=== PATIENT | male | born 1975 | race Caucasian/White ===

== ENCOUNTER 2017-04-12 05:47 | Observation (INO) | payer BC, MEDICAID ==
[~2017-04-12] VITALS: Ht 177.8 cm; Wt 92.0 kg
[2017-04-12] VITALS (8 sets, daily range): BP systolic 109–138; BP diastolic 68–89; PULSE 71–97; RESP 16–20; TEMP 98.1–98.9; O2SAT 93–96
--- NOTE | 2017-04-12 06:11 | PD ---
HPI Chief Complaint: Chest Pain Time Seen by Provider: 05:58 Travel History International Travel<30 days: No Contact w/Intl Traveler<30days: No Traveled to known affect area: No History of Present Illness HPI This patient complains of chest pain. Duration 24 hours. It's constant and right sided and feels like an ache and a squeeze. Is not exertional. He has had a productive cough for 2 weeks. He is not short of breath. No fever. Denies injury. Denies history of cardiac disease. Severity symptoms is moderate. No alleviating factors. No exacerbating factors. PFSH Past Medical History Asthma: Yes Diminished Hearing: No Past Surgical History Surgical History: No Previous Surgery Social History Alcohol Use: No Tobacco Use: Yes (OCC CIGARS ) Substance Use: No Allergies-Medications (Allergen,Severity, Reaction): Coded Allergies: No Known Allergies (Unverified , 04/12/17) Reported Meds & Prescriptions Reported Meds & Active Scripts Active No Active Prescriptions or Reported Medications Review of Systems General / Constitutional: No: Fever Eyes: No: Visual changes HENT: No: Headaches Cardiovascular: Positive: Chest Pain or Discomfort Respiratory: Positive: Cough, No: Shortness of Breath Gastrointestinal: No: Abdominal Pain Genitourinary: No: Dysuria Musculoskeletal: No: Pain Skin: No Rash Neurologic: No: Weakness Psychiatric: No: Depression Endocrine: No: Polydipsia Hematologic/Lymphatic: No: Easy Bruising Physical Exam Narrative GENERAL: Well-nourished, well-developed patient in no apparent distress. SKIN: Focused skin assessment reveals no rash and nodules. Skin is Warm and dry. HEAD: Atraumatic. Normocephalic. EYES: Pupils equal and round. No scleral icterus. No injection or drainage. ENT: No nasal bleeding or discharge. Mucous membranes pink and moist. NECK: Trachea midline. No JVD. CARDIOVASCULAR: Regular rate and rhythm. No murmur appreciated. RESPIRATORY: No accessory muscle use. Clear to auscultation. Breath sounds equal bilaterally. GASTROINTESTINAL: Abdomen soft, non-tender, nondistended. Hepatic and splenic margins not palpable. MUSCULOSKELETAL: No obvious deformities. No clubbing. No cyanosis. No edema. NEUROLOGICAL: Awake and alert. No obvious cranial nerve deficits. Motor grossly within normal limits. Normal speech. PSYCHIATRIC: Appropriate mood and affect; insight and judgment normal. Data Data Last Documented VS Vital Signs Date Time Temp Pulse Resp B/P (MAP) Pulse Ox O2 Delivery O2 Flow Rate FiO2 04/12/17 06:06 18 96 04/12/17 05:56 86 04/12/17 05:48 98.1 Room Air Orders Orders Electrocardiogram (04/12/17 06:04) Basic Metabolic Panel (Bmp) (04/12/17 06:04) Ckmb (Isoenzyme) Profile (04/12/17 06:04) Complete Blood Count With Diff (04/12/17 06:04) Prothrombin Time / Inr (Pt) (04/12/17 06:04) Act Partial Throm Time (Ptt) (04/12/17 06:04) Troponin I (04/12/17 06:04) Chest, Single Ap (04/12/17 06:04) Ecg Monitoring (04/12/17 06:04) Bilateral Bp Monitoring (04/12/17 06:04) Iv Access Insert/Monitor (04/12/17 06:04) Oximetry (04/12/17 06:04) Aspirin (Aspirin) (04/12/17 06:15) Sodium Chloride 0.9% Flush (Ns Flush) (04/12/17 06:15) Labs Laboratory Tests Test 04/12/17 06:15 White Blood Count 6.5 TH/MM3 Red Blood Count 5.11 MIL/MM3 Hemoglobin 14.7 GM/DL Hematocrit 41.8 % Mean Corpuscular Volume 81.8 FL Mean Corpuscular Hemoglobin 28.7 PG Mean Corpuscular Hemoglobin Concent 35.1 % Red Cell Distribution Width 13.4 % Platelet Count 226 TH/MM3 Mean Platelet Volume 7.3 FL Neutrophils (%) (Auto) 66.4 % Lymphocytes (%) (Auto) 19.6 % Monocytes (%) (Auto) 10.3 % Eosinophils (%) (Auto) 3.1 % Basophils (%) (Auto) 0.6 % Neutrophils # (Auto) 4.3 TH/MM3 Lymphocytes # (Auto) 1.3 TH/MM3 Monocytes # (Auto) 0.7 TH/MM3 Eosinophils # (Auto) 0.2 TH/MM3 Basophils # (Auto) 0.0 TH/MM3 CBC Comment DIFF FINAL Differential Comment Prothrombin Time 10.9 SEC Prothromb Time International Ratio 1.0 RATIO Activated Partial Thromboplast Time 29.3 SEC MDM Medical Decision Making Medical Screen Exam Complete: Yes Emergency Medical Condition: Yes Medical Record Reviewed: Yes Differential Diagnosis Differential diagnosis includes ME, angina, pericarditis, pleurisy, GERD, anxiety. Narrative Course I have reviewed the patient's electronic medical record. Patient is never been here before no prior EKGs to compare IV placed I reviewed the EKG which shows sinus rhythm but no ST elevation or ectopy I reviewed the chest x-ray which is normal Extended cardiac monitoring shows sinus rhythm without ectopy CBC is normal Metabolic profile pending CK pending Troponin pending Coagulation studies are normal I gave him an aspirin Case checked out to 7 AM physician will assist with disposition Diagnosis Primary Impression: Chest pain Qualified Codes: R07.9 - Chest pain, unspecified Scripts No Active Prescriptions or Reported Meds Robin Pereira MD Apr 12, 2017 06:11
[2017-04-12] MEDS ORDERED: SODIUM CHLORIDE 0.9% FLUSH 10 ML FLUSH IVF PRN (06:15)
[2017-04-12] MEDS ORDERED: ASPIRIN 325 MG TAB PO ONE (06:15)
[2017-04-12 06:24] LABS: AUTOMATED NEUTROPHIL # 4.3 TH/MM3 (1.8-7.7); BASOPHIL % 0.6 % (0.0-2.0); EOSINOPHIL # 0.2 TH/MM3 (0-0.4); EOSINOPHIL % 3.1 % (0.0-4.0); HEMATOCRIT 41.8 % (39.0-51.0); HEMO FLAGS DIFF FINAL; LYMPH % 19.6 % (9.0-44.0); LYMPHOCYTE # 1.3 TH/MM3 (1.0-4.8); MEAN CELL VOLUME 81.8 FL (80.0-100.0); MEAN CORPUSCULAR HEMOGLOBIN 28.7 PG (27.0-34.0); MEAN CORPUSCULAR HGB CONC 35.1 % (32.0-36.0); MONO % 10.3 % (0.0-8.0); NEUT % 66.4 % (16.0-70.0); PLATELET COUNT 226 TH/MM3 (150-450); RED BLOOD COUNT 5.11 MIL/MM3 (4.50-5.90); RED CELL DISTRIBUTION WIDTH 13.4 % (11.6-17.2); WHITE BLOOD COUNT 6.5 TH/MM3 (4.0-11.0)
[2017-04-12 06:33] LABS: APTT (PATIENT) 29.3 SEC (24.3-30.1); PROTHROMBIN TIME - PATIENT 10.9 SEC (9.8-11.6)
--- NOTE | 2017-04-12 06:33 | RADRPT ---
EXAM DATE/TIME: 04/12/2017 06:13 [facility] COMPARISON: No previous studies available for comparison. INDICATIONS : Chest pain. MEDICAL HISTORY : Asthma SURGICAL HISTORY : None. ENCOUNTER: Initial ACUITY: 1 day PAIN SCORE: 7/10 LOCATION: Right chest FINDINGS: A single view of the chest demonstrates the lungs to be symmetrically aerated without evidence of mas s, infiltrate or effusion. The cardiomediastinal contours are unremarkable. Osseous structures are intact. CONCLUSION: No acute disease. Terence Dominguez MD on April 12, 2017 at 6:29 Board Certified Radiologist. This report was verified electronically.
[2017-04-12 06:54] LABS: ANION GAP 5 MEQ/L (5-15); BICARBONATE 27.6 MEQ/L (21.0-32.0); BLOOD UREA NITROGEN 17 MG/DL (7-18); CHLORIDE 105 MEQ/L (98-107); GLOMERULAR FILTRATION RATE 90 ML/MIN (>89); POTASSIUM 4.3 MEQ/L (3.5-5.1); SODIUM (NA) 138 MEQ/L (136-145)
[2017-04-12 06:58] LABS: CREATINE KINASE 106 U/L (39-308)
[2017-04-12 07:10] LABS: CKMB 1.2 NG/ML (0.5-3.6)
[2017-04-12] MEDS ORDERED: KETOROLAC TROMETHAMINE 30 MG/ML (IVP) VIAL IV PUSH ONE (07:30)
--- NOTE | 2017-04-12 07:33 | PD ---
Physical Exam Date Seen by Provider: Apr 12, 2017 Time Seen by Provider: 07:00 Narrative The patient was signed out to me by Dr. Saqib becker. The patient presents with 24-hour history of right sided chest pain. The patient has a history of hyperlipidemia and is not been treated. Patient also has a strong family history for cardiac disease. Initial EKG showed what appears to be early repolarization. First set of cardiac enzymes show no evidence of acute abnormalities. Data Data Last Documented VS Vital Signs Date Time Temp Pulse Resp B/P (MAP) Pulse Ox O2 Delivery O2 Flow Rate FiO2 04/12/17 07:21 71 19 117/71 (86) 96 Room Air 04/12/17 05:48 98.1 Orders Orders Electrocardiogram (04/12/17 06:04) Basic Metabolic Panel (Bmp) (04/12/17 06:04) Ckmb (Isoenzyme) Profile (04/12/17 06:04) Complete Blood Count With Diff (04/12/17 06:04) Prothrombin Time / Inr (Pt) (04/12/17 06:04) Act Partial Throm Time (Ptt) (04/12/17 06:04) Troponin I (04/12/17 06:04) Chest, Single Ap (04/12/17 06:04) Ecg Monitoring (04/12/17 06:04) Bilateral Bp Monitoring (04/12/17 06:04) Iv Access Insert/Monitor (04/12/17 06:04) Oximetry (04/12/17 06:04) Aspirin (Aspirin) (04/12/17 06:15) Sodium Chloride 0.9% Flush (Ns Flush) (04/12/17 06:15) CKMB (04/12/17 06:15) CKMB% (04/12/17 06:15) Ketorolac Inj (Toradol Inj) (04/12/17 07:30) Labs Laboratory Tests Test 04/12/17 06:15 White Blood Count 6.5 TH/MM3 Red Blood Count 5.11 MIL/MM3 Hemoglobin 14.7 GM/DL Hematocrit 41.8 % Mean Corpuscular Volume 81.8 FL Mean Corpuscular Hemoglobin 28.7 PG Mean Corpuscular Hemoglobin Concent 35.1 % Red Cell Distribution Width 13.4 % Platelet Count 226 TH/MM3 Mean Platelet Volume 7.3 FL Neutrophils (%) (Auto) 66.4 % Lymphocytes (%) (Auto) 19.6 % Monocytes (%) (Auto) 10.3 % Eosinophils (%) (Auto) 3.1 % Basophils (%) (Auto) 0.6 % Neutrophils # (Auto) 4.3 TH/MM3 Lymphocytes # (Auto) 1.3 TH/MM3 Monocytes # (Auto) 0.7 TH/MM3 Eosinophils # (Auto) 0.2 TH/MM3 Basophils # (Auto) 0.0 TH/MM3 CBC Comment DIFF FINAL Differential Comment Prothrombin Time 10.9 SEC Prothromb Time International Ratio 1.0 RATIO Activated Partial Thromboplast Time 29.3 SEC Blood Urea Nitrogen 17 MG/DL Creatinine 0.92 MG/DL Random Glucose 109 MG/DL Calcium Level 8.7 MG/DL Sodium Level 138 MEQ/L Potassium Level 4.3 MEQ/L Chloride Level 105 MEQ/L Carbon Dioxide Level 27.6 MEQ/L Anion Gap 5 MEQ/L Estimat Glomerular Filtration Rate 90 ML/MIN Total Creatine Kinase 106 U/L Creatine Kinase MB 1.2 NG/ML Troponin I LESS THAN 0.02 NG/ML [facility] Medical Record Reviewed: Yes Supervised Visit with FERNANDO: No Differential Diagnosis Muscle skeletal pain versus GERD versus ACS Narrative Course Due to year-old male history of hyperlipidemia, family history, presents today with points of right sided chest pain. Pains been there for 24 hours. EKG shows what appears to be early repolarization. Cardiac enzymes are within normal limits. I discussed with the patient the different types of chest pain. While his pain is atypical, he still has uncontrolled hyperlipidemia. Also with his family history, we will make him to the chest pain center for rule out protocol. Diagnosis Primary Impression: Chest pain Qualified Codes: R07.9 - Chest pain, unspecified Additional Impression: uncontrolled hyperlipidemia Admitting Information Admitting Physician Requests: Observation Scripts No Active Prescriptions or Reported Meds Ramy Robertson MD Apr 12, 2017 07:33
[2017-04-12] MEDS ORDERED: RESP: ALBUTEROL 2.5 MG/3 ML NEB (SCH) NEB ONE (07:45)
[2017-04-12] MEDS ORDERED: NITROGLYCERIN 0.4 MG SL 25 TABS/BTL SL PRN (08:00)
[2017-04-12] MEDS ORDERED: ACETAMINOPHEN 500 MG CPLT PO PRN (08:00)
[2017-04-12] MEDS ORDERED: ONDANSETRON HCL 4 MG/2 ML VIAL IV PUSH PRN (08:00)
[2017-04-12] MEDS ORDERED: SODIUM CHLORIDE 0.9% FLUSH 10 ML FLUSH IV FLUSH SCH (09:00)
--- NOTE | 2017-04-12 09:31 | HHI.HP ---
HPI Primary Care Physician No Primary Care Physician Chief Complaint Right sided chest pain and cough History of Present Illness 42 yo male awoke yesterday with right sided chest pain described as a 7/10 that persisted all day up till about 4 p.m. and gradually resolved. He awoke again this a.m. with the same pain an presented to the ED. He denies SOB, N&v, diaphoresis or other related symptoms. The pain is not worsened by exercise or relieved by rest. He has had a cough for the last 2-3 weeks productive of thick globby yellow sputum. His two children have also recently had a cough but on evaluation in the ED told it was "an allergy". He had had no chills or fever. 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 Review of Systems Respiratory: COMPLAINS OF: See HPI, Cough Cardiovascular: COMPLAINS OF: See HPI Musculoskeletal: COMPLAINS OF: Back pain bump on back of head Past Family Social History Allergies: Coded Allergies: No Known Allergies (Unverified , 04/12/17) Past Medical History None other than some chronic back pain due to herniated disks L4, L5 followed by a Chiropractor Past Surgical History None Reported Medications None Reported Meds & Active Scripts Active No Active Prescriptions or Reported Medications Active Ordered Medications Current Medications Medications (Trade) Dose Ordered Sig/Suzan Route Start Time Stop Time Status Last Admin (NS Flush) 2 ml UNSCH PRN IVF 04/12/17 06:15 (NS Flush) 2 ml BID IV FLUSH 04/12/17 09:00 04/12/17 08:50 (Tylenol) 500 mg Q4H PRN PO 04/12/17 08:00 (Zofran Inj) 4 mg Q6H PRN IV PUSH 04/12/17 08:00 (Nitrostat Sl) 0.4 mg Q5M PRN SL 04/12/17 08:00 (Aspirin) 325 mg DAILY PO 04/13/17 09:00 Family History Father of an OK at age 52 Mother living and well 2 brothers living and well Social History Denies alcohol, tobacco (other than an occasional cigar) and any illicit substances Works at [employer] with 2 children Physical Exam Vital Signs Vital Signs Date Time Temp Pulse Resp B/P (MAP) Pulse Ox O2 Delivery O2 Flow Rate FiO2 04/12/17 08:51 98.2 97 20 124/89 (101) 93 04/12/17 08:19 (86) 21 04/12/17 07:59 95 21 04/12/17 07:21 71 19 117/71 (86) 96 Room Air 04/12/17 06:06 18 96 04/12/17 05:56 86 04/12/17 05:48 98.1 85 16 138/84 (102) 96 Room Air Physical Exam GENERAL: WNWD SKIN: Warm and dry. extensive tattoos HEAD: Atraumatic. Normocephalic. Small lipoma like mass about 1 cm in the R occipital region. EYES: Pupils equal and round. No scleral icterus. No injection or drainage. ENT: No nasal bleeding or discharge. Mucous membranes pink and moist. NECK: Trachea midline. No JVD. CARDIOVASCULAR: Regular rate and rhythm. RESPIRATORY: No accessory muscle use. Inspiration slightly coarse to auscultation. Breath sounds equal bilaterally. No rales or wheezes but ? slight rhonchi toward bases. GASTROINTESTINAL: Abdomen soft, non-tender, nondistended. Hepatic and splenic margins not palpable. MUSCULOSKELETAL: Extremities without clubbing, cyanosis, or edema. No obvious deformities. NEUROLOGICAL: Awake and alert. No obvious cranial nerve deficits. Motor grossly within normal limits. Five out of 5 muscle strength in the arms and legs. Normal speech. PSYCHIATRIC: Appropriate mood and affect; insight and judgment normal. Laboratory Laboratory Tests Test 04/12/17 06:15 White Blood Count 6.5 Red Blood Count 5.11 Hemoglobin 14.7 Hematocrit 41.8 Mean Corpuscular Volume 81.8 Mean Corpuscular Hemoglobin 28.7 Mean Corpuscular Hemoglobin Concent 35.1 Red Cell Distribution Width 13.4 Platelet Count 226 Mean Platelet Volume 7.3 Neutrophils (%) (Auto) 66.4 Lymphocytes (%) (Auto) 19.6 Monocytes (%) (Auto) 10.3 Eosinophils (%) (Auto) 3.1 Basophils (%) (Auto) 0.6 Neutrophils # (Auto) 4.3 Lymphocytes # (Auto) 1.3 Monocytes # (Auto) 0.7 Eosinophils # (Auto) 0.2 Basophils # (Auto) 0.0 CBC Comment DIFF FINAL Differential Comment Prothrombin Time 10.9 Prothromb Time International Ratio 1.0 Activated Partial Thromboplast Time 29.3 Blood Urea Nitrogen 17 Creatinine 0.92 Random Glucose 109 Calcium Level 8.7 Sodium Level 138 Potassium Level 4.3 Chloride Level 105 Carbon Dioxide Level 27.6 Anion Gap 5 Estimat Glomerular Filtration Rate 90 Total Creatine Kinase 106 Creatine Kinase MB 1.2 Troponin I LESS THAN 0.02 Result Diagram: 04/12/1761404/12/17614 Imaging CXR no obvious issues Course Will RO with protocol and then ETT Consider treatment of protracted cough Recommend establishment with PCP for respiratory issues, and for bump on head. Caprini VTE Risk Assessment Caprini VTE Risk Assessment: No/Low Risk (score <= 1) Caprini Risk Assessment Model Point Value = 1 Point Value = 2 Point Value = 3 Point Value = 5 Age 41-60 Minor surgery BMI > 25 kg/m2 Swollen legs Varicose veins or History of unexplained or recurrent spontaneous Oral contraceptives or hormone replacement Sepsis (< 1 month) Serious lung disease, including pneumonia (< 1 month) Abnormal pulmonary function Acute myocardial infarction Congestive heart failure (< 1 month) History of inflammatory bowel disease Medical patient at bed rest Age 61-74 Arthroscopic surgery Major open surgery (> 45 min) Laparoscopic surgery (> 45 min) Malignancy Confined to bed (> 72 hours) Immobilizing plaster cast Central venous access Age >= 75 History of VTE Family history of VTE Factor V Leiden Prothrombin [id number] Lupus anticoagulant Anticardiolipin antibodies Elevated serum homocysteine Heparin-induced thrombocytopenia Other congenital or acquired thrombophilia Stroke (< 1 month) Elective arthroplasty Hip, pelvis, or leg fracture Acute spinal cord injury (< 1 month) Prophylaxis Regimen Total Risk Factor Score Risk Level Prophylaxis Regimen 0-1 Low Early ambulation 2 Moderate Order ONE of the following: *Sequential Compression Device (SCD) *Heparin 5000 units SQ BID 3-4 Higher Order ONE of the following medications: *Heparin 5000 units SQ TID *Enoxaparin/Lovenox 40 mg SQ daily (WT < 150 kg, CrCl > 30 mL/min) *Enoxaparin/Lovenox 30 mg SQ daily (WT < 150 kg, CrCl > 10-29 mL/min) *Enoxaparin/Lovenox 30 mg SQ BID (WT < 150 kg, CrCl > 30 mL/min) AND/OR *Sequential Compression Device (SCD) 5 or more Highest Order ONE of the following medications: *Heparin 5000 units SQ TID (Preferred with Epidurals) *Enoxaparin/Lovenox 40 mg SQ daily (WT < 150 kg, CrCl > 30 mL/min) *Enoxaparin/Lovenox 30 mg SQ daily (WT < 150 kg, CrCl > 10-29 mL/min) *Enoxaparin/Lovenox 30 mg SQ BID (WT < 150 kg, CrCl > 30 mL/min) AND *Sequential Compression Device (SCD) Assessment and Plan Problem List: (1) Cough in adult ICD Codes: R05 - Cough Status: Acute Plan: Treat with conservative OTC but FU with PCP (2) cough (3) Chest pain ICD Codes: R07.9 - Chest pain, unspecified Status: Acute Plan: Atypical CP probably non cardiac and possibly related to protracted cough. Will evaluate with standard protocol and ETT Assessment and Plan RO with protocol if negative F"U with PCP (need to establish with new since they are not happy with current) Code Status Full code Discussed Condition With Discussed with patient and Problem Qualifiers (1) Chest pain: Qualified Codes: R07.9 - Chest pain, unspecified Mraty Faustin MD Apr 12, 2017 09:31
--- NOTE | 2017-04-12 10:31 | EKG ---
Date Performed: 04/12/2017 Time Performed: 05:58:09 PTAGE: 42 years EKG: Sinus rhythm POSSIBLE RIGHT VENTRICULAR CONDUCTION DELAY ST ELEVATION, PROBABLY EARLY REPOLARIZATION BORDERLINE E CG NO PREVIOUS TRACING DOCTOR: Marty Faustin Interpretating Date/Time 04/12/2017 10:30:57
[2017-04-12 11:18] LABS: CREATINE KINASE 81 U/L (39-308)
[2017-04-12 12:58] LABS: CREATINE KINASE 79 U/L (39-308)
--- NOTE | 2017-04-12 14:56 | HHI.DCPOC ---
Discharge Care Plan Diagnosis: (1) Chest pain (2) Cough in adult Additional Problems Chest pain not of cardiac origin Cough Goals to Promote Your Health * To prevent worsening of your condition and complications * To maintain your health at the optimal level Directions to Meet Your Goals Take your medications as prescribed Follow your dietary instruction Follow activity as directed Keep your appointments as scheduled If you are not satisfied with current physician you need to extablish with another primary doctor who you are comfortable with. Take your immunizations and boosters as scheduled If your symptoms worsen call your PCP, if no PCP go to Urgent Care Center or Emergency Room Smoking is Dangerous to Your Health. Avoid second hand smoke Call the 24-hour hour crisis hotline for domestic abuse at Marty Faustin MD Apr 12, 2017 14:56
--- NOTE | 2017-04-12 15:02 | EKG ---
Date Performed: 04/12/2017 Time Performed: 09:05:24 PTAGE: 42 years EKG: Sinus rhythm POSSIBLE RIGHT VENTRICULAR CONDUCTION DELAY ABNORMAL ECG NO SIG CHANGE NO PREVIOUS TRACING DOCTOR: Marty Faustin Interpretating Date/Time 04/12/2017 15:01:00
--- NOTE | 2017-04-12 15:17 | HHI.DCPOC ---
Discharge Care Plan Diagnosis: (1) Cough in adult Goals to Promote Your Health * To prevent worsening of your condition and complications * To maintain your health at the optimal level Directions to Meet Your Goals Take your medications as prescribed Follow your dietary instruction Follow activity as directed Keep your appointments as scheduled Take your immunizations and boosters as scheduled If your symptoms worsen call your PCP, if no PCP go to Urgent Care Center or Emergency Room Smoking is Dangerous to Your Health. Avoid second hand smoke Call the 24-hour hour crisis hotline for domestic abuse at Kaylie Garcia Apr 12, 2017 15:17
--- NOTE | 2017-04-12 16:34 | TR ---
Date Performed: 04/12/2017 Time Performed: 13:56:36 DOCTOR: Marty Faustin DRUG LIST: CLINICAL HISTORY: REASON FOR TEST: Chest pain / UNCONTROLLED HYPERLIPIDEMIA REASON FOR ENDING: OBSERVATION: CONCLUSION: Milton protocol completed. Stopped sec to exceeding target heart rate and leg fatigue . Maximum ID=[id number] Target HR Achieved=95.0% Maximum MJ=547/86 Total Exercise Time=9:38. No reprod chest pain. No ectopy. No st segment changes to sugg ischemia. Normal bp response. Great exercise toleranc e. Recovery quick and unremarkable. COMMENTS: Patient exercised using the [place] protocol. No electrocardiographic changes were seen to suggest ischemia. Hemodynamic response to exercise was normal. No significant arrhythmia was prese nt.
[2017-04-13] MEDS ORDERED: ASPIRIN 325 MG TAB PO SCH (09:00)
--- NOTE | 2017-04-13 14:37 | EKG ---
Date Performed: 04/12/2017 Time Performed: 12:30:12 PTAGE: 42 years EKG: Sinus rhythm POSSIBLE RIGHT VENTRICULAR CONDUCTION DELAY BORDERLINE ECG NO SIG CHANGE NO PREVIOUS TRACING DOCTOR: Marty Faustin Interpretating Date/Time 04/13/2017 14:36:04
== END 2017-04-12 15:35 | disposition home or self-care (01) ==
LOC: NEPE 05:47 → NEDA 07:36 → NEPGCP 08:10
PROVIDERS: ADMIT Internal Medicine Interventional Cardiology; ATTEND Internal Medicine Interventional Cardiology
DX: R07.89 Other chest pain (principal); R05 Cough; J45.909 Unspecified asthma, uncomplicated; R94.31 Abnormal electrocardiogram [ECG] [EKG]; M54.9 Dorsalgia, unspecified; G89.29 Other chronic pain; F17.290 Nicotine dependence, other tobacco product, uncomplicated
CPT/HCPCS: 71010; 80048; 82550; 82552; 84484; 85025; 85610; 85730; 93005; 93017; 94664; 96374; 99285; G0378; J1885; J7613

== ENCOUNTER 2017-04-26 12:18 | Inpatient (IN) | payer BC ==
[~2017-04-26] VITALS: Ht 177.8 cm; Wt 92.4 kg
[2017-04-26 12:19] VITALS: BP 134/78; PULSE 94; RESP 20; TEMP 99.3; O2SAT 95
[2017-04-26] MEDS ORDERED: cefTRIAXone INJ 1,000 MG in SODIUM CHLORIDE 0.9% INJ 100 ML IV ONE (12:45)
[2017-04-26] MEDS ORDERED: SODIUM CHLORIDE 0.9% FLUSH 10 ML FLUSH IVF PRN (12:45)
[2017-04-26] MEDS ORDERED: methylPREDNISolone SOD SUCC 125 MG/2 ML VIAL IV PUSH ONE (12:45)
[2017-04-26] MEDS ORDERED: AZITHROMYCIN INJ 500 MG in SODIUM CHLOR 0.9% 250 ML INJ 250 ML IV ONE (12:45)
[2017-04-26] MEDS: RESP: ALBUTEROL 2.5 MG/IPRATROPIUM 0.5 MG NEB (SCH) INH ×2 (13:01→13:02)
--- NOTE | 2017-04-26 13:09 | RADRPT ---
EXAM DATE/TIME: 04/26/2017 12:50 [facility] COMPARISON: CHEST SINGLE AP, April 12, 2017, 6:13. INDICATIONS : Chest pain. MEDICAL HISTORY : Asthma SURGICAL HISTORY : None. ENCOUNTER: Initial ACUITY: 2 weeks PAIN SCORE: 8/10 LOCATION: Right upper chest FINDINGS: Portable AP view of the chest demonstrates a normal-sized cardiac silhouette. There is opacity overly ing the right aspect of the mediastinum with mild opacity at the right lung base with likely blunting of the costophrenic sulcus. No pneumothorax is identified. Left lung is clear. Bones and soft tissue s demonstrate no acute finding. CONCLUSION: 1. Small right pleural effusion with mild atelectasis and/or consolidation at the right lung base. 2. Possible density overlying the right mediastinum which could represent airspace abnormality or pot entially a mediastinal abnormality. Given the appearance, consider chest CT with IV contrast for furt her characterization. Bienvenido Stark MD on April 26, 2017 at 13:01 Board Certified Radiologist. This report was verified electronically.
[2017-04-26 13:30] VITALS: O2SAT 98
[2017-04-26 13:37] LABS: AUTOMATED NEUTROPHIL # 4.8 TH/MM3 (1.8-7.7); BASOPHIL % 0.4 % (0.0-2.0); EOSINOPHIL # 0.1 TH/MM3 (0-0.4); EOSINOPHIL % 1.7 % (0.0-4.0); HEMATOCRIT 42.1 % (39.0-51.0); HEMO FLAGS DIFF FINAL; LYMPH % 20.6 % (9.0-44.0); LYMPHOCYTE # 1.5 TH/MM3 (1.0-4.8); MEAN CELL VOLUME 82.6 FL (80.0-100.0); MEAN CORPUSCULAR HGB CONC 33.8 % (32.0-36.0); MONO % 9.7 % (0.0-8.0); NEUT % 67.6 % (16.0-70.0); PLATELET COUNT 268 TH/MM3 (150-450); RED BLOOD COUNT 5.09 MIL/MM3 (4.50-5.90); RED CELL DISTRIBUTION WIDTH 13.8 % (11.6-17.2); WHITE BLOOD COUNT 7.1 TH/MM3 (4.0-11.0)
--- NOTE | 2017-04-26 13:47 | PD ---
HPI Chief Complaint: Respiratory Symptoms Time Seen by Provider: 12:30 Travel History International Travel<30 days: No Contact w/Intl Traveler<30days: No Traveled to known affect area: No History of Present Illness HPI So 42-year-old man, no symmetrical history, presents with several weeks' worth of worsening cough, right sided chest pain, fevers chills and night sweats, chills and shortness of breath. Was seen 2 or 3 weeks ago, right sided chest pain and some cough, had chest pain Center evaluation was negative. Seen again in urgent care and was treated with steroids for presumably bronchitis. Symptoms continued to worsen and was seen again today and has a dense right sided pneumonia. Patient with the shortness of breath, and ongoing fevers chills. History Past Medical History Medical History: Denies Significant Hx Tetanus Vaccination: < 5 Years Influenza Vaccination: No Social History Alcohol Use: No Tobacco Use: No Allergies-Medications (Allergen,Severity, Reaction): Coded Allergies: No Known Allergies (Unverified , 04/12/17) Reported Meds & Prescriptions Reported Meds & Active Scripts Active Reported [no active meds] Review of Systems Except as stated in HPI: all other systems reviewed are Neg Physical Exam Narrative GENERAL: Well-appearing 42-year-old man, no acute distress. SKIN: Focused skin assessment warm/dry. HEAD: Atraumatic. Normocephalic. EYES: Pupils equal and round. No scleral icterus. No injection or drainage. ENT: No nasal bleeding or discharge. Mucous membranes pink and moist. NECK: Trachea midline. No JVD. CARDIOVASCULAR: Regular rate and rhythm. No murmur appreciated. RESPIRATORY: Mild respiratory distress. Decreased breath sounds on the right. GASTROINTESTINAL: Abdomen soft, non-tender, nondistended. Hepatic and splenic margins not palpable. MUSCULOSKELETAL: No obvious deformities. No edema. NEUROLOGICAL: Awake and alert. No obvious cranial nerve deficits. Motor grossly within normal limits. Normal speech. PSYCHIATRIC: Appropriate mood and affect; insight and judgment normal. Data Data Last Documented VS Vital Signs Date Time Temp Pulse Resp B/P (MAP) Pulse Ox O2 Delivery O2 Flow Rate FiO2 04/26/17 13:30 98 Room Air 04/26/17 13:30 84 18 04/26/17 13:30 04/26/17 12:19 99.3 Orders Orders Complete Blood Count With Diff (04/26/17 12:41) Comprehensive Metabolic Panel (04/26/17 12:41) B-Type Natriuretic Peptide (04/26/17 12:41) Influenzae A/B Antigen (04/26/17 12:41) Iv Access Insert/Monitor (04/26/17 12:41) Electrocardiogram (04/26/17 12:41) Ecg Monitoring (04/26/17 12:41) Oximetry (04/26/17 12:41) Oxygen Administration (04/26/17 12:41) Chest, Single Ap (04/26/17 12:41) Sodium Chloride 0.9% Flush (Ns Flush) (04/26/17 12:45) Methylprednisolone So Succ Inj (Solumedr (04/26/17 12:45) Albuterol-Ipratropium Neb (Duoneb Neb) (04/26/17 12:45) Ceftriaxone Inj (Rocephin Inj) (04/26/17 12:45) Azithromycin Inj (Zithromax Inj) (04/26/17 12:45) Ct Thorax/ Chest W Iv Contrast (04/26/17 ) Morphine Inj (Morphine Inj) (04/26/17 14:15) Iohexol 350 Inj (Omnipaque 350 Inj) (04/26/17 14:52) Admit Order (Ed Use Only) (04/26/17 ) Labs Laboratory Tests Test 04/26/17 13:00 White Blood Count 7.1 TH/MM3 Red Blood Count 5.09 MIL/MM3 Hemoglobin 14.2 GM/DL Hematocrit 42.1 % Mean Corpuscular Volume 82.6 FL Mean Corpuscular Hemoglobin 28.0 PG Mean Corpuscular Hemoglobin Concent 33.8 % Red Cell Distribution Width 13.8 % Platelet Count 268 TH/MM3 Mean Platelet Volume 7.1 FL Neutrophils (%) (Auto) 67.6 % Lymphocytes (%) (Auto) 20.6 % Monocytes (%) (Auto) 9.7 % Eosinophils (%) (Auto) 1.7 % Basophils (%) (Auto) 0.4 % Neutrophils # (Auto) 4.8 TH/MM3 Lymphocytes # (Auto) 1.5 TH/MM3 Monocytes # (Auto) 0.7 TH/MM3 Eosinophils # (Auto) 0.1 TH/MM3 Basophils # (Auto) 0.0 TH/MM3 CBC Comment DIFF FINAL Differential Comment Blood Urea Nitrogen 18 MG/DL Creatinine 0.90 MG/DL Random Glucose 125 MG/DL Total Protein 7.1 GM/DL Albumin 3.5 GM/DL Calcium Level 8.8 MG/DL Alkaline Phosphatase 63 U/L Aspartate Amino Transf (AST/SGOT) 15 U/L Alanine Aminotransferase (ALT/SGPT) 38 U/L Total Bilirubin 0.4 MG/DL Sodium Level 138 MEQ/L Potassium Level 3.8 MEQ/L Chloride Level 104 MEQ/L Carbon Dioxide Level 26.7 MEQ/L Anion Gap 7 MEQ/L Estimat Glomerular Filtration Rate 93 ML/MIN B-Type Natriuretic Peptide 8 PG/ML MDM Medical Decision Making Medical Screen Exam Complete: Yes Emergency Medical Condition: Yes Interpretation(s) LABS: CBC is unremarkable. CMP BNP Chest x-ray: Small right pleural effusion with mild atelectasis and consolidation right lung base. Possible density overlying the right mediastinum which could represent airspace abnormality or potentially mediastinal abnormality. Differential Diagnosis Mass, pneumonia, other Narrative Course Medical decision making Initial: This a 42-year-old man who presents to the emergency department complaining of right sided chest pain., Labs, reassess. Abnormal chest x-ray. Diagnosed as pneumonia. Concern for possible mass. We'll check CT chest, labs, reassess. FINAL: CT confirms mediastinal mass. Patient be admitted for further evaluation. Diagnosis Primary Impression: Mediastinal mass Nathan Steel MD Apr 26, 2017 13:47
[2017-04-26 14:06] LABS: ALKALINE PHOSPHATASE 63 U/L (45-117); ALT (GPT) 38 U/L (12-78); ANION GAP 7 MEQ/L (5-15); AST (GOT) 15 U/L (15-37); BICARBONATE 26.7 MEQ/L (21.0-32.0); BLOOD UREA NITROGEN 18 MG/DL (7-18); CHLORIDE 104 MEQ/L (98-107); GLOMERULAR FILTRATION RATE 93 ML/MIN (>89); POTASSIUM 3.8 MEQ/L (3.5-5.1); SODIUM (NA) 138 MEQ/L (136-145); TOTAL BILIRUBIN ADULT 0.4 MG/DL (0.2-1.0)
[2017-04-26] MEDS ORDERED: MORPHINE SULFATE 4 MG/ML INJ IV PUSH ONE (14:15)
[2017-04-26] MEDS ORDERED: IOHEXOL 350 MG/ML 10 ML VIAL (for RAD DIAG) IVCONTRAST ONE (14:52)
--- NOTE | 2017-04-26 15:29 | RADRPT ---
EXAM DATE/TIME: 04/26/2017 14:38 [facility] COMPARISON: No previous studies available for comparison. INDICATIONS : Worsening cough, right side chest pain, shortness of breath. IV CONTRAST: 70 cc Omnipaque 350 (iohexol) IV RADIATION DOSE: 6.05 CTDIvol (mGy) MEDICAL HISTORY : Cardiovascular disease. Hypertension. SURGICAL HISTORY : None. ENCOUNTER: Initial ACUITY: 2 days PAIN SCALE: 4/10 LOCATION: Right chest TECHNIQUE: Volumetric scanning of the chest was performed. Using automated exposure control and adjustment of t he mA and/or kV according to patient size, radiation dose was kept as low as reasonably achievable to obtain optimal diagnostic quality images. DICOM format image data is available electronically for review and comparison. Follow-up recommendations for detected pulmonary nodules are based at a minimum on nodule size and pa tient risk factors according to Fleischner Society Guidelines. FINDINGS: LUNGS: Moderately large right-sided effusion with concomitant atelectatic changes. There appear to be pleura l-based nodules in the region of the right sided effusion posteriorly and medially. Left lung is nusrat sly clear. PLEURA: Moderately large right-sided effusion with concomitant atelectatic changes. MEDIASTINUM: Very large 7.6 x 14.2 x 7.0 cm anterior mediastinal mass lesion with extension into the prevascular s pace. Additional nodes are seen at the right cardiophrenic angle AXILLAE: Within normal limits. No lymphadenopathy. SKELETAL: Within normal limits for patient age. MISCELLANEOUS: The visualized upper abdominal organs demonstrate no acute abnormality. CONCLUSION: 1. Very large anterior mediastinal mass lesion measuring 7.6 x 14.2 x 7.0 cm. Differential diagnosis includes lymphoma or possible a thymic tumor. 2. However, there also abnormal nodules/lymph nodes in the right cardiophrenic angle as well as pleur al based nodules posteriorly and medially in the right hemithorax with associated moderate effusion. I believe findings are most characteristic of a lymphomatous type process. 3. Left lung is clear Alonso Leonardo MD on April 26, 2017 at 15:11 Board Certified Radiologist. This report was verified electronically.
[2017-04-26] MEDS ORDERED: [UNRECOGNIZED DRUG - REMARK] (15:49)
[2017-04-26] MEDS ORDERED: SODIUM CHLORIDE 0.9% FLUSH 10 ML FLUSH IV FLUSH PRN (16:00)
[2017-04-26] MEDS ORDERED: NALOXONE HCL 0.4 MG/ML AMP IV PUSH PRN (16:00)
[2017-04-26] MEDS ORDERED: ONDANSETRON HCL 4 MG/2 ML VIAL IVP PRN (16:00)
[2017-04-26] MEDS ORDERED: MAGNESIUM HYDROXIDE SUSP 30 ML CUP PO PRN (16:00)
[2017-04-26] MEDS ORDERED: LACTULOSE SYRUP 20 GM/30 ML CUP PO PRN (16:00)
[2017-04-26] MEDS ORDERED: SENNOSIDES 8.6 MG TAB PO PRN (16:00)
[2017-04-26] MEDS ORDERED: BISACODYL 10 MG SUPP RECTAL PRN (16:00)
[2017-04-26 16:49] VITALS: BP 124/78; PULSE 84; RESP 18; O2SAT 96
--- NOTE | 2017-04-26 16:52 | HHI.HP ---
HPI Service [facility] Primary Care Physician No Primary Care Physician Admission Diagnosis mediastinal mass Diagnoses: Chief Complaint: Worsening cough, right-sided chest pain, fevers, night sweats Travel History International Travel<30 Days: No Contact w/Intl Traveler <30 Da: No Traveled to Known Affected Are: No Sepsis Criteria SIRS Criteria (2 or more): Heart rate over 90 History of Present Illness Written by Mar Rojas, acting as scribe for Dr. Garrett on 04/26/17 at 16: 37. Patient is a 42-year-old male with primary medical history of asthma who came into the hospital for evaluation of worsening cough, right-sided chest pain. Patient states that it all started during Thanksgiving where in he was seen at the hospital for right-sided chest pain that radiates to his arms. Patient was worked up in the chest pain center including labs and diagnostics and they could not find anything. Patient went home and continues to have some symptoms of shortness of breath and chest pain. He was seen at urgent care center where and he was treated with azithromycin and steroids and presumed that it is bronchitis. Patient's symptom has improved however after being off of the azithromycin approximately 2 days ago he again felt short of breath with increasing cough and right-sided chest pain date radiates to his back. He thought that he is going to improve however today he felt worse and came to the hospital for further evaluation. Patient reports fevers, night sweats, chills. Did not check with thermometer. Otherwise, denies headaches, dizziness, nausea, vomiting, diarrhea, abdominal pain, dysuria. 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 Patient also states that he was tested for HIV and was negative and he started crying. When asked why he is crying he states because his friend do ask him to do be tested and he just remembered him. Review of Systems Except as stated in HPI: all other systems reviewed are Neg Past Family Social History Past Medical History Asthma Past Surgical History None Reported Medications Reported Meds & Active Scripts Active Reported [no active meds] Allergies: Coded Allergies: No Known Allergies (Unverified , 04/12/17) Active Ordered Medications Current Medications Medications (Trade) Dose Ordered Sig/Suzan Route Start Time Stop Time Status Last Admin Sodium Chloride 1,000 ml @ 100 mls/hr Q10H IV 04/26/17 15:54 (NS Flush) 2 ml UNSCH PRN IV FLUSH 04/26/17 16:00 (NS Flush) 2 ml BID IV FLUSH 04/26/17 21:00 (Zofran Inj) 4 mg Q6H PRN IVP 04/26/17 16:00 (Narcan Inj) 0.4 mg UNSCH PRN IV PUSH 04/26/17 16:00 (Milk Of Magnesia Liq) 30 ml Q12H PRN PO 04/26/17 16:00 (Senokot) 17.2 mg Q12H PRN PO 04/26/17 16:00 (Dulcolax Supp) 10 mg DAILY PRN RECTAL 04/26/17 16:00 (Lactulose Liq) 30 ml DAILY PRN PO 04/26/17 16:00 (Levaquin) 750 mg DAILY PO 04/27/17 09:00 Family History Father and grandfather of heart attack Social History Denies alcohol use Denies tobacco use Denies illicit drug use Physical Exam Vital Signs Vital Signs Date Time Temp Pulse Resp B/P (MAP) Pulse Ox O2 Delivery O2 Flow Rate FiO2 04/26/17 13:30 98 Room Air 04/26/17 13:30 84 18 98 Room Air 04/26/17 13:30 98 04/26/17 12:19 99.3 94 20 134/78 (96) 95 Room Air Physical Exam GENERAL: This is a well-nourished, well-developed patient, in no apparent distress. SKIN:Cool and dry. HEAD: Normocephalic. No temporal or scalp tenderness. EYES: Pupils equal round and reactive. Extraocular motions intact. No scleral icterus. No injection or drainage. ENT: Nose without bleeding. Throat without erythema. Uvula midline. Airway patent. NECK: Trachea midline. CARDIOVASCULAR: Regular rate and rhythm without murmurs, gallops, or rubs. RESPIRATORY: Diminished right base. Minimal wheeze. GASTROINTESTINAL: Abdomen soft, non-tender, nondistended. No guarding. Bowel sounds active 4. MUSCULOSKELETAL: Extremities without clubbing, cyanosis, or edema. No joint tenderness, effusion, or edema noted. No calf tenderness. Negative Homans sign bilaterally. NEUROLOGICAL: Awake and alert. Cranial nerves II through XII intact. Motor and sensory grossly within normal limits. Five out of 5 muscle strength in all muscle groups. Normal speech. Laboratory Laboratory Tests Test 04/26/17 13:00 White Blood Count 7.1 Red Blood Count 5.09 Hemoglobin 14.2 Hematocrit 42.1 Mean Corpuscular Volume 82.6 Mean Corpuscular Hemoglobin 28.0 Mean Corpuscular Hemoglobin Concent 33.8 Red Cell Distribution Width 13.8 Platelet Count 268 Mean Platelet Volume 7.1 Neutrophils (%) (Auto) 67.6 Lymphocytes (%) (Auto) 20.6 Monocytes (%) (Auto) 9.7 Eosinophils (%) (Auto) 1.7 Basophils (%) (Auto) 0.4 Neutrophils # (Auto) 4.8 Lymphocytes # (Auto) 1.5 Monocytes # (Auto) 0.7 Eosinophils # (Auto) 0.1 Basophils # (Auto) 0.0 CBC Comment DIFF FINAL Differential Comment Blood Urea Nitrogen 18 Creatinine 0.90 Random Glucose 125 Total Protein 7.1 Albumin 3.5 Calcium Level 8.8 Alkaline Phosphatase 63 Aspartate Amino Transf (AST/SGOT) 15 Alanine Aminotransferase (ALT/SGPT) 38 Total Bilirubin 0.4 Sodium Level 138 Potassium Level 3.8 Chloride Level 104 Carbon Dioxide Level 26.7 Anion Gap 7 Estimat Glomerular Filtration Rate 93 B-Type Natriuretic Peptide 8 Date/Time Source Procedure Growth Status 04/26/17 13:00 Nasal Washing Influenza Types A,B Antigen (BRITTANI) - Final NEGATIVE FOR FLU A AND B ANTIGEN.... Complete Result Diagram: 04/26/17 1300 04/26/17 1300 Imaging Last Impressions Chest X-Ray 04/26/17 1241 Signed Impressions: Service Date/Time: Wednesday, April 26, 2017 12:50 - CONCLUSION: 1. Small right pleural effusion with mild atelectasis and/or consolidation at the right lung base. 2. Possible density overlying the right mediastinum which could represent airspace abnormality or potentially a mediastinal abnormality. Given the appearance, consider chest CT with IV contrast for further characterization. Bienvenido Stark MD Chest CT 04/26/17 0000 Signed Impressions: Service Date/Time: Wednesday, April 26, 2017 14:38 - CONCLUSION: 1. Very large anterior mediastinal mass lesion measuring 7.6 x 14.2 x 7.0 cm. Differential diagnosis includes lymphoma or possible a thymic tumor. 2. However, there also abnormal nodules/lymph nodes in the right cardiophrenic angle as well as pleural based nodules posteriorly and medially in the right hemithorax with associated moderate effusion. I believe findings are most characteristic of a lymphomatous type process. 3. Left lung is clear MD Alyssia Minaya VTE Risk Assessment Caprini VTE Risk Assessment: Mod/High Risk (score >= 2) Caprini Risk Assessment Model Point Value = 1 Point Value = 2 Point Value = 3 Point Value = 5 Age 41-60 Minor surgery BMI > 25 kg/m2 Swollen legs Varicose veins or History of unexplained or recurrent spontaneous Oral contraceptives or hormone replacement Sepsis (< 1 month) Serious lung disease, including pneumonia (< 1 month) Abnormal pulmonary function Acute myocardial infarction Congestive heart failure (< 1 month) History of inflammatory bowel disease Medical patient at bed rest Age 61-74 Arthroscopic surgery Major open surgery (> 45 min) Laparoscopic surgery (> 45 min) Malignancy Confined to bed (> 72 hours) Immobilizing plaster cast Central venous access Age >= 75 History of VTE Family history of VTE Factor V Leiden Prothrombin [id number] Lupus anticoagulant Anticardiolipin antibodies Elevated serum homocysteine Heparin-induced thrombocytopenia Other congenital or acquired thrombophilia Stroke (< 1 month) Elective arthroplasty Hip, pelvis, or leg fracture Acute spinal cord injury (< 1 month) Prophylaxis Regimen Total Risk Factor Score Risk Level Prophylaxis Regimen 0-1 Low Early ambulation 2 Moderate Order ONE of the following: *Sequential Compression Device (SCD) *Heparin 5000 units SQ BID 3-4 Higher Order ONE of the following medications: *Heparin 5000 units SQ TID *Enoxaparin/Lovenox 40 mg SQ daily (WT < 150 kg, CrCl > 30 mL/min) *Enoxaparin/Lovenox 30 mg SQ daily (WT < 150 kg, CrCl > 10-29 mL/min) *Enoxaparin/Lovenox 30 mg SQ BID (WT < 150 kg, CrCl > 30 mL/min) AND/OR *Sequential Compression Device (SCD) 5 or more Highest Order ONE of the following medications: *Heparin 5000 units SQ TID (Preferred with Epidurals) *Enoxaparin/Lovenox 40 mg SQ daily (WT < 150 kg, CrCl > 30 mL/min) *Enoxaparin/Lovenox 30 mg SQ daily (WT < 150 kg, CrCl > 10-29 mL/min) *Enoxaparin/Lovenox 30 mg SQ BID (WT < 150 kg, CrCl > 30 mL/min) AND *Sequential Compression Device (SCD) Assessment and Plan Problem List: (1) Mediastinal mass ICD Code: J98.59 - Other diseases of mediastinum, not elsewhere classified Status: Acute (2) Atypical chest pain ICD Code: R07.89 - Other chest pain (3) Chest congestion ICD Code: R09.89 - Other specified symptoms and signs involving the circulatory and respiratory systems Assessment and Plan Patient is a 42-year-old male with primary medical history of asthma who came into the hospital for evaluation of worsening cough, right-sided chest pain. Suspect pneumonia, atypical Mediastinal mass - Chest x-ray showed small right pleural effusion with mild atelectasis and/ or consolidation of the right lung base. 2. Possible density overlying the right mediastinum which could represent airspace abnormality or potentially mediastinal abnormality. - CT chest showed very large anterior mediastinal mass lesion measuring 7.6 x 14.2 x 7.0 cm. Differential diagnosis includes lymphoma or possible thymic tumor. There is also abnormal nodules/lymph nodes in the right cardiophrenic angle as well as pleural-based nodules posteriorly and medially in the right hemothorax which is associated moderate effusion - Influenza negative - Consult pulmonology for further evaluation and recommendation possible biopsy - Consult oncology for further evaluation and recommendation - We'll treat possible underlying atypical pneumonia with Levaquin IV - IV steroids - Pain management IV Morphine, norco - Follow up labs in a.m. - DuoNeb scheduled and when necessary - Monitor respiratory status DVT prop SCD Code Status Full Code Discussed Condition With Patient, nursing, ED attending Physician Certification 2 Midnight Certification Type: Admission for Inpatient Services Order for Inpatient Services The services are ordered in accordance with Medicare regulations or non- Medicare payer requirements, as applicable. In the case of services not specified as inpatient-only, they are appropriately provided as inpatient services in accordance with the 2-midnight benchmark. Estimated LOS (days): 2 days is the estimated time the patient will need to remain in the hospital, assuming treatment plan goals are met and no additional complications. Post-Hospital Plan: Home Notes: This note was transcribed by angela Rojas. I, Dr. Jose Garrett personally performed the history, physical exam, and medical decision making; and confirmed the accuracy of the information in the transcribed note. Authenticated by Dr. Jose Garrett on 04/26/17 at 22:58. Mar Sanchez Apr 26, 2017 16:52 Jose Garrett MD Apr 26, 2017 22:58
[2017-04-26 18:55] VITALS: BP 127/75; PULSE 84; RESP 20; TEMP 98.9; O2SAT 91
[2017-04-26] MEDS ORDERED: DIATRIZOATE MEGLUM/DIATRIZOATE SOD 9 ML CUP PO ONE (20:00)
[2017-04-26] MEDS: SODIUM CHLOR 0.9% 1000 ML INJ 1,000 ML IV SCH (20:47)
[2017-04-26] MEDS: SODIUM CHLORIDE 0.9% FLUSH 10 ML FLUSH IV FLUSH SCH (20:48)
[2017-04-26 20:50] VITALS: BP 129/72; PULSE 97; PULSE 98; RESP 18; TEMP 98.4; O2SAT 93
--- NOTE | 2017-04-26 21:48 | MB ---
cc: VENUS STARR DATE OF CONSULTATION: 04/26/2017. REASON FOR CONSULTATION: Evaluate pleural effusion and lung mass. REQUESTING PHYSICIAN: Dr. Garrett. HISTORY OF PRESENT ILLNESS: Mr. Turner is a pleasant 42-year-old white male with history of bronchial asthma for twenty years or so. The patient was living in [place] and he was requiring an inhaler on a daily basis. He moved to [facility] four years ago and has not required inhalers. He was doing well until three weeks ago when he started having cough and right-sided chest pain. He was seen in the hospital and was worked up in the chest pain center. Work up was negative. He was sent home. His pain kept getting worse. He was seen in the urgent care center and he took a course of antibiotics with Zithromax, which did not help him and he decided to come to the hospital. He does admit to shortness of breath and pain in the right side of the back and the shoulders. He has a couple of times a low grade fever and episodes of night sweats. He denies any weight loss. No nausea or vomiting. Because of worsening of his symptoms, he came to the hospital. He had a CT scan of the chest done which shows that he has a very large mass measuring 14 x 7 x 7.6 cm in the anterior mediastinum, possible lymphoma. He also has a moderate-sized right pleural effusion. The left lung is clear. His CBC showed white blood cell count of 7.1, hemoglobin 14.2, hematocrit 42.9, MCV 82, platelet count 268,000. Sodium 130, potassium 3.8, chloride 104, carbon dioxide 26, BUN 18, creatinine 0.9, calcium 8.8. PAST MEDICAL HISTORY: 1. History of asthma. MEDICATIONS: He is currently takin. Levaquin 750 milligrams a day. 2. Zofran PRN. ALLERGIES: NO KNOWN DRUG ALLERGIES. SOCIAL HISTORY: He smokes off and on cigars. No alcohol or drug abuse. He works at a [employer]. He deals with [employer]. He uses a respirator. FAMILY HISTORY: Negative. He has three daughters. The father at age 46 with a heart attack. Brother and sisters are healthy. REVIEW OF SYSTEMS: He lost some weight before on his own and he has gained it back. No fever or chills or night sweats. No DVT or pulmonary embolism. No seizure, stroke or epilepsy. PHYSICAL EXAMINATION: GENERAL: A well-built and well-nourished male not in any acute distress. VITAL SIGNS: His blood pressure is 124/78, heart rate 84, respirations 18, temperature 99.3. HEAD, EYES, EARS, NOSE, THROAT: Pupils are equal and reactive to light. Oral mucosa and nasal mucosa are normal. NECK: The neck is supple. JVP not raised. CHEST: He has dull percussion and decreased breath sounds on the right side. CARDIOVASCULAR: S1-S2 normal. ABDOMEN: The abdomen is soft, nontender and nondistended. Bowel sounds are present. EXTREMITIES: No edema. IMPRESSION: 1. Large anterior mediastinal mass concerning for lymphoma. 2. A moderate-sized right pleural effusion. 3. History of bronchial asthma. PLAN: I discussed with the patient and his we will get an ultrasound-guided right thoracentesis both diagnostic and therapeutic. If the pleural fluid is nondiagnostic, he will need a CT-guided lung biopsy. Further treatment will depend on the course in the hospital. Thank you, Dr. Garrett, for this consult. MD MAMIE Chavira/TRAVIS /5:56 PM /9:24 PM [id number]
--- NOTE | 2017-04-26 22:16 | MB ---
cc: JACKSON SINGH M.D. DATE OF CONSULTATION: 04/26/2017. REASON FOR CONSULTATION: Consult requested by hospitalist for evaluation of mediastinal mass and a right pleural effusion. HISTORY OF PRESENT ILLNESS: Ronnell is a pleasant 42-year-old male. He is without any significant past medical history. He was in his usual status of health up until the day after when he started having right-sided chest pain. He came into the emergency room at [facility] on April 12. He was complaining of right-sided chest pain radiating to the right arm with numbness. He was evaluated by Dr. Faustin in the chest center. Cardiac chest pain was ruled out. He was advised to be followed by his primary physician. He was told that his chest pain was due to the cough and he was advised to take Mucinex. The patient continues to have the same symptoms of cough and right-sided chest pain. Last Saturday when he went to the walk-in urgent care center, he was evaluated by the physician who thought that he has bronchitis and x-rays were done. He was given a steroid. The patient stated that with the steroid he felt better but then for the last day or so he again had the same symptoms and it was getting worse. He decided to go to the urgent care center again. Today they did a chest x-ray and he was told that he has bad pneumonia and needed to come to the emergency room to be admitted to the hospital. When the patient came into the emergency room, he had a chest x-ray done which shows a small right pleural effusion with mild atelectasis and consolidation of the right lung base. There was also a density noted in the right mediastinum and a CT scan of the chest was recommended. The patient had a CT scan of the chest which shows a 14.2 x 7.6 x 7 cm very large anterior mediastinal mass with extension into the pre-vascular space. Additional nodes are seen in the right costophrenic angle. There is also a moderately large right sided effusion noted with concomitant atelectasis. There appeared to be pleural-based nodules in the region of the right sided effusion posteriorly and medially. The left lung is grossly clear. The patient is now admitted to the hospital. Pulmonary and oncology has been consulted for further evaluation. The patient recently saw Dr. Aleman, coin counter and wrapper, who had ordered ultrasound-guided thoracentesis of the right pleural effusion. The patient has been complaining of night sweats and on and off fever. He denies any weight loss. He has been complaining of right-sided chest pain which is going into the back and also into the right arm. The rest of the review of systems is negative. PAST MEDICAL HISTORY: 1. Asthma. 2. Herniated disc. PAST SURGICAL HISTORY: None. ALLERGIES: None. MEDICATIONS PRIOR TO COMING TO THE HOSPITAL: A steroid Dosepack. FAMILY HISTORY: Father from [place]. Mother is alive and well. The patient has three brothers, one sister, three daughters, no sons all alive and well. SOCIAL HISTORY: The patient is , lives with his , does not smoke cigarettes, does not drink alcohol. He works for a [employer] company for the last four years. He states that he wears a respirator at work. PHYSICAL EXAMINATION: GENERAL: This is a well-developed, anxious white male in no apparent distress VITAL SIGNS: Temperature is 98.9, heart rate is 84, blood pressure 127/75, oxygen saturation is 91% on room air. HEAD, EYES, EARS, NOSE, THROAT: Pupils equal, round and reactive to light and accommodation. Extraocular muscles intact. Anicteric. No oral lesions are noted. NECK: The neck is supple. LYMPHATIC: There is no cervical, supraclavicular, axillary lymphadenopathy noted. LUNGS: Decreased breath sounds at the right side. The left side is clear. HEART: Regular rate and rhythm. ABDOMEN: Abdomen soft and nontender. No hepatosplenomegaly. EXTREMITIES: No pedal edema. NEUROLOGIC: Awake, alert, oriented x3. SKIN: No significant lesions are noted. ASSESSMENT: 1. A very large 14.2 cm mediastinal mass. The differential diagnosis is lymphoma versus thymoma versus extragonadal germ cell tumor. 2. Moderate right pleural effusion. PLAN: I have reviewed his available records and I had an extensive discussion with the patient and his regarding the chest x-ray and CT scan findings. I reviewed the CT scan films on the electronic medical record. Both and the patient on looking at the CT scan, they were in shock knowing the size of the tumor. We also reviewed that he has a right moderate pleural effusion. Dr. Aleman has recommended diagnostic and therapeutic ultrasound-guided thoracentesis which hopefully will be done tomorrow. My recommendation is to get the CT scan of the abdomen and pelvis to evaluate for any other lesions. I have also recommended to check the tumor markers such as alpha-fetoprotein, beta HCG, CA 19-9, CEA, LDH and PSA. Depending on the CT scan of the abdomen and pelvis findings and the tumor markers, will decide about the core needle biopsy with interventional radiology. Further recommendations will be based on his hospital stay. The patient and his both have asked several questions and these were answered to their satisfaction. Thank you for asking my opinion. MD FRANKLIN Torres/TRAVIS /7:19 PM /9:52 PM MTDD
[2017-04-26] MEDS: MORPHINE SULFATE 4 MG/ML INJ IV PRN (23:02)
[2017-04-27] VITALS (7 sets, daily range): BP systolic 121–143; BP diastolic 63–90; PULSE 80–87; RESP 12–20; TEMP 97.6–98.6; O2SAT 92–96
[2017-04-27] MEDS: SODIUM CHLOR 0.9% 1000 ML INJ 1,000 ML IV SCH ×2 (01:54→21:03)
--- NOTE | 2017-04-27 07:47 | HHI.PR ---
Subjective Remarks The margin of the bed with complaints of chest pain with deep inspiration. Coughing but no bloody in it. No fever or chills overnight. Appetite is fairly well controlled. Nausea vomiting diarrhea constipation. Objective Vitals Vital Signs Date Time Temp Pulse Resp B/P (MAP) Pulse Ox O2 Delivery O2 Flow Rate FiO2 04/27/17 05:31 98.5 84 19 126/79 (95) 93 04/27/17 00:00 97.6 87 18 133/63 (86) 92 04/26/17 20:50 98.4 97 18 129/72 (91) 93 04/26/17 20:50 98 04/26/17 18:55 98.9 84 20 127/75 (92) 91 04/26/17 16:49 84 18 124/78 (93) 96 Room Air 04/26/17 13:30 98 Room Air 04/26/17 13:30 84 18 98 Room Air 04/26/17 13:30 98 04/26/17 12:19 99.3 94 20 134/78 (96) 95 Room Air I/O 04/26/17 04/26/17 04/26/17 04/27/17 04/27/17 04/27/17 07:00 15:00 23:00 07:00 15:00 23:00 Intake Total 350 ml Balance 350 ml Intake IV Total 350 ml # Voids 2 Result Diagram: 04/26/17 1300 04/26/17 1300 Imaging Last Impressions Chest X-Ray 04/26/17 1241 Signed Impressions: Service Date/Time: Wednesday, April 26, 2017 12:50 - CONCLUSION: 1. Small right pleural effusion with mild atelectasis and/or consolidation at the right lung base. 2. Possible density overlying the right mediastinum which could represent airspace abnormality or potentially a mediastinal abnormality. Given the appearance, consider chest CT with IV contrast for further characterization. Bienvenido Stark MD Chest CT 04/26/17 0000 Signed Impressions: Service Date/Time: Wednesday, April 26, 2017 14:38 - CONCLUSION: 1. Very large anterior mediastinal mass lesion measuring 7.6 x 14.2 x 7.0 cm. Differential diagnosis includes lymphoma or possible a thymic tumor. 2. However, there also abnormal nodules/lymph nodes in the right cardiophrenic angle as well as pleural based nodules posteriorly and medially in the right hemithorax with associated moderate effusion. I believe findings are most characteristic of a lymphomatous type process. 3. Left lung is clear Alonso Leonardo MD Objective Remarks GENERAL: This is a well-nourished, well-developed patient, in no apparent distress. CARDIOVASCULAR: Regular rate and rhythm without murmurs, gallops, or rubs. RESPIRATORY: Diminished right base. Minimal wheeze. GASTROINTESTINAL: Abdomen soft, non-tender, nondistended. No guarding. Bowel sounds active 4. MUSCULOSKELETAL: Extremities without clubbing, cyanosis, or edema. No joint tenderness, effusion, or edema noted. No calf tenderness. Negative Homans sign bilaterally. NEUROLOGICAL: Awake and alert. Cranial nerves II through XII intact. Motor and sensory grossly within normal limits. Five out of 5 muscle strength in all muscle groups. Normal speech. A/P Problem List: (1) Mediastinal mass ICD Code: J98.59 - Other diseases of mediastinum, not elsewhere classified Status: Acute (2) Atypical chest pain ICD Code: R07.89 - Other chest pain (3) Chest congestion ICD Code: R09.89 - Other specified symptoms and signs involving the circulatory and respiratory systems Assessment and Plan Patient is a 42-year-old male with primary medical history of asthma who came into the hospital for evaluation of worsening cough, right-sided chest pain. Suspect pneumonia, atypical Mediastinal mass Chest x-ray showed small right pleural effusion with mild atelectasis and/or consolidation of the right lung base. 2. Possible density overlying the right mediastinum which could represent airspace abnormality or potentially mediastinal abnormality. CT chest showed very large anterior mediastinal mass lesion measuring 7.6 x 14.2 x 7.0 cm. Differential diagnosis includes lymphoma or possible thymic tumor. There is also abnormal nodules/lymph nodes in the right cardiophrenic angle as well as pleural-based nodules posteriorly and medially in the right hemothorax which is associated moderate effusion Influenza negative Consult pulmonology for further evaluation and recommendation possible biopsy. Plan for US guided right thoracentesis if pleural fluid is nondiagnostic , patient will need CT guided lung biopsy Consult oncology for further evaluation and recommendation. Plan for CT A/P, check AFP, beta HCG, CA 19-9, CEA, LDH and PSA We'll treat possible underlying atypical pneumonia with Levaquin IV antibiotic IV steroids Pain management IV Morphine, norco Follow up labs in a.m. DuoNeb scheduled and when necessary Monitor respiratory status DVT prophylaxis SCD Code Status Full Code Discussed Condition With Patient, nurse Discharge: Improved and cleared by consultants. Patient needs diagnostic and therapeutic thoracentesis and possible CT-guided biopsy of lung mass Adele Lares MD Apr 27, 2017 07:47
[2017-04-27 07:48] LABS: AUTOMATED NEUTROPHIL # 11.1 TH/MM3 (1.8-7.7); BASOPHIL % 0.1 % (0.0-2.0); HEMATOCRIT 40.4 % (39.0-51.0); HEMO FLAGS DIFF FINAL; LYMPHOCYTE # 0.9 TH/MM3 (1.0-4.8); MEAN CELL VOLUME 83.1 FL (80.0-100.0); MEAN CORPUSCULAR HEMOGLOBIN 27.8 PG (27.0-34.0); MEAN CORPUSCULAR HGB CONC 33.5 % (32.0-36.0); MONO % 5.5 % (0.0-8.0); NEUT % 87.4 % (16.0-70.0); PLATELET COUNT 260 TH/MM3 (150-450); RED BLOOD COUNT 4.86 MIL/MM3 (4.50-5.90); RED CELL DISTRIBUTION WIDTH 13.8 % (11.6-17.2); WHITE BLOOD COUNT 12.7 TH/MM3 (4.0-11.0)
[2017-04-27 07:54] LABS: APTT (PATIENT) 24.4 SEC (24.3-30.1); PROTHROMBIN TIME - PATIENT 10.4 SEC (9.8-11.6)
[2017-04-27 08:18] LABS: ANION GAP 8 MEQ/L (5-15); AST (GOT) 13 U/L (15-37); BICARBONATE 26.4 MEQ/L (21.0-32.0); BLOOD UREA NITROGEN 15 MG/DL (7-18); CHLORIDE 103 MEQ/L (98-107); GLOMERULAR FILTRATION RATE 108 ML/MIN (>89); LDH SERUM 262 U/L (87-241); POTASSIUM 3.8 MEQ/L (3.5-5.1); SODIUM (NA) 137 MEQ/L (136-145)
[2017-04-27 08:23] LABS: ALKALINE PHOSPHATASE 59 U/L (45-117); ALT (GPT) 38 U/L (12-78); BETA HCG TUMOR MARKER LESS THAN 1 MIU/ML (0-5); TOTAL BILIRUBIN ADULT 0.4 MG/DL (0.2-1.0)
[2017-04-27] MEDS: LEVOFLOXACIN 750 MG TAB PO SCH (08:32)
[2017-04-27] MEDS: SODIUM CHLORIDE 0.9% FLUSH 10 ML FLUSH IV FLUSH SCH ×2 (08:32→21:03)
[2017-04-27] MEDS: MORPHINE SULFATE 4 MG/ML INJ IV PRN ×2 (10:56→18:07)
--- NOTE | 2017-04-27 11:02 | PD.ONC.PN ---
Subjective Subjective Remarks Afebrile overnight. patient resting in bed. He had a difficult time sleeping last night due to the noise in the hospital and frequent monitoring from nurses. He is also very anxious about finding out about the mass in his chest. Objective Data Date Time Temp Pulse Resp B/P (MAP) Pulse Ox O2 Delivery O2 Flow Rate FiO2 04/27/17 08:30 97.7 80 16 135/86 (102) 94 04/27/17 05:31 98.5 84 19 126/79 (95) 93 04/27/17 00:00 97.6 87 18 133/63 (86) 92 04/26/17 20:50 98.4 97 18 129/72 (91) 93 04/26/17 20:50 98 04/26/17 18:55 98.9 84 20 127/75 (92) 91 04/26/17 16:49 84 18 124/78 (93) 96 Room Air 04/26/17 13:30 98 Room Air 04/26/17 13:30 84 18 98 Room Air 04/26/17 13:30 98 04/26/17 12:19 99.3 94 20 134/78 (96) 95 Room Air Result Diagram: 04/27/17 0611 04/27/17 0611 Laboratory Results Laboratory Tests Test 04/26/17 13:00 04/27/17 06:11 White Blood Count 7.1 TH/MM3 12.7 TH/MM3 Red Blood Count 5.09 MIL/MM3 4.86 MIL/MM3 Hemoglobin 14.2 GM/DL 13.5 GM/DL Hematocrit 42.1 % 40.4 % Mean Corpuscular Volume 82.6 FL 83.1 FL Mean Corpuscular Hemoglobin 28.0 PG 27.8 PG Mean Corpuscular Hemoglobin Concent 33.8 % 33.5 % Red Cell Distribution Width 13.8 % 13.8 % Platelet Count 268 TH/MM3 260 TH/MM3 Mean Platelet Volume 7.1 FL 7.3 FL Neutrophils (%) (Auto) 67.6 % 87.4 % Lymphocytes (%) (Auto) 20.6 % 7.0 % Monocytes (%) (Auto) 9.7 % 5.5 % Eosinophils (%) (Auto) 1.7 % 0.0 % Basophils (%) (Auto) 0.4 % 0.1 % Neutrophils # (Auto) 4.8 TH/MM3 11.1 TH/MM3 Lymphocytes # (Auto) 1.5 TH/MM3 0.9 TH/MM3 Monocytes # (Auto) 0.7 TH/MM3 0.7 TH/MM3 Eosinophils # (Auto) 0.1 TH/MM3 0.0 TH/MM3 Basophils # (Auto) 0.0 TH/MM3 0.0 TH/MM3 CBC Comment DIFF FINAL DIFF FINAL Differential Comment Blood Urea Nitrogen 18 MG/DL 15 MG/DL Creatinine 0.90 MG/DL 0.79 MG/DL Random Glucose 125 MG/DL 108 MG/DL Total Protein 7.1 GM/DL 7.4 GM/DL Albumin 3.5 GM/DL 3.4 GM/DL Calcium Level 8.8 MG/DL 8.7 MG/DL Alkaline Phosphatase 63 U/L 59 U/L Aspartate Amino Transf (AST/SGOT) 15 U/L 13 U/L Alanine Aminotransferase (ALT/SGPT) 38 U/L 38 U/L Total Bilirubin 0.4 MG/DL 0.4 MG/DL Sodium Level 138 MEQ/L 137 MEQ/L Potassium Level 3.8 MEQ/L 3.8 MEQ/L Chloride Level 104 MEQ/L 103 MEQ/L Carbon Dioxide Level 26.7 MEQ/L 26.4 MEQ/L Anion Gap 7 MEQ/L 8 MEQ/L Estimat Glomerular Filtration Rate 93 ML/MIN 108 ML/MIN B-Type Natriuretic Peptide 8 PG/ML Prothrombin Time 10.4 SEC Prothromb Time International Ratio 1.0 RATIO Activated Partial Thromboplast Time 24.4 SEC Lactate Dehydrogenase 262 U/L Uric Acid 7.9 MG/DL Tumor Marker Alpha Fetoprotein 1.7 NG/ML Carcinoembryonic Antigen 0.7 NG/ML CA 19-9 Antigen LESS THAN 1.2 U/ML Prostate Specific Antigen 0.98 NG/ML Tumor Marker HCG LESS THAN 1 MIU/ML Culture Results Microbiology Date/Time Source Procedure Growth Status 04/26/17 13:00 Nasal Washing Influenza Types A,B Antigen (BRITTANI) - Final NEGATIVE FOR FLU A AND B ANTIGEN.... Complete Imaging Studies Last 24 hours Impressions Chest X-Ray 04/26/17 1241 Signed Impressions: Service Date/Time: Wednesday, April 26, 2017 12:50 - CONCLUSION: 1. Small right pleural effusion with mild atelectasis and/or consolidation at the right lung base. 2. Possible density overlying the right mediastinum which could represent airspace abnormality or potentially a mediastinal abnormality. Given the appearance, consider chest CT with IV contrast for further characterization. Bienvenido Stark MD Administered Medications Medications (Trade) Dose Ordered Sig/Suzan Route PRN Reason Start Time Stop Time Status Last Admin Dose Admin Sodium Chloride (NS Flush) 2 ml BID IV FLUSH 04/26/17 21:00 04/27/17 08:32 Levofloxacin (Levaquin) 750 mg DAILY PO 04/27/17 09:00 04/27/17 08:32 Morphine Sulfate (Morphine Inj) 4 mg Q4H PRN IV PAIN 6-10 04/26/17 22:00 04/26/17 23:02 Objective Remarks GENERAL: Middle aged male sitting up in bed, on 2L O2 via NC SKIN: Warm and dry. HEAD: Normocephalic. EYES: No injection or drainage. NECK: Supple, trachea midline. CARDIOVASCULAR: Regular rate and rhythm RESPIRATORY: diminished at right base. occasional rhonchi. GASTROINTESTINAL: Abdomen soft, non-tender, nondistended. EXTREMITIES: No cyanosis NEUROLOGICAL: awake and alert, normal speech. moving all extremities. Assessment/Plan Problem List: (1) Mediastinal mass ICD Codes: J98.59 - Other diseases of mediastinum, not elsewhere classified Status: Acute Plan: 04/27: obtain CT ab/pelvis today. Plan for CT guided biopsy Saturday. --large 14.2 cm mediastinal mass. --differential diagnosis is lymphoma versus thymoma versus extragonadal germ cell tumor. --alpha-fetoprotein, beta HCG, CA 19-9, and PSA all WNL (2) Pleural effusion ICD Codes: J90 - Pleural effusion, not elsewhere classified Plan: --Moderate right pleural effusion. --diagnostic and therapeutic ultrasound-guided thoracentesis has been ordered. Assessment 42y/o male admitted with chest pain. Oncology consulted for evaluation of mediastinal mass and a right pleural effusion. h/o Asthma. Herniated disc. Attending Statement The exam, history, and the medical decision-making described in the above note were completed with the assistance of the mid-level provider. I reviewed and agree with the findings presented. I attest that I had a [id number] encounter with the patient on the same day, and personally performed and documented my assessment and findings in the medical record. insomnia and anxiety SOB has improved after the tap. s/p thoracentesis. 1500 ML fluid removed. all T markers are NL. CT A/P today. core bx on saturday. restoril for insomnia xanax for anxiety. d/w pt and . Doris Liu Apr 27, 2017 11:02 Grace Butler MD Apr 27, 2017 17:40
[2017-04-27 12:49] LABS: MAGNESIUM 2.2 MG/DL (1.5-2.5)
--- NOTE | 2017-04-27 13:49 | EKG ---
Date Performed: 04/26/2017 Time Performed: 13:19:50 PTAGE: 42 years EKG: Sinus rhythm POSSIBLE RIGHT VENTRICULAR CONDUCTION DELAY BORDERLINE ECG INTERPRETATION BASED ON A DEFAULT AGE OF 40 YEARS PREVIOUS TRACING 04/12/17 Compared to prior tracing no significant change DOCTOR: Lizandro Jasso Interpretating Date/Time 04/27/2017 13:49:13
--- NOTE | 2017-04-27 15:51 | RADRPT ---
EXAM DATE/TIME: 04/27/2017 15:32 [facility] COMPARISON: CHEST SINGLE AP, April 26, 2017, 12:50. INDICATIONS : Post right thoracentesis. MEDICAL HISTORY : None. SURGICAL HISTORY : None. ENCOUNTER: Initial ACUITY: 1 day PAIN SCORE: 3/10 LOCATION: Right upper chest FINDINGS: Status post right thoracentesis. No evidence of pneumothorax. There is a residual infiltrate in the r ight lower lung. This most likely atelectasis. Left lung is clear. The heart is enlarged but stable c ompared to the prior exam. CONCLUSION: No evidence of pneumothorax. Tonio Carrillo MD on April 27, 2017 at 15:48 Board Certified Radiologist. This report was verified electronically.
--- NOTE | 2017-04-27 16:01 | RADRPT ---
EXAM DATE/TIME: 04/27/2017 14:58 [facility] COMPARISON: No previous studies available for comparison. INDICATIONS : Pleural effusion. MEDICAL HISTORY : Hypertension. Neck pain. Asthma. Arthritis. Herniated disc. SURGICAL HISTORY : None. ENCOUNTER: Initial ACUITY: 1 week PAIN SCORE: 3/10 LOCATION: Right chest FLUID: Total volume of 1500 cc of cloudy, yellow fluid was removed. Fluid was sent to lab for ordered studies. TECHNIQUE: 1. Ultrasound guidance for thoracentesis. 2. Thoracentesis. The risks, benefits, and alternatives to ultrasound guided thoracentesis were explained to the patien t in lay simple terms, including the risk of bleeding and infection. Written and verbal informed con sent was obtained. Appropriate area for thoracentesis was marked under ultrasound guidance with the patient in the uprig ht position. Overlying skin was prepped and draped in the usual sterile fashion and with local anest hetic, a dermatotomy was made with an 11 blade scalpel. A 6 Greek thoracentesis catheter was placed in the pleural space and fluid was removed. Catheter was then removed and a sterile dressing applie d. There were no immediate complications. The patient tolerated the procedure well and the left the ultrasound suite in stable condition. Chest radiograph is to be obtained. CONCLUSION: Uncomplicated ultrasound guided thoracentesis. Tonio Carrillo MD on April 27, 2017 at 15:59 Board Certified Radiologist. This report was verified electronically.
[2017-04-27 17:28] LABS: TOTAL PROTEIN,PLEURAL FLUID 4.2 GM/DL
[2017-04-27 17:33] LABS: PLEURAL FLUID LYMPHS 60 %
[2017-04-27] MEDS: ALPRAZolam 0.25 MG TAB PO SCH ×2 (18:05→21:03)
[2017-04-27] MEDS: ALLOPURINOL 300 MG TAB PO SCH (18:06)
[2017-04-27] MEDS ORDERED: IOHEXOL 350 MG/ML 10 ML VIAL (for RAD DIAG) IVCONTRAST ONE (19:17)
--- NOTE | 2017-04-27 19:40 | RADRPT ---
EXAM DATE/TIME: 04/27/2017 19:18 [facility] COMPARISON: CT THORAX W CONTRAST, April 26, 2017, 14:38. INDICATIONS : Diffuse abdomen pain IV CONTRAST: 95 cc Omnipaque 350 (iohexol) IV ORAL CONTRAST: Prescribed oral contrast ingested. RADIATION DOSE: 13.02 CTDIvol (mGy) MEDICAL HISTORY : Hypertension. SURGICAL HISTORY : None. ENCOUNTER: Initial ACUITY: 1 day PAIN SCALE: 4/10 LOCATION: Bilateral abodmen TECHNIQUE: Volumetric scanning of the abdomen and pelvis was performed. Using automated exposure control and ad justment of the mA and/or kV according to patient size, radiation dose was kept as low as reasonably achievable to obtain optimal diagnostic quality images. DICOM format image data is available electro nically for review and comparison. FINDINGS: Comparison a CT from April 26. Right pleural effusion is decreased in size. No pleural-based masses in the lower right chest and abnormal lymph nodes in the right cardiophrenic angle. Small pericardia l effusion present stable to slightly increased from April 26. There is right basilar air space dis ease in the lungs mass effect is atelectasis. Left lung base demonstrates some dependent atelectasis and trace pleural fluid. No significant abnormality in the liver, spleen, adrenals, kidneys or pancreas. No calcified gallston es or biliary ductal dilatation. No free fluid. No bowel obstruction. No free air. No adenopathy. CONCLUSION: 1. No acute findings within the abdomen and pelvis. 2. Slight decrease in right pleural effusion since April 26. Pleural-based masses present at the [facility] lung base are characteristic of pleural spread of tumor. Differential diagnosis includes thymoma and lymphoma. 3. Stable to slight increase in small pericardial effusion. Kavon Green MD on April 27, 2017 at 19:31 Board Certified Radiologist. This report was verified electronically.
[2017-04-27] MEDS: TEMAZEPAM 15 MG CAP PO SCH (21:03)
[2017-04-28] VITALS (8 sets, daily range): BP systolic 115–136; BP diastolic 80–95; PULSE 73–95; RESP 16–18; TEMP 97.7–98.7; O2SAT 94–97
[2017-04-28] MEDS: ALPRAZolam 0.25 MG TAB PO SCH ×3 (06:01→21:17)
[2017-04-28] MEDS: SODIUM CHLOR 0.9% 1000 ML INJ 1,000 ML IV SCH (06:02)
[2017-04-28 06:31] LABS: AUTOMATED NEUTROPHIL # 4.3 TH/MM3 (1.8-7.7); BASOPHIL % 0.3 % (0.0-2.0); EOSINOPHIL # 0.1 TH/MM3 (0-0.4); EOSINOPHIL % 1.4 % (0.0-4.0); HEMATOCRIT 37.5 % (39.0-51.0); HEMO FLAGS DIFF FINAL; LYMPH % 28.3 % (9.0-44.0); MEAN CELL VOLUME 82.4 FL (80.0-100.0); MONO % 9.1 % (0.0-8.0); NEUT % 60.9 % (16.0-70.0); PLATELET COUNT 225 TH/MM3 (150-450); RED BLOOD COUNT 4.56 MIL/MM3 (4.50-5.90); WHITE BLOOD COUNT 7.1 TH/MM3 (4.0-11.0)
[2017-04-28 07:07] LABS: ALKALINE PHOSPHATASE 51 U/L (45-117); ALT (GPT) 30 U/L (12-78); ANION GAP 8 MEQ/L (5-15); AST (GOT) 8 U/L (15-37); BICARBONATE 25.9 MEQ/L (21.0-32.0); BLOOD UREA NITROGEN 21 MG/DL (7-18); CHLORIDE 105 MEQ/L (98-107); GLOMERULAR FILTRATION RATE 91 ML/MIN (>89); LDH SERUM 214 U/L (87-241); POTASSIUM 4.2 MEQ/L (3.5-5.1); SODIUM (NA) 139 MEQ/L (136-145); TOTAL BILIRUBIN ADULT 0.2 MG/DL (0.2-1.0); URIC ACID 5.7 MG/DL (2.6-7.2)
[2017-04-28] MEDS: ALLOPURINOL 300 MG TAB PO SCH (07:55)
[2017-04-28] MEDS: MORPHINE SULFATE 4 MG/ML INJ IV PRN ×4 (07:55→22:00)
[2017-04-28] MEDS: SODIUM CHLORIDE 0.9% FLUSH 10 ML FLUSH IV FLUSH SCH ×2 (07:55→21:11)
[2017-04-28] MEDS: LEVOFLOXACIN 750 MG TAB PO SCH (07:55)
[2017-04-28] MEDS ORDERED: MORPHINE SULFATE 2 MG/ML INJ IV PUSH ONE (08:30)
--- NOTE | 2017-04-28 09:10 | PD.ONC.PN ---
Subjective Subjective Remarks Afebrile overnight. Patient resting in bed. Slept much better last night with Restoril. Pain improved with morphine. Breathing better since thoracentesis. Objective Data Date Time Temp Pulse Resp B/P (MAP) Pulse Ox O2 Delivery O2 Flow Rate FiO2 04/28/17 08:00 94 Nasal Cannula 2.00 04/28/17 07:57 98.5 84 18 136/87 (103) 94 04/28/17 04:00 Nasal Cannula 2.00 04/28/17 04:00 97.8 73 18 115/83 (94) 97 04/28/17 00:00 98.7 74 18 127/81 (96) 94 04/28/17 00:00 Nasal Cannula 2.00 04/27/17 20:00 Nasal Cannula 2.00 04/27/17 20:00 83 04/27/17 20:00 97.9 83 20 121/85 (97) 96 04/27/17 17:57 97.9 81 12 135/90 (105) 94 04/27/17 13:19 98.6 82 12 143/88 (106) 94 04/28/17 04/28/17 04/28/17 07:00 15:00 23:00 Intake Total 873 ml Balance 873 ml Result Diagram: 04/28/1715 04/28/1715 Laboratory Results Laboratory Tests Test 04/27/17 15:25 04/28/17 05:15 Pleural Fluid pH 8.0 Pleural Fluid WBC 52716 /MM3 Pleural Fluid RBC 54458 /MM3 Pleural Fluid Neutrophils 23 % Pleural Fluid Lymphocytes 60 % Pleural Fluid Eosinophils 9 % Pleural Fluid Histiocytes 8 % Pleural Fluid Total Protein 4.2 GM/DL Pleural Fluid LDH 1006 U/L Pleural Fluid Glucose 67 MG/DL White Blood Count 7.1 TH/MM3 Red Blood Count 4.56 MIL/MM3 Hemoglobin 12.8 GM/DL Hematocrit 37.5 % Mean Corpuscular Volume 82.4 FL Mean Corpuscular Hemoglobin 28.0 PG Mean Corpuscular Hemoglobin Concent 34.0 % Red Cell Distribution Width 14.0 % Platelet Count 225 TH/MM3 Mean Platelet Volume 7.1 FL Neutrophils (%) (Auto) 60.9 % Lymphocytes (%) (Auto) 28.3 % Monocytes (%) (Auto) 9.1 % Eosinophils (%) (Auto) 1.4 % Basophils (%) (Auto) 0.3 % Neutrophils # (Auto) 4.3 TH/MM3 Lymphocytes # (Auto) 2.0 TH/MM3 Monocytes # (Auto) 0.6 TH/MM3 Eosinophils # (Auto) 0.1 TH/MM3 Basophils # (Auto) 0.0 TH/MM3 CBC Comment DIFF FINAL Differential Comment Blood Urea Nitrogen 21 MG/DL Creatinine 0.91 MG/DL Random Glucose 93 MG/DL Total Protein 6.5 GM/DL Albumin 3.0 GM/DL Calcium Level 8.2 MG/DL Uric Acid 5.7 MG/DL Alkaline Phosphatase 51 U/L Aspartate Amino Transf (AST/SGOT) 8 U/L Alanine Aminotransferase (ALT/SGPT) 30 U/L Lactate Dehydrogenase 214 U/L Total Bilirubin 0.2 MG/DL Sodium Level 139 MEQ/L Potassium Level 4.2 MEQ/L Chloride Level 105 MEQ/L Carbon Dioxide Level 25.9 MEQ/L Anion Gap 8 MEQ/L Estimat Glomerular Filtration Rate 91 ML/MIN Culture Results Microbiology Date/Time Source Procedure Growth Status 04/27/17 15:25 Fluid Pleural Fluid Fungal Smear Pending Received 04/27/17 15:25 Fluid Pleural Fluid Fungal Culture Pending Received 04/27/17 15:25 Fluid Pleural Fluid Acid Fast Stain Pending Received 04/27/17 15:25 Fluid Pleural Fluid Mycobacterial Culture Pending Received 04/27/17 15:25 Fluid Pleural Fluid Gram Stain - Final Resulted 04/27/17 15:25 Fluid Pleural Fluid Body Fluid Culture Pending Resulted 04/26/17 13:00 Nasal Washing Influenza Types A,B Antigen (BRITTANI) - Final NEGATIVE FOR FLU A AND B ANTIGEN.... Complete Administered Medications Medications (Trade) Dose Ordered Sig/Suzan Route PRN Reason Start Time Stop Time Status Last Admin Dose Admin Sodium Chloride (NS Flush) 2 ml BID IV FLUSH 04/26/17 21:00 04/27/17 21:03 Levofloxacin (Levaquin) 750 mg DAILY PO 04/27/17 09:00 04/28/17 07:55 Morphine Sulfate (Morphine Inj) 4 mg Q4H PRN IV PAIN 6-10 04/26/17 22:00 04/28/17 07:55 Allopurinol (Zyloprim) 300 mg DAILY PO 04/27/17 13:00 04/28/17 07:55 Sodium Chloride 1,000 ml @ 100 mls/hr Q10H IV 04/27/17 13:00 04/28/17 06:02 Temazepam (Restoril) 15 mg HS PO 04/27/17 21:00 04/27/17 21:03 Alprazolam (Xanax) 0.25 mg Q8HR PO 04/27/17 17:45 04/28/17 06:01 Objective Remarks GENERAL: Middle aged male sitting up in bed in nad. SKIN: Warm and dry. clean bandage left posterior thorax HEAD: Normocephalic. EYES: No injection or drainage. NECK: Supple, trachea midline. CARDIOVASCULAR: Regular rate and rhythm RESPIRATORY: Breath sounds equal bilaterally. No accessory muscle use. GASTROINTESTINAL: Abdomen soft, non-tender, nondistended. EXTREMITIES: No cyanosis NEUROLOGICAL: awake and alert, normal speech. Assessment/Plan Problem List: (1) Mediastinal mass ICD Codes: J98.59 - Other diseases of mediastinum, not elsewhere classified Status: Acute Plan: 04/28: Plan for CT guided biopsy Saturday. continue Restoril to help with sleep. xanax for anxiety. uric acid improved today. --CT ab/pelvis: no abdominal mass --large 14.2 cm mediastinal mass. --differential diagnosis is lymphoma versus thymoma versus extragonadal germ cell tumor. --alpha-fetoprotein, beta HCG, CA 19-9, and PSA all WNL (2) Pleural effusion ICD Codes: J90 - Pleural effusion, not elsewhere classified Plan: --Moderate right pleural effusion. --diagnostic and therapeutic ultrasound-guided thoracentesis has been ordered. Assessment 42y/o male admitted with chest pain. Oncology consulted for evaluation of mediastinal mass and a right pleural effusion. h/o Asthma. Herniated disc. Attending Statement The exam, history, and the medical decision-making described in the above note were completed with the assistance of the mid-level provider. I reviewed and agree with the findings presented. I attest that I had a [id number] encounter with the patient on the same day, and personally performed and documented my assessment and findings in the medical record. slept lwell last night. morphine works for right CP. CT A/P = neg for maignancy. consult IR for core needle bx of med mass. consult [facility] for possible thymoma , may need resection if bx confirms thymoma. Doris Liu Apr 28, 2017 09:10 Grace Butler MD Apr 28, 2017 17:46
--- NOTE | 2017-04-28 09:36 | HHI.PR ---
Subjective Remarks Less congested in his chest. Still coughing yellow sputum no blood in it. SOB improved after thoracentesis. No fever or chills. No nausea or vomiting no diarrhea or constipation. Objective Vitals Vital Signs Date Time Temp Pulse Resp B/P (MAP) Pulse Ox O2 Delivery O2 Flow Rate FiO2 04/28/17 07:57 98.5 84 18 136/87 (103) 94 04/28/17 04:00 Nasal Cannula 2.00 04/28/17 04:00 97.8 73 18 115/83 (94) 97 04/28/17 00:00 98.7 74 18 127/81 (96) 94 04/28/17 00:00 Nasal Cannula 2.00 04/27/17 20:00 Nasal Cannula 2.00 04/27/17 20:00 83 04/27/17 20:00 97.9 83 20 121/85 (97) 96 04/27/17 17:57 97.9 81 12 135/90 (105) 94 04/27/17 13:19 98.6 82 12 143/88 (106) 94 I/O 04/27/17 04/27/17 04/27/17 04/28/17 04/28/17 04/28/17 07:00 15:00 23:00 07:00 15:00 23:00 Intake Total 950 ml 873 ml Balance 950 ml 873 ml Intake Oral 650 ml 240 ml IV Total 300 ml 633 ml # Voids 2 4 2 # Bowel Movements 1 Result Diagram: 04/28/17 0515 04/28/17 0515 Imaging Last Impressions Thoracentesis Ultrasound 04/27/17 0000 Signed Impressions: Service Date/Time: Thursday, April 27, 2017 14:58 - CONCLUSION: Uncomplicated ultrasound guided thoracentesis. Tonio Carrillo MD Chest X-Ray 04/27/17 0000 Signed Impressions: Service Date/Time: Thursday, April 27, 2017 15:32 - CONCLUSION: No evidence of pneumothorax. Tonio Carrillo MD Chest CT 04/26/17 0000 Signed Impressions: Service Date/Time: Wednesday, April 26, 2017 14:38 - CONCLUSION: 1. Very large anterior mediastinal mass lesion measuring 7.6 x 14.2 x 7.0 cm. Differential diagnosis includes lymphoma or possible a thymic tumor. 2. However, there also abnormal nodules/lymph nodes in the right cardiophrenic angle as well as pleural based nodules posteriorly and medially in the right hemithorax with associated moderate effusion. I believe findings are most characteristic of a lymphomatous type process. 3. Left lung is clear Alonso Leonardo MD Abdomen/Pelvis CT 04/26/17 0000 Signed Impressions: Service Date/Time: Saturday, April 27, 2017 19:18 - CONCLUSION: 1. No acute findings within the abdomen and pelvis. 2. Slight decrease in right pleural effusion since April 26. Pleural-based masses present at the right lung base are characteristic of pleural spread of tumor. Differential diagnosis includes thymoma and lymphoma. 3. Stable to slight increase in small pericardial effusion. Kavon Green MD Objective Remarks GENERAL: This is a well-nourished, well-developed patient, in no apparent distress. CARDIOVASCULAR: Regular rate and rhythm without murmurs, gallops, or rubs. RESPIRATORY: Diminished right base. Minimal wheeze. GASTROINTESTINAL: Abdomen soft, non-tender, nondistended. No guarding. Bowel sounds active 4. MUSCULOSKELETAL: Extremities without clubbing, cyanosis, or edema. No joint tenderness, effusion, or edema noted. No calf tenderness. Negative Homans sign bilaterally. NEUROLOGICAL: Awake and alert. Cranial nerves II through XII intact. Motor and sensory grossly within normal limits. Five out of 5 muscle strength in all muscle groups. Normal speech. A/P Problem List: (1) Mediastinal mass ICD Code: J98.59 - Other diseases of mediastinum, not elsewhere classified Status: Acute (2) Atypical chest pain ICD Code: R07.89 - Other chest pain (3) Chest congestion ICD Code: R09.89 - Other specified symptoms and signs involving the circulatory and respiratory systems Assessment and Plan Patient is a 42-year-old male with primary medical history of asthma who came into the hospital for evaluation of worsening cough, right-sided chest pain. Suspect pneumonia, atypical Mediastinal mass Chest x-ray showed small right pleural effusion with mild atelectasis and/or consolidation of the right lung base. 2. Possible density overlying the right mediastinum which could represent airspace abnormality or potentially mediastinal abnormality. CT chest showed very large anterior mediastinal mass lesion measuring 7.6 x 14.2 x 7.0 cm. Differential diagnosis includes lymphoma or possible thymic tumor. There is also abnormal nodules/lymph nodes in the right cardiophrenic angle as well as pleural-based nodules posteriorly and medially in the right hemothorax which is associated moderate effusion Influenza negative Consult pulmonology for further evaluation and recommendation possible biopsy. S /P US guided right thoracentesis Plan for CT guided lung biopsy 04/29/17. Plan for CT guided biopsy Saturday. Consult oncology for further evaluation and recommendation. Plan for CT A/P, check AFP, beta HCG, CA 19-9, CEA, LDH and PSA Uric acid improved We'll treat possible underlying atypical pneumonia with Levaquin IV antibiotic IV steroids Pain management IV Morphine, norco Follow up labs in a.m. DuoNeb scheduled and when necessary Monitor respiratory status Restoril for insomnia DVT prophylaxis SCD Code Status Full Code Discussed Condition With Patient, nurse Discharge: DC when improved and cleared by consultants. Plan for CT-guided biopsy of lung mass on 04/29/17. Adele Lares MD Apr 28, 2017 09:36
[2017-04-28] MEDS: TEMAZEPAM 15 MG CAP PO SCH (21:17)
[2017-04-29] VITALS: BP 129/77; PULSE 88; RESP 18; TEMP 97.8; O2SAT 95
[2017-04-29] MEDS: MORPHINE SULFATE 4 MG/ML INJ IV PRN ×3 (03:54→15:59)
[2017-04-29 03:57] VITALS: BP 128/73; PULSE 78; RESP 16; TEMP 97.6; O2SAT 95
[2017-04-29] MEDS: ALPRAZolam 0.25 MG TAB PO SCH (05:01)
[2017-04-29 07:35] LABS: AUTOMATED NEUTROPHIL # 3.2 TH/MM3 (1.8-7.7); BASOPHIL % 0.5 % (0.0-2.0); EOSINOPHIL # 0.1 TH/MM3 (0-0.4); EOSINOPHIL % 1.6 % (0.0-4.0); HEMATOCRIT 40.4 % (39.0-51.0); HEMO FLAGS DIFF FINAL; LYMPH % 29.3 % (9.0-44.0); LYMPHOCYTE # 1.6 TH/MM3 (1.0-4.8); MEAN CELL VOLUME 83.1 FL (80.0-100.0); MEAN CORPUSCULAR HEMOGLOBIN 28.3 PG (27.0-34.0); MEAN CORPUSCULAR HGB CONC 34.1 % (32.0-36.0); MONO % 10.3 % (0.0-8.0); NEUT % 58.3 % (16.0-70.0); PLATELET COUNT 238 TH/MM3 (150-450); RED BLOOD COUNT 4.86 MIL/MM3 (4.50-5.90); RED CELL DISTRIBUTION WIDTH 13.9 % (11.6-17.2); WHITE BLOOD COUNT 5.6 TH/MM3 (4.0-11.0)
[2017-04-29 08:00] VITALS: BP 124/81; PULSE 76; RESP 20; TEMP 98.6; O2SAT 94
[2017-04-29 08:06] LABS: ANION GAP 8 MEQ/L (5-15); BICARBONATE 27.1 MEQ/L (21.0-32.0); BLOOD UREA NITROGEN 19 MG/DL (7-18); CHLORIDE 104 MEQ/L (98-107); GLOMERULAR FILTRATION RATE 84 ML/MIN (>89); POTASSIUM 4.3 MEQ/L (3.5-5.1); SODIUM (NA) 139 MEQ/L (136-145)
[2017-04-29 08:09] LABS: ALT (GPT) 36 U/L (12-78); AST (GOT) 17 U/L (15-37); URIC ACID 5.4 MG/DL (2.6-7.2)
[2017-04-29 08:23] LABS: ALKALINE PHOSPHATASE 57 U/L (45-117); LDH SERUM 249 U/L (87-241); TOTAL BILIRUBIN ADULT 0.3 MG/DL (0.2-1.0)
[2017-04-29] MEDS ORDERED: SENN187 PO (08:54)
[2017-04-29] MEDS ORDERED: ALPR.25 PO (08:54)
[2017-04-29] MEDS ORDERED: NORC5TAB PO (08:54)
[2017-04-29] MEDS ORDERED: ALLO100 PO (08:54)
[2017-04-29] MEDS ORDERED: LEVA750T9 PO (08:54)
--- NOTE | 2017-04-29 08:54 | HHI.DS ---
Discharge Summary Admission Date Apr 26, 2017 at 15:54 Discharge Date: Apr 29, 2017 Admitting Diagnosis mediastinal mass (1) Mediastinal mass ICD Code: J98.59 - Other diseases of mediastinum, not elsewhere classified Status: Acute (2) Atypical chest pain ICD Code: R07.89 - Other chest pain (3) Chest congestion ICD Code: R09.89 - Other specified symptoms and signs involving the circulatory and respiratory systems Procedures CT guided biopsy of mediastinal mass, thoracentesis Brief History - From Admission Patient is a 42-year-old male with primary medical history of asthma who came into the hospital for evaluation of worsening cough, right-sided chest pain. Patient states that it all started during [place] where in he was seen at the hospital for right-sided chest pain that radiates to his arms. Patient was worked up in the chest pain center including labs and diagnostics and they could not find anything. Patient went home and continues to have some symptoms of shortness of breath and chest pain. He was seen at urgent care center where and he was treated with azithromycin and steroids and presumed that it is bronchitis. Patient's symptom has improved however after being off of the azithromycin approximately 2 days ago he again felt short of breath with increasing cough and right-sided chest pain date radiates to his back. He thought that he is going to improve however today he felt worse and came to the hospital for further evaluation. Patient reports fevers, night sweats, chills. Did not check with thermometer. Otherwise, denies headaches, dizziness, nausea, vomiting, diarrhea, abdominal pain, dysuria. 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 Patient also states that he was tested for HIV and was negative and he started crying. When asked why he is crying he states because his friend do ask him to do be tested and he just remembered him. CBC/BMP: 04/29/17 0550 04/29/17 0550 Significant Findings Laboratory Tests Test 04/26/17 13:00 04/27/17 06:11 04/27/17 15:25 04/28/17 05:15 Monocytes (%) (Auto) 9.7 % (0.0-8.0) 9.1 % (0.0-8.0) Random Glucose 125 MG/DL (74-106) 108 MG/DL (74-106) White Blood Count 12.7 TH/MM3 (4.0-11.0) Neutrophils (%) (Auto) 87.4 % (16.0-70.0) Lymphocytes (%) (Auto) 7.0 % (9.0-44.0) Neutrophils # (Auto) 11.1 TH/MM3 (1.8-7.7) Lymphocytes # (Auto) 0.9 TH/MM3 (1.0-4.8) Aspartate Amino Transf (AST/SGOT) 13 U/L (15-37) 8 U/L (15-37) Lactate Dehydrogenase 262 U/L (87-241) Uric Acid 7.9 MG/DL (2.6-7.2) Pleural Fluid WBC 12827 /MM3 (0-10) Pleural Fluid RBC 73610 /MM3 (0-0) Hemoglobin 12.8 GM/DL (13.0-17.0) Hematocrit 37.5 % (39.0-51.0) Blood Urea Nitrogen 21 MG/DL (7-18) Albumin 3.0 GM/DL (3.4-5.0) Calcium Level 8.2 MG/DL (8.5-10.1) Test 04/29/17 05:50 Monocytes (%) (Auto) 10.3 % (0.0-8.0) Blood Urea Nitrogen 19 MG/DL (7-18) Albumin 2.9 GM/DL (3.4-5.0) Calcium Level 8.3 MG/DL (8.5-10.1) Lactate Dehydrogenase 249 U/L (87-241) Estimat Glomerular Filtration Rate 84 ML/MIN (>89) Imaging Last Impressions Thoracentesis Ultrasound 04/27/17 0000 Signed Impressions: Service Date/Time: Thursday, April 27, 2017 14:58 - CONCLUSION: Uncomplicated ultrasound guided thoracentesis. Tonio Carrillo MD Chest X-Ray 04/27/17 0000 Signed Impressions: Service Date/Time: Thursday, April 27, 2017 15:32 - CONCLUSION: No evidence of pneumothorax. Tonio Carrillo MD Chest CT 04/26/17 0000 Signed Impressions: Service Date/Time: Wednesday, April 26, 2017 14:38 - CONCLUSION: 1. Very large anterior mediastinal mass lesion measuring 7.6 x 14.2 x 7.0 cm. Differential diagnosis includes lymphoma or possible a thymic tumor. 2. However, there also abnormal nodules/lymph nodes in the right cardiophrenic angle as well as pleural based nodules posteriorly and medially in the right hemithorax with associated moderate effusion. I believe findings are most characteristic of a lymphomatous type process. 3. Left lung is clear Alonso Leonardo MD Abdomen/Pelvis CT 04/26/17 0000 Signed Impressions: Service Date/Time: Thursday, April 27, 2017 19:18 - CONCLUSION: 1. No acute findings within the abdomen and pelvis. 2. Slight decrease in right pleural effusion since April 26. Pleural-based masses present at the right lung base are characteristic of pleural spread of tumor. Differential diagnosis includes thymoma and lymphoma. 3. Stable to slight increase in small pericardial effusion. Kavon Green MD PE at Discharge GENERAL: This is a well-nourished, well-developed patient, in no apparent distress. CARDIOVASCULAR: Regular rate and rhythm without murmurs, gallops, or rubs. RESPIRATORY: Diminished right base. Minimal wheeze. GASTROINTESTINAL: Abdomen soft, non-tender, nondistended. No guarding. Bowel sounds active 4. MUSCULOSKELETAL: Extremities without clubbing, cyanosis, or edema. No joint tenderness, effusion, or edema noted. No calf tenderness. Negative Homans sign bilaterally. NEUROLOGICAL: Awake and alert. Cranial nerves II through XII intact. Motor and sensory grossly within normal limits. Five out of 5 muscle strength in all muscle groups. Normal speech. Hospital Course Patient is a 42-year-old male with primary medical history of asthma who came into the hospital for evaluation of worsening cough, right-sided chest pain. Suspect pneumonia, atypical, treated with abx. Cultures NTD. Patient with Mediastinal mass. Chest x-ray showed small right pleural effusion with mild atelectasis and/or consolidation of the right lung base. 2. Possible density overlying the right mediastinum which could represent airspace abnormality or potentially mediastinal abnormality. CT chest showed very large anterior mediastinal mass lesion measuring 7.6 x 14.2 x 7.0 cm. Differential diagnosis includes lymphoma or possible thymic tumor. There is also abnormal nodules/lymph nodes in the right cardiophrenic angle as well as pleural-based nodules posteriorly and medially in the right hemothorax which is associated moderate effusion Influenza negative S/P US guided right thoracentesis . CT guided lung biopsy 04/29/17. Pathology pending will follow up as OP with Dr Lkue garza/onc for further eval. Consult oncology for further evaluation and recommendation. Plan for CT A/P, check AFP, beta HCG, CA 19-9, CEA, LDH and PSA Uric acid improved, continue allopurinol Received pain med. Discharge in stabe condition to follow up as OP with PCP and consultants. Pt Condition on Discharge: Stable Discharge Disposition: Discharge Home Discharge Time: > 30 minutes Discharge Instructions DIET: Follow Instructions for: As Tolerated, No Restrictions Activities you can perform: Regular-No Restrictions Follow up Referrals: Oncology - 1 Week with Grace Butler MD PCP Follow-up - 2-3 Days Pulmonology - 1 Week New Medications: Hydrocodone-Acetaminophen ([place]) 5 Mg-325 Mg Tab 1 TAB PO Q6H PRN for PAIN, #30 TAB 0 Refills Lactobacillus Acidophilus (Lactinex) 1 Chew 1 TAB CHEW DAILY for Nutritional Supplement, #30 TAB 0 Refills Allopurinol (Zyloprim) 100 Mg Tab 100 MG PO DAILY for elevated uric acid , #30 TAB Alprazolam (Xanax) 0.25 Mg Tab 0.25 MG PO Q8HR for anxiety, #30 TAB Levofloxacin (Levaquin) 750 Mg Tablet 750 MG PO DAILY for infection, #7 MG Sennosides (Senna-Lax) 8.6 Mg Tab 17.2 MG PO Q12H PRN for Moderate constipation, #60 TAB Continued Medications: [no active meds] () Adele Lares MD Apr 29, 2017 08:54
[2017-04-29] MEDS ORDERED: LACTCHW3 CHEW (08:55)
[2017-04-29] MEDS ORDERED: ALLOPURINOL 100 MG TAB PO SCH (09:00)
[2017-04-29] MEDS: SODIUM CHLORIDE 0.9% FLUSH 10 ML FLUSH IV FLUSH SCH (09:30)
[2017-04-29] MEDS: LEVOFLOXACIN 750 MG TAB PO SCH (09:33)
--- NOTE | 2017-04-29 10:37 | PD.ONC.PN ---
Subjective Subjective Remarks Afebrile overnight. Patient anxious about biopsy. Still having mild back pain, improved with morphine. No shortness of breath. Objective Data Date Time Temp Pulse Resp B/P (MAP) Pulse Ox O2 Delivery O2 Flow Rate FiO2 04/29/17 03:57 97.6 78 16 128/73 (91) 95 04/29/17 00:00 97.8 88 18 129/77 (94) 95 04/28/17 20:30 83 04/28/17 20:00 97.7 89 16 129/80 (96) 96 04/28/17 18:25 82 04/28/17 17:59 97.9 95 18 126/95 (105) 94 04/28/17 14:22 98.6 90 18 130/84 (99) 95 04/29/17 04/29/17 04/29/17 06:59 14:59 22:59 Intake Total 275 ml Balance 275 ml Result Diagram: 04/29/17 0550 04/29/17 0550 Laboratory Results Laboratory Tests Test 04/29/17 05:50 White Blood Count 5.6 TH/MM3 Red Blood Count 4.86 MIL/MM3 Hemoglobin 13.8 GM/DL Hematocrit 40.4 % Mean Corpuscular Volume 83.1 FL Mean Corpuscular Hemoglobin 28.3 PG Mean Corpuscular Hemoglobin Concent 34.1 % Red Cell Distribution Width 13.9 % Platelet Count 238 TH/MM3 Mean Platelet Volume 7.3 FL Neutrophils (%) (Auto) 58.3 % Lymphocytes (%) (Auto) 29.3 % Monocytes (%) (Auto) 10.3 % Eosinophils (%) (Auto) 1.6 % Basophils (%) (Auto) 0.5 % Neutrophils # (Auto) 3.2 TH/MM3 Lymphocytes # (Auto) 1.6 TH/MM3 Monocytes # (Auto) 0.6 TH/MM3 Eosinophils # (Auto) 0.1 TH/MM3 Basophils # (Auto) 0.0 TH/MM3 CBC Comment DIFF FINAL Differential Comment Blood Urea Nitrogen 19 MG/DL Creatinine 0.98 MG/DL Random Glucose 89 MG/DL Total Protein 6.7 GM/DL Albumin 2.9 GM/DL Calcium Level 8.3 MG/DL Uric Acid 5.4 MG/DL Alkaline Phosphatase 57 U/L Aspartate Amino Transf (AST/SGOT) 17 U/L Alanine Aminotransferase (ALT/SGPT) 36 U/L Lactate Dehydrogenase 249 U/L Total Bilirubin 0.3 MG/DL Sodium Level 139 MEQ/L Potassium Level 4.3 MEQ/L Chloride Level 104 MEQ/L Carbon Dioxide Level 27.1 MEQ/L Anion Gap 8 MEQ/L Estimat Glomerular Filtration Rate 84 ML/MIN Culture Results Microbiology Date/Time Source Procedure Growth Status 04/27/17 15:25 Fluid Pleural Fluid Fungal Smear - Final NO FUNGAL ELEMENTS SEEN. Resulted 04/27/17 15:25 Fluid Pleural Fluid Fungal Culture Pending Resulted 04/27/17 15:25 Fluid Pleural Fluid Acid Fast Stain Pending Received 04/27/17 15:25 Fluid Pleural Fluid Mycobacterial Culture Pending Received 04/27/17 15:25 Fluid Pleural Fluid Gram Stain - Final Resulted 04/27/17 15:25 Fluid Pleural Fluid Body Fluid Culture - Preliminary NO GROWTH IN 48 HOURS. Resulted 04/26/17 13:00 Nasal Washing Influenza Types A,B Antigen (BRITTANI) - Final NEGATIVE FOR FLU A AND B ANTIGEN.... Complete Administered Medications Medications (Trade) Dose Ordered Sig/Suzan Route PRN Reason Start Time Stop Time Status Last Admin Dose Admin Sodium Chloride (NS Flush) 2 ml BID IV FLUSH 04/26/17 21:00 04/29/17 09:30 Levofloxacin (Levaquin) 750 mg DAILY PO 04/27/17 09:00 04/29/17 09:33 Morphine Sulfate (Morphine Inj) 4 mg Q4H PRN IV PAIN 6-10 04/26/17 22:00 04/29/17 09:33 Temazepam (Restoril) 15 mg HS PO 04/27/17 21:00 04/28/17 21:17 Alprazolam (Xanax) 0.25 mg Q8HR PO 04/27/17 17:45 04/29/17 05:01 Allopurinol (Zyloprim) 100 mg DAILY PO 04/29/17 09:00 04/29/17 09:33 Objective Remarks GENERAL: Middle aged male upright in bed on room air. SKIN: Warm and dry. bandage right posterior thorax c/d/i HEAD: Normocephalic. EYES: No injection or drainage. NECK: Supple, trachea midline. CARDIOVASCULAR: Regular rate and rhythm RESPIRATORY: clear to auscultation bilaterally. GASTROINTESTINAL: Abdomen soft, non-tender, nondistended. EXTREMITIES: No cyanosis NEUROLOGICAL: aox3. normal speech. no focal deficit. Assessment/Plan Problem List: (1) Mediastinal mass ICD Codes: J98.59 - Other diseases of mediastinum, not elsewhere classified Status: Acute Plan: 04/29: CT guided biopsy today. will go ahead and consult CTS as well to establish care in case biopsy returns thymoma. ok to d/c after biopsy and being seen by CTS today. face sheet faxed to new patient referrals for Saturday follow up. --CT ab/pelvis: no abdominal mass --large 14.2 cm mediastinal mass. --differential diagnosis is lymphoma versus thymoma versus extragonadal germ cell tumor. --alpha-fetoprotein, beta HCG, CA 19-9, and PSA all WNL (2) Pleural effusion ICD Codes: J90 - Pleural effusion, not elsewhere classified Plan: --Moderate right pleural effusion. --diagnostic and therapeutic ultrasound-guided thoracentesis has been ordered. Assessment 42y/o male admitted with chest pain. Oncology consulted for evaluation of mediastinal mass and a right pleural effusion. h/o Asthma. Herniated disc. Attending Statement The exam, history, and the medical decision-making described in the above note were completed with the assistance of the mid-level provider. I reviewed and agree with the findings presented. I attest that I had a [id number] encounter with the patient on the same day, and personally performed and documented my assessment and findings in the medical record. No new c/o for bx today d/w and Dr Thais Frey. ok to d/c today if stable after the bx fu this saturday Doris Liu Apr 29, 2017 10:37 Grace Butler MD Apr 29, 2017 18:16
[2017-04-29] MEDS ORDERED: LIDOCAINE 1%/EPINEPHrine 1:100,000 SOLN 20 ML VIAL ONE (12:07)
[2017-04-29] MEDS ORDERED: MIDAZOLAM HCL 2 MG/2 ML VIAL ONE (12:21)
--- NOTE | 2017-04-29 13:27 | PD.RAD ---
Post CT Procedure Prog Note Pre Procedure Diagnosis: (1) Mediastinal mass Post Procedure Diagnosis: Procedure Date: Apr 29, 2017 Supervising Radiologist: Db Alcantara Proceduralist/Assist: Mayra Galindo Estimated blood loss: none Anesthesia: Conscious Sedation Plan of Activity Patient to Unit: [facility] Patient Condition: Good See PACS Report for procedural detail/treatment Db Alcantara MD Apr 29, 2017 13:27
[2017-04-29 13:30] VITALS: BP 130/71; PULSE 86; RESP 20; TEMP 96.5; O2SAT 95
--- NOTE | 2017-04-29 14:33 | RADRPT ---
EXAM DATE/TIME: 04/29/2017 14:13 [facility] COMPARISON: CHEST EXPIRATION ONLY, April 27, 2017, 15:32. INDICATIONS : Post biopsy MEDICAL HISTORY : Hypertension. SURGICAL HISTORY : None. ENCOUNTER: Initial ACUITY: 1 day PAIN SCORE: 0/10 LOCATION: Bilateral chest FINDINGS: A single frontal expiratory view of the chest was performed. Right mediastinal basilar density. No e vidence of pneumothorax. Mediastinal mass seen. The cardio-mediastinal contours and bronchopulmonary markings are unremarkable for an expiratory exam . Osseous structures are intact. CONCLUSION: 1. No evidence for pneumothorax. 2. Right mediastinal and basilar density. Db Alcantara MD on April 29, 2017 at 14:30 Board Certified Radiologist. This report was verified electronically.
--- NOTE | 2017-04-29 15:07 | MB ---
cc: ELISA SILVA MD DATE OF CONSULTATION: 04/29/2017 DATE OF : 1975 HISTORY OF PRESENT ILLNESS A 42-year-old male with relatively no past medical history, says he got a flu shot about 6 weeks ago then started having a cough around Thanksgiving and developed some right-sided chest discomfort. He went into the emergency room at [facility] on April 12. He was seen in the chest pain center and was ruled out, advised to follow-up with his primary care. He continued to have the same symptoms and then last Saturday went in to a walk-in urgent care. He was evaluated by a physician who thought he might have bronchitis and x-rays were done. He was given a steroid, felt a little bit better, but the day that he stopped the steroid the symptoms came back. He went back in and had a chest x-ray. He was told he had a bad pneumonia and needed to go to the emergency room to be admitted. Upon admission to the emergency room he had a chest x-ray done which showed a right pleural effusion and consolidation of the right lung. They also did a CT chest which showed a 14 x 2 x 7 large anterior mediastinal mass with extension into the prevascular space. There was an additional node seen at the right costophrenic angle and a moderately large right-sided effusion. There also appeared to be some pleural-based nodules in the region of the right-sided effusion posteromedially. The patient underwent right thoracentesis on 04/27/2017 and had 1500 cc of cloudy exudative fluid. No growth in cultures to date. Cytology still pending. He is actually undergoing CT-guided biopsy of the large right mediastinal mass today. We were consulted to evaluate for possible surgery regarding the mediastinal mass. PAST MEDICAL HISTORY 1. Seasonal asthma. 2. Allergies. 3. Herniated disc. PAST SURGICAL HISTORY No past surgical history. ALLERGIES No known allergies. MEDICATIONS No current medications. FAMILY HISTORY Father at age 55 from an OR. Mother alive and well. Has three brothers, one sister. SOCIAL HISTORY , lives with his . No tobacco. Did smoke marijuana about 5 years ago. Works for a [employer] company for the last 4 years and wears a respirator at work. REVIEW OF SYSTEMS GENERAL: No night sweats, fever, heat or cold intolerance. SKIN: No psoriasis, itching or hives. HEENT: No blurred vision, hearing loss. RESPIRATORY: Positive for cough, some shortness of breath. CARDIOVASCULAR: Positive for right-sided chest discomfort. No paroxysmal nocturnal dyspnea. No orthopnea. GASTROINTESTINAL: No diarrhea or vomiting. GENITOURINARY: No burning, frequency, urgency. PHYSICAL EXAMINATION VITAL SIGNS: Blood pressure 128/70, heart rate 78, afebrile. GENERAL: The patient is awake, alert, in no acute distress. HEAD: Head is normocephalic, atraumatic. Pupils are equal and reactive. Oral mucosa pink and moist. NECK: Supple. No JVD. LYMPH NODE SURVEY: No cervical, supraclavicular or axillary lymphadenopathy noted. HEART: Heart sounds S1, S2, regular rate and rhythm. No audible rubs, murmurs, gallops. LUNGS: Diminished in the right lower lobe, otherwise clear to auscultation. ABDOMEN: Soft, nontender. No masses or organomegaly. EXTREMITIES: No cyanosis, clubbing or edema. LABORATORY Hemoglobin 13, hematocrit 40, white cell count 5.6, platelet count 238. Sodium 139, potassium 4.3, BUN 19, creatinine 0.98. Tumor markers: AFP 1.7, CEA 0.7, CA 19-9 1.2, prostate-specific AG 0.98. INR 1.0. Pleural fluid did show 13,000 wbc's. Micro negative to date. Influenza A&B negative. IMPRESSION This is a 42-year-old male with a very large 14 cm mediastinal mass. Differential diagnosis of lymphoma versus thymoma versus possible extragonadal germ cell tumor. PLAN The patient will undergo a CT-guided biopsy today. He has also had a recent large right moderate effusion which was drained on 04/27/2017 and that cytology is also pending. Evaluation further as per Dr. Elisa Silva after we receive the results of the biopsy. Dictated by: KVNG Guillen Elisa MAHAN /11:52 AM /3:04 PM
--- NOTE | 2017-04-29 16:07 | RADRPT ---
EXAM DATE/TIME: 04/29/2017 12:54 [facility] COMPARISON: No previous studies available for comparison. INDICATIONS : Mediastinal mass CT FLUORO TIME: 0.9 minutes SEDATION TIME: 15 minutes BIOPSY SITE: Right mediastinum MEDICATION(S): 1.) 2 mg midazolam (Versed) IV 2.) 100 mcg fentanyl (Sublimaze) IV DEVICE(S): 1.) 20 gauge Temno core biopsy needle MEDICAL HISTORY : Hypertension. Asthma SURGICAL HISTORY : None. ENCOUNTER: Initial ACUITY: 1 day PAIN SCORE: 5/10 LOCATION: Right upper chest A total of two core specimen(s) were obtained and sent to the laboratory for pathologic evaluation. PROCEDURE: 1. CT guided mediastinal biopsy. Prior to the procedure informed consent was obtained. Any appropriate prior imaging studies were rev iewed. Using automated exposure control and adjustment of the mA and/or kV according to patient size, radiat ion dose was kept as low as reasonably achievable to obtain optimal diagnostic quality images. DICOM format image data is available electronically for review and comparison. The site was prepped in a sterile fashion. Full sterile technique was used, including cap, mask, jong rile gloves and gown and a large sterile sheet. Hand hygiene and 2% chlorhexidine and/or betadine/al cohol prep was utilized per protocol for cutaneous antisepsis. The skin and subcutaneous tissues wer e infiltrated with local anesthetic solution. With CT guidance the previously identified target was localized. Biopsy was performed using the presc ribed needle as above. Adequate hemostasis was obtained with compression at the puncture site. Follow-up CT scan reveals no hemorrhage. Minimal pneumomediastinum. The patient tolerated the procedure well and there were no complications. The patient was returned to the Radiology Outpatient Unit in stable condition. CONCLUSION: Successful CT guided biopsy of mediastinal mass. Db Alcantara MD on April 29, 2017 at 16:05 Board Certified Radiologist. This report was verified electronically.
--- NOTE | 2017-04-29 18:21 | HHI.PR ---
Subjective Remarks 42 YOWM with large mediastinal mass, pl eff Had Thoracentesis Pl fluid exudate Had CT guided Mediastinal mass bx no PTX Objective Vital Signs Vital Signs Date Time Temp Pulse Resp B/P (MAP) Pulse Ox O2 Delivery O2 Flow Rate FiO2 04/29/17 13:30 96.5 86 20 130/71 (90) 95 04/29/17 08:00 98.6 76 20 124/81 (95) 94 04/29/17 08:00 76 04/29/17 03:57 97.6 78 16 128/73 (91) 95 04/29/17 00:00 97.8 88 18 129/77 (94) 95 04/28/17 20:30 83 04/28/17 20:00 97.7 89 16 129/80 (96) 96 04/28/17 18:25 82 I/O 04/28/17 04/28/17 04/28/17 04/29/17 04/29/17 04/29/17 07:00 15:00 23:00 07:00 15:00 23:00 Intake Total 873 ml 600 ml 275 ml Balance 873 ml 600 ml 275 ml Intake Oral 240 ml 600 ml 275 ml IV Total 633 ml # Voids 2 2 4 Result Diagram: 04/29/17 0550 04/29/17 0550 Objective Remarks GENERAL: WMWN Wm, NAD SKIN: Warm and dry. HEAD: Normocephalic. EYES: No scleral icterus. No injection or drainage. NECK: Supple, trachea midline. No JVD or lymphadenopathy. CARDIOVASCULAR: Regular rate and rhythm without murmurs, gallops, or rubs. RESPIRATORY: Breath sounds equal bilaterally. No accessory muscle use. GASTROINTESTINAL: Abdomen soft, non-tender, nondistended. MUSCULOSKELETAL: No cyanosis, or edema. BACK: Nontender without obvious deformity. No CVA tenderness. A/P Assessment and Plan Pleural effusion, s/p TC Mediastinal mass bronchial asthma PLAN: Check Pl fluid cytology Check mediastinal bx Pt Seen by Oncology and CTS Francis Aleman MD Apr 29, 2017 18:21
== END 2017-04-29 17:30 | disposition home or self-care (01) | DRG 186 ==
LOC: NEPE 12:18 → NEDA 15:54 → HCIN 18:22 → HCIS 18:46 → HCIN 18:55
PROVIDERS: ADMIT Hospitalist; ATTEND Hospitalist
PROC: 0W993ZZ Drainage of Right Pleural Cavity, Percutaneous Approach (ICD-10-PCS; principal; 2017-04-27)
PROC: 0WBC3ZX Excision of Mediastinum, Percutaneous Approach, Diagnostic (ICD-10-PCS; 2017-04-29)
DX: J90 Pleural effusion, not elsewhere classified (principal); J18.9 Pneumonia, unspecified organism; J98.11 Atelectasis; R22.2 Localized swelling, mass and lump, trunk; J45.909 Unspecified asthma, uncomplicated; G47.00 Insomnia, unspecified; F41.9 Anxiety disorder, unspecified; R91.8 Other nonspecific abnormal finding of lung field; Z72.0 Tobacco use
CPT/HCPCS: 32405; 32555; 71010; 71260; 74177; 77012; 80053; 82105; 82150; 82378; 82945; 83615; 83735; 83880; 83986; 84100; 84153; 84157; 84550; 84702; 85025; 85610; 85730; 86301; 87015; 87070; 87102; 87116; 87205; 87206; 87804; 88112; 88184; 88185; 88305; 88307; 88341; 88342; 89051; 93005; 94010; 94640; 94664; 96374; 96375; C1729; J0456; J0696; J2250; J2270; J2930; J3010; J7030; J7050; Q9963; Q9967

== ENCOUNTER 2017-05-08 03:39 | Inpatient (IN) | payer BC ==
[2017-05-08] VITALS (20 sets, daily range): BP systolic 110–153; BP diastolic 59–93; PULSE 20–113; RESP 18–34; TEMP 98–98.8; O2SAT 90–95
[~2017-05-08] VITALS: Ht 177.8 cm; Wt 93.0 kg
[~2017-05-08 03:39] MED LIST: ALLO100 PO; ALPR.25 PO; LACTCHW3 CHEW; LEVA750T9 PO; NORC5TAB PO; SENN187 PO; [UNRECOGNIZED DRUG - REMARK]
--- NOTE | 2017-05-08 04:20 | PD ---
HPI Chief Complaint: Abdominal Pain Time Seen by Provider: 03:56 Travel History International Travel<30 days: No Contact w/Intl Traveler<30days: No Traveled to known affect area: No History of Present Illness HPI The patient is a 42 year old male who presents to the [facility] emergency department with a history of abdominal pain that began while in the hospital recently. He reports a recent history of being diagnosed with pneumonia with admission to the hospital at which time he was diagnosed with a mediastinal mass that is suspicious for a thymoma versus T-cell lymphoma. He was placed on morphine for right-sided upper back pain. He reports that the last time that he moved his bowels normally was 2 days prior to being admitted to the hospital. He followed up with Dr. Butler on Saturday and additional testing is pending from his tumor biopsy. He reports that Dilaudid and Vicodin were not helping. He was given a prescription for Fentanyl and morphine by Dr. Butler for his pain. He reports that the only medication that he started with the morphine. He preferred to hold off on trying the fentanyl patch. He is also taking Senna for constipation. When the senna was not helping with his constipation he did yesterday drink magnesium citrate, a laxative suppository, and finally at 4:30 PM he had his assist him with using an enema. He reports that he did have some relief of his abdominal pressure and distention briefly. He reports that he then began to have worsening pain in the right side of his abdomen and right flank. He denies having any dysuria, urinary frequency or urinary urgency. He reports that he has had some difficulty starting his stream of urine with hesitancy. He denies having any blood in his stool or blood in his urine. He reports that the only medication that he is on currently is morphine for pain and senna. He completed his course of antibiotic. While in the hospital he did undergo a CT scan of the abdomen and pelvis that showed no signs of mass. This was done on April 26. He reports that the pain in his abdomen is made worse with any attempts at eating or drinking. He reports that because of this he is not eating or drinking very well. He feels like he may be dehydrated. He feels lightheaded. He reports having some shortness of breath with exertion, however this is no worse than it was prior to his admission earlier in April. He denies having any recent fevers. He does report having some chest congestion and an occasional cough. On review of systems, he denies having any neck pain,vomiting, diarrhea, , or neurologic symptoms. COUNT INCLUDES THE [facility] Past Medical History Narrative Medical The patient's past medical history is significant for seasonal asthma, seasonal allergies, herniated disc, history of a kidney stone, history of mediastinal mass recently diagnosed earlier in the month. Arthritis: Yes (GROIN AND NECK ) Asthma: Yes Cancer: Yes Cardiovascular Problems: Yes Diminished Hearing: No Endocrine: No Genitourinary: No Hypertension: Yes Immune Disorder: No Musculoskeletal: Yes Neurologic: No Psychiatric: No Reproductive: No Respiratory: Yes Past Surgical History Narrative Surgical The patient's past surgical history is significant for shoulder surgery. His other recent procedures include a CT-guided mediastinal biopsy of this tumor, thoracentesis for large pleural effusion on the right side. Body Medical Devices: SHOULDER SURGERY, DISLOCATION MAYBE SCREWS? Family History Family Myocardial Infarction: Yes (father, grandfather) Social History Alcohol Use: No Tobacco Use: No Substance Use: No Allergies-Medications (Allergen,Severity, Reaction): Coded Allergies: No Known Allergies (Unverified , 05/08/17) Reported Meds & Prescriptions Reported Meds & Active Scripts Active Senna-Lax (Sennosides) 8.6 Mg Tab 17.2 Mg PO Q12H PRN Reported Morphine ER (Morphine Sulfate) 30 Mg Tab 30 Mg PO BID [no active meds] Senna-Lax, Morphine Review of Systems Except as stated in HPI: all other systems reviewed are Neg General / Constitutional: No: Fever Eyes: No: Visual changes HENT: Positive: Congestion, No: Headaches Cardiovascular: Positive: Chest Pain or Discomfort, Dyspnea on exertion Respiratory: Positive: Cough, No: Shortness of Breath Gastrointestinal: Positive: Abdominal Pain, Constipation, No: Nausea, Vomiting , Diarrhea, Hematemesis, Hematochezia Genitourinary: Positive: Hesitancy, Flank Pain, No: Urgency, Frequency, Dysuria Musculoskeletal: Positive: Myalgias, No: Pain Skin: No Rash Neurologic: No: Weakness, Focal Abnormalities, Change in Mentation, Slurred Speech, Sensory Disturbance Psychiatric: No: Depression Endocrine: No: Polydipsia Hematologic/Lymphatic: No: Easy Bruising Physical Exam Narrative General: The patient is a well-developed well-nourished male, uncomfortable appearing on arrival, holding the right side of his abdomen, O2 saturation on room air is 90% . Head and Neck exam: Head is normocephalic atraumatic. Eyes: EOMI, pupils are equal round and reactive to light. Nose: Midline septum with pink mucous membranes Mouth: Dentition unremarkable. Moist mucus membranes. Posterior oropharynx is not erythematous. No tonsillar hypertrophy. Uvula midline. Airway patent. Neck: No palpable lymphadenopathy. No nuchal rigidity. No thyromegaly. Cardiovascular: Sinus tachycardia in the 1 teens without murmurs, gallops, or rubs. No pulse deficit to the extremities on simultaneous auscultation and palpation of his radial artery. Lungs: Decreased breath sounds in the right lower lung base, no rhonchi, no wheezes. No accessory muscle use. No paroxysmal abdominal breathing. The patient does have tachypnea on exam. Abdomen: Soft, although distended on examination. The patient has tenderness most prominent on palpation in the right lower quadrant of the abdomen, although also present in the right upper quadrant. No guarding, rebound, or rigidity. Negative Vyas's sign. Normal bowel sounds are audible. Extremities: No clubbing, cyanosis, or edema. 2+ pulses in all 4 extremities. No calf tenderness on palpation. Back: No spinous process tenderness to palpation. Right-sided CVA tenderness is noted on palpation. Neurologic Exam: Grossly nonfocal. Skin Exam: No rash noted. Intact skin that is warm and dry. Data Data Last Documented VS Vital Signs Date Time Temp Pulse Resp B/P (MAP) Pulse Ox O2 Delivery O2 Flow Rate FiO2 05/08/17 05:00 83 22 124/72 (89) 94 Nasal Cannula 2.00 05/08/17 03:41 98.2 Orders Orders Complete Blood Count With Diff (05/08/17 04:20) Comprehensive Metabolic Panel (05/08/17 04:20) Prothrombin Time / Inr (Pt) (05/08/17 04:20) Act Partial Throm Time (Ptt) (05/08/17 04:20) C-Reactive Protein (Crp) (05/08/17 04:20) Lipase (05/08/17 04:20) Urinalysis - C+S If Indicated (05/08/17 04:20) Iv Access Insert/Monitor (05/08/17 04:20) Ecg Monitoring (05/08/17 04:20) Oximetry (05/08/17 04:20) Sodium Chlor 0.9% 1000 Ml Inj (Ns 1000 M (05/08/17 04:30) Chest, Single Ap (05/08/17 04:29) Abdomen, Flat & Upright (05/08/17 04:31) Ondansetron Inj (Zofran Inj) (05/08/17 04:45) Morphine Inj (Morphine Inj) (05/08/17 04:45) Morphine Inj (Morphine Inj) (05/08/17 05:00) Morphine Inj (Morphine Inj) (05/08/17 04:58) D-Dimer (05/08/17 04:20) Ct Pulmonary Angiogram (05/08/17 05:14) Iohexol 350 Inj (Omnipaque 350 Inj) (05/08/17 05:35) Ondansetron Inj (Zofran Inj) (05/08/17 06:00) Hydromorphone Pf Inj (Dilaudid Pf Inj) (05/08/17 06:15) Admit Order (Ed Use Only) (05/08/17 06:30) Labs Laboratory Tests Test 05/08/17 04:00 White Blood Count 6.0 TH/MM3 Red Blood Count 5.02 MIL/MM3 Hemoglobin 14.0 GM/DL Hematocrit 41.1 % Mean Corpuscular Volume 82.0 FL Mean Corpuscular Hemoglobin 27.8 PG Mean Corpuscular Hemoglobin Concent 33.9 % Red Cell Distribution Width 14.1 % Platelet Count 231 TH/MM3 Mean Platelet Volume 7.5 FL Neutrophils (%) (Auto) 67.4 % Lymphocytes (%) (Auto) 17.0 % Monocytes (%) (Auto) 12.6 % Eosinophils (%) (Auto) 2.5 % Basophils (%) (Auto) 0.5 % Neutrophils # (Auto) 4.0 TH/MM3 Lymphocytes # (Auto) 1.0 TH/MM3 Monocytes # (Auto) 0.8 TH/MM3 Eosinophils # (Auto) 0.2 TH/MM3 Basophils # (Auto) 0.0 TH/MM3 CBC Comment DIFF FINAL Differential Comment Prothrombin Time 10.4 SEC Prothromb Time International Ratio 1.0 RATIO Activated Partial Thromboplast Time 28.1 SEC D-Dimer Quantitative (PE/DVT) 0.98 MG/L FEU Blood Urea Nitrogen 16 MG/DL Creatinine 1.03 MG/DL Random Glucose 113 MG/DL Total Protein 7.2 GM/DL Albumin 3.3 GM/DL Calcium Level 8.7 MG/DL Alkaline Phosphatase 67 U/L Aspartate Amino Transf (AST/SGOT) 29 U/L Alanine Aminotransferase (ALT/SGPT) 52 U/L Total Bilirubin 0.4 MG/DL Sodium Level 137 MEQ/L Potassium Level 3.8 MEQ/L Chloride Level 102 MEQ/L Carbon Dioxide Level 29.0 MEQ/L Anion Gap 6 MEQ/L Estimat Glomerular Filtration Rate 79 ML/MIN C-Reactive Protein 10.10 MG/DL Lipase 186 U/L [facility] Medical Decision Making Medical Screen Exam Complete: Yes Emergency Medical Condition: Yes Medical Record Reviewed: Yes Interpretation(s) Last Impressions CT Angiography 05/08/17 0514 Signed Impressions: Service Date/Time: Monday, May 08, 2017 05:26 - CONCLUSION: 1. No pulmonary embolus. 2. Large right pleural effusion with possible pleural based mass is seen posterior leak. 3. Large superior mediastinum mass and adenopathy in the left epicardial regions concerning for neoplastic processes such as lymphoma. The large mass has already been biopsied. Bienvenido Lockett MD Abdomen X-Ray 05/08/17 0431 Signed Impressions: Service Date/Time: Monday, May 08, 2017 04:48 - CONCLUSION: Large right pleural effusion. Bienvenido Lockett MD Chest X-Ray 05/08/17 0429 Signed Impressions: Service Date/Time: Monday, May 08, 2017 04:47 - CONCLUSION: Development of a large right pleural effusion. Bienvenido Lockett MD Differential Diagnosis Recurrent pleural effusion, versus constipation, versus bowel perforation, versus kidney stone, versus pyelonephritis Narrative Course During the course of the patients emergency department visit, the patients history, examination, and differential diagnosis were reviewed with the patient. The patient was placed on a manager cardiac cath with oximetry and frequent blood pressure monitoring. The patient had IV access obtained and blood work sent for analysis. An abdominal flat and upright was ordered as the patient recently underwent CT scan of the abdomen and pelvis earlier in the month, chest x-ray was ordered. The patient was initially provided normal saline 1 L IV fluid bolus, Zofran 4 mg IV, morphine 4 mg IV. The patients laboratory studies were reviewed and remarkable for white count 6, hemoglobin 14, platelets 231 with a monocytosis at 12.6. CMP is remarkable for glucose of 113, C-reactive protein 10.10, lipase 186, PT PTT within normal limits, d-dimer is 0.98. A review of the electronic medical record reveals that the patient had a CT scan of the chest with IV contrast. He did not undergo a CTA previously to rule out PE. CTA to rule out PE was ordered given the patient's recent hospitalization and decreased activity. Radiology studies were reviewed and remarkable for a chest x-ray that reveals a large right pleural effusion. Abdominal flat and upright shows a large effusion , no other acute abnormality. CTA shows no pulmonary embolism, large right pleural effusion with possible pleural based mass seen posteriorly, large superior mediastinal mass and adenopathy in the left epicardial regions concerning for neoplastic process such as lymphoma. The patients results were discussed with the patient, including the plan of care. I explained that further testing and/ or monitoring is indicated based on the patients history, examination, and/ or laboratory findings. Therefore, I recommended admission for additional evaluation. The patient expressed understanding and was agreeable with this plan. The patient was admitted to the hospital in guarded condition and sent to a bed under the care of the [facility] ([place], [place])ist. Physician Communication Physician Communication The patient's case including history, pertinent physical examination findings, and laboratory studies were discussed with Dr. Urias. It was agreed that the patient would be admitted to the [facility] ([place], [place])ist service. Diagnosis Primary Impression: Shortness of breath Additional Impressions: Recurrent right pleural effusion Mediastinal mass Admitting Information Admitting Physician Requests: Admit Johanna Heart MD May 08, 2017 04:20
[2017-05-08] MEDS ORDERED: SODIUM CHLOR 0.9% 1000 ML INJ 1,000 ML IV ONE (04:30)
[2017-05-08] MEDS ORDERED: ONDANSETRON HCL 4 MG/2 ML VIAL IV ONE (04:45)
[2017-05-08] MEDS ORDERED: MORPHINE SULFATE 4 MG/ML INJ IV PUSH ONE (04:45)
[2017-05-08] MEDS ORDERED: MORPHINE SULFATE 8 MG/ML INJ ONE (04:58)
[2017-05-08] MEDS ORDERED: MORPHINE SULFATE 8 MG/ML INJ IV PUSH ONE (05:00)
--- NOTE | 2017-05-08 05:07 | RADRPT ---
EXAM DATE/TIME: 05/08/2017 04:47 [facility] COMPARISON: CHEST EXPIRATION ONLY, April 29, 2017, 14:13. CHEST SINGLE AP, April 26, 2017, 12:50. INDICATIONS : Short of breath. MEDICAL HISTORY : None. SURGICAL HISTORY : None. ENCOUNTER: Initial ACUITY: 1 day PAIN SCORE: 0/10 LOCATION: Bilateral chest FINDINGS: There is opacification of much of the right hemithorax likely secondary to a large effusion. This manjit ears new. The right upper lung is aerated. The left lung appears clear. The heart size is normal. CONCLUSION: Development of a large right pleural effusion. Bienvenido Lockett MD on May 08, 2017 at 5:02 Board Certified Radiologist. This report was verified electronically.
[2017-05-08 05:10] LABS: BASOPHIL % 0.5 % (0.0-2.0); EOSINOPHIL # 0.2 TH/MM3 (0-0.4); EOSINOPHIL % 2.5 % (0.0-4.0); HEMATOCRIT 41.1 % (39.0-51.0); HEMO FLAGS DIFF FINAL; MEAN CORPUSCULAR HEMOGLOBIN 27.8 PG (27.0-34.0); MEAN CORPUSCULAR HGB CONC 33.9 % (32.0-36.0); MONO % 12.6 % (0.0-8.0); NEUT % 67.4 % (16.0-70.0); PLATELET COUNT 231 TH/MM3 (150-450); RED BLOOD COUNT 5.02 MIL/MM3 (4.50-5.90); RED CELL DISTRIBUTION WIDTH 14.1 % (11.6-17.2)
--- NOTE | 2017-05-08 05:10 | RADRPT ---
EXAM DATE/TIME: 05/08/2017 04:48 [facility] COMPARISON: No previous studies available for comparison. INDICATIONS : Pain in entire abdomen. MEDICAL HISTORY : None. SURGICAL HISTORY : None. ENCOUNTER: Initial ACUITY: 2 weeks PAIN SCORE: 7/10 LOCATION: Bilateral abdomen FINDINGS: Supine and upright views of the abdomen were performed. The abdominal bowel gas pattern is normal. No air fluid levels are seen. The visualized lower lungs are clear. No evidence of free intraperito mario gas. The osseous structures are unremarkable. Calcifications are seen in the left pelvis likely related to phleboliths. There is a large right pleural effusion. CONCLUSION: Large right pleural effusion. Bienvenido Lockett MD on May 08, 2017 at 5:06 Board Certified Radiologist. This report was verified electronically.
[2017-05-08 05:27] LABS: ALT (GPT) 52 U/L (12-78); ANION GAP 6 MEQ/L (5-15); AST (GOT) 29 U/L (15-37); BLOOD UREA NITROGEN 16 MG/DL (7-18); CHLORIDE 102 MEQ/L (98-107); GLOMERULAR FILTRATION RATE 79 ML/MIN (>89); POTASSIUM 3.8 MEQ/L (3.5-5.1); SODIUM (NA) 137 MEQ/L (136-145)
[2017-05-08 05:28] LABS: ALKALINE PHOSPHATASE 67 U/L (45-117); TOTAL BILIRUBIN ADULT 0.4 MG/DL (0.2-1.0)
[2017-05-08 05:31] LABS: APTT (PATIENT) 28.1 SEC (24.3-30.1); PROTHROMBIN TIME - PATIENT 10.4 SEC (9.8-11.6)
[2017-05-08] MEDS ORDERED: IOHEXOL 350 MG/ML 10 ML VIAL (for RAD DIAG) IVCONTRAST ONE (05:35)
[2017-05-08] MEDS ORDERED: ONDANSETRON HCL 4 MG/2 ML VIAL IV PUSH ONE (06:00)
--- NOTE | 2017-05-08 06:11 | RADRPT ---
EXAM DATE/TIME: 05/08/2017 05:26 [facility] COMPARISON: CT THORAX W CONTRAST, April 26, 2017, 14:38. US GUIDED THORACENTESIS RIGHT, April 27, 2017, 14 :58. CT MEDIASTINAL BIOPSY, April 29, 2017, 12:54. INDICATIONS : Shortness of breath. Evaluate for embolism. IV CONTRAST: 75 cc Omnipaque 350 (iohexol) IV RADIATION DOSE: 39.08 CTDIvol (mGy) MEDICAL HISTORY : Cardiovascular disease. Hypertension. Mediastinal mass. SURGICAL HISTORY : None. ENCOUNTER: Initial ACUITY: 1 day PAIN SCALE: 0/10 LOCATION: chest TECHNIQUE: Volumetric scanning of the chest was performed using a pulmonary embolism protocol MIP images were re constructed. Using automated exposure control and adjustment of the mA and/or kV according to patien t size, radiation dose was kept as low as reasonably achievable to obtain optimal diagnostic quality images. DICOM format image data is available electronically for review and comparison. Follow-up recommendations for detected pulmonary nodules are based at a minimum on nodule size and pa tient risk factors according to Fleischner Society Guidelines. FINDINGS: PULMONARY ARTERIES: No filling defects are seen in the pulmonary arteries through the segmental level. LUNGS: There is atelectasis of much of the right lung with only the superior aspect of the right upper lobe, superior aspect of the superior segment of the right lower lobe, and the superior aspect of the righ t middle lobe being aerated. The left lung is clear. PLEURAE: There is a large right pleural effusion. There does appear to be some increased density at the cable driller ior right pleural space concerning for pleural masses. There is a minimal left pleural effusion. MEDIASTINUM: There is a large mediastinal mass seen in the anterior superior mediastinum measuring at least 15 cm in greatest dimension. This is increased in size from the prior CT examination approximately 2 weeks ago. This has underwent biopsy. This mass does appear to abut the ascending aorta and right brachioce phalic and left common carotid arteries. There is a mild pericardial effusion. There do appear to be lymph nodes seen in the left epicardial region. MUSCULOSKELETAL: Within normal limits for patient age. MISCELLANEOUS: The visualized upper abdominal organs demonstrate no acute abnormality. CONCLUSION: 1. No pulmonary embolus. 2. Large right pleural effusion with possible pleural based mass is seen posterior leak. 3. Large superior mediastinum mass and adenopathy in the left epicardial regions concerning for neopl astic processes such as lymphoma. The large mass has already been biopsied. Bienvenido Lockett MD on May 08, 2017 at 6:03 Board Certified Radiologist. This report was verified electronically.
[2017-05-08] MEDS ORDERED: HYDROmorphone HCL PF 2 MG/ML VIAL IV PUSH ONE (06:15)
[2017-05-08] MEDS ORDERED: SODIUM CHLORIDE 0.9% FLUSH 10 ML FLUSH IV FLUSH PRN ×2 (06:45→14:30)
[2017-05-08] MEDS ORDERED: SENNOSIDES 8.6 MG TAB PO PRN ×4 (06:45→17:15)
[2017-05-08] MEDS ORDERED: ACETAMINOPHEN 325 MG TAB PO PRN (06:45)
[2017-05-08] MEDS ORDERED: NALOXONE HCL 0.4 MG/ML AMP IV PUSH PRN ×3 (06:45→17:15)
[2017-05-08] MEDS ORDERED: ONDANSETRON HCL 4 MG/2 ML VIAL IVP PRN (06:45)
[2017-05-08] MEDS ORDERED: MAGNESIUM HYDROXIDE SUSP 30 ML CUP PO PRN ×3 (06:45→17:15)
[2017-05-08] MEDS ORDERED: MORP1TAB25 PO (06:52)
[2017-05-08] MEDS ORDERED: SODIUM CHLORIDE 0.9% FLUSH 10 ML FLUSH IV FLUSH SCH (09:00)
[2017-05-08] MEDS: RESP: ALBUTEROL 2.5 MG/IPRATROPIUM 0.5 MG NEB (SCH) NEB ×3 (10:08→21:18)
--- NOTE | 2017-05-08 10:31 | MB ---
cc: JACKSON BUTLER M.D., TARA D. M.D. KHANNA, SOHIT K. MD DEVERAS, RUBY ANNE E. M.D. DATE OF CONSULTATION: 05/08/2017 1975 DATE OF SERVICE 05/08/[address] Johanna Heart. CHIEF COMPLA[address]. Heart requested consultation for Mr. Turner with mediastinal mass. HISTORY OF PRESENT ILLNESS Mr. Turner is a 42-year-old man, well-known patient to my partner Dr. Dang Butler, who signed him out to me as he is out of town. Mr. Turner presented with right-sided chest pain in the emergency room April 12. He had some right arm numbness. His cardiac etiology chest pain was ruled out. He continued to have similar symptoms. Chest x-ray at urgent care showed a bad pneumonia and was referred to the hospital. In the hospital CT scan of the chest from April 26, 2017 showed a large 7.6 x 14.2 x 7.0 anterior mediastinal mass with extension to the prevascular space. The differential include a thymic tumor versus lymphoma. CT-guided biopsy was performed on April 29. Unfortunately, the diagnosis could not be established from the CT-guided biopsy. Flow cytometric analysis showed a CD-4, CD-8 double positive T-cell population detected which could be found in either T-cell lymphoma or a thymoma. On last visit with Dr. Butler T-cell gene rearrangement was being coordinated, however, on discussion with pathology they did not have enough material for the T-cell gene rearrangement which would take about 2 weeks. On an outpatient basis the patient's repeat biopsy was being coordinated. The case was discussed with Dr. Zacarias radiology as well as the pathology. A repeat biopsy would include one and a sample sent for flow cytometry. Mr. Turner's symptoms worsened prompting him to come into the emergency room again on 05/08/2017 before we could arrange the repeat biopsy. He is acutely symptomatic. He has difficulty expressing himself. He has to sit up. He is in a significant amount of pain. He has abdominal pain. He has complications from pain medication with constipation. Hematology/Oncology is consulted regarding this mass. PAST MEDICAL HISTORY Asthma, herniated disc. PAST SURGICAL HISTORY CT-guided biopsy. ALLERGIES NO KNOWN DRUG ALLERGIES. FAMILY HISTORY Father of [place]. Mother is alive and well. SOCIAL HISTORY He is and lives with his . Denies any tobacco, alcohol or illicit drug use. He works for a [employer] company. PHYSICAL EXAMINATION VITAL SIGNS: Temperature 98.2, heart rate 96, respiratory rate 22, blood pressure 110/81, saturation 95%. GENERAL: Mr. Turner is a well-developed, well-nourished man who looks his stated age. He is uncomfortable trying to breathe. He has overt wheezing and shortened sentences. EYES: His pupils are round, reactive to light and accommodation. OROPHARYNX: Clear. NECK: Supple. LUNGS: With wheezing throughout. CARDIOVASCULAR: Exam reveals tachycardia. ABDOMEN: Abdomen is benign. LOWER EXTREMITIES: No edema. LABORATORY DATA CBC is normal. BUN, creatinine are normal. C-reactive protein is elevated. LDH is 249 from April 29. ASSESSMENT/PLAN Mr. Turner is a 42-year-old man with a large mediastinal mass. Differential include a thymoma versus a T-cell lymphoma. The differential diagnosis could not be confirmed one way or another with the biopsy available. I discussed the case with the interventional radiologist to proceed with ultrasound-guided thoracentesis or CT-guided thoracentesis along with repeat biopsy to confirm a diagnosis. The thoracentesis may alleviate some of his symptoms. His pleural effusion has worsened significantly. The mass clinically has increased in size. Biopsy could be performed. I discussed with cardiothoracic surgery, Dr. Zamorano covering for Dr. Frey. We discussed the risks and benefits of potentially resecting this lesion given the fact that he is acutely symptomatic. A resection of the mass would be definitive surgery for thymoma. If he in essence turns out to have a lymphoma, he would receive additional chemotherapy after. In light of the acute symptoms, would be in favor of resection if it is feasible. If he is not a candidate for resection, consult with radiation oncology for palliative treatment. A biopsy is being coordinated to arrange for treatment pending the biopsy results which may take about 2 weeks. In the meantime since Mr. Turner is acutely symptomatic he will need treatment. Mr. Turner's questions were answered to his satisfaction. The above is explained at length. MD FAHEEM Viera/RAYMOND /9:49 AM /10:05 AM
--- NOTE | 2017-05-08 11:38 | RADRPT ---
EXAM DATE/TIME: 05/08/2017 11:27 [facility] COMPARISON: CHEST EXPIRATION ONLY, April 29, 2017, 14:13. INDICATIONS : Post Thoracentesis. MEDICAL HISTORY : Cardiovascular disease. Hypertension. Mediastinal mass. SURGICAL HISTORY : None. ENCOUNTER: Subsequent ACUITY: 1 day PAIN SCORE: 5/10 LOCATION: Bilateral chest FINDINGS: There is no pneumothorax following right thoracentesis. Consolidative changes right base. Left lung is clear. CONCLUSION: Consolidative changes and effusion persisting right base negative for pneumothorax. Román Howard MD FACR on May 08, 2017 at 11:35 Board Certified Radiologist. This report was verified electronically.
[2017-05-08] MEDS ORDERED: LIDOCAINE HCL 1% 20 ML VIAL ONE (11:46)
--- NOTE | 2017-05-08 13:32 | RADRPT ---
EXAM DATE/TIME: 05/08/2017 10:35 [facility] COMPARISON: US GUIDED THORACENTESIS RIGHT, April 27, 2017, 14:58. INDICATIONS : Right pleural effusion. MEDICAL HISTORY : Hypertension. Arthritis. Herniated disc. Neck pain. Pleural effusion. SURGICAL HISTORY : Mediastinal tumor biopsy. Shoulder surgery. Thoracentesis. ENCOUNTER: Subsequent ACUITY: 2 weeks PAIN SCORE: 10/10 LOCATION: Right chest FLUID: Total volume of 2,475 cc of cloudy, red fluid was removed. Fluid was sent to lab for ordered studies. TECHNIQUE: 1. Ultrasound guidance for thoracentesis. 2. Thoracentesis. The risks, benefits, and alternatives to ultrasound guided thoracentesis were explained to the patien t in lay simple terms, including the risk of bleeding and infection. Written and verbal informed con sent was obtained. Appropriate area for thoracentesis was marked under ultrasound guidance with the patient in the uprig ht position. Overlying skin was prepped and draped in the usual sterile fashion and with local anest hetic, a dermatotomy was made with an 11 blade scalpel. A 6 Mongolian thoracentesis catheter was placed in the pleural space and fluid was removed. Catheter was then removed and a sterile dressing applie d. There were no immediate complications. The patient tolerated the procedure well and the left the ultrasound suite in stable condition. Chest radiograph is to be obtained. CONCLUSION: Uncomplicated ultrasound guided thoracentesis. Alonso Leonardo MD on May 08, 2017 at 13:29 Board Certified Radiologist. This report was verified electronically.
--- NOTE | 2017-05-08 13:36 | PD.CAR.PN ---
CVT Progress Note Subjective/Hospital Course: 42 y/o male seen by Dr. Frey ~10 days ago for a large mediastinal mass of unknown etiology. The patient also had a right pleural effusion which was drained. He had a percutaneous biopsy which was suggestive of lymphoma vs thymoma and there was not enough tissue for further characterization. He returned to the ED today with right chest wall, back, and abdominal pain. He states he has not had a bowel movement since his prior hospitalization. He underwent repeat thoracentesis of ~2.5 liters today and remains very uncomfortable. He is being considered for surgical intervention. Objective: Vital Signs Date Time Temp Pulse Resp B/P (MAP) Pulse Ox O2 Delivery O2 Flow Rate FiO2 05/08/17 12:00 78 22 130/68 (88) 94 Nasal Cannula 3.00 05/08/17 11:45 98.0 88 20 119/59 (79) 94 Nasal Cannula 3.00 05/08/17 09:00 96 22 110/81 (91) 95 Nasal Cannula 3.00 05/08/17 07:17 87 21 113/75 (88) 94 Nasal Cannula 3.00 05/08/17 05:00 83 22 124/72 (89) 94 Nasal Cannula 2.00 05/08/17 04:00 94 Nasal Cannula 2.00 05/08/17 03:57 99 24 133/81 (98) 90 Room Air 120/63 (82) 05/08/17 03:41 98.2 113 34 153/93 (113) 92 Room Air Labs: Laboratory Tests Test 05/08/17 04:00 05/08/17 11:11 White Blood Count 6.0 TH/MM3 (4.0-11.0) Red Blood Count 5.02 MIL/MM3 (4.50-5.90) Hemoglobin 14.0 GM/DL (13.0-17.0) Hematocrit 41.1 % (39.0-51.0) Mean Corpuscular Volume 82.0 FL (80.0-100.0) Mean Corpuscular Hemoglobin 27.8 PG (27.0-34.0) Mean Corpuscular Hemoglobin Concent 33.9 % (32.0-36.0) Red Cell Distribution Width 14.1 % (11.6-17.2) Platelet Count 231 TH/MM3 (150-450) Mean Platelet Volume 7.5 FL (7.0-11.0) Neutrophils (%) (Auto) 67.4 % (16.0-70.0) Lymphocytes (%) (Auto) 17.0 % (9.0-44.0) Monocytes (%) (Auto) 12.6 % (0.0-8.0) Eosinophils (%) (Auto) 2.5 % (0.0-4.0) Basophils (%) (Auto) 0.5 % (0.0-2.0) Neutrophils # (Auto) 4.0 TH/MM3 (1.8-7.7) Lymphocytes # (Auto) 1.0 TH/MM3 (1.0-4.8) Monocytes # (Auto) 0.8 TH/MM3 (0-0.9) Eosinophils # (Auto) 0.2 TH/MM3 (0-0.4) Basophils # (Auto) 0.0 TH/MM3 (0-0.2) CBC Comment DIFF FINAL Differential Comment Prothrombin Time 10.4 SEC (9.8-11.6) Prothromb Time International Ratio 1.0 RATIO Activated Partial Thromboplast Time 28.1 SEC (24.3-30.1) D-Dimer Quantitative (PE/DVT) 0.98 MG/L FEU (0.00-0.50) Blood Urea Nitrogen 16 MG/DL (7-18) Creatinine 1.03 MG/DL (0.60-1.30) Random Glucose 113 MG/DL (74-106) Total Protein 7.2 GM/DL (6.4-8.2) Albumin 3.3 GM/DL (3.4-5.0) Calcium Level 8.7 MG/DL (8.5-10.1) Alkaline Phosphatase 67 U/L (45-117) Aspartate Amino Transf (AST/SGOT) 29 U/L (15-37) Alanine Aminotransferase (ALT/SGPT) 52 U/L (12-78) Total Bilirubin 0.4 MG/DL (0.2-1.0) Sodium Level 137 MEQ/L (136-145) Potassium Level 3.8 MEQ/L (3.5-5.1) Chloride Level 102 MEQ/L (98-107) Carbon Dioxide Level 29.0 MEQ/L (21.0-32.0) Anion Gap 6 MEQ/L (5-15) Estimat Glomerular Filtration Rate 79 ML/MIN (>89) C-Reactive Protein 10.10 MG/DL (0.00-0.30) Lipase 186 U/L (73-393) Result Diagram: 05/08/1739905/08/17399 Imaging: Last Impressions CT Angiography 05/08/1714 Signed Impressions: Service Date/Time: Monday, May 08, 2017 05:26 - CONCLUSION: 1. No pulmonary embolus. 2. Large right pleural effusion with possible pleural based mass is seen posterior leak. 3. Large superior mediastinum mass and adenopathy in the left epicardial regions concerning for neoplastic processes such as lymphoma. The large mass has already been biopsied. Bienvenido Lockett MD Abdomen X-Ray 05/08/17430 Signed Impressions: Service Date/Time: Monday, May 08, 2017 04:48 - CONCLUSION: Large right pleural effusion. Bienvenido Lockett MD Chest X-Ray 05/08/179 Signed Impressions: Service Date/Time: Monday, May 08, 2017 04:47 - CONCLUSION: Development of a large right pleural effusion. Bienvenido Lockett MD Cardiovascular: RRR Telemetry: NSR Pulmonary: Decreased BS on right GI/: Decreased BS, soft, mildly tender Plan: Unfortunate 42 y/o male presents with a large mediastinal mass and recurrent right pleural effusion. The diagnosis has not been established, but this mass is behaving like an aggressive malignant process. I discussed the possibility of surgical exploration with the patient and his for ~1 hour. I cannot offer this patient any guarantee of benefit from surgical intervention as the tumor may be very vascular or invading vital structures. I discussed this further with Dr. Leigh who also brought Dr. Sánchez into the conversation. They are in favor of surgery as there is no firm diagnosis from which to recommend treatment and the patient has been very symptomatic with progressive functional decline. I will offer him median sternotomy for exploration and incisional or excisional biopsy of this mass. Alessandra Tinsley MD May 08, 2017 13:36
[2017-05-08] MEDS ORDERED: LIDOCAINE 1%/EPINEPHrine 1:100,000 SOLN 20 ML VIAL ONE (13:52)
[2017-05-08] MEDS ORDERED: MIDAZOLAM HCL 5 MG/5 ML VIAL ONE (14:29)
[2017-05-08] MEDS ORDERED: CHLORHEXIDINE GLUCONATE 4% SOLN 120 ML BTL TOPICAL SCH (14:30)
[2017-05-08] MEDS ORDERED: CEFAZOLIN INJ 500 MG in SODIUM CHLORIDE 0.9% IRR BTL 500 ML IRRIGATION SCH (14:30)
[2017-05-08] MEDS ORDERED: ceFAZolin 2 GM PREMIX 50 ML IV SCH (14:30)
[2017-05-08 14:33] LABS: PLEURAL FLUID LYMPHS 2 %
--- NOTE | 2017-05-08 15:11 | PD.RAD ---
Post CT Procedure Prog Note Pre Procedure Diagnosis: (1) Mediastinal mass Post Procedure Diagnosis: (1) Mediastinal mass Procedure Date: May 08, 2017 Supervising Radiologist: Abilio Murphy JR Anesthesia: Conscious Sedation Plan of Activity Patient to Unit: ROPU Patient Condition: Good See PACS Report for procedural detail/treatment Biopsy Imaging Guidance: CT Biopsy Procedure: Mediastinal Mass Specimen: Core Biopsy Findings: Multiple core samples of large anterior/superior mediastinal mass. No complications seen on postbx CT. Jr. Jeffrey,Abilio Angeles MD May 08, 2017 15:11
--- NOTE | 2017-05-08 15:29 | HHI.HP ---
[facility] No Primary Care Physician Admission Diagnosis shortness of breath, large recurrent pleural effusion with mediastin Diagnoses: Chief Complaint: sob Travel History International Travel<30 Days: No Contact w/Intl Traveler <30 Da: No Traveled to Known Affected Are: No History of Present Illness Very unfortunate 42-year-old male with primary medical history of asthma and recently discharged after he was found with large mediastinal mass. Patient presents with a large mediastinal mass and recurrent right pleural effusion with sob, right chest wall, back, and abdominal pain. 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 Patient was seen by Dr. Frey ~10 days ago for a large mediastinal mass of unknown etiology. The patient also had a right pleural effusion which was drained at that time and was discharged home to follow up as OP with hem/onc and surgeon. He had a percutaneous biopsy which was suggestive of lymphoma vs thymoma and there was not enough tissue for further characterization. He returned to the ED today with right chest wall, back, and abdominal pain. He states he has not had a bowel movement since his prior hospitalization. He underwent repeat thoracentesis of ~2.5 liters today and remains very uncomfortable. The diagnosis has not been established, but this mass is behaving like an aggressive malignant process. He is being considered for surgical intervention by CTS however per CTS cannot offer this patient any guarantee of benefit from surgical intervention as the tumor may be very vascular or invading vital structures. Patient /family are in favor for surgery. Plan for rad /chemo first. Review of Systems Except as stated in HPI: all other systems reviewed are Neg Past Family Social History Past Medical History Asthma Recently diagnosed with Large mediastinal mass Past Surgical History None Reported Medications Reported Meds & Active Scripts Active Senna-Lax (Sennosides) 8.6 Mg Tab 17.2 Mg PO Q12H PRN Reported Morphine ER (Morphine Sulfate) 30 Mg Tab 30 Mg PO BID [no active meds] Allergies: Coded Allergies: No Known Allergies (Unverified , 05/08/17) Family History Father and grandfather of heart attack Social History Denies alcohol use Denies tobacco use Denies illicit drug use Physical Exam Vital Signs Vital Signs Date Time Temp Pulse Resp B/P (MAP) Pulse Ox O2 Delivery O2 Flow Rate FiO2 05/08/17 14:45 Nasal Cannula 3.00 05/08/17 14:10 05/08/17 14:00 88 22 142/80 (100) 94 Nasal Cannula 3.00 05/08/17 13:00 90 20 148/87 (107) 94 Nasal Cannula 3.00 05/08/17 12:00 78 22 130/68 (88) 94 Nasal Cannula 3.00 05/08/17 11:45 98.0 88 20 119/59 (79) 94 Nasal Cannula 3.00 05/08/17 09:00 96 22 110/81 (91) 95 Nasal Cannula 3.00 05/08/17 07:17 87 21 113/75 (88) 94 Nasal Cannula 3.00 05/08/17 05:00 83 22 124/72 (89) 94 Nasal Cannula 2.00 05/08/17 04:00 94 Nasal Cannula 2.00 05/08/17 03:57 99 24 133/81 (98) 90 Room Air 120/63 (82) 05/08/17 03:41 98.2 113 34 153/93 (113) 92 Room Air Physical Exam GENERAL: This is a very pleasant 42 yo male, well-nourished, well-developed patient, in no apparent distress. SKIN: No rashes, ecchymoses or lesions. Cool and dry. HEAD: Atraumatic. Normocephalic. No temporal or scalp tenderness. EYES: Pupils equal round and reactive. Extraocular motions intact. No scleral icterus. No injection or drainage. ENT: Nose without bleeding, purulent drainage or septal hematoma. Throat without erythema, tonsillar hypertrophy or exudate. Uvula midline. Airway patent. NECK: Trachea midline. No JVD or lymphadenopathy. Supple, nontender, no meningeal signs. CARDIOVASCULAR: Regular rate and rhythm without murmurs, gallops, or rubs. RESPIRATORY: Clear to auscultation. Breath sounds equal bilaterally. No wheezes , rales, or rhonchi. GASTROINTESTINAL: Abdomen soft, non-tender, nondistended. No hepato-splenomegaly , or palpable masses. No guarding. MUSCULOSKELETAL: Extremities without clubbing, cyanosis, or edema. No joint tenderness, effusion, or edema noted. No calf tenderness. Negative Homans sign bilaterally. NEUROLOGICAL: Awake and alert. Cranial nerves II through XII intact. Motor and sensory grossly within normal limits. Five out of 5 muscle strength in all muscle groups. Normal speech. Laboratory Laboratory Tests Test 05/08/17 04:00 05/08/17 11:11 White Blood Count 6.0 Red Blood Count 5.02 Hemoglobin 14.0 Hematocrit 41.1 Mean Corpuscular Volume 82.0 Mean Corpuscular Hemoglobin 27.8 Mean Corpuscular Hemoglobin Concent 33.9 Red Cell Distribution Width 14.1 Platelet Count 231 Mean Platelet Volume 7.5 Neutrophils (%) (Auto) 67.4 Lymphocytes (%) (Auto) 17.0 Monocytes (%) (Auto) 12.6 Eosinophils (%) (Auto) 2.5 Basophils (%) (Auto) 0.5 Neutrophils # (Auto) 4.0 Lymphocytes # (Auto) 1.0 Monocytes # (Auto) 0.8 Eosinophils # (Auto) 0.2 Basophils # (Auto) 0.0 CBC Comment DIFF FINAL Differential Comment Prothrombin Time 10.4 Prothromb Time International Ratio 1.0 Activated Partial Thromboplast Time 28.1 D-Dimer Quantitative (PE/DVT) 0.98 Blood Urea Nitrogen 16 Creatinine 1.03 Random Glucose 113 Total Protein 7.2 Albumin 3.3 Calcium Level 8.7 Alkaline Phosphatase 67 Aspartate Amino Transf (AST/SGOT) 29 Alanine Aminotransferase (ALT/SGPT) 52 Total Bilirubin 0.4 Sodium Level 137 Potassium Level 3.8 Chloride Level 102 Carbon Dioxide Level 29.0 Anion Gap 6 Estimat Glomerular Filtration Rate 79 C-Reactive Protein 10.10 Lipase 186 Pleural Fluid WBC 28171 Pleural Fluid RBC 09174 Pleural Fluid Neutrophils 0 Pleural Fluid Lymphocytes 2 Pleural Fluid Monocytes 3 Pleural Fluid Histiocytes 3 Pleural Fluid Other Cells 92 Date/Time Source Procedure Growth Status 05/08/17 11:11 Fluid Pleural Fluid Gram Stain - Final Resulted 05/08/17 11:11 Fluid Pleural Fluid Body Fluid Culture Pending Resulted Result Diagram: 05/08/1739905/08/[address] Angiography 05/08/17 0514 Signed Impressions: Service Date/Time: Monday, May 08, 2017 05:26 - CONCLUSION: 1. No pulmonary embolus. 2. Large right pleural effusion with possible pleural based mass is seen posterior leak. 3. Large superior mediastinum mass and adenopathy in the left epicardial regions concerning for neoplastic processes such as lymphoma. The large mass has already been biopsied. Bienvenido Lockett MD Abdomen X-Ray 05/08/17 0431 Signed Impressions: Service Date/Time: Monday, May 08, 2017 04:48 - CONCLUSION: Large right pleural effusion. Bienvenido Lockett MD Chest X-Ray 05/08/17 0429 Signed Impressions: Service Date/Time: Monday, May 08, 2017 04:47 - CONCLUSION: Development of a large right pleural effusion. Bienvenido Lockett MD Thoracentesis Ultrasound 05/08/17 0000 Signed Impressions: Service Date/Time: Monday, May 08, 2017 10:35 - CONCLUSION: Uncomplicated ultrasound guided thoracentesis. Alonso Leonardo MD Caparii VTE Risk Assessment Caprini VTE Risk Assessment: No/Low Risk (score <= 1) Caprini Risk Assessment Model Point Value = 1 Point Value = 2 Point Value = 3 Point Value = 5 Age 41-60 Minor surgery BMI > 25 kg/m2 Swollen legs Varicose veins or History of unexplained or recurrent spontaneous Oral contraceptives or hormone replacement Sepsis (< 1 month) Serious lung disease, including pneumonia (< 1 month) Abnormal pulmonary function Acute myocardial infarction Congestive heart failure (< 1 month) History of inflammatory bowel disease Medical patient at bed rest Age 61-74 Arthroscopic surgery Major open surgery (> 45 min) Laparoscopic surgery (> 45 min) Malignancy Confined to bed (> 72 hours) Immobilizing plaster cast Central venous access Age >= 75 History of VTE Family history of VTE Factor V Leiden Prothrombin [id number] Lupus anticoagulant Anticardiolipin antibodies Elevated serum homocysteine Heparin-induced thrombocytopenia Other congenital or acquired thrombophilia Stroke (< 1 month) Elective arthroplasty Hip, pelvis, or leg fracture Acute spinal cord injury (< 1 month) Prophylaxis Regimen Total Risk Factor Score Risk Level Prophylaxis Regimen 0-1 Low Early ambulation 2 Moderate Order ONE of the following: *Sequential Compression Device (SCD) *Heparin 5000 units SQ BID 3-4 Higher Order ONE of the following medications: *Heparin 5000 units SQ TID *Enoxaparin/Lovenox 40 mg SQ daily (WT < 150 kg, CrCl > 30 mL/min) *Enoxaparin/Lovenox 30 mg SQ daily (WT < 150 kg, CrCl > 10-29 mL/min) *Enoxaparin/Lovenox 30 mg SQ BID (WT < 150 kg, CrCl > 30 mL/min) AND/OR *Sequential Compression Device (SCD) 5 or more Highest Order ONE of the following medications: *Heparin 5000 units SQ TID (Preferred with Epidurals) *Enoxaparin/Lovenox 40 mg SQ daily (WT < 150 kg, CrCl > 30 mL/min) *Enoxaparin/Lovenox 30 mg SQ daily (WT < 150 kg, CrCl > 10-29 mL/min) *Enoxaparin/Lovenox 30 mg SQ BID (WT < 150 kg, CrCl > 30 mL/min) AND *Sequential Compression Device (SCD) Assessment and Plan Assessment and Plan Patient is a 42-year-old male with primary medical history of asthma, mediastinal mass, pleural effusion who came into the hospital for evaluation of worsening cough, right-sided chest pain. Mediastinal mass Recurrent right pleural effusion Acute Respiratory failure 2/2 above. IR consulted, S/P Multiple core samples of large anterior/superior mediastinal mass. No complications seen on postbx CT. Imaging reviewed and findings discussed with Dr Leigh oncology Consult oncology for further evaluation and recommendation, seen by Dr Leigh S/p repeat thoracentesis of ~2.5 liters 05/08 The diagnosis has not been established, but this mass is behaving like an aggressive malignant process. He is being considered for surgical intervention by CTS however per CTS cannot offer this patient any guarantee of benefit from surgical intervention as the tumor may be very vascular or invading vital structures. Patient /family are in favor for surgery. Plan for rad /chemo first. Pain management IV Morphine breakthrough pain , and long acting morphine Follow up labs in a.m. DuoNeb scheduled and when necessary Monitor respiratory status Constipation: Bowel regimen. Anxiety Ativan 0.5 mg po q8 hrs prn DVT prop SCD Discussed Condition With patient , nurse,family at [facility] , Dr Leigh, hem/onc Physician Certification 2 Midnight Certification Type: Admission for Inpatient Services Order for Inpatient Services The services are ordered in accordance with Medicare regulations or non- Medicare payer requirements, as applicable. In the case of services not specified as inpatient-only, they are appropriately provided as inpatient services in accordance with the 2-midnight benchmark. Estimated LOS (days): 3 days is the estimated time the patient will need to remain in the hospital, assuming treatment plan goals are met and no additional complications. Post-Hospital Plan: Not yet determined Adele Lares MD May 08, 2017 15:29
--- NOTE | 2017-05-08 15:58 | RADRPT ---
EXAM DATE/TIME: 05/08/2017 14:43 [place] COMPARISON: CT MEDIASTINAL BIOPSY, April 29, 2017, 12:54. INDICATIONS : Mediastinal mass. Repeat biopsy needed for special stains requiring more tissue. SEDATION TIME: 20 minutes BIOPSY SITE: mediastinum MEDICATION(S): 1.) 2 mg midazolam (Versed) IV 2.) 150 mcg fentanyl (Sublimaze) IV DEVICE(S): 1.) 15 gauge introducer 2.) 18 gauge BioPince MEDICAL HISTORY : None. SURGICAL HISTORY : None. ENCOUNTER: Initial ACUITY: 1 day PAIN SCORE: 10/10 LOCATION: chest A total of 3 core specimen(s) were obtained and sent to the laboratory for pathologic evaluation. PROCEDURE: 1. CT guided mediastinal biopsy. 2. Conscious sedation with continuous EKG and oximetry monitoring. 3. EKG and oximetry remained stable throughout the procedure. Prior to the procedure informed consent was obtained. Any appropriate prior imaging studies were rev iewed. Using automated exposure control and adjustment of the mA and/or kV according to patient size, radiat ion dose was kept as low as reasonably achievable to obtain optimal diagnostic quality images. DICOM format image data is available electronically for review and comparison. The site was prepped in a sterile fashion. Full sterile technique was used, including cap, mask, jong rile gloves and gown and a large sterile sheet. Hand hygiene and 2% chlorhexidine and/or betadine/al cohol prep was utilized per protocol for cutaneous antisepsis. The skin and subcutaneous tissues wer e infiltrated with local anesthetic solution. With CT guidance the previously identified target was localized. Biopsy was performed using the presc ribed needle as above. Adequate hemostasis was obtained with compression at the puncture site. Follow-up CT scan reveals no hemorrhage. The patient tolerated the procedure well and there were no complications. The patient was returned to the Radiology Outpatient Unit in stable condition. CONCLUSION: Uncomplicated CT guided biopsy of an anterior/superior mediastinal mass.. Abilio Murphy Jr., MD on May 08, 2017 at 15:55 Board Certified Radiologist. This report was verified electronically.
[2017-05-08] MEDS ORDERED: BISACODYL 10 MG SUPP RECTAL PRN ×2 (16:00→17:15)
[2017-05-08] MEDS ORDERED: LACTULOSE SYRUP 20 GM/30 ML CUP PO PRN ×2 (16:00→17:15)
[2017-05-08] MEDS ORDERED: SOD PHOSPHATE/SOD BIPHOSPHATE (ADULT) ENEMA 133ML RECTAL PRN (17:15)
[2017-05-08] MEDS: MORPHINE SULFATE 2 MG/ML INJ IV PUSH PRN ×2 (17:21→21:21)
[2017-05-08] MEDS: SODIUM CHLORIDE 0.9% FLUSH 10 ML FLUSH IV FLUSH SCH (17:24)
[2017-05-08] MEDS: MORPHINE SULFATE 30 MG CONTROLLED RELEASE TAB PO SCH (20:14)
[2017-05-08] MEDS: DOCUSATE SODIUM 50 MG/SENNA 8.6 MG TAB PO SCH (20:15)
[2017-05-08] MEDS ORDERED: DOCUSATE SODIUM 50 MG/SENNA 8.6 MG TAB PO SCH ×2 (21:00)
[2017-05-08] MEDS: LORazepam 0.5 MG TAB PO PRN (22:08)
[2017-05-08] MEDS: HYDROmorphone HCL PF 2 MG/ML VIAL IV PUSH PRN (22:56)
[2017-05-09] VITALS (20 sets, daily range): BP systolic 114–147; BP diastolic 54–92; PULSE 85–121; RESP 18–24; TEMP 98.2–99.4; O2SAT 90–94
[2017-05-09] MEDS: RESP: ALBUTEROL 2.5 MG/IPRATROPIUM 0.5 MG NEB (SCH) NEB ×4 (03:52→22:00)
[2017-05-09] MEDS: HYDROmorphone HCL PF 2 MG/ML VIAL IV PUSH PRN (04:38)
[2017-05-09 06:20] LABS: AUTOMATED NEUTROPHIL # 4.7 TH/MM3 (1.8-7.7); BASOPHIL % 0.7 % (0.0-2.0); EOSINOPHIL # 0.2 TH/MM3 (0-0.4); EOSINOPHIL % 3.2 % (0.0-4.0); HEMATOCRIT 40.3 % (39.0-51.0); HEMO FLAGS DIFF FINAL; LYMPH % 12.8 % (9.0-44.0); LYMPHOCYTE # 0.9 TH/MM3 (1.0-4.8); MEAN CELL VOLUME 82.5 FL (80.0-100.0); MEAN CORPUSCULAR HEMOGLOBIN 27.7 PG (27.0-34.0); MEAN CORPUSCULAR HGB CONC 33.6 % (32.0-36.0); MONO % 13.2 % (0.0-8.0); NEUT % 70.1 % (16.0-70.0); PLATELET COUNT 209 TH/MM3 (150-450); RED BLOOD COUNT 4.88 MIL/MM3 (4.50-5.90); RED CELL DISTRIBUTION WIDTH 14.1 % (11.6-17.2); WHITE BLOOD COUNT 6.7 TH/MM3 (4.0-11.0)
[2017-05-09 07:23] LABS: POTASSIUM 3.9 MEQ/L (3.5-5.1)
[2017-05-09] MEDS ORDERED: SOD PHOSPHATE/SOD BIPHOSPHATE (ADULT) ENEMA 133ML PR ONE (08:00)
[2017-05-09] MEDS ORDERED: BISACODYL 10 MG SUPP RECTAL ONE (08:00)
[2017-05-09] MEDS: SODIUM CHLORIDE 0.9% FLUSH 10 ML FLUSH IV FLUSH SCH ×2 (08:50→21:00)
[2017-05-09] MEDS: MORPHINE SULFATE 30 MG CONTROLLED RELEASE TAB PO SCH (08:50)
[2017-05-09] MEDS: HYDROmorphone HCL PF 2 MG/ML VIAL IV PUSH SCH ×5 (08:50→20:00)
[2017-05-09] MEDS: DOCUSATE SODIUM 50 MG/SENNA 8.6 MG TAB PO SCH ×2 (08:50→20:49)
[2017-05-09] MEDS: POLYETHYLENE GLYCOL 17 GM PKG PO SCH (08:55)
--- NOTE | 2017-05-09 12:00 | PD.ONC.PN ---
Subjective Subjective Remarks I am in so much pain it makes me cry. Objective Data Date Time Temp Pulse Resp B/P (MAP) Pulse Ox O2 Delivery O2 Flow Rate FiO2 05/09/17 11:45 22 05/09/17 11:44 22 05/09/17 06:00 85 05/09/17 05:00 90 05/09/17 04:00 96 05/09/17 04:00 98.4 97 18 125/54 (77) 94 05/09/17 03:00 90 05/09/17 02:00 92 05/09/17 01:00 96 05/09/17 00:00 99.4 99 18 147/89 (108) 94 05/09/17 00:00 92 05/08/17 23:00 98 05/08/17 22:00 96 05/08/17 21:22 93 Nasal Cannula 3.00 05/08/17 21:00 90 05/08/17 20:00 99 05/08/17 20:00 98.4 96 18 140/86 (104) 95 05/08/17 18:01 98.4 97 18 115/80 (92) 92 05/08/17 16:30 83 20 130/77 (94) 94 05/08/17 16:10 83 20 122/72 (89) 94 05/08/17 15:40 87 20 125/76 (92) 95 05/08/17 15:25 98.8 92 20 127/73 (91) 92 05/08/17 15:25 98.8 20 20 127/73 (91) 92 05/08/17 14:45 Nasal Cannula 3.00 05/08/17 14:10 05/08/17 14:00 88 22 142/80 (100) 94 Nasal Cannula 3.00 05/08/17 13:00 90 20 148/87 (107) 94 Nasal Cannula 3.00 05/08/17 12:00 78 22 130/68 (88) 94 Nasal Cannula 3.00 05/09/17 05/09/17 05/09/17 07:00 15:00 23:00 Intake Total 1200 ml Output Total 200 ml Balance 1000 ml Result Diagram: 05/09/17 0502 05/09/17 0502 Laboratory Results Laboratory Tests Test 05/08/17 14:30 05/09/17 05:02 White Blood Count 6.7 TH/MM3 Red Blood Count 4.88 MIL/MM3 Hemoglobin 13.5 GM/DL Hematocrit 40.3 % Mean Corpuscular Volume 82.5 FL Mean Corpuscular Hemoglobin 27.7 PG Mean Corpuscular Hemoglobin Concent 33.6 % Red Cell Distribution Width 14.1 % Platelet Count 209 TH/MM3 Mean Platelet Volume 7.2 FL Neutrophils (%) (Auto) 70.1 % Lymphocytes (%) (Auto) 12.8 % Monocytes (%) (Auto) 13.2 % Eosinophils (%) (Auto) 3.2 % Basophils (%) (Auto) 0.7 % Neutrophils # (Auto) 4.7 TH/MM3 Lymphocytes # (Auto) 0.9 TH/MM3 Monocytes # (Auto) 0.9 TH/MM3 Eosinophils # (Auto) 0.2 TH/MM3 Basophils # (Auto) 0.0 TH/MM3 CBC Comment DIFF FINAL Differential Comment Blood Urea Nitrogen 14 MG/DL Creatinine 0.97 MG/DL Random Glucose 96 MG/DL Calcium Level 8.5 MG/DL Sodium Level 137 MEQ/L Potassium Level 3.9 MEQ/L Chloride Level 102 MEQ/L Carbon Dioxide Level 27.0 MEQ/L Anion Gap 8 MEQ/L Estimat Glomerular Filtration Rate 85 ML/MIN Culture Results Microbiology Date/Time Source Procedure Growth Status 05/08/17 11:11 Fluid Pleural Fluid Gram Stain - Final Resulted 05/08/17 11:11 Fluid Pleural Fluid Body Fluid Culture - Preliminary NO GROWTH IN 24 HOURS. Resulted Administered Medications Medications (Trade) Dose Ordered Sig/Suzan Route PRN Reason Start Time Stop Time Status Last Admin Dose Admin Albuterol/ Ipratropium (Duoneb Neb) 1 ampule Q6HR NEB NEB 05/08/17 12:00 05/08/17 21:18 Morphine Sulfate (Oramorph Sr) 30 mg BID PO 05/08/17 21:00 05/09/17 08:50 Sodium Chloride (NS Flush) 2 ml BID IV FLUSH 05/08/17 21:00 05/09/17 08:50 Lorazepam (Ativan) 0.5 mg Q8H PRN PO ANXIETY 05/08/17 17:00 05/08/17 22:08 Senna/Docusate Sodium (Naa-Colace) 2 tab BID PO 05/08/17 21:00 12/21/17 08:50 Hydromorphone HCl (Dilaudid Pf Inj) 1 mg Q3HR IV PUSH 05/09/17 09:00 05/10/17 08:59 05/09/17 08:50 Objective Remarks GENERAL: Well-nourished, anxious appearing man, well-developed patient. SKIN: Warm and dry. Writhing in bed trying to get comfortable. HEAD: Normocephalic. EYES: No scleral icterus. No injection or drainage. NECK: Supple, trachea midline. No JVD or lymphadenopathy. LYMPHATIC: No adenopathy. CARDIOVASCULAR: Regular rate and rhythm without murmurs. RESPIRATORY: Diminished breath sound on the right side. Overtly SOB. GASTROINTESTINAL: Abdomen soft, non-tender, nondistended. EXTREMITIES: No cyanosis, or edema. MUSCULOSKELETAL: Adequate muscle tone. NEUROLOGICAL: No obvious focal deficit. Awake, alert, and oriented x3. PSYCHIATRIC: Appropriate mood and affect; insight and judgment normal. Assessment/Plan Problem List: (1) Mediastinal mass ICD Codes: J98.59 - Other diseases of mediastinum, not elsewhere classified Status: Acute Plan: Enlarging mediastinal mass, now producing more symptoms of SOB. Pleural effusion on right worsen. Personal communication with pathologist yesterday, suggest malignant effusion with many abnormal cells. Flow cytometry sent and has been received but still pending. Repeat biopsy done, tissue available and abundant. Discussed with pathology today pending Ki67 and keratin, differential include T cell rich Thymoma vs ALL/T cell lymphoma. Still difficult differential for the pathologist to make. T cell gene rearrangement will take 2 weeks, second opinion will take time also. Meanwhile patient is acutely symptomatic. Coordinate BM biopsy evaluation for staging. Discussed with radiation oncologist, in light of acute symptoms, malignancy confirmed except definite diagnosis still pending. Plan for palliative XRT to alleviate some symptoms so pt can breathe. Discussed w/ CTS, difficult resection, with the above disease unlikely that he will be able to resect completely. Furthermore if a malignant thymoma, he has disease in pleural fluid. Defer definitive resection, tissue was obtained by biopsy. Assessment 42 y/o man with mediastinal mass and difficult diagnosis pathologically. Plan Cont support. Schedule pain medication. XRT for palliation. Chemo pending on more information if more likely thymoma versus T cell lymphoma. Aysha Leigh MD May 09, 2017 12:00
[2017-05-09] MEDS: RESP: ALBUTEROL 2.5 MG/IPRATROPIUM 0.5 MG NEB (PRN) NEB (12:06)
--- NOTE | 2017-05-09 16:14 | HHI.PR ---
Subjective Remarks Patient is complaining of severe pain in the right flank and right side of the abdomen, which she describes constant as 10/10. Pain is worst with movement, nonradiating. Patient denies fevers or chills, nausea, vomiting or abdominal pain. Patient also complaining of shortness of breath, however denies chest pain. Objective Vitals Vital Signs Date Time Temp Pulse Resp B/P (MAP) Pulse Ox O2 Delivery O2 Flow Rate FiO2 05/09/17 12:30 16 05/09/17 12:07 93 Nasal Cannula 3.00 05/09/17 11:44 22 05/09/17 06:00 85 05/09/17 05:00 90 05/09/17 04:00 96 05/09/17 04:00 98.4 97 18 125/54 (77) 94 05/09/17 03:00 90 05/09/17 02:00 92 05/09/17 01:00 96 05/09/17 00:00 99.4 99 18 147/89 (108) 94 05/09/17 00:00 92 05/08/17 23:00 98 05/08/17 22:00 96 05/08/17 21:22 93 Nasal Cannula 3.00 05/08/17 21:00 90 05/08/17 20:00 99 05/08/17 20:00 98.4 96 18 140/86 (104) 95 05/08/17 18:01 98.4 97 18 115/80 (92) 92 05/08/17 16:30 83 20 130/77 (94) 94 05/08/17 16:10 83 20 122/72 (89) 94 I/O 05/08/17 05/08/17 05/08/17 05/09/17 05/09/17 05/09/17 07:00 15:00 23:00 07:00 15:00 23:00 Intake Total 1000 ml 1200 ml Output Total 200 ml Balance 1000 ml 1000 ml Intake Oral 1200 ml IV Total 1000 ml Output Urine Total 200 ml # Voids 1 Result Diagram: 05/09/17 05005/09/17 [address] Angiography 05/08/17 0514 Signed Impressions: Service Date/Time: Monday, May 08, 2017 05:26 - CONCLUSION: 1. No pulmonary embolus. 2. Large right pleural effusion with possible pleural based mass is seen posterior leak. 3. Large superior mediastinum mass and adenopathy in the left epicardial regions concerning for neoplastic processes such as lymphoma. The large mass has already been biopsied. Bienvenido Lockett MD Abdomen X-Ray 05/08/17 0431 Signed Impressions: Service Date/Time: Monday, May 08, 2017 04:48 - CONCLUSION: Large right pleural effusion. Bienvenido Lockett MD Chest X-Ray 05/08/17 0429 Signed Impressions: Service Date/Time: Monday, May 08, 2017 04:47 - CONCLUSION: Development of a large right pleural effusion. Bienvenido Lockett MD Thoracentesis Ultrasound 05/08/17 0000 Signed Impressions: Service Date/Time: Monday, May 08, 2017 10:35 - CONCLUSION: Uncomplicated ultrasound guided thoracentesis. Alonso Leonardo MD Needle Biopsy CT 05/08/17 0000 Signed Impressions: Service Date/Time: Monday, May 08, 2017 14:43 - CONCLUSION: Uncomplicated CT guided biopsy of an anterior/superior mediastinal mass.. Abilio Murphy Jr., MD Objective Remarks GENERAL: This is a very pleasant 42 yo male, well-nourished, well-developed patient, in moderate distress due to pain. SKIN: No rashes, ecchymoses or lesions. Cool and dry. HEAD: Atraumatic. Normocephalic. No temporal or scalp tenderness. EYES: Pupils equal round and reactive. Extraocular motions intact. No scleral icterus. No injection or drainage. ENT: Nose without bleeding, purulent drainage or septal hematoma. Throat without erythema, tonsillar hypertrophy or exudate. Uvula midline. Airway patent. NECK: Trachea midline. No JVD or lymphadenopathy. Supple, nontender, no meningeal signs. CARDIOVASCULAR: Regular rate and rhythm without murmurs, gallops, or rubs. RESPIRATORY: Clear to auscultation. Breath sounds equal bilaterally. No wheezes , rales, or rhonchi. GASTROINTESTINAL:abdomen is soft, tender to palpation of right lower quadran, right flank, there is also an ecchymotic discoloration noted in the abdomen in the right lower quadrant. MUSCULOSKELETAL: Extremities without clubbing, cyanosis, or edema. No joint tenderness, effusion, or edema noted. No calf tenderness. Negative Homans sign bilaterally. NEUROLOGICAL: Awake and alert. Cranial nerves II through XII intact. Motor and sensory grossly within normal limits. Five out of 5 muscle strength in all muscle groups. Normal speech. Medications and IVs Current Medications Medications (Trade) Dose Ordered Sig/Suzan Route Start Time Stop Time Status Last Admin (Tylenol) 650 mg Q4H PRN PO 05/08/17 06:45 (Zofran Inj) 4 mg Q6H PRN IVP 05/08/17 06:45 (Duoneb Neb) 1 ampule Q6HR NEB NEB 05/08/17 12:00 05/08/17 21:18 (Duoneb Neb) 1 ampule Q2HR NEB PRN NEB 05/08/17 07:00 05/09/17 12:06 (Oramorph Sr) 30 mg BID PO 05/08/17 21:00 05/09/17 08:50 (Miralax) 17 gm DAILY PO 05/09/17 09:00 (NS Flush) 2 ml BID IV FLUSH 05/08/17 21:00 05/09/17 08:50 (NS Flush) 2 ml UNSCH PRN IV FLUSH 05/08/17 14:30 (Hibiclens 4% Top Soln) 1 applic POCKET CREASER TOPICAL 05/08/17 14:30 05/15/17 14:29 (Dulcolax Supp) 10 mg DAILY PRN RECTAL 05/08/17 16:00 (Lactulose Liq) 30 ml DAILY PRN PO 05/08/17 16:00 (Ativan) 0.5 mg Q8H PRN PO 05/08/17 17:00 05/08/17 22:08 (Narcan Inj) 0.4 mg UNSCH PRN IV PUSH 05/08/17 17:15 (Milk Of Magnesia Liq) 30 ml Q12H PRN PO 05/08/17 17:15 (Senokot) 17.2 mg Q12H PRN PO 05/08/17 17:15 (Dulcolax Supp) 10 mg DAILY PRN RECTAL 05/08/17 17:15 (Lactulose Liq) 30 ml DAILY PRN PO 05/08/17 17:15 (Naa-Colace) 2 tab BID PO 05/08/17 21:00 05/09/17 08:50 (Fleets Enema (Adult)) 133 ml UNSCH PRN RECTAL 05/08/17 17:15 (Dilaudid Pf Inj) 1 mg Q3HR IV PUSH 05/09/17 09:00 05/10/17 08:59 05/09/17 15:30 Urinary Catheter: No Vascular Central Line Catheter: No A/P Problem List: (1) Mediastinal mass ICD Code: J98.59 - Other diseases of mediastinum, not elsewhere classified Status: Acute Plan: 42-year-old male with initially presented with right-sided chest pain which was workup and cardiac etiology ruled out. Patient had an outpatient chest x-ray at an urgent care which showed pneumonia then he was referred to the hospital. The patient had a CT scan of the chest on 04/26/17 which showed a large [id number] anterior mediastinal mass with extension to the prevascular space. Patient had been seen by Dr. Butler and Dr. Leigh as an outpatient. Differential diagnosis include a thymic tumor versus lymphoma. CT- guided biopsy was performed on 04/29. Unfortunately, the diagnosis could not be established from the CT-guided biopsy. A repeat biopsy was being done as an outpatient, however the patient worsened prompting him to come to the emergency department on 05/08/17 before the repeat biopsy could be arranged. Initial plans were to perform a thoracentesis and a repeat biopsy which the patient had done on 05/08. Repeat CTA obtained during this admission on 05/08/17 showed a large right pleural effusion with possible pleural-based mass, large upper mediastinal mass and adenopathy in the left epicardial regions concerning for neoplastic process. Continue to follow-up recommendations as per medical oncology recommendations. As per oncology documentation. Dr. Leigh had personal communication with the pathologist yesterday with suggests malignant effusion with many abnormal cells. Flow cytometry has been sent but is still pending. Dr. Leigh discussed the case with radiation oncologist. In light of acute symptoms, malignancy is confirmed except definite diagnosis still pending. Now for palliative XRT to alleviate some symptoms so patient can breathe. CT surgery consulted area difficult resection. With the above disease unlikely that CT surgery will be able to resect completely. Definitive resection has been deferred. Chemotherapy pending on more information regarding thymoma versus distal lymphoma. (2) Recurrent right pleural effusion ICD Code: J90 - Pleural effusion, not elsewhere classified Status: Acute Plan: Status post ultrasound-guided paracentesis. Fluid showed 41,000 RBCs and 33,000s WBCs. (3) Shortness of breath ICD Code: R06.02 - Shortness of breath Status: Acute Plan: Patient is acutely shortness of breath at the moment of this interview. I will order stat chest x-ray to assess lung parenchyma. (4) Right flank pain ICD Code: R10.9 - Unspecified abdominal pain Plan: There is an ecchymotic area in the lower right side of the abdomen. There is severe tenderness over the right side of the abdomen and right flank which is very tender to palpation. I will order stat CT abdomen and pelvis to better evaluate this. Assessment and Plan DVT prophylaxis: SCDs, no chemoprophylaxis for now given suspicious ecchymotic area right side of the abdomen. Discharge Planning Continue to monitor in the medical floor. CT scan of the abdomen and chest x- ray were ordered. Michael Porter MD May 09, 2017 16:14
[2017-05-09] MEDS ORDERED: DIATRIZOATE MEGLUM/DIATRIZOATE SOD 9 ML CUP PO ONE (16:30)
--- NOTE | 2017-05-09 17:01 | RADRPT ---
EXAM DATE/TIME: 05/09/2017 16:34 [facility] COMPARISON: CHEST EXPIRATION ONLY, May 08, 2017, 11:27. CHEST SINGLE AP, May 08, 2017, 4:47. INDICATIONS : Shortness of breath. MEDICAL HISTORY : None. SURGICAL HISTORY : None. ENCOUNTER: Subsequent ACUITY: 1 day PAIN SCORE: 0/10 LOCATION: Bilateral chest FINDINGS: Stable small residual right pleural effusion and associated airspace disease in the right lower lobe. Cardiac silhouette is stable. Stable mediastinal prominence. Remainder of the exam is unchanged. CONCLUSION: 1. Stable small residual right pleural effusion and associated right lower lobe airspace disease. 2. Stable mediastinal prominence in this patient with history of mediastinal mass. 3. No significant interval change. Ash Stover MD on May 09, 2017 at 16:56 Board Certified Radiologist. This report was verified electronically.
[2017-05-09] MEDS: SODIUM CHLOR 0.9% 1000 ML INJ 1,000 ML IV SCH (18:15)
[2017-05-09] MEDS: ALLOPURINOL 300 MG TAB PO SCH (20:48)
[2017-05-09] MEDS ORDERED: ATROPINE SULFATE 1 MG/10 ML SYRINGE ONE (21:56)
[2017-05-09] MEDS ORDERED: IOHEXOL 350 MG/ML 10 ML VIAL (for RAD DIAG) IVCONTRAST ONE (22:14)
--- NOTE | 2017-05-09 22:27 | RADRPT ---
EXAM DATE/TIME: 05/09/2017 21:52 [facility] COMPARISON: CT ABDOMEN & PELVIS W CONTRAST, April 27, 2017, 19:18. INDICATIONS : Right abdomen pain. IV CONTRAST: 100 cc Omnipaque 350 (iohexol) IV ORAL CONTRAST: Prescribed oral contrast ingested. RADIATION DOSE: 6.67 CTDIvol (mGy) MEDICAL HISTORY : Hypertension. Mediastinal mass. SURGICAL HISTORY : Mediastinal biopsy. ENCOUNTER: Initial ACUITY: 1 day PAIN SCALE: 10/10 LOCATION: Right abdomen. TECHNIQUE: Volumetric scanning of the abdomen was performed. Using automated exposure control and adjustment of the mA and/or kV according to patient size, radiation dose was kept as low as reasonably achievable to obtain optimal diagnostic quality images. DICOM format image data is available electronically for review and comparison. FINDINGS: There has been a significant increase in the size of right pleural effusion when compared to prior CT scan 04/27/17. There is also development of collapse of the right lower lobe. There is subtle new m asses in the medial right lower chest adjacent to the medial hemidiaphragm. The largest measures 3.2 x 3.6 cm and spans between the abdomen and retrocrural region, best seen on image #30. The other ma sses appear to be related to the medial hemidiaphragm with the largest measuring 3.8 x 1.8 cm. The liver, gallbladder, spleen, kidneys, and renal glands are intact. Abdominal aorta is normal dime nsion. Visualized abdominal bowel is not distended. Stable enlarged nodes in the right cardiophreni c fat. Stable thickening of the anterior pericardium. CONCLUSION: Interval development of several new masses centered around the medial right hemidiaphragm with the 2 largest masses measuring 3.8 cm and 3.6 cm. There has also been a significant increase in size of ri ght pleural effusion and interval development of collapse of the right lower lobe. Abilio Merida MD on May 09, 2017 at 22:21 Board Certified Radiologist. This report was verified electronically.
[2017-05-10] VITALS (17 sets, daily range): BP systolic 93–144; BP diastolic 50–88; PULSE 81–124; RESP 18–22; TEMP 97.6–99.5; O2SAT 92–95
[2017-05-10] MEDS: HYDROmorphone HCL PF 2 MG/ML VIAL IV PUSH SCH ×2 (00:45→08:00)
[2017-05-10] MEDS: RESP: ALBUTEROL 2.5 MG/IPRATROPIUM 0.5 MG NEB (SCH) NEB ×4 (03:42→20:52)
[2017-05-10] MEDS: MORPHINE SULFATE 30 MG CONTROLLED RELEASE TAB PO SCH ×4 (06:40→21:05)
[2017-05-10 07:00] LABS: AUTOMATED NEUTROPHIL # 5.6 TH/MM3 (1.8-7.7); BASOPHIL % 0.5 % (0.0-2.0); EOSINOPHIL # 0.2 TH/MM3 (0-0.4); HEMATOCRIT 40.4 % (39.0-51.0); HEMO FLAGS DIFF FINAL; LYMPHOCYTE # 0.8 TH/MM3 (1.0-4.8); MEAN CELL VOLUME 81.7 FL (80.0-100.0); MEAN CORPUSCULAR HEMOGLOBIN 27.6 PG (27.0-34.0); MEAN CORPUSCULAR HGB CONC 33.7 % (32.0-36.0); MONO % 14.3 % (0.0-8.0); NEUT % 73.2 % (16.0-70.0); PLATELET COUNT 219 TH/MM3 (150-450); RED BLOOD COUNT 4.94 MIL/MM3 (4.50-5.90); WHITE BLOOD COUNT 7.6 TH/MM3 (4.0-11.0)
[2017-05-10 07:35] LABS: ALKALINE PHOSPHATASE 58 U/L (45-117); ALT (GPT) 34 U/L (12-78); ANION GAP 8 MEQ/L (5-15); AST (GOT) 46 U/L (15-37); BICARBONATE 27.9 MEQ/L (21.0-32.0); BLOOD UREA NITROGEN 21 MG/DL (7-18); CHLORIDE 101 MEQ/L (98-107); GLOMERULAR FILTRATION RATE 86 ML/MIN (>89); MAGNESIUM 2.6 MG/DL (1.5-2.5); POTASSIUM 4.3 MEQ/L (3.5-5.1); SODIUM (NA) 137 MEQ/L (136-145); TOTAL BILIRUBIN ADULT 0.6 MG/DL (0.2-1.0); URIC ACID 13.3 MG/DL (2.6-7.2)
[2017-05-10] MEDS: SODIUM CHLORIDE 0.9% FLUSH 10 ML FLUSH IV FLUSH SCH ×2 (09:00→20:00)
[2017-05-10] MEDS: POLYETHYLENE GLYCOL 17 GM PKG PO SCH (09:00)
[2017-05-10] MEDS: DOCUSATE SODIUM 50 MG/SENNA 8.6 MG TAB PO SCH ×2 (10:27→21:05)
[2017-05-10] MEDS: ALLOPURINOL 300 MG TAB PO SCH (10:31)
[2017-05-10] MEDS ORDERED: RASBURICASE INJ 7.5 MG in SODIUM CHLORIDE 0.9% INJ 50 ML IV ONE (11:00)
[2017-05-10] MEDS: HYDROmorphone HCL PF 2 MG/ML VIAL IV PUSH PRN (12:40)
--- NOTE | 2017-05-10 13:50 | PD.ONC.PN ---
Subjective Subjective Remarks Afebrile overnight. Patient is continuing to have pain in chest and right side of abdomen. He is overwhelmed and emotional. Pain controlled with dilaudid. Objective Data Date Time Temp Pulse Resp B/P (MAP) Pulse Ox O2 Delivery O2 Flow Rate FiO2 05/10/17 11:05 99.5 100 18 120/78 (92) 93 05/10/17 08:01 98.4 112 22 93/50 (64) 92 05/10/17 07:20 92 Nasal Cannula 4.00 05/10/17 06:00 100 05/10/17 05:00 102 05/10/17 04:07 98.4 105 18 138/88 (105) 92 05/10/17 04:00 104 05/10/17 03:00 105 05/10/17 02:00 110 05/10/17 01:00 124 05/10/17 00:00 114 05/09/17 23:00 116 05/09/17 23:00 99.4 121 18 128/81 (97) 92 05/09/17 22:25 92 Nasal Cannula 4.00 05/09/17 21:00 104 05/09/17 20:00 101 05/09/17 20:00 98.4 93 18 130/84 (99) 90 05/09/17 19:19 18 05/09/17 19:00 102 05/09/17 18:00 110 05/09/17 16:00 106 05/09/17 15:00 106 05/09/17 15:00 94 18 123/82 (96) 94 05/09/17 14:00 98 Result Diagram: 05/10/1713 05/10/17 0613 Laboratory Results Laboratory Tests Test 05/10/17 06:13 White Blood Count 7.6 TH/MM3 Red Blood Count 4.94 MIL/MM3 Hemoglobin 13.6 GM/DL Hematocrit 40.4 % Mean Corpuscular Volume 81.7 FL Mean Corpuscular Hemoglobin 27.6 PG Mean Corpuscular Hemoglobin Concent 33.7 % Red Cell Distribution Width 14.0 % Platelet Count 219 TH/MM3 Mean Platelet Volume 7.2 FL Neutrophils (%) (Auto) 73.2 % Lymphocytes (%) (Auto) 10.0 % Monocytes (%) (Auto) 14.3 % Eosinophils (%) (Auto) 2.0 % Basophils (%) (Auto) 0.5 % Neutrophils # (Auto) 5.6 TH/MM3 Lymphocytes # (Auto) 0.8 TH/MM3 Monocytes # (Auto) 1.1 TH/MM3 Eosinophils # (Auto) 0.2 TH/MM3 Basophils # (Auto) 0.0 TH/MM3 CBC Comment DIFF FINAL Differential Comment Blood Urea Nitrogen 21 MG/DL Creatinine 0.96 MG/DL Random Glucose 129 MG/DL Total Protein 6.4 GM/DL Albumin 2.6 GM/DL Calcium Level 8.3 MG/DL Magnesium Level 2.6 MG/DL Uric Acid 13.3 MG/DL Alkaline Phosphatase 58 U/L Aspartate Amino Transf (AST/SGOT) 46 U/L Alanine Aminotransferase (ALT/SGPT) 34 U/L Total Bilirubin 0.6 MG/DL Sodium Level 137 MEQ/L Potassium Level 4.3 MEQ/L Chloride Level 101 MEQ/L Carbon Dioxide Level 27.9 MEQ/L Anion Gap 8 MEQ/L Estimat Glomerular Filtration Rate 86 ML/MIN Culture Results Microbiology Date/Time Source Procedure Growth Status 05/08/17 11:11 Fluid Pleural Fluid Gram Stain - Final Resulted 05/08/17 11:11 Fluid Pleural Fluid Body Fluid Culture - Preliminary NO GROWTH IN 48 HOURS. Resulted Administered Medications Medications (Trade) Dose Ordered Sig/Suzan Route PRN Reason Start Time Stop Time Status Last Admin Dose Admin Albuterol/ Ipratropium (Duoneb Neb) 1 ampule Q6HR NEB NEB 05/08/17 12:00 05/10/17 07:19 Albuterol/ Ipratropium (Duoneb Neb) 1 ampule Q2HR NEB PRN NEB sob/wheezing 05/08/17 07:00 05/09/17 12:06 Morphine Sulfate (Oramorph Sr) 30 mg BID PO 05/08/17 21:00 05/10/17 11:49 Sodium Chloride (NS Flush) 2 ml BID IV FLUSH 05/08/17 21:00 05/09/17 21:00 Lorazepam (Ativan) 0.5 mg Q8H PRN PO ANXIETY 05/08/17 17:00 05/08/17 22:08 Senna/Docusate Sodium (Naa-Colace) 2 tab BID PO 05/08/17 21:00 05/10/17 10:27 Sodium Chloride 1,000 ml @ 60 mls/hr [id number] IV 05/09/17 18:15 05/09/17 18:15 Allopurinol (Zyloprim) 300 mg DAILY PO 05/09/17 20:00 05/10/17 10:31 Hydromorphone HCl (Dilaudid Pf Inj) 1 mg Q3HR PRN IV PUSH pain3-10 05/10/17 12:00 05/10/17 12:40 Objective Remarks GENERAL: Overwhelmed, anxious middle aged male sitting in bed. SKIN: Warm and dry. HEAD: Normocephalic. EYES: No injection or drainage. NECK: Supple, trachea midline. CARDIOVASCULAR: +S1/S2 RESPIRATORY: no breath sounds right lung. left lung with scattered rhonchi. on 4L O2 via NC GASTROINTESTINAL: Abdomen soft, non-tender, nondistended. EXTREMITIES: No cyanosis MUSCULOSKELETAL: Adequate muscle tone. NEUROLOGICAL: awake and alert, normal speech. Assessment/Plan Problem List: (1) T-cell lymphoma ICD Codes: C85.90 - Non-Hodgkin lymphoma, unspecified, unspecified site Plan: Flow cytometry showing T-cell lymphoma. T cell gene rearrangement study is pending. 05/09: XRT started to right lung, plan is for 5 treatments. Discussed w/ CTS, difficult resection, unlikely that he will be able to resect completely. 05/10: XRT 2/5 completed. flow cytometry returned showing T-cell lymphoma. in light of this diagnosis. will start CHOP chemotherapy. (2) At high risk of tumor lysis syndrome ICD Codes: Z91.89 - Other specified personal risk factors, not elsewhere classified Plan: 05/10: uric acid 13. will dose with Rasburicase today. --monitor uric acid, LDH, phosphorus, mag daily. (3) Recurrent right pleural effusion ICD Codes: J90 - Pleural effusion, not elsewhere classified Status: Acute Plan: --receiving XRT to right lung mass --may need thoracentesis. Assessment 42 y/o man with newly diagnosed T-cell lymphoma. Plan 1. obtain ECHO and place PICC line 2. obtain bone marrow biopsy for staging 3. start CHOP chemotherapy 4. received XRT 2/5 today. next XRT will be 05/15. 5. continue dilaudid as PRN. Attending Statement The exam, history, and the medical decision-making described in the above note were completed with the assistance of the mid-level provider. I reviewed and agree with the findings presented. I attest that I had a [id number] encounter with the patient on the same day, and personally performed and documented my assessment and findings in the medical record. Case discussed w/ pathology and rad onc. 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 Looks more comfortable but pt still c/o about his pain medicine this AM. Discussed w/ rad onc goal 5 dose palliative XRT. Staging Bone marrow biopsy ordered. Coordinate pic line placement for chemo. Risks and benefits of CHOP chemotherapy discussed. ECHO reordered, anticipate normal at baseline. Noted high risk for tumor lysis. Rasburicase ordered as prophylaxis. Pt already on allopurinol but noted increase Uric acid, magnesium and low calcium. Continue IVF after chemo. Alert team risk for tumor lysis. Continue IVF hydration, may need repeat thoracentesis for symptoms. At patient's request called explained above, >15 minutes phone conversation. Doris Liu May 10, 2017 13:50 Aysha Leigh MD May 10, 2017 18:17
[2017-05-10] MEDS ORDERED: LIDOCAINE HCL 1% 20 ML VIAL ONE (14:22)
[2017-05-10] MEDS ORDERED: MIDAZOLAM HCL 2 MG/2 ML VIAL ONE (14:45)
--- NOTE | 2017-05-10 15:57 | PD.RAD ---
Post CT Procedure Prog Note Pre Procedure Diagnosis: (1) T-cell lymphoma (2) Pleural effusion Post Procedure Diagnosis: (1) T-cell lymphoma (2) Pleural effusion Procedure Date: May 10, 2017 Supervising Radiologist: Abilio Murphy JR Anesthesia: Conscious Sedation Plan of Activity Patient to Unit: ROPU Patient Condition: Good See PACS Report for procedural detail/treatment Biopsy Imaging Guidance: CT Side: Left Biopsy Procedure: Bone Marrow Specimen: Core Biopsy, Fine Needle Aspirate Fluid Removal (CCs): 700 Fluid Description: Red Findings: 1) successful BM bx and aspiration. Good samples noted. 2) CT guided thoracentesis performed in supine position as patient was sedated for BM bx and couldn't sit up. 700 ml of reddish fluid obtained. Sampling not requested. Post CT shows no PTX. Some fluid remains. Jr. Jeffrey,Abilio Angeles MD May 10, 2017 15:57
--- NOTE | 2017-05-10 16:09 | ECHRPT ---
Indication: sob, mediastinal mass CONCLUSIONS The left ventricular systolic function is normal with an estimated ejection fraction in the range of 60-65%. Normal left ventricular size. Wall thickness is normal. No regional wall motion abnormalities are present. The right ventricle is moderately dilated. There is trace tricuspid valve regurgitation. The estimated pulmonary arterial pressure is 34 mmHg. Small pericardial effusion. BP: 125 / 54 HR: 97 Rhythm: Sinus MEASUREMENTS (Male / Female) Normal Values Technical Quality:Fair 2D ECHO LV Diastolic Diameter PLAX 4.2 cm 4.2 - 5.9 / 3.9 - 5.3 cm LV Systolic Diameter PLAX 2.6 cm IVS Diastolic Thickness 0.9 cm 0.6 - 1.0 / 0.6 - 0.9 cm LVPW Diastolic Thickness 0.9 cm 0.6 - 1.0 / 0.6 - 0.9 cm LV Relative Wall Thickness 0.4 RV Internal Dim ED PLAX 2.9 cm LVOT Diameter 2.0 cm M-MODE Aortic Root Diameter MM 3.0 cm AV Cusp Separation MM 2.1 cm DOPPLER AV Peak Velocity 159.0 cm/s AV Peak Gradient 10.1 mmHg LVOT Peak Velocity 116.0 cm/s LVOT Peak Gradient 5.4 mmHg AV Area Cont Eq pk 2.3 cm MV Area PHT 3.8 cm Mitral E Point Velocity 88.4 cm/s Mitral A Point Velocity 58.7 cm/s Mitral E to A Ratio 1.5 LV E' Lateral Velocity 8.3 cm/s Mitral E to LV E' Lateral Ratio 10.7 LV E' Septal Velocity 7.3 cm/s Mitral E to LV E' Septal Ratio 12.1 TR Peak Velocity 244.0 cm/s TR Peak Gradient 23.8 mmHg Right Atrial Pressure 10.0 mmHg Pulmonary Artery Systolic Pressu 33.8 mmHg Right Ventricular Systolic Press 33.8 mmHg PV Peak Velocity 99.1 cm/s PV Peak Gradient 3.9 mmHg FINDINGS LEFT VENTRICLE The left ventricular systolic function is normal with an estimated ejection fraction in the range of 60-65%. Normal left ventricular size. Wall thickness is normal. No regional wall motion abnormalities are present. RIGHT VENTRICLE The right ventricle is moderately dilated. LEFT ATRIUM The left atrial size is normal. RIGHT ATRIUM The right atrial size is normal. ATRIAL SEPTUM Normal atrial septal thickness without atrial level shunting by limited color doppler interrogation. AORTA The aortic root and proximal ascending aorta are normal in size on limited imaging. MITRAL VALVE Structurally normal mitral valve. No mitral valve stenosis or regurgitation. AORTIC VALVE Trileaflet aortic valve. No aortic valve stenosis or regurgitation. TRICUSPID VALVE Structurally normal tricuspid valve. There is trace tricuspid valve regurgitation. The estimated pulmonary arterial pressure is 33.8 mmHg. PULMONARY VALVE No pulmonary valve regurgitation or stenosis. VESSELS The inferior vena cava is normal in size. PERICARDIUM Small pericardial effusion. Nuria Salter MD, FACC (Electronically Signed) Final Date:10 May 2017 16:08
--- NOTE | 2017-05-10 16:27 | RADRPT ---
EXAM DATE/TIME: 05/10/2017 14:59 [facility] COMPARISON: No previous studies available for comparison. INDICATIONS : Staging T cell malignancy, posterior iliac crest biopsy. SEDATION TIME: 20 minutes BIOPSY SITE: Left pelvis MEDICATION(S): 1.) 4 mg midazolam (Versed) IV 2.) 100 mcg fentanyl (Sublimaze) IV DEVICE(S): 1.) 11 gauge Bone biopsy needle MEDICAL HISTORY : Hypertension. Cardiovascular disease. SURGICAL HISTORY : None. ENCOUNTER: Initial ACUITY: 1 day PAIN SCORE: 10 LOCATION: Left pelvis A total of one core specimen(s) were obtained and sent to the laboratory for pathologic evaluation. PROCEDURE: 1. CT guided pelvic biopsy. 2. Conscious sedation with continuous monitoring. Prior to the procedure informed consent was obtained. Any appropriate prior imaging studies were rev iewed. Using automated exposure control and adjustment of the mA and/or kV according to patient size , radiation dose was kept as low as reasonably achievable to obtain optimal diagnostic quality images . DICOM format image data is available electronically for review and comparison. The site was prepped in a sterile fashion. Full sterile technique was used, including cap, mask, jong rile gloves and gown and a large sterile sheet. Hand hygiene and 2% chlorhexidine and/or betadine/al cohol prep was utilized per protocol for cutaneous antisepsis. The skin and subcutaneous tissues wer e infiltrated with local anesthetic solution. With CT guidance the previously identified target was localized. Biopsy was performed using the presc ribed needle as above. Following biopsy marrow aspiration was performed with repeat puncture. Adequa te hemostasis was obtained with compression at the puncture site. Follow-up CT scan reveals no hemorrhage. Conscious sedation was performed with the prescribed dosages and duration as above in the presence of an independent trained radiology nurse to assist in the monitoring of the patient. EKG and oximetry remained stable throughout the procedure. The patient tolerated the procedure well and there were no complications. The patient was sent to Radiology Outpatient Unit in stable condition. CONCLUSION: 1. Uncomplicated CT guided bone marrow aspirate. 2. Uncomplicated CT guided bone marrow biopsy. Abilio Murphy Jr., MD on May 10, 2017 at 16:25 Board Certified Radiologist. This report was verified electronically.
--- NOTE | 2017-05-10 17:29 | RADRPT ---
EXAM DATE/TIME: 05/10/2017 15:33 INDICATIONS : Right pleural fluid, therapeutic. DEVICE(S): 1.) 6 Fr catheter Total volume of 700 cc of clear, red fluid was removed. Fluid was discarded. MEDICAL HISTORY : Hypertension. Cardiovascular disease. SURGICAL HISTORY : None. ENCOUNTER: Initial ACUITY: 1 day PAIN SCORE: 10 LOCATION: Right chest PROCEDURE: 1. CT guided right thoracentesis. The site was prepped in sterile fashion. Full sterile technique was used, including cap, mask, steri le gloves and gown and a large sterile sheet. Hand hygiene and 2% chlorhexidine and/or betadine/alco hol prep was utilized per protocol for cutaneous antisepsis. The skin and subcutaneous tissues were infiltrated with local anesthetic solution. Using automated exposure control and adjustment of the mA and/or kV according to patient size, radiation dose was kept as low as reasonably achievable to obta in optimal diagnostic quality images. DICOM format image data is available electronically for review and comparison. With the patient prone on the CT table, hand surgeon images were obtained through the chest demonstrating th e right sided pleural effusion. The procedure was performed in the prone position as the patient was sedated and has just undergone bone marrow biopsy. Dermatotomy was made and the prescribed catheter was advanced into the pleural fluid. The pleural fluid as above was removed from the hemithorax. Po st procedural scan show reduction in the amount of fluid with no evidence of pneumothorax. The patient tolerated the procedure well and there were no complications. EKG and oximetry remained s table throughout the procedure. The patient was sent to recovery in stable condition. CONCLUSION: Uncomplicated CT-guided thoracentesis. Only 700 mL of fluid was able to be removed. Some fluid does r emain in the hemithorax anteriorly which did not drain as the patient was in the prone position. The patient was in the prone position due to sedation and recent bone marrow biopsy. Abilio Murphy Jr., MD on May 10, 2017 at 17:25 Board Certified Radiologist. This report was verified electronically.
--- NOTE | 2017-05-10 18:37 | HHI.PR ---
Subjective Remarks Patient had been afebrile overnight. States pain in lower right abdomen is much improved Chest pain much improved. Objective Vitals Vital Signs Date Time Temp Pulse Resp B/P (MAP) Pulse Ox O2 Delivery O2 Flow Rate FiO2 05/10/17 16:05 97.8 107 18 131/79 (96) 94 05/10/17 11:05 99.5 100 18 120/78 (92) 93 05/10/17 08:01 98.4 112 22 93/50 (64) 92 05/10/17 07:20 92 Nasal Cannula 4.00 05/10/17 06:00 100 05/10/17 05:00 102 05/10/17 04:07 98.4 105 18 138/88 (105) 92 05/10/17 04:00 104 05/10/17 03:00 105 05/10/17 02:00 110 05/10/17 01:00 124 05/10/17 00:00 114 05/09/17 23:00 116 05/09/17 23:00 99.4 121 18 128/81 (97) 92 05/09/17 22:25 92 Nasal Cannula 4.00 05/09/17 21:00 104 05/09/17 20:00 101 05/09/17 20:00 98.4 93 18 130/84 (99) 90 05/09/17 19:19 18 05/09/17 19:00 102 I/O 05/09/17 05/09/17 05/09/17 05/10/17 05/10/17 05/10/17 07:00 15:00 23:00 07:00 15:00 23:00 Intake Total 1200 ml 960 ml 55 ml Output Total 200 ml 300 ml Balance 1000 ml 660 ml 55 ml Intake Oral 1200 ml 960 ml IV Total 55 ml Output Urine Total 200 ml 300 ml # Voids 1 Result Diagram: 05/10/1713 05/10/17612 Imaging Last Impressions Thoracentesis 05/10/17 1458 Signed Impressions: Service Date/Time: Wednesday, May 10, 2017 15:33 - CONCLUSION: Uncomplicated CT-guided thoracentesis. Only 700 mL of fluid was able to be removed. Some fluid does remain in the hemithorax anteriorly which did not drain as the patient was in the prone position. The patient was in the prone position due to sedation and recent bone marrow biopsy. Abilio Murphy Jr., MD Bone Biopsy CT 05/10/17 0000 Signed Impressions: Service Date/Time: Wednesday, May 10, 2017 14:59 - CONCLUSION: 1. Uncomplicated CT guided bone marrow aspirate. 2. Uncomplicated CT guided bone marrow biopsy. Abilio Murphy Jr., MD Chest X-Ray 05/09/17 0000 Signed Impressions: Service Date/Time: April 16:34 - CONCLUSION: 1. Stable small residual right pleural effusion and associated right lower lobe airspace disease. 2. Stable mediastinal prominence in this patient with history of mediastinal mass. 3. No significant interval change. Ash Stover MD Abdomen CT 05/09/17 0000 Signed Impressions: Service Date/Time: April 21:52 - CONCLUSION: Interval development of several new masses centered around the medial right hemidiaphragm with the 2 largest masses measuring 3.8 cm and 3.6 cm. There has also been a significant increase in size of right pleural effusion and interval development of collapse of the right lower lobe. Abilio Merida MD CT Angiography 05/08/17 0514 Signed Impressions: Service Date/Time: Monday, May 08, 2017 05:26 - CONCLUSION: 1. No pulmonary embolus. 2. Large right pleural effusion with possible pleural based mass is seen posterior leak. 3. Large superior mediastinum mass and adenopathy in the left epicardial regions concerning for neoplastic processes such as lymphoma. The large mass has already been biopsied. Bienvenido Lockett MD Abdomen X-Ray 05/08/17 0431 Signed Impressions: Service Date/Time: Monday, May 08, 2017 04:48 - CONCLUSION: Large right pleural effusion. Bienvenido Lockett MD Thoracentesis Ultrasound 05/08/17 0000 Signed Impressions: Service Date/Time: Monday, May 08, 2017 10:35 - CONCLUSION: Uncomplicated ultrasound guided thoracentesis. Alonso Leonardo MD Needle Biopsy CT 05/08/17 0000 Signed Impressions: Service Date/Time: Monday, May 08, 2017 14:43 - CONCLUSION: Uncomplicated CT guided biopsy of an anterior/superior mediastinal mass.. Abilio Murphy Jr., MD Objective Remarks GENERAL: This is a very pleasant 42 yo male, well-nourished, well-developed patient, in moderate distress due to pain.nad, sitting and eating dinner in bed HEAD: Atraumatic. Normocephalic. No temporal or scalp tenderness. EYES: Pupils equal round and reactive. Extraocular motions intact. No scleral icterus. No injection or drainage. ENT: Nose without bleeding, purulent drainage or septal hematoma. Throat without erythema, tonsillar hypertrophy or exudate. Uvula midline. Airway patent. NECK: Trachea midline. No JVD or lymphadenopathy. Supple, nontender, no meningeal signs. CARDIOVASCULAR: Regular rate and rhythm without murmurs, gallops, or rubs. RESPIRATORY: Clear to auscultation. Breath sounds equal bilaterally. No wheezes , rales, or rhonchi. GASTROINTESTINAL: Abdomen is soft, non tender, non distended. Bowel sounds present. MUSCULOSKELETAL: Extremities without clubbing, cyanosis, or edema. No joint tenderness, effusion, or edema noted. No calf tenderness. Negative Homans sign bilaterally. NEUROLOGICAL: Awake and alert. Cranial nerves II through XII intact. Motor and sensory grossly within normal limits. Five out of 5 muscle strength in all muscle groups. Normal speech. Procedures Ultrasound-guided thoracentesis on 05/08 CT-guided bone marrow biopsy on 05/10 CT-guided thoracentesis on 05/10 Medications and IVs Current Medications Medications (Trade) Dose Ordered Sig/Suzan Route Start Time Stop Time Status Last Admin (Tylenol) 650 mg Q4H PRN PO 05/08/17 06:45 (Zofran Inj) 4 mg Q6H PRN IVP 05/08/17 06:45 (Duoneb Neb) 1 ampule Q6HR NEB NEB 05/08/17 12:00 05/10/17 17:24 (Duoneb Neb) 1 ampule Q2HR NEB PRN NEB 05/08/17 07:00 05/09/17 12:06 (Oramorph Sr) 30 mg BID PO 05/08/17 21:00 05/10/17 11:49 (Miralax) 17 gm DAILY PO 05/09/17 09:00 (NS Flush) 2 ml BID IV FLUSH 05/08/17 21:00 05/09/17 21:00 (NS Flush) 2 ml UNSCH PRN IV FLUSH 05/08/17 14:30 (Hibiclens 4% Top Soln) 1 applic STAFF DESIGN ENGINEER TOPICAL 05/08/17 14:30 05/15/17 14:29 (Ativan) 0.5 mg Q8H PRN PO 05/08/17 17:00 05/08/17 22:08 (Narcan Inj) 0.4 mg UNSCH PRN IV PUSH 05/08/17 17:15 (Milk Of Magnesia Liq) 30 ml Q12H PRN PO 05/08/17 17:15 (Senokot) 17.2 mg Q12H PRN PO 05/08/17 17:15 (Dulcolax Supp) 10 mg DAILY PRN RECTAL 05/08/17 17:15 (Lactulose Liq) 30 ml DAILY PRN PO 05/08/17 17:15 (Naa-Colace) 2 tab BID PO 05/08/17 21:00 05/10/17 10:27 (Fleets Enema (Adult)) 133 ml UNSCH PRN RECTAL 05/08/17 17:15 Sodium Chloride 1,000 ml @ 60 mls/hr [id number] IV 05/09/17 18:15 05/09/17 18:15 (Zyloprim) 300 mg DAILY PO 05/09/17 20:00 05/10/17 10:31 (Dilaudid Pf Inj) 1 mg Q3HR PRN IV PUSH 05/10/17 12:00 05/10/17 12:40 Sodium Chloride 250 ml @ 0 mls/hr UNSCH X1 IV 05/10/17 21:00 05/10/17 22:59 Dexamethasone Sodium Phosphate 20 mg/Sodium Chloride 55 ml @ 220 mls/hr ONCE ONCE IV 05/10/17 20:30 05/10/17 20:44 (Adriamycin Inj) 100 mg ONCE ONCE IV PUSH 05/10/17 21:00 05/10/17 21:01 Vincristine Sulfate 2 mg/ Sodium Chloride 52 ml @ 312 mls/hr ONCE ONCE IV 05/10/17 21:00 05/10/17 21:09 Cyclophosphamide 1500 mg/Sodium Chloride 500 ml @ 333.333 mls/hr ONCE ONCE IV 05/10/17 21:15 05/10/17 22:44 (Deltasone) 100 mg DAILY PO 05/10/17 16:00 05/14/17 09:01 (Kytril Inj) 1 mg ONCE ONCE IV 05/10/17 20:30 05/10/17 20:31 A/P Problem List: (1) Mediastinal mass ICD Code: J98.59 - Other diseases of mediastinum, not elsewhere classified Status: Acute Plan: 42-year-old male with initially presented with right-sided chest pain which was workup and cardiac etiology ruled out. Patient had an outpatient chest x-ray at an urgent care which showed pneumonia then he was referred to the hospital. The patient had a CT scan of the chest on 04/26/17 which showed a large [id number] anterior mediastinal mass with extension to the prevascular space. Patient had been seen by Dr. Butler and Dr. Leigh as an outpatient. Differential diagnosis include a thymic tumor versus lymphoma. CT- guided biopsy was performed on 04/29. Unfortunately, the diagnosis could not be established from the CT-guided biopsy. A repeat biopsy was being done as an outpatient, however the patient worsened prompting him to come to the emergency department on 05/08/17 before the repeat biopsy could be arranged. Initial plans were to perform a thoracentesis and a repeat biopsy which the patient had done on 05/08. Repeat CTA obtained during this admission on 05/08/17 showed a large right pleural effusion with possible pleural-based mass, large upper mediastinal mass and adenopathy in the left epicardial regions concerning for neoplastic process. Continue to follow-up recommendations as per medical oncology recommendations. As per oncology documentation. Dr. Leigh had personal communication with the pathologist yesterday with suggests malignant effusion with many abnormal cells. Flow cytometry has been sent but is still pending. Dr. Leigh discussed the case with radiation oncologist. In light of acute symptoms, malignancy is confirmed except definite diagnosis still pending. Now for palliative XRT to alleviate some symptoms so patient can breathe. CT surgery consulted area difficult resection. With the above disease unlikely that CT surgery will be able to resect completely. Definitive resection has been deferred. Chemotherapy pending on more information regarding thymoma versus distal lymphoma. 05/[address]-guided bone marrow biopsy. Await pathology. Follow-up oncology recommendations. (2) Recurrent right pleural effusion ICD Code: J90 - Pleural effusion, not elsewhere classified Status: Acute Plan: Status post ultrasound-guided paracentesis. Fluid showed 41,000 RBCs and 33,000s WBCs. 05/10 CT abdomen and pelvis showed recommendation of right pleural fluid. CT- guided thoracentesis ordered and performed with drainage of 700 mL's of reddish fluid. 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 (3) Shortness of breath ICD Code: R06.02 - Shortness of breath Status: Acute Plan: Patient is acutely shortness of breath at the moment of this interview. 05/10 pain likely due to reaccumulation of the pleural effusion. Now much improved after thoracentesis. (4) Right flank pain ICD Code: R10.9 - Unspecified abdominal pain Plan: There is an ecchymotic area in the lower right side of the abdomen. There is severe tenderness over the right side of the abdomen and right flank which is very tender to palpation. 05/10 CT of the abdomen and pelvis ordered. It showed interval development of several new masses centered around the medial right hemidiaphragm with the 2 largest masses measuring 2.8 cm and 3.6 cm. There has also been a significant increase in size of the right pleural effusion and interval development of collapse of the right lower lobe. CT guided ultrasound ordered earlier which has been succesfully done. Discussed the case with Kay Liu (Oncology PA). Chemotherapy to start tonight. 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 Management as per oncology. - Patient to start [facility] chemotherapy. - received XRT 06/24 today. next XRT will be 05/15. - obtain echo since patient will get Adriamycin. - Dilaudid prn for pain Assessment and Plan DVT prophylaxis: SCDs. Discharge Planning Continue to monitor in the medical floor. Patient gettin XRT and chemotherapy. Michael Porter MD May 10, 2017 18:37
--- NOTE | 2017-05-10 19:14 | RADRPT ---
EXAM DATE/TIME: 05/10/2017 18:39 [facility] COMPARISON: CHEST SINGLE AP, May 09, 2017, 16:34. INDICATIONS : Post right sided thoracentesis and PICC line placement. MEDICAL HISTORY : Hypertension. SURGICAL HISTORY : None. ENCOUNTER: Initial ACUITY: 1 day PAIN SCORE: 0/10 LOCATION: Right chest FINDINGS: The right pleural effusion is larger than on prior examination. Patchy areas of airspace opacity in right lower lung stable. Fullness in the right hilar region stable. The left lung is clear. Right PICC line catheter tip projects in right atrium. CONCLUSION: 1. PICC line catheter tip in the right atrium. 2. The size of the right pleural effusion has increased when compared to 05/09/17. No evidence pneum othorax. Abilio Merida MD on May 10, 2017 at 19:10 Board Certified Radiologist. This report was verified electronically.
[2017-05-10] MEDS ORDERED: SODIUM CHLORIDE 0.9% FLUSH 10 ML FLUSH IV FLUSH PRN (19:15)
[2017-05-10] MEDS: predniSONE 50 MG TAB PO SCH (19:57)
[2017-05-10 20:22] LABS: BONE MARROW PROCESSING COMPLETE; IRON STAIN DONE; JENNER GIEMSA STAIN DONE
[2017-05-10] MEDS ORDERED: GRANISETRON HCL 1 MG/ML VIAL IV ONE (20:30)
[2017-05-10] MEDS ORDERED: DEXAMETHASONE INJ 20 MG in SODIUM CHLORIDE 0.9% INJ 50 ML IV ONE (20:30)
[2017-05-10] MEDS ORDERED: vinCRIStine INJ 2 MG in SODIUM CHLORIDE 0.9% INJ 50 ML IV ONE (21:00)
[2017-05-10] MEDS ORDERED: SODIUM CHLOR 0.9% 250 ML INJ 250 ML IV SCH (21:00)
[2017-05-10] MEDS ORDERED: DOXOrubicin HCL 10 MG/5 ML INJ IV PUSH ONE (21:00)
[2017-05-10] MEDS ORDERED: SODIUM CHLORID 0.9% IV ONE (21:15)
[2017-05-10] MEDS ORDERED: CYCLOPHOSPHAMIDE IV ONE (21:15)
[2017-05-10] MEDS: RESP: ALBUTEROL 2.5 MG/IPRATROPIUM 0.5 MG NEB (PRN) NEB (23:02)
[2017-05-11] VITALS (9 sets, daily range): BP systolic 119–141; BP diastolic 69–78; PULSE 92–108; RESP 16–18; TEMP 97.7–98.6; O2SAT 90–95
[2017-05-11] MEDS: LORazepam 0.5 MG TAB PO PRN (00:16)
[2017-05-11] MEDS: HYDROmorphone HCL PF 2 MG/ML VIAL IV PUSH PRN (01:40)
[2017-05-11] MEDS: SODIUM CHLOR 0.9% 1000 ML INJ 1,000 ML IV SCH ×2 (01:44→21:49)
[2017-05-11] MEDS: RESP: ALBUTEROL 2.5 MG/IPRATROPIUM 0.5 MG NEB (SCH) NEB ×4 (03:04→20:49)
[2017-05-11 06:30] LABS: AUTOMATED NEUTROPHIL # 3.5 TH/MM3 (1.8-7.7); BASOPHIL % 0.1 % (0.0-2.0); HEMATOCRIT 34.4 % (39.0-51.0); HEMO FLAGS DIFF FINAL; LYMPH % 2.8 % (9.0-44.0); LYMPHOCYTE # 0.1 TH/MM3 (1.0-4.8); MEAN CELL VOLUME 82.3 FL (80.0-100.0); MEAN CORPUSCULAR HEMOGLOBIN 27.8 PG (27.0-34.0); MEAN CORPUSCULAR HGB CONC 33.8 % (32.0-36.0); NEUT % 95.1 % (16.0-70.0); PLATELET COUNT 180 TH/MM3 (150-450); RED BLOOD COUNT 4.18 MIL/MM3 (4.50-5.90); RED CELL DISTRIBUTION WIDTH 13.5 % (11.6-17.2); WHITE BLOOD COUNT 3.6 TH/MM3 (4.0-11.0)
[2017-05-11 06:56] LABS: ALKALINE PHOSPHATASE 50 U/L (45-117); ALT (GPT) 25 U/L (12-78); ANION GAP 6 MEQ/L (5-15); AST (GOT) 28 U/L (15-37); BICARBONATE 26.4 MEQ/L (21.0-32.0); BLOOD UREA NITROGEN 16 MG/DL (7-18); CHLORIDE 104 MEQ/L (98-107); GLOMERULAR FILTRATION RATE 116 ML/MIN (>89); LDH SERUM 885 U/L (87-241); MAGNESIUM 2.5 MG/DL (1.5-2.5); POTASSIUM 4.2 MEQ/L (3.5-5.1); SODIUM (NA) 136 MEQ/L (136-145); TOTAL BILIRUBIN ADULT 0.3 MG/DL (0.2-1.0); URIC ACID 0.8 MG/DL (2.6-7.2)
[2017-05-11] MEDS: SODIUM CHLORIDE 0.9% FLUSH 10 ML FLUSH IV FLUSH SCH ×3 (08:44→21:00)
[2017-05-11] MEDS: DOCUSATE SODIUM 50 MG/SENNA 8.6 MG TAB PO SCH ×2 (09:00→21:00)
[2017-05-11] MEDS: MORPHINE SULFATE 30 MG CONTROLLED RELEASE TAB PO SCH ×2 (09:00→21:00)
[2017-05-11] MEDS: predniSONE 50 MG TAB PO SCH (09:00)
[2017-05-11] MEDS: ALLOPURINOL 300 MG TAB PO SCH (09:00)
[2017-05-11] MEDS: POLYETHYLENE GLYCOL 17 GM PKG PO SCH (09:00)
--- NOTE | 2017-05-11 09:28 | PD.ONC.PN ---
Subjective Subjective Remarks Afebrile overnight. Patient feeling better today. States he still has a little bit of pain around bone marrow biopsy site. Abdominal pain improved. Breathing is better. Objective Data Date Time Temp Pulse Resp B/P (MAP) Pulse Ox O2 Delivery O2 Flow Rate FiO2 05/11/17 09:07 92 Nasal Cannula 2.00 05/11/17 09:07 89 Room Air 05/11/17 08:52 97.9 98 18 123/75 (91) 90 05/11/17 06:00 97.7 93 16 119/70 (86) 92 05/11/17 00:00 98.6 98 18 140/78 (98) 95 05/10/17 23:03 92 Nasal Cannula 4.00 05/10/17 23:00 99 18 144/86 (105) 94 05/10/17 20:15 101 05/10/17 19:45 97.6 100 18 122/73 (89) 94 05/10/17 18:00 81 18 120/81 (94) 95 05/10/17 16:05 97.8 107 18 131/79 (96) 94 05/10/17 11:05 99.5 100 18 120/78 (92) 93 05/11/17 05/11/17 05/11/17 07:00 15:00 23:00 Intake Total 1270 ml Output Total 650 ml Balance 620 ml Result Diagram: 05/11/1715 05/11/17 0615 Laboratory Results Laboratory Tests Test 05/10/17 14:50 05/11/17 06:15 White Blood Count 3.6 TH/MM3 Red Blood Count 4.18 MIL/MM3 Hemoglobin 11.7 GM/DL Hematocrit 34.4 % Mean Corpuscular Volume 82.3 FL Mean Corpuscular Hemoglobin 27.8 PG Mean Corpuscular Hemoglobin Concent 33.8 % Red Cell Distribution Width 13.5 % Platelet Count 180 TH/MM3 Mean Platelet Volume 7.3 FL Neutrophils (%) (Auto) 95.1 % Lymphocytes (%) (Auto) 2.8 % Monocytes (%) (Auto) 2.0 % Eosinophils (%) (Auto) 0.0 % Basophils (%) (Auto) 0.1 % Neutrophils # (Auto) 3.5 TH/MM3 Lymphocytes # (Auto) 0.1 TH/MM3 Monocytes # (Auto) 0.1 TH/MM3 Eosinophils # (Auto) 0.0 TH/MM3 Basophils # (Auto) 0.0 TH/MM3 CBC Comment DIFF FINAL Differential Comment Blood Urea Nitrogen 16 MG/DL Creatinine 0.74 MG/DL Random Glucose 193 MG/DL Total Protein 6.0 GM/DL Albumin 2.3 GM/DL Calcium Level 8.2 MG/DL Phosphorus Level 3.1 MG/DL Magnesium Level 2.5 MG/DL Uric Acid 0.8 MG/DL Alkaline Phosphatase 50 U/L Aspartate Amino Transf (AST/SGOT) 28 U/L Alanine Aminotransferase (ALT/SGPT) 25 U/L Lactate Dehydrogenase 885 U/L Total Bilirubin 0.3 MG/DL Sodium Level 136 MEQ/L Potassium Level 4.2 MEQ/L Chloride Level 104 MEQ/L Carbon Dioxide Level 26.4 MEQ/L Anion Gap 6 MEQ/L Estimat Glomerular Filtration Rate 116 ML/MIN Culture Results Microbiology Date/Time Source Procedure Growth Status 05/08/17 11:11 Fluid Pleural Fluid Gram Stain - Final Complete 05/08/17 11:11 Fluid Pleural Fluid Body Fluid Culture - Final NO GROWTH IN 72 HRS.--AEROBICALLY OR ... Complete Imaging Studies Last 24 hours Impressions Thoracentesis 05/10/17 1458 Signed Impressions: Service Date/Time: Wednesday, May 10, 2017 15:33 - CONCLUSION: Uncomplicated CT-guided thoracentesis. Only 700 mL of fluid was able to be removed. Some fluid does remain in the hemithorax anteriorly which did not drain as the patient was in the prone position. The patient was in the prone position due to sedation and recent bone marrow biopsy. Abilio Murphy Jr., MD Administered Medications Medications (Trade) Dose Ordered Sig/Suzan Route PRN Reason Start Time Stop Time Status Last Admin Dose Admin Albuterol/ Ipratropium (Duoneb Neb) 1 ampule Q6HR NEB NEB 05/08/17 12:00 05/10/17 17:24 Albuterol/ Ipratropium (Duoneb Neb) 1 ampule Q2HR NEB PRN NEB sob/wheezing 05/08/17 07:00 05/10/17 23:02 Morphine Sulfate (Oramorph Sr) 30 mg BID PO 05/08/17 21:00 05/11/17 09:00 Sodium Chloride (NS Flush) 2 ml BID IV FLUSH 05/08/17 21:00 05/11/17 09:00 Lorazepam (Ativan) 0.5 mg Q8H PRN PO ANXIETY 05/08/17 17:00 05/11/17 00:16 Senna/Docusate Sodium (Naa-Colace) 2 tab BID PO 05/08/17 21:00 05/11/17 09:00 Sodium Chloride 1,000 ml @ 60 mls/hr [id number] IV 05/09/17 18:15 05/11/17 01:44 Allopurinol (Zyloprim) 300 mg DAILY PO 05/09/17 20:00 05/11/17 09:00 Hydromorphone HCl (Dilaudid Pf Inj) 1 mg Q3HR PRN IV PUSH pain3-10 05/10/17 12:00 05/11/17 01:40 Prednisone (Deltasone) 100 mg DAILY PO 05/10/17 16:00 05/14/17 09:01 05/11/17 09:00 Objective Remarks GENERAL: Middle aged male lying in bed, anxious SKIN: Warm and dry. HEAD: Normocephalic. EYES: No injection or drainage. NECK: Supple, trachea midline. CARDIOVASCULAR: +S1/S2 RESPIRATORY: improved breath sounds right lung. anterior flores with occasional rhonchi. on 2L O2 via NC GASTROINTESTINAL: Abdomen soft, non-tender, nondistended. EXTREMITIES: No cyanosis MUSCULOSKELETAL: Adequate muscle tone. NEUROLOGICAL: awake and alert, normal speech. Assessment/Plan Problem List: (1) T-cell lymphoma ICD Codes: C85.90 - Non-Hodgkin lymphoma, unspecified, unspecified site Plan: Flow cytometry showing T-cell lymphoma. T cell gene rearrangement study is pending. 05/09: XRT started to right lung, plan is for 5 treatments. Discussed w/ CTS, difficult resection, unlikely that he will be able to resect completely. 05/10: XRT 2/5 completed. flow cytometry returned showing T-cell lymphoma. in light of this diagnosis. given [facility]OP chemotherapy. bone marrow biopsy for staging. 05/11: continue prednisone (2) At high risk of tumor lysis syndrome ICD Codes: Z91.89 - Other specified personal risk factors, not elsewhere classified Plan: 05/10: uric acid 13. will dose with Rasburicase today. 05/11: uric acid improved. continue to monitor uric acid, LDH, phosphorus, mag daily. (3) Recurrent right pleural effusion ICD Codes: J90 - Pleural effusion, not elsewhere classified Status: Acute Plan: --s/p thoracentesis 05/10 Assessment 42 y/o man with newly diagnosed T-cell lymphoma. Plan 1. continue prednisone 2. monitor CBC, CMP, uric acid, LDH daily Attending Statement The exam, history, and the medical decision-making described in the above note were completed with the assistance of the mid-level provider. I reviewed and agree with the findings presented. I attest that I had a [id number] encounter with the patient on the same day, and personally performed and documented my assessment and findings in the medical record. patient doing better and breathing easier. decreased sounds right lung. Will continue to follow for tumor lysis. He will probably need a spinal tap but this can be done in several days. He is highly anxious and reviewed with him the fact that his disease is curable. I have asked him to stay for several more days as he is not yet stable. Doris Liu May 11, 2017 09:28 Lizandro Sánchez MD May 11, 2017 11:02
--- NOTE | 2017-05-11 10:24 | RC ---
cc: JACKSON BUTLER M.D., ALVARO MD DEVERAS,IRINA Smith M.D. DATE OF SERVICE: 05/08/2017 DATE OF : 1975. REFERRING PHYSICIAN Dr. Irina Leigh. DIAGNOSIS Malignant T-cell lymphoma unknown type at the present time. The patient is a T2, with the symptoms and bulky disease. CHIEF COMPLAINT Chest pain and shortness of breath. REASON FOR CONSULTATION The patient being evaluated for palliative radiotherapy treatment options. HISTORY OF PRESENT ILLNESS This is 42-year-old white male patient of Dr. Butler which I initially saw on 04/26/2017 for the symptoms of chest pain, cough. At that point the patient had a workup which detected large mediastinal mass. The patient was being worked up as an outpatient due to increase of the same symptoms and shortness of breath. The patient has been readmitted. I have discussed this case today with Dr. Leigh and she is requesting evaluation regarding palliative radiotherapy. The patient is acutely ill. PAST MEDICAL HISTORY 1. As above. 2. History of asthma 3. herniated disk. MEDICATIONS 1. MiraLax 2. Dulcolax 3. Oramorph. 4. Narcan 5. Lactulose 6. Ativan 7. Morphine sulfate 8. Albuterol 9. Ondansetron ALLERGIES NO KNOWN DRUG ALLERGIES. FAMILY HISTORY: No history of carcinoma family. SOCIAL HISTORY The patient has a smoking history and EtOH intake. REVIEW OF SYSTEMS Constitutional; The patient states that he has not lost any weight recently. Allergic: No allergic reaction recently. Eyes: Unremarkable. ENT: Denies any difficulty in swallowing. Neck: Denies any masses. integumentary denies any rashes. Cardiovascular: Has shortness of breath while lying flat. Denies any clinical signs of NH. Chest pain on the right side especially posterior flank. Respiratory: The patient with cough. No hemoptysis. He says he has some wheezing the past but not today. Gastrointestinal: Constipation. Denies any rectal bleeding. Genitourinary: Unremarkable. musculoskeletal bone pain lower Back: Right costovertebral angle. Neurological: Denies any logical deficits. No cognitive deficits. Psychiatric unremarkable. Hematological unremarkable. Dermatologic: Unremarkable. PHYSICAL EXAMINATION IN GENERAL: The patient was oriented x3 in no acute distress at the time of evaluation. Pain on scale, The patient rated a 6/10. He was requesting pain medication from the nurse. VITAL SIGNS: Temperature 98.4, pulse 97, respiratory rate 18, blood pressure 115/80, pulse ox 92% on room air. LUNGS: To auscultation the left lung was clear to auscultation with upper ventilatory respiratory effort on the right lung there was decreasing the respiratory and ventilatory effort especially towards the base where there is almost absent breath sounds. No wheezing. No rhonchus detected bilaterally. Heart: Heart was regular rate and rhythm for murmurs. Neck: Palpation of neck and bilateral supraclavicular areas as well as axillary areas reveal no lymph nodes or masses or suspicious indurations. ABDOMEN: Palpation of the oral cavity is slightly distended but hepatosplenomegaly palpated. Pain elicited. No periumbilical masses. EXTREMITIES: No lower extremity detected. No upper extremity edema detected. NEUROLOGICAL: No neurological problem detected. Cognitive function preserved motor function preserved. SKIN: No rash. No other positive finding. Surgical pathology 04/29/2017. Pleural fluid negative for malignant cells. Surgical pathology 04/29/2017. 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 versus T-cell lymphoma. The pattern consistent of a T-cell proliferative process. RADIOLOGY CT chest 04/26/2017. Impression. Very large anterior spinal mass lesion measuring 7.6 by 14.2 x 7.0 cm. There are also abnormal nodules in the right cardiophrenic angle as well as a pleural based nodules posteriorly and medially in the right hemithorax with associated moderate effusion. Left lung is clear. CT abdomen and pelvis 04/27/2017. Impression; No acute findings within the abdomen and pelvis. CT pulmonary angiogram on 05/08/2017. Impression; no pulmonary embolus. Large right pleural effusion with possible pleural based mass seen posterior. Large superior mediastinal mass and adenopathy in the left epicardial region concerning for neoplastic process such as lymphoma. ASSESSMENT 42-year acutely ill white male with possible diagnosis of a T-cell lymphoma versus thymoma most likely lymphoma. The patient being evaluated for palliative radiotherapy treatment options. PLAN I had a discussion with the patient and his . I have discussed this case personally with Dr. Leigh today. I have reviewed Dr. Butler note from 05/06/2017 where the plan was to proceed forward with further workup and possible chemotherapy depending on tumor. Per my discussion with Dr. Leigh today we both agree that this is behaving like an aggressive lymphoma and therefore the patient should start radiation therapy for palliation of symptoms as soon as possible. Plan is to do that and then followed by chemotherapy once she obtains in the gene rearrangement results and the results of the new biopsy. The patient understands that the radiation may not work and have to increase dose of radiation therapy but at this point I plan to give five treatments and see if I can arrest the growth of the mass and by time until the patient can start his chemotherapy. The patient understands that following this the dose of radiation therapy that I may have to have him return and give him some more radiation. I explained the merits of radiation therapy, side effects, complications include but not limited to weakness and fatigue, low blood counts, skin necrosis skin, difficulty in swallowing, esophageal strictures, lung damage, lung fibrosis lung pneumonitis possibility becoming oxygen dependent. The patients pulmonary functions are already compromised due to the almost complete atelectasis of the right lung. We discussed heart damage, pleural effusions, heart effusions. We discussed the possibility of having a heart attack, 10 to 15 years after radiation therapy due to the fact that I am going to have treat part of the heart because there are nodules within the heart itself. We discussed bone damage, rib fracture, costochondritis, nerve damage and spinal cord damage. After thorough discussion the patient wanted to proceed forward with treatments. My plan is to simulate and to treat tomorrow and complete five treatments by Saturday. They were in agreement with this. They wanted to continue forward with the radiation therapy. Consent will be obtained tomorrow. They were advised that if can be of any further assistance to please let me know otherwise we will proceed as above. Dr. Leigh thank you very much for this referral of this patient and allowing me to participate in his care. If you have any further questions or concerns please do not hesitate to contact me. Yeyo Matamoros MD Radiation Oncologist SEUN FAITH/samina /6:45 PM /9:24 AM SAMSON
--- NOTE | 2017-05-11 16:21 | HHI.PR ---
Subjective Remarks Follow up newly diagnosed T-cell lymphoma 05/11/17-patient seen and examined; denies any pain. NO shortness of breath.Wants to go home Objective Vitals Vital Signs Date Time Temp Pulse Resp B/P (MAP) Pulse Ox O2 Delivery O2 Flow Rate FiO2 05/11/17 16:05 98.0 93 18 124/69 (87) 92 05/11/17 11:33 92 Nasal Cannula 3.00 05/11/17 11:30 98.3 108 18 136/76 (96) 92 05/11/17 10:32 93 Nasal Cannula 2.50 05/11/17 09:07 92 Nasal Cannula 2.00 05/11/17 09:07 89 Room Air 05/11/17 08:52 97.9 98 18 123/75 (91) 90 05/11/17 08:00 92 05/11/17 06:00 97.7 93 16 119/70 (86) 92 05/11/17 00:00 98.6 98 18 140/78 (98) 95 05/10/17 23:03 92 Nasal Cannula 4.00 05/10/17 23:00 99 18 144/86 (105) 94 05/10/17 20:15 101 05/10/17 19:45 97.6 100 18 122/73 (89) 94 05/10/17 18:00 81 18 120/81 (94) 95 I/O 05/10/17 05/10/17 05/10/17 05/11/17 05/11/17 05/11/17 07:00 15:00 23:00 07:00 15:00 23:00 Intake Total 55 ml 107 ml 1270 ml Output Total 650 ml Balance 55 ml 107 ml 620 ml Intake Oral 720 ml IV Total 55 ml 107 ml 550 ml Output Urine Total 650 ml Result Diagram: 05/11/17 0615 05/11/17 0615 Imaging Last Impressions Thoracentesis 05/10/17 1458 Signed Impressions: Service Date/Time: Wednesday, May 10, 2017 15:33 - CONCLUSION: Uncomplicated CT-guided thoracentesis. Only 700 mL of fluid was able to be removed. Some fluid does remain in the hemithorax anteriorly which did not drain as the patient was in the prone position. The patient was in the prone position due to sedation and recent bone marrow biopsy. Abilio Murphy Jr., MD Chest X-Ray 05/10/17 0000 Signed Impressions: Service Date/Time: Wednesday, May 10, 2017 18:39 - CONCLUSION: 1. PICC line catheter tip in the right atrium. 2. The size of the right pleural effusion has increased when compared to 05/09/17. No evidence pneumothorax. Abilio Merida MD Bone Biopsy CT 05/10/17 0000 Signed Impressions: Service Date/Time: Wednesday, May 10, 2017 14:59 - CONCLUSION: 1. Uncomplicated CT guided bone marrow aspirate. 2. Uncomplicated CT guided bone marrow biopsy. Abilio Murphy Jr., MD Abdomen CT 05/09/17 0000 Signed Impressions: Service Date/Time: April 21:52 - CONCLUSION: Interval development of several new masses centered around the medial right hemidiaphragm with the 2 largest masses measuring 3.8 cm and 3.6 cm. There has also been a significant increase in size of right pleural effusion and interval development of collapse of the right lower lobe. Abilio Merida MD CT Angiography 05/08/17 0514 Signed Impressions: Service Date/Time: Monday, May 08, 2017 05:26 - CONCLUSION: 1. No pulmonary embolus. 2. Large right pleural effusion with possible pleural based mass is seen posterior leak. 3. Large superior mediastinum mass and adenopathy in the left epicardial regions concerning for neoplastic processes such as lymphoma. The large mass has already been biopsied. Bienvenido Lockett MD Abdomen X-Ray 05/08/17 0431 Signed Impressions: Service Date/Time: Monday, May 08, 2017 04:48 - CONCLUSION: Large right pleural effusion. Bienvenido Lockett MD Thoracentesis Ultrasound 05/08/17 0000 Signed Impressions: Service Date/Time: Monday, May 08, 2017 10:35 - CONCLUSION: Uncomplicated ultrasound guided thoracentesis. Alonso Leonardo MD Needle Biopsy CT 05/08/17 0000 Signed Impressions: Service Date/Time: Monday, May 08, 2017 14:43 - CONCLUSION: Uncomplicated CT guided biopsy of an anterior/superior mediastinal mass.. Abilio Murphy Jr., MD Objective Remarks GENERAL: NAD SKIN: Warm and dry. HEAD: Normocephalic. EYES: No scleral icterus. No injection or drainage. NECK: Supple, trachea midline. No JVD or lymphadenopathy. CARDIOVASCULAR: Regular rate and rhythm without murmurs, gallops, or rubs. RESPIRATORY: Breath sounds equal bilaterally. No accessory muscle use. GASTROINTESTINAL: Abdomen soft, non-tender, nondistended. MUSCULOSKELETAL: No cyanosis, or edema. BACK: Nontender without obvious deformity. No CVA tenderness. Procedures Ultrasound-guided thoracentesis on 05/08 CT-guided bone marrow biopsy on 05/10 CT-guided thoracentesis on 05/10 A/P Problem List: (1) Mediastinal mass ICD Code: J98.59 - Other diseases of mediastinum, not elsewhere classified Status: Acute (2) Recurrent right pleural effusion ICD Code: J90 - Pleural effusion, not elsewhere classified Status: Acute (3) Shortness of breath ICD Code: R06.02 - Shortness of breath Status: Acute (4) Right flank pain ICD Code: R10.9 - Unspecified abdominal pain (5) T-cell lymphoma ICD Code: C85.90 - Non-Hodgkin lymphoma, unspecified, unspecified site Assessment and Plan 42 yrs man with Mediastinal mass Newly diagnosed T-cell lymphoma Appreciate input from oncology Patient to start CHOP chemotherapy. Received XRT / today. next XRT will be 05/15. Continue with prednisone Monitor for tumor lysis Recurrent right pleural effusion s/p CT-guided thoracentesis ordered and performed with drainage of 700 mL's of reddish fluid. 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 Shortness of breath much improved after thoracentesis. Right flank pain Treatment as in above Db Caraballo MD May 11, 2017 16:21
[2017-05-12] VITALS (8 sets, daily range): BP systolic 138–148; BP diastolic 84–94; PULSE 84–100; RESP 16–18; TEMP 97.7–99.7; O2SAT 93–96
[2017-05-12] MEDS: HYDROmorphone HCL PF 2 MG/ML VIAL IV PUSH PRN ×3 (01:32→15:13)
[2017-05-12] MEDS: RESP: ALBUTEROL 2.5 MG/IPRATROPIUM 0.5 MG NEB (SCH) NEB ×2 (04:00→10:26)
[2017-05-12 06:51] LABS: AUTOMATED NEUTROPHIL # 4.8 TH/MM3 (1.8-7.7); BASOPHIL % 0.3 % (0.0-2.0); HEMATOCRIT 35.3 % (39.0-51.0); HEMO FLAGS DIFF FINAL; LYMPH % 3.3 % (9.0-44.0); LYMPHOCYTE # 0.2 TH/MM3 (1.0-4.8); MEAN CORPUSCULAR HEMOGLOBIN 27.5 PG (27.0-34.0); MEAN CORPUSCULAR HGB CONC 33.6 % (32.0-36.0); MONO % 7.5 % (0.0-8.0); NEUT % 88.9 % (16.0-70.0); PLATELET COUNT 213 TH/MM3 (150-450); RED BLOOD COUNT 4.31 MIL/MM3 (4.50-5.90); RED CELL DISTRIBUTION WIDTH 13.8 % (11.6-17.2); WHITE BLOOD COUNT 5.4 TH/MM3 (4.0-11.0)
[2017-05-12 06:56] LABS: ALT (GPT) 32 U/L (12-78); ANION GAP 8 MEQ/L (5-15); AST (GOT) 27 U/L (15-37); BICARBONATE 24.4 MEQ/L (21.0-32.0); BLOOD UREA NITROGEN 14 MG/DL (7-18); CHLORIDE 108 MEQ/L (98-107); GLOMERULAR FILTRATION RATE 130 ML/MIN (>89); MAGNESIUM 2.5 MG/DL (1.5-2.5); POTASSIUM 4.2 MEQ/L (3.5-5.1); SODIUM (NA) 140 MEQ/L (136-145); URIC ACID 0.6 MG/DL (2.6-7.2)
[2017-05-12 06:59] LABS: ALKALINE PHOSPHATASE 48 U/L (45-117); LDH SERUM 798 U/L (87-241); TOTAL BILIRUBIN ADULT 0.3 MG/DL (0.2-1.0)
[2017-05-12] MEDS ORDERED: PROMETHAZINE HCL 25 MG TAB PO PRN (08:15)
[2017-05-12] MEDS ORDERED: PROCHLORPERAZINE INJ 10 MG/2 ML VIAL IV PUSH PRN (08:15)
[2017-05-12] MEDS: POLYETHYLENE GLYCOL 17 GM PKG PO SCH (09:00)
[2017-05-12] MEDS: SODIUM CHLORIDE 0.9% FLUSH 10 ML FLUSH IV FLUSH SCH ×3 (09:00→20:17)
[2017-05-12] MEDS: ALLOPURINOL 300 MG TAB PO SCH (09:13)
[2017-05-12] MEDS: predniSONE 50 MG TAB PO SCH (09:13)
[2017-05-12] MEDS: MORPHINE SULFATE 30 MG CONTROLLED RELEASE TAB PO SCH ×2 (09:13→20:17)
[2017-05-12] MEDS: DOCUSATE SODIUM 50 MG/SENNA 8.6 MG TAB PO SCH ×2 (09:13→20:17)
--- NOTE | 2017-05-12 10:02 | PD.ONC.PN ---
Subjective Subjective Remarks Afebrile overnight. Patient had some nausea overnight, which did not improve with zofran. Breathing is improved. Still overwhelmed and anxious. Objective Data Date Time Temp Pulse Resp B/P (MAP) Pulse Ox O2 Delivery O2 Flow Rate FiO2 05/12/17 08:08 96 Nasal Cannula 3.00 05/12/17 08:04 98.2 92 18 138/94 (109) 96 05/12/17 05:40 98.9 100 18 148/86 (106) 93 05/12/17 01:30 97.7 99 16 148/84 (105) 93 05/11/17 21:00 Nasal Cannula 3.00 05/11/17 21:00 97.9 100 16 141/74 (96) 92 05/11/17 21:00 98 05/11/17 20:51 95 Nasal Cannula 3.00 05/11/17 16:05 98.0 93 18 124/69 (87) 92 05/11/17 11:33 92 Nasal Cannula 3.00 05/11/17 11:30 98.3 108 18 136/76 (96) 92 05/11/17 10:32 93 Nasal Cannula 2.50 05/12/17 05/12/17 05/12/17 07:00 15:00 23:00 Intake Total 480 ml Output Total 640 ml Balance -160 ml Result Diagram: 05/12/17 0555 05/12/17 0555 Laboratory Results Laboratory Tests Test 05/12/17 05:55 White Blood Count 5.4 TH/MM3 Red Blood Count 4.31 MIL/MM3 Hemoglobin 11.9 GM/DL Hematocrit 35.3 % Mean Corpuscular Volume 82.0 FL Mean Corpuscular Hemoglobin 27.5 PG Mean Corpuscular Hemoglobin Concent 33.6 % Red Cell Distribution Width 13.8 % Platelet Count 213 TH/MM3 Mean Platelet Volume 7.0 FL Neutrophils (%) (Auto) 88.9 % Lymphocytes (%) (Auto) 3.3 % Monocytes (%) (Auto) 7.5 % Eosinophils (%) (Auto) 0.0 % Basophils (%) (Auto) 0.3 % Neutrophils # (Auto) 4.8 TH/MM3 Lymphocytes # (Auto) 0.2 TH/MM3 Monocytes # (Auto) 0.4 TH/MM3 Eosinophils # (Auto) 0.0 TH/MM3 Basophils # (Auto) 0.0 TH/MM3 CBC Comment DIFF FINAL Differential Comment Blood Urea Nitrogen 14 MG/DL Creatinine 0.67 MG/DL Random Glucose 117 MG/DL Total Protein 6.3 GM/DL Albumin 2.4 GM/DL Calcium Level 8.6 MG/DL Phosphorus Level 2.9 MG/DL Magnesium Level 2.5 MG/DL Uric Acid 0.6 MG/DL Alkaline Phosphatase 48 U/L Aspartate Amino Transf (AST/SGOT) 27 U/L Alanine Aminotransferase (ALT/SGPT) 32 U/L Lactate Dehydrogenase 798 U/L Total Bilirubin 0.3 MG/DL Sodium Level 140 MEQ/L Potassium Level 4.2 MEQ/L Chloride Level 108 MEQ/L Carbon Dioxide Level 24.4 MEQ/L Anion Gap 8 MEQ/L Estimat Glomerular Filtration Rate 130 ML/MIN Administered Medications Medications (Trade) Dose Ordered Sig/Suzan Route PRN Reason Start Time Stop Time Status Last Admin Dose Admin Ondansetron HCl (Zofran Inj) 4 mg Q6H PRN IVP NAUSEA OR VOMITING 05/08/17 06:45 05/11/17 16:46 Albuterol/ Ipratropium (Duoneb Neb) 1 ampule Q6HR NEB NEB 05/08/17 12:00 05/11/17 20:49 Albuterol/ Ipratropium (Duoneb Neb) 1 ampule Q2HR NEB PRN NEB sob/wheezing 05/08/17 07:00 05/10/17 23:02 Morphine Sulfate (Oramorph Sr) 30 mg BID PO 05/08/17 21:00 05/12/17 09:13 Sodium Chloride (NS Flush) 2 ml BID IV FLUSH 05/08/17 21:00 05/12/17 09:13 Lorazepam (Ativan) 0.5 mg Q8H PRN PO ANXIETY 05/08/17 17:00 05/11/17 00:16 Senna/Docusate Sodium (Naa-Colace) 2 tab BID PO 05/08/17 21:00 05/12/17 09:13 Sodium Chloride 1,000 ml @ 60 mls/hr [id number] IV 05/09/17 18:15 05/11/17 21:49 Allopurinol (Zyloprim) 300 mg DAILY PO 05/09/17 20:00 05/12/17 09:13 Hydromorphone HCl (Dilaudid Pf Inj) 1 mg Q3HR PRN IV PUSH pain3-10 05/10/17 12:00 05/12/17 05:36 Prednisone (Deltasone) 100 mg DAILY PO 05/10/17 16:00 05/14/17 09:01 05/12/17 09:13 Prochlorperazine Edisylate (Compazine Inj) 5 mg Q4H PRN IV PUSH nausea 05/12/17 08:15 05/12/17 09:33 Objective Remarks GENERAL: Middle aged male sitting up in wheelchair in nad. On 3L O2 via NC SKIN: Warm and dry. HEAD: Normocephalic. EYES: No injection or drainage. NECK: Supple, trachea midline. CARDIOVASCULAR: +S1/S2 RESPIRATORY: diminished at right base. anterior flores with occasional rhonchi. GASTROINTESTINAL: Abdomen soft, non-tender, nondistended. EXTREMITIES: No cyanosis MUSCULOSKELETAL: Adequate muscle tone. NEUROLOGICAL: awake and alert, normal speech. Assessment/Plan Problem List: (1) T-cell lymphoma ICD Codes: C85.90 - Non-Hodgkin lymphoma, unspecified, unspecified site Plan: Flow cytometry showing T-cell lymphoma. T cell gene rearrangement study is pending. 05/09: XRT started to right lung, plan is for 5 treatments. Discussed w/ CTS, difficult resection, unlikely that he will be able to resect completely. 05/10: XRT 2/5 completed. flow cytometry returned showing T-cell lymphoma. in light of this diagnosis. given CHOP chemotherapy. bone marrow biopsy for staging. 05/11: continue prednisone 05/12: continue Prednisone. add Compazine and phenergan PRN nausea (2) At high risk of tumor lysis syndrome ICD Codes: Z91.89 - Other specified personal risk factors, not elsewhere classified Plan: 05/10: uric acid 13. will dose with Rasburicase today. 05/11: uric acid improved. continue to monitor uric acid, LDH, phosphorus, mag daily. 05/12: will continue to monitor uric acid. continue allopurinol (3) Recurrent right pleural effusion ICD Codes: J90 - Pleural effusion, not elsewhere classified Status: Acute Plan: --s/p thoracentesis 05/10 Assessment 42 y/o man with newly diagnosed T-cell lymphoma. Plan 1. continue prednisone 2. add compazine and phenergan PRN nausea. 3. monitor CBC, CMP, LDH, uric acid Attending Statement The exam, history, and the medical decision-making described in the above note were completed with the assistance of the mid-level provider. I reviewed and agree with the findings presented. I attest that I had a [id number] encounter with the patient on the same day, and personally performed and documented my assessment and findings in the medical record. doing well and less sob and feels better. had nausea last night and has required antiemetics. no evidence of tumor lysis syndrome. Will do walk test to see if he needs home oxygen and hopefully can go home tomorrow. exam suggests residual effusion but less. Doris Liu May 12, 2017 10:02 Lizandro Sánchez MD May 12, 2017 10:46
--- NOTE | 2017-05-12 11:29 | HHI.PR ---
Subjective Remarks Follow up newly diagnosed T-cell lymphoma 05/11/17-patient seen and examined; denies any pain. NO shortness of breath.Wants to go home 05/12/17-patient seen and examined, had episode of nausea overnight. Just returned from radiation therapy. Reports improvement of breathing and shortness of breath Objective Vitals Vital Signs Date Time Temp Pulse Resp B/P (MAP) Pulse Ox O2 Delivery O2 Flow Rate FiO2 05/12/17 08:08 96 Nasal Cannula 3.00 05/12/17 08:04 98.2 92 18 138/94 (109) 96 05/12/17 07:00 90 05/12/17 05:40 98.9 100 18 148/86 (106) 93 05/12/17 01:30 97.7 99 16 148/84 (105) 93 05/11/17 21:00 Nasal Cannula 3.00 05/11/17 21:00 97.9 100 16 141/74 (96) 92 05/11/17 21:00 98 05/11/17 20:51 95 Nasal Cannula 3.00 05/11/17 16:05 98.0 93 18 124/69 (87) 92 05/11/17 11:33 92 Nasal Cannula 3.00 05/11/17 11:30 98.3 108 18 136/76 (96) 92 I/O 05/11/17 05/11/17 05/11/17 05/12/17 05/12/17 05/12/17 07:00 15:00 23:00 07:00 15:00 23:00 Intake Total 1270 ml 1000 ml 480 ml Output Total 650 ml 640 ml Balance 620 ml 1000 ml -160 ml Intake Oral 720 ml 480 ml IV Total 550 ml 1000 ml Output Urine Total 650 ml 640 ml # Voids 3 # Bowel Movements 0 Result Diagram: 05/12/1755405/12/1755 Objective Remarks GENERAL: NAD SKIN: Warm and dry. HEAD: Normocephalic. EYES: No scleral icterus. No injection or drainage. NECK: Supple, trachea midline. No JVD or lymphadenopathy. CARDIOVASCULAR: Regular rate and rhythm without murmurs, gallops, or rubs. RESPIRATORY: Breath sounds equal bilaterally. No accessory muscle use. GASTROINTESTINAL: Abdomen soft, non-tender, nondistended. MUSCULOSKELETAL: No cyanosis, or edema. BACK: Nontender without obvious deformity. No CVA tenderness. Procedures Ultrasound-guided thoracentesis on 05/08 CT-guided bone marrow biopsy on 05/10 CT-guided thoracentesis on 05/10 A/P Problem List: (1) Mediastinal mass ICD Code: J98.59 - Other diseases of mediastinum, not elsewhere classified Status: Acute (2) Recurrent right pleural effusion ICD Code: J90 - Pleural effusion, not elsewhere classified Status: Acute (3) Shortness of breath ICD Code: R06.02 - Shortness of breath Status: Acute (4) Right flank pain ICD Code: R10.9 - Unspecified abdominal pain (5) T-cell lymphoma ICD Code: C85.90 - Non-Hodgkin lymphoma, unspecified, unspecified site Assessment and Plan 42 yrs man with Mediastinal mass Newly diagnosed T-cell lymphoma Appreciate input from oncology Patient to start CHOP chemotherapy. Received XRT 07/22 . . Continue with prednisone Monitor for tumor lysis-uric acid improving and continue allopurinol Recurrent right pleural effusion s/p CT-guided thoracentesis ordered and performed with drainage of 700 mL's of reddish fluid. 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 Shortness of breath much improved after thoracentesis. Right flank pain Treatment as in above Discharge Planning Likely discharge in Db Cabello MD May 12, 2017 11:29
[2017-05-12] MEDS ORDERED: OXYGENDME NAS.CANULA (11:31)
[2017-05-12] MEDS: SODIUM CHLOR 0.9% 1000 ML INJ 1,000 ML IV SCH (15:08)
[2017-05-12] MEDS: LORazepam 0.5 MG TAB PO PRN (20:16)
[2017-05-13 00:14] VITALS: PULSE 75
[2017-05-13 00:39] VITALS: BP 127/80; PULSE 88; RESP 18; TEMP 98.3; O2SAT 97
[2017-05-13 04:23] VITALS: BP 135/83; PULSE 87; RESP 18; TEMP 97.8; O2SAT 96
[2017-05-13] MEDS: LORazepam 0.5 MG TAB PO PRN (04:34)
[2017-05-13 05:14] LABS: AUTOMATED NEUTROPHIL # 2.7 TH/MM3 (1.8-7.7); BASOPHIL % 0.1 % (0.0-2.0); EOSINOPHIL % 0.1 % (0.0-4.0); HEMO FLAGS DIFF FINAL; LYMPH % 7.3 % (9.0-44.0); LYMPHOCYTE # 0.2 TH/MM3 (1.0-4.8); MEAN CELL VOLUME 81.6 FL (80.0-100.0); MEAN CORPUSCULAR HEMOGLOBIN 27.7 PG (27.0-34.0); MEAN CORPUSCULAR HGB CONC 33.9 % (32.0-36.0); MONO % 4.8 % (0.0-8.0); NEUT % 87.7 % (16.0-70.0); PLATELET COUNT 204 TH/MM3 (150-450); RED BLOOD COUNT 3.92 MIL/MM3 (4.50-5.90); RED CELL DISTRIBUTION WIDTH 13.5 % (11.6-17.2); WHITE BLOOD COUNT 3.1 TH/MM3 (4.0-11.0)
[2017-05-13 05:43] LABS: ALT (GPT) 30 U/L (12-78); ANION GAP 4 MEQ/L (5-15); AST (GOT) 18 U/L (15-37); BICARBONATE 29.4 MEQ/L (21.0-32.0); BLOOD UREA NITROGEN 14 MG/DL (7-18); CHLORIDE 106 MEQ/L (98-107); GLOMERULAR FILTRATION RATE 154 ML/MIN (>89); MAGNESIUM 2.2 MG/DL (1.5-2.5); POTASSIUM 3.9 MEQ/L (3.5-5.1); SODIUM (NA) 139 MEQ/L (136-145); URIC ACID 1.3 MG/DL (2.6-7.2)
[2017-05-13 05:46] LABS: ALKALINE PHOSPHATASE 42 U/L (45-117); LDH SERUM 606 U/L (87-241); TOTAL BILIRUBIN ADULT 0.4 MG/DL (0.2-1.0)
[2017-05-13] MEDS: SODIUM CHLOR 0.9% 1000 ML INJ 1,000 ML IV SCH (07:30)
[2017-05-13 07:40] VITALS: BP 145/93; PULSE 87; RESP 17; TEMP 98.3; O2SAT 97
[2017-05-13] MEDS: ALLOPURINOL 300 MG TAB PO SCH (08:55)
[2017-05-13] MEDS: DOCUSATE SODIUM 50 MG/SENNA 8.6 MG TAB PO SCH (08:55)
[2017-05-13] MEDS: predniSONE 50 MG TAB PO SCH (08:55)
[2017-05-13] MEDS: MORPHINE SULFATE 30 MG CONTROLLED RELEASE TAB PO SCH (08:57)
[2017-05-13] MEDS: POLYETHYLENE GLYCOL 17 GM PKG PO SCH (08:58)
--- NOTE | 2017-05-13 10:47 | HHI.PR ---
Subjective Remarks Follow up newly diagnosed T-cell lymphoma 05/11/17-patient seen and examined; denies any pain. NO shortness of breath.Wants to go home 05/12/17-patient seen and examined, had episode of nausea overnight. Just returned from radiation therapy. Reports improvement of breathing and shortness of breath 05/13/17-patient seen and examined, denies any chest pain or shortness of breath. Uric acid 1.3 Objective Vitals Vital Signs Date Time Temp Pulse Resp B/P (MAP) Pulse Ox O2 Delivery O2 Flow Rate FiO2 05/13/17 08:50 Nasal Cannula 2.50 Humidified 05/13/17 07:40 98.3 87 17 145/93 (110) 97 05/13/17 04:23 97.8 87 18 135/83 (100) 96 05/13/17 00:39 98.3 88 18 127/80 (96) 97 05/13/17 00:14 75 05/12/17 21:33 96 Nasal Cannula 3.00 05/12/17 20:20 Nasal Cannula 3.00 05/12/17 20:13 99.7 89 18 138/91 (107) 95 05/12/17 20:03 86 05/12/17 15:07 98.3 84 18 144/88 (106) 94 I/O 05/12/17 05/12/17 05/12/17 05/13/17 05/13/17 05/13/17 07:00 15:00 23:00 07:00 15:00 23:00 Intake Total 480 ml 720 ml 240 ml Output Total 640 ml Balance -160 ml 720 ml 240 ml Intake Oral 480 ml 720 ml 240 ml Output Urine Total 640 ml # Voids 4 3 # Bowel Movements 0 Result Diagram: 05/13/17 0430 05/13/17 0430 Objective Remarks GENERAL: NAD SKIN: Warm and dry. HEAD: Normocephalic. EYES: No scleral icterus. No injection or drainage. NECK: Supple, trachea midline. No JVD or lymphadenopathy. CARDIOVASCULAR: Regular rate and rhythm without murmurs, gallops, or rubs. RESPIRATORY: Breath sounds equal bilaterally. No accessory muscle use. GASTROINTESTINAL: Abdomen soft, non-tender, nondistended. MUSCULOSKELETAL: No cyanosis, or edema. BACK: Nontender without obvious deformity. No CVA tenderness. Procedures Ultrasound-guided thoracentesis on 05/08 CT-guided bone marrow biopsy on 05/10 CT-guided thoracentesis on 05/10 A/P Problem List: (1) Mediastinal mass ICD Code: J98.59 - Other diseases of mediastinum, not elsewhere classified Status: Acute (2) Recurrent right pleural effusion ICD Code: J90 - Pleural effusion, not elsewhere classified Status: Acute (3) Shortness of breath ICD Code: R06.02 - Shortness of breath Status: Acute (4) Right flank pain ICD Code: R10.9 - Unspecified abdominal pain (5) T-cell lymphoma ICD Code: C85.90 - Non-Hodgkin lymphoma, unspecified, unspecified site Assessment and Plan 42 yrs man with Mediastinal mass Newly diagnosed T-cell lymphoma Appreciate input from oncology Patient to start CHOP chemotherapy. Received XRT 07/22 . . Continue with prednisone Monitor for tumor lysis-uric, uric acid 1.3 today and continue allopurinol Recurrent right pleural effusion s/p CT-guided thoracentesis ordered and performed with drainage of 700 mL's of reddish fluid. 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 Shortness of breath much improved after thoracentesis. Right flank pain Treatment as in above DVT prophylaxis: Bilateral SCDs Discharge Planning Likely discharge in Db Cabello MD May 13, 2017 10:47
--- NOTE | 2017-05-13 11:01 | PD.ONC.PN ---
Subjective Subjective Remarks Patient seen and examined, vital signs, labs medications and chemotherapy orders as well as chemotherapy administration times and dates and doses reviewed. Subjectively; the patient reports his breathing feels somewhat improved, he tells me continues to have pain in his chest but this is well-controlled with oral pain medications; oral morphine. He tells me he is eager to go home but will follow our advice. His children are waiting for him at home to open their Katerin presents. He denies fevers or chills, reports tolerating oral solids and liquids well, he denies nausea or vomiting. He has been ambulating with oxygen supplementation, he tells me oxygen has been delivered to his home. Objective Data Date Time Temp Pulse Resp B/P (MAP) Pulse Ox O2 Delivery O2 Flow Rate FiO2 05/13/17 08:50 Nasal Cannula 2.50 Humidified 05/13/17 07:40 98.3 87 17 145/93 (110) 97 05/13/17 04:23 97.8 87 18 135/83 (100) 96 05/13/17 00:39 98.3 88 18 127/80 (96) 97 05/13/17 00:14 75 05/12/17 21:33 96 Nasal Cannula 3.00 05/12/17 20:20 Nasal Cannula 3.00 05/12/17 20:13 99.7 89 18 138/91 (107) 95 05/12/17 20:03 86 05/12/17 15:07 98.3 84 18 144/88 (106) 94 05/13/17 05/13/17 05/13/17 07:00 15:00 23:00 Intake Total 240 ml Balance 240 ml Result Diagram: 05/13/17 0430 05/13/17 0430 Laboratory Results Laboratory Tests Test 05/13/17 04:30 White Blood Count 3.1 TH/MM3 Red Blood Count 3.92 MIL/MM3 Hemoglobin 10.8 GM/DL Hematocrit 32.0 % Mean Corpuscular Volume 81.6 FL Mean Corpuscular Hemoglobin 27.7 PG Mean Corpuscular Hemoglobin Concent 33.9 % Red Cell Distribution Width 13.5 % Platelet Count 204 TH/MM3 Mean Platelet Volume 6.8 FL Neutrophils (%) (Auto) 87.7 % Lymphocytes (%) (Auto) 7.3 % Monocytes (%) (Auto) 4.8 % Eosinophils (%) (Auto) 0.1 % Basophils (%) (Auto) 0.1 % Neutrophils # (Auto) 2.7 TH/MM3 Lymphocytes # (Auto) 0.2 TH/MM3 Monocytes # (Auto) 0.1 TH/MM3 Eosinophils # (Auto) 0.0 TH/MM3 Basophils # (Auto) 0.0 TH/MM3 CBC Comment DIFF FINAL Differential Comment Blood Urea Nitrogen 14 MG/DL Creatinine 0.58 MG/DL Random Glucose 96 MG/DL Total Protein 5.5 GM/DL Albumin 2.2 GM/DL Calcium Level 8.4 MG/DL Phosphorus Level 3.3 MG/DL Magnesium Level 2.2 MG/DL Uric Acid 1.3 MG/DL Alkaline Phosphatase 42 U/L Aspartate Amino Transf (AST/SGOT) 18 U/L Alanine Aminotransferase (ALT/SGPT) 30 U/L Lactate Dehydrogenase 606 U/L Total Bilirubin 0.4 MG/DL Sodium Level 139 MEQ/L Potassium Level 3.9 MEQ/L Chloride Level 106 MEQ/L Carbon Dioxide Level 29.4 MEQ/L Anion Gap 4 MEQ/L Estimat Glomerular Filtration Rate 154 ML/MIN Administered Medications Medications (Trade) Dose Ordered Sig/Suzan Route PRN Reason Start Time Stop Time Status Last Admin Dose Admin Ondansetron HCl (Zofran Inj) 4 mg Q6H PRN IVP NAUSEA OR VOMITING 05/08/17 06:45 05/11/17 16:46 Albuterol/ Ipratropium (Duoneb Neb) 1 ampule Q2HR NEB PRN NEB sob/wheezing 05/08/17 07:00 05/10/17 23:02 Morphine Sulfate (Oramorph Sr) 30 mg BID PO 05/08/17 21:00 05/13/17 08:57 Sodium Chloride (NS Flush) 2 ml BID IV FLUSH 05/08/17 21:00 05/12/17 09:13 Lorazepam (Ativan) 0.5 mg Q8H PRN PO ANXIETY 05/08/17 17:00 05/13/17 04:34 Senna/Docusate Sodium (Naa-Colace) 2 tab BID PO 05/08/17 21:00 05/13/17 08:55 Sodium Chloride 1,000 ml @ 60 mls/hr [id number] IV 05/09/17 18:15 05/13/17 07:30 Allopurinol (Zyloprim) 300 mg DAILY PO 05/09/17 20:00 05/13/17 08:55 Hydromorphone HCl (Dilaudid Pf Inj) 1 mg Q3HR PRN IV PUSH pain3-10 05/10/17 12:00 05/12/17 15:13 Prednisone (Deltasone) 100 mg DAILY PO 05/10/17 16:00 05/14/17 09:01 05/13/17 08:55 Prochlorperazine Edisylate (Compazine Inj) 5 mg Q4H PRN IV PUSH nausea 05/12/17 08:15 05/12/17 09:33 Objective Remarks GENERAL: Middle aged male sitting up in wheelchair in nad. On 3L O2 via NC SKIN: Warm and dry. HEAD: Normocephalic. EYES: No injection or drainage. NECK: Supple, trachea midline. CARDIOVASCULAR: +S1/S2 RESPIRATORY: diminished at right base. anterior flores with occasional rhonchi. GASTROINTESTINAL: Abdomen soft, non-tender, nondistended. EXTREMITIES: No cyanosis MUSCULOSKELETAL: Adequate muscle tone. NEUROLOGICAL: awake and alert, normal speech. Assessment/Plan Problem List: (1) T-cell lymphoma ICD Codes: C85.90 - Non-Hodgkin lymphoma, unspecified, unspecified site Plan: Flow cytometry showing T-cell lymphoma. T cell gene rearrangement study is pending. 05/09: XRT started to right lung, plan is for 5 treatments. Discussed w/ CTS, difficult resection, unlikely that he will be able to resect completely. 05/10: XRT 2/5 completed. flow cytometry returned showing T-cell lymphoma. in light of this diagnosis. given CHOP chemotherapy. bone marrow biopsy for staging. 05/11: continue prednisone 05/12: continue Prednisone. add Compazine and phenergan PRN nausea (2) At high risk of tumor lysis syndrome ICD Codes: Z91.89 - Other specified personal risk factors, not elsewhere classified Plan: 05/10: uric acid 13. will dose with Rasburicase today. 05/11: uric acid improved. continue to monitor uric acid, LDH, phosphorus, mag daily. 05/12: will continue to monitor uric acid. continue allopurinol (3) Recurrent right pleural effusion ICD Codes: J90 - Pleural effusion, not elsewhere classified Status: Acute Plan: --s/p thoracentesis 05/10 Assessment 42 y/o man with newly diagnosed T-cell lymphoma. Plan Acute lymphoblastic leukemia: Status post cycle #1 CHOP delivered on 2016. Continue daily prednisone and oral antiemetic therapy. He will require outpatient intrathecal methotrexate and arrangements for this will be made in the next week. I will call in anti-emetic therapy; Marcio to his [facility] pharmacy in [place] and will also call in nebulizer treatments. I will request his PICC line be pulled before discharge. Home oxygen has been delivered. Clinically stable for discharge. Onel Wang MD May 13, 2017 11:01
[2017-05-13 11:11] VITALS: O2SAT 97
--- NOTE | 2017-05-13 11:20 | HHI.PR ---
Addendum to Inpatient Note Addendum Reason: Additional Documentation Additional Information Case discussed with Dr. Wang, oncology , who will be calling patient's medications in to his pharmacy Db Caraballo MD May 13, 2017 11:20
--- NOTE | 2017-05-13 11:29 | HHI.DS ---
Discharge Summary Admission Date May 08, 2017 at 06:33 Discharge Date: May 13, 2017 Admitting Diagnosis shortness of breath, large recurrent pleural effusion with mediastin (1) Mediastinal mass ICD Code: J98.59 - Other diseases of mediastinum, not elsewhere classified Status: Acute (2) Recurrent right pleural effusion ICD Code: J90 - Pleural effusion, not elsewhere classified Status: Acute (3) Shortness of breath ICD Code: R06.02 - Shortness of breath Status: Acute (4) Right flank pain ICD Code: R10.9 - Unspecified abdominal pain (5) T-cell lymphoma ICD Code: C85.90 - Non-Hodgkin lymphoma, unspecified, unspecified site Procedures Ultrasound-guided thoracentesis on 05/08 CT-guided bone marrow biopsy on 05/10 CT-guided thoracentesis on 05/10 Brief History - From Admission Very unfortunate 42-year-old male with primary medical history of asthma and recently discharged after he was found with large mediastinal mass. Patient presents with a large mediastinal mass and recurrent right pleural effusion with sob, right chest wall, back, and abdominal pain. 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 Patient was seen by Dr. Frey ~10 days ago for a large mediastinal mass of unknown etiology. The patient also had a right pleural effusion which was drained at that time and was discharged home to follow up as OP with hem/onc and surgeon. He had a percutaneous biopsy which was suggestive of lymphoma vs thymoma and there was not enough tissue for further characterization. He returned to the ED today with right chest wall, back, and abdominal pain. He states he has not had a bowel movement since his prior hospitalization. He underwent repeat thoracentesis of ~2.5 liters today and remains very uncomfortable. The diagnosis has not been established, but this mass is behaving like an aggressive malignant process. He is being considered for surgical intervention by CTS however per CTS cannot offer this patient any guarantee of benefit from surgical intervention as the tumor may be very vascular or invading vital structures. Patient /family are in favor for surgery. Plan for rad /chemo first. CBC/BMP: 05/13/17 0430 05/13/17 0430 Significant Findings Laboratory Tests Test 05/10/17 14:50 05/11/17 06:15 05/12/17 05:55 05/13/17 04:30 White Blood Count 3.6 TH/MM3 (4.0-11.0) 3.1 TH/MM3 (4.0-11.0) Red Blood Count 4.18 MIL/MM3 (4.50-5.90) 4.31 MIL/MM3 (4.50-5.90) 3.92 MIL/MM3 (4.50-5.90) Hemoglobin 11.7 GM/DL (13.0-17.0) 11.9 GM/DL (13.0-17.0) 10.8 GM/DL (13.0-17.0) Hematocrit 34.4 % (39.0-51.0) 35.3 % (39.0-51.0) 32.0 % (39.0-51.0) Neutrophils (%) (Auto) 95.1 % (16.0-70.0) 88.9 % (16.0-70.0) 87.7 % (16.0-70.0) Lymphocytes (%) (Auto) 2.8 % (9.0-44.0) 3.3 % (9.0-44.0) 7.3 % (9.0-44.0) Lymphocytes # (Auto) 0.1 TH/MM3 (1.0-4.8) 0.2 TH/MM3 (1.0-4.8) 0.2 TH/MM3 (1.0-4.8) Random Glucose 193 MG/DL (74-106) 117 MG/DL (74-106) Total Protein 6.0 GM/DL (6.4-8.2) 6.3 GM/DL (6.4-8.2) 5.5 GM/DL (6.4-8.2) Albumin 2.3 GM/DL (3.4-5.0) 2.4 GM/DL (3.4-5.0) 2.2 GM/DL (3.4-5.0) Calcium Level 8.2 MG/DL (8.5-10.1) 8.4 MG/DL (8.5-10.1) Uric Acid 0.8 MG/DL (2.6-7.2) 0.6 MG/DL (2.6-7.2) 1.3 MG/DL (2.6-7.2) Lactate Dehydrogenase 885 U/L (87-241) 798 U/L (87-241) 606 U/L (87-241) Chloride Level 108 MEQ/L (98-107) Mean Platelet Volume 6.8 FL (7.0-11.0) Creatinine 0.58 MG/DL (0.60-1.30) Alkaline Phosphatase 42 U/L (45-117) Anion Gap 4 MEQ/L (5-15) Imaging Last Impressions Thoracentesis 05/10/17 1458 Signed Impressions: Service Date/Time: Wednesday, May 10, 2017 15:33 - CONCLUSION: Uncomplicated CT-guided thoracentesis. Only 700 mL of fluid was able to be removed. Some fluid does remain in the hemithorax anteriorly which did not drain as the patient was in the prone position. The patient was in the prone position due to sedation and recent bone marrow biopsy. Abilio Murphy Jr., MD Chest X-Ray 05/10/17 0000 Signed Impressions: Service Date/Time: Wednesday, May 10, 2017 18:39 - CONCLUSION: 1. PICC line catheter tip in the right atrium. 2. The size of the right pleural effusion has increased when compared to 05/09/17. No evidence pneumothorax. Abilio Merida MD Bone Biopsy CT 05/10/17 0000 Signed Impressions: Service Date/Time: Wednesday, May 10, 2017 14:59 - CONCLUSION: 1. Uncomplicated CT guided bone marrow aspirate. 2. Uncomplicated CT guided bone marrow biopsy. Abilio Murphy Jr., MD Abdomen CT 05/09/17 0000 Signed Impressions: Service Date/Time: April 21:52 - CONCLUSION: Interval development of several new masses centered around the medial right hemidiaphragm with the 2 largest masses measuring 3.8 cm and 3.6 cm. There has also been a significant increase in size of right pleural effusion and interval development of collapse of the right lower lobe. Abilio Merida MD CT Angiography 05/08/17 0514 Signed Impressions: Service Date/Time: Monday, May 08, 2017 05:26 - CONCLUSION: 1. No pulmonary embolus. 2. Large right pleural effusion with possible pleural based mass is seen posterior leak. 3. Large superior mediastinum mass and adenopathy in the left epicardial regions concerning for neoplastic processes such as lymphoma. The large mass has already been biopsied. Bienvenido Lockett MD Abdomen X-Ray 05/08/17 0431 Signed Impressions: Service Date/Time: Monday, May 08, 2017 04:48 - CONCLUSION: Large right pleural effusion. Bienvenido Lockett MD Thoracentesis Ultrasound 05/08/17 0000 Signed Impressions: Service Date/Time: Monday, May 08, 2017 10:35 - CONCLUSION: Uncomplicated ultrasound guided thoracentesis. Alonso Leonardo MD Needle Biopsy CT 05/08/17 0000 Signed Impressions: Service Date/Time: Monday, May 08, 2017 14:43 - CONCLUSION: Uncomplicated CT guided biopsy of an anterior/superior mediastinal mass.. Abilio Murphy Jr., MD PE at Discharge GENERAL: NAD SKIN: Warm and dry. HEAD: Normocephalic. EYES: No scleral icterus. No injection or drainage. NECK: Supple, trachea midline. No JVD or lymphadenopathy. CARDIOVASCULAR: Regular rate and rhythm without murmurs, gallops, or rubs. RESPIRATORY: Breath sounds equal bilaterally. No accessory muscle use. GASTROINTESTINAL: Abdomen soft, non-tender, nondistended. MUSCULOSKELETAL: No cyanosis, or edema. BACK: Nontender without obvious deformity. No CVA tenderness. Hospital Course He presented with shortness of breath and right sided pain, was found to have mediastinal mass in right large pleural effusion and underwent thoracentesis 2 with cytology report positive for T-cell lymphoblastic lymphoma for which oncology was consulted. Patient was started on CHOP chemotherapy and received radiation therapy while in hospital. He was subsequently switched to prednisone. While in hospital, patient was monitor for tumor lysis. DVT and GI prophylaxis were provided. Patient's condition improved and vital remained stable prior to discharge. Pt Condition on Discharge: Stable Discharge Disposition: Discharge Home Discharge Time: <= 30 minutes Discharge Instructions DIET: Follow Instructions for: Heart Healthy Diet Activities you can perform: Regular-No Restrictions Follow up Referrals: Oncology PCP Follow-up - 1 Week New Medications: Oxygen (O2) (Oxygen (O2)) Device LITER BETTYE.CANULA CONTINUOUS for Prevent Hypoxemia, #3 Oxygen Concentrator Portable Gaseous 2 L/min via Nasal Canula Continuous For 99 months Continued Medications: Morphine ER (Morphine ER) 30 Mg Tab 30 MG PO BID for Pain Management, TAB 0 Refills Sennosides (Senna-Lax) 8.6 Mg Tab 17.2 MG PO Q12H PRN for Moderate constipation, #60 TAB [no active meds] () Db Caraballo MD May 13, 2017 11:29
[2017-05-13 12:20] VITALS: BP 148/90; PULSE 60; RESP 18; TEMP 97.7; O2SAT 98
== END 2017-05-13 13:30 | disposition home or self-care (01) | DRG 840 ==
LOC: NEPE 03:39 → NEDA 06:33 → HCIS 16:58 → HCIN 05-10 08:18 → HCIS 05-10 10:06 → HCIN 05-10 10:07
PROVIDERS: ADMIT Hospitalist; ATTEND Hospitalist
PROC: 0W993ZZ Drainage of Right Pleural Cavity, Percutaneous Approach (ICD-10-PCS; principal; 2017-05-08)
PROC: 0W993ZX Drainage of Right Pleural Cavity, Percutaneous Approach, Diagnostic (ICD-10-PCS; 2017-05-08)
PROC: 0WBC3ZX Excision of Mediastinum, Percutaneous Approach, Diagnostic (ICD-10-PCS; 2017-05-08)
PROC: 07DR3ZX Extraction of Iliac Bone Marrow, Percutaneous Approach, Diagnostic (ICD-10-PCS; 2017-05-10)
DX: C83.52 Lymphoblastic (diffuse) lymphoma, intrathoracic lymph nodes (principal); J96.00 Acute respiratory failure, unspecified whether with hypoxia or hypercapnia; J90 Pleural effusion, not elsewhere classified; J45.909 Unspecified asthma, uncomplicated; K59.00 Constipation, unspecified; F41.9 Anxiety disorder, unspecified; I10 Essential (primary) hypertension; M19.90 Unspecified osteoarthritis, unspecified site
CPT/HCPCS: 32405; 32555; 36569; 38221; 71010; 71275; 74020; 74160; 76937; 77012; 77263; 77293; 77295; 77300; 77334; 77336; 77387; 77412; 77427; 80048; 80053; 81342; 83615; 83690; 83735; 84100; 84550; 85025; 85097; 85379; 85610; 85730; 86140; 87070; 87205; 88112; 88184; 88185; 88233; 88237; 88264; 88280; 88305; 88307; 88311; 88313; 88341; 88342; 89051; 93306; 94640; 94664; 96361; 96374; 96375; 99152; 99153; C1729; C1830; G0364; J0461; J0780; J1100; J1170; J1626; J2250; J2270; J2405; J2783; J3010; J7030; J7040; J7512; J9000; J9070; J9370; Q9963; Q9967

== ENCOUNTER → 2017-05-29 | Day surgery (SDC) | payer BC ==
[~2017-05-29] MED LIST changes: -ALLO100 PO; -ALPR.25 PO; -LACTCHW3 CHEW; -LEVA750T9 PO; +MIDAZOLAM HCL 2 MG/2 ML VIAL ONE; +MORP1TAB25 PO; -NORC5TAB PO; +ONDANSETRON HCL 4 MG/2 ML VIAL IV PUSH ONE; +OXYGENDME NAS.CANULA; +PROPOFOL 500 MG/50 ML BTL IV ONE; +SODIUM CHLORIDE 0.9% INJ 10 ML ONE; +ceFAZolin 2 GM PREMIX 50 ML ONE
--- NOTE | 2017-06-05 16:27 | TN ---
cc: GLEN URIBE M.D. DATE OF OPERATION 05/29/2017 PREOPERATIVE DIAGNOSIS Lymphoma. POSTOPERATIVE DIAGNOSIS Lymphoma. PROCEDURE PERFORMED Left subclavian [id number] with intraoperative fluoroscopy. SURGEON Glen Uribe MD ANESTHESIA TIVA with local COMPLICATIONS None INDICATION FOR PROCEDURE Mr. Turner is a very pleasant gentleman who was recently diagnosed with a chest lymphoma. He requires immediate IV chemotherapy for treatment. Risks and benefits of [id number] placement was discussed with him and he was agreeable. DETAILS OF PROCEDURE The patient was identified, brought to the operating room and placed supine on the operating table. After adequate IV sedation was achieved the anterior chest and neck was prepped and draped in standard surgical fashion. 0.25% Marcaine was injected in the skin and subcutaneous tissue in the left infraclavicular area. The left subclavian vein was then accessed without difficulty using 18 gauge needle. Guidewire was introduced and followed to the level of superior vena cava using direct fluoroscopy. Next the subcutaneous pocket was fashioned in the left lateral chest away from the patient's tattoo using sharp dissection. Next the introducer was placed over the guidewire and advanced to the superior vena cava. Guidewire was then removed and catheter was inserted. Catheter was advanced to the superior vena cava by direct fluoroscopy. The catheter was then tunneled down to the subcutaneous pocket in the left lateral chest. Catheter was attached to the port with a locking device. Port was tested, found have excellent blood return, easy ability to flush. Port was then secured in the subcutaneous tissue using a 2-0 Prolene suture. The port pocket was injected with additional local anesthetic and then closed in two layers using a 4-0 Vicryl. Sterile dressings were applied. The patient was awakened, brought to recovery in stable condition. Chest x-ray will be obtained in recovery room. MD CAROLE Garcia/JOSHUA /3:45 PM /4:07 PM
== END | disposition home or self-care (01) ==
LOC: ESDC 10:56
PROVIDERS: ATTEND Surgery Trauma Surgery
DX: C91.50 Adult T-cell lymphoma/leukemia (HTLV-1-associated) not having achieved remission (principal)
CPT/HCPCS: 00532; 36561; C1788; J0690; J2250; J2405; J3010

== ENCOUNTER 2017-06-05 12:59 | Emergency (ER) | payer BC ==
[~2017-06-05] VITALS: Ht 177.8 cm; Wt 84.1 kg
[~2017-06-05 12:59] MED LIST changes: -MIDAZOLAM HCL 2 MG/2 ML VIAL ONE; -MORP1TAB25 PO; -ONDANSETRON HCL 4 MG/2 ML VIAL IV PUSH ONE; -OXYGENDME NAS.CANULA; -PROPOFOL 500 MG/50 ML BTL IV ONE; -SENN187 PO; -SODIUM CHLORIDE 0.9% INJ 10 ML ONE; -ceFAZolin 2 GM PREMIX 50 ML ONE
[2017-06-05] MEDS ORDERED: GADODIAMIDE PF 287 MG/ML 20 ML VIAL (for RAD MRI) IVCONTRAST ONE (13:00)
[2017-06-05 13:08] VITALS: BP 140/67; PULSE 97; RESP 16; TEMP 97.8; O2SAT 96
[2017-06-05 13:54] LABS: AUTOMATED NEUTROPHIL # 31.9 TH/MM3 (1.8-7.7); BASOPHIL # 0.1 TH/MM3 (0-0.2); BASOPHIL % 0.2 % (0.0-2.0); HEMATOCRIT 35.7 % (39.0-51.0); LYMPH % 0.5 % (9.0-44.0); LYMPHOCYTE # 0.2 TH/MM3 (1.0-4.8); MEAN CELL VOLUME 81.2 FL (80.0-100.0); MEAN CORPUSCULAR HEMOGLOBIN 27.4 PG (27.0-34.0); MEAN CORPUSCULAR HGB CONC 33.7 % (32.0-36.0); MEAN PLATELET VOLUME 7.7 FL (7.0-11.0); MONO % 4.5 % (0.0-8.0); MONOCYTE # 1.5 TH/MM3 (0-0.9); NEUT % 94.8 % (16.0-70.0); PLATELET COUNT 261 TH/MM3 (150-450); RED CELL DISTRIBUTION WIDTH 14.4 % (11.6-17.2); WHITE BLOOD COUNT 33.7 TH/MM3 (4.0-11.0)
[2017-06-05] MEDS ORDERED: SODIUM CHLORIDE 0.9% FLUSH 10 ML FLUSH IVF PRN (14:00)
[2017-06-05 14:07] LABS: PROTHROMBIN TIME - PATIENT 9.8 SEC (9.8-11.6)
[2017-06-05] MEDS ORDERED: MORPHINE SULFATE 2 MG/ML INJ IV PUSH ONE (14:15)
[2017-06-05] MEDS ORDERED: ONDANSETRON HCL 4 MG/2 ML VIAL IV PUSH ONE (14:15)
--- NOTE | 2017-06-05 14:17 | PD ---
HPI Chief Complaint: Back/ Neck Pain or Injury Time Seen by Provider: 13:41 Travel History International Travel<30 days: No Contact w/Intl Traveler<30days: No Traveled to known affect area: No History of Present Illness HPI Patient's a 42-year-old male presenting to the emergency room for evaluation of neck pain and pain at the base of his skull. Patient states it started Saturday, onset with sudden. He states that his pressure-like. Pain as somewhat alleviated when he applies pressure whether by leaning over or manually rolling something behind his neck laying on it. Patient had a lumbar puncture on Saturday in felt well all weekend. He denies any headache, fever, chills, nausea , vomiting, chest pain or shortness of breath. He states the pain as 8 out of 10 reports it as pressure-like. Pain in his somewhat relieved with ibuprofen but not completely. This exacerbated when he has sitting up. Patient has a past medical history significant for T-cell lymphoma. His last chemotherapy treatment was on June [address] Butler[address] [facility] Past Medical History Arthritis: Yes (GROIN AND NECK ) Asthma: Yes Cancer: Yes (t-cell lymphoma) Cardiovascular Problems: Yes Chemotherapy: Yes Hypertension: Yes Implanted Vascular Access Dvce: Yes (Right subclavian port) Past Surgical History AICD: No Body Medical Devices: SHOULDER SURGERY, DISLOCATION MAYBE SCREWS? Joint Replacement: No Pacemaker: No Family History Family Myocardial Infarction: Yes (father, grandfather) Social History Alcohol Use: No Tobacco Use: No Substance Use: No Allergies-Medications (Allergen,Severity, Reaction): Coded Allergies: No Known Allergies (Unverified , 05/08/17) Reported Meds & Prescriptions Reported Meds & Active Scripts Active Reported [no active meds] Review of Systems Except as stated in HPI: all other systems reviewed are Neg General / Constitutional: No: Fever, Chills Eyes: No: Blurred Vision HENT: Positive: Neck Pain, No: Headaches, Lightheadedness Cardiovascular: No: Chest Pain or Discomfort Respiratory: No: Shortness of Breath Gastrointestinal: No: Nausea, Abdominal Pain Musculoskeletal: Positive: Myalgias, Pain Neurologic: No: Weakness, Dizziness, Syncope Physical Exam Narrative GENERAL: Well-developed, well-nourished, alert male. Resting comfortably in no acute distress SKIN: Focused skin assessment warm/dry. HEAD: Atraumatic. Normocephalic. EYES: Pupils equal and round. No scleral icterus. No injection or drainage. ENT: No nasal bleeding or discharge. Mucous membranes pink and moist. NECK: Trachea midline. No JVD. Full range of motion with flexion, extension, rotation. No tenderness or step-off noted to cervical spine. CARDIOVASCULAR: Regular rate and rhythm. No murmur appreciated. RESPIRATORY: No accessory muscle use. Clear to auscultation. Breath sounds equal bilaterally. GASTROINTESTINAL: Abdomen soft, non-tender, nondistended. Hepatic and splenic margins not palpable. MUSCULOSKELETAL: No obvious deformities. No clubbing. No cyanosis. No edema. NEUROLOGICAL: Awake and alert. No obvious cranial nerve deficits. Motor grossly within normal limits. Normal speech. PSYCHIATRIC: Appropriate mood and affect; insight and judgment normal. Data Data Last Documented VS Vital Signs Date Time Temp Pulse Resp B/P (MAP) Pulse Ox O2 Delivery O2 Flow Rate FiO2 06/05/17 13:08 97.8 97 16 140/67 (91) 96 Orders Orders Complete Blood Count With Diff (06/05/17 13:12) Comprehensive Metabolic Panel (06/05/17 13:12) Prothrombin Time / Inr (Pt) (06/05/17 13:12) Act Partial Throm Time (Ptt) (06/05/17 13:12) Ecg Monitoring (06/05/17 13:56) Iv Access Insert/Monitor (06/05/17 13:56) Oximetry (06/05/17 13:56) Oxygen Administration (06/05/17 13:56) Sodium Chloride 0.9% Flush (Ns Flush) (06/05/17 14:00) Ct Brain W/O Iv Contrast(Rout) (06/05/17 ) Morphine Inj (Morphine Inj) (06/05/17 14:15) Ondansetron Inj (Zofran Inj) (06/05/17 14:15) Mri C Spine W&W/O Contrast (06/05/17 ) Mri T Spine W & W/O Contrast (06/05/17 ) Mri L Spine W&W/O Contrast (06/05/17 ) Chest, Single Ap (06/05/17 ) Gadodiamide Pf Inj (Omniscan Pf Inj) (06/05/17 13:00) Ed Discharge Order (06/05/17 18:14) Heparin Central Flush (Heparin Central F (06/05/17 18:15) Labs Laboratory Tests Test 06/05/17 13:20 White Blood Count 33.7 TH/MM3 Red Blood Count 4.40 MIL/MM3 Hemoglobin 12.0 GM/DL Hematocrit 35.7 % Mean Corpuscular Volume 81.2 FL Mean Corpuscular Hemoglobin 27.4 PG Mean Corpuscular Hemoglobin Concent 33.7 % Red Cell Distribution Width 14.4 % Platelet Count 261 TH/MM3 Mean Platelet Volume 7.7 FL Neutrophils (%) (Auto) 94.8 % Lymphocytes (%) (Auto) 0.5 % Monocytes (%) (Auto) 4.5 % Eosinophils (%) (Auto) 0.0 % Basophils (%) (Auto) 0.2 % Neutrophils # (Auto) 31.9 TH/MM3 Lymphocytes # (Auto) 0.2 TH/MM3 Monocytes # (Auto) 1.5 TH/MM3 Eosinophils # (Auto) 0.0 TH/MM3 Basophils # (Auto) 0.1 TH/MM3 CBC Comment AUTO DIFF Differential Total Cells Counted 100 Neutrophils % (Manual) 73 % Band Neutrophils % 24 % Monocytes % 3 % Neutrophils # (Manual) 32.7 TH/MM3 Differential Comment FINAL DIFF MANUAL Platelet Estimate NORMAL Platelet Morphology Comment NORMAL Tear Drop Cells 1+ Ovalocytes 1+ Prothrombin Time 9.8 SEC Prothromb Time International Ratio 1.0 RATIO Activated Partial Thromboplast Time 20.8 SEC Blood Urea Nitrogen 17 MG/DL Creatinine 0.75 MG/DL Random Glucose 134 MG/DL Total Protein 7.2 GM/DL Albumin 3.7 GM/DL Calcium Level 8.9 MG/DL Alkaline Phosphatase 65 U/L Aspartate Amino Transf (AST/SGOT) 15 U/L Alanine Aminotransferase (ALT/SGPT) 90 U/L Total Bilirubin 0.4 MG/DL Sodium Level 140 MEQ/L Potassium Level 3.8 MEQ/L Chloride Level 107 MEQ/L Carbon Dioxide Level 26.3 MEQ/L Anion Gap 7 MEQ/L Estimat Glomerular Filtration Rate 114 ML/MIN [facility] Medical Decision Making Medical Screen Exam Complete: Yes Emergency Medical Condition: Yes Medical Record Reviewed: Yes Interpretation(s) Last Impressions Thoracic Spine MRI 06/05/17 0000 Signed Impressions: Service Date/Time: Monday, June 05, 2017 15:57 - CONCLUSION: Normal examination. Bienvenido Bear MD Lumbar Spine MRI 06/05/17 0000 Signed Impressions: Service Date/Time: Monday, June 05, 2017 15:57 - CONCLUSION: Suspect bilateral L5 pars defects. Grade 1 anterior spondylolisthesis of L5 on S1. No disc herniation or protrusion is identified. Nathan Key MD Head CT 06/05/17 0000 Signed Impressions: Service Date/Time: Monday, June 05, 2017 14:23 - CONCLUSION: Negative noncontrast head CT. No abnormality is identified to explain the pain. Bienvenido Stark MD Chest X-Ray 06/05/17 0000 Signed Impressions: Service Date/Time: Monday, June 05, 2017 14:53 - CONCLUSION: Normal examination. Left subclavian central venous catheter in good position. Nathan Key MD Cervical Spine MRI 06/05/17 0000 Signed Impressions: Service Date/Time: Monday, June 05, 2017 15:57 - CONCLUSION: Normal examination. Bienvenido Bear MD Laboratory Tests Test 06/05/17 13:20 White Blood Count 33.7 TH/MM3 Red Blood Count 4.40 MIL/MM3 Hemoglobin 12.0 GM/DL Hematocrit 35.7 % Mean Corpuscular Volume 81.2 FL Mean Corpuscular Hemoglobin 27.4 PG Mean Corpuscular Hemoglobin Concent 33.7 % Red Cell Distribution Width 14.4 % Platelet Count 261 TH/MM3 Mean Platelet Volume 7.7 FL Neutrophils (%) (Auto) 94.8 % Lymphocytes (%) (Auto) 0.5 % Monocytes (%) (Auto) 4.5 % Eosinophils (%) (Auto) 0.0 % Basophils (%) (Auto) 0.2 % Neutrophils # (Auto) 31.9 TH/MM3 Lymphocytes # (Auto) 0.2 TH/MM3 Monocytes # (Auto) 1.5 TH/MM3 Eosinophils # (Auto) 0.0 TH/MM3 Basophils # (Auto) 0.1 TH/MM3 CBC Comment AUTO DIFF Differential Total Cells Counted 100 Neutrophils % (Manual) 73 % Band Neutrophils % 24 % Monocytes % 3 % Neutrophils # (Manual) 32.7 TH/MM3 Differential Comment FINAL DIFF MANUAL Platelet Estimate NORMAL Platelet Morphology Comment NORMAL Tear Drop Cells 1+ Ovalocytes 1+ Prothrombin Time 9.8 SEC Prothromb Time International Ratio 1.0 RATIO Activated Partial Thromboplast Time 20.8 SEC Blood Urea Nitrogen 17 MG/DL Creatinine 0.75 MG/DL Random Glucose 134 MG/DL Total Protein 7.2 GM/DL Albumin 3.7 GM/DL Calcium Level 8.9 MG/DL Alkaline Phosphatase 65 U/L Aspartate Amino Transf (AST/SGOT) 15 U/L Alanine Aminotransferase (ALT/SGPT) 90 U/L Total Bilirubin 0.4 MG/DL Sodium Level 140 MEQ/L Potassium Level 3.8 MEQ/L Chloride Level 107 MEQ/L Carbon Dioxide Level 26.3 MEQ/L Anion Gap 7 MEQ/L Estimat Glomerular Filtration Rate 114 ML/MIN Vital Signs Date Time Temp Pulse Resp B/P (MAP) Pulse Ox O2 Delivery O2 Flow Rate FiO2 06/05/17 13:08 97.8 97 16 140/67 (91) 96 Differential Diagnosis Epidural abscess versus malignancy versus epidural headache versus muscle strain versus muscle spasm versus other Narrative Course Patient's a 42-year-old male that presented to the emergency room for evaluation of neck pain. Patient's vital signs are stable, labs and imaging ordered and pending. IV access was obtained through patient's subclavian port. Morphine and Zofran ordered for pain. Labs reviewed WBC is elevated at >33 with bandemia. Chemistry with no acute findings. CT of the brain has no acute findings. CXR is normal MRI of the cervical spine is normal MRI of the lumbar spine with suspect bilateral L5 pars defects. Grade 1 anterior spondylolisthesis of L5 on S1. No disc herniation or protrusion is identified. MRI of the thoracic spine is normal. Discussed findings with Dr. Leigh who is covering for Dr. Butler. The WBC count is to be expected after the Neulasta injection on Saturday. She advised to have patient call in the morning and if needed he will be seen. Pt was reassured that pain may be related to intrathecal infusion, arthritis and that there was no acute findings today. Patient was encouraged to utilize pain meds as needed at home. Additionally he was advised to try OTC ibuprofen. He verbalized understanding. Pt is stable for discharge. Diagnosis Primary Impression: Neck pain without injury Additional Impressions: Leukocytosis Qualified Codes: D72.829 - Elevated white blood cell count, unspecified T-cell lymphoma Referrals: Aysha Leigh MD 1 day Patient Instructions: Acute Neck Pain (ED), General Instructions Additional Instructions: Follow-up with Dr. Naqvi in 1 day Continue home medications as prescribed Return to emergency department for any new or worsening symptoms Med/Other Pt SpecificInfo: No Change to Meds Disposition: 01 DISCHARGE HOME Condition: Stable Shelbie Cruz Jun 05, 2017 14:17
[2017-06-05 14:23] LABS: ALBUMIN 3.7 GM/DL (3.4-5.0); ALT (GPT) 90 U/L (12-78); AST (GOT) 15 U/L (15-37); BICARBONATE 26.3 MEQ/L (21.0-32.0); BLOOD UREA NITROGEN 17 MG/DL (7-18); CALCIUM 8.9 MG/DL (8.5-10.1); CHLORIDE 107 MEQ/L (98-107); CREATININE 0.75 MG/DL (0.60-1.30); GLOMERULAR FILTRATION RATE 114 ML/MIN (>89); GLUCOSE,RANDOM 134 MG/DL (74-106); SODIUM (NA) 140 MEQ/L (136-145)
[2017-06-05 14:26] LABS: ALKALINE PHOSPHATASE 65 U/L (45-117); TOTAL BILIRUBIN ADULT 0.4 MG/DL (0.2-1.0); TOTAL PROTEIN 7.2 GM/DL (6.4-8.2)
--- NOTE | 2017-06-05 14:31 | RADRPT ---
EXAM DATE/TIME: 06/05/2017 14:23 [facility] COMPARISON: No previous studies available for comparison. INDICATIONS : Upper neck pain, status post chemo RADIATION DOSE: 41.79 CTDIvol (mGy) MEDICAL HISTORY : Hypertension. t-cell lymphoma SURGICAL HISTORY : None. ENCOUNTER: Initial ACUITY: 1 day PAIN SCALE: 10/10 LOCATION: cranial TECHNIQUE: Multiple contiguous axial images were obtained of the head. Using automated exposure control and adj ustment of the mA and/or kV according to patient size, radiation dose was kept as low as reasonably a chievable to obtain optimal diagnostic quality images. DICOM format image data is available electro nically for review and comparison. FINDINGS: CEREBRUM: The ventricles are normal. No evidence of midline shift, mass lesion, hemorrhage or acute infarction . No extra-axial fluid collections are seen. POSTERIOR FOSSA: The cerebellum and brainstem are intact. The 4th ventricle is midline. The cerebellopontine angle i s unremarkable. EXTRACRANIAL: Visualized sinuses are clear SKULL: The calvaria is intact. No evidence of skull fracture. CONCLUSION: Negative noncontrast head CT. No abnormality is identified to explain the pain. Bienvenido Stark MD on June 05, 2017 at 14:26 Board Certified Radiologist. This report was verified electronically.
[2017-06-05 14:39] LABS: BANDS 24 % (0-6); MONOCYTES 3 % (0-8); NEUTROPHIL # MANUAL DIFF 32.7 TH/MM3 (1.8-7.7); POLYS (SEG NEUTROPHILS) 73 % (16-70)
[2017-06-05 14:40] LABS: OVALOCYTES 1+ (NORMAL); TEARDROP RBCS 1+ (NORMAL)
--- NOTE | 2017-06-05 15:03 | RADRPT ---
EXAM DATE/TIME: 06/05/2017 14:53 [facility] COMPARISON: CHEST SINGLE AP, May 10, 2017, 18:39. INDICATIONS : Pain in neck area. Fever and short of breath for two days. MEDICAL HISTORY : Lymphoma, Asthma SURGICAL HISTORY : ENCOUNTER: Initial ACUITY: 2 days PAIN SCORE: 3/10 LOCATION: Bilateral chest FINDINGS: A single view of the chest demonstrates the lungs to be symmetrically aerated without evidence of mas s, infiltrate or effusion. The cardiomediastinal contours are unremarkable. Osseous structures are intact. CONCLUSION: Normal examination. Left subclavian central venous catheter in good position. Nathan Key MD on June 05, 2017 at 14:58 Board Certified Radiologist. This report was verified electronically.
--- NOTE | 2017-06-05 17:29 | RADRPT ---
EXAM DATE/TIME: 06/05/2017 15:57 [facility] COMPARISON: No previous studies available for comparison. INDICATIONS : <Pain pressure lower back> CONTRAST: <17> cc <Omni scan> IV MEDICAL HISTORY : T-cell lymphoma SURGICAL HISTORY : <Shoulder surgery tunneled port placement and counter> ENCOUNTER: <<Subsequent> ACUITY: <<Acute>> PAIN SCORE: <7/10> LOCATION: Lower back and neck> TECHNIQUE: Multiplanar multisequence MRI of the lumbar spine was performed with and without contrast. FINDINGS: The most caudal appearing lumbar vertebra is numbered as L5. VERTEBRAE: Homogeneous signal. Normal alignment except for some accentuated lordosis at L5-S1. Mild increased d isc desiccation at L4-5 and L5-S1. Suspected bilateral L5 pars defect CONUS: Normal level and configuration. POST CONTRAST: No abnormal areas of contrast enhancement are seen. T12-L1: The thecal sac has a normal diameter. No evidence of disc bulge or protrusion. The neural foramina are patent bilaterally. L1-L2: The thecal sac has a normal diameter. No evidence of disc bulge or protrusion. The neural foramina are patent bilaterally. L2-L3: The thecal sac has a normal diameter. No evidence of disc bulge or protrusion. The neural foramina are patent bilaterally. L3-L4: The thecal sac has a normal diameter. No evidence of disc bulge or protrusion. The neural foramina are patent bilaterally. L4-L5: The thecal sac has a normal diameter. No evidence of disc bulge or protrusion. The neural foramina are patent bilaterally. L5-S1: The thecal sac has a normal diameter. No evidence of disc bulge or protrusion. The neural foramina are patent bilaterally. CONCLUSION: Suspect bilateral L5 pars defects. Grade 1 anterior spondylolisthesis of L5 on S1. No disc herniation or protrusion is identified. Nathan Key MD on June 05, 2017 at 17:23 Board Certified Radiologist. This report was verified electronically.
--- NOTE | 2017-06-05 17:44 | RADRPT ---
EXAM DATE/TIME: 06/05/2017 15:57 [facility] COMPARISON: No previous studies available for comparison. INDICATIONS : Neoplasm. Pain and pressure at the base of the skull. CONTRAST: 17 cc Omniscan (gadodiamide) IV MEDICAL HISTORY : T Cell Lymphoma SURGICAL HISTORY : Shoulder, Chemo port ENCOUNTER: Initial ACUITY: 1 day PAIN SCORE: 6/10 LOCATION: Thoracic TECHNIQUE: Multiplanar multisequence MRI of the thoracic spine was performed. FINDINGS: VERTEBRA: Normal vertebral body height. Homogeneous marrow signal. ALIGNMENT: Normal. CORD: Normal position and configuration. POST CONTRAST: No abnormal areas of contrast enhancement seen. T1-T2: Normal. T2-T3: The thecal sac has a normal diameter. No evidence of disc bulge or protrusion. T3-T4: The thecal sac has a normal diameter. No evidence of disc bulge or protrusion. T4-T5: The thecal sac has a normal diameter. No evidence of disc bulge or protrusion. T5-T6: The thecal sac has a normal diameter. No evidence of disc bulge or protrusion. T6-T7: The thecal sac has a normal diameter. No evidence of disc bulge or protrusion. T7-T8: The thecal sac has a normal diameter. No evidence of disc bulge or protrusion. T8-T9: The thecal sac has a normal diameter. No evidence of disc bulge or protrusion. T9-T10: The thecal sac has a normal diameter. No evidence of disc bulge or protrusion. T10-T11: The thecal sac has a normal diameter. No evidence of disc bulge or protrusion. T11-T12: The thecal sac has a normal diameter. No evidence of disc bulge or protrusion. T12-L1: The thecal sac has a normal diameter. No evidence of disc bulge or protrusion. CONCLUSION: Normal examination. Bienvenido Bear MD on June 05, 2017 at 17:41 Board Certified Radiologist. This report was verified electronically.
--- NOTE | 2017-06-05 17:45 | RADRPT ---
EXAM DATE/TIME: 06/05/2017 15:57 [facility] COMPARISON: No previous studies available for comparison. INDICATIONS : Neoplasm. Base of skull and neck pain. History of T-call lymphoma. CONTRAST: 17 cc Omniscan (gadodiamide) IV MEDICAL HISTORY : Lymphoma. SURGICAL HISTORY : Shoulder surgery. Port placement. ENCOUNTER: Subsequent ACUITY: 2 day PAIN SCORE: 8/10 LOCATION: neck. TECHNIQUE: Multiplanar, multisequence MRI examination of the cervical spine was performed. FINDINGS: VERTEBRAE: Normal vertebral body height. Homogeneous marrow signal. ALIGNMENT: No evidence of subluxation. CORD: Normal configuration and signal. POST FOSSA: The cerebellar tonsils are normal in position. POST-CONTRAST: No abnormal areas of enhancement are seen. C2-C3: The thecal sac has a normal configuration. There is no evidence of disc herniation or spinal canal stenosis. The neural foramina are patent bilaterally. C3-C4: The thecal sac has a normal configuration. There is no evidence of disc herniation or spinal canal s tenosis. The neural foramina are patent bilaterally. C4-C5: The thecal sac has a normal configuration. There is no evidence of disc herniation or spinal canal s tenosis. The neural foramina are patent bilaterally. C5-C6: The thecal sac has a normal configuration. There is no evidence of disc herniation or spinal canal s tenosis. The neural foramina are patent bilaterally. C6-C7: The thecal sac has a normal configuration. There is no evidence of disc herniation or spinal canal s tenosis. The neural foramina are patent bilaterally. C7-T1: The thecal sac has a normal configuration. There is no evidence of disc herniation or spinal canal s tenosis. The neural foramina are patent bilaterally. CONCLUSION: Normal examination. Bienvenido Bear MD on June 05, 2017 at 17:42 Board Certified Radiologist. This report was verified electronically.
[2017-06-05 18:49] VITALS: BP 127/68
== END 2017-06-05 18:49 | disposition home or self-care (01) ==
LOC: NEPC 12:59
DX: M54.2 Cervicalgia (principal); D72.829 Elevated white blood cell count, unspecified; J45.909 Unspecified asthma, uncomplicated; C85.90 Non-Hodgkin lymphoma, unspecified, unspecified site; I10 Essential (primary) hypertension; Z92.21 Personal history of antineoplastic chemotherapy
CPT/HCPCS: 70450; 71045; 72156; 72157; 72158; 80053; 85007; 85027; 85610; 85730; 96374; 96375; 99285; A9579; J1642; J2270; J2405

== ENCOUNTER 2017-06-09 23:49 | Emergency (ER) | payer BC ==
[~2017-06-09] VITALS: Ht 177.8 cm; Wt 90.0 kg
[2017-06-09 23:51] VITALS: BP 123/74; PULSE 80; RESP 18; TEMP 97.4; O2SAT 98
[2017-06-10] MEDS ORDERED: SODIUM CHLORID 0.9% 500 ML INJ 500 ML IV ONE (00:15)
[2017-06-10] MEDS ORDERED: MORPHINE SULFATE 4 MG/ML INJ IV PUSH ONE (00:15)
[2017-06-10 00:37] VITALS: O2SAT 97
[2017-06-10 00:43] LABS: HEMATOCRIT 33.7 % (39.0-51.0); HEMOGLOBIN 11.3 GM/DL (13.0-17.0); MEAN CORPUSCULAR HEMOGLOBIN 27.1 PG (27.0-34.0); MEAN CORPUSCULAR HGB CONC 33.5 % (32.0-36.0); MEAN PLATELET VOLUME 7.5 FL (7.0-11.0); PLATELET COUNT 175 TH/MM3 (150-450); RED BLOOD COUNT 4.16 MIL/MM3 (4.50-5.90); RED CELL DISTRIBUTION WIDTH 14.5 % (11.6-17.2); WHITE BLOOD COUNT 1.4 TH/MM3 (4.0-11.0)
[2017-06-10 00:57] LABS: PROTHROMBIN TIME - PATIENT 10.3 SEC (9.8-11.6)
[2017-06-10 01:09] LABS: ALBUMIN 3.4 GM/DL (3.4-5.0); ALT (GPT) 99 U/L (12-78); BICARBONATE 29.1 MEQ/L (21.0-32.0); BLOOD UREA NITROGEN 26 MG/DL (7-18); CALCIUM 8.8 MG/DL (8.5-10.1); CHLORIDE 104 MEQ/L (98-107); GLUCOSE,RANDOM 125 MG/DL (74-106); LIPASE 302 U/L (73-393); SODIUM (NA) 141 MEQ/L (136-145)
[2017-06-10 01:11] LABS: ALKALINE PHOSPHATASE 74 U/L (45-117); AST (GOT) 26 U/L (15-37); CREATININE 0.92 MG/DL (0.60-1.30); GLOMERULAR FILTRATION RATE 90 ML/MIN (>89); TOTAL BILIRUBIN ADULT 0.3 MG/DL (0.2-1.0); TOTAL PROTEIN 6.6 GM/DL (6.4-8.2)
[2017-06-10 01:19] LABS: BANDS 16 % (0-6); CORRECTED NUCLEATED RBC 1 /100 WBC (0-0); METAMYELOCYTES 5 % (0-1); MONOCYTES 14 % (0-8); MYELOCYTES 1 % (0-0); NEUTROPHIL # MANUAL DIFF 0.8 TH/MM3 (1.8-7.7); NUCLEATED RED BLOOD CELL 1 (0-0); POLYS (SEG NEUTROPHILS) 30 % (16-70); PROMYELOCYTES 2 % (0-0)
[2017-06-10 01:20] LABS: LYMPHOCYTES 32 % (9-44)
--- NOTE | 2017-06-10 01:20 | RADRPT ---
EXAM DATE/TIME: 06/10/2017 00:31 [facility] COMPARISON: CHEST SINGLE AP, June 05, 2017, 14:53. INDICATIONS : Weakness and pain all over MEDICAL HISTORY : Hypertension. T-cell Lymphoma SURGICAL HISTORY : None. ENCOUNTER: Initial ACUITY: 1 day PAIN SCORE: 7/10 LOCATION: Bilateral chest FINDINGS: A single view of the chest demonstrates the lungs to be symmetrically aerated without evidence of mas s, infiltrate or effusion. The cardiomediastinal contours are unremarkable. Osseous structures are intact. Left subclavian catheter tip at the cavoatrial junction. CONCLUSION: The lungs are clear. Abilio Merida MD on June 10, 2017 at 1:18 Board Certified Radiologist. This report was verified electronically.
[2017-06-10 01:21] LABS: DOHLE BODIES PRESENT (NONE SEEN)
[2017-06-10 01:23] LABS: OVALOCYTES 1+ (NORMAL); TOXIC GRANULATION 1+ (NORMAL)
[2017-06-10 01:26] VITALS: BP 119/82; PULSE 77; RESP 20; O2SAT 98
[2017-06-10] MEDS ORDERED: HYDROmorphone HCL PF 1 MG/ML VIAL IVS ONE ×2 (01:45→02:00)
[2017-06-10] MEDS ORDERED: HYDROmorphone HCL PF 2 MG/ML VIAL IV ONE (02:00)
[2017-06-10] MEDS ORDERED: HYDROmorphone HCL PF 2 MG/ML VIAL IV PUSH ONE (02:15)
--- NOTE | 2017-06-10 02:34 | PD ---
HPI Chief Complaint: Pain: Acute or Chronic Time Seen by Provider: 00:07 Travel History International Travel<30 days: No Contact w/Intl Traveler<30days: No Traveled to known affect area: No History of Present Illness HPI PATIENT HAS H/O LYMPHOMA ON CHEMO EVERY 2 WEEKS CYCLE.....TODAY HE PRESENTS C/O BODY ACHES , MORPHINE PO WHICH HE HAS USED IS NOT IMPROVING/RESOLVING PAIN. PATIENT IS HERE FOR BREAKTHORUGH PAIN PFSH Past Medical History Arthritis: Yes (GROIN AND NECK ) Asthma: Yes Cancer: Yes (t-cell lymphoma) Cardiovascular Problems: Yes Chemotherapy: Yes Diminished Hearing: No Hypertension: Yes Implanted Vascular Access Dvce: Yes (Right subclavian port) Musculoskeletal: Yes Respiratory: Yes Immunizations Current: No Past Surgical History AICD: No Body Medical Devices: SHOULDER SURGERY, DISLOCATION MAYBE SCREWS? Joint Replacement: No Pacemaker: No Thoracic Surgery: Yes (port insertion) Family History Family Myocardial Infarction: Yes (father, grandfather) Social History Alcohol Use: No Tobacco Use: No Substance Use: No Allergies-Medications (Allergen,Severity, Reaction): Coded Allergies: No Known Allergies (Unverified , 05/08/17) Reported Meds & Prescriptions Reported Meds & Active Scripts Active Reported [no active meds] Review of Systems Except as stated in HPI: all other systems reviewed are Neg General / Constitutional: No: Fever Eyes: No: Visual changes HENT: No: Headaches Cardiovascular: No: Chest Pain or Discomfort Respiratory: No: Shortness of Breath Gastrointestinal: No: Abdominal Pain Genitourinary: No: Dysuria Musculoskeletal: Positive: Pain Skin: No Rash Neurologic: No: Weakness Psychiatric: No: Depression Endocrine: No: Polydipsia Hematologic/Lymphatic: No: Easy Bruising Physical Exam Narrative GENERAL: SKIN: Warm and dry. HEAD: Atraumatic. Normocephalic. EYES: Pupils equal and round. No scleral icterus. No injection or drainage. ENT: No nasal bleeding or discharge. Mucous membranes pink and moist. NECK: Trachea midline. No JVD. CARDIOVASCULAR: Regular rate and rhythm. RESPIRATORY: No accessory muscle use. Clear to auscultation. Breath sounds equal bilaterally. GASTROINTESTINAL: Abdomen soft, non-tender, nondistended. MUSCULOSKELETAL: Extremities without clubbing, cyanosis, or edema. No obvious deformities. NEUROLOGICAL: Awake and alert. No obvious cranial nerve deficits. Motor grossly within normal limits. Five out of 5 muscle strength in the arms and legs. Normal speech. PSYCHIATRIC: Appropriate mood and affect; insight and judgment normal. Data Data Last Documented VS Vital Signs Date Time Temp Pulse Resp B/P (MAP) Pulse Ox O2 Delivery O2 Flow Rate FiO2 06/10/17 03:07 88 16 104/61 (75) 96 Room Air 06/09/17 23:51 97.4 Orders Orders B-Type Natriuretic Peptide (06/10/17 00:08) Complete Blood Count With Diff (06/10/17 00:08) Comprehensive Metabolic Panel (06/10/17 00:08) Prothrombin Time / Inr (Pt) (06/10/17 00:08) Act Partial Throm Time (Ptt) (06/10/17 00:08) Lipase (06/10/17 00:08) Chest, Single Ap (06/10/17 00:08) Ecg Monitoring (06/10/17 00:08) Bilateral Bp Monitoring (06/10/17 00:08) Iv Access Insert/Monitor (06/10/17 00:08) Oximetry (06/10/17 00:08) Oxygen Administration (06/10/17 00:08) Morphine Inj (Morphine Inj) (06/10/17 00:15) Sodium Chlorid 0.9% 500 Ml Inj (Ns 500 M (06/10/17 00:15) Hydromorphone Pf Inj (Dilaudid Pf Inj) (06/10/17 01:45) Hydromorphone Pf Inj (Dilaudid Pf Inj) (06/10/17 02:00) Hydromorphone Pf Inj (Dilaudid Pf Inj) (06/10/17 02:00) Hydromorphone Pf Inj (Dilaudid Pf Inj) (06/10/17 02:15) Ed Discharge Order (06/10/17 03:10) Heparin Central Flush (Heparin Central F (06/10/17 03:15) Labs Laboratory Tests Test 06/10/17 00:32 White Blood Count 1.4 TH/MM3 Red Blood Count 4.16 MIL/MM3 Hemoglobin 11.3 GM/DL Hematocrit 33.7 % Mean Corpuscular Volume 81.0 FL Mean Corpuscular Hemoglobin 27.1 PG Mean Corpuscular Hemoglobin Concent 33.5 % Red Cell Distribution Width 14.5 % Platelet Count 175 TH/MM3 Mean Platelet Volume 7.5 FL CBC Comment AUTO DIFF Differential Total Cells Counted 100 Neutrophils % (Manual) 30 % Band Neutrophils % 16 % Lymphocytes % 32 % Monocytes % 14 % Neutrophils # (Manual) 0.8 TH/MM3 Metamyelocytes 5 % Myelocytes 1 % Promyelocytes 2 % Nucleated Red Blood Cells 1 /100 WBC Differential Comment FINAL DIFF MANUAL Atypical Lymphocytes % Toxic Granulation 1+ Dohle Bodies PRESENT Platelet Estimate NORMAL Platelet Morphology Comment NORMAL Ovalocytes 1+ Prothrombin Time 10.3 SEC Prothromb Time International Ratio 1.0 RATIO Activated Partial Thromboplast Time 20.2 SEC Blood Urea Nitrogen 26 MG/DL Creatinine 0.92 MG/DL Random Glucose 125 MG/DL Total Protein 6.6 GM/DL Albumin 3.4 GM/DL Calcium Level 8.8 MG/DL Alkaline Phosphatase 74 U/L Aspartate Amino Transf (AST/SGOT) 26 U/L Alanine Aminotransferase (ALT/SGPT) 99 U/L Total Bilirubin 0.3 MG/DL Sodium Level 141 MEQ/L Potassium Level 3.6 MEQ/L Chloride Level 104 MEQ/L Carbon Dioxide Level 29.1 MEQ/L Anion Gap 8 MEQ/L Estimat Glomerular Filtration Rate 90 ML/MIN B-Type Natriuretic Peptide 12 PG/ML Lipase 302 U/L MDM Medical Decision Making Medical Screen Exam Complete: Yes Emergency Medical Condition: Yes Medical Record Reviewed: Yes Narrative Course PATIENT HAS T CELL LYMPHOMA IN ACTIVE CHEMOTHERAPY, AND IS HERE FOR BREAKTHROUGH PAIN...NO E/O PNA, OR UTI CLINICALLY. NO E/O LIVER/GB/ ISSUES AT THIS POINT EITHER. PAIN WAS HYDRATED AND TREATED FOR BREAKTHROUGH PAIN. Diagnosis Primary Impression: BREAKTHROUGH PAIN Patient Instructions: Chronic Pain (DC), General Instructions Disposition: 01 DISCHARGE HOME Condition: Stable Terrance Anderson MD Jun 10, 2017 02:34
[2017-06-10 03:07] VITALS: BP 104/61; PULSE 88; RESP 16; O2SAT 96
== END 2017-06-10 03:31 | disposition home or self-care (01) ==
LOC: NEPE 23:49
DX: R52 Pain, unspecified (principal); M19.90 Unspecified osteoarthritis, unspecified site; J45.909 Unspecified asthma, uncomplicated; I10 Essential (primary) hypertension
CPT/HCPCS: 71045; 80053; 83690; 83880; 85007; 85027; 85610; 85730; 96361; 96374; 96375; 99284; J1170; J1642; J2270; J7040

== ENCOUNTER 2017-08-25 07:03 | Inpatient (IN) | payer BC ==
[~2017-08-25] VITALS: Ht 172.7 cm; Wt 94.0 kg
[2017-08-25] VITALS (10 sets, daily range): BP systolic 121–138; BP diastolic 68–91; PULSE 82–101; RESP 16–26; TEMP 97.9–98.4; O2SAT 93–99
--- NOTE | 2017-08-25 07:19 | PD ---
HPI Chief Complaint: Respiratory Symptoms Time Seen by Provider: 07:18 Travel History International Travel<30 days: No Contact w/Intl Traveler<30days: No Traveled to known affect area: No History of Present Illness HPI 42-year-old male came to the emergency room with history of shortness of breath and chest pain progressively worsening over past 2 weeks. Currently he is quite short of breath just from walking less than 10 feet. Patient has history of non-Hodgkin's lymphoma and is getting chemotherapy. His oncologist is Dr. Leigh. Patient says that his oncologist has started him on antibiotic and steroid. He has done 6 days of levofloxacin. However since the symptoms have not improved he decided to come to the emergency room. Patient says that the symptoms are similar to when he was diagnosed with the lymphoma. His concern is for another mass. Patient also has history of a blood clot in his right upper extremity. He was taken off Eliquis 3 weeks ago. He is complaining of left knee pain that has been bothering him and rates 6 out of 10. Patient says it causes him to limp when he walks. No history of fever or chills. His cough and chest pain worsens upon deep inspiration. Patient occasionally brings out brownish to yellowish color sputum. Vital signs have been stable. [facility] Past Medical History Narrative Medical List of his past medical, surgical, social and family history is reviewed from the nursing note. Arthritis: Yes (GROIN AND NECK ) Asthma: Yes Cancer: Yes (t-cell lymphoma) Cardiovascular Problems: Yes Chemotherapy: Yes (JULY 2017) Diminished Hearing: No Hypertension: Yes Implanted Vascular Access Dvce: Yes (Right subclavian port) Musculoskeletal: Yes Respiratory: Yes Immunizations Current: No Past Surgical History AICD: No Body Medical Devices: SHOULDER SURGERY, DISLOCATION MAYBE SCREWS? Joint Replacement: No Pacemaker: No Thoracic Surgery: Yes (port insertion) Social History Alcohol Use: No Tobacco Use: No Substance Use: No Allergies-Medications (Allergen,Severity, Reaction): Coded Allergies: No Known Allergies (Unverified , 08/25/17) Comments No known drug allergy Reported Meds & Prescriptions Reported Meds & Active Scripts Active Reported Prednisone 2.5 Mg Tab Unknown Dose PO DIRECTED Levofloxacin 500 Mg Tablet 500 Mg PO DAILY Narrative Medication List of his home medications reviewed from the nursing note. Review of Systems Except as stated in HPI: all other systems reviewed are Neg Cardiovascular: Positive: Chest Pain or Discomfort Respiratory: Positive: Cough, Shortness of Breath Musculoskeletal: Positive: Pain Physical Exam Narrative GENERAL: Awake, alert, mild distress SKIN: Focused skin assessment warm/dry. HEAD: Atraumatic. Normocephalic. EYES: Pupils equal and round. No scleral icterus. No injection or drainage. ENT: No nasal bleeding or discharge. Mucous membranes pink and moist. NECK: Trachea midline. No JVD. CARDIOVASCULAR: Regular rate and rhythm. No murmur appreciated. RESPIRATORY: No accessory muscle use. Clear to auscultation. Breath sounds equal bilaterally. GASTROINTESTINAL: Abdomen soft, non-tender, nondistended. Hepatic and splenic margins not palpable. MUSCULOSKELETAL: No obvious deformities. No clubbing. No cyanosis. No edema. NEUROLOGICAL: Awake and alert. No obvious cranial nerve deficits. Motor grossly within normal limits. Normal speech. PSYCHIATRIC: Appropriate mood and affect; insight and judgment normal. Data Data Last Documented VS Vital Signs Date Time Temp Pulse Resp B/P (MAP) Pulse Ox O2 Delivery O2 Flow Rate FiO2 08/25/17 09:05 18 08/25/17 09:00 82 124/74 (91) 94 Room Air 08/25/17 08:03 2.00 08/25/17 07:09 98.3 Orders Orders Electrocardiogram (08/25/17 ) Complete Blood Count With Diff (08/25/17 07:51) Basic Metabolic Panel (Bmp) (08/25/17 07:51) B-Type Natriuretic Peptide (08/25/17 07:51) Prothrombin Time / Inr (Pt) (08/25/17 07:51) Troponin I (08/25/17 07:51) Blood Culture (08/25/17 07:51) Iv Access Insert/Monitor (08/25/17 07:51) Ecg Monitoring (08/25/17 07:51) Oximetry (08/25/17 07:51) Oxygen Administration (08/25/17 07:51) Ct Pulmonary Angiogram (08/25/17 07:51) Sodium Chloride 0.9% Flush (Ns Flush) (08/25/17 08:00) Knee, Complete (4vws) (08/25/17 ) Acetamin-Hydrocod 325-5 Mg ([place] 5-325 (08/25/17 08:00) Morphine Inj (Morphine Inj) (08/25/17 08:15) Iohexol 350 Inj (Omnipaque 350 Inj) (08/25/17 09:40) Ceftriaxone Inj (Rocephin Inj) (08/25/17 09:45) Azithromycin Inj (Zithromax Inj) (08/25/17 09:45) Us Leg Venous Doppler (08/25/17 ) Admit Order (Ed Use Only) (08/25/17 09:54) Labs Laboratory Tests Test 08/25/17 07:55 White Blood Count 8.9 TH/MM3 Red Blood Count 3.85 MIL/MM3 Hemoglobin 10.6 GM/DL Hematocrit 32.7 % Mean Corpuscular Volume 84.9 FL Mean Corpuscular Hemoglobin 27.6 PG Mean Corpuscular Hemoglobin Concent 32.5 % Red Cell Distribution Width 19.4 % Platelet Count 235 TH/MM3 Mean Platelet Volume 7.5 FL Neutrophils (%) (Auto) 88.5 % Lymphocytes (%) (Auto) 2.8 % Monocytes (%) (Auto) 7.9 % Eosinophils (%) (Auto) 0.2 % Basophils (%) (Auto) 0.6 % Neutrophils # (Auto) 7.9 TH/MM3 Lymphocytes # (Auto) 0.3 TH/MM3 Monocytes # (Auto) 0.7 TH/MM3 Eosinophils # (Auto) 0.0 TH/MM3 Basophils # (Auto) 0.1 TH/MM3 CBC Comment AUTO DIFF Differential Total Cells Counted 100 Neutrophils % (Manual) 78 % Band Neutrophils % 11 % Lymphocytes % 4 % Monocytes % 3 % Neutrophils # (Manual) 8.3 TH/MM3 Myelocytes 4 % Differential Comment FINAL DIFF MANUAL Platelet Estimate NORMAL Platelet Morphology Comment NORMAL Polychromasia 2.5 % Tear Drop Cells 1+ Ovalocytes 1+ Prothrombin Time 10.0 SEC Prothromb Time International Ratio 1.0 RATIO Blood Urea Nitrogen 10 MG/DL Creatinine 0.80 MG/DL Random Glucose 95 MG/DL Calcium Level 8.9 MG/DL Sodium Level 140 MEQ/L Potassium Level 3.6 MEQ/L Chloride Level 106 MEQ/L Carbon Dioxide Level 25.9 MEQ/L Anion Gap 8 MEQ/L Estimat Glomerular Filtration Rate 106 ML/MIN Troponin I 0.03 NG/ML B-Type Natriuretic Peptide 49 PG/ML MDM Medical Decision Making Medical Screen Exam Complete: Yes Emergency Medical Condition: Yes Medical Record Reviewed: Yes Interpretation(s) Twelve-lead EKG was reviewed by me. Normal sinus rhythm, normal axis, LVH by voltage criteria, nonspecific ST-T wave changes. Heart rate of 82 bpm. Differential Diagnosis PE, pneumonia, pulmonary edema, pleural effusion Narrative Course 8:59 AM awaiting for the blood test results. CBC has come back which appears to be within normal limits. If renal function is good patient will get CT pulmonary angiogram. Awaiting for knee x-ray to rule out any effusion or any other obvious radiologic abnormalities. Patient has been medicated for pain. 9:36 AM the blood test results are back and within acceptable limits. Patient is not neutropenic. His CAT scan does not show PE but multifocal airspace consolidation that correlates to infectious process like pneumonia at this point. I have ordered IV Rocephin and IV Zithromax. Patient will need to be admitted for outpatient treatment failure. Awaiting for the hospitalist to call back. 9:54 AM the x-ray of the knee was negative. I have ordered an ultrasound of his leg to rule out DVT given his past history. Patient has been admitted to the hospitalist. Patient was informed about his test results and the admission. Procedures EKG Prior to Arrival: No Diagnosis Primary Impression: Multifocal pneumonia Additional Impressions: Failure of outpatient treatment Cough Knee pain, acute Qualified Codes: M25.562 - Pain in left knee Admitting Information Admitting Physician Requests: Tiffanie Joseph MD Aug 25, 2017 07:19
[2017-08-25] MEDS ORDERED: LEVO500T8 PO (07:27)
[2017-08-25] MEDS ORDERED: PRED2.5T PO (07:27)
[2017-08-25] MEDS ORDERED: SODIUM CHLORIDE 0.9% FLUSH 10 ML FLUSH IVF PRN (08:00)
[2017-08-25] MEDS ORDERED: ACETAMINOPHEN/HYDROcodone 325 MG/5 MG TAB PO ONE (08:00)
[2017-08-25] MEDS ORDERED: MORPHINE SULFATE 4 MG/ML INJ IV PUSH ONE (08:15)
[2017-08-25 08:35] LABS: AUTOMATED NEUTROPHIL # 7.9 TH/MM3 (1.8-7.7); BASOPHIL # 0.1 TH/MM3 (0-0.2); BASOPHIL % 0.6 % (0.0-2.0); EOSINOPHIL % 0.2 % (0.0-4.0); HEMATOCRIT 32.7 % (39.0-51.0); HEMOGLOBIN 10.6 GM/DL (13.0-17.0); LYMPH % 2.8 % (9.0-44.0); LYMPHOCYTE # 0.3 TH/MM3 (1.0-4.8); MEAN CELL VOLUME 84.9 FL (80.0-100.0); MEAN CORPUSCULAR HEMOGLOBIN 27.6 PG (27.0-34.0); MEAN CORPUSCULAR HGB CONC 32.5 % (32.0-36.0); MEAN PLATELET VOLUME 7.5 FL (7.0-11.0); MONO % 7.9 % (0.0-8.0); MONOCYTE # 0.7 TH/MM3 (0-0.9); NEUT % 88.5 % (16.0-70.0); PLATELET COUNT 235 TH/MM3 (150-450); RED BLOOD COUNT 3.85 MIL/MM3 (4.50-5.90); RED CELL DISTRIBUTION WIDTH 19.4 % (11.6-17.2); WHITE BLOOD COUNT 8.9 TH/MM3 (4.0-11.0)
[2017-08-25 08:58] LABS: BICARBONATE 25.9 MEQ/L (21.0-32.0); CALCIUM 8.9 MG/DL (8.5-10.1); CREATININE 0.8 MG/DL (0.60-1.30)
[2017-08-25 09:02] LABS: TROPONIN I 0.03 NG/ML (0.02-0.05)
[2017-08-25 09:17] LABS: BANDS 11 % (0-6); LYMPHOCYTES 4 % (9-44); MONOCYTES 3 % (0-8); MYELOCYTES 4 % (0-0); NEUTROPHIL # MANUAL DIFF 8.3 TH/MM3 (1.8-7.7); POLYS (SEG NEUTROPHILS) 78 % (16-70)
[2017-08-25 09:18] LABS: OVALOCYTES 1+ (NORMAL); TEARDROP RBCS 1+ (NORMAL)
[2017-08-25 09:19] LABS: POLYCHROMASIA 2.5 % (0.0-1.9)
--- NOTE | 2017-08-25 09:33 | RADRPT ---
EXAM DATE/TIME: 08/25/2017 09:13 [facility] COMPARISON: CT PULMONARY ANGIOGRAM, May 08, 2017, 5:26. INDICATIONS : Shortness of breath. IV CONTRAST: 78 cc Omnipaque 350 (iohexol) IV RADIATION DOSE: 18.80 CTDIvol (mGy) MEDICAL HISTORY : Lymphoma. Hypertension. SURGICAL HISTORY : right shoulder surgery, bone marrow transplant ENCOUNTER: Initial ACUITY: 1 day PAIN SCALE: 0/10 LOCATION: Bilateral chest TECHNIQUE: Volumetric scanning of the chest was performed using a pulmonary embolism protocol MIP images were re constructed. Using automated exposure control and adjustment of the mA and/or kV according to patien t size, radiation dose was kept as low as reasonably achievable to obtain optimal diagnostic quality images. DICOM format image data is available electronically for review and comparison. Follow-up recommendations for detected pulmonary nodules are based at a minimum on nodule size and pa tient risk factors according to Fleischner Society Guidelines. FINDINGS: PULMONARY ARTERIES: No filling defects are seen in the pulmonary arteries through the segmental level. LUNGS: There is mild volume loss identified in the right hemithorax. There is multifocal airspace consolidat ion involving the right upper lobe and to a lesser extent the right lower lobe. Patchy areas of airsp john consolidation are also seen within the anterior medial aspect of the left upper lung. PLEURAE: There is no pleural thickening or pleural effusion. MEDIASTINUM: There has been significant decrease in size of the anterior mediastinal mass previously measuring 11 cm x 10.8 cm and now measuring 1.2 x 2.2 cm there size is normal. No evidence of MUSCULOSKELETAL: Within normal limits for patient age. MISCELLANEOUS: The visualized upper abdominal organs demonstrate no acute abnormality. CONCLUSION: No evidence of PE. Multifocal airspace consolidation identified throughout the right hemithorax and w ithin the anteromedial aspect of the left upper lobe. Findings are consistent with an acute infectiou s process such as multifocal pneumonia.. Rin Velasquez MD on August 25, 2017 at 9:27 Board Certified Radiologist. This report was verified electronically.
[2017-08-25] MEDS ORDERED: IOHEXOL 350 MG/ML 10 ML VIAL (for RAD DIAG) IVCONTRAST ONE (09:40)
--- NOTE | 2017-08-25 09:43 | RADRPT ---
EXAM DATE/TIME: 08/25/2017 09:31 [facility] COMPARISON: No previous studies available for comparison. INDICATIONS : Left knee pain. No known injury. MEDICAL HISTORY : Hypertension. T-cell Lymphoma SURGICAL HISTORY : None. ENCOUNTER: Initial ACUITY: 1 week PAIN SCORE: 7/10 LOCATION: Left knee. FINDINGS: Four view examination of the left knee demonstrates no evidence of fracture or dislocation. Bony min eralization is normal. The articular surfaces are intact. The suprapatellar soft tissues have a nor mal configuration. CONCLUSION: Unremarkable examination of the left knee. Rin Velasquez MD on August 25, 2017 at 9:41 Board Certified Radiologist. This report was verified electronically.
[2017-08-25] MEDS ORDERED: AZITHROMYCIN INJ 500 MG in SODIUM CHLOR 0.9% 250 ML INJ 250 ML IV ONE (09:45)
[2017-08-25] MEDS ORDERED: cefTRIAXone INJ 1,000 MG in SODIUM CHLORIDE 0.9% INJ 100 ML IV ONE (09:45)
[2017-08-25] MEDS ORDERED: ONDANSETRON HCL 4 MG/2 ML VIAL IVP PRN (10:00)
[2017-08-25] MEDS ORDERED: NALOXONE HCL 0.4 MG/ML AMP IV PUSH PRN (10:00)
[2017-08-25] MEDS ORDERED: ACETAMINOPHEN/HYDROcodone 325 MG/5 MG TAB PO PRN (10:00)
[2017-08-25] MEDS ORDERED: ACETAMINOPHEN/HYDROcodone 325 MG/10 MG TAB PO PRN (10:00)
[2017-08-25] MEDS ORDERED: MAGNESIUM HYDROXIDE SUSP 30 ML CUP PO PRN ×2 (10:00→15:15)
[2017-08-25] MEDS ORDERED: SODIUM CHLORIDE 0.9% FLUSH 10 ML FLUSH IV FLUSH PRN (10:00)
--- NOTE | 2017-08-25 10:18 | RADRPT ---
EXAM DATE/TIME: 08/25/2017 09:53 [facility] COMPARISON: No previous studies available for comparison. INDICATIONS : Left leg pain. MEDICAL HISTORY : Hypercholesterolemia. Hypertension. Asthma. Pneumonia. Arthritis. Herniated discs. T-cell lymphom a. Chemotherapy. SURGICAL HISTORY : Left chest port. Right shoulder surgery. Bone marrow biopsy. ENCOUNTER: Initial ACUITY: 1 week PAIN SCORE: 3/10 LOCATION: Left leg. TECHNIQUE: Venous ultrasound of the leg was performed from the inguinal ligament to the proximal calf. Real-javier e, color Doppler and spectral tracing, compression and augmentation techniques were used. FINDINGS: There is normal compressibility of the deep venous system from the inguinal region to the proximal ca lf. No echogenic clot is seen in the lumen of the common femoral, femoral, popliteal, and posterior tibial veins. There is a normal response of the venous system to proximal and distal augmentation an d respiration. CONCLUSION: Normal examination. Rin Velasquez MD on August 25, 2017 at 10:15 Board Certified Radiologist. This report was verified electronically.
[2017-08-25] MEDS: LACTOBACILLUS ACIDOPHILUS TAB PO SCH ×2 (13:17→18:47)
--- NOTE | 2017-08-25 14:27 | HHI.HP ---
[facility] Primary Care Physician Bienvenido Guzman M.D. Admission Diagnosis Multifocal pneumonia, outpatient treatment failure Diagnoses: (1) Multifocal pneumonia Diagnosis: Principal (2) Failure of outpatient treatment Diagnosis: Principal (3) T-cell lymphoma Diagnosis: Secondary Travel History International Travel<30 Days: No Contact w/Intl Traveler <30 Da: No Traveled to Known Affected Are: No History of Present Illness Mr. Turner is a 42-year-old male. He has T-cell lymphoma at baseline. Intermittent treatment for this. As an outpatient he's been having a cough for about 2 weeks. He was treated with Levaquin for the past 6 days. He comes in today due to no improvement in his cough, he's actually been getting worse through time. Imaging shows bilateral consolidation suggestive of pneumonia, most significant in the right lung. No leukocytosis or fever, but patient is on active chemotherapy and this could cause suppression of both of these findings. Pattern of pneumonia on CT is concerning for an atypical infection. His immunocompromise status opens his risk for atypical infections. Fever and chills have occurred at home. He also has a complaint of left knee pain. Review of Systems Constitutional: COMPLAINS OF: Fatigue, Fever, Chills Eyes: DENIES: Diplopia, Eye inflammation, Eye pain Ears, nose, mouth, throat: DENIES: Hearing loss, Vertigo, Nasal discharge Respiratory: COMPLAINS OF: Cough, Sputum production, Shortness of breath, DENIES: Wheezing Cardiovascular: DENIES: Chest pain, Palpitations, Syncope Gastrointestinal: DENIES: Abdominal pain, Black stools, Bloody stools Musculoskeletal: COMPLAINS OF: Joint pain, Joint Swelling, DENIES: Muscle aches , Stiffness Integumentary: DENIES: Abnormal pigmentation, Nail changes, Pruritus, Rash Hematologic/lymphatic: DENIES: Bruising, Lymphadenopathy Immunologic/allergic: DENIES: Eczema, Urticaria Neurologic: DENIES: Abnormal gait, Headache, Paresthesias Psychiatric: DENIES: Anxiety, Confusion, Hallucinations Past Family Social History Past Medical History Asthma T-cell lymphoma Past Surgical History Port placement Reported Medications Reported Meds & Active Scripts Active Reported Prednisone 2.5 Mg Tab Unknown Dose PO DIRECTED Levofloxacin 500 Mg Tablet 500 Mg PO DAILY Allergies: Coded Allergies: No Known Allergies (Unverified , 08/25/17) Active Ordered Medications Administered Medications Medications (Trade) Dose Ordered Sig/Suzan Route PRN Reason Start Time Stop Time Status Last Admin Dose Admin Sodium Chloride (NS Flush) 2 ml UNSCH PRN IV FLUSH FLUSH AFTER USING IV ACCESS 08/25/17 10:00 08/25/17 11:45 Lactobacillus Acidophilus (Lactinex) 1 tab TID PO 08/25/17 13:00 08/25/17 13:17 Family History Father and grandfather of heart attack Social History Denies alcohol use Denies tobacco use Denies illicit drug use Physical Exam Vital Signs Vital Signs Date Time Temp Pulse Resp B/P (MAP) Pulse Ox O2 Delivery O2 Flow Rate FiO2 08/25/17 13:00 98.2 93 16 123/85 (98) 94 08/25/17 12:26 08/25/17 12:00 96 24 123/68 (86) 94 Room Air 08/25/17 11:53 94 22 125/82 (96) 95 Room Air 08/25/17 09:05 18 08/25/17 09:00 82 20 124/74 (91) 94 Room Air 08/25/17 08:03 94 Room Air 08/25/17 08:03 Nasal Cannula 2.00 08/25/17 08:00 88 22 129/91 (104) 94 Room Air 08/25/17 07:23 90 26 127/76 (93) 94 Room Air 08/25/17 07:09 98.3 97 22 131/89 (103) 94 Physical Exam GENERAL: NAD, A&Ox3 HEAD: Normocephalic. NECK: Supple, trachea midline. No lymphadenopathy. EYES: No scleral icterus. No injection or drainage. CARDIOVASCULAR: Regular rate and rhythm without murmurs, gallops, or rubs. RESPIRATORY: Breath sounds equal bilaterally. No accessory muscle use. Bilateral rhonchi, greater on the right side. GASTROINTESTINAL: Abdomen soft, non-tender, nondistended. MUSCULOSKELETAL: No cyanosis, or edema. Left knee pain with range of motion. SKIN: Warm and dry. NEURO: No focal neurological deficitis. Laboratory Laboratory Tests Test 08/25/17 07:55 White Blood Count 8.9 Red Blood Count 3.85 Hemoglobin 10.6 Hematocrit 32.7 Mean Corpuscular Volume 84.9 Mean Corpuscular Hemoglobin 27.6 Mean Corpuscular Hemoglobin Concent 32.5 Red Cell Distribution Width 19.4 Platelet Count 235 Mean Platelet Volume 7.5 Neutrophils (%) (Auto) 88.5 Lymphocytes (%) (Auto) 2.8 Monocytes (%) (Auto) 7.9 Eosinophils (%) (Auto) 0.2 Basophils (%) (Auto) 0.6 Neutrophils # (Auto) 7.9 Lymphocytes # (Auto) 0.3 Monocytes # (Auto) 0.7 Eosinophils # (Auto) 0.0 Basophils # (Auto) 0.1 CBC Comment AUTO DIFF Differential Total Cells Counted 100 Neutrophils % (Manual) 78 Band Neutrophils % 11 Lymphocytes % 4 Monocytes % 3 Neutrophils # (Manual) 8.3 Myelocytes 4 Differential Comment FINAL DIFF MANUAL Platelet Estimate NORMAL Platelet Morphology Comment NORMAL Polychromasia 2.5 Tear Drop Cells 1+ Ovalocytes 1+ Prothrombin Time 10.0 Prothromb Time International Ratio 1.0 Blood Urea Nitrogen 10 Creatinine 0.80 Random Glucose 95 Calcium Level 8.9 Sodium Level 140 Potassium Level 3.6 Chloride Level 106 Carbon Dioxide Level 25.9 Anion Gap 8 Estimat Glomerular Filtration Rate 106 Troponin I 0.03 B-Type Natriuretic Peptide 49 Date/Time Source Procedure Growth Status 08/25/17 08:00 Blood Peripheral Aerobic Blood Culture Pending Received 08/25/17 08:00 Blood Peripheral Anaerobic Blood Culture Pending Received Result Diagram: 08/25/17 0755 08/25/17 [address] Angiography 08/25/17 0751 Signed Impressions: Service Date/Time: Friday, August 25, 2017 09:13 - CONCLUSION: No evidence of PE. Multifocal airspace consolidation identified throughout the right hemithorax and within the anteromedial aspect of the left upper lobe. Findings are consistent with an acute infectious process such as multifocal pneumonia.. Rin Velasquez MD Lower Extremity Ultrasound 08/25/17 0000 Signed Impressions: Service Date/Time: Friday, August 25, 2017 09:53 - CONCLUSION: Normal examination. Rin Velasquez MD Knee X-Ray 08/25/17 0000 Signed Impressions: Service Date/Time: Friday, August 25, 2017 09:31 - CONCLUSION: Unremarkable examination of the left knee. MD Alyssia Ceja VTE Risk Assessment Caprini VTE Risk Assessment: Mod/High Risk (score >= 2) Caprini Risk Assessment Model Point Value = 1 Point Value = 2 Point Value = 3 Point Value = 5 Age 41-60 Minor surgery BMI > 25 kg/m2 Swollen legs Varicose veins or History of unexplained or recurrent spontaneous Oral contraceptives or hormone replacement Sepsis (< 1 month) Serious lung disease, including pneumonia (< 1 month) Abnormal pulmonary function Acute myocardial infarction Congestive heart failure (< 1 month) History of inflammatory bowel disease Medical patient at bed rest Age 61-74 Arthroscopic surgery Major open surgery (> 45 min) Laparoscopic surgery (> 45 min) Malignancy Confined to bed (> 72 hours) Immobilizing plaster cast Central venous access Age >= 75 History of VTE Family history of VTE Factor V Leiden Prothrombin [id number] Lupus anticoagulant Anticardiolipin antibodies Elevated serum homocysteine Heparin-induced thrombocytopenia Other congenital or acquired thrombophilia Stroke (< 1 month) Elective arthroplasty Hip, pelvis, or leg fracture Acute spinal cord injury (< 1 month) Prophylaxis Regimen Total Risk Factor Score Risk Level Prophylaxis Regimen 0-1 Low Early ambulation 2 Moderate Order ONE of the following: *Sequential Compression Device (SCD) *Heparin 5000 units SQ BID 3-4 Higher Order ONE of the following medications: *Heparin 5000 units SQ TID *Enoxaparin/Lovenox 40 mg SQ daily (WT < 150 kg, CrCl > 30 mL/min) *Enoxaparin/Lovenox 30 mg SQ daily (WT < 150 kg, CrCl > 10-29 mL/min) *Enoxaparin/Lovenox 30 mg SQ BID (WT < 150 kg, CrCl > 30 mL/min) AND/OR *Sequential Compression Device (SCD) 5 or more Highest Order ONE of the following medications: *Heparin 5000 units SQ TID (Preferred with Epidurals) *Enoxaparin/Lovenox 40 mg SQ daily (WT < 150 kg, CrCl > 30 mL/min) *Enoxaparin/Lovenox 30 mg SQ daily (WT < 150 kg, CrCl > 10-29 mL/min) *Enoxaparin/Lovenox 30 mg SQ BID (WT < 150 kg, CrCl > 30 mL/min) AND *Sequential Compression Device (SCD) Assessment and Plan Problem List: (1) T-cell lymphoma ICD Code: C85.90 - Non-Hodgkin lymphoma, unspecified, unspecified site (2) Multifocal pneumonia ICD Code: J18.9 - Pneumonia, unspecified organism Status: Acute (3) Failure of outpatient treatment ICD Code: Z78.9 - Other specified health status Status: Acute (4) Cough ICD Code: R05 - Cough Status: Acute Assessment and Plan 42-year-old male admitted secondary to pneumonia with outpatient treatment failure Multifocal bilateral pneumonia Outpatient treatment failure Atypical pattern Patient failed Levaquin as an outpatient Change treatment to Rocephin and azithromycin Begin vancomycin Begin Diflucan Consult infectious disease Consult pulmonology Follow CBC Follow clinical status is CBC findings may be underrepresented Monitor blood cultures Morphine for pain Systemic steroids Follow blood cultures Sputum culture Echocardiogram to evaluate for infective endocarditis Left knee pain Antibiotic coverage as above Etiology is suspected to be reactive Hollow clinically for now Lymphoma Immunocompromise Oncology consulted Monitor for improvement in pneumonia due to increased risk in the setting of lymphoma with immunocompromise Follow CBC Asthma No current exacerbation As needed albuterol Monitor for exacerbations DVT prophylaxis SCDs Lovenox Physician Certification 2 Midnight Certification Type: Admission for Inpatient Services Order for Inpatient Services The services are ordered in accordance with Medicare regulations or non- Medicare payer requirements, as applicable. In the case of services not specified as inpatient-only, they are appropriately provided as inpatient services in accordance with the 2-midnight benchmark. Estimated LOS (days): 3 days is the estimated time the patient will need to remain in the hospital, assuming treatment plan goals are met and no additional complications. Post-Hospital Plan: Home Cory Fox MD Aug 25, 2017 14:27
[2017-08-25] MEDS: MORPHINE SULFATE 4 MG/ML INJ IV PUSH SCH ×3 (15:00→23:33)
[2017-08-25] MEDS ORDERED: MORPHINE SULFATE 4 MG/ML INJ IV PUSH PRN (15:00)
[2017-08-25] MEDS ORDERED: Vancomycin Consult Pharmacy 1 EA OTHER PRN (15:15)
[2017-08-25] MEDS ORDERED: RESP: ALBUTEROL 2.5 MG/IPRATROPIUM 0.5 MG NEB (PRN) NEB (15:15)
[2017-08-25] MEDS ORDERED: methylPREDNISolone SOD SUCC 40 MG/1 ML VIAL IV PUSH ONE (15:15)
[2017-08-25] MEDS: ENOXAPARIN SODIUM 40 MG/0.4 ML SYRINGE SQ SCH (15:50)
--- NOTE | 2017-08-25 15:50 | MB ---
cc: Aysha Leigh MD,Tiffanie Urrutia MD DATE: 08/25/2017 REFERRING PHYSICIAN: Dr. Tiffanie Shukla. CHIEF COMPLAINT: Dr. Shukla requests a consultation for Mr. Turner with history of T-cell lymphoma and new right lung community-acquired pneumonia. HISTORY OF PRESENT ILLNESS: Mr. Turner is a well known, 42-year-old man with history of asthma, on presentation, a right-sided chest pain and moderate pleural effusion. He was diagnosed with a T-cell lymphoblastic lymphoma, who has responded to CHOP chemotherapy. He went into remission and CT PET scan from 06/2017 was clear. He continued on CHOP chemotherapy. Over the past week, he has had increasing shortness of breath and cough. He was managed at an urgent care center in [place]. He reports having trouble contacting our office. He had progressive symptoms and finally came into the hospital. In the emergency room, he was noted to have anemia with hemoglobin of 10.6. His white count was 8.9. He is lymphopenic with absolute neutrophil count of 7000. Chemistry is normal. Beta natriuretic peptide is normal. Imaging studies included CT angiogram of the chest, shows no evidence of pulmonary embolism, but he had multifocal airspace consolidation identified throughout the right hemithorax within the anterior medial aspect of the left upper lung. This appears to have the appearance of acute infectious process. He was started promptly on antibiotic therapy with ceftriaxone and azithromycin. He required morphine for air hunger. He complains of left knee pain. He had fevers earlier on in his course. He was treated with Levaquin and steroids by the urgent care physician. He had persistent knee pain and peripheral neuropathy symptoms in his left foot more prominently. He denies any urinary complaints. He is constipated. His last bowel movement was several days ago. He denies any nausea or vomiting. No headaches. His main symptom is the shortness of breath. The respiratory treatments for his asthma were not working to improve his airway breathing. PAST MEDICAL HISTORY: 1. T-cell lymphoblastic lymphoma. 2. Asthma. 3. History of herniated disk. 4. History of pneumonia. PAST SURGICAL HISTORY: Port placement, thoracentesis, CT-guided biopsy of mediastinal mass. ALLERGIES: NO KNOWN DRUG ALLERGIES. FAMILY HISTORY: Significant for mother is alive. No other family history of cancer. SOCIAL HISTORY: He is , lives with his and children. He has never smoked. Denies any alcohol or illicit drug use. 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 MEDICATIONS: Include azithromycin, ceftriaxone, morphine sulfate. PHYSICAL EXAMINATION: VITAL SIGNS: Temperature 98.2, heart rate 93, respiratory rate 16, blood pressure 123/85, saturation 94%. GENERAL: Mr. Turner is a well-developed, well-nourished man with alopecia. Looks anxious and frustrated. HEENT: His pupils are round, reactive to light and accommodation. Oropharynx is dry. NECK: Supple. LUNGS: Significant for crackles and diminished breath sounds in the right lung field. CARDIOVASCULAR: Reveals tachycardia. ABDOMEN: Benign. LOWER EXTREMITIES: With no swelling. Left knee appears to be benign. NEUROLOGIC: Nonfocal. LABORATORY DATA: As described above. Chemotherapy-induced anemia. ASSESSMENT AND PLAN: Mr. Turner is a 42-year-old man with history of asthma, diagnosed with a T-cell lymphoblastic lymphoma responding to CHOP chemotherapy. He presents with increasing shortness of breath and no response to antibiotic therapy on an outpatient basis. He has an infiltrate of the right lung consistent with inflammatory infectious process. Discussed with Mr. Turner along with Dr. Fox the concern for atypical infection, possibly even fungal. Pulmonary was consulted. He is well known to Dr. Aleman to coordinate bronchoscopic evaluation and bronchial washing to determine etiology of the infection that is presumed. Blood culture obtained. There are negative so far. He is afebrile. We will schedule his morphine for air hunger and shortness of breath. A bowel regimen will be in place. For now treatment for his T-cell lymphoblastic lymphoma with CHOP is placed on hold. He was due for his next cycle next week. We need to complete treatment of possible infectious etiology in the right lung causing him severe symptoms on presentation. His questions were answered to his satisfaction. MD ANURAG Viera/MAR , 03:12 PM , 03:49 PM
[2017-08-25] MEDS: FLUCONAZOLE 400 MG PREMIX BAG 200 ML IV SCH (15:51)
[2017-08-25] MEDS ORDERED: VANCOMYCIN INJ 1,000 MG in SODIUM CHLOR 0.9% 250 ML INJ 250 ML IV SCH (16:00)
--- NOTE | 2017-08-25 16:56 | MB ---
cc: Francis Aleman MD DATE: 08/25/2017 REQUESTING PHYSICIAN: Aysha Leigh MD REASON FOR CONSULTATION: Lung infiltrates and need for bronchoscopy. HISTORY OF PRESENT ILLNESS: Mr. Turner is a 42-year-old male with a history of bronchial asthma, pleural effusion, T-cell lymphoma. He was taking CHOP treatment and he is tolerating it well. The patient was not feeling well for the last 2 weeks. He had a fever and chills 1 time, then he got better. He was not getting better, cough and congestion, chest discomfort and increasing shortness of breath with this symptom. He went to urgent care center, was given antibiotic and steroids. He did not get better and decided to come to the [facility]. LABORATORY AND DIAGNOSTIC DATA: He had a workup, and he had a CTA of the chest done. It does not show any pulmonary embolism. It shows that he has multifocal airspace consolidation throughout the right hemithorax and the anterior medial aspect of the left upper lobe, possible infectious inflammatory process of multifocal pneumonia. His CBC showed WBC count 8.9, hemoglobin 10.6, hematocrit 32.7, MCV 84, platelet count 235. His sodium 140, potassium 3.6, chloride 106, CO2 of 25, BUN 10, creatinine 0.80. His INR is 1. PAST MEDICAL HISTORY: Significant for history of bronchial asthma, T-cell lymphoma, pleural effusion. MEDICATIONS: He is currently taking Zithromax 500 mg, Rocephin 1 g a day, Solu-Medrol 40 mg q. 12 hours, vancomycin 2 g q. 12 hours, Diflucan 200 mg a day, Lovenox 40 mg a day, Xanax 0.25 mg q. 6 hours, albuterol, Atrovent nebulizer treatment. ALLERGIES: NO KNOWN DRUG ALLERGIES. SOCIAL HISTORY: He is , does not work anymore. 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 FAMILY HISTORY: . He has 3 daughters. Father at age 46 with a heart attack and brother and sisters are healthy. REVIEW OF SYSTEMS: Denies any significant weight loss. No hemoptysis. Has some mild chest pain. No DVT, pulmonary embolus. PHYSICAL EXAMINATION: GENERAL: Well-developed, well-nourished but not in any acute distress. VITAL SIGNS: Blood pressure 123/85, heart rate 93, respirations 16, temperature 98.2. HEENT: Pupils are equal and reactive to light. Oral mucosa and nasal mucosa normal. CHEST: Air entry equal bilat. rales rt chest. CARDIOVASCULAR: Normal. ABDOMEN: Soft, nontender. Bowel sounds are present. EXTREMITIES: No edema. IMPRESSION: 1. Extensive bilateral infiltrates, more on the right lung than on the left. Need to rule out community-acquired pneumonia or other opportunistic infection. 2. T-cell lymphoma. He is on CHOP chemotherapy. 3. Bronchial asthma. PLAN: I discussed with the patient. He will continue the antibiotic as per ID recommendation. I will schedule him for bronchoscopy. I explained to him procedure and the complications, including complication of anesthesia, pneumothorax requiring chest tube, bleeding complication, injury to the blood vessel, lungs, nose, arrhythmia, hypoxia. He understands well and wants to proceed. He will be scheduled for bronchoscopy. Further treatment will depend on the course in the hospital. Thank you, Dr. Leigh, for this consult. MD MAMIE Chavira/SOLANGE , 04:34 PM , 04:55 PM [facility]
[2017-08-25 16:58] LABS: IMMUNOGLOBULIN A 159 MG/DL (87-481); IMMUNOGLOBULIN G 692 MG/DL (660-1620)
[2017-08-25] MEDS: VANCOMYCIN INJ 2,000 MG in SODIUM CHLORID 0.9% 500 ML INJ 500 ML IV SCH (17:07)
--- NOTE | 2017-08-25 17:15 | PD.ID.CON ---
History of Present Illness Service ID Consult Requested By Dr. Fox Reason for Consult Evaluation and Mment of Pneumonia in an IC patient. Primary Care Physician Bienvenido Guzman M.D. Diagnoses: History of Present Illness Mr. 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 He reports he underwent 6 sessions of chemotherapy and Radiation therapy so far. He went into remission and CT PET scan from 06/2017 was clear. He follows with of Oncology. He continued on [facility] chemotherapy. Over the past week, he has had increasing shortness of breath and cough. He was managed at an urgent care center in [place]. He reports having trouble contacting office and due to worsening symptoms despite antibiotics he decided to come to the hospital. In the emergency department [facility] he was noted to have white count of 8.9, hemoglobin of 10.6 his chemistry was normal and his BNP was reportedly normal. Due to his history of being immune compromised due to his cancer therapy patient underwent a sepsis workup including blood cultures and a CT scan. The CT scan shows bilateral multifocal pneumonia but no evidence of PE. Patient was started on empiric antibiotics and infectious disease consulted for management of pneumonia in an immunocompromised patient who has failed oral antibiotics. Pulmonology has been consulted and Dr. Aleman will see the patient and schedule him for bronchoscopy in a.m. Patient was started on empiric ceftriaxone and azithromycin patient reports subjective fevers as well as left knee pain. Patient reports that he has tried Levaquin and steroids by the urgent care with notch much response. Patient reports persistent knee pain as well as peripheral neuropathy symptoms in his left foot more prominently. He denies any urinary complaints he denies any bowel bladder complaints. He denies any headaches. Review of Systems Constitutional: DENIES: Diaphoretic episodes, Fatigue, Fever, Weight gain, Weight loss, Chills, Dizziness, Change in appetite, Night Sweats Endocrine: DENIES: Heat/cold intolerance, Polydipsia, Polyuria, Polyphagia Eyes: DENIES: Blurred vision, Diplopia, Eye inflammation, Eye pain, Vision loss , Photosensitivity, Double Vision Ears, nose, mouth, throat: DENIES: Tinnitus, Hearing loss, Vertigo, Nasal discharge, Oral lesions, Throat pain, Hoarseness, Ear Pain, Running Nose, Epistaxis, Sinus Pain, Toothache, Odynophagia Respiratory: COMPLAINS OF: Cough, Wheezing, Shortness of breath, DENIES: Apneas , Snoring, Hemoptysis, Sputum production Cardiovascular: COMPLAINS OF: Chest pain, DENIES: Palpitations, Syncope, Dyspnea on Exertion, PND, Lower Extremity Edema, Orthopnea, Claudication Gastrointestinal: DENIES: Abdominal pain, Black stools, Bloody stools, Constipation, Diarrhea, Nausea, Vomiting, Difficulty Swallowing, Anorexia Genitourinary: DENIES: Sexual dysfunction, Urinary frequency, Urinary incontinence, Urgency, Hematuria, Dysuria, Nocturia, Penile Discharge, Testicular Pain, Testicular Swelling Musculoskeletal: COMPLAINS OF: Joint pain, DENIES: Muscle aches, Stiffness, Joint Swelling, Back pain, Neck pain Integumentary: DENIES: Abnormal pigmentation, Nail changes, Pruritus, Rash Hematologic/lymphatic: DENIES: Bruising, Lymphadenopathy Immunologic/allergic: DENIES: Eczema, Urticaria Neurologic: DENIES: Abnormal gait, Headache, Localized weakness, Paresthesias, Seizures, Speech Problems, Tremor, Poor Balance Psychiatric: DENIES: Anxiety, Confusion, Mood changes, Depression, Hallucinations, Agitation, Suicidal Ideation, Homicidal Ideation, Delusions Except as stated in HPI: all other systems reviewed are Neg Left knee pain. Past Family Social History Allergies: Coded Allergies: No Known Allergies (Unverified , 08/25/17) Past Medical History 1. T-cell lymphoblastic lymphoma. 2. Asthma. 3. History of herniated disk. 4. History of pneumonia. Past Surgical History Port placement, thoracentesis, CT-guided biopsy of mediastinal mass. Reported Medications Reported Meds & Active Scripts Active Reported Prednisone 2.5 Mg Tab Unknown Dose PO DIRECTED Levofloxacin 500 Mg Tablet 500 Mg PO DAILY Active Ordered Medications Current Medications Medications (Trade) Dose Ordered Sig/Suzan Route Start Time Stop Time Status Last Admin (NS Flush) 2 ml UNSCH PRN IV FLUSH 08/25/17 10:00 08/25/17 11:45 (NS Flush) 2 ml BID IV FLUSH 08/25/17 21:00 (Zofran Inj) 4 mg Q6H PRN IVP 08/25/17 10:00 (Narcan Inj) 0.4 mg UNSCH PRN IV PUSH 08/25/17 10:00 Azithromycin 500 mg/Sodium Chloride 250 ml @ 250 mls/hr Q24H IV 4/9/18 12:00 Ceftriaxone Sodium 1000 mg/ Sodium Chloride 100 ml @ 200 mls/hr Q24H IV 08/26/17 11:00 (Lactinex) 1 tab TID PO 08/25/17 13:00 08/25/17 13:17 (Morphine Inj) 2 mg Q4H PRN IV PUSH 08/25/17 14:00 (Morphine Inj) 4 mg Q4H IV PUSH 08/25/17 15:00 08/26/17 14:59 (SoluMEDROL INJ) 40 mg Q12HR IV PUSH 08/25/17 21:00 Pharmacy Profile Note 0 ml @ 0 mls/hr UNSCH PRN OTHER 08/25/17 15:15 Fluconazole/ Sodium Chloride 200 ml @ 100 mls/hr Q24H IV 08/25/17 16:00 08/25/17 15:51 (Duoneb Neb) 1 ampule Q6HR NEB PRN NEB 08/25/17 15:15 (Colace) 100 mg BID PO 08/25/17 21:00 (Milk Of Magnesia Liq) 30 ml DAILY PRN PO 08/25/17 15:15 (Lovenox Inj) 40 mg Q24H SQ 08/25/17 16:00 08/25/17 15:50 (Xanax) 0.25 mg Q6H PRN PO 08/25/17 15:30 Vancomycin HCl 2000 mg/Sodium Chloride 520 ml @ 250 mls/hr Q12H IV 08/25/17 17:00 08/25/17 17:07 Miscellaneous Information SPECIFIC LAB TO BE ... ONCE ONCE .XX 08/27/17 04:45 08/27/17 04:46 Family History Significant for mother is alive. No other family history of cancer. Social History He is , lives with his and children. He has never smoked. Denies any alcohol or illicit drug use. He has 3 pets dogs. He has 3 children. 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 He also works for [employer]. Physical Exam Vital Signs Vital Signs Date Time Temp Pulse Resp B/P (MAP) Pulse Ox O2 Delivery O2 Flow Rate FiO2 08/25/17 13:00 98.2 93 16 123/85 (98) 94 08/25/17 12:26 08/25/17 12:00 96 24 123/68 (86) 94 Room Air 08/25/17 11:53 94 22 125/82 (96) 95 Room Air 08/25/17 09:05 18 08/25/17 09:00 82 20 124/74 (91) 94 Room Air 08/25/17 08:03 94 Room Air 08/25/17 08:03 Nasal Cannula 2.00 08/25/17 08:00 88 22 129/91 (104) 94 Room Air 08/25/17 07:23 90 26 127/76 (93) 94 Room Air 08/25/17 07:09 98.3 97 22 131/89 (103) 94 Physical Exam GENERAL: This is a well-nourished, well-developed patient, in no apparent distress. SKIN: No rashes, ecchymoses or lesions. Cool and dry. Bald. HEAD: Atraumatic. Normocephalic. No temporal or scalp tenderness. EYES: Pupils equal round and reactive. Extraocular motions intact. No scleral icterus. No injection or drainage. ENT: Nose without bleeding, purulent drainage or septal hematoma. Throat without erythema, tonsillar hypertrophy or exudate. Uvula midline. Airway patent. NECK: Trachea midline. Supple, nontender, no meningeal signs. CARDIOVASCULAR: Hs audible. RESPIRATORY: Clear to auscultation. Breath sounds equal bilaterally. GASTROINTESTINAL: Abdomen soft, non-tender, nondistended. MUSCULOSKELETAL: Extremities without clubbing, cyanosis, or edema. NEUROLOGICAL: Awake and alert. Cranial nerves II through XII intact. Motor and sensory grossly within normal limits. Five out of 5 muscle strength in all muscle groups. Normal speech. Psych cooperative IV line sites with no e.o infection. Port site ok with no e.o infection. Laboratory Laboratory Tests Test 08/25/17 07:55 08/25/17 15:53 White Blood Count 8.9 Red Blood Count 3.85 Hemoglobin 10.6 Hematocrit 32.7 Mean Corpuscular Volume 84.9 Mean Corpuscular Hemoglobin 27.6 Mean Corpuscular Hemoglobin Concent 32.5 Red Cell Distribution Width 19.4 Platelet Count 235 Mean Platelet Volume 7.5 Neutrophils (%) (Auto) 88.5 Lymphocytes (%) (Auto) 2.8 Monocytes (%) (Auto) 7.9 Eosinophils (%) (Auto) 0.2 Basophils (%) (Auto) 0.6 Neutrophils # (Auto) 7.9 Lymphocytes # (Auto) 0.3 Monocytes # (Auto) 0.7 Eosinophils # (Auto) 0.0 Basophils # (Auto) 0.1 CBC Comment AUTO DIFF Differential Total Cells Counted 100 Neutrophils % (Manual) 78 Band Neutrophils % 11 Lymphocytes % 4 Monocytes % 3 Neutrophils # (Manual) 8.3 Myelocytes 4 Differential Comment FINAL DIFF MANUAL Platelet Estimate NORMAL Platelet Morphology Comment NORMAL Polychromasia 2.5 Tear Drop Cells 1+ Ovalocytes 1+ Prothrombin Time 10.0 Prothromb Time International Ratio 1.0 Blood Urea Nitrogen 10 Creatinine 0.80 Random Glucose 95 Calcium Level 8.9 Sodium Level 140 Potassium Level 3.6 Chloride Level 106 Carbon Dioxide Level 25.9 Anion Gap 8 Estimat Glomerular Filtration Rate 106 Troponin I 0.03 B-Type Natriuretic Peptide 49 Immunoglobulin G Total 692 Immunoglobulin A 159 Date/Time Source Procedure Growth Status 08/25/17 08:00 Blood Peripheral Aerobic Blood Culture Pending Received 08/25/17 08:00 Blood Peripheral Anaerobic Blood Culture Pending Received Result Diagram: 08/25/17 0755 08/25/17 [address] Angiography 08/25/17 0751 Signed Impressions: Service Date/Time: Friday, August 25, 2017 09:13 - CONCLUSION: No evidence of PE. Multifocal airspace consolidation identified throughout the right hemithorax and within the anteromedial aspect of the left upper lobe. Findings are consistent with an acute infectious process such as multifocal pneumonia.. Rin Velasquez MD Lower Extremity Ultrasound 08/25/17 0000 Signed Impressions: Service Date/Time: Friday, August 25, 2017 09:53 - CONCLUSION: Normal examination. Rin Velasquez MD Knee X-Ray 08/25/17 0000 Signed Impressions: Service Date/Time: Friday, August 25, 2017 09:31 - CONCLUSION: Unremarkable examination of the left knee. Rin Velasquez MD Assessment and Plan Assessment and Plan Possible sepsis and immune compromised patient Pneumonia nonresponsive to oral antibiotics. Differential diagnosis includes flu as well as PCP. Possible viral pneumonia influenza related T-cell lymphoblastic leukemia at risk for T-cell related infections such as tuberculosis and fungal infections Check immunoglobulins possible low pre-disposing him to infections Port in place Recommendations Discontinue ceftriaxone IV Start cefepime IV to cover for Pseudomonas infection in an immunocompromised patient Continue vancomycin IV Continue azithromycin Check respiratory panel Start Tamiflu oral Case discussed with Dr. Love arenas him about sending AF[facility], Fungal and PCP, Viral cultures from Bronch specimens. Will follow along with you. Sarah Dwyer MD Aug 25, 2017 17:14
[2017-08-25 17:28] LABS: IMMUNOGLOBULIN M 21 MG/DL (42-258)
--- NOTE | 2017-08-25 20:03 | EKG ---
Date Performed: 08/25/2017 Time Performed: 07:36:42 PTAGE: 42 years EKG: Sinus rhythm POSSIBLE RIGHT VENTRICULAR CONDUCTION DELAY POSSIBLE LEFT VENTRICULAR HYPERTROPHY NONSPECIFIC T-WAVE ABNORMALITY Compared to previous tracing, QRS voltage is more prominent ABNORMAL ECG PREVIOUS TRACING : 04/26/2017 13.19 DOCTOR: Lizandro Jasso Interpretating Date/Time 08/25/2017 20:02:19
[2017-08-25 21:02] LABS: PROTHROMBIN TIME - PATIENT 9.8 SEC (9.8-11.6)
[2017-08-25] MEDS: SODIUM CHLORIDE 0.9% FLUSH 10 ML FLUSH IV FLUSH SCH (21:41)
[2017-08-25] MEDS: methylPREDNISolone SOD SUCC 40 MG/1 ML VIAL IV PUSH SCH (21:41)
[2017-08-25] MEDS: CEFEPIME INJ 2,000 MG in SODIUM CHLORIDE 0.9% INJ 100 ML IV SCH (21:41)
[2017-08-25] MEDS: OSELTAMIVIR PHOSPHATE 75 MG CAP PO SCH (21:41)
[2017-08-25] MEDS: DOCUSATE SODIUM 100 MG CAP PO SCH (21:42)
[2017-08-26] VITALS: BP 133/83; PULSE 93; RESP 18; TEMP 98; O2SAT 93
[2017-08-26 04:00] VITALS: BP 154/95; PULSE 88; RESP 18; TEMP 97.6; O2SAT 93
[2017-08-26] MEDS: CEFEPIME INJ 2,000 MG in SODIUM CHLORIDE 0.9% INJ 100 ML IV SCH ×3 (05:02→22:06)
[2017-08-26] MEDS: VANCOMYCIN INJ 2,000 MG in SODIUM CHLORID 0.9% 500 ML INJ 500 ML IV SCH ×2 (05:02→18:32)
[2017-08-26] MEDS: MORPHINE SULFATE 4 MG/ML INJ IV PUSH SCH ×3 (05:02→11:40)
[2017-08-26] MEDS ORDERED: CHLORHEXIDINE GLUCONATE 2 % 1 PACK (2 CLOTHS) TOPICAL PRN (05:45)
[2017-08-26] MEDS ORDERED: POVIDONE IODINE 5% (ANTISEPSIS KIT) 4 APPLICATIONS EACH NARE PRN (05:45)
[2017-08-26] MEDS ORDERED: SODIUM CHLORID 0.9% 500 ML IV PRN (05:45)
[2017-08-26] MEDS ORDERED: LACTATED RINGER'S 1000 ML IV PRN (05:45)
[2017-08-26] MEDS: SODIUM CHLORIDE 0.9% FLUSH 10 ML FLUSH IV FLUSH SCH ×2 (08:11→21:00)
[2017-08-26] MEDS: methylPREDNISolone SOD SUCC 40 MG/1 ML VIAL IV PUSH SCH ×2 (08:11→22:07)
[2017-08-26 08:12] VITALS: BP 134/77; PULSE 89; RESP 20; TEMP 98; O2SAT 92
[2017-08-26] MEDS: DOCUSATE SODIUM 100 MG CAP PO SCH ×2 (08:14→22:07)
[2017-08-26] MEDS: OSELTAMIVIR PHOSPHATE 75 MG CAP PO SCH (08:15)
[2017-08-26] MEDS: LACTOBACILLUS ACIDOPHILUS TAB PO SCH ×3 (08:15→16:41)
[2017-08-26] MEDS ORDERED: GADODIAMIDE PF 287 MG/ML 20 ML VIAL (for RAD MRI) IVCONTRAST ONE (08:52)
[2017-08-26 09:01] LABS: AUTOMATED NEUTROPHIL # 9.8 TH/MM3 (1.8-7.7); BASOPHIL % 0.3 % (0.0-2.0); HEMATOCRIT 33.5 % (39.0-51.0); HEMOGLOBIN 11.1 GM/DL (13.0-17.0); LYMPH % 1.6 % (9.0-44.0); LYMPHOCYTE # 0.2 TH/MM3 (1.0-4.8); MEAN CELL VOLUME 85.7 FL (80.0-100.0); MEAN CORPUSCULAR HEMOGLOBIN 28.3 PG (27.0-34.0); MEAN PLATELET VOLUME 7.6 FL (7.0-11.0); MONO % 2.5 % (0.0-8.0); MONOCYTE # 0.3 TH/MM3 (0-0.9); NEUT % 95.6 % (16.0-70.0); PLATELET COUNT 245 TH/MM3 (150-450); RED BLOOD COUNT 3.91 MIL/MM3 (4.50-5.90); RED CELL DISTRIBUTION WIDTH 19.2 % (11.6-17.2); WHITE BLOOD COUNT 10.2 TH/MM3 (4.0-11.0)
[2017-08-26 09:37] LABS: AST (GOT) 16 U/L (15-37); BICARBONATE 25.5 MEQ/L (21.0-32.0); BLOOD UREA NITROGEN 15 MG/DL (7-18); CALCIUM 9.1 MG/DL (8.5-10.1); CHLORIDE 103 MEQ/L (98-107); CREATININE 0.74 MG/DL (0.60-1.30); GLOMERULAR FILTRATION RATE 116 ML/MIN (>89); GLUCOSE,RANDOM 155 MG/DL (74-106); SODIUM (NA) 137 MEQ/L (136-145)
[2017-08-26 09:38] LABS: ALT (GPT) 50 U/L (12-78)
[2017-08-26 09:41] LABS: ALKALINE PHOSPHATASE 61 U/L (45-117); TOTAL BILIRUBIN ADULT 0.5 MG/DL (0.2-1.0); TOTAL PROTEIN 7.1 GM/DL (6.4-8.2)
--- NOTE | 2017-08-26 09:57 | RADRPT ---
EXAM DATE/TIME: 08/26/2017 08:27 [place] COMPARISON: No previous studies available for comparison. INDICATIONS : Left knee pain over entire knee with no known injury. CONTRAST: 18 cc Omniscan (gadodiamide) IV MEDICAL HISTORY : Lymphoma. SURGICAL HISTORY : PORT PLACEMENT ENCOUNTER: Subsequent ACUITY: 3 day PAIN SCORE: 3/10 LOCATION: Left KNEE TECHNIQUE: Multiplanar multisequence MRI examination of the knee was performed with and without contrast. FINDINGS: CRUCIATE LIGAMENTS: ACL and PCL are intact. MENISCI: There is evidence of a meniscal tear extending to the inferior articular surface of the posterior hor n of the medial meniscus. The anterior horn of the medial meniscus is intact. The anterior and 3d technologist ior horns of the lateral meniscus are also intact without tear. COLLATERAL LIGAMENTS: MCL and LCL complexes are intact. BONE/CARTILAGE: There is evidence of an intramedullary bone infarct involving the distal femoral metadiaphysis. There is also a subchondral bone infarct involving the medial tibial plateau with minimal cartilaginous th inning overlying this infarct. MISCELLANEOUS: A small joint effusion is noted. Extensor mechanism is intact. POST-CONTRAST: There are no abnormal areas of enhancement on the post-contrast images. CONCLUSION: 1. Meniscal tear involving the posterior horn of the medial meniscus which extends to the inferior ar ticular surface. 2. Subchondral bone infarct involving the medial tibial plateau posteriorly with minimal overlying ca rtilaginous thinning. 3. Small knee joint effusion. 4. Bone infarct involving the distal femoral metadiaphysis. Anthony Brewer MD on August 26, 2017 at 9:44 Board Certified Radiologist. This report was verified electronically.
[2017-08-26 10:03] LABS: OVALOCYTES 1+ (NORMAL); TEARDROP RBCS 1+ (NORMAL)
[2017-08-26] MEDS: AZITHROMYCIN INJ 500 MG in SODIUM CHLOR 0.9% 250 ML INJ 250 ML IV SCH (10:58)
[2017-08-26] MEDS ORDERED: cefTRIAXone INJ 1,000 MG in SODIUM CHLORIDE 0.9% INJ 100 ML IV SCH (11:00)
[2017-08-26 12:43] VITALS: BP 140/97; PULSE 91; RESP 20; TEMP 97.8; O2SAT 93
--- NOTE | 2017-08-26 13:26 | HHI.PR ---
Subjective Remarks Follow-up multifocal bilateral pneumonia 08/26/17-patient seen and examined, currently nothing by mouth pending bronchoscopy .Afebrile Objective Vitals Vital Signs Date Time Temp Pulse Resp B/P (MAP) Pulse Ox O2 Delivery O2 Flow Rate FiO2 08/26/17 12:43 97.8 91 20 140/97 (111) 93 08/26/17 08:12 98.0 89 20 134/77 (96) 92 08/26/17 04:00 97.6 88 18 154/95 (114) 93 08/26/17 00:00 98.0 93 18 133/83 (100) 93 08/25/17 20:00 97.9 95 18 138/84 (102) 99 08/25/17 16:00 98.4 101 16 121/68 (85) 93 I/O 08/25/17 08/25/17 08/25/17 08/26/17 08/26/17 08/26/17 07:00 15:00 23:00 07:00 15:00 23:00 Intake Total 350 ml 200 ml 350 ml Balance 350 ml 200 ml 350 ml Intake IV Total 350 ml 200 ml 350 ml # Voids 1 3 Result Diagram: 08/26/17 0714 08/26/17 0714 Imaging Last Impressions Knee MRI 08/26/17 0600 Signed Impressions: Service Date/Time: Saturday, August 26, 2017 08:27 - CONCLUSION: 1. Meniscal tear involving the posterior horn of the medial meniscus which extends to the inferior articular surface. 2. 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 3. Small knee joint effusion. 4. Bone infarct involving the distal femoral metadiaphysis. Anthony Brewer MD CT Angiography 08/25/17 0751 Signed Impressions: Service Date/Time: Friday, August 25, 2017 09:13 - CONCLUSION: No evidence of PE. Multifocal airspace consolidation identified throughout the right hemithorax and within the anteromedial aspect of the left upper lobe. Findings are consistent with an acute infectious process such as multifocal pneumonia.. Rin Velasquez MD Lower Extremity Ultrasound 08/25/17 0000 Signed Impressions: Service Date/Time: Friday, August 25, 2017 09:53 - CONCLUSION: Normal examination. Rin Velasquez MD Knee X-Ray 08/25/17 0000 Signed Impressions: Service Date/Time: Friday, August 25, 2017 09:31 - CONCLUSION: Unremarkable examination of the left knee. Rin Velasquez MD Objective Remarks GENERAL: NAD SKIN: Warm and dry. HEAD: Normocephalic. EYES: No scleral icterus. No injection or drainage. NECK: Supple, trachea midline. No JVD or lymphadenopathy. CARDIOVASCULAR: Regular rate and rhythm without murmurs, gallops, or rubs. port in place RESPIRATORY: Breath sounds decrease bilaterally. GASTROINTESTINAL: Abdomen soft, non-tender, nondistended. MUSCULOSKELETAL: No cyanosis, or edema. Right knee TTP with ROM BACK: Nontender without obvious deformity. No CVA tenderness. A/P Problem List: (1) T-cell lymphoma ICD Code: C85.90 - Non-Hodgkin lymphoma, unspecified, unspecified site (2) Multifocal pneumonia ICD Code: J18.9 - Pneumonia, unspecified organism Status: Acute (3) Failure of outpatient treatment ICD Code: Z78.9 - Other specified health status Status: Acute (4) Cough ICD Code: R05 - Cough Status: Acute Assessment and Plan 42-year-old man with Multifocal bilateral pneumonia Outpatient treatment failure Atypical pattern Currently on cefepime, vancomycin and azithromycin per infectious disease specialist Plan for bronchoscopy per pulmonary medicine Left knee pain Right knee MRI with finding of meniscal tear involving posterior horn of the medial meniscus, finding of subchondral bone infarct Will consult orthopedic surgery for further evaluation Lymphoma Immunocompromise Oncology consulted [facility]OP on hold Asthma No current exacerbation As needed albuterol Monitor for exacerbations DVT prophylaxis EDELs Db Smith MD Aug 26, 2017 13:26
--- NOTE | 2017-08-26 14:05 | PD.ONC.PN ---
Subjective Subjective Remarks Afebrile overnight. Patient resting in bed in nad. still has pain in his knee, especially with movement. does not remember an injury. has dyspnea with exertion, but is able to walk to the bathroom on his own. hungry as he is NPO for bronchoscopy. Objective Data Date Time Temp Pulse Resp B/P (MAP) Pulse Ox O2 Delivery O2 Flow Rate FiO2 08/26/17 12:43 97.8 91 20 140/97 (111) 93 08/26/17 08:12 98.0 89 20 134/77 (96) 92 08/26/17 04:00 97.6 88 18 154/95 (114) 93 08/26/17 00:00 98.0 93 18 133/83 (100) 93 08/25/17 20:00 97.9 95 18 138/84 (102) 99 08/25/17 16:00 98.4 101 16 121/68 (85) 93 08/26/17 08/26/17 08/26/17 07:00 15:00 23:00 Intake Total 350 ml Balance 350 ml Result Diagram: 08/26/17 0714 08/26/17 07 Laboratory Results Laboratory Tests Test 08/25/17 15:53 08/25/17 18:00 08/25/17 19:38 08/26/17 07:14 Immunoglobulin G Total 692 MG/DL Immunoglobulin A 159 MG/DL Immunoglobulin M 21 MG/DL Prothrombin Time 9.8 SEC Prothromb Time International Ratio 1.0 RATIO Activated Partial Thromboplast Time 25.7 SEC White Blood Count 10.2 TH/MM3 Red Blood Count 3.91 MIL/MM3 Hemoglobin 11.1 GM/DL Hematocrit 33.5 % Mean Corpuscular Volume 85.7 FL Mean Corpuscular Hemoglobin 28.3 PG Mean Corpuscular Hemoglobin Concent 33.0 % Red Cell Distribution Width 19.2 % Platelet Count 245 TH/MM3 Mean Platelet Volume 7.6 FL Neutrophils (%) (Auto) 95.6 % Lymphocytes (%) (Auto) 1.6 % Monocytes (%) (Auto) 2.5 % Eosinophils (%) (Auto) 0.0 % Basophils (%) (Auto) 0.3 % Neutrophils # (Auto) 9.8 TH/MM3 Lymphocytes # (Auto) 0.2 TH/MM3 Monocytes # (Auto) 0.3 TH/MM3 Eosinophils # (Auto) 0.0 TH/MM3 Basophils # (Auto) 0.0 TH/MM3 CBC Comment AUTO DIFF Differential Comment AUTO DIFF CONFIRMED Platelet Estimate NORMAL Platelet Morphology Comment NORMAL Tear Drop Cells 1+ Ovalocytes 1+ Blood Urea Nitrogen 15 MG/DL Creatinine 0.74 MG/DL Random Glucose 155 MG/DL Total Protein 7.1 GM/DL Albumin 3.0 GM/DL Calcium Level 9.1 MG/DL Alkaline Phosphatase 61 U/L Aspartate Amino Transf (AST/SGOT) 16 U/L Alanine Aminotransferase (ALT/SGPT) 50 U/L Total Bilirubin 0.5 MG/DL Sodium Level 137 MEQ/L Potassium Level 4.1 MEQ/L Chloride Level 103 MEQ/L Carbon Dioxide Level 25.5 MEQ/L Anion Gap 9 MEQ/L Estimat Glomerular Filtration Rate 116 ML/MIN Culture Results Microbiology Date/Time Source Procedure Growth Status 08/25/17 08:00 Blood Peripheral Aerobic Blood Culture - Preliminary NO GROWTH IN 1 DAY Resulted 08/25/17 08:00 Blood Peripheral Anaerobic Blood Culture - Preliminary NO GROWTH IN 1 DAY Resulted 08/25/17 07:55 Blood Peripheral Aerobic Blood Culture - Preliminary NO GROWTH IN 1 DAY Resulted 08/25/17 07:55 Blood Peripheral Anaerobic Blood Culture - Preliminary NO GROWTH IN 1 DAY Resulted 08/25/17 17:00 Sputum Expectorated Sputum Gram Stain - Final Resulted 08/25/17 17:00 Sputum Expectorated Sputum Sputum Culture Pending Resulted Imaging Studies Last 24 hours Impressions Knee MRI 08/26/17 0600 Signed Impressions: Service Date/Time: Saturday, August 26, 2017 08:27 - CONCLUSION: 1. Meniscal tear involving the posterior horn of the medial meniscus which extends to the inferior articular surface. 2. 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 3. Small knee joint effusion. 4. Bone infarct involving the distal femoral metadiaphysis. Anthony Brewer MD Administered Medications Medications (Trade) Dose Ordered Sig/Suzan Route PRN Reason Start Time Stop Time Status Last Admin Dose Admin Sodium Chloride (NS Flush) 2 ml UNSCH PRN IV FLUSH FLUSH AFTER USING IV ACCESS 08/25/17 10:00 08/25/17 11:45 Sodium Chloride (NS Flush) 2 ml BID IV FLUSH 08/25/17 21:00 08/26/17 08:11 Azithromycin 500 mg/Sodium Chloride 250 ml @ 250 mls/hr Q24H IV 08/26/17 12:00 08/26/17 10:58 Lactobacillus Acidophilus (Lactinex) 1 tab TID PO 08/25/17 13:00 08/26/17 08:15 Morphine Sulfate (Morphine Inj) 4 mg Q4H IV PUSH 08/25/17 15:00 08/26/17 14:59 08/26/17 11:40 Methylprednisolone Sodium Succinate (SoluMEDROL INJ) 40 mg Q12HR IV PUSH 08/25/17 21:00 08/26/17 08:11 Fluconazole/ Sodium Chloride 200 ml @ 100 mls/hr Q24H IV 08/25/17 16:00 08/25/17 15:51 Docusate Sodium (Colace) 100 mg BID PO 08/25/17 21:00 08/26/17 08:14 Enoxaparin Sodium (Lovenox Inj) 40 mg Q24H SQ 08/25/17 16:00 08/25/17 15:50 Vancomycin HCl 2000 mg/Sodium Chloride 520 ml @ 250 mls/hr Q12H IV 08/25/17 17:00 08/26/17 05:02 Oseltamivir Phosphate (Tamiflu) 75 mg BID PO 08/25/17 21:00 08/26/17 08:15 Cefepime HCl 2000 mg/Sodium Chloride 100 ml @ 200 mls/hr Q8H IV 08/25/17 20:00 08/26/17 11:43 Objective Remarks GENERAL: Middle aged male, sitting up in bed in [facility]. SKIN: Warm and dry. HEAD: Normocephalic. EYES: no injection or drainage. NECK: Supple, trachea midline. CARDIOVASCULAR: Regular rate and rhythm RESPIRATORY: Breath sounds equal bilaterally. No accessory muscle use. GASTROINTESTINAL: Abdomen soft, non-tender, nondistended. EXTREMITIES: No cyanosis NEUROLOGICAL: awake and alert. normal speech. moving extremities. Assessment/Plan Problem List: (1) T-cell lymphoma ICD Codes: C85.90 - Non-Hodgkin lymphoma, unspecified, unspecified site Plan: --responded to [facility] chemotherapy. --went into remission and CT PET scan from 06/2017 was clear. --will place treatment on hold until resolution of lung infection. (2) Multifocal pneumonia ICD Codes: J18.9 - Pneumonia, unspecified organism Status: Acute Plan: --pulmonology following and plans to do bronchoscopy either today or tomorrow. --BC no growth --on antibiotics. Assessment 42y/o male with h/o T-cell lymphoma, admitted with pneumonia. h/o Asthma. History of herniated disk. History of pneumonia. Plan 1. await bronchoscopy 2. reviewed CTA and MRI results with patient 3. continue antibiotics. 4. continue supportive care. 5. monitor CBC Attending Statement The exam, history, and the medical decision-making described in the above note were completed with the assistance of the mid-level provider. I reviewed and agree with the findings presented. I attest that I had a [id number] encounter with the patient on the same day, and personally performed and documented my assessment and findings in the medical record. Pt feel better after bronchoscopy, feels he can move air better. Discussed chemo is deferred until resolution of infection/pneumonia. Conservative management meniscus tear, consult PT and get recommendations for knee brace. Transfer to oncology floor. OK to access port. Doris Liu Aug 26, 2017 14:05 Aysha Leigh MD Aug 26, 2017 19:27
--- NOTE | 2017-08-26 15:39 | MR ---
cc: Francis Aleman MD DATE: 08/26/2017 PROCEDURE: Bronchoscopy. PREOPERATIVE DIAGNOSIS Extensive bilateral lung infiltrate. POSTOPERATIVE DIAGNOSIS: No endobronchial lesions seen. DESCRIPTION OF PROCEDURE: Informed consent was obtained from patient. Procedure and the complications, including complication of anesthesia, pneumothorax requiring chest tube, bleeding complication, injury to the blood vessel, lungs, nose, arrhythmia, hypoxia explained and he consented for procedure. The patient was brought to endoscopy suite and under general anesthesia, LMA tube was placed by anesthesiologist. Bronchoscope done through LMA tube. Vocal cords are normal. Trachea is normal. He has mild tracheal bronchomalacia. Main juan is sharp. Bronchoscope advanced to the left lung. Left upper lingular and lower lobe were visualized. No endobronchial mucosal lesion was seen. No inflammation, no secretions were seen. Then, bronchoscope was withdrawn to the right lung. Right upper, middle, and lower lobes were visualized. No secretions. No erythema, no endobronchial lesion was seen. Right lung washings were done, which were sent for routine culture, AFB, fungal culture, cell count, differential, cytology, PCP and viral panel. He tolerated the procedure well. Postprocedure chest x-ray ordered to rule out pneumothorax. MD MAMIE Chavira/SOLANGE , 03:28 PM , 03:38 PM
[2017-08-26] MEDS: ENOXAPARIN SODIUM 40 MG/0.4 ML SYRINGE SQ SCH (16:00)
[2017-08-26] MEDS ORDERED: *RESP: ALBUTEROL 2.5 MG/3 ML NEB (PRN) PERIprocedural Use ONLY NEB ONE (16:09)
[2017-08-26] MEDS ORDERED: DO NOT ADM ANY ANTICOAGULANT DRUGS PRN (16:30)
[2017-08-26 16:35] VITALS: BP 104/59; PULSE 96; RESP 20; TEMP 97.9; O2SAT 92
[2017-08-26] MEDS: MORPHINE SULFATE 2 MG/ML SYRINGE IV PUSH PRN ×2 (16:36→22:20)
[2017-08-26] MEDS: FLUCONAZOLE 400 MG PREMIX BAG 200 ML IV SCH (16:38)
--- NOTE | 2017-08-26 16:47 | RADRPT ---
EXAM DATE/TIME: 08/26/2017 15:51 [facility] COMPARISON: CT PULMONARY ANGIOGRAM, August 25, 2017, 9:13. CHEST SINGLE AP, June 10, 2017, 0:31. INDICATIONS : Post bronchoscopy. MEDICAL HISTORY : Lymphoma. Hypertension. SURGICAL HISTORY : Right shoulder surgery, bone marrow transplant. ENCOUNTER: Initial ACUITY: 1 day PAIN SCORE: Non-responsive. LOCATION: Bilateral chest FINDINGS: Diffuse infiltrate is noted within the right lung consistent with possible pneumonia. The left lung i s clear. The heart is stable. Left subclavian [id number] has its tip in the superior vena cava. CONCLUSION: Diffuse infiltrate within the right lung consistent with possible pneumonia. Clinical correlation is recommended. Anthony Brewer MD on August 26, 2017 at 16:43 Board Certified Radiologist. This report was verified electronically.
--- NOTE | 2017-08-26 17:48 | HHI.PR ---
Subjective Remarks 42 YOWM with T cell lymphoma, on CHOP therapy has bilat lung infilt, R>L Had Bronch no secretions, erythema or endobronchial lesion Feels better Objective Vital Signs Vital Signs Date Time Temp Pulse Resp B/P (MAP) Pulse Ox O2 Delivery O2 Flow Rate FiO2 08/26/17 16:35 97.9 96 20 104/59 (74) 92 08/26/17 16:25 92 20 120/73 (89) 96 Nasal Cannula 4 08/26/17 16:15 86 20 115/68 (84) 94 Nasal Cannula 4 08/26/17 16:00 93 20 119/66 (83) 96 Nasal Cannula 4 08/26/17 15:45 98.7 107 20 137/75 (95) 92 Simple Mask 8 08/26/17 12:43 97.8 91 20 140/97 (111) 93 08/26/17 08:12 98.0 89 20 134/77 (96) 92 08/26/17 04:00 97.6 88 18 154/95 (114) 93 08/26/17 00:00 98.0 93 18 133/83 (100) 93 08/25/17 20:00 97.9 95 18 138/84 (102) 99 I/O 08/25/17 08/25/17 08/25/17 08/26/17 08/26/17 08/26/17 07:00 15:00 23:00 07:00 15:00 23:00 Intake Total 350 ml 200 ml 350 ml Balance 350 ml 200 ml 350 ml Intake IV Total 350 ml 200 ml 350 ml # Voids 1 3 3 # Bowel Movements 1 Result Diagram: 08/26/1714 08/26/17 07 Objective Remarks GENERAL: WBWN WM, NAD SKIN: Warm and dry. HEAD: Normocephalic. EYES: No scleral icterus. No injection or drainage. NECK: Supple, trachea midline. No JVD or lymphadenopathy. CARDIOVASCULAR: Regular rate and rhythm without murmurs, gallops, or rubs. RESPIRATORY: Breath sounds equal bilaterally. No accessory muscle use. GASTROINTESTINAL: Abdomen soft, non-tender, nondistended. MUSCULOSKELETAL: No cyanosis, or edema. BACK: Nontender without obvious deformity. No CVA tenderness. A/P Assessment and Plan IMPRESSION: 1. Extensive bilateral infiltrates, more on the right lung than on the left. Need to rule out community-acquired pneumonia or other opportunistic infection. 2. T-cell lymphoma. He is on CHOP chemotherapy. 3. Bronchial asthma. PLAN: Check bronch results Cont Abx per ID Stable on RA Francis Aleman MD Aug 26, 2017 17:48
[2017-08-26 20:30] VITALS: BP_SYST 118; BP_SYST 127; BP_DIAS 68; BP_DIAS 72; PULSE 105; PULSE 99; RESP 18; TEMP 97.8; TEMP 97.9; O2SAT 97
[2017-08-26] MEDS: ALPRAZolam 0.25 MG TAB PO PRN (22:07)
[2017-08-27] VITALS (7 sets, daily range): BP systolic 124–148; BP diastolic 75–89; PULSE 86–99; RESP 17–20; TEMP 97.6–98.5; O2SAT 92–97
[2017-08-27] MEDS: CEFEPIME INJ 2,000 MG in SODIUM CHLORIDE 0.9% INJ 100 ML IV SCH ×2 (03:34→12:30)
[2017-08-27] MEDS: MORPHINE SULFATE 2 MG/ML SYRINGE IV PUSH PRN ×5 (03:34→20:47)
[2017-08-27] MEDS ORDERED: PHARMACY ORDERED LAB ONE (04:45)
[2017-08-27] MEDS: VANCOMYCIN INJ 2,000 MG in SODIUM CHLORID 0.9% 500 ML INJ 500 ML IV SCH (05:30)
[2017-08-27 07:20] LABS: VANCOMYCIN TROUGH 11.4 MCG/ML (5.0-10.0)
[2017-08-27 07:57] LABS: CREATININE 0.83 MG/DL (0.60-1.30)
[2017-08-27] MEDS: LACTOBACILLUS ACIDOPHILUS TAB PO SCH ×3 (08:01→16:42)
[2017-08-27] MEDS: DOCUSATE SODIUM 100 MG CAP PO SCH ×2 (08:01→20:46)
[2017-08-27] MEDS: methylPREDNISolone SOD SUCC 40 MG/1 ML VIAL IV PUSH SCH ×2 (08:01→20:46)
[2017-08-27] MEDS: SODIUM CHLORIDE 0.9% FLUSH 10 ML FLUSH IV FLUSH SCH ×2 (08:10→20:47)
--- NOTE | 2017-08-27 08:31 | MB ---
cc: Pb Montes De Oca PA/Bacteriologist Fishery Jesus Crow MD DATE: 08/27/2017 CHIEF COMPLAINT: Left knee pain. HISTORY OF PRESENT ILLNESS: The patient is a 42-year-old white male who was admitted to the hospital on 08/25/2017 for persistent cough. He states that he has a history of T-cell lymphoma and was being treated on an outpatient basis with Levaquin for potential pneumonia. He states his cough got worse, which brought him to the emergency department. He states that 3 days prior to that, he started developing left knee pain as well. He states that he had no injury or twisting or sentinel event that he can recall that caused an issue. He states that he has pain anytime he ambulates or bears weight on the knee. He states when he bends it he also has slight discomfort. He states he has been trying to stay off the knee as much as possible. He reports that he feels that he has swelling around the kneecap and pain on the anterior aspect of the knee. He denies any popping or clicking. Denies any laxity. Denies any numbness, tingling or radiation of symptoms. Denies any weakness. Denies any loss of consciousness or dizziness. REVIEW OF SYSTEMS: Negative except for as mentioned in the HPI. PAST MEDICAL HISTORY: Positive for asthma and T-cell lymphoma. PAST SURGICAL HISTORY: Positive for having a port placed. ACTIVE MEDICATIONS: Include: Prednisone and levofloxacin. ALLERGIES: NO KNOWN DRUG ALLERGIES. FAMILY HISTORY: Father and grandfather of heart attack. SOCIAL HISTORY: Denies alcohol, tobacco or illicit drug use. PHYSICAL EXAMINATION: VITAL SIGNS: Temperature 98.1, heart rate 92, respiratory rate 17, blood pressure 141/85, O2 saturation 96% on room air. GENERAL: Well-developed, well-nourished 42-year-old white male, resting comfortably, in no acute distress. HEENT: Head is normocephalic, atraumatic. EARS: Hearing intact bilaterally. EYES: Extraocular motions intact. Pupils are equal, round and reactive to light. NEUROLOGIC: Cranial nerves 2-12 grossly intact. LUNGS: No auditory wheezes at bedside. No use of accessory muscles while breathing. HEART: No grade 4 murmur present at bedside. ABDOMEN: Soft and nontender. MUSCULOSKELETAL: Left knee, full motion of the hip, ankle, and toes. Full flexion of the knee and full extension of the knee. Mild crepitus palpated with flexion and extension of the knee. He is point tender over the medial and posteromedial joint line. He has no appreciable laxity to anterior or posterior drawer as well as a negative Cathy and no pain or laxity to valgus and varus stress test. He does have pain with Alejandra test. He has full sensation distally and full strength to knee extension and knee flexion as well as dorsiflexion and plantar flexion. Right lower extremity full motion of the hip, knee, ankle and toes and no pain with full sensation distally and full strength. LABS: Labs were reviewed from 08/26/2017 which show a white blood cell count of 10.2, red blood cell count of 3.91, a hemoglobin of 11.1 and hematocrit of 33.5. He has a platelet count of 245. He has an INR of 1.0. His vancomycin trough is 11.4. IMAGING: X-rays of the left knee were reviewed from [facility], which show no acute bony abnormality or fracture and a well-maintained knee joint. MRI of the left knee was reviewed from [facility], which shows a medial and posteromedial meniscal tear of the left knee. Also shows bone infarcts of the distal femur and proximal tibia. The cruciate ligaments are intact, as well as the collaterals. ASSESSMENT: Medial meniscus tear of the left knee. PLAN: At this point, treatment options were discussed with the patient. Given his other health issues and cancer with pneumonia, there is no orthopedic treatment that needs to be done at this time. This is something that can be evaluated on an outpatient basis. I informed him that he will need to followup with one of our sports medicine physicians in the next month or two. This can potentially be dealt with arthroscopy. However, in the immediate setting there is no treatment to be done. I informed him he can fully weight bear and progress his activities as tolerated. He is structurally intact to the knee. He can followup in 1-[address] Jose Gracia or Dr. Lizandro Wolf for sports medicine evaluation. Otherwise, Orthopedics will be signing off at this time. Thank you for this consult. Ortho is signing off. The above patient was reviewed and discussed with Dr. Crow, and he agrees with the above dictation. NATALYA Mccartney PA/Bacteriologist Fishery TYAlejandro/MAR , 08:03 AM , 08:30 AM
[2017-08-27] MEDS: AZITHROMYCIN INJ 500 MG in SODIUM CHLOR 0.9% 250 ML INJ 250 ML IV SCH (11:20)
--- NOTE | 2017-08-27 11:54 | HHI.PR ---
Subjective Remarks Follow-up multifocal bilateral pneumonia 08/26/17-patient seen and examined, currently nothing by mouth pending bronchoscopy .Afebrile 08/27/17-patient seen and examined, still with significant shortness of breath. Bronchoscopy performed yesterday Objective Vitals Vital Signs Date Time Temp Pulse Resp B/P (MAP) Pulse Ox O2 Delivery O2 Flow Rate FiO2 08/27/17 11:09 92 08/27/17 08:33 98.5 96 20 148/89 (108) 95 08/27/17 04:50 98.1 92 17 141/85 (103) 96 08/27/17 00:30 97.6 92 17 124/75 (91) 97 08/26/17 20:30 97.8 105 18 127/68 (87) 97 08/26/17 16:35 97.9 96 20 104/59 (74) 92 08/26/17 16:25 92 20 120/73 (89) 96 Nasal Cannula 4 08/26/17 16:15 86 20 115/68 (84) 94 Nasal Cannula 4 08/26/17 16:00 93 20 119/66 (83) 96 Nasal Cannula 4 08/26/17 15:45 98.7 107 20 137/75 (95) 92 Simple Mask 8 08/26/17 12:43 97.8 91 20 140/97 (111) 93 I/O 08/26/17 08/26/17 08/26/17 08/27/17 08/27/17 08/27/17 07:00 15:00 23:00 07:00 15:00 23:00 Intake Total 350 ml 200 ml 480 ml Balance 350 ml 200 ml 480 ml Intake Oral 480 ml IV Total 350 ml 200 ml # Voids 3 3 4 # Bowel Movements 1 Result Diagram: 08/26/17 0714 08/27/17 0448 Imaging Last Impressions Knee MRI 08/26/17 0600 Signed Impressions: Service Date/Time: Saturday, August 26, 2017 08:27 - CONCLUSION: 1. Meniscal tear involving the posterior horn of the medial meniscus which extends to the inferior articular surface. 2. 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 3. Small knee joint effusion. 4. Bone infarct involving the distal femoral metadiaphysis. Anthony Brweer MD Chest X-Ray 08/26/17 0000 Signed Impressions: Service Date/Time: Saturday, August 26, 2017 15:51 - CONCLUSION: Diffuse infiltrate within the right lung consistent with possible pneumonia. Clinical correlation is recommended. Anthony Brewer MD CT Angiography 08/25/17 0751 Signed Impressions: Service Date/Time: Friday, August 25, 2017 09:13 - CONCLUSION: No evidence of PE. Multifocal airspace consolidation identified throughout the right hemithorax and within the anteromedial aspect of the left upper lobe. Findings are consistent with an acute infectious process such as multifocal pneumonia.. Rin Velasquez MD Lower Extremity Ultrasound 08/25/17 0000 Signed Impressions: Service Date/Time: Friday, August 25, 2017 09:53 - CONCLUSION: Normal examination. Rin Velasquez MD Knee X-Ray 08/25/17 0000 Signed Impressions: Service Date/Time: Friday, August 25, 2017 09:31 - CONCLUSION: Unremarkable examination of the left knee. Rin Velasquez MD Objective Remarks GENERAL: NAD SKIN: Warm and dry. HEAD: Normocephalic. EYES: No scleral icterus. No injection or drainage. NECK: Supple, trachea midline. No JVD or lymphadenopathy. CARDIOVASCULAR: Regular rate and rhythm without murmurs, gallops, or rubs. port in place RESPIRATORY: Breath sounds decrease bilaterally. GASTROINTESTINAL: Abdomen soft, non-tender, nondistended. MUSCULOSKELETAL: No cyanosis, or edema. Right knee TTP with ROM BACK: Nontender without obvious deformity. No CVA tenderness. A/P Problem List: (1) T-cell lymphoma ICD Code: C85.90 - Non-Hodgkin lymphoma, unspecified, unspecified site (2) Multifocal pneumonia ICD Code: J18.9 - Pneumonia, unspecified organism Status: Acute (3) Failure of outpatient treatment ICD Code: Z78.9 - Other specified health status Status: Acute (4) Cough ICD Code: R05 - Cough Status: Acute Assessment and Plan 42-year-old man with Multifocal bilateral pneumonia Outpatient treatment failure Atypical pattern Currently on cefepime, vancomycin and azithromycin per infectious disease specialist s/p bronchoscopy pending cytology and culture reports Left knee pain Right knee MRI with finding of meniscal tear involving posterior horn of the medial meniscus, finding of subchondral bone infarct Appreciate input from orthopedic surgery; however at this time recommended medical management and follow up with sport medicine Lymphoma Immunocompromise Oncology input appreciate CHOP on hold Awaiting for transfer to Oncology dewitt Asthma No current exacerbation As needed albuterol Monitor for exacerbations DVT prophylaxis SCDs Db Smith MD Aug 27, 2017 11:54
[2017-08-27] MEDS ORDERED: VANCOMYCIN INJ 2,250 MG in SODIUM CHLORID 0.9% 500 ML INJ 500 ML IV SCH (15:00)
--- NOTE | 2017-08-27 15:42 | HHI.IDPN ---
Subjective Subjective Remarks Mr. 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 He reports he underwent 6 sessions of chemotherapy and Radiation therapy so far. He went into remission and CT PET scan from 06/2017 was clear. He follows with of Oncology. He continued on CHOP chemotherapy. Over the past week, he has had increasing shortness of breath and cough. He was managed at an urgent care center in [place]. He reports having trouble contacting office and due to worsening symptoms despite antibiotics he decided to come to the hospital. In the emergency department [facility] he was noted to have white count of 8.9, hemoglobin of 10.6 his chemistry was normal and his BNP was reportedly normal. Due to his history of being immune compromised due to his cancer therapy patient underwent a sepsis workup including blood cultures and a CT scan. The CT scan shows bilateral multifocal pneumonia but no evidence of PE. Patient was started on empiric antibiotics and infectious disease consulted for management of pneumonia in an immunocompromised patient who has failed oral antibiotics. Pulmonology has been consulted and Dr. Aleman will see the patient and schedule him for bronchoscopy in a.m. Patient was started on empiric ceftriaxone and azithromycin patient reports subjective fevers as well as left knee pain. Patient reports that he has tried Levaquin and steroids by the urgent care with notch much response. Patient reports persistent knee pain as well as peripheral neuropathy symptoms in his left foot more prominently. He denies any urinary complaints he denies any bowel bladder complaints. He denies any headaches. Overnight events reviewed s/p bronch dw : no bronchial or alveolar inflammation. No secretions. No fever Normal WBC No rash No diarrhea Left knee pain better. Still on O2 4L NC. Antibiotics Cefepime IV Azithro IV Vanco IV Lines Line sites with no e.o infection Past Medical History reviewed Allergies: Coded Allergies: No Known Allergies (Unverified , 08/25/17) Objective . Vital Signs Date Time Temp Pulse Resp B/P (MAP) Pulse Ox O2 Delivery O2 Flow Rate FiO2 08/27/17 12:14 98.5 86 20 124/75 (91) 92 08/27/17 11:09 92 08/27/17 08:33 98.5 96 20 148/89 (108) 95 08/27/17 04:50 98.1 92 17 141/85 (103) 96 08/27/17 00:30 97.6 92 17 124/75 (91) 97 08/26/17 20:30 97.8 105 18 127/68 (87) 97 08/26/17 16:35 97.9 96 20 104/59 (74) 92 08/26/17 16:25 92 20 120/73 (89) 96 Nasal Cannula 4 08/26/17 16:15 86 20 115/68 (84) 94 Nasal Cannula 4 08/26/17 16:00 93 20 119/66 (83) 96 Nasal Cannula 4 08/26/17 15:45 98.7 107 20 137/75 (95) 92 Simple Mask 8 08/27/17 08/27/17 08/28/17 15:00 23:00 07:00 Intake Total 350 ml Balance 350 ml IV Total 350 ml . Laboratory Tests Test 08/26/17 07:14 White Blood Count 10.2 TH/MM3 Red Blood Count 3.91 MIL/MM3 Hemoglobin 11.1 GM/DL Hematocrit 33.5 % Mean Corpuscular Volume 85.7 FL Mean Corpuscular Hemoglobin 28.3 PG Mean Corpuscular Hemoglobin Concent 33.0 % Red Cell Distribution Width 19.2 % Platelet Count 245 TH/MM3 Mean Platelet Volume 7.6 FL Neutrophils (%) (Auto) 95.6 % Lymphocytes (%) (Auto) 1.6 % Monocytes (%) (Auto) 2.5 % Eosinophils (%) (Auto) 0.0 % Basophils (%) (Auto) 0.3 % Neutrophils # (Auto) 9.8 TH/MM3 Lymphocytes # (Auto) 0.2 TH/MM3 Monocytes # (Auto) 0.3 TH/MM3 Eosinophils # (Auto) 0.0 TH/MM3 Basophils # (Auto) 0.0 TH/MM3 CBC Comment AUTO DIFF Differential Comment AUTO DIFF CONFIRMED Platelet Estimate NORMAL Platelet Morphology Comment NORMAL Tear Drop Cells 1+ Ovalocytes 1+ Laboratory Tests Test 08/26/17 07:14 08/27/17 04:48 Blood Urea Nitrogen 15 MG/DL Creatinine 0.74 MG/DL 0.83 MG/DL Random Glucose 155 MG/DL Total Protein 7.1 GM/DL Albumin 3.0 GM/DL Calcium Level 9.1 MG/DL Alkaline Phosphatase 61 U/L Aspartate Amino Transf (AST/SGOT) 16 U/L Alanine Aminotransferase (ALT/SGPT) 50 U/L Total Bilirubin 0.5 MG/DL Sodium Level 137 MEQ/L Potassium Level 4.1 MEQ/L Chloride Level 103 MEQ/L Carbon Dioxide Level 25.5 MEQ/L Anion Gap 9 MEQ/L Estimat Glomerular Filtration Rate 116 ML/MIN 102 ML/MIN Microbiology Date/Time Source Procedure Growth Status 08/25/17 08:00 Blood Peripheral Aerobic Blood Culture - Preliminary NO GROWTH IN 2 DAYS Resulted 08/25/17 08:00 Blood Peripheral Anaerobic Blood Culture - Preliminary NO GROWTH IN 2 DAYS Resulted 08/25/17 07:55 Blood Peripheral Aerobic Blood Culture - Preliminary NO GROWTH IN 2 DAYS Resulted 08/25/17 07:55 Blood Peripheral Anaerobic Blood Culture - Preliminary NO GROWTH IN 2 DAYS Resulted 08/26/17 16:01 Bronchial Washings Other Acid Fast Stain Pending Received 08/26/17 16:01 Bronchial Washings Other Mycobacterial Culture Pending Received 08/26/17 15:10 Bronchial Washings Other Fungal Smear - Final NO FUNGAL ELEMENTS SEEN. Resulted 08/26/17 15:10 Bronchial Washings Other Fungal Culture Pending Resulted 08/26/17 15:10 Bronchial Washings Other Gram Stain - Final Resulted 08/26/17 15:10 Bronchial Washings Other Bronchial Culture - Preliminary NO GROWTH IN 24 HOURS. Resulted 08/26/17 15:10 Bronchial Washings Other Fungal Smear - Final NO FUNGAL ELEMENTS SEEN. Resulted 08/26/17 15:10 Bronchial Washings Other Fungal Culture Pending Resulted 08/26/17 15:10 Bronchial Washings Other Acid Fast Stain Pending Received 08/26/17 15:10 Bronchial Washings Other Mycobacterial Culture Pending Received 08/26/17 15:10 Bronchial Washings Other Gram Stain - Final Resulted 08/26/17 15:10 Bronchial Washings Other Bronchial Culture - Preliminary NO GROWTH IN 24 HOURS. Resulted 08/25/17 17:00 Sputum Expectorated Sputum Gram Stain - Final Complete 08/25/17 17:00 Sputum Expectorated Sputum Sputum Culture - Final HEAVY GROWTH NORMAL RESPIRATORY TYRON Complete 08/26/17 15:10 Other Pending Received Imaging Last Impressions Knee MRI 08/26/17 0600 Signed Impressions: Service Date/Time: Saturday, August 26, 2017 08:27 - CONCLUSION: 1. Meniscal tear involving the posterior horn of the medial meniscus which extends to the inferior articular surface. 2. 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 3. Small knee joint effusion. 4. Bone infarct involving the distal femoral metadiaphysis. Anthony Brewer MD Chest X-Ray 08/26/17 0000 Signed Impressions: Service Date/Time: Saturday, August 26, 2017 15:51 - CONCLUSION: Diffuse infiltrate within the right lung consistent with possible pneumonia. Clinical correlation is recommended. Anthony Brewer MD CT Angiography 08/25/17 0751 Signed Impressions: Service Date/Time: Friday, August 25, 2017 09:13 - CONCLUSION: No evidence of PE. Multifocal airspace consolidation identified throughout the right hemithorax and within the anteromedial aspect of the left upper lobe. Findings are consistent with an acute infectious process such as multifocal pneumonia.. Rin Velasquez MD Lower Extremity Ultrasound 08/25/17 0000 Signed Impressions: Service Date/Time: Friday, August 25, 2017 09:53 - CONCLUSION: Normal examination. Rin Velasquez MD Knee X-Ray 08/25/17 0000 Signed Impressions: Service Date/Time: Friday, August 25, 2017 09:31 - CONCLUSION: Unremarkable examination of the left knee. Rin Velasquez MD Physical Exam GENERAL: This is a well-nourished, well-developed patient, in no apparent distress. SKIN: No rashes, ecchymoses or lesions. Cool and dry. Bald. HEAD: Atraumatic. Normocephalic. No temporal or scalp tenderness. EYES: Pupils equal round and reactive. Extraocular motions intact. No scleral icterus. No injection or drainage. ENT: Nose without bleeding, purulent drainage or septal hematoma. Throat without erythema, tonsillar hypertrophy or exudate. Uvula midline. Airway patent. NECK: Trachea midline. Supple, nontender, no meningeal signs. CARDIOVASCULAR: Hs audible. RESPIRATORY: Clear to auscultation. Breath sounds equal bilaterally. GASTROINTESTINAL: Abdomen soft, non-tender, nondistended. MUSCULOSKELETAL: Extremities without clubbing, cyanosis, or edema. NEUROLOGICAL: Awake and alert. Cranial nerves II through XII intact. Motor and sensory grossly within normal limits. Five out of 5 muscle strength in all muscle groups. Normal speech. Psych cooperative IV line sites with no e.o infection. Port site ok with no e.o infection. Assessment & Plan Remarks Sepsis ruled out. Pneumonia nonresponsive to oral antibiotics. Differential diagnosis includes flu as well as PCP. Possible viral pneumonia influenza related T-cell lymphoblastic leukemia at risk for T-cell related infections such as tuberculosis and fungal infections Check immunoglobulins possible low pre-disposing him to infections Port in place Recommendations DC cefepime IV DC vancomycin IV DC azithromycin Dc Diflucan Start Voriconazole tonight after all fungal tests collected. Await PCP stain and cytology. Negative respiratory panel including Flu PCR. Dw and : Will send fungal serologies. Urine histo Ag Serum Histo and Crypto Ag. Fungal and AFB blood cultures. Follow 2D ECHO. Dw would wait on Lung biopsy for now pending workup and response to Voriconazole. Check LDH and follow PCP. May consider Bactrim for PCP empiric if LDH high Check Procalcitonin if negative then rules out bacterial infections. If positive non conclusive as patient has underlying malignancy and it can be falsely high. Dw patient the plan for the day. He had lot of questions I answered to the best of my ability. I also informed him of infections, chemical reaction to Chemo agents and Lymphoma related process as other possibilities if all workup negative and non response to treatment for PCP and Fungi. Dw him in that case the last resort would be open lung biopsy which we would like to avoid at present time. This did make him anxious but he said he was glad I explained all possibilities. Dagoberto RN: to get port accessed for all the blood work and to avoid PIV use as patient is frustrated with pricks for blood draws and prefers use of port. Time spent in excess of 50 mins. Critical thinking and decision making. dagoberto other MDs review of MAR etc. Sarah Dwyer MD Aug 27, 2017 15:42
--- NOTE | 2017-08-27 16:23 | ECHRPT ---
Indication: Acute and subacute infective endocarditis CONCLUSIONS Technically very difficult study. The left ventricular systolic function is normal with an estimate d ejection fraction in the range of 55-60%. Regional wall motion abnormalities cannot be completely excluded. Wall thickness is measured at the upper limits of normal. Normal left ventricular size. There is mild tricuspid valve regurgitation. The estimated pulmonary arterial pressure is 30 mmHg. BP: 134 / 77 HR: 89 Rhythm: Sinus MEASUREMENTS (Male / Female) Normal Values Technical Quality:Fair 2D ECHO LV Diastolic Diameter PLAX 5.0 cm 4.2 - 5.9 / 3.9 - 5.3 cm LV Systolic Diameter PLAX 3.8 cm IVS Diastolic Thickness 1.0 cm 0.6 - 1.0 / 0.6 - 0.9 cm LVPW Diastolic Thickness 1.1 cm 0.6 - 1.0 / 0.6 - 0.9 cm LV Relative Wall Thickness 0.4 LVOT Diameter 2.5 cm M-MODE Aortic Root Diameter MM 2.8 cm LA Systolic Diameter MM 3.9 cm LA Ao Ratio MM 1.4 AV Cusp Separation MM 2.0 cm DOPPLER AV Peak Velocity 138.0 cm/s AV Peak Gradient 7.6 mmHg LVOT Peak Velocity 107.0 cm/s LVOT Peak Gradient 4.6 mmHg AV Area Cont Eq pk 3.8 cm Mitral E Point Velocity 100.0 cm/s Mitral A Point Velocity 112.0 cm/s Mitral E to A Ratio 0.9 LV E' Lateral Velocity 10.0 cm/s Mitral E to LV E' Lateral Ratio 10.0 LV E' Septal Velocity 7.4 cm/s Mitral E to LV E' Septal Ratio 13.5 TR Peak Velocity 224.0 cm/s TR Peak Gradient 20.1 mmHg Right Atrial Pressure 10.0 mmHg Pulmonary Artery Systolic Pressu 30.1 mmHg Right Ventricular Systolic Press 30.1 mmHg PV Peak Velocity 138.0 cm/s PV Peak Gradient 7.6 mmHg FINDINGS LEFT VENTRICLE Technically very difficult study. The left ventricular systolic function is normal with an estimate d ejection fraction in the range of 55-60%. Regional wall motion abnormalities cannot be completely excluded. Wall thickness is measured at the upper limits of normal. Normal left ventricular size. RIGHT VENTRICLE Normal right ventricular size and systolic function. LEFT ATRIUM The left atrial size is normal. RIGHT ATRIUM The right atrial size is normal. ATRIAL SEPTUM Normal atrial septal thickness without atrial level shunting by limited color doppler interrogation. AORTA The aortic root and proximal ascending aorta are normal in size on limited imaging. MITRAL VALVE Structurally normal mitral valve. No mitral valve stenosis or regurgitation. AORTIC VALVE Trileaflet aortic valve. No aortic valve stenosis or regurgitation. TRICUSPID VALVE There is mild tricuspid valve regurgitation. The estimated pulmonary arterial pressure is 30 mmHg. PULMONARY VALVE No pulmonary valve regurgitation or stenosis. VESSELS The inferior vena cava is normal in size. PERICARDIUM No pericardial effusion. Lanre Hoover MD (Electronically Signed) Final Date:27 August 2017 16:22
[2017-08-27] MEDS: ENOXAPARIN SODIUM 40 MG/0.4 ML SYRINGE SQ SCH (16:29)
--- NOTE | 2017-08-27 17:23 | RADRPT ---
EXAM DATE/TIME: 08/27/2017 16:28 [facility] COMPARISON: CHEST SINGLE AP, August 26, 2017, 15:51. INDICATIONS : Short of breath, evaluate for pneumonia. MEDICAL HISTORY : None. SURGICAL HISTORY : None. ENCOUNTER: Initial ACUITY: 1 day PAIN SCORE: 0/10 LOCATION: Bilateral chest FINDINGS: Left subclavian [id number] with tip in the atriocaval junction. Improving diffuse airspace disease throughout the right lung. Cardiomediastinal contours are stable. Remainder of the exam is unchanged . CONCLUSION: 1. Improved diffuse airspace disease throughout the right lung. Ash Stover MD on August 27, 2017 at 17:20 Board Certified Radiologist. This report was verified electronically.
--- NOTE | 2017-08-27 20:34 | HHI.PR ---
Subjective Remarks 42 YOWM with T cell lymphoma, on CHOP therapy has bilat lung infilt, R>L Had Bronch no secretions, erythema or endobronchial lesion Feels better Bronch cultures neg DW and Objective Vital Signs Vital Signs Date Time Temp Pulse Resp B/P (MAP) Pulse Ox O2 Delivery O2 Flow Rate FiO2 08/27/17 16:40 98.4 97 20 133/84 (100) 92 08/27/17 12:14 98.5 86 20 124/75 (91) 92 08/27/17 11:09 92 08/27/17 08:33 98.5 96 20 148/89 (108) 95 08/27/17 04:50 98.1 92 17 141/85 (103) 96 08/27/17 00:30 97.6 92 17 124/75 (91) 97 I/O 08/26/17 08/26/17 08/26/17 08/27/17 08/27/17 08/27/17 07:00 15:00 23:00 07:00 15:00 23:00 Intake Total 350 ml 200 ml 480 ml 930 ml Balance 350 ml 200 ml 480 ml 930 ml Intake Oral 480 ml 580 ml IV Total 350 ml 200 ml 350 ml # Voids 3 3 4 3 # Bowel Movements 1 Result Diagram: 08/26/17 0714 08/27/17 0448 Objective Remarks GENERAL: WBWN WM, NAD SKIN: Warm and dry. HEAD: Normocephalic. EYES: No scleral icterus. No injection or drainage. NECK: Supple, trachea midline. No JVD or lymphadenopathy. CARDIOVASCULAR: Regular rate and rhythm without murmurs, gallops, or rubs. RESPIRATORY: Breath sounds equal bilaterally. No accessory muscle use. GASTROINTESTINAL: Abdomen soft, non-tender, nondistended. MUSCULOSKELETAL: No cyanosis, or edema. BACK: Nontender without obvious deformity. No CVA tenderness. A/P Assessment and Plan IMPRESSION: 1. Extensive bilateral infiltrates, more on the right lung than on the left. Need to rule out community-acquired pneumonia or other opportunistic infection. 2. T-cell lymphoma. He is on CHOP chemotherapy. 3. Bronchial asthma. PLAN: Check bronch results Cont Abx per ID Stable on RA CXR in Francis Arroyo MD Aug 27, 2017 20:34
[2017-08-27] MEDS: ALPRAZolam 0.25 MG TAB PO PRN (20:46)
--- NOTE | 2017-08-27 21:06 | RADRPT ---
EXAM DATE/TIME: 08/27/2017 21:00 [facility] COMPARISON: CHEST SINGLE AP, August 27, 2017, 16:28. INDICATIONS : Shortness of breath. MEDICAL HISTORY : Lymphoma SURGICAL HISTORY : Port placement ENCOUNTER: Subsequent ACUITY: 1 day PAIN SCORE: 0/10 LOCATION: Bilateral chest FINDINGS: PA and lateral views of the chest were obtained and again demonstrate the left subclavian implantable catheter. Patchy infiltrate is again noted in the right lung which appears mildly increased from the prior study. The left lung is clear. The heart size is within normal limits and there is no evidence of an effusion. Bony thorax is intact. CONCLUSION: Apparent mild interval increase in right lung infiltrate. Terence Dominguez MD on August 27, 2017 at 21:03 Board Certified Radiologist. This report was verified electronically.
[2017-08-27] MEDS ORDERED: TEMAZEPAM 7.5 MG CAP PO ONE (22:15)
[2017-08-27] MEDS ORDERED: oxyCODONE/ACETAMINOPHEN 10 MG/325 MG TAB PO ONE (22:15)
[2017-08-28] VITALS (12 sets, daily range): BP systolic 118–137; BP diastolic 71–95; PULSE 80–109; RESP 16–20; TEMP 98.1–99.2; O2SAT 92–94
[2017-08-28] MEDS: MORPHINE SULFATE 2 MG/ML SYRINGE IV PUSH PRN ×3 (01:12→09:30)
[2017-08-28] MEDS: ALPRAZolam 0.25 MG TAB PO PRN (05:45)
[2017-08-28] MEDS ORDERED: SULFAMETHOX/TRIMETHOPRIM 160 MG/10 ML VIAL IV SCH (08:45)
[2017-08-28] MEDS: DOCUSATE SODIUM 100 MG CAP PO SCH ×2 (09:27→21:37)
[2017-08-28] MEDS: LACTOBACILLUS ACIDOPHILUS TAB PO SCH ×3 (09:27→17:38)
[2017-08-28] MEDS: SODIUM CHLORIDE 0.9% FLUSH 10 ML FLUSH IV FLUSH SCH ×2 (09:28→21:38)
[2017-08-28] MEDS: methylPREDNISolone SOD SUCC 40 MG/1 ML VIAL IV PUSH SCH ×2 (09:28→21:38)
--- NOTE | 2017-08-28 10:51 | HHI.PR ---
Subjective Remarks Follow-up multifocal bilateral pneumonia 08/26/17-patient seen and examined, currently nothing by mouth pending bronchoscopy .Afebrile 08/27/17-patient seen and examined, still with significant shortness of breath. Bronchoscopy performed yesterday 08/28/17-patient seen and examined, now on Voriconazole as all abx been discontinued; Still with respiratory depression, nonproductive cough. Afebrile. Also complains of now right knee pain Objective Vitals Vital Signs Date Time Temp Pulse Resp B/P (MAP) Pulse Ox O2 Delivery O2 Flow Rate FiO2 08/28/17 07:44 98.1 89 20 121/71 (88) 92 08/28/17 05:53 18 08/28/17 00:39 98.1 94 18 137/88 (104) 94 08/27/17 23:41 18 08/27/17 21:03 97.7 99 18 128/81 (97) 94 08/27/17 16:40 98.4 97 20 133/84 (100) 92 08/27/17 12:14 98.5 86 20 124/75 (91) 92 08/27/17 11:09 92 I/O 08/27/17 08/27/17 08/27/17 08/28/17 08/28/17 08/28/17 06:59 14:59 22:59 06:59 14:59 22:59 Intake Total 480 ml 930 ml Balance 480 ml 930 ml Intake Oral 480 ml 580 ml IV Total 350 ml # Voids 4 3 1 1 Result Diagram: 08/26/17 0714 08/27/17 0448 Imaging Last Impressions Chest X-Ray 08/27/17 0000 Signed Impressions: Service Date/Time: Sunday, August 27, 2017 21:00 - CONCLUSION: Apparent mild interval increase in right lung infiltrate. Terence Dominguez MD Knee MRI 08/26/17 0600 Signed Impressions: Service Date/Time: Saturday, August 26, 2017 08:27 - CONCLUSION: 1. Meniscal tear involving the posterior horn of the medial meniscus which extends to the inferior articular surface. 2. 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 3. Small knee joint effusion. 4. Bone infarct involving the distal femoral metadiaphysis. Anthony Brewer MD CT Angiography 08/25/17 0751 Signed Impressions: Service Date/Time: Friday, August 25, 2017 09:13 - CONCLUSION: No evidence of PE. Multifocal airspace consolidation identified throughout the right hemithorax and within the anteromedial aspect of the left upper lobe. Findings are consistent with an acute infectious process such as multifocal pneumonia.. Rin Velasquez MD Lower Extremity Ultrasound 08/25/17 0000 Signed Impressions: Service Date/Time: Friday, August 25, 2017 09:53 - CONCLUSION: Normal examination. Rin Velasquez MD Knee X-Ray 08/25/17 0000 Signed Impressions: Service Date/Time: Friday, August 25, 2017 09:31 - CONCLUSION: Unremarkable examination of the left knee. Rin Velasquez MD Objective Remarks GENERAL: NAD SKIN: Warm and dry. HEAD: Normocephalic. EYES: No scleral icterus. No injection or drainage. NECK: Supple, trachea midline. No JVD or lymphadenopathy. CARDIOVASCULAR: Regular rate and rhythm without murmurs, gallops, or rubs. port in place RESPIRATORY: Breath sounds decrease bilaterally. GASTROINTESTINAL: Abdomen soft, non-tender, nondistended. MUSCULOSKELETAL: No cyanosis, or edema. Right knee TTP with ROM BACK: Nontender without obvious deformity. No CVA tenderness. A/P Problem List: (1) T-cell lymphoma ICD Code: C85.90 - Non-Hodgkin lymphoma, unspecified, unspecified site (2) Multifocal pneumonia ICD Code: J18.9 - Pneumonia, unspecified organism Status: Acute (3) Failure of outpatient treatment ICD Code: Z78.9 - Other specified health status Status: Acute (4) Cough ICD Code: R05 - Cough Status: Acute Assessment and Plan 42-year-old man with Multifocal bilateral pneumonia Outpatient treatment failure Atypical pattern Non responding to Antibiotics Currently on Voriconazole per ID pending further workups and labs s/p bronchoscopy pending cytology , however no secretion, erythema and endobronchial lesion per Pulmonary medicine B knees pain Right knee MRI with finding of meniscal tear involving posterior horn of the medial meniscus, finding of subchondral bone infarct Appreciate input from orthopedic surgery; however at this time recommended medical management and follow up with sport medicine Lymphoma Immunocompromise Oncology input appreciate CHOP on hold Asthma No current exacerbation As needed albuterol Monitor for exacerbations DVT prophylaxis SCDs Db Smith MD Aug 28, 2017 10:51
[2017-08-28] MEDS: VORICONAZOLE 200 MG TAB PO SCH ×2 (11:20→21:37)
--- NOTE | 2017-08-28 11:34 | PD.ONC.PN ---
Subjective Subjective Remarks Afebrile overnight. Patient resting in bed. still has pain with deep breath. also complaining of pain in both knees. Objective Data Date Time Temp Pulse Resp B/P (MAP) Pulse Ox O2 Delivery O2 Flow Rate FiO2 08/28/17 07:44 98.1 89 20 121/71 (88) 92 08/28/17 05:53 18 08/28/17 00:39 98.1 94 18 137/88 (104) 94 08/27/17 23:41 18 08/27/17 21:03 97.7 99 18 128/81 (97) 94 08/27/17 16:40 98.4 97 20 133/84 (100) 92 08/27/17 12:14 98.5 86 20 124/75 (91) 92 Result Diagram: 08/26/17 0714 08/27/17 0448 Laboratory Results Laboratory Tests Test 08/27/17 16:00 08/27/17 21:35 08/27/17 23:15 Urine Eosinophils NONE SEEN /HPF Procalcitonin 0.07 ng/mL Lactate Dehydrogenase 401 U/L Culture Results Microbiology Date/Time Source Procedure Growth Status 08/28/17 07:55 Blood Other Aerobic Blood Culture Pending Received 08/28/17 07:55 Blood Other Anaerobic Blood Culture Pending Received 08/28/17 07:55 Blood Other Blood Fungal Culture Pending Received 08/28/17 07:55 Blood Other Blood Fungal Culture Pending Received 08/27/17 23:15 Blood Other Mycobacterial Culture Pending Received 08/26/17 15:10 Bronchial Washings Other Fungal Smear - Final NO FUNGAL ELEMENTS SEEN. Resulted 08/26/17 15:10 Bronchial Washings Other Fungal Culture Pending Resulted 08/26/17 15:10 Bronchial Washings Other Acid Fast Stain Pending Worksheet 08/26/17 15:10 Bronchial Washings Other Mycobacterial Culture Pending Worksheet 08/26/17 15:10 Bronchial Washings Other Gram Stain - Final Complete 08/26/17 15:10 Bronchial Washings Other Bronchial Culture - Final MODERATE GROWTH NORMAL RESPIRATORY TYRON Complete 08/26/17 15:10 Bronchial Washings Other Fungal Smear - Final NO FUNGAL ELEMENTS SEEN. Resulted 08/26/17 15:10 Bronchial Washings Other Fungal Culture Pending Resulted 08/26/17 15:10 Bronchial Washings Other Acid Fast Stain Pending Received 08/26/17 15:10 Bronchial Washings Other Mycobacterial Culture Pending Received 08/26/17 15:10 Bronchial Washings Other Gram Stain - Final Complete 08/26/17 15:10 Bronchial Washings Other Bronchial Culture - Final LIGHT GROWTH NORMAL RESPIRATORY TYRON Complete 08/25/17 17:00 Sputum Expectorated Sputum Gram Stain - Final Complete 08/25/17 17:00 Sputum Expectorated Sputum Sputum Culture - Final HEAVY GROWTH NORMAL RESPIRATORY TYRON Complete 08/27/17 16:00 Urine Random Urine Legionella Antigen - Final PRESUMPTIVE NEGATIVE FOR LEGIONELLA P... Complete 08/26/17 15:10 Other Pending Received Administered Medications Medications (Trade) Dose Ordered Sig/Suzan Route PRN Reason Start Time Stop Time Status Last Admin Dose Admin Sodium Chloride (NS Flush) 2 ml UNSCH PRN IV FLUSH FLUSH AFTER USING IV ACCESS 08/25/17 10:00 08/25/17 11:45 Sodium Chloride (NS Flush) 2 ml BID IV FLUSH 08/25/17 21:00 08/28/17 09:28 Lactobacillus Acidophilus (Lactinex) 1 tab TID PO 08/25/17 13:00 08/28/17 09:27 Methylprednisolone Sodium Succinate (SoluMEDROL INJ) 40 mg Q12HR IV PUSH 08/25/17 21:00 08/28/17 09:28 Docusate Sodium (Colace) 100 mg BID PO 08/25/17 21:00 08/28/17 09:27 Enoxaparin Sodium (Lovenox Inj) 40 mg Q24H SQ 08/25/17 16:00 08/27/17 16:29 Alprazolam (Xanax) 0.25 mg Q6H PRN PO Anxiety 08/25/17 15:30 08/28/17 05:45 Voriconazole (Vfend) 200 mg Q12HR PO 08/28/17 10:45 08/28/17 11:20 Objective Remarks GENERAL: Middle aged male, upright in bed. SKIN: Warm and dry. port accessed, left chest wall. HEAD: Normocephalic. EYES: no injection or drainage. NECK: Supple, trachea midline. CARDIOVASCULAR: Regular rate and rhythm RESPIRATORY: Breath sounds equal bilaterally. No accessory muscle use. GASTROINTESTINAL: Abdomen soft, non-tender, nondistended. EXTREMITIES: No cyanosis NEUROLOGICAL: no obvious focal deficit. Assessment/Plan Problem List: (1) T-cell lymphoma ICD Codes: C85.90 - Non-Hodgkin lymphoma, unspecified, unspecified site Plan: --responded to CHOP chemotherapy. --went into remission and CT PET scan from 06/2017 was clear. --will place treatment on hold until resolution of lung infection. (2) Multifocal pneumonia ICD Codes: J18.9 - Pneumonia, unspecified organism Status: Acute Plan: --pulmonology following and s/p bronchoscopy --BC no growth --on antibiotics per ID --bronchial washings pending. Assessment 42y/o male with h/o T-cell lymphoma, admitted with pneumonia. h/o Asthma. History of herniated disk. History of pneumonia. Plan 1. continue antibiotics 2. add morphine 5mg IV q 4 hours PRN pain 7-10 3. continue supportive care Attending Statement The exam, history, and the medical decision-making described in the above note were completed with the assistance of the mid-level provider. I reviewed and agree with the findings presented. I attest that I had a [id number] encounter with the patient on the same day, and personally performed and documented my assessment and findings in the medical record. Doing better w/ Morphine. L knee in a straight brace. As discussed w/ pulmonary and ID, abx treatment to be guided by results of culture, biopsy, concern for atypical infection in light of immunosuppression from chemo/T cell disease, and laboratory work up. Cont Voriconazole and Bactrim. Clinically and radiographically improve. Anticipate DC with disposition and plan from ID and pulmonary. We discussed coordinating fu CT as out patient. Work up for L knee as out pt. Chemo on hold until resolution of infection. Doris Liu Aug 28, 2017 11:34 Aysha Leigh MD Aug 28, 2017 18:34
[2017-08-28] MEDS: SULFAMETHOX IV SCH ×4 (12:15→19:58)
[2017-08-28] MEDS: DEXTROSE 5% IV SCH ×4 (12:15→19:58)
[2017-08-28] MEDS: WATE IV SCH ×4 (12:15→19:58)
[2017-08-28] MEDS: TRIMETHOPRIM IV SCH ×4 (12:15→19:58)
[2017-08-28] MEDS: MORPHINE SULFATE 8 MG/ML INJ IV PUSH PRN ×3 (13:33→21:46)
[2017-08-28] MEDS: ENOXAPARIN SODIUM 40 MG/0.4 ML SYRINGE SQ SCH (17:38)
--- NOTE | 2017-08-28 21:04 | HHI.PR ---
Subjective Remarks 42 YOWM with T cell lymphoma, on CHOP therapy has bilat lung infilt, R>L Had Bronch no secretions, erythema or endobronchial lesion Feels better Bronch cultures neg Breathing better CXR improving Objective Vital Signs Vital Signs Date Time Temp Pulse Resp B/P (MAP) Pulse Ox O2 Delivery O2 Flow Rate FiO2 08/28/17 20:13 94 21 08/28/17 20:02 99.2 109 20 126/95 (105) 94 08/28/17 16:12 98.2 109 20 132/92 (105) 92 08/28/17 11:45 98.4 100 20 118/75 (89) 92 08/28/17 07:44 98.1 89 20 121/71 (88) 92 08/28/17 05:53 18 08/28/17 00:39 98.1 94 18 137/88 (104) 94 08/27/17 23:41 18 I/O 08/27/17 08/27/17 08/27/17 08/28/17 08/28/17 08/28/17 07:00 15:00 23:00 07:00 15:00 23:00 Intake Total 480 ml 930 ml 530 ml Balance 480 ml 930 ml 530 ml Intake Oral 480 ml 580 ml IV Total 350 ml 530 ml # Voids 4 3 1 1 Result Diagram: 08/26/17 0714 08/27/17 0448 Objective Remarks GENERAL: WBWN WM, NAD SKIN: Warm and dry. HEAD: Normocephalic. EYES: No scleral icterus. No injection or drainage. NECK: Supple, trachea midline. No JVD or lymphadenopathy. CARDIOVASCULAR: Regular rate and rhythm without murmurs, gallops, or rubs. RESPIRATORY: Breath sounds equal bilaterally. No accessory muscle use. GASTROINTESTINAL: Abdomen soft, non-tender, nondistended. MUSCULOSKELETAL: No cyanosis, or edema. BACK: Nontender without obvious deformity. No CVA tenderness. A/P Assessment and Plan IMPRESSION: 1. Extensive bilateral infiltrates, more on the right lung than on the left. Need to rule out community-acquired pneumonia or other opportunistic infection. 2. T-cell lymphoma. He is on CHOP chemotherapy. 3. Bronchial asthma. PLAN: Check bronch results Stable on RA Cont Voriconazole per Francis Alvarado MD Aug 28, 2017 21:04
[2017-08-28] MEDS: TEMAZEPAM 7.5 MG CAP PO PRN (21:38)
[2017-08-29] VITALS (21 sets, daily range): BP systolic 121–134; BP diastolic 56–92; PULSE 80–132; RESP 17–20; TEMP 97.5–98.4; O2SAT 92–94
[2017-08-29] MEDS: MORPHINE SULFATE 2 MG/ML SYRINGE IV PUSH PRN ×2 (00:48→10:19)
[2017-08-29] MEDS: ALPRAZolam 0.25 MG TAB PO PRN (00:48)
[2017-08-29] MEDS: MORPHINE SULFATE 8 MG/ML INJ IV PUSH PRN ×5 (01:51→21:51)
[2017-08-29] MEDS: WATE IV SCH ×4 (04:21→11:34)
[2017-08-29] MEDS: SULFAMETHOX IV SCH ×4 (04:21→11:34)
[2017-08-29] MEDS: DEXTROSE 5% IV SCH ×4 (04:21→11:34)
[2017-08-29] MEDS: TRIMETHOPRIM IV SCH ×4 (04:21→11:34)
[2017-08-29] MEDS: DOCUSATE SODIUM 100 MG CAP PO SCH ×2 (08:39→20:44)
[2017-08-29] MEDS: methylPREDNISolone SOD SUCC 40 MG/1 ML VIAL IV PUSH SCH ×2 (08:39→20:45)
[2017-08-29] MEDS: LACTOBACILLUS ACIDOPHILUS TAB PO SCH ×3 (08:39→17:28)
--- NOTE | 2017-08-29 09:21 | PD.ONC.PN ---
Subjective Subjective Remarks Afebrile overnight. Patient states he has been having generalized bone pain, in addition to his bilateral knee pain. he requests adding tylenol to his medication list, as this has helped the bone pain at home. he also wants to try ativan instead of xanax, as he feels the former helps him more than the latter. Objective Data Date Time Temp Pulse Resp B/P (MAP) Pulse Ox O2 Delivery O2 Flow Rate FiO2 08/29/17 08:52 98.4 92 20 121/84 (96) 93 08/29/17 07:57 132 08/29/17 06:00 82 08/29/17 05:37 18 08/29/17 05:00 106 08/29/17 04:20 97.5 98 20 123/92 (102) 94 08/29/17 04:02 80 08/29/17 03:00 86 08/29/17 02:00 94 08/29/17 01:00 90 08/29/17 00:56 96 Nasal Cannula 2.00 08/29/17 00:54 22 08/29/17 00:40 100 131/56 (81) 08/29/17 00:06 80 08/28/17 23:01 98.3 98 16 130/85 (100) 93 08/28/17 23:00 106 08/28/17 22:00 108 08/28/17 21:00 96 08/28/17 20:13 94 21 08/28/17 20:02 99.2 109 20 126/95 (105) 94 08/28/17 20:01 80 08/28/17 19:00 100 08/28/17 16:12 98.2 109 20 132/92 (105) 92 08/28/17 11:45 98.4 100 20 118/75 (89) 92 08/29/17 08/29/17 08/29/17 07:00 15:00 23:00 Output Total 400 ml Balance -400 ml Result Diagram: 08/26/17 0714 08/27/17 0448 Laboratory Results Laboratory Tests Test 08/28/17 11:22 08/28/17 11:55 Blood Gas Puncture Site LT RADIAL Blood Gas Patient Temperature 98.6 Blood Gas HCO3 29 mmol/L Blood Gas Base Excess 5.1 mmol/L Blood Gas Oxygen Saturation 90 % Arterial Blood pH 7.48 Arterial Blood Partial Pressure CO2 39 mmHg Arterial Blood Partial Pressure O2 61 mmHg Arterial Blood Oxygen Content 16.5 Vol % Arterial Blood Carboxyhemoglobin 1.9 % Arterial Blood Methemoglobin 0.8 % Blood Gas Hemoglobin 13.1 G/DL Blood Gas Inspired Oxygen 21 % Culture Results Microbiology Date/Time Source Procedure Growth Status 08/28/17 07:55 Blood Other Aerobic Blood Culture Pending Worksheet 08/28/17 07:55 Blood Other Anaerobic Blood Culture Pending Worksheet 08/28/17 07:55 Blood Other Blood Fungal Culture Pending Worksheet 08/28/17 07:55 Blood Other Blood Fungal Culture Pending Worksheet 08/27/17 23:15 Blood Other Mycobacterial Culture Pending Received 08/26/17 15:10 Bronchial Washings Other Fungal Smear - Final NO FUNGAL ELEMENTS SEEN. Resulted 08/26/17 15:10 Bronchial Washings Other Fungal Culture Pending Resulted 08/26/17 15:10 Bronchial Washings Other Acid Fast Stain - Final NO ACID FAST BACILLI SEEN Resulted 08/26/17 15:10 Bronchial Washings Other Mycobacterial Culture Pending Resulted 08/26/17 15:10 Bronchial Washings Other Gram Stain - Final Complete 08/26/17 15:10 Bronchial Washings Other Bronchial Culture - Final MODERATE GROWTH NORMAL RESPIRATORY TYRON Complete 08/26/17 15:10 Bronchial Washings Other Fungal Smear - Final NO FUNGAL ELEMENTS SEEN. Resulted 08/26/17 15:10 Bronchial Washings Other Fungal Culture Pending Resulted 08/26/17 15:10 Bronchial Washings Other Acid Fast Stain - Final NO ACID FAST BACILLI SEEN Resulted 08/26/17 15:10 Bronchial Washings Other Mycobacterial Culture Pending Resulted 08/26/17 15:10 Bronchial Washings Other Gram Stain - Final Complete 08/26/17 15:10 Bronchial Washings Other Bronchial Culture - Final LIGHT GROWTH NORMAL RESPIRATORY TYRON Complete 08/27/17 16:00 Urine Random Urine Legionella Antigen - Final PRESUMPTIVE NEGATIVE FOR LEGIONELLA P... Complete 08/26/17 15:10 Other Pending Received Administered Medications Medications (Trade) Dose Ordered Sig/Suzan Route PRN Reason Start Time Stop Time Status Last Admin Dose Admin Sodium Chloride (NS Flush) 2 ml UNSCH PRN IV FLUSH FLUSH AFTER USING IV ACCESS 08/25/17 10:00 08/25/17 11:45 Sodium Chloride (NS Flush) 2 ml BID IV FLUSH 08/25/17 21:00 08/28/17 21:38 Lactobacillus Acidophilus (Lactinex) 1 tab TID PO 08/25/17 13:00 08/29/17 08:39 Methylprednisolone Sodium Succinate (SoluMEDROL INJ) 40 mg Q12HR IV PUSH 08/25/17 21:00 08/29/17 08:39 Docusate Sodium (Colace) 100 mg BID PO 08/25/17 21:00 08/29/17 08:39 Enoxaparin Sodium (Lovenox Inj) 40 mg Q24H SQ 08/25/17 16:00 08/28/17 17:38 Voriconazole (Vfend) 200 mg Q12HR PO 08/28/17 10:45 08/28/17 21:37 Trimethoprim/ Sulfamethoxazole 480 mg/Dextrose 530 ml @ 353.333 mls/hr Q8H IV 08/28/17 12:00 08/29/17 04:21 Morphine Sulfate (Morphine Inj) 3 mg Q4H PRN IV PUSH Pain 3 to 6 08/28/17 14:00 08/29/17 00:48 Morphine Sulfate (Morphine Inj) 5 mg Q4H PRN IV PUSH PAIN SCALE 7 TO 10 08/28/17 11:30 08/29/17 05:32 Temazepam (Restoril) 7.5 mg HS PRN PO sleep 08/28/17 20:45 08/28/17 21:38 Objective Remarks GENERAL: Middle aged male, sitting up in bed in [facility]. SKIN: Warm and dry. port accessed, left chest wall, no bleeding, site clean. HEAD: Normocephalic. EYES: no injection or drainage. NECK: Supple, trachea midline. CARDIOVASCULAR: Regular rate and rhythm RESPIRATORY: Breath sounds equal bilaterally. No accessory muscle use. GASTROINTESTINAL: Abdomen soft, non-tender, nondistended. EXTREMITIES: No cyanosis NEUROLOGICAL: no focal deficit. 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 --went into remission and CT PET scan from 06/2017 was clear. (2) Multifocal pneumonia ICD Codes: J18.9 - Pneumonia, unspecified organism Status: Acute Plan: --on multiple antibiotics per infectious disease --pulmonology following and s/p bronchoscopy --BC no growth --bronchial washings pending. Assessment 42y/o male with h/o T-cell lymphoma, admitted with pneumonia. h/o Asthma. History of herniated disk. History of pneumonia. Plan 1. switch from xanax to ativan 2. start tylenol for pain 1-2 3. continue antibiotics, supportive care Attending Statement The exam, history, and the medical decision-making described in the above note were completed with the assistance of the mid-level provider. I reviewed and agree with the findings presented. I attest that I had a [id number] encounter with the patient on the same day, and personally performed and documented my assessment and findings in the medical record. c/o bone pain early AM, now resolved. Intermittent. L knee brace still wearing it in bed, discussed taking it off for periods to avoid DVT. Cont DVt prophylaxis. Anticipate DC home tomorrow. OK for DC from heme/onc standpoint Clinically improved, breathing treatment helping, less tachycardic, no fever. Noted PCP tx DC'd, cont antifungal. Discussed w/ ID follow w/ out pt ID, repeat Cxray and CT. Plan to DC on Voriconazole and steroids. Pt already has apt next week. Appt w/ Amy BMT on 09/04. Doris Liu Aug 29, 2017 09:21 Aysha Leigh MD Aug 29, 2017 19:07
[2017-08-29] MEDS: ACETAMINOPHEN 325 MG TAB PO PRN (10:17)
[2017-08-29] MEDS: VORICONAZOLE 200 MG TAB PO SCH ×2 (10:17→20:44)
[2017-08-29] MEDS: SODIUM CHLORIDE 0.9% FLUSH 10 ML FLUSH IV FLUSH SCH ×2 (10:18→20:45)
[2017-08-29] MEDS: LORazepam 0.5 MG TAB PO PRN ×2 (11:33→18:37)
--- NOTE | 2017-08-29 13:47 | HHI.PR ---
Subjective Remarks feeling better up and ambulating voiding Objective Vitals Vital Signs Date Time Temp Pulse Resp B/P (MAP) Pulse Ox O2 Delivery O2 Flow Rate FiO2 08/29/17 11:41 98.4 82 18 126/90 (102) 94 08/29/17 09:21 92 21 08/29/17 08:52 98.4 92 20 121/84 (96) 93 08/29/17 07:57 132 08/29/17 06:00 82 08/29/17 05:37 18 08/29/17 05:00 106 08/29/17 04:20 97.5 98 20 123/92 (102) 94 08/29/17 04:02 80 08/29/17 03:00 86 08/29/17 02:00 94 08/29/17 01:00 90 08/29/17 00:56 96 Nasal Cannula 2.00 08/29/17 00:54 22 08/29/17 00:40 100 131/56 (81) 08/29/17 00:06 80 08/28/17 23:01 98.3 98 16 130/85 (100) 93 08/28/17 23:00 106 08/28/17 22:00 108 08/28/17 21:00 96 08/28/17 20:13 94 21 08/28/17 20:02 99.2 109 20 126/95 (105) 94 08/28/17 20:01 80 08/28/17 19:00 100 08/28/17 16:12 98.2 109 20 132/92 (105) 92 I/O 08/28/17 08/28/17 08/28/17 08/29/17 08/29/17 08/29/17 07:00 15:00 23:00 07:00 15:00 23:00 Intake Total 530 ml Output Total 400 ml Balance 530 ml -400 ml IV Total 530 ml Output Urine Total 400 ml # Voids 1 Result Diagram: 08/26/17 0714 08/27/17 0448 Imaging Last Impressions Chest X-Ray 08/27/17 0000 Signed Impressions: Service Date/Time: Sunday, August 27, 2017 21:00 - CONCLUSION: Apparent mild interval increase in right lung infiltrate. Terence Dominguez MD Knee MRI 08/26/17 0600 Signed Impressions: Service Date/Time: Saturday, August 26, 2017 08:27 - CONCLUSION: 1. Meniscal tear involving the posterior horn of the medial meniscus which extends to the inferior articular surface. 2. 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 3. Small knee joint effusion. 4. Bone infarct involving the distal femoral metadiaphysis. Anthony Brewer MD CT Angiography 08/25/17 0751 Signed Impressions: Service Date/Time: Friday, August 25, 2017 09:13 - CONCLUSION: No evidence of PE. Multifocal airspace consolidation identified throughout the right hemithorax and within the anteromedial aspect of the left upper lobe. Findings are consistent with an acute infectious process such as multifocal pneumonia.. Rin Velasquez MD Lower Extremity Ultrasound 08/25/17 0000 Signed Impressions: Service Date/Time: Friday, August 25, 2017 09:53 - CONCLUSION: Normal examination. Rin Velasquez MD Knee X-Ray 08/25/17 0000 Signed Impressions: Service Date/Time: Friday, August 25, 2017 09:31 - CONCLUSION: Unremarkable examination of the left knee. Rin Velasquez MD Objective Remarks awake and alert no acute distress anicteric neck supple no rales, no wheezes regular rhythm abdomen soft, nontender extremiteis no edema right knee A/P Problem List: (1) T-cell lymphoma ICD Code: C85.90 - Non-Hodgkin lymphoma, unspecified, unspecified site (2) Multifocal pneumonia ICD Code: J18.9 - Pneumonia, unspecified organism Status: Acute (3) Failure of outpatient treatment ICD Code: Z78.9 - Other specified health status Status: Acute (4) Cough ICD Code: R05 - Cough Status: Acute Assessment and Plan 42-year-old man with Multifocal bilateral pneumonia- clinically improving Outpatient treatment failure Atypical pattern Currently on Voriconazole s/p bronchoscopy negative cytology , however no secretion, erythema and endobronchial lesion per Pulmonary medicine B knees pain Right knee MRI with finding of meniscal tear involving posterior horn of the medial meniscus, finding of subchondral bone infarct Appreciate input from orthopedic surgery; however at this time recommended medical management and follow up with sport medicine PT ff OP Orthopedics ff up Lymphoma Immunocompromise Oncology input appreciate CHOP on hold Asthma - no rales or wheezes No current exacerbation As needed albuterol Monitor for exacerbations MDIs DVT prophylaxis SCDs Portia Sarabia MD Aug 29, 2017 13:47
--- NOTE | 2017-08-29 14:08 | HHI.IDPN ---
Subjective Subjective Remarks Mr. 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 He reports he underwent 6 sessions of chemotherapy and Radiation therapy so far. He went into remission and CT PET scan from 06/2017 was clear. He follows with of Oncology. He continued on CHOP chemotherapy. Over the past week, he has had increasing shortness of breath and cough. He was managed at an urgent care center in [place]. He reports having trouble contacting office and due to worsening symptoms despite antibiotics he decided to come to the hospital. In the emergency department [facility] he was noted to have white count of 8.9, hemoglobin of 10.6 his chemistry was normal and his BNP was reportedly normal. Due to his history of being immune compromised due to his cancer therapy patient underwent a sepsis workup including blood cultures and a CT scan. The CT scan shows bilateral multifocal pneumonia but no evidence of PE. Patient was started on empiric antibiotics and infectious disease consulted for management of pneumonia in an immunocompromised patient who has failed oral antibiotics. Pulmonology has been consulted and Dr. Aleman will see the patient and schedule him for bronchoscopy in a.m. Patient was started on empiric ceftriaxone and azithromycin patient reports subjective fevers as well as left knee pain. Patient reports that he has tried Levaquin and steroids by the urgent care with notch much response. Patient reports persistent knee pain as well as peripheral neuropathy symptoms in his left foot more prominently. He denies any urinary complaints he denies any bowel bladder complaints. He denies any headaches. Overnight events reviewed No fever Normal WBC No rash No diarrhea Left knee pain better. Off oxygen on room air. Denies any cough or phlegm. Wishes to go home. Antibiotics Bactrim IV Voriconazole oral. Lines Line sites with no e.o infection Past Medical History reviewed Allergies: Coded Allergies: No Known Allergies (Unverified , 08/25/17) Objective . Vital Signs Date Time Temp Pulse Resp B/P (MAP) Pulse Ox O2 Delivery O2 Flow Rate FiO2 08/29/17 11:41 98.4 82 18 126/90 (102) 94 08/29/17 09:21 92 21 08/29/17 08:52 98.4 92 20 121/84 (96) 93 08/29/17 07:57 132 08/29/17 06:00 82 08/29/17 05:37 18 08/29/17 05:00 106 08/29/17 04:20 97.5 98 20 123/92 (102) 94 08/29/17 04:02 80 08/29/17 03:00 86 08/29/17 02:00 94 08/29/17 01:00 90 08/29/17 00:56 96 Nasal Cannula 2.00 08/29/17 00:54 22 08/29/17 00:40 100 131/56 (81) 08/29/17 00:06 80 08/28/17 23:01 98.3 98 16 130/85 (100) 93 08/28/17 23:00 106 08/28/17 22:00 108 08/28/17 21:00 96 08/28/17 20:13 94 21 08/28/17 20:02 99.2 109 20 126/95 (105) 94 08/28/17 20:01 80 08/28/17 19:00 100 08/28/17 16:12 98.2 109 20 132/92 (105) 92 . Laboratory Tests Test 08/27/17 21:35 08/27/17 23:15 Procalcitonin 0.07 ng/mL Lactate Dehydrogenase 401 U/L Microbiology Date/Time Source Procedure Growth Status 08/28/17 07:55 Blood Other Aerobic Blood Culture - Preliminary NO GROWTH IN 1 DAY Resulted 08/28/17 07:55 Blood Other Anaerobic Blood Culture - Preliminary NO GROWTH IN 1 DAY Resulted 08/28/17 07:55 Blood Other Blood Fungal Culture Pending Resulted 08/28/17 07:55 Blood Other Blood Fungal Culture Pending Resulted 08/27/17 23:15 Blood Other Mycobacterial Culture Pending Received 08/26/17 15:10 Bronchial Washings Other Fungal Smear - Final NO FUNGAL ELEMENTS SEEN. Resulted 08/26/17 15:10 Bronchial Washings Other Fungal Culture Pending Resulted 08/26/17 15:10 Bronchial Washings Other Acid Fast Stain - Final NO ACID FAST BACILLI SEEN Resulted 08/26/17 15:10 Bronchial Washings Other Mycobacterial Culture Pending Resulted 08/26/17 15:10 Bronchial Washings Other Gram Stain - Final Complete 08/26/17 15:10 Bronchial Washings Other Bronchial Culture - Final MODERATE GROWTH NORMAL RESPIRATORY TYRON Complete 08/26/17 15:10 Bronchial Washings Other Fungal Smear - Final NO FUNGAL ELEMENTS SEEN. Resulted 08/26/17 15:10 Bronchial Washings Other Fungal Culture Pending Resulted 08/26/17 15:10 Bronchial Washings Other Acid Fast Stain - Final NO ACID FAST BACILLI SEEN Resulted 08/26/17 15:10 Bronchial Washings Other Mycobacterial Culture Pending Resulted 08/26/17 15:10 Bronchial Washings Other Gram Stain - Final Complete 08/26/17 15:10 Bronchial Washings Other Bronchial Culture - Final LIGHT GROWTH NORMAL RESPIRATORY TYRON Complete 08/27/17 16:00 Urine Random Urine Legionella Antigen - Final PRESUMPTIVE NEGATIVE FOR LEGIONELLA P... Complete 08/26/17 15:10 Other Pending Received Imaging Last Impressions Knee MRI 08/26/17 0600 Signed Impressions: Service Date/Time: Saturday, August 26, 2017 08:27 - CONCLUSION: 1. Meniscal tear involving the posterior horn of the medial meniscus which extends to the inferior articular surface. 2. 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 3. Small knee joint effusion. 4. Bone infarct involving the distal femoral metadiaphysis. Anthony Brewer MD Chest X-Ray 08/26/17 0000 Signed Impressions: Service Date/Time: Saturday, August 26, 2017 15:51 - CONCLUSION: Diffuse infiltrate within the right lung consistent with possible pneumonia. Clinical correlation is recommended. Anthony Brewer MD CT Angiography 08/25/17 0751 Signed Impressions: Service Date/Time: Friday, August 25, 2017 09:13 - CONCLUSION: No evidence of PE. Multifocal airspace consolidation identified throughout the right hemithorax and within the anteromedial aspect of the left upper lobe. Findings are consistent with an acute infectious process such as multifocal pneumonia.. Rin Velasquez MD Lower Extremity Ultrasound 08/25/17 0000 Signed Impressions: Service Date/Time: Friday, August 25, 2017 09:53 - CONCLUSION: Normal examination. Rin Velasquez MD Knee X-Ray 08/25/17 0000 Signed Impressions: Service Date/Time: Friday, August 25, 2017 09:31 - CONCLUSION: Unremarkable examination of the left knee. Rin Velasquez MD Physical Exam GENERAL: This is a well-nourished, well-developed patient, in no apparent distress. SKIN: No rashes, ecchymoses or lesions. Cool and dry. Bald. HEAD: Atraumatic. Normocephalic. No temporal or scalp tenderness. EYES: Pupils equal round and reactive. Extraocular motions intact. No scleral icterus. No injection or drainage. ENT: Nose without bleeding, purulent drainage or septal hematoma. Throat without erythema, tonsillar hypertrophy or exudate. Uvula midline. Airway patent. NECK: Trachea midline. Supple, nontender, no meningeal signs. CARDIOVASCULAR: Hs audible. RESPIRATORY: Clear to auscultation. Breath sounds equal bilaterally. GASTROINTESTINAL: Abdomen soft, non-tender, nondistended. MUSCULOSKELETAL: Extremities without clubbing, cyanosis, or edema. NEUROLOGICAL: Awake and alert. Cranial nerves II through XII intact. Motor and sensory grossly within normal limits. Five out of 5 muscle strength in all muscle groups. Normal speech. Psych cooperative IV line sites with no e.o infection. Port site ok with no e.o infection. Assessment & Plan Remarks Pneumonia nonresponsive to oral antibiotics. PCP negative. 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 T-cell lymphoblastic leukemia at risk for T-cell related infections such as tuberculosis and fungal infections Check immunoglobulins possible low pre-disposing him to infections Port in place Recommendations Continue Voriconazole oral on discharge Continue steroids ok to change to oral to cover for possible fungal hypersensitivity pneumonitis. Continue on discharge. Dagoberto Villa would wait on Lung biopsy for now pending workup and response to Voriconazole. Follow up with and Dr.Reba Light ID as outpatient.Call with abnormals , change in clinical condition or problems to: Dr.Reba Light Recommend repeat CXR early next week and CT chest at 10 days from today. Will need ID clearance from Dr.Reba Light before undergoes BM transplant or further chemotherapy. Ok to DC from my standpoint. Above plan dagoberto Villa. Will sign off please call back if any change in clinical condition or questions. Sarah Dwyer MD Aug 29, 2017 14:08
[2017-08-29 14:26] LABS: MYCOPLASMA PNEUMONIAE IGG Positive (Negative); MYCOPLASMA PNEUMONIAE IGM Negative (Negative)
[2017-08-29] MEDS: ENOXAPARIN SODIUM 40 MG/0.4 ML SYRINGE SQ SCH (17:27)
--- NOTE | 2017-08-29 19:32 | HHI.PR ---
Subjective Remarks 42 YOWM with T cell lymphoma, on CHOP therapy has bilat lung infilt, R>L Had Bronch no secretions, erythema or endobronchial lesion Feels better Bronch cultures neg Breathing better CXR improving Cytology and PCP neg Objective Vital Signs Vital Signs Date Time Temp Pulse Resp B/P (MAP) Pulse Ox O2 Delivery O2 Flow Rate FiO2 08/29/17 19:21 Nasal Cannula 2.00 08/29/17 17:32 97.8 90 18 134/87 (103) 92 08/29/17 16:00 87 08/29/17 12:00 95 08/29/17 11:41 98.4 82 18 126/90 (102) 94 08/29/17 09:21 92 21 08/29/17 08:52 98.4 92 20 121/84 (96) 93 08/29/17 07:57 132 08/29/17 06:00 82 08/29/17 05:37 18 08/29/17 05:00 106 08/29/17 04:20 97.5 98 20 123/92 (102) 94 08/29/17 04:02 80 08/29/17 03:00 86 08/29/17 02:00 94 08/29/17 01:00 90 08/29/17 00:56 96 Nasal Cannula 2.00 08/29/17 00:54 22 08/29/17 00:40 100 131/56 (81) 08/29/17 00:06 80 08/28/17 23:01 98.3 98 16 130/85 (100) 93 08/28/17 23:00 106 08/28/17 22:00 108 08/28/17 21:00 96 08/28/17 20:13 94 21 08/28/17 20:02 99.2 109 20 126/95 (105) 94 08/28/17 20:01 80 I/O 08/28/17 08/28/17 08/28/17 08/29/17 08/29/17 08/29/17 07:00 15:00 23:00 07:00 15:00 23:00 Intake Total 530 ml Output Total 400 ml Balance 530 ml -400 ml IV Total 530 ml Output Urine Total 400 ml # Voids 1 Result Diagram: 08/26/17 0714 08/27/17 0448 Objective Remarks GENERAL: WBWN WM, NAD SKIN: Warm and dry. HEAD: Normocephalic. EYES: No scleral icterus. No injection or drainage. NECK: Supple, trachea midline. No JVD or lymphadenopathy. CARDIOVASCULAR: Regular rate and rhythm without murmurs, gallops, or rubs. RESPIRATORY: Breath sounds equal bilaterally. No accessory muscle use. GASTROINTESTINAL: Abdomen soft, non-tender, nondistended. MUSCULOSKELETAL: No cyanosis, or edema. BACK: Nontender without obvious deformity. No CVA tenderness. A/P Assessment and Plan IMPRESSION: 1. Extensive bilateral infiltrates, more on the right lung than on the left. Need to rule out community-acquired pneumonia or other opportunistic infection. 2. T-cell lymphoma. He is on CHOP chemotherapy. 3. Bronchial asthma. PLAN: DC Solumedrol Pred 10 mg tid Stable on RA Cont Voriconazole and bactrim per ID DW pt and his at BS. Francis Aleman MD Aug 29, 2017 19:32
[2017-08-29] MEDS: TEMAZEPAM 7.5 MG CAP PO PRN (21:51)
[2017-08-30] VITALS (12 sets, daily range): BP systolic 134–143; BP diastolic 81–95; PULSE 81–122; RESP 18–20; TEMP 97.4–98.9; O2SAT 91–95
[2017-08-30] MEDS: LORazepam 0.5 MG TAB PO PRN ×2 (00:30→13:01)
[2017-08-30] MEDS: ACETAMINOPHEN 325 MG TAB PO PRN ×2 (00:30→05:21)
[2017-08-30] MEDS: MORPHINE SULFATE 8 MG/ML INJ IV PUSH PRN ×2 (02:07→06:12)
[2017-08-30] MEDS: VORICONAZOLE 200 MG TAB PO SCH (09:00)
[2017-08-30] MEDS: LACTOBACILLUS ACIDOPHILUS TAB PO SCH ×2 (09:00→12:59)
[2017-08-30] MEDS ORDERED: oxyCODONE/ACETAMINOPHEN 5 MG/325 MG TAB PO PRN (10:15)
[2017-08-30] MEDS: oxyCODONE/ACETAMINOPHEN 10 MG/325 MG TAB PO PRN ×2 (10:28→14:34)
[2017-08-30] MEDS: DOCUSATE SODIUM 100 MG CAP PO SCH (10:28)
[2017-08-30] MEDS: SODIUM CHLORIDE 0.9% FLUSH 10 ML FLUSH IV FLUSH SCH (10:29)
--- NOTE | 2017-08-30 11:29 | PD.ONC.PN ---
Subjective Subjective Remarks Afebrile overnight. Patient resting in bed in nad. continuing to have pins and needles sensation in his bilateral legs from knees down. states that he has had this for quite some time, weeks to months and has tried multiple separate nerve pain medications without improvement. the only thing that seems to help is percocet, morphine or dilaudid. states his breathing is much better today. Objective Data Date Time Temp Pulse Resp B/P (MAP) Pulse Ox O2 Delivery O2 Flow Rate FiO2 08/30/17 08:08 98.9 95 20 134/88 (103) 95 08/30/17 07:52 Room Air 08/30/17 07:52 101 08/30/17 06:00 96 08/30/17 05:22 97.4 102 18 138/95 (109) 91 08/30/17 05:00 102 08/30/17 04:00 86 08/30/17 04:00 84 08/30/17 03:00 84 08/30/17 02:00 122 08/30/17 00:06 98.0 102 18 137/81 (99) 93 08/30/17 00:00 104 08/30/17 00:00 97 08/29/17 22:00 94 08/29/17 21:00 104 08/29/17 20:30 98.0 102 17 132/89 (103) 92 08/29/17 20:00 97 08/29/17 20:00 96 08/29/17 19:21 Nasal Cannula 2.00 08/29/17 19:00 110 08/29/17 17:32 97.8 90 18 134/87 (103) 92 08/29/17 16:00 87 08/29/17 12:00 95 08/29/17 11:41 98.4 82 18 126/90 (102) 94 08/30/17 08/30/17 08/30/17 07:00 15:00 23:00 Intake Total 480 ml Balance 480 ml Result Diagram: 08/26/17 0714 08/27/17 0448 Laboratory Results Laboratory Tests Test 08/29/17 16:10 Urine Opiates Screen POS Urine Barbiturates Screen NEG Urine Amphetamines Screen NEG Urine Benzodiazepines Screen NEG Urine Cocaine Screen NEG Urine Cannabinoids Screen NEG Culture Results Microbiology Date/Time Source Procedure Growth Status 08/28/17 07:55 Blood Other Aerobic Blood Culture - Preliminary NO GROWTH IN 2 DAYS Resulted 08/28/17 07:55 Blood Other Anaerobic Blood Culture - Preliminary NO GROWTH IN 2 DAYS Resulted 08/28/17 07:55 Blood Other Blood Fungal Culture Pending Resulted 08/28/17 07:55 Blood Other Blood Fungal Culture Pending Resulted 08/27/17 23:15 Blood Other Mycobacterial Culture Pending Received 08/27/17 16:00 Urine Random Urine Legionella Antigen - Final PRESUMPTIVE NEGATIVE FOR LEGIONELLA P... Complete Administered Medications Medications (Trade) Dose Ordered Sig/Suzan Route PRN Reason Start Time Stop Time Status Last Admin Dose Admin Sodium Chloride (NS Flush) 2 ml UNSCH PRN IV FLUSH FLUSH AFTER USING IV ACCESS 08/25/17 10:00 08/25/17 11:45 Sodium Chloride (NS Flush) 2 ml BID IV FLUSH 08/25/17 21:00 08/30/17 10:29 Lactobacillus Acidophilus (Lactinex) 1 tab TID PO 08/25/17 13:00 08/30/17 09:00 Albuterol/ Ipratropium (Duoneb Neb) 1 ampule Q6HR NEB PRN NEB Dyspnea or Wheezing 08/25/17 15:15 08/29/17 09:20 Docusate Sodium (Colace) 100 mg BID PO 08/25/17 21:00 08/30/17 10:28 Magnesium Hydroxide (Milk Of Magnesia Liq) 30 ml DAILY PRN PO Constipation 08/25/17 15:15 08/30/17 10:30 Enoxaparin Sodium (Lovenox Inj) 40 mg Q24H SQ 08/25/17 16:00 08/29/17 17:27 Voriconazole (Vfend) 200 mg Q12HR PO 08/28/17 10:45 08/30/17 09:00 Temazepam (Restoril) 7.5 mg HS PRN PO sleep 08/28/17 20:45 08/29/17 21:51 Acetaminophen (Tylenol) 650 mg Q4H PRN PO pain1-2 or fever>100.4 08/29/17 09:00 08/30/17 05:21 Lorazepam (Ativan) 0.5 mg Q6H PRN PO anxiety 08/29/17 09:00 08/30/17 00:30 Oxycodone/ Acetaminophen (Percocet 10-325 Mg) 1 tab Q4H PRN PO pain6-10 08/30/17 10:15 08/30/17 10:28 Objective Remarks GENERAL: Middle aged male, upright in bed in nad. SKIN: Warm and dry. HEAD: Normocephalic. EYES: no injection or drainage. NECK: Supple, trachea midline. CARDIOVASCULAR: Regular rate and rhythm RESPIRATORY: Breath sounds equal bilaterally. No accessory muscle use. GASTROINTESTINAL: Abdomen soft, non-tender, nondistended. EXTREMITIES: No cyanosis NEUROLOGICAL: awake alert. normal speech. moving extremities. Assessment/Plan Assessment 42y/o male with h/o T-cell lymphoma, admitted with pneumonia. h/o Asthma. History of herniated disk. History of pneumonia. Plan 1. oncology clear for discharge 2. switch IV morphine to PO Percocet 3. would d/c on Vfend and steroids per ID recommendations. 4. follow up in clinic next week. Attending Statement Agree with above, as discussed. FU with schedule appt in clinic. Doris Liu Aug 30, 2017 11:29 Aysha Leigh MD Aug 30, 2017 17:34
[2017-08-30] MEDS ORDERED: predniSONE 10 MG TAB PO SCH (13:00)
--- NOTE | 2017-08-30 13:30 | HHI.PR ---
Subjective Remarks no complains no difficulty swallowing, shortness of breath Objective Vitals Vital Signs Date Time Temp Pulse Resp B/P (MAP) Pulse Ox O2 Delivery O2 Flow Rate FiO2 08/30/17 11:22 98.1 105 18 143/85 (104) 92 08/30/17 08:08 98.9 95 20 134/88 (103) 95 08/30/17 07:52 Room Air 08/30/17 07:52 101 08/30/17 06:00 96 08/30/17 05:22 97.4 102 18 138/95 (109) 91 08/30/17 05:00 102 08/30/17 04:00 86 08/30/17 04:00 84 08/30/17 03:00 84 08/30/17 02:00 122 08/30/17 00:06 98.0 102 18 137/81 (99) 93 08/30/17 00:00 104 08/30/17 00:00 97 08/29/17 22:00 94 08/29/17 21:00 104 08/29/17 20:30 98.0 102 17 132/89 (103) 92 08/29/17 20:00 97 08/29/17 20:00 96 08/29/17 19:21 Nasal Cannula 2.00 08/29/17 19:00 110 08/29/17 17:32 97.8 90 18 134/87 (103) 92 08/29/17 16:00 87 I/O 08/29/17 08/29/17 08/29/17 08/30/17 08/30/17 08/30/17 07:00 15:00 23:00 07:00 15:00 23:00 Intake Total 480 ml Output Total 400 ml Balance -400 ml 480 ml Intake Oral 480 ml Output Urine Total 400 ml # Voids 3 Result Diagram: 08/26/17 0714 08/27/17 0448 Imaging Last Impressions Chest X-Ray 08/27/17 0000 Signed Impressions: Service Date/Time: Sunday, August 27, 2017 21:00 - CONCLUSION: Apparent mild interval increase in right lung infiltrate. Terence Dominguez MD Knee MRI 08/26/17 0600 Signed Impressions: Service Date/Time: Saturday, August 26, 2017 08:27 - CONCLUSION: 1. Meniscal tear involving the posterior horn of the medial meniscus which extends to the inferior articular surface. 2. 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 3. Small knee joint effusion. 4. Bone infarct involving the distal femoral metadiaphysis. Anthony Brewer MD CT Angiography 08/25/17 0751 Signed Impressions: Service Date/Time: Friday, August 25, 2017 09:13 - CONCLUSION: No evidence of PE. Multifocal airspace consolidation identified throughout the right hemithorax and within the anteromedial aspect of the left upper lobe. Findings are consistent with an acute infectious process such as multifocal pneumonia.. Rin Velasquez MD Lower Extremity Ultrasound 08/25/17 0000 Signed Impressions: Service Date/Time: Friday, August 25, 2017 09:53 - CONCLUSION: Normal examination. Rin Velasquez MD Knee X-Ray 08/25/17 0000 Signed Impressions: Service Date/Time: Friday, August 25, 2017 09:31 - CONCLUSION: Unremarkable examination of the left knee. Rin Velasquez MD Objective Remarks awake and alert no acute distress anicteric neck supple no rales, no wheezes regular rhythm abdomen soft, nontender extremiteis no edema right knee A/P Problem List: (1) T-cell lymphoma ICD Code: C85.90 - Non-Hodgkin lymphoma, unspecified, unspecified site (2) Multifocal pneumonia ICD Code: J18.9 - Pneumonia, unspecified organism Status: Acute (3) Failure of outpatient treatment ICD Code: Z78.9 - Other specified health status Status: Acute (4) Cough ICD Code: R05 - Cough Status: Acute Assessment and Plan 42-year-old man with Multifocal bilateral pneumonia- clinically improving Outpatient treatment failure Atypical pattern Currently on Voriconazole - give 2 weeks scripts s/p bronchoscopy negative cytology , however no secretion, erythema and endobronchial lesion per Pulmonary medicine Prednisone 10 mg po tid Follow up with and Dr.Reba Light ID as outpatient. Dr.Reba Light B knees pain Right knee MRI with finding of meniscal tear involving posterior horn of the medial meniscus, finding of subchondral bone infarct Appreciate input from orthopedic surgery; however at this time recommended medical management and follow up with sport medicine PT ff OP Orthopedics ff up Lymphoma Immunocompromise Oncology input appreciate [facility] on hold - cleared for DC- OP ff up with Dr. Leigh Asthma - no rales or wheezes No current exacerbation As needed albuterol Monitor for exacerbations MDIs DVT prophylaxis SCDs Portia Sarabia MD Aug 30, 2017 13:30
[2017-08-30] MEDS ORDERED: VORI200 PO (13:36)
[2017-08-30] MEDS ORDERED: PRED10 PO (13:36)
[2017-08-30] MEDS ORDERED: OXYC1TAB36 PO (13:40)
--- NOTE | 2017-08-30 13:41 | HHI.DS ---
Discharge Summary Admission Date Aug 25, 2017 at 09:55 Discharge Date: Aug 30, 2017 Admitting Diagnosis Multifocal pneumonia, outpatient treatment failure (1) T-cell lymphoma ICD Code: C85.90 - Non-Hodgkin lymphoma, unspecified, unspecified site Diagnosis: Principal (2) Multifocal pneumonia ICD Code: J18.9 - Pneumonia, unspecified organism Diagnosis: Principal Status: Acute (3) Failure of outpatient treatment ICD Code: Z78.9 - Other specified health status Diagnosis: Secondary Status: Acute Procedures none Brief History - From Admission Mr. Turner is a 42-year-old male. He has T-cell lymphoma at baseline. Intermittent treatment for this. As an outpatient he's been having a cough for about 2 weeks. He was treated with Levaquin for the past 6 days. He comes in today due to no improvement in his cough, he's actually been getting worse through time. Imaging shows bilateral consolidation suggestive of pneumonia, most significant in the right lung. No leukocytosis or fever, but patient is on active chemotherapy and this could cause suppression of both of these findings. Pattern of pneumonia on CT is concerning for an atypical infection. His immunocompromise status opens his risk for atypical infections. Fever and chills have occurred at home. He also has a complaint of left knee pain. CBC/BMP: 08/26/17 0714 08/27/17 0448 Significant Findings Laboratory Tests Test 08/27/17 16:00 08/27/17 21:35 08/27/17 23:15 08/28/17 11:22 Lactate Dehydrogenase 401 U/L (87-241) Blood Gas HCO3 29 mmol/L (22-26) Blood Gas Base Excess 5.1 mmol/L (-2-2) Arterial Blood pH 7.48 (7.380-7.420) Test 08/28/17 11:55 08/29/17 16:10 Urine Opiates Screen POS (NEG) Imaging Last Impressions Chest X-Ray 08/27/17 0000 Signed Impressions: Service Date/Time: Sunday, August 27, 2017 21:00 - CONCLUSION: Apparent mild interval increase in right lung infiltrate. Terence Dominguez MD Knee MRI 08/26/17 0600 Signed Impressions: Service Date/Time: Saturday, August 26, 2017 08:27 - CONCLUSION: 1. Meniscal tear involving the posterior horn of the medial meniscus which extends to the inferior articular surface. 2. 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 3. Small knee joint effusion. 4. Bone infarct involving the distal femoral metadiaphysis. Anthony Brewer MD CT Angiography 08/25/17 0751 Signed Impressions: Service Date/Time: Friday, August 25, 2017 09:13 - CONCLUSION: No evidence of PE. Multifocal airspace consolidation identified throughout the right hemithorax and within the anteromedial aspect of the left upper lobe. Findings are consistent with an acute infectious process such as multifocal pneumonia.. Rin Velasquez MD Lower Extremity Ultrasound 08/25/17 0000 Signed Impressions: Service Date/Time: Friday, August 25, 2017 09:53 - CONCLUSION: Normal examination. Rin Velasquez MD Knee X-Ray 08/25/17 0000 Signed Impressions: Service Date/Time: Friday, August 25, 2017 09:31 - CONCLUSION: Unremarkable examination of the left knee. Rin Velasquez MD PE at Discharge awake and alert no acute distress anicteric neck supple no rales, no wheezes regular rhythm abdomen soft, nontender extremiteis no edema right knee Pt update on day of discharge afebrile, good sats at room air ambualting no pain Hospital Course 42-year-old man with Multifocal bilateral pneumonia- clinically improving Outpatient treatment failure Atypical pattern Currently on Voriconazole - give 2 weeks scripts s/p bronchoscopy negative cytology , however no secretion, erythema and endobronchial lesion per Pulmonary medicine Prednisone 10 mg po tid Follow up with and Dr.Reba Light ID as outpatient. Dr.Reba Light B knees pain Right knee MRI with finding of meniscal tear involving posterior horn of the medial meniscus, finding of subchondral bone infarct Appreciate input from orthopedic surgery; however at this time recommended medical management and follow up with sport medicine PT ff OP Orthopedics ff up Lymphoma Immunocompromise Oncology input appreciate [facility] on hold - cleared for DC- OP ff up with Dr. Leigh Asthma - no rales or wheezes No current exacerbation As needed albuterol Monitor for exacerbations MDValdo DVT prophylaxis SCDs Lovenox Pt Condition on Discharge: Stable Discharge Disposition: Discharge Home Discharge Time: > 30 minutes Discharge Instructions DIET: Follow Instructions for: As Tolerated, No Restrictions Speech Therapy-Diet Recommends: Regular Activities you can perform: Weight Bearing as Liliam Follow up Referrals: Infectious Disease - 1 Week with Jacinta Light Oncology/Hematology - 1 Week with Aysha Leigh MD Orthopedics - 1 Month @ [facility] with Jose Gracia MD PCP Follow-up - 09/02/17 with Sunil Pulmonology - 09/04/17 with Francis Aleman MD New Orders: X-RAY CHEST PA & LAT - 1 Week New Medications: Oxycodone HCl/Acetaminophen (Oxycodone-Acetaminophen 10-325) 10 Mg-325 Mg Tablet 1 TAB PO Q6HR PRN for pain6-10, #30 TAB Prednisone (Prednisone) 10 Mg Tab 10 MG PO TID for PULM for 14 Days, TAB Voriconazole (Vfend) 200 Mg Tab 200 MG PO Q12HR for Infection for 14 Days, TAB Discontinued Medications: Levofloxacin (Levofloxacin) 500 Mg Tablet 500 MG PO DAILY for Infection, TAB 0 Refills Portia Coronel MD Aug 30, 2017 13:41
[2017-08-30 14:32] LABS: HISTOPLASMA ANTIGEN UR RESULT Negative (Negative)
[2017-09-02 17:51] LABS: ASPERGILLUS FLAVUS AB NEGATIVE (NEGATIVE); ASPERGILLUS FUMIGATUS AB NEGATIVE (NEGATIVE); ASPERGILLUS NIGER AB NEGATIVE (NEGATIVE)
[2017-09-03 03:53] LABS: LEGIONELLA PNEUMO 1 IGG <1:64 titer (< 1:64); LEGIONELLA PNEUMO 1 IGM <1:64 titer (< 1:64); LEGIONELLA PNEUMO 2 IGG <1:64 titer (< 1:64); LEGIONELLA PNEUMO 2 IGM <1:64 titer (< 1:64); LEGIONELLA PNEUMO 3 IGG <1:64 titer (< 1:64); LEGIONELLA PNEUMO 3 IGM <1:64 titer (< 1:64); LEGIONELLA PNEUMO 4 IGG <1:64 titer (< 1:64); LEGIONELLA PNEUMO 4 IGM <1:64 titer (< 1:64); LEGIONELLA PNEUMO 5 IGG <1:64 titer (< 1:64); LEGIONELLA PNEUMO 5 IGM <1:64 titer (< 1:64); LEGIONELLA PNEUMO 6 IGM <1:64 titer (< 1:64)
== END 2017-08-30 15:00 | disposition home or self-care (01) | DRG 167 ==
LOC: NEPC 07:43 → NEDA 09:55 → N05B 12:44 → HCIN 08-28 18:19
PROVIDERS: ADMIT Internal Medicine; ATTEND Internal Medicine
PROC: 0B9K8ZX Drainage of Right Lung, Via Natural or Artificial Opening Endoscopic, Diagnostic (ICD-10-PCS; principal; 2017-08-26)
DX: J18.9 Pneumonia, unspecified organism (principal); C83.50 Lymphoblastic (diffuse) lymphoma, unspecified site; I10 Essential (primary) hypertension; J45.909 Unspecified asthma, uncomplicated; G62.9 Polyneuropathy, unspecified; K59.00 Constipation, unspecified; D64.81 Anemia due to antineoplastic chemotherapy; T45.1X5A Adverse effect of antineoplastic and immunosuppressive drugs, initial encounter; S83.242A Other tear of medial meniscus, current injury, left knee, initial encounter; Z86.718 Personal history of other venous thrombosis and embolism
CPT/HCPCS: 31623; 36600; 71045; 71046; 71275; 73564; 73723; 80048; 80053; 80202; 80307; 82565; 82784; 82805; 83615; 83880; 84145; 84484; 85007; 85025; 85027; 85610; 85730; 86403; 86606; 86713; 86738; 87015; 87040; 87070; 87102; 87103; 87116; 87205; 87206; 87385; 87449; 87633; 87899; 88112; 88305; 88312; 89051; 93005; 93306; 93971; 94640; 94664; 96374; A9579; J0456; J0692; J0696; J1450; J1650; J2270; J2920; J3370; J7040; J7050; J7060; J7512; J7613; L1830; Q9967

== ENCOUNTER 2017-09-09 09:42 | Inpatient (IN) | payer BC ==
[~2017-09-09] VITALS: Ht 172.7 cm; Wt 96.5 kg
[~2017-09-09 09:42] MED LIST changes: +OXYC1TAB36 PO; +PRED10 PO; +PRED2.5T PO; +VORI200 PO; -[UNRECOGNIZED DRUG - REMARK]
[2017-09-09 09:44] VITALS: BP 114/71; PULSE 118; RESP 26; TEMP 99.3; O2SAT 90
[2017-09-09 09:58] VITALS: BP 131/83; PULSE 115; RESP 25; O2SAT 95
[2017-09-09] MEDS ORDERED: FLUC200T2 PO (10:09)
[2017-09-09] MEDS ORDERED: MSIR15 PO (10:09)
[2017-09-09] MEDS ORDERED: SODIUM CHLORIDE 0.9% FLUSH 10 ML FLUSH IVF PRN (10:15)
[2017-09-09] MEDS ORDERED: MORPHINE SULFATE 4 MG/ML INJ IV PUSH ONE (10:15)
[2017-09-09] MEDS ORDERED: ONDANSETRON HCL 4 MG/2 ML VIAL IV PUSH ONE (10:15)
--- NOTE | 2017-09-09 10:56 | RADRPT ---
EXAM DATE/TIME: 09/09/2017 10:25 [place] COMPARISON: CHEST SINGLE AP, August 27, 2017, 16:28. INDICATIONS : Short of breath, back pain, coughing MEDICAL HISTORY : T-cell lymphoma SURGICAL HISTORY : right shoulder, infusaport, bone marrow biopsy ENCOUNTER: Initial ACUITY: 1 day PAIN SCORE: 8/10 LOCATION: Bilateral chest FINDINGS: A single AP portable erect view of the chest was obtained and demonstrates increased infiltrate and d ensity in the right lung with volume loss and mild mediastinal shift to the right noted. The left miguel g remains clear. The left subclavian central venous line remains in place. The heart size is within n ormal limits. The bony thorax remains intact. CONCLUSION: Increasing infiltrate in density in the right lung with apparent volume loss. Terence Dominguez MD on September 09, 2017 at 10:53 Board Certified Radiologist. This report was verified electronically.
[2017-09-09] MEDS ORDERED: PIPERACIL-TAZO 4.5 GM PREMIX 100 ML IV STA (11:28)
[2017-09-09] MEDS ORDERED: AZITHROMYCIN INJ 500 MG in SODIUM CHLOR 0.9% 250 ML INJ 250 ML IV STA (11:28)
[2017-09-09 11:38] LABS: AUTOMATED NEUTROPHIL # 11.5 TH/MM3 (1.8-7.7); BASOPHIL # 0.1 TH/MM3 (0-0.2); BASOPHIL % 0.5 % (0.0-2.0); EOSINOPHIL # 0.1 TH/MM3 (0-0.4); HEMATOCRIT 39.1 % (39.0-51.0); HEMOGLOBIN 12.6 GM/DL (13.0-17.0); LYMPH % 2.3 % (9.0-44.0); LYMPHOCYTE # 0.3 TH/MM3 (1.0-4.8); MEAN CELL VOLUME 86.8 FL (80.0-100.0); MEAN CORPUSCULAR HGB CONC 32.3 % (32.0-36.0); MEAN PLATELET VOLUME 7.8 FL (7.0-11.0); MONO % 8.1 % (0.0-8.0); MONOCYTE # 1.1 TH/MM3 (0-0.9); NEUT % 88.1 % (16.0-70.0); PLATELET COUNT 195 TH/MM3 (150-450); RED BLOOD COUNT 4.51 MIL/MM3 (4.50-5.90); RED CELL DISTRIBUTION WIDTH 19.6 % (11.6-17.2)
--- NOTE | 2017-09-09 11:38 | PD ---
HPI . Shortness of breath Chief Complaint: Respiratory Symptoms Time Seen by Provider: 10:15 Travel History International Travel<30 days: No Contact w/Intl Traveler<30days: No Traveled to known affect area: No History of Present Illness HPI This patient presents with a chief complaint of shortness of breath. This patient has a history of T-cell lymphoma and recent pneumonia. He was admitted to the hospital from 08/25 until 08/30. His cultures including AFB and fungal cultures were all negative. He was eventually treated for presumptive fungal pneumonia with voriconazole and for atypical bacteria with Levaquin. He states that he began having increased shortness of breath about a week and a half ago. Symptoms are getting progressively worse. He reports dyspnea on exertion and orthopnea. He coughs whenever he takes a deep breath. He has not been running a fever. The patient has been treated with chemotherapy, specifically CHOP. He is also being considered for a bone marrow transplant. PFSH Past Medical History Arthritis: Yes Asthma: Yes Anxiety: No Depression: No Cancer: Yes (t-cell lymphoma) Cardiovascular Problems: Yes High Cholesterol: Yes Chemotherapy: Yes Diabetes: No Diminished Hearing: No Endocrine: No Genitourinary: No Hypertension: Yes Immune Disorder: No Implanted Vascular Access Dvce: Yes Musculoskeletal: Yes Neurologic: No Psychiatric: No Reproductive: No Respiratory: Yes Immunizations Current: No Pneumonia: Yes Thyroid Disease: No Influenza Vaccination: Yes Past Surgical History AICD: No Body Medical Devices: SHOULDER SURGERY, DISLOCATION MAYBE SCREWS? Joint Replacement: No Pacemaker: No Thoracic Surgery: Yes (PORT CHEST - LEFT UPPER CHEST) Family History Family Myocardial Infarction: Yes (father, grandfather) Social History Alcohol Use: No Tobacco Use: No Substance Use: No Allergies-Medications (Allergen,Severity, Reaction): Coded Allergies: No Known Allergies (Unverified , 09/09/17) Reported Meds & Prescriptions Reported Meds & Active Scripts Active Prednisone 10 Mg Tab 10 Mg PO TID 14 Days Reported Morphine IR (Morphine Sulfate) 15 Mg Tab 15 Mg PO Q4H PRN Fluconazole 200 Mg Tab 200 Mg PO DAILY Review of Systems Except as stated in HPI: all other systems reviewed are Neg General / Constitutional: No: Fever, Chills Cardiovascular: No: Chest Pain or Discomfort Respiratory: Positive: Cough, Shortness of Breath Physical Exam Narrative GENERAL: Awake and alert. SKIN: warm/dry. HEAD: Normocephalic. Atraumatic. EYES: Pupils equal and round. No scleral icterus. No injection or drainage. ENT: No nasal bleeding or discharge. Mucous membranes pink and moist. NECK: Trachea midline. Full range of motion without pain.. CARDIOVASCULAR: Regular rate and rhythm. RESPIRATORY: Initial sats were in the upper 80s. His sats are now in the mid to upper 90s on oxygen. No accessory muscle use. He coughs with each deep respiration. MUSCULOSKELETAL: No obvious deformities. NEUROLOGICAL: Awake and alert. No obvious cranial nerve deficits. Motor grossly within normal limits. Normal speech. PSYCHIATRIC: Appropriate mood and affect; insight and judgment normal. Data Data Last Documented VS Vital Signs Date Time Temp Pulse Resp B/P (MAP) Pulse Ox O2 Delivery O2 Flow Rate FiO2 09/09/17 09:58 115 25 131/83 (99) 95 Nasal Cannula 4.00 09/09/17 09:44 99.3 Orders Orders Complete Blood Count With Diff (09/09/17 10:15) Comprehensive Metabolic Panel (09/09/17 10:15) Iv Access Insert/Monitor (09/09/17 10:15) Electrocardiogram (09/09/17 10:15) Ecg Monitoring (09/09/17 10:15) Oximetry (09/09/17 10:15) Oxygen Administration (09/09/17 10:15) Chest, Single Ap (09/09/17 10:15) Sodium Chloride 0.9% Flush (Ns Flush) (09/09/17 10:15) Ondansetron Inj (Zofran Inj) (09/09/17 10:15) Morphine Inj (Morphine Inj) (09/09/17 10:15) Piperacil-Tazo 4.5 Gm Premix (Zosyn 4.5 (09/09/17 11:28) Azithromycin Inj (Zithromax Inj) (09/09/17 11:28) Labs Laboratory Tests Test 09/09/17 11:15 White Blood Count 13.0 TH/MM3 Red Blood Count 4.51 MIL/MM3 Hemoglobin 12.6 GM/DL Hematocrit 39.1 % Mean Corpuscular Volume 86.8 FL Mean Corpuscular Hemoglobin 28.0 PG Mean Corpuscular Hemoglobin Concent 32.3 % Red Cell Distribution Width 19.6 % Platelet Count 195 TH/MM3 Mean Platelet Volume 7.8 FL Neutrophils (%) (Auto) 88.1 % Lymphocytes (%) (Auto) 2.3 % Monocytes (%) (Auto) 8.1 % Eosinophils (%) (Auto) 1.0 % Basophils (%) (Auto) 0.5 % Neutrophils # (Auto) 11.5 TH/MM3 Lymphocytes # (Auto) 0.3 TH/MM3 Monocytes # (Auto) 1.1 TH/MM3 Eosinophils # (Auto) 0.1 TH/MM3 Basophils # (Auto) 0.1 TH/MM3 CBC Comment AUTO DIFF Differential Comment AUTO DIFF CONFIRMED Toxic Granulation 1+ Platelet Estimate NORMAL Platelet Morphology Comment NORMAL Tear Drop Cells 1+ Ovalocytes 1+ Blood Urea Nitrogen 16 MG/DL Creatinine 0.67 MG/DL Random Glucose 79 MG/DL Total Protein 7.0 GM/DL Albumin 2.9 GM/DL Calcium Level 9.1 MG/DL Alkaline Phosphatase 66 U/L Aspartate Amino Transf (AST/SGOT) 37 U/L Alanine Aminotransferase (ALT/SGPT) 92 U/L Total Bilirubin 0.4 MG/DL Sodium Level 143 MEQ/L Potassium Level 4.2 MEQ/L Chloride Level 107 MEQ/L Carbon Dioxide Level 28.2 MEQ/L Anion Gap 8 MEQ/L Estimat Glomerular Filtration Rate 130 ML/MIN MDM Medical Decision Making Medical Screen Exam Complete: Yes Emergency Medical Condition: Yes Medical Record Reviewed: Yes (please see HPI for review of records) Interpretation(s) EKG shows sinus tachycardia at 101. No acute ischemic changes. Differential Diagnosis Differential diagnosis of dyspnea includes but is not limited to congestive heart failure, pneumonia, wheezing, pneumothorax, pulmonary embolism Narrative Course This is a patient with T-cell lymphoma and recent pneumonia who presents complaining with increasing shortness of breath for the last week and a half. Last Impressions Chest X-Ray 09/09/17 1015 Signed Impressions: Service Date/Time: Saturday, September 09, 2017 10:25 - CONCLUSION: Increasing infiltrate in density in the right lung with apparent volume loss. Terence Dominguez MD Chest x-ray was independently reviewed by me. HCAP antibiotics were then ordered. CBC & BMP Diagram 09/09/17 11:15 Total Protein 7.0, Albumin 2.9 L, Calcium Level 9.1, Alkaline Phosphatase 66, Aspartate Amino Transf (AST/SGOT) 37, Alanine Aminotransferase (ALT/SGPT) 92 H, Total Bilirubin 0.4 Because of his recent hospitalization for pneumonia, antibiotics to cover HCAP have been ordered. The patient is being admitted to the resident service. Sepsis Criteria SIRS Criteria (2 or more): Heart rate over 90, RR > 20 or PaCO2 < 32 Sepsis Criteria (SIRS+source): Infect source susp/known Criteria Outcome: Meets SIRS criteria, Meets sepsis criteria Diagnosis Primary Impression: Pneumonia Qualified Codes: J18.9 - Pneumonia, unspecified organism Admitting Information Admitting Physician Requests: Admit Condition: Stable Azra Murrieta MD Sep 09, 2017 11:38
[2017-09-09 11:59] LABS: ALKALINE PHOSPHATASE 66 U/L (45-117); TOTAL BILIRUBIN ADULT 0.4 MG/DL (0.2-1.0)
[2017-09-09 12:07] LABS: ALBUMIN 2.9 GM/DL (3.4-5.0); ALT (GPT) 92 U/L (12-78); AST (GOT) 37 U/L (15-37); BICARBONATE 28.2 MEQ/L (21.0-32.0); BLOOD UREA NITROGEN 16 MG/DL (7-18); CALCIUM 9.1 MG/DL (8.5-10.1); CHLORIDE 107 MEQ/L (98-107); CREATININE 0.67 MG/DL (0.60-1.30); GLOMERULAR FILTRATION RATE 130 ML/MIN (>89); GLUCOSE,RANDOM 79 MG/DL (74-106); SODIUM (NA) 143 MEQ/L (136-145)
[2017-09-09 12:24] LABS: OVALOCYTES 1+ (NORMAL); TEARDROP RBCS 1+ (NORMAL)
[2017-09-09 12:25] LABS: TOXIC GRANULATION 1+ (NORMAL)
--- NOTE | 2017-09-09 13:13 | HHI.HP ---
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 Dr. Leigh is his oncologist, has been following up with him since then. First was diagnosed after fluid was found in his lung, tumor was found at the time. This is his second hospital admission for pneumonia. Was in hospital two weeks ago for 6 days, treated for pneumonia and possible fungal infection. Finished antibiotic course and took a course fluconazole on discharge. Is still on fluconazole. Supposed to stay on this until completing next chemo treatment. Currently undergoing prednisone taper after being on it for 6-7 weeks. Is now to prednisone 10 mg BID (before was TID). Past Family Social History Allergies: Coded Allergies: No Known Allergies (Unverified , 09/09/17) Physical Exam Vital Signs Vital Signs Date Time Temp Pulse Resp B/P (MAP) Pulse Ox O2 Delivery O2 Flow Rate FiO2 09/09/17 09:58 115 25 131/83 (99) 95 Nasal Cannula 4.00 09/09/17 09:44 99.3 118 26 114/71 (85) 90 Physical Exam GENERAL: This is a well-nourished, well-developed patient, in no apparent distress. SKIN: No rashes, ecchymoses or lesions. Cool and dry. HEAD: Atraumatic. Normocephalic. No temporal or scalp tenderness. EYES: Pupils equal round and reactive. Extraocular motions intact. No scleral icterus. No injection or drainage. ENT: Nose without bleeding, purulent drainage or septal hematoma. Throat without erythema, tonsillar hypertrophy or exudate. Uvula midline. Airway patent. NECK: Trachea midline. No JVD or lymphadenopathy. Supple, nontender, no meningeal signs. CARDIOVASCULAR: Regular rate and rhythm without murmurs, gallops, or rubs. RESPIRATORY: Clear to auscultation. Breath sounds equal bilaterally. No wheezes , rales, or rhonchi. GASTROINTESTINAL: Abdomen soft, non-tender, nondistended. No hepato-splenomegaly , or palpable masses. No guarding. MUSCULOSKELETAL: Extremities without clubbing, cyanosis, or edema. No joint tenderness, effusion, or edema noted. No calf tenderness. Negative Homans sign bilaterally. NEUROLOGICAL: Awake and alert. Cranial nerves II through XII intact. Motor and sensory grossly within normal limits. Five out of 5 muscle strength in all muscle groups. Normal speech. Laboratory Laboratory Tests Test 09/09/17 11:15 White Blood Count 13.0 Red Blood Count 4.51 Hemoglobin 12.6 Hematocrit 39.1 Mean Corpuscular Volume 86.8 Mean Corpuscular Hemoglobin 28.0 Mean Corpuscular Hemoglobin Concent 32.3 Red Cell Distribution Width 19.6 Platelet Count 195 Mean Platelet Volume 7.8 Neutrophils (%) (Auto) 88.1 Lymphocytes (%) (Auto) 2.3 Monocytes (%) (Auto) 8.1 Eosinophils (%) (Auto) 1.0 Basophils (%) (Auto) 0.5 Neutrophils # (Auto) 11.5 Lymphocytes # (Auto) 0.3 Monocytes # (Auto) 1.1 Eosinophils # (Auto) 0.1 Basophils # (Auto) 0.1 CBC Comment AUTO DIFF Differential Comment AUTO DIFF CONFIRMED Toxic Granulation 1+ Platelet Estimate NORMAL Platelet Morphology Comment NORMAL Tear Drop Cells 1+ Ovalocytes 1+ Blood Urea Nitrogen 16 Creatinine 0.67 Random Glucose 79 Total Protein 7.0 Albumin 2.9 Calcium Level 9.1 Alkaline Phosphatase 66 Aspartate Amino Transf (AST/SGOT) 37 Alanine Aminotransferase (ALT/SGPT) 92 Total Bilirubin 0.4 Sodium Level 143 Potassium Level 4.2 Chloride Level 107 Carbon Dioxide Level 28.2 Anion Gap 8 Estimat Glomerular Filtration Rate 130 Result Diagram: 09/09/17 1115 09/09/17 1115 Caprini VTE Risk Assessment Caprini Risk Assessment Model Point Value = 1 Point Value = 2 Point Value = 3 Point Value = 5 Age 41-60 Minor surgery BMI > 25 kg/m2 Swollen legs Varicose veins or History of unexplained or recurrent spontaneous Oral contraceptives or hormone replacement Sepsis (< 1 month) Serious lung disease, including pneumonia (< 1 month) Abnormal pulmonary function Acute myocardial infarction Congestive heart failure (< 1 month) History of inflammatory bowel disease Medical patient at bed rest Age 61-74 Arthroscopic surgery Major open surgery (> 45 min) Laparoscopic surgery (> 45 min) Malignancy Confined to bed (> 72 hours) Immobilizing plaster cast Central venous access Age >= 75 History of VTE Family history of VTE Factor V Leiden Prothrombin [id number] Lupus anticoagulant Anticardiolipin antibodies Elevated serum homocysteine Heparin-induced thrombocytopenia Other congenital or acquired thrombophilia Stroke (< 1 month) Elective arthroplasty Hip, pelvis, or leg fracture Acute spinal cord injury (< 1 month) Prophylaxis Regimen Total Risk Factor Score Risk Level Prophylaxis Regimen 0-1 Low Early ambulation 2 Moderate Order ONE of the following: *Sequential Compression Device (SCD) *Heparin 5000 units SQ BID 3-4 Higher Order ONE of the following medications: *Heparin 5000 units SQ TID *Enoxaparin/Lovenox 40 mg SQ daily (WT < 150 kg, CrCl > 30 mL/min) *Enoxaparin/Lovenox 30 mg SQ daily (WT < 150 kg, CrCl > 10-29 mL/min) *Enoxaparin/Lovenox 30 mg SQ BID (WT < 150 kg, CrCl > 30 mL/min) AND/OR *Sequential Compression Device (SCD) 5 or more Highest Order ONE of the following medications: *Heparin 5000 units SQ TID (Preferred with Epidurals) *Enoxaparin/Lovenox 40 mg SQ daily (WT < 150 kg, CrCl > 30 mL/min) *Enoxaparin/Lovenox 30 mg SQ daily (WT < 150 kg, CrCl > 10-29 mL/min) *Enoxaparin/Lovenox 30 mg SQ BID (WT < 150 kg, CrCl > 30 mL/min) AND *Sequential Compression Device (SCD) Physician Certification Order for Inpatient Services The services are ordered in accordance with Medicare regulations or non- Medicare payer requirements, as applicable. In the case of services not specified as inpatient-only, they are appropriately provided as inpatient services in accordance with the 2-midnight benchmark. days is the estimated time the patient will need to remain in the hospital, assuming treatment plan goals are met and no additional complications. Awilda Robertson MD R1 Sep 09, 2017 13:13
[2017-09-09] MEDS ORDERED: SODIUM CHLOR 0.9% 1000 ML INJ 1,000 ML IV ONE ×2 (14:00)
[2017-09-09] MEDS ORDERED: MORPHINE SULFATE 4 MG/ML INJ IV PUSH PRN (14:00)
--- NOTE | 2017-09-09 14:35 | HHI.HP ---
HPI Service Family Medicine Primary Care Physician No Primary Care Physician Admission Diagnosis Diagnoses: International Travel<30 Days: No Contact w/Intl Traveler<30days: No Known Affected Area: No History of Present Illness Patient is a 42-year-old male with recent diagnosis of T-cell lymphoma presented to the ED due to worsening shortness of breath this morning. Patient reports he has been feeling short of breath with exertion for the past couple days but this morning it was a worse it has been and he decided to come to ED for further evaluation. He stated that taking a deep breath produced cough. Cough is productive of white sputum. He also reports right-sided chest pain with deep inspiration and right-sided pressure in his back when he lays down. Patient reports that last night he took nebulizer treatment without any improvement. Patient was previously treated for fungal pneumonia pneumonia earlier this month. Of note patient was discharged on voriconazole 200 p.o. for the fungal pneumonia and he was switched to fluconazole 200 p.o. by medical oncologist (Dr. Leigh ). Patient reported he had severe bone pain while on voriconazole medication and reports intermittent right-sided chest pain that comes after taking fluconazole medication. Patient also reports bilateral knee pain worse on the right and numbness tingling sensation of feet bilaterally. Patient stated that previous hospitalization he was found to have a left medial meniscus tear. Patient does not use any assistive devices for ambulation. Patient denies fever, nausea vomiting, abdominal pain, decrease in appetite. Endorses regular bowel movements. Allergies: Seasonal In the ED patient received: IV azithromycin and Zosyn, morphine for pain, 2 L of normal saline bolus. Per ED note:The patient has been treated with chemotherapy, specifically CHOP. He is also being considered for a bone marrow transplant. (J Luis Parker MD, R1) Review of Systems Constitutional: COMPLAINS OF: Chills, Change in appetite, DENIES: Fever Ears, nose, mouth, throat: DENIES: Throat pain Respiratory: COMPLAINS OF: Cough, Sputum production, Shortness of breath Cardiovascular: COMPLAINS OF: Chest pain, DENIES: Palpitations, Syncope, Lower Extremity Edema Gastrointestinal: DENIES: Abdominal pain, Diarrhea, Nausea, Vomiting Genitourinary: DENIES: Urinary frequency, Dysuria Musculoskeletal: COMPLAINS OF: Joint pain Integumentary: DENIES: Rash Hematologic/lymphatic: DENIES: Bruising Neurologic: COMPLAINS OF: Headache, Paresthesias, DENIES: Seizures Psychiatric: DENIES: Confusion (J Luis Parker MD, R1) Past Family Social History Past Medical History Asthma, resolved once moved to [place] 5 yrs ago T-cell lymphoma Past Surgical History Port placement surgery in R shoulder-- rotator cuff tear lung bx thoracentecis Reported Medications Prednisone 10 Mg Tab 10 Mg PO TID switched over to BID 2 days ago Fluconazole 200 Mg Tab 200 Mg PO DAILY Of note pt did not take med at home today (J Luis Parker MD, R1) Allergies: Coded Allergies: No Known Allergies (Unverified , 09/09/17) Family History Father and grandfather of heart attack grandmother [place] Social History Denies alcohol use Denies tobacco use Denies illicit drug use (J Luis Parker MD, R1) Physical Exam Vital Signs Vital Signs Date Time Temp Pulse Resp B/P (MAP) Pulse Ox O2 Delivery O2 Flow Rate FiO2 09/09/17 09:58 115 25 131/83 (99) 95 Nasal Cannula 4.00 09/09/17 09:44 99.3 118 26 114/71 (85) 90 Physical Exam GENERAL: This is a well-nourished, well-developed patient, siting in bed in no apparent distress. SKIN: No rashes, ecchymoses or lesions. Cool and dry. HEAD: Atraumatic. Normocephalic. EYES: Pupils equal round and reactive. Extraocular motions intact. No scleral icterus. No injection or drainage. ENT: Nose without bleeding, purulent drainage or septal hematoma. Airway patent. NECK: Trachea midline. No JVD or lymphadenopathy. Supple, nontender, no meningeal signs. CARDIOVASCULAR: Regular rate and rhythm without murmurs, gallops, or rubs. non- tender to palpation along Right chest. RESPIRATORY: Rales and crackles noted on Right lower lung base. GASTROINTESTINAL: Abdomen slightly distended, soft, non-tender. No hepato- splenomegaly, or palpable masses. No guarding. MUSCULOSKELETAL: Extremities without clubbing, cyanosis, or edema. Mild joint tenderness of knee joint BL, minimal effusion noted around Left knee, knee joint not erythematous or warm to touch. No calf tenderness. +2 DP pulses BL NEUROLOGICAL: Awake and alert. Motor and sensory grossly within normal limits. Normal speech. Laboratory Laboratory Tests Test 09/09/17 11:15 White Blood Count 13.0 Red Blood Count 4.51 Hemoglobin 12.6 Hematocrit 39.1 Mean Corpuscular Volume 86.8 Mean Corpuscular Hemoglobin 28.0 Mean Corpuscular Hemoglobin Concent 32.3 Red Cell Distribution Width 19.6 Platelet Count 195 Mean Platelet Volume 7.8 Neutrophils (%) (Auto) 88.1 Lymphocytes (%) (Auto) 2.3 Monocytes (%) (Auto) 8.1 Eosinophils (%) (Auto) 1.0 Basophils (%) (Auto) 0.5 Neutrophils # (Auto) 11.5 Lymphocytes # (Auto) 0.3 Monocytes # (Auto) 1.1 Eosinophils # (Auto) 0.1 Basophils # (Auto) 0.1 CBC Comment AUTO DIFF Differential Comment AUTO DIFF CONFIRMED Toxic Granulation 1+ Platelet Estimate NORMAL Platelet Morphology Comment NORMAL Tear Drop Cells 1+ Ovalocytes 1+ Blood Urea Nitrogen 16 Creatinine 0.67 Random Glucose 79 Total Protein 7.0 Albumin 2.9 Calcium Level 9.1 Alkaline Phosphatase 66 Aspartate Amino Transf (AST/SGOT) 37 Alanine Aminotransferase (ALT/SGPT) 92 Total Bilirubin 0.4 Sodium Level 143 Potassium Level 4.2 Chloride Level 107 Carbon Dioxide Level 28.2 Anion Gap 8 Estimat Glomerular Filtration Rate 130 (J Luis Parker MD, R1) Result Diagram: 09/09/17 1115 09/09/17 1115 Imaging Last Impressions Chest X-Ray 09/09/17 1015 Signed Impressions: Service Date/Time: Saturday, September 09, 2017 10:25 - CONCLUSION: Increasing infiltrate in density in the right lung with apparent volume loss. Terence Dominguez MD (J Luis Parker MD, R1) Septic Shock Reassessment Septic shock perfusion: reassessment completed (J Luis Parker MD, R1) Caprini VTE Risk Assessment Caprini VTE Risk Assessment: Mod/High Risk (score >= 2) Caprini Risk Assessment Model Point Value = 1 Point Value = 2 Point Value = 3 Point Value = 5 Age 41-60 Minor surgery BMI > 25 kg/m2 Swollen legs Varicose veins or History of unexplained or recurrent spontaneous Oral contraceptives or hormone replacement Sepsis (< 1 month) Serious lung disease, including pneumonia (< 1 month) Abnormal pulmonary function Acute myocardial infarction Congestive heart failure (< 1 month) History of inflammatory bowel disease Medical patient at bed rest Age 61-74 Arthroscopic surgery Major open surgery (> 45 min) Laparoscopic surgery (> 45 min) Malignancy Confined to bed (> 72 hours) Immobilizing plaster cast Central venous access Age >= 75 History of VTE Family history of VTE Factor V Leiden Prothrombin [id number] Lupus anticoagulant Anticardiolipin antibodies Elevated serum homocysteine Heparin-induced thrombocytopenia Other congenital or acquired thrombophilia Stroke (< 1 month) Elective arthroplasty Hip, pelvis, or leg fracture Acute spinal cord injury (< 1 month) Prophylaxis Regimen Total Risk Factor Score Risk Level Prophylaxis Regimen 0-1 Low Early ambulation 2 Moderate Order ONE of the following: *Sequential Compression Device (SCD) *Heparin 5000 units SQ BID 3-4 Higher Order ONE of the following medications: *Heparin 5000 units SQ TID *Enoxaparin/Lovenox 40 mg SQ daily (WT < 150 kg, CrCl > 30 mL/min) *Enoxaparin/Lovenox 30 mg SQ daily (WT < 150 kg, CrCl > 10-29 mL/min) *Enoxaparin/Lovenox 30 mg SQ BID (WT < 150 kg, CrCl > 30 mL/min) AND/OR *Sequential Compression Device (SCD) 5 or more Highest Order ONE of the following medications: *Heparin 5000 units SQ TID (Preferred with Epidurals) *Enoxaparin/Lovenox 40 mg SQ daily (WT < 150 kg, CrCl > 30 mL/min) *Enoxaparin/Lovenox 30 mg SQ daily (WT < 150 kg, CrCl > 10-29 mL/min) *Enoxaparin/Lovenox 30 mg SQ BID (WT < 150 kg, CrCl > 30 mL/min) AND *Sequential Compression Device (SCD) (J Luis Parker MD, R1) Assessment and Plan Assessment and Plan Patient is a 42-year-old male with past medical history of T-cell lymphoma presented with: Code Status Full code Discussed Condition With ELVIN Santos (J Luis Parker MD, R1) Attending Attestation The patient has been seen and examined. The chart and all resident notes have been reviewed. I agree that inpatient care is appropriate and that a two midnight stay is expected for the reasons documented in the resident history and physical. I have discussed this with the resident and certify the resident s order for inpatient admission. Patient seen and examined. Case reviewed and discussed Please refer to resident H&P for further details regarding HPI, ROS, PMH, SurgHx , FH and SocHx In summary, patient is a 42yoM with a history of T cell lymphoma s/p CHOP CTX and RADTX with recent hospitalization. Patient had been discharged on 08/30 and patient reports he was doing well until approximately 4 days ago. He is not certain if this is related to him changing his antifungal treatment. He notes increased shortness of breath, cough with sputum production, LEW. No fevers, chills. GENERAL: Pleasant wdwn male, NAD, sitting up in bed SKIN: Warm and dry. NO rashes. Tattoos HEAD: Normocephalic. AT EYES: No scleral icterus. No injection or drainage. ENT: OP clear. MM slightly dry. NC in place. NECK: Supple, trachea midline. No JVD or lymphadenopathy. CARDIOVASCULAR: Tachycardic rate, reg rhythm without audible murmurs, gallops, or rubs. Port-a-cath anterior chest without evidence of infection. RESPIRATORY: Breath sounds diminished at bases bilaterally, there is expiratory wheezing with poor aeration. No accessory muscle use. GASTROINTESTINAL: Abdomen soft, non-tender, nondistended. Normal active BS. No rebound, guarding. MUSCULOSKELETAL: No cyanosis, or edema. No calf tenderness. BACK: Nontender without obvious deformity. No CVA tenderness. NEURO: Awake and alert. Normal speech. CN grossly intact. A/P: 42yoM admitted with: Sepsis due to HCAP Hypoxia T cell lymphoma Tachypnea Tachycardia Leukocytosis Anemia Empiric antibiotic therapy Oncology consult Infectious disease consult Pulmonology consult CT Chest Sputum culture Pain control Blood cultures, monitor for fever Monitor VS closely, supplemental oxygen as needed Breathing tx and inhaler to bedside Solu-Medrol Resume home meds as appropriate Patient seen and examined. Case reviewed and discussed Agree with plan of care as discussed with me and documented in the resident note (Azra Santos MD) Problem List: (1) Pneumonia ICD Codes: J18.9 - Pneumonia, unspecified organism Status: Acute Plan: Patient with recent hospitalization for pneumonia thought to be due to fungal etiology. Patient was discharged on voriconazole and switched to fluconazole by medical oncologist due to side effect of severe bone pain and medical oncology plan plan to extend treatment with fluconazole until patient received bone marrow transplant. On admission patient found to be septic with tachycardia (HR 118), tachypnea ( RR 26), leukocytosis (WBC 13) with infection source being the lungs. Chest x-ray: Increasing infiltrate and density in the right lung with apparent volume loss Fungal workup from prior hospitalization was negative Shortness of breath Shortness of breath has improved symptom likely due to patient's pneumonia. Patient O2 saturation of 97% on 4 L nasal cannula Albuterol inhaler at bedside Incentive spirometry Albuterol nebulizer every 4 hours for shortness of breath AT home patient previously on prednisone 10 mg po twice daily, will switch over to IV methylprednisolone 40 mg every 12hr Tylenol scheduled every 4 for pain IV morphine for breakthrough pain Antibiotic history: Vancomycin 09/09-- present Azithromycin 09/09-- present Zosyn 09/09-- present At home patient on fluconazole 200 mg po twice daily, will consider switching to previous dose of voriconazole 200 mg po based on ID recommendations. Pharmacy consulted for titration of vancomycin dosage ID consulted, appreciate recommendations Follow-up: CT chest with contrast Legionella and pneumococcal urine antigen Sputum culture UA, blood cultures, lactic acid (2) Sepsis ICD Codes: A41.9 - Sepsis, unspecified organism Status: Acute Plan: Patient found to be septic on admission with tachycardia (HR 118), tachypnea (RR 26) with infection source being the lungs. 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 Dr. Leigh is his oncologist, has been following up with him since then. Oncology consulted, appreciate recommendations (4) Chest pain ICD Codes: R07.9 - Chest pain, unspecified Plan: Patient describes symptoms of pleuritic chest pain with deep inspiration resulting in cough. He also describes h/o atypical right sided nonradiating chest pain associated with ingestion of fluconazole medication. Patient states chest pain comes on about 30 minutes after he has taken fluconazole medication and it eventually subsides. No current active chest pain. EKG: Sinus tachycardia, possible right ventricular conduction delay, probable early repolarization Initial troponin: 0.06 Follow-up troponin and EKG 1 Patient placed on telemetry (5) Knee pain ICD Codes: M25.569 - Pain in unspecified knee Plan: Patient with complaint of bilateral knee pain, pain on right knee is worse Consider imaging of right knee (6) Nutrition, metabolism, and development symptoms ICD Codes: R63.8 - Other symptoms and signs concerning food and fluid intake Plan: Fluids: Patient status post 2 IV fluid boluses in the ED, will hold further IVF at this time, patient tolerating p.o. Electrolytes: Replete as needed Nutrition: Regular diet DVT prophylaxis: Lovenox 40 every 24 (J Luis Parker MD, R1) Physician Certification 2 Midnight Certification Type: Admission for Inpatient Services Order for Inpatient Services The services are ordered in accordance with Medicare regulations or non- Medicare payer requirements, as applicable. In the case of services not specified as inpatient-only, they are appropriately provided as inpatient services in accordance with the 2-midnight benchmark. Estimated LOS (days): 4 days is the estimated time the patient will need to remain in the hospital, assuming treatment plan goals are met and no additional complications. Post-Hospital Plan: Not yet determined (J Luis Parker MD, R1) Problem Qualifiers (1) Pneumonia: Qualified Codes: J18.9 - Pneumonia, unspecified organism (2) Knee pain: J Luis Parker MD, R1 Sep 09, 2017 14:35 Azra Santos MD Sep 09, 2017 22:39
[2017-09-09] MEDS ORDERED: ACETAMINOPHEN 325 MG TAB PO PRN (15:15)
[2017-09-09] MEDS ORDERED: NALOXONE HCL 0.4 MG/ML AMP IV PUSH PRN (15:15)
[2017-09-09] MEDS ORDERED: LACTULOSE SYRUP 20 GM/30 ML CUP PO PRN (15:15)
[2017-09-09] MEDS ORDERED: SENNOSIDES 8.6 MG TAB PO PRN (15:15)
[2017-09-09] MEDS ORDERED: MAGNESIUM HYDROXIDE SUSP 30 ML CUP PO PRN (15:15)
[2017-09-09] MEDS ORDERED: Vancomycin Consult Pharmacy 1 EA OTHER SCH (15:30)
[2017-09-09] MEDS ORDERED: VANCOMYCIN INJ 1,500 MG in SODIUM CHLORID 0.9% 500 ML INJ 500 ML IV ONE (15:30)
[2017-09-09] MEDS ORDERED: FLUCONAZOLE 200 MG TAB PO SCH (15:45)
[2017-09-09] MEDS ORDERED: MORPHINE SULFATE 2 MG/ML SYRINGE IV PUSH PRN (15:45)
[2017-09-09] MEDS ORDERED: IOHEXOL 350 MG/ML 10 ML VIAL (for RAD DIAG) IVCONTRAST ONE (16:27)
[2017-09-09] MEDS ORDERED: IBUPROFEN 400 MG TAB PO PRN (16:30)
[2017-09-09] MEDS ORDERED: ALBUTEROL SULFATE 90 MCG/ACT HFA 8 GM INHALER INH PRN (16:30)
[2017-09-09] MEDS: ENOXAPARIN SODIUM 40 MG/0.4 ML SYRINGE SQ SCH (16:34)
[2017-09-09] MEDS: ACETAMINOPHEN 325 MG TAB PO SCH ×2 (16:35→20:34)
--- NOTE | 2017-09-09 16:35 | RADRPT ---
EXAM DATE/TIME: 09/09/2017 16:15 This report includes an Addendum and supersedes previous reports for this exam. [facility] COMPARISON: CT THORAX W CONTRAST, April 26, 2017, 14:38. INDICATIONS : Evaluate for Pneumonia. Patient with lymphoma status post chemotherapy. IV CONTRAST: 74 cc Omnipaque 350 (iohexol) IV RADIATION DOSE: 9.59 CTDIvol (mGy) MEDICAL HISTORY : Hypertension. Herniated discs, T Cell Lymphoma. SURGICAL HISTORY : Right shoulder, infusaport, Bone marrow biopsy. ENCOUNTER: Initial ACUITY: 1 day PAIN SCALE: 0/10 LOCATION: Bilateral chest TECHNIQUE: Volumetric scanning of the chest was performed. Using automated exposure control and adjustment of t he mA and/or kV according to patient size, radiation dose was kept as low as reasonably achievable to obtain optimal diagnostic quality images. DICOM format image data is available electronically for review and comparison. Follow-up recommendations for detected pulmonary nodules are based at a minimum on nodule size and pa tient risk factors according to Fleischner Society Guidelines. FINDINGS: LUNGS: Consolidative alveolar infiltrate is present throughout portions of the right lung involving the uppe r lobe, middle lobe and lower lobe. There are areas of air bronchograms. There is milder patchy infil trate in the medial lingula and left upper lobe. The left lower lobe remains clear. Volume loss remai ns in the right hemithorax with mediastinal shift to the right. PLEURA: Minimal right fluid is now noted improved from the prior study. There is no left effusion. MEDIASTINUM: The previously noted extensive anterior mediastinal adenopathy has significantly improved with only a small amount of residual abnormal soft tissue density noted. This measures up to approximately 2.9 x 0.7 cm in diameter compared to 7 x 10 cm on the prior study. There is no new adenopathy. There is mi nimal pericardial fluid noted which is decreased from the prior study. AXILLAE: Within normal limits. No lymphadenopathy. SKELETAL: Within normal limits for patient age. MISCELLANEOUS: The visualized upper abdominal organs demonstrate no acute abnormality. CONCLUSION: 1. New diffuse alveolar airspace disease in the right lung with areas of consolidation most character istic of pneumonia. Volume loss remains in the right hemithorax. 2. Significant improvement in mediastinal adenopathy with smaller amount of anterior mediastinal soft tissue remaining. 3. Mild infiltrate medial lingula and left upper lobe. Terence Dominguez MD on September 09, 2017 at 16:27 Board Certified Radiologist. This report was verified electronically. ADDENDUM: COMPARISON: CT PULMONARY ANGIOGRAM, August 25, 2017, 9:13. On 08/25/2017 has been increasing consolidation in the right upper lobe, right middle lobe and right lo wer lobe. The milder coarse infiltrate in the left lung is stable. Terence Dominguez MD on September 09, 2017 at 16:51 Board Certified Radiologist. This report was verified electronically.
[2017-09-09 16:39] VITALS: BP 137/75; PULSE 103; RESP 23; O2SAT 97
[2017-09-09 16:56] LABS: BILIRUBIN, URINE NEG (NEG); BLOOD, URINE NEG (NEG); GLUCOSE,URINE NEG (NEG); KETONE, URINE NEG (NEG); NITRITE,URINE NEG (NEG); URINE COLOR LIGHT-YELLOW (YELLW/STRAW); URINE LEUKOCYTE ESTERASE NEG (NEG)
[2017-09-09] MEDS: VANCOMYCIN INJ 2,000 MG in SODIUM CHLORID 0.9% 500 ML INJ 500 ML IV SCH (17:25)
[2017-09-09] MEDS ORDERED: VORICONAZOLE 200 MG TAB PO SCH (18:00)
[2017-09-09] MEDS: methylPREDNISolone SOD SUCC 40 MG/1 ML VIAL IV PUSH SCH (18:00)
[2017-09-09] MEDS ORDERED: predniSONE 10 MG TAB PO SCH (18:00)
[2017-09-09] MEDS ORDERED: MORPHINE SULFATE 8 MG/ML INJ IV PUSH PRN (18:15)
[2017-09-09] MEDS: RESP: ALBUTEROL 2.5 MG/3 ML NEB (SCH) NEB ×2 (19:39→23:27)
[2017-09-09 19:40] VITALS: O2SAT 97
[2017-09-09] MEDS: PIPERACIL-TAZO 4.5 GM PREMIX 100 ML IV SCH (19:55)
[2017-09-09 20:00] VITALS: BP 141/86; PULSE 103; RESP 16; TEMP 97.8; O2SAT 97
[2017-09-09] MEDS: DOCUSATE SODIUM 50 MG/SENNA 8.6 MG TAB PO SCH (20:34)
--- NOTE | 2017-09-09 20:55 | EKG ---
Date Performed: 09/09/2017 Time Performed: 09:56:52 PTAGE: 42 years EKG: SINUS TACHYCARDIA POSSIBLE RIGHT VENTRICULAR CONDUCTION DELAY ABNORMAL RHYTHM ECG NO PREVIOUS TRACING DOCTOR: Lanre Hoover Interpretating Date/Time 09/09/2017 20:54:02
[2017-09-09] MEDS: SODIUM CHLOR 0.9% 1000 ML INJ 1,000 ML IV SCH (23:33)
[2017-09-10] VITALS (8 sets, daily range): BP systolic 132–139; BP diastolic 60–92; PULSE 80–113; RESP 16–20; TEMP 97.4–98.9; O2SAT 92–98
[2017-09-10] MEDS: PIPERACIL-TAZO 4.5 GM PREMIX 100 ML IV SCH ×4 (00:22→17:05)
[2017-09-10] MEDS: MORPHINE SULFATE 8 MG/ML INJ IV PUSH PRN ×6 (00:44→21:01)
[2017-09-10] MEDS: ACETAMINOPHEN 325 MG TAB PO SCH ×6 (00:44→21:01)
[2017-09-10] MEDS ORDERED: VANCOMYCIN INJ 1,500 MG in SODIUM CHLORID 0.9% 500 ML INJ 500 ML IV SCH (03:00)
[2017-09-10] MEDS: RESP: ALBUTEROL 2.5 MG/3 ML NEB (SCH) NEB ×6 (03:37→23:24)
[2017-09-10] MEDS: VANCOMYCIN INJ 2,000 MG in SODIUM CHLORID 0.9% 500 ML INJ 500 ML IV SCH ×2 (05:01→17:45)
[2017-09-10] MEDS: VORICONAZOLE 200 MG TAB PO SCH ×2 (05:05→17:05)
[2017-09-10 05:49] LABS: AUTOMATED NEUTROPHIL # 6.6 TH/MM3 (1.8-7.7); BASOPHIL % 0.2 % (0.0-2.0); HEMATOCRIT 33.7 % (39.0-51.0); HEMOGLOBIN 10.9 GM/DL (13.0-17.0); LYMPH % 1.7 % (9.0-44.0); LYMPHOCYTE # 0.1 TH/MM3 (1.0-4.8); MEAN CELL VOLUME 86.9 FL (80.0-100.0); MEAN CORPUSCULAR HEMOGLOBIN 28.2 PG (27.0-34.0); MEAN CORPUSCULAR HGB CONC 32.4 % (32.0-36.0); MEAN PLATELET VOLUME 6.8 FL (7.0-11.0); MONO % 3.6 % (0.0-8.0); MONOCYTE # 0.3 TH/MM3 (0-0.9); NEUT % 94.5 % (16.0-70.0); PLATELET COUNT 162 TH/MM3 (150-450); RED BLOOD COUNT 3.88 MIL/MM3 (4.50-5.90); RED CELL DISTRIBUTION WIDTH 19.4 % (11.6-17.2)
[2017-09-10 06:15] LABS: ALBUMIN 2.6 GM/DL (3.4-5.0); AST (GOT) 27 U/L (15-37); BICARBONATE 26.3 MEQ/L (21.0-32.0); BLOOD UREA NITROGEN 13 MG/DL (7-18); CHLORIDE 103 MEQ/L (98-107); CREATININE 0.77 MG/DL (0.60-1.30); GLOMERULAR FILTRATION RATE 111 ML/MIN (>89); GLUCOSE,RANDOM 179 MG/DL (74-106); SODIUM (NA) 138 MEQ/L (136-145)
[2017-09-10 06:16] LABS: ALT (GPT) 85 U/L (12-78)
[2017-09-10 06:17] LABS: ALKALINE PHOSPHATASE 59 U/L (45-117); TOTAL BILIRUBIN ADULT 0.3 MG/DL (0.2-1.0); TOTAL PROTEIN 6.3 GM/DL (6.4-8.2)
--- NOTE | 2017-09-10 06:59 | MB ---
cc: Aysha Leigh MD DATE: 09/09/2017 REFERRING PHYSICIAN: Dr. Parker. CHIEF COMPLAINT: Dr. Parker requested consultation for Mr. Turner regarding T-cell lymphoma associated with worsening right lung infiltrate. HISTORY OF PRESENT ILLNESS: Mr. 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 He was in remission on a CT-PET scan in 06/2017. He was admitted to the hospital on 08/25/2017 with increasing shortness of breath and failure to respond to antibiotic therapy prescribed by urgent care physician. He had a CT angiogram of the chest that showed multifocal airspace consolidation throughout the right hemithorax and anteromedial aspect of the left upper lobe. This was consistent with an infectious process. Infectious disease was consulted. He was placed on multiple antibiotic therapy. A process of elimination, he was started on antibiotic therapy, both antibacterial and antifungal. Ultimately, the antibiotics were discontinued and was placed on voriconazole. He appears to have been improving on the voriconazole and steroids. He was discharged home with followup on an outpatient basis. During his hospitalization, a bronchoscopy was performed. The results of bronchoscopy were negative. Dr. Dwyer performed a serologic evaluation for infectious disease. The results were essentially negative for fungal. The case was reviewed with Dr. Dwyer at the time of Mr. Turner's outpatient followup. Again, he was clinically improving. He was completing his course of voriconazole. He completed the 2-week course of voriconazole and he was switched to fluconazole as prophylaxis since Mr. Turner was pending a bone marrow transplant at the end of his chemotherapy regimen. His fluconazole dose is 400 mg a day. Mr. Turner was taking 200 in the morning and 200 in the evening. He was compliant with this. He was pending an outpatient followup CT scan; however, over the weekend he developed progressive shortness of breath. He was becoming tighter in his chest. He could barely get out of the shower and thus was prompted by his to come into the hospital. Followup CT scan on 09/09/2017 showed new diffuse alveolar airspace disease. Imaging study was reviewed with Dr. Terence Abrams. CT scan showed increased consolidation in the right upper lobe, right middle lobe and right lower lobe. The more coarse infiltrate in the left lung is stable. He looks clinically more worse than his CT angiogram from 08/25/2017, which is essentially about 2 weeks ago. He was subsequently admitted to the hospital and started on empiric antibiotic therapy. Infectious disease was consulted. Hematology/Oncology was consulted. Mr. Turner in between has been seen by transplant evaluation at [facility]. He is a candidate for a transplant. He was pending to receive his last cycle of CHOP chemotherapy after his recovery from the above infection and transplant proceedings in the beginning of October. He denies any fevers, chills or night sweats. In retrospect, he feels that his shortness of breath was progressive. He feels that it did not improve as much as the bone pain and muscle aches that he is experiencing. We reviewed his labs. He has a mild normocytic anemia. His white count was normal. His platelet count was normal. His initial presentation of T-cell lymphoblastic lymphoma was a pleural effusion and a large mediastinal mass. PAST MEDICAL HISTORY: T-cell lymphoblastic lymphoma, chemotherapy-induced anemia, asthma, right lung infiltrate or herniated disk. PAST SURGICAL HISTORY: Port placement, thoracentesis, CT-guided mediastinal mass biopsy. ALLERGIES: NO KNOWN DRUG ALLERGIES. FAMILY HISTORY: No family history of cancer. SOCIAL HISTORY: He is , lives with his and children. He is a never smoker. He denies any alcohol or illicit drug use. He works for a [employer] company and is currently on leave. MEDICATIONS: NO KNOWN DRUG ALLERGIES. CURRENT MEDICATIONS: 1. Azithromycin. 2. Voriconazole. 3. Morphine. 4. Naa-Colace. 5. Albuterol. 6. Piperacillin. 7. Tazobactam. 8. Solu-Medrol. 9. Vancomycin. 10. Albuterol. PHYSICAL EXAMINATION: VITAL SIGNS: Temperature 99.3, heart rate 103, respiratory rate 23, blood pressure 137/75, saturation 97%. GENERAL: Mr. Turner is a well-developed, well-nourished man. He is beginning to have hanley faces from the steroids. HEENT: His pupils are round and reactive. Oropharynx is clear. No thrush. NECK: Supple. LUNGS: Diminished breath sounds in the right lung field. CARDIOVASCULAR: Reveals tachycardia. ABDOMEN: Large and benign. EXTREMITIES: Lower extremities with no edema. NEUROLOGIC: Nonfocal. LABORATORY DATA: Significant for a mild leukocytosis, white blood cell count of 13.0, platelet count is decrease of 195, hemoglobin 12.6. LDH is increased at 565. ASSESSMENT AND PLAN: Mr. Turner is a 43-year-old man with T-cell lymphoblastic lymphoma who responded to CHOP chemotherapy. In between his cycle of CHOP chemotherapy, he developed progressive symptoms and was admitted with a right lung infiltrate. He was treated with antibiotic therapy and eventually with voriconazole and appears to have responded. He became acutely worse over the weekend. Imaging study shows worsening infiltrate of the right lung. I had a lengthy discussion with Mr. Turner my concern for underlying infection given his diagnosis of T-cell lymphoblastic lymphoma. I am also concerned about recurrence of his T-cell lymphoma in between his cycles of chemotherapy which portends a poor prognosis. I will consult with Dr. Aleman, his form coverer, who performed a bronchoscopy. He will need a biopsy of the right lung infiltrate. As reviewed with Dr. Abrams, there is no mass that could be biopsied CT-guided. We will consult with Dr. Tinsley of cardiothoracic surgery to see if it might be amenable for a thorascopic biopsy for a diagnosis. It is important to rule out infectious etiology as well as confirm a recurrence of his T-cell lymphoblastic lymphoma which is progressing in between cycles of chemotherapy. Mr. Turner's questions were answered to his satisfaction. Emotional support is provided. He continues on pain medication, morphine for his shortness of breath. We will monitor for his fever. Infectious disease consultation is pending. MD ANURAG Viera/ESTELLE , 09:47 PM , 06:59 AM
[2017-09-10] MEDS: SODIUM CHLOR 0.9% 1000 ML INJ 1,000 ML IV SCH ×3 (08:38→21:02)
[2017-09-10] MEDS: methylPREDNISolone SOD SUCC 40 MG/1 ML VIAL IV PUSH SCH ×2 (08:39→21:00)
[2017-09-10] MEDS: DOCUSATE SODIUM 50 MG/SENNA 8.6 MG TAB PO SCH ×2 (08:40→21:01)
[2017-09-10] MEDS: AZITHROMYCIN INJ 500 MG in SODIUM CHLOR 0.9% 250 ML INJ 250 ML IV SCH (10:51)
--- NOTE | 2017-09-10 11:26 | PD.ID.CON ---
History of Present Illness Service ID Consult Requested By //Elena Reason for Consult Evaluation and Mment of recurrent Pneumonia in a patient with T cell Lymphoma. Primary Care Physician No Primary Care Physician Diagnoses: History of Present Illness Mr. 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 Patient is known to me from his last admission. He reports he underwent 6 sessions of chemotherapy and Radiation therapy so far. He went into remission and CT PET scan from 06/2017 was clear. He follows with of Oncology. He continued on CHOP chemotherapy. In early part of July patient was short of breath. He went to an urgent care in [place] and due to worsening Shortness of breath was admitted to hospital. CXR and CT chest during that admission was diffuse bilateral scattered infiltrates. He did not respond to IV antibiotics but when voriconazole was empirically added he responded well and was discharged home. He completed a 2 week course of voriconazole and improved significantly. His only complaint in the 2 week period was the joint pains. He saw in follow up. She switched him to oral Diflucan with a plan to keep him on it till after chemo and BMTs if determined as candidate. He reports that within 2-3 days of this change he felt worse significantly and now represents to hospital with worsening shortness of breath. Upon discussion with admitting team patient had difficulty completing sentences yesterday and would get winded but today looked much improved on regimen of IV antibiotics, atypical coverage with Azithro and Voriconazole that was empirically restarted yday. At the time of my evaluation, patient is on regular floor. At time of my visit patient was seen by Pulmonology and / residency team. He was sitting up in bed with knees folded appeared comfortable, able to complete sentences. He reported improvement in symptoms since admission and the admitting team echoed similarly. Review of Systems Constitutional: DENIES: Diaphoretic episodes, Fatigue, Fever, Weight gain, Weight loss, Chills, Dizziness, Change in appetite, Night Sweats Endocrine: DENIES: Heat/cold intolerance, Polydipsia, Polyuria, Polyphagia Eyes: DENIES: Blurred vision, Diplopia, Eye inflammation, Eye pain, Vision loss , Photosensitivity, Double Vision Ears, nose, mouth, throat: DENIES: Tinnitus, Hearing loss, Vertigo, Nasal discharge, Oral lesions, Throat pain, Hoarseness, Ear Pain, Running Nose, Epistaxis, Sinus Pain, Toothache, Odynophagia Respiratory: COMPLAINS OF: Shortness of breath, DENIES: Apneas, Cough, Snoring , Wheezing, Hemoptysis, Sputum production Cardiovascular: COMPLAINS OF: Chest pain (more a tightness.) Gastrointestinal: DENIES: Abdominal pain, Black stools, Bloody stools, Constipation, Diarrhea, Nausea, Vomiting, Difficulty Swallowing, Anorexia Genitourinary: DENIES: Sexual dysfunction, Urinary frequency, Urinary incontinence, Urgency, Hematuria, Dysuria, Nocturia, Penile Discharge, Testicular Pain, Testicular Swelling Musculoskeletal: COMPLAINS OF: Joint pain (left knee pain ) Integumentary: DENIES: Abnormal pigmentation, Nail changes, Pruritus, Rash Hematologic/lymphatic: DENIES: Bruising, Lymphadenopathy Immunologic/allergic: DENIES: Eczema, Urticaria Neurologic: DENIES: Abnormal gait, Headache, Localized weakness, Paresthesias, Seizures, Speech Problems, Tremor, Poor Balance Except as stated in HPI: all other systems reviewed are Neg Past Family Social History Allergies: Coded Allergies: No Known Allergies (Unverified , 09/09/17) Past Medical History T-cell lymphoblastic lymphoma. Asthma. History of herniated disk. recurrent pneumonia Past Surgical History Port placement, thoracentesis, CT-guided biopsy of mediastinal mass Bronchoscopy. Reported Medications Reported Meds & Active Scripts Active Prednisone 10 Mg Tab 10 Mg PO TID 14 Days Reported Morphine IR (Morphine Sulfate) 15 Mg Tab 15 Mg PO Q4H PRN Fluconazole 200 Mg Tab 200 Mg PO DAILY Active Ordered Medications Current Medications Medications (Trade) Dose Ordered Sig/Suzan Route Start Time Stop Time Status Last Admin (NS Flush) 2 ml UNSCH PRN IVF 09/09/17 10:15 (Lovenox Inj) 40 mg Q24H SQ 09/09/17 16:00 Future Hold 09/09/17 16:34 (Narcan Inj) 0.4 mg UNSCH PRN IV PUSH 09/09/17 15:15 (Naa-Colace) 1 tab BID PO 09/09/17 21:00 09/10/17 08:40 (Milk Of Magnesia Liq) 30 ml Q12H PRN PO 09/09/17 15:15 (Senokot) 17.2 mg Q12H PRN PO 09/09/17 15:15 (Dulcolax Supp) 10 mg DAILY PRN RECTAL 09/09/17 15:15 (Lactulose Liq) 30 ml DAILY PRN PO 09/09/17 15:15 Pharmacy Profile Note 0 ml @ 0 mls/hr UNSCH OTHER 09/09/17 15:30 (Heparin Central Flush) 500 units UNSCH IV FLUSH 09/09/17 15:30 Vancomycin HCl 2000 mg/Sodium Chloride 520 ml @ 260 mls/hr Q12H IV 09/09/17 17:00 09/10/17 05:01 Azithromycin 500 mg/Sodium Chloride 250 ml @ 250 mls/hr Q24H IV 09/10/17 11:00 09/10/17 10:51 Piperacillin Sod/ Tazobactam Sod 100 ml @ 200 mls/hr Q6H IV 09/09/17 18:00 09/10/17 17:05 (Tylenol) 650 mg Q4H PO 09/09/17 17:00 09/13/17 16:59 09/10/17 16:43 (SoluMEDROL INJ) 40 mg Q12HR IV PUSH 09/09/17 18:00 09/10/17 08:39 (Proair Hfa Inh) 2 puff Q6H PRN INH 09/09/17 16:30 (Albuterol Neb) 2.5 mg Q4HR NEB NEB 09/09/17 20:00 09/10/17 15:27 (Vfend) 200 mg Q12H PO 09/10/17 06:00 09/10/17 17:05 (Morphine Inj) 5 mg Q3HR PRN IV PUSH 09/09/17 21:45 09/10/17 16:43 Sodium Chloride 1,000 ml @ 140 mls/hr Q7H9M IV 09/09/17 22:45 09/10/17 12:53 (Lovenox Inj) 40 mg ONCE ONCE SQ 09/10/17 17:15 09/10/17 17:16 UNV Family History reviewed and NC to current ID problems. Social History Lives at home with , children. Has 2 pet dogs. reports the last home they lived in 2 years back had lot of mold and oglesby had to be stripped off and fumigated. Last travel was 1 year back to [facility]. No cruises. No travel abroad. Not part of any services in past. Physical Exam Vital Signs Vital Signs Date Time Temp Pulse Resp B/P (MAP) Pulse Ox O2 Delivery O2 Flow Rate FiO2 09/10/17 08:45 Nasal Cannula 4.00 09/10/17 08:13 98 Nasal Cannula 3.00 09/10/17 08:01 97.9 80 16 132/71 (91) 97 09/10/17 04:00 Nasal Cannula 4.00 09/10/17 04:00 97.9 82 20 132/60 (84) 95 09/10/17 00:00 Simple Mask 4.00 09/10/17 00:00 98.1 88 18 138/77 (97) 95 09/09/17 20:00 Nasal Cannula 4.00 09/09/17 20:00 97.8 103 16 141/86 (104) 97 09/09/17 19:40 97 Nasal Cannula 3.00 09/09/17 19:33 20 09/09/17 18:34 09/09/17 16:39 103 23 137/75 (95) 97 Nasal Cannula 4.00 Physical Exam GENERAL: This is a well-nourished, well-developed patient, in no apparent distress. SKIN: No rashes, ecchymoses or lesions. Cool and dry. HEAD: Atraumatic. Normocephalic. No temporal or scalp tenderness. EYES: Pupils equal round and reactive. Extraocular motions intact. No scleral icterus. No injection or drainage. ENT: Nose without bleeding, purulent drainage or septal hematoma. Throat without erythema, tonsillar hypertrophy or exudate. Uvula midline. Airway patent. NECK: Trachea midline. Supple, nontender, no meningeal signs. No LN'jessy CARDIOVASCULAR: HS audible. No murmur. RESPIRATORY: Clear to auscultation. Breath sounds equal bilaterally. No wheezes , rales, or rhonchi. GASTROINTESTINAL: Abdomen soft, non-tender, nondistended. No Organomegaly. MUSCULOSKELETAL: Extremities without clubbing, cyanosis, or edema. No joint tenderness, effusion, or edema noted. No calf tenderness. Negative Homans sign bilaterally. NEUROLOGICAL: Awake and alert. Non focal exam Psych cooperative Port site ok. IV line sites with no e.o infection. Laboratory Laboratory Tests Test 09/09/17 16:00 09/09/17 16:35 09/09/17 17:40 09/09/17 19:35 Urine Color LIGHT-YELLOW Urine Turbidity CLEAR Urine pH 5.0 Urine Specific [employer] 1.016 Urine Protein NEG Urine Glucose (UA) NEG Urine Ketones NEG Urine Occult Blood NEG Urine Nitrite NEG Urine Bilirubin NEG Urine Urobilinogen LESS THAN 2.0 Urine Leukocyte Esterase NEG Urine RBC 1 Urine WBC LESS THAN 1 Microscopic Urinalysis Comment CULT NOT INDICATED Lactic Acid Level 1.0 Blood Gas Puncture Site RT RADIAL Blood Gas Patient Temperature 98.6 Blood Gas HCO3 23 Blood Gas Base Excess -1.4 Blood Gas Oxygen Saturation 96 Arterial Blood pH 7.36 Arterial Blood Partial Pressure CO2 42 Arterial Blood Partial Pressure O2 102 Arterial Blood Oxygen Content 14.9 Arterial Blood Carboxyhemoglobin 1.7 Arterial Blood Methemoglobin 0.5 Blood Gas Hemoglobin 11.0 Oxygen Delivery Device NASAL CANNULA Blood Gas Liter Flow 4 Troponin I 0.08 Test 09/10/17 05:15 White Blood Count 7.0 Red Blood Count 3.88 Hemoglobin 10.9 Hematocrit 33.7 Mean Corpuscular Volume 86.9 Mean Corpuscular Hemoglobin 28.2 Mean Corpuscular Hemoglobin Concent 32.4 Red Cell Distribution Width 19.4 Platelet Count 162 Mean Platelet Volume 6.8 Neutrophils (%) (Auto) 94.5 Lymphocytes (%) (Auto) 1.7 Monocytes (%) (Auto) 3.6 Eosinophils (%) (Auto) 0.0 Basophils (%) (Auto) 0.2 Neutrophils # (Auto) 6.6 Lymphocytes # (Auto) 0.1 Monocytes # (Auto) 0.3 Eosinophils # (Auto) 0.0 Basophils # (Auto) 0.0 CBC Comment DIFF FINAL Differential Comment Blood Urea Nitrogen 13 Creatinine 0.77 Random Glucose 179 Total Protein 6.3 Albumin 2.6 Calcium Level 9.0 Alkaline Phosphatase 59 Aspartate Amino Transf (AST/SGOT) 27 Alanine Aminotransferase (ALT/SGPT) 85 Total Bilirubin 0.3 Sodium Level 138 Potassium Level 4.6 Chloride Level 103 Carbon Dioxide Level 26.3 Anion Gap 9 Estimat Glomerular Filtration Rate 111 Date/Time Source Procedure Growth Status 09/09/17 16:35 Blood Peripheral Aerobic Blood Culture - Preliminary NO GROWTH IN 1 DAY Resulted 09/09/17 16:35 Blood Peripheral Anaerobic Blood Culture - Preliminary NO GROWTH IN 1 DAY Resulted 09/09/17 16:00 Urine Clean Catch Legionella Antigen - Final PRESUMPTIVE NEGATIVE FOR LEGIONELLA P... Complete 09/09/17 16:00 Urine Clean Catch Streptococcus pneumoniae Antigen (M - Final PRESUMPTIVE NEGATIVE FOR STREPTOCOCCU... Complete Result Diagram: 09/10/17 0515 09/10/17 0515 Imaging Last Impressions Chest X-Ray 09/09/17 1015 Signed Impressions: Service Date/Time: Saturday, September 09, 2017 10:25 - CONCLUSION: Increasing infiltrate in density in the right lung with apparent volume loss. Terence Dominguez MD Chest CT 09/09/17 0000 Signed Impressions: Service Date/Time: Saturday, September 09, 2017 16:15 - CONCLUSION: 1. New diffuse alveolar airspace disease in the right lung with areas of consolidation most characteristic of pneumonia. Volume loss remains in the right hemithorax. 2. Significant improvement in mediastinal adenopathy with smaller amount of anterior mediastinal soft tissue remaining. 3. Mild infiltrate medial lingula and left upper lobe. Terence Dominguez MD ADDENDUM: COMPARISON: CT PULMONARY ANGIOGRAM, August 25, 2017, 9:13. On 08/25/2017 has been increasing consolidation in the right upper lobe, right middle lobe and right lower lobe. The milder coarse infiltrate in the left lung is stable. Terence Dominguez MD Assessment and Plan Assessment and Plan Recurrent Pneumonia. DDX: Fungal ?? aspergillosis (prior h/o exposure to mold). Fungal cultures from last bronch negative so far but not final. Serologies may not be reliable as patient is immunecompromised. atypical mycobacteria Lymphoma infiltrates seem less likely as CT right side consolidation more s/ o pneumonia rather than lymphoma. Mediastinal LNpathy improved since last treated and seen in hospital. 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 Recs Continue Zosyn IV (cannot perform Galactomannan assay as it interferes with Zosyn and can give false negative test results) Continue Vanco IV Continue Azithro IV Continue Voriconazaole Monitor QT interval on 12 lead EKG. Consider Tele monitoring if chest tightness persists. dagoberto Camargo: Bronch planned. If no inflammation on bronch will recommend Lung biopsy. Dw patient in presence of and Primary team: this time picture in favor of pneumonia. Would recommend medical management as pneumonia, repeat Bronch as first approach. If inflammation on repeat bronch then will repeat CXR plus CT chest in few days after medical mment. If improved may wait n watch. If infiltrates not improved progress with open lung biopsy. If no inflammation on bronch would recommend Open lung biopsy with specimen to be sent for following: Pathology Micro: for regular cultures, AFB and Fungal cultures. Alternatively progressing with Open Lung biopsy first is an option but is the more invasive option. Patient agreeable with trying less invasive option first since he feels he is clinically improving. Dw above plan and she agrees with this approach. Dw Primary team Time spent in excess of 80 mins, critical thinking and decision making. Coordination of care with multiple MDs, review of medical records from prior visits. Sarah Dwyer MD Sep 10, 2017 11:26
--- NOTE | 2017-09-10 11:48 | PD.ONC.PN ---
Subjective Subjective Remarks Afebrile overnight. Patient having bone pain again since he was resumed on the Vfend. He states his pain is controlled with the current pain regimen. Is dyspneic with exertion. Needs O2 at rest. Wants to have biopsy. wants to figure out exactly whats causing his lung problems. Objective Data Date Time Temp Pulse Resp B/P (MAP) Pulse Ox O2 Delivery O2 Flow Rate FiO2 09/10/17 08:45 Nasal Cannula 4.00 09/10/17 08:13 98 Nasal Cannula 3.00 09/10/17 08:01 97.9 80 16 132/71 (91) 97 09/10/17 04:00 Nasal Cannula 4.00 09/10/17 04:00 97.9 82 20 132/60 (84) 95 09/10/17 00:00 Simple Mask 4.00 09/10/17 00:00 98.1 88 18 138/77 (97) 95 09/09/17 20:00 Nasal Cannula 4.00 09/09/17 20:00 97.8 103 16 141/86 (104) 97 09/09/17 19:40 97 Nasal Cannula 3.00 09/09/17 19:33 20 09/09/17 18:34 09/09/17 16:39 103 23 137/75 (95) 97 Nasal Cannula 4.00 09/10/17 09/10/17 09/10/17 07:00 15:00 23:00 Intake Total 460 ml Balance 460 ml Result Diagram: 09/10/17 0515 09/10/17 0515 Laboratory Results Laboratory Tests Test 09/09/17 16:00 09/09/17 16:35 09/09/17 17:40 09/09/17 19:35 Urine Color LIGHT-YELLOW Urine Turbidity CLEAR Urine pH 5.0 Urine Specific [place] 1.016 Urine Protein NEG mg/dL Urine Glucose (UA) NEG mg/dL Urine Ketones NEG mg/dL Urine Occult Blood NEG Urine Nitrite NEG Urine Bilirubin NEG Urine Urobilinogen LESS THAN 2.0 MG/DL Urine Leukocyte Esterase NEG Urine RBC 1 /hpf Urine WBC LESS THAN 1 /hpf Microscopic Urinalysis Comment CULT NOT INDICATED Lactic Acid Level 1.0 mmol/L Blood Gas Puncture Site RT RADIAL Blood Gas Patient Temperature 98.6 Blood Gas HCO3 23 mmol/L Blood Gas Base Excess -1.4 mmol/L Blood Gas Oxygen Saturation 96 % Arterial Blood pH 7.36 Arterial Blood Partial Pressure CO2 42 mmHg Arterial Blood Partial Pressure O2 102 mmHG Arterial Blood Oxygen Content 14.9 Vol % Arterial Blood Carboxyhemoglobin 1.7 % Arterial Blood Methemoglobin 0.5 % Blood Gas Hemoglobin 11.0 G/DL Oxygen Delivery Device NASAL CANNULA Blood Gas Liter Flow 4 L/M Troponin I 0.08 NG/ML Test 09/10/17 05:15 White Blood Count 7.0 TH/MM3 Red Blood Count 3.88 MIL/MM3 Hemoglobin 10.9 GM/DL Hematocrit 33.7 % Mean Corpuscular Volume 86.9 FL Mean Corpuscular Hemoglobin 28.2 PG Mean Corpuscular Hemoglobin Concent 32.4 % Red Cell Distribution Width 19.4 % Platelet Count 162 TH/MM3 Mean Platelet Volume 6.8 FL Neutrophils (%) (Auto) 94.5 % Lymphocytes (%) (Auto) 1.7 % Monocytes (%) (Auto) 3.6 % Eosinophils (%) (Auto) 0.0 % Basophils (%) (Auto) 0.2 % Neutrophils # (Auto) 6.6 TH/MM3 Lymphocytes # (Auto) 0.1 TH/MM3 Monocytes # (Auto) 0.3 TH/MM3 Eosinophils # (Auto) 0.0 TH/MM3 Basophils # (Auto) 0.0 TH/MM3 CBC Comment DIFF FINAL Differential Comment Blood Urea Nitrogen 13 MG/DL Creatinine 0.77 MG/DL Random Glucose 179 MG/DL Total Protein 6.3 GM/DL Albumin 2.6 GM/DL Calcium Level 9.0 MG/DL Alkaline Phosphatase 59 U/L Aspartate Amino Transf (AST/SGOT) 27 U/L Alanine Aminotransferase (ALT/SGPT) 85 U/L Total Bilirubin 0.3 MG/DL Sodium Level 138 MEQ/L Potassium Level 4.6 MEQ/L Chloride Level 103 MEQ/L Carbon Dioxide Level 26.3 MEQ/L Anion Gap 9 MEQ/L Estimat Glomerular Filtration Rate 111 ML/MIN Culture Results Microbiology Date/Time Source Procedure Growth Status 09/09/17 16:35 Blood Peripheral Aerobic Blood Culture - Preliminary NO GROWTH IN 1 DAY Resulted 09/09/17 16:35 Blood Peripheral Anaerobic Blood Culture - Preliminary NO GROWTH IN 1 DAY Resulted 09/09/17 16:30 Blood Peripheral Aerobic Blood Culture - Preliminary NO GROWTH IN 1 DAY Resulted 09/09/17 16:30 Blood Peripheral Anaerobic Blood Culture - Preliminary NO GROWTH IN 1 DAY Resulted 09/09/17 16:00 Urine Clean Catch Legionella Antigen - Final PRESUMPTIVE NEGATIVE FOR LEGIONELLA P... Complete 09/09/17 16:00 Urine Clean Catch Streptococcus pneumoniae Antigen (M - Final PRESUMPTIVE NEGATIVE FOR STREPTOCOCCU... Complete Administered Medications Medications (Trade) Dose Ordered Sig/Suzan Route PRN Reason Start Time Stop Time Status Last Admin Dose Admin Enoxaparin Sodium (Lovenox Inj) 40 mg Q24H SQ 09/09/17 16:00 Future Hold 09/09/17 16:34 Senna/Docusate Sodium (Naa-Colace) 1 tab BID PO 09/09/17 21:00 09/10/17 08:40 Vancomycin HCl 2000 mg/Sodium Chloride 520 ml @ 260 mls/hr Q12H IV 09/09/17 17:00 09/10/17 05:01 Azithromycin 500 mg/Sodium Chloride 250 ml @ 250 mls/hr Q24H IV 09/10/17 11:00 09/10/17 10:51 Piperacillin Sod/ Tazobactam Sod 100 ml @ 200 mls/hr Q6H IV 09/09/17 18:00 09/10/17 05:16 Acetaminophen (Tylenol) 650 mg Q4H PO 09/09/17 17:00 09/13/17 16:59 09/10/17 08:40 Methylprednisolone Sodium Succinate (SoluMEDROL INJ) 40 mg Q12HR IV PUSH 09/09/17 18:00 09/10/17 08:39 Albuterol Sulfate (Albuterol Neb) 2.5 mg Q4HR NEB NEB 09/09/17 20:00 09/10/17 08:12 Voriconazole (Vfend) 200 mg Q12H PO 09/10/17 06:00 09/10/17 05:05 Morphine Sulfate (Morphine Inj) 5 mg Q3HR PRN IV PUSH PAIN SCALE 6 TO 10 09/09/17 21:45 09/10/17 08:40 Sodium Chloride 1,000 ml @ 140 mls/hr Q7H9M IV 09/09/17 22:45 09/10/17 08:38 Objective Remarks GENERAL: Middle aged male, sitting up in bed, on 4L O2 via NC SKIN: Warm and dry. HEAD: Normocephalic. EYES: No injection or drainage. NECK: Supple, trachea midline. CARDIOVASCULAR: Regular rate and rhythm RESPIRATORY: diminished breath sounds, right lung, otherwise clear. GASTROINTESTINAL: Abdomen soft, non-tender, nondistended. EXTREMITIES: No cyanosis NEUROLOGICAL: awake and alert. normal speech. Assessment/Plan Problem List: (1) Pneumonia ICD Codes: J18.9 - Pneumonia, unspecified organism Status: Acute Plan: --unclear etiology --on VFEND --ID following. --needs lung biopsy, CTS consulted. 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 Assessment 42y/o male with T-cell lymphoma admitted with worsening right lung infiltrate. Plan 1. await CTS consult 2. transfer to oncology 3. continue antibiotics/antifungals per ID Attending Statement The exam, history, and the medical decision-making described in the above note were completed with the assistance of the mid-level provider. I reviewed and agree with the findings presented. I attest that I had a [id number] encounter with the patient on the same day, and personally performed and documented my assessment and findings in the medical record. Considered a more conservative approach since pt clinically responding to Voriconazole, bronchoscopy needed to r/o superinfection, thoracoscopic biopsy more invasive. Discussed w/ ID, defer thorascopic lung biopsy for now. Proceed with bronchoscopy for washing, culture and attempt biopsy. Continue current support, pt better spirits, clinically less SOB, able to do more physical activity in the room. Problem Qualifiers (1) Pneumonia: Qualified Codes: J18.9 - Pneumonia, unspecified organism Doris Liu Sep 10, 2017 11:48 Aysha Leigh MD Sep 10, 2017 21:14
--- NOTE | 2017-09-10 13:58 | HHI.FPPN ---
Subjective Remarks Patient seen and examined at bedside this morning. No acute events overnight. Patient stated that pain has been well controlled on morphine and Tylenol since restarting voriconazole medication. Shortness of breath has also improved since admission. (J Luis Parker MD, R1) Objective Vitals Vital Signs Date Time Temp Pulse Resp B/P (MAP) Pulse Ox O2 Delivery O2 Flow Rate FiO2 09/10/17 12:01 98.0 107 16 139/90 (106) 92 09/10/17 11:45 Nasal Cannula 4.00 09/10/17 08:45 Nasal Cannula 4.00 09/10/17 08:13 98 Nasal Cannula 3.00 09/10/17 08:01 97.9 80 16 132/71 (91) 97 09/10/17 04:00 Nasal Cannula 4.00 09/10/17 04:00 97.9 82 20 132/60 (84) 95 09/10/17 00:00 Simple Mask 4.00 09/10/17 00:00 98.1 88 18 138/77 (97) 95 09/09/17 20:00 Nasal Cannula 4.00 09/09/17 20:00 97.8 103 16 141/86 (104) 97 09/09/17 19:40 97 Nasal Cannula 3.00 09/09/17 19:33 20 09/09/17 18:34 09/09/17 16:39 103 23 137/75 (95) 97 Nasal Cannula 4.00 I/O 09/09/17 09/09/17 09/09/17 09/10/17 09/10/17 09/10/17 07:00 15:00 23:00 07:00 15:00 23:00 Intake Total 350 ml 2000 ml 460 ml Balance 350 ml 2000 ml 460 ml Intake Oral 460 ml IV Total 350 ml 2000 ml # Voids 3 # Bowel Movements 0 (J Luis Parker MD, R1) Result Diagram: 09/10/17 0515 09/10/17 0515 Imaging Last Impressions Chest X-Ray 09/09/17 1015 Signed Impressions: Service Date/Time: Saturday, September 09, 2017 10:25 - CONCLUSION: Increasing infiltrate in density in the right lung with apparent volume loss. Terence Dominguez MD Chest CT 09/09/17 0000 Signed Impressions: Service Date/Time: Saturday, September 09, 2017 16:15 - CONCLUSION: 1. New diffuse alveolar airspace disease in the right lung with areas of consolidation most characteristic of pneumonia. Volume loss remains in the right hemithorax. 2. Significant improvement in mediastinal adenopathy with smaller amount of anterior mediastinal soft tissue remaining. 3. Mild infiltrate medial lingula and left upper lobe. Terence Dominguez MD ADDENDUM: COMPARISON: CT PULMONARY ANGIOGRAM, August 25, 2017, 9:13. On 08/25/2017 has been increasing consolidation in the right upper lobe, right middle lobe and right lower lobe. The milder coarse infiltrate in the left lung is stable. Terence Dominguez MD Objective Remarks Physical Exam GENERAL: This is a well-nourished, well-developed patient, siting in bed in no apparent distress. SKIN: No rashes, ecchymoses or lesions. Cool and dry. HEAD: Atraumatic. Normocephalic. EYES: Pupils equal round and reactive. Extraocular motions intact. No scleral icterus. No injection or drainage. ENT: Nose without bleeding, purulent drainage or septal hematoma. Airway patent. NECK: Trachea midline. No JVD or lymphadenopathy. Supple, nontender, no meningeal signs. CARDIOVASCULAR: Regular rate and rhythm without murmurs, gallops, or rubs. RESPIRATORY: Rales and crackles noted on Right lower lung base, improved from yesterday. GASTROINTESTINAL: Abdomen slightly distended, soft, non-tender. No hepato- splenomegaly, or palpable masses. No guarding. MUSCULOSKELETAL: Extremities without clubbing, cyanosis, or edema. Mild joint tenderness of knee joint BL, minimal effusion noted around Left knee- improved, knee joint not erythematous or warm to touch. No calf tenderness. +2 DP pulses BL NEUROLOGICAL: Awake and alert. Motor and sensory grossly within normal limits. Normal speech. (J Luis Parker MD, R1) A/P Assessment and Plan Patient is a 42-year-old male with past medical history of T-cell lymphoma presented with: (J Luis Parker MD, R1) Attending Attestation Patient seen and examined. Case reviewed and discussed Agree with plan of care as discussed with me and documented in the resident note. (Azra Santos MD) Problem List: (1) Pneumonia ICD Codes: J18.9 - Pneumonia, unspecified organism Status: Acute Plan: Patient with recent hospitalization for pneumonia thought to be due to fungal etiology. Patient was discharged on voriconazole and switched to fluconazole by medical oncologist due to side effect of severe bone pain and medical oncology plan plan to extend treatment with fluconazole until patient received bone marrow transplant. On admission patient found to be septic with tachycardia (HR 118), tachypnea ( RR 26), leukocytosis (WBC 13) with infection source being the lungs. Chest x-ray: Increasing infiltrate and density in the right lung with apparent volume loss Fungal workup from prior hospitalization was negative. CT chest with contrast showed worsening right lung infiltrate characteristic of pneumonia. UA negative Legionella and pneumococcal urine antigen negative Blood cultures: No growth 1 day Shortness of breath Shortness of breath has improved Patient O2 saturation of 98% on 4 L nasal cannula Albuterol inhaler at bedside Incentive spirometry Albuterol nebulizer every 4 hours for shortness of breath IV methylprednisolone 40 mg every 12hr Tylenol scheduled every 4 for pain IV morphine Q3h PRN for breakthrough pain Antibiotic history: Vancomycin 09/09-- present Azithromycin 09/09-- present Zosyn 09/09-- present Voriconazole po 200 mg 09/09-- present Pharmacy consulted for titration of vancomycin dosage ID consulted, appreciate recommendations [employer] and cardiothoracic surgery consulted by Dr. Leigh, appreciate recommendations Patient right lung infiltration appears to be of infectious etiology. Plan to continue antibiotic and antifungal treatment and bronchoscopy procedure to be done by Dr. Aleman to identify inflammation and determine if open lung biopsy is necessary for micro and pathology evaluation. Follow-up: Sputum culture CMV DNA pcr (2) Sepsis ICD Codes: A41.9 - Sepsis, unspecified organism Status: Resolved Plan: Patient found to be septic on admission with tachycardia (HR 118), tachypnea (RR 26) with infection source being the lungs. 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 follows with Dr. Leigh is his oncologist. Oncology consulted, appreciate recommendations s/p CHOP chemotherapy Right lung infiltrate infection vs recurrence of T cell lymphoma see plan above (4) Chest pain ICD Codes: R07.9 - Chest pain, unspecified Status: Resolved Plan: Patient describes symptoms of pleuritic chest pain with deep inspiration resulting in cough. He also describes h/o atypical right sided nonradiating chest pain associated with ingestion of fluconazole medication. Patient states chest pain comes on about 30 minutes after he has taken fluconazole medication and it eventually subsides. No current active chest pain. EKG: Sinus tachycardia, possible right ventricular conduction delay, probable early repolarization troponin: 0.06-->0.08 Patient placed on telemetry (5) Knee pain ICD Codes: M25.569 - Pain in unspecified knee Plan: Patient with complaint of bilateral knee pain, pain on right knee is worse Consider imaging of right knee (6) Nutrition, metabolism, and development symptoms ICD Codes: R63.8 - Other symptoms and signs concerning food and fluid intake Plan: Fluids: IVF at 140mls/hr, patient tolerating p.o. Electrolytes: Replete as needed Nutrition: Regular diet DVT prophylaxis: Lovenox 40 every 24h (J Luis Parker MD, R1) Problem Qualifiers (1) Pneumonia: Qualified Codes: J18.9 - Pneumonia, unspecified organism (2) Knee pain: J Luis Parker MD, R1 Sep 10, 2017 13:58 Azra Santos MD Sep 13, 2017 13:10
--- NOTE | 2017-09-10 16:17 | MB ---
cc: Rin FarahRin EASTON DATE: 09/10/2017 DATE OF : 1975 HISTORY OF PRESENT ILLNESS: A 42-year-old male, known to our service who we saw back in April 2017. At that time, he was diagnosed with a fairly large anterior mediastinal mass with extension in the perivascular space and also some pleural based nodules on the right. He underwent right thoracentesis back in April where they removed 1500 mL of exudative fluid, no growth in the cultures. He was then diagnosed with T-cell lymphoma was and has been treated with CHOP chemotherapy. Apparently, he was in remission on CT/PET scan in 06/2017. The patient currently has been seen by the transplant evaluation at [facility] for bone marrow transplant and was supposed to receive his last cycle of chemotherapy when he developed some shortness of breath and had failure to respond to antibiotic therapy by his urgent care physician. CT chest showed multifocal airspace consolidation throughout the right hemothorax, anterior medial aspect of the left upper lobe. Infectious Disease was consulted. He was placed on multiple antibiotics, both antifungal and antibacterial. They then discontinued the antibiotics, but was placed on voriconazole and seemed to have been improving. This was on his last admission. Bronchoscopy was performed, which was negative. He completed his course of voriconazole. He was readmitted a couple of days ago for increasing chest tightness and fatigue and shortness of breath. There was again increased consolidation in the right upper lobe. We were consulted to evaluate for possible open lung biopsy. However, he is also being seen by Pulmonology and there is a possibility for a repeat bronchoscopy for possible biopsy today. PAST MEDICAL HISTORY: T-cell lymphoblastic lymphoma, chemo-induced anemia, asthma, right lung infiltrate. PAST SURGICAL HISTORY: Include port placement, multiple thoracenteses CT-guided mediastinal mass biopsy. ALLERGIES: NO KNOWN ALLERGY. FAMILY HISTORY: No family history of cancer. SOCIAL HISTORY: The patient is , lives with his and children. Nonsmoker, no alcohol or drug use. Works for a [employer], currently on leave. CURRENT HOME MEDICATIONS: Include: 1. Fluconazole. 2. Morphine. 3. Prednisone. REVIEW OF SYSTEMS: As above in the HPI. The 12 systems are unremarkable. PHYSICAL EXAMINATION: VITAL SIGNS: Blood pressure 130/80, heart rate of 80-90, afebrile. O2 saturation 94 on 2 liters. GENERAL: The patient is awake, alert, in no acute distress. HEENT: Head is normocephalic, atraumatic. Pupils equal and reactive. Oral mucosa pink, moist. NECK: Supple. No JVD. CARDIOVASCULAR: Heart sounds S1, S2, slightly tachycardic. No rubs or gallops. LUNGS: Diminished in the bases, the right greater than the left. He has some crackles in the right lower base. ABDOMEN: Large, soft, benign. EXTREMITIES: No cyanosis, clubbing or edema. NEUROLOGIC: He is A and O x3. LABORATORY DATA: Hemoglobin 10.9, hematocrit of 33, white cell count of 7, platelet count of 162. Sodium 138, potassium 4.6, BUN of 13, creatinine 0.77. Urinalysis is unremarkable. CMV pending. Micro: Negative. Blood cultures: Negative for Legionella, Streptococcus. IMAGING STUDIES: CT chest: New diffuse alveolar airspace disease in the right lung with areas of consolidation, most consistent of pneumonia. Some improvement in the mediastinal adenopathy. IMPRESSION AND PLAN: This is a history of T-cell lymphoblastic lymphoma with underlying pneumonia that has been treated with broad spectrum, but now he is on azithromycin and voriconazole, also Zosyn and steroids. We have been asked to evaluate the patient for possible open lung biopsy; however, we will wait until we have been notified that they are going to proceed with a bronchoscopy for possible biopsy and if not, then we will proceed with open lung biopsy as per Dr. Frey's discretion. JEMMA Byrd MD JRT/SOLANGE , 03:44 PM , 04:15 PM
[2017-09-10] MEDS ORDERED: PHARMACY ORDERED LAB ONE (16:45)
[2017-09-10] MEDS ORDERED: ENOXAPARIN SODIUM 40 MG/0.4 ML SYRINGE SQ ONE (18:00)
--- NOTE | 2017-09-10 19:58 | MB ---
cc: Francis Aleman MD, Arjun D MD DATE: 09/10/2017 REQUESTING PHYSICIAN: Dr. Leigh REASON FOR EVALUATION: Evaluation for lung infiltrate and bronchoscopy. HISTORY OF PRESENT ILLNESS: Mr. Turner is a pleasant 42-year-old male known to me from the previous admission. He has a history of T-cell lymphoma. He had thoracentesis done and also was found to have a lung infiltrate. He had a bronchoscopy done. Cultures were negative and it was suspected of possible fungus and he was discharged on voriconazole which he was taking as an outpatient, then it was changed to Diflucan. The patient was feeling better until 3 or 4 days ago when he started having increasing tightness in the chest, more short of breath to the extent that he could not do any activities. He denied fever or chills. No night sweats. No cough or sputum production. With these symptoms, he came to the hospital. He had a CT scan of the chest done, which shows new diffuse alveolar airspace disease in the right lung with area of small consolidation volume loss in the right lung and some improvement in the mediastinal adenopathy. He also has small infiltrates in the lingula in the upper lobe. His CBC shows WBC count 7000, hemoglobin 10.9, hematocrit 33.7, MCV 86, platelet count 162. Sodium 130, potassium 4.6, chloride 100, CO2 26, BUN 13, creatinine 0.77. Blood gas on 4 liters nasal cannula, pH 7.36, pCO2 of 42, pO2 of 102, bicarbonate 23. Vancomycin level 7.9. PAST MEDICAL HISTORY: Significant for history of T-cell lymphoma, status post CHOP chemotherapy and he has been considered for bone marrow transplant, history of bronchial asthma, pleural effusion. MEDICATIONS: He is currently taking 1. Zithromax 500 mg a day 2. Voriconazole 200 mg every 12 hours. 3. Morphine for pain. 4. Albuterol nebulizer treatment 5. Zosyn IV 6. Solu-Medrol 40 mg q. 12 hours. 7. Vancomycin IV. ALLERGIES: NO KNOWN DRUG ALLERGIES. SOCIAL HISTORY: He is . He does not work anymore. He worked at a [employer] and dealt with [employer]. He was using a respirator at that time. FAMILY HISTORY: He is . He has 3 daughters. Father at age 46 with a heart attack. Brother and sisters are healthy. REVIEW OF SYSTEMS: He denies any weight loss. No hemoptysis. No DVT or pulmonary embolism. PHYSICAL EXAMINATION: GENERAL: Well built, well-nourished male mildly short of breath not in acute distress. VITAL SIGNS: Blood pressure 138/81, heart rate 113, respirations 16, temperature 97.4. HEENT: Pupils are equal and reactive to light. Oral mucosa and nasal mucosa normal. NECK: Supple. JVP not raised. CHEST: Equal bilaterally. He has rales on the right chest. CARDIOVASCULAR:: S1, S2 normal. ABDOMEN: Benign. EXTREMITIES: No edema. IMPRESSION: 1. Extensive right lung infiltrate and infiltrate in the lingula. Differential diagnosis includes fungal infection, opportunistic infection, bacterial pneumonia on top of that and also possibility of extension of lymphoma. 2. Bronchial asthma. 3. Small pleural effusion. PLAN: I discussed with the patient. I also discussed with Dr. Dwyer. The patient has been seen by thoracic surgery. Options were offered to the patient. He agrees to go for a bronchoscopy. I explained to him the procedure and the complications including complication of anesthesia, pneumothorax requiring chest tube, bleeding complication, injury to blood vessel, lungs, nerves, arrhythmia, hypoxia and possibility of nondiagnostic biopsy. He understands and wants want to proceed. The patient is scheduled for bronchoscopy tomorrow. Further treatment will depend on the course in the hospital. Thank you, Dr. Leigh, for this consultation. MD MAMIE Chavira/ , 07:34 PM , 07:57 PM
[2017-09-10 21:30] LABS: AUTOMATED NEUTROPHIL # 8.1 TH/MM3 (1.8-7.7); BASOPHIL % 0.2 % (0.0-2.0); HEMATOCRIT 33.7 % (39.0-51.0); LYMPH % 1.5 % (9.0-44.0); LYMPHOCYTE # 0.1 TH/MM3 (1.0-4.8); MEAN CELL VOLUME 86.7 FL (80.0-100.0); MEAN CORPUSCULAR HEMOGLOBIN 28.4 PG (27.0-34.0); MEAN CORPUSCULAR HGB CONC 32.8 % (32.0-36.0); MEAN PLATELET VOLUME 7.7 FL (7.0-11.0); MONO % 3.9 % (0.0-8.0); MONOCYTE # 0.3 TH/MM3 (0-0.9); NEUT % 94.4 % (16.0-70.0); PLATELET COUNT 182 TH/MM3 (150-450); RED BLOOD COUNT 3.88 MIL/MM3 (4.50-5.90); RED CELL DISTRIBUTION WIDTH 18.8 % (11.6-17.2); WHITE BLOOD COUNT 8.6 TH/MM3 (4.0-11.0)
[2017-09-10 21:47] LABS: PROTHROMBIN TIME - PATIENT 9.9 SEC (9.8-11.6)
[2017-09-11] VITALS (8 sets, daily range): BP systolic 123–142; BP diastolic 72–86; PULSE 62–117; RESP 17–22; TEMP 97.7–98.6; O2SAT 91–99
[2017-09-11] MEDS: ACETAMINOPHEN 325 MG TAB PO SCH ×6 (00:37→20:50)
[2017-09-11] MEDS: MORPHINE SULFATE 8 MG/ML INJ IV PUSH PRN ×5 (00:39→20:50)
[2017-09-11] MEDS: PIPERACIL-TAZO 4.5 GM PREMIX 100 ML IV SCH ×5 (00:41→23:34)
[2017-09-11] MEDS: VANCOMYCIN INJ 2,000 MG in SODIUM CHLORID 0.9% 500 ML INJ 500 ML IV SCH ×3 (02:08→19:09)
[2017-09-11] MEDS: RESP: ALBUTEROL 2.5 MG/3 ML NEB (SCH) NEB ×5 (03:26→23:07)
[2017-09-11] MEDS: SODIUM CHLOR 0.9% 1000 ML INJ 1,000 ML IV SCH ×2 (03:56→21:27)
[2017-09-11] MEDS: VORICONAZOLE 200 MG TAB PO SCH ×2 (05:48→18:32)
[2017-09-11 06:52] LABS: AUTOMATED NEUTROPHIL # 8.6 TH/MM3 (1.8-7.7); BASOPHIL % 0.1 % (0.0-2.0); HEMATOCRIT 34.1 % (39.0-51.0); HEMOGLOBIN 11.1 GM/DL (13.0-17.0); LYMPH % 1.3 % (9.0-44.0); LYMPHOCYTE # 0.1 TH/MM3 (1.0-4.8); MEAN CELL VOLUME 87.7 FL (80.0-100.0); MEAN CORPUSCULAR HEMOGLOBIN 28.6 PG (27.0-34.0); MEAN CORPUSCULAR HGB CONC 32.7 % (32.0-36.0); MEAN PLATELET VOLUME 7.5 FL (7.0-11.0); MONO % 4.3 % (0.0-8.0); MONOCYTE # 0.4 TH/MM3 (0-0.9); NEUT % 94.3 % (16.0-70.0); PLATELET COUNT 171 TH/MM3 (150-450); RED BLOOD COUNT 3.89 MIL/MM3 (4.50-5.90); RED CELL DISTRIBUTION WIDTH 18.8 % (11.6-17.2); WHITE BLOOD COUNT 9.1 TH/MM3 (4.0-11.0)
[2017-09-11 07:15] LABS: ALKALINE PHOSPHATASE 62 U/L (45-117); TOTAL BILIRUBIN ADULT 0.2 MG/DL (0.2-1.0); TOTAL PROTEIN 6.5 GM/DL (6.4-8.2)
[2017-09-11 07:19] LABS: ALBUMIN 2.6 GM/DL (3.4-5.0); ALT (GPT) 102 U/L (12-78); AST (GOT) 35 U/L (15-37); BICARBONATE 27.6 MEQ/L (21.0-32.0); BLOOD UREA NITROGEN 13 MG/DL (7-18); CALCIUM 8.9 MG/DL (8.5-10.1); CHLORIDE 104 MEQ/L (98-107); CREATININE 0.72 MG/DL (0.60-1.30); GLOMERULAR FILTRATION RATE 120 ML/MIN (>89); GLUCOSE,RANDOM 154 MG/DL (74-106); SODIUM (NA) 139 MEQ/L (136-145)
[2017-09-11] MEDS: methylPREDNISolone SOD SUCC 40 MG/1 ML VIAL IV PUSH SCH ×2 (09:00→20:48)
[2017-09-11] MEDS: DOCUSATE SODIUM 50 MG/SENNA 8.6 MG TAB PO SCH ×2 (09:00→20:49)
--- NOTE | 2017-09-11 11:42 | HHI.FPPN ---
Subjective Remarks Patient seen and examined at bedside this morning. No acute events overnight. Patient stated his shortness of breath is much improved. Denies any chest pain , nausea vomiting or abdominal pain. Patient stated he had a hard time sleeping last night due to noisy pipe room. He has been n.p.o. since exam for preparation of bronchoscopy procedure to by . Patient stated he refused to breathing treatments overnight because he felt okay and wanted to try and sleep, however he will resume patient treatments today. (J Luis Parker MD, R1) Objective Vitals Vital Signs Date Time Temp Pulse Resp B/P (MAP) Pulse Ox O2 Delivery O2 Flow Rate FiO2 09/11/17 09:50 97 Nasal Cannula 2.00 09/11/17 08:00 Nasal Cannula 2.00 09/11/17 07:35 97.7 98 18 131/83 (99) 99 09/11/17 00:00 97.9 107 17 125/77 (93) 93 09/10/17 20:00 98.9 107 18 136/92 (107) 93 09/10/17 20:00 Nasal Cannula 2.00 09/10/17 18:09 Nasal Cannula 4.00 09/10/17 16:01 97.4 113 16 138/81 (100) 95 09/10/17 15:27 94 Nasal Cannula 2.00 09/10/17 12:01 98.0 107 16 139/90 (106) 92 09/10/17 11:45 Nasal Cannula 4.00 I/O 09/10/17 09/10/17 09/10/17 09/11/17 09/11/17 09/11/17 07:00 15:00 23:00 07:00 15:00 23:00 Intake Total 460 ml 420 ml 240 ml Balance 460 ml 420 ml 240 ml Intake Oral 460 ml 420 ml 240 ml # Voids 3 6 4 # Bowel Movements 0 1 1 (J Luis Parker MD, R1) Result Diagram: 09/11/17 0615 09/11/17 0615 Objective Remarks Physical Exam GENERAL: This is a well-nourished, well-developed patient, siting in bed in no apparent distress. SKIN: No rashes, ecchymoses or lesions. Cool and dry. HEAD: Atraumatic. Normocephalic. EYES: Pupils equal round and reactive. Extraocular motions intact. No scleral icterus. No injection or drainage. ENT: Nose without bleeding, purulent drainage or septal hematoma. Airway patent. NECK: Trachea midline. No JVD or lymphadenopathy. Supple, nontender, no meningeal signs. CARDIOVASCULAR: Regular rate and rhythm without murmurs, gallops, or rubs. RESPIRATORY: diminished lung sound on Right lung base, mild rales and crackles noted on Right lower lung base, improved from yesterday. GASTROINTESTINAL: Abdomen slightly distended, soft, non-tender. No hepato- splenomegaly, or palpable masses. No guarding. MUSCULOSKELETAL: Extremities without clubbing, cyanosis, or edema. Mild joint tenderness of knee joint BL, minimal effusion noted around Left knee- improved, knee joint not erythematous or warm to touch. No calf tenderness. +2 DP pulses BL NEUROLOGICAL: Awake and alert. Motor and sensory grossly within normal limits. Normal speech. (J Luis Parker MD, R1) A/P Assessment and Plan Patient is a 42-year-old male with past medical history of T-cell lymphoma presented with: (J Luis Parker MD, R1) Attending Attestation Patient seen and examined. Case reviewed and discussed Agree with plan of care as discussed with me and documented in the resident note. (Azra Santos MD) Problem List: (1) Pneumonia ICD Codes: J18.9 - Pneumonia, unspecified organism Status: Acute Plan: Patient with recent hospitalization for pneumonia thought to be due to fungal etiology. Patient was discharged on voriconazole and switched to fluconazole by medical oncologist due to side effect of severe bone pain and medical oncology plan plan to extend treatment with fluconazole until patient received bone marrow transplant. On admission patient found to be septic with tachycardia (HR 118), tachypnea ( RR 26), leukocytosis (WBC 13) with infection source being the lungs. Chest x-ray: Increasing infiltrate and density in the right lung with apparent volume loss Fungal workup from prior hospitalization was negative. CT chest with contrast showed worsening right lung infiltrate characteristic of pneumonia. UA negative Legionella and pneumococcal urine antigen negative Blood cultures: No growth 2 days CMV DNA pcr negative Shortness of breath Shortness of breath has improved Patient O2 saturation of 97% on 2 L nasal cannula Albuterol inhaler at bedside Incentive spirometry Albuterol nebulizer every 4 hours for shortness of breath IV methylprednisolone 40 mg every 12hr Tylenol scheduled every 4 for pain IV morphine Q3h PRN for breakthrough pain Antibiotic history: Vancomycin 09/09-- present Azithromycin 09/09-- present Zosyn 09/09-- present Voriconazole po 200 mg 09/09-- present Pharmacy consulted for titration of vancomycin dosage ID consulted, appreciate recommendations [facility] [employer] Director and cardiothoracic surgery consulted by Dr. Leigh, appreciate recommendations Patient right lung infiltration appears to be of infectious etiology. Plan to continue antibiotic and antifungal treatment and bronchoscopy procedure to be done by Dr. Aleman to identify inflammation and determine if open lung biopsy is necessary for micro and pathology evaluation. Plan for bronchoscopy today. Medical plan discussed with patient and and they agreed and showed understanding Follow-up: Sputum culture (2) T-cell lymphoma ICD Codes: C85.90 - Non-Hodgkin lymphoma, unspecified, unspecified site Status: Chronic Plan: Diagnosed w/T cell lymphoma in April per biopsy results. follows with Dr. Leigh. Oncology consulted, appreciate recommendations s/p CHOP chemotherapy Right lung infiltrate infection vs recurrence of T cell lymphoma see plan above (3) Knee pain ICD Codes: M25.569 - Pain in unspecified knee Plan: Patient with complaint of bilateral knee pain, pain on right knee is worse. Knee pain minimal, stable and well controlled on pain medications. No issues with mobility. continue to monitor consider imaging of right knee (4) Nutrition, metabolism, and development symptoms ICD Codes: R63.8 - Other symptoms and signs concerning food and fluid intake Plan: Fluids: IVF at 140mls/hr, patient tolerating p.o. Electrolytes: Replete as needed Nutrition: Regular diet DVT prophylaxis: Lovenox 40 every 24h (J Luis Pakrer MD, R1) Problem Qualifiers (1) Pneumonia: Qualified Codes: J18.9 - Pneumonia, unspecified organism (2) Knee pain: J Luis Parker MD, R1 Sep 11, 2017 11:42 Azra Santos MD Sep 13, 2017 13:10
[2017-09-11] MEDS: AZITHROMYCIN INJ 500 MG in SODIUM CHLOR 0.9% 250 ML INJ 250 ML IV SCH (12:43)
[2017-09-11] MEDS ORDERED: SUGAMMADEX SODIUM 200 MG/2 ML VIAL IV PUSH ONE (15:24)
[2017-09-11] MEDS ORDERED: DO NOT ADM ANY ANTICOAGULANT DRUGS PRN (15:44)
--- NOTE | 2017-09-11 15:47 | MR ---
cc: Francis Aleman MD DATE: 09/11/2017 PROCEDURE PERFORMED: Bronchoscopy. PREOPERATIVE DIAGNOSIS: Lung infiltrate and lymphoma. POSTOPERATIVE DIAGNOSIS: No endobronchial lesion seen. DESCRIPTION OF PROCEDURE: Informed consent was obtained from the patient. The procedure and the complications, including complication of anesthesia, pneumothorax requiring chest tube, bleeding complication, injury to the blood vessel, lungs, nerves, arrhythmia, hypoxia were explained. He consented for the procedure. The patient was brought to the endoscopy suite and under general anesthesia endotracheal tube was placed by anesthesiologist. Bronchoscopy was done through endotracheal tube. Main juan is sharp. Bronchoscope was advanced to the left lung, left upper lingula, lower lobe visualized. No endobronchial mucosal lesion was seen. Then, bronchoscope advanced to the right lung, right upper middle, and lower lobe were visualized. Small amount of mucus was suctioned. No endobronchial lesion seen. Bronchial brushing, washing and biopsy was done at right lower lobe and also biopsy done at the right upper lobe. Biopsy sent for pathology. Brushing sent for cytology. Washing is sent for cytology, routine culture, AFB, fungal culture. He tolerated the procedure well with a small amount of bleeding, which was controlled with saline and epinephrine wash. Postprocedure chest x-ray ordered to rule out pneumothorax. Francis Aleman MD ADA/TL , 03:17 PM , 03:47 PM
[2017-09-11] MEDS ORDERED: *RESP: ALBUTEROL 2.5 MG/3 ML NEB (PRN) PERIprocedural Use ONLY NEB ONE (15:57)
[2017-09-11] MEDS ORDERED: MIDAZOLAM HCL 2 MG/2 ML VIAL ONE (16:02)
--- NOTE | 2017-09-11 16:04 | HHI.PR ---
Subjective Remarks 42 YOWM with T-cell lymphoma, S/P CHOP therapy has Bilat infilt had bronch, BAL brushing and bx done No fever or chills Objective Vital Signs Vital Signs Date Time Temp Pulse Resp B/P (MAP) Pulse Ox O2 Delivery O2 Flow Rate FiO2 09/11/17 11:20 98.2 78 18 128/72 (90) 96 09/11/17 09:50 97 Nasal Cannula 2.00 09/11/17 08:00 Nasal Cannula 2.00 09/11/17 07:35 97.7 98 18 131/83 (99) 99 09/11/17 00:00 97.9 107 17 125/77 (93) 93 09/10/17 20:00 98.9 107 18 136/92 (107) 93 09/10/17 20:00 Nasal Cannula 2.00 09/10/17 18:09 Nasal Cannula 4.00 I/O 09/10/17 09/10/17 09/10/17 09/11/17 09/11/17 09/11/17 07:00 15:00 23:00 07:00 15:00 23:00 Intake Total 460 ml 420 ml 240 ml Balance 460 ml 420 ml 240 ml Intake Oral 460 ml 420 ml 240 ml # Voids 3 6 4 # Bowel Movements 0 1 1 Result Diagram: 09/11/1715 09/11/17 0615 Objective Remarks GENERAL: WBWN WM,NAD SKIN: Warm and dry. HEAD: Normocephalic. EYES: No scleral icterus. No injection or drainage. NECK: Supple, trachea midline. No JVD or lymphadenopathy. CARDIOVASCULAR: Regular rate and rhythm without murmurs, gallops, or rubs. RESPIRATORY: Breath sounds equal bilaterally. No accessory muscle use. GASTROINTESTINAL: Abdomen soft, non-tender, nondistended. MUSCULOSKELETAL: No cyanosis, or edema. BACK: Nontender without obvious deformity. No CVA tenderness. A/P Assessment and Plan IMPRESSION: 1. Extensive right lung infiltrate and infiltrate in the lingula. Differential diagnosis includes fungal infection, opportunistic infection, bacterial pneumonia on top of that and also possibility of extension of lymphoma. 2. Bronchial asthma. 3. Small pleural effusion. PLAN: Check post bronch cxr Check bronch results cont Abx per ID IV Solumedrol. Francis Aleman MD Sep 11, 2017 16:04
--- NOTE | 2017-09-11 16:10 | RADRPT ---
EXAM DATE/TIME: 09/11/2017 16:50 [facility] COMPARISON: CHEST SINGLE AP, September 09, 2017, 10:25. INDICATIONS : Post op bronchoscopy MEDICAL HISTORY : Hypertension. Herniated discs, T Cell Lymphoma SURGICAL HISTORY : Right shoulder, infusaport, Bone marrow biopsy ENCOUNTER: Initial ACUITY: 1 day PAIN SCORE: 0/10 LOCATION: Bilateral chest FINDINGS: Diffuse infiltrate of the right lung is noted and is slightly worse from the previous examination con sistent with possible worsening pneumonia. Clinical correlation is recommended. Left subclavian Infus e-a-Port has its tip in the superior vena cava. The heart is stable. No pneumothorax is noted. CONCLUSION: 1. Interval worsening diffuse infiltrate in the right lung consistent with possible worsening pneumon ia. Clinical correlation is recommended. 2. No pneumothorax. Anthony Brewer MD on September 11, 2017 at 16:05 Board Certified Radiologist. This report was verified electronically.
[2017-09-11] MEDS ORDERED: PHARMACY ORDERED LAB-VANCO TROUGH ONE (16:45)
--- NOTE | 2017-09-11 19:02 | PD.ONC.PN ---
Subjective Subjective Remarks Ravenously hungry. "I feel like a bloated Twinky" referring to round facies. s/p bronchoscopy Good spirits with his family at bedside. Watching Pamella with daughter. Objective Data Date Time Temp Pulse Resp B/P (MAP) Pulse Ox O2 Delivery O2 Flow Rate FiO2 09/11/17 18:33 18 09/11/17 18:33 18 09/11/17 17:32 97.8 85 20 133/84 (100) 92 09/11/17 17:04 98.6 62 18 142/86 (104) 91 09/11/17 16:30 97.6 88 22 120/74 (89) 91 Nasal Cannula 3 09/11/17 16:15 100 22 124/76 (92) 91 Nasal Cannula 3 09/11/17 16:00 88 22 118/75 (89) 91 Nasal Cannula 3 09/11/17 15:44 97.6 81 22 134/84 (101) 95 Nasal Cannula 3 09/11/17 11:20 98.2 78 18 128/72 (90) 96 09/11/17 09:50 97 Nasal Cannula 2.00 09/11/17 08:00 Nasal Cannula 2.00 09/11/17 07:35 97.7 98 18 131/83 (99) 99 09/11/17 00:00 97.9 107 17 125/77 (93) 93 09/10/17 20:00 98.9 107 18 136/92 (107) 93 09/10/17 20:00 Nasal Cannula 2.00 09/11/17 09/11/17 09/11/17 06:59 14:59 22:59 Intake Total 240 ml 240 ml Balance 240 ml 240 ml Result Diagram: 09/11/1715 09/11/17614 Laboratory Results Laboratory Tests Test 09/10/17 20:25 09/11/17 06:15 09/11/17 17:15 White Blood Count 8.6 TH/MM3 9.1 TH/MM3 Red Blood Count 3.88 MIL/MM3 3.89 MIL/MM3 Hemoglobin 11.0 GM/DL 11.1 GM/DL Hematocrit 33.7 % 34.1 % Mean Corpuscular Volume 86.7 FL 87.7 FL Mean Corpuscular Hemoglobin 28.4 PG 28.6 PG Mean Corpuscular Hemoglobin Concent 32.8 % 32.7 % Red Cell Distribution Width 18.8 % 18.8 % Platelet Count 182 TH/MM3 171 TH/MM3 Mean Platelet Volume 7.7 FL 7.5 FL Neutrophils (%) (Auto) 94.4 % 94.3 % Lymphocytes (%) (Auto) 1.5 % 1.3 % Monocytes (%) (Auto) 3.9 % 4.3 % Eosinophils (%) (Auto) 0.0 % 0.0 % Basophils (%) (Auto) 0.2 % 0.1 % Neutrophils # (Auto) 8.1 TH/MM3 8.6 TH/MM3 Lymphocytes # (Auto) 0.1 TH/MM3 0.1 TH/MM3 Monocytes # (Auto) 0.3 TH/MM3 0.4 TH/MM3 Eosinophils # (Auto) 0.0 TH/MM3 0.0 TH/MM3 Basophils # (Auto) 0.0 TH/MM3 0.0 TH/MM3 CBC Comment DIFF FINAL DIFF FINAL Differential Comment Prothrombin Time 9.9 SEC Prothromb Time International Ratio 1.0 RATIO Activated Partial Thromboplast Time 25.0 SEC Blood Urea Nitrogen 13 MG/DL Creatinine 0.72 MG/DL Random Glucose 154 MG/DL Total Protein 6.5 GM/DL Albumin 2.6 GM/DL Calcium Level 8.9 MG/DL Alkaline Phosphatase 62 U/L Aspartate Amino Transf (AST/SGOT) 35 U/L Alanine Aminotransferase (ALT/SGPT) 102 U/L Total Bilirubin 0.2 MG/DL Sodium Level 139 MEQ/L Potassium Level 4.3 MEQ/L Chloride Level 104 MEQ/L Carbon Dioxide Level 27.6 MEQ/L Anion Gap 7 MEQ/L Estimat Glomerular Filtration Rate 120 ML/MIN Vancomycin Level Trough 18.8 MCG/ML Culture Results Microbiology Date/Time Source Procedure Growth Status 09/09/17 16:35 Blood Peripheral Aerobic Blood Culture - Preliminary NO GROWTH IN 2 DAYS Resulted 09/09/17 16:35 Blood Peripheral Anaerobic Blood Culture - Preliminary NO GROWTH IN 2 DAYS Resulted 09/09/17 16:30 Blood Peripheral Aerobic Blood Culture - Preliminary NO GROWTH IN 2 DAYS Resulted 09/09/17 16:30 Blood Peripheral Anaerobic Blood Culture - Preliminary NO GROWTH IN 2 DAYS Resulted 09/11/17 15:08 Bronchial Washings Bronchial Fungal Smear Pending Received 09/11/17 15:08 Bronchial Washings Bronchial Fungal Culture Pending Received 09/11/17 15:08 Bronchial Washings Bronchial Acid Fast Stain Pending Received 09/11/17 15:08 Bronchial Washings Bronchial Mycobacterial Culture Pending Received 09/11/17 15:08 Bronchial Washings Bronchial Gram Stain Pending Received 09/11/17 15:08 Bronchial Washings Bronchial Bronchial Culture Pending Received 09/11/17 14:57 Bronchial Brushings Right Lower Lobe Fungal Smear Pending Received 09/11/17 14:57 Bronchial Brushings Right Lower Lobe Fungal Culture Pending Received 09/11/17 14:57 Bronchial Brushings Right Lower Lobe Acid Fast Stain Pending Received 09/11/17 14:57 Bronchial Brushings Right Lower Lobe Mycobacterial Culture Pending Received 09/11/17 14:57 Bronchial Brushings Right Lower Lobe Bronchial Aspirate Culture Pending Received 09/09/17 16:00 Urine Clean Catch Legionella Antigen - Final PRESUMPTIVE NEGATIVE FOR LEGIONELLA P... Complete 09/09/17 16:00 Urine Clean Catch Streptococcus pneumoniae Antigen (M - Final PRESUMPTIVE NEGATIVE FOR STREPTOCOCCU... Complete Imaging Studies Last 24 hours Impressions Chest X-Ray 09/11/17 0000 Signed Impressions: Service Date/Time: Saturday, September 11, 2017 16:50 - CONCLUSION: 1. Interval worsening diffuse infiltrate in the right lung consistent with possible worsening pneumonia. Clinical correlation is recommended. 2. No pneumothorax. Anthony Brewer MD Administered Medications Medications (Trade) Dose Ordered Sig/Suzan Route PRN Reason Start Time Stop Time Status Last Admin Dose Admin Enoxaparin Sodium (Lovenox Inj) 40 mg Q24H SQ 09/09/17 16:00 Future Hold 09/09/17 16:34 Senna/Docusate Sodium (Naa-Colace) 1 tab BID PO 09/09/17 21:00 09/11/17 09:00 Azithromycin 500 mg/Sodium Chloride 250 ml @ 250 mls/hr Q24H IV 09/10/17 11:00 09/11/17 12:43 Piperacillin Sod/ Tazobactam Sod 100 ml @ 200 mls/hr Q6H IV 09/09/17 18:00 09/11/17 18:32 Acetaminophen (Tylenol) 650 mg Q4H PO 09/09/17 17:00 09/13/17 16:59 09/11/17 17:30 Methylprednisolone Sodium Succinate (SoluMEDROL INJ) 40 mg Q12HR IV PUSH 09/09/17 18:00 09/11/17 09:00 Albuterol Sulfate (Albuterol Neb) 2.5 mg Q4HR NEB NEB 09/09/17 20:00 09/11/17 15:40 Voriconazole (Vfend) 200 mg Q12H PO 09/10/17 06:00 09/11/17 18:32 Morphine Sulfate (Morphine Inj) 5 mg Q3HR PRN IV PUSH PAIN SCALE 6 TO 10 09/09/17 21:45 09/11/17 17:40 Sodium Chloride 1,000 ml @ 140 mls/hr Q7H9M IV 09/09/17 22:45 09/11/17 03:56 Vancomycin HCl 2000 mg/Sodium Chloride 520 ml @ 260 mls/hr Q8H IV 09/11/17 01:00 09/11/17 09:00 Objective Remarks GENERAL: Well-nourished, well-developed patient. Round facies. SKIN: Warm and dry. Mild hyperremia. HEAD: Normocephalic. EYES: No scleral icterus. No injection or drainage. NECK: Supple, trachea midline. No JVD or lymphadenopathy. LYMPHATIC: No adenopathy. CARDIOVASCULAR: Regular rate and rhythm without murmurs. RESPIRATORY: Breath sounds equal bilaterally. No accessory muscle use. GASTROINTESTINAL: Abdomen soft, non-tender, nondistended. EXTREMITIES: No cyanosis, or edema. MUSCULOSKELETAL: Adequate muscle tone. Assessment/Plan Problem List: (1) Pneumonia ICD Codes: J18.9 - Pneumonia, unspecified organism Status: Acute Plan: 09/11/17. s/p bronchoscopy cultures pending. effort to avoid open lung biopsy. --unclear etiology --on VFEND --ID following. --needs lung biopsy, CTS consulted. (2) T-cell lymphoma ICD Codes: C85.90 - Non-Hodgkin lymphoma, unspecified, unspecified site Status: Chronic Plan: 09/11/17. Concern about recurrence, however, pt improving with Vfend and abx. Suspect more infectious etiology. Continue current course. --in remission --received CHOP chemotherapy in clinic. Assessment 42y/o male with T-cell lymphoma admitted with worsening right lung infiltrate. Plan 1. Follow culture results 2. Monitor response 3. continue antibiotics/antifungals per ID Problem Qualifiers (1) Pneumonia: Qualified Codes: J18.9 - Pneumonia, unspecified organism Aysha Leigh MD Sep 11, 2017 19:02
[2017-09-12] VITALS (11 sets, daily range): BP systolic 125–152; BP diastolic 74–88; PULSE 72–111; RESP 18–22; TEMP 97.1–98.3; O2SAT 91–97
[2017-09-12] MEDS: VANCOMYCIN INJ 2,000 MG in SODIUM CHLORID 0.9% 500 ML INJ 500 ML IV SCH ×2 (00:13→08:32)
[2017-09-12] MEDS: MORPHINE SULFATE 8 MG/ML INJ IV PUSH PRN ×6 (00:13→22:30)
[2017-09-12] MEDS: ACETAMINOPHEN 325 MG TAB PO SCH ×6 (01:04→20:30)
[2017-09-12] MEDS: RESP: ALBUTEROL 2.5 MG/3 ML NEB (SCH) NEB ×6 (03:03→23:34)
[2017-09-12] MEDS: PIPERACIL-TAZO 4.5 GM PREMIX 100 ML IV SCH ×3 (04:59→18:21)
[2017-09-12 05:34] LABS: AUTOMATED NEUTROPHIL # 7.3 TH/MM3 (1.8-7.7); BASOPHIL % 0.1 % (0.0-2.0); HEMATOCRIT 31.9 % (39.0-51.0); HEMOGLOBIN 10.5 GM/DL (13.0-17.0); LYMPH % 1.2 % (9.0-44.0); LYMPHOCYTE # 0.1 TH/MM3 (1.0-4.8); MEAN CELL VOLUME 87.8 FL (80.0-100.0); MEAN CORPUSCULAR HEMOGLOBIN 28.8 PG (27.0-34.0); MEAN CORPUSCULAR HGB CONC 32.9 % (32.0-36.0); MEAN PLATELET VOLUME 7.3 FL (7.0-11.0); MONO % 3.6 % (0.0-8.0); MONOCYTE # 0.3 TH/MM3 (0-0.9); NEUT % 95.1 % (16.0-70.0); PLATELET COUNT 183 TH/MM3 (150-450); RED BLOOD COUNT 3.63 MIL/MM3 (4.50-5.90); RED CELL DISTRIBUTION WIDTH 18.9 % (11.6-17.2); WHITE BLOOD COUNT 7.7 TH/MM3 (4.0-11.0)
[2017-09-12 05:50] LABS: ALBUMIN 2.6 GM/DL (3.4-5.0); ALT (GPT) 84 U/L (12-78); AST (GOT) 17 U/L (15-37); BICARBONATE 25.6 MEQ/L (21.0-32.0); BLOOD UREA NITROGEN 15 MG/DL (7-18); CALCIUM 8.6 MG/DL (8.5-10.1); CHLORIDE 104 MEQ/L (98-107); CREATININE 0.94 MG/DL (0.60-1.30); GLOMERULAR FILTRATION RATE 88 ML/MIN (>89); GLUCOSE,RANDOM 237 MG/DL (74-106); SODIUM (NA) 139 MEQ/L (136-145)
[2017-09-12 05:53] LABS: ALKALINE PHOSPHATASE 58 U/L (45-117); TOTAL BILIRUBIN ADULT 0.2 MG/DL (0.2-1.0)
[2017-09-12] MEDS ORDERED: VORICONAZOLE 50 MG TAB PO SCH (06:00)
[2017-09-12] MEDS: SODIUM CHLOR 0.9% 1000 ML INJ 1,000 ML IV SCH ×4 (07:57→20:31)
[2017-09-12] MEDS: DOCUSATE SODIUM 50 MG/SENNA 8.6 MG TAB PO SCH ×2 (08:01→20:31)
[2017-09-12] MEDS ORDERED: ALUMINUM/MAGNESIUM/SIMETH 30 ML CUP PO PRN (08:30)
[2017-09-12] MEDS ORDERED: CALCIUM CARBONATE 500 MG CHEWABLE TAB CHEW PRN (08:30)
[2017-09-12] MEDS: PANTOPRAZOLE SODIUM 40 MG VIAL IV PUSH SCH (08:30)
[2017-09-12] MEDS: methylPREDNISolone SOD SUCC 40 MG/1 ML VIAL IV PUSH SCH ×2 (08:44→20:30)
[2017-09-12] MEDS ORDERED: PHARMACY ORDERED LAB ONE (08:45)
--- NOTE | 2017-09-12 10:39 | PD.ONC.PN ---
Subjective Subjective Remarks Afebrile overnight. Patient eager to know when he can go home. Waiting on culture results to return. Noticed some acid reflux this morning. Objective Data Date Time Temp Pulse Resp B/P (MAP) Pulse Ox O2 Delivery O2 Flow Rate FiO2 09/12/17 08:47 95 Nasal Cannula 3.00 09/12/17 08:12 98.2 98 18 137/88 (104) 97 09/12/17 04:00 96 09/12/17 04:00 97.8 99 20 139/84 (102) 09/12/17 00:00 103 09/12/17 00:00 98.3 109 22 125/74 (91) 91 09/11/17 20:00 Nasal Cannula 2.00 09/11/17 20:00 97.9 117 22 123/74 (90) 94 09/11/17 19:18 96 Nasal Cannula 2.00 09/11/17 18:33 18 09/11/17 18:33 18 09/11/17 17:32 97.8 85 20 133/84 (100) 92 09/11/17 17:04 98.6 62 18 142/86 (104) 91 09/11/17 17:00 Nasal Cannula 2.00 09/11/17 16:30 97.6 88 22 120/74 (89) 91 Nasal Cannula 3 09/11/17 16:15 100 22 124/76 (92) 91 Nasal Cannula 3 09/11/17 16:00 88 22 118/75 (89) 91 Nasal Cannula 3 09/11/17 15:44 97.6 81 22 134/84 (101) 95 Nasal Cannula 3 09/11/17 11:20 98.2 78 18 128/72 (90) 96 09/12/17 09/12/17 09/12/17 07:00 15:00 23:00 Intake Total 1180 ml Balance 1180 ml Result Diagram: 09/12/17 0505 09/12/17 0505 Laboratory Results Laboratory Tests Test 09/11/17 17:15 09/12/17 05:05 09/12/17 08:30 Vancomycin Level Trough 18.8 MCG/ML 20.8 MCG/ML White Blood Count 7.7 TH/MM3 Red Blood Count 3.63 MIL/MM3 Hemoglobin 10.5 GM/DL Hematocrit 31.9 % Mean Corpuscular Volume 87.8 FL Mean Corpuscular Hemoglobin 28.8 PG Mean Corpuscular Hemoglobin Concent 32.9 % Red Cell Distribution Width 18.9 % Platelet Count 183 TH/MM3 Mean Platelet Volume 7.3 FL Neutrophils (%) (Auto) 95.1 % Lymphocytes (%) (Auto) 1.2 % Monocytes (%) (Auto) 3.6 % Eosinophils (%) (Auto) 0.0 % Basophils (%) (Auto) 0.1 % Neutrophils # (Auto) 7.3 TH/MM3 Lymphocytes # (Auto) 0.1 TH/MM3 Monocytes # (Auto) 0.3 TH/MM3 Eosinophils # (Auto) 0.0 TH/MM3 Basophils # (Auto) 0.0 TH/MM3 CBC Comment DIFF FINAL Differential Comment Blood Urea Nitrogen 15 MG/DL Creatinine 0.94 MG/DL Random Glucose 237 MG/DL Total Protein 6.0 GM/DL Albumin 2.6 GM/DL Calcium Level 8.6 MG/DL Alkaline Phosphatase 58 U/L Aspartate Amino Transf (AST/SGOT) 17 U/L Alanine Aminotransferase (ALT/SGPT) 84 U/L Total Bilirubin 0.2 MG/DL Sodium Level 139 MEQ/L Potassium Level 4.3 MEQ/L Chloride Level 104 MEQ/L Carbon Dioxide Level 25.6 MEQ/L Anion Gap 9 MEQ/L Estimat Glomerular Filtration Rate 88 ML/MIN Culture Results Microbiology Date/Time Source Procedure Growth Status 09/09/17 16:35 Blood Peripheral Aerobic Blood Culture - Preliminary NO GROWTH IN 2 DAYS Resulted 09/09/17 16:35 Blood Peripheral Anaerobic Blood Culture - Preliminary NO GROWTH IN 2 DAYS Resulted 09/09/17 16:30 Blood Peripheral Aerobic Blood Culture - Preliminary NO GROWTH IN 2 DAYS Resulted 09/09/17 16:30 Blood Peripheral Anaerobic Blood Culture - Preliminary NO GROWTH IN 2 DAYS Resulted 09/11/17 15:08 Bronchial Washings Bronchial Fungal Smear Pending Received 09/11/17 15:08 Bronchial Washings Bronchial Fungal Culture Pending Received 09/11/17 15:08 Bronchial Washings Bronchial Acid Fast Stain Pending Received 09/11/17 15:08 Bronchial Washings Bronchial Mycobacterial Culture Pending Received 09/11/17 15:08 Bronchial Washings Bronchial Gram Stain - Final Resulted 09/11/17 15:08 Bronchial Washings Bronchial Bronchial Culture Pending Resulted 09/11/17 14:57 Bronchial Brushings Right Lower Lobe Fungal Smear Pending Received 09/11/17 14:57 Bronchial Brushings Right Lower Lobe Fungal Culture Pending Received 09/11/17 14:57 Bronchial Brushings Right Lower Lobe Acid Fast Stain Pending Received 09/11/17 14:57 Bronchial Brushings Right Lower Lobe Mycobacterial Culture Pending Received 09/11/17 14:57 Bronchial Brushings Right Lower Lobe Bronchial Aspirate Culture Pending Received 09/09/17 16:00 Urine Clean Catch Legionella Antigen - Final PRESUMPTIVE NEGATIVE FOR LEGIONELLA P... Complete 09/09/17 16:00 Urine Clean Catch Streptococcus pneumoniae Antigen (M - Final PRESUMPTIVE NEGATIVE FOR STREPTOCOCCU... Complete Administered Medications Medications (Trade) Dose Ordered Sig/Suzan Route PRN Reason Start Time Stop Time Status Last Admin Dose Admin Enoxaparin Sodium (Lovenox Inj) 40 mg Q24H SQ 09/09/17 16:00 Future Hold 09/09/17 16:34 Senna/Docusate Sodium (Naa-Colace) 1 tab BID PO 09/09/17 21:00 09/12/17 08:01 Magnesium Hydroxide (Milk Of Alberto Montez) 30 ml Q12H PRN PO Mild constipation 09/09/17 15:15 09/12/17 09:52 Azithromycin 500 mg/Sodium Chloride 250 ml @ 250 mls/hr Q24H IV 09/10/17 11:00 09/11/17 12:43 Piperacillin Sod/ Tazobactam Sod 100 ml @ 200 mls/hr Q6H IV 09/09/17 18:00 09/12/17 04:59 Acetaminophen (Tylenol) 650 mg Q4H PO 09/09/17 17:00 09/13/17 16:59 09/12/17 08:01 Methylprednisolone Sodium Succinate (SoluMEDROL INJ) 40 mg Q12HR IV PUSH 09/09/17 18:00 09/12/17 08:44 Albuterol Sulfate (Albuterol Neb) 2.5 mg Q4HR NEB NEB 09/09/17 20:00 09/12/17 08:45 Morphine Sulfate (Morphine Inj) 5 mg Q3HR PRN IV PUSH PAIN SCALE 6 TO 10 09/09/17 21:45 09/12/17 08:01 Sodium Chloride 1,000 ml @ 140 mls/hr Q7H9M IV 09/09/17 22:45 09/12/17 07:57 Pantoprazole Sodium (Protonix Inj) 40 mg Q24H IV PUSH 09/12/17 08:30 09/12/17 08:30 Al Hydrox/Mg Hydrox/Simethicone (Mag-Al Plus Susp Liq) 30 ml Q6H PRN PO DYSPEPSIA OR HEARTBURN 09/12/17 08:30 09/12/17 09:52 Objective Remarks GENERAL: Middle aged male, sitting up in bed in nad. SKIN: Warm and dry. HEAD: Normocephalic. EYES: No injection or drainage. NECK: Supple, trachea midline. CARDIOVASCULAR: Regular rate and rhythm. RESPIRATORY: Breath sounds equal bilaterally. No accessory muscle use. GASTROINTESTINAL: Abdomen soft, non-tender, nondistended. EXTREMITIES: No cyanosis, NEUROLOGICAL: awake and alert. normal speech. moving all extremities. Assessment/Plan Problem List: (1) Pneumonia ICD Codes: J18.9 - Pneumonia, unspecified organism Status: Acute Plan: 09/12: awaiting culture results. 09/11/17. s/p bronchoscopy cultures pending. effort to avoid open lung biopsy. --unclear etiology --on VFEND --ID following. --needs lung biopsy, CTS consulted. (2) T-cell lymphoma ICD Codes: C85.90 - Non-Hodgkin lymphoma, unspecified, unspecified site Status: Chronic Plan: 09/12: awaiting culture results. 09/11/17. Concern about recurrence, however, pt improving with Vfend and abx. Suspect more infectious etiology. Continue current course. --in remission --received CHOP chemotherapy in clinic. Assessment 42y/o male with T-cell lymphoma admitted with worsening right lung infiltrate. Plan 1. continue antifungal per ID 2. continue supportive care 3. await culture results. Attending Statement The exam, history, and the medical decision-making described in the above note were completed with the assistance of the mid-level provider. I reviewed and agree with the findings presented. I attest that I had a [id number] encounter with the patient on the same day, and personally performed and documented my assessment and findings in the medical record. Clinically the same. Tachycardia at rest improve, becomes tachycardic on ambulation to BR. Cont abx, follow cultures, defer to ID abx for home. Still hoping he could go on his cruise to the [facility]. Problem Qualifiers (1) Pneumonia: Qualified Codes: J18.9 - Pneumonia, unspecified organism Doris Liu Sep 12, 2017 10:39 Aysha Leigh MD Sep 12, 2017 16:20
[2017-09-12] MEDS: AZITHROMYCIN INJ 500 MG in SODIUM CHLOR 0.9% 250 ML INJ 250 ML IV SCH (11:38)
[2017-09-12] MEDS ORDERED: LORazepam 2 MG/ML VIAL IV PUSH ONE (12:45)
[2017-09-12] MEDS ORDERED: LORazepam 0.5 MG TAB PO PRN (13:45)
--- NOTE | 2017-09-12 14:15 | HHI.FPPN ---
Subjective Remarks Patient seen and examined this morning. No acute events overnight. Patient had bronchoscopy procedure yesterday. He stated that he had trouble sleeping due to anxiety. His shortness of breath much improved from admission. Tolerating p.o. intake well. Patient also reports that pain is well controlled. He has not had a bowel movement for the past couple of days. Patient also with complaints of acid reflux which has improved since he received Protonix. (J Luis Parker MD, R1) Objective Vitals Vital Signs Date Time Temp Pulse Resp B/P (MAP) Pulse Ox O2 Delivery O2 Flow Rate FiO2 09/12/17 11:49 97.1 76 18 131/84 (100) 96 09/12/17 08:47 95 Nasal Cannula 3.00 09/12/17 08:30 96 Nasal Cannula 2.00 09/12/17 08:12 98.2 98 18 137/88 (104) 97 09/12/17 04:00 96 09/12/17 04:00 97.8 99 20 139/84 (102) 09/12/17 00:00 103 09/12/17 00:00 98.3 109 22 125/74 (91) 91 09/11/17 20:00 Nasal Cannula 2.00 09/11/17 20:00 97.9 117 22 123/74 (90) 94 09/11/17 19:18 96 Nasal Cannula 2.00 09/11/17 18:33 18 09/11/17 18:33 18 09/11/17 17:32 97.8 85 20 133/84 (100) 92 09/11/17 17:04 98.6 62 18 142/86 (104) 91 09/11/17 17:00 Nasal Cannula 2.00 09/11/17 16:30 97.6 88 22 120/74 (89) 91 Nasal Cannula 3 09/11/17 16:15 100 22 124/76 (92) 91 Nasal Cannula 3 09/11/17 16:00 88 22 118/75 (89) 91 Nasal Cannula 3 09/11/17 15:44 97.6 81 22 134/84 (101) 95 Nasal Cannula 3 I/O 09/11/17 09/11/17 09/11/17 09/12/17 09/12/17 09/12/17 07:00 15:00 23:00 07:00 15:00 23:00 Intake Total 240 ml 240 ml 1180 ml Balance 240 ml 240 ml 1180 ml Intake Oral 240 ml 240 ml 480 ml IV Total 700 ml # Voids 4 3 # Bowel Movements 1 (J Luis Parker MD, R1) Result Diagram: 09/12/17 0505 09/12/17 0505 Imaging Last Impressions Chest X-Ray 09/11/17 0000 Signed Impressions: Service Date/Time: Monday, September 11, 2017 16:50 - CONCLUSION: 1. Interval worsening diffuse infiltrate in the right lung consistent with possible worsening pneumonia. Clinical correlation is recommended. 2. No pneumothorax. Anthony Brewer MD Chest CT 09/09/17 0000 Signed Impressions: Service Date/Time: Saturday, September 09, 2017 16:15 - CONCLUSION: 1. New diffuse alveolar airspace disease in the right lung with areas of consolidation most characteristic of pneumonia. Volume loss remains in the right hemithorax. 2. Significant improvement in mediastinal adenopathy with smaller amount of anterior mediastinal soft tissue remaining. 3. Mild infiltrate medial lingula and left upper lobe. Terence Dominguez MD ADDENDUM: COMPARISON: CT PULMONARY ANGIOGRAM, August 25, 2017, 9:13. On 08/25/2017 has been increasing consolidation in the right upper lobe, right middle lobe and right lower lobe. The milder coarse infiltrate in the left lung is stable. Terence Dominguez MD Objective Remarks Physical Exam GENERAL: This is a well-nourished, well-developed patient, siting in bed in no apparent distress, appears anxious. SKIN: No rashes, ecchymoses or lesions. Cool and dry. HEAD: Atraumatic. Normocephalic. EYES: Pupils equal round and reactive. Extraocular motions intact. No scleral icterus. No injection or drainage. ENT: Nose without bleeding, purulent drainage or septal hematoma. Airway patent. NECK: Trachea midline. No JVD or lymphadenopathy. Supple, nontender, no meningeal signs. CARDIOVASCULAR: Regular rate and rhythm without murmurs, gallops, or rubs. RESPIRATORY: diminished lung sound on Right lung base, mild rales and crackles noted on Right lower lung base, improved from admission. GASTROINTESTINAL: Abdomen slightly distended, soft, non-tender. No hepato- splenomegaly, or palpable masses. No guarding. MUSCULOSKELETAL: Extremities without clubbing, cyanosis, or edema. Mild joint tenderness of knee joint BL, minimal effusion noted around Left knee- improved, knee joint not erythematous or warm to touch. No calf tenderness. +2 DP pulses BL NEUROLOGICAL: Awake and alert. Motor and sensory grossly within normal limits. Normal speech. Anxious about possible duration of hospital course. (J Luis Parker MD, R1) A/P Assessment and Plan Patient is a 42-year-old male with past medical history of T-cell lymphoma presented with: (J Luis Parker MD, R1) Attending Attestation Patient seen and examined. Case reviewed and discussed Agree with plan of care as discussed with me and documented in the resident note. (Azra Santos MD) Problem List: (1) Pneumonia ICD Codes: J18.9 - Pneumonia, unspecified organism Status: Acute Plan: Patient with recent hospitalization for pneumonia thought to be due to fungal etiology. Patient was discharged on voriconazole and switched to fluconazole by medical oncologist due to side effect of severe bone pain and medical oncology plan plan to extend treatment with fluconazole until patient received bone marrow transplant. On admission patient found to be septic with tachycardia (HR 118), tachypnea ( RR 26), leukocytosis (WBC 13) with infection source being the lungs. Chest x-ray: Increasing infiltrate and density in the right lung with apparent volume loss Fungal workup from prior hospitalization was negative. CT chest with contrast showed worsening right lung infiltrate characteristic of pneumonia. UA negative Legionella and pneumococcal urine antigen negative Blood cultures: No growth 2 days CMV DNA pcr negative Shortness of breath Shortness of breath has improved Patient O2 saturation of 96% on 2 L nasal cannula Albuterol inhaler at bedside Incentive spirometry Albuterol nebulizer every 4 hours for shortness of breath IV methylprednisolone 40 mg every 12hr Tylenol scheduled every 4 for pain IV morphine Q3h PRN for breakthrough pain CXR 09/11: Interval worsening of diffuse infiltrate in right lung consistent with possible worsening pneumonia. No pneumothorax Antibiotic history: Vancomycin 09/09-- present Azithromycin 09/09-- present Zosyn 09/09-- present Voriconazole po 200 mg 09/09-- present Pharmacy consulted for titration of vancomycin dosage ID consulted, appreciate recommendations [employer] and cardiothoracic surgery consulted by Dr. Leigh, appreciate recommendations Patient right lung infiltration appears to be of infectious etiology. Plan to continue antibiotic and antifungal treatment and bronchoscopy procedure to be done by Dr. Aleman to identify inflammation and determine if open lung biopsy is necessary for micro and pathology evaluation. S/p bronchoscopy on 09/11. Medical plan discussed with patient and and they agreed and showed understanding Follow-up: Sputum culture bronchoscopy results Repeat chest x-ray in the morning am labs (2) T-cell lymphoma ICD Codes: C85.90 - Non-Hodgkin lymphoma, unspecified, unspecified site Status: Chronic Plan: Diagnosed w/T cell lymphoma in April per biopsy results follows with Dr. Leigh. Oncology consulted, appreciate recommendations s/p CHOP chemotherapy Right lung infiltrate infection vs recurrence of T cell lymphoma see plan above (3) Knee pain ICD Codes: M25.569 - Pain in unspecified knee Plan: On admission patient with complaint of bilateral knee pain, pain on right knee is worse. Knee pain minimal, stable and well controlled on pain medications. No issues with mobility. continue to monitor consider imaging of right knee (4) Constipation ICD Codes: K59.00 - Constipation, unspecified Status: Acute Plan: continue with advancement of constipation protocol (5) Insomnia ICD Codes: G47.00 - Insomnia, unspecified Status: Acute Plan: Patient with c/o of inability to go to sleep due to anxiety ativan 0.5mg PRN Q8h to aid with improved sleep (6) Nutrition, metabolism, and development symptoms ICD Codes: R63.8 - Other symptoms and signs concerning food and fluid intake Plan: Fluids: IVF at 140mls/hr, patient tolerating p.o. Electrolytes: Replete as needed Nutrition: Regular diet DVT prophylaxis: Lovenox 40 every 24h (J Luis Parker MD, R1) Problem Qualifiers (1) Pneumonia: Qualified Codes: J18.9 - Pneumonia, unspecified organism (2) Knee pain: J Luis Parker MD, R1 Sep 12, 2017 14:15 Azra Santos MD Sep 13, 2017 13:10
[2017-09-12] MEDS: VORICONAZOLE 200 MG TAB PO SCH (18:21)
--- NOTE | 2017-09-12 19:06 | HHI.PR ---
Subjective Remarks 42 YOWM with T-cell lymphoma, S/P CHOP therapy has Bilat infilt had bronch, BAL brushing and bx done No fever or chills Bronchial bx showes no malig, granuloma or viral inclusion body Objective Vital Signs Vital Signs Date Time Temp Pulse Resp B/P (MAP) Pulse Ox O2 Delivery O2 Flow Rate FiO2 09/12/17 11:49 97.1 76 18 131/84 (100) 96 09/12/17 08:47 95 Nasal Cannula 3.00 09/12/17 08:30 96 Nasal Cannula 2.00 09/12/17 08:12 98.2 98 18 137/88 (104) 97 09/12/17 04:00 96 09/12/17 04:00 97.8 99 20 139/84 (102) 09/12/17 00:00 103 09/12/17 00:00 98.3 109 22 125/74 (91) 91 09/11/17 20:00 Nasal Cannula 2.00 09/11/17 20:00 97.9 117 22 123/74 (90) 94 09/11/17 19:18 96 Nasal Cannula 2.00 I/O 09/11/17 09/11/17 09/11/17 09/12/17 09/12/17 09/12/17 07:00 15:00 23:00 07:00 15:00 23:00 Intake Total 240 ml 240 ml 1180 ml Balance 240 ml 240 ml 1180 ml Intake Oral 240 ml 240 ml 480 ml IV Total 700 ml # Voids 4 3 # Bowel Movements 1 Result Diagram: 09/12/17 0505 09/12/17 0505 Objective Remarks GENERAL: WBWN WM,NAD SKIN: Warm and dry. HEAD: Normocephalic. EYES: No scleral icterus. No injection or drainage. NECK: Supple, trachea midline. No JVD or lymphadenopathy. CARDIOVASCULAR: Regular rate and rhythm without murmurs, gallops, or rubs. RESPIRATORY: Breath sounds equal bilaterally. No accessory muscle use. GASTROINTESTINAL: Abdomen soft, non-tender, nondistended. MUSCULOSKELETAL: No cyanosis, or edema. BACK: Nontender without obvious deformity. No CVA tenderness. A/P Assessment and Plan IMPRESSION: 1. Extensive right lung infiltrate and infiltrate in the lingula. Differential diagnosis includes fungal infection, opportunistic infection, bacterial pneumonia on top of that and also possibility of extension of lymphoma. 2. Bronchial asthma. 3. Small pleural effusion. PLAN: Check post bronch cxr Check bronch results cont Abx per ID IV Solumedrol. Will get final cultures and cytology Francis Aleman MD Sep 12, 2017 19:06
[2017-09-12] MEDS: LORazepam 0.5 MG TAB PO PRN (20:31)
[2017-09-12] MEDS ORDERED: VANCOMYCIN INJ 2,000 MG in SODIUM CHLORID 0.9% 500 ML INJ 500 ML IV SCH (21:00)
--- NOTE | 2017-09-12 21:46 | HHI.IDPN ---
Subjective Subjective Remarks Mr. 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 Patient is known to me from his last admission. He reports he underwent 6 sessions of chemotherapy and Radiation therapy so far. He went into remission and CT PET scan from 06/2017 was clear. He follows with of Oncology. He continued on CHOP chemotherapy. In early part of July patient was short of breath. He went to an urgent care in [place] and due to worsening Shortness of breath was admitted to hospital. CXR and CT chest during that admission was diffuse bilateral scattered infiltrates. He did not respond to IV antibiotics but when voriconazole was empirically added he responded well and was discharged home. He completed a 2 week course of voriconazole and improved significantly. His only complaint in the 2 week period was the joint pains. He saw in follow up. She switched him to oral Diflucan with a plan to keep him on it till after chemo and BMTs if determined as candidate. He reports that within 2-3 days of this change he felt worse significantly and now represents to hospital with worsening shortness of breath. Upon discussion with admitting team patient had difficulty completing sentences yesterday and would get winded but today looked much improved on regimen of IV antibiotics, atypical coverage with Azithro and Voriconazole that was empirically restarted yday. At the time of my evaluation, patient is on regular floor. At time of my visit patient was seen by Pulmonology and / residency team. He was sitting up in bed with knees folded appeared comfortable, able to complete sentences. He reported improvement in symptoms since admission and the admitting team echoed similarly. Overnight events reviewed No fevers No rash No diarrhea Feels better. Off oxygen this pm and breathing well. Antibiotics Zosyn IV Vanco IV Azithro IV Voriconazole. Lines Line sites with no e.o infection Past Medical History Past Medical History T-cell lymphoblastic lymphoma. Asthma. History of herniated disk. recurrent pneumonia Past Surgical History Port placement, thoracentesis, CT-guided biopsy of mediastinal mass Bronchoscopy. Allergies: Coded Allergies: No Known Allergies (Unverified , 09/09/17) Objective . Vital Signs Date Time Temp Pulse Resp B/P (MAP) Pulse Ox O2 Delivery O2 Flow Rate FiO2 09/12/17 19:29 98.1 111 20 152/87 (108) 92 09/12/17 16:00 80 09/12/17 12:00 72 09/12/17 11:49 97.1 76 18 131/84 (100) 96 09/12/17 08:47 95 Nasal Cannula 3.00 09/12/17 08:30 96 Nasal Cannula 2.00 09/12/17 08:12 98.2 98 18 137/88 (104) 97 09/12/17 08:00 73 09/12/17 04:00 96 09/12/17 04:00 97.8 99 20 139/84 (102) 09/12/17 00:00 103 09/12/17 00:00 98.3 109 22 125/74 (91) 91 . Laboratory Tests Test 09/11/17 06:15 09/12/17 05:05 White Blood Count 9.1 TH/MM3 7.7 TH/MM3 Red Blood Count 3.89 MIL/MM3 3.63 MIL/MM3 Hemoglobin 11.1 GM/DL 10.5 GM/DL Hematocrit 34.1 % 31.9 % Mean Corpuscular Volume 87.7 FL 87.8 FL Mean Corpuscular Hemoglobin 28.6 PG 28.8 PG Mean Corpuscular Hemoglobin Concent 32.7 % 32.9 % Red Cell Distribution Width 18.8 % 18.9 % Platelet Count 171 TH/MM3 183 TH/MM3 Mean Platelet Volume 7.5 FL 7.3 FL Neutrophils (%) (Auto) 94.3 % 95.1 % Lymphocytes (%) (Auto) 1.3 % 1.2 % Monocytes (%) (Auto) 4.3 % 3.6 % Eosinophils (%) (Auto) 0.0 % 0.0 % Basophils (%) (Auto) 0.1 % 0.1 % Neutrophils # (Auto) 8.6 TH/MM3 7.3 TH/MM3 Lymphocytes # (Auto) 0.1 TH/MM3 0.1 TH/MM3 Monocytes # (Auto) 0.4 TH/MM3 0.3 TH/MM3 Eosinophils # (Auto) 0.0 TH/MM3 0.0 TH/MM3 Basophils # (Auto) 0.0 TH/MM3 0.0 TH/MM3 CBC Comment DIFF FINAL DIFF FINAL Differential Comment Laboratory Tests Test 09/11/17 06:15 09/12/17 05:05 Blood Urea Nitrogen 13 MG/DL 15 MG/DL Creatinine 0.72 MG/DL 0.94 MG/DL Random Glucose 154 MG/DL 237 MG/DL Total Protein 6.5 GM/DL 6.0 GM/DL Albumin 2.6 GM/DL 2.6 GM/DL Calcium Level 8.9 MG/DL 8.6 MG/DL Alkaline Phosphatase 62 U/L 58 U/L Aspartate Amino Transf (AST/SGOT) 35 U/L 17 U/L Alanine Aminotransferase (ALT/SGPT) 102 U/L 84 U/L Total Bilirubin 0.2 MG/DL 0.2 MG/DL Sodium Level 139 MEQ/L 139 MEQ/L Potassium Level 4.3 MEQ/L 4.3 MEQ/L Chloride Level 104 MEQ/L 104 MEQ/L Carbon Dioxide Level 27.6 MEQ/L 25.6 MEQ/L Anion Gap 7 MEQ/L 9 MEQ/L Estimat Glomerular Filtration Rate 120 ML/MIN 88 ML/MIN Microbiology Date/Time Source Procedure Growth Status 09/11/17 15:08 Bronchial Washings Bronchial Fungal Smear - Final NO FUNGAL ELEMENTS SEEN. Resulted 09/11/17 15:08 Bronchial Washings Bronchial Fungal Culture Pending Resulted 09/11/17 15:08 Bronchial Washings Bronchial Acid Fast Stain Pending Received 09/11/17 15:08 Bronchial Washings Bronchial Mycobacterial Culture Pending Received 09/11/17 15:08 Bronchial Washings Bronchial Gram Stain - Final Resulted 09/11/17 15:08 Bronchial Washings Bronchial Bronchial Culture - Preliminary IMMATURE GROWTH - REINCUBATE Resulted 09/11/17 14:57 Bronchial Brushings Right Lower Lobe Fungal Smear Pending Received 09/11/17 14:57 Bronchial Brushings Right Lower Lobe Fungal Culture Pending Received 09/11/17 14:57 Bronchial Brushings Right Lower Lobe Acid Fast Stain Pending Received 09/11/17 14:57 Bronchial Brushings Right Lower Lobe Mycobacterial Culture Pending Received 09/11/17 14:57 Bronchial Brushings Right Lower Lobe Bronchial Aspirate Culture - Preliminary NO GROWTH IN 24 HOURS. Resulted Imaging Last Impressions Chest X-Ray 09/11/17 0000 Signed Impressions: Service Date/Time: Monday, September 11, 2017 16:50 - CONCLUSION: 1. Interval worsening diffuse infiltrate in the right lung consistent with possible worsening pneumonia. Clinical correlation is recommended. 2. No pneumothorax. Anthony Brewer MD Chest CT 09/09/17 0000 Signed Impressions: Service Date/Time: Saturday, September 09, 2017 16:15 - CONCLUSION: 1. New diffuse alveolar airspace disease in the right lung with areas of consolidation most characteristic of pneumonia. Volume loss remains in the right hemithorax. 2. Significant improvement in mediastinal adenopathy with smaller amount of anterior mediastinal soft tissue remaining. 3. Mild infiltrate medial lingula and left upper lobe. Terence Dominguez MD ADDENDUM: COMPARISON: CT PULMONARY ANGIOGRAM, August 25, 2017, 9:13. On 08/25/2017 has been increasing consolidation in the right upper lobe, right middle lobe and right lower lobe. The milder coarse infiltrate in the left lung is stable. Terence Dominguez MD Physical Exam GENERAL: This is a well-nourished, well-developed patient, in no apparent distress. SKIN: No rashes, ecchymoses or lesions. Cool and dry. HEAD: Atraumatic. Normocephalic. No temporal or scalp tenderness. EYES: Pupils equal round and reactive. Extraocular motions intact. No scleral icterus. No injection or drainage. ENT: Nose without bleeding, purulent drainage or septal hematoma. Throat without erythema, tonsillar hypertrophy or exudate. Uvula midline. Airway patent. NECK: Trachea midline. Supple, nontender, no meningeal signs. No LN'jessy CARDIOVASCULAR: HS audible. No murmur. RESPIRATORY: Clear to auscultation. Breath sounds equal bilaterally. No wheezes , rales, or rhonchi. GASTROINTESTINAL: Abdomen soft, non-tender, nondistended. No Organomegaly. MUSCULOSKELETAL: Extremities without clubbing, cyanosis, or edema. No joint tenderness, effusion, or edema noted. No calf tenderness. Negative Homans sign bilaterally. NEUROLOGICAL: Awake and alert. Non focal exam Psych cooperative Port site ok. IV line sites with no e.o infection. Assessment & Plan Remarks Recurrent Pneumonia. DDX: Fungal ?? aspergillosis (prior h/o exposure to mold). Fungal cultures from last bronch negative so far but not final. Serologies may not be reliable as patient is immunecompromised. atypical mycobacteria Lymphoma infiltrates seem less likely as CT right side consolidation more s/ o pneumonia rather than lymphoma. Mediastinal LNpathy improved since last treated and seen in hospital. 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 Recs DC Zosyn IV DC vanco IV Continue Azithro change to oral. Continue Voriconazole 12 lead EKG in am please (pt on Zithro and Voriconazole). If QT prolonged stop Azithro. Call . Pt needs voriconazole (alternate could be isavuconazole which actually has opposite effect on QT). dagoberto Camargo: Bronch findings. Please call Micro and add Aspergillus PCR in BAL specimen (write as verbal order and call Karina to notify her) Repeat CT tomorrow evening at ~ 6 pm which would be 24 hours from change in regimen. If this CT is worsening or same call CT surgery and dont discharge patient. Dagoberto Villa : will stop Zosyn and Vanco IV and keep patient on Azithro to complete a 10 day course from start for azithro. Additionally will keep voriconazole as patient has clinically responded well to both in past despite no serological or micro or path diagnosis. Patient has lived in Mold infested home in last 2 years and definitely has an exposure history. Even if Aspergillus antibody from central airway is negative patient could have Invasive Pulmonary aspergillosis. At this point will hold off on lung biopsy since clinically doing well. If patient has recurrent pneumonia will definitely need open lung biopsy to rule out infectious and malignancy process. dw patient above and dagoberto Villa to continue Voriconazole through the Bone Marrow transplant period and probably thereafter until immune suppressed. Patient made aware of side effects. Patient then went on to tell me he would like to go on cruise to [facility] with his 2 young daughters and as planned. He informed me he has insurance and can be flown. I expressed my concern that if he deteriorates clinically time being of essence the fact that he will be on a cruise is a major factor in delayed or appropriate care. He informs me he will take this cruise unless he worsens. He really would like to make some good memories with his family. I explained to him that I cannot endorse him going on the cruise. I also informed him that if after change in his regimen his repeat CT remains the same he will need lung biopsy and will not be discharged home until further workup. He understands and will cooperate if he deteriorates after change in regimen. Time spent in excess of 80 mins, critical thinking and decision making. Coordination of care with multiple MDs, review of medical records from prior visits. Sarah Dwyer MD Sep 12, 2017 21:46
[2017-09-13] VITALS (11 sets, daily range): BP systolic 142–157; BP diastolic 86–99; PULSE 84–116; RESP 16–22; TEMP 97.6–98.7; O2SAT 92–95
[2017-09-13] MEDS: MORPHINE SULFATE 10 MG/ML INJ IV PUSH PRN ×3 (02:21→08:41)
[2017-09-13] MEDS: ACETAMINOPHEN 325 MG TAB PO SCH ×4 (02:21→12:13)
[2017-09-13] MEDS: RESP: ALBUTEROL 2.5 MG/3 ML NEB (SCH) NEB ×5 (03:26→19:43)
[2017-09-13] MEDS: VORICONAZOLE 200 MG TAB PO SCH ×2 (05:31→18:24)
[2017-09-13] MEDS: SODIUM CHLOR 0.9% 1000 ML INJ 1,000 ML IV SCH ×2 (05:32→12:33)
[2017-09-13 06:06] LABS: AUTOMATED NEUTROPHIL # 6.2 TH/MM3 (1.8-7.7); BASOPHIL % 0.3 % (0.0-2.0); HEMATOCRIT 31.5 % (39.0-51.0); HEMOGLOBIN 10.8 GM/DL (13.0-17.0); LYMPH % 1.5 % (9.0-44.0); LYMPHOCYTE # 0.1 TH/MM3 (1.0-4.8); MEAN CELL VOLUME 86.6 FL (80.0-100.0); MEAN CORPUSCULAR HEMOGLOBIN 29.7 PG (27.0-34.0); MEAN CORPUSCULAR HGB CONC 34.3 % (32.0-36.0); MEAN PLATELET VOLUME 7.2 FL (7.0-11.0); MONO % 4.4 % (0.0-8.0); MONOCYTE # 0.3 TH/MM3 (0-0.9); NEUT % 93.8 % (16.0-70.0); PLATELET COUNT 178 TH/MM3 (150-450); RED BLOOD COUNT 3.63 MIL/MM3 (4.50-5.90); RED CELL DISTRIBUTION WIDTH 18.5 % (11.6-17.2); WHITE BLOOD COUNT 6.6 TH/MM3 (4.0-11.0)
[2017-09-13 06:31] LABS: ALBUMIN 2.6 GM/DL (3.4-5.0); AST (GOT) 20 U/L (15-37); BICARBONATE 27.3 MEQ/L (21.0-32.0); BLOOD UREA NITROGEN 14 MG/DL (7-18); CALCIUM 8.9 MG/DL (8.5-10.1); CHLORIDE 104 MEQ/L (98-107); CREATININE 0.81 MG/DL (0.60-1.30); GLOMERULAR FILTRATION RATE 105 ML/MIN (>89); GLUCOSE,RANDOM 176 MG/DL (74-106); SODIUM (NA) 141 MEQ/L (136-145)
[2017-09-13 06:36] LABS: ALKALINE PHOSPHATASE 56 U/L (45-117); ALT (GPT) 76 U/L (12-78); TOTAL BILIRUBIN ADULT 0.2 MG/DL (0.2-1.0)
[2017-09-13] MEDS: AZITHROMYCIN 250 MG TAB PO SCH (08:24)
[2017-09-13] MEDS: LORazepam 0.5 MG TAB PO PRN ×3 (08:24→20:44)
[2017-09-13] MEDS: PANTOPRAZOLE SODIUM 40 MG VIAL IV PUSH SCH (08:24)
[2017-09-13] MEDS: methylPREDNISolone SOD SUCC 40 MG/1 ML VIAL IV PUSH SCH (08:24)
[2017-09-13] MEDS: DOCUSATE SODIUM 50 MG/SENNA 8.6 MG TAB PO SCH ×2 (08:25→20:44)
--- NOTE | 2017-09-13 09:50 | PD.ONC.PN ---
Subjective Subjective Remarks Afebrile overnight. Patient resting in bed. Really wanting to go home so he can go on his cruise. Breathing improved. Coughing up phlegm. Objective Data Date Time Temp Pulse Resp B/P (MAP) Pulse Ox O2 Delivery O2 Flow Rate FiO2 09/13/17 08:41 93 Nasal Cannula 3.00 09/13/17 04:00 98.5 96 20 152/99 (116) 94 09/13/17 04:00 84 09/13/17 00:00 97.8 99 20 142/92 (109) 92 09/13/17 00:00 91 09/12/17 22:02 95 09/12/17 20:00 Nasal Cannula 3.00 09/12/17 20:00 108 09/12/17 19:29 98.1 111 20 152/87 (108) 92 09/12/17 16:00 80 09/12/17 12:00 72 09/12/17 11:49 97.1 76 18 131/84 (100) 96 Result Diagram: 09/13/17 0530 09/13/17 0530 Laboratory Results Laboratory Tests Test 09/13/17 05:30 White Blood Count 6.6 TH/MM3 Red Blood Count 3.63 MIL/MM3 Hemoglobin 10.8 GM/DL Hematocrit 31.5 % Mean Corpuscular Volume 86.6 FL Mean Corpuscular Hemoglobin 29.7 PG Mean Corpuscular Hemoglobin Concent 34.3 % Red Cell Distribution Width 18.5 % Platelet Count 178 TH/MM3 Mean Platelet Volume 7.2 FL Neutrophils (%) (Auto) 93.8 % Lymphocytes (%) (Auto) 1.5 % Monocytes (%) (Auto) 4.4 % Eosinophils (%) (Auto) 0.0 % Basophils (%) (Auto) 0.3 % Neutrophils # (Auto) 6.2 TH/MM3 Lymphocytes # (Auto) 0.1 TH/MM3 Monocytes # (Auto) 0.3 TH/MM3 Eosinophils # (Auto) 0.0 TH/MM3 Basophils # (Auto) 0.0 TH/MM3 CBC Comment DIFF FINAL Differential Comment Blood Urea Nitrogen 14 MG/DL Creatinine 0.81 MG/DL Random Glucose 176 MG/DL Total Protein 6.0 GM/DL Albumin 2.6 GM/DL Calcium Level 8.9 MG/DL Alkaline Phosphatase 56 U/L Aspartate Amino Transf (AST/SGOT) 20 U/L Alanine Aminotransferase (ALT/SGPT) 76 U/L Total Bilirubin 0.2 MG/DL Sodium Level 141 MEQ/L Potassium Level 4.2 MEQ/L Chloride Level 104 MEQ/L Carbon Dioxide Level 27.3 MEQ/L Anion Gap 10 MEQ/L Estimat Glomerular Filtration Rate 105 ML/MIN Culture Results Microbiology Date/Time Source Procedure Growth Status 09/11/17 15:08 Bronchial Washings Bronchial Fungal Smear - Final NO FUNGAL ELEMENTS SEEN. Resulted 09/11/17 15:08 Bronchial Washings Bronchial Fungal Culture Pending Resulted 09/11/17 15:08 Bronchial Washings Bronchial Acid Fast Stain Pending Received 09/11/17 15:08 Bronchial Washings Bronchial Mycobacterial Culture Pending Received 09/11/17 15:08 Bronchial Washings Bronchial Gram Stain - Final Resulted 09/11/17 15:08 Bronchial Washings Bronchial Bronchial Culture - Preliminary IMMATURE GROWTH - REINCUBATE Resulted 09/11/17 14:57 Bronchial Brushings Right Lower Lobe Fungal Smear Pending Received 09/11/17 14:57 Bronchial Brushings Right Lower Lobe Fungal Culture Pending Received 09/11/17 14:57 Bronchial Brushings Right Lower Lobe Acid Fast Stain Pending Received 09/11/17 14:57 Bronchial Brushings Right Lower Lobe Mycobacterial Culture Pending Received 09/11/17 14:57 Bronchial Brushings Right Lower Lobe Bronchial Aspirate Culture - Preliminary NO GROWTH IN 24 HOURS. Resulted Administered Medications Medications (Trade) Dose Ordered Sig/Suzan Route PRN Reason Start Time Stop Time Status Last Admin Dose Admin Sodium Chloride (NS Flush) 2 ml UNSCH PRN IVF FLUSH AFTER USING IV ACCESS 09/09/17 10:15 09/13/17 08:25 Enoxaparin Sodium (Lovenox Inj) 40 mg Q24H SQ 09/09/17 16:00 Future Hold 09/09/17 16:34 Senna/Docusate Sodium (Naa-Colace) 1 tab BID PO 09/09/17 21:00 09/13/17 08:25 Magnesium Hydroxide (Milk Of Magnesia Liq) 30 ml Q12H PRN PO Mild constipation 09/09/17 15:15 09/12/17 09:52 Lactulose (Lactulose Liq) 30 ml DAILY PRN PO SEVERE CONSITIPATION 09/09/17 15:15 09/13/17 08:24 Acetaminophen (Tylenol) 650 mg Q4H PO 09/09/17 17:00 09/13/17 16:59 09/13/17 08:24 Methylprednisolone Sodium Succinate (SoluMEDROL INJ) 40 mg Q12HR IV PUSH 09/09/17 18:00 09/13/17 08:24 Albuterol Sulfate (Albuterol Neb) 2.5 mg Q4HR NEB NEB 09/09/17 20:00 09/13/17 08:39 Sodium Chloride 1,000 ml @ 140 mls/hr Q7H9M IV 09/09/17 22:45 09/13/17 05:32 Voriconazole (Vfend) 200 mg Q12H PO 09/12/17 18:00 09/13/17 05:31 Pantoprazole Sodium (Protonix Inj) 40 mg Q24H IV PUSH 09/12/17 08:30 09/13/17 08:24 Al Hydrox/Mg Hydrox/Simethicone (Mag-Al Plus Susp Liq) 30 ml Q6H PRN PO DYSPEPSIA OR HEARTBURN 09/12/17 08:30 09/12/17 09:52 Lorazepam (Ativan) 0.5 mg Q6H PRN PO anxiety 09/12/17 12:45 09/13/17 08:24 Azithromycin (Zithromax) 500 mg DAILY PO 09/13/17 09:00 09/13/17 08:24 Morphine Sulfate (Morphine Inj) 5 mg Q3HR PRN IV PUSH PAIN SCALE 6 TO 10 09/12/17 23:45 09/13/17 08:41 Objective Remarks GENERAL: Middle aged male, upright in bed in [facility]. SKIN: Warm and dry. HEAD: Normocephalic. EYES: No injection or drainage. NECK: Supple, trachea midline. CARDIOVASCULAR: Regular rate and rhythm. RESPIRATORY: improved aeroation, right lung flores. on 3L O2 via NC GASTROINTESTINAL: Abdomen soft, non-tender, nondistended. EXTREMITIES: No cyanosis, NEUROLOGICAL: awake, alert. normal speech. moving extremities. Assessment/Plan Problem List: (1) Pneumonia ICD Codes: J18.9 - Pneumonia, unspecified organism Status: Acute Plan: 09/13: breathing improved with current antibiotic/antifungal regimen. check CT today. 09/11/17. s/p bronchoscopy cultures pending. effort to avoid open lung biopsy. --unclear etiology --on VFEND --ID following. --needs lung biopsy, CTS consulted. (2) T-cell lymphoma ICD Codes: C85.90 - Non-Hodgkin lymphoma, unspecified, unspecified site Status: Chronic Plan: --concern for recurrence --in remission --received CHOP chemotherapy in clinic. Assessment 42y/o male with T-cell lymphoma admitted with worsening right lung infiltrate. Plan 1. ok to d/c when cleared by ID 2. repeat CT this morning. Attending Statement The exam, history, and the medical decision-making described in the above note were completed with the assistance of the mid-level provider. I reviewed and agree with the findings presented. I attest that I had a [id number] encounter with the patient on the same day, and personally performed and documented my assessment and findings in the medical record. Discussed at length with Dr. Dwyer. Improved clinically, pt eager to go home. Afebrile. Not worse after stopping Vancomycin and Zosyn. Clinically suspect fungal infection responding to Voriconazole. CT chest not worse, marginally better. Ok for DC from heme/onc stand point to continue follow up as out patient. Defer CTS thorascopic biopsy for now. PCR for aspergillosis ordered and pending. Discussed bone pain for which he is using short acting morphine. Discussed trial small dose of methadone, long acting for bone pain Continue morphine for breakthrough. DC home in AM pending continue clinically stable. Problem Qualifiers (1) Pneumonia: Qualified Codes: J18.9 - Pneumonia, unspecified organism Doris Liu Sep 13, 2017 09:50 Aysha Leigh MD Sep 13, 2017 19:10
[2017-09-13] MEDS ORDERED: IOHEXOL 350 MG/ML 10 ML VIAL (for RAD DIAG) IVCONTRAST ONE (10:00)
--- NOTE | 2017-09-13 10:20 | RADRPT ---
EXAM DATE/TIME: 09/13/2017 10:00 [facility] COMPARISON: CT THORAX W CONTRAST, September 09, 2017, 16:15. INDICATIONS : Pneumonia. IV CONTRAST: 69 cc Omnipaque 350 (iohexol) IV RADIATION DOSE: 17.87 CTDIvol (mGy) MEDICAL HISTORY : Lymphoma. Hypertension. SURGICAL HISTORY : None. ENCOUNTER: Initial ACUITY: 1 day PAIN SCALE: 0/10 LOCATION: chest TECHNIQUE: Volumetric scanning of the chest was performed. Using automated exposure control and adjustment of t he mA and/or kV according to patient size, radiation dose was kept as low as reasonably achievable to obtain optimal diagnostic quality images. DICOM format image data is available electronically for review and comparison. Follow-up recommendations for detected pulmonary nodules are based at a minimum on nodule size and pa tient risk factors according to Fleischner Society Guidelines. FINDINGS: LUNGS: There again is significant consolidation infiltrate throughout the right lung with volume loss. The d ense consolidations are for the most part stable since the PLEURA: There is a small right pleural effusion. MEDIASTINUM: The heart and great vessels demonstrate no acute abnormality. There is no mediastinal or hilar lymph adenopathy. Some fluid in the superior pericardial recess AXILLAE: Within normal limits. No lymphadenopathy. SKELETAL: Within normal limits for patient age. MISCELLANEOUS: The visualized upper abdominal organs demonstrate no acute abnormality. Again the fatty liver CONCLUSION: Diffuse infiltrate throughout the right lung including some areas of complete consolidation and groun dglass infiltrates. Multifocal areas are stable since the earlier CT scan. Minimal fluid in the super ior pericardial recess. Nathan Key MD on September 13, 2017 at 10:15 Board Certified Radiologist. This report was verified electronically.
--- NOTE | 2017-09-13 10:55 | HHI.FPPN ---
Subjective Remarks Patient seen and examined at bedside this morning. No acute events overnight. Patient stated ativan helped him with his anxiety and sleep yesterday. His breathing has improved. Pt had a BM yesterday. Pt stated he has been able to bring up some phlegm with cough . (J Luis Parker MD, R1) Objective Vitals Vital Signs Date Time Temp Pulse Resp B/P (MAP) Pulse Ox O2 Delivery O2 Flow Rate FiO2 09/13/17 08:41 93 Nasal Cannula 3.00 09/13/17 08:30 97.6 110 16 148/86 (106) 92 09/13/17 04:00 98.5 96 20 152/99 (116) 94 09/13/17 04:00 84 09/13/17 00:00 97.8 99 20 142/92 (109) 92 09/13/17 00:00 91 09/12/17 22:02 95 09/12/17 20:00 Nasal Cannula 3.00 09/12/17 20:00 108 09/12/17 19:29 98.1 111 20 152/87 (108) 92 09/12/17 16:00 80 09/12/17 12:00 72 09/12/17 11:49 97.1 76 18 131/84 (100) 96 I/O 09/12/17 09/12/17 09/12/17 09/13/17 09/13/17 09/13/17 07:00 15:00 23:00 07:00 15:00 23:00 Intake Total 1180 ml 520 ml Balance 1180 ml 520 ml Intake Oral 480 ml IV Total 700 ml 520 ml # Voids 3 (J Luis Parker MD, R1) Result Diagram: 09/13/17 0530 09/13/17 0530 Objective Remarks Physical Exam GENERAL: This is a well-nourished, well-developed patient, siting in bed in no apparent distress SKIN: No rashes, ecchymoses or lesions. Cool and dry. HEAD: Atraumatic. Normocephalic. EYES: Pupils equal round and reactive. Extraocular motions intact. No scleral icterus. No injection or drainage. ENT: Nose without bleeding, purulent drainage or septal hematoma. Airway patent. NECK: Trachea midline. No JVD or lymphadenopathy. Supple, nontender, no meningeal signs. CARDIOVASCULAR: Regular rate and rhythm without murmurs, gallops, or rubs. RESPIRATORY: diminished lung sound on Right lung base, improved. GASTROINTESTINAL: Abdomen slightly distended, soft, non-tender. No hepato- splenomegaly, or palpable masses. No guarding. MUSCULOSKELETAL: Extremities without clubbing, cyanosis, or edema. Mild joint tenderness of knee joint BL, minimal effusion noted around Left knee- improved, knee joint not erythematous or warm to touch. No calf tenderness. +2 DP pulses BL NEUROLOGICAL: Awake and alert. Motor and sensory grossly within normal limits. Normal speech. (J Luis Parker MD, R1) A/P Assessment and Plan Patient is a 42-year-old male with past medical history of T-cell lymphoma presented with: (J Luis Parker MD, R1) Attending Attestation Patient seen and examined. Case reviewed and discussed Agree with plan of care as discussed with me and documented in the resident note. CT to be completed after 6pm tonight. Further plan of care to be determined after that point. Discussed with patient. (Azra Santos MD) Problem List: (1) Pneumonia ICD Codes: J18.9 - Pneumonia, unspecified organism Status: Acute Plan: Patient with recent hospitalization for pneumonia thought to be due to fungal etiology. Patient was discharged on voriconazole and switched to fluconazole by medical oncologist due to side effect of severe bone pain and medical oncology plan plan to extend treatment with fluconazole until patient received bone marrow transplant. On admission patient found to be septic with tachycardia (HR 118), tachypnea ( RR 26), leukocytosis (WBC 13) with infection source being the lungs. Chest x-ray: Increasing infiltrate and density in the right lung with apparent volume loss Fungal workup from prior hospitalization was negative. CT chest with contrast showed worsening right lung infiltrate characteristic of pneumonia. UA negative Legionella and pneumococcal urine antigen negative Blood cultures: No growth 2 days CMV DNA pcr negative Shortness of breath Shortness of breath has improved Albuterol inhaler at bedside Incentive spirometry Albuterol nebulizer every 4 hours for shortness of breath IV methylprednisolone 40 mg every 12hr Tylenol scheduled every 4 for pain IV morphine Q3h PRN for breakthrough pain CXR 09/11: Interval worsening of diffuse infiltrate in right lung consistent with possible worsening pneumonia. No pneumothorax Antibiotic history: Vancomycin 09/09-- 09/12 Azithromycin 09/09-- present Zosyn 09/09-- 09/12 Voriconazole po 200 mg 09/09-- present Pharmacy consulted for titration of vancomycin dosage ID consulted, appreciate recommendations Service Manager and cardiothoracic surgery consulted by Dr. Leigh, appreciate recommendations Patient right lung infiltration appears to be of infectious etiology. Plan to continue antibiotic and antifungal treatment and bronchoscopy procedure to be done by Dr. Aleman to identify inflammation and determine if open lung biopsy is necessary for micro and pathology evaluation. S/p bronchoscopy on 09/11. Medical plan discussed with patient and and they agreed and showed understanding Antibiotics regimen updated Switch antifungal if pt found to have prolonged QT on EKG repeat CT chest this evening BAL results: Fungal smear: No fungal elements Acid-fast stain: No acid-fast bacilli Bronchial culture: Light growth normal respiratory edgard Gram stain: no organisms seen Biopsy of right lower lobe of lung: Bronchial mucosa with focal reactive atypia of the basal layers. Fragment of tissue with focal markedly reactive interstitial fibrosis and markedly reactive bronchial epithelial cells. Viral inclusions are not identified. Follow-up: Sputum culture EKG CT chest am labs (2) T-cell lymphoma ICD Codes: C85.90 - Non-Hodgkin lymphoma, unspecified, unspecified site Status: Chronic Plan: Diagnosed w/T cell lymphoma in April per biopsy results follows with Dr. Leigh. Oncology consulted, appreciate recommendations s/p CHOP chemotherapy Right lung infiltrate infection vs recurrence of T cell lymphoma see plan above (3) Knee pain ICD Codes: M25.569 - Pain in unspecified knee Plan: On admission patient with complaint of bilateral knee pain, pain on right knee is worse. Knee pain minimal, stable and well controlled on pain medications. No issues with mobility. continue to monitor consider imaging of right knee (4) Constipation ICD Codes: K59.00 - Constipation, unspecified Status: Acute Plan: continue with advancement of constipation protocol (5) Insomnia ICD Codes: G47.00 - Insomnia, unspecified Status: Acute Plan: Patient with c/o of inability to go to sleep due to anxiety, improved overnight c/w ativan 0.5mg PRN Q8h to aid with improved sleep (6) Nutrition, metabolism, and development symptoms ICD Codes: R63.8 - Other symptoms and signs concerning food and fluid intake Plan: Fluids: IVF at 140mls/hr, patient tolerating p.o. Electrolytes: Replete as needed Nutrition: Regular diet DVT prophylaxis: Lovenox 40 every 24h (J Luis Parker MD, R1) Problem Qualifiers (1) Pneumonia: Qualified Codes: J18.9 - Pneumonia, unspecified organism (2) Knee pain: J Luis Parker MD, R1 Sep 13, 2017 10:55 Azra Santos MD Sep 13, 2017 13:11
[2017-09-13] MEDS ORDERED: MORPHINE SULFATE 30 MG TAB PO PRN ×3 (11:30→13:30)
[2017-09-13] MEDS ORDERED: SODIUM CHLOR 0.9% 1000 ML INJ 1,000 ML IV ONE (13:15)
[2017-09-13] MEDS: MORPHINE SULFATE 30 MG TAB PO PRN ×3 (15:15→23:53)
[2017-09-13] MEDS: ENOXAPARIN SODIUM 40 MG/0.4 ML SYRINGE SQ SCH (15:39)
--- NOTE | 2017-09-13 18:33 | HHI.PR ---
Subjective Remarks 42 YOWM with T-cell lymphoma, S/P CHOP therapy has Bilat infilt had bronch, BAL brushing and bx done No fever or chills Bronchial bx showes no malig, granuloma or viral inclusion body Cytology Neg, PCP and Fungal Neg Objective Vital Signs Vital Signs Date Time Temp Pulse Resp B/P (MAP) Pulse Ox O2 Delivery O2 Flow Rate FiO2 09/13/17 15:16 94 Nasal Cannula 2.00 09/13/17 11:20 97.9 110 18 147/93 (111) 93 09/13/17 08:41 93 Nasal Cannula 3.00 09/13/17 08:30 97.6 110 16 148/86 (106) 92 09/13/17 08:30 92 Nasal Cannula 2.00 09/13/17 08:00 97 09/13/17 04:00 98.5 96 20 152/99 (116) 94 09/13/17 04:00 84 09/13/17 00:00 97.8 99 20 142/92 (109) 92 09/13/17 00:00 91 09/12/17 22:02 95 09/12/17 20:00 Nasal Cannula 3.00 09/12/17 20:00 108 09/12/17 19:29 98.1 111 20 152/87 (108) 92 I/O 09/12/17 09/12/17 09/12/17 09/13/17 09/13/17 09/13/17 07:00 15:00 23:00 07:00 15:00 23:00 Intake Total 1180 ml 520 ml 1000 ml Balance 1180 ml 520 ml 1000 ml Intake Oral 480 ml IV Total 700 ml 520 ml 1000 ml # Voids 3 Result Diagram: 09/13/17 0530 09/13/17 0530 Objective Remarks GENERAL: WBWN WM,NAD SKIN: Warm and dry. HEAD: Normocephalic. EYES: No scleral icterus. No injection or drainage. NECK: Supple, trachea midline. No JVD or lymphadenopathy. CARDIOVASCULAR: Regular rate and rhythm without murmurs, gallops, or rubs. RESPIRATORY: Breath sounds equal bilaterally. No accessory muscle use. GASTROINTESTINAL: Abdomen soft, non-tender, nondistended. MUSCULOSKELETAL: No cyanosis, or edema. BACK: Nontender without obvious deformity. No CVA tenderness. A/P Assessment and Plan IMPRESSION: 1. Extensive right lung infiltrate and infiltrate in the lingula. Differential diagnosis includes fungal infection, opportunistic infection, bacterial pneumonia on top of that and also possibility of extension of lymphoma. 2. Bronchial asthma. 3. Small pleural effusion. PLAN: cont Abx per ID IV Solumedrol. Stable on RA Francis Aleman MD Sep 13, 2017 18:33
[2017-09-13] MEDS ORDERED: PILL SPLITTER OTHER PRN (19:15)
[2017-09-13] MEDS: METHADONE HCL 10 MG TAB PO SCH (20:44)
--- NOTE | 2017-09-13 23:38 | EKG ---
Date Performed: 09/13/2017 Time Performed: 13:30:51 PTAGE: 42 years EKG: SINUS TACHYCARDIA NONSPECIFIC ST & T-WAVE ABNORMALITY ABNORMAL RHYTHM ECG PREVIOUS TRACING : 09/09/2017 09.56 Since the previous tracing, no significant change noted DOCTOR: Martín Giles Interpretating Date/Time 09/13/2017 23:37:07
[2017-09-14] VITALS (13 sets, daily range): BP systolic 131–151; BP diastolic 87–97; PULSE 82–106; RESP 18–22; TEMP 98.3–98.7; O2SAT 92–95
[2017-09-14] MEDS: MORPHINE SULFATE 30 MG TAB PO PRN ×4 (04:03→21:49)
[2017-09-14 05:06] LABS: BASOPHIL % 0.3 % (0.0-2.0); EOSINOPHIL % 0.2 % (0.0-4.0); HEMATOCRIT 32.5 % (39.0-51.0); HEMOGLOBIN 10.7 GM/DL (13.0-17.0); LYMPH % 3.8 % (9.0-44.0); LYMPHOCYTE # 0.3 TH/MM3 (1.0-4.8); MEAN CELL VOLUME 86.7 FL (80.0-100.0); MEAN CORPUSCULAR HEMOGLOBIN 28.6 PG (27.0-34.0); MEAN PLATELET VOLUME 7.3 FL (7.0-11.0); MONO % 7.9 % (0.0-8.0); MONOCYTE # 0.5 TH/MM3 (0-0.9); NEUT % 87.8 % (16.0-70.0); PLATELET COUNT 175 TH/MM3 (150-450); RED BLOOD COUNT 3.74 MIL/MM3 (4.50-5.90); RED CELL DISTRIBUTION WIDTH 18.6 % (11.6-17.2); WHITE BLOOD COUNT 6.8 TH/MM3 (4.0-11.0)
[2017-09-14 05:23] LABS: ALBUMIN 2.7 GM/DL (3.4-5.0); AST (GOT) 20 U/L (15-37); BICARBONATE 29.1 MEQ/L (21.0-32.0); BLOOD UREA NITROGEN 16 MG/DL (7-18); CALCIUM 8.8 MG/DL (8.5-10.1); CHLORIDE 105 MEQ/L (98-107); CREATININE 0.82 MG/DL (0.60-1.30); GLOMERULAR FILTRATION RATE 103 ML/MIN (>89); GLUCOSE,RANDOM 122 MG/DL (74-106); SODIUM (NA) 144 MEQ/L (136-145)
[2017-09-14 05:25] LABS: ALT (GPT) 68 U/L (12-78)
[2017-09-14 05:27] LABS: ALKALINE PHOSPHATASE 54 U/L (45-117); TOTAL BILIRUBIN ADULT 0.2 MG/DL (0.2-1.0); TOTAL PROTEIN 5.8 GM/DL (6.4-8.2)
[2017-09-14 06:06] LABS: BANDS 4 % (0-6); LYMPHOCYTES 2 % (9-44); METAMYELOCYTES 1 % (0-1); MONOCYTES 7 % (0-8); MYELOCYTES 2 % (0-0); NEUTROPHIL # MANUAL DIFF 6.2 TH/MM3 (1.8-7.7); POLYS (SEG NEUTROPHILS) 84 % (16-70); TEARDROP RBCS 1+ (NORMAL)
[2017-09-14] MEDS ORDERED: SODIUM CHLOR 0.9% 1000 ML INJ 1,000 ML IV ONE (07:00)
[2017-09-14] MEDS: VORICONAZOLE 200 MG TAB PO SCH ×2 (07:24→18:27)
--- NOTE | 2017-09-14 08:41 | PD.ONC.PN ---
Subjective Subjective Remarks Afebrile overnight. Patient excited he is going home today. had a nose bleed last night d/t dried naris from oxygen therapy. pain control improved with MSIR + Methadone. Objective Data Date Time Temp Pulse Resp B/P (MAP) Pulse Ox O2 Delivery O2 Flow Rate FiO2 09/14/17 08:10 93 Nasal Cannula 2.00 09/14/17 04:00 95 09/14/17 04:00 98.3 102 22 131/97 (108) 92 09/14/17 00:00 82 09/14/17 00:00 98.3 95 22 143/91 (108) 93 09/13/17 20:00 Nasal Cannula 2.00 09/13/17 20:00 98.4 107 22 157/92 (113) 92 09/13/17 20:00 116 09/13/17 19:35 2.00 09/13/17 16:00 98 09/13/17 16:00 98.0 110 22 144/88 (106) 95 09/13/17 15:16 94 Nasal Cannula 2.00 09/13/17 12:00 110 09/13/17 11:20 97.9 110 18 147/93 (111) 93 09/13/17 08:41 93 Nasal Cannula 3.00 09/14/17 09/14/17 09/14/17 07:00 15:00 23:00 Intake Total 240 ml Output Total 400 ml Balance -160 ml Result Diagram: 09/14/17 0400 09/14/17 0400 Laboratory Results Laboratory Tests Test 09/14/17 04:00 White Blood Count 6.8 TH/MM3 Red Blood Count 3.74 MIL/MM3 Hemoglobin 10.7 GM/DL Hematocrit 32.5 % Mean Corpuscular Volume 86.7 FL Mean Corpuscular Hemoglobin 28.6 PG Mean Corpuscular Hemoglobin Concent 33.0 % Red Cell Distribution Width 18.6 % Platelet Count 175 TH/MM3 Mean Platelet Volume 7.3 FL Neutrophils (%) (Auto) 87.8 % Lymphocytes (%) (Auto) 3.8 % Monocytes (%) (Auto) 7.9 % Eosinophils (%) (Auto) 0.2 % Basophils (%) (Auto) 0.3 % Neutrophils # (Auto) 6.0 TH/MM3 Lymphocytes # (Auto) 0.3 TH/MM3 Monocytes # (Auto) 0.5 TH/MM3 Eosinophils # (Auto) 0.0 TH/MM3 Basophils # (Auto) 0.0 TH/MM3 CBC Comment AUTO DIFF Differential Total Cells Counted 100 Neutrophils % (Manual) 84 % Band Neutrophils % 4 % Lymphocytes % 2 % Monocytes % 7 % Neutrophils # (Manual) 6.2 TH/MM3 Metamyelocytes 1 % Myelocytes 2 % Differential Comment FINAL DIFF MANUAL Platelet Estimate NORMAL Platelet Morphology Comment NORMAL Tear Drop Cells 1+ Blood Urea Nitrogen 16 MG/DL Creatinine 0.82 MG/DL Random Glucose 122 MG/DL Total Protein 5.8 GM/DL Albumin 2.7 GM/DL Calcium Level 8.8 MG/DL Alkaline Phosphatase 54 U/L Aspartate Amino Transf (AST/SGOT) 20 U/L Alanine Aminotransferase (ALT/SGPT) 68 U/L Total Bilirubin 0.2 MG/DL Sodium Level 144 MEQ/L Potassium Level 3.8 MEQ/L Chloride Level 105 MEQ/L Carbon Dioxide Level 29.1 MEQ/L Anion Gap 10 MEQ/L Estimat Glomerular Filtration Rate 103 ML/MIN Culture Results Microbiology Date/Time Source Procedure Growth Status 09/11/17 15:08 Bronchial Washings Bronchial Fungal Smear - Final NO FUNGAL ELEMENTS SEEN. Resulted 09/11/17 15:08 Bronchial Washings Bronchial Fungal Culture Pending Resulted 09/11/17 15:08 Bronchial Washings Bronchial Acid Fast Stain - Final NO ACID FAST BACILLI SEEN Resulted 09/11/17 15:08 Bronchial Washings Bronchial Mycobacterial Culture Pending Resulted 09/11/17 15:08 Bronchial Washings Bronchial Gram Stain - Final Complete 09/11/17 15:08 Bronchial Washings Bronchial Bronchial Culture - Final LIGHT GROWTH NORMAL RESPIRATORY TYRON Complete 09/11/17 14:57 Bronchial Brushings Right Lower Lobe Fungal Smear - Final Resulted 09/11/17 14:57 Bronchial Brushings Right Lower Lobe Fungal Culture Pending Resulted 09/11/17 14:57 Bronchial Brushings Right Lower Lobe Acid Fast Stain - Final NO ACID FAST BACILLI SEEN Resulted 09/11/17 14:57 Bronchial Brushings Right Lower Lobe Mycobacterial Culture Pending Resulted 09/11/17 14:57 Bronchial Brushings Right Lower Lobe Bronchial Aspirate Culture - Final NO GROWTH IN 48 HOURS. Complete 09/11/17 15:08 Other Pending Received Imaging Studies Last [address] 09/13/17 0913 Signed Impressions: Service Date/Time: Wednesday, September 13, 2017 10:00 - CONCLUSION: Diffuse infiltrate throughout the right lung including some areas of complete consolidation and groundglass infiltrates. Multifocal areas are stable since the earlier CT scan. Minimal fluid in the superior pericardial recess. Nathan Key MD Administered Medications Medications (Trade) Dose Ordered Sig/Suzan Route PRN Reason Start Time Stop Time Status Last Admin Dose Admin Sodium Chloride (NS Flush) 2 ml UNSCH PRN IVF FLUSH AFTER USING IV ACCESS 09/09/17 10:15 09/13/17 08:25 Enoxaparin Sodium (Lovenox Inj) 40 mg Q24H SQ 09/09/17 16:00 Future hold 09/13/17 15:39 Senna/Docusate Sodium (Naa-Colace) 1 tab BID PO 09/09/17 21:00 09/13/17 20:44 Magnesium Hydroxide (Milk Of Magnesia Liq) 30 ml Q12H PRN PO Mild constipation 09/09/17 15:15 09/12/17 09:52 Lactulose (Lactulose Liq) 30 ml DAILY PRN PO SEVERE CONSITIPATION 09/09/17 15:15 09/13/17 08:24 Voriconazole (Vfend) 200 mg Q12H PO 09/12/17 18:00 09/14/17 07:24 Pantoprazole Sodium (Protonix Inj) 40 mg Q24H IV PUSH 09/12/17 08:30 09/13/17 08:24 Al Hydrox/Mg Hydrox/Simethicone (Mag-Al Plus Susp Liq) 30 ml Q6H PRN PO DYSPEPSIA OR HEARTBURN 09/12/17 08:30 09/12/17 09:52 Lorazepam (Ativan) 0.5 mg Q6H PRN PO anxiety 09/12/17 12:45 09/13/17 20:44 Azithromycin (Zithromax) 500 mg DAILY PO 09/13/17 09:00 09/13/17 08:24 Morphine Sulfate (Msir) 30 mg Q3HR PRN PO PAIN1-10 09/13/17 13:45 09/14/17 04:03 Methadone HCl (Dolophine) 2.5 mg DAILY PO 09/13/17 19:15 09/13/17 20:44 Objective Remarks GENERAL: Middle aged male, sitting up in bed SKIN: Warm and dry. HEAD: Normocephalic. small amount of dried blood on side of naris, no active bleeding. EYES: No injection or drainage. NECK: Supple, trachea midline. CARDIOVASCULAR: Regular rate and rhythm. RESPIRATORY: crackles, right lung flores. On 3L O2 via NC GASTROINTESTINAL: Abdomen soft, non-tender, nondistended. EXTREMITIES: No cyanosis, NEUROLOGICAL: no obvious focal deficit. Assessment/Plan Problem List: (1) Pneumonia ICD Codes: J18.9 - Pneumonia, unspecified organism Status: Acute Plan: Ok for DC from heme/onc stand point to continue follow up as out patient. Defer CTS thorascopic biopsy for now. PCR for aspergillosis ordered and pending. --unclear etiology --on VFEND --ID following. --needs lung biopsy, CTS consulted. (2) T-cell lymphoma ICD Codes: C85.90 - Non-Hodgkin lymphoma, unspecified, unspecified site Status: Chronic Plan: --concern for recurrence --in remission --received CHOP chemotherapy in clinic. Assessment 42y/o male with T-cell lymphoma admitted with worsening right lung infiltrate. Plan 1. oncology clear for discharge 2. continue Vfend. 3. follow up in clinic in 1-2 weeks Attending Statement The exam, history, and the medical decision-making described in the above note were completed with the assistance of the mid-level provider. I reviewed and agree with the findings presented. I attest that I had a [id number] encounter with the patient on the same day, and personally performed and documented my assessment and findings in the medical record. 42 yoM with T cell lymphoma currently receiving treatment with CHOP under the direction of Dr. Leigh. Currently on voriconazole. He will need close follow up in clinic by Dr. Leigh upon hospital discharge. Problem Qualifiers (1) Pneumonia: Qualified Codes: J18.9 - Pneumonia, unspecified organism Doris Liu Sep 14, 2017 08:41 Amanda Gallegos MD Sep 14, 2017 12:48
[2017-09-14] MEDS ORDERED: PHARMACY ORDERED LAB ONE (08:45)
[2017-09-14] MEDS: AZITHROMYCIN 250 MG TAB PO SCH (08:51)
[2017-09-14] MEDS: predniSONE 20 MG TAB PO SCH (08:52)
[2017-09-14] MEDS: DOCUSATE SODIUM 50 MG/SENNA 8.6 MG TAB PO SCH ×2 (08:52→20:07)
[2017-09-14] MEDS: PANTOPRAZOLE SODIUM 40 MG VIAL IV PUSH SCH (08:56)
[2017-09-14] MEDS: METHADONE HCL 10 MG TAB PO SCH (09:01)
[2017-09-14] MEDS ORDERED: METH10TA PO (11:18)
[2017-09-14] MEDS ORDERED: MSIR30 PO (11:18)
[2017-09-14] MEDS ORDERED: LORA-392 PO (11:18)
[2017-09-14] MEDS: RESP: ALBUTEROL 2.5 MG/IPRATROPIUM 0.5 MG NEB (PRN) NEB ×2 (11:33→21:22)
[2017-09-14] MEDS ORDERED: LACTULOSE SYRUP 20 GM/30 ML CUP PO ONE (12:30)
[2017-09-14] MEDS ORDERED: IOHEXOL 350 MG/ML 10 ML VIAL (for RAD DIAG) IVCONTRAST ONE (13:27)
[2017-09-14] MEDS: LORazepam 0.5 MG TAB PO PRN ×2 (13:31→20:09)
--- NOTE | 2017-09-14 13:31 | RADRPT ---
EXAM DATE/TIME: 09/14/2017 13:01 [facility] COMPARISON: CT THORAX W CONTRAST, September 09, 2017, 16:15. INDICATIONS : Pneumona,evaluate response to treatmen IV CONTRAST: 61 cc Omnipaque 350 (iohexol) IV RADIATION DOSE: 14.80 CTDIvol (mGy) MEDICAL HISTORY : Hypertension. t-cell lymphoma,asthma SURGICAL HISTORY : None. ENCOUNTER: Initial ACUITY: 1 week PAIN SCALE: 0/10 LOCATION: chest TECHNIQUE: Volumetric scanning of the chest was performed. Using automated exposure control and adjustment of t he mA and/or kV according to patient size, radiation dose was kept as low as reasonably achievable to obtain optimal diagnostic quality images. DICOM format image data is available electronically for review and comparison. Follow-up recommendations for detected pulmonary nodules are based at a minimum on nodule size and pa tient risk factors according to Fleischner Society Guidelines. FINDINGS: There is a moderate right effusion slightly increased in size. There is paramediastinal left upper lo be air space disease identified, not significantly changed. Minimal patchy infiltrate in the left low er lobe medially is new from previous. There is groundglass opacity, air bronchogram formation and de nse consolidation seen in the right lower lobe. Groundglass infiltrate has increased as well as more confluent consolidation in the right middle lobe. The osseous structures are intact. There is a small amount of fluid in the anterior mediastinum which is unchanged. No pathologically enlarged lymph nod es. CONCLUSION: There is increased consolidation on the right and slight increase in right effusion with mild mediast inal shift to the right consistent with mild volume loss. New left lower lobe infiltrate. Himanshu Cleaning MD on September 14, 2017 at 13:24 Board Certified Radiologist. This report was verified electronically.
--- NOTE | 2017-09-14 14:58 | HHI.FPPN ---
Subjective Remarks Patient seen and examined this am. Patient was upset this am regarding missed dose of tylenol pain medication he did not receive overnight. Overall patient reports pain is controlled. He continues to feel SOB is improving. (J Luis Parker MD, R1) Objective Vitals Vital Signs Date Time Temp Pulse Resp B/P (MAP) Pulse Ox O2 Delivery O2 Flow Rate FiO2 09/14/17 08:40 98.7 92 18 151/96 (114) 94 09/14/17 08:10 93 Nasal Cannula 2.00 09/14/17 04:00 95 09/14/17 04:00 98.3 102 22 131/97 (108) 92 09/14/17 00:00 82 09/14/17 00:00 98.3 95 22 143/91 (108) 93 09/13/17 20:00 Nasal Cannula 2.00 09/13/17 20:00 98.4 107 22 157/92 (113) 92 09/13/17 20:00 116 09/13/17 19:35 2.00 09/13/17 16:00 98 09/13/17 16:00 98.0 110 22 144/88 (106) 95 09/13/17 15:16 94 Nasal Cannula 2.00 I/O 09/13/17 09/13/17 09/13/17 09/14/17 09/14/17 09/14/17 07:00 15:00 23:00 07:00 15:00 23:00 Intake Total 1000 ml 240 ml Output Total 925 ml 400 ml Balance 75 ml -160 ml Intake Oral 240 ml IV Total 1000 ml Output Urine Total 925 ml 400 ml # Voids 1 (J Luis Parker MD, R1) Result Diagram: 09/14/17 0400 09/14/17 0400 Imaging Last Impressions Chest CT 09/14/17 0800 Signed Impressions: Service Date/Time: Thursday, September 14, 2017 13:01 - CONCLUSION: There is increased consolidation on the right and slight increase in right effusion with mild mediastinal shift to the right consistent with mild volume loss. New left lower lobe infiltrate. Himanshu Cleaning MD Chest X-Ray 09/11/17 0000 Signed Impressions: Service Date/Time: Monday, September 11, 2017 16:50 - CONCLUSION: 1. Interval worsening diffuse infiltrate in the right lung consistent with possible worsening pneumonia. Clinical correlation is recommended. 2. No pneumothorax. Anthony Brewer MD Objective Remarks Physical Exam GENERAL: This is a well-nourished, well-developed patient, siting in bed appears anxious. SKIN: No rashes, ecchymoses or lesions. Cool and dry. HEAD: Atraumatic. Normocephalic. EYES: Pupils equal round and reactive. Extraocular motions intact. No scleral icterus. No injection or drainage. ENT: Nose without bleeding, purulent drainage or septal hematoma. Airway patent. NECK: Trachea midline. No JVD or lymphadenopathy. Supple, nontender, no meningeal signs. CARDIOVASCULAR: Regular rate and rhythm without murmurs, gallops, or rubs. RESPIRATORY: coarse breath lung sounds, improved. GASTROINTESTINAL: Abdomen slightly distended, soft, non-tender. No hepato- splenomegaly, or palpable masses. No guarding. MUSCULOSKELETAL: Extremities without clubbing, cyanosis, or edema. No calf tenderness. +2 DP pulses BL NEUROLOGICAL: Awake and alert. Motor and sensory grossly within normal limits. Pressured speech. (J Luis Parker MD, R1) A/P Assessment and Plan Patient is a 42-year-old male with past medical history of T-cell lymphoma presented with: (J Luis Parker MD, R1) Attending Attestation Patient seen and examined. Case reviewed and discussed Agree with plan of care as discussed with me and documented in the resident note. (Azra Santos MD) Problem List: (1) Pneumonia ICD Codes: J18.9 - Pneumonia, unspecified organism Status: Acute Plan: Patient with recent hospitalization for pneumonia thought to be due to fungal etiology. Patient was discharged on voriconazole and switched to fluconazole by medical oncologist due to side effect of severe bone pain and medical oncology plan plan to extend treatment with fluconazole until patient received bone marrow transplant. On admission patient found to be septic with tachycardia (HR 118), tachypnea ( RR 26), leukocytosis (WBC 13) with infection source being the lungs. Chest x-ray: Increasing infiltrate and density in the right lung with apparent volume loss Fungal workup from prior hospitalization was negative. CT chest with contrast showed worsening right lung infiltrate characteristic of pneumonia. UA negative Legionella and pneumococcal urine antigen negative Blood cultures: No growth 5 days CMV DNA pcr negative Shortness of breath Shortness of breath has improved Albuterol inhaler at bedside Incentive spirometry Albuterol nebulizer every 4 hours for shortness of breath prednisone 40 mg QD Tylenol scheduled every 4 for pain IV morphine Q3h PRN for breakthrough pain CXR 09/11: Interval worsening of diffuse infiltrate in right lung consistent with possible worsening pneumonia. No pneumothorax Antibiotic history: Vancomycin 09/09-- 09/12 Azithromycin 09/09-- present Zosyn 09/09-- 09/12 Voriconazole po 200 mg 09/09-- present ID consulted, appreciate recommendations [employer] and cardiothoracic surgery consulted by Dr. Leigh, appreciate recommendations Patient right lung infiltration appears to be of infectious etiology. Plan to continue antibiotic and antifungal treatment and bronchoscopy procedure to be done by Dr. Aleman to identify inflammation and determine if open lung biopsy is necessary for micro and pathology evaluation. S/p bronchoscopy on 09/11. Medical plan discussed with patient and and they agreed and showed understanding Antibiotics regimen updated, see above Switch antifungal if pt found to have prolonged QT on EKG. EKG on 09/13- QTc 369 , WNL. Repeat CT chest 07/17: There is increased consolidation on the right and slight increase right left effusion with mild mediastinal shift to the right consistent with mild volume loss. Left lower lobe infiltrate. Discussed CT results with ID. Per ID, will hold off resuming broad pna coverage with antibiotics since pt is clinically stable. Consider resuming empiric antibiotic coverage if pt decompensates. Plan to to reconsult cardiothoracic surgery for evaluation of open lung biopsy for further micro and pathology work-up. Results of repeat CT chest discussed with patient and grandmother (at bedside). Medical plan to keep pt in hospital for further work up discussed with ID and heme/onc who agree pt should not be discharged today, awaiting pulm call back. BAL results: Fungal smear: No fungal elements Acid-fast stain: No acid-fast bacilli Bronchial culture: Light growth normal respiratory edgard Gram stain: no organisms seen Biopsy of right lower lobe of lung: Bronchial mucosa with focal reactive atypia of the basal layers. Fragment of tissue with focal markedly reactive interstitial fibrosis and markedly reactive bronchial epithelial cells. Viral inclusions are not identified. Follow-up: Sputum culture am labs (2) T-cell lymphoma ICD Codes: C85.90 - Non-Hodgkin lymphoma, unspecified, unspecified site Status: Chronic Plan: Diagnosed w/T cell lymphoma in April per biopsy results follows with Dr. Leigh. Oncology consulted, appreciate recommendations s/p CHOP chemotherapy Right lung infiltrate infection vs recurrence of T cell lymphoma see plan above (3) Knee pain ICD Codes: M25.569 - Pain in unspecified knee Status: Resolved Plan: On admission patient with complaint of bilateral knee pain, pain on right knee is worse. Knee pain minimal, stable and well controlled on pain medications. No issues with mobility. continue to monitor consider imaging of right knee (4) Constipation ICD Codes: K59.00 - Constipation, unspecified Status: Acute Plan: continue with advancement of constipation protocol lactulose x1 given today (5) Insomnia ICD Codes: G47.00 - Insomnia, unspecified Status: Acute Plan: Patient with c/o of inability to go to sleep due to anxiety c/w ativan 0.5mg PRN Q8h to aid with improved sleep and anxiety sxs (6) Nutrition, metabolism, and development symptoms ICD Codes: R63.8 - Other symptoms and signs concerning food and fluid intake Plan: Fluids: IVF at 140mls/hr, patient tolerating p.o. Electrolytes: Replete as needed Nutrition: Regular diet DVT prophylaxis: Lovenox 40 every 24h GI ppx: protonix 40mg IV (J Luis Parker MD, R1) Problem Qualifiers (1) Pneumonia: Qualified Codes: J18.9 - Pneumonia, unspecified organism (2) Knee pain: J Luis Parker MD, R1 Sep 14, 2017 14:58 Azra Santos MD Sep 16, 2017 11:34
[2017-09-14] MEDS ORDERED: PRED20 PO (16:39)
[2017-09-14] MEDS ORDERED: PRED10 PO (16:39)
[2017-09-14] MEDS ORDERED: LACT10SO PO (16:40)
[2017-09-14] MEDS: MORPHINE SULFATE 8 MG/ML INJ IV PUSH PRN (16:44)
--- NOTE | 2017-09-14 16:53 | HHI.PR ---
Subjective Remarks 42 YOWM with T-cell lymphoma, S/P CHOP therapy has Bilat infilt had bronch, BAL brushing and bx done No fever or chills Bronchial bx showes no malig, granuloma or viral inclusion body Cytology Neg, PCP and Fungal Neg CT Chest worsening lung infilt, involving almost entire rt lung Objective Vital Signs Vital Signs Date Time Temp Pulse Resp B/P (MAP) Pulse Ox O2 Delivery O2 Flow Rate FiO2 09/14/17 13:30 98.5 86 18 140/92 (108) 92 09/14/17 08:40 98.7 92 18 151/96 (114) 94 09/14/17 08:10 93 Nasal Cannula 2.00 09/14/17 04:00 95 09/14/17 04:00 98.3 102 22 131/97 (108) 92 09/14/17 00:00 82 09/14/17 00:00 98.3 95 22 143/91 (108) 93 09/13/17 20:00 Nasal Cannula 2.00 09/13/17 20:00 98.4 107 22 157/92 (113) 92 09/13/17 20:00 116 09/13/17 19:35 2.00 I/O 09/13/17 09/13/17 09/13/17 09/14/17 09/14/17 09/14/17 06:59 14:59 22:59 06:59 14:59 22:59 Intake Total 1000 ml 240 ml Output Total 925 ml 400 ml Balance 75 ml -160 ml Intake Oral 240 ml IV Total 1000 ml Output Urine Total 925 ml 400 ml # Voids 1 Result Diagram: 09/14/17 0400 09/14/17 0400 Objective Remarks GENERAL: WBWN WM,NAD SKIN: Warm and dry. HEAD: Normocephalic. EYES: No scleral icterus. No injection or drainage. NECK: Supple, trachea midline. No JVD or lymphadenopathy. CARDIOVASCULAR: Regular rate and rhythm without murmurs, gallops, or rubs. RESPIRATORY: Breath sounds equal bilaterally. No accessory muscle use. GASTROINTESTINAL: Abdomen soft, non-tender, nondistended. MUSCULOSKELETAL: No cyanosis, or edema. BACK: Nontender without obvious deformity. No CVA tenderness. A/P Assessment and Plan IMPRESSION: 1. Extensive right lung infiltrate and infiltrate in the lingula. Differential diagnosis includes fungal infection, opportunistic infection, bacterial pneumonia on top of that and also possibility of extension of lymphoma. 2. Bronchial asthma. 3. Small pleural effusion. PLAN: cont Abx per ID IV Solumedrol. Stable on RA Being considered for open lung bx DW pt and his grand mother Francis Aleman MD Sep 14, 2017 16:53
[2017-09-14] MEDS: ENOXAPARIN SODIUM 40 MG/0.4 ML SYRINGE SQ SCH (18:28)
[2017-09-14] MEDS: ACETAMINOPHEN 325 MG TAB PO PRN (18:40)
--- NOTE | 2017-09-14 18:41 | HHI.IDPN ---
Subjective Subjective Remarks X cover for Dr Dwyer chart reviewed Mr. 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 Patient is known to me from his last admission. He reports he underwent 6 sessions of chemotherapy and Radiation therapy so far. He went into remission and CT PET scan from 06/2017 was clear. He follows with of Oncology. He continued on CHOP chemotherapy. In early part of July patient was short of breath. He went to an urgent care in [place] and due to worsening Shortness of breath was admitted to hospital. CXR and CT chest during that admission was diffuse bilateral scattered infiltrates. He did not respond to IV antibiotics but when voriconazole was empirically added he responded well and was discharged home. He completed a 2 week course of voriconazole and improved significantly. His only complaint in the 2 week period was the joint pains. He saw in follow up. She switched him to oral Diflucan with a plan to keep him on it till after chemo and BMTs if determined as candidate. He reports that within 2-3 days of this change he felt worse significantly and now represents to hospital with worsening shortness of breath. Upon discussion with admitting team patient had difficulty completing sentences yesterday and would get winded but today looked much improved on regimen of IV antibiotics, atypical coverage with Azithro and Voriconazole that was empirically restarted yday. At the time of my evaluation, patient is on regular floor. At time of my visit patient was seen by Pulmonology and / residency team. He was sitting up in bed with knees folded appeared comfortable, able to complete sentences. He reported improvement in symptoms since admission and the admitting team echoed similarly. On 2 L NC O2 denies any change in his condition NO fever Antibiotics Azithro Voriconazole. Lines Line sites with no e.o infection Past Medical History Past Medical History T-cell lymphoblastic lymphoma. Asthma. History of herniated disk. recurrent pneumonia Past Surgical History Port placement, thoracentesis, CT-guided biopsy of mediastinal mass Bronchoscopy. Allergies: Coded Allergies: No Known Allergies (Unverified , 09/09/17) Objective . Vital Signs Date Time Temp Pulse Resp B/P (MAP) Pulse Ox O2 Delivery O2 Flow Rate FiO2 09/14/17 17:25 92 Nasal Cannula 2.00 09/14/17 16:44 98.3 91 18 140/95 (110) 93 09/14/17 13:30 98.5 86 18 140/92 (108) 92 09/14/17 08:40 98.7 92 18 151/96 (114) 94 09/14/17 08:10 93 Nasal Cannula 2.00 09/14/17 04:00 95 09/14/17 04:00 98.3 102 22 131/97 (108) 92 09/14/17 00:00 82 09/14/17 00:00 98.3 95 22 143/91 (108) 93 09/13/17 20:00 Nasal Cannula 2.00 09/13/17 20:00 98.4 107 22 157/92 (113) 92 09/13/17 20:00 116 09/13/17 19:35 2.00 . Laboratory Tests Test 09/13/17 05:30 09/14/17 04:00 White Blood Count 6.6 TH/MM3 6.8 TH/MM3 Red Blood Count 3.63 MIL/MM3 3.74 MIL/MM3 Hemoglobin 10.8 GM/DL 10.7 GM/DL Hematocrit 31.5 % 32.5 % Mean Corpuscular Volume 86.6 FL 86.7 FL Mean Corpuscular Hemoglobin 29.7 PG 28.6 PG Mean Corpuscular Hemoglobin Concent 34.3 % 33.0 % Red Cell Distribution Width 18.5 % 18.6 % Platelet Count 178 TH/MM3 175 TH/MM3 Mean Platelet Volume 7.2 FL 7.3 FL Neutrophils (%) (Auto) 93.8 % 87.8 % Lymphocytes (%) (Auto) 1.5 % 3.8 % Monocytes (%) (Auto) 4.4 % 7.9 % Eosinophils (%) (Auto) 0.0 % 0.2 % Basophils (%) (Auto) 0.3 % 0.3 % Neutrophils # (Auto) 6.2 TH/MM3 6.0 TH/MM3 Lymphocytes # (Auto) 0.1 TH/MM3 0.3 TH/MM3 Monocytes # (Auto) 0.3 TH/MM3 0.5 TH/MM3 Eosinophils # (Auto) 0.0 TH/MM3 0.0 TH/MM3 Basophils # (Auto) 0.0 TH/MM3 0.0 TH/MM3 CBC Comment DIFF FINAL AUTO DIFF Differential Comment FINAL DIFF MANUAL Differential Total Cells Counted 100 Neutrophils % (Manual) 84 % Band Neutrophils % 4 % Lymphocytes % 2 % Monocytes % 7 % Neutrophils # (Manual) 6.2 TH/MM3 Metamyelocytes 1 % Myelocytes 2 % Platelet Estimate NORMAL Platelet Morphology Comment NORMAL Tear Drop Cells 1+ Laboratory Tests Test 09/13/17 05:30 09/14/17 04:00 Blood Urea Nitrogen 14 MG/DL 16 MG/DL Creatinine 0.81 MG/DL 0.82 MG/DL Random Glucose 176 MG/DL 122 MG/DL Total Protein 6.0 GM/DL 5.8 GM/DL Albumin 2.6 GM/DL 2.7 GM/DL Calcium Level 8.9 MG/DL 8.8 MG/DL Alkaline Phosphatase 56 U/L 54 U/L Aspartate Amino Transf (AST/SGOT) 20 U/L 20 U/L Alanine Aminotransferase (ALT/SGPT) 76 U/L 68 U/L Total Bilirubin 0.2 MG/DL 0.2 MG/DL Sodium Level 141 MEQ/L 144 MEQ/L Potassium Level 4.2 MEQ/L 3.8 MEQ/L Chloride Level 104 MEQ/L 105 MEQ/L Carbon Dioxide Level 27.3 MEQ/L 29.1 MEQ/L Anion Gap 10 MEQ/L 10 MEQ/L Estimat Glomerular Filtration Rate 105 ML/MIN 103 ML/MIN Imaging Last Impressions Chest CT 09/14/17 0800 Signed Impressions: Service Date/Time: Thursday, September 14, 2017 13:01 - CONCLUSION: There is increased consolidation on the right and slight increase in right effusion with mild mediastinal shift to the right consistent with mild volume loss. New left lower lobe infiltrate. Himanshu Cleaning MD Chest X-Ray 09/11/17 0000 Signed Impressions: Service Date/Time: Monday, September 11, 2017 16:50 - CONCLUSION: 1. Interval worsening diffuse infiltrate in the right lung consistent with possible worsening pneumonia. Clinical correlation is recommended. 2. No pneumothorax. Anthony Brewer MD Physical Exam GENERAL: This is a well-nourished, well-developed patient, in no apparent distress. SKIN: No rashes, ecchymoses or lesions. Cool and dry. HEAD: Atraumatic. Normocephalic. No temporal or scalp tenderness. EYES: Pupils equal round and reactive. Extraocular motions intact. No scleral icterus. No injection or drainage. ENT: Nose without bleeding, purulent drainage or septal hematoma. Throat without erythema, tonsillar hypertrophy or exudate. Uvula midline. Airway patent. NECK: Trachea midline. Supple, nontender, no meningeal signs. No LN'jessy CARDIOVASCULAR: HS audible. No murmur. RESPIRATORY: Clear to auscultation. Breath sounds equal bilaterally. Scattered rhonchi. GASTROINTESTINAL: Abdomen soft, non-tender, nondistended. No Organomegaly. MUSCULOSKELETAL: Extremities without clubbing, cyanosis, or edema. No joint tenderness, effusion, or edema noted. No calf tenderness. Negative Homans sign bilaterally. NEUROLOGICAL: Awake and alert. Non focal exam Psych cooperative Port site ok. IV line sites with no e.o infection. Assessment & Plan Remarks Recurrent Pneumonia. DDX: Fungal ?? aspergillosis (prior h/o exposure to mold). Fungal cultures from last bronch negative so far but not final. Serologies may not be reliable as patient is immunecompromised. q - pt reports improvement on empiric voriconazole - apparently deals with the above problem since April thoracenthesis back then showed T cell lymphoma cells i n pleural effusion atypical mycobacteria Lymphoma infiltrates seem less likely as CT right side consolidation more s/ o pneumonia rather than lymphoma. Mediastinal LNpathy improved since last treated and seen in hospital. 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 CT findings from today and 09/09 were comparerd reviewed with radiologist: infiltrate has progressed. No cavities to suggest fungal infection Recs Continue Azithro change to oral. Continue Voriconazole 12 lead EKG showed QTc [address] surgery for diagnostic bx dw pt , @ b/s [facility] radiologist Camelia Blount MD Sep 14, 2017 18:41
[2017-09-15] VITALS (14 sets, daily range): BP systolic 116–145; BP diastolic 82–90; PULSE 80–105; RESP 18–20; TEMP 98.2–98.6; O2SAT 91–95
[2017-09-15] MEDS: ACETAMINOPHEN 325 MG TAB PO PRN ×3 (00:35→20:09)
[2017-09-15] MEDS: MORPHINE SULFATE 30 MG TAB PO PRN ×8 (00:36→22:42)
[2017-09-15] MEDS: LORazepam 0.5 MG TAB PO PRN ×4 (03:34→22:08)
[2017-09-15] MEDS: VORICONAZOLE 200 MG TAB PO SCH ×2 (06:23→16:10)
[2017-09-15 07:06] LABS: BASOPHIL % 0.1 % (0.0-2.0); EOSINOPHIL # 0.2 TH/MM3 (0-0.4); EOSINOPHIL % 3.8 % (0.0-4.0); HEMATOCRIT 34.4 % (39.0-51.0); HEMOGLOBIN 11.3 GM/DL (13.0-17.0); LYMPH % 6.5 % (9.0-44.0); LYMPHOCYTE # 0.3 TH/MM3 (1.0-4.8); MEAN CELL VOLUME 86.8 FL (80.0-100.0); MEAN CORPUSCULAR HEMOGLOBIN 28.7 PG (27.0-34.0); MEAN PLATELET VOLUME 7.3 FL (7.0-11.0); MONO % 8.1 % (0.0-8.0); MONOCYTE # 0.4 TH/MM3 (0-0.9); NEUT % 81.5 % (16.0-70.0); PLATELET COUNT 171 TH/MM3 (150-450); RED BLOOD COUNT 3.96 MIL/MM3 (4.50-5.90); RED CELL DISTRIBUTION WIDTH 18.8 % (11.6-17.2); WHITE BLOOD COUNT 4.9 TH/MM3 (4.0-11.0)
[2017-09-15 07:37] LABS: ALBUMIN 2.8 GM/DL (3.4-5.0); AST (GOT) 17 U/L (15-37); BICARBONATE 31.2 MEQ/L (21.0-32.0); BLOOD UREA NITROGEN 17 MG/DL (7-18); CALCIUM 9.2 MG/DL (8.5-10.1); CHLORIDE 102 MEQ/L (98-107); CREATININE 0.84 MG/DL (0.60-1.30); GLOMERULAR FILTRATION RATE 100 ML/MIN (>89); GLUCOSE,RANDOM 88 MG/DL (74-106); SODIUM (NA) 142 MEQ/L (136-145)
[2017-09-15 07:38] LABS: ALT (GPT) 64 U/L (12-78)
[2017-09-15 07:40] LABS: ALKALINE PHOSPHATASE 56 U/L (45-117); TOTAL BILIRUBIN ADULT 0.3 MG/DL (0.2-1.0); TOTAL PROTEIN 6.2 GM/DL (6.4-8.2)
[2017-09-15] MEDS ORDERED: PEG (High)/E-LYTE SOLN 4000 ML BTL PO ONE (08:15)
--- NOTE | 2017-09-15 08:22 | HHI.FPPN ---
Subjective Remarks No acute events overnight. Feels full and having difficulty with BM despite lactulose and vickey-colace. Breathing well. Denies CP, no SOB. No abdominal pain. (Yuniel Dwyer MD R2) Objective Vitals Vital Signs Date Time Temp Pulse Resp B/P (MAP) Pulse Ox O2 Delivery O2 Flow Rate FiO2 09/15/17 07:37 89 09/15/17 07:23 18 09/15/17 04:13 80 09/15/17 03:35 98.3 105 18 145/90 (108) 95 09/15/17 03:00 94 09/15/17 02:00 90 09/15/17 01:35 18 09/15/17 01:00 82 09/15/17 00:37 98.2 93 18 139/88 (105) 95 09/15/17 00:01 102 09/14/17 23:00 96 09/14/17 22:00 104 09/14/17 21:00 106 09/14/17 20:22 102 09/14/17 20:05 Nasal Cannula 2.00 09/14/17 20:05 98.7 90 20 141/87 (105) 95 09/14/17 18:47 105 09/14/17 17:25 92 Nasal Cannula 2.00 09/14/17 16:44 98.3 91 18 140/95 (110) 93 09/14/17 13:30 98.5 86 18 140/92 (108) 92 09/14/17 08:40 98.7 92 18 151/96 (114) 94 I/O 09/14/17 09/14/17 09/14/17 09/15/17 09/15/17 09/15/17 07:00 15:00 23:00 07:00 15:00 23:00 Intake Total 240 ml 1560 ml 1200 ml Output Total 400 ml 575 ml Balance -160 ml 1560 ml 625 ml Intake Oral 240 ml 1560 ml 1200 ml Output Urine Total 400 ml 575 ml # Voids 1 4 6 # Bowel Movements 2 (Yuniel Dwyer MD R2) Result Diagram: 09/15/17 0626 09/15/17 0626 Imaging Last Impressions Chest CT 09/14/17 0800 Signed Impressions: Service Date/Time: Thursday, September 14, 2017 13:01 - CONCLUSION: There is increased consolidation on the right and slight increase in right effusion with mild mediastinal shift to the right consistent with mild volume loss. New left lower lobe infiltrate. Himanshu Cleaning MD Chest X-Ray 09/11/17 0000 Signed Impressions: Service Date/Time: Monday, September 11, 2017 16:50 - CONCLUSION: 1. Interval worsening diffuse infiltrate in the right lung consistent with possible worsening pneumonia. Clinical correlation is recommended. 2. No pneumothorax. Anthony Brewer MD Objective Remarks GENERAL: This is a well-nourished, well-developed patient, siting in bed in [facility] CARDIOVASCULAR: Regular rate and rhythm without murmurs, gallops, or rubs. RESPIRATORY: Breath sounds diminished on R lower lobe. Otherwise normal breath sounds, no crackles or wheezes. GASTROINTESTINAL: Abdomen slightly distended, soft, non-tender. MUSCULOSKELETAL: Extremities without clubbing, cyanosis, or edema. No calf tenderness. NEUROLOGICAL: Awake and alert. Motor and sensory grossly within normal limits. Normal speech. Medications and IVs Last Impressions Chest CT 09/14/17 0800 Signed Impressions: Service Date/Time: Thursday, September 14, 2017 13:01 - CONCLUSION: There is increased consolidation on the right and slight increase in right effusion with mild mediastinal shift to the right consistent with mild volume loss. New left lower lobe infiltrate. Himanshu Cleaning MD Chest X-Ray 09/11/17 0000 Signed Impressions: Service Date/Time: Monday, September 11, 2017 16:50 - CONCLUSION: 1. Interval worsening diffuse infiltrate in the right lung consistent with possible worsening pneumonia. Clinical correlation is recommended. 2. No pneumothorax. Anthony Brewer MD (Yuniel Dwyer MD R2) A/P Assessment and Plan Patient is a 42-year-old male with past medical history of T-cell lymphoma presented with: (Yuniel Dwyer MD R2) Attending Attestation Patient seen and examined. Case reviewed and discussed Agree with plan of care as discussed with me and documented in the resident note. (Azra Santos MD) Problem List: (1) Pneumonia ICD Codes: J18.9 - Pneumonia, unspecified organism Status: Acute Plan: Clinically improved regarding SOB. However, repeat CT chest shows increased consolidation on the right and slight increase right left effusion with mild mediastinal shift to the right consistent with mild volume loss. Patient with recent hospitalization for pneumonia thought to be due to fungal etiology. Patient was discharged on voriconazole and switched to fluconazole by medical oncologist due to side effect of severe bone pain and medical oncology plan plan to extend treatment with fluconazole until patient received bone marrow transplant. On admission patient met sepsis criteria, now resolved Chest x-ray: Increasing infiltrate and density in the right lung with apparent volume loss Fungal workup from prior hospitalization was negative. CT chest with contrast showed worsening right lung infiltrate characteristic of pneumonia. UA negative Legionella and pneumococcal urine antigen negative Blood cultures: No growth 5 days CMV DNA pcr negative ID consulted, appreciate recommendations -Continue Azithromycin, voriconazole -hold off resuming broad pna coverage with antibiotics since pt is clinically stable. Consider resuming empiric antibiotic coverage if pt decompensates -Follow bronchial cultures -Recommending CT surgery perform open lung biopsy given radiographic worsening Pulmonology consulted, appreciate recs -S/p bronchoscopy 09/11 -F/u culture, cytology Oncology consulted, appreciate recs -Pain control with methadone, IV morphine PRN Medical plan discussed with patient and and they agreed and showed understanding Incentive spirometry Albuterol nebulizer every 4 hours for shortness of breath prednisone 40 mg QD BAL results: Fungal smear: No fungal elements Acid-fast stain: No acid-fast bacilli Bronchial culture: Light growth normal respiratory edgard Gram stain: no organisms seen Biopsy of right lower lobe of lung: Bronchial mucosa with focal reactive atypia of the basal layers. Fragment of tissue with focal markedly reactive interstitial fibrosis and markedly reactive bronchial epithelial cells. Viral inclusions are not identified. Antibiotic history Vancomycin 09/09-- 09/12 Azithromycin 09/09-- present Zosyn 09/09-- 09/12 Voriconazole po 200 mg 09/09-- present (2) T-cell lymphoma ICD Codes: C85.90 - Non-Hodgkin lymphoma, unspecified, unspecified site Status: Chronic Plan: Diagnosed w/T cell lymphoma in April per biopsy results; s/p CHOP chemotherapy outpatient, follows with Dr. Leigh. Right lung infiltrate infection vs recurrence of T cell lymphoma see plan above (3) Knee pain ICD Codes: M25.569 - Pain in unspecified knee Status: Resolved Plan: On admission patient with complaint of bilateral knee pain, pain on right knee is worse. Knee pain minimal, stable and well controlled on pain medications. No issues with mobility. continue to monitor consider imaging of right knee (4) Constipation ICD Codes: K59.00 - Constipation, unspecified Status: Acute Plan: 2 recorded BMs, but patient reports continued difficulty -Golytely liq at bedside, 8 oz Q20 min until BM (5) Insomnia ICD Codes: G47.00 - Insomnia, unspecified Status: Acute Plan: Patient with c/o of inability to go to sleep due to anxiety c/w ativan 0.5mg PRN Q8h to aid with improved sleep and anxiety sxs (6) Nutrition, metabolism, and development symptoms ICD Codes: R63.8 - Other symptoms and signs concerning food and fluid intake Plan: Fluids: PO only Electrolytes: Replete as needed Nutrition: Regular diet DVT prophylaxis: Lovenox 40 every 24h GI ppx: protonix 40mg IV Dispo: Pending lung biopsy and results (Yuniel Dwyer MD R2) Problem Qualifiers (1) Pneumonia: Qualified Codes: J18.9 - Pneumonia, unspecified organism (2) Knee pain: Yuniel Dwyer MD R2 Sep 15, 2017 08:22 Azra Santos MD Sep 16, 2017 10:52
[2017-09-15 08:23] LABS: BANDS 8 % (0-6); CORRECTED NUCLEATED RBC 2 /100 WBC (0-0); LYMPHOCYTES 11 % (9-44); METAMYELOCYTES 2 % (0-1); MONOCYTES 4 % (0-8); MYELOCYTES 3 % (0-0); NUCLEATED RED BLOOD CELL 2 (0-0); OVALOCYTES 1+ (NORMAL); POLYS (SEG NEUTROPHILS) 69 % (16-70)
[2017-09-15] MEDS: PANTOPRAZOLE SODIUM 40 MG VIAL IV PUSH SCH (09:02)
[2017-09-15] MEDS: AZITHROMYCIN 250 MG TAB PO SCH (09:02)
[2017-09-15] MEDS: DOCUSATE SODIUM 50 MG/SENNA 8.6 MG TAB PO SCH ×2 (09:02→20:08)
[2017-09-15] MEDS: predniSONE 20 MG TAB PO SCH (09:02)
[2017-09-15] MEDS: METHADONE HCL 10 MG TAB PO SCH (09:03)
[2017-09-15] MEDS: RESP: ALBUTEROL 2.5 MG/IPRATROPIUM 0.5 MG NEB (PRN) NEB (09:09)
--- NOTE | 2017-09-15 09:27 | PD.ONC.PN ---
Subjective Subjective Remarks Afebrile overnight. Patient resting in bed in nad. Continues to feel dyspneic. Objective Data Date Time Temp Pulse Resp B/P (MAP) Pulse Ox O2 Delivery O2 Flow Rate FiO2 09/15/17 09:11 92 Nasal Cannula 2.00 09/15/17 09:11 92 Nasal Cannula 2.00 09/15/17 08:59 98.5 105 18 132/85 (101) 91 09/15/17 07:37 89 09/15/17 07:23 18 09/15/17 04:13 80 09/15/17 03:35 98.3 105 18 145/90 (108) 95 09/15/17 03:00 94 09/15/17 02:00 90 09/15/17 01:35 18 09/15/17 01:00 82 09/15/17 00:37 98.2 93 18 139/88 (105) 95 09/15/17 00:01 102 09/14/17 23:00 96 09/14/17 22:00 104 09/14/17 21:00 106 09/14/17 20:22 102 09/14/17 20:05 Nasal Cannula 2.00 09/14/17 20:05 98.7 90 20 141/87 (105) 95 09/14/17 18:47 105 09/14/17 17:25 92 Nasal Cannula 2.00 09/14/17 16:44 98.3 91 18 140/95 (110) 93 09/14/17 13:30 98.5 86 18 140/92 (108) 92 09/15/17 09/15/17 09/15/17 07:00 15:00 23:00 Intake Total 1200 ml Output Total 575 ml Balance 625 ml Result Diagram: 09/15/17 0609/15/17 06 Laboratory Results Laboratory Tests Test 09/15/17 06:26 White Blood Count 4.9 TH/MM3 Red Blood Count 3.96 MIL/MM3 Hemoglobin 11.3 GM/DL Hematocrit 34.4 % Mean Corpuscular Volume 86.8 FL Mean Corpuscular Hemoglobin 28.7 PG Mean Corpuscular Hemoglobin Concent 33.0 % Red Cell Distribution Width 18.8 % Platelet Count 171 TH/MM3 Mean Platelet Volume 7.3 FL Neutrophils (%) (Auto) 81.5 % Lymphocytes (%) (Auto) 6.5 % Monocytes (%) (Auto) 8.1 % Eosinophils (%) (Auto) 3.8 % Basophils (%) (Auto) 0.1 % Neutrophils # (Auto) 4.0 TH/MM3 Lymphocytes # (Auto) 0.3 TH/MM3 Monocytes # (Auto) 0.4 TH/MM3 Eosinophils # (Auto) 0.2 TH/MM3 Basophils # (Auto) 0.0 TH/MM3 CBC Comment AUTO DIFF Differential Total Cells Counted 100 Neutrophils % (Manual) 69 % Band Neutrophils % 8 % Lymphocytes % 11 % Monocytes % 4 % Eosinophils % 3 % Neutrophils # (Manual) 4.0 TH/MM3 Metamyelocytes 2 % Myelocytes 3 % Nucleated Red Blood Cells 2 /100 WBC Differential Comment FINAL DIFF MANUAL Platelet Estimate NORMAL Platelet Morphology Comment NORMAL Ovalocytes 1+ Blood Urea Nitrogen 17 MG/DL Creatinine 0.84 MG/DL Random Glucose 88 MG/DL Total Protein 6.2 GM/DL Albumin 2.8 GM/DL Calcium Level 9.2 MG/DL Alkaline Phosphatase 56 U/L Aspartate Amino Transf (AST/SGOT) 17 U/L Alanine Aminotransferase (ALT/SGPT) 64 U/L Total Bilirubin 0.3 MG/DL Sodium Level 142 MEQ/L Potassium Level 3.7 MEQ/L Chloride Level 102 MEQ/L Carbon Dioxide Level 31.2 MEQ/L Anion Gap 9 MEQ/L Estimat Glomerular Filtration Rate 100 ML/MIN Administered Medications Medications (Trade) Dose Ordered Sig/Suzan Route PRN Reason Start Time Stop Time Status Last Admin Dose Admin Sodium Chloride (NS Flush) 2 ml UNSCH PRN IVF FLUSH AFTER USING IV ACCESS 09/09/17 10:15 09/13/17 08:25 Enoxaparin Sodium (Lovenox Inj) 40 mg Q24H SQ 09/09/17 16:00 Future hold 09/14/17 18:28 Senna/Docusate Sodium (Naa-Colace) 1 tab BID PO 09/09/17 21:00 09/15/17 09:02 Magnesium Hydroxide (Milk Of Magnesia Liq) 30 ml Q12H PRN PO Mild constipation 09/09/17 15:15 09/12/17 09:52 Lactulose (Lactulose Liq) 30 ml DAILY PRN PO SEVERE CONSITIPATION 09/09/17 15:15 09/13/17 08:24 Voriconazole (Vfend) 200 mg Q12H PO 09/12/17 18:00 09/15/17 06:23 Pantoprazole Sodium (Protonix Inj) 40 mg Q24H IV PUSH 09/12/17 08:30 09/15/17 09:02 Al Hydrox/Mg Hydrox/Simethicone (Mag-Al Plus Susp Liq) 30 ml Q6H PRN PO DYSPEPSIA OR HEARTBURN 09/12/17 08:30 09/12/17 09:52 Lorazepam (Ativan) 0.5 mg Q6H PRN PO anxiety 09/12/17 12:45 09/15/17 09:02 Azithromycin (Zithromax) 500 mg DAILY PO 09/13/17 09:00 09/15/17 09:02 Prednisone (Deltasone) 40 mg DAILY PO 09/14/17 09:00 09/15/17 09:02 Morphine Sulfate (Msir) 30 mg Q3HR PRN PO PAIN1-10 09/13/17 13:45 09/15/17 09:07 Methadone HCl (Dolophine) 2.5 mg DAILY PO 09/13/17 19:15 09/15/17 09:03 Morphine Sulfate (Morphine Inj) 5 mg Q4H PRN IV PUSH Breakthrough 09/13/17 19:15 09/14/17 16:44 Albuterol/ Ipratropium (Duoneb Neb) 1 ampule Q4HR NEB PRN NEB cough 09/14/17 11:30 09/15/17 09:09 Acetaminophen (Tylenol) 325 mg Q4H PRN PO PAIN 1-10 09/14/17 12:30 09/15/17 00:35 Objective Remarks GENERAL: Middle aged male, upright in bed in nad. On O2 via NC SKIN: Warm and dry. HEAD: Normocephalic. EYES: No injection or drainage. NECK: Supple, trachea midline. CARDIOVASCULAR: Regular rate and rhythm. RESPIRATORY: right lung flores diminished at base, scattered rales. On 2L O2 via NC GASTROINTESTINAL: Abdomen soft, non-tender, nondistended. EXTREMITIES: No cyanosis NEUROLOGICAL: no obvious focal deficit. Assessment/Plan Problem List: (1) Pneumonia ICD Codes: J18.9 - Pneumonia, unspecified organism Status: Acute Plan: --repeat CT chest shows worsening PNA and new left sided infiltrate with small pleural effusion. --unclear etiology --on VFEND --ID following. --needs lung biopsy, CTS consulted. (2) T-cell lymphoma ICD Codes: C85.90 - Non-Hodgkin lymphoma, unspecified, unspecified site Status: Chronic Plan: --concern for recurrence --in remission --received CHOP chemotherapy in clinic. Assessment 42y/o male with T-cell lymphoma admitted with worsening right lung infiltrate. Plan 1. needs CTS consult and biopsy 2. continue antibiotics per ID 3. continue supportive care. Attending Statement The exam, history, and the medical decision-making described in the above note were completed with the assistance of the mid-level provider. I reviewed and agree with the findings presented. I attest that I had a [id number] encounter with the patient on the same day, and personally performed and documented my assessment and findings in the medical record. 1. T cell lymphoma: currently being treated with CHOP under the direction of Dr. Leigh 2. Pneumonia, worsening lung infiltrate: on broad spectrum antibiotic therapy. Pulmonary, ID teams following. Pending CT surgery evaluation for biopsy. Problem Qualifiers (1) Pneumonia: Qualified Codes: J18.9 - Pneumonia, unspecified organism Doris Liu Sep 15, 2017 09:27 Amanda Gallegos MD Sep 15, 2017 11:05
[2017-09-15] MEDS: ENOXAPARIN SODIUM 40 MG/0.4 ML SYRINGE SQ SCH (15:51)
--- NOTE | 2017-09-15 16:18 | HHI.PR ---
Subjective Remarks 42 YOWM with T-cell lymphoma, S/P CHOP therapy has Bilat infilt had bronch, BAL brushing and bx done No fever or chills Bronchial bx showes no malig, granuloma or viral inclusion body Cytology Neg, PCP and Fungal Neg CT Chest worsening lung infilt, involving almost entire rt lung Feels tired, On MS and Methadone. Objective Vital Signs Vital Signs Date Time Temp Pulse Resp B/P (MAP) Pulse Ox O2 Delivery O2 Flow Rate FiO2 09/15/17 16:11 98.6 104 18 116/84 (95) 93 09/15/17 12:32 98.5 104 20 129/82 (98) 92 09/15/17 09:11 92 Nasal Cannula 2.00 09/15/17 09:11 92 Nasal Cannula 2.00 09/15/17 08:59 98.5 105 18 132/85 (101) 91 09/15/17 07:37 89 09/15/17 07:23 18 09/15/17 04:13 80 09/15/17 03:35 98.3 105 18 145/90 (108) 95 09/15/17 03:00 94 09/15/17 02:00 90 09/15/17 01:35 18 09/15/17 01:00 82 09/15/17 00:37 98.2 93 18 139/88 (105) 95 09/15/17 00:01 102 09/14/17 23:00 96 09/14/17 22:00 104 09/14/17 21:00 106 09/14/17 20:22 102 09/14/17 20:05 Nasal Cannula 2.00 09/14/17 20:05 98.7 90 20 141/87 (105) 95 09/14/17 18:47 105 09/14/17 17:25 92 Nasal Cannula 2.00 09/14/17 16:44 98.3 91 18 140/95 (110) 93 I/O 09/14/17 09/14/17 09/14/17 09/15/17 09/15/17 09/15/17 07:00 15:00 23:00 07:00 15:00 23:00 Intake Total 240 ml 1560 ml 1200 ml 1000 ml Output Total 400 ml 575 ml Balance -160 ml 1560 ml 625 ml 1000 ml Intake Oral 240 ml 1560 ml 1200 ml 1000 ml Output Urine Total 400 ml 575 ml # Voids 1 4 6 5 # Bowel Movements 2 Result Diagram: 09/15/1762509/15/17625 Objective Remarks GENERAL: WBWN WM,NAD SKIN: Warm and dry. HEAD: Normocephalic. EYES: No scleral icterus. No injection or drainage. NECK: Supple, trachea midline. No JVD or lymphadenopathy. CARDIOVASCULAR: Regular rate and rhythm without murmurs, gallops, or rubs. RESPIRATORY: Breath sounds equal bilaterally. No accessory muscle use. GASTROINTESTINAL: Abdomen soft, non-tender, nondistended. MUSCULOSKELETAL: No cyanosis, or edema. BACK: Nontender without obvious deformity. No CVA tenderness. A/P Assessment and Plan IMPRESSION: 1. Extensive right lung infiltrate and infiltrate in the lingula. Differential diagnosis includes fungal infection, opportunistic infection, bacterial pneumonia on top of that and also possibility of extension of lymphoma. 2. Bronchial asthma. 3. Small pleural effusion. PLAN: cont Abx per ID IV Solumedrol. Stable on RA Being considered for open lung bx TIM pt and his Francis Aleman MD Sep 15, 2017 16:18
[2017-09-16] MEDS: MORPHINE SULFATE 30 MG TAB PO PRN ×5 (03:21→20:32)
[2017-09-16 03:25] VITALS: BP 146/93; PULSE 88; RESP 20; TEMP 98.8; O2SAT 96
[2017-09-16] MEDS: RESP: ALBUTEROL 2.5 MG/IPRATROPIUM 0.5 MG NEB (PRN) NEB (03:59)
[2017-09-16] MEDS: VORICONAZOLE 200 MG TAB PO SCH ×2 (04:19→16:50)
[2017-09-16] MEDS: LORazepam 0.5 MG TAB PO PRN ×2 (04:19→22:34)
[2017-09-16 07:17] LABS: AUTOMATED NEUTROPHIL # 5.8 TH/MM3 (1.8-7.7); BASOPHIL % 0.1 % (0.0-2.0); EOSINOPHIL # 0.2 TH/MM3 (0-0.4); HEMATOCRIT 34.4 % (39.0-51.0); HEMOGLOBIN 11.3 GM/DL (13.0-17.0); LYMPH % 4.6 % (9.0-44.0); LYMPHOCYTE # 0.3 TH/MM3 (1.0-4.8); MEAN CELL VOLUME 86.7 FL (80.0-100.0); MEAN CORPUSCULAR HEMOGLOBIN 28.5 PG (27.0-34.0); MEAN CORPUSCULAR HGB CONC 32.8 % (32.0-36.0); MEAN PLATELET VOLUME 7.2 FL (7.0-11.0); MONO % 6.9 % (0.0-8.0); MONOCYTE # 0.5 TH/MM3 (0-0.9); NEUT % 85.4 % (16.0-70.0); PLATELET COUNT 166 TH/MM3 (150-450); RED BLOOD COUNT 3.97 MIL/MM3 (4.50-5.90); RED CELL DISTRIBUTION WIDTH 18.4 % (11.6-17.2); WHITE BLOOD COUNT 6.8 TH/MM3 (4.0-11.0)
[2017-09-16] MEDS: METHADONE HCL 10 MG TAB PO SCH (09:00)
[2017-09-16] MEDS: PANTOPRAZOLE SODIUM 40 MG VIAL IV PUSH SCH (09:36)
[2017-09-16] MEDS: predniSONE 20 MG TAB PO SCH (09:36)
--- NOTE | 2017-09-16 09:36 | PD.CAR.PN ---
CVT Progress Note Subjective/Hospital Course: Bronch nonconclusive will undergo , right video assisted thoracoscopy , open lung biopsy today Objective: GENERAL: SKIN: Warm and dry. HEAD: Normocephalic. EYES: No scleral icterus. No injection or drainage. NECK: Supple, trachea midline. No JVD or lymphadenopathy. CARDIOVASCULAR: Regular rate and rhythm without murmurs, gallops, or rubs. RESPIRATORY: Breath sounds equal bilaterally. No accessory muscle use coarse bilateral breath sounds R>L. GASTROINTESTINAL: Abdomen soft, non-tender, nondistended. MUSCULOSKELETAL: No cyanosis, or edema. BACK: Nontender without obvious deformity. No CVA tenderness. Vital Signs Date Time Temp Pulse Resp B/P (MAP) Pulse Ox O2 Delivery O2 Flow Rate FiO2 09/16/17 04:21 16 09/16/17 04:01 Nasal Cannula 2.00 09/16/17 03:25 98.8 88 20 146/93 (110) 96 09/15/17 23:18 98.6 85 18 135/82 (99) 95 09/15/17 20:42 16 09/15/17 20:10 Nasal Cannula 2.00 09/15/17 20:09 98.5 95 18 131/87 (102) 95 09/15/17 16:11 98.6 104 18 116/84 (95) 93 09/15/17 12:32 98.5 104 20 129/82 (98) 92 Labs: Laboratory Tests Test 09/16/17 06:50 White Blood Count 6.8 TH/MM3 (4.0-11.0) Red Blood Count 3.97 MIL/MM3 (4.50-5.90) Hemoglobin 11.3 GM/DL (13.0-17.0) Hematocrit 34.4 % (39.0-51.0) Mean Corpuscular Volume 86.7 FL (80.0-100.0) Mean Corpuscular Hemoglobin 28.5 PG (27.0-34.0) Mean Corpuscular Hemoglobin Concent 32.8 % (32.0-36.0) Red Cell Distribution Width 18.4 % (11.6-17.2) Platelet Count 166 TH/MM3 (150-450) Mean Platelet Volume 7.2 FL (7.0-11.0) Neutrophils (%) (Auto) 85.4 % (16.0-70.0) Lymphocytes (%) (Auto) 4.6 % (9.0-44.0) Monocytes (%) (Auto) 6.9 % (0.0-8.0) Eosinophils (%) (Auto) 3.0 % (0.0-4.0) Basophils (%) (Auto) 0.1 % (0.0-2.0) Neutrophils # (Auto) 5.8 TH/MM3 (1.8-7.7) Lymphocytes # (Auto) 0.3 TH/MM3 (1.0-4.8) Monocytes # (Auto) 0.5 TH/MM3 (0-0.9) Eosinophils # (Auto) 0.2 TH/MM3 (0-0.4) Basophils # (Auto) 0.0 TH/MM3 (0-0.2) CBC Comment DIFF FINAL Differential Comment Result Diagram: 09/16/17 0650 09/15/17 0626 Rin Farah Sep 16, 2017 09:36
[2017-09-16 09:45] VITALS: BP 145/92; PULSE 88; RESP 19; TEMP 97.9; O2SAT 91
[2017-09-16] MEDS ORDERED: SODIUM CHLORIDE 0.9% FLUSH 10 ML FLUSH IV FLUSH PRN (09:45)
--- NOTE | 2017-09-16 09:51 | PD.ONC.PN ---
Subjective Subjective Remarks Afebrile overnight. patient resting in bed. Wants to know when he is going to the OR to have his biopsy. He is tired and sick of being in the hospital. Objective Data Date Time Temp Pulse Resp B/P (MAP) Pulse Ox O2 Delivery O2 Flow Rate FiO2 09/16/17 04:21 16 09/16/17 04:01 Nasal Cannula 2.00 09/16/17 03:25 98.8 88 20 146/93 (110) 96 09/15/17 23:18 98.6 85 18 135/82 (99) 95 09/15/17 20:42 16 09/15/17 20:10 Nasal Cannula 2.00 09/15/17 20:09 98.5 95 18 131/87 (102) 95 09/15/17 16:11 98.6 104 18 116/84 (95) 93 09/15/17 12:32 98.5 104 20 129/82 (98) 92 09/16/17 09/16/17 09/16/17 07:00 15:00 23:00 Intake Total 480 ml Balance 480 ml Result Diagram: 09/16/17 0650 09/15/17 0626 Laboratory Results Laboratory Tests Test 09/16/17 06:50 White Blood Count 6.8 TH/MM3 Red Blood Count 3.97 MIL/MM3 Hemoglobin 11.3 GM/DL Hematocrit 34.4 % Mean Corpuscular Volume 86.7 FL Mean Corpuscular Hemoglobin 28.5 PG Mean Corpuscular Hemoglobin Concent 32.8 % Red Cell Distribution Width 18.4 % Platelet Count 166 TH/MM3 Mean Platelet Volume 7.2 FL Neutrophils (%) (Auto) 85.4 % Lymphocytes (%) (Auto) 4.6 % Monocytes (%) (Auto) 6.9 % Eosinophils (%) (Auto) 3.0 % Basophils (%) (Auto) 0.1 % Neutrophils # (Auto) 5.8 TH/MM3 Lymphocytes # (Auto) 0.3 TH/MM3 Monocytes # (Auto) 0.5 TH/MM3 Eosinophils # (Auto) 0.2 TH/MM3 Basophils # (Auto) 0.0 TH/MM3 CBC Comment DIFF FINAL Differential Comment Administered Medications Medications (Trade) Dose Ordered Sig/Suzan Route PRN Reason Start Time Stop Time Status Last Admin Dose Admin Sodium Chloride (NS Flush) 2 ml UNSCH PRN IVF FLUSH AFTER USING IV ACCESS 09/09/17 10:15 09/13/17 08:25 Enoxaparin Sodium (Lovenox Inj) 40 mg Q24H SQ 09/09/17 16:00 Future Hold 09/15/17 15:51 Senna/Docusate Sodium (Naa-Colace) 1 tab BID PO 09/09/17 21:00 09/15/17 20:08 Magnesium Hydroxide (Milk Of Magnesia Liq) 30 ml Q12H PRN PO Mild constipation 09/09/17 15:15 09/12/17 09:52 Lactulose (Lactulose Liq) 30 ml DAILY PRN PO SEVERE CONSITIPATION 09/09/17 15:15 09/13/17 08:24 Heparin Sodium (Porcine) (Heparin Central Flush) 500 units UNSCH IV FLUSH 09/09/17 15:30 09/16/17 04:33 Voriconazole (Vfend) 200 mg Q12H PO 09/12/17 18:00 09/16/17 04:19 Pantoprazole Sodium (Protonix Inj) 40 mg Q24H IV PUSH 09/12/17 08:30 09/16/17 09:36 Al Hydrox/Mg Hydrox/Simethicone (Mag-Al Plus Susp Liq) 30 ml Q6H PRN PO DYSPEPSIA OR HEARTBURN 09/12/17 08:30 09/12/17 09:52 Lorazepam (Ativan) 0.5 mg Q6H PRN PO anxiety 09/12/17 12:45 09/16/17 04:19 Azithromycin (Zithromax) 500 mg DAILY PO 09/13/17 09:00 09/15/17 09:02 Prednisone (Deltasone) 40 mg DAILY PO 09/14/17 09:00 09/16/17 09:36 Morphine Sulfate (Msir) 30 mg Q3HR PRN PO PAIN1-10 09/13/17 13:45 09/16/17 09:36 Methadone HCl (Dolophine) 2.5 mg DAILY PO 09/13/17 19:15 09/15/17 09:03 Morphine Sulfate (Morphine Inj) 5 mg Q4H PRN IV PUSH Breakthrough 09/13/17 19:15 09/14/17 16:44 Albuterol/ Ipratropium (Duoneb Neb) 1 ampule Q4HR NEB PRN NEB cough 09/14/17 11:30 09/16/17 03:59 Acetaminophen (Tylenol) 325 mg Q4H PRN PO PAIN 1-10 09/14/17 12:30 09/15/17 20:09 Objective Remarks GENERAL: Middle aged male, sitting up in bed in nad. SKIN: Warm and dry. HEAD: Normocephalic. EYES: No injection or drainage. NECK: Supple, trachea midline. CARDIOVASCULAR: Regular rate and rhythm. RESPIRATORY: On 2L O2 via NC. diminished right lung flores. scattered rales. GASTROINTESTINAL: Abdomen soft, non-tender, nondistended. EXTREMITIES: No cyanosis NEUROLOGICAL: no obvious focal deficit. Assessment/Plan Problem List: (1) Pneumonia ICD Codes: J18.9 - Pneumonia, unspecified organism Status: Acute Plan: --repeat CT chest shows worsening PNA and new left sided infiltrate with small pleural effusion. --unclear etiology --on VFEND --ID following. --CTS following, planning on VATS with right lung biopsy today, 09/16 (2) T-cell lymphoma ICD Codes: C85.90 - Non-Hodgkin lymphoma, unspecified, unspecified site Status: Chronic Plan: --concern for recurrence --in remission --received CHOP chemotherapy in clinic. Assessment 42y/o male with T-cell lymphoma admitted with worsening right lung infiltrate. Plan 1. VATS with right lung biopsy today 2. continue antibiotics. Attending Statement The exam, history, and the medical decision-making described in the above note were completed with the assistance of the mid-level provider. I reviewed and agree with the findings presented. I attest that I had a [id number] encounter with the patient on the same day, and personally performed and documented my assessment and findings in the medical record. Events over the weekend noted. Acute worsening, repeat CT showed worse disease. s/p VATS wedge bx, cultures by CTS. Chest tube in place draining serosangenous fluid. Did not tolerate methadone 2.5mg. Cont short acting pain medication. Follow pathology. Problem Qualifiers (1) Pneumonia: Qualified Codes: J18.9 - Pneumonia, unspecified organism Doris Liu Sep 16, 2017 09:51 Aysha Leigh MD Sep 16, 2017 19:08
[2017-09-16] MEDS ORDERED: ceFAZolin 2 GM PREMIX 50 ML IV SCH (10:00)
[2017-09-16] MEDS ORDERED: ALTEPLASE RECOMBINANT 2 MG VIAL INTRACATH PRN (10:00)
[2017-09-16] MEDS ORDERED: CEFAZOLIN INJ 500 MG in SODIUM CHLORIDE 0.9% IRR BTL 500 ML IRRIGATION SCH (10:00)
[2017-09-16 10:38] LABS: PROTHROMBIN TIME - PATIENT 9.8 SEC (9.8-11.6)
[2017-09-16] MEDS ORDERED: ONDANSETRON HCL 4 MG/2 ML VIAL IV ONE (12:00)
[2017-09-16] MEDS ORDERED: GLYCOPYRROLATE 1 MG/5 ML SYRINGE IV PUSH ONE (12:00)
[2017-09-16] MEDS ORDERED: ROCURONIUM INJ 50 MG/5 ML SYRINGE IV PUSH ONE (12:00)
[2017-09-16] MEDS ORDERED: SODIUM CHLORID 0.9% 500 ML INJ 500 ML IV ONE (12:00)
[2017-09-16] MEDS ORDERED: NORMOSOL R INJ 1,000 ML IV ONE (12:00)
[2017-09-16] MEDS ORDERED: LIDOCAINE HCL 1% PF 5 ML SYRINGE OTHER ONE (12:00)
[2017-09-16] MEDS ORDERED: PROPOFOL 200 MG/20 ML AMP IV ONE (12:00)
[2017-09-16] MEDS ORDERED: LACTATED RINGER'S 1000 ML INJ 1,000 ML IV ONE (12:00)
[2017-09-16] MEDS ORDERED: NEOSTIGMINE 5 MG/5 ML SYRINGE IV PUSH ONE (12:00)
[2017-09-16 12:08] VITALS: BP 119/91; PULSE 92; RESP 18; TEMP 97.9; O2SAT 97
--- NOTE | 2017-09-16 12:23 | HHI.FPPN ---
Subjective Remarks No acute events overnight. Feels well this morning, denies CP/SOB. NPO since midnight in preparation for surgery today. No N/V or abdominal pain. Objective Vitals Vital Signs Date Time Temp Pulse Resp B/P (MAP) Pulse Ox O2 Delivery O2 Flow Rate FiO2 09/16/17 12:08 97.9 92 18 119/91 (100) 97 09/16/17 10:06 91 Nasal Cannula 2.00 09/16/17 09:45 97.9 88 19 145/92 (109) 91 09/16/17 04:21 16 09/16/17 04:01 Nasal Cannula 2.00 09/16/17 03:25 98.8 88 20 146/93 (110) 96 09/15/17 23:18 98.6 85 18 135/82 (99) 95 09/15/17 20:42 16 09/15/17 20:10 Nasal Cannula 2.00 09/15/17 20:09 98.5 95 18 131/87 (102) 95 09/15/17 16:11 98.6 104 18 116/84 (95) 93 09/15/17 12:32 98.5 104 20 129/82 (98) 92 I/O 09/15/17 09/15/17 09/15/17 09/16/17 09/16/17 09/16/17 07:00 15:00 23:00 07:00 15:00 23:00 Intake Total 1200 ml 1000 ml 480 ml Output Total 575 ml Balance 625 ml 1000 ml 480 ml Intake Oral 1200 ml 1000 ml 480 ml Output Urine Total 575 ml # Voids 6 5 7 # Bowel Movements 2 Result Diagram: 09/16/17 0650 09/15/17 0626 Imaging Last Impressions Chest CT 09/14/17 0800 Signed Impressions: Service Date/Time: Thursday, September 14, 2017 13:01 - CONCLUSION: There is increased consolidation on the right and slight increase in right effusion with mild mediastinal shift to the right consistent with mild volume loss. New left lower lobe infiltrate. Himanshu Cleaning MD Chest X-Ray 09/11/17 0000 Signed Impressions: Service Date/Time: Monday, September 11, 2017 16:50 - CONCLUSION: 1. Interval worsening diffuse infiltrate in the right lung consistent with possible worsening pneumonia. Clinical correlation is recommended. 2. No pneumothorax. Anthony Brewer MD Objective Remarks GENERAL: This is a well-nourished, well-developed patient, lying in bed in NAD CARDIOVASCULAR: Regular rate and rhythm without murmurs, gallops, or rubs. RESPIRATORY: Breath sounds diminished on R lower lobe. Otherwise normal breath sounds, no crackles or wheezes. GASTROINTESTINAL: Abdomen slightly distended, soft, non-tender. MUSCULOSKELETAL: Extremities without clubbing, cyanosis, or edema. No calf tenderness. NEUROLOGICAL: Awake and alert. Motor and sensory grossly within normal limits. Normal speech. Medications and IVs Current Medications Medications (Trade) Dose Ordered Sig/Suzan Route Start Time Stop Time Status Last Admin (NS Flush) 2 ml UNSCH PRN IVF 09/09/17 10:15 09/13/17 08:25 (Lovenox Inj) 40 mg Q24H SQ 09/09/17 16:00 Future Hold 09/15/17 15:51 (Narcan Inj) 0.4 mg UNSCH PRN IV PUSH 09/09/17 15:15 (Naa-Colace) 1 tab BID PO 09/09/17 21:00 09/15/17 20:08 (Milk Of Magnesia Liq) 30 ml Q12H PRN PO 09/09/17 15:15 09/12/17 09:52 (Senokot) 17.2 mg Q12H PRN PO 09/09/17 15:15 (Dulcolax Supp) 10 mg DAILY PRN RECTAL 09/09/17 15:15 (Lactulose Liq) 30 ml DAILY PRN PO 09/09/17 15:15 09/13/17 08:24 (Heparin Central Flush) 500 units UNSCH IV FLUSH 09/09/17 15:30 09/16/17 04:33 (Proair Hfa Inh) 2 puff Q6H PRN INH 09/09/17 16:30 (Vfend) 200 mg Q12H PO 09/12/17 18:00 09/16/17 04:19 (Protonix Inj) 40 mg Q24H IV PUSH 09/12/17 08:30 09/16/17 09:36 (Mag-Al Plus Susp Liq) 30 ml Q6H PRN PO 09/12/17 08:30 09/12/17 09:52 (Tums Chew) 500 mg Q6H PRN CHEW 09/12/17 08:30 (Ativan) 0.5 mg Q6H PRN PO 09/12/17 12:45 09/16/17 04:19 (Zithromax) 500 mg DAILY PO 09/13/17 09:00 09/15/17 09:02 (Deltasone) 40 mg DAILY PO 09/14/17 09:00 09/16/17 09:36 (Msir) 30 mg Q3HR PRN PO 09/13/17 13:45 09/16/17 09:36 (Dolophine) 2.5 mg DAILY PO 09/13/17 19:15 09/15/17 09:03 (Morphine Inj) 5 mg Q4H PRN IV PUSH 09/13/17 19:15 09/14/17 16:44 (Pill Splitter) 1 ea UNSCH PRN OTHER 09/13/17 19:15 (Duoneb Neb) 1 ampule Q4HR NEB PRN NEB 09/14/17 11:30 09/16/17 03:59 (Tylenol) 325 mg Q4H PRN PO 09/14/17 12:30 09/15/17 20:09 (Cathflo Activase Inj) 2 mg Q2H PRN INTRACATH 09/16/17 10:00 (NS Flush) 2 ml BID IV FLUSH 09/16/17 21:00 (NS Flush) 2 ml UNSCH PRN IV FLUSH 09/16/17 09:45 Cefazolin Sodium 500 mg/Sodium Chloride 505 ml @ 0 mls/hr MECHANICAL ENGINEERING TECHNICIAN IRRIGATION 09/16/17 10:00 09/23/17 09:59 09/16/17 13:57 Cefazolin Sodium/ Dextrose 50 ml @ 150 mls/hr MECHANICAL ENGINEERING TECHNICIAN IV 09/16/17 10:00 09/23/17 09:59 [facility] STAT ONCE OTHER 09/16/17 14:30 09/16/17 14:31 UNV Cefazolin Sodium 1000 mg/Sodium Chloride 100 ml @ 200 mls/hr Q8H IV 09/16/17 14:30 09/17/17 06:59 UNV (Zofran Inj) 4 mg Q6H PRN IV PUSH 09/16/17 14:30 UNV (Surfak) 240 mg HS PO 09/16/17 21:00 UNV (Milk Of Magnesia Liq) 30 ml DAILY PRN PO 09/16/17 14:30 UNV (Tylenol) 650 mg Q4H PRN PO 09/16/17 14:30 UNV (Percocet 5-325 Mg) 1 tab Q3H PRN PO 09/16/17 14:30 UNV Acetaminophen 100 ml @ 400 mls/hr Q6H IV 09/16/17 14:30 09/17/17 08:44 UNV (Toradol Inj) 15 mg Q6H IV PUSH 09/16/17 14:30 09/17/17 08:31 UNV A/P Assessment and Plan Patient is a 42-year-old male with past medical history of T-cell lymphoma presented with: Problem List: (1) Pneumonia ICD Codes: J18.9 - Pneumonia, unspecified organism Status: Acute Plan: Clinically improved regarding SOB. However, repeat CT chest shows increased consolidation on the right and slight increase right left effusion with mild mediastinal shift to the right consistent with mild volume loss. Patient with recent hospitalization for pneumonia thought to be due to fungal etiology. Patient was discharged on voriconazole and switched to fluconazole by medical oncologist due to side effect of severe bone pain and medical oncology plan plan to extend treatment with fluconazole until patient received bone marrow transplant. On admission patient met sepsis criteria, now resolved Chest x-ray: Increasing infiltrate and density in the right lung with apparent volume loss Fungal workup from prior hospitalization was negative. CT chest with contrast showed worsening right lung infiltrate characteristic of pneumonia. UA negative Legionella and pneumococcal urine antigen negative Blood cultures: No growth 5 days CMV DNA pcr negative ID consulted, appreciate recommendations -Continue Azithromycin, voriconazole -hold off resuming broad pna coverage with antibiotics since pt is clinically stable. Consider resuming empiric antibiotic coverage if pt decompensates -Follow bronchial cultures -Recommending CT surgery perform open lung biopsy given radiographic worsening Pulmonology consulted, appreciate recs -S/p bronchoscopy 09/11 -F/u culture Oncology consulted, appreciate recs -Pain control with oral and IV morphine PRN CT surgery consulted, appreciate assistance -To perform VATS 09/16 Medical plan discussed with patient and and they agreed and showed understanding Incentive spirometry Albuterol nebulizer every 4 hours for shortness of breath prednisone 40 mg QD BAL results: Fungal smear: No fungal elements Acid-fast stain: No acid-fast bacilli Bronchial culture: Light growth normal respiratory edgard Gram stain: no organisms seen Biopsy of right lower lobe of lung: Bronchial mucosa with focal reactive atypia of the basal layers. Fragment of tissue with focal markedly reactive interstitial fibrosis and markedly reactive bronchial epithelial cells. Viral inclusions are not identified. Antibiotic history Vancomycin 09/09-- 09/12 Azithromycin 09/09-- present Zosyn 09/09-- 09/12 Voriconazole po 200 mg 09/09-- present (2) T-cell lymphoma ICD Codes: C85.90 - Non-Hodgkin lymphoma, unspecified, unspecified site Status: Chronic Plan: Diagnosed w/T cell lymphoma in April per biopsy results; s/p CHOP chemotherapy outpatient, follows with Dr. Leigh. Right lung infiltrate infection vs recurrence of T cell lymphoma see plan above (3) Constipation ICD Codes: K59.00 - Constipation, unspecified Status: Acute Plan: Having BM without difficulty -Golytely liq at bedside, 8 oz Q20 min PRN (4) Insomnia ICD Codes: G47.00 - Insomnia, unspecified Status: Acute Plan: Patient with c/o of inability to go to sleep due to anxiety c/w ativan 0.5mg PRN Q8h to aid with improved sleep and anxiety sxs (5) Nutrition, metabolism, and development symptoms ICD Codes: R63.8 - Other symptoms and signs concerning food and fluid intake Plan: Fluids: PO only Electrolytes: Replete as needed Nutrition: Regular diet (after surgery) DVT prophylaxis: Lovenox 40 every 24h GI ppx: protonix 40mg IV Dispo: Pending lung biopsy and results Problem Qualifiers (1) Pneumonia: Qualified Codes: J18.9 - Pneumonia, unspecified organism Yuniel Dwyer MD R2 Sep 16, 2017 12:23 pm
[2017-09-16] MEDS ORDERED: BUPIVACAINE HCL PF 0.5% 30 ML VIAL ONE (12:47)
[2017-09-16] MEDS ORDERED: ceFAZolin 2 GM PREMIX 50 ML ONE (12:47)
[2017-09-16] MEDS ORDERED: oxyCODONE/ACETAMINOPHEN 5 MG/325 MG TAB PO PRN (14:30)
[2017-09-16] MEDS ORDERED: ACETAMINOPHEN 325 MG TAB PO PRN (14:30)
[2017-09-16] MEDS ORDERED: Post-op Orders (for Pharmacy) OTHER ONE (14:30)
[2017-09-16] MEDS ORDERED: ONDANSETRON HCL 4 MG/2 ML VIAL IV PUSH PRN (14:30)
[2017-09-16] MEDS ORDERED: MAGNESIUM HYDROXIDE SUSP 30 ML CUP PO PRN (14:30)
[2017-09-16] MEDS ORDERED: DO NOT ADM ANY ANTICOAGULANT DRUGS PRN (14:45)
--- NOTE | 2017-09-16 14:59 | PD.OP ---
cc: Francis Aleman MD; Aysha Leigh MD; Yong Frey MD Operative Report Date of Surgery: Sep 16, 2017 Preoperative Diagnosis: Postoperative Diagnosis: Procedure: 1. Right Video-Assisted Thoracoscopic Surgery (VATS). 2. Right Upper Lobe Biopsy 3. Intercostal Nerve Block Surgeon: Yong Frey Hides Inspector(s): Renan Mcclure Operation and Findings: PREOPERATIVE DIAGNOSES 1. Idiopathic Pulmonary Insufficiency 2. Right Sided Pulmonary Infiltrates 3. Lymphoma POSTOPERATIVE DIAGNOSES Same SURGICAL PROCEDURE 1. Right Video-Assisted Thoracoscopic Surgery (VATS). 2. Right Upper Lobe Biopsy 3. Intercostal Nerve Block SURGEON Yong Frey MD ROTOR CASTING MACHINE OPERATOR Anthony Mcclure LIFE SKILLS COACH ANESTHESIA General double lumen endotracheal. FLOUR DISTRIBUTOR Osei Lazar, DAILY SALES AUDIT CLERK Ken Edwards MD PREPARATION ChloraPrep. COUNTS Needle, sponge, and instrument counts are correct. DRAINS One 28-Fr Chest Tube. COMPLICATIONS None. INDICATIONS The patient is a 42 yo gentleman with progressive dyspnea and pulmonary infiltrates of unknown etiology. The patient is being brought to the operating room for lung biopsy. DESCRIPTION OF PROCEDURE The patient was brought to the operating room and placed supine on the OR table. Following the induction of adequate general double lumen endotracheal anesthesia and placement of appropriate monitoring devices, the patient was placed in the left lateral decubitus position. The right chest and surrounding areas were then prepped and draped in a standard sterile fashion. A 5 mm camera port was introduced into the 9th intercostal space in mid axillary line, and the camera introduced. A second 5 mm port was then placed anteriorly under direct visual guidance and an additional port placed posteriorly. Pleural effusion was evacuated and sent for histological and cytological analysis. Based on the chest CT a wedge biopsy of the right upper lobe was obtained and sent for histological and microbiological analysis. The anterior port was removed and a 28 Fr chest tube was introduced and maintained in place with a nonabsorbable suture. All of the port sites were injected with Marcaine 0.5% solution. Following confirmation of the catheter in the proper place, the incisions were closed with [address] was attached to a Pleur-evac suction device, and sterile dressing applied. Intercostal nerve block was performed at the level of the ports as well as 3 rib spaces above and below. The patient tolerated the procedure well and was extubated and transferred to the recovery room in stable condition. Yong Frey MD Sep 16, 2017 14:59
[2017-09-16] MEDS: ACETAMINOPHEN 1000 MG/100 ML 100 ML IV SCH ×2 (15:13→20:31)
[2017-09-16] MEDS: KETOROLAC TROMETHAMINE 30 MG/ML (IVP) VIAL IV PUSH SCH ×2 (15:13→20:31)
[2017-09-16] MEDS ORDERED: *RESP: ALBUTEROL 2.5 MG/3 ML NEB (PRN) PERIprocedural Use ONLY NEB ONE (15:25)
--- NOTE | 2017-09-16 16:00 | RADRPT ---
EXAM DATE/TIME: 09/16/2017 16:30 [facility] COMPARISON: CHEST SINGLE AP, September 11, 2017, 16:50. INDICATIONS : Post thoracotomy MEDICAL HISTORY : Hypertension. t-cell lymphoma,asthma SURGICAL HISTORY : None. ENCOUNTER: Subsequent ACUITY: 1 week PAIN SCORE: 0/10 LOCATION: chest FINDINGS: Diffuse opacity throughout the right hemithorax is similar in severity to prior examination. Volume loss with mediastinal shift towards the right. The left subclavian catheter tip projects over the di stal superior vena cava. Interval placement of a right chest drainage tube with the tip projected in the upper mid chest. There is absence of lung markings at the right apex suggesting a 1.2 cm right apical pneumothorax. The left lung is clear. The left hemidiaphragms. CONCLUSION: 1. 1.2 cm right apical pneumothorax with right chest tube in place. 2. Persistent diffuse opacity throughout the right hemithorax with volume loss. Abilio Merida MD on September 16, 2017 at 15:57 Board Certified Radiologist. This report was verified electronically.
[2017-09-16 16:42] VITALS: BP 117/81; PULSE 102; RESP 18; TEMP 98.5; O2SAT 96
[2017-09-16] MEDS: AZITHROMYCIN 250 MG TAB PO SCH (16:50)
[2017-09-16] MEDS: DOCUSATE SODIUM 50 MG/SENNA 8.6 MG TAB PO SCH ×2 (16:51→20:31)
--- NOTE | 2017-09-16 17:34 | HHI.PR ---
Subjective Remarks 42 YOWM with T-cell lymphoma, S/P CHOP therapy has Bilat infilt had bronch, BAL brushing and bx done No fever or chills Had Rt VATS, Rt lung bx feels well, at BS Objective Vital Signs Vital Signs Date Time Temp Pulse Resp B/P (MAP) Pulse Ox O2 Delivery O2 Flow Rate FiO2 09/16/17 16:42 98.5 102 18 117/81 (93) 96 09/16/17 16:15 97.6 85 16 120/69 (86) 95 Nasal Cannula 3 09/16/17 16:00 82 15 117/68 (84) 94 Nasal Cannula 3 09/16/17 15:45 84 15 118/66 (83) 94 Nasal Cannula 3 09/16/17 15:30 83 15 117/68 (84) 93 Nasal Cannula 3 09/16/17 15:15 82 15 119/70 (86) 92 Nasal Cannula 3 09/16/17 15:00 89 15 125/74 (91) 91 Nasal Cannula 3 09/16/17 14:45 90 14 120/72 (88) 98 Simple Mask 8 09/16/17 14:40 98.2 92 12 123/79 (94) 94 Simple Mask 8 09/16/17 12:08 97.9 92 18 119/91 (100) 97 09/16/17 12:00 Nasal Cannula 2.00 09/16/17 10:06 91 Nasal Cannula 2.00 09/16/17 09:45 97.9 88 19 145/92 (109) 91 09/16/17 04:21 16 09/16/17 04:01 Nasal Cannula 2.00 09/16/17 03:25 98.8 88 20 146/93 (110) 96 09/15/17 23:18 98.6 85 18 135/82 (99) 95 09/15/17 20:42 16 09/15/17 20:10 Nasal Cannula 2.00 09/15/17 20:09 98.5 95 18 131/87 (102) 95 I/O 09/15/17 09/15/17 09/15/17 09/16/17 09/16/17 09/16/17 07:00 15:00 23:00 07:00 15:00 23:00 Intake Total 1200 ml 1000 ml 480 ml 1000 ml 240 ml Output Total 575 ml 200 ml 400 ml Balance 625 ml 1000 ml 480 ml 800 ml -160 ml Intake Oral 1200 ml 1000 ml 480 ml 240 ml Other 1000 ml Output Urine Total 575 ml 300 ml Chest Tube Drainage Total 100 ml Estimated Blood Loss 200 ml # Voids 6 5 7 4 # Bowel Movements 2 Result Diagram: 09/16/17 0650 09/15/17 0626 Objective Remarks GENERAL: WBWN WM,NAD SKIN: Warm and dry. HEAD: Normocephalic. EYES: No scleral icterus. No injection or drainage. NECK: Supple, trachea midline. No JVD or lymphadenopathy. CARDIOVASCULAR: Regular rate and rhythm without murmurs, gallops, or rubs. RESPIRATORY: Breath sounds equal bilaterally. No accessory muscle use. GASTROINTESTINAL: Abdomen soft, non-tender, nondistended. MUSCULOSKELETAL: No cyanosis, or edema. BACK: Nontender without obvious deformity. No CVA tenderness. A/P Assessment and Plan IMPRESSION: 1. Extensive right lung infiltrate and infiltrate in the lingula. Differential diagnosis includes fungal infection, opportunistic infection, bacterial pneumonia on top of that and also possibility of extension of lymphoma. 2. Bronchial asthma. 3. Small pleural effusion. 4. S/P Rt VATS and bx PLAN: cont Abx per ID IV Solumedrol. Supplement 02 Chest tube to suction. TIM pt and his Francis Aleman MD Sep 16, 2017 17:34
[2017-09-16 19:57] VITALS: O2SAT 96
[2017-09-16 20:00] VITALS: BP 121/72; PULSE 96; RESP 22; TEMP 98.3; O2SAT 95
[2017-09-16] MEDS: DOCUSATE CALCIUM 240 MG CAP PO SCH (20:31)
[2017-09-16] MEDS: SODIUM CHLORIDE 0.9% FLUSH 10 ML FLUSH IV FLUSH SCH (20:32)
[2017-09-16] MEDS: MORPHINE SULFATE 8 MG/ML INJ IV PUSH PRN (22:53)
[2017-09-17] VITALS (9 sets, daily range): BP systolic 114–144; BP diastolic 76–86; PULSE 97–112; RESP 18–22; TEMP 97.8–98.6; O2SAT 93–97
[2017-09-17] MEDS: MORPHINE SULFATE 8 MG/ML INJ IV PUSH PRN ×2 (02:46→08:40)
[2017-09-17] MEDS: MORPHINE SULFATE 30 MG TAB PO PRN ×2 (02:46→07:10)
[2017-09-17] MEDS: KETOROLAC TROMETHAMINE 30 MG/ML (IVP) VIAL IV PUSH SCH (02:47)
[2017-09-17] MEDS: ACETAMINOPHEN 1000 MG/100 ML 100 ML IV SCH ×2 (02:47→08:12)
[2017-09-17] MEDS: VORICONAZOLE 200 MG TAB PO SCH ×2 (05:05→17:56)
[2017-09-17] MEDS: LORazepam 0.5 MG TAB PO PRN ×3 (05:05→17:58)
[2017-09-17 05:28] LABS: AUTOMATED NEUTROPHIL # 4.4 TH/MM3 (1.8-7.7); BASOPHIL % 0.4 % (0.0-2.0); EOSINOPHIL # 0.2 TH/MM3 (0-0.4); EOSINOPHIL % 3.7 % (0.0-4.0); HEMATOCRIT 32.7 % (39.0-51.0); HEMOGLOBIN 10.9 GM/DL (13.0-17.0); LYMPH % 4.8 % (9.0-44.0); LYMPHOCYTE # 0.3 TH/MM3 (1.0-4.8); MEAN CELL VOLUME 86.2 FL (80.0-100.0); MEAN CORPUSCULAR HEMOGLOBIN 28.7 PG (27.0-34.0); MEAN CORPUSCULAR HGB CONC 33.3 % (32.0-36.0); MEAN PLATELET VOLUME 7.3 FL (7.0-11.0); MONO % 8.4 % (0.0-8.0); MONOCYTE # 0.4 TH/MM3 (0-0.9); NEUT % 82.7 % (16.0-70.0); PLATELET COUNT 188 TH/MM3 (150-450); WHITE BLOOD COUNT 5.4 TH/MM3 (4.0-11.0)
[2017-09-17 05:52] LABS: BICARBONATE 30.5 MEQ/L (21.0-32.0); CALCIUM 8.4 MG/DL (8.5-10.1); CREATININE 0.89 MG/DL (0.60-1.30)
--- NOTE | 2017-09-17 06:41 | RADRPT ---
EXAM DATE/TIME: 09/17/2017 06:08 [facility] COMPARISON: CHEST SINGLE AP, September 16, 2017, 16:30. INDICATIONS : Short of breath. MEDICAL HISTORY : Hypertension. t-cell lymphoma,asthma SURGICAL HISTORY : None. ENCOUNTER: Subsequent ACUITY: 1 week PAIN SCORE: 0/10 LOCATION: Bilateral chest FINDINGS: A single view of the chest demonstrates persistent extensive airway disease in the right hemithorax w ith volume loss. Right apical pneumothorax measures approximately 1.4 cm in depth. There is a right-s ided thoracostomy tube with the side port now at the chest wall. Left lung remains clear. Heart and m ediastinal structures are shifted rightward the heart size appears to be normal. Left subclavian Infu se-a-Port with the tip projecting over the central venous system. Osseous structures are intact CONCLUSION: 1. Persistent volume loss with extensive consolidation in the right hemithorax. Stable right apical p neumothorax. 2. Right-sided thoracostomy tube. Tube appears to been pulled back slightly with the side-port now po sitioned at the chest wall. Alonso Leonardo MD on September 17, 2017 at 6:33 Board Certified Radiologist. This report was verified electronically.
[2017-09-17] MEDS: AZITHROMYCIN 250 MG TAB PO SCH (08:12)
[2017-09-17] MEDS: DOCUSATE SODIUM 50 MG/SENNA 8.6 MG TAB PO SCH ×2 (08:12→20:37)
[2017-09-17] MEDS: predniSONE 20 MG TAB PO SCH (08:12)
[2017-09-17] MEDS: METHADONE HCL 10 MG TAB PO SCH (08:13)
[2017-09-17] MEDS: PANTOPRAZOLE SODIUM 40 MG VIAL IV PUSH SCH (08:13)
[2017-09-17] MEDS: SODIUM CHLORIDE 0.9% FLUSH 10 ML FLUSH IV FLUSH SCH ×2 (08:13→20:37)
[2017-09-17] MEDS ORDERED: MORPHINE SULFATE 4 MG/ML INJ IV PUSH PRN ×2 (08:15→09:45)
[2017-09-17] MEDS ORDERED: KETOROLAC TROMETHAMINE 30 MG/ML (IVP) VIAL IV PUSH PRN (09:00)
--- NOTE | 2017-09-17 09:08 | PD.CAR.PN ---
CVT Progress Note Subjective/Hospital Course: 42/ male hx T-cell lymphoma responding to CHOP chemotherapy. He was in remission on a CT-PET scan in 06/2017 Bronch was inconclusive surgery 09/16 1. Right Video-Assisted Thoracoscopic Surgery (VATS). 2. Right Upper Lobe Biopsy 3. Intercostal Nerve Block pt complains of pain, despite IV and po meds morphine sulfate IV added, may need DRYWALL CONTRACTOR pump pulm toileting , scheduled nebs OOB, PT Objective: GENERAL: SKIN: Warm and dry. incision intact to right postero lateral chest wall HEAD: Normocephalic. EYES: No scleral icterus. No injection or drainage. NECK: Supple, trachea midline. No JVD or lymphadenopathy. CARDIOVASCULAR: Regular rate and rhythm without murmurs, gallops, or rubs. RESPIRATORY: Breath sounds equal bilaterally. No accessory muscle use chest tube to wall suction/ no air leak , at 20cm suction ./ drained 450cc/ 12 hrs , coarse breath sounds on right GASTROINTESTINAL: Abdomen soft, non-tender, nondistended. MUSCULOSKELETAL: No cyanosis, or edema. BACK: Nontender without obvious deformity. No CVA tenderness. Vital Signs Date Time Temp Pulse Resp B/P (MAP) Pulse Ox O2 Delivery O2 Flow Rate FiO2 09/17/17 07:37 94 Nasal Cannula 2.00 09/17/17 07:27 98.6 102 18 114/82 (93) 94 09/17/17 04:00 98.2 112 22 124/78 (93) 94 09/17/17 00:00 98.3 104 22 124/78 (93) 95 09/16/17 20:00 Nasal Cannula 3.00 09/16/17 20:00 98.3 96 22 121/72 (88) 95 09/16/17 19:57 96 Nasal Cannula 3.00 09/16/17 16:42 98.5 102 18 117/81 (93) 96 09/16/17 16:15 97.6 85 16 120/69 (86) 95 Nasal Cannula 3 09/16/17 16:00 82 15 117/68 (84) 94 Nasal Cannula 3 09/16/17 15:45 84 15 118/66 (83) 94 Nasal Cannula 3 09/16/17 15:30 83 15 117/68 (84) 93 Nasal Cannula 3 09/16/17 15:15 82 15 119/70 (86) 92 Nasal Cannula 3 09/16/17 15:00 89 15 125/74 (91) 91 Nasal Cannula 3 09/16/17 14:45 90 14 120/72 (88) 98 Simple Mask 8 09/16/17 14:40 98.2 92 12 123/79 (94) 94 Simple Mask 8 09/16/17 12:08 97.9 92 18 119/91 (100) 97 09/16/17 12:00 Nasal Cannula 2.00 09/16/17 10:06 91 Nasal Cannula 2.00 09/16/17 09:45 97.9 88 19 145/92 (109) 91 Labs: Laboratory Tests Test 09/17/17 05:15 White Blood Count 5.4 TH/MM3 (4.0-11.0) Red Blood Count 3.80 MIL/MM3 (4.50-5.90) Hemoglobin 10.9 GM/DL (13.0-17.0) Hematocrit 32.7 % (39.0-51.0) Mean Corpuscular Volume 86.2 FL (80.0-100.0) Mean Corpuscular Hemoglobin 28.7 PG (27.0-34.0) Mean Corpuscular Hemoglobin Concent 33.3 % (32.0-36.0) Red Cell Distribution Width 18.0 % (11.6-17.2) Platelet Count 188 TH/MM3 (150-450) Mean Platelet Volume 7.3 FL (7.0-11.0) Neutrophils (%) (Auto) 82.7 % (16.0-70.0) Lymphocytes (%) (Auto) 4.8 % (9.0-44.0) Monocytes (%) (Auto) 8.4 % (0.0-8.0) Eosinophils (%) (Auto) 3.7 % (0.0-4.0) Basophils (%) (Auto) 0.4 % (0.0-2.0) Neutrophils # (Auto) 4.4 TH/MM3 (1.8-7.7) Lymphocytes # (Auto) 0.3 TH/MM3 (1.0-4.8) Monocytes # (Auto) 0.4 TH/MM3 (0-0.9) Eosinophils # (Auto) 0.2 TH/MM3 (0-0.4) Basophils # (Auto) 0.0 TH/MM3 (0-0.2) CBC Comment AUTO DIFF Differential Comment AUTO DIFF CONFIRMED Blood Urea Nitrogen 20 MG/DL (7-18) Creatinine 0.89 MG/DL (0.60-1.30) Random Glucose 142 MG/DL (74-106) Calcium Level 8.4 MG/DL (8.5-10.1) Sodium Level 141 MEQ/L (136-145) Potassium Level 3.8 MEQ/L (3.5-5.1) Chloride Level 103 MEQ/L (98-107) Carbon Dioxide Level 30.5 MEQ/L (21.0-32.0) Anion Gap 8 MEQ/L (5-15) Estimat Glomerular Filtration Rate 94 ML/MIN (>89) Result Diagram: 09/17/17 0515 09/17/17 0515 (1) T-cell lymphoma (2) Pleural effusion (3) Right Video-Assisted Thoracoscopic Surgery (VATS). Plan: pulm toileting [facility] , ambulate Rin Farah September 17, 2017 09:08
--- NOTE | 2017-09-17 10:36 | HHI.FPPN ---
Subjective Remarks Patient seen and examined at bedside. No acute events overnight. Patient stated he feels well, no difficulties breathing, pain is well controlled with current medication regimen. Denies chest pain, shortness of breath, nausea or vomiting. Chest tube dressing changed this morning. (J Luis Parker MD, R1) Objective Vitals Vital Signs Date Time Temp Pulse Resp B/P (MAP) Pulse Ox O2 Delivery O2 Flow Rate FiO2 09/17/17 09:40 94 Nasal Cannula 2.00 09/17/17 07:37 94 Nasal Cannula 2.00 09/17/17 07:27 98.6 102 18 114/82 (93) 94 09/17/17 04:00 98.2 112 22 124/78 (93) 94 09/17/17 00:00 98.3 104 22 124/78 (93) 95 09/16/17 20:00 Nasal Cannula 3.00 09/16/17 20:00 98.3 96 22 121/72 (88) 95 09/16/17 19:57 96 Nasal Cannula 3.00 09/16/17 16:42 98.5 102 18 117/81 (93) 96 09/16/17 16:15 97.6 85 16 120/69 (86) 95 Nasal Cannula 3 09/16/17 16:00 82 15 117/68 (84) 94 Nasal Cannula 3 09/16/17 15:45 84 15 118/66 (83) 94 Nasal Cannula 3 09/16/17 15:30 83 15 117/68 (84) 93 Nasal Cannula 3 09/16/17 15:15 82 15 119/70 (86) 92 Nasal Cannula 3 09/16/17 15:00 89 15 125/74 (91) 91 Nasal Cannula 3 09/16/17 14:45 90 14 120/72 (88) 98 Simple Mask 8 09/16/17 14:40 98.2 92 12 123/79 (94) 94 Simple Mask 8 09/16/17 12:08 97.9 92 18 119/91 (100) 97 09/16/17 12:00 Nasal Cannula 2.00 I/O 09/16/17 09/16/17 09/16/17 09/17/17 09/17/17 09/17/17 07:00 15:00 23:00 07:00 15:00 23:00 Intake Total 480 ml 1000 ml 240 ml 480 ml Output Total 200 ml 700 ml 300 ml 450 ml Balance 480 ml 800 ml -460 ml 180 ml -450 ml Intake Oral 480 ml 240 ml 480 ml Other 1000 ml Output Urine Total 600 ml 300 ml Chest Tube Drainage Total 100 ml 450 ml Estimated Blood Loss 200 ml # Voids 7 4 (J Luis Parker MD, R1) Result Diagram: 09/17/17 0515 09/17/17 0515 Imaging Last Impressions Chest X-Ray 09/17/17 0500 Signed Impressions: Service Date/Time: Sunday, September 17, 2017 06:08 - CONCLUSION: 1. Persistent volume loss with extensive consolidation in the right hemithorax. Stable right apical pneumothorax. 2. Right-sided thoracostomy tube. Tube appears to been pulled back slightly with the side-port now positioned at the chest wall. Alonso Leonardo MD Chest CT 09/14/17 0800 Signed Impressions: Service Date/Time: Thursday, September 14, 2017 13:01 - CONCLUSION: There is increased consolidation on the right and slight increase in right effusion with mild mediastinal shift to the right consistent with mild volume loss. New left lower lobe infiltrate. Himasnhu Cleaning MD Objective Remarks GENERAL: This is a well-nourished, well-developed patient, lying in bed in NAD CARDIOVASCULAR: Regular rate and rhythm without murmurs, gallops, or rubs. RESPIRATORY: Breath sounds diminished on R lower lobe. Crackles noted on Right mid and lower lobe. Coarse breath sounds on left lower lobe. Chest tube in place, dressing c/d/i. GASTROINTESTINAL: Abdomen slightly distended, soft, non-tender. MUSCULOSKELETAL: Extremities without clubbing, cyanosis, or edema. No calf tenderness. NEUROLOGICAL: Awake and alert. Motor and sensory grossly within normal limits. Normal speech. (J Luis Parker MD, R1) A/P Assessment and Plan Patient is a 42-year-old male with past medical history of T-cell lymphoma presented with: (J Luis Parker MD, R1) Attending Attestation Patient seen and examined. Case reviewed and discussed Agree with plan of care as discussed with me and documented in the resident note. (Azra Santos MD) Problem List: (1) Pneumonia ICD Codes: J18.9 - Pneumonia, unspecified organism Status: Acute Plan: Clinically improved regarding SOB. However, repeat CT chest shows increased consolidation on the right and slight increase right left effusion with mild mediastinal shift to the right consistent with mild volume loss. Patient with recent hospitalization for pneumonia thought to be due to fungal etiology. Patient was discharged on voriconazole and switched to fluconazole by medical oncologist due to side effect of severe bone pain and medical oncology plan plan to extend treatment with fluconazole until patient received bone marrow transplant. On admission patient met sepsis criteria, now resolved Chest x-ray: Increasing infiltrate and density in the right lung with apparent volume loss Fungal workup from prior hospitalization was negative. CT chest with contrast showed worsening right lung infiltrate characteristic of pneumonia. UA negative Legionella and pneumococcal urine antigen negative Blood cultures: No growth 5 days CMV DNA pcr negative ID consulted, appreciate recommendations -Continue Azithromycin, voriconazole -hold off resuming broad pna coverage with antibiotics since pt is clinically stable. Consider resuming empiric antibiotic coverage if pt decompensates -Follow bronchial cultures -Recommending CT surgery perform open lung biopsy given radiographic worsening Pulmonology consulted, appreciate recs -S/p bronchoscopy 09/11 -F/u culture Oncology consulted, appreciate recs -Pain control with oral and IV morphine PRN CT surgery consulted, appreciate assistance -s/p VATS 09/16, POD #1 - f/u lung bx results Medical plan discussed with patient and and they agreed and showed understanding Incentive spirometry Albuterol nebulizer every 4 hours for shortness of breath prednisone 40 mg QD BAL results: Fungal smear: No fungal elements Acid-fast stain: No acid-fast bacilli Bronchial culture: Light growth normal respiratory edgard Gram stain: no organisms seen Biopsy of right lower lobe of lung: Bronchial mucosa with focal reactive atypia of the basal layers. Fragment of tissue with focal markedly reactive interstitial fibrosis and markedly reactive bronchial epithelial cells. Viral inclusions are not identified. Antibiotic history Vancomycin 09/09-- 09/12 Azithromycin 09/09-- present Zosyn 09/09-- 09/12 Voriconazole po 200 mg 09/09-- present (2) T-cell lymphoma ICD Codes: C85.90 - Non-Hodgkin lymphoma, unspecified, unspecified site Status: Chronic Plan: Diagnosed w/T cell lymphoma in April per biopsy results; s/p CHOP chemotherapy outpatient, follows with Dr. Leigh. Right lung infiltrate infection vs recurrence of T cell lymphoma see plan above (3) Constipation ICD Codes: K59.00 - Constipation, unspecified Status: Acute Plan: Having BM without difficulty -Golytely liq at bedside, 8 oz Q20 min PRN (4) Insomnia ICD Codes: G47.00 - Insomnia, unspecified Status: Acute Plan: Patient with c/o of inability to go to sleep due to anxiety c/w ativan 0.5mg PRN Q8h to aid with improved sleep and anxiety sxs (5) Nutrition, metabolism, and development symptoms ICD Codes: R63.8 - Other symptoms and signs concerning food and fluid intake Plan: Fluids: PO only Electrolytes: Replete as needed Nutrition: Regular diet DVT prophylaxis: Lovenox 40 every 24h GI ppx: protonix 40mg IV Dispo: Pending lung biopsy and results (J Luis Parker MD, R1) Problem Qualifiers (1) Pneumonia: Qualified Codes: J18.9 - Pneumonia, unspecified organism J Luis Parker MD, R1 September 17, 2017 10:35 Azra Santos MD September 21, 2017 10:17
--- NOTE | 2017-09-17 10:58 | PD.ONC.PN ---
Subjective Subjective Remarks Afebrile Patient reports he does not like the way the methadone makes him feel However he took it this morning because he reports that the pain was unbearable The pain is mostly centralized to chest tube insertion area Denies shortness of breath Objective Data Date Time Temp Pulse Resp B/P (MAP) Pulse Ox O2 Delivery O2 Flow Rate FiO2 09/17/17 09:40 94 Nasal Cannula 2.00 09/17/17 07:37 94 Nasal Cannula 2.00 09/17/17 07:27 98.6 102 18 114/82 (93) 94 09/17/17 04:00 98.2 112 22 124/78 (93) 94 09/17/17 00:00 98.3 104 22 124/78 (93) 95 09/16/17 20:00 Nasal Cannula 3.00 09/16/17 20:00 98.3 96 22 121/72 (88) 95 09/16/17 19:57 96 Nasal Cannula 3.00 09/16/17 16:42 98.5 102 18 117/81 (93) 96 09/16/17 16:15 97.6 85 16 120/69 (86) 95 Nasal Cannula 3 09/16/17 16:00 82 15 117/68 (84) 94 Nasal Cannula 3 09/16/17 15:45 84 15 118/66 (83) 94 Nasal Cannula 3 09/16/17 15:30 83 15 117/68 (84) 93 Nasal Cannula 3 09/16/17 15:15 82 15 119/70 (86) 92 Nasal Cannula 3 09/16/17 15:00 89 15 125/74 (91) 91 Nasal Cannula 3 09/16/17 14:45 90 14 120/72 (88) 98 Simple Mask 8 09/16/17 14:40 98.2 92 12 123/79 (94) 94 Simple Mask 8 09/16/17 12:08 97.9 92 18 119/91 (100) 97 09/16/17 12:00 Nasal Cannula 2.00 09/17/17 09/17/17 09/17/17 06:59 14:59 22:59 Intake Total 480 ml Output Total 300 ml 450 ml Balance 180 ml -450 ml Result Diagram: 09/17/17 0515 09/17/17 0515 Laboratory Results Laboratory Tests Test 09/17/17 05:15 White Blood Count 5.4 TH/MM3 Red Blood Count 3.80 MIL/MM3 Hemoglobin 10.9 GM/DL Hematocrit 32.7 % Mean Corpuscular Volume 86.2 FL Mean Corpuscular Hemoglobin 28.7 PG Mean Corpuscular Hemoglobin Concent 33.3 % Red Cell Distribution Width 18.0 % Platelet Count 188 TH/MM3 Mean Platelet Volume 7.3 FL Neutrophils (%) (Auto) 82.7 % Lymphocytes (%) (Auto) 4.8 % Monocytes (%) (Auto) 8.4 % Eosinophils (%) (Auto) 3.7 % Basophils (%) (Auto) 0.4 % Neutrophils # (Auto) 4.4 TH/MM3 Lymphocytes # (Auto) 0.3 TH/MM3 Monocytes # (Auto) 0.4 TH/MM3 Eosinophils # (Auto) 0.2 TH/MM3 Basophils # (Auto) 0.0 TH/MM3 CBC Comment AUTO DIFF Differential Comment AUTO DIFF CONFIRMED Blood Urea Nitrogen 20 MG/DL Creatinine 0.89 MG/DL Random Glucose 142 MG/DL Calcium Level 8.4 MG/DL Sodium Level 141 MEQ/L Potassium Level 3.8 MEQ/L Chloride Level 103 MEQ/L Carbon Dioxide Level 30.5 MEQ/L Anion Gap 8 MEQ/L Estimat Glomerular Filtration Rate 94 ML/MIN Culture Results Microbiology Date/Time Source Procedure Growth Status 09/16/17 13:49 Fluid Pleural Fluid Fungal Smear - Final NO FUNGAL ELEMENTS SEEN. Resulted 09/16/17 13:49 Fluid Pleural Fluid Fungal Culture Pending Resulted 09/16/17 13:49 Fluid Pleural Fluid Acid Fast Stain Pending Received 09/16/17 13:49 Fluid Pleural Fluid Mycobacterial Culture Pending Received 09/16/17 13:49 Fluid Pleural Fluid Gram Stain - Final Resulted 09/16/17 13:49 Fluid Pleural Fluid Body Fluid Culture Pending Resulted 09/16/17 14:00 Wound Lung Fungal Smear - Final NO FUNGAL ELEMENTS SEEN. Resulted 09/16/17 14:00 Wound Lung Fungal Culture Pending Resulted 09/16/17 14:00 Wound Lung Acid Fast Stain Pending Received 09/16/17 14:00 Wound Lung Mycobacterial Culture Pending Received 09/16/17 14:00 Wound Lung Gram Stain - Final Resulted 09/16/17 14:00 Wound Lung Wound Culture Pending Resulted Imaging Studies Last 24 hours Impressions Chest X-Ray 09/17/17 0500 Signed Impressions: Service Date/Time: Sunday, September 17, 2017 06:08 - CONCLUSION: 1. Persistent volume loss with extensive consolidation in the right hemithorax. Stable right apical pneumothorax. 2. Right-sided thoracostomy tube. Tube appears to been pulled back slightly with the side-port now positioned at the chest wall. Alonso Leonardo MD Administered Medications Medications (Trade) Dose Ordered Sig/Suzan Route PRN Reason Start Time Stop Time Status Last Admin Dose Admin Enoxaparin Sodium (Lovenox Inj) 40 mg Q24H SQ 09/09/17 16:00 Future Hold 09/15/17 15:51 Senna/Docusate Sodium (Naa-Colace) 1 tab BID PO 09/09/17 21:00 09/17/17 08:12 Sennosides (Senokot) 17.2 mg Q12H PRN PO Moderate constipation 09/09/17 15:15 09/16/17 16:51 Lactulose (Lactulose Liq) 30 ml DAILY PRN PO SEVERE CONSITIPATION 09/09/17 15:15 09/13/17 08:24 Heparin Sodium (Porcine) (Heparin Central Flush) 500 units UNSCH IV FLUSH 09/09/17 15:30 09/16/17 04:33 Voriconazole (Vfend) 200 mg Q12H PO 09/12/17 18:00 09/17/17 05:05 Pantoprazole Sodium (Protonix Inj) 40 mg Q24H IV PUSH 09/12/17 08:30 09/17/17 08:13 Al Hydrox/Mg Hydrox/Simethicone (Mag-Al Plus Susp Liq) 30 ml Q6H PRN PO DYSPEPSIA OR HEARTBURN 09/12/17 08:30 09/12/17 09:52 Lorazepam (Ativan) 0.5 mg Q6H PRN PO anxiety 09/12/17 12:45 09/17/17 05:05 Azithromycin (Zithromax) 500 mg DAILY PO 09/13/17 09:00 09/17/17 08:12 Prednisone (Deltasone) 40 mg DAILY PO 09/14/17 09:00 09/17/17 08:12 Albuterol/ Ipratropium (Duoneb Neb) 1 ampule Q4HR NEB PRN NEB cough 09/14/17 11:30 09/16/17 03:59 Sodium Chloride (NS Flush) 2 ml BID IV FLUSH 09/16/17 21:00 09/17/17 08:13 Cefazolin Sodium 500 mg/Sodium Chloride 505 ml @ 0 mls/hr [employer] IRRIGATION 09/16/17 10:00 09/23/17 09:59 09/16/17 13:57 Cefazolin Sodium 1000 mg/Sodium Chloride 100 ml @ 200 mls/hr Q8H IV 09/16/17 22:00 09/17/17 14:29 09/17/17 05:04 Docusate Calcium (Surfak) 240 mg HS PO 09/16/17 21:00 09/16/17 20:31 Objective Remarks GENERAL: Young male sitting up in bed in no obvious distress SKIN: Warm and dry. HEAD: Normocephalic. EYES: No injection or drainage. NECK: Supple, trachea midline. CARDIOVASCULAR: Regular rate and rhythm without murmurs. Mildly tachycardic RESPIRATORY: Scattered rhonchi to right lung. Chest tube with serosanguineous drainage noted on right GASTROINTESTINAL: Abdomen soft, non-tender, nondistended. EXTREMITIES: No cyanosis, or edema. MUSCULOSKELETAL: Adequate muscle tone. NEUROLOGICAL: No obvious focal deficit. Awake, alert, and oriented x3. Assessment/Plan Problem List: (1) Pneumonia ICD Codes: J18.9 - Pneumonia, unspecified organism Status: Acute Plan: --repeat CT chest shows worsening PNA and new left sided infiltrate with small pleural effusion. --unclear etiology --on VFEND --ID following. --CTS following, planning on VATS with right lung biopsy today, 09/16 (2) T-cell lymphoma ICD Codes: C85.90 - Non-Hodgkin lymphoma, unspecified, unspecified site Status: Chronic Plan: --concern for recurrence --in remission --received CHOP chemotherapy in clinic. Assessment 42y/o male with T-cell lymphoma admitted with worsening right lung infiltrate. Plan 1. Await biopsy from right lung VATS procedure yesterday 2. We will attempt to streamline pain medications; will start low-dose long- acting morphine and discontinue methadone as he tolerates IV morphine. 3. Continue supportive care Attending Statement The exam, history, and the medical decision-making described in the above note were completed with the assistance of the mid-level provider. I reviewed and agree with the findings presented. I attest that I had a [id number] encounter with the patient on the same day, and personally performed and documented my assessment and findings in the medical record. Chest tube draining 780cc- still good out put. Pathology still pending. c/o alot of pain from chest tube, not controlled on Morphine 5mg Q3H. Discussed long acting pain medication, no complaints about bone pain at present. Discussed w/ his nurse optimize dose to Morphine 10mg Q3H prn pain. Tolerating Voriconazole and Azithromycin. Cultures pending. Problem Qualifiers (1) Pneumonia: Qualified Codes: J18.9 - Pneumonia, unspecified organism Karyn Julien September 17, 2017 10:57 Aysha Leigh MD September 17, 2017 20:14
[2017-09-17] MEDS: RESP: ALBUTEROL 2.5 MG/IPRATROPIUM 0.5 MG NEB (SCH) NEB ×2 (11:06→19:11)
--- NOTE | 2017-09-17 13:54 | HHI.IDPN ---
Subjective Subjective Remarks Mr. 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 Patient is known to me from his last admission. He reports he underwent 6 sessions of chemotherapy and Radiation therapy so far. He went into remission and CT PET scan from 06/2017 was clear. He follows with of Oncology. He continued on CHOP chemotherapy. In early part of July patient was short of breath. He went to an urgent care in [place] and due to worsening Shortness of breath was admitted to hospital. CXR and CT chest during that admission was diffuse bilateral scattered infiltrates. He did not respond to IV antibiotics but when voriconazole was empirically added he responded well and was discharged home. He completed a 2 week course of voriconazole and improved significantly. His only complaint in the 2 week period was the joint pains. He saw in follow up. She switched him to oral Diflucan with a plan to keep him on it till after chemo and BMTs if determined as candidate. He reports that within 2-3 days of this change he felt worse significantly and now represents to hospital with worsening shortness of breath. Upon discussion with admitting team patient had difficulty completing sentences yesterday and would get winded but today looked much improved on regimen of IV antibiotics, atypical coverage with Azithro and Voriconazole that was empirically restarted yday. At the time of my evaluation, patient is on regular floor. At time of my visit patient was seen by Pulmonology and / residency team. He was sitting up in bed with knees folded appeared comfortable, able to complete sentences. He reported improvement in symptoms since admission and the admitting team echoed similarly. No fever No rash C/o chest pain on right side. No diarrhea CT chest worsening on repeat s/p open lung biopsy Antibiotics Azithro Voriconazole. Lines Line sites with no e.o infection Past Medical History Past Medical History T-cell lymphoblastic lymphoma. Asthma. History of herniated disk. recurrent pneumonia Past Surgical History Port placement, thoracentesis, CT-guided biopsy of mediastinal mass Bronchoscopy. Allergies: Coded Allergies: No Known Allergies (Unverified , 09/09/17) Objective . Vital Signs Date Time Temp Pulse Resp B/P (MAP) Pulse Ox O2 Delivery O2 Flow Rate FiO2 5/1/18 11:44 93 Nasal Cannula 2.00 09/17/17 11:36 97.8 111 18 133/79 (97) 93 09/17/17 09:40 94 Nasal Cannula 2.00 09/17/17 07:37 94 Nasal Cannula 2.00 09/17/17 07:27 98.6 102 18 114/82 (93) 94 09/17/17 04:00 98.2 112 22 124/78 (93) 94 09/17/17 00:00 98.3 104 22 124/78 (93) 95 09/16/17 20:00 Nasal Cannula 3.00 09/16/17 20:00 98.3 96 22 121/72 (88) 95 09/16/17 19:57 96 Nasal Cannula 3.00 09/16/17 16:42 98.5 102 18 117/81 (93) 96 09/16/17 16:15 97.6 85 16 120/69 (86) 95 Nasal Cannula 3 09/16/17 16:00 82 15 117/68 (84) 94 Nasal Cannula 3 09/16/17 15:45 84 15 118/66 (83) 94 Nasal Cannula 3 09/16/17 15:30 83 15 117/68 (84) 93 Nasal Cannula 3 09/16/17 15:15 82 15 119/70 (86) 92 Nasal Cannula 3 09/16/17 15:00 89 15 125/74 (91) 91 Nasal Cannula 3 09/16/17 14:45 90 14 120/72 (88) 98 Simple Mask 8 09/16/17 14:40 98.2 92 12 123/79 (94) 94 Simple Mask 8 09/17/17 09/17/17 09/18/17 15:00 23:00 07:00 Output Total 450 ml Balance -450 ml Chest Tube Drainage Total 450 ml . Laboratory Tests Test 09/16/17 06:50 09/17/17 05:15 White Blood Count 6.8 TH/MM3 5.4 TH/MM3 Red Blood Count 3.97 MIL/MM3 3.80 MIL/MM3 Hemoglobin 11.3 GM/DL 10.9 GM/DL Hematocrit 34.4 % 32.7 % Mean Corpuscular Volume 86.7 FL 86.2 FL Mean Corpuscular Hemoglobin 28.5 PG 28.7 PG Mean Corpuscular Hemoglobin Concent 32.8 % 33.3 % Red Cell Distribution Width 18.4 % 18.0 % Platelet Count 166 TH/MM3 188 TH/MM3 Mean Platelet Volume 7.2 FL 7.3 FL Neutrophils (%) (Auto) 85.4 % 82.7 % Lymphocytes (%) (Auto) 4.6 % 4.8 % Monocytes (%) (Auto) 6.9 % 8.4 % Eosinophils (%) (Auto) 3.0 % 3.7 % Basophils (%) (Auto) 0.1 % 0.4 % Neutrophils # (Auto) 5.8 TH/MM3 4.4 TH/MM3 Lymphocytes # (Auto) 0.3 TH/MM3 0.3 TH/MM3 Monocytes # (Auto) 0.5 TH/MM3 0.4 TH/MM3 Eosinophils # (Auto) 0.2 TH/MM3 0.2 TH/MM3 Basophils # (Auto) 0.0 TH/MM3 0.0 TH/MM3 CBC Comment DIFF FINAL AUTO DIFF Differential Comment AUTO DIFF CONFIRMED Laboratory Tests Test 09/17/17 05:15 Blood Urea Nitrogen 20 MG/DL Creatinine 0.89 MG/DL Random Glucose 142 MG/DL Calcium Level 8.4 MG/DL Sodium Level 141 MEQ/L Potassium Level 3.8 MEQ/L Chloride Level 103 MEQ/L Carbon Dioxide Level 30.5 MEQ/L Anion Gap 8 MEQ/L Estimat Glomerular Filtration Rate 94 ML/MIN Microbiology Date/Time Source Procedure Growth Status 09/16/17 13:49 Fluid Pleural Fluid Fungal Smear - Final NO FUNGAL ELEMENTS SEEN. Resulted 09/16/17 13:49 Fluid Pleural Fluid Fungal Culture Pending Resulted 09/16/17 13:49 Fluid Pleural Fluid Acid Fast Stain Pending Received 09/16/17 13:49 Fluid Pleural Fluid Mycobacterial Culture Pending Received 09/16/17 13:49 Fluid Pleural Fluid Gram Stain - Final Resulted 09/16/17 13:49 Fluid Pleural Fluid Body Fluid Culture Pending Resulted 09/16/17 14:00 Wound Lung Fungal Smear - Final NO FUNGAL ELEMENTS SEEN. Resulted 09/16/17 14:00 Wound Lung Fungal Culture Pending Resulted 09/16/17 14:00 Wound Lung Acid Fast Stain Pending Received 09/16/17 14:00 Wound Lung Mycobacterial Culture Pending Received 09/16/17 14:00 Wound Lung Gram Stain - Final Resulted 09/16/17 14:00 Wound Lung Wound Culture Pending Resulted Imaging Last Impressions Chest CT 09/14/17 0800 Signed Impressions: Service Date/Time: Thursday, September 14, 2017 13:01 - CONCLUSION: There is increased consolidation on the right and slight increase in right effusion with mild mediastinal shift to the right consistent with mild volume loss. New left lower lobe infiltrate. Himanshu Cleaning MD Chest X-Ray 09/11/17 0000 Signed Impressions: Service Date/Time: Monday, September 11, 2017 16:50 - CONCLUSION: 1. Interval worsening diffuse infiltrate in the right lung consistent with possible worsening pneumonia. Clinical correlation is recommended. 2. No pneumothorax. Anthony Brewer MD Physical Exam GENERAL: This is a well-nourished, well-developed patient, in no apparent distress. SKIN: No rashes, ecchymoses or lesions. Cool and dry. HEAD: Atraumatic. Normocephalic. No temporal or scalp tenderness. EYES: Pupils equal round and reactive. Extraocular motions intact. No scleral icterus. No injection or drainage. ENT: Nose without bleeding, purulent drainage or septal hematoma. Throat without erythema, tonsillar hypertrophy or exudate. Uvula midline. Airway patent. NECK: Trachea midline. Supple, nontender, no meningeal signs. No LN'jessy CARDIOVASCULAR: HS audible. No murmur. RESPIRATORY: Clear to auscultation. Breath sounds equal bilaterally. Scattered rhonchi. Rt CT in place. GASTROINTESTINAL: Abdomen soft, non-tender, nondistended. No Organomegaly. MUSCULOSKELETAL: Extremities without clubbing, cyanosis, or edema. No joint tenderness, effusion, or edema noted. No calf tenderness. Negative Homans sign bilaterally. NEUROLOGICAL: Awake and alert. Non focal exam Psych cooperative Port site ok. IV line sites with no e.o infection. Assessment & Plan Remarks Recurrent Pneumonia. DDX: Fungal ?? aspergillosis (prior h/o exposure to mold). Fungal cultures from last bronch negative so far but not final. Serologies may not be reliable as patient is immunecompromised. q - pt reports improvement on empiric voriconazole - apparently deals with the above problem since April thoracenthesis back then showed T cell lymphoma cells i n pleural effusion atypical mycobacteria Lymphoma infiltrates seem less likely as CT right side consolidation more s/ o pneumonia rather than lymphoma. Mediastinal LNpathy improved since last treated and seen in hospital. 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 CT findings from today and 09/09 were comparerd reviewed with radiologist: infiltrate has progressed. No cavities to suggest fungal infection Recs Continue Azithro change to oral. Continue Voriconazole. Follow 12 lead EKG if symptomatic or atleast once a week. 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 dagoberto patient and spouse. Will follow next after Biospy results available to determine plan. dagoberto pt , @ b/s Dagoberto arenas radiologist Sarah Dwyer MD September 17, 2017 13:54
[2017-09-17] MEDS: MORPHINE SULFATE 4 MG/ML INJ IV PUSH PRN ×3 (16:04→22:33)
[2017-09-17] MEDS: ACETAMINOPHEN 325 MG TAB PO PRN (17:58)
--- NOTE | 2017-09-17 20:05 | HHI.PR ---
Subjective Remarks 42 YOWM with T-cell lymphoma, S/P CHOP therapy has Bilat infilt had bronch, BAL brushing and bx done No fever or chills Had Rt VATS, Rt lung bx C/o chest pain, on Oromorph tremers with Nebs Objective Vital Signs Vital Signs Date Time Temp Pulse Resp B/P (MAP) Pulse Ox O2 Delivery O2 Flow Rate FiO2 09/17/17 19:11 93 Nasal Cannula 2.00 09/17/17 16:02 97.9 108 18 139/78 (98) 95 09/17/17 11:44 93 Nasal Cannula 2.00 09/17/17 11:36 97.8 111 18 133/79 (97) 93 09/17/17 09:40 94 Nasal Cannula 2.00 09/17/17 07:37 94 Nasal Cannula 2.00 09/17/17 07:27 98.6 102 18 114/82 (93) 94 09/17/17 04:00 98.2 112 22 124/78 (93) 94 09/17/17 00:00 98.3 104 22 124/78 (93) 95 I/O 09/16/17 09/16/17 09/16/17 09/17/17 09/17/17 09/17/17 07:00 15:00 23:00 07:00 15:00 23:00 Intake Total 480 ml 1000 ml 240 ml 480 ml 100 ml 2100 ml Output Total 200 ml 700 ml 300 ml 450 ml 335 ml Balance 480 ml 800 ml -460 ml 180 ml -350 ml 1765 ml Intake Oral 480 ml 240 ml 480 ml 2000 ml IV Total 100 ml 100 ml Other 1000 ml Output Urine Total 600 ml 300 ml Chest Tube Drainage Total 100 ml 450 ml 335 ml Estimated Blood Loss 200 ml # Voids 7 4 4 # Bowel Movements 0 Result Diagram: 09/17/1715 09/17/17 0515 Objective Remarks GENERAL: WBWN WM,NAD SKIN: Warm and dry. HEAD: Normocephalic. EYES: No scleral icterus. No injection or drainage. NECK: Supple, trachea midline. No JVD or lymphadenopathy. CARDIOVASCULAR: Regular rate and rhythm without murmurs, gallops, or rubs. RESPIRATORY: Breath sounds equal bilaterally. No accessory muscle use. GASTROINTESTINAL: Abdomen soft, non-tender, nondistended. MUSCULOSKELETAL: No cyanosis, or edema. BACK: Nontender without obvious deformity. No CVA tenderness. A/P Assessment and Plan IMPRESSION: 1. Extensive right lung infiltrate and infiltrate in the lingula. Differential diagnosis includes fungal infection, opportunistic infection, bacterial pneumonia on top of that and also possibility of extension of lymphoma. 2. Bronchial asthma. 3. Small pleural effusion. 4. S/P Rt VATS and bx PLAN: cont Abx per ID IV Solumedrol. Supplement 02 Chest tube to suction. Change nebs to prn Francis Aleman MD September 17, 2017 20:05
[2017-09-17] MEDS: DOCUSATE CALCIUM 240 MG CAP PO SCH (20:36)
[2017-09-17] MEDS: MORPHINE SULFATE 15 MG CONTROLLED RELEASE TAB PO SCH (21:43)
[2017-09-18] VITALS (8 sets, daily range): BP systolic 125–154; BP diastolic 87–98; PULSE 98–111; RESP 16–18; TEMP 98.2–98.7; O2SAT 92–97
[2017-09-18] MEDS: MORPHINE SULFATE 4 MG/ML INJ IV PUSH PRN ×7 (02:26→23:07)
[2017-09-18] MEDS: ACETAMINOPHEN 325 MG TAB PO PRN ×3 (04:55→18:19)
[2017-09-18] MEDS: VORICONAZOLE 200 MG TAB PO SCH ×2 (04:55→18:19)
[2017-09-18] MEDS: LORazepam 0.5 MG TAB PO PRN ×3 (05:07→18:19)
[2017-09-18 06:22] LABS: AUTOMATED NEUTROPHIL # 4.7 TH/MM3 (1.8-7.7); BASOPHIL % 0.3 % (0.0-2.0); EOSINOPHIL # 0.2 TH/MM3 (0-0.4); EOSINOPHIL % 3.3 % (0.0-4.0); HEMATOCRIT 33.7 % (39.0-51.0); LYMPH % 5.5 % (9.0-44.0); LYMPHOCYTE # 0.3 TH/MM3 (1.0-4.8); MEAN CELL VOLUME 86.7 FL (80.0-100.0); MEAN CORPUSCULAR HEMOGLOBIN 28.3 PG (27.0-34.0); MEAN CORPUSCULAR HGB CONC 32.7 % (32.0-36.0); MEAN PLATELET VOLUME 7.6 FL (7.0-11.0); MONO % 8.6 % (0.0-8.0); MONOCYTE # 0.5 TH/MM3 (0-0.9); NEUT % 82.3 % (16.0-70.0); PLATELET COUNT 195 TH/MM3 (150-450); RED BLOOD COUNT 3.88 MIL/MM3 (4.50-5.90); RED CELL DISTRIBUTION WIDTH 18.6 % (11.6-17.2); WHITE BLOOD COUNT 5.7 TH/MM3 (4.0-11.0)
[2017-09-18 06:50] LABS: ALBUMIN 2.7 GM/DL (3.4-5.0); AST (GOT) 18 U/L (15-37); BICARBONATE 32.6 MEQ/L (21.0-32.0); BLOOD UREA NITROGEN 14 MG/DL (7-18); CALCIUM 8.7 MG/DL (8.5-10.1); CHLORIDE 103 MEQ/L (98-107); CREATININE 0.84 MG/DL (0.60-1.30); GLOMERULAR FILTRATION RATE 100 ML/MIN (>89); GLUCOSE,RANDOM 107 MG/DL (74-106); SODIUM (NA) 142 MEQ/L (136-145)
[2017-09-18 06:51] LABS: ALT (GPT) 59 U/L (12-78)
[2017-09-18 06:53] LABS: ALKALINE PHOSPHATASE 59 U/L (45-117); TOTAL BILIRUBIN ADULT 0.3 MG/DL (0.2-1.0); TOTAL PROTEIN 6.4 GM/DL (6.4-8.2)
[2017-09-18] MEDS: RESP: ALBUTEROL 2.5 MG/IPRATROPIUM 0.5 MG NEB (SCH) NEB ×3 (07:50→20:01)
[2017-09-18] MEDS ORDERED: POTASSIUM CHLORIDE 20 MEQ CONTROLLED RELEASE TAB PO ONE (08:15)
[2017-09-18] MEDS: AZITHROMYCIN 250 MG TAB PO SCH (08:20)
[2017-09-18] MEDS: MORPHINE SULFATE 15 MG CONTROLLED RELEASE TAB PO SCH ×2 (08:20→21:39)
[2017-09-18] MEDS: PANTOPRAZOLE SOD 40 MG DELAYED RELEASE TAB PO SCH (08:20)
[2017-09-18] MEDS: DOCUSATE SODIUM 50 MG/SENNA 8.6 MG TAB PO SCH ×2 (08:20→19:28)
[2017-09-18] MEDS: predniSONE 20 MG TAB PO SCH (08:20)
[2017-09-18] MEDS: SODIUM CHLORIDE 0.9% FLUSH 10 ML FLUSH IV FLUSH SCH ×2 (08:23→19:29)
[2017-09-18 08:24] LABS: BANDS 1 % (0-6); CORRECTED NUCLEATED RBC 1 /100 WBC (0-0); LYMPHOCYTES 4 % (9-44); MONOCYTES 3 % (0-8); MYELOCYTES 3 % (0-0); NEUTROPHIL # MANUAL DIFF 5.2 TH/MM3 (1.8-7.7); NUCLEATED RED BLOOD CELL 1 (0-0); POLYS (SEG NEUTROPHILS) 87 % (16-70)
[2017-09-18 08:25] LABS: OVALOCYTES 1+ (NORMAL); TEARDROP RBCS 1+ (NORMAL)
--- NOTE | 2017-09-18 14:43 | HHI.FPPN ---
Subjective Remarks Patient seen and examined this morning. Patient stated pain at chest tube site had increased and pain medication were adjusted appropriately under Dr. Leigh guidance. Patient has not had a bowel movement today but is advancing with the constipation protocol. (J Luis Parker MD, R1) Objective Vitals Vital Signs Date Time Temp Pulse Resp B/P (MAP) Pulse Ox O2 Delivery O2 Flow Rate FiO2 09/18/17 11:52 93 Nasal Cannula 3.00 09/18/17 11:18 98.7 111 18 136/93 (107) 93 09/18/17 08:24 93 Nasal Cannula 3.00 09/18/17 08:11 98.2 111 18 138/88 (105) 93 09/18/17 07:51 92 Nasal Cannula 3.00 09/18/17 04:55 98.5 104 18 139/88 (105) 93 09/17/17 23:49 98.6 108 18 135/76 (95) 97 09/17/17 20:25 98.3 97 19 144/86 (105) 96 09/17/17 20:25 96 Nasal Cannula 3.00 09/17/17 19:11 93 Nasal Cannula 2.00 09/17/17 16:02 97.9 108 18 139/78 (98) 95 I/O 09/17/17 09/17/17 09/17/17 09/18/17 09/18/17 09/18/17 07:00 15:00 23:00 07:00 15:00 23:00 Intake Total 480 ml 100 ml 2100 ml 600 ml Output Total 300 ml 450 ml 335 ml 150 ml Balance 180 ml -350 ml 1765 ml 450 ml Intake Oral 480 ml 2000 ml 600 ml IV Total 100 ml 100 ml Output Urine Total 300 ml Chest Tube Drainage Total 450 ml 335 ml 150 ml # Voids 4 3 # Bowel Movements 0 (J Luis Parker MD, R1) Result Diagram: 09/18/17 0500 09/18/17 0500 Imaging Last Impressions Chest X-Ray 09/17/17 0500 Signed Impressions: Service Date/Time: Sunday, September 17, 2017 06:08 - CONCLUSION: 1. Persistent volume loss with extensive consolidation in the right hemithorax. Stable right apical pneumothorax. 2. Right-sided thoracostomy tube. Tube appears to been pulled back slightly with the side-port now positioned at the chest wall. Alonso Leonardo MD Chest CT 09/14/17 0800 Signed Impressions: Service Date/Time: Thursday, September 14, 2017 13:01 - CONCLUSION: There is increased consolidation on the right and slight increase in right effusion with mild mediastinal shift to the right consistent with mild volume loss. New left lower lobe infiltrate. Himanshu Cleaning MD Objective Remarks GENERAL: This is a well-nourished, well-developed patient, lying in bed in NAD CARDIOVASCULAR: Regular rate and rhythm without murmurs, gallops, or rubs. RESPIRATORY: Breath sounds diminished on R lower lobe. Crackles noted throughout right lung. Coarse breath sounds on left lower lobe. Chest tube in place, dressing c/d/i. GASTROINTESTINAL: Abdomen slightly distended, soft, non-tender. MUSCULOSKELETAL: Extremities without clubbing, cyanosis, or edema. No calf tenderness. NEUROLOGICAL: Awake and alert. Motor and sensory grossly within normal limits. Normal speech. (J Luis Parker MD, R1) A/P Assessment and Plan Patient is a 42-year-old male with past medical history of T-cell lymphoma presented with: (J Luis Parker MD, R1) Attending Attestation Patient seen and examined. Case reviewed and discussed. Agree with plan of care as discussed with me and documented in the resident note. (Azra Santos MD) Problem List: (1) Pneumonia ICD Codes: J18.9 - Pneumonia, unspecified organism Status: Acute Plan: Clinically improved regarding SOB. However, repeat CT chest shows increased consolidation on the right and slight increase right left effusion with mild mediastinal shift to the right consistent with mild volume loss. Patient with recent hospitalization for pneumonia thought to be due to fungal etiology. Patient was discharged on voriconazole and switched to fluconazole by medical oncologist due to side effect of severe bone pain and medical oncology plan plan to extend treatment with fluconazole until patient received bone marrow transplant. On admission patient met sepsis criteria, now resolved Chest x-ray: Increasing infiltrate and density in the right lung with apparent volume loss Fungal workup from prior hospitalization was negative. CT chest with contrast showed worsening right lung infiltrate characteristic of pneumonia. UA negative Legionella and pneumococcal urine antigen negative Blood cultures: No growth 5 days CMV DNA pcr negative ID consulted, appreciate recommendations -Continue Azithromycin, voriconazole -hold off resuming broad pna coverage with antibiotics since pt is clinically stable. Consider resuming empiric antibiotic coverage if pt decompensates -Follow bronchial cultures -Recommending CT surgery perform open lung biopsy given radiographic worsening Pulmonology consulted, appreciate recs -S/p bronchoscopy 09/11 -F/u culture Oncology consulted, appreciate recs -Pain control with oral and IV morphine PRN CT surgery consulted, appreciate assistance -s/p VATS 09/16, POD #2 Lung bx results: Pathology pending Fungal smear: No fungal elements seen Pleural fluid culture: No growth 2 days Acid-fast, mycobacterial culture, fungal culture: pending Medical plan discussed with patient and and they agreed and showed understanding Incentive spirometry Albuterol nebulizer every 4 hours for shortness of breath prednisone 40 mg QD BAL results: Fungal smear: No fungal elements Acid-fast stain: No acid-fast bacilli Bronchial culture: Light growth normal respiratory edgard Gram stain: no organisms seen Biopsy of right lower lobe of lung: Bronchial mucosa with focal reactive atypia of the basal layers. Fragment of tissue with focal markedly reactive interstitial fibrosis and markedly reactive bronchial epithelial cells. Viral inclusions are not identified. Antibiotic history Vancomycin 09/09-- 09/12 Azithromycin 09/09-- present Zosyn 09/09-- 09/12 Voriconazole po 200 mg 09/09-- present (2) T-cell lymphoma ICD Codes: C85.90 - Non-Hodgkin lymphoma, unspecified, unspecified site Status: Chronic Plan: Diagnosed w/T cell lymphoma in April per biopsy results; s/p CHOP chemotherapy outpatient, follows with Dr. Leigh. Right lung infiltrate infection vs recurrence of T cell lymphoma see plan above (3) Constipation ICD Codes: K59.00 - Constipation, unspecified Status: Acute Plan: Continue to monitor Constipation protocol -Golytely liq at bedside, 8 oz Q20 min PRN (4) Insomnia ICD Codes: G47.00 - Insomnia, unspecified Status: Acute Plan: Patient with c/o of inability to go to sleep due to anxiety c/w ativan 0.5mg PRN Q8h to aid with improved sleep and anxiety sxs (5) Nutrition, metabolism, and development symptoms ICD Codes: R63.8 - Other symptoms and signs concerning food and fluid intake Plan: Fluids: PO only Electrolytes: Replete as needed Nutrition: Regular diet DVT prophylaxis: Lovenox 40 every 24h GI ppx: protonix 40mg IV Dispo: Pending lung biopsy and results (J Luis Parker MD, R1) Problem Qualifiers (1) Pneumonia: Qualified Codes: J18.9 - Pneumonia, unspecified organism J Luis Parker MD, R1 September 18, 2017 14:43 Azra Santos MD September 20, 2017 18:25
--- NOTE | 2017-09-18 16:53 | PD.ONC.PN ---
Subjective Subjective Remarks Late entry: Pt seen and examined at approximately 1pm today. Afebrile Pt still with significant output from chest tube He reports his pain is much improved from yesterday. He states his pain level is as high as 8 today, compared with 10 yesterday Per RN, he is tolerating IV morphine with no problems Objective Data Date Time Temp Pulse Resp B/P (MAP) Pulse Ox O2 Delivery O2 Flow Rate FiO2 09/18/17 15:11 98.6 98 18 125/94 (104) 96 09/18/17 11:52 93 Nasal Cannula 3.00 09/18/17 11:18 98.7 111 18 136/93 (107) 93 09/18/17 08:24 93 Nasal Cannula 3.00 09/18/17 08:11 98.2 111 18 138/88 (105) 93 09/18/17 07:51 92 Nasal Cannula 3.00 09/18/17 04:55 98.5 104 18 139/88 (105) 93 09/17/17 23:49 98.6 108 18 135/76 (95) 97 09/17/17 20:25 98.3 97 19 144/86 (105) 96 09/17/17 20:25 96 Nasal Cannula 3.00 09/17/17 19:11 93 Nasal Cannula 2.00 09/18/17 09/18/17 09/18/17 06:59 14:59 22:59 Intake Total 600 ml Output Total 150 ml Balance 450 ml Result Diagram: 09/18/17 0500 09/18/17 0500 Laboratory Results Laboratory Tests Test 09/18/17 05:00 White Blood Count 5.7 TH/MM3 Red Blood Count 3.88 MIL/MM3 Hemoglobin 11.0 GM/DL Hematocrit 33.7 % Mean Corpuscular Volume 86.7 FL Mean Corpuscular Hemoglobin 28.3 PG Mean Corpuscular Hemoglobin Concent 32.7 % Red Cell Distribution Width 18.6 % Platelet Count 195 TH/MM3 Mean Platelet Volume 7.6 FL Neutrophils (%) (Auto) 82.3 % Lymphocytes (%) (Auto) 5.5 % Monocytes (%) (Auto) 8.6 % Eosinophils (%) (Auto) 3.3 % Basophils (%) (Auto) 0.3 % Neutrophils # (Auto) 4.7 TH/MM3 Lymphocytes # (Auto) 0.3 TH/MM3 Monocytes # (Auto) 0.5 TH/MM3 Eosinophils # (Auto) 0.2 TH/MM3 Basophils # (Auto) 0.0 TH/MM3 CBC Comment AUTO DIFF Differential Total Cells Counted 100 Neutrophils % (Manual) 87 % Band Neutrophils % 1 % Lymphocytes % 4 % Monocytes % 3 % Eosinophils % 2 % Neutrophils # (Manual) 5.2 TH/MM3 Myelocytes 3 % Nucleated Red Blood Cells 1 /100 WBC Differential Comment FINAL DIFF MANUAL Platelet Estimate NORMAL Platelet Morphology Comment NORMAL Tear Drop Cells 1+ Ovalocytes 1+ Blood Urea Nitrogen 14 MG/DL Creatinine 0.84 MG/DL Random Glucose 107 MG/DL Total Protein 6.4 GM/DL Albumin 2.7 GM/DL Calcium Level 8.7 MG/DL Alkaline Phosphatase 59 U/L Aspartate Amino Transf (AST/SGOT) 18 U/L Alanine Aminotransferase (ALT/SGPT) 59 U/L Total Bilirubin 0.3 MG/DL Sodium Level 142 MEQ/L Potassium Level 3.7 MEQ/L Chloride Level 103 MEQ/L Carbon Dioxide Level 32.6 MEQ/L Anion Gap 6 MEQ/L Estimat Glomerular Filtration Rate 100 ML/MIN Culture Results Microbiology Date/Time Source Procedure Growth Status 09/16/17 13:49 Fluid Pleural Fluid Fungal Smear - Final NO FUNGAL ELEMENTS SEEN. Resulted 09/16/17 13:49 Fluid Pleural Fluid Fungal Culture Pending Resulted 09/16/17 13:49 Fluid Pleural Fluid Acid Fast Stain Pending Received 09/16/17 13:49 Fluid Pleural Fluid Mycobacterial Culture Pending Received 09/16/17 13:49 Fluid Pleural Fluid Gram Stain - Final Resulted 09/16/17 13:49 Fluid Pleural Fluid Body Fluid Culture - Preliminary NO GROWTH IN 48 HOURS. Resulted 09/16/17 14:00 Wound Lung Fungal Smear - Final NO FUNGAL ELEMENTS SEEN. Resulted 09/16/17 14:00 Wound Lung Fungal Culture Pending Resulted 09/16/17 14:00 Wound Lung Acid Fast Stain Pending Received 09/16/17 14:00 Wound Lung Mycobacterial Culture Pending Received 09/16/17 14:00 Wound Lung Gram Stain - Final Resulted 09/16/17 14:00 Wound Lung Wound Culture - Preliminary NO GROWTH IN 48 HOURS. Resulted Administered Medications Medications (Trade) Dose Ordered Sig/Suzan Route PRN Reason Start Time Stop Time Status Last Admin Dose Admin Enoxaparin Sodium (Lovenox Inj) 40 mg Q24H SQ 09/09/17 16:00 Future Hold 09/15/17 15:51 Senna/Docusate Sodium (Naa-Colace) 1 tab BID PO 09/09/17 21:00 09/18/17 08:20 Sennosides (Senokot) 17.2 mg Q12H PRN PO Moderate constipation 09/09/17 15:15 09/16/17 16:51 Lactulose (Lactulose Liq) 30 ml DAILY PRN PO SEVERE CONSITIPATION 09/09/17 15:15 09/13/17 08:24 Heparin Sodium (Porcine) (Heparin Central Flush) 500 units UNSCH IV FLUSH 09/09/17 15:30 09/16/17 04:33 Voriconazole (Vfend) 200 mg Q12H PO 09/12/17 18:00 09/18/17 04:55 Al Hydrox/Mg Hydrox/Simethicone (Mag-Al Plus Susp Liq) 30 ml Q6H PRN PO DYSPEPSIA OR HEARTBURN 09/12/17 08:30 09/12/17 09:52 Lorazepam (Ativan) 0.5 mg Q6H PRN PO anxiety 09/12/17 12:45 09/18/17 11:21 Azithromycin (Zithromax) 500 mg DAILY PO 09/13/17 09:00 09/18/17 08:20 Prednisone (Deltasone) 40 mg DAILY PO 09/14/17 09:00 09/18/17 08:20 Albuterol/ Ipratropium (Duoneb Neb) 1 ampule Q4HR NEB PRN NEB cough 09/14/17 11:30 09/16/17 03:59 Sodium Chloride (NS Flush) 2 ml BID IV FLUSH 09/16/17 21:00 09/18/17 08:23 Cefazolin Sodium 500 mg/Sodium Chloride 505 ml @ 0 mls/hr ASSISTANT DIRECTOR [employer]ATION 09/16/17 10:00 09/23/17 09:59 09/16/17 13:57 Docusate Calcium (Surfak) 240 mg HS PO 09/16/17 21:00 09/17/17 20:36 Albuterol/ Ipratropium (Duoneb Neb) 1 ampule Q6HR WHILE AWAKE NEB NEB 09/17/17 14:00 09/18/17 14:20 Acetaminophen (Tylenol) 325 mg Q6HR PRN PO fever or bone pain 09/17/17 09:45 09/18/17 11:21 Morphine Sulfate (Oramorph Sr) 15 mg Q12HR PO 09/17/17 21:00 09/18/17 08:20 Pantoprazole Sodium (Protonix) 40 mg DAILY PO 09/18/17 09:00 09/18/17 08:20 Morphine Sulfate (Morphine Inj) 10 mg Q3H PRN IV PUSH BREAKTHROUGH ( PT PREFERENCE) 09/17/17 20:30 09/18/17 16:19 Objective Remarks GENERAL: Young male sitting up in bed in no obvious distress SKIN: Warm and dry. HEAD: Normocephalic. EYES: No injection or drainage. NECK: Supple, trachea midline. CARDIOVASCULAR: Regular rate and rhythm without murmurs. Mildly tachycardic RESPIRATORY: Scattered rhonchi to right lung. Chest tube with serosanguineous drainage noted on right GASTROINTESTINAL: Abdomen soft, non-tender, nondistended. EXTREMITIES: No cyanosis, or edema. MUSCULOSKELETAL: Adequate muscle tone. NEUROLOGICAL: No obvious focal deficit. Awake, alert, and oriented x3. Assessment/Plan Problem List: (1) Pneumonia ICD Codes: J18.9 - Pneumonia, unspecified organism Status: Acute Plan: --repeat CT chest shows worsening PNA and new left sided infiltrate with small pleural effusion. --unclear etiology --on VFEND --ID following. --CTS following, planning on VATS with right lung biopsy today, 09/16 (2) T-cell lymphoma ICD Codes: C85.90 - Non-Hodgkin lymphoma, unspecified, unspecified site Status: Chronic Plan: --concern for recurrence --in remission --received CHOP chemotherapy in clinic. Assessment 42y/o male with T-cell lymphoma admitted with worsening right lung infiltrate. Plan 1. Continue supportive care with pain medications. Will likely start to wean tomorrow 2. Await biopsy results Attending Statement The exam, history, and the medical decision-making described in the above note were completed with the assistance of the mid-level provider. I reviewed and agree with the findings presented. I attest that I had a [id number] encounter with the patient on the same day, and personally performed and documented my assessment and findings in the medical record. Pt seen and examined. Appetite good, pain well controlled. Discussed cytology and lung bx negative for lymphoma. Will work with ID and supervisor of instruction to tx pneumonitis. Problem Qualifiers (1) Pneumonia: Qualified Codes: J18.9 - Pneumonia, unspecified organism Karyn Julien September 18, 2017 16:53 Aysha Leigh MD September 18, 2017 18:31
[2017-09-18] MEDS: DOCUSATE CALCIUM 240 MG CAP PO SCH (19:28)
--- NOTE | 2017-09-18 20:07 | HHI.PR ---
Subjective Remarks 42 YOWM with T-cell lymphoma, S/P CHOP therapy has Bilat infilt had bronch, BAL brushing and bx done No fever or chills Had Rt VATS, Rt lung bx pain Better controlled with IV MS Ambulates Objective Vital Signs Vital Signs Date Time Temp Pulse Resp B/P (MAP) Pulse Ox O2 Delivery O2 Flow Rate FiO2 09/18/17 20:04 97 Nasal Cannula 3.00 09/18/17 19:41 98.3 106 18 141/87 (105) 97 09/18/17 19:41 97 Nasal Cannula 3.00 09/18/17 15:11 98.6 98 18 125/94 (104) 96 09/18/17 11:52 93 Nasal Cannula 3.00 09/18/17 11:18 98.7 111 18 136/93 (107) 93 09/18/17 08:24 93 Nasal Cannula 3.00 09/18/17 08:11 98.2 111 18 138/88 (105) 93 09/18/17 07:51 92 Nasal Cannula 3.00 09/18/17 04:55 98.5 104 18 139/88 (105) 93 09/17/17 23:49 98.6 108 18 135/76 (95) 97 09/17/17 20:25 98.3 97 19 144/86 (105) 96 09/17/17 20:25 96 Nasal Cannula 3.00 I/O 09/17/17 09/17/17 09/17/17 09/18/17 09/18/17 09/18/17 07:00 15:00 23:00 07:00 15:00 23:00 Intake Total 480 ml 100 ml 2100 ml 600 ml 2000 ml Output Total 300 ml 450 ml 335 ml 150 ml 180 ml Balance 180 ml -350 ml 1765 ml 450 ml 1820 ml Intake Oral 480 ml 2000 ml 600 ml 2000 ml IV Total 100 ml 100 ml Output Urine Total 300 ml Chest Tube Drainage Total 450 ml 335 ml 150 ml 180 ml # Voids 4 3 4 # Bowel Movements 0 0 Result Diagram: 09/18/17 0500 09/18/17 0500 Objective Remarks GENERAL: WBWN WM,NAD SKIN: Warm and dry. HEAD: Normocephalic. EYES: No scleral icterus. No injection or drainage. NECK: Supple, trachea midline. No JVD or lymphadenopathy. CARDIOVASCULAR: Regular rate and rhythm without murmurs, gallops, or rubs. RESPIRATORY: Breath sounds equal bilaterally. No accessory muscle use. GASTROINTESTINAL: Abdomen soft, non-tender, nondistended. MUSCULOSKELETAL: No cyanosis, or edema. BACK: Nontender without obvious deformity. No CVA tenderness. A/P Assessment and Plan IMPRESSION: 1. Extensive right lung infiltrate and infiltrate in the lingula. Differential diagnosis includes fungal infection, opportunistic infection, bacterial pneumonia on top of that and also possibility of extension of lymphoma. 2. Bronchial asthma. 3. Small pleural effusion. 4. S/P Rt VATS and bx PLAN: cont Abx per ID IV Solumedrol. Supplement 02 Chest tube to suction. nebs to prn Ambulate. Francis Aleman MD September 18, 2017 20:07
[2017-09-19] VITALS (9 sets, daily range): BP systolic 134–149; BP diastolic 86–93; PULSE 102–133; RESP 18–20; TEMP 97.4–98.8; O2SAT 92–98
[2017-09-19] MEDS: LORazepam 0.5 MG TAB PO PRN ×4 (00:39→21:13)
[2017-09-19] MEDS: ACETAMINOPHEN 325 MG TAB PO PRN ×4 (00:39→21:13)
[2017-09-19] MEDS: MORPHINE SULFATE 4 MG/ML INJ IV PUSH PRN ×6 (04:45→21:01)
[2017-09-19] MEDS: VORICONAZOLE 200 MG TAB PO SCH ×2 (04:45→17:56)
[2017-09-19 06:47] LABS: AUTOMATED NEUTROPHIL # 4.4 TH/MM3 (1.8-7.7); BASOPHIL % 0.2 % (0.0-2.0); EOSINOPHIL # 0.2 TH/MM3 (0-0.4); HEMOGLOBIN 11.2 GM/DL (13.0-17.0); LYMPH % 7.1 % (9.0-44.0); LYMPHOCYTE # 0.4 TH/MM3 (1.0-4.8); MEAN CELL VOLUME 87.8 FL (80.0-100.0); MEAN CORPUSCULAR HEMOGLOBIN 28.9 PG (27.0-34.0); MEAN CORPUSCULAR HGB CONC 32.9 % (32.0-36.0); MEAN PLATELET VOLUME 7.5 FL (7.0-11.0); MONO % 10.2 % (0.0-8.0); MONOCYTE # 0.6 TH/MM3 (0-0.9); NEUT % 78.5 % (16.0-70.0); PLATELET COUNT 196 TH/MM3 (150-450); RED BLOOD COUNT 3.87 MIL/MM3 (4.50-5.90); RED CELL DISTRIBUTION WIDTH 18.7 % (11.6-17.2); WHITE BLOOD COUNT 5.6 TH/MM3 (4.0-11.0)
[2017-09-19 07:05] LABS: BICARBONATE 32.5 MEQ/L (21.0-32.0); CALCIUM 9.1 MG/DL (8.5-10.1); CREATININE 0.84 MG/DL (0.60-1.30)
[2017-09-19] MEDS: DOCUSATE SODIUM 50 MG/SENNA 8.6 MG TAB PO SCH ×2 (08:23→21:00)
[2017-09-19] MEDS: PANTOPRAZOLE SOD 40 MG DELAYED RELEASE TAB PO SCH (08:23)
[2017-09-19] MEDS: predniSONE 20 MG TAB PO SCH (08:23)
[2017-09-19] MEDS: AZITHROMYCIN 250 MG TAB PO SCH (08:23)
[2017-09-19] MEDS: SODIUM CHLORIDE 0.9% FLUSH 10 ML FLUSH IV FLUSH SCH ×2 (08:24→21:05)
[2017-09-19] MEDS: MORPHINE SULFATE 15 MG CONTROLLED RELEASE TAB PO SCH ×2 (08:24→21:00)
[2017-09-19 10:01] LABS: BANDS 5 % (0-6); LYMPHOCYTES 10 % (9-44); METAMYELOCYTES 2 % (0-1); MONOCYTES 7 % (0-8); MYELOCYTES 1 % (0-0); NEUTROPHIL # MANUAL DIFF 4.4 TH/MM3 (1.8-7.7); OVALOCYTES 1+ (NORMAL); POLYS (SEG NEUTROPHILS) 70 % (16-70); TEARDROP RBCS 1+ (NORMAL)
[2017-09-19] MEDS ORDERED: POTASSIUM CHLORIDE 10 MEQ CONTROLLED RELEASE TAB PO ONE (10:30)
[2017-09-19] MEDS: RESP: ALBUTEROL 2.5 MG/IPRATROPIUM 0.5 MG NEB (SCH) NEB ×3 (10:30→20:29)
--- NOTE | 2017-09-19 10:41 | PD.CAR.PN ---
CVT Progress Note Subjective/Hospital Course: 42/ male hx T-cell lymphoma responding to CHOP chemotherapy. He was in remission on a CT-PET scan in 06/2017 Bronch was inconclusive surgery 09/16 1. Right Video-Assisted Thoracoscopic Surgery (VATS). 2. Right Upper Lobe Biopsy 3. 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 , scheduled nebs OOB, PT 09/18 continue chest tube to suction pul toileting 09/19 no air leak in chest tube place on water seal OOB ambulate/ wean 02 pain controlled path resulted no evidence of malignancy / ORGANIZING DIFFUSE ALVEOLAR DAMAGE ( ACUTE LUNG INJURY) WEDGE LUNG BIOPSY, check CXR in am / additional GI motility meds given Objective: Vital Signs Date Time Temp Pulse Resp B/P (MAP) Pulse Ox O2 Delivery O2 Flow Rate FiO2 09/19/17 08:21 98.4 104 20 140/89 (106) 96 09/19/17 08:21 Nasal Cannula 3.00 Humidified 09/19/17 05:38 106 09/19/17 04:37 98.8 130 19 149/93 (111) 92 09/18/17 23:16 98.5 101 16 154/98 (116) 95 09/18/17 20:04 97 Nasal Cannula 3.00 09/18/17 19:41 98.3 106 18 141/87 (105) 97 09/18/17 19:41 97 Nasal Cannula 3.00 09/18/17 15:11 98.6 98 18 125/94 (104) 96 09/18/17 11:52 93 Nasal Cannula 3.00 09/18/17 11:18 98.7 111 18 136/93 (107) 93 Labs: Laboratory Tests Test 09/19/17 04:55 White Blood Count 5.6 TH/MM3 (4.0-11.0) Red Blood Count 3.87 MIL/MM3 (4.50-5.90) Hemoglobin 11.2 GM/DL (13.0-17.0) Hematocrit 34.0 % (39.0-51.0) Mean Corpuscular Volume 87.8 FL (80.0-100.0) Mean Corpuscular Hemoglobin 28.9 PG (27.0-34.0) Mean Corpuscular Hemoglobin Concent 32.9 % (32.0-36.0) Red Cell Distribution Width 18.7 % (11.6-17.2) Platelet Count 196 TH/MM3 (150-450) Mean Platelet Volume 7.5 FL (7.0-11.0) Neutrophils (%) (Auto) 78.5 % (16.0-70.0) Lymphocytes (%) (Auto) 7.1 % (9.0-44.0) Monocytes (%) (Auto) 10.2 % (0.0-8.0) Eosinophils (%) (Auto) 4.0 % (0.0-4.0) Basophils (%) (Auto) 0.2 % (0.0-2.0) Neutrophils # (Auto) 4.4 TH/MM3 (1.8-7.7) Lymphocytes # (Auto) 0.4 TH/MM3 (1.0-4.8) Monocytes # (Auto) 0.6 TH/MM3 (0-0.9) Eosinophils # (Auto) 0.2 TH/MM3 (0-0.4) Basophils # (Auto) 0.0 TH/MM3 (0-0.2) CBC Comment AUTO DIFF Differential Total Cells Counted 100 Neutrophils % (Manual) 70 % (16-70) Band Neutrophils % 5 % (0-6) Lymphocytes % 10 % (9-44) Monocytes % 7 % (0-8) Eosinophils % 5 % (0-4) Neutrophils # (Manual) 4.4 TH/MM3 (1.8-7.7) Metamyelocytes 2 % (0-1) Myelocytes 1 % (0-0) Differential Comment FINAL DIFF MANUAL Platelet Estimate NORMAL (NORMAL) Platelet Morphology Comment NORMAL (NORMAL) Tear Drop Cells 1+ (NORMAL) Ovalocytes 1+ (NORMAL) Blood Urea Nitrogen 14 MG/DL (7-18) Creatinine 0.84 MG/DL (0.60-1.30) Random Glucose 115 MG/DL (74-106) Calcium Level 9.1 MG/DL (8.5-10.1) Sodium Level 144 MEQ/L (136-145) Potassium Level 3.5 MEQ/L (3.5-5.1) Chloride Level 105 MEQ/L (98-107) Carbon Dioxide Level 32.5 MEQ/L (21.0-32.0) Anion Gap 7 MEQ/L (5-15) Estimat Glomerular Filtration Rate 100 ML/MIN (>89) Result Diagram: 09/19/1745409/19/17454 (1) T-cell lymphoma (2) Pleural effusion (3) Right Video-Assisted Thoracoscopic Surgery (VATS). Plan: pulm toileting nebs ezpap , acapella OOB , ambulate path neg for malignancy chest tube to water seal / eval for removal in [facility] September 19, 2017 10:41
[2017-09-19] MEDS ORDERED: MORPHINE SULFATE 15 MG CONTROLLED RELEASE TAB PO ONE (11:00)
[2017-09-19] MEDS: POLYETHYLENE GLYCOL 17 GM PKG PO SCH (11:22)
[2017-09-19] MEDS: DOCUSATE SODIUM 100 MG CAP PO SCH ×2 (11:22→21:02)
--- NOTE | 2017-09-19 11:34 | HHI.FPPN ---
Subjective Remarks Overnight had difficulty with pain control regimen. Otherwise no acute events. No CP/SOB. NO abdominal pain. (Yuniel Dwyer MD R2) Objective Vitals Vital Signs Date Time Temp Pulse Resp B/P (MAP) Pulse Ox O2 Delivery O2 Flow Rate FiO2 09/19/17 10:36 93 Nasal Cannula 3.00 09/19/17 08:21 98.4 104 20 140/89 (106) 96 09/19/17 08:21 Nasal Cannula 3.00 Humidified 09/19/17 05:38 106 09/19/17 04:37 98.8 130 19 149/93 (111) 92 09/18/17 23:16 98.5 101 16 154/98 (116) 95 09/18/17 20:04 97 Nasal Cannula 3.00 09/18/17 19:41 98.3 106 18 141/87 (105) 97 09/18/17 19:41 97 Nasal Cannula 3.00 09/18/17 15:11 98.6 98 18 125/94 (104) 96 09/18/17 11:52 93 Nasal Cannula 3.00 I/O 09/18/17 09/18/17 09/18/17 09/19/17 09/19/17 09/19/17 07:00 15:00 23:00 07:00 15:00 23:00 Intake Total 600 ml 2000 ml Output Total 150 ml 180 ml 130 ml Balance 450 ml 1820 ml -130 ml Intake Oral 600 ml 2000 ml Chest Tube Drainage Total 150 ml 180 ml 130 ml # Voids 3 4 # Bowel Movements 0 (Yuniel Dwyer MD R2) Result Diagram: 09/19/17 0455 09/19/17 0455 Imaging Last Impressions Chest X-Ray 09/17/17 0500 Signed Impressions: Service Date/Time: Sunday, September 17, 2017 06:08 - CONCLUSION: 1. Persistent volume loss with extensive consolidation in the right hemithorax. Stable right apical pneumothorax. 2. Right-sided thoracostomy tube. Tube appears to been pulled back slightly with the side-port now positioned at the chest wall. Alonso Leonardo MD Chest CT 09/14/17 0800 Signed Impressions: Service Date/Time: Thursday, September 14, 2017 13:01 - CONCLUSION: There is increased consolidation on the right and slight increase in right effusion with mild mediastinal shift to the right consistent with mild volume loss. New left lower lobe infiltrate. Himanshu Cleaning MD Objective Remarks GENERAL: This is a well-nourished, well-developed patient, sitting up in bed in NAD CARDIOVASCULAR: Regular rate and rhythm without murmurs, gallops, or rubs. RESPIRATORY: Breath sounds diminished on R lower lobe. Crackles noted throughout right lung. Coarse breath sounds on left lower lobe. Chest tube in place, dressing c/d/i. GASTROINTESTINAL: Abdomen slightly distended, soft, non-tender. MUSCULOSKELETAL: Extremities without clubbing, cyanosis, or edema. No calf tenderness. NEUROLOGICAL: Awake and alert. Motor and sensory grossly within normal limits. Normal speech. Medications and IVs Current Medications Medications (Trade) Dose Ordered Sig/Suzan Route Start Time Stop Time Status Last Admin (Lovenox Inj) 40 mg Q24H SQ 09/09/17 16:00 Future hold 09/15/17 15:51 (Narcan Inj) 0.4 mg UNSCH PRN IV PUSH 09/09/17 15:15 (Naa-Colace) 1 tab BID PO 09/09/17 21:00 09/19/17 08:23 (Senokot) 17.2 mg Q12H PRN PO 09/09/17 15:15 09/16/17 16:51 (Dulcolax Supp) 10 mg DAILY PRN RECTAL 09/09/17 15:15 (Lactulose Liq) 30 ml DAILY PRN PO 09/09/17 15:15 09/13/17 08:24 (Heparin Central Flush) 500 units UNSCH IV FLUSH 09/09/17 15:30 09/16/17 04:33 (Proair Hfa Inh) 2 puff Q6H PRN INH 09/09/17 16:30 (Vfend) 200 mg Q12H PO 09/12/17 18:00 09/19/17 04:45 (Mag-Al Plus Susp Liq) 30 ml Q6H PRN PO 09/12/17 08:30 09/12/17 09:52 (Tums Chew) 500 mg Q6H PRN CHEW 09/12/17 08:30 (Ativan) 0.5 mg Q6H PRN PO 09/12/17 12:45 09/19/17 07:33 (Deltasone) 40 mg DAILY PO 09/14/17 09:00 09/19/17 08:23 (Pill Splitter) 1 ea UNSCH PRN OTHER 09/13/17 19:15 (Duoneb Neb) 1 ampule Q4HR NEB PRN NEB 09/14/17 11:30 09/16/17 03:59 (Cathflo Activase Inj) 2 mg Q2H PRN INTRACATH 09/16/17 10:00 (NS Flush) 2 ml BID IV FLUSH 09/16/17 21:00 09/19/17 08:24 (NS Flush) 2 ml UNSCH PRN IV FLUSH 09/16/17 09:45 Cefazolin Sodium 500 mg/Sodium Chloride 505 ml @ 0 mls/hr C T TECH IRRIGATION 09/16/17 10:00 09/23/17 09:59 09/16/17 13:57 Cefazolin Sodium/ Dextrose 50 ml @ 150 mls/hr C T TECH IV 09/16/17 10:00 09/23/17 09:59 (Zofran Inj) 4 mg Q6H PRN IV PUSH 09/16/17 14:30 (Surfak) 240 mg HS PO 09/16/17 21:00 09/18/17 19:28 (Milk Of Magnesia Liq) 30 ml DAILY PRN PO 09/16/17 14:30 (Duoneb Neb) 1 ampule Q6HR WHILE AWAKE NEB NEB 09/17/17 14:00 09/19/17 10:30 (Tylenol) 325 mg Q6HR PRN PO 09/17/17 09:45 09/19/17 07:33 (Protonix) 40 mg DAILY PO 09/18/17 09:00 09/19/17 08:23 (Morphine Inj) 8 mg Q3H PRN IV PUSH 09/19/17 11:30 (Oramorph Sr) 30 mg Q12HR PO 09/19/17 21:00 (Colace) 100 mg BID PO 09/19/17 10:30 (Miralax) 17 gm DAILY PO 09/19/17 10:30 (Yuniel Dwyer MD R2) A/P Assessment and Plan Patient is a 42-year-old male with past medical history of T-cell lymphoma presented with: (Yuniel Dwyer MD R2) Attending Attestation Patient seen and examined. Case reviewed and discussed. Agree with plan of care as discussed with me and documented in the resident note. (Azra Santos MD) Problem List: (1) Pneumonia ICD Codes: J18.9 - Pneumonia, unspecified organism Status: Acute Plan: Clinically improved regarding SOB. However, repeat CT chest showed increased consolidation on the right and slight increase right left effusion with mild mediastinal shift to the right consistent with mild volume loss. Patient with recent hospitalization for pneumonia thought to be due to fungal etiology. Patient was discharged on voriconazole and switched to fluconazole by medical oncologist due to side effect of severe bone pain and medical oncology plan plan to extend treatment with fluconazole until patient received bone marrow transplant. On admission patient met sepsis criteria, now resolved Chest x-ray: Increasing infiltrate and density in the right lung with apparent volume loss Fungal workup from prior hospitalization was negative. CT chest with contrast showed worsening right lung infiltrate characteristic of pneumonia. UA negative Legionella and pneumococcal urine antigen negative Blood cultures: No growth 5 days CMV DNA pcr negative Lung bx results: NO MALIGNANT CELLS ID consulted, appreciate recommendations -Continue Azithromycin, voriconazole -hold off resuming broad pna coverage with antibiotics since pt is clinically stable. Consider resuming empiric antibiotic coverage if pt decompensates -Follow bronchial cultures, lung biopsy Cx, pleural fluid cultures Pulmonology consulted, appreciate recs -S/p bronchoscopy 09/11 -F/u culture Oncology consulted, appreciate recs -Pain control with oral and IV morphine PRN CT surgery consulted, appreciate assistance -s/p VATS 09/16, POD #3 -To perform CXR in AM 5/4 and eval for chest tube removal Fungal smear: No fungal elements seen Pleural fluid culture: NGTD Acid-fast, mycobacterial culture, fungal culture: pending Medical plan discussed with patient and and they agreed and showed understanding Incentive spirometry Albuterol nebulizer every 4 hours for shortness of breath prednisone 40 mg QD BAL results: Fungal smear: No fungal elements Acid-fast stain: No acid-fast bacilli Bronchial culture: Light growth normal respiratory edgard Gram stain: no organisms seen Biopsy of right lower lobe of lung: Bronchial mucosa with focal reactive atypia of the basal layers. Fragment of tissue with focal markedly reactive interstitial fibrosis and markedly reactive bronchial epithelial cells. Viral inclusions are not identified. Antibiotic history Vancomycin 09/09-- 09/12 Azithromycin 09/09-- present Zosyn 09/09-- 09/12 Voriconazole po 200 mg 09/09-- present (2) T-cell lymphoma ICD Codes: C85.90 - Non-Hodgkin lymphoma, unspecified, unspecified site Status: Chronic Plan: Diagnosed w/T cell lymphoma in April per biopsy results; s/p CHOP chemotherapy outpatient, follows with Dr. Leigh. Right lung infiltrate infection vs recurrence of T cell lymphoma see plan above (3) Constipation ICD Codes: K59.00 - Constipation, unspecified Status: Acute Plan: Continue to monitor Constipation protocol -Golytely liq at bedside, 8 oz Q20 min PRN (4) Insomnia ICD Codes: G47.00 - Insomnia, unspecified Status: Acute Plan: Patient with c/o of inability to go to sleep due to anxiety c/w ativan 0.5mg PRN Q8h to aid with improved sleep and anxiety sxs (5) Nutrition, metabolism, and development symptoms ICD Codes: R63.8 - Other symptoms and signs concerning food and fluid intake Plan: Fluids: PO only Electrolytes: Replete as needed Nutrition: Regular diet DVT prophylaxis: Lovenox 40 every 24h GI ppx: protonix 40mg IV Pain: Oramorph 30 mg BID, IV morphine 8 mg Q3H PRN Dispo: Pending lung biopsy and results, removal of chest tube (Yuniel Dwyer MD R2) Problem Qualifiers (1) Pneumonia: Qualified Codes: J18.9 - Pneumonia, unspecified organism Yuniel Dwyer MD R2 September 19, 2017 11:34 Azra Santos MD September 20, 2017 18:12
--- NOTE | 2017-09-19 11:36 | PD.ONC.PN ---
Subjective Subjective Remarks Afebrile Patient still with significant amount of drainage from chest tube Reports he has not had a bowel movement in a few days Objective Data Date Time Temp Pulse Resp B/P (MAP) Pulse Ox O2 Delivery O2 Flow Rate FiO2 09/19/17 10:36 93 Nasal Cannula 3.00 09/19/17 08:21 98.4 104 20 140/89 (106) 96 09/19/17 08:21 Nasal Cannula 3.00 Humidified 09/19/17 05:38 106 09/19/17 04:37 98.8 130 19 149/93 (111) 92 09/18/17 23:16 98.5 101 16 154/98 (116) 95 09/18/17 20:04 97 Nasal Cannula 3.00 09/18/17 19:41 98.3 106 18 141/87 (105) 97 09/18/17 19:41 97 Nasal Cannula 3.00 09/18/17 15:11 98.6 98 18 125/94 (104) 96 09/18/17 11:52 93 Nasal Cannula 3.00 09/19/17 09/19/17 09/19/17 07:00 15:00 23:00 Output Total 130 ml Balance -130 ml Result Diagram: 09/19/17 0455 09/19/17 0455 Laboratory Results Laboratory Tests Test 09/19/17 04:55 White Blood Count 5.6 TH/MM3 Red Blood Count 3.87 MIL/MM3 Hemoglobin 11.2 GM/DL Hematocrit 34.0 % Mean Corpuscular Volume 87.8 FL Mean Corpuscular Hemoglobin 28.9 PG Mean Corpuscular Hemoglobin Concent 32.9 % Red Cell Distribution Width 18.7 % Platelet Count 196 TH/MM3 Mean Platelet Volume 7.5 FL Neutrophils (%) (Auto) 78.5 % Lymphocytes (%) (Auto) 7.1 % Monocytes (%) (Auto) 10.2 % Eosinophils (%) (Auto) 4.0 % Basophils (%) (Auto) 0.2 % Neutrophils # (Auto) 4.4 TH/MM3 Lymphocytes # (Auto) 0.4 TH/MM3 Monocytes # (Auto) 0.6 TH/MM3 Eosinophils # (Auto) 0.2 TH/MM3 Basophils # (Auto) 0.0 TH/MM3 CBC Comment AUTO DIFF Differential Total Cells Counted 100 Neutrophils % (Manual) 70 % Band Neutrophils % 5 % Lymphocytes % 10 % Monocytes % 7 % Eosinophils % 5 % Neutrophils # (Manual) 4.4 TH/MM3 Metamyelocytes 2 % Myelocytes 1 % Differential Comment FINAL DIFF MANUAL Platelet Estimate NORMAL Platelet Morphology Comment NORMAL Tear Drop Cells 1+ Ovalocytes 1+ Blood Urea Nitrogen 14 MG/DL Creatinine 0.84 MG/DL Random Glucose 115 MG/DL Calcium Level 9.1 MG/DL Sodium Level 144 MEQ/L Potassium Level 3.5 MEQ/L Chloride Level 105 MEQ/L Carbon Dioxide Level 32.5 MEQ/L Anion Gap 7 MEQ/L Estimat Glomerular Filtration Rate 100 ML/MIN Culture Results Microbiology Date/Time Source Procedure Growth Status 09/16/17 13:49 Fluid Pleural Fluid Fungal Smear - Final NO FUNGAL ELEMENTS SEEN. Resulted 09/16/17 13:49 Fluid Pleural Fluid Fungal Culture Pending Resulted 09/16/17 13:49 Fluid Pleural Fluid Acid Fast Stain Pending Received 09/16/17 13:49 Fluid Pleural Fluid Mycobacterial Culture Pending Received 09/16/17 13:49 Fluid Pleural Fluid Gram Stain - Final Complete 09/16/17 13:49 Fluid Pleural Fluid Body Fluid Culture - Final NO GROWTH IN 72 HRS.--AEROBICALLY OR ... Complete 09/16/17 14:00 Wound Lung Fungal Smear - Final NO FUNGAL ELEMENTS SEEN. Resulted 09/16/17 14:00 Wound Lung Fungal Culture Pending Resulted 09/16/17 14:00 Wound Lung Acid Fast Stain Pending Received 09/16/17 14:00 Wound Lung Mycobacterial Culture Pending Received 09/16/17 14:00 Wound Lung Gram Stain - Final Complete 09/16/17 14:00 Wound Lung Wound Culture - Final NO GROWTH IN 72 HRS.--AEROBICALLY OR ... Complete Administered Medications Medications (Trade) Dose Ordered Sig/Suzan Route PRN Reason Start Time Stop Time Status Last Admin Dose Admin Enoxaparin Sodium (Lovenox Inj) 40 mg Q24H SQ 09/09/17 16:00 Future hold 09/15/17 15:51 Senna/Docusate Sodium (Naa-Colace) 1 tab BID PO 09/09/17 21:00 09/19/17 08:23 Sennosides (Senokot) 17.2 mg Q12H PRN PO Moderate constipation 09/09/17 15:15 09/16/17 16:51 Lactulose (Lactulose Liq) 30 ml DAILY PRN PO SEVERE CONSITIPATION 09/09/17 15:15 09/13/17 08:24 Heparin Sodium (Porcine) (Heparin Central Flush) 500 units UNSCH IV FLUSH 09/09/17 15:30 09/16/17 04:33 Voriconazole (Vfend) 200 mg Q12H PO 09/12/17 18:00 09/19/17 04:45 Al Hydrox/Mg Hydrox/Simethicone (Mag-Al Plus Susp Liq) 30 ml Q6H PRN PO DYSPEPSIA OR HEARTBURN 09/12/17 08:30 09/12/17 09:52 Lorazepam (Ativan) 0.5 mg Q6H PRN PO anxiety 09/12/17 12:45 09/19/17 07:33 Prednisone (Deltasone) 40 mg DAILY PO 09/14/17 09:00 09/19/17 08:23 Albuterol/ Ipratropium (Duoneb Neb) 1 ampule Q4HR NEB PRN NEB cough 09/14/17 11:30 09/16/17 03:59 Sodium Chloride (NS Flush) 2 ml BID IV FLUSH 09/16/17 21:00 09/19/17 08:24 Cefazolin Sodium 500 mg/Sodium Chloride 505 ml @ 0 mls/hr ELASTIC CUTTER IRRIGATION 09/16/17 10:00 09/23/17 09:59 09/16/17 13:57 Docusate Calcium (Surfak) 240 mg HS PO 09/16/17 21:00 09/18/17 19:28 Albuterol/ Ipratropium (Duoneb Neb) 1 ampule Q6HR WHILE AWAKE NEB NEB 09/17/17 14:00 09/19/17 10:30 Acetaminophen (Tylenol) 325 mg Q6HR PRN PO fever or bone pain 09/17/17 09:45 09/19/17 07:33 Pantoprazole Sodium (Protonix) 40 mg DAILY PO 09/18/17 09:00 09/19/17 08:23 Objective Remarks GENERAL: Young male sitting up in bed in no obvious distress SKIN: Warm and dry. HEAD: Normocephalic. EYES: No injection or drainage. NECK: Supple, trachea midline. CARDIOVASCULAR: Regular rate and rhythm without murmurs. Mildly tachycardic RESPIRATORY: Mild rhonchi/wheeze to right lung. Chest tube with serosanguineous drainage noted on right GASTROINTESTINAL: Abdomen soft, non-tender, nondistended. EXTREMITIES: No cyanosis, or edema. MUSCULOSKELETAL: Adequate muscle tone. NEUROLOGICAL: No obvious focal deficit. Awake, alert, and oriented x3. Assessment/Plan Problem List: (1) Pneumonia ICD Codes: J18.9 - Pneumonia, unspecified organism Status: Acute Plan: --repeat CT chest shows worsening PNA and new left sided infiltrate with small pleural effusion. --Pathology from VATS procedure on 09/16 shows no lymphoma involvement --on VFEND --ID following. 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 Assessment 42y/o male with T-cell lymphoma admitted with worsening right lung infiltrate. Plan 1. Discussed with patient- he is comfortable to decrease the amount of the IV morphine. I did discuss with him that we can increase the long-acting and decrease the IV morphine to 8 mg IV as needed and he is okay with this plan. The goal is to completely wean him off of the IV pain medication, however this will likely stay in place until after the chest tube is been removed. 2. Continue to monitor CBC 3. Supportive care Attending Statement The exam, history, and the medical decision-making described in the above note were completed with the assistance of the mid-level provider. I reviewed and agree with the findings presented. I attest that I had a [id number] encounter with the patient on the same day, and personally performed and documented my assessment and findings in the medical record. Pt seen and examined, chest tube in place, appetite robust. Discussed plan for steroids and Voriconazole as prophylaxis prior to BMT/ treatment pending final cultures. Steroids continue for pneumonitis. Anticipate OK for DC pending DC chest tube. Problem Qualifiers (1) Pneumonia: Qualified Codes: J18.9 - Pneumonia, unspecified organism Karyn Julien September 19, 2017 11:36 Aysha Leigh MD September 19, 2017 14:41
--- NOTE | 2017-09-19 14:05 | HHI.IDPN ---
Subjective Subjective Remarks Mr. 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 Patient is known to me from his last admission. He reports he underwent 6 sessions of chemotherapy and Radiation therapy so far. He went into remission and CT PET scan from 06/2017 was clear. He follows with of Oncology. He continued on CHOP chemotherapy. In early part of July patient was short of breath. He went to an urgent care in [place] and due to worsening Shortness of breath was admitted to hospital. CXR and CT chest during that admission was diffuse bilateral scattered infiltrates. He did not respond to IV antibiotics but when voriconazole was empirically added he responded well and was discharged home. He completed a 2 week course of voriconazole and improved significantly. His only complaint in the 2 week period was the joint pains. He saw in follow up. She switched him to oral Diflucan with a plan to keep him on it till after chemo and BMTs if determined as candidate. He reports that within 2-3 days of this change he felt worse significantly and now represents to hospital with worsening shortness of breath. Upon discussion with admitting team patient had difficulty completing sentences yesterday and would get winded but today looked much improved on regimen of IV antibiotics, atypical coverage with Azithro and Voriconazole that was empirically restarted yday. At the time of my evaluation, patient is on regular floor. At time of my visit patient was seen by Pulmonology and / residency team. He was sitting up in bed with knees folded appeared comfortable, able to complete sentences. He reported improvement in symptoms since admission and the admitting team echoed similarly. No fever No rash C/o chest pain on right side. No diarrhea CT chest worsening on repeat s/p open lung biopsy Antibiotics Azithro Voriconazole. Lines Line sites with no e.o infection Past Medical History Past Medical History T-cell lymphoblastic lymphoma. Asthma. History of herniated disk. recurrent pneumonia Past Surgical History Port placement, thoracentesis, CT-guided biopsy of mediastinal mass Bronchoscopy. Allergies: Coded Allergies: No Known Allergies (Unverified , 09/09/17) Objective . Vital Signs Date Time Temp Pulse Resp B/P (MAP) Pulse Ox O2 Delivery O2 Flow Rate FiO2 5/3/18 11:30 98.4 106 18 137/86 (103) 93 09/19/17 10:36 93 Nasal Cannula 3.00 09/19/17 08:21 98.4 104 20 140/89 (106) 96 09/19/17 08:21 Nasal Cannula 3.00 Humidified 09/19/17 05:38 106 09/19/17 04:37 98.8 130 19 149/93 (111) 92 09/18/17 23:16 98.5 101 16 154/98 (116) 95 09/18/17 20:04 97 Nasal Cannula 3.00 09/18/17 19:41 98.3 106 18 141/87 (105) 97 09/18/17 19:41 97 Nasal Cannula 3.00 09/18/17 15:11 98.6 98 18 125/94 (104) 96 . Laboratory Tests Test 09/18/17 05:00 09/19/17 04:55 White Blood Count 5.7 TH/MM3 5.6 TH/MM3 Red Blood Count 3.88 MIL/MM3 3.87 MIL/MM3 Hemoglobin 11.0 GM/DL 11.2 GM/DL Hematocrit 33.7 % 34.0 % Mean Corpuscular Volume 86.7 FL 87.8 FL Mean Corpuscular Hemoglobin 28.3 PG 28.9 PG Mean Corpuscular Hemoglobin Concent 32.7 % 32.9 % Red Cell Distribution Width 18.6 % 18.7 % Platelet Count 195 TH/MM3 196 TH/MM3 Mean Platelet Volume 7.6 FL 7.5 FL Neutrophils (%) (Auto) 82.3 % 78.5 % Lymphocytes (%) (Auto) 5.5 % 7.1 % Monocytes (%) (Auto) 8.6 % 10.2 % Eosinophils (%) (Auto) 3.3 % 4.0 % Basophils (%) (Auto) 0.3 % 0.2 % Neutrophils # (Auto) 4.7 TH/MM3 4.4 TH/MM3 Lymphocytes # (Auto) 0.3 TH/MM3 0.4 TH/MM3 Monocytes # (Auto) 0.5 TH/MM3 0.6 TH/MM3 Eosinophils # (Auto) 0.2 TH/MM3 0.2 TH/MM3 Basophils # (Auto) 0.0 TH/MM3 0.0 TH/MM3 CBC Comment AUTO DIFF AUTO DIFF Differential Total Cells Counted 100 100 Neutrophils % (Manual) 87 % 70 % Band Neutrophils % 1 % 5 % Lymphocytes % 4 % 10 % Monocytes % 3 % 7 % Eosinophils % 2 % 5 % Neutrophils # (Manual) 5.2 TH/MM3 4.4 TH/MM3 Myelocytes 3 % 1 % Nucleated Red Blood Cells 1 /100 WBC Differential Comment FINAL DIFF MANUAL FINAL DIFF MANUAL Platelet Estimate NORMAL NORMAL Platelet Morphology Comment NORMAL NORMAL Tear Drop Cells 1+ 1+ Ovalocytes 1+ 1+ Metamyelocytes 2 % Laboratory Tests Test 09/18/17 05:00 09/19/17 04:55 Blood Urea Nitrogen 14 MG/DL 14 MG/DL Creatinine 0.84 MG/DL 0.84 MG/DL Random Glucose 107 MG/DL 115 MG/DL Total Protein 6.4 GM/DL Albumin 2.7 GM/DL Calcium Level 8.7 MG/DL 9.1 MG/DL Alkaline Phosphatase 59 U/L Aspartate Amino Transf (AST/SGOT) 18 U/L Alanine Aminotransferase (ALT/SGPT) 59 U/L Total Bilirubin 0.3 MG/DL Sodium Level 142 MEQ/L 144 MEQ/L Potassium Level 3.7 MEQ/L 3.5 MEQ/L Chloride Level 103 MEQ/L 105 MEQ/L Carbon Dioxide Level 32.6 MEQ/L 32.5 MEQ/L Anion Gap 6 MEQ/L 7 MEQ/L Estimat Glomerular Filtration Rate 100 ML/MIN 100 ML/MIN Imaging Last Impressions Chest CT 09/14/17 0800 Signed Impressions: Service Date/Time: Thursday, September 14, 2017 13:01 - CONCLUSION: There is increased consolidation on the right and slight increase in right effusion with mild mediastinal shift to the right consistent with mild volume loss. New left lower lobe infiltrate. Himanshu Cleaning MD Chest X-Ray 09/11/17 0000 Signed Impressions: Service Date/Time: Monday, September 11, 2017 16:50 - CONCLUSION: 1. Interval worsening diffuse infiltrate in the right lung consistent with possible worsening pneumonia. Clinical correlation is recommended. 2. No pneumothorax. Anthony Brewer MD Physical Exam GENERAL: This is a well-nourished, well-developed patient, in no apparent distress. SKIN: No rashes, ecchymoses or lesions. Cool and dry. HEAD: Atraumatic. Normocephalic. No temporal or scalp tenderness. EYES: Pupils equal round and reactive. Extraocular motions intact. No scleral icterus. No injection or drainage. ENT: Nose without bleeding, purulent drainage or septal hematoma. Throat without erythema, tonsillar hypertrophy or exudate. Uvula midline. Airway patent. NECK: Trachea midline. Supple, nontender, no meningeal signs. No LN'jessy CARDIOVASCULAR: HS audible. No murmur. RESPIRATORY: Clear to auscultation. Breath sounds equal bilaterally. Scattered rhonchi. Rt CT in place. GASTROINTESTINAL: Abdomen soft, non-tender, nondistended. No Organomegaly. MUSCULOSKELETAL: Extremities without clubbing, cyanosis, or edema. No joint tenderness, effusion, or edema noted. No calf tenderness. Negative Homans sign bilaterally. NEUROLOGICAL: Awake and alert. Non focal exam Psych cooperative Port site ok. IV line sites with no e.o infection. Assessment & Plan Remarks Recurrent Pneumonia. DDX: Fungal ?? aspergillosis (prior h/o exposure to mold). Fungal cultures from last bronch negative so far but not final. Serologies may not be reliable as patient is immunecompromised. q - pt reports improvement on empiric voriconazole - apparently deals with the above problem since April thoracenthesis back then showed T cell lymphoma cells i n pleural effusion atypical mycobacteria Lymphoma infiltrates seem less likely as CT right side consolidation more s/ o pneumonia rather than lymphoma. Mediastinal LNpathy improved since last treated and seen in hospital. 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 CT findings from today and 09/09 were comparerd reviewed with radiologist: infiltrate has progressed. No cavities to suggest fungal infection Recs TING [place] Continue Voriconazole. Follow 12 lead EKG if symptomatic or atleast once a week. to order EKG today. dagoberto Hemonc [employer] dw patient and spouse. Biopsy results dw them. Dw them plan decided by me and : continue Voriconazole as sampling errors or delayed growth on specimens can occur. kristopher given significant mold exposure history. Please call me with QT interval results. dw pt , @ b/s Sarah Rendon Dr, MD September 19, 2017 14:05
--- NOTE | 2017-09-19 15:20 | HHI.PR ---
Subjective Remarks 42 YOWM with T-cell lymphoma, S/P CHOP therapy has Bilat infilt had bronch, BAL brushing and bx done No fever or chills Had Rt VATS, Rt lung bx pain Better controlled with IV MS Ambulates Chest tube to water seal discussed path results with him Objective Vital Signs Vital Signs Date Time Temp Pulse Resp B/P (MAP) Pulse Ox O2 Delivery O2 Flow Rate FiO2 09/19/17 11:30 98.4 106 18 137/86 (103) 93 09/19/17 10:36 93 Nasal Cannula 3.00 09/19/17 08:21 98.4 104 20 140/89 (106) 96 09/19/17 08:21 Nasal Cannula 3.00 Humidified 09/19/17 05:38 106 09/19/17 04:37 98.8 130 19 149/93 (111) 92 09/18/17 23:16 98.5 101 16 154/98 (116) 95 09/18/17 20:04 97 Nasal Cannula 3.00 09/18/17 19:41 98.3 106 18 141/87 (105) 97 09/18/17 19:41 97 Nasal Cannula 3.00 I/O 09/18/17 09/18/17 09/18/17 09/19/17 09/19/17 09/19/17 07:00 15:00 23:00 07:00 15:00 23:00 Intake Total 600 ml 2000 ml Output Total 150 ml 180 ml 130 ml Balance 450 ml 1820 ml -130 ml Intake Oral 600 ml 2000 ml Chest Tube Drainage Total 150 ml 180 ml 130 ml # Voids 3 4 # Bowel Movements 0 Result Diagram: 09/19/17 0455 09/19/17 0455 Objective Remarks GENERAL: WBWN WM,NAD SKIN: Warm and dry. HEAD: Normocephalic. EYES: No scleral icterus. No injection or drainage. NECK: Supple, trachea midline. No JVD or lymphadenopathy. CARDIOVASCULAR: Regular rate and rhythm without murmurs, gallops, or rubs. RESPIRATORY: Breath sounds equal bilaterally. No accessory muscle use. GASTROINTESTINAL: Abdomen soft, non-tender, nondistended. MUSCULOSKELETAL: No cyanosis, or edema. BACK: Nontender without obvious deformity. No CVA tenderness. A/P Assessment and Plan IMPRESSION: 1. Extensive right lung infiltrate and infiltrate in the lingula. Differential diagnosis includes fungal infection, opportunistic infection, bacterial pneumonia on top of that and also possibility of extension of lymphoma. 2. Bronchial asthma. 3. Small pleural effusion. 4. S/P Rt VATS and bx PLAN: cont Abx per ID IV Solumedrol. Supplement 02 Chest tube to water seal nebs to prn Ambulate. Francis Aleman MD September 19, 2017 15:19
[2017-09-19] MEDS: ENOXAPARIN SODIUM 40 MG/0.4 ML SYRINGE SQ SCH (16:06)
[2017-09-19] MEDS: BISACODYL 10 MG SUPP RECTAL PRN (16:15)
[2017-09-19] MEDS: DOCUSATE CALCIUM 240 MG CAP PO SCH (21:02)
[2017-09-20] VITALS (8 sets, daily range): BP systolic 131–150; BP diastolic 83–91; PULSE 97–110; RESP 16–18; TEMP 97.4–99.1; O2SAT 93–99
[2017-09-20] MEDS: ACETAMINOPHEN 325 MG TAB PO PRN ×3 (03:05→15:23)
[2017-09-20] MEDS: LORazepam 0.5 MG TAB PO PRN ×3 (03:05→15:22)
[2017-09-20] MEDS: MORPHINE SULFATE 4 MG/ML INJ IV PUSH PRN ×4 (03:06→12:30)
--- NOTE | 2017-09-20 05:48 | RADRPT ---
EXAM DATE/TIME: 09/20/2017 04:36 [facility] COMPARISON: CHEST SINGLE AP, September 17, 2017, 6:08. INDICATIONS : Chest tube to water seal- Rule out pneumothorax. MEDICAL HISTORY : Hypertension. t-cell lymphoma,asthma SURGICAL HISTORY : None. ENCOUNTER: Subsequent ACUITY: 1 day PAIN SCORE: Non-responsive. LOCATION: chest FINDINGS: Right thoracostomy tube remains in place. There has been slight increase in right apical pneumothorax with 2.5-3 cm separation of apical pleural air is now present. Diffuse consolidative change is prese nt in the right lung. Left lung is stable and grossly clear. There is rightward cardiomediastinal tootie ft indicating volume loss. Moderate subcutaneous edema along right lateral chest wall. CONCLUSION: Slight increase in right pneumothorax. Stable diffuse consolidative change in the right lung associat ed with volume loss Bienvenido Bear MD on September 20, 2017 at 5:44 Board Certified Radiologist. This report was verified electronically.
[2017-09-20] MEDS: VORICONAZOLE 200 MG TAB PO SCH (06:07)
[2017-09-20] MEDS: BISACODYL 10 MG SUPP RECTAL PRN (06:21)
[2017-09-20] MEDS: RESP: ALBUTEROL 2.5 MG/IPRATROPIUM 0.5 MG NEB (SCH) NEB ×2 (07:37→13:37)
[2017-09-20] MEDS: PANTOPRAZOLE SOD 40 MG DELAYED RELEASE TAB PO SCH (09:24)
[2017-09-20] MEDS: predniSONE 20 MG TAB PO SCH (09:24)
[2017-09-20] MEDS: MORPHINE SULFATE 15 MG CONTROLLED RELEASE TAB PO SCH (09:25)
[2017-09-20] MEDS: DOCUSATE SODIUM 100 MG CAP PO SCH (09:25)
[2017-09-20] MEDS: POLYETHYLENE GLYCOL 17 GM PKG PO SCH (09:25)
[2017-09-20] MEDS: SODIUM CHLORIDE 0.9% FLUSH 10 ML FLUSH IV FLUSH SCH (09:29)
[2017-09-20] MEDS: DOCUSATE SODIUM 50 MG/SENNA 8.6 MG TAB PO SCH (09:48)
--- NOTE | 2017-09-20 11:58 | PD.CAR.PN ---
CVT Progress Note Subjective/Hospital Course: 42/ male hx T-cell lymphoma responding to CHOP chemotherapy. He was in remission on a CT-PET scan in 06/2017 Bronch was inconclusive surgery 09/16 1. Right Video-Assisted Thoracoscopic Surgery (VATS). 2. Right Upper Lobe Biopsy 3. Intercostal Nerve Block 09/17 pt complains of pain, despite IV and po meds morphine sulfate IV added, may need ROUTE MANAGER pump pulm toileting , scheduled nebs OOB, PT 09/18 continue chest tube to suction pul toileting 09/19 no air leak in chest tube place on water seal OOB ambulate/ wean 02 pain controlled path resulted no evidence of malignancy / ORGANIZING DIFFUSE ALVEOLAR DAMAGE ( ACUTE LUNG INJURY) WEDGE LUNG BIOPSY, check CXR in am / additional GI motility meds given 09/[address] Frey no air leak, chest tube dc without difficulty ok to dc home todya from [facility] standpoint, repeat CXR in 2 weeks with outpt follow up continue IS , pt has 02 at home Objective: GENERAL: A&O x 3 SKIN: Warm and dry. dressing in place right chest wall HEAD: Normocephalic. EYES: No scleral icterus. No injection or drainage. NECK: Supple, trachea midline. No JVD or lymphadenopathy. CARDIOVASCULAR: Regular rate and rhythm without murmurs, gallops, or rubs. RESPIRATORY: Breath sounds equal bilaterally. No accessory muscle use. diminished right lung field GASTROINTESTINAL: Abdomen soft, non-tender, nondistended. MUSCULOSKELETAL: No cyanosis, or edema. BACK: Nontender without obvious deformity. No CVA tenderness. Vital Signs Date Time Temp Pulse Resp B/P (MAP) Pulse Ox O2 Delivery O2 Flow Rate FiO2 09/20/17 09:25 Nasal Cannula 3.00 Humidified 09/20/17 09:25 98.3 109 18 140/83 (102) 94 09/20/17 07:38 93 Nasal Cannula 4.00 09/20/17 04:02 98 09/20/17 04:00 97.4 97 16 131/91 (104) 96 09/20/17 00:09 98.3 106 16 141/91 (108) 96 09/20/17 00:06 102 09/19/17 21:07 97.4 105 18 134/92 (106) 95 09/19/17 20:30 98 Nasal Cannula 3.00 09/19/17 20:01 133 09/19/17 20:00 95 Nasal Cannula 3.00 Humidified 09/19/17 16:00 97.8 102 18 141/89 (106) 93 Result Diagram: 09/19/17 0455 09/19/175 Telemetry: NSR (1) T-cell lymphoma (2) Pleural effusion (3) Right Video-Assisted Thoracoscopic Surgery (VATS). Plan: pulm toileting nebs ezsuzannep augustaOB , ambulate path neg for malignancy chest tube removed without difficulty ok to dc from [facility] standpoint Rin Farah September 20, 2017 11:58
--- NOTE | 2017-09-20 13:46 | PD.ONC.PN ---
Subjective Subjective Remarks Afebrile Patient has just had chest tube pulled States he feels "free" Breathing better Looking forward to going home Objective Data Date Time Temp Pulse Resp B/P (MAP) Pulse Ox O2 Delivery O2 Flow Rate FiO2 09/20/17 12:38 98.3 107 18 150/84 (106) 94 09/20/17 09:25 Nasal Cannula 3.00 Humidified 09/20/17 09:25 98.3 109 18 140/83 (102) 94 09/20/17 07:38 93 Nasal Cannula 4.00 09/20/17 04:02 98 09/20/17 04:00 97.4 97 16 131/91 (104) 96 09/20/17 00:09 98.3 106 16 141/91 (108) 96 09/20/17 00:06 102 09/19/17 21:07 97.4 105 18 134/92 (106) 95 09/19/17 20:30 98 Nasal Cannula 3.00 09/19/17 20:01 133 09/19/17 20:00 95 Nasal Cannula 3.00 Humidified 09/19/17 16:00 97.8 102 18 141/89 (106) 93 09/20/17 09/20/17 09/20/17 07:00 15:00 23:00 Intake Total 480 ml Output Total 40 ml Balance 440 ml Result Diagram: 09/19/17 0455 09/19/17 0455 Imaging Studies Last 24 hours Impressions Chest X-Ray 09/20/17 0600 Signed Impressions: Service Date/Time: Wednesday, September 20, 2017 04:36 - CONCLUSION: Slight increase in right pneumothorax. Stable diffuse consolidative change in the right lung associated with volume loss Bienvenido Bear MD Administered Medications Medications (Trade) Dose Ordered Sig/Suzan Route PRN Reason Start Time Stop Time Status Last Admin Dose Admin Enoxaparin Sodium (Lovenox Inj) 40 mg Q24H SQ 09/09/17 16:00 Future hold 09/19/17 16:06 Senna/Docusate Sodium (Naa-Colace) 1 tab BID PO 09/09/17 21:00 09/20/17 09:48 Sennosides (Senokot) 17.2 mg Q12H PRN PO Moderate constipation 09/09/17 15:15 09/16/17 16:51 Bisacodyl (Dulcolax Supp) 10 mg DAILY PRN RECTAL SEVERE CONSITIPATION 09/09/17 15:15 09/20/17 06:21 Lactulose (Lactulose Liq) 30 ml DAILY PRN PO SEVERE CONSITIPATION 09/09/17 15:15 09/13/17 08:24 Heparin Sodium (Porcine) (Heparin Central Flush) 500 units UNSCH IV FLUSH 09/09/17 15:30 09/16/17 04:33 Voriconazole (Vfend) 200 mg Q12H PO 09/12/17 18:00 09/20/17 06:07 Al Hydrox/Mg Hydrox/Simethicone (Mag-Al Plus Susp Liq) 30 ml Q6H PRN PO DYSPEPSIA OR HEARTBURN 09/12/17 08:30 09/12/17 09:52 Lorazepam (Ativan) 0.5 mg Q6H PRN PO anxiety 09/12/17 12:45 09/20/17 09:24 Prednisone (Deltasone) 40 mg DAILY PO 09/14/17 09:00 09/20/17 09:24 Albuterol/ Ipratropium (Duoneb Neb) 1 ampule Q4HR NEB PRN NEB cough 09/14/17 11:30 09/16/17 03:59 Sodium Chloride (NS Flush) 2 ml BID IV FLUSH 09/16/17 21:00 09/20/17 09:29 Sodium Chloride (NS Flush) 2 ml UNSCH PRN IV FLUSH FLUSH AFTER USING IV ACCESS 09/16/17 09:45 09/19/17 11:31 Cefazolin Sodium 500 mg/Sodium Chloride 505 ml @ 0 mls/hr SENIOR PHYSICAL THERAPIST IRRIGATION 09/16/17 10:00 09/23/17 09:59 09/16/17 13:57 Docusate Calcium (Surfak) 240 mg HS PO 09/16/17 21:00 09/19/17 21:02 Albuterol/ Ipratropium (Duoneb Neb) 1 ampule Q6HR WHILE AWAKE NEB NEB 09/17/17 14:00 09/20/17 07:37 Acetaminophen (Tylenol) 325 mg Q6HR PRN PO fever or bone pain 09/17/17 09:45 09/20/17 09:24 Pantoprazole Sodium (Protonix) 40 mg DAILY PO 09/18/17 09:00 09/20/17 09:24 Morphine Sulfate (Morphine Inj) 8 mg Q3H PRN IV PUSH BREAKTHROUGH ( PT PREFERENCE) 09/19/17 11:30 09/20/17 12:30 Morphine Sulfate (Oramorph Sr) 30 mg Q12HR PO 09/19/17 21:00 09/20/17 09:25 Docusate Sodium (Colace) 100 mg BID PO 09/19/17 10:30 09/20/17 09:25 Polyethylene Glycol (Miralax) 17 gm DAILY PO 09/19/17 10:30 09/20/17 09:25 Objective Remarks GENERAL: Young male sitting up in bed in no obvious distress SKIN: Warm and dry. HEAD: Normocephalic. EYES: No injection or drainage. NECK: Supple, trachea midline. CARDIOVASCULAR: Regular rate and rhythm without murmurs. Mildly tachycardic RESPIRATORY: Mild rhonchi/wheeze to right lung; improved from yesterday GASTROINTESTINAL: Abdomen soft, non-tender, nondistended. EXTREMITIES: No cyanosis, or edema. MUSCULOSKELETAL: Adequate muscle tone. NEUROLOGICAL: No obvious focal deficit. Awake, alert, and oriented x3. Assessment/Plan Problem List: (1) Pneumonia ICD Codes: J18.9 - Pneumonia, unspecified organism Status: Acute Plan: --repeat CT chest shows worsening PNA and new left sided infiltrate with small pleural effusion. --Pathology from VATS procedure on 09/16 shows no lymphoma involvement --on VFEND --ID following. 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 Assessment 42y/o male with T-cell lymphoma admitted with worsening right lung infiltrate. Plan 1. Patient will continue the voriconazole up until his evaluation for bone marrow transplant 2. Oncology clear for discharge. 3. Follow-up in clinic Attending Statement As discussed. FU as out patient. Problem Qualifiers (1) Pneumonia: Qualified Codes: J18.9 - Pneumonia, unspecified organism Karyn Julien September 20, 2017 13:46 Aysha Leigh MD September 20, 2017 21:50
--- NOTE | 2017-09-20 15:04 | HHI.FPPN ---
Subjective Remarks Patient seen and examined at bedside. Chest was removed this am. No acute events overnight. Pt states he feels well and is ready to go home. Denies breathing difficulties, CP or abdominal pain. Pt had BM. (J Luis Parker MD, R1) Objective Vitals Vital Signs Date Time Temp Pulse Resp B/P (MAP) Pulse Ox O2 Delivery O2 Flow Rate FiO2 09/20/17 12:38 98.3 107 18 150/84 (106) 94 09/20/17 09:25 Nasal Cannula 3.00 Humidified 09/20/17 09:25 98.3 109 18 140/83 (102) 94 09/20/17 07:38 93 Nasal Cannula 4.00 09/20/17 04:02 98 09/20/17 04:00 97.4 97 16 131/91 (104) 96 09/20/17 00:09 98.3 106 16 141/91 (108) 96 09/20/17 00:06 102 09/19/17 21:07 97.4 105 18 134/92 (106) 95 09/19/17 20:30 98 Nasal Cannula 3.00 09/19/17 20:01 133 09/19/17 20:00 95 Nasal Cannula 3.00 Humidified 09/19/17 16:00 97.8 102 18 141/89 (106) 93 I/O 09/19/17 09/19/17 09/19/17 09/20/17 09/20/17 09/20/17 07:00 15:00 23:00 07:00 15:00 23:00 Intake Total 1100 ml 480 ml Output Total 130 ml 130 ml 40 ml Balance -130 ml 970 ml 440 ml Intake Oral 1100 ml 480 ml Chest Tube Drainage Total 130 ml 130 ml 40 ml # Voids 7 6 # Bowel Movements 1 (J Luis Parker MD, R1) Result Diagram: 09/19/17 0455 09/19/17 0455 Imaging Last Impressions Chest X-Ray 09/20/17 06 Signed Impressions: Service Date/Time: Wednesday, September 20, 2017 04:36 - CONCLUSION: Slight increase in right pneumothorax. Stable diffuse consolidative change in the right lung associated with volume loss Bienvenido Bear MD Chest CT 09/14/17 0800 Signed Impressions: Service Date/Time: Thursday, September 14, 2017 13:01 - CONCLUSION: There is increased consolidation on the right and slight increase in right effusion with mild mediastinal shift to the right consistent with mild volume loss. New left lower lobe infiltrate. Himanshu Cleaning MD Objective Remarks GENERAL: This is a well-nourished, well-developed patient, sitting up in bed in NAD CARDIOVASCULAR: Regular rate and rhythm without murmurs, gallops, or rubs. RESPIRATORY: Crackles noted throughout right lung, same as yesterday. Coarse breath sounds on left lower lobe. Chest tube removed and clean dressing in place , c/d/i. GASTROINTESTINAL: Abdomen slightly distended, soft, non-tender. MUSCULOSKELETAL: Extremities without clubbing, cyanosis, or edema. No calf tenderness. NEUROLOGICAL: Awake and alert. Motor and sensory grossly within normal limits. Normal speech. (J Luis Parker MD, R1) A/P Assessment and Plan Patient is a 42-year-old male with past medical history of T-cell lymphoma presented with: (J Luis Parker MD, R1) Attending Attestation Patient seen and examined. Case reviewed and discussed Agree with plan of care as discussed with me and documented in the resident note. (Azra Santos MD) Problem List: (1) Pneumonia ICD Codes: J18.9 - Pneumonia, unspecified organism Status: Acute Plan: Clinically improved regarding SOB. However, repeat CT chest showed increased consolidation on the right and slight increase right left effusion with mild mediastinal shift to the right consistent with mild volume loss. Patient with recent hospitalization for pneumonia thought to be due to fungal etiology. Patient was discharged on voriconazole and switched to fluconazole by medical oncologist due to side effect of severe bone pain and medical oncology plan plan to extend treatment with fluconazole until patient received bone marrow transplant. On admission patient met sepsis criteria, now resolved Chest x-ray: Increasing infiltrate and density in the right lung with apparent volume loss Fungal workup from prior hospitalization was negative. CT chest with contrast showed worsening right lung infiltrate characteristic of pneumonia. UA negative Legionella and pneumococcal urine antigen negative Blood cultures: No growth 5 days CMV DNA pcr negative Lung bx results: NO MALIGNANT CELLS ID consulted, appreciate recommendations - Azithromycin discontinued -repeat EKG 09/19: QTc 394 -c/w voriconazole upon discharge 200 po BID x 14 days and then switch to ppx dose by Dr. Steel Pulmonology consulted, appreciate recs -S/p bronchoscopy 09/11 -c/w prednisone 40 QD x 1wk and then 20mg QD x 2 wks Oncology consulted, appreciate recs -Pain control with oral morphine and tylenol PRN CT surgery consulted, appreciate assistance -s/p VATS 09/16, POD #4 -CXR in AM 5: slight increase in RIght pneumothorax, stable diffused consolidative change in Right lung -chest tube removed this morning, cleared to discharge from CT surgery standpoint Fungal smear: No fungal elements seen Pleural fluid culture: NGTD Acid-fast, mycobacterial culture, fungal culture: pending Medical plan discussed with patient and and they agreed and showed understanding Incentive spirometry Albuterol nebulizer every 4 hours for shortness of breath prednisone 40 mg QD BAL results: Fungal smear: No fungal elements Acid-fast stain: No acid-fast bacilli Bronchial culture: Light growth normal respiratory edgard Gram stain: no organisms seen Biopsy of right lower lobe of lung: Bronchial mucosa with focal reactive atypia of the basal layers. Fragment of tissue with focal markedly reactive interstitial fibrosis and markedly reactive bronchial epithelial cells. Viral inclusions are not identified. Antibiotic history Vancomycin 09/09-- 09/12 Azithromycin 09/09-- 09/19 Zosyn 09/09-- 09/12 Voriconazole po 200 mg 09/09-- present (2) T-cell lymphoma ICD Codes: C85.90 - Non-Hodgkin lymphoma, unspecified, unspecified site Status: Chronic Plan: Diagnosed w/T cell lymphoma in April per biopsy results; s/p CHOP chemotherapy outpatient, follows with Dr. Leigh. Right lung infiltrate infection vs recurrence of T cell lymphoma see plan above (3) Constipation ICD Codes: K59.00 - Constipation, unspecified Status: Acute Plan: Continue to monitor Constipation protocol -Golytely liq at bedside, 8 oz Q20 min PRN (4) Insomnia ICD Codes: G47.00 - Insomnia, unspecified Status: Acute Plan: Patient with c/o of inability to go to sleep due to anxiety c/w ativan 0.5mg PRN Q8h to aid with improved sleep and anxiety sxs (5) Nutrition, metabolism, and development symptoms ICD Codes: R63.8 - Other symptoms and signs concerning food and fluid intake Plan: Fluids: PO only Electrolytes: Replete as needed Nutrition: Regular diet DVT prophylaxis: Lovenox 40 every 24h GI ppx: protonix 40mg IV Pain: Oramorph 30 mg BID, IV morphine 8 mg Q3H PRN (J Luis Parker MD, R1) Problem Qualifiers (1) Pneumonia: Qualified Codes: J18.9 - Pneumonia, unspecified organism J Luis Parker MD, R1 September 20, 2017 15:04 Azra Santos MD September 21, 2017 10:05
[2017-09-20] MEDS ORDERED: VORI200 PO ×2 (15:29→15:33)
[2017-09-20] MEDS ORDERED: PRED20 PO ×2 (15:36→15:38)
[2017-09-20] MEDS ORDERED: LORA-392 PO (15:57)
--- NOTE | 2017-09-20 15:59 | HHI.DCPOC ---
Discharge Care Plan Diagnosis: (1) Atypical chest pain (2) Insomnia (3) Constipation (4) Chest pain (5) Pleural effusion (6) S/P lung surgery, follow-up exam (7) Pneumonia Goals to Promote Your Health * To prevent worsening of your condition and complications * To maintain your health at the optimal level Directions to Meet Your Goals Take your medications as prescribed Follow your dietary instruction Follow activity as directed Keep your appointments as scheduled Take your immunizations and boosters as scheduled If your symptoms worsen call your PCP, if no PCP go to Urgent Care Center or Emergency Room Smoking is Dangerous to Your Health. Avoid second hand smoke Call the 24-hour hour crisis hotline for domestic abuse at J Luis Parker MD, R1 September 20, 2017 15:59
--- NOTE | 2017-09-20 16:00 | HHI.DS ---
Discharge Summary Admission Date Sep 09, 2017 at 13:19 Admitting Diagnosis (1) Pneumonia Plan: Clinically improved regarding SOB. However, repeat CT chest showed increased consolidation on the right and slight increase right left effusion with mild mediastinal shift to the right consistent with mild volume loss. Patient with recent hospitalization for pneumonia thought to be due to fungal etiology. Patient was discharged on voriconazole and switched to fluconazole by medical oncologist due to side effect of severe bone pain and medical oncology plan plan to extend treatment with fluconazole until patient received bone marrow transplant. On admission patient met sepsis criteria, now resolved Chest x-ray: Increasing infiltrate and density in the right lung with apparent volume loss Fungal workup from prior hospitalization was negative. CT chest with contrast showed worsening right lung infiltrate characteristic of pneumonia. UA negative Legionella and pneumococcal urine antigen negative Blood cultures: No growth 5 days CMV DNA pcr negative Lung bx results: NO MALIGNANT CELLS ID consulted, appreciate recommendations -Continue Azithromycin, voriconazole -hold off resuming broad pna coverage with antibiotics since pt is clinically stable. Consider resuming empiric antibiotic coverage if pt decompensates -Follow bronchial cultures, lung biopsy Cx, pleural fluid cultures Pulmonology consulted, appreciate recs -S/p bronchoscopy 09/11 -F/u culture Oncology consulted, appreciate recs -Pain control with oral and IV morphine PRN CT surgery consulted, appreciate assistance -s/p VATS 09/16, POD #3 -To perform CXR in AM 5/4 and eval for chest tube removal Fungal smear: No fungal elements seen Pleural fluid culture: NGTD Acid-fast, mycobacterial culture, fungal culture: pending Medical plan discussed with patient and and they agreed and showed understanding Incentive spirometry Albuterol nebulizer every 4 hours for shortness of breath prednisone 40 mg QD BAL results: Fungal smear: No fungal elements Acid-fast stain: No acid-fast bacilli Bronchial culture: Light growth normal respiratory edgard Gram stain: no organisms seen Biopsy of right lower lobe of lung: Bronchial mucosa with focal reactive atypia of the basal layers. Fragment of tissue with focal markedly reactive interstitial fibrosis and markedly reactive bronchial epithelial cells. Viral inclusions are not identified. Antibiotic history Vancomycin 09/09-- 09/12 Azithromycin 09/09-- present Zosyn 09/09-- 09/12 Voriconazole po 200 mg 09/09-- present ICD Codes: J18.9 - Pneumonia, unspecified organism Status: Acute (2) T-cell lymphoma Plan: Diagnosed w/T cell lymphoma in April per biopsy results; s/p CHOP chemotherapy outpatient, follows with Dr. Leigh. Right lung infiltrate infection vs recurrence of T cell lymphoma see plan above ICD Codes: C85.90 - Non-Hodgkin lymphoma, unspecified, unspecified site Status: Chronic (3) Constipation Plan: Continue to monitor Constipation protocol -Golytely liq at bedside, 8 oz Q20 min PRN ICD Codes: K59.00 - Constipation, unspecified Status: Acute (4) Insomnia Plan: Patient with c/o of inability to go to sleep due to anxiety c/w ativan 0.5mg PRN Q8h to aid with improved sleep and anxiety sxs ICD Codes: G47.00 - Insomnia, unspecified Status: Acute (5) Nutrition, metabolism, and development symptoms Plan: Fluids: PO only Electrolytes: Replete as needed Nutrition: Regular diet DVT prophylaxis: Lovenox 40 every 24h GI ppx: protonix 40mg IV Pain: Oramorph 30 mg BID, IV morphine 8 mg Q3H PRN Dispo: Pending lung biopsy and results, removal of chest tube ICD Codes: R63.8 - Other symptoms and signs concerning food and fluid intake Brief History Patient is a 42-year-old male with recent diagnosis of T-cell lymphoma presented to the ED due to worsening shortness of breath this morning. Patient reports he has been feeling short of breath with exertion for the past couple days but this morning it was a worse it has been and he decided to come to ED for further evaluation. He stated that taking a deep breath produced cough. Cough is productive of white sputum. He also reports right-sided chest pain with deep inspiration and right-sided pressure in his back when he lays down. Patient reports that last night he took nebulizer treatment without any improvement. Patient was previously treated for fungal pneumonia pneumonia earlier this month. Of note patient was discharged on voriconazole 200 p.o. for the fungal pneumonia and he was switched to fluconazole 200 p.o. by medical oncologist (Dr. Leigh ). Patient reported he had severe bone pain while on voriconazole medication and reports intermittent right-sided chest pain that comes after taking fluconazole medication. Patient also reports bilateral knee pain worse on the right and numbness tingling sensation of feet bilaterally. Patient stated that previous hospitalization he was found to have a left medial meniscus tear. Patient does not use any assistive devices for ambulation. Patient denies fever, nausea vomiting, abdominal pain, decrease in appetite. Endorses regular bowel movements. Allergies: Seasonal In the ED patient received: IV azithromycin and Zosyn, morphine for pain, 2 L of normal saline bolus. Per ED note:The patient has been treated with chemotherapy, specifically CHOP. He is also being considered for a bone marrow transplant. CBC/BMP: 09/19/17 0455 09/19/17 0455 Significant Findings Laboratory Tests Test 09/18/17 05:00 09/19/17 04:55 Red Blood Count 3.88 MIL/MM3 (4.50-5.90) 3.87 MIL/MM3 (4.50-5.90) Hemoglobin 11.0 GM/DL (13.0-17.0) 11.2 GM/DL (13.0-17.0) Hematocrit 33.7 % (39.0-51.0) 34.0 % (39.0-51.0) Red Cell Distribution Width 18.6 % (11.6-17.2) 18.7 % (11.6-17.2) Neutrophils (%) (Auto) 82.3 % (16.0-70.0) 78.5 % (16.0-70.0) Lymphocytes (%) (Auto) 5.5 % (9.0-44.0) 7.1 % (9.0-44.0) Monocytes (%) (Auto) 8.6 % (0.0-8.0) 10.2 % (0.0-8.0) Lymphocytes # (Auto) 0.3 TH/MM3 (1.0-4.8) 0.4 TH/MM3 (1.0-4.8) Neutrophils % (Manual) 87 % (16-70) Lymphocytes % 4 % (9-44) Myelocytes 3 % (0-0) 1 % (0-0) Nucleated Red Blood Cells 1 /100 WBC (0-0) Tear Drop Cells 1+ (NORMAL) 1+ (NORMAL) Ovalocytes 1+ (NORMAL) 1+ (NORMAL) Random Glucose 107 MG/DL (74-106) 115 MG/DL (74-106) Albumin 2.7 GM/DL (3.4-5.0) Carbon Dioxide Level 32.6 MEQ/L (21.0-32.0) 32.5 MEQ/L (21.0-32.0) Eosinophils % 5 % (0-4) Metamyelocytes 2 % (0-1) PE at Discharge GENERAL: This is a well-nourished, well-developed patient, sitting up in bed in NAD CARDIOVASCULAR: Regular rate and rhythm without murmurs, gallops, or rubs. RESPIRATORY: Breath sounds diminished on R lower lobe. Crackles noted throughout right lung. Coarse breath sounds on left lower lobe. Chest tube in place, dressing c/d/i. GASTROINTESTINAL: Abdomen slightly distended, soft, non-tender. MUSCULOSKELETAL: Extremities without clubbing, cyanosis, or edema. No calf tenderness. NEUROLOGICAL: Awake and alert. Motor and sensory grossly within normal limits. Normal speech. Pt Condition on Discharge: Stable Discharge Disposition: Discharge Home Discharge Instructions DIET: Follow Instructions for: As Tolerated, No Restrictions Activities you can perform: Weight Bearing as Liliam J Luis Parker MD, R1 September 20, 2017 16:00
[2017-09-20] MEDS ORDERED: MORPHINE SULFATE 4 MG/ML INJ IV PUSH PRN (17:30)
--- NOTE | 2017-09-20 17:43 | HHI.PR ---
Subjective Remarks 42 YOWM with T-cell lymphoma, S/P CHOP therapy has Bilat infilt had bronch, BAL brushing and bx done No fever or chills Had Rt VATS, Rt lung bx Chest tube removed feels much better Objective Vital Signs Vital Signs Date Time Temp Pulse Resp B/P (MAP) Pulse Ox O2 Delivery O2 Flow Rate FiO2 09/20/17 16:00 99.1 110 18 136/91 (106) 99 09/20/17 12:38 98.3 107 18 150/84 (106) 94 09/20/17 09:25 Nasal Cannula 3.00 Humidified 09/20/17 09:25 98.3 109 18 140/83 (102) 94 09/20/17 07:38 93 Nasal Cannula 4.00 09/20/17 04:02 98 09/20/17 04:00 97.4 97 16 131/91 (104) 96 09/20/17 00:09 98.3 106 16 141/91 (108) 96 09/20/17 00:06 102 09/19/17 21:07 97.4 105 18 134/92 (106) 95 09/19/17 20:30 98 Nasal Cannula 3.00 09/19/17 20:01 133 09/19/17 20:00 95 Nasal Cannula 3.00 Humidified I/O 09/19/17 09/19/17 09/19/17 09/20/17 09/20/17 09/20/17 07:00 15:00 23:00 07:00 15:00 23:00 Intake Total 1100 ml 480 ml 720 ml Output Total 130 ml 130 ml 40 ml Balance -130 ml 970 ml 440 ml 720 ml Intake Oral 1100 ml 480 ml 720 ml Chest Tube Drainage Total 130 ml 130 ml 40 ml # Voids 7 6 4 # Bowel Movements 1 1 Result Diagram: 09/19/17 0455 09/19/17 0455 Objective Remarks GENERAL: WBWN WM,NAD SKIN: Warm and dry. HEAD: Normocephalic. EYES: No scleral icterus. No injection or drainage. NECK: Supple, trachea midline. No JVD or lymphadenopathy. CARDIOVASCULAR: Regular rate and rhythm without murmurs, gallops, or rubs. RESPIRATORY: Breath sounds equal bilaterally. No accessory muscle use. GASTROINTESTINAL: Abdomen soft, non-tender, nondistended. MUSCULOSKELETAL: No cyanosis, or edema. BACK: Nontender without obvious deformity. No CVA tenderness. A/P Assessment and Plan IMPRESSION: 1. Extensive right lung infiltrate and infiltrate in the lingula. Differential diagnosis includes fungal infection, opportunistic infection, bacterial pneumonia on top of that and also possibility of extension of lymphoma. 2. Bronchial asthma. 3. Small pleural effusion. 4. S/P Rt VATS and bx PLAN: cont Abx per ID DC Solumedrol. Pred 40 mg daily Supplement 02 nebs to prn Ambulate. DC plans underway for home Francis Aleman MD September 20, 2017 17:43
--- NOTE | 2017-09-20 18:50 | EKG ---
Date Performed: 09/19/2017 Time Performed: 16:38:07 PTAGE: 42 years EKG: SINUS TACHYCARDIA POSSIBLE RIGHT VENTRICULAR CONDUCTION DELAY ABNORMAL RHYTHM ECG Since the PREVIOUS TRACING , no significant change noted PREVIOUS TRACIN09/13/2017 13.30 DOCTOR: Zachary Zafar Interpretating Date/Time 09/20/2017 16:39:50
== END 2017-09-20 17:33 | disposition home or self-care (01) | DRG 853 ==
LOC: NEPC 09:42 → NEDA 13:19 → N04B 18:17 → HCIS 09-11 14:22 → HCIN 09-11 16:51
PROVIDERS: ADMIT Family Medicine; ATTEND Family Medicine
PROC: 0BBF8ZX Excision of Right Lower Lung Lobe, Via Natural or Artificial Opening Endoscopic, Diagnostic (ICD-10-PCS; principal; 2017-09-11)
PROC: 0BDF8ZX Extraction of Right Lower Lung Lobe, Via Natural or Artificial Opening Endoscopic, Diagnostic (ICD-10-PCS; 2017-09-11)
PROC: 0BBC4ZX Excision of Right Upper Lung Lobe, Percutaneous Endoscopic Approach, Diagnostic (ICD-10-PCS; 2017-09-16)
PROC: 0W9940Z Drainage of Right Pleural Cavity with Drainage Device, Percutaneous Endoscopic Approach (ICD-10-PCS; 2017-09-16)
PROC: 3E0T3BZ Introduction of Anesthetic Agent into Peripheral Nerves and Plexi, Percutaneous Approach (ICD-10-PCS; 2017-09-16)
DX: A41.9 Sepsis, unspecified organism (principal); J18.9 Pneumonia, unspecified organism; J90 Pleural effusion, not elsewhere classified; D89.9 Disorder involving the immune mechanism, unspecified; I10 Essential (primary) hypertension; S83.242A Other tear of medial meniscus, current injury, left knee, initial encounter; D64.9 Anemia, unspecified; F41.9 Anxiety disorder, unspecified; M19.90 Unspecified osteoarthritis, unspecified site; E78.00 Pure hypercholesterolemia, unspecified; R06.82 Tachypnea, not elsewhere classified; R00.0 Tachycardia, unspecified; M25.561 Pain in right knee; R59.0 Localized enlarged lymph nodes; J98.4 Other disorders of lung; G47.00 Insomnia, unspecified; K21.9 Gastro-esophageal reflux disease without esophagitis; K59.00 Constipation, unspecified; R04.0 Epistaxis; Z85.72 Personal history of non-Hodgkin lymphomas; Z87.01 Personal history of pneumonia (recurrent); Z92.21 Personal history of antineoplastic chemotherapy; Z92.3 Personal history of irradiation
CPT/HCPCS: 31625; 36600; 71045; 71260; 80048; 80053; 80202; 81001; 82805; 83605; 83615; 84484; 85007; 85025; 85027; 85610; 85730; 86713; 86850; 86900; 86901; 86920; 87015; 87040; 87070; 87071; 87102; 87116; 87176; 87205; 87206; 87449; 87497; 88112; 88305; 88307; 88312; 93005; 94150; 94618; 94640; 94664; 94668; 96365; 96368; 96375; C9113; J0131; J0456; J0690; J1642; J1650; J1885; J2060; J2250; J2270; J2405; J2543; J2710; J2920; J3010; J3370; J7030; J7040; J7050; J7120; J7512; J7613; Q9967

== ENCOUNTER 2017-09-25 14:56 | Day surgery (SDC) | payer BC | END 2017-09-25 16:14 | disposition home or self-care (01) | LOC: HROP 14:56 → HRIP 15:00 → HROP 16:14 | DX: Z48.01 Encounter for change or removal of surgical wound dressing (principal) | CPT/HCPCS: 99213 ==

== ENCOUNTER 2017-09-29 14:07 | Inpatient (IN) | payer BC ==
[~2017-09-29] VITALS: Ht 182.9 cm; Wt 97.6 kg
[~2017-09-29 14:07] MED LIST changes: +LACT10SO PO; +LORA-392 PO; +METH10TA PO; +MSIR30 PO; -OXYC1TAB36 PO; -PRED10 PO; -PRED2.5T PO; +PRED20 PO
[2017-09-29 14:13] VITALS: BP 154/95; PULSE 103; RESP 24; TEMP 97.5; O2SAT 93
--- NOTE | 2017-09-29 14:20 | PD ---
HPI Chief Complaint: Edema Time Seen by Provider: 14:19 Travel History International Travel<30 days: No Contact w/Intl Traveler<30days: No Traveled to known affect area: No History of Present Illness HPI 42-year-old male with history of hypertension, CAD, T-cell lymphoma followed by Dr. Leigh, presents emergency department for evaluation of left upper extremity edema and crepitus on his left side with left-sided facial and neck swelling noticed this morning. Patient has associated shortness of breath. Patient had a lung biopsy and subsequently developed pneumothorax. Chest tube was placed on his previous admission. This was removed 9 days ago. Patient is a Dr. Leigh 3 days ago in office. He did have right-sided neck swelling and continued drainage from the chest tube site on the right. CT imaging was ordered for this coming Saturday for further evaluation of this. Patient states it was not until this morning that he had left-sided neck and upper extremity swelling. He had associated crepitus on the left side. He reports moderate pain. He states he is short of breath since his recent hospitalization and is on 3 L nasal cannula at home. Patient has completed his chemotherapy. Patient denies any nausea or vomiting. He denies any fever or chills. He has no other symptoms to report at this time. [facility] Past Medical History Arthritis: Yes Asthma: Yes Anxiety: No Depression: No Cancer: Yes (t-cell lymphoma) Cardiovascular Problems: Yes High Cholesterol: Yes Chemotherapy: Yes Diabetes: No Diminished Hearing: No Endocrine: No Genitourinary: No Hypertension: Yes Immune Disorder: No Implanted Vascular Access Dvce: Yes Musculoskeletal: Yes Neurologic: No Psychiatric: No Reproductive: No Respiratory: Yes Immunizations Current: No Pneumonia: Yes Radiation Therapy: Yes Thyroid Disease: No Past Surgical History AICD: No Body Medical Devices: SHOULDER SURGERY, DISLOCATION MAYBE SCREWS? Joint Replacement: No Pacemaker: No Thoracic Surgery: Yes (PORT CHEST - LEFT UPPER CHEST) Social History Alcohol Use: No Tobacco Use: No Substance Use: No Allergies-Medications (Allergen,Severity, Reaction): Coded Allergies: No Known Allergies (Unverified , 09/29/17) Reported Meds & Prescriptions Reported Meds & Active Scripts Active Ativan (Lorazepam) 0.5 Mg Tab 0.5 Mg PO Q6HR PRN Prednisone 20 Mg Tab 20 Mg PO DAILY 14 Days Prednisone 20 Mg Tab 40 Mg PO DAILY 7 Days Take 40 mg (2 tablets) daily for 5 days Vfend (Voriconazole) 200 Mg Tab 200 Mg PO Q12H Continue for 14 days and then will be switched to prophylaxis dosage by oncologist. Lactulose Liq (Lactulose) 10 Gm/15 Ml Soln 30 Ml PO Q6H PRN Methadone (Methadone HCl) 10 Mg Tab 2.5 Mg PO DAILY Morphine IR (Morphine Sulfate) 30 Mg Tab 30 Mg PO Q6HR PRN 10 Days Review of Systems Except as stated in HPI: all other systems reviewed are Neg Physical Exam Narrative GENERAL: Well-nourished but ill-appearing male patient, in mild distress SKIN: Focused skin assessment warm/dry. HEAD: Atraumatic. Normocephalic. EYES: Pupils equal and round. No scleral icterus. No injection or drainage. ENT: No nasal bleeding or discharge. Mucous membranes pink and moist. NECK: Trachea midline. No JVD. There is edema of the left neck extending to the face. CARDIOVASCULAR: Regular rate and rhythm. No murmur appreciated. RESPIRATORY: No accessory muscle use. Diminished to absent right side with a fine crackle. Clear left upper and lower lobes. Breath sounds equal bilaterally. Left labium port noticed in place. Palpable crepitus on the left subclavian and shoulder. GASTROINTESTINAL: Abdomen soft, non-tender, nondistended. Hepatic and splenic margins not palpable. MUSCULOSKELETAL: No obvious deformities. No clubbing. No cyanosis. 2+ edema of the left upper extremity. Distal pulses are palpable. There is a darkening in color of the left upper extremity. NEUROLOGICAL: Awake and alert. No obvious cranial nerve deficits. Motor grossly within normal limits. Normal speech. PSYCHIATRIC: Appropriate mood and affect; insight and judgment normal. Data Data Last Documented VS Vital Signs Date Time Temp Pulse Resp B/P (MAP) Pulse Ox O2 Delivery O2 Flow Rate FiO2 09/29/17 16:22 18 09/29/17 15:00 98 Nasal Cannula 2.00 09/29/17 15:00 102 123/78 (93) 09/29/17 14:13 97.5 Orders Orders Us Arm Venous Doppler (09/29/17 ) Chest, Single Ap (09/29/17 ) Complete Blood Count With Diff (09/29/17 14:30) Comprehensive Metabolic Panel (09/29/17 14:30) Act Partial Throm Time (Ptt) (09/29/17 14:30) Prothrombin Time / Inr (Pt) (09/29/17 14:30) Magnesium (Mg) (09/29/17 14:30) Iv Access Insert/Monitor (09/29/17 14:30) Electrocardiogram (09/29/17 14:30) Ecg Monitoring (09/29/17 14:30) Oximetry (09/29/17 14:30) Oxygen Administration (09/29/17 14:30) Sodium Chloride 0.9% Flush (Ns Flush) (09/29/17 14:30) Ct Thorax/ Chest W Iv Contrast (09/29/17 15:09) Lorazepam (Ativan) (09/29/17 15:30) Morphine Inj (Morphine Inj) (09/29/17 15:30) Iohexol 350 Inj (Omnipaque 350 Inj) (09/29/17 15:30) Hydromorphone Pf Inj (Dilaudid Pf Inj) (09/29/17 16:30) Blood Culture (09/29/17 16:39) Lactic Acid Sepsis Protocol (09/29/17 16:39) Cefepime Inj (Maxipime Inj) (09/29/17 16:53) Azithromycin Inj (Zithromax Inj) (09/29/17 16:53) Hydromorphone Pf Inj (Dilaudid Pf Inj) (09/29/17 17:00) Admit Order (Ed Use Only) (09/29/17 16:58) Consult Medical Oncology (09/29/17 ) Sodium Chlor 0.9% 1000 Ml Inj (Ns 1000 M (09/29/17 17:00) Labs Laboratory Tests Test 09/29/17 15:00 White Blood Count 12.1 TH/MM3 Red Blood Count 4.78 MIL/MM3 Hemoglobin 13.3 GM/DL Hematocrit 40.5 % Mean Corpuscular Volume 84.8 FL Mean Corpuscular Hemoglobin 27.8 PG Mean Corpuscular Hemoglobin Concent 32.8 % Red Cell Distribution Width 17.8 % Platelet Count 245 TH/MM3 Mean Platelet Volume 7.5 FL Neutrophils (%) (Auto) 93.0 % Lymphocytes (%) (Auto) 2.2 % Monocytes (%) (Auto) 4.3 % Eosinophils (%) (Auto) 0.1 % Basophils (%) (Auto) 0.4 % Neutrophils # (Auto) 11.2 TH/MM3 Lymphocytes # (Auto) 0.3 TH/MM3 Monocytes # (Auto) 0.5 TH/MM3 Eosinophils # (Auto) 0.0 TH/MM3 Basophils # (Auto) 0.1 TH/MM3 CBC Comment AUTO DIFF Differential Total Cells Counted 100 Neutrophils % (Manual) 87 % Band Neutrophils % 2 % Lymphocytes % 5 % Monocytes % 3 % Neutrophils # (Manual) 11.1 TH/MM3 Promyelocytes 3 % Differential Comment FINAL DIFF MANUAL Platelet Estimate NORMAL Platelet Morphology Comment NORMAL Tear Drop Cells 1+ Ovalocytes 1+ Prothrombin Time 10.0 SEC Prothromb Time International Ratio 1.0 RATIO Activated Partial Thromboplast Time 19.2 SEC Blood Urea Nitrogen 21 MG/DL Creatinine 0.88 MG/DL Random Glucose 114 MG/DL Total Protein 7.3 GM/DL Albumin 3.1 GM/DL Calcium Level 9.3 MG/DL Magnesium Level 2.2 MG/DL Alkaline Phosphatase 81 U/L Aspartate Amino Transf (AST/SGOT) 62 U/L Alanine Aminotransferase (ALT/SGPT) 92 U/L Total Bilirubin 0.4 MG/DL Sodium Level 139 MEQ/L Potassium Level 5.0 MEQ/L Chloride Level 105 MEQ/L Carbon Dioxide Level 23.6 MEQ/L Anion Gap 10 MEQ/L Estimat Glomerular Filtration Rate 95 ML/MIN [facility] Medical Decision Making Medical Screen Exam Complete: Yes Emergency Medical Condition: Yes Medical Record Reviewed: Yes Differential Diagnosis SVC syndrome versus DVT versus pneumothorax versus pneumonia versus effusion versus sepsis Narrative Course 42-year-old male presents emergency department for evaluation of left upper extremity, neck, facial swelling, noted this morning with associated shortness of breath and crepitus to palpation on the left side. Patient appears ill. He has history of lymphoma and recent hospitalization for pneumonia where he did have a wedge biopsy done at that time. Chest x-rays were ordered stat. Discussed the patient immediately with my attending physician who has also assessed the patient. Workup is initiated. Laboratory Tests Test 09/29/17 15:00 White Blood Count 12.1 TH/MM3 Red Blood Count 4.78 MIL/MM3 Hemoglobin 13.3 GM/DL Hematocrit 40.5 % Mean Corpuscular Volume 84.8 FL Mean Corpuscular Hemoglobin 27.8 PG Mean Corpuscular Hemoglobin Concent 32.8 % Red Cell Distribution Width 17.8 % Platelet Count 245 TH/MM3 Mean Platelet Volume 7.5 FL Neutrophils (%) (Auto) 93.0 % Lymphocytes (%) (Auto) 2.2 % Monocytes (%) (Auto) 4.3 % Eosinophils (%) (Auto) 0.1 % Basophils (%) (Auto) 0.4 % Neutrophils # (Auto) 11.2 TH/MM3 Lymphocytes # (Auto) 0.3 TH/MM3 Monocytes # (Auto) 0.5 TH/MM3 Eosinophils # (Auto) 0.0 TH/MM3 Basophils # (Auto) 0.1 TH/MM3 CBC Comment AUTO DIFF Differential Total Cells Counted 100 Neutrophils % (Manual) 87 % Band Neutrophils % 2 % Lymphocytes % 5 % Monocytes % 3 % Neutrophils # (Manual) 11.1 TH/MM3 Promyelocytes 3 % Differential Comment FINAL DIFF MANUAL Platelet Estimate NORMAL Platelet Morphology Comment NORMAL Tear Drop Cells 1+ Ovalocytes 1+ Prothrombin Time 10.0 SEC Prothromb Time International Ratio 1.0 RATIO Activated Partial Thromboplast Time 19.2 SEC Blood Urea Nitrogen 21 MG/DL Creatinine 0.88 MG/DL Random Glucose 114 MG/DL Total Protein 7.3 GM/DL Albumin 3.1 GM/DL Calcium Level 9.3 MG/DL Magnesium Level 2.2 MG/DL Alkaline Phosphatase 81 U/L Aspartate Amino Transf (AST/SGOT) 62 U/L Alanine Aminotransferase (ALT/SGPT) 92 U/L Total Bilirubin 0.4 MG/DL Sodium Level 139 MEQ/L Potassium Level 5.0 MEQ/L Chloride Level 105 MEQ/L Carbon Dioxide Level 23.6 MEQ/L Anion Gap 10 MEQ/L Estimat Glomerular Filtration Rate 95 ML/MIN Last Impressions Chest CT 09/29/17 1509 Signed Impressions: Service Date/Time: Friday, September 29, 2017 15:20 - CONCLUSION: Dense consolidation changes right lung lung with mild volume loss. New significant subcutaneous emphysema extending into the mediastinum, right chest wall left neck There is no evidence of superior vena cava occlusion I cannot tell the status of the left subclavian or axillary vein because of the [id number] placement. . Román Howard MD FACR Upper Extremity Ultrasound 09/29/17 0000 Signed Impressions: Service Date/Time: Friday, September 29, 2017 17:06 - CONCLUSION: 1. Extensive occlusive thrombus left neck and left arm. Db Alcantara MD Chest X-Ray 09/29/17 0000 Signed Impressions: Service Date/Time: Friday, September 29, 2017 14:35 - CONCLUSION: Subcutaneous emphysema right chest and neck; new from the comparison study. Consolidative changes right lung with volume loss right lung. Left lung clear. Román Howard MD FACR I discussed the patient with my attending physician. I have also discussed the findings with the family. A call is made to Dr. Garcia [place] hospitalist for admission. He requests lactic acid and blood cultures and broad-spectrum antibiotics at this point. These will be added at this time. I also discussed the patient with Dr. Butler, oncologist travel accommodation inspector. He states at this point there is nothing further that he would advise. Consult was placed to oncology to follow the patient during his hospitalization. Sepsis Criteria SIRS Criteria (2 or more): Heart rate over 90, WBC > 64162, < 4000 or > 10% bands Sepsis Criteria (SIRS+source): Infect source susp/known Diagnosis Primary Impression: Sepsis Qualified Codes: A41.9 - Sepsis, unspecified organism Additional Impressions: DVT of upper extremity (deep vein thrombosis) Qualified Codes: I82.622 - Acute embolism and thrombosis of deep veins of left upper extremity Subcutaneous crepitus Lung consolidation Admitting Information Admitting Physician Requests: Admit Condition: Stable Sally Stewart ELDER COUNSELOR September 29, 2017 14:20
[2017-09-29] MEDS ORDERED: SODIUM CHLORIDE 0.9% FLUSH 10 ML FLUSH IVF PRN (14:30)
--- NOTE | 2017-09-29 14:47 | RADRPT ---
EXAM DATE/TIME: 09/29/2017 14:35 [facility] COMPARISON: CHEST SINGLE AP, September 20, 2017, 4:36. INDICATIONS : Shortness of breath. MEDICAL HISTORY : Hypertension. Asthma. SURGICAL HISTORY : None. ENCOUNTER: Initial ACUITY: 2 days PAIN SCORE: 0/10 LOCATION: chest FINDINGS: Moderate subjacent the same is present. There is mild elevation of the right hemidiaphragm with dens e consolidation in the right lung. Volume loss The left lung is clear. [id number] in good position. The heart and pulmonary vascularity are normal. CONCLUSION: Subcutaneous emphysema right chest and neck; new from the comparison study. Consolidative changes ri ght lung with volume loss right lung. Left lung clear. Román Howard MD FACR on September 29, 2017 at 14:43 Board Certified Radiologist. This report was verified electronically.
[2017-09-29 15:00] VITALS: BP 123/78; PULSE 102; RESP 22; O2SAT 97
[2017-09-29] MEDS ORDERED: IOHEXOL 350 MG/ML 10 ML VIAL (for RAD DIAG) IVCONTRAST ONE (15:30)
[2017-09-29] MEDS ORDERED: MORPHINE SULFATE 4 MG/ML INJ IV PUSH ONE (15:30)
[2017-09-29] MEDS ORDERED: LORazepam 1 MG TAB PO ONE (15:30)
--- NOTE | 2017-09-29 15:47 | RADRPT ---
EXAM DATE/TIME: 09/29/2017 15:20 CORRECTION Corrected on: September 29, 2017; [facility] COMPARISON: CT THORAX W CONTRAST, September 14, 2017, 13:01. INDICATIONS : Left arm pain and swelling, shortness of breath. IV CONTRAST: 68 cc Omnipaque 350 (iohexol) IV RADIATION DOSE: 11.62 CTDIvol (mGy) MEDICAL HISTORY : Lymphoma. Hypertension. SURGICAL HISTORY : None. ENCOUNTER: Initial ACUITY: 1 day PAIN SCALE: 7/10 LOCATION: Left arm TECHNIQUE: Volumetric scanning of the chest was performed. Using automated exposure control and adjustment of t he mA and/or kV according to patient size, radiation dose was kept as low as reasonably achievable to obtain optimal diagnostic quality images. DICOM format image data is available electronically for review and comparison. Follow-up recommendations for detected pulmonary nodules are based at a minimum on nodule size and pa tient risk factors according to Fleischner Society Guidelines. FINDINGS: Extensive subcutaneous emphysema is present in the left neck, right neck and over the right chest wal l. This extends into the mediastinum. There is dense consolidation changes in the right lung. Cent ral venous catheters in good position. The superior vena cava is patent. I cannot tell the status o f the left subclavian, brachiocephalic or axillary vein because of the [id number]-j-[id number] placement. There is no central pulmonary emboli. There is no pericardial effusion. There is no mediastinal adenopathy Upper abdominal contents unremarkable CONCLUSION: Dense consolidation changes right lung lung with mild volume loss. New significant subcutaneous emphysema extending into the mediastinum, right chest wall left neck There is no evidence of superior vena cava occlusion I cannot tell the status of the left subclavian or axillary vein because of the Afpiki-y-Pjep placeme nt. . Román Howard MD FACR on September 29, 2017 at 15:42 Board Certified Radiologist. This report was verified electronically. Román Howard MD FACR on September 29, 2017 at 16:53 Board Certified Radiologist. This report was verified electronically.
[2017-09-29 15:51] LABS: ALBUMIN 3.1 GM/DL (3.4-5.0); ALT (GPT) 92 U/L (12-78); AST (GOT) 62 U/L (15-37); BICARBONATE 23.6 MEQ/L (21.0-32.0); BLOOD UREA NITROGEN 21 MG/DL (7-18); CALCIUM 9.3 MG/DL (8.5-10.1); CHLORIDE 105 MEQ/L (98-107); CREATININE 0.88 MG/DL (0.60-1.30); GLOMERULAR FILTRATION RATE 95 ML/MIN (>89); GLUCOSE,RANDOM 114 MG/DL (74-106); MAGNESIUM 2.2 MG/DL (1.5-2.5); SODIUM (NA) 139 MEQ/L (136-145)
[2017-09-29 15:52] LABS: ALKALINE PHOSPHATASE 81 U/L (45-117); TOTAL BILIRUBIN ADULT 0.4 MG/DL (0.2-1.0); TOTAL PROTEIN 7.3 GM/DL (6.4-8.2)
[2017-09-29 15:57] LABS: AUTOMATED NEUTROPHIL # 11.2 TH/MM3 (1.8-7.7); BASOPHIL # 0.1 TH/MM3 (0-0.2); BASOPHIL % 0.4 % (0.0-2.0); EOSINOPHIL % 0.1 % (0.0-4.0); HEMATOCRIT 40.5 % (39.0-51.0); HEMOGLOBIN 13.3 GM/DL (13.0-17.0); LYMPH % 2.2 % (9.0-44.0); LYMPHOCYTE # 0.3 TH/MM3 (1.0-4.8); MEAN CELL VOLUME 84.8 FL (80.0-100.0); MEAN CORPUSCULAR HEMOGLOBIN 27.8 PG (27.0-34.0); MEAN CORPUSCULAR HGB CONC 32.8 % (32.0-36.0); MEAN PLATELET VOLUME 7.5 FL (7.0-11.0); MONO % 4.3 % (0.0-8.0); MONOCYTE # 0.5 TH/MM3 (0-0.9); PLATELET COUNT 245 TH/MM3 (150-450); RED BLOOD COUNT 4.78 MIL/MM3 (4.50-5.90); RED CELL DISTRIBUTION WIDTH 17.8 % (11.6-17.2); WHITE BLOOD COUNT 12.1 TH/MM3 (4.0-11.0)
[2017-09-29] MEDS ORDERED: HYDROmorphone HCL PF 1 MG/ML VIAL IV PUSH ONE (16:30)
[2017-09-29] MEDS ORDERED: CEFEPIME INJ 2,000 MG in SODIUM CHLORIDE 0.9% INJ 100 ML IV STA (16:53)
[2017-09-29] MEDS ORDERED: AZITHROMYCIN INJ 500 MG in SODIUM CHLOR 0.9% 250 ML INJ 250 ML IV STA (16:53)
--- NOTE | 2017-09-29 16:59 | PD ---
Data Data Last Documented VS Vital Signs Date Time Temp Pulse Resp B/P (MAP) Pulse Ox O2 Delivery O2 Flow Rate FiO2 09/29/17 16:22 18 09/29/17 15:00 98 Nasal Cannula 2.00 09/29/17 15:00 102 123/78 (93) 09/29/17 14:13 97.5 Orders Orders Us Arm Venous Doppler (09/29/17 ) Chest, Single Ap (09/29/17 ) Complete Blood Count With Diff (09/29/17 14:30) Comprehensive Metabolic Panel (09/29/17 14:30) Act Partial Throm Time (Ptt) (09/29/17 14:30) Prothrombin Time / Inr (Pt) (09/29/17 14:30) Magnesium (Mg) (09/29/17 14:30) Iv Access Insert/Monitor (09/29/17 14:30) Electrocardiogram (09/29/17 14:30) Ecg Monitoring (09/29/17 14:30) Oximetry (09/29/17 14:30) Oxygen Administration (09/29/17 14:30) Sodium Chloride 0.9% Flush (Ns Flush) (09/29/17 14:30) Ct Thorax/ Chest W Iv Contrast (09/29/17 15:09) Lorazepam (Ativan) (09/29/17 15:30) Morphine Inj (Morphine Inj) (09/29/17 15:30) Iohexol 350 Inj (Omnipaque 350 Inj) (09/29/17 15:30) Hydromorphone Pf Inj (Dilaudid Pf Inj) (09/29/17 16:30) Blood Culture (09/29/17 16:39) Lactic Acid Sepsis Protocol (09/29/17 16:39) Cefepime Inj (Maxipime Inj) (09/29/17 16:53) Azithromycin Inj (Zithromax Inj) (09/29/17 16:53) Hydromorphone Pf Inj (Dilaudid Pf Inj) (09/29/17 17:00) Labs Laboratory Tests Test 09/29/17 15:00 White Blood Count 12.1 TH/MM3 Red Blood Count 4.78 MIL/MM3 Hemoglobin 13.3 GM/DL Hematocrit 40.5 % Mean Corpuscular Volume 84.8 FL Mean Corpuscular Hemoglobin 27.8 PG Mean Corpuscular Hemoglobin Concent 32.8 % Red Cell Distribution Width 17.8 % Platelet Count 245 TH/MM3 Mean Platelet Volume 7.5 FL Neutrophils (%) (Auto) 93.0 % Lymphocytes (%) (Auto) 2.2 % Monocytes (%) (Auto) 4.3 % Eosinophils (%) (Auto) 0.1 % Basophils (%) (Auto) 0.4 % Neutrophils # (Auto) 11.2 TH/MM3 Lymphocytes # (Auto) 0.3 TH/MM3 Monocytes # (Auto) 0.5 TH/MM3 Eosinophils # (Auto) 0.0 TH/MM3 Basophils # (Auto) 0.1 TH/MM3 CBC Comment AUTO DIFF Prothrombin Time 10.0 SEC Prothromb Time International Ratio 1.0 RATIO Activated Partial Thromboplast Time 19.2 SEC Blood Urea Nitrogen 21 MG/DL Creatinine 0.88 MG/DL Random Glucose 114 MG/DL Total Protein 7.3 GM/DL Albumin 3.1 GM/DL Calcium Level 9.3 MG/DL Magnesium Level 2.2 MG/DL Alkaline Phosphatase 81 U/L Aspartate Amino Transf (AST/SGOT) 62 U/L Alanine Aminotransferase (ALT/SGPT) 92 U/L Total Bilirubin 0.4 MG/DL Sodium Level 139 MEQ/L Potassium Level 5.0 MEQ/L Chloride Level 105 MEQ/L Carbon Dioxide Level 23.6 MEQ/L Anion Gap 10 MEQ/L Estimat Glomerular Filtration Rate 95 ML/MIN MDM Supervised Visit with FERNANDO: Yes Narrative Course I, Dr. Pereira, have reviewed the advance practice practitioner's documentation and am in agreement, met with the patient face to face, made the diagnosis, and the medical decision making was done by me. *My assessment and Findings: Patient is complicated but not unstable. He needs readmission. He has new subcu emphysema and swelling of the left upper extremity. Chest x-ray and CT of the chest were done and neither show any evidence of pneumothorax. He has no PE or vena cava syndrome. Ultrasound will be done to rule out DVT in the left arm. Labs are reviewed. Condition: Stable Robin Pereira MD September 29, 2017 16:59
[2017-09-29] MEDS ORDERED: HYDROmorphone HCL PF 2 MG/ML VIAL IV PUSH ONE (17:00)
[2017-09-29] MEDS ORDERED: SODIUM CHLOR 0.9% 1000 ML INJ 1,000 ML IV ONE ×3 (17:00→17:14)
[2017-09-29 17:05] LABS: BANDS 2 % (0-6); LYMPHOCYTES 5 % (9-44); MONOCYTES 3 % (0-8); NEUTROPHIL # MANUAL DIFF 11.1 TH/MM3 (1.8-7.7); POLYS (SEG NEUTROPHILS) 87 % (16-70); PROMYELOCYTES 3 % (0-0)
[2017-09-29 17:06] LABS: OVALOCYTES 1+ (NORMAL); TEARDROP RBCS 1+ (NORMAL)
[2017-09-29] MEDS ORDERED: SODIUM CHLOR 0.9% 1000 ML INJ 700 ML IV ONE (17:14)
[2017-09-29] MEDS ORDERED: SODIUM CHLORIDE 0.9% FLUSH 10 ML FLUSH IV FLUSH PRN (17:15)
[2017-09-29] MEDS ORDERED: VANCOMYCIN INJ 1,000 MG in SODIUM CHLOR 0.9% 250 ML INJ 250 ML IV ONE (17:15)
[2017-09-29] MEDS ORDERED: ONDANSETRON HCL 4 MG/2 ML VIAL IV PUSH PRN (17:15)
[2017-09-29] MEDS ORDERED: Vancomycin Consult Pharmacy 1 EA OTHER SCH (17:15)
[2017-09-29] MEDS ORDERED: NALOXONE HCL 0.4 MG/ML AMP IV PUSH PRN (17:30)
[2017-09-29] MEDS ORDERED: HYDROmorphone HCL PF 1 MG/ML VIAL IV PUSH PRN (17:30)
[2017-09-29] MEDS ORDERED: LACTULOSE SYRUP 20 GM/30 ML CUP PO PRN (17:30)
[2017-09-29] MEDS ORDERED: MAGNESIUM HYDROXIDE SUSP 30 ML CUP PO PRN (17:30)
[2017-09-29] MEDS ORDERED: SENNOSIDES 8.6 MG TAB PO PRN (17:30)
--- NOTE | 2017-09-29 17:48 | HHI.HP ---
HPI Service [facility] Primary Care Physician Unknown Admission Diagnosis LUE edema; poss DVT; subcutaneous emphysema; facial swelling; sob Diagnoses: Chief Complaint: Left face, neck and upper extremity swelling Travel History International Travel<30 Days: No Contact w/Intl Traveler <30 Da: No Traveled to Known Affected Are: No History of Present Illness This is a 43-year-old male with a history of hypertension and T-cell lymphoma status post chemo. He was recently discharged over 10 days ago after being treated for right lung pneumonia presumably fungal etiology on Vfend status post bronchoscopy and VATS. He has been compliant with therapy and has been doing well until this morning when he noticed left face and neck swelling which progressed involving the left chest and left upper extremity with crepitation. CT of the chest does not show evidence of SVC. He also complains of productive cough yellow phlegm and shortness of breath with wheezing. Denies fever or chills. In the ED he has tachycardia, tachypnea and leukocytosis with right lung consolidation on chest CT and has been started on IV vancomycin, IV Zithromax and IV cefepime for hospital-acquired pneumonia. Blood cultures were obtained. All other systems reviewed negative Review of Systems Except as stated in HPI: all other systems reviewed are Neg Past Family Social History Past Medical History As previously mentioned Past Surgical History As previously mentioned, shoulder surgery and port placement left upper chest Reported Medications Reported Meds & Active Scripts Active Ativan (Lorazepam) 0.5 Mg Tab 0.5 Mg PO Q6HR PRN Prednisone 20 Mg Tab 20 Mg PO DAILY 14 Days Prednisone 20 Mg Tab 40 Mg PO DAILY 7 Days Take 40 mg (2 tablets) daily for 5 days Vfend (Voriconazole) 200 Mg Tab 200 Mg PO Q12H Continue for 14 days and then will be switched to prophylaxis dosage by oncologist. Lactulose Liq (Lactulose) 10 Gm/15 Ml Soln 30 Ml PO Q6H PRN Methadone (Methadone HCl) 10 Mg Tab 2.5 Mg PO DAILY Morphine IR (Morphine Sulfate) 30 Mg Tab 30 Mg PO Q6HR PRN 10 Days Allergies: Coded Allergies: No Known Allergies (Unverified , 09/29/17) Family History Coronary artery disease Social History Does not smoke or drink Physical Exam Vital Signs Vital Signs Date Time Temp Pulse Resp B/P (MAP) Pulse Ox O2 Delivery O2 Flow Rate FiO2 09/29/17 16:22 18 09/29/17 15:00 98 Nasal Cannula 2.00 09/29/17 15:00 102 22 123/78 (93) 97 Nasal Cannula 2.00 09/29/17 15:00 102 22 123/78 (93) 97 Nasal Cannula 2.00 09/29/17 14:13 97.5 103 24 154/95 (114) 93 Physical Exam GENERAL: This is a well-nourished, well-developed patient, in mild distress. SKIN: Some erythema in the left upper chest but no hyperemia. Slight dark discoloration left upper extremity HEAD: Atraumatic. Normocephalic. No temporal or scalp tenderness. EYES: Pupils equal round and reactive. Extraocular motions intact. No scleral icterus. No injection or drainage. ENT: Nose without bleeding, purulent drainage or septal hematoma. Throat without erythema, tonsillar hypertrophy or exudate. Uvula midline. Airway patent. NECK: Trachea midline. No JVD or lymphadenopathy. Supple, nontender, no meningeal signs. CARDIOVASCULAR: Regular rate and rhythm without murmurs, gallops, or rubs. RESPIRATORY: Decreased breath sounds equal bilaterally. No wheezes, rales, or rhonchi. Crepitation in the left upper chest GASTROINTESTINAL: Abdomen soft, non-tender, nondistended. No guarding. MUSCULOSKELETAL: Extremities without clubbing, cyanosis, or edema. No joint tenderness, effusion, or edema noted. No calf tenderness. Negative Homans sign bilaterally. Neurovascularly intact NEUROLOGICAL: Awake and alert. Cranial nerves II through XII intact. Motor and sensory grossly within normal limits. Five out of 5 muscle strength in all muscle groups. Normal speech. Unable to raise left upper extremity above horizontal plane secondary to pain Laboratory Laboratory Tests Test 09/29/17 15:00 White Blood Count 12.1 Red Blood Count 4.78 Hemoglobin 13.3 Hematocrit 40.5 Mean Corpuscular Volume 84.8 Mean Corpuscular Hemoglobin 27.8 Mean Corpuscular Hemoglobin Concent 32.8 Red Cell Distribution Width 17.8 Platelet Count 245 Mean Platelet Volume 7.5 Neutrophils (%) (Auto) 93.0 Lymphocytes (%) (Auto) 2.2 Monocytes (%) (Auto) 4.3 Eosinophils (%) (Auto) 0.1 Basophils (%) (Auto) 0.4 Neutrophils # (Auto) 11.2 Lymphocytes # (Auto) 0.3 Monocytes # (Auto) 0.5 Eosinophils # (Auto) 0.0 Basophils # (Auto) 0.1 CBC Comment AUTO DIFF Differential Total Cells Counted 100 Neutrophils % (Manual) 87 Band Neutrophils % 2 Lymphocytes % 5 Monocytes % 3 Neutrophils # (Manual) 11.1 Promyelocytes 3 Differential Comment FINAL DIFF MANUAL Platelet Estimate NORMAL Platelet Morphology Comment NORMAL Tear Drop Cells 1+ Ovalocytes 1+ Prothrombin Time 10.0 Prothromb Time International Ratio 1.0 Activated Partial Thromboplast Time 19.2 Blood Urea Nitrogen 21 Creatinine 0.88 Random Glucose 114 Total Protein 7.3 Albumin 3.1 Calcium Level 9.3 Magnesium Level 2.2 Alkaline Phosphatase 81 Aspartate Amino Transf (AST/SGOT) 62 Alanine Aminotransferase (ALT/SGPT) 92 Total Bilirubin 0.4 Sodium Level 139 Potassium Level 5.0 Chloride Level 105 Carbon Dioxide Level 23.6 Anion Gap 10 Estimat Glomerular Filtration Rate 95 Result Diagram: 09/29/17 1500 09/29/17 1500 Imaging Last Impressions Chest CT 09/29/17 1509 Signed Impressions: Service Date/Time: Friday, September 29, 2017 15:20 - CONCLUSION: Dense consolidation changes right lung lung with mild volume loss. New significant subcutaneous emphysema extending into the mediastinum, right chest wall left neck There is no evidence of superior vena cava occlusion I cannot tell the status of the left subclavian or axillary vein because of the Uuyftj-p-[id number] placement. . Román Howard MD FACR Chest X-Ray 09/29/17 0000 Signed Impressions: Service Date/Time: Friday, September 29, 2017 14:35 - CONCLUSION: Subcutaneous emphysema right chest and neck; new from the comparison study. Consolidative changes right lung with volume loss right lung. Left lung clear. Román Howard MD FACR Caprini VTE Risk Assessment Caprini VTE Risk Assessment: Mod/High Risk (score >= 2) Caprini Risk Assessment Model Point Value = 1 Point Value = 2 Point Value = 3 Point Value = 5 Age 41-60 Minor surgery BMI > 25 kg/m2 Swollen legs Varicose veins or History of unexplained or recurrent spontaneous Oral contraceptives or hormone replacement Sepsis (< 1 month) Serious lung disease, including pneumonia (< 1 month) Abnormal pulmonary function Acute myocardial infarction Congestive heart failure (< 1 month) History of inflammatory bowel disease Medical patient at bed rest Age 61-74 Arthroscopic surgery Major open surgery (> 45 min) Laparoscopic surgery (> 45 min) Malignancy Confined to bed (> 72 hours) Immobilizing plaster cast Central venous access Age >= 75 History of VTE Family history of VTE Factor V Leiden Prothrombin [id number] Lupus anticoagulant Anticardiolipin antibodies Elevated serum homocysteine Heparin-induced thrombocytopenia Other congenital or acquired thrombophilia Stroke (< 1 month) Elective arthroplasty Hip, pelvis, or leg fracture Acute spinal cord injury (< 1 month) Prophylaxis Regimen Total Risk Factor Score Risk Level Prophylaxis Regimen 0-1 Low Early ambulation 2 Moderate Order ONE of the following: *Sequential Compression Device (SCD) *Heparin 5000 units SQ BID 3-4 Higher Order ONE of the following medications: *Heparin 5000 units SQ TID *Enoxaparin/Lovenox 40 mg SQ daily (WT < 150 kg, CrCl > 30 mL/min) *Enoxaparin/Lovenox 30 mg SQ daily (WT < 150 kg, CrCl > 10-29 mL/min) *Enoxaparin/Lovenox 30 mg SQ BID (WT < 150 kg, CrCl > 30 mL/min) AND/OR *Sequential Compression Device (SCD) 5 or more Highest Order ONE of the following medications: *Heparin 5000 units SQ TID (Preferred with Epidurals) *Enoxaparin/Lovenox 40 mg SQ daily (WT < 150 kg, CrCl > 30 mL/min) *Enoxaparin/Lovenox 30 mg SQ daily (WT < 150 kg, CrCl > 10-29 mL/min) *Enoxaparin/Lovenox 30 mg SQ BID (WT < 150 kg, CrCl > 30 mL/min) AND *Sequential Compression Device (SCD) Assessment and Plan Problem List: (1) T-cell lymphoma ICD Code: C85.90 - Non-Hodgkin lymphoma, unspecified, unspecified site Status: Chronic (2) Sepsis ICD Code: A41.9 - Sepsis, unspecified organism Status: Resolved Assessment and Plan This is a 43-year-old male who presents with new onset left face, neck and left upper extremity swelling. CT of the chest does not show evidence of SVC. He also complains of productive cough, shortness of breath with wheezing and chest CT with right lung consolidation with history of recently treated right lung pneumonia. He has evidence of sepsis. Left upper extremity swelling with history of T-cell lymphoma and port placement left chest. Chest CT without evidence of SVC however unable to comment on the status of the axillary and subclavian veins. Follow-up pending Doppler of the left upper extremity. Will consult oncology awaiting return call to discuss the case Sepsis with right lung consolidation recently treated for right lung pneumonia presumably from fungal infection on Vfend. Follow up lactic acid and ct empiric therapy for hospital acquired pneumonia with IV vancomycin, cefepime and Zithromax after obtaining blood and sputum cultures. Start IV steroids, nebulization and oxygen as needed. Consult infectious disease Abnormal liver function tests likely related to sepsis. Could be from Vfend DVT prophylaxis with SCD, early ambulation and pharmacological agent Discussed Condition With pt Benjamín Garcia MD September 29, 2017 17:48
--- NOTE | 2017-09-29 17:55 | RADRPT ---
EXAM DATE/TIME: 09/29/2017 17:06 [facility] COMPARISON: No previous studies available for comparison. [facility], ARM VENOUS RIGHT, June 26, 2017 INDICATIONS : Left arm swelling. MEDICAL HISTORY : Hypercholesterolemia. Hypertension. Arthritis. Asthma. Herniated discs. T-cell lymphoma. SURGICAL HISTORY : Bone marrow biopsy. Right shoulder. ENCOUNTER: Initial ACUITY: 1 day PAIN SCORE: 10/10 LOCATION: Left arm. FINDINGS: There is occlusive thrombus in the left jugular, subclavian, brachial, basilic and cephalic veins. N o flow appreciated within these vessels. CONCLUSION: 1. Extensive occlusive thrombus left neck and left arm. Db Alcantara MD on September 29, 2017 at 17:51 Board Certified Radiologist. This report was verified electronically.
[2017-09-29 17:56] LABS: LACTIC ACID SEPSIS PROTOCOL 2.4 mmol/L (0.4-2.0)
[2017-09-29] MEDS ORDERED: PILL SPLITTER OTHER PRN (19:00)
[2017-09-29 19:20] VITALS: O2SAT 98
[2017-09-29] MEDS: RESP: ALBUTEROL 2.5 MG/3 ML NEB (SCH) NEB (19:20)
[2017-09-29] MEDS: HEPARIN-D5W 25,000 U/250 ML 250 ML IV PRN (19:23)
[2017-09-29 20:17] VITALS: BP 121/87; PULSE 121; RESP 20; TEMP 98; O2SAT 93
[2017-09-29 20:22] VITALS: PULSE 121
[2017-09-29] MEDS: SODIUM CHLOR 0.9% 1000 ML INJ 1,000 ML IV SCH (20:34)
[2017-09-29] MEDS: methylPREDNISolone SOD SUCC 40 MG/1 ML VIAL IV PUSH SCH (20:34)
[2017-09-29] MEDS: HYDROmorphone HCL PF 0.5 MG/0.5 ML SYRINGE IV PUSH PRN (20:35)
[2017-09-29] MEDS: SODIUM CHLORIDE 0.9% FLUSH 10 ML FLUSH IV FLUSH SCH (21:00)
[2017-09-29] MEDS: DOCUSATE SODIUM 50 MG/SENNA 8.6 MG TAB PO SCH (21:00)
[2017-09-29] MEDS ORDERED: VANCOMYCIN INJ 2,000 MG in SODIUM CHLORID 0.9% 500 ML INJ 500 ML IV ONE (21:00)
[2017-09-29] MEDS: LORazepam 0.5 MG TAB PO PRN (21:26)
[2017-09-29] MEDS: MORPHINE SULFATE 30 MG TAB PO PRN (21:26)
[2017-09-29] MEDS: VORICONAZOLE 200 MG TAB PO SCH (21:27)
[2017-09-29] MEDS ORDERED: VANCOMYCIN 1,000 MG/NS 250 ML IV ONE ×2 (22:15)
[2017-09-29] MEDS: ACETAMINOPHEN 325 MG TAB PO PRN (22:30)
[2017-09-29 23:03] VITALS: PULSE 114
[2017-09-30] VITALS (13 sets, daily range): BP systolic 124–173; BP diastolic 91–111; PULSE 92–123; RESP 16–20; TEMP 97.6–98.5; O2SAT 90–97
[2017-09-30] MEDS: CEFEPIME INJ 2,000 MG in SODIUM CHLORIDE 0.9% INJ 100 ML IV SCH ×3 (00:35→17:30)
[2017-09-30 02:05] LABS: AUTOMATED NEUTROPHIL # 9.8 TH/MM3 (1.8-7.7); BASOPHIL % 0.5 % (0.0-2.0); EOSINOPHIL % 0.1 % (0.0-4.0); HEMATOCRIT 37.4 % (39.0-51.0); HEMOGLOBIN 12.3 GM/DL (13.0-17.0); LYMPH % 1.7 % (9.0-44.0); LYMPHOCYTE # 0.2 TH/MM3 (1.0-4.8); MEAN CELL VOLUME 85.6 FL (80.0-100.0); MEAN CORPUSCULAR HEMOGLOBIN 28.2 PG (27.0-34.0); MEAN PLATELET VOLUME 7.2 FL (7.0-11.0); MONO % 2.4 % (0.0-8.0); MONOCYTE # 0.2 TH/MM3 (0-0.9); NEUT % 95.3 % (16.0-70.0); PLATELET COUNT 199 TH/MM3 (150-450); RED BLOOD COUNT 4.37 MIL/MM3 (4.50-5.90); RED CELL DISTRIBUTION WIDTH 17.8 % (11.6-17.2); WHITE BLOOD COUNT 10.2 TH/MM3 (4.0-11.0)
[2017-09-30 02:39] LABS: ALBUMIN 2.6 GM/DL (3.4-5.0); ALKALINE PHOSPHATASE 71 U/L (45-117); ALT (GPT) 83 U/L (12-78); AST (GOT) 34 U/L (15-37); BICARBONATE 21.9 MEQ/L (21.0-32.0); BLOOD UREA NITROGEN 18 MG/DL (7-18); CALCIUM 8.2 MG/DL (8.5-10.1); CHLORIDE 108 MEQ/L (98-107); CREATININE 0.95 MG/DL (0.60-1.30); GLOMERULAR FILTRATION RATE 87 ML/MIN (>89); GLUCOSE,RANDOM 152 MG/DL (74-106); SODIUM (NA) 140 MEQ/L (136-145); TOTAL BILIRUBIN ADULT 0.3 MG/DL (0.2-1.0); TOTAL PROTEIN 6.2 GM/DL (6.4-8.2)
[2017-09-30] MEDS: HYDROmorphone HCL PF 0.5 MG/0.5 ML SYRINGE IV PUSH PRN ×3 (02:56→17:23)
[2017-09-30] MEDS: LORazepam 0.5 MG TAB PO PRN ×3 (03:29→19:32)
[2017-09-30] MEDS: MORPHINE SULFATE 30 MG TAB PO PRN ×3 (03:29→19:33)
[2017-09-30 05:06] LABS: BANDS 4 % (0-6); LYMPHOCYTES 3 % (9-44); METAMYELOCYTES 1 % (0-1); MONOCYTES 1 % (0-8); NEUTROPHIL # MANUAL DIFF 9.8 TH/MM3 (1.8-7.7); POLYS (SEG NEUTROPHILS) 91 % (16-70)
[2017-09-30 05:08] LABS: OVALOCYTES 1+ (NORMAL); TEARDROP RBCS 1+ (NORMAL)
[2017-09-30 05:10] LABS: POLYCHROMASIA 2.4 % (0.0-1.9)
[2017-09-30] MEDS: SODIUM CHLOR 0.9% 1000 ML INJ 1,000 ML IV SCH ×2 (05:25→21:17)
[2017-09-30] MEDS: VANCOMYCIN 1,500 MG/NS 500 ML IV SCH ×6 (05:47→21:00)
[2017-09-30] MEDS: RESP: ALBUTEROL 2.5 MG/3 ML NEB (SCH) NEB ×5 (08:13→20:19)
[2017-09-30] MEDS: METHADONE HCL 10 MG TAB PO SCH (09:00)
[2017-09-30] MEDS: SODIUM CHLORIDE 0.9% FLUSH 10 ML FLUSH IV FLUSH SCH ×2 (09:00→20:36)
[2017-09-30] MEDS: VORICONAZOLE 200 MG TAB PO SCH ×2 (10:07→21:03)
[2017-09-30] MEDS: DOCUSATE SODIUM 50 MG/SENNA 8.6 MG TAB PO SCH ×2 (10:07→21:03)
[2017-09-30] MEDS: methylPREDNISolone SOD SUCC 40 MG/1 ML VIAL IV PUSH SCH ×2 (10:16→21:07)
[2017-09-30] MEDS: HEPARIN-D5W 25,000 U/250 ML 250 ML IV PRN (10:26)
--- NOTE | 2017-09-30 11:14 | PD.ONC.PN ---
Subjective Subjective Remarks Afebrile Patient reports he had no fever prior to admission States his L arm is so swollen he can hardly bend it Breathing feels OK Still with drainage from R lateral chest previous VATS procedure. Objective Data Date Time Temp Pulse Resp B/P (MAP) Pulse Ox O2 Delivery O2 Flow Rate FiO2 09/30/17 10:12 96 Nasal Cannula 2.00 09/30/17 09:14 97.6 102 20 173/111 (131) 92 09/30/17 04:29 16 09/30/17 04:04 95 09/30/17 04:00 97.8 92 16 129/98 (108) 97 09/30/17 03:25 16 09/30/17 00:33 98.2 97 20 145/94 (111) 97 09/29/17 23:30 16 09/29/17 23:03 114 09/29/17 20:22 121 09/29/17 20:17 98.0 121 20 121/87 (98) 93 09/29/17 19:20 98 Nasal Cannula 2.00 09/29/17 18:37 18 09/29/17 16:22 18 09/29/17 15:00 98 Nasal Cannula 2.00 09/29/17 15:00 102 22 123/78 (93) 97 Nasal Cannula 2.00 09/29/17 15:00 102 22 123/78 (93) 97 Nasal Cannula 2.00 09/29/17 14:13 97.5 103 24 154/95 (114) 93 09/30/17 09/30/17 09/30/17 07:00 15:00 23:00 Intake Total 480 ml Output Total 600 ml Balance -120 ml Result Diagram: 09/30/17 0158 09/30/17 0158 Laboratory Results Laboratory Tests Test 09/29/17 15:00 09/29/17 17:10 09/29/17 22:20 09/30/17 01:58 White Blood Count 12.1 TH/MM3 10.2 TH/MM3 Red Blood Count 4.78 MIL/MM3 4.37 MIL/MM3 Hemoglobin 13.3 GM/DL 12.3 GM/DL Hematocrit 40.5 % 37.4 % Mean Corpuscular Volume 84.8 FL 85.6 FL Mean Corpuscular Hemoglobin 27.8 PG 28.2 PG Mean Corpuscular Hemoglobin Concent 32.8 % 33.0 % Red Cell Distribution Width 17.8 % 17.8 % Platelet Count 245 TH/MM3 199 TH/MM3 Mean Platelet Volume 7.5 FL 7.2 FL Neutrophils (%) (Auto) 93.0 % 95.3 % Lymphocytes (%) (Auto) 2.2 % 1.7 % Monocytes (%) (Auto) 4.3 % 2.4 % Eosinophils (%) (Auto) 0.1 % 0.1 % Basophils (%) (Auto) 0.4 % 0.5 % Neutrophils # (Auto) 11.2 TH/MM3 9.8 TH/MM3 Lymphocytes # (Auto) 0.3 TH/MM3 0.2 TH/MM3 Monocytes # (Auto) 0.5 TH/MM3 0.2 TH/MM3 Eosinophils # (Auto) 0.0 TH/MM3 0.0 TH/MM3 Basophils # (Auto) 0.1 TH/MM3 0.0 TH/MM3 CBC Comment AUTO DIFF AUTO DIFF Differential Total Cells Counted 100 100 Neutrophils % (Manual) 87 % 91 % Band Neutrophils % 2 % 4 % Lymphocytes % 5 % 3 % Monocytes % 3 % 1 % Neutrophils # (Manual) 11.1 TH/MM3 9.8 TH/MM3 Promyelocytes 3 % Differential Comment FINAL DIFF MANUAL FINAL DIFF MANUAL Platelet Estimate NORMAL NORMAL Platelet Morphology Comment NORMAL NORMAL Tear Drop Cells 1+ 1+ Ovalocytes 1+ 1+ Prothrombin Time 10.0 SEC Prothromb Time International Ratio 1.0 RATIO Activated Partial Thromboplast Time 19.2 SEC 34.1 SEC Blood Urea Nitrogen 21 MG/DL 18 MG/DL Creatinine 0.88 MG/DL 0.95 MG/DL Random Glucose 114 MG/DL 152 MG/DL Total Protein 7.3 GM/DL 6.2 GM/DL Albumin 3.1 GM/DL 2.6 GM/DL Calcium Level 9.3 MG/DL 8.2 MG/DL Magnesium Level 2.2 MG/DL 2.0 MG/DL Alkaline Phosphatase 81 U/L 71 U/L Aspartate Amino Transf (AST/SGOT) 62 U/L 34 U/L Alanine Aminotransferase (ALT/SGPT) 92 U/L 83 U/L Total Bilirubin 0.4 MG/DL 0.3 MG/DL Sodium Level 139 MEQ/L 140 MEQ/L Potassium Level 5.0 MEQ/L 4.8 MEQ/L Chloride Level 105 MEQ/L 108 MEQ/L Carbon Dioxide Level 23.6 MEQ/L 21.9 MEQ/L Anion Gap 10 MEQ/L 10 MEQ/L Estimat Glomerular Filtration Rate 95 ML/MIN 87 ML/MIN Lactic Acid Level 2.4 mmol/L 2.8 mmol/L Metamyelocytes 1 % Polychromasia 2.4 % Test 09/30/17 08:41 Activated Partial Thromboplast Time 42.9 SEC Culture Results Microbiology Date/Time Source Procedure Growth Status 09/29/17 17:10 Blood Peripheral Aerobic Blood Culture Pending Received 09/29/17 17:10 Blood Peripheral Anaerobic Blood Culture Pending Received 09/29/17 17:00 Blood Peripheral Aerobic Blood Culture Pending Received 09/29/17 17:00 Blood Peripheral Anaerobic Blood Culture Pending Received Imaging Studies Last [address] 09/29/17 1509 Signed Impressions: Service Date/Time: Friday, September 29, 2017 15:20 - CONCLUSION: Dense consolidation changes right lung lung with mild volume loss. New significant subcutaneous emphysema extending into the mediastinum, right chest wall left neck There is no evidence of superior vena cava occlusion I cannot tell the status of the left subclavian or axillary vein because of the [id number] placement. . Román Howard MD FACR Administered Medications Medications (Trade) Dose Ordered Sig/Suzan Route PRN Reason Start Time Stop Time Status Last Admin Dose Admin Cefepime HCl 2000 mg/Sodium Chloride 100 ml @ 200 mls/hr Q8H IV 09/30/17 01:00 09/30/17 10:07 Methylprednisolone Sodium Succinate (SoluMEDROL INJ) 40 mg Q12H IV PUSH 09/29/17 20:00 09/30/17 10:16 Sodium Chloride 1,000 ml @ 84 mls/hr [id number] IV 09/29/17 17:30 09/29/17 20:34 Albuterol Sulfate (Albuterol Neb) 2.5 mg QID NEB NEB 09/29/17 20:00 09/30/17 10:09 Lorazepam (Ativan) 0.5 mg Q6HR PRN PO anxiety 09/29/17 17:30 09/30/17 03:29 Morphine Sulfate (Msir) 30 mg Q6HR PRN PO PAIN1-10 09/29/17 17:30 09/30/17 03:29 Voriconazole (Vfend) 200 mg Q12HR PO 09/29/17 21:00 09/30/17 10:07 Acetaminophen (Tylenol) 650 mg Q4H PRN PO TEMP > 100.4 09/29/17 17:30 09/29/17 22:30 Senna/Docusate Sodium (Naa-Colace) 1 tab BID PO 09/29/17 21:00 09/30/17 10:07 Heparin Sodium/ Dextrose 250 ml @ 17 mls/hr TITRATE PRN IV Coagulation Management 09/29/17 20:00 09/30/17 10:26 Vancomycin HCl 1500 mg/Sodium Chloride 515 ml @ 257.5 mls/ hr Q8H IV 09/30/17 05:00 09/30/17 05:47 Hydromorphone HCl (Dilaudid Pf Inj) 1 mg Q6H PRN IV PUSH INTRACTABLE PAIN 09/29/17 20:30 09/30/17 10:07 Objective Remarks GENERAL: Chronically ill-appearing, fatigued younger male resting in bed in no obvious distress SKIN: Warm and dry. ++ crepitus palpated to left upper chest wall. Dressing covering right lateral chest wall. HEAD: Normocephalic. EYES: No scleral icterus. No injection or drainage. NECK: Supple. Left arm edema extends up into the left shoulder and neck CARDIOVASCULAR: Regular rate and rhythm RESPIRATORY: Diminished on the left. Occasional rhonchi on the right. On 2L NC. GASTROINTESTINAL: Abdomen soft, non-tender, nondistended. EXTREMITIES: No cyanosis. Significant edema to left upper extremity into shoulder and neck MUSCULOSKELETAL: Adequate muscle tone. NEUROLOGICAL: No obvious focal deficit. Awake, alert, and oriented x3. Patient with new high-pitched voice Assessment/Plan Problem List: (1) DVT of upper extremity (deep vein thrombosis) ICD Codes: I82.629 - Acute embolism and thrombosis of deep veins of unspecified upper extremity Status: Acute Plan: -- On heparin gtt -- CT chest shows no SVC syndrome. (2) T-cell lymphoma ICD Codes: C85.90 - Non-Hodgkin lymphoma, unspecified, unspecified site Status: Chronic Plan: -- Status post [facility] chemotherapy in clinic. --In remission --Recent biopsy of lung showed no lymphoma involvement (3) Subcutaneous crepitus ICD Codes: R23.9 - Unspecified skin changes Status: Acute (4) Lung consolidation ICD Codes: J18.1 - Lobar pneumonia, unspecified organism Status: Acute Assessment 42-year-old male with T-cell lymphoma admitted with new left upper extremity extensive DVT Plan 1. Continue heparin 2. Continue antibiotics; appreciate ID input Problem Qualifiers (1) DVT of upper extremity (deep vein thrombosis): Qualified Codes: I82.622 - Acute embolism and thrombosis of deep veins of left upper extremity Karyn Julien September 30, 2017 11:14
[2017-09-30] MEDS ORDERED: THIAMINE HCL 100 MG TAB PO ONE (15:00)
--- NOTE | 2017-09-30 15:04 | HHI.PR ---
Subjective Remarks Patient reports that pain in left arm continues. Exacerbation of chronic pain. Would like to try basal MS Contin Objective Vital Signs Date Time Temp Pulse Resp B/P (MAP) Pulse Ox O2 Delivery O2 Flow Rate FiO2 09/30/17 10:12 96 Nasal Cannula 2.00 09/30/17 09:14 97.6 102 20 173/111 (131) 92 09/30/17 04:29 16 09/30/17 04:04 95 09/30/17 04:00 97.8 92 16 129/98 (108) 97 09/30/17 03:25 16 09/30/17 00:33 98.2 97 20 145/94 (111) 97 09/29/17 23:30 16 09/29/17 23:03 114 09/29/17 20:22 121 09/29/17 20:17 98.0 121 20 121/87 (98) 93 09/29/17 19:20 98 Nasal Cannula 2.00 09/29/17 18:37 18 09/29/17 16:22 18 I/O 09/29/17 09/29/17 09/29/17 09/30/17 09/30/17 09/30/17 07:00 15:00 23:00 07:00 15:00 23:00 Intake Total 480 ml Output Total 600 ml Balance -120 ml Intake Oral 480 ml Output Urine Total 600 ml Result Diagram: 09/30/17 0158 09/30/17 0158 Objective Remarks GENERAL: Patient sitting up in bed. Appears uncomfortable. SKIN: Warm and dry. HEAD: Normocephalic. EYES: No scleral icterus. No injection or drainage. NECK: Right neck with subcutaneous emphysema. Left upper extremity from shoulder on down with tense edema. Radial pulse intact. CARDIOVASCULAR: Regular rate and rhythm without murmurs, gallops, or rubs. RESPIRATORY: Breath sounds equal bilaterally. No accessory muscle use. GASTROINTESTINAL: Abdomen soft, non-tender, nondistended. MUSCULOSKELETAL: No cyanosis.Left upper extremity from shoulder on down with tense edema. Radial pulse intact. BACK: Nontender without obvious deformity. No CVA tenderness. A/P Assessment and Plan This is a 43-year-old male who presents with new onset left face, neck and left upper extremity swelling. CT of the chest does not show evidence of SVC. He also complains of productive cough, shortness of breath with wheezing and chest CT with right lung consolidation with history of recently treated right lung pneumonia. He has evidence of sepsis. //history of T-cell lymphoma and port placement left chest. = Oncology following. Appreciate assistance. //Acute extensiveleft SC, jugular, left arm DVTs. //Left upper extremity edema. -Continue Heparin Gtt. vascular surgery consulted. Appreciate assistance. //Sepsis with right lung consolidation recently treated for right lung pneumonia presumably from fungal infection on Vfend. Follow up lactic acid and ct empiric therapy for hospital acquired pneumonia with IV vancomycin, cefepime and Zithromax after obtaining blood and sputum cultures. Start IV steroids, nebulization and oxygen as needed. Consult infectious disease = Continue broad-spectrum antibiotics as per infectious disease.. Pneumonia, as well as extensive left upper extremity DVT. Lactic acid 2.8. Repeat //Right neck subcutaneous emphysema //Still with drainage from right lateral chest previous VATS procedure = Cardiothoracic surgery consult. Appreciate assistance. //Transaminitis on admission likely related to sepsis. Could be from Vfend. Improving. Discharge Planning Patient with extensive left upper extremity, left jugular DVT, pneumonia. We will reconsult PT in the next couple days. Jose Garrett MD September 30, 2017 15:04
[2017-09-30] MEDS ORDERED: ENALAPRILAT 1.25 MG/ML VIAL IV PUSH PRN (15:15)
--- NOTE | 2017-09-30 16:15 | PD.VS.CON ---
History of Present Illness Chief Complaint: L UE swelling and DVT Consult Requested by: Medical service History of Present Illness 42 yo male with T cell lymphoma who has undergone chemo-XRT and was adm yesterday with L UE swelling and R neck swelling. + prior DVT associated with PICC line. No family history of DVT. No motor dysfunction. Past/Family/Social History Past Medical History T cell lymphoma, s/p chemo and XRT pneumonia Past Surgical History shoulder surgery L chest wall infusaport lung biopsy Social History from [place] Family History NC; no VTE Home Medications Active Scripts Lorazepam (Ativan) 0.5 Mg Tab, 0.5 MG PO Q6HR Y for anxiety, #56 TAB Prov:J Luis Parker MD, R1 09/20/17 Prednisone (Prednisone) 20 Mg Tab, 20 MG PO DAILY for 14 Days, #14 TAB 0 Refills Prov:J Luis Parker MD, R1 09/20/17 Prednisone (Prednisone) 20 Mg Tab, 40 MG PO DAILY for 7 Days, #14 TAB 0 Refills Take 40 mg (2 tablets) daily for 5 days Prov:J Luis Parker MD, R1 09/20/17 Voriconazole (Vfend) 200 Mg Tab, 200 MG PO Q12H, #28 TAB Continue for 14 days and then will be switched to prophylaxis dosage by oncologist. Prov:J Luis Parker MD, R1 09/20/17 Lactulose Liq (Lactulose Liq) 10 Gm/15 Ml Soln, 30 ML PO Q6H Y for CONSTIPATION , #30 ML 0 Refills Prov:J Luis Parker MD, R1 09/14/17 Methadone (Methadone) 10 Mg Tab, 2.5 MG PO DAILY for Pain Management, #14 TAB Prov:Amanda Gallegos MD 09/14/17 Morphine IR (Morphine IR) 30 Mg Tab, 30 MG PO Q6HR Y for PAIN1-10 for 10 Days, # 40 TAB Prov:Amanda Gallegos MD 09/14/17 Coded Allergies: No Known Allergies (Unverified , 09/29/17) Review of Systems Respiratory: COMPLAINS OF: Shortness of breath Musculoskeletal: COMPLAINS OF: Muscle aches, Joint Swelling Physical Exam Vitals/I&O Date Time Temp Pulse Resp B/P (MAP) Pulse Ox O2 Delivery O2 Flow Rate FiO2 09/30/17 10:12 96 Nasal Cannula 2.00 09/30/17 09:14 97.6 102 20 173/111 (131) 92 09/30/17 04:29 16 09/30/17 04:04 95 09/30/17 04:00 97.8 92 16 129/98 (108) 97 09/30/17 03:25 16 09/30/17 00:33 98.2 97 20 145/94 (111) 97 09/29/17 23:30 16 09/29/17 23:03 114 09/29/17 20:22 121 09/29/17 20:17 98.0 121 20 121/87 (98) 93 09/29/17 19:20 98 Nasal Cannula 2.00 09/29/17 18:37 18 09/29/17 16:22 18 09/30/17 09/30/17 09/30/17 07:00 15:00 23:00 Intake Total 480 ml Output Total 600 ml Balance -120 ml Neuro: alert, no apparent distress HEENT: NC/AT; mildly swollen neck, symmetric Neck: trachea midline Heart: reg rate Lungs: + crepitus B upper lung flores distant BS Vascular: palpable UE pulses, 2+ Extremities: marked swelling L UE fingers to shoulder Laboratory Tests Test 09/29/17 17:10 09/29/17 22:20 09/30/17 01:58 09/30/17 08:41 Lactic Acid Level 2.4 2.8 White Blood Count 10.2 Red Blood Count 4.37 Hemoglobin 12.3 Hematocrit 37.4 Mean Corpuscular Volume 85.6 Mean Corpuscular Hemoglobin 28.2 Mean Corpuscular Hemoglobin Concent 33.0 Red Cell Distribution Width 17.8 Platelet Count 199 Mean Platelet Volume 7.2 Neutrophils (%) (Auto) 95.3 Lymphocytes (%) (Auto) 1.7 Monocytes (%) (Auto) 2.4 Eosinophils (%) (Auto) 0.1 Basophils (%) (Auto) 0.5 Neutrophils # (Auto) 9.8 Lymphocytes # (Auto) 0.2 Monocytes # (Auto) 0.2 Eosinophils # (Auto) 0.0 Basophils # (Auto) 0.0 CBC Comment AUTO DIFF Differential Total Cells Counted 100 Neutrophils % (Manual) 91 Band Neutrophils % 4 Lymphocytes % 3 Monocytes % 1 Neutrophils # (Manual) 9.8 Metamyelocytes 1 Differential Comment FINAL DIFF MANUAL Platelet Estimate NORMAL Platelet Morphology Comment NORMAL Polychromasia 2.4 Tear Drop Cells 1+ Ovalocytes 1+ Activated Partial Thromboplast Time 34.1 42.9 Blood Urea Nitrogen 18 Creatinine 0.95 Random Glucose 152 Total Protein 6.2 Albumin 2.6 Calcium Level 8.2 Magnesium Level 2.0 Alkaline Phosphatase 71 Aspartate Amino Transf (AST/SGOT) 34 Alanine Aminotransferase (ALT/SGPT) 83 Total Bilirubin 0.3 Sodium Level 140 Potassium Level 4.8 Chloride Level 108 Carbon Dioxide Level 21.9 Anion Gap 10 Estimat Glomerular Filtration Rate 87 Procalcitonin 0.14 Date/Time Source Procedure Growth Status 09/30/17 13:45 Blood Other Aerobic Blood Culture Pending Received 09/30/17 13:45 Blood Other Anaerobic Blood Culture Pending Received Last [address] 09/29/17 1509 Signed Impressions: Service Date/Time: Friday, September 29, 2017 15:20 - CONCLUSION: Dense consolidation changes right lung lung with mild volume loss. New significant subcutaneous emphysema extending into the mediastinum, right chest wall left neck There is no evidence of superior vena cava occlusion I cannot tell the status of the left subclavian or axillary vein because of the [id number] placement. . Román Howard MD FACR Upper Extremity Ultrasound 09/29/17 0000 Signed Impressions: Service Date/Time: Friday, September 29, 2017 17:06 - CONCLUSION: 1. Extensive occlusive thrombus left neck and left arm. Db Alcantara MD Chest X-Ray 09/29/17 0000 Signed Impressions: Service Date/Time: Friday, September 29, 2017 14:35 - CONCLUSION: Subcutaneous emphysema right chest and neck; new from the comparison study. Consolidative changes right lung with volume loss right lung. Left lung clear. Román Howard MD FACR Assessment and Plan Plan T cell lyphoma, crepitus from ? lung biopsy. New onset L UE swelling and duplex c/w extensive DVT, most likely catheter related. 1. Systemic anticoagulation as you are doing 2. Elevation and even compression for comfort 3. Rec general surgery consult for port removal and replacement on RIGHT side if still needed for therapy 4. If swelling not resolve with catheter removal, could consider venogram/PUBLISHER ASSISTANT or even lysis. Anthony Patrick MD FASC RPVI lacer and tier [facility] - [facility] V[facility] Surgery at [facility] [phone] Anthony Patrick MD September 30, 2017 16:15
--- NOTE | 2017-09-30 16:38 | PD.ID.CON ---
History of Present Illness Service ID Consult Requested By Reason for Consult Evaluation and Mment of recurrent pneumonia. Primary Care Physician Unknown Diagnoses: History of Present Illness is a 42 y/o CM with PMHx of T cell lymphoma s/p chemo and radiation therapy. This is his 3rd admission at the hospital for recurrent pneumonias. He has undergone a bronchoscopy twice with all culture no growth so far. He also had an open lung biopsy last admission as infiltrates worsened despite IV antibiotics and antifungals. Lung biopsy c/w acute lung injury possibly chemoinduced injury. No fungal elements identified and PCP stain was negative. He has had extensive workup and results of most serology are now available. Legionella serovar 6 positive IgG. Mycoplasma IgG positive. He has however responded to some extent to Vfend and since serology in an Immune compromised person may not be reliable a decision was made to stop antibiotics as he did not respond to antibacterials including for atypical pneumonia and he was discharged home on Voriconazole (Vfend trade name). He reports compliance with meds. He reports being home except 1 day he stepped out for dinner with family. No sick contacts Risk factor: multiple hospitalizations, Immune compromised Port in place left chest wall. No recent travel. History of significant mold exposure in prior home. No recent change in AC at home or any other significant exposures. Kids and pets are doing well with no illnesses. Since being discharged he has seen and he mentioned to her about Right side facial swelling 1 week [employer]. He developed change in voice in last 1 week with nasal squeakiness. He reports no episodes of apnea or choking sensation but does experience shortness of breath off and on. Denies any difficulty swallowing. He denies pooling of saliva. He reports since a day prior to admission his noticed left side face, left chest wall, left UE swelling. She initially noted air like bubbles under skin. He underwent imaging at [place] with extensive DVT involving veins of LUE and neck left side. He reports cough with occ expectoration. Denies any chest pain. CT showed consolidation increased since last admission. He also reports serous discharge from Rt chest wall at prior chest tube site. ID consulted for evaluation and Mment of possible HCAP in an IC patient. Review of Systems Constitutional: DENIES: Diaphoretic episodes, Fatigue, Fever, Weight gain, Weight loss, Chills, Dizziness, Change in appetite, Night Sweats Endocrine: DENIES: Heat/cold intolerance, Polydipsia, Polyuria, Polyphagia Eyes: DENIES: Blurred vision, Diplopia, Eye inflammation, Eye pain, Vision loss , Photosensitivity, Double Vision Ears, nose, mouth, throat: DENIES: Tinnitus, Hearing loss, Vertigo, Nasal discharge, Oral lesions, Throat pain, Hoarseness, Ear Pain, Running Nose, Epistaxis, Sinus Pain, Toothache, Odynophagia Respiratory: COMPLAINS OF: Cough, Sputum production, Shortness of breath, DENIES: Apneas, Snoring, Wheezing, Hemoptysis Cardiovascular: DENIES: Chest pain, Palpitations, Syncope, Dyspnea on Exertion , PND, Lower Extremity Edema, Orthopnea, Claudication Gastrointestinal: DENIES: Abdominal pain, Black stools, Bloody stools, Constipation, Diarrhea, Nausea, Vomiting, Difficulty Swallowing, Anorexia Genitourinary: DENIES: Sexual dysfunction, Urinary frequency, Urinary incontinence, Urgency, Hematuria, Dysuria, Nocturia, Penile Discharge, Testicular Pain, Testicular Swelling Musculoskeletal: DENIES: Joint pain, Muscle aches, Stiffness, Joint Swelling, Back pain, Neck pain Integumentary: DENIES: Abnormal pigmentation, Nail changes, Pruritus, Rash Hematologic/lymphatic: DENIES: Bruising, Lymphadenopathy Immunologic/allergic: DENIES: Eczema, Urticaria Neurologic: DENIES: Abnormal gait, Headache, Localized weakness, Paresthesias, Seizures, Speech Problems, Tremor, Poor Balance Psychiatric: DENIES: Anxiety, Confusion, Mood changes, Depression, Hallucinations, Agitation, Suicidal Ideation, Homicidal Ideation, Delusions Except as stated in HPI: all other systems reviewed are Neg (lack of sleep. reports hallucinations when on pain meds.) Past Family Social History Allergies: Coded Allergies: No Known Allergies (Unverified , 09/29/17) Past Medical History 1. T-cell lymphoblastic lymphoma. 2. Asthma. 3. History of herniated disk. 4. History of pneumonia. Past Surgical History Open lung biopsy Port placement, thoracentesis, CT-guided biopsy of mediastinal mass. Reported Medications Reported Meds & Active Scripts Active Ativan (Lorazepam) 0.5 Mg Tab 0.5 Mg PO Q6HR PRN Prednisone 20 Mg Tab 20 Mg PO DAILY 14 Days Prednisone 20 Mg Tab 40 Mg PO DAILY 7 Days Take 40 mg (2 tablets) daily for 5 days Vfend (Voriconazole) 200 Mg Tab 200 Mg PO Q12H Continue for 14 days and then will be switched to prophylaxis dosage by oncologist. Lactulose Liq (Lactulose) 10 Gm/15 Ml Soln 30 Ml PO Q6H PRN Methadone (Methadone HCl) 10 Mg Tab 2.5 Mg PO DAILY Morphine IR (Morphine Sulfate) 30 Mg Tab 30 Mg PO Q6HR PRN 10 Days Active Ordered Medications Current Medications Medications (Trade) Dose Ordered Sig/Suzan Route Start Time Stop Time Status Last Admin Pharmacy Profile Note 0 ml @ 0 mls/hr UNSCH OTHER 09/29/17 17:15 (NS Flush) 2 ml UNSCH PRN IV FLUSH 09/29/17 17:15 (NS Flush) 2 ml BID IV FLUSH 09/29/17 21:00 Azithromycin 500 mg/Sodium Chloride 250 ml @ 250 mls/hr Q24H IV 09/30/17 20:00 (SoluMEDROL INJ) 40 mg Q12H IV PUSH 09/29/17 20:00 09/30/17 10:16 (Zofran Inj) 4 mg Q6H PRN IV PUSH 09/29/17 17:15 Sodium Chloride 1,000 ml @ 84 mls/hr [id number] IV 09/29/17 17:30 09/29/17 20:34 (Albuterol Neb) 2.5 mg QID NEB NEB 09/29/17 20:00 09/30/17 17:09 (Albuterol Neb) 0.63 mg Q4HR NEB PRN NEB 09/29/17 17:30 (Ativan) 0.5 mg Q6HR PRN PO 09/29/17 17:30 09/30/17 12:09 (Dolophine) 2.5 mg DAILY PO 09/30/17 09:00 (Msir) 30 mg Q6HR PRN PO 09/29/17 17:30 09/30/17 12:10 (Vfend) 200 mg Q12HR PO 09/29/17 21:00 09/30/17 10:07 (Tylenol) 650 mg Q4H PRN PO 09/29/17 17:30 09/29/17 22:30 (Narcan Inj) 0.4 mg UNSCH PRN IV PUSH 09/29/17 17:30 (Naa-Colace) 1 tab BID PO 09/29/17 21:00 09/30/17 10:07 (Milk Of Magnesia Liq) 30 ml Q12H PRN PO 09/29/17 17:30 (Senokot) 17.2 mg Q12H PRN PO 09/29/17 17:30 (Dulcolax Supp) 10 mg DAILY PRN RECTAL 09/29/17 17:30 (Lactulose Liq) 30 ml DAILY PRN PO 09/29/17 17:30 Heparin Sodium/ Dextrose 250 ml @ 17 mls/hr TITRATE PRN IV 09/29/17 20:00 09/30/17 10:26 (Pill Splitter) 1 ea UNSCH PRN OTHER 09/29/17 19:00 Vancomycin HCl 1500 mg/Sodium Chloride 515 ml @ 257.5 mls/ hr Q8H IV 09/30/17 05:00 09/30/17 17:24 ([facility] Ordered Lab Info) SPECIFIC LAB TO BE DRAWN:VANCOMYCIN TROUGH DATE TO... ONCE ONCE .XX 09/30/17 20:45 09/30/17 20:46 (Dilaudid Pf Inj) 1 mg Q6H PRN IV PUSH 09/29/17 20:30 09/30/17 17:23 (Vitamin B1) 100 mg DAILY PO 10/01/17 09:00 (Oramorph Sr) 15 mg Q8HR PO 09/30/17 22:00 (Vasotec Inj) 1.25 mg Q6H PRN IV PUSH 09/30/17 15:15 Sodium Chloride 1,000 ml @ 999 mls/hr BOLUS ONCE IV 09/30/17 18:15 09/30/17 19:15 Piperacillin Sod/ Tazobactam Sod 100 ml @ 200 mls/hr Q6H IV 09/30/17 20:00 Sodium Chloride 1,000 ml @ 999 mls/hr BOLUS ONCE IV 09/30/17 18:30 09/30/17 19:30 Sodium Chloride 1,000 ml @ 999 mls/hr BOLUS ONCE IV 09/30/17 18:30 09/30/17 19:30 Sodium Chloride 1,000 ml @ 999 mls/hr BOLUS ONCE IV 09/30/17 18:30 09/30/17 19:30 Family History reviewed Social History has 3 children, 3 pets. Worked in [employer] in past. 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 Mold exposure in an older home. Lived In [facility] and [place]. No major travels. Physical Exam Vital Signs Vital Signs Date Time Temp Pulse Resp B/P (MAP) Pulse Ox O2 Delivery O2 Flow Rate FiO2 09/30/17 10:12 96 Nasal Cannula 2.00 09/30/17 09:14 97.6 102 20 173/111 (131) 92 09/30/17 04:29 16 09/30/17 04:04 95 09/30/17 04:00 97.8 92 16 129/98 (108) 97 09/30/17 03:25 16 09/30/17 00:33 98.2 97 20 145/94 (111) 97 09/29/17 23:30 16 09/29/17 23:03 114 09/29/17 20:22 121 09/29/17 20:17 98.0 121 20 121/87 (98) 93 09/29/17 19:20 98 Nasal Cannula 2.00 09/29/17 18:37 18 Physical Exam GENERAL: This is a well-nourished, well-developed patient, in no apparent distress. SKIN: No rashes, ecchymoses or lesions. Cool and dry. HEAD: Atraumatic. Normocephalic. No temporal or scalp tenderness. EYES: Pupils equal round and reactive. Extraocular motions intact. No scleral icterus. No injection or drainage. ENT: Nose without bleeding, purulent drainage or septal hematoma. Throat without erythema, tonsillar hypertrophy or exudate. Uvula midline. Airway patent. Face and Neck: Trachea midline. Supple, nontender, no meningeal signs. Face swollen, voice squeaky and nasal twang, left neck and LUE swollen and tense. No tenderness. Unable to bend elbow completely. No erythema or induration. Rt face swollen. No crepitus appreciated. CARDIOVASCULAR: Regular rate and rhythm without murmurs, gallops, or rubs. RESPIRATORY: AE decreased R > L. Creps R>L. GASTROINTESTINAL: Abdomen soft, non-tender, nondistended. Obese abdomen. MUSCULOSKELETAL: Extremities without clubbing, cyanosis, or edema. No joint tenderness, effusion, or edema noted. No calf tenderness. Negative Homans sign bilaterally. NEUROLOGICAL: Awake and alert. Cranial nerves II through XII intact. Motor and sensory grossly within normal limits. Five out of 5 muscle strength in all muscle groups. Normal speech. Port site deep non tender no erythema or induration. Psych cooperative, pleasant. Laboratory Laboratory Tests Test 09/29/17 17:10 09/29/17 22:20 09/30/17 01:58 09/30/17 08:41 Lactic Acid Level 2.4 2.8 White Blood Count 10.2 Red Blood Count 4.37 Hemoglobin 12.3 Hematocrit 37.4 Mean Corpuscular Volume 85.6 Mean Corpuscular Hemoglobin 28.2 Mean Corpuscular Hemoglobin Concent 33.0 Red Cell Distribution Width 17.8 Platelet Count 199 Mean Platelet Volume 7.2 Neutrophils (%) (Auto) 95.3 Lymphocytes (%) (Auto) 1.7 Monocytes (%) (Auto) 2.4 Eosinophils (%) (Auto) 0.1 Basophils (%) (Auto) 0.5 Neutrophils # (Auto) 9.8 Lymphocytes # (Auto) 0.2 Monocytes # (Auto) 0.2 Eosinophils # (Auto) 0.0 Basophils # (Auto) 0.0 CBC Comment AUTO DIFF Differential Total Cells Counted 100 Neutrophils % (Manual) 91 Band Neutrophils % 4 Lymphocytes % 3 Monocytes % 1 Neutrophils # (Manual) 9.8 Metamyelocytes 1 Differential Comment FINAL DIFF MANUAL Platelet Estimate NORMAL Platelet Morphology Comment NORMAL Polychromasia 2.4 Tear Drop Cells 1+ Ovalocytes 1+ Activated Partial Thromboplast Time 34.1 42.9 Blood Urea Nitrogen 18 Creatinine 0.95 Random Glucose 152 Total Protein 6.2 Albumin 2.6 Calcium Level 8.2 Magnesium Level 2.0 Alkaline Phosphatase 71 Aspartate Amino Transf (AST/SGOT) 34 Alanine Aminotransferase (ALT/SGPT) 83 Total Bilirubin 0.3 Sodium Level 140 Potassium Level 4.8 Chloride Level 108 Carbon Dioxide Level 21.9 Anion Gap 10 Estimat Glomerular Filtration Rate 87 Procalcitonin 0.14 Date/Time Source Procedure Growth Status 09/30/17 13:45 Blood Other Aerobic Blood Culture Pending Received 09/30/17 13:45 Blood Other Anaerobic Blood Culture Pending Received Result Diagram: 09/30/17 0158 09/30/17 0158 Imaging Last Impressions Chest CT 09/29/17 1509 Signed Impressions: Service Date/Time: Friday, September 29, 2017 15:20 - CONCLUSION: Dense consolidation changes right lung lung with mild volume loss. New significant subcutaneous emphysema extending into the mediastinum, right chest wall left neck There is no evidence of superior vena cava occlusion I cannot tell the status of the left subclavian or axillary vein because of the [id number] placement. . Román Howard MD FACR Upper Extremity Ultrasound 09/29/17 0000 Signed Impressions: Service Date/Time: Friday, September 29, 2017 17:06 - CONCLUSION: 1. Extensive occlusive thrombus left neck and left arm. Db Alcantara MD Chest X-Ray 09/29/17 0000 Signed Impressions: Service Date/Time: Friday, September 29, 2017 14:35 - CONCLUSION: Subcutaneous emphysema right chest and neck; new from the comparison study. Consolidative changes right lung with volume loss right lung. Left lung clear. 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 Abnormal LFTs: Sepsis, Vfend. Left neck and LUE extensive DVT Subcut emphysema and in mediastinum T cell lymphoma s/p chemo and radiation Immunocompromised Recs Continue Cefepime IV Continue Vanco IV (target 15-20 for PNA, possible bacteremia) Continue Azithro IV (for atypical PNA) Continue Voriconazole for aspergillosis empiric Blood cultures from port. dagoberto CTS ok to draw from port. dagoberto CTS: CT site serous drainage and emphysema Consult CTS Consult Vascular surgery Heparin per primary team dagoberto Villa above plan: and vascular input about getting port taken out. She will see pt and address. dw patient and : above plan. dw lost charge card clerk patients feedback on current stay. dw RN about PIV sites and port blood cultures. Sputum culture if can expectorate and sputum for legionella culture Follow cultures UA with reflex to cx. Follow clinically Follow LFTs Follow QT interval while on Vfend and Azithro. 12 lead EKG in am and when symptomatic. Time spent in excess of 80 mins dw multiple team members of health care team. Sraah Dwyer MD September 30, 2017 16:38
--- NOTE | 2017-09-30 17:28 | MB ---
cc: Yong Frey MD, Sohit K MD DATE: 09/30/2017 HISTORY OF PRESENT ILLNESS: The patient known to our service. A 42-year-old male with history of hypertension, T-cell lymphoma, status post chemo, recently discharged 10 days ago after being treated for right lung pneumonia, possible fungal etiology on Vfend at home and also bronchoscopy, right video-assisted thoracoscopic surgery, right upper lobe biopsy. Biopsy did show organizing diffuse alveolar damage, acute lung injury, wedge lung biopsy. Gram stains were negative for Pneumocystis and fungal organisms. The chest tube was discontinued. Chest tube was removed without any difficulty. The patient went home, had extensive amount of drainage from the chest tube site and then developed some subcutaneous emphysema extending into the mediastinum of the right chest wall, left neck. No evidence of pulmonary emboli. No pericardial effusion. No mediastinal adenopathy. We were consulted to reevaluate. The right lung had significant consolidation. He is on IV vancomycin, IV Zithromax, cefepime for hospital-acquired pneumonia. PAST MEDICAL HISTORY: T-cell lymphoma followed by Dr. Leigh, chemo induced anemia, asthma. PAST SURGICAL HISTORY: Thoracentesis, CT guided mediastinal mass biopsy, port placement. ALLERGIES: NO KNOWN ALLERGIES. MEDICATIONS: Home medications include: Vfend, methadone, morphine, lorazepam, lactulose, prednisone. REVIEW OF SYSTEMS: As above in the HPI. PHYSICAL EXAMINATION: VITAL SIGNS: Blood pressure 170/90, heart rate 102, 97.6. GENERAL: Awake, alert, in no acute distress. HEENT: Head is normocephalic, atraumatic. Pupils equal and reactive. He has got some subcutaneous emphysema to the chest, the neck, both upper arms. CHEST: He has a small chest tube site that was intact, that was cleaned and a Vaseline gauze was placed. ABDOMEN: Soft, nontender, no masses. No organomegaly. EXTREMITIES: No cyanosis, clubbing, or edema. LABORATORY DATA: Shows hemoglobin 12, hematocrit of 37, white cell count of 10, platelet count of 199. Sodium 140, potassium 4.8, BUN of 18, creatinine 0.95. Procalcitonin 0.14. INR 1.0. Other radiological exams: The left upper extremity, there is an occlusive thrombus, the left jugular, subclavian, brachial basilic and cephalic veins, extensive thrombus left neck and left arm. IMPRESSION: 1. History of T-cell lymphoma, port placement, left chest. Oncology following. 2. Acute extensive left subclavian jugular left arm DVT with left arm extremity edema, on heparin drip. 3. Sepsis with right lung consolidation, recent right VATS, on IV antibiotics. Right neck subcutaneous emphysema. No surgical intervention warranted at this time. We will monitor closely. Further plan per Dr. Yong Frey. Dictated by: JEMMA Braswell MD TEODORA Menezes/MAR , 03:34 PM , 04:04 PM
[2017-09-30] MEDS ORDERED: SODIUM CHLOR 0.9% 1000 ML INJ 1,000 ML IV ONE ×4 (18:15→18:30)
--- NOTE | 2017-09-30 18:48 | RADRPT ---
EXAM DATE/TIME: 09/30/2017 18:27 [place] COMPARISON: CHEST SINGLE AP, September 29, 2017, 14:35. CT THORAX W CONTRAST, September 29, 2017, 15:20. INDICATIONS : Shortness of breath. Eval diaphragm. MEDICAL HISTORY : Hypercholesterolemia. Hypertension. Arthritis. Asthma. Herniated discs. T-cell lymphoma. SURGICAL HISTORY : Bone marrow biopsy. Right shoulder. ENCOUNTER: Subsequent ACUITY: 3 days PAIN SCORE: 0/10 LOCATION: Bilateral chest FINDINGS: There has been little or no change in appearance of the chest. There is subcutaneous emphysema and pn eumomediastinum. Near-complete consolidative change and volume loss in the right lung with rightward cardiomediastinal shift. Elevation of right diaphragm. Left lung is stable clear and well expanded. CONCLUSION: No significant change Bienvenido Bear MD on September 30, 2017 at 18:44 Board Certified Radiologist. This report was verified electronically.
[2017-09-30 18:53] LABS: BILIRUBIN, URINE NEG (NEG); BLOOD, URINE NEG (NEG); GLUCOSE,URINE 300 mg/dL (NEG); HYALINE CAST, URINE 6 /lpf (RARE); KETONE, URINE TRACE mg/dL (NEG); MUCUS URINE MOD /lpf (OCC); NITRITE,URINE NEG (NEG); SQUAMOUS EPITHELIAL CELL URINE <1 /hpf (0-5); URINE COLOR YELLOW (YELLW/STRAW); URINE LEUKOCYTE ESTERASE NEG (NEG)
[2017-09-30 19:39] LABS: BASOPHIL % 0.2 % (0.0-2.0); HEMATOCRIT 36.7 % (39.0-51.0); LYMPH % 1.6 % (9.0-44.0); LYMPHOCYTE # 0.1 TH/MM3 (1.0-4.8); MEAN CELL VOLUME 85.4 FL (80.0-100.0); MEAN CORPUSCULAR HGB CONC 32.8 % (32.0-36.0); MEAN PLATELET VOLUME 7.5 FL (7.0-11.0); MONO % 3.8 % (0.0-8.0); MONOCYTE # 0.3 TH/MM3 (0-0.9); NEUT % 94.4 % (16.0-70.0); PLATELET COUNT 196 TH/MM3 (150-450); RED CELL DISTRIBUTION WIDTH 17.9 % (11.6-17.2); WHITE BLOOD COUNT 8.5 TH/MM3 (4.0-11.0)
--- NOTE | 2017-09-30 19:45 | PD.CONS ---
HPI Service Critical Care Medicine Consult Requested By Primary Care Physician Unknown History of Present Illness 43-year-old male with a history of hypertension and T-cell lymphoma status post chemo. He was recently discharged over 10 days ago after being treated for right lung pneumonia presumably fungal etiology on Vfend status post bronchoscopy and VATS. He has been compliant with therapy and has been doing well until this morning when he noticed left face and neck swelling which progressed involving the left chest and left upper extremity with crepitation. CT of the chest does not show evidence of SVC however shows extensive occlusive thrombus left neck and left arm. He was also complaining of productive cough yellow phlegm and shortness of breath with wheezing. Denies fever or chills. In the ED he has tachycardia, tachypnea and leukocytosis with right lung consolidation on chest CT and has been started on IV vancomycin, IV Zithromax and IV cefepime for hospital-acquired pneumonia. Blood cultures were obtained. He was admitted to hospitalist service however his clinical picture deteriorated, including elevated lactic acid and the patient was transferred to ICU for higher level of care. Review of Systems ROS Unable to obtain due to moderate respiratory distress Past Family Social History Allergies: Coded Allergies: No Known Allergies (Unverified , 09/29/17) Past Medical History Asthma, resolved once moved to [place] 5 yrs ago T-cell lymphoma Past Surgical History Shoulder surgery Port placement left upper chest VATS Reported Medications Reported Meds & Active Scripts Active Ativan (Lorazepam) 0.5 Mg Tab 0.5 Mg PO Q6HR PRN Prednisone 20 Mg Tab 20 Mg PO DAILY 14 Days Prednisone 20 Mg Tab 40 Mg PO DAILY 7 Days Take 40 mg (2 tablets) daily for 5 days Vfend (Voriconazole) 200 Mg Tab 200 Mg PO Q12H Continue for 14 days and then will be switched to prophylaxis dosage by oncologist. Lactulose Liq (Lactulose) 10 Gm/15 Ml Soln 30 Ml PO Q6H PRN Methadone (Methadone HCl) 10 Mg Tab 2.5 Mg PO DAILY Morphine IR (Morphine Sulfate) 30 Mg Tab 30 Mg PO Q6HR PRN 10 Days Active Ordered Medications Current Medications Medications (Trade) Dose Ordered Sig/Suzan Route PRN Reason Start Time Stop Time Status Last Admin Dose Admin Pharmacy Profile Note 0 ml @ 0 mls/hr UNSCH OTHER 09/29/17 17:15 Sodium Chloride (NS Flush) 2 ml UNSCH PRN IV FLUSH FLUSH AFTER USING IV ACCESS 09/29/17 17:15 Sodium Chloride (NS Flush) 2 ml BID IV FLUSH 09/29/17 21:00 Azithromycin 500 mg/Sodium Chloride 250 ml @ 250 mls/hr Q24H IV 09/30/17 20:00 Ondansetron HCl (Zofran Inj) 4 mg Q6H PRN IV PUSH NAUSEA 09/29/17 17:15 Sodium Chloride 1,000 ml @ 84 mls/hr [id number] IV 09/29/17 17:30 09/29/17 20:34 Albuterol Sulfate (Albuterol Neb) 2.5 mg QID NEB NEB 09/29/17 20:00 09/30/17 17:09 Albuterol Sulfate (Albuterol Neb) 0.63 mg Q4HR NEB PRN NEB sob 09/29/17 17:30 Lorazepam (Ativan) 0.5 mg Q6HR PRN PO anxiety 09/29/17 17:30 09/30/17 19:32 Methadone HCl (Dolophine) 2.5 mg DAILY PO 09/30/17 09:00 Morphine Sulfate (Msir) 30 mg Q6HR PRN PO PAIN1-10 09/29/17 17:30 09/30/17 19:33 Voriconazole (Vfend) 200 mg Q12HR PO 09/29/17 21:00 09/30/17 10:07 Acetaminophen (Tylenol) 650 mg Q4H PRN PO TEMP > 100.4 09/29/17 17:30 09/29/17 22:30 Naloxone HCl (Narcan Inj) 0.4 mg UNSCH PRN IV PUSH SEE LABEL COMMENTS 09/29/17 17:30 Senna/Docusate Sodium (Naa-Colace) 1 tab BID PO 09/29/17 21:00 09/30/17 10:07 Magnesium Hydroxide (Milk Of Magnesia Liq) 30 ml Q12H PRN PO Mild constipation 09/29/17 17:30 Sennosides (Senokot) 17.2 mg Q12H PRN PO Moderate constipation 09/29/17 17:30 Bisacodyl (Dulcolax Supp) 10 mg DAILY PRN RECTAL SEVERE CONSITIPATION 09/29/17 17:30 Lactulose (Lactulose Liq) 30 ml DAILY PRN PO SEVERE CONSITIPATION 09/29/17 17:30 Heparin Sodium/ Dextrose 250 ml @ 17 mls/hr TITRATE PRN IV Coagulation Management 09/29/17 20:00 09/30/17 10:26 Miscellaneous (Pill Splitter) 1 ea UNSCH PRN OTHER SEE LABEL COMMENTS 09/29/17 19:00 Vancomycin HCl 1500 mg/Sodium Chloride 515 ml @ 257.5 mls/ hr Q8H IV 09/30/17 05:00 09/30/17 17:24 Miscellaneous Information ([facility] [place] [facility] Ordered Lab Info) SPECIFIC LAB TO BE DRAWN:VANCOMYCIN TROUGH DATE TO... ONCE ONCE .XX 09/30/17 20:45 09/30/17 20:46 Thiamine HCl (Vitamin B1) 100 mg DAILY PO 10/01/17 09:00 Enalaprilat (Vasotec Inj) 1.25 mg Q6H PRN IV PUSH SBP>160, DBP>90 09/30/17 15:15 Piperacillin Sod/ Tazobactam Sod 100 ml @ 200 mls/hr Q6H IV 09/30/17 20:00 Methylprednisolone Sodium Succinate (SoluMEDROL INJ) 30 mg Q12H IV PUSH 09/30/17 20:00 Morphine Sulfate (Morphine Inj) 5 mg Q3HR PRN IV PUSH breakthrough 09/30/17 19:15 Family History Coronary artery disease Social History Denies alcohol, tobacco, or illicit drug abuse. Good social support Physical Exam Vital Signs Vital Signs Date Time Temp Pulse Resp B/P (MAP) Pulse Ox O2 Delivery O2 Flow Rate FiO2 09/30/17 19:32 131/96 (108) 09/30/17 18:00 98.3 123 18 159/91 (113) 91 09/30/17 16:00 106 09/30/17 12:00 96 09/30/17 10:12 96 Nasal Cannula 2.00 09/30/17 09:14 97.6 102 20 173/111 (131) 92 09/30/17 08:00 107 09/30/17 04:29 16 09/30/17 04:04 95 09/30/17 04:00 97.8 92 16 129/98 (108) 97 09/30/17 03:25 16 09/30/17 00:33 98.2 97 20 145/94 (111) 97 09/29/17 23:30 16 09/29/17 23:03 114 09/29/17 20:22 121 09/29/17 20:17 98.0 121 20 121/87 (98) 93 Physical Exam GENERAL: Well-nourished, well-developed patient. SKIN: Warm and dry. HEAD: Normocephalic. EYES: No scleral icterus. No injection or drainage. NECK: Supple, trachea midline. No JVD or lymphadenopathy. CARDIOVASCULAR: Regular rate and rhythm without murmurs, gallops, or rubs. RESPIRATORY: Breath sounds equal bilaterally. Some accessory muscle use. GASTROINTESTINAL: Abdomen soft, non-tender, nondistended. MUSCULOSKELETAL: No cyanosis, or edema. BACK: Nontender without obvious deformity. NEURO EXAM: GCS: 15 Mental Status: The patient is alert and oriented to person, place, and time with normal speech. Laboratory Laboratory Tests Test 09/29/17 22:20 09/30/17 01:58 09/30/17 08:41 09/30/17 16:44 Lactic Acid Level 2.8 6.3 White Blood Count 10.2 Red Blood Count 4.37 Hemoglobin 12.3 Hematocrit 37.4 Mean Corpuscular Volume 85.6 Mean Corpuscular Hemoglobin 28.2 Mean Corpuscular Hemoglobin Concent 33.0 Red Cell Distribution Width 17.8 Platelet Count 199 Mean Platelet Volume 7.2 Neutrophils (%) (Auto) 95.3 Lymphocytes (%) (Auto) 1.7 Monocytes (%) (Auto) 2.4 Eosinophils (%) (Auto) 0.1 Basophils (%) (Auto) 0.5 Neutrophils # (Auto) 9.8 Lymphocytes # (Auto) 0.2 Monocytes # (Auto) 0.2 Eosinophils # (Auto) 0.0 Basophils # (Auto) 0.0 CBC Comment AUTO DIFF Differential Total Cells Counted 100 Neutrophils % (Manual) 91 Band Neutrophils % 4 Lymphocytes % 3 Monocytes % 1 Neutrophils # (Manual) 9.8 Metamyelocytes 1 Differential Comment FINAL DIFF MANUAL Platelet Estimate NORMAL Platelet Morphology Comment NORMAL Polychromasia 2.4 Tear Drop Cells 1+ Ovalocytes 1+ Activated Partial Thromboplast Time 34.1 42.9 59.0 Blood Urea Nitrogen 18 Creatinine 0.95 Random Glucose 152 Total Protein 6.2 Albumin 2.6 Calcium Level 8.2 Magnesium Level 2.0 Alkaline Phosphatase 71 Aspartate Amino Transf (AST/SGOT) 34 Alanine Aminotransferase (ALT/SGPT) 83 Total Bilirubin 0.3 Sodium Level 140 Potassium Level 4.8 Chloride Level 108 Carbon Dioxide Level 21.9 Anion Gap 10 Estimat Glomerular Filtration Rate 87 Procalcitonin 0.14 Test 09/30/17 18:00 09/30/17 18:05 09/30/17 18:30 09/30/17 19:08 Urine Color YELLOW Urine Turbidity CLEAR Urine pH 5.0 Urine Specific [place] 1.026 Urine Protein 30 Urine Glucose (UA) 300 Urine Ketones TRACE Urine Occult Blood NEG Urine Nitrite NEG Urine Bilirubin NEG Urine Urobilinogen LESS THAN 2.0 Urine Leukocyte Esterase NEG Urine RBC LESS THAN 1 Urine WBC LESS THAN 1 Urine Squamous Epithelial Cells <1 Urine Hyaline Casts 6 Urine Mucus MOD Microscopic Urinalysis Comment CULT NOT INDICATED Blood Gas Puncture Site RT RADIAL Blood Gas Patient Temperature 98.6 Blood Gas HCO3 18 Blood Gas Base Excess -6.9 Blood Gas Oxygen Saturation 89 Arterial Blood pH 7.35 Arterial Blood Partial Pressure CO2 33 Arterial Blood Partial Pressure O2 68 Arterial Blood Oxygen Content 15.3 Arterial Blood Carboxyhemoglobin 1.4 Arterial Blood Methemoglobin 1.5 Blood Gas Hemoglobin 12.1 Oxygen Delivery Device NASAL CANNULA Blood Gas Liter Flow 2 Date/Time Source Procedure Growth Status 09/30/17 13:45 Blood Other Aerobic Blood Culture Pending Received 09/30/17 13:45 Blood Other Anaerobic Blood Culture Pending Received 09/30/17 18:05 Sputum Expectorated Sputum Gram Stain Pending Received 09/30/17 18:05 Sputum Expectorated Sputum Sputum Culture Pending Received 09/30/17 18:00 Urine Random Urine Legionella Antigen Pending Received Result Diagram: 09/30/17 0158 09/30/17 0158 Imaging Last 24 hours Impressions Chest X-Ray 09/30/17 0000 Signed Impressions: Service Date/Time: Saturday, September 30, 2017 18:27 - CONCLUSION: No significant change Bienvenido Bear MD Septic Shock Reassessment Septic shock perfusion: reassessment completed Assessment and Plan Assessment and Plan Sepsis -Pneumonia/empyema -Broad-spectrum antibiotics per infectious disease -Follow-up cultures -De-escalate per sensitivity Extensive occlusive thrombus left neck and left arm -Heparin drip T-cell lymphoma -Per medical oncology Bronchial asthma -DuoNeb's Hypertension -Enalapril as needed to keep his BP less than 150 DVT GI prophylaxis -Bayron's and SCDs -Heparin drip -Pepcid Critical Care: The total critical care time was 35 minutes. Time to perform other separately billable procedures was not included in the critical care time. Ross Dee MD September 30, 2017 7:45 pm
[2017-09-30 20:09] LABS: BANDS 10 % (0-6); LYMPHOCYTES 3 % (9-44); METAMYELOCYTES 1 % (0-1); MONOCYTES 2 % (0-8); MYELOCYTES 2 % (0-0); NEUTROPHIL # MANUAL DIFF 8.1 TH/MM3 (1.8-7.7); POLYS (SEG NEUTROPHILS) 82 % (16-70)
[2017-09-30 20:10] LABS: OVALOCYTES 1+ (NORMAL); TEARDROP RBCS 1+ (NORMAL)
[2017-09-30] MEDS: MORPHINE SULFATE 8 MG/ML INJ IV PUSH PRN (20:36)
--- NOTE | 2017-09-30 20:37 | EKG ---
Date Performed: 09/29/2017 Time Performed: 15:42:36 PTAGE: 42 years EKG: Sinus rhythm POSSIBLE LEFT ATRIAL ENLARGEMENT POSSIBLE RIGHT VENTRICULAR CONDUCTION DELAY Nonspecific ST-T wave c hanges. BORDERLINE ECG PREVIOUS TRACING : 09/19/2017 16.38 DOCTOR: Arvin Blount Interpretating Date/Time 09/30/2017 20:37:15
[2017-09-30] MEDS ORDERED: PHARMACY ORDERED LAB ONE (20:45)
--- NOTE | 2017-09-30 21:00 | MB ---
cc: Aysha Leigh MD,Benjamín Urrutia MD DATE: 09/30/2017 DATE OF : 1975 DATE OF SERVICE: 09/30/2017 REFERRING PHYSICIAN: Dr. Garcia. CHIEF COMPLAINT: Dr. Garcia requests a consultation for Mr. Turner regarding history of T-cell lymphoblastic lymphoma associated with new left upper extremity deep vein thromboses. HISTORY OF PRESENT ILLNESS: Mr. 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 He was in remission on a CT-PET scan in 06/2017. He has had repeated admissions to the hospital for worsening right lung infiltrate. He was initially thought to have fungal related infection. He has had extensive evaluation, repeat bronchoscopy. Cultures have been negative. There is a questionable concern for Legionnaire. Pathology from the open lung biopsy on last admission showed organizing diffuse alveolar damage. There is no recurrence of his lymphoma. He has had complications from the chest tube with leaking from the chest tube site. He was seen in clinic last week. He was assisted by an Interventional Radiologist as to the dressing to the chest wall. He was maintained on his dose of steroids at 40 mg once daily of prednisone. He was pending a repeat CT scan of the chest as well as the neck. He describes pulling a muscle in the right neck. He was pending this evaluation. The night prior to his admission, he presented with acute onset left arm swelling. He denies any significant respiratory symptoms. CT scan of the chest showed dense consolidation of the right lung with mild volume loss. There is new significant subcutaneous emphysema extending into the mediastinum and the right chest wall, left neck. Radiology cannot tell the status of the left subclavian axillary vein because of the Infusaport placement. The ultrasound, however, showed extensive occlusive thrombus in the left neck and left arm. Clinically, he has a swollen left arm, very tender. Because of the acute presentation, he was started on unfractionated heparin on admission. His PTT is 59 seconds. He feels that the arm is the same. He remains tachycardic. He has mild thrombocytopenia relative to his lactic acid is elevated. Glucose is elevated. His PTT is at 59 seconds. REASON FOR CONSULTATION: Hematology/Oncology is consulted in light of his history of a T-cell lymphoblastic lymphoma and new left upper extremity unprovoked DVT. His upper extremity DVT is on the same side of his port. REVIEW OF SYSTEMS: He denies any fevers. He has been taking Tylenol regularly. He still has shortness of breath. He has leaking from the chest tube site, albeit improved. He has gained a significant amount of weight. He has a hanley face. His pain is managed with morphine orally at home. He is requesting IV morphine here. PAST MEDICAL HISTORY: T-cell lymphoblastic lymphoma, mild chemotherapy-induced anemia, asthma, right lung infiltrate/pneumonitis. Right lung effusion. PAST SURGICAL HISTORY: Port placement, thoracentesis, CT-guided mediastinal biopsy of mass, bronchoscopy x2, right chest tube placement. ALLERGIES: NO KNOWN DRUG ALLERGIES. FAMILY HISTORY: No family history of cancer. SOCIAL HISTORY: He is . He lives with his and 2 daughters. He is a never smoker. He denies any alcohol or illicit drug use. MEDICATIONS: 1. Vitamin B1 2. Morphine extended release. 3. Azithromycin. 4. Piperacillin. 5. Tazobactam. 6. Vancomycin. 7. Voriconazole 8. Naa-Colace. 9. Albuterol. 10. Solu-Medrol. 11. Lorazepam p.r.n. PHYSICAL EXAMINATION: VITAL SIGNS: Temperature 98.3, heart rate 123, respiratory rate 18, blood pressure 159/91, saturation 91%. GENERAL: Mr. Turner is a well-developed, well-nourished man. He has a Toro's appearance. HEAD AND NECK: He has swelling of the face and neck. LUNGS: Diminished breath sounds on the right side. There is dullness to percussion at the right lung base. HEART: Reveals tachycardia. ABDOMEN: Benign. LOWER EXTREMITIES: With no edema. Left arm has significant swelling. There is tightness of the left arm and left shoulder at the site of the MediPort. LABORATORY DATA: PTT 59 seconds. Hemoglobin 12.3. Lactic acid 6.3. ASSESSMENT AND PLAN: Mr. Turner is a 42-year-old man with history of T-cell lymphoblastic lymphoma, complicated by a right lung infiltrate/pneumonitis. His course is further complicated by extensive left upper extremity deep vein thromboses associated with his MediPort. The case was discussed at length with Dr. Dwyer who plans to continue him on his voriconazole. He is also treating him for Legionnaires in light of the culture findings. He is continued on his voriconazole and the steroids, yet there is a questionable new infiltrate in the right lung. Clinically, he seems to be stable from the right lung and is prompted to come in because of the left upper arm swelling which turned out to be a deep vein thrombosis. He has an extensive left upper extremity deep vein thromboses. Dr. Patrick was consulted in Vascular Surgery. There is a concern about the etiology of the new significant subcutaneous emphysema extending into the mediastinum. His right chest tube was removed a week ago. He has never received radiation therapy. He has received 5 cycles of CHOP chemotherapy. I concur with continuing fractionated heparin. However, in light of his symptoms, I would recommend removal of the catheter. The case was discussed with Interventional Radiology. We will continue unfractionated heparin overnight with plans for Interventional Radiology to do local thrombolytic therapy. I am concerned about his superior vena cava involvement of clot. There is facial swelling although this could be related to his chronic steroid use. The extensive nature of left upper extremity clot and incomplete visualization of the vessels due to the port is concerning. Local thrombolytic therapy in light of the acute onset of clot may help with his acute symptoms. A randomized study showed that long-term it does not make a difference. We would recommend removing the port as he would not need this for a transplant. Furthermore, it is the inciting precipitating factor for his extensive clot. [employer] is consulted for the increase in lactic acidosis. He is covered in terms of the antibiotic therapy. Defer to Surgery regarding the findings of subcutaneous emphysema and its significance. His breakthrough medication is switched to IV morphine. His long-acting pain medication is continued. MD ANURAG Viera/SOLANGE , 07:19 PM , 08:59 PM
[2017-09-30] MEDS: ACETAMINOPHEN 325 MG TAB PO PRN (21:01)
[2017-09-30] MEDS: AZITHROMYCIN INJ 500 MG in SODIUM CHLOR 0.9% 250 ML INJ 250 ML IV SCH (21:09)
[2017-09-30 21:11] LABS: ALBUMIN 2.9 GM/DL (3.4-5.0); ALKALINE PHOSPHATASE 79 U/L (45-117); ALT (GPT) 89 U/L (12-78); AST (GOT) 44 U/L (15-37); BLOOD UREA NITROGEN 16 MG/DL (7-18); CALCIUM 8.8 MG/DL (8.5-10.1); CHLORIDE 103 MEQ/L (98-107); CREATININE 1.25 MG/DL (0.60-1.30); GLOMERULAR FILTRATION RATE 63 ML/MIN (>89); GLUCOSE,RANDOM 243 MG/DL (74-106); SODIUM (NA) 136 MEQ/L (136-145); TOTAL BILIRUBIN ADULT 0.3 MG/DL (0.2-1.0); TOTAL PROTEIN 6.4 GM/DL (6.4-8.2)
[2017-09-30] MEDS ORDERED: MORPHINE SULFATE 15 MG CONTROLLED RELEASE TAB PO SCH (22:00)
[2017-09-30] MEDS: PIPERACIL-TAZO 4.5 GM PREMIX 100 ML IV SCH (22:08)
[2017-09-30] MEDS ORDERED: CHLORHEXIDINE GLUCONATE 2 % 1 PACK (2 CLOTHS)(extra cloths) TOPICAL PRN (23:45)
[2017-10-01] VITALS (11 sets, daily range): BP systolic 139–160; BP diastolic 78–90; PULSE 77–105; RESP 13–23; TEMP 98–98.9; O2SAT 92–100
[2017-10-01] MEDS: MORPHINE SULFATE 8 MG/ML INJ IV PUSH PRN ×5 (00:02→22:51)
[2017-10-01 00:06] LABS: LACTIC ACID SEPSIS PROTOCOL 5.5 mmol/L (0.4-2.0)
[2017-10-01] MEDS: LORazepam 0.5 MG TAB PO PRN ×2 (01:58→20:18)
[2017-10-01] MEDS: PIPERACIL-TAZO 4.5 GM PREMIX 100 ML IV SCH ×4 (01:59→20:17)
[2017-10-01] MEDS ORDERED: VANCOMYCIN 1,500 MG/NS 500 ML IV SCH ×2 (02:00)
[2017-10-01] MEDS: SODIUM CHLOR 0.9% 1000 ML INJ 1,000 ML IV SCH ×2 (02:00→14:29)
[2017-10-01] MEDS: MORPHINE SULFATE 30 MG TAB PO PRN (02:16)
[2017-10-01] MEDS: CHLORHEXIDINE GLUCONATE 2 % 1 PACK (2 CLOTHS)(taper/protocol) TOPICAL SCH (04:53)
[2017-10-01] MEDS: ACETAMINOPHEN 325 MG TAB PO PRN ×2 (06:06→20:20)
[2017-10-01] MEDS: methylPREDNISolone SOD SUCC 40 MG/1 ML VIAL IV PUSH SCH ×2 (08:00→20:18)
--- NOTE | 2017-10-01 08:30 | HHI.IDPN ---
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 This is his 3rd admission at the hospital for recurrent pneumonias. He has undergone a bronchoscopy twice with all culture no growth so far. He also had an open lung biopsy last admission as infiltrates worsened despite IV antibiotics and antifungals. Lung biopsy c/w acute lung injury possibly chemoinduced injury. No fungal elements identified and PCP stain was negative. He has had extensive workup and results of most serology are now available. Legionella serovar 6 positive IgG. Mycoplasma IgG positive. He has however responded to some extent to Vfend and since serology in an Immune compromised person may not be reliable a decision was made to stop antibiotics as he did not respond to antibacterials including for atypical pneumonia and he was discharged home on Voriconazole (Vfend trade name). He reports compliance with meds. He reports being home except 1 day he stepped out for dinner with family. No sick contacts Risk factor: multiple hospitalizations, Immune compromised Port in place left chest wall. No recent travel. History of significant mold exposure in prior home. No recent change in AC at home or any other significant exposures. Kids and pets are doing well with no illnesses. 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 He developed change in voice in last 1 week with nasal squeakiness. He reports no episodes of apnea or choking sensation but does experience shortness of breath off and on. Denies any difficulty swallowing. He denies pooling of saliva. He reports since a day prior to admission his noticed left side face, left chest wall, left UE swelling. She initially noted air like bubbles under skin. He underwent imaging at [facility] with extensive DVT involving veins of LUE and neck left side. He reports cough with occ expectoration. Denies any chest pain. CT showed consolidation increased since last admission. He also reports serous discharge from Rt chest wall at prior chest tube site. ID consulted for evaluation and Mment of possible HCAP in an IC patient. Overnight events reviewed No fevers No rash No diarrhea Transferred to ICU for elevated lactic acid and sepsis. UO ok. Dw who informs me the left eye is swollen and ? ptosis. Antibiotics Cefepime IV Vanco IV Azithro IV Voriconazole. Lines Port site ok PIV sites ok. Past Medical History reviewed Allergies: Coded Allergies: No Known Allergies (Unverified , 09/29/17) Objective . Vital Signs Date Time Temp Pulse Resp B/P (MAP) Pulse Ox O2 Delivery O2 Flow Rate FiO2 10/01/17 06:00 99 10/01/17 04:00 103 10/01/17 04:00 98.9 103 23 147/78 (101) 92 10/01/17 02:00 92 10/01/17 00:00 98.8 101 22 139/86 (103) 98 10/01/17 00:00 101 09/30/17 20:30 98.5 115 18 124/96 (105) 94 09/30/17 20:19 95 Nasal Cannula 4.00 09/30/17 19:32 131/96 (108) 09/30/17 18:30 Nasal Cannula 4.00 09/30/17 18:00 98.3 123 18 159/91 (113) 91 09/30/17 16:00 106 09/30/17 16:00 92 Nasal Cannula 2.00 09/30/17 12:00 96 09/30/17 10:12 96 Nasal Cannula 2.00 09/30/17 09:14 97.6 102 20 173/111 (131) 92 . Laboratory Tests Test 09/29/17 15:00 09/30/17 01:58 09/30/17 19:08 White Blood Count 12.1 TH/MM3 10.2 TH/MM3 8.5 TH/MM3 Red Blood Count 4.78 MIL/MM3 4.37 MIL/MM3 4.30 MIL/MM3 Hemoglobin 13.3 GM/DL 12.3 GM/DL 12.0 GM/DL Hematocrit 40.5 % 37.4 % 36.7 % Mean Corpuscular Volume 84.8 FL 85.6 FL 85.4 FL Mean Corpuscular Hemoglobin 27.8 PG 28.2 PG 28.0 PG Mean Corpuscular Hemoglobin Concent 32.8 % 33.0 % 32.8 % Red Cell Distribution Width 17.8 % 17.8 % 17.9 % Platelet Count 245 TH/MM3 199 TH/MM3 196 TH/MM3 Mean Platelet Volume 7.5 FL 7.2 FL 7.5 FL Neutrophils (%) (Auto) 93.0 % 95.3 % 94.4 % Lymphocytes (%) (Auto) 2.2 % 1.7 % 1.6 % Monocytes (%) (Auto) 4.3 % 2.4 % 3.8 % Eosinophils (%) (Auto) 0.1 % 0.1 % 0.0 % Basophils (%) (Auto) 0.4 % 0.5 % 0.2 % Neutrophils # (Auto) 11.2 TH/MM3 9.8 TH/MM3 8.0 TH/MM3 Lymphocytes # (Auto) 0.3 TH/MM3 0.2 TH/MM3 0.1 TH/MM3 Monocytes # (Auto) 0.5 TH/MM3 0.2 TH/MM3 0.3 TH/MM3 Eosinophils # (Auto) 0.0 TH/MM3 0.0 TH/MM3 0.0 TH/MM3 Basophils # (Auto) 0.1 TH/MM3 0.0 TH/MM3 0.0 TH/MM3 CBC Comment AUTO DIFF AUTO DIFF AUTO DIFF Differential Total Cells Counted 100 100 100 Neutrophils % (Manual) 87 % 91 % 82 % Band Neutrophils % 2 % 4 % 10 % Lymphocytes % 5 % 3 % 3 % Monocytes % 3 % 1 % 2 % Neutrophils # (Manual) 11.1 TH/MM3 9.8 TH/MM3 8.1 TH/MM3 Promyelocytes 3 % Differential Comment FINAL DIFF MANUAL FINAL DIFF MANUAL FINAL DIFF MANUAL Platelet Estimate NORMAL NORMAL NORMAL Platelet Morphology Comment NORMAL NORMAL NORMAL Tear Drop Cells 1+ 1+ 1+ Ovalocytes 1+ 1+ 1+ Metamyelocytes 1 % 1 % Polychromasia 2.4 % Myelocytes 2 % Laboratory Tests Test 09/29/17 15:00 09/29/17 17:10 09/29/17 22:20 09/30/17 01:58 Blood Urea Nitrogen 21 MG/DL 18 MG/DL Creatinine 0.88 MG/DL 0.95 MG/DL Random Glucose 114 MG/DL 152 MG/DL Total Protein 7.3 GM/DL 6.2 GM/DL Albumin 3.1 GM/DL 2.6 GM/DL Calcium Level 9.3 MG/DL 8.2 MG/DL Magnesium Level 2.2 MG/DL 2.0 MG/DL Alkaline Phosphatase 81 U/L 71 U/L Aspartate Amino Transf (AST/SGOT) 62 U/L 34 U/L Alanine Aminotransferase (ALT/SGPT) 92 U/L 83 U/L Total Bilirubin 0.4 MG/DL 0.3 MG/DL Sodium Level 139 MEQ/L 140 MEQ/L Potassium Level 5.0 MEQ/L 4.8 MEQ/L Chloride Level 105 MEQ/L 108 MEQ/L Carbon Dioxide Level 23.6 MEQ/L 21.9 MEQ/L Anion Gap 10 MEQ/L 10 MEQ/L Estimat Glomerular Filtration Rate 95 ML/MIN 87 ML/MIN Lactic Acid Level 2.4 mmol/L 2.8 mmol/L Test 09/30/17 08:41 09/30/17 16:44 09/30/17 19:08 09/30/17 22:45 Procalcitonin 0.14 ng/mL Lactic Acid Level 6.3 mmol/L 5.5 mmol/L Blood Urea Nitrogen 16 MG/DL Creatinine 1.25 MG/DL Random Glucose 243 MG/DL Total Protein 6.4 GM/DL Albumin 2.9 GM/DL Calcium Level 8.8 MG/DL Alkaline Phosphatase 79 U/L Aspartate Amino Transf (AST/SGOT) 44 U/L Alanine Aminotransferase (ALT/SGPT) 89 U/L Total Bilirubin 0.3 MG/DL Sodium Level 136 MEQ/L Potassium Level 4.1 MEQ/L Chloride Level 103 MEQ/L Carbon Dioxide Level 17.0 MEQ/L Anion Gap 16 MEQ/L Estimat Glomerular Filtration Rate 63 ML/MIN Test 10/01/17 01:52 Lactic Acid Level 3.4 mmol/L Microbiology Date/Time Source Procedure Growth Status 09/30/17 13:45 Blood Other Aerobic Blood Culture Pending Received 09/30/17 13:45 Blood Other Anaerobic Blood Culture Pending Received 09/29/17 17:10 Blood Peripheral Aerobic Blood Culture - Preliminary NO GROWTH IN 1 DAY Resulted 09/29/17 17:10 Blood Peripheral Anaerobic Blood Culture - Preliminary NO GROWTH IN 1 DAY Resulted 09/29/17 17:00 Blood Peripheral Aerobic Blood Culture - Preliminary NO GROWTH IN 1 DAY Resulted 09/29/17 17:00 Blood Peripheral Anaerobic Blood Culture - Preliminary NO GROWTH IN 1 DAY Resulted 09/30/17 18:05 Sputum Expectorated Sputum Gram Stain Pending Received 09/30/17 18:05 Sputum Expectorated Sputum Sputum Culture Pending Received 09/30/17 18:00 Urine Random Urine Legionella Antigen Pending Received Imaging Last Impressions Chest X-Ray 09/30/17 0000 Signed Impressions: Service Date/Time: Saturday, September 30, 2017 18:27 - CONCLUSION: No significant change Bienvenido Bear MD Chest CT 09/29/17 1509 Signed Impressions: Service Date/Time: Friday, September 29, 2017 15:20 - CONCLUSION: Dense consolidation changes right lung lung with mild volume loss. New significant subcutaneous emphysema extending into the mediastinum, right chest wall left neck There is no evidence of superior vena cava occlusion I cannot tell the status of the left subclavian or axillary vein because of the [id number]-[id number] placement. . Román Howard MD FACR Upper Extremity Ultrasound 09/29/17 0000 Signed Impressions: Service Date/Time: Friday, September 29, 2017 17:06 - CONCLUSION: 1. Extensive occlusive thrombus left neck and left arm. Db Alcantara MD Physical Exam GENERAL: This is a well-nourished, well-developed patient, in no apparent distress. SKIN: No rashes, ecchymoses or lesions. Cool and dry. HEAD: Atraumatic. Normocephalic. No temporal or scalp tenderness. EYES: Left eyelid swollen and drooping to cover half way to the pupil. No eye ball tenderness. Pupils equal round and reactive. Extraocular motions intact. No scleral icterus. No injection or drainage. ENT: Nose without bleeding, purulent drainage or septal hematoma. Throat without erythema, tonsillar hypertrophy or exudate. Uvula midline. Airway patent. Face and Neck: Trachea midline. Supple, nontender, no meningeal signs. Face swollen, voice squeaky and nasal twang, left neck and LUE swollen and tense. No tenderness. Unable to bend elbow completely. No erythema or induration. Rt face swollen. No crepitus appreciated. Blisters noted on his left hand. No other blisters any where else. CARDIOVASCULAR: Regular rate and rhythm without murmurs, gallops, or rubs. RESPIRATORY: AE decreased R > L. Creps R>L. Rt chest wall small opening at the site of prior chest tube with significant serous drainage. GASTROINTESTINAL: Abdomen soft, non-tender, nondistended. Obese abdomen. MUSCULOSKELETAL: Extremities without clubbing, cyanosis, or edema. No joint tenderness, effusion, or edema noted. No calf tenderness. Negative Homans sign bilaterally. NEUROLOGICAL: Awake and alert. Cranial nerves II through XII intact. Motor and sensory grossly within normal limits. Five out of 5 muscle strength in all muscle groups. Normal speech. Port site deep non tender no erythema or induration. Psych cooperative, pleasant. Assessment & Plan Remarks Severe Sepsis Recurrent pneumonia Possible Health care associated pneumonia (multiple recent hospitalizations) New left eyelid swelling and drooping of eyelid ? ptosis vs due to eyelid swelling. Blisters on left forearm and arm: unlikely antibiotic related. ? due to extensive LUE swelling. No other rash or oral lesions. 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 Abnormal LFTs: Sepsis, Vfend. Left neck and LUE extensive DVT Subcut emphysema and in mediastinum T cell lymphoma s/p chemo and radiation Immunocompromised Recs STAT MRI brain with and without contrast (r/o cavernous sinus thrombosis) Continue Cefepime IV Continue Vanco IV (target 15-20 for PNA, possible bacteremia) Continue Azithro IV (for atypical PNA) Continue Voriconazole for aspergillosis empiric Blood cultures from port. dw CTS ok to draw from port. Appreciate CTS input. Appreciate Vascular surgery input. Heparin per primary team dagoberto Villa above plan: dagoberto patient and : above plan. Follow sputum for legionella culture Follow cultures Follow clinically Follow LFTs Follow QT interval while on Vfend and Azithro. 12 lead EKG in am and when symptomatic. Time spent in excess of 40 mins dagoberto multiple team members of health care team. Sarah Dwyer MD October 01, 2017 08:30
[2017-10-01] MEDS: RESP: ALBUTEROL 2.5 MG/3 ML NEB (SCH) NEB ×4 (08:40→20:36)
[2017-10-01] MEDS: METHADONE HCL 10 MG TAB PO SCH (09:00)
[2017-10-01] MEDS: VORICONAZOLE 200 MG TAB PO SCH ×2 (09:00→20:19)
[2017-10-01] MEDS: SODIUM CHLORIDE 0.9% FLUSH 10 ML FLUSH IV FLUSH SCH ×2 (09:00→20:18)
[2017-10-01] MEDS: DOCUSATE SODIUM 50 MG/SENNA 8.6 MG TAB PO SCH ×2 (09:00→20:18)
[2017-10-01] MEDS: THIAMINE HCL 100 MG TAB PO SCH (09:00)
[2017-10-01] MEDS ORDERED: GLUCAGON 1 MG/ML VIAL OTHER PRN (10:00)
[2017-10-01] MEDS ORDERED: DEXTROSE 50% IN WATER 50 ML VIAL(D50) IV PUSH PRN (10:00)
[2017-10-01] MEDS: INSULIN NovoLIN REGULAR SUPPLEMENTAL SCALE SQ SCH ×3 (10:00→22:00)
--- NOTE | 2017-10-01 10:06 | HHI.CCPN ---
Subjective Remarks/Hospital Course 42-year-old male with a history of hypertension and T-cell lymphoma status post chemo. He was recently discharged over 10 days ago after being treated for right lung pneumonia presumably fungal etiology on Vfend status post bronchoscopy and VATS. He has been compliant with therapy and has been doing well until this morning when he noticed left face and neck swelling which progressed involving the left chest and left upper extremity with crepitation. CT of the chest does not show evidence of SVC however shows extensive occlusive thrombus left neck and left arm. He was also complaining of productive cough yellow phlegm and shortness of breath with wheezing. Denies fever or chills. In the ED he has tachycardia, tachypnea and leukocytosis with right lung consolidation on chest CT and has been started on IV vancomycin, IV Zithromax and IV cefepime for hospital-acquired pneumonia. Blood cultures were obtained. He was admitted to hospitalist service however his clinical picture deteriorated, including elevated lactic acid and the patient was transferred to ICU for higher level of care. 10/01 Patient is on 4L oxygen Lactic acid is trending down 3.4 from 6.3. Afebrile. Objective Vital Signs Date Time Temp Pulse Resp B/P (MAP) Pulse Ox O2 Delivery O2 Flow Rate FiO2 10/01/17 06:00 99 10/01/17 04:00 98.9 23 147/78 (101) 92 09/30/17 20:19 Nasal Cannula 4.00 Intake and Output 10/01/17 10/01/17 10/02/17 08:00 16:00 00:00 Intake Total 2112 ml Output Total 1150 ml Balance 962 ml Result Diagram: 09/30/17 19009/30/17 190 Other Results Laboratory Tests Test 09/30/17 16:44 09/30/17 18:00 09/30/17 18:05 09/30/17 18:30 Activated Partial Thromboplast Time 59.0 SEC Lactic Acid Level 6.3 mmol/L Urine Color YELLOW Urine Turbidity CLEAR Urine pH 5.0 Urine Specific [place] 1.026 Urine Protein 30 mg/dL Urine Glucose (UA) 300 mg/dL Urine Ketones TRACE mg/dL Urine Occult Blood NEG Urine Nitrite NEG Urine Bilirubin NEG Urine Urobilinogen LESS THAN 2.0 MG/DL Urine Leukocyte Esterase NEG Urine RBC LESS THAN 1 /hpf Urine WBC LESS THAN 1 /hpf Urine Squamous Epithelial Cells <1 /hpf Urine Hyaline Casts 6 /lpf Urine Mucus MOD /lpf Microscopic Urinalysis Comment CULT NOT INDICATED Blood Gas Puncture Site RT RADIAL Blood Gas Patient Temperature 98.6 Blood Gas HCO3 18 mmol/L Blood Gas Base Excess -6.9 mmol/L Blood Gas Oxygen Saturation 89 % Arterial Blood pH 7.35 Arterial Blood Partial Pressure CO2 33 mmHg Arterial Blood Partial Pressure O2 68 mmHg Arterial Blood Oxygen Content 15.3 Vol % Arterial Blood Carboxyhemoglobin 1.4 % Arterial Blood Methemoglobin 1.5 % Blood Gas Hemoglobin 12.1 G/DL Oxygen Delivery Device NASAL CANNULA Blood Gas Liter Flow 2 L/M Test 09/30/17 19:08 09/30/17 22:45 09/30/17 23:30 10/01/17 01:52 White Blood Count 8.5 TH/MM3 Red Blood Count 4.30 MIL/MM3 Hemoglobin 12.0 GM/DL Hematocrit 36.7 % Mean Corpuscular Volume 85.4 FL Mean Corpuscular Hemoglobin 28.0 PG Mean Corpuscular Hemoglobin Concent 32.8 % Red Cell Distribution Width 17.9 % Platelet Count 196 TH/MM3 Mean Platelet Volume 7.5 FL Neutrophils (%) (Auto) 94.4 % Lymphocytes (%) (Auto) 1.6 % Monocytes (%) (Auto) 3.8 % Eosinophils (%) (Auto) 0.0 % Basophils (%) (Auto) 0.2 % Neutrophils # (Auto) 8.0 TH/MM3 Lymphocytes # (Auto) 0.1 TH/MM3 Monocytes # (Auto) 0.3 TH/MM3 Eosinophils # (Auto) 0.0 TH/MM3 Basophils # (Auto) 0.0 TH/MM3 CBC Comment AUTO DIFF Differential Total Cells Counted 100 Neutrophils % (Manual) 82 % Band Neutrophils % 10 % Lymphocytes % 3 % Monocytes % 2 % Neutrophils # (Manual) 8.1 TH/MM3 Metamyelocytes 1 % Myelocytes 2 % Differential Comment FINAL DIFF MANUAL Platelet Estimate NORMAL Platelet Morphology Comment NORMAL Tear Drop Cells 1+ Ovalocytes 1+ Blood Urea Nitrogen 16 MG/DL Creatinine 1.25 MG/DL Random Glucose 243 MG/DL Total Protein 6.4 GM/DL Albumin 2.9 GM/DL Calcium Level 8.8 MG/DL Alkaline Phosphatase 79 U/L Aspartate Amino Transf (AST/SGOT) 44 U/L Alanine Aminotransferase (ALT/SGPT) 89 U/L Total Bilirubin 0.3 MG/DL Sodium Level 136 MEQ/L Potassium Level 4.1 MEQ/L Chloride Level 103 MEQ/L Carbon Dioxide Level 17.0 MEQ/L Anion Gap 16 MEQ/L Estimat Glomerular Filtration Rate 63 ML/MIN Lactic Acid Level 5.5 mmol/L 3.4 mmol/L Nasal Screen MRSA (PCR) MRSA NOT DETECTED Test 10/01/17 03:45 Activated Partial Thromboplast Time 73.4 SEC Random Vancomycin Level 11.5 COMMENT Imaging Last Impressions Chest X-Ray 09/30/17 0000 Signed Impressions: Service Date/Time: Saturday, September 30, 2017 18:27 - CONCLUSION: No significant change Bienvenido Bear MD Chest CT 09/29/17 1509 Signed Impressions: Service Date/Time: Friday, September 29, 2017 15:20 - CONCLUSION: Dense consolidation changes right lung lung with mild volume loss. New significant subcutaneous emphysema extending into the mediastinum, right chest wall left neck There is no evidence of superior vena cava occlusion I cannot tell the status of the left subclavian or axillary vein because of the [id number] placement. . Román Hwoard MD FACR Upper Extremity Ultrasound 09/29/17 0000 Signed Impressions: Service Date/Time: Friday, September 29, 2017 17:06 - CONCLUSION: 1. Extensive occlusive thrombus left neck and left arm. Db Alcantara MD Objective Remarks GENERAL: Well-nourished, well-developed patient. SKIN: Warm and dry. HEAD: Normocephalic. EYES: No scleral icterus. No injection or drainage. NECK: Supple, trachea midline. No JVD or lymphadenopathy. CARDIOVASCULAR: Regular rate and rhythm without murmurs, gallops, or rubs. RESPIRATORY: Breath sounds equal bilaterally. Some accessory muscle use. GASTROINTESTINAL: Abdomen soft, non-tender, nondistended. MUSCULOSKELETAL: No cyanosis, or edema. BACK: Nontender without obvious deformity. NEURO EXAM: GCS: 15 Mental Status: The patient is alert and oriented to person, place, and time with normal speech. A/P Assessment and Plan 1)Resp Insuff 2)Lactic acidemia 3)Extensive DVT LUE, left neck 4)Pneumonia/empyema s/p recent right VTAS 5)T-cell lymphoma s/p XTR and Chemo 6)Hx Bronchial asthma 7) Hypertension 8)Sub Q emphysema 9)Elevated LFT Plan Neuro: Awake and alert For MRI/MRV brain r/o cavernous sinus thrombosis Pulm: Continue with oxygen keep sats >92% Bronchodilators, solumederol 30mg Q12 CT chest: Dense consolidation changes right lung lung with mild volume loss. subcutaneous emphysema extending into the mediastinum, right chest wall left neck There is no evidence of SVC occlusion I cannot tell the status of the left subclavian or axillary vein because of the [id number] placement per radiology. Check CXR , CTS is following- Dr. Frey CV: Monitor HR and BP keep MAP>65mmHg serial lactic acid monitoring (trending down) Decrease NS 75mlhr, patient received 4L crystalloids overnight : Monitor renal function, electrolytes replacement per protocol. Diurese with Lasix 40mg x1 GI: On PO diet ID: Continue with abx per ID (Cefepime, Vanco, Azithromycin, Voriconazole) Follow up on sputum cx and Legionella urinary Ag Heme: Monitor CBC, coags- patient is on Heparin drip Onc is following- Dr. Leigh IR is consulted for local TPA infusion to left arm Endo: Place on SSI for glycemic control DVT GI prophylaxis -Bayron's and SCDs -Heparin drip -Pepcid Follow up on labs today Level 3 Taylor Mead MD October 01, 2017 10:06
[2017-10-01] MEDS ORDERED: FUROSEMIDE 40 MG/4 ML VIAL IV PUSH ONE (10:30)
--- NOTE | 2017-10-01 11:08 | RADRPT ---
EXAM DATE/TIME: 10/01/2017 10:22 [facility] COMPARISON: CHEST SINGLE AP, September 30, 2017, 18:27. INDICATIONS : Evaluate sub Q emphysema. MEDICAL HISTORY : Lymphoma. Hypertension. SURGICAL HISTORY : None. ENCOUNTER: Subsequent ACUITY: 1 week PAIN SCORE: 0/10 LOCATION: Bilateral chest FINDINGS: A single view of the chest demonstrates persistent extensive opacification in the right hemithorax wi th volume loss, unchanged. Left lung is grossly clear. Heart size appears normal but there is dextrop osition of the heart and mediastinum. Subcutaneous and deep tissue emphysematous changes appear stabl e. Osseous structures are grossly intact. CONCLUSION: Stable chest. Alonso Leonardo MD on October 01, 2017 at 11:04 Board Certified Radiologist. This report was verified electronically.
[2017-10-01 11:53] LABS: ALKALINE PHOSPHATASE 62 U/L (45-117); TOTAL PROTEIN 6.1 GM/DL (6.4-8.2)
[2017-10-01 11:58] LABS: BLOOD UREA NITROGEN 13 MG/DL (7-18); CREATININE 0.87 MG/DL (0.60-1.30); GLOMERULAR FILTRATION RATE 96 ML/MIN (>89)
[2017-10-01 11:59] LABS: ALBUMIN 2.6 GM/DL (3.4-5.0); CALCIUM 8.8 MG/DL (8.5-10.1); GLUCOSE,RANDOM 143 MG/DL (74-106); MAGNESIUM 2.1 MG/DL (1.5-2.5); PHOSPHORUS 3.1 MG/DL (2.5-4.9)
[2017-10-01 12:00] LABS: ALT (GPT) 83 U/L (12-78); AST (GOT) 60 U/L (15-37); CHLORIDE 107 MEQ/L (98-107); SODIUM (NA) 138 MEQ/L (136-145); TOTAL BILIRUBIN ADULT 0.4 MG/DL (0.2-1.0)
--- NOTE | 2017-10-01 12:15 | PD.ONC.PN ---
Subjective Subjective Remarks Afebrile overnight. Patient resting in bed. Has worsened swelling in his head and ptosis of his left eye. Patient tired of being in the hospital. Objective Data Date Time Temp Pulse Resp B/P (MAP) Pulse Ox O2 Delivery O2 Flow Rate FiO2 10/01/17 10:00 16 10/01/17 08:45 16 10/01/17 07:00 Nasal Cannula 4.00 10/01/17 06:00 99 10/01/17 04:00 103 10/01/17 04:00 98.9 103 23 147/78 (101) 92 10/01/17 02:00 92 10/01/17 00:00 98.8 101 22 139/86 (103) 98 10/01/17 00:00 101 09/30/17 20:30 98.5 115 18 124/96 (105) 94 09/30/17 20:19 95 Nasal Cannula 4.00 09/30/17 19:32 131/96 (108) 09/30/17 18:30 Nasal Cannula 4.00 09/30/17 18:00 98.3 123 18 159/91 (113) 91 09/30/17 16:00 106 09/30/17 16:00 92 Nasal Cannula 2.00 09/30/17 14:00 98.3 121 20 167/107 (127) 90 10/01/17 10/01/17 10/01/17 07:00 15:00 23:00 Intake Total 3362 ml Output Total 1450 ml Balance 1912 ml Result Diagram: 09/30/17 1908 10/01/17 1100 Laboratory Results Laboratory Tests Test 09/30/17 16:44 09/30/17 18:00 09/30/17 18:05 09/30/17 18:30 Activated Partial Thromboplast Time 59.0 SEC Lactic Acid Level 6.3 mmol/L Urine Color YELLOW Urine Turbidity CLEAR Urine pH 5.0 Urine Specific Ryde 1.026 Urine Protein 30 mg/dL Urine Glucose (UA) 300 mg/dL Urine Ketones TRACE mg/dL Urine Occult Blood NEG Urine Nitrite NEG Urine Bilirubin NEG Urine Urobilinogen LESS THAN 2.0 MG/DL Urine Leukocyte Esterase NEG Urine RBC LESS THAN 1 /hpf Urine WBC LESS THAN 1 /hpf Urine Squamous Epithelial Cells <1 /hpf Urine Hyaline Casts 6 /lpf Urine Mucus MOD /lpf Microscopic Urinalysis Comment CULT NOT INDICATED Blood Gas Puncture Site RT RADIAL Blood Gas Patient Temperature 98.6 Blood Gas HCO3 18 mmol/L Blood Gas Base Excess -6.9 mmol/L Blood Gas Oxygen Saturation 89 % Arterial Blood pH 7.35 Arterial Blood Partial Pressure CO2 33 mmHg Arterial Blood Partial Pressure O2 68 mmHg Arterial Blood Oxygen Content 15.3 Vol % Arterial Blood Carboxyhemoglobin 1.4 % Arterial Blood Methemoglobin 1.5 % Blood Gas Hemoglobin 12.1 G/DL Oxygen Delivery Device NASAL CANNULA Blood Gas Liter Flow 2 L/M Test 09/30/17 19:08 09/30/17 22:45 09/30/17 23:30 10/01/17 01:52 White Blood Count 8.5 TH/MM3 Red Blood Count 4.30 MIL/MM3 Hemoglobin 12.0 GM/DL Hematocrit 36.7 % Mean Corpuscular Volume 85.4 FL Mean Corpuscular Hemoglobin 28.0 PG Mean Corpuscular Hemoglobin Concent 32.8 % Red Cell Distribution Width 17.9 % Platelet Count 196 TH/MM3 Mean Platelet Volume 7.5 FL Neutrophils (%) (Auto) 94.4 % Lymphocytes (%) (Auto) 1.6 % Monocytes (%) (Auto) 3.8 % Eosinophils (%) (Auto) 0.0 % Basophils (%) (Auto) 0.2 % Neutrophils # (Auto) 8.0 TH/MM3 Lymphocytes # (Auto) 0.1 TH/MM3 Monocytes # (Auto) 0.3 TH/MM3 Eosinophils # (Auto) 0.0 TH/MM3 Basophils # (Auto) 0.0 TH/MM3 CBC Comment AUTO DIFF Differential Total Cells Counted 100 Neutrophils % (Manual) 82 % Band Neutrophils % 10 % Lymphocytes % 3 % Monocytes % 2 % Neutrophils # (Manual) 8.1 TH/MM3 Metamyelocytes 1 % Myelocytes 2 % Differential Comment FINAL DIFF MANUAL Platelet Estimate NORMAL Platelet Morphology Comment NORMAL Tear Drop Cells 1+ Ovalocytes 1+ Blood Urea Nitrogen 16 MG/DL Creatinine 1.25 MG/DL Random Glucose 243 MG/DL Total Protein 6.4 GM/DL Albumin 2.9 GM/DL Calcium Level 8.8 MG/DL Alkaline Phosphatase 79 U/L Aspartate Amino Transf (AST/SGOT) 44 U/L Alanine Aminotransferase (ALT/SGPT) 89 U/L Total Bilirubin 0.3 MG/DL Sodium Level 136 MEQ/L Potassium Level 4.1 MEQ/L Chloride Level 103 MEQ/L Carbon Dioxide Level 17.0 MEQ/L Anion Gap 16 MEQ/L Estimat Glomerular Filtration Rate 63 ML/MIN Lactic Acid Level 5.5 mmol/L 3.4 mmol/L Nasal Screen MRSA (PCR) MRSA NOT DETECTED Test 10/01/17 03:45 10/01/17 11:00 Activated Partial Thromboplast Time 73.4 SEC Random Vancomycin Level 11.5 COMMENT Blood Urea Nitrogen 13 MG/DL Creatinine 0.87 MG/DL Random Glucose 143 MG/DL Total Protein 6.1 GM/DL Albumin 2.6 GM/DL Calcium Level 8.8 MG/DL Phosphorus Level 3.1 MG/DL Magnesium Level 2.1 MG/DL Alkaline Phosphatase 62 U/L Aspartate Amino Transf (AST/SGOT) 60 U/L Alanine Aminotransferase (ALT/SGPT) 83 U/L Total Bilirubin 0.4 MG/DL Sodium Level 138 MEQ/L Potassium Level 5.1 MEQ/L Chloride Level 107 MEQ/L Carbon Dioxide Level 22.0 MEQ/L Anion Gap 9 MEQ/L Estimat Glomerular Filtration Rate 96 ML/MIN Lactic Acid Level 3.3 mmol/L Culture Results Microbiology Date/Time Source Procedure Growth Status 09/30/17 13:45 Blood Other Aerobic Blood Culture - Preliminary NO GROWTH IN 1 DAY Resulted 09/30/17 13:45 Blood Other Anaerobic Blood Culture - Preliminary NO GROWTH IN 1 DAY Resulted 09/29/17 17:10 Blood Peripheral Aerobic Blood Culture - Preliminary NO GROWTH IN 2 DAYS Resulted 09/29/17 17:10 Blood Peripheral Anaerobic Blood Culture - Preliminary NO GROWTH IN 2 DAYS Resulted 09/29/17 17:00 Blood Peripheral Aerobic Blood Culture - Preliminary NO GROWTH IN 2 DAYS Resulted 09/29/17 17:00 Blood Peripheral Anaerobic Blood Culture - Preliminary NO GROWTH IN 2 DAYS Resulted 09/30/17 18:05 Sputum Expectorated Sputum Gram Stain - Final Resulted 09/30/17 18:05 Sputum Expectorated Sputum Sputum Culture - Preliminary HEAVY GROWTH NORMAL RESPIRATORY TYRON... Resulted 09/30/17 18:00 Urine Random Urine Legionella Antigen - Final PRESUMPTIVE NEGATIVE FOR LEGIONELLA P... Complete Imaging Studies Last 24 hours Impressions Chest X-Ray 10/01/17 0000 Signed Impressions: Service Date/Time: Sunday, October 01, 2017 10:22 - CONCLUSION: Stable chest. Alonso Leonardo MD Administered Medications Medications (Trade) Dose Ordered Sig/Suzan Route PRN Reason Start Time Stop Time Status Last Admin Dose Admin Sodium Chloride (NS Flush) 2 ml BID IV FLUSH 09/29/17 21:00 10/01/17 09:00 Azithromycin 500 mg/Sodium Chloride 250 ml @ 250 mls/hr Q24H IV 09/30/17 20:00 09/30/17 21:09 Sodium Chloride 1,000 ml @ 75 mls/hr [id number] IV 09/29/17 17:30 10/01/17 02:00 Albuterol Sulfate (Albuterol Neb) 2.5 mg QID NEB NEB 09/29/17 20:00 10/01/17 08:44 Lorazepam (Ativan) 0.5 mg Q6HR PRN PO anxiety 09/29/17 17:30 10/01/17 01:58 Methadone HCl (Dolophine) 2.5 mg DAILY PO 09/30/17 09:00 10/01/17 09:00 Morphine Sulfate (Msir) 30 mg Q6HR PRN PO PAIN1-10 09/29/17 17:30 10/01/17 02:16 Voriconazole (Vfend) 200 mg Q12HR PO 09/29/17 21:00 10/01/17 09:00 Senna/Docusate Sodium (Naa-Colace) 1 tab BID PO 09/29/17 21:00 10/01/17 09:00 Heparin Sodium/ Dextrose 250 ml @ 17 mls/hr TITRATE PRN IV Coagulation Management 09/29/17 20:00 10/01/17 00:00 Thiamine HCl (Vitamin B1) 100 mg DAILY PO 10/01/17 09:00 10/01/17 09:00 Piperacillin Sod/ Tazobactam Sod 100 ml @ 200 mls/hr Q6H IV 09/30/17 20:00 10/01/17 08:00 Methylprednisolone Sodium Succinate (SoluMEDROL INJ) 30 mg Q12H IV PUSH 09/30/17 20:00 10/01/17 08:00 Morphine Sulfate (Morphine Inj) 5 mg Q3HR PRN IV PUSH breakthrough 09/30/17 19:15 10/01/17 08:30 Acetaminophen (Tylenol) 650 mg Q4H PRN PO TEMP > 100.4 / HEADACHE/BONE P 09/30/17 21:15 10/01/17 06:06 Chlorhexidine Gluconate (Chlorhexidine 2% Cloth) 3 pack DAILY@04 TOPICAL 10/01/17 04:00 10/05/17 04:01 10/01/17 04:53 Objective Remarks GENERAL: Pleasant, fatigued young man, sitting up in bed. significant edema around his face, neck and left arm. SKIN: Warm and dry. +crepitus, right chest wall. HEAD: Normocephalic. EYES: No injection or drainage. NECK: Supple. CARDIOVASCULAR: Regular rate and rhythm RESPIRATORY: diminished, left lower lung flores. on 4L O2 via NC GASTROINTESTINAL: Abdomen soft, non-tender, nondistended. EXTREMITIES: No cyanosis. LUE with edema and tenderness. water blisters noted on midarm as well. NEUROLOGICAL: awake and alert. moving extremities. Assessment/Plan Problem List: (1) DVT of upper extremity (deep vein thrombosis) ICD Codes: I82.629 - Acute embolism and thrombosis of deep veins of unspecified upper extremity Status: Acute Plan: 10/01: plan for tpa today after MRI brain, removal of Port tomorrow. -- On heparin gtt -- CT chest shows no SVC syndrome. (2) T-cell lymphoma ICD Codes: C85.90 - Non-Hodgkin lymphoma, unspecified, unspecified site Status: Chronic Plan: -- Status post CHOP chemotherapy in clinic. --In remission --Recent biopsy of lung showed no lymphoma involvement (3) Subcutaneous crepitus ICD Codes: R23.9 - Unspecified skin changes Status: Acute (4) Lung consolidation ICD Codes: J18.1 - Lobar pneumonia, unspecified organism Status: Acute Assessment 42-year-old male with T-cell lymphoma admitted with new left upper extremity extensive DVT Plan 1. Continue heparin 2. tpa in invasive radiology today 3. agree with MRI brain 4. port removal tomorrow. Attending Statement The exam, history, and the medical decision-making described in the above note were completed with the assistance of the mid-level provider. I reviewed and agree with the findings presented. I attest that I had a [id number] encounter with the patient on the same day, and personally performed and documented my assessment and findings in the medical record. Events from today noted. MRI brain negative. Discussed L facial swelling w/ Dr. Dwyer. Suspect clot progression causing swelling in addition to steroid hanley facies, L side > R since port on L side. Discussed w/ Dr. Leonardo, risk/benefit thrombolytic therapy, acutely symptomatic , little response to therapeutic anticoagulation w/ UFH. Seen in ICU, short run of desaturation improved w/ respiratory tx, possible panic attack. L shoulder seem softer/less taut but L arm w/ bulllae. R groin catheter in place. R chest wall site w/o bleeding. Continue current goal of thrombolysis. Port will be removed after. Abx per ID. Supportive tx anxiolytic and morphine for pain. Problem Qualifiers (1) DVT of upper extremity (deep vein thrombosis): Qualified Codes: I82.622 - Acute embolism and thrombosis of deep veins of left upper extremity Doris Liu October 01, 2017 12:15 Aysha Leigh MD October 01, 2017 20:38
[2017-10-01] MEDS ORDERED: GADODIAMIDE PF 287 MG/ML 20 ML VIAL (for RAD MRI) IVCONTRAST ONE (12:18)
[2017-10-01] MEDS ORDERED: fentaNYL CITRATE 250 MCG/5 ML AMP ONE (12:29)
[2017-10-01] MEDS ORDERED: MIDAZOLAM HCL 5 MG/5 ML VIAL ONE (12:29)
--- NOTE | 2017-10-01 12:29 | RADRPT ---
EXAM DATE/TIME: 10/01/2017 11:30 [facility] COMPARISON: No previous studies available for comparison. INDICATIONS : Cavernous sinus and dural sinus thrombosis in a lymphoma patient. CONTRAST: 20 cc Omniscan (gadodiamide) IV MEDICAL HISTORY : Lymphoma. SURGICAL HISTORY : Port placement. Shoulder surgery. ENCOUNTER: Subsequent ACUITY: 2 day PAIN SCORE: 0/10 LOCATION: head. TECHNIQUE: Multiplanar, multisequence MRI of the brain was performed both prior to and following the administrat ion of paramagnetic contrast. FINDINGS: CEREBRUM: The ventricles are normal for age. No evidence of midline shift, mass lesion, hemorrhage or acute in farction. No extraaxial fluid collections are seen. The pituitary gland and suprasellar cistern are normal in configuration. WHITE MATTER: No significant signal abnormalities are seen in the white matter. POSTERIOR FOSSA: The cerebellum and brainstem are intact. The 4th ventricle is midline. The cerebellopontine angle is unremarkable. The cerebellar tonsils are normal in position. DIFFUSION IMAGING: No focal areas of restricted diffusion are seen. No evidence of acute infarction. EXTRACRANIAL: The visualized portions of the orbits and paranasal sinuses are unremarkable. POST-CONTRAST: No abnormal areas of parenchymal or dural enhancement. No evidence of blood-brain barrier breakdown. CONCLUSION: No acute disease. Sam Horton MD on October 01, 2017 at 12:26 Board Certified Radiologist. This report was verified electronically.
--- NOTE | 2017-10-01 12:34 | RADRPT ---
EXAM DATE/TIME: 10/01/2017 11:30 COMPARISON: MRI BRAIN W & W/O CONTRAST, October 01, 2017, 11:30. INDICATIONS : Cavernous sinus and dural sinus thrombosis in a lymphoma patient. CONTRAST: 20 cc Omniscan (gadodiamide) IV MEDICAL HISTORY : Lymphoma. SURGICAL HISTORY : Port placemant. Shoulder surgery. ENCOUNTER: Subsequent ACUITY: 2 day PAIN SCORE: 0/10 LOCATION: head. FINDINGS: Date cortical veins, superior sagittal sinus, right transverse sinus, right sigmoid sinus and right j ugular vein are widely patent. There is no evidence of obstruction or filling defects. The left transverse and sigmoid sinuses are hypoplastic. A small left jugular vein is noted. The deep venous structures including the internal cerebral veins, vein of [place] and straight sinus ar e patent without evidence of obstruction. CONCLUSION: 1. No evidence of cortical venous or dural sinus venous thrombosis. 2. Hypoplastic left transverse and sigmoid sinuses. Sam Horton MD on October 01, 2017 at 12:28 Board Certified Radiologist. This report was verified electronically.
[2017-10-01] MEDS ORDERED: VANCOMYCIN INJ 2,000 MG in SODIUM CHLORID 0.9% 500 ML INJ 500 ML IV ONE (13:00)
[2017-10-01] MEDS: HEPARIN-D5W 25,000 U/250 ML 250 ML IV PRN ×2 (14:30)
[2017-10-01] MEDS ORDERED: CATHFLO ACTIVASE INJ 10 MG in SODIUM CHLORID 0.9% 500 ML INJ 500 ML IV PRN (14:30)
[2017-10-01] MEDS ORDERED: HEPARIN-D5W 25,000 U/250 ML 250 ML IV SCH (14:30)
[2017-10-01] MEDS ORDERED: HEPARIN INJ 1,000 UNITS in SODIUM CHLORID 0.9% 500 ML INJ 500 ML IV PRN (14:30)
--- NOTE | 2017-10-01 14:47 | PD.RAD ---
Post Procedure Progress Note Pre Procedure Diagnosis: (1) SVC syndrome (2) DVT of upper extremity (deep vein thrombosis) Post Procedure Diagnosis: (1) DVT of upper extremity (deep vein thrombosis) (2) SVC syndrome Procedure Date: October 01, 2017 Supervising Radiologist: Alonso Leonardo Proceduralist/Assist: Rajni Bell, RT(R)(), Anusha Carney RT(R) Anesthesia: Local, Analgesia, Conscious Sedation Plan of Activity Patient to Unit: Critical Care Patient Condition: Good See PACS Report for procedural detail/treatment Vascular-Venous Procedure Procedure 1 Procedure Site: Left Arm, Cervical (Left IJ, brachiocephalic and SVC) Procedure(s): Thrombolysis, Venogram Access Access Site(s): Right Femoral Vein, Left Basilic Vein Sheath(s) Remaining: Right Femoral Vein, Left Basilic Vein Findings: Extensive thrombus. Suspect stenosis at central left brachiocephalic vein. 2 catheters traversing Left upper extremity central venous system and left IJ Alonso Leonardo MD October 01, 2017 14:47
[2017-10-01] MEDS ORDERED: ALTEPLASE RECOMBINANT 2 MG VIAL IV ONE ×2 (15:00)
[2017-10-01] MEDS ORDERED: IOHEXOL 350 MG/ML 100 ML BTL (for RAD DIAG) IVCONTRAST ONE (15:05)
[2017-10-01 18:46] LABS: AUTOMATED NEUTROPHIL # 7.2 TH/MM3 (1.8-7.7); BASOPHIL % 0.1 % (0.0-2.0); HEMOGLOBIN 10.8 GM/DL (13.0-17.0); LYMPH % 2.1 % (9.0-44.0); LYMPHOCYTE # 0.2 TH/MM3 (1.0-4.8); MEAN CELL VOLUME 85.7 FL (80.0-100.0); MEAN CORPUSCULAR HGB CONC 32.6 % (32.0-36.0); MEAN PLATELET VOLUME 7.5 FL (7.0-11.0); MONO % 5.1 % (0.0-8.0); MONOCYTE # 0.4 TH/MM3 (0-0.9); NEUT % 92.7 % (16.0-70.0); PLATELET COUNT 173 TH/MM3 (150-450); RED BLOOD COUNT 3.85 MIL/MM3 (4.50-5.90); WHITE BLOOD COUNT 7.8 TH/MM3 (4.0-11.0)
[2017-10-01 20:05] LABS: LYMPHOCYTES 4 % (9-44); MONOCYTES 4 % (0-8); NEUTROPHIL # MANUAL DIFF 7.2 TH/MM3 (1.8-7.7); POLYS (SEG NEUTROPHILS) 89 % (16-70); PROMYELOCYTES 3 % (0-0); TEARDROP RBCS 1+ (NORMAL)
[2017-10-01 20:06] LABS: OVALOCYTES 1+ (NORMAL)
[2017-10-01] MEDS: AZITHROMYCIN INJ 500 MG in SODIUM CHLOR 0.9% 250 ML INJ 250 ML IV SCH (20:16)
[2017-10-02] VITALS (13 sets, daily range): BP systolic 138–143; BP diastolic 56–87; PULSE 78–118; RESP 16–20; TEMP 98.2–99; O2SAT 90–98
[2017-10-02 00:41] LABS: AUTOMATED NEUTROPHIL # 6.7 TH/MM3 (1.8-7.7); HEMATOCRIT 31.3 % (39.0-51.0); HEMOGLOBIN 10.2 GM/DL (13.0-17.0); LYMPH % 1.3 % (9.0-44.0); LYMPHOCYTE # 0.1 TH/MM3 (1.0-4.8); MEAN CELL VOLUME 85.1 FL (80.0-100.0); MEAN CORPUSCULAR HEMOGLOBIN 27.8 PG (27.0-34.0); MEAN CORPUSCULAR HGB CONC 32.7 % (32.0-36.0); MEAN PLATELET VOLUME 7.2 FL (7.0-11.0); MONO % 5.7 % (0.0-8.0); MONOCYTE # 0.4 TH/MM3 (0-0.9); PLATELET COUNT 158 TH/MM3 (150-450); RED BLOOD COUNT 3.68 MIL/MM3 (4.50-5.90); RED CELL DISTRIBUTION WIDTH 17.6 % (11.6-17.2); WHITE BLOOD COUNT 7.2 TH/MM3 (4.0-11.0)
[2017-10-02 02:32] LABS: BANDS 2 % (0-6); CORRECTED NUCLEATED RBC 1 /100 WBC (0-0); METAMYELOCYTES 3 % (0-1); MYELOCYTES 1 % (0-0); NEUTROPHIL # MANUAL DIFF 7.2 TH/MM3 (1.8-7.7); NUCLEATED RED BLOOD CELL 1 (0-0); POLYS (SEG NEUTROPHILS) 94 % (16-70)
[2017-10-02 02:35] LABS: POLYCHROMASIA 2.2 % (0.0-1.9)
[2017-10-02 02:36] LABS: OVALOCYTES 1+ (NORMAL)
[2017-10-02] MEDS: MORPHINE SULFATE 8 MG/ML INJ IV PUSH PRN ×2 (02:39→11:50)
[2017-10-02] MEDS: PIPERACIL-TAZO 4.5 GM PREMIX 100 ML IV SCH (03:02)
[2017-10-02] MEDS: CHLORHEXIDINE GLUCONATE 2 % 1 PACK (2 CLOTHS)(taper/protocol) TOPICAL SCH (03:03)
[2017-10-02] MEDS: INSULIN NovoLIN REGULAR SUPPLEMENTAL SCALE SQ SCH ×4 (03:18→21:29)
[2017-10-02 04:22] LABS: AUTOMATED NEUTROPHIL # 5.9 TH/MM3 (1.8-7.7); BASOPHIL % 0.1 % (0.0-2.0); HEMATOCRIT 30.1 % (39.0-51.0); HEMOGLOBIN 9.8 GM/DL (13.0-17.0); LYMPH % 1.5 % (9.0-44.0); LYMPHOCYTE # 0.1 TH/MM3 (1.0-4.8); MEAN CORPUSCULAR HEMOGLOBIN 27.8 PG (27.0-34.0); MEAN CORPUSCULAR HGB CONC 32.7 % (32.0-36.0); MONOCYTE # 0.4 TH/MM3 (0-0.9); NEUT % 92.4 % (16.0-70.0); PLATELET COUNT 141 TH/MM3 (150-450); RED BLOOD COUNT 3.54 MIL/MM3 (4.50-5.90); RED CELL DISTRIBUTION WIDTH 17.6 % (11.6-17.2); WHITE BLOOD COUNT 6.4 TH/MM3 (4.0-11.0)
[2017-10-02 04:56] LABS: ALBUMIN 2.5 GM/DL (3.4-5.0); ALT (GPT) 97 U/L (12-78); AST (GOT) 57 U/L (15-37); BICARBONATE 26.7 MEQ/L (21.0-32.0); BLOOD UREA NITROGEN 13 MG/DL (7-18); CALCIUM 8.9 MG/DL (8.5-10.1); CHLORIDE 105 MEQ/L (98-107); CREATININE 0.86 MG/DL (0.60-1.30); GLOMERULAR FILTRATION RATE 98 ML/MIN (>89); GLUCOSE,RANDOM 142 MG/DL (74-106); SODIUM (NA) 141 MEQ/L (136-145)
[2017-10-02 04:59] LABS: ALKALINE PHOSPHATASE 57 U/L (45-117); RANDOM VANCOMYCIN 11.9 COMMENT; TOTAL BILIRUBIN ADULT 0.5 MG/DL (0.2-1.0); TOTAL PROTEIN 5.5 GM/DL (6.4-8.2)
[2017-10-02] MEDS: LORazepam 0.5 MG TAB PO PRN ×3 (06:45→23:22)
[2017-10-02] MEDS: SODIUM CHLOR 0.9% 1000 ML INJ 1,000 ML IV SCH (06:46)
[2017-10-02 06:48] LABS: BANDS 3 % (0-6); METAMYELOCYTES 4 % (0-1); MONOCYTES 4 % (0-8); NEUTROPHIL # MANUAL DIFF 6.1 TH/MM3 (1.8-7.7); POLYS (SEG NEUTROPHILS) 89 % (16-70)
[2017-10-02] MEDS ORDERED: FUROSEMIDE 40 MG/4 ML VIAL IV PUSH ONE (07:30)
--- NOTE | 2017-10-02 07:44 | HHI.CCPN ---
Subjective Remarks/Hospital Course 42-year-old male with a history of hypertension and T-cell lymphoma status post chemo. He was recently discharged over 10 days ago after being treated for right lung pneumonia presumably fungal etiology on Vfend status post bronchoscopy and VATS. He has been compliant with therapy and has been doing well until this morning when he noticed left face and neck swelling which progressed involving the left chest and left upper extremity with crepitation. CT of the chest does not show evidence of SVC however shows extensive occlusive thrombus left neck and left arm. He was also complaining of productive cough yellow phlegm and shortness of breath with wheezing. Denies fever or chills. In the ED he has tachycardia, tachypnea and leukocytosis with right lung consolidation on chest CT and has been started on IV vancomycin, IV Zithromax and IV cefepime for hospital-acquired pneumonia. Blood cultures were obtained. He was admitted to hospitalist service however his clinical picture deteriorated, including elevated lactic acid and the patient was transferred to ICU for higher level of care. 10/01 Patient is on 4L oxygen Lactic acid is trending down 3.4 from 6.3. Afebrile. 10/02 Patient s/p venogram with thrombolysis yesterday showed extensive thrombus. Patient was off TPA at 1:30 this morning for low fibrinogen (66-67). Remains on Heparin drip. Awake and alert. Objective Vital Signs Date Time Temp Pulse Resp B/P (MAP) Pulse Ox O2 Delivery O2 Flow Rate FiO2 10/02/17 06:00 80 10/02/17 04:00 98.3 16 143/87 (105) 98 10/02/17 00:38 Nasal Cannula 4.00 Intake and Output 10/02/17 10/02/17 10/03/17 08:00 16:00 00:00 Intake Total 100 ml Output Total 900 ml Balance -800 ml Result Diagram: 10/02/17 0330 10/02/17 0330 Other Results Laboratory Tests Test 10/01/17 11:00 10/01/17 17:30 10/02/17 00:15 10/02/17 03:30 Blood Urea Nitrogen 13 MG/DL 13 MG/DL Creatinine 0.87 MG/DL 0.86 MG/DL Random Glucose 143 MG/DL 142 MG/DL Total Protein 6.1 GM/DL 5.5 GM/DL Albumin 2.6 GM/DL 2.5 GM/DL Calcium Level 8.8 MG/DL 8.9 MG/DL Phosphorus Level 3.1 MG/DL Magnesium Level 2.1 MG/DL Alkaline Phosphatase 62 U/L 57 U/L Aspartate Amino Transf (AST/SGOT) 60 U/L 57 U/L Alanine Aminotransferase (ALT/SGPT) 83 U/L 97 U/L Total Bilirubin 0.4 MG/DL 0.5 MG/DL Sodium Level 138 MEQ/L 141 MEQ/L Potassium Level 5.1 MEQ/L 4.1 MEQ/L Chloride Level 107 MEQ/L 105 MEQ/L Carbon Dioxide Level 22.0 MEQ/L 26.7 MEQ/L Anion Gap 9 MEQ/L 9 MEQ/L Estimat Glomerular Filtration Rate 96 ML/MIN 98 ML/MIN Lactic Acid Level 3.3 mmol/L White Blood Count 7.8 TH/MM3 7.2 TH/MM3 6.4 TH/MM3 Red Blood Count 3.85 MIL/MM3 3.68 MIL/MM3 3.54 MIL/MM3 Hemoglobin 10.8 GM/DL 10.2 GM/DL 9.8 GM/DL Hematocrit 33.0 % 31.3 % 30.1 % Mean Corpuscular Volume 85.7 FL 85.1 FL 85.0 FL Mean Corpuscular Hemoglobin 28.0 PG 27.8 PG 27.8 PG Mean Corpuscular Hemoglobin Concent 32.6 % 32.7 % 32.7 % Red Cell Distribution Width 18.0 % 17.6 % 17.6 % Platelet Count 173 TH/MM3 158 TH/MM3 141 TH/MM3 Mean Platelet Volume 7.5 FL 7.2 FL 7.0 FL Neutrophils (%) (Auto) 92.7 % 93.0 % 92.4 % Lymphocytes (%) (Auto) 2.1 % 1.3 % 1.5 % Monocytes (%) (Auto) 5.1 % 5.7 % 6.0 % Eosinophils (%) (Auto) 0.0 % 0.0 % 0.0 % Basophils (%) (Auto) 0.1 % 0.0 % 0.1 % Neutrophils # (Auto) 7.2 TH/MM3 6.7 TH/MM3 5.9 TH/MM3 Lymphocytes # (Auto) 0.2 TH/MM3 0.1 TH/MM3 0.1 TH/MM3 Monocytes # (Auto) 0.4 TH/MM3 0.4 TH/MM3 0.4 TH/MM3 Eosinophils # (Auto) 0.0 TH/MM3 0.0 TH/MM3 0.0 TH/MM3 Basophils # (Auto) 0.0 TH/MM3 0.0 TH/MM3 0.0 TH/MM3 CBC Comment AUTO DIFF AUTO DIFF AUTO DIFF Differential Total Cells Counted 100 100 100 Neutrophils % (Manual) 89 % 94 % 89 % Lymphocytes % 4 % Monocytes % 4 % 4 % Neutrophils # (Manual) 7.2 TH/MM3 7.2 TH/MM3 6.1 TH/MM3 Promyelocytes 3 % Differential Comment FINAL DIFF MANUAL FINAL DIFF MANUAL FINAL DIFF MANUAL Platelet Estimate NORMAL NORMAL LOW Platelet Morphology Comment NORMAL NORMAL NORMAL Tear Drop Cells 1+ Ovalocytes 1+ 1+ Activated Partial Thromboplast Time 32.4 SEC 28.9 SEC 28.0 SEC Fibrinogen 123 mg/dL 66 mg/dL 67 mg/dL Band Neutrophils % 2 % 3 % Metamyelocytes 3 % 4 % Myelocytes 1 % Nucleated Red Blood Cells 1 /100 WBC Polychromasia 2.2 % Basophilic Stippling FAINT Random Vancomycin Level 11.9 COMMENT Imaging Last Impressions Head/Brain Mag Res Venography 10/01/17 0925 Signed Impressions: Service Date/Time: Sunday, October 01, 2017 11:30 - CONCLUSION: 1. No evidence of cortical venous or dural sinus venous thrombosis. 2. Hypoplastic left transverse and sigmoid sinuses. Sam Horton MD Chest X-Ray 10/01/17 0000 Signed Impressions: Service Date/Time: Sunday, October 01, 2017 10:22 - CONCLUSION: Stable chest. Alonso Leonardo MD Brain MRI 10/01/17 0000 Signed Impressions: Service Date/Time: Sunday, October 01, 2017 11:30 - CONCLUSION: No acute disease. Sam Horton MD Chest CT 09/29/17 1509 Signed Impressions: Service Date/Time: Friday, September 29, 2017 15:20 - CONCLUSION: Dense consolidation changes right lung lung with mild volume loss. New significant subcutaneous emphysema extending into the mediastinum, right chest wall left neck There is no evidence of superior vena cava occlusion I cannot tell the status of the left subclavian or axillary vein because of the [id number] placement. . Román Howard MD FACR Upper Extremity Ultrasound 09/29/17 0000 Signed Impressions: Service Date/Time: Friday, September 29, 2017 17:06 - CONCLUSION: 1. Extensive occlusive thrombus left neck and left arm. Db Alcantara MD Objective Remarks GENERAL: Well-nourished, well-developed patient. SKIN: Warm and dry. HEAD: Normocephalic. EYES: No scleral icterus. No injection or drainage. NECK: Supple, trachea midline. No JVD or lymphadenopathy. CARDIOVASCULAR: Regular rate and rhythm without murmurs, gallops, or rubs. RESPIRATORY: Breath sounds equal bilaterally. Some accessory muscle use. GASTROINTESTINAL: Abdomen soft, non-tender, nondistended. MUSCULOSKELETAL: No cyanosis, or edema. BACK: Nontender without obvious deformity. NEURO EXAM: GCS: 15 Mental Status: The patient is alert and oriented to person, place, and time with normal speech. A/P Assessment and Plan 1)Resp Insuff 2)Lactic acidemia- resolving 3)Extensive DVT LUE, left neck 4)Pneumonia/empyema s/p recent right VTAS 5)T-cell lymphoma s/p XTR and Chemo 6)Hx Bronchial asthma 7) Hypertension 8)Sub Q emphysema 9)Elevated LFT Plan Neuro: Awake and alert MRV brain negative for cavernous sinus thrombosis MRI brain unremarkable Pulm: Continue with oxygen keep sats >92% Bronchodilators, solumederol 30mg Q12 CT chest: Dense consolidation changes right lung lung with mild volume loss. subcutaneous emphysema extending into the mediastinum, right chest wall left neck There is no evidence of SVC occlusion I cannot tell the status of the left subclavian or axillary vein because of the [id number]-[id number] placement per radiology. CXR yesterday showed clear left lung, opacification right hemithorax ( unchanged) CTS is following- Dr. Frey CV: Monitor HR and BP keep MAP>65mmHg serial lactic acid monitoring (trending down) : Monitor renal function, electrolytes replacement per protocol. Diurese with Lasix 40mg x1 GI: On PO diet Monitor LFT's, check US liver ID: Continue with abx per ID (Cefepime, Vanco, Azithromycin, Voriconazole) sputum cx-normal resp edgard, Legionella urinary Ag negative Heme: Monitor CBC, coags- patient is on Heparin drip, Off TPA Onc is following- Dr. Leigh s/p venogram with thrombolysis 10/01 showed extensive thrombus. Off TPA since 1:30 during night for low fibrinogen ( 66-67) Check Fibrinogen level On Heparin drip- monitor PTT Endo: SSI for glycemic control DVT GI prophylaxis -Bayron's and SCDs -Heparin drip -Pepcid Level 3 Taylor Mead MD October 02, 2017 07:44
[2017-10-02] MEDS: RESP: ALBUTEROL 2.5 MG/3 ML NEB (SCH) NEB ×4 (08:00→19:48)
[2017-10-02] MEDS ORDERED: MIDAZOLAM HCL 2 MG/2 ML VIAL ONE ×2 (08:37→09:08)
[2017-10-02] MEDS: SODIUM CHLORIDE 0.9% FLUSH 10 ML FLUSH IV FLUSH SCH ×2 (09:00→19:59)
--- NOTE | 2017-10-02 10:07 | PD.RAD ---
Post Procedure Progress Note Pre Procedure Diagnosis: (1) DVT of upper extremity (deep vein thrombosis) (2) SVC syndrome Post Procedure Diagnosis: (1) DVT of upper extremity (deep vein thrombosis) (2) SVC syndrome Procedure Date: October 02, 2017 Supervising Radiologist: Alonso Leonardo Proceduralist/Assist: Rajni Bell, RT(R)(), Anusha Carney RT(R) Anesthesia: Local, Analgesia, Conscious Sedation Plan of Activity Patient to Unit: Critical Care Patient Condition: Good See PACS Report for procedural detail/treatment Vascular-Venous Procedure Procedure 1 Procedure Site: Cervical (Left IJ), Thoracic (Left brachiocephalic) Procedure(s): Angioplasty (left brachiocephalic and left IJ), Venogram Access Access Site(s): Right Femoral Vein, Left Basilic Vein Closure Site(s): Right manual pressure, Left manual pressure Findings: Stenosis in central left brachiocephalic PAPER WINDER to 10 mm. Mild stenosis central left IJ PAPER WINDER to 7mm. Minimal residual thrombus in left IJ. O/W deep venous system patent Alonso Leonardo MD October 02, 2017 10:07
[2017-10-02] MEDS ORDERED: IOHEXOL 350 MG/ML 100 ML BTL (for RAD DIAG) IVCONTRAST ONE (10:12)
--- NOTE | 2017-10-02 10:36 | RADRPT ---
EXAM DATE/TIME: 10/01/2017 12:29 [facility] COMPARISON: No previous studies available for comparison. INDICATIONS : Patient with a history of left upper extremity pain and swelling. MEDICAL HISTORY : Asthma T-cell lymphoma SURGICAL HISTORY : Shoulder surgery Left infusaport placement VATS ENCOUNTER: Initial ACUITY: 2 days PAIN SCORE: 10/10 LOCATION: Left upper quadrant and neck FLUORO TIME: 23.2 minutes IMAGE SERIES: 10 ACCESS SITE: Left Brachial vein & right femoral vein SEDATION TIME: 120 minutes CONTRAST: 1.) 100 cc Omnipaque (iohexol) 350 MEDICATION(S): 1.) 3 mg midazolam (Versed) IV 2.) 150 mcg fentanyl (Sublimaze) IV DEVICE(S): 1.) Left brachiocephalic vein &SVC 5FR x 30CM Infusion cath 2.) Left internal jugular vein 4FR x 20CM Infusion cath PROCEDURE : 1. Ultrasound-guided puncture of the left femoral vein. 2. Conscious sedation with continuous EKG and Oximetry monitoring. 3. Angiography of the left internal jugular vein. 4. Angiography of the right internal jugular vein 5. Angiography of the left brachial, axillary and brachiocephalic veins as well as the SVC. The risks, benefits and alternatives to the procedure were explained and verbal and written consent w as obtained. The site was prepped in sterile fashion. Full sterile technique was used, including ca p, mask, sterile gloves and gown and a large sterile sheet. Hand hygiene and 2% chlorhexidine and/or betadine/alcohol prep was utilized per protocol for cutaneous antisepsis. Sterile gel and sterile p robe cover were utilized for ultrasound guidance. The skin and subcutaneous tissues were infiltrated with local anesthetic solution. With ultrasound and fluoroscopic guidance the right femoral vein and left brachial veins were punctur ed and vascular sheaths placed (6 [place] short side-port sheath in the left arm, 5 [place]an, 55 cm Belinda e in the right common femoral). Initially, contrast was injected through the arm she demonstrating extensive thrombosis in the brachi al, axillary and subclavian veins. Catheter and wire were manipulated through the thrombus and into t he brachiocephalic where there appear to be any significant stenosis centrally. Catheter and wire wer e advanced past the stenosis into the SVC. Contrast injection confirmed patency of the SVC itself. A 30 cm infusion catheter was then placed across the area of thrombosis. Attention was then turned to the femoral sheath. Initially, a hockey-stick catheter was advanced up i nto the ipsilateral, right-sided internal jugular. Contrast injection showed the right IJ to be paten t and contiguous with the patent SVC. A toe laster catheter was used to engage the left brachiocephalic vein. However, the severe stenosis in the central portion of the left brachiocephalic vein it very difficult to advance past this point. I was able to gradually worked a road runner wire past the stenosis and subsequently advanced the he [employer] catheter up into the brachiocephalic. Additional area of stenosis was encountered at the garima ction of the left IJ and ipsilateral subclavian vein. Catheter and wire were manipulated past this po int as well. Contrast injection demonstrated extensive thrombosis within the left IJ. Therefore, a 20 cm infusion catheter was placed across the occluded IJ and into the subclavian vein. TPA was then in fused into each of the infusion catheters at 1 mg per hour (total of 2 mg per hour). The patient will be transferred to the medical ICU for overnight observation. Conscious sedation was performed with the prescribed dosages and duration as above in the presence of an independent trained radiology nurse to assist in the monitoring of the patient. EKG and oximetry remained stable throughout the procedure. CONCLUSION: 1. Extensive thrombosis involving the left brachiocephalic, subclavian, axillary and central brachial veins as well as the left internal jugular. 2. Suspect high grade stenosis in the central portion of the left brachiocephalic vein. Patient has a left subclavian port. 3. TPA infusion was initiated utilizing 2 catheters approaching from the left brachial vein and right common femoral vein as detailed above. Alonso Leonardo MD on October 02, 2017 at 10:23 Board Certified Radiologist. This report was verified electronically.
[2017-10-02] MEDS ORDERED: fentaNYL CITRATE 250 MCG/5 ML AMP IV ONE (10:37)
[2017-10-02] MEDS ORDERED: VANCOMYCIN INJ 1,750 MG in SODIUM CHLORID 0.9% 500 ML INJ 500 ML IV SCH (11:00)
[2017-10-02 11:18] LABS: BASOPHIL % 0.1 % (0.0-2.0); HEMATOCRIT 29.8 % (39.0-51.0); HEMOGLOBIN 9.9 GM/DL (13.0-17.0); LYMPH % 1.7 % (9.0-44.0); LYMPHOCYTE # 0.1 TH/MM3 (1.0-4.8); MEAN CELL VOLUME 84.4 FL (80.0-100.0); MEAN CORPUSCULAR HEMOGLOBIN 28.1 PG (27.0-34.0); MEAN CORPUSCULAR HGB CONC 33.2 % (32.0-36.0); MEAN PLATELET VOLUME 6.8 FL (7.0-11.0); MONO % 7.3 % (0.0-8.0); MONOCYTE # 0.4 TH/MM3 (0-0.9); NEUT % 90.9 % (16.0-70.0); PLATELET COUNT 133 TH/MM3 (150-450); RED BLOOD COUNT 3.53 MIL/MM3 (4.50-5.90); RED CELL DISTRIBUTION WIDTH 17.7 % (11.6-17.2); WHITE BLOOD COUNT 5.5 TH/MM3 (4.0-11.0)
[2017-10-02] MEDS: THIAMINE HCL 100 MG TAB PO SCH (11:48)
[2017-10-02] MEDS: DOCUSATE SODIUM 50 MG/SENNA 8.6 MG TAB PO SCH ×2 (11:48→20:00)
[2017-10-02] MEDS: methylPREDNISolone SOD SUCC 40 MG/1 ML VIAL IV PUSH SCH ×2 (11:48→19:59)
[2017-10-02] MEDS: cefTRIAXone INJ 2,000 MG in SODIUM CHLORIDE 0.9% INJ 100 ML IV SCH (11:49)
--- NOTE | 2017-10-02 11:52 | RADRPT ---
EXAM DATE/TIME: 10/02/2017 10:24 [facility] COMPARISON: No previous studies available for comparison. INDICATIONS : Increased lab values. MEDICAL HISTORY : Hypercholesterolemia. Hypertension. T-cell lymphoma. Asthma. Pneumonia. Coronary artery disease. SURGICAL HISTORY : Right shoulder surgery. Chemotherapy. Radiation therapy. Left upper chest port placement. Bone marrow biopsy. Bronchoscopy. ENCOUNTER: Initial ACUITY: 1 day PAIN SCORE: 0/10 LOCATION: Right upper quadrant MEASUREMENTS: LIVER: 17.5 cm length COMMON DUCT: 5 mm RIGHT KIDNEY: 11.7 x 4.5 x 4.6 cm SPLEEN: 12.7 cm length FINDINGS: LIVER: Mildly enlarged with increased echogenicity. COMMON DUCT: No intraluminal mass or stone visualized. GALLBLADDER: Contains no stones, demonstrates no wall thickening or pericholecystic fluid. PANCREAS: Limited by bowel gas RIGHT KIDNEY: No hydronephrosis, stone or mass. SPLEEN: Mildly prominent CONCLUSION: Echogenic liver with mildly prominent spleen. Trace left pleural effusion. Román Howard MD FACR on October 02, 2017 at 11:49 Board Certified Radiologist. This report was verified electronically.
[2017-10-02 11:53] LABS: BANDS 6 % (0-6); CORRECTED NUCLEATED RBC 1 /100 WBC (0-0); LYMPHOCYTES 3 % (9-44); MONOCYTES 7 % (0-8); MYELOCYTES 2 % (0-0); NUCLEATED RED BLOOD CELL 1 (0-0); POLYS (SEG NEUTROPHILS) 82 % (16-70)
[2017-10-02 11:54] LABS: TEARDROP RBCS 1+ (NORMAL)
--- NOTE | 2017-10-02 13:10 | RADRPT ---
EXAM DATE/TIME: 10/02/2017 08:14 [facility] COMPARISON: F/U THRU EXISTING CATHETER, October 02, 2017, 0:00. INDICATIONS : Patient with a history of thrombus in left upper extremity and neck, here for follow-up TPA. 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 Followup thrombolysis 2. angiogram, left internal jugular vein. 3. angiogram, left axillary/subclavian vein. 4. balloon angioplasty, central left brachiocephalic vein. 5. balloon angioplasty, central left internal jugular vein. 6. Conscious sedation with continuous EKG and oximetry monitoring. Following TPA infusion the patient returned to the angiography suite for evaluation. The left arm infusion catheter was injected first demonstrating essentially complete resolution of th e previously seen extensive thrombosis in the central brachial, axillary, subclavian and brachiocepha lic veins. However, there did appear to be a significant stenosis in the central portion of the brach iocephalic. This was successfully balloon angioplastied to 10 mm with mandaen of brisk flow throu gh the central venous system. The infusion catheter in the left neck was then injected. There is opacification of the brachiocephal ic I did not see any contrast within the jugular itself. Therefore, catheter was removed over a wire and replaced with a glide hockey-stick. Contrast injection showed marked improvement in the internal jugular with only a small residual construct in mural thrombus. The central portion of the internal j ugular was balloon angioplastied to 7 mm as there was a suspected stenosis in this location. Post bal loon angioplasty showed a widely patent vessel with brisk flow through the central venous system Conscious sedation was performed with the prescribed dosages and duration as above in the presence of an independent trained radiology nurse to assist in the monitoring of the patient. EKG and oximetry remained stable throughout the procedure. CONCLUSION: 1. Almost complete resolution of the previously seen extensive central venous thrombosis. Only small amount of mural thrombus remains in the left internal jugular. This is not flow limiting. 2. Stenosis of the central portions of the left brachiocephalic vein and left internal jugular. These were balloon dilated to 10 and 7 mm, respectively with an excellent angiographic result. Alonso Leonardo MD on October 02, 2017 at 13:03 Board Certified Radiologist. This report was verified electronically.
--- NOTE | 2017-10-02 13:19 | PD.ONC.PN ---
Subjective Subjective Remarks Afebrile overnight. Patient has noticed improvement in left arm swelling and facial swelling since undergoing tpa yesterday. tpa was stopped this AM and femoral line was removed. Objective Data Date Time Temp Pulse Resp B/P (MAP) Pulse Ox O2 Delivery O2 Flow Rate FiO2 10/02/17 12:59 16 10/02/17 08:15 97 Nasal Cannula 4.00 10/02/17 06:00 80 10/02/17 04:00 98.3 84 16 143/87 (105) 98 10/02/17 04:00 85 10/02/17 02:00 78 10/02/17 00:38 97 Nasal Cannula 4.00 10/02/17 00:00 98.2 92 18 141/85 (103) 96 10/02/17 00:00 92 10/01/17 22:00 93 10/01/17 21:20 16 10/01/17 20:38 96 Nasal Cannula 4.00 10/01/17 20:00 77 10/01/17 20:00 98.0 77 16 142/87 (105) 100 10/01/17 19:04 16 10/01/17 19:00 97 Nasal Cannula 4.00 10/01/17 18:00 105 10/01/17 16:00 98.4 86 21 160/90 (113) 95 10/01/17 16:00 86 10/02/17 10/02/17 10/02/17 07:00 15:00 23:00 Intake Total 100 ml Output Total 900 ml Balance -800 ml Result Diagram: 10/02/17 0829 10/02/17 0330 Laboratory Results Laboratory Tests Test 10/01/17 17:30 10/02/17 00:15 10/02/17 03:30 10/02/17 08:29 White Blood Count 7.8 TH/MM3 7.2 TH/MM3 6.4 TH/MM3 5.5 TH/MM3 Red Blood Count 3.85 MIL/MM3 3.68 MIL/MM3 3.54 MIL/MM3 3.53 MIL/MM3 Hemoglobin 10.8 GM/DL 10.2 GM/DL 9.8 GM/DL 9.9 GM/DL Hematocrit 33.0 % 31.3 % 30.1 % 29.8 % Mean Corpuscular Volume 85.7 FL 85.1 FL 85.0 FL 84.4 FL Mean Corpuscular Hemoglobin 28.0 PG 27.8 PG 27.8 PG 28.1 PG Mean Corpuscular Hemoglobin Concent 32.6 % 32.7 % 32.7 % 33.2 % Red Cell Distribution Width 18.0 % 17.6 % 17.6 % 17.7 % Platelet Count 173 TH/MM3 158 TH/MM3 141 TH/MM3 133 TH/MM3 Mean Platelet Volume 7.5 FL 7.2 FL 7.0 FL 6.8 FL Neutrophils (%) (Auto) 92.7 % 93.0 % 92.4 % 90.9 % Lymphocytes (%) (Auto) 2.1 % 1.3 % 1.5 % 1.7 % Monocytes (%) (Auto) 5.1 % 5.7 % 6.0 % 7.3 % Eosinophils (%) (Auto) 0.0 % 0.0 % 0.0 % 0.0 % Basophils (%) (Auto) 0.1 % 0.0 % 0.1 % 0.1 % Neutrophils # (Auto) 7.2 TH/MM3 6.7 TH/MM3 5.9 TH/MM3 5.0 TH/MM3 Lymphocytes # (Auto) 0.2 TH/MM3 0.1 TH/MM3 0.1 TH/MM3 0.1 TH/MM3 Monocytes # (Auto) 0.4 TH/MM3 0.4 TH/MM3 0.4 TH/MM3 0.4 TH/MM3 Eosinophils # (Auto) 0.0 TH/MM3 0.0 TH/MM3 0.0 TH/MM3 0.0 TH/MM3 Basophils # (Auto) 0.0 TH/MM3 0.0 TH/MM3 0.0 TH/MM3 0.0 TH/MM3 CBC Comment AUTO DIFF AUTO DIFF AUTO DIFF AUTO DIFF Differential Total Cells Counted 100 100 100 100 Neutrophils % (Manual) 89 % 94 % 89 % 82 % Lymphocytes % 4 % 3 % Monocytes % 4 % 4 % 7 % Neutrophils # (Manual) 7.2 TH/MM3 7.2 TH/MM3 6.1 TH/MM3 5.0 TH/MM3 Promyelocytes 3 % Differential Comment FINAL DIFF MANUAL FINAL DIFF MANUAL FINAL DIFF MANUAL FINAL DIFF MANUAL Platelet Estimate NORMAL NORMAL LOW LOW Platelet Morphology Comment NORMAL NORMAL NORMAL NORMAL Tear Drop Cells 1+ 1+ Ovalocytes 1+ 1+ Activated Partial Thromboplast Time 32.4 SEC 28.9 SEC 28.0 SEC Fibrinogen 123 mg/dL 66 mg/dL 67 mg/dL Band Neutrophils % 2 % 3 % 6 % Metamyelocytes 3 % 4 % Myelocytes 1 % 2 % Nucleated Red Blood Cells 1 /100 WBC 1 /100 WBC Polychromasia 2.2 % Basophilic Stippling FAINT MOD Blood Urea Nitrogen 13 MG/DL Creatinine 0.86 MG/DL Random Glucose 142 MG/DL Total Protein 5.5 GM/DL Albumin 2.5 GM/DL Calcium Level 8.9 MG/DL Alkaline Phosphatase 57 U/L Aspartate Amino Transf (AST/SGOT) 57 U/L Alanine Aminotransferase (ALT/SGPT) 97 U/L Total Bilirubin 0.5 MG/DL Sodium Level 141 MEQ/L Potassium Level 4.1 MEQ/L Chloride Level 105 MEQ/L Carbon Dioxide Level 26.7 MEQ/L Anion Gap 9 MEQ/L Estimat Glomerular Filtration Rate 98 ML/MIN Random Vancomycin Level 11.9 COMMENT Test 10/02/17 10:55 Activated Partial Thromboplast Time 21.2 SEC Fibrinogen 78 mg/dL Lactic Acid Level 1.7 mmol/L Culture Results Microbiology Date/Time Source Procedure Growth Status 09/30/17 13:45 Blood Other Aerobic Blood Culture - Preliminary NO GROWTH IN 2 DAYS Resulted 09/30/17 13:45 Blood Other Anaerobic Blood Culture - Preliminary NO GROWTH IN 2 DAYS Resulted 09/29/17 17:10 Blood Peripheral Aerobic Blood Culture - Preliminary NO GROWTH IN 3 DAYS Resulted 09/29/17 17:10 Blood Peripheral Anaerobic Blood Culture - Preliminary NO GROWTH IN 3 DAYS Resulted 09/29/17 17:00 Blood Peripheral Aerobic Blood Culture - Preliminary NO GROWTH IN 3 DAYS Resulted 09/29/17 17:00 Blood Peripheral Anaerobic Blood Culture - Preliminary NO GROWTH IN 3 DAYS Resulted 09/30/17 18:05 Sputum Expectorated Sputum Gram Stain - Final Complete 09/30/17 18:05 Sputum Expectorated Sputum Sputum Culture - Final HEAVY GROWTH NORMAL RESPIRATORY TYRON Complete 09/30/17 18:00 Urine Random Urine Legionella Antigen - Final PRESUMPTIVE NEGATIVE FOR LEGIONELLA P... Complete Imaging Studies Last 24 hours Impressions Liver Ultrasound 10/02/17 0000 Signed Impressions: Service Date/Time: Monday, October 02, 2017 10:24 - CONCLUSION: Echogenic liver with mildly prominent spleen. Trace left pleural effusion. Román Howard MD FACR Administered Medications Medications (Trade) Dose Ordered Sig/Suzan Route PRN Reason Start Time Stop Time Status Last Admin Dose Admin Sodium Chloride (NS Flush) 2 ml BID IV FLUSH 09/29/17 21:00 10/02/17 09:00 Albuterol Sulfate (Albuterol Neb) 2.5 mg QID NEB NEB 09/29/17 20:00 10/02/17 12:58 Lorazepam (Ativan) 0.5 mg Q6HR PRN PO anxiety 09/29/17 17:30 10/02/17 06:45 Morphine Sulfate (Msir) 30 mg Q6HR PRN PO PAIN1-10 09/29/17 17:30 10/01/17 02:16 Senna/Docusate Sodium (Naa-Colace) 1 tab BID PO 09/29/17 21:00 10/02/17 11:48 Thiamine HCl (Vitamin B1) 100 mg DAILY PO 10/01/17 09:00 10/02/17 11:48 Methylprednisolone Sodium Succinate (SoluMEDROL INJ) 30 mg Q12H IV PUSH 09/30/17 20:00 10/02/17 11:48 Acetaminophen (Tylenol) 650 mg Q4H PRN PO TEMP > 100.4 / HEADACHE/BONE P 09/30/17 21:15 10/01/17 20:20 Chlorhexidine Gluconate (Chlorhexidine 2% Cloth) 3 pack DAILY@04 TOPICAL 10/01/17 04:00 10/05/17 04:01 10/02/17 03:03 Morphine Sulfate (Morphine Inj) 10 mg Q3HR PRN IV PUSH breakthrough 10/01/17 20:45 10/02/17 11:50 Ceftriaxone Sodium 2000 mg/ Sodium Chloride 100 ml @ 200 mls/hr Q24H IV 10/02/17 12:00 10/02/17 11:49 Objective Remarks GENERAL: Pleasant male, sitting up in bed receiving breathing treatment. facial swelling improved from yesterday. SKIN: Warm and dry. +crepitus, right chest wall. HEAD: Normocephalic. EYES: No injection or drainage. NECK: Supple. CARDIOVASCULAR: Regular rate and rhythm RESPIRATORY: crackles, left posterior inferior lung flores. anterior flores with occasional rhonchi. GASTROINTESTINAL: Abdomen soft, non-tender, nondistended. EXTREMITIES: No cyanosis. LUE with improving edema, better range of motion today. NEUROLOGICAL: awake and alert. slightly nasally speech. moving all extremities. Assessment/Plan Problem List: (1) DVT of upper extremity (deep vein thrombosis) ICD Codes: I82.629 - Acute embolism and thrombosis of deep veins of unspecified upper extremity Status: Acute Plan: 10/02: s/p tpa yesterday. arm swelling significantly improved today. continues on heparin gtt. -- CT chest shows no SVC syndrome. (2) T-cell lymphoma ICD Codes: C85.90 - Non-Hodgkin lymphoma, unspecified, unspecified site Status: Chronic Plan: -- Status post CHOP chemotherapy in clinic. --In remission --Recent biopsy of lung showed no lymphoma involvement (3) Subcutaneous crepitus ICD Codes: R23.9 - Unspecified skin changes Status: Acute (4) Lung consolidation ICD Codes: J18.1 - Lobar pneumonia, unspecified organism Status: Acute Plan: --on Zithromax + Vfend+ Rocephin Assessment 42-year-old male with T-cell lymphoma admitted with new left upper extremity extensive DVT Plan 1. continue heparin 2. monitor blood cultures 3. continue antibiotics per infectious disease. Attending Statement The exam, history, and the medical decision-making described in the above note were completed with the assistance of the mid-level provider. I reviewed and agree with the findings presented. I attest that I had a [id number] encounter with the patient on the same day, and personally performed and documented my assessment and findings in the medical record. Events noted. s/p thrombolytic therapy. L arm and face less swollen, still tachycardic, fibrinogen low, UFH continue Consult Dr. Garibay for removal of port possibly tomorrow or day after. Monitor hgb and platelet count. Continue abx per ID. Problem Qualifiers (1) DVT of upper extremity (deep vein thrombosis): Qualified Codes: I82.622 - Acute embolism and thrombosis of deep veins of left upper extremity Doris Liu October 02, 2017 13:19 Aysha Leigh MD October 02, 2017 17:36
--- NOTE | 2017-10-02 14:54 | HHI.IDPN ---
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 This is his 3rd admission at the hospital for recurrent pneumonias. He has undergone a bronchoscopy twice with all culture no growth so far. He also had an open lung biopsy last admission as infiltrates worsened despite IV antibiotics and antifungals. Lung biopsy c/w acute lung injury possibly chemoinduced injury. No fungal elements identified and PCP stain was negative. He has had extensive workup and results of most serology are now available. Legionella serovar 6 positive IgG. Mycoplasma IgG positive. He has however responded to some extent to Vfend and since serology in an Immune compromised person may not be reliable a decision was made to stop antibiotics as he did not respond to antibacterials including for atypical pneumonia and he was discharged home on Voriconazole (Vfend trade name). He reports compliance with meds. He reports being home except 1 day he stepped out for dinner with family. No sick contacts Risk factor: multiple hospitalizations, Immune compromised Port in place left chest wall. No recent travel. History of significant mold exposure in prior home. No recent change in AC at home or any other significant exposures. Kids and pets are doing well with no illnesses. 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 He developed change in voice in last 1 week with nasal squeakiness. He reports no episodes of apnea or choking sensation but does experience shortness of breath off and on. Denies any difficulty swallowing. He denies pooling of saliva. He reports since a day prior to admission his noticed left side face, left chest wall, left UE swelling. She initially noted air like bubbles under skin. He underwent imaging at [place] with extensive DVT involving veins of LUE and neck left side. He reports cough with occ expectoration. Denies any chest pain. CT showed consolidation increased since last admission. He also reports serous discharge from Rt chest wall at prior chest tube site. ID consulted for evaluation and Mment of possible HCAP in an IC patient. Delayed entry. Overnight events reviewed No fevers No rash No diarrhea Facial swelling better. Opens eyes almost fully. LUE swelling reduced. s/p IR intervention with tPA followed by heparin gtt. dagoberto Day Antibiotics Cefepime IV Vanco IV Azithro IV Voriconazole. Lines Port site ok PIV sites ok. Past Medical History reviewed Allergies: Coded Allergies: No Known Allergies (Unverified , 09/29/17) Objective . Vital Signs Date Time Temp Pulse Resp B/P (MAP) Pulse Ox O2 Delivery O2 Flow Rate FiO2 10/02/17 12:59 16 10/02/17 08:15 97 Nasal Cannula 4.00 10/02/17 07:00 97 Nasal Cannula 4.00 10/02/17 06:00 80 10/02/17 04:00 98.3 84 16 143/87 (105) 98 10/02/17 04:00 85 10/02/17 02:00 78 10/02/17 00:38 97 Nasal Cannula 4.00 10/02/17 00:00 98.2 92 18 141/85 (103) 96 10/02/17 00:00 92 10/01/17 22:00 93 10/01/17 21:20 16 10/01/17 20:38 96 Nasal Cannula 4.00 10/01/17 20:00 77 10/01/17 20:00 98.0 77 16 142/87 (105) 100 10/01/17 19:04 16 10/01/17 19:00 97 Nasal Cannula 4.00 10/01/17 18:00 105 10/01/17 16:00 98.4 86 21 160/90 (113) 95 10/01/17 16:00 86 . Laboratory Tests Test 09/30/17 19:08 10/01/17 17:30 10/02/17 00:15 10/02/17 03:30 White Blood Count 8.5 TH/MM3 7.8 TH/MM3 7.2 TH/MM3 6.4 TH/MM3 Red Blood Count 4.30 MIL/MM3 3.85 MIL/MM3 3.68 MIL/MM3 3.54 MIL/MM3 Hemoglobin 12.0 GM/DL 10.8 GM/DL 10.2 GM/DL 9.8 GM/DL Hematocrit 36.7 % 33.0 % 31.3 % 30.1 % Mean Corpuscular Volume 85.4 FL 85.7 FL 85.1 FL 85.0 FL Mean Corpuscular Hemoglobin 28.0 PG 28.0 PG 27.8 PG 27.8 PG Mean Corpuscular Hemoglobin Concent 32.8 % 32.6 % 32.7 % 32.7 % Red Cell Distribution Width 17.9 % 18.0 % 17.6 % 17.6 % Platelet Count 196 TH/MM3 173 TH/MM3 158 TH/MM3 141 TH/MM3 Mean Platelet Volume 7.5 FL 7.5 FL 7.2 FL 7.0 FL Neutrophils (%) (Auto) 94.4 % 92.7 % 93.0 % 92.4 % Lymphocytes (%) (Auto) 1.6 % 2.1 % 1.3 % 1.5 % Monocytes (%) (Auto) 3.8 % 5.1 % 5.7 % 6.0 % Eosinophils (%) (Auto) 0.0 % 0.0 % 0.0 % 0.0 % Basophils (%) (Auto) 0.2 % 0.1 % 0.0 % 0.1 % Neutrophils # (Auto) 8.0 TH/MM3 7.2 TH/MM3 6.7 TH/MM3 5.9 TH/MM3 Lymphocytes # (Auto) 0.1 TH/MM3 0.2 TH/MM3 0.1 TH/MM3 0.1 TH/MM3 Monocytes # (Auto) 0.3 TH/MM3 0.4 TH/MM3 0.4 TH/MM3 0.4 TH/MM3 Eosinophils # (Auto) 0.0 TH/MM3 0.0 TH/MM3 0.0 TH/MM3 0.0 TH/MM3 Basophils # (Auto) 0.0 TH/MM3 0.0 TH/MM3 0.0 TH/MM3 0.0 TH/MM3 CBC Comment AUTO DIFF AUTO DIFF AUTO DIFF AUTO DIFF Differential Total Cells Counted 100 100 100 100 Neutrophils % (Manual) 82 % 89 % 94 % 89 % Band Neutrophils % 10 % 2 % 3 % Lymphocytes % 3 % 4 % Monocytes % 2 % 4 % 4 % Neutrophils # (Manual) 8.1 TH/MM3 7.2 TH/MM3 7.2 TH/MM3 6.1 TH/MM3 Metamyelocytes 1 % 3 % 4 % Myelocytes 2 % 1 % Differential Comment FINAL DIFF MANUAL FINAL DIFF MANUAL FINAL DIFF MANUAL FINAL DIFF MANUAL Platelet Estimate NORMAL NORMAL NORMAL LOW Platelet Morphology Comment NORMAL NORMAL NORMAL NORMAL Tear Drop Cells 1+ 1+ Ovalocytes 1+ 1+ 1+ Promyelocytes 3 % Nucleated Red Blood Cells 1 /100 WBC Polychromasia 2.2 % Basophilic Stippling FAINT Test 10/02/17 08:29 White Blood Count 5.5 TH/MM3 Red Blood Count 3.53 MIL/MM3 Hemoglobin 9.9 GM/DL Hematocrit 29.8 % Mean Corpuscular Volume 84.4 FL Mean Corpuscular Hemoglobin 28.1 PG Mean Corpuscular Hemoglobin Concent 33.2 % Red Cell Distribution Width 17.7 % Platelet Count 133 TH/MM3 Mean Platelet Volume 6.8 FL Neutrophils (%) (Auto) 90.9 % Lymphocytes (%) (Auto) 1.7 % Monocytes (%) (Auto) 7.3 % Eosinophils (%) (Auto) 0.0 % Basophils (%) (Auto) 0.1 % Neutrophils # (Auto) 5.0 TH/MM3 Lymphocytes # (Auto) 0.1 TH/MM3 Monocytes # (Auto) 0.4 TH/MM3 Eosinophils # (Auto) 0.0 TH/MM3 Basophils # (Auto) 0.0 TH/MM3 CBC Comment AUTO DIFF Differential Total Cells Counted 100 Neutrophils % (Manual) 82 % Band Neutrophils % 6 % Lymphocytes % 3 % Monocytes % 7 % Neutrophils # (Manual) 5.0 TH/MM3 Myelocytes 2 % Nucleated Red Blood Cells 1 /100 WBC Differential Comment FINAL DIFF MANUAL Platelet Estimate LOW Platelet Morphology Comment NORMAL Basophilic Stippling MOD Tear Drop Cells 1+ Laboratory Tests Test 09/30/17 16:44 09/30/17 19:08 09/30/17 22:45 10/01/17 01:52 Lactic Acid Level 6.3 mmol/L 5.5 mmol/L 3.4 mmol/L Blood Urea Nitrogen 16 MG/DL Creatinine 1.25 MG/DL Random Glucose 243 MG/DL Total Protein 6.4 GM/DL Albumin 2.9 GM/DL Calcium Level 8.8 MG/DL Alkaline Phosphatase 79 U/L Aspartate Amino Transf (AST/SGOT) 44 U/L Alanine Aminotransferase (ALT/SGPT) 89 U/L Total Bilirubin 0.3 MG/DL Sodium Level 136 MEQ/L Potassium Level 4.1 MEQ/L Chloride Level 103 MEQ/L Carbon Dioxide Level 17.0 MEQ/L Anion Gap 16 MEQ/L Estimat Glomerular Filtration Rate 63 ML/MIN Test 10/01/17 11:00 10/02/17 03:30 10/02/17 10:55 Blood Urea Nitrogen 13 MG/DL 13 MG/DL Creatinine 0.87 MG/DL 0.86 MG/DL Random Glucose 143 MG/DL 142 MG/DL Total Protein 6.1 GM/DL 5.5 GM/DL Albumin 2.6 GM/DL 2.5 GM/DL Calcium Level 8.8 MG/DL 8.9 MG/DL Phosphorus Level 3.1 MG/DL Magnesium Level 2.1 MG/DL Alkaline Phosphatase 62 U/L 57 U/L Aspartate Amino Transf (AST/SGOT) 60 U/L 57 U/L Alanine Aminotransferase (ALT/SGPT) 83 U/L 97 U/L Total Bilirubin 0.4 MG/DL 0.5 MG/DL Sodium Level 138 MEQ/L 141 MEQ/L Potassium Level 5.1 MEQ/L 4.1 MEQ/L Chloride Level 107 MEQ/L 105 MEQ/L Carbon Dioxide Level 22.0 MEQ/L 26.7 MEQ/L Anion Gap 9 MEQ/L 9 MEQ/L Estimat Glomerular Filtration Rate 96 ML/MIN 98 ML/MIN Lactic Acid Level 3.3 mmol/L 1.7 mmol/L Microbiology Date/Time Source Procedure Growth Status 09/30/17 13:45 Blood Other Aerobic Blood Culture - Preliminary NO GROWTH IN 2 DAYS Resulted 09/30/17 13:45 Blood Other Anaerobic Blood Culture - Preliminary NO GROWTH IN 2 DAYS Resulted 09/29/17 17:10 Blood Peripheral Aerobic Blood Culture - Preliminary NO GROWTH IN 3 DAYS Resulted 09/29/17 17:10 Blood Peripheral Anaerobic Blood Culture - Preliminary NO GROWTH IN 3 DAYS Resulted 09/29/17 17:00 Blood Peripheral Aerobic Blood Culture - Preliminary NO GROWTH IN 3 DAYS Resulted 09/29/17 17:00 Blood Peripheral Anaerobic Blood Culture - Preliminary NO GROWTH IN 3 DAYS Resulted 09/30/17 18:05 Sputum Expectorated Sputum Gram Stain - Final Complete 09/30/17 18:05 Sputum Expectorated Sputum Sputum Culture - Final HEAVY GROWTH NORMAL RESPIRATORY TYRON Complete 09/30/17 18:00 Urine Random Urine Legionella Antigen - Final PRESUMPTIVE NEGATIVE FOR LEGIONELLA P... Complete Imaging Last Impressions Chest X-Ray 09/30/17 0000 Signed Impressions: Service Date/Time: Saturday, September 30, 2017 18:27 - CONCLUSION: No significant change Bienvenido Bear MD Chest CT 09/29/17 1509 Signed Impressions: Service Date/Time: Friday, September 29, 2017 15:20 - CONCLUSION: Dense consolidation changes right lung lung with mild volume loss. New significant subcutaneous emphysema extending into the mediastinum, right chest wall left neck There is no evidence of superior vena cava occlusion I cannot tell the status of the left subclavian or axillary vein because of the [id number] placement. . Román Howard MD FACR Upper Extremity Ultrasound 09/29/17 0000 Signed Impressions: Service Date/Time: Friday, September 29, 2017 17:06 - CONCLUSION: 1. Extensive occlusive thrombus left neck and left arm. Db Alcantara MD Physical Exam GENERAL: This is a well-nourished, well-developed patient, in no apparent distress. SKIN: No rashes, ecchymoses or lesions. Cool and dry. HEAD: Atraumatic. Normocephalic. No temporal or scalp tenderness. EYES: Left eyelid swelling reduced. Pupils equal round and reactive. Extraocular motions intact. No scleral icterus. No injection or drainage. ENT: Nose without bleeding, purulent drainage or septal hematoma. Throat without erythema, tonsillar hypertrophy or exudate. Uvula midline. Airway patent. Face and Neck: Trachea midline. Supple, nontender, no meningeal signs. Facial swelling much reduced. LUE swelling reduced as well. CARDIOVASCULAR: Regular rate and rhythm without murmurs, gallops, or rubs. RESPIRATORY: AE decreased R > L. Creps R>L. GASTROINTESTINAL: Abdomen soft, non-tender, nondistended. Obese abdomen. MUSCULOSKELETAL: Extremities without clubbing, cyanosis, or edema. No joint tenderness, effusion, or edema noted. No calf tenderness. Negative Homans sign bilaterally. NEUROLOGICAL: Awake and alert. Cranial nerves II through XII intact. Motor and sensory grossly within normal limits. Five out of 5 muscle strength in all muscle groups. Normal speech. Port site deep non tender no erythema or induration. Psych cooperative, pleasant. Assessment & Plan Remarks Severe Sepsis Recurrent pneumonia Possible Health care associated pneumonia (multiple recent hospitalizations) New left eyelid swelling and drooping of eyelid ? ptosis vs due to eyelid swelling. Blisters on left forearm and arm: unlikely antibiotic related. ? due to extensive LUE swelling. No other rash or oral lesions. 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 Abnormal LFTs: Sepsis, Vfend. Left neck and LUE extensive DVT Subcut emphysema and in mediastinum T cell lymphoma s/p chemo and radiation Immunocompromised Recs Continue Cefepime IV DC Vanco IV (target 15-20 for PNA, possible bacteremia) Continue Azithro change to oral (for atypical PNA) Continue Voriconazole oral for aspergillosis empiric Heparin per primary team Follow sputum for legionella culture Follow cultures Follow clinically Follow LFTs Follow QT interval while on Vfend and Azithro. 12 lead EKG when symptomatic. Sarah Dwyer MD October 02, 2017 14:54
[2017-10-02] MEDS: MORPHINE SULFATE 4 MG/ML INJ IV PUSH PRN ×3 (16:50→23:22)
[2017-10-03] VITALS (16 sets, daily range): BP systolic 133–188; BP diastolic 80–110; PULSE 79–112; RESP 16–24; TEMP 97.6–98.8; O2SAT 93–98
[2017-10-03] MEDS: HEPARIN-D5W 25,000 U/250 ML 250 ML IV PRN (00:15)
[2017-10-03] MEDS: MORPHINE SULFATE 4 MG/ML INJ IV PUSH PRN ×5 (03:39→20:25)
[2017-10-03] MEDS: INSULIN NovoLIN REGULAR SUPPLEMENTAL SCALE SQ SCH ×4 (03:49→22:54)
[2017-10-03] MEDS: CHLORHEXIDINE GLUCONATE 2 % 1 PACK (2 CLOTHS)(taper/protocol) TOPICAL SCH (03:49)
[2017-10-03 03:58] LABS: AUTOMATED NEUTROPHIL # 6.1 TH/MM3 (1.8-7.7); BASOPHIL % 0.1 % (0.0-2.0); HEMATOCRIT 31.4 % (39.0-51.0); HEMOGLOBIN 10.5 GM/DL (13.0-17.0); LYMPH % 1.9 % (9.0-44.0); LYMPHOCYTE # 0.1 TH/MM3 (1.0-4.8); MEAN CORPUSCULAR HEMOGLOBIN 28.3 PG (27.0-34.0); MEAN CORPUSCULAR HGB CONC 33.3 % (32.0-36.0); MEAN PLATELET VOLUME 7.5 FL (7.0-11.0); MONOCYTE # 0.4 TH/MM3 (0-0.9); PLATELET COUNT 141 TH/MM3 (150-450); RED CELL DISTRIBUTION WIDTH 17.8 % (11.6-17.2); WHITE BLOOD COUNT 6.6 TH/MM3 (4.0-11.0)
[2017-10-03 04:15] LABS: ALBUMIN 2.8 GM/DL (3.4-5.0); ALT (GPT) 109 U/L (12-78); AST (GOT) 41 U/L (15-37); BICARBONATE 33.5 MEQ/L (21.0-32.0); BLOOD UREA NITROGEN 17 MG/DL (7-18); CALCIUM 8.8 MG/DL (8.5-10.1); CHLORIDE 101 MEQ/L (98-107); CREATININE 0.84 MG/DL (0.60-1.30); GLOMERULAR FILTRATION RATE 100 ML/MIN (>89); GLUCOSE,RANDOM 199 MG/DL (74-106); MAGNESIUM 2.3 MG/DL (1.5-2.5); PHOSPHORUS 2.3 MG/DL (2.5-4.9); SODIUM (NA) 140 MEQ/L (136-145)
[2017-10-03 04:17] LABS: ALKALINE PHOSPHATASE 72 U/L (45-117); TOTAL BILIRUBIN ADULT 0.2 MG/DL (0.2-1.0); TOTAL PROTEIN 5.7 GM/DL (6.4-8.2)
[2017-10-03 05:09] LABS: BANDS 8 % (0-6); CORRECTED NUCLEATED RBC 3 /100 WBC (0-0); LYMPHOCYTES 3 % (9-44); METAMYELOCYTES 4 % (0-1); MONOCYTES 1 % (0-8); MYELOCYTES 1 % (0-0); NEUTROPHIL # MANUAL DIFF 6.3 TH/MM3 (1.8-7.7); NUCLEATED RED BLOOD CELL 2 (0-0); POLYS (SEG NEUTROPHILS) 83 % (16-70)
--- NOTE | 2017-10-03 07:43 | HHI.CCPN ---
Subjective Remarks/Hospital Course 42-year-old male with a history of hypertension and T-cell lymphoma status post chemo. He was recently discharged over 10 days ago after being treated for right lung pneumonia presumably fungal etiology on Vfend status post bronchoscopy and VATS. He has been compliant with therapy and has been doing well until this morning when he noticed left face and neck swelling which progressed involving the left chest and left upper extremity with crepitation. CT of the chest does not show evidence of SVC however shows extensive occlusive thrombus left neck and left arm. He was also complaining of productive cough yellow phlegm and shortness of breath with wheezing. Denies fever or chills. In the ED he has tachycardia, tachypnea and leukocytosis with right lung consolidation on chest CT and has been started on IV vancomycin, IV Zithromax and IV cefepime for hospital-acquired pneumonia. Blood cultures were obtained. He was admitted to hospitalist service however his clinical picture deteriorated, including elevated lactic acid and the patient was transferred to ICU for higher level of care. 10/01 Patient is on 4L oxygen Lactic acid is trending down 3.4 from 6.3. Afebrile. 10/02 Patient s/p venogram with thrombolysis yesterday showed extensive thrombus. Patient was off TPA at 1:30 this morning for low fibrinogen (66-67). Remains on Heparin drip. Awake and alert. 10/03 Patient s/p Angioplasty (left brachiocephalic and left IJ), Venogram yesterday showed stenosis in central left brachiocephalic PLANNING SUPERVISOR to 10 mm. Mild stenosis central left IJ PLANNING SUPERVISOR to 7mm. Minimal residual thrombus in left IJ. Deep venous system patent. Awake and alert. On Heparin drip. Objective Vital Signs Date Time Temp Pulse Resp B/P (MAP) Pulse Ox O2 Delivery O2 Flow Rate FiO2 10/03/17 06:38 16 10/03/17 06:00 103 10/03/17 04:00 98.2 138/80 (99) 96 10/02/17 19:50 Nasal Cannula 4.00 Intake and Output 10/03/17 10/03/17 10/04/17 08:00 16:00 00:00 Intake Total 240 ml Output Total 1200 ml Balance -960 ml Result Diagram: 10/03/17 0330 10/03/17 0330 Other Results Laboratory Tests Test 10/02/17 08:29 10/02/17 10:55 10/02/17 18:25 10/03/17 03:30 White Blood Count 5.5 TH/MM3 6.6 TH/MM3 Red Blood Count 3.53 MIL/MM3 3.70 MIL/MM3 Hemoglobin 9.9 GM/DL 10.5 GM/DL Hematocrit 29.8 % 31.4 % Mean Corpuscular Volume 84.4 FL 85.0 FL Mean Corpuscular Hemoglobin 28.1 PG 28.3 PG Mean Corpuscular Hemoglobin Concent 33.2 % 33.3 % Red Cell Distribution Width 17.7 % 17.8 % Platelet Count 133 TH/MM3 141 TH/MM3 Mean Platelet Volume 6.8 FL 7.5 FL Neutrophils (%) (Auto) 90.9 % 92.0 % Lymphocytes (%) (Auto) 1.7 % 1.9 % Monocytes (%) (Auto) 7.3 % 6.0 % Eosinophils (%) (Auto) 0.0 % 0.0 % Basophils (%) (Auto) 0.1 % 0.1 % Neutrophils # (Auto) 5.0 TH/MM3 6.1 TH/MM3 Lymphocytes # (Auto) 0.1 TH/MM3 0.1 TH/MM3 Monocytes # (Auto) 0.4 TH/MM3 0.4 TH/MM3 Eosinophils # (Auto) 0.0 TH/MM3 0.0 TH/MM3 Basophils # (Auto) 0.0 TH/MM3 0.0 TH/MM3 CBC Comment AUTO DIFF AUTO DIFF Differential Total Cells Counted 100 78 Neutrophils % (Manual) 82 % 83 % Band Neutrophils % 6 % 8 % Lymphocytes % 3 % 3 % Monocytes % 7 % 1 % Neutrophils # (Manual) 5.0 TH/MM3 6.3 TH/MM3 Myelocytes 2 % 1 % Nucleated Red Blood Cells 1 /100 WBC 3 /100 WBC Differential Comment FINAL DIFF MANUAL FINAL DIFF MANUAL Platelet Estimate LOW NORMAL Platelet Morphology Comment NORMAL NORMAL Basophilic Stippling MOD Tear Drop Cells 1+ Activated Partial Thromboplast Time 21.2 SEC 57.7 SEC 54.8 SEC Fibrinogen 78 mg/dL Lactic Acid Level 1.7 mmol/L Metamyelocytes 4 % Blood Urea Nitrogen 17 MG/DL Creatinine 0.84 MG/DL Random Glucose 199 MG/DL Total Protein 5.7 GM/DL Albumin 2.8 GM/DL Calcium Level 8.8 MG/DL Phosphorus Level 2.3 MG/DL Magnesium Level 2.3 MG/DL Alkaline Phosphatase 72 U/L Aspartate Amino Transf (AST/SGOT) 41 U/L Alanine Aminotransferase (ALT/SGPT) 109 U/L Total Bilirubin 0.2 MG/DL Sodium Level 140 MEQ/L Potassium Level 4.0 MEQ/L Chloride Level 101 MEQ/L Carbon Dioxide Level 33.5 MEQ/L Anion Gap 6 MEQ/L Estimat Glomerular Filtration Rate 100 ML/MIN Imaging Last Impressions Miscellaneous Special Procedure 10/02/17 0000 Signed Impressions: Service Date/Time: Monday, October 02, 2017 08:14 - CONCLUSION: 1. Almost complete resolution of the previously seen extensive central venous thrombosis. Only small amount of mural thrombus remains in the left internal jugular. This is not flow limiting. 2. Stenosis of the central portions of the left brachiocephalic vein and left internal jugular. These were balloon dilated to 10 and 7 mm, respectively with an excellent angiographic result. Alonso Leonardo MD Liver Ultrasound 10/02/17 0000 Signed Impressions: Service Date/Time: Monday, October 02, 2017 10:24 - CONCLUSION: Echogenic liver with mildly prominent spleen. Trace left pleural effusion. Román Howard MD FACR Head/Brain Mag Res Venography 10/01/17 0925 Signed Impressions: Service Date/Time: Sunday, October 01, 2017 11:30 - CONCLUSION: 1. No evidence of cortical venous or dural sinus venous thrombosis. 2. Hypoplastic left transverse and sigmoid sinuses. Sam Horton MD Venogram 10/01/17 0000 Signed Impressions: Service Date/Time: Sunday, October 01, 2017 12:29 - CONCLUSION: 1. Extensive thrombosis involving the left brachiocephalic, subclavian, axillary and central brachial veins as well as the left internal jugular. 2. Suspect high grade stenosis in the central portion of the left brachiocephalic vein. Patient has a left subclavian port. 3. TPA infusion was initiated utilizing 2 catheters approaching from the left brachial vein and right common femoral vein as detailed above. Alonso Leonardo MD Chest X-Ray 10/01/17 0000 Signed Impressions: Service Date/Time: Sunday, October 01, 2017 10:22 - CONCLUSION: Stable chest. Alonso Leonardo MD Brain MRI 10/01/17 0000 Signed Impressions: Service Date/Time: Sunday, October 01, 2017 11:30 - CONCLUSION: No acute disease. Sam Horton MD Chest CT 09/29/17 1509 Signed Impressions: Service Date/Time: Friday, September 29, 2017 15:20 - CONCLUSION: Dense consolidation changes right lung lung with mild volume loss. New significant subcutaneous emphysema extending into the mediastinum, right chest wall left neck There is no evidence of superior vena cava occlusion I cannot tell the status of the left subclavian or axillary vein because of the [id number] placement. . Román Howard MD FACR Upper Extremity Ultrasound 09/29/17 0000 Signed Impressions: Service Date/Time: Friday, September 29, 2017 17:06 - CONCLUSION: 1. Extensive occlusive thrombus left neck and left arm. Db Alcantara MD Objective Remarks GENERAL: Well-nourished, well-developed patient. SKIN: Warm and dry. HEAD: Normocephalic. EYES: No scleral icterus. No injection or drainage. NECK: Supple, trachea midline. No JVD or lymphadenopathy. CARDIOVASCULAR: Regular rate and rhythm without murmurs, gallops, or rubs. RESPIRATORY: Breath sounds equal bilaterally. Some accessory muscle use. GASTROINTESTINAL: Abdomen soft, non-tender, nondistended. MUSCULOSKELETAL: No cyanosis, +++ edema. LUE BACK: Nontender without obvious deformity. NEURO EXAM: Awake and alert A/P Assessment and Plan 1)Resp Insuff 2)Lactic acidemia- resolved 3)Extensive DVT LUE, left neck 4)Pneumonia/empyema s/p recent right VTAS 5)T-cell lymphoma s/p XTR and Chemo 6)Hx Bronchial asthma 7) Hypertension 8)Sub Q emphysema 9)Elevated LFT Plan Neuro: Awake and alert MRV brain negative for cavernous sinus thrombosis MRI brain unremarkable Pulm: Continue with oxygen keep sats >92% Bronchodilators, solumederol 30mg Q12 CT chest: Dense consolidation changes right lung lung with mild volume loss. subcutaneous emphysema extending into the mediastinum, right chest wall left neck There is no evidence of SVC occlusion I cannot tell the status of the left subclavian or axillary vein because of the [id number]-[id number] placement per radiology. CXR 10/01 showed clear left lung, opacification right hemithorax ( unchanged) CTS is following- Dr. Frey CV: Monitor HR and BP keep MAP>65mmHg Lactic acid resolved 1.[address] on Cardizem 60mg Q6 for BP control : Monitor renal function, electrolytes replacement per protocol. Will need Phos replacement today s/p Lasix 40mg x1 yesterday with good response in UOP. GI: On PO diet Monitor LFT's, US liver: Echogenic liver with mildly prominent spleen. Check Hepatitis profile. ID: Continue with abx per ID (Cefepime, Azithromycin, Voriconazole) sputum cx-normal resp edgard, Legionella urinary Ag negative, Legionella culture pending. Heme: Monitor CBC, coags- on Heparin drip, Onc is following- Dr. Leigh s/p venogram with thrombolysis 10/01 showed extensive thrombus. 10/02: s/p Angioplasty (left brachiocephalic and left IJ), Venogram yesterday showed stenosis in central left brachiocephalic PLANNING SUPERVISOR to 10 mm. Mild stenosis central left IJ PLANNING SUPERVISOR to 7mm. Minimal residual thrombus in left IJ. Deep venous system patent Off TPA , On Heparin drip- monitor PTT Endo: SSI for glycemic control DVT GI prophylaxis -Bayron's and SCDs -Heparin drip -Pepcid Will sign off and transfer care to [facility] Level 2 Taylor Mead MD October 03, 2017 07:43
[2017-10-03] MEDS ORDERED: POTASSIUM CHLOR 20 MEQ PREMIX 100 ML IV PRN ×2 (07:45)
[2017-10-03] MEDS ORDERED: SODIUM PHOSPHATE INJ 30 MMOL in SODIUM CHLOR 0.9% 250 ML INJ 240 ML IV PRN (07:45)
[2017-10-03] MEDS ORDERED: POTASSIUM PHOSPHATE MONOBASIC 500 MG TAB PO/TUBE PRN (07:45)
[2017-10-03] MEDS ORDERED: POTASSIUM PHOSPHATE INJ 30 MMOL in SODIUM CHLOR 0.9% 250 ML INJ 250 ML IV PRN (07:45)
[2017-10-03] MEDS ORDERED: POTASSIUM CHLORIDE 25 MEQ EFFERVESCENT TAB PO PRN (07:45)
[2017-10-03] MEDS ORDERED: POTASSIUM PHOSPHATE MONOBASIC 500 MG TAB PO PRN (07:45)
[2017-10-03] MEDS ORDERED: MAGNESIUM SULFATE INJ 2 GM in SODIUM CHLORIDE 0.9% INJ 96 ML IV PRN (07:45)
[2017-10-03] MEDS ORDERED: MAGNESIUM SULFATE INJ 4 GM in SODIUM CHLORIDE 0.9% INJ 92 ML IV PRN (07:45)
[2017-10-03] MEDS ORDERED: MAGNESIUM OXIDE 400 MG TAB PO PRN (07:45)
[2017-10-03] MEDS ORDERED: POTASSIUM CHLOR 40 MEQ PREMIX 100 ML IV PRN ×2 (07:45)
[2017-10-03] MEDS: RESP: ALBUTEROL 2.5 MG/3 ML NEB (SCH) NEB ×5 (07:54→19:28)
[2017-10-03] MEDS: AZITHROMYCIN 250 MG TAB PO SCH (09:06)
[2017-10-03] MEDS: VORICONAZOLE 200 MG TAB PO SCH (09:06)
[2017-10-03] MEDS: THIAMINE HCL 100 MG TAB PO SCH (09:07)
[2017-10-03] MEDS: methylPREDNISolone SOD SUCC 40 MG/1 ML VIAL IV PUSH SCH ×2 (09:07→20:23)
[2017-10-03] MEDS: DOCUSATE SODIUM 50 MG/SENNA 8.6 MG TAB PO SCH ×2 (09:07→20:24)
[2017-10-03] MEDS: SODIUM CHLORIDE 0.9% FLUSH 10 ML FLUSH IV FLUSH SCH ×2 (09:08→20:24)
--- NOTE | 2017-10-03 09:10 | PD.ONC.PN ---
Subjective Subjective Remarks Afebrile overnight. patient resting in room. really wants to be transferred out of [facility] – [place]. he had a very hard time sleeping last night because it was so loud. noticing improved swelling in left arm and face. Objective Data Date Time Temp Pulse Resp B/P (MAP) Pulse Ox O2 Delivery O2 Flow Rate FiO2 10/03/17 07:54 98 Nasal Cannula 4.00 10/03/17 06:38 16 10/03/17 06:00 103 10/03/17 04:00 96 10/03/17 04:00 98.2 96 16 138/80 (99) 96 10/03/17 02:00 79 10/03/17 00:00 98.8 91 18 133/80 (97) 97 10/03/17 00:00 91 10/02/17 22:00 114 10/02/17 20:00 98.3 109 16 143/87 (105) 94 10/02/17 20:00 109 10/02/17 19:50 98 Nasal Cannula 4.00 10/02/17 19:00 94 Nasal Cannula 4.00 10/02/17 18:00 98 10/02/17 16:00 99.0 107 20 139/87 (104) 97 10/02/17 16:00 107 10/02/17 14:00 118 10/02/17 14:00 98.8 118 19 138/56 (83) 90 10/02/17 12:59 16 10/03/17 10/03/17 10/03/17 06:59 14:59 22:59 Intake Total 240 ml Output Total 1200 ml Balance -960 ml Result Diagram: 10/03/17 0330 10/03/17 0330 Laboratory Results Laboratory Tests Test 10/02/17 10:55 10/02/17 18:25 10/03/17 03:30 Activated Partial Thromboplast Time 21.2 SEC 57.7 SEC 54.8 SEC Fibrinogen 78 mg/dL Lactic Acid Level 1.7 mmol/L White Blood Count 6.6 TH/MM3 Red Blood Count 3.70 MIL/MM3 Hemoglobin 10.5 GM/DL Hematocrit 31.4 % Mean Corpuscular Volume 85.0 FL Mean Corpuscular Hemoglobin 28.3 PG Mean Corpuscular Hemoglobin Concent 33.3 % Red Cell Distribution Width 17.8 % Platelet Count 141 TH/MM3 Mean Platelet Volume 7.5 FL Neutrophils (%) (Auto) 92.0 % Lymphocytes (%) (Auto) 1.9 % Monocytes (%) (Auto) 6.0 % Eosinophils (%) (Auto) 0.0 % Basophils (%) (Auto) 0.1 % Neutrophils # (Auto) 6.1 TH/MM3 Lymphocytes # (Auto) 0.1 TH/MM3 Monocytes # (Auto) 0.4 TH/MM3 Eosinophils # (Auto) 0.0 TH/MM3 Basophils # (Auto) 0.0 TH/MM3 CBC Comment AUTO DIFF Differential Total Cells Counted 78 Neutrophils % (Manual) 83 % Band Neutrophils % 8 % Lymphocytes % 3 % Monocytes % 1 % Neutrophils # (Manual) 6.3 TH/MM3 Metamyelocytes 4 % Myelocytes 1 % Nucleated Red Blood Cells 3 /100 WBC Differential Comment FINAL DIFF MANUAL Platelet Estimate NORMAL Platelet Morphology Comment NORMAL Blood Urea Nitrogen 17 MG/DL Creatinine 0.84 MG/DL Random Glucose 199 MG/DL Total Protein 5.7 GM/DL Albumin 2.8 GM/DL Calcium Level 8.8 MG/DL Phosphorus Level 2.3 MG/DL Magnesium Level 2.3 MG/DL Alkaline Phosphatase 72 U/L Aspartate Amino Transf (AST/SGOT) 41 U/L Alanine Aminotransferase (ALT/SGPT) 109 U/L Total Bilirubin 0.2 MG/DL Sodium Level 140 MEQ/L Potassium Level 4.0 MEQ/L Chloride Level 101 MEQ/L Carbon Dioxide Level 33.5 MEQ/L Anion Gap 6 MEQ/L Estimat Glomerular Filtration Rate 100 ML/MIN Culture Results Microbiology Date/Time Source Procedure Growth Status 09/30/17 13:45 Blood Other Aerobic Blood Culture - Preliminary NO GROWTH IN 2 DAYS Resulted 09/30/17 13:45 Blood Other Anaerobic Blood Culture - Preliminary NO GROWTH IN 2 DAYS Resulted 09/30/17 18:05 Sputum Expectorated Sputum Gram Stain - Final Complete 09/30/17 18:05 Sputum Expectorated Sputum Sputum Culture - Final HEAVY GROWTH NORMAL RESPIRATORY TYRON Complete 09/30/17 18:00 Urine Random Urine Legionella Antigen - Final PRESUMPTIVE NEGATIVE FOR LEGIONELLA P... Complete Administered Medications Medications (Trade) Dose Ordered Sig/Suzan Route PRN Reason Start Time Stop Time Status Last Admin Dose Admin Sodium Chloride (NS Flush) 2 ml BID IV FLUSH 09/29/17 21:00 10/02/17 19:59 Albuterol Sulfate (Albuterol Neb) 2.5 mg QID NEB NEB 09/29/17 20:00 10/03/17 07:54 Lorazepam (Ativan) 0.5 mg Q6HR PRN PO anxiety 09/29/17 17:30 10/02/17 23:22 Morphine Sulfate (Msir) 30 mg Q6HR PRN PO PAIN1-10 09/29/17 17:30 10/01/17 02:16 Senna/Docusate Sodium (Naa-Colace) 1 tab BID PO 09/29/17 21:00 10/02/17 20:00 Thiamine HCl (Vitamin B1) 100 mg DAILY PO 10/01/17 09:00 10/02/17 11:48 Methylprednisolone Sodium Succinate (SoluMEDROL INJ) 30 mg Q12H IV PUSH 09/30/17 20:00 10/02/17 19:59 Acetaminophen (Tylenol) 650 mg Q4H PRN PO TEMP > 100.4 / HEADACHE/BONE P 09/30/17 21:15 10/01/17 20:20 Chlorhexidine Gluconate (Chlorhexidine 2% Cloth) 3 pack DAILY@04 TOPICAL 10/01/17 04:00 10/05/17 04:01 10/03/17 03:49 Insulin Human Regular (NovoLIN R SUPPLEMENTAL SCALE) 1 Q6H SQ 10/01/17 10:00 10/03/17 03:49 Heparin Sodium/ Dextrose 250 ml @ 18 mls/hr TITRATE PRN IV Coagulation Management 10/02/17 12:00 10/03/17 00:15 Ceftriaxone Sodium 2000 mg/ Sodium Chloride 100 ml @ 200 mls/hr Q24H IV 10/02/17 12:00 10/02/17 11:49 Morphine Sulfate (Morphine Inj) 10 mg Q3H PRN IV PUSH breakthrough 10/02/17 16:30 10/03/17 06:33 Objective Remarks GENERAL: Pleasant male, upright in bed in nad. SKIN: Warm and dry. ecchymoses and blood soaked gauze (blood is dry, no active bleeding) noted in right groin. HEAD: Normocephalic. EYES: No injection or drainage. NECK: trachea midline. CARDIOVASCULAR: Regular rate and rhythm RESPIRATORY: diminished breath sounds, right base, occasional rhonchi. On 4L O2 via NC GASTROINTESTINAL: Abdomen soft, non-tender, nondistended. EXTREMITIES: No cyanosis. left arm edema continuing to improve. NEUROLOGICAL: awake and alert. moving extremities. no obvious focal deficit. Assessment/Plan Problem List: (1) DVT of upper extremity (deep vein thrombosis) ICD Codes: I82.629 - Acute embolism and thrombosis of deep veins of unspecified upper extremity Status: Acute Plan: 10/03: continue heparin gtt. 10/01: TPA in invasive radiology -- CT chest shows no SVC syndrome. (2) T-cell lymphoma ICD Codes: C85.90 - Non-Hodgkin lymphoma, unspecified, unspecified site Status: Chronic Plan: -- Status post CHOP chemotherapy in clinic. --In remission --Recent biopsy of lung showed no lymphoma involvement (3) Subcutaneous crepitus ICD Codes: R23.9 - Unspecified skin changes Status: Acute (4) Lung consolidation ICD Codes: J18.1 - Lobar pneumonia, unspecified organism Status: Acute Plan: --on Zithromax + Vfend+ Rocephin Assessment 42-year-old male with T-cell lymphoma admitted with new left upper extremity extensive DVT Plan 1. continue heparin until no other procedures planned (port removal) 2. consult Dr. Garibay with General Surgery for port removal 3. transfer to [facility] oncology 4. ice to right groin. Attending Statement The exam, history, and the medical decision-making described in the above note were completed with the assistance of the mid-level provider. I reviewed and agree with the findings presented. I attest that I had a [id number] encounter with the patient on the same day, and personally performed and documented my assessment and findings in the medical record. s/p port removal, discussed w/ Dr. Mathur. Hold heparin 6 hours post and resume this evening/no bolus. Monitor for bleeding, ice and pressure to area. Blister in L arm but soft. Problem Qualifiers (1) DVT of upper extremity (deep vein thrombosis): Qualified Codes: I82.622 - Acute embolism and thrombosis of deep veins of left upper extremity Doris Liu October 03, 2017 09:10 Aysha Leigh MD October 03, 2017 17:31
[2017-10-03] MEDS: DILTIAZEM HCL 60 MG TAB PO SCH ×4 (09:14→23:06)
[2017-10-03] MEDS: ACETAMINOPHEN 325 MG TAB PO PRN (09:15)
--- NOTE | 2017-10-03 10:56 | HHI.IDPN ---
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 This is his 3rd admission at the hospital for recurrent pneumonias. He has undergone a bronchoscopy twice with all culture no growth so far. He also had an open lung biopsy last admission as infiltrates worsened despite IV antibiotics and antifungals. Lung biopsy c/w acute lung injury possibly chemoinduced injury. No fungal elements identified and PCP stain was negative. He has had extensive workup and results of most serology are now available. Legionella serovar 6 positive IgG. Mycoplasma IgG positive. He has however responded to some extent to Vfend and since serology in an Immune compromised person may not be reliable a decision was made to stop antibiotics as he did not respond to antibacterials including for atypical pneumonia and he was discharged home on Voriconazole (Vfend trade name). He reports compliance with meds. He reports being home except 1 day he stepped out for dinner with family. No sick contacts Risk factor: multiple hospitalizations, Immune compromised Port in place left chest wall. No recent travel. History of significant mold exposure in prior home. No recent change in AC at home or any other significant exposures. Kids and pets are doing well with no illnesses. Since being discharged he has seen and he mentioned to her about Right side facial swelling 1 week [employer]. He developed change in voice in last 1 week with nasal squeakiness. He reports no episodes of apnea or choking sensation but does experience shortness of breath off and on. Denies any difficulty swallowing. He denies pooling of saliva. He reports since a day prior to admission his noticed left side face, left chest wall, left UE swelling. She initially noted air like bubbles under skin. He underwent imaging at [facility] with extensive DVT involving veins of LUE and neck left side. He reports cough with occ expectoration. Denies any chest pain. CT showed consolidation increased since last admission. He also reports serous discharge from Rt chest wall at prior chest tube site. ID consulted for evaluation and Mment of possible HCAP in an IC patient. Overnight events reviewed No fevers No rash No diarrhea Facial swelling better. Opens eyes fully. LUE swelling reduced remarkably. s/p IR intervention with tPA followed by heparin gtt. dagoberto RN Antibiotics Cefepime IV Vanco IV Azithro IV Voriconazole. Lines Port site ok PIV sites ok. Past Medical History reviewed Allergies: Coded Allergies: No Known Allergies (Unverified , 09/29/17) Objective . Vital Signs Date Time Temp Pulse Resp B/P (MAP) Pulse Ox O2 Delivery O2 Flow Rate FiO2 10/03/17 10:06 104 22 141/94 (110) 95 10/03/17 09:00 107 20 160/99 (119) 95 10/03/17 08:00 98.3 98 19 147/94 (111) 97 10/03/17 07:54 98 Nasal Cannula 4.00 10/03/17 07:00 94 Nasal Cannula 4.00 10/03/17 07:00 99 19 164/108 (126) 94 10/03/17 06:38 16 10/03/17 06:00 103 10/03/17 04:00 96 10/03/17 04:00 98.2 96 16 138/80 (99) 96 10/03/17 02:00 79 10/03/17 00:00 98.8 91 18 133/80 (97) 97 10/03/17 00:00 91 10/02/17 22:00 114 10/02/17 20:00 98.3 109 16 143/87 (105) 94 10/02/17 20:00 109 10/02/17 19:50 98 Nasal Cannula 4.00 10/02/17 19:00 94 Nasal Cannula 4.00 10/02/17 18:00 98 10/02/17 16:00 99.0 107 20 139/87 (104) 97 10/02/17 16:00 107 10/02/17 14:00 118 10/02/17 14:00 98.8 118 19 138/56 (83) 90 10/02/17 12:59 16 . Laboratory Tests Test 10/01/17 17:30 10/02/17 00:15 10/02/17 03:30 10/02/17 08:29 White Blood Count 7.8 TH/MM3 7.2 TH/MM3 6.4 TH/MM3 5.5 TH/MM3 Red Blood Count 3.85 MIL/MM3 3.68 MIL/MM3 3.54 MIL/MM3 3.53 MIL/MM3 Hemoglobin 10.8 GM/DL 10.2 GM/DL 9.8 GM/DL 9.9 GM/DL Hematocrit 33.0 % 31.3 % 30.1 % 29.8 % Mean Corpuscular Volume 85.7 FL 85.1 FL 85.0 FL 84.4 FL Mean Corpuscular Hemoglobin 28.0 PG 27.8 PG 27.8 PG 28.1 PG Mean Corpuscular Hemoglobin Concent 32.6 % 32.7 % 32.7 % 33.2 % Red Cell Distribution Width 18.0 % 17.6 % 17.6 % 17.7 % Platelet Count 173 TH/MM3 158 TH/MM3 141 TH/MM3 133 TH/MM3 Mean Platelet Volume 7.5 FL 7.2 FL 7.0 FL 6.8 FL Neutrophils (%) (Auto) 92.7 % 93.0 % 92.4 % 90.9 % Lymphocytes (%) (Auto) 2.1 % 1.3 % 1.5 % 1.7 % Monocytes (%) (Auto) 5.1 % 5.7 % 6.0 % 7.3 % Eosinophils (%) (Auto) 0.0 % 0.0 % 0.0 % 0.0 % Basophils (%) (Auto) 0.1 % 0.0 % 0.1 % 0.1 % Neutrophils # (Auto) 7.2 TH/MM3 6.7 TH/MM3 5.9 TH/MM3 5.0 TH/MM3 Lymphocytes # (Auto) 0.2 TH/MM3 0.1 TH/MM3 0.1 TH/MM3 0.1 TH/MM3 Monocytes # (Auto) 0.4 TH/MM3 0.4 TH/MM3 0.4 TH/MM3 0.4 TH/MM3 Eosinophils # (Auto) 0.0 TH/MM3 0.0 TH/MM3 0.0 TH/MM3 0.0 TH/MM3 Basophils # (Auto) 0.0 TH/MM3 0.0 TH/MM3 0.0 TH/MM3 0.0 TH/MM3 CBC Comment AUTO DIFF AUTO DIFF AUTO DIFF AUTO DIFF Differential Total Cells Counted 100 100 100 100 Neutrophils % (Manual) 89 % 94 % 89 % 82 % Lymphocytes % 4 % 3 % Monocytes % 4 % 4 % 7 % Neutrophils # (Manual) 7.2 TH/MM3 7.2 TH/MM3 6.1 TH/MM3 5.0 TH/MM3 Promyelocytes 3 % Differential Comment FINAL DIFF MANUAL FINAL DIFF MANUAL FINAL DIFF MANUAL FINAL DIFF MANUAL Platelet Estimate NORMAL NORMAL LOW LOW Platelet Morphology Comment NORMAL NORMAL NORMAL NORMAL Tear Drop Cells 1+ 1+ Ovalocytes 1+ 1+ Band Neutrophils % 2 % 3 % 6 % Metamyelocytes 3 % 4 % Myelocytes 1 % 2 % Nucleated Red Blood Cells 1 /100 WBC 1 /100 WBC Polychromasia 2.2 % Basophilic Stippling FAINT MOD Test 10/03/17 03:30 White Blood Count 6.6 TH/MM3 Red Blood Count 3.70 MIL/MM3 Hemoglobin 10.5 GM/DL Hematocrit 31.4 % Mean Corpuscular Volume 85.0 FL Mean Corpuscular Hemoglobin 28.3 PG Mean Corpuscular Hemoglobin Concent 33.3 % Red Cell Distribution Width 17.8 % Platelet Count 141 TH/MM3 Mean Platelet Volume 7.5 FL Neutrophils (%) (Auto) 92.0 % Lymphocytes (%) (Auto) 1.9 % Monocytes (%) (Auto) 6.0 % Eosinophils (%) (Auto) 0.0 % Basophils (%) (Auto) 0.1 % Neutrophils # (Auto) 6.1 TH/MM3 Lymphocytes # (Auto) 0.1 TH/MM3 Monocytes # (Auto) 0.4 TH/MM3 Eosinophils # (Auto) 0.0 TH/MM3 Basophils # (Auto) 0.0 TH/MM3 CBC Comment AUTO DIFF Differential Total Cells Counted 78 Neutrophils % (Manual) 83 % Band Neutrophils % 8 % Lymphocytes % 3 % Monocytes % 1 % Neutrophils # (Manual) 6.3 TH/MM3 Metamyelocytes 4 % Myelocytes 1 % Nucleated Red Blood Cells 3 /100 WBC Differential Comment FINAL DIFF MANUAL Platelet Estimate NORMAL Platelet Morphology Comment NORMAL Laboratory Tests Test 10/01/17 11:00 10/02/17 03:30 10/02/17 10:55 10/03/17 03:30 Blood Urea Nitrogen 13 MG/DL 13 MG/DL 17 MG/DL Creatinine 0.87 MG/DL 0.86 MG/DL 0.84 MG/DL Random Glucose 143 MG/DL 142 MG/DL 199 MG/DL Total Protein 6.1 GM/DL 5.5 GM/DL 5.7 GM/DL Albumin 2.6 GM/DL 2.5 GM/DL 2.8 GM/DL Calcium Level 8.8 MG/DL 8.9 MG/DL 8.8 MG/DL Phosphorus Level 3.1 MG/DL 2.3 MG/DL Magnesium Level 2.1 MG/DL 2.3 MG/DL Alkaline Phosphatase 62 U/L 57 U/L 72 U/L Aspartate Amino Transf (AST/SGOT) 60 U/L 57 U/L 41 U/L Alanine Aminotransferase (ALT/SGPT) 83 U/L 97 U/L 109 U/L Total Bilirubin 0.4 MG/DL 0.5 MG/DL 0.2 MG/DL Sodium Level 138 MEQ/L 141 MEQ/L 140 MEQ/L Potassium Level 5.1 MEQ/L 4.1 MEQ/L 4.0 MEQ/L Chloride Level 107 MEQ/L 105 MEQ/L 101 MEQ/L Carbon Dioxide Level 22.0 MEQ/L 26.7 MEQ/L 33.5 MEQ/L Anion Gap 9 MEQ/L 9 MEQ/L 6 MEQ/L Estimat Glomerular Filtration Rate 96 ML/MIN 98 ML/MIN 100 ML/MIN Lactic Acid Level 3.3 mmol/L 1.7 mmol/L Test 10/03/17 09:21 Phosphorus Level 2.2 MG/DL Microbiology Date/Time Source Procedure Growth Status 09/30/17 13:45 Blood Other Aerobic Blood Culture - Preliminary NO GROWTH IN 2 DAYS Resulted 09/30/17 13:45 Blood Other Anaerobic Blood Culture - Preliminary NO GROWTH IN 2 DAYS Resulted 09/30/17 18:05 Sputum Expectorated Sputum Gram Stain - Final Complete 09/30/17 18:05 Sputum Expectorated Sputum Sputum Culture - Final HEAVY GROWTH NORMAL RESPIRATORY TYRON Complete 09/30/17 18:00 Urine Random Urine Legionella Antigen - Final PRESUMPTIVE NEGATIVE FOR LEGIONELLA P... Complete Imaging Last Impressions Chest X-Ray 09/30/17 0000 Signed Impressions: Service Date/Time: Saturday, September 30, 2017 18:27 - CONCLUSION: No significant change Bienvenido Bear MD Chest CT 09/29/17 1509 Signed Impressions: Service Date/Time: Friday, September 29, 2017 15:20 - CONCLUSION: Dense consolidation changes right lung lung with mild volume loss. New significant subcutaneous emphysema extending into the mediastinum, right chest wall left neck There is no evidence of superior vena cava occlusion I cannot tell the status of the left subclavian or axillary vein because of the [id number] placement. . Román Howard MD FACR Upper Extremity Ultrasound 09/29/17 0000 Signed Impressions: Service Date/Time: Friday, September 29, 2017 17:06 - CONCLUSION: 1. Extensive occlusive thrombus left neck and left arm. Db Alcantara MD Physical Exam GENERAL: This is a well-nourished, well-developed patient, in no apparent distress. SKIN: No rashes, ecchymoses or lesions. Cool and dry. HEAD: Atraumatic. Normocephalic. No temporal or scalp tenderness. EYES: Left eyelid swelling reduced. Pupils equal round and reactive. Extraocular motions intact. No scleral icterus. No injection or drainage. ENT: Nose without bleeding, purulent drainage or septal hematoma. Throat without erythema, tonsillar hypertrophy or exudate. Uvula midline. Airway patent. Face and Neck: Trachea midline. Supple, nontender, no meningeal signs. Facial swelling much reduced. LUE swelling reduced as well. CARDIOVASCULAR: Regular rate and rhythm without murmurs, gallops, or rubs. RESPIRATORY: AE decreased R > L. Creps R>L. GASTROINTESTINAL: Abdomen soft, non-tender, nondistended. Obese abdomen. MUSCULOSKELETAL: Extremities without clubbing, cyanosis, or edema. No joint tenderness, effusion, or edema noted. No calf tenderness. Negative Homans sign bilaterally. NEUROLOGICAL: Awake and alert. Cranial nerves II through XII intact. Motor and sensory grossly within normal limits. Five out of 5 muscle strength in all muscle groups. Normal speech. Port site deep non tender no erythema or induration. Psych cooperative, pleasant. Assessment & Plan Remarks Sepsis Recurrent pneumonia Possible Health care associated pneumonia (multiple recent hospitalizations) New left eyelid swelling and drooping of eyelid ? ptosis vs due to eyelid swelling. Blisters on left forearm and arm: unlikely antibiotic related. ? due to extensive LUE swelling. No other rash or oral lesions. 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 Abnormal LFTs: Sepsis, Vfend. Left neck and LUE extensive DVT Subcut emphysema and in mediastinum T cell lymphoma s/p chemo and radiation Immunocompromised Recs Continue Ceftriaxone IV Continue Azithro change to oral (for atypical PNA) Continue Voriconazole oral for aspergillosis empiric Heparin per primary team Follow sputum for legionella culture Follow cultures Follow clinically Follow LFTs Follow QT interval while on Vfend and Azithro. 12 lead EKG when symptomatic. Will dw about stopping Ceftriaxone and just keeping patient on Azithro and Vfend. Sarah Dwyer MD October 03, 2017 10:56
[2017-10-03] MEDS: LORazepam 0.5 MG TAB PO PRN ×2 (11:28→20:25)
[2017-10-03] MEDS: cefTRIAXone INJ 2,000 MG in SODIUM CHLORIDE 0.9% INJ 100 ML IV SCH (11:54)
[2017-10-03] MEDS: MORPHINE SULFATE 30 MG TAB PO PRN ×3 (11:54→22:56)
[2017-10-03] MEDS ORDERED: LIDOCAINE HCL 1% 10 ML VIAL INFIL ONE (13:45)
[2017-10-03] MEDS ORDERED: LORazepam 2 MG/ML VIAL IV PUSH ONE (13:45)
[2017-10-03] MEDS ORDERED: LIDOCAINE HCL 2% 20 ML VIAL INFIL ONE (13:45)
[2017-10-03] MEDS ORDERED: LIDOCAINE 2%/EPINEPHrine 1:100,000 30ML MDV INFIL ONE (14:45)
--- NOTE | 2017-10-03 15:39 | PD.CONS ---
cc: Glen Uribe MD HPI Service General Surgery Consult Requested By Doris HOANG Reason for Consult Port Removal Primary Care Physician Unknown History of Present Illness This is a 42 year old male with a past medical history of lymphoma who had a port placed by Dr. Uribe on May 29, 2017. He has had multiple hospitalizations due to pneumonia. He was recently admitted for increasing infiltrate. The patient was doing well until he had LEFT upper extremity DVT. He is s/p TPA by Invasive Radiology. He has been started on a Heparin drip. Blood cultures are negative. Oncology has requested the port be removed. Review of Systems Constitutional: DENIES: Fatigue, Change in appetite Endocrine: DENIES: Polydipsia, Polyuria, Polyphagia Eyes: DENIES: Diplopia, Eye inflammation Ears, nose, mouth, throat: DENIES: Hearing loss Respiratory: DENIES: Cough Cardiovascular: DENIES: Chest pain Gastrointestinal: DENIES: Abdominal pain, Nausea, Vomiting Genitourinary: DENIES: Urinary frequency Musculoskeletal: COMPLAINS OF: Joint Swelling (LEFT arm swelling ), DENIES: Joint pain Integumentary: DENIES: Abnormal pigmentation Hematologic/lymphatic: DENIES: Bruising Immunologic/allergic: DENIES: Eczema Neurologic: DENIES: Headache, Localized weakness Psychiatric: DENIES: Confusion, Mood changes, Depression Past Family Social History Past Medical History Lymphoma Pneumonia Past Surgical History Port placement Liver biopsy Reported Medications See chart; note the patient is s/p TPA and on Heparin drip Allergies: Coded Allergies: No Known Allergies (Unverified , 09/29/17) Active Ordered Medications Current Medications Medications (Trade) Dose Ordered Sig/Suzan Route Start Time Stop Time Status Last Admin (NS Flush) 2 ml UNSCH PRN IV FLUSH 09/29/17 17:15 (NS Flush) 2 ml BID IV FLUSH 09/29/17 21:00 10/03/17 09:08 (Zofran Inj) 4 mg Q6H PRN IV PUSH 09/29/17 17:15 (Albuterol Neb) 2.5 mg QID NEB NEB 09/29/17 20:00 10/03/17 12:07 (Albuterol Neb) 0.63 mg Q4HR NEB PRN NEB 09/29/17 17:30 (Ativan) 0.5 mg Q6HR PRN PO 09/29/17 17:30 10/03/17 11:28 (Msir) 30 mg Q6HR PRN PO 09/29/17 17:30 10/03/17 11:54 (Narcan Inj) 0.4 mg UNSCH PRN IV PUSH 09/29/17 17:30 (Naa-Colace) 1 tab BID PO 09/29/17 21:00 10/03/17 09:07 (Milk Of Magnesia Liq) 30 ml Q12H PRN PO 09/29/17 17:30 (Senokot) 17.2 mg Q12H PRN PO 09/29/17 17:30 (Dulcolax Supp) 10 mg DAILY PRN RECTAL 09/29/17 17:30 (Lactulose Liq) 30 ml DAILY PRN PO 09/29/17 17:30 (Pill Splitter) 1 ea UNSCH PRN OTHER 09/29/17 19:00 (Vitamin B1) 100 mg DAILY PO 10/01/17 09:00 10/03/17 09:07 (Vasotec Inj) 1.25 mg Q6H PRN IV PUSH 09/30/17 15:15 10/03/17 12:03 (SoluMEDROL INJ) 30 mg Q12H IV PUSH 09/30/17 20:00 10/03/17 09:07 (Tylenol) 650 mg Q4H PRN PO 09/30/17 21:15 10/03/17 09:15 ([facility] Nursing Information) Patient in critical care unit? Ass... Q361D .XX 09/30/17 23:45 (Chlorhexidine 2% Cloth) 3 pack DAILY@04 TOPICAL 10/01/17 04:00 10/05/17 04:01 10/03/17 03:49 (Chlorhexidine 2% Cloth) 3 pack UNSCH PRN TOPICAL 09/30/17 23:45 10/05/17 23:49 (D50w (Vial) Inj) 50 ml UNSCH PRN IV PUSH 10/01/17 10:00 (Glucagon Inj) 1 mg UNSCH PRN OTHER 10/01/17 10:00 (NovoLIN R SUPPLEMENTAL SCALE) 1 Q6H SQ 10/01/17 10:00 10/03/17 10:00 Alteplase, Recombinant 10 mg/ Sodium Chloride 500 ml @ 50 mls/hr TITRATE PRN IV 10/01/17 14:30 Heparin Sodium/ Dextrose 250 ml @ 18 mls/hr TITRATE PRN IV 10/02/17 12:00 Future Hold 10/03/17 00:15 Ceftriaxone Sodium 2000 mg/ Sodium Chloride 100 ml @ 200 mls/hr Q24H IV 10/02/17 12:00 10/03/17 11:54 (Vfend) 200 mg Q24H PO 10/03/17 09:00 10/03/17 09:06 (Zithromax) 500 mg DAILY PO 10/03/17 09:00 10/03/17 09:06 (Morphine Inj) 10 mg Q3H PRN IV PUSH 10/02/17 16:30 10/03/17 10:01 (Cardizem) 60 mg Q6HR PO 10/03/17 07:45 10/03/17 09:14 Potassium Chloride 100 ml @ 50 mls/hr Q2H PRN IV 10/03/17 07:45 Potassium Chloride 100 ml @ 50 mls/hr Q2H PRN IV 10/03/17 07:45 (K-Lyte Cl Eff) 50 meq UNSCH PRN PO 10/03/17 07:45 Potassium Chloride 100 ml @ 25 mls/hr UNSCH PRN IV 10/03/17 07:45 Potassium Chloride 100 ml @ 50 mls/hr Q2H PRN IV 10/03/17 07:45 Magnesium Sulfate 4 gm/Sodium Chloride 100 ml @ 50 mls/hr UNSCH PRN IV 10/03/17 07:45 (Mag-Ox) 800 mg UNSCH PRN PO 10/03/17 07:45 Magnesium Sulfate 2 gm/Sodium Chloride 100 ml @ 50 mls/hr UNSCH PRN IV 10/03/17 07:45 (K-Phos) 2,000 mg Q4H PRN PO 10/03/17 07:45 Sodium Phosphate 30 mmol/Sodium Chloride 250 ml @ 42 mls/hr UNSCH PRN IV 10/03/17 07:45 (K-Phos) 2,000 mg UNSCH PRN PO/TUBE 10/03/17 07:45 Potassium Phosphate 30 mmol/ Sodium Chloride 260 ml @ 42 mls/hr UNSCH PRN IV 10/03/17 07:45 Family History Noncontributory Social History Denies tobacco use and ETOH use Physical Exam Vital Signs Vital Signs Date Time Temp Pulse Resp B/P (MAP) Pulse Ox O2 Delivery O2 Flow Rate FiO2 10/03/17 15:00 108 10/03/17 11:59 188/97 (127) 10/03/17 11:07 98.1 112 24 164/110 (128) 93 10/03/17 11:00 111 10/03/17 10:06 104 22 141/94 (110) 95 10/03/17 10:00 104 10/03/17 09:00 107 20 160/99 (119) 95 10/03/17 08:00 98.3 98 19 147/94 (111) 97 10/03/17 08:00 98 10/03/17 07:54 98 Nasal Cannula 4.00 10/03/17 07:00 94 Nasal Cannula 4.00 10/03/17 07:00 99 19 164/108 (126) 94 10/03/17 06:38 16 10/03/17 06:00 103 10/03/17 04:00 96 10/03/17 04:00 98.2 96 16 138/80 (99) 96 10/03/17 02:00 79 10/03/17 00:00 98.8 91 18 133/80 (97) 97 10/03/17 00:00 91 10/02/17 22:00 114 10/02/17 20:00 98.3 109 16 143/87 (105) 94 10/02/17 20:00 109 10/02/17 19:50 98 Nasal Cannula 4.00 10/02/17 19:00 94 Nasal Cannula 4.00 10/02/17 18:00 98 10/02/17 16:00 99.0 107 20 139/87 (104) 97 10/02/17 16:00 107 Physical Exam GENERAL: Very pleasant 42 year old male resting in bed in no acute distress. SKIN: Warm and dry. LEFT chest port is accessed. HEAD: Atraumatic. Normocephalic. EYES: Pupils equal and round. No scleral icterus. No injection or drainage. ENT: No nasal bleeding or discharge. Mucous membranes pink and moist. NECK: Trachea midline. CARDIOVASCULAR: Regular rate and rhythm. RESPIRATORY: No accessory muscle use. Clear to auscultation. Breath sounds equal bilaterally. GASTROINTESTINAL: Abdomen soft, non-tender, nondistended. MUSCULOSKELETAL: LUE with edema and blisters. NEUROLOGICAL: Awake and alert. No obvious cranial nerve deficits. Motor grossly within normal limits. Five out of 5 muscle strength in the arms and legs. Normal speech. PSYCHIATRIC: Appropriate mood and affect; insight and judgment normal. Laboratory Laboratory Tests Test 10/02/17 18:25 10/03/17 03:30 10/03/17 09:21 Activated Partial Thromboplast Time 57.7 54.8 White Blood Count 6.6 Red Blood Count 3.70 Hemoglobin 10.5 Hematocrit 31.4 Mean Corpuscular Volume 85.0 Mean Corpuscular Hemoglobin 28.3 Mean Corpuscular Hemoglobin Concent 33.3 Red Cell Distribution Width 17.8 Platelet Count 141 Mean Platelet Volume 7.5 Neutrophils (%) (Auto) 92.0 Lymphocytes (%) (Auto) 1.9 Monocytes (%) (Auto) 6.0 Eosinophils (%) (Auto) 0.0 Basophils (%) (Auto) 0.1 Neutrophils # (Auto) 6.1 Lymphocytes # (Auto) 0.1 Monocytes # (Auto) 0.4 Eosinophils # (Auto) 0.0 Basophils # (Auto) 0.0 CBC Comment AUTO DIFF Differential Total Cells Counted 78 Neutrophils % (Manual) 83 Band Neutrophils % 8 Lymphocytes % 3 Monocytes % 1 Neutrophils # (Manual) 6.3 Metamyelocytes 4 Myelocytes 1 Nucleated Red Blood Cells 3 Differential Comment FINAL DIFF MANUAL Platelet Estimate NORMAL Platelet Morphology Comment NORMAL Blood Urea Nitrogen 17 Creatinine 0.84 Random Glucose 199 Total Protein 5.7 Albumin 2.8 Calcium Level 8.8 Phosphorus Level 2.3 2.2 Magnesium Level 2.3 Alkaline Phosphatase 72 Aspartate Amino Transf (AST/SGOT) 41 Alanine Aminotransferase (ALT/SGPT) 109 Total Bilirubin 0.2 Sodium Level 140 Potassium Level 4.0 Chloride Level 101 Carbon Dioxide Level 33.5 Anion Gap 6 Estimat Glomerular Filtration Rate 100 Hepatitis A IgM Antibody NONREACTIVE Hepatitis B Surface Antigen NONREACTIVE Hepatitis B Core IgM Antibody NONREACTIVE Hepatitis C IgG Antibody NONREACTIVE Date/Time Source Procedure Growth Status 09/30/17 13:45 Blood Other Aerobic Blood Culture - Preliminary NO GROWTH IN 3 DAYS Resulted 09/30/17 13:45 Blood Other Anaerobic Blood Culture - Preliminary NO GROWTH IN 3 DAYS Resulted 09/30/17 18:05 Sputum Expectorated Sputum Gram Stain - Final Complete 09/30/17 18:05 Sputum Expectorated Sputum Sputum Culture - Final HEAVY GROWTH NORMAL RESPIRATORY TYRON Complete 09/30/17 18:00 Urine Random Urine Legionella Antigen - Final PRESUMPTIVE NEGATIVE FOR LEGIONELLA P... Complete Result Diagram: 10/03/17 0330 10/03/17 0330 Assessment and Plan Assessment and Plan 42 year old male with LUE DVT; in need of port removal -Plan for port removal this afternoon -Hold Heparin drip today at 1PM -Obtain supplies -Obtain consents -Thank you for this consult PT SEEN WITH OPERATING ENGINEER APPRENTICE WHO DOCUMENTED OUR VISIT. DW DR JACKSON. SHE WOULD LIKE PORT REMOVED NIC. WILL HOLD HEPARIN AND REMOVE PORT THIS AFTERNOON. GLEN URIBE MD FACS Discussed Condition With Dr. Kareen HOANG Mr. and Mrs. Belkys Kim OPERATING ENGINEER APPRENTICE/Charge Rn OPERATING ENGINEER APPRENTICE October 03, 2017 15:39 Glen Uribe MD October 07, 2017 21:43
[2017-10-03 16:10] LABS: MYCOPLASMA PNEUMONIAE IGG Positive (Negative); MYCOPLASMA PNEUMONIAE IGM Negative (Negative)
[2017-10-03] MEDS ORDERED: LIDOCAINE 2%/EPINEPHrine 1:100,000 20ML MDV INFIL ONE (16:30)
--- NOTE | 2017-10-03 18:35 | MP ---
cc: Orlando Mathur MD DATE OF OPERATION: 10/03/2017 DATE OF PROCEDURE: 10/03/2017. PREOPERATIVE DIAGNOSES: 1. Extensive Deep vein thrombosis, left upper extremity, left jugular vein. 2. Infusaport, left subclavian vein. POSTOPERATIVE DIAGNOSES: 1. Extensive Deep vein thrombosis, left upper extremity, left jugular vein. 2. Infusaport, left subclavian PROCEDURE PERFORMED: Infusaport removal. SURGEON: Orlando Mathur MD ANESTHESIA: Local. COMPLICATIONS: None. INDICATIONS FOR PROCEDURE: Mr. Turner is a very pleasant 42-year-old gentleman who is undergoing chemotherapy. He developed a large DVT of his left upper extremity and left jugular vein, causing SVC syndrome. He is under the care of Dr. Aysha Leigh. Dr. Leigh requested that the port be removed, as the patient was getting thrombolytic therapy. Risks and benefits of port removal was discussed with him and his at the bedside and they were agreeable. PROCEDURE IN DETAIL: The patient was identified in his room. Timeout was taken. The left subclavian area was prepped and draped in standard surgical fashion. 1% lidocaine with epinephrine injected in the skin and subcutaneous tissue around the port. Transverse incision was made. Dissection was carried down in the subcutaneous tissue, identifying the Infusaport. Stay suture was cut and removed. The Infusaport was then freed up from the subcutaneous pocket. The port was then removed. Catheter was then also withdrawn from the vein under careful steady pressure. The port was then sent to microbiology for culture and analysis. The catheter tract was then oversewn with a 3-0 Vicryl suture. The wound was carefully inspected and no bleeding was noted. The wound was infused with additional local anesthetic and then closed in 2 layers using 3-0 and 4-0 Vicryl. Steri-Strips were applied. The patient tolerated the procedure well. MD ADA Oscar/ERICA , 05:22 PM , 06:33 PM
[2017-10-03] MEDS: SILVER SULFADIAZINE 1% CR 50 GM JAR TOPICAL SCH (20:24)
--- NOTE | 2017-10-03 20:57 | RADRPT ---
EXAM DATE/TIME: 10/03/2017 18:59 [place] COMPARISON: No previous studies available for comparison. INDICATIONS : Right arm swelling. MEDICAL HISTORY : Hypercholesterolemia. Hypertension. T-cell lymphoma. Asthma. Pneumonia. Coronary artery disease. SURGICAL HISTORY : Right shoulder surgery. Chemotherapy. Radiation therapy. Left upper chest port. Bone marrow biopsy. Bronchoscopy. ENCOUNTER: Subsequent ACUITY: 4 - 6 days PAIN SCORE: 2/10 LOCATION: Right arm. FINDINGS: There is spontaneous flow documented in the brachial, basilic, cephalic, axillary, and subclavian vei ns. The vessels are compressible and augmentation response is documented. No filling defects are se en. The flow is phasic with respiration. Direction of flow in the jugular vein is caudal. CONCLUSION: No DVT. Bienvenido Lockett MD on October 03, 2017 at 20:47 Board Certified Radiologist. This report was verified electronically.
[2017-10-04] VITALS (8 sets, daily range): BP systolic 136–159; BP diastolic 89–107; PULSE 85–118; RESP 20–24; TEMP 97.8–98.8; O2SAT 91–96
[2017-10-04] MEDS: MORPHINE SULFATE 4 MG/ML INJ IV PUSH PRN ×6 (00:36→22:37)
[2017-10-04] MEDS: INSULIN NovoLIN REGULAR SUPPLEMENTAL SCALE SQ SCH ×4 (03:31→22:30)
[2017-10-04] MEDS: CHLORHEXIDINE GLUCONATE 2 % 1 PACK (2 CLOTHS)(taper/protocol) TOPICAL SCH (04:00)
[2017-10-04] MEDS: DILTIAZEM HCL 60 MG TAB PO SCH ×4 (05:08→23:49)
[2017-10-04] MEDS: MORPHINE SULFATE 30 MG TAB PO PRN ×3 (05:09→20:29)
[2017-10-04 07:23] LABS: AUTOMATED NEUTROPHIL # 6.6 TH/MM3 (1.8-7.7); BASOPHIL % 0.1 % (0.0-2.0); HEMATOCRIT 32.6 % (39.0-51.0); HEMOGLOBIN 10.9 GM/DL (13.0-17.0); LYMPH % 2.1 % (9.0-44.0); LYMPHOCYTE # 0.1 TH/MM3 (1.0-4.8); MEAN CELL VOLUME 85.9 FL (80.0-100.0); MEAN CORPUSCULAR HEMOGLOBIN 28.6 PG (27.0-34.0); MEAN CORPUSCULAR HGB CONC 33.3 % (32.0-36.0); MONOCYTE # 0.5 TH/MM3 (0-0.9); NEUT % 90.8 % (16.0-70.0); PLATELET COUNT 148 TH/MM3 (150-450); RED CELL DISTRIBUTION WIDTH 18.3 % (11.6-17.2); WHITE BLOOD COUNT 7.2 TH/MM3 (4.0-11.0)
[2017-10-04 07:50] LABS: ALBUMIN 3.1 GM/DL (3.4-5.0); ALT (GPT) 108 U/L (12-78); AST (GOT) 30 U/L (15-37); BICARBONATE 30.9 MEQ/L (21.0-32.0); BLOOD UREA NITROGEN 15 MG/DL (7-18); CALCIUM 8.9 MG/DL (8.5-10.1); CHLORIDE 99 MEQ/L (98-107); CREATININE 0.82 MG/DL (0.60-1.30); GLOMERULAR FILTRATION RATE 103 ML/MIN (>89); GLUCOSE,RANDOM 170 MG/DL (74-106); MAGNESIUM 2.3 MG/DL (1.5-2.5); PHOSPHORUS 3.1 MG/DL (2.5-4.9); SODIUM (NA) 140 MEQ/L (136-145)
[2017-10-04 07:53] LABS: ALKALINE PHOSPHATASE 72 U/L (45-117); TOTAL BILIRUBIN ADULT 0.3 MG/DL (0.2-1.0); TOTAL PROTEIN 6.3 GM/DL (6.4-8.2)
[2017-10-04 08:33] LABS: BANDS 3 % (0-6); CORRECTED NUCLEATED RBC 2 /100 WBC (0-0); LYMPHOCYTES 9 % (9-44); MONOCYTES 4 % (0-8); MYELOCYTES 3 % (0-0); NEUTROPHIL # MANUAL DIFF 6.3 TH/MM3 (1.8-7.7); NUCLEATED RED BLOOD CELL 2 (0-0); POLYS (SEG NEUTROPHILS) 81 % (16-70); TEARDROP RBCS 1+ (NORMAL)
[2017-10-04] MEDS: THIAMINE HCL 100 MG TAB PO SCH (09:32)
[2017-10-04] MEDS: DOCUSATE SODIUM 50 MG/SENNA 8.6 MG TAB PO SCH ×2 (09:32→20:31)
[2017-10-04] MEDS: AZITHROMYCIN 250 MG TAB PO SCH (09:33)
[2017-10-04] MEDS: VORICONAZOLE 200 MG TAB PO SCH (09:33)
[2017-10-04] MEDS: methylPREDNISolone SOD SUCC 40 MG/1 ML VIAL IV PUSH SCH ×2 (09:33→20:29)
[2017-10-04] MEDS: SILVER SULFADIAZINE 1% CR 50 GM JAR TOPICAL SCH ×2 (09:34→20:32)
[2017-10-04] MEDS: BISACODYL 10 MG SUPP RECTAL PRN (09:36)
[2017-10-04] MEDS: SODIUM CHLORIDE 0.9% FLUSH 10 ML FLUSH IV FLUSH SCH ×2 (09:52→20:30)
--- NOTE | 2017-10-04 10:32 | HHI.PR ---
Subjective Subjective Notes Resting in bed No issues overnight Pain controlled at bedside Objective Vitals/I&O Vital Signs Date Time Temp Pulse Resp B/P (MAP) Pulse Ox O2 Delivery O2 Flow Rate FiO2 10/04/17 08:20 97.8 106 22 141/107 (118) 94 10/03/17 20:00 Nasal Cannula 4.00 Labs Laboratory Tests Test 10/04/17 06:54 White Blood Count 7.2 Red Blood Count 3.80 Hemoglobin 10.9 Hematocrit 32.6 Mean Corpuscular Volume 85.9 Mean Corpuscular Hemoglobin 28.6 Mean Corpuscular Hemoglobin Concent 33.3 Red Cell Distribution Width 18.3 Platelet Count 148 Mean Platelet Volume 7.0 Neutrophils (%) (Auto) 90.8 Lymphocytes (%) (Auto) 2.1 Monocytes (%) (Auto) 7.0 Eosinophils (%) (Auto) 0.0 Basophils (%) (Auto) 0.1 Neutrophils # (Auto) 6.6 Lymphocytes # (Auto) 0.1 Monocytes # (Auto) 0.5 Eosinophils # (Auto) 0.0 Basophils # (Auto) 0.0 CBC Comment AUTO DIFF Differential Total Cells Counted 100 Neutrophils % (Manual) 81 Band Neutrophils % 3 Lymphocytes % 9 Monocytes % 4 Neutrophils # (Manual) 6.3 Myelocytes 3 Nucleated Red Blood Cells 2 Differential Comment FINAL DIFF MANUAL Platelet Estimate NORMAL Platelet Morphology Comment NORMAL Tear Drop Cells 1+ Blood Urea Nitrogen 15 Creatinine 0.82 Random Glucose 170 Total Protein 6.3 Albumin 3.1 Calcium Level 8.9 Phosphorus Level 3.1 Magnesium Level 2.3 Alkaline Phosphatase 72 Aspartate Amino Transf (AST/SGOT) 30 Alanine Aminotransferase (ALT/SGPT) 108 Total Bilirubin 0.3 Sodium Level 140 Potassium Level 4.1 Chloride Level 99 Carbon Dioxide Level 30.9 Anion Gap 10 Estimat Glomerular Filtration Rate 103 Date/Time Source Procedure Growth Status 09/30/17 13:45 Blood Other Aerobic Blood Culture - Preliminary NO GROWTH IN 3 DAYS Resulted 09/30/17 13:45 Blood Other Anaerobic Blood Culture - Preliminary NO GROWTH IN 3 DAYS Resulted 09/30/17 18:05 Sputum Expectorated Sputum Gram Stain - Final Complete 09/30/17 18:05 Sputum Expectorated Sputum Sputum Culture - Final HEAVY GROWTH NORMAL RESPIRATORY TYRON Complete 09/30/17 18:00 Urine Random Urine Legionella Antigen - Final PRESUMPTIVE NEGATIVE FOR LEGIONELLA P... Complete 10/03/17 17:00 Catheter Tip Subclavian Wound Culture Pending Received Cardiovascular: Regular Lungs: Clear Abdomen: Non-distended, Non-tender Narrative Exam LUE ---blistering improved from yesterday; still edematous LEFT chest port s/p removal with dressing in place; no bruising noted A/P Assessment and Plan 42 year old male with lymphoma; s/p chest removal yesterday -Doing well -Dressing in place -Okay to change dressing when soiled; remove Steri strips in 10-14 days -Heparin resumed -General Surgery will sign off; please call with any questions Belkys Neves/First Divya EASTON October 04, 2017 10:32
[2017-10-04] MEDS: HEPARIN-D5W 25,000 U/250 ML 250 ML IV PRN (10:35)
--- NOTE | 2017-10-04 10:39 | PD.ONC.PN ---
Subjective Subjective Remarks Afebrile overnight. Patient states left arm feeling improved today. states he has more range of motion and mobility. voice is improving too, but notices there is still some nasally component to it. still feeling short of breath. Objective Data Date Time Temp Pulse Resp B/P (MAP) Pulse Ox O2 Delivery O2 Flow Rate FiO2 10/04/17 08:20 97.8 106 22 141/107 (118) 94 10/04/17 04:00 87 10/04/17 04:00 98.5 109 22 136/93 (107) 91 10/04/17 00:00 104 10/04/17 00:00 98.8 118 24 136/98 (111) 92 10/03/17 20:00 97 Nasal Cannula 4.00 10/03/17 20:00 97 10/03/17 20:00 Nasal Cannula 4.00 10/03/17 20:00 98.0 100 24 163/94 (117) 97 10/03/17 16:00 97.6 105 18 159/91 (113) 95 10/03/17 15:00 108 10/03/17 11:59 188/97 (127) 10/03/17 11:07 98.1 112 24 164/110 (128) 93 10/03/17 11:00 111 Result Diagram: 10/04/17 0654 10/04/17 0654 Laboratory Results Laboratory Tests Test 10/04/17 06:54 White Blood Count 7.2 TH/MM3 Red Blood Count 3.80 MIL/MM3 Hemoglobin 10.9 GM/DL Hematocrit 32.6 % Mean Corpuscular Volume 85.9 FL Mean Corpuscular Hemoglobin 28.6 PG Mean Corpuscular Hemoglobin Concent 33.3 % Red Cell Distribution Width 18.3 % Platelet Count 148 TH/MM3 Mean Platelet Volume 7.0 FL Neutrophils (%) (Auto) 90.8 % Lymphocytes (%) (Auto) 2.1 % Monocytes (%) (Auto) 7.0 % Eosinophils (%) (Auto) 0.0 % Basophils (%) (Auto) 0.1 % Neutrophils # (Auto) 6.6 TH/MM3 Lymphocytes # (Auto) 0.1 TH/MM3 Monocytes # (Auto) 0.5 TH/MM3 Eosinophils # (Auto) 0.0 TH/MM3 Basophils # (Auto) 0.0 TH/MM3 CBC Comment AUTO DIFF Differential Total Cells Counted 100 Neutrophils % (Manual) 81 % Band Neutrophils % 3 % Lymphocytes % 9 % Monocytes % 4 % Neutrophils # (Manual) 6.3 TH/MM3 Myelocytes 3 % Nucleated Red Blood Cells 2 /100 WBC Differential Comment FINAL DIFF MANUAL Platelet Estimate NORMAL Platelet Morphology Comment NORMAL Tear Drop Cells 1+ Blood Urea Nitrogen 15 MG/DL Creatinine 0.82 MG/DL Random Glucose 170 MG/DL Total Protein 6.3 GM/DL Albumin 3.1 GM/DL Calcium Level 8.9 MG/DL Phosphorus Level 3.1 MG/DL Magnesium Level 2.3 MG/DL Alkaline Phosphatase 72 U/L Aspartate Amino Transf (AST/SGOT) 30 U/L Alanine Aminotransferase (ALT/SGPT) 108 U/L Total Bilirubin 0.3 MG/DL Sodium Level 140 MEQ/L Potassium Level 4.1 MEQ/L Chloride Level 99 MEQ/L Carbon Dioxide Level 30.9 MEQ/L Anion Gap 10 MEQ/L Estimat Glomerular Filtration Rate 103 ML/MIN Culture Results Microbiology Date/Time Source Procedure Growth Status 10/03/17 17:00 Catheter Tip Subclavian Wound Culture Pending Received Administered Medications Medications (Trade) Dose Ordered Sig/Suzan Route PRN Reason Start Time Stop Time Status Last Admin Dose Admin Sodium Chloride (NS Flush) 2 ml BID IV FLUSH 09/29/17 21:00 10/04/17 09:52 Lorazepam (Ativan) 0.5 mg Q6HR PRN PO anxiety 09/29/17 17:30 10/03/17 20:25 Morphine Sulfate (Msir) 30 mg Q6HR PRN PO PAIN1-10 09/29/17 17:30 10/04/17 05:09 Senna/Docusate Sodium (Naa-Colace) 1 tab BID PO 09/29/17 21:00 10/04/17 09:32 Bisacodyl (Dulcolax Supp) 10 mg DAILY PRN RECTAL SEVERE CONSITIPATION 09/29/17 17:30 10/04/17 09:36 Thiamine HCl (Vitamin B1) 100 mg DAILY PO 10/01/17 09:00 10/04/17 09:32 Enalaprilat (Vasotec Inj) 1.25 mg Q6H PRN IV PUSH SBP>160, DBP>90 09/30/17 15:15 10/03/17 12:03 Methylprednisolone Sodium Succinate (SoluMEDROL INJ) 30 mg Q12H IV PUSH 09/30/17 20:00 10/04/17 09:33 Acetaminophen (Tylenol) 650 mg Q4H PRN PO TEMP > 100.4 / HEADACHE/BONE P 09/30/17 21:15 10/03/17 09:15 Chlorhexidine Gluconate (Chlorhexidine 2% Cloth) 3 pack DAILY@04 TOPICAL 10/01/17 04:00 10/05/17 04:01 10/03/17 03:49 Insulin Human Regular (NovoLIN R SUPPLEMENTAL SCALE) 1 Q6H SQ 10/01/17 10:00 10/04/17 09:51 Heparin Sodium/ Dextrose 250 ml @ 18 mls/hr TITRATE PRN IV Coagulation Management 10/02/17 12:00 Future hold 10/03/17 00:15 Ceftriaxone Sodium 2000 mg/ Sodium Chloride 100 ml @ 200 mls/hr Q24H IV 10/02/17 12:00 10/03/17 11:54 Voriconazole (Vfend) 200 mg Q24H PO 10/03/17 09:00 10/04/17 09:33 Azithromycin (Zithromax) 500 mg DAILY PO 10/03/17 09:00 10/04/17 09:33 Morphine Sulfate (Morphine Inj) 10 mg Q3H PRN IV PUSH breakthrough 10/02/17 16:30 10/04/17 09:29 Diltiazem HCl (Cardizem) 60 mg Q6HR PO 10/03/17 07:45 10/04/17 05:08 Silver Sulfadiazine (Silvadene 1% Cream (50 Gm)) 1 applic Q12HR TOPICAL 10/03/17 21:00 10/04/17 09:34 Objective Remarks GENERAL: Pleasant male, sitting up in bed in NAD. On 4L O2 via NC SKIN: Warm and dry. HEAD: Normocephalic. EYES: No injection or drainage. NECK: trachea midline. CARDIOVASCULAR: Regular rate and rhythm RESPIRATORY: diminished breath sounds, right base, occasional rhonchi. On 4L O2 via NC GASTROINTESTINAL: Abdomen soft, non-tender, nondistended. EXTREMITIES: No cyanosis. left arm edema much improved today. right groin with extensive ecchymoses. tissue is soft, no firmness, 0.25cm incision site along inguinal crease is without bleeding. NEUROLOGICAL: awake, alert. normal speech. Assessment/Plan Problem List: (1) DVT of upper extremity (deep vein thrombosis) ICD Codes: I82.629 - Acute embolism and thrombosis of deep veins of unspecified upper extremity Status: Acute Plan: --on heparin gtt --received tpa on 10/01 -- CT chest shows no SVC syndrome. (2) T-cell lymphoma ICD Codes: C85.90 - Non-Hodgkin lymphoma, unspecified, unspecified site Status: Chronic Plan: -- Status post [facility] chemotherapy in clinic. --In remission --Recent biopsy of lung showed no lymphoma involvement (3) Subcutaneous crepitus ICD Codes: R23.9 - Unspecified skin changes Status: Acute (4) Lung consolidation ICD Codes: J18.1 - Lobar pneumonia, unspecified organism Status: Acute Plan: --on Zithromax + Vfend+ Rocephin Assessment 42-year-old male with T-cell lymphoma admitted with new left upper extremity extensive DVT Plan 1. continue heparin for next 24 hours. plan to start Eliquis upon discharge home. 2. continue antibiotics per infectious disease 3. monitor blood cultures. Attending Statement The exam, history, and the medical decision-making described in the above note were completed with the assistance of the mid-level provider. I reviewed and agree with the findings presented. I attest that I had a [id number] encounter with the patient on the same day, and personally performed and documented my assessment and findings in the medical record. Pt seen and examined in AM. R groin ecchymosis, small 1cm hematoma at site of puncture, no acute bleeding. L port removal site, no bleeding. L arm softer, noted multiple bullous lesions , clear, pending wound care. Cont UFH, transition to LMWH tomorrow - Lovenox 80mg SQ Q12H. Monitor for bleeding. Abx per ID. Continue support. Consider consulting Reymundo. Pt deconditioned but young would benefit from rehab. Need to optimize performance status prior to BMT. Problem Qualifiers (1) DVT of upper extremity (deep vein thrombosis): Qualified Codes: I82.622 - Acute embolism and thrombosis of deep veins of left upper extremity Doris Liu October 04, 2017 10:39 Aysha Leigh MD October 04, 2017 17:53
[2017-10-04] MEDS ORDERED: PHARMACY ORDERED LAB ONE (10:45)
--- NOTE | 2017-10-04 12:16 | PD.WCN.NOT ---
Wound Consult Description: Consult for WOUND MANAGEMENT of LEFT FOREARM per Noe Communicated with: NATALYA Liu Dr Recommendation: Gently cleanse left arm daily with NS and pat dry. Apply single layer Xeroform. Cover with 4x4's. Secure with rolled gauze and tape. Additional Information: Patient seen on [facility] for evaluation of roofed and unroofed bullae to left arm. Many localized roofed and unroofed bullae noted to left arm from mid medial biceps to wrist. Partial thickness skin loss was noted to unroofed bullae. All were cleansed with NS and gauze and pat dry. Single layer Xeroform was applied to all roofed and unroofed bullae after skin prepping with Cavilon spray. 4x4's were used to cover the Xeroform and rolled gauze used to secure. Maile Saenz [facility] October 04, 2017 12:16
[2017-10-04] MEDS: cefTRIAXone INJ 2,000 MG in SODIUM CHLORIDE 0.9% INJ 100 ML IV SCH (13:03)
[2017-10-04] MEDS: RESP: ALBUTEROL 0.63 MG/3 ML NEB (PRN) NEB (14:02)
--- NOTE | 2017-10-04 14:59 | HHI.FF ---
Face to Face Verification Diagnosis: (1) T-cell lymphoma (2) DVT of upper extremity (deep vein thrombosis) (3) Lung consolidation Physical Therapy Order: Evaluate and Treat, Improve ambulation, Strength and gait training Home Health Nursing Order: Medical education Signs/symptoms of disease process Nursing assessment with vital signs I have seen patient Ronnell Turner on 10/04/17. My clinical findings support the need for the requested home health care services because: Ltd mobility - disease progression I certify that my clinical findings support that this patient is homebound because: Unsteady gait/balance Doris Liu October 04, 2017 14:59
--- NOTE | 2017-10-04 18:55 | HHI.PR ---
Subjective Remarks 42-year-old male with a history of hypertension and T-cell lymphoma status post chemo. He was recently discharged over 10 days ago after being treated for right lung pneumonia presumably fungal etiology on Vfend status post bronchoscopy and VATS. He has been compliant with therapy and has been doing well until this morning when he noticed left face and neck swelling which progressed involving the left chest and left upper extremity with crepitation. CT of the chest does not show evidence of SVC however shows extensive occlusive thrombus left neck and left arm. He was also complaining of productive cough yellow phlegm and shortness of breath with wheezing. Denies fever or chills. In the ED he has tachycardia, tachypnea and leukocytosis with right lung consolidation on chest CT and has been started on IV vancomycin, IV Zithromax and IV cefepime for hospital-acquired pneumonia. Blood cultures were obtained. He was admitted to hospitalist service however his clinical picture deteriorated, including elevated lactic acid and the patient was transferred to ICU for higher level of care. 10/01 Patient is on 4L oxygen Lactic acid is trending down 3.4 from 6.3. Afebrile. 10/02 Patient s/p venogram with thrombolysis yesterday showed extensive thrombus. Patient was off TPA at 1:30 this morning for low fibrinogen (66-67). Remains on Heparin drip. Awake and alert. 10/03 Patient s/p Angioplasty (left brachiocephalic and left IJ), Venogram yesterday showed stenosis in central left brachiocephalic SUPPLY ASSISTANT to 10 mm. Mild stenosis central left IJ SUPPLY ASSISTANT to 7mm. Minimal residual thrombus in left IJ. Deep venous system patent. Awake and alert. On Heparin drip. 10/04: Still having tenderness in the arm and tightness in the chest however in general feeling slightly better than yesterday, ID and pulmonary on board patient was found to have extension DVT in the left upper extremity, on heparin drip transition to Lovenox tomorrow per hematology recommendation Objective Vitals Vital Signs Date Time Temp Pulse Resp B/P (MAP) Pulse Ox O2 Delivery O2 Flow Rate FiO2 10/04/17 16:59 96 Nasal Cannula 4.00 10/04/17 14:02 96 Nasal Cannula 4.00 10/04/17 09:19 Nasal Cannula 2.00 10/04/17 08:20 97.8 106 22 141/107 (118) 94 10/04/17 04:00 87 10/04/17 04:00 98.5 109 22 136/93 (107) 91 10/04/17 00:00 104 10/04/17 00:00 98.8 118 24 136/98 (111) 92 10/03/17 20:00 97 Nasal Cannula 4.00 10/03/17 20:00 97 10/03/17 20:00 Nasal Cannula 4.00 10/03/17 20:00 98.0 100 24 163/94 (117) 97 I/O 10/03/17 10/03/17 10/03/17 10/04/17 10/04/17 10/04/17 07:00 15:00 23:00 07:00 15:00 23:00 Intake Total 240 ml 240 ml 1000 ml 480 ml Output Total 1200 ml 250 ml 750 ml 600 ml Balance -960 ml -10 ml 250 ml -120 ml Intake Oral 240 ml 240 ml 1000 ml 480 ml Output Urine Total 1200 ml 250 ml 750 ml 600 ml # Bowel Movements 0 Result Diagram: 10/04/17 0654 10/04/17 0654 A/P Problem List: (1) T-cell lymphoma ICD Code: C85.90 - Non-Hodgkin lymphoma, unspecified, unspecified site Status: Chronic (2) Sepsis ICD Code: A41.9 - Sepsis, unspecified organism Status: Resolved Assessment and Plan 1)Resp Insuff 2)Lactic acidemia- resolved 3)Extensive DVT LUE, left neck 4)Pneumonia/empyema s/p recent right VTAS 5)T-cell lymphoma s/p XTR and Chemo 6)Hx Bronchial asthma 7) Hypertension 8)Sub Q emphysema 9)Elevated LFT Plan Awake and alert MRV brain negative for cavernous sinus thrombosis MRI brain unremarkable Continue with oxygen keep sats >92% Bronchodilators, solumederol 30mg Q12 CT chest: Dense consolidation changes right lung lung with mild volume loss. subcutaneous emphysema extending into the mediastinum, right chest wall left neck There is no evidence of SVC occlusion I cannot tell the status of the left subclavian or axillary vein because of the Inlrhh-b-Ayrj placement per radiology. CXR 10/01 showed clear left lung, opacification right hemithorax ( unchanged) CTS is following- Dr. Frey Monitor HR and BP keep MAP>65mmHg Lactic acid resolved 1.[address] Place on Cardizem 60mg Q6 for BP control Monitor renal function, electrolytes replacement per protocol. Will need Phos replacement today s/p Lasix 40mg x1 yesterday with good response in UOP. On PO diet Monitor LFT's, US liver: Echogenic liver with mildly prominent spleen. Check Hepatitis profile. Continue with abx per ID (Cefepime, Azithromycin, Voriconazole) sputum cx-normal resp edgard, Legionella urinary Ag negative, Legionella culture pending. Heme: Monitor CBC, coags- on Heparin drip, Onc is following- Dr. Leigh s/p venogram with thrombolysis 10/01 showed extensive thrombus. 10/02: s/p Angioplasty (left brachiocephalic and left IJ), Venogram yesterday showed stenosis in central left brachiocephalic SUPPLY ASSISTANT to 10 mm. Mild stenosis central left IJ SUPPLY ASSISTANT to 7mm. Minimal residual thrombus in left IJ. Deep venous system patent Off TPA , On Heparin drip- monitor PTT SSI for glycemic control DVT GI prophylaxis -Bayron's and SCDs -Heparin drip -Pepcid Problem Qualifiers (1) Sepsis: Qualified Codes: A41.9 - Sepsis, unspecified organism Rani Blunt MD October 04, 2017 18:55
--- NOTE | 2017-10-04 19:27 | PD.CONS ---
History of Present Illness Service Plastic surgery Consult Requested By Primary team Reason for Consult Left upper extremity vesicles Primary Care Physician Unknown Diagnoses: (1) Arm wound History of Present Illness 43M with a history of hypertension and T-cell lymphoma status post chemo. He was recently discharged over 10 days ago after being treated for right lung pneumonia presumably fungal etiology on Vfend status post bronchoscopy and VATS. He has been compliant with therapy and has been doing well until this morning when he noticed left face and neck swelling which progressed involving the left chest and left upper extremity. On further workup patient was found to have large thrombus encompassing the left brachiocephalic subclavian and axillary internal jugular veins. In the setting of patient's indwelling left subclavian port, it was deemed to be a port related thrombus causing venous insufficiency to the left upper extremity. Per patient report his left upper extremity was very swollen and painful. He reports that the vesicles developed several days ago when the arm was more swollen. He is now status post TPA thrombolysis with improvement. The patient reports his left upper extremity significantly smaller, almost normal now. He reports his pain is steadily improving. He has been dressing the wounds with Xeroform. Review of Systems Except as stated in HPI: all other systems reviewed are Neg Past Family Social History Past Medical History As previously mentioned Past Surgical History As previously mentioned, shoulder surgery and port placement left upper chest Reported Medications Reported Meds & Active Scripts Active Ativan (Lorazepam) 0.5 Mg Tab 0.5 Mg PO Q6HR PRN Prednisone 20 Mg Tab 20 Mg PO DAILY 14 Days Prednisone 20 Mg Tab 40 Mg PO DAILY 7 Days Take 40 mg (2 tablets) daily for 5 days Vfend (Voriconazole) 200 Mg Tab 200 Mg PO Q12H Continue for 14 days and then will be switched to prophylaxis dosage by oncologist. Lactulose Liq (Lactulose) 10 Gm/15 Ml Soln 30 Ml PO Q6H PRN Methadone (Methadone HCl) 10 Mg Tab 2.5 Mg PO DAILY Morphine IR (Morphine Sulfate) 30 Mg Tab 30 Mg PO Q6HR PRN 10 Days Allergies: Coded Allergies: No Known Allergies (Unverified , 09/29/17) Family History Coronary artery disease Social History Does not smoke or drink Past Family Social History Allergies: Coded Allergies: No Known Allergies (Unverified , 09/29/17) Physical Exam Vital Signs Vital Signs Date Time Temp Pulse Resp B/P (MAP) Pulse Ox O2 Delivery O2 Flow Rate FiO2 10/04/17 16:59 96 Nasal Cannula 4.00 10/04/17 14:02 96 Nasal Cannula 4.00 10/04/17 09:19 Nasal Cannula 2.00 10/04/17 08:20 97.8 106 22 141/107 (118) 94 10/04/17 04:00 87 10/04/17 04:00 98.5 109 22 136/93 (107) 91 10/04/17 00:00 104 10/04/17 00:00 98.8 118 24 136/98 (111) 92 10/03/17 20:00 97 Nasal Cannula 4.00 10/03/17 20:00 97 10/03/17 20:00 Nasal Cannula 4.00 10/03/17 20:00 98.0 100 24 163/94 (117) 97 Physical Exam No apparent anxiety alert and oriented 3 moist mucous membranes PERRLA skin without rash respirations nonlabored gait within normal limits digits warm well perfused Left upper extremity with mild edema diffusely Close to 20 vesicles on the patient's radial or upper arm and forearm No signs cellulitis Most vessels have been unroofed Mildly tender Good color cap refill Laboratory Laboratory Tests Test 10/04/17 06:54 10/04/17 14:34 White Blood Count 7.2 Red Blood Count 3.80 Hemoglobin 10.9 Hematocrit 32.6 Mean Corpuscular Volume 85.9 Mean Corpuscular Hemoglobin 28.6 Mean Corpuscular Hemoglobin Concent 33.3 Red Cell Distribution Width 18.3 Platelet Count 148 Mean Platelet Volume 7.0 Neutrophils (%) (Auto) 90.8 Lymphocytes (%) (Auto) 2.1 Monocytes (%) (Auto) 7.0 Eosinophils (%) (Auto) 0.0 Basophils (%) (Auto) 0.1 Neutrophils # (Auto) 6.6 Lymphocytes # (Auto) 0.1 Monocytes # (Auto) 0.5 Eosinophils # (Auto) 0.0 Basophils # (Auto) 0.0 CBC Comment AUTO DIFF Differential Total Cells Counted 100 Neutrophils % (Manual) 81 Band Neutrophils % 3 Lymphocytes % 9 Monocytes % 4 Neutrophils # (Manual) 6.3 Myelocytes 3 Nucleated Red Blood Cells 2 Differential Comment FINAL DIFF MANUAL Platelet Estimate NORMAL Platelet Morphology Comment NORMAL Tear Drop Cells 1+ Blood Urea Nitrogen 15 Creatinine 0.82 Random Glucose 170 Total Protein 6.3 Albumin 3.1 Calcium Level 8.9 Phosphorus Level 3.1 Magnesium Level 2.3 Alkaline Phosphatase 72 Aspartate Amino Transf (AST/SGOT) 30 Alanine Aminotransferase (ALT/SGPT) 108 Total Bilirubin 0.3 Sodium Level 140 Potassium Level 4.1 Chloride Level 99 Carbon Dioxide Level 30.9 Anion Gap 10 Estimat Glomerular Filtration Rate 103 Activated Partial Thromboplast Time 52.7 Date/Time Source Procedure Growth Status 09/30/17 13:45 Blood Other Aerobic Blood Culture - Preliminary NO GROWTH IN 4 DAYS Resulted 09/30/17 13:45 Blood Other Anaerobic Blood Culture - Preliminary NO GROWTH IN 4 DAYS Resulted 09/30/17 18:05 Sputum Expectorated Sputum Gram Stain - Final Complete 09/30/17 18:05 Sputum Expectorated Sputum Sputum Culture - Final HEAVY GROWTH NORMAL RESPIRATORY TYRON Complete 09/30/17 18:00 Urine Random Urine Legionella Antigen - Final PRESUMPTIVE NEGATIVE FOR LEGIONELLA P... Complete 10/03/17 17:00 Catheter Tip Subclavian Wound Culture - Preliminary NO GROWTH IN 24 HOURS. Resulted Result Diagram: 10/04/17 0654 10/04/17 0654 Assessment and Plan Problem List: (1) Arm wound ICD Codes: S41.109A - Unspecified open wound of unspecified upper arm, initial encounter Assessment and Plan 42-year-old male with left upper arm vesicles in setting of venous insufficiency and severe edema, likely due to epidermal lysis related to his edema, which appear to be resolving Appreciate excellent recommendations by wound care nursing Recommend considering adding mupirocin ointment to vesicles before covering with Xeroform gauze followed by Diogo changed daily in order to prevent desiccation Please call with questions Reza Simeon MD October 04, 2017 19:26
[2017-10-04] MEDS: LORazepam 0.5 MG TAB PO PRN (20:30)
[2017-10-05] VITALS (8 sets, daily range): BP systolic 118–159; BP diastolic 64–97; PULSE 58–125; RESP 16–24; TEMP 97.3–98.7; O2SAT 90–96
[2017-10-05] MEDS: HEPARIN-D5W 25,000 U/250 ML 250 ML IV PRN (01:57)
[2017-10-05] MEDS: MORPHINE SULFATE 4 MG/ML INJ IV PUSH PRN ×6 (02:02→23:26)
[2017-10-05] MEDS: CHLORHEXIDINE GLUCONATE 2 % 1 PACK (2 CLOTHS)(taper/protocol) TOPICAL SCH (04:00)
[2017-10-05] MEDS: INSULIN NovoLIN REGULAR SUPPLEMENTAL SCALE SQ SCH ×4 (04:22→20:39)
[2017-10-05] MEDS: DILTIAZEM HCL 60 MG TAB PO SCH ×4 (06:00→23:23)
[2017-10-05] MEDS: LORazepam 0.5 MG TAB PO PRN ×2 (06:29→19:42)
[2017-10-05] MEDS: MORPHINE SULFATE 30 MG TAB PO PRN ×3 (06:29→18:49)
[2017-10-05] MEDS: MUPIROCIN 2% OINT 22 GM TUBE TOPICAL SCH (06:30)
[2017-10-05 06:53] LABS: AUTOMATED NEUTROPHIL # 7.2 TH/MM3 (1.8-7.7); EOSINOPHIL % 0.1 % (0.0-4.0); HEMATOCRIT 32.7 % (39.0-51.0); HEMOGLOBIN 10.9 GM/DL (13.0-17.0); LYMPHOCYTE # 0.2 TH/MM3 (1.0-4.8); MEAN CELL VOLUME 85.2 FL (80.0-100.0); MEAN CORPUSCULAR HEMOGLOBIN 28.5 PG (27.0-34.0); MEAN CORPUSCULAR HGB CONC 33.5 % (32.0-36.0); MEAN PLATELET VOLUME 7.4 FL (7.0-11.0); MONO % 6.6 % (0.0-8.0); MONOCYTE # 0.5 TH/MM3 (0-0.9); NEUT % 91.3 % (16.0-70.0); PLATELET COUNT 143 TH/MM3 (150-450); RED BLOOD COUNT 3.84 MIL/MM3 (4.50-5.90); RED CELL DISTRIBUTION WIDTH 18.5 % (11.6-17.2); WHITE BLOOD COUNT 7.9 TH/MM3 (4.0-11.0)
--- NOTE | 2017-10-05 08:50 | PD.ONC.PN ---
Subjective Subjective Remarks Afebrile overnight Patient reports having a horrible experience with overnight nurse Reports his pain is uncontrolled at the moment as he just had a dressing change on the left arm No bleeding Objective Data Date Time Temp Pulse Resp B/P (MAP) Pulse Ox O2 Delivery O2 Flow Rate FiO2 10/05/17 04:00 97.9 99 20 118/64 (82) 95 10/05/17 04:00 76 10/05/17 00:00 97.9 97 24 144/89 (107) 10/05/17 00:00 88 10/04/17 20:00 98.0 95 22 139/89 (106) 95 10/04/17 20:00 Nasal Cannula 3.00 10/04/17 20:00 85 10/04/17 17:30 98.0 89 20 148/91 (110) 95 10/04/17 16:59 96 Nasal Cannula 4.00 10/04/17 14:02 96 Nasal Cannula 4.00 10/04/17 12:30 98.4 95 20 159/91 (113) 95 10/04/17 09:19 Nasal Cannula 2.00 10/05/17 10/05/17 10/05/17 07:00 15:00 23:00 Intake Total 480 ml Output Total 575 ml Balance -95 ml Result Diagram: 10/05/17 0614 10/04/17 0654 Laboratory Results Laboratory Tests Test 10/04/17 14:34 10/05/17 06:14 Activated Partial Thromboplast Time 52.7 SEC 54.5 SEC White Blood Count 7.9 TH/MM3 Red Blood Count 3.84 MIL/MM3 Hemoglobin 10.9 GM/DL Hematocrit 32.7 % Mean Corpuscular Volume 85.2 FL Mean Corpuscular Hemoglobin 28.5 PG Mean Corpuscular Hemoglobin Concent 33.5 % Red Cell Distribution Width 18.5 % Platelet Count 143 TH/MM3 Mean Platelet Volume 7.4 FL Neutrophils (%) (Auto) 91.3 % Lymphocytes (%) (Auto) 2.0 % Monocytes (%) (Auto) 6.6 % Eosinophils (%) (Auto) 0.1 % Basophils (%) (Auto) 0.0 % Neutrophils # (Auto) 7.2 TH/MM3 Lymphocytes # (Auto) 0.2 TH/MM3 Monocytes # (Auto) 0.5 TH/MM3 Eosinophils # (Auto) 0.0 TH/MM3 Basophils # (Auto) 0.0 TH/MM3 CBC Comment AUTO DIFF Culture Results Microbiology Date/Time Source Procedure Growth Status 10/03/17 17:00 Catheter Tip Subclavian Wound Culture - Preliminary NO GROWTH IN 24 HOURS. Resulted Administered Medications Medications (Trade) Dose Ordered Sig/Suzan Route PRN Reason Start Time Stop Time Status Last Admin Dose Admin Sodium Chloride (NS Flush) 2 ml BID IV FLUSH 09/29/17 21:00 10/04/17 20:30 Albuterol Sulfate (Albuterol Neb) 0.63 mg Q4HR NEB PRN NEB sob 09/29/17 17:30 10/04/17 14:02 Lorazepam (Ativan) 0.5 mg Q6HR PRN PO anxiety 09/29/17 17:30 10/05/17 06:29 Morphine Sulfate (Msir) 30 mg Q6HR PRN PO PAIN1-10 09/29/17 17:30 10/05/17 06:29 Senna/Docusate Sodium (Naa-Colace) 1 tab BID PO 09/29/17 21:00 10/04/17 09:32 Bisacodyl (Dulcolax Supp) 10 mg DAILY PRN RECTAL SEVERE CONSITIPATION 09/29/17 17:30 10/04/17 09:36 Thiamine HCl (Vitamin B1) 100 mg DAILY PO 10/01/17 09:00 10/04/17 09:32 Enalaprilat (Vasotec Inj) 1.25 mg Q6H PRN IV PUSH SBP>160, DBP>90 09/30/17 15:15 10/03/17 12:03 Methylprednisolone Sodium Succinate (SoluMEDROL INJ) 30 mg Q12H IV PUSH 09/30/17 20:00 10/04/17 20:29 Acetaminophen (Tylenol) 650 mg Q4H PRN PO TEMP > 100.4 / HEADACHE/BONE P 09/30/17 21:15 10/03/17 09:15 Insulin Human Regular (NovoLIN R SUPPLEMENTAL SCALE) 1 Q6H SQ 10/01/17 10:00 10/05/17 04:22 Ceftriaxone Sodium 2000 mg/ Sodium Chloride 100 ml @ 200 mls/hr Q24H IV 10/02/17 12:00 10/04/17 13:03 Voriconazole (Vfend) 200 mg Q24H PO 10/03/17 09:00 10/04/17 09:33 Azithromycin (Zithromax) 500 mg DAILY PO 10/03/17 09:00 10/04/17 09:33 Morphine Sulfate (Morphine Inj) 10 mg Q3H PRN IV PUSH breakthrough 10/02/17 16:30 10/05/17 02:02 Diltiazem HCl (Cardizem) 60 mg Q6HR PO 10/03/17 07:45 10/05/17 06:00 Silver Sulfadiazine (Silvadene 1% Cream (50 Gm)) 1 applic Q12HR TOPICAL 10/03/17 21:00 10/04/17 20:32 Mupirocin (Bactroban 2% Oint) 1 applic DAILY TOPICAL 10/04/17 19:30 10/05/17 06:30 Objective Remarks GENERAL: Fatigued appearing younger male resting in bed in no obvious distress SKIN: Warm and dry. Small dressing covering left upper chest were Infuse-a- Port was removed. Dressing covering right lateral chest wall. HEAD: Normocephalic. EYES: No scleral icterus. No injection or drainage. NECK: Supple. Left arm edema extends up into the left shoulder and neck CARDIOVASCULAR: Plus S1/S2. Tachycardia RESPIRATORY: Clear but diminished posteriorly. On 2L NC. GASTROINTESTINAL: Abdomen soft, non-tender, nondistended. EXTREMITIES: No cyanosis. Left upper extremity wrapped in dressing MUSCULOSKELETAL: Adequate muscle tone. NEUROLOGICAL: No obvious focal deficit. Awake, alert, and oriented x3. Nasally voice. Assessment/Plan Problem List: (1) DVT of upper extremity (deep vein thrombosis) ICD Codes: I82.629 - Acute embolism and thrombosis of deep veins of unspecified upper extremity Status: Acute Plan: --on heparin gtt --received tpa on 10/01 -- CT chest shows no SVC syndrome. (2) T-cell lymphoma ICD Codes: C85.90 - Non-Hodgkin lymphoma, unspecified, unspecified site Status: Chronic Plan: -- Status post CHOP chemotherapy in clinic. --In remission --Recent biopsy of lung showed no lymphoma involvement (3) Subcutaneous crepitus ICD Codes: R23.9 - Unspecified skin changes Status: Resolved (4) Lung consolidation ICD Codes: J18.1 - Lobar pneumonia, unspecified organism Status: Acute Plan: --on Zithromax + Vfend+ Rocephin Assessment 42-year-old male with T-cell lymphoma admitted with new left upper extremity extensive DVT Plan 1. Stop heparin drip. 2. Start Lovenox at 80 mg subcu twice daily 2 hours after stopping heparin drip. 3. Continue antibiotics per infectious disease 4. Supportive care Attending Statement The exam, history, and the medical decision-making described in the above note were completed with the assistance of the mid-level provider. I reviewed and agree with the findings presented. I attest that I had a [id number] encounter with the patient on the same day, and personally performed and documented my assessment and findings in the medical record. Pain better controlled. No bleeding. Switch to lovenox today. Pt has question regarding anticoagulation which were answered. Problem Qualifiers (1) DVT of upper extremity (deep vein thrombosis): Qualified Codes: I82.622 - Acute embolism and thrombosis of deep veins of left upper extremity Karyn Julien October 05, 2017 08:50 Lobito Kramer MD October 05, 2017 13:18
[2017-10-05] MEDS: SODIUM CHLORIDE 0.9% FLUSH 10 ML FLUSH IV FLUSH SCH ×2 (09:00→19:44)
[2017-10-05] MEDS: AZITHROMYCIN 250 MG TAB PO SCH (09:11)
[2017-10-05] MEDS: DOCUSATE SODIUM 50 MG/SENNA 8.6 MG TAB PO SCH ×2 (09:11→19:42)
[2017-10-05] MEDS: VORICONAZOLE 200 MG TAB PO SCH (09:11)
[2017-10-05] MEDS: THIAMINE HCL 100 MG TAB PO SCH (09:11)
[2017-10-05] MEDS: methylPREDNISolone SOD SUCC 40 MG/1 ML VIAL IV PUSH SCH ×2 (09:12→19:45)
[2017-10-05] MEDS: ENOXAPARIN SODIUM 80 MG/0.8 ML SYRINGE SQ SCH ×2 (09:37→20:38)
[2017-10-05 10:10] LABS: BANDS 2 % (0-6); CORRECTED NUCLEATED RBC 1 /100 WBC (0-0); LYMPHOCYTES 2 % (9-44); METAMYELOCYTES 6 % (0-1); MONOCYTES 3 % (0-8); MYELOCYTES 5 % (0-0); NEUTROPHIL # MANUAL DIFF 7.5 TH/MM3 (1.8-7.7); NUCLEATED RED BLOOD CELL 1 (0-0); POLYCHROMASIA 2.2 % (0.0-1.9); POLYS (SEG NEUTROPHILS) 82 % (16-70); TEARDROP RBCS 1+ (NORMAL)
[2017-10-05] MEDS: cefTRIAXone INJ 2,000 MG in SODIUM CHLORIDE 0.9% INJ 100 ML IV SCH (12:39)
--- NOTE | 2017-10-05 14:25 | EKG ---
Date Performed: 10/05/2017 Time Performed: 13:34:42 PTAGE: 42 years EKG: Sinus rhythm POSSIBLE LEFT ATRIAL ENLARGEMENT POSSIBLE RIGHT VENTRICULAR CONDUCTION DELAY BORDERLINE ECG PREVIOUS TRACING : 09/29/2017 15.42 Since the previous tracing, no significant change noted DOCTOR: Christopher Gray Interpretating Date/Time 10/05/2017 14:24:13
--- NOTE | 2017-10-05 15:11 | HHI.PR ---
Subjective Remarks Sitting in the bed, friend at the bedside Breathing slightly better today, however patient had painful dressing changes on his left arm today Objective Vitals Vital Signs Date Time Temp Pulse Resp B/P (MAP) Pulse Ox O2 Delivery O2 Flow Rate FiO2 10/05/17 12:00 98.1 58 18 141/91 (108) 94 10/05/17 08:00 97.9 125 18 159/97 (117) 93 10/05/17 04:00 97.9 99 20 118/64 (82) 95 10/05/17 04:00 76 10/05/17 00:00 97.9 97 24 144/89 (107) 10/05/17 00:00 88 10/04/17 20:00 98.0 95 22 139/89 (106) 95 10/04/17 20:00 Nasal Cannula 3.00 10/04/17 20:00 85 10/04/17 17:30 98.0 89 20 148/91 (110) 95 10/04/17 16:59 96 Nasal Cannula 4.00 I/O 10/04/17 10/04/17 10/04/17 10/05/17 10/05/17 10/05/17 07:00 15:00 23:00 07:00 15:00 23:00 Intake Total 480 ml 480 ml Output Total 600 ml 575 ml Balance -120 ml -95 ml Intake Oral 480 ml 480 ml Output Urine Total 600 ml 575 ml Result Diagram: 10/05/17 0614 10/04/17 0654 A/P Problem List: (1) T-cell lymphoma ICD Code: C85.90 - Non-Hodgkin lymphoma, unspecified, unspecified site Status: Chronic (2) Sepsis ICD Code: A41.9 - Sepsis, unspecified organism Status: Resolved Assessment and Plan 10/05: Continue current care O2 , dressing changes L arm, IV antibiotic per ID, heparin drip stopped started Lovenox, A/P 1)Resp Insuff 2)Lactic acidemia- resolved 3)Extensive DVT LUE, left neck 4)Pneumonia/empyema s/p recent right VTAS 5)T-cell lymphoma s/p XTR and Chemo 6)Hx Bronchial asthma 7) Hypertension 8)Sub Q emphysema 9)Elevated LFT Plan Awake and alert MRV brain negative for cavernous sinus thrombosis MRI brain unremarkable Continue with oxygen keep sats >92% Bronchodilators, solumederol 30mg Q12 CT chest: Dense consolidation changes right lung lung with mild volume loss. subcutaneous emphysema extending into the mediastinum, right chest wall left neck There is no evidence of SVC occlusion I cannot tell the status of the left subclavian or axillary vein because of the [id number] placement per radiology. CXR 10/01 showed clear left lung, opacification right hemithorax ( unchanged) CTS is following- Dr. Frey Monitor HR and BP keep MAP>65mmHg Lactic acid resolved 1.7 Place on Cardizem 60mg Q6 for BP control Monitor renal function, electrolytes replacement per protocol. Will need Phos replacement today s/p Lasix 40mg x1 yesterday with good response in UOP. On PO diet Monitor LFT's, US liver: Echogenic liver with mildly prominent spleen. Check Hepatitis profile. Continue with abx per ID (Cefepime, Azithromycin, Voriconazole) sputum cx-normal resp edgard, Legionella urinary Ag negative, Legionella culture pending. Heme: Monitor CBC, coags- on Heparin drip, Onc is following- Dr. Leigh s/p venogram with thrombolysis 10/01 showed extensive thrombus. 10/02: s/p Angioplasty (left brachiocephalic and left IJ), Venogram yesterday showed stenosis in central left brachiocephalic DOCK SUPERINTENDENT to 10 mm. Mild stenosis central left IJ DOCK SUPERINTENDENT to 7mm. Minimal residual thrombus in left IJ. Deep venous system patent Off TPA , On Heparin drip- monitor PTT SSI for glycemic control DVT GI prophylaxis -Bayron's and SCDs -Heparin drip -Pepcid Problem Qualifiers (1) Sepsis: Qualified Codes: A41.9 - Sepsis, unspecified organism Rani Blunt MD October 05, 2017 15:11
[2017-10-05] MEDS: ACETAMINOPHEN 325 MG TAB PO PRN (19:42)
[2017-10-05] MEDS: SILVER SULFADIAZINE 1% CR 50 GM JAR TOPICAL SCH (19:45)
[2017-10-06] VITALS (9 sets, daily range): BP systolic 116–158; BP diastolic 76–88; PULSE 78–105; RESP 16–20; TEMP 97.6–99.1; O2SAT 91–100
[2017-10-06] MEDS: MORPHINE SULFATE 30 MG TAB PO PRN ×5 (00:47→20:02)
[2017-10-06] MEDS: MORPHINE SULFATE 4 MG/ML INJ IV PUSH PRN ×7 (03:00→21:40)
[2017-10-06] MEDS: MUPIROCIN 2% OINT 22 GM TUBE TOPICAL SCH (03:17)
[2017-10-06] MEDS: INSULIN NovoLIN REGULAR SUPPLEMENTAL SCALE SQ SCH ×4 (03:17→21:39)
[2017-10-06] MEDS: DILTIAZEM HCL 60 MG TAB PO SCH ×3 (06:04→18:37)
[2017-10-06] MEDS: BISACODYL 10 MG SUPP RECTAL PRN (06:11)
[2017-10-06 08:10] LABS: AUTOMATED NEUTROPHIL # 7.5 TH/MM3 (1.8-7.7); BASOPHIL % 0.2 % (0.0-2.0); HEMATOCRIT 34.2 % (39.0-51.0); HEMOGLOBIN 11.2 GM/DL (13.0-17.0); LYMPH % 1.5 % (9.0-44.0); LYMPHOCYTE # 0.1 TH/MM3 (1.0-4.8); MEAN CELL VOLUME 86.1 FL (80.0-100.0); MEAN CORPUSCULAR HEMOGLOBIN 28.2 PG (27.0-34.0); MEAN CORPUSCULAR HGB CONC 32.8 % (32.0-36.0); MEAN PLATELET VOLUME 7.4 FL (7.0-11.0); MONO % 7.5 % (0.0-8.0); MONOCYTE # 0.6 TH/MM3 (0-0.9); NEUT % 90.8 % (16.0-70.0); PLATELET COUNT 156 TH/MM3 (150-450); RED BLOOD COUNT 3.97 MIL/MM3 (4.50-5.90); RED CELL DISTRIBUTION WIDTH 18.3 % (11.6-17.2); WHITE BLOOD COUNT 8.3 TH/MM3 (4.0-11.0)
[2017-10-06 08:21] LABS: BICARBONATE 29.6 MEQ/L (21.0-32.0); CALCIUM 9.1 MG/DL (8.5-10.1); CREATININE 0.97 MG/DL (0.60-1.30)
[2017-10-06] MEDS: SILVER SULFADIAZINE 1% CR 50 GM JAR TOPICAL SCH ×2 (09:00→20:12)
[2017-10-06] MEDS: DOCUSATE SODIUM 50 MG/SENNA 8.6 MG TAB PO SCH ×2 (09:00→20:00)
[2017-10-06] MEDS: THIAMINE HCL 100 MG TAB PO SCH (09:10)
[2017-10-06] MEDS: AZITHROMYCIN 250 MG TAB PO SCH (09:10)
[2017-10-06] MEDS: VORICONAZOLE 200 MG TAB PO SCH (09:10)
[2017-10-06] MEDS: ENOXAPARIN SODIUM 80 MG/0.8 ML SYRINGE SQ SCH ×2 (09:11→21:38)
[2017-10-06] MEDS: SODIUM CHLORIDE 0.9% FLUSH 10 ML FLUSH IV FLUSH SCH ×2 (09:11→20:04)
[2017-10-06] MEDS: methylPREDNISolone SOD SUCC 40 MG/1 ML VIAL IV PUSH SCH ×2 (09:11→20:01)
[2017-10-06 11:18] LABS: BANDS 4 % (0-6); LYMPHOCYTES 7 % (9-44); METAMYELOCYTES 2 % (0-1); MONOCYTES 7 % (0-8); MYELOCYTES 2 % (0-0); NEUTROPHIL # MANUAL DIFF 7.1 TH/MM3 (1.8-7.7); POLYS (SEG NEUTROPHILS) 78 % (16-70)
[2017-10-06 11:19] LABS: POLYCHROMASIA 2.3 % (0.0-1.9); TEARDROP RBCS 1+ (NORMAL)
--- NOTE | 2017-10-06 11:29 | PD.ONC.PN ---
Subjective Subjective Remarks Afebrile Wants to go home Complains of not being able to sleep in the hospital Tired of getting woken up frequently Objective Data Date Time Temp Pulse Resp B/P (MAP) Pulse Ox O2 Delivery O2 Flow Rate FiO2 10/06/17 09:33 92 Nasal Cannula 3.00 10/06/17 08:28 98.6 96 20 158/88 (111) 91 10/06/17 08:05 99 10/06/17 04:00 78 10/06/17 04:00 99.1 99 16 123/81 (95) 92 10/06/17 00:00 98.9 105 16 137/85 (102) 92 10/06/17 00:00 84 10/05/17 22:22 95 Nasal Cannula 2.00 10/05/17 20:00 95 10/05/17 20:00 98.7 92 16 120/75 (90) 96 10/05/17 20:00 Nasal Cannula 3.00 10/05/17 16:00 114 10/05/17 16:00 97.3 92 18 152/89 (110) 90 10/05/17 12:00 98.1 58 18 141/91 (108) 94 10/06/17 10/06/17 10/06/17 07:00 15:00 23:00 Intake Total 960 ml Balance 960 ml Result Diagram: 10/06/1738 10/06/17 0738 Laboratory Results Laboratory Tests Test 10/06/17 07:23 10/06/17 07:38 Activated Partial Thromboplast Time 19.9 SEC White Blood Count 8.3 TH/MM3 Red Blood Count 3.97 MIL/MM3 Hemoglobin 11.2 GM/DL Hematocrit 34.2 % Mean Corpuscular Volume 86.1 FL Mean Corpuscular Hemoglobin 28.2 PG Mean Corpuscular Hemoglobin Concent 32.8 % Red Cell Distribution Width 18.3 % Platelet Count 156 TH/MM3 Mean Platelet Volume 7.4 FL Neutrophils (%) (Auto) 90.8 % Lymphocytes (%) (Auto) 1.5 % Monocytes (%) (Auto) 7.5 % Eosinophils (%) (Auto) 0.0 % Basophils (%) (Auto) 0.2 % Neutrophils # (Auto) 7.5 TH/MM3 Lymphocytes # (Auto) 0.1 TH/MM3 Monocytes # (Auto) 0.6 TH/MM3 Eosinophils # (Auto) 0.0 TH/MM3 Basophils # (Auto) 0.0 TH/MM3 CBC Comment AUTO DIFF Differential Total Cells Counted 100 Neutrophils % (Manual) 78 % Band Neutrophils % 4 % Lymphocytes % 7 % Monocytes % 7 % Neutrophils # (Manual) 7.1 TH/MM3 Metamyelocytes 2 % Myelocytes 2 % Differential Comment FINAL DIFF MANUAL Platelet Estimate NORMAL Platelet Morphology Comment NORMAL Polychromasia 2.3 % Basophilic Stippling MOD Tear Drop Cells 1+ Blood Urea Nitrogen 24 MG/DL Creatinine 0.97 MG/DL Random Glucose 149 MG/DL Calcium Level 9.1 MG/DL Sodium Level 139 MEQ/L Potassium Level 4.1 MEQ/L Chloride Level 99 MEQ/L Carbon Dioxide Level 29.6 MEQ/L Anion Gap 10 MEQ/L Estimat Glomerular Filtration Rate 85 ML/MIN Culture Results Microbiology Date/Time Source Procedure Growth Status 10/03/17 17:00 Catheter Tip Subclavian Wound Culture - Final NO GROWTH IN 48 HOURS. Complete Administered Medications Medications (Trade) Dose Ordered Sig/Suzan Route PRN Reason Start Time Stop Time Status Last Admin Dose Admin Sodium Chloride (NS Flush) 2 ml BID IV FLUSH 09/29/17 21:00 10/06/17 09:11 Albuterol Sulfate (Albuterol Neb) 0.63 mg Q4HR NEB PRN NEB sob 09/29/17 17:30 10/04/17 14:02 Lorazepam (Ativan) 0.5 mg Q6HR PRN PO anxiety 09/29/17 17:30 10/05/17 19:42 Morphine Sulfate (Msir) 30 mg Q6HR PRN PO PAIN1-10 09/29/17 17:30 10/06/17 06:40 Senna/Docusate Sodium (Naa-Colace) 1 tab BID PO 09/29/17 21:00 10/05/17 19:42 Bisacodyl (Dulcolax Supp) 10 mg DAILY PRN RECTAL SEVERE CONSITIPATION 09/29/17 17:30 10/06/17 06:11 Thiamine HCl (Vitamin B1) 100 mg DAILY PO 10/01/17 09:00 10/06/17 09:10 Enalaprilat (Vasotec Inj) 1.25 mg Q6H PRN IV PUSH SBP>160, DBP>90 09/30/17 15:15 10/03/17 12:03 Methylprednisolone Sodium Succinate (SoluMEDROL INJ) 30 mg Q12H IV PUSH 09/30/17 20:00 10/06/17 09:11 Acetaminophen (Tylenol) 650 mg Q4H PRN PO TEMP > 100.4 / HEADACHE/BONE P 09/30/17 21:15 10/05/17 19:42 Insulin Human Regular (NovoLIN R SUPPLEMENTAL SCALE) 1 Q6H SQ 10/01/17 10:00 10/06/17 03:17 Ceftriaxone Sodium 2000 mg/ Sodium Chloride 100 ml @ 200 mls/hr Q24H IV 10/02/17 12:00 10/05/17 12:39 Voriconazole (Vfend) 200 mg Q24H PO 10/03/17 09:00 10/06/17 09:10 Azithromycin (Zithromax) 500 mg DAILY PO 10/03/17 09:00 10/06/17 09:10 Morphine Sulfate (Morphine Inj) 10 mg Q3H PRN IV PUSH breakthrough 10/02/17 16:30 10/06/17 09:11 Diltiazem HCl (Cardizem) 60 mg Q6HR PO 10/03/17 07:45 10/06/17 06:04 Silver Sulfadiazine (Silvadene 1% Cream (50 Gm)) 1 applic Q12HR TOPICAL 10/03/17 21:00 10/04/17 20:32 Mupirocin (Bactroban 2% Oint) 1 applic DAILY TOPICAL 10/04/17 19:30 10/06/17 03:17 Enoxaparin Sodium (Lovenox Inj) 80 mg Q12H SQ 10/05/17 10:00 10/06/17 09:11 Objective Remarks GENERAL: Fatigued appearing younger male resting in bed in no obvious distress SKIN: Warm and dry. Small dressing covering left upper chest were Infuse-a- Port was removed. Dressing covering right lateral chest wall. HEAD: Normocephalic. EYES: No scleral icterus. No injection or drainage. NECK: Supple. Left arm edema extends up into the left shoulder and neck CARDIOVASCULAR: Plus S1/S2. Tachycardia RESPIRATORY: Clear but diminished posteriorly. On 2L NC. GASTROINTESTINAL: Abdomen soft, non-tender, nondistended. EXTREMITIES: No cyanosis. Right groin ecchymosis. left upper extremity wrapped in dressing MUSCULOSKELETAL: Adequate muscle tone. NEUROLOGICAL: No obvious focal deficit. Awake, alert, and oriented x3. Nasally voice. Assessment/Plan Problem List: (1) DVT of upper extremity (deep vein thrombosis) ICD Codes: I82.629 - Acute embolism and thrombosis of deep veins of unspecified upper extremity Status: Acute Plan: --On therapeutic Lovenox --received tpa on 10/01 -- CT chest shows no SVC syndrome. (2) T-cell lymphoma ICD Codes: C85.90 - Non-Hodgkin lymphoma, unspecified, unspecified site Status: Chronic Plan: -- Status post CHOP chemotherapy in clinic. --In remission --Recent biopsy of lung showed no lymphoma involvement (3) Subcutaneous crepitus ICD Codes: R23.9 - Unspecified skin changes Status: Resolved (4) Lung consolidation ICD Codes: J18.1 - Lobar pneumonia, unspecified organism Status: Acute Plan: --on Zithromax + Vfend+ Rocephin Assessment 42-year-old male with T-cell lymphoma admitted with new left upper extremity extensive DVT Plan 1. Patient tolerating Lovenox okay 2. No new bruising 3. OK for discharge from hematology standpoint. 4. Followup in clinic with Dr Leigh. Attending Statement The exam, history, and the medical decision-making described in the above note were completed with the assistance of the mid-level provider. I reviewed and agree with the findings presented. I attest that I had a [id number] encounter with the patient on the same day, and personally performed and documented my assessment and findings in the medical record. Patient is complaining of not able to sleep when he is in the hospital. His pain is better controlled. He has no chest pain or shortness of breath. He can be discharged from oncology standpoint follow-up with Dr. Leigh. Problem Qualifiers (1) DVT of upper extremity (deep vein thrombosis): Qualified Codes: I82.622 - Acute embolism and thrombosis of deep veins of left upper extremity Karyn Julien October 06, 2017 11:28 Lobito Kramer MD October 06, 2017 11:41
[2017-10-06] MEDS: cefTRIAXone INJ 2,000 MG in SODIUM CHLORIDE 0.9% INJ 100 ML IV SCH (12:12)
[2017-10-06] MEDS: ACETAMINOPHEN 325 MG TAB PO PRN ×2 (13:33→20:10)
[2017-10-06] MEDS: RESP: ALBUTEROL 0.63 MG/3 ML NEB (PRN) NEB ×2 (16:21→19:55)
--- NOTE | 2017-10-06 18:14 | HHI.PR ---
Subjective Remarks Reported feeling slightly better, he is on breathing treatment feeling better with it to less tight in the chest and less wheezing Objective Vitals Vital Signs Date Time Temp Pulse Resp B/P (MAP) Pulse Ox O2 Delivery O2 Flow Rate FiO2 10/06/17 16:00 81 10/06/17 15:52 97.9 88 20 138/77 (97) 93 10/06/17 12:46 2.00 10/06/17 12:10 98.0 102 20 131/83 (99) 92 10/06/17 12:00 90 10/06/17 09:33 92 Nasal Cannula 3.00 10/06/17 08:28 98.6 96 20 158/88 (111) 91 10/06/17 08:05 99 10/06/17 04:00 78 10/06/17 04:00 99.1 99 16 123/81 (95) 92 10/06/17 00:00 98.9 105 16 137/85 (102) 92 10/06/17 00:00 84 10/05/17 22:22 95 Nasal Cannula 2.00 10/05/17 20:00 95 10/05/17 20:00 98.7 92 16 120/75 (90) 96 10/05/17 20:00 Nasal Cannula 3.00 I/O 10/05/17 10/05/17 10/05/17 10/06/17 10/06/17 10/06/17 07:00 15:00 23:00 07:00 15:00 23:00 Intake Total 480 ml 960 ml 110 ml 750 ml Output Total 575 ml Balance -95 ml 960 ml 110 ml 750 ml Intake Oral 480 ml 960 ml 750 ml IV Total 110 ml Output Urine Total 575 ml # Voids 5 10 5 # Bowel Movements 1 Result Diagram: 10/06/17 0738 10/06/17 0738 Objective Remarks GENERAL: This is a well-nourished, well-developed patient, in no apparent distress. CARDIOVASCULAR: RRR, no gallops, or rubs. RESPIRATORY: Less wheezing bilaterally GASTROINTESTINAL: Abdomen soft, non-tender, nondistended. Positive bowel sounds MUSCULOSKELETAL: Left upper extremity and gauze NEUROLOGICAL: Awake and alert. Moves all extremity. Normal speech.no focal neurological deficit A/P Problem List: (1) T-cell lymphoma ICD Code: C85.90 - Non-Hodgkin lymphoma, unspecified, unspecified site Status: Chronic (2) Sepsis ICD Code: A41.9 - Sepsis, unspecified organism Status: Resolved Assessment and Plan 10/05: Continue current care O2 , dressing changes L arm, IV antibiotic per ID, heparin drip stopped started Lovenox, 10/06: The vfend, monitor CK, QT and renal function, continue dressing changes, continue Lovenox anticoagulation, continue close monitoring for improvement A/P 1)Resp Insuff 2)Lactic acidemia- resolved 3)Extensive DVT LUE, left neck 4)Pneumonia/empyema s/p recent right VTAS 5)T-cell lymphoma s/p XTR and Chemo 6)Hx Bronchial asthma 7) Hypertension 8)Sub Q emphysema 9)Elevated LFT Plan Awake and alert MRV brain negative for cavernous sinus thrombosis MRI brain unremarkable Continue with oxygen keep sats >92% Bronchodilators, solumederol 30mg Q12 CT chest: Dense consolidation changes right lung lung with mild volume loss. subcutaneous emphysema extending into the mediastinum, right chest wall left neck There is no evidence of SVC occlusion I cannot tell the status of the left subclavian or axillary vein because of the [id number]-e-[id number] placement per radiology. CXR 10/01 showed clear left lung, opacification right hemithorax ( unchanged) CTS is following- Dr. Frey Monitor HR and BP keep MAP>65mmHg Lactic acid resolved 1.[address] on Cardizem 60mg Q6 for BP control Monitor renal function, electrolytes replacement per protocol. Will need Phos replacement today s/p Lasix 40mg x1 yesterday with good response in UOP. On PO diet Monitor LFT's, US liver: Echogenic liver with mildly prominent spleen. Check Hepatitis profile. Continue with abx per ID (Cefepime, Azithromycin, Voriconazole) sputum cx-normal resp edgard, Legionella urinary Ag negative, Legionella culture pending. Heme: Monitor CBC, coags- on Heparin drip, Onc is following- Dr. Leigh s/p venogram with thrombolysis 10/01 showed extensive thrombus. 10/02: s/p Angioplasty (left brachiocephalic and left IJ), Venogram yesterday showed stenosis in central left brachiocephalic [employer] to 10 mm. Mild stenosis central left IJ [employer] to 7mm. Minimal residual thrombus in left IJ. Deep venous system patent Off TPA , On Heparin drip- monitor PTT SSI for glycemic control DVT GI prophylaxis -Bayron's and SCDs -Heparin drip -Pepcid Problem Qualifiers (1) Sepsis: Qualified Codes: A41.9 - Sepsis, unspecified organism Rani Blunt MD October 06, 2017 18:14
[2017-10-06] MEDS: LORazepam 0.5 MG TAB PO PRN (21:50)
[2017-10-07] VITALS (8 sets, daily range): BP systolic 130–143; BP diastolic 82–94; PULSE 73–99; RESP 16–20; TEMP 97.8–98.5; O2SAT 90–96
[2017-10-07] MEDS: DILTIAZEM HCL 60 MG TAB PO SCH ×4 (00:53→18:34)
[2017-10-07] MEDS: MORPHINE SULFATE 4 MG/ML INJ IV PUSH PRN ×3 (00:53→06:40)
[2017-10-07] MEDS: MUPIROCIN 2% OINT 22 GM TUBE TOPICAL SCH (00:54)
[2017-10-07] MEDS: MORPHINE SULFATE 30 MG TAB PO PRN ×3 (02:01→13:41)
[2017-10-07] MEDS: INSULIN NovoLIN REGULAR SUPPLEMENTAL SCALE SQ SCH ×3 (03:53→16:10)
[2017-10-07 06:26] LABS: AUTOMATED NEUTROPHIL # 7.1 TH/MM3 (1.8-7.7); BASOPHIL % 0.1 % (0.0-2.0); HEMOGLOBIN 11.2 GM/DL (13.0-17.0); LYMPH % 1.7 % (9.0-44.0); LYMPHOCYTE # 0.1 TH/MM3 (1.0-4.8); MEAN CELL VOLUME 86.6 FL (80.0-100.0); MEAN CORPUSCULAR HEMOGLOBIN 28.5 PG (27.0-34.0); MEAN PLATELET VOLUME 7.5 FL (7.0-11.0); MONO % 6.5 % (0.0-8.0); MONOCYTE # 0.5 TH/MM3 (0-0.9); NEUT % 91.7 % (16.0-70.0); PLATELET COUNT 148 TH/MM3 (150-450); RED BLOOD COUNT 3.92 MIL/MM3 (4.50-5.90); RED CELL DISTRIBUTION WIDTH 18.8 % (11.6-17.2); WHITE BLOOD COUNT 7.8 TH/MM3 (4.0-11.0)
[2017-10-07] MEDS: THIAMINE HCL 100 MG TAB PO SCH (07:51)
[2017-10-07] MEDS: DOCUSATE SODIUM 50 MG/SENNA 8.6 MG TAB PO SCH (07:51)
[2017-10-07] MEDS: AZITHROMYCIN 250 MG TAB PO SCH (07:51)
[2017-10-07] MEDS: VORICONAZOLE 200 MG TAB PO SCH (07:51)
[2017-10-07] MEDS: methylPREDNISolone SOD SUCC 40 MG/1 ML VIAL IV PUSH SCH (07:51)
[2017-10-07] MEDS: ACETAMINOPHEN 325 MG TAB PO PRN (07:51)
[2017-10-07] MEDS: ENOXAPARIN SODIUM 80 MG/0.8 ML SYRINGE SQ SCH (07:58)
[2017-10-07] MEDS: SODIUM CHLORIDE 0.9% FLUSH 10 ML FLUSH IV FLUSH SCH (08:00)
[2017-10-07] MEDS: LORazepam 0.5 MG TAB PO PRN ×2 (08:06→13:41)
[2017-10-07 08:28] LABS: BANDS 6 % (0-6); CORRECTED NUCLEATED RBC 3 /100 WBC (0-0); LYMPHOCYTES 4 % (9-44); METAMYELOCYTES 2 % (0-1); MONOCYTES 5 % (0-8); MYELOCYTES 1 % (0-0); NEUTROPHIL # MANUAL DIFF 7.1 TH/MM3 (1.8-7.7); NUCLEATED RED BLOOD CELL 3 (0-0); POLYS (SEG NEUTROPHILS) 82 % (16-70)
[2017-10-07 08:29] LABS: TEARDROP RBCS 1+ (NORMAL)
[2017-10-07] MEDS: SILVER SULFADIAZINE 1% CR 50 GM JAR TOPICAL SCH (09:00)
--- NOTE | 2017-10-07 09:39 | RADRPT ---
EXAM DATE/TIME: 10/07/2017 09:14 [facility] COMPARISON: CT THORAX W CONTRAST, September 29, 2017, 15:20. CHEST SINGLE AP, October 01, 2017, 10:22. INDICATIONS : Pneumonia. MEDICAL HISTORY : Hypercholesterolemia. Hypertension T-cell lymphoma, asthma, pneumonia, coronary artery disease SURGICAL HISTORY : lung biopsy ENCOUNTER: Initial ACUITY: 1 week PAIN SCORE: 0/10 LOCATION: Bilateral chest FINDINGS: Stable extensive consolidative change in the right chest with moderate subcutaneous emphysema in the right lateral chest wall and right neck. Persistent pneumomediastinum. Volume loss with rightward car diomediastinal shift. Left lung is stable and clear. CONCLUSION: No significant change Bienvenido Bear MD on October 07, 2017 at 9:35 Board Certified Radiologist. This report was verified electronically.
--- NOTE | 2017-10-07 10:10 | PD.ONC.PN ---
Subjective Subjective Remarks Afebrile overnight. Patient resting in bed. Eager to go home. States breathing is improving. pain in left arm improved. Objective Data Date Time Temp Pulse Resp B/P (MAP) Pulse Ox O2 Delivery O2 Flow Rate FiO2 10/07/17 09:03 93 Nasal Cannula 3.00 10/07/17 08:15 96 Nasal Cannula 3.00 10/07/17 08:11 98.1 82 18 130/82 (98) 96 10/07/17 07:31 82 10/07/17 04:00 96 10/07/17 04:00 98.5 89 16 132/94 (107) 92 10/07/17 00:00 98.0 98 17 143/94 (110) 90 10/07/17 00:00 73 10/06/17 20:00 101 10/06/17 20:00 Nasal Cannula 3.00 10/06/17 20:00 97.6 92 16 116/76 (89) 100 10/06/17 19:11 Nasal Cannula 3.00 10/06/17 16:00 81 10/06/17 15:52 97.9 88 20 138/77 (97) 93 10/06/17 12:46 2.00 10/06/17 12:10 98.0 102 20 131/83 (99) 92 10/06/17 12:00 90 10/07/17 10/07/17 10/07/17 07:00 15:00 23:00 Intake Total 1080 ml Output Total 400 ml Balance 680 ml Result Diagram: 10/07/17 0609 10/06/17 0738 Laboratory Results Laboratory Tests Test 10/07/17 06:09 White Blood Count 7.8 TH/MM3 Red Blood Count 3.92 MIL/MM3 Hemoglobin 11.2 GM/DL Hematocrit 34.0 % Mean Corpuscular Volume 86.6 FL Mean Corpuscular Hemoglobin 28.5 PG Mean Corpuscular Hemoglobin Concent 33.0 % Red Cell Distribution Width 18.8 % Platelet Count 148 TH/MM3 Mean Platelet Volume 7.5 FL Neutrophils (%) (Auto) 91.7 % Lymphocytes (%) (Auto) 1.7 % Monocytes (%) (Auto) 6.5 % Eosinophils (%) (Auto) 0.0 % Basophils (%) (Auto) 0.1 % Neutrophils # (Auto) 7.1 TH/MM3 Lymphocytes # (Auto) 0.1 TH/MM3 Monocytes # (Auto) 0.5 TH/MM3 Eosinophils # (Auto) 0.0 TH/MM3 Basophils # (Auto) 0.0 TH/MM3 CBC Comment AUTO DIFF Differential Total Cells Counted 100 Neutrophils % (Manual) 82 % Band Neutrophils % 6 % Lymphocytes % 4 % Monocytes % 5 % Neutrophils # (Manual) 7.1 TH/MM3 Metamyelocytes 2 % Myelocytes 1 % Nucleated Red Blood Cells 3 /100 WBC Differential Comment FINAL DIFF MANUAL Platelet Estimate LOW Platelet Morphology Comment NORMAL Tear Drop Cells 1+ Ovalocytes Imaging Studies Last 24 hours Impressions Chest X-Ray 10/07/17 0900 Signed Impressions: Service Date/Time: Saturday, October 07, 2017 09:14 - CONCLUSION: No significant change Bienvenido Bear MD Administered Medications Medications (Trade) Dose Ordered Sig/Suzan Route PRN Reason Start Time Stop Time Status Last Admin Dose Admin Sodium Chloride (NS Flush) 2 ml BID IV FLUSH 09/29/17 21:00 10/07/17 08:00 Albuterol Sulfate (Albuterol Neb) 0.63 mg Q4HR NEB PRN NEB sob 09/29/17 17:30 10/06/17 19:55 Lorazepam (Ativan) 0.5 mg Q6HR PRN PO anxiety 09/29/17 17:30 10/07/17 08:06 Morphine Sulfate (Msir) 30 mg Q6HR PRN PO PAIN1-10 09/29/17 17:30 10/07/17 08:06 Senna/Docusate Sodium (Naa-Colace) 1 tab BID PO 09/29/17 21:00 10/07/17 07:51 Bisacodyl (Dulcolax Supp) 10 mg DAILY PRN RECTAL SEVERE CONSITIPATION 09/29/17 17:30 10/06/17 06:11 Thiamine HCl (Vitamin B1) 100 mg DAILY PO 10/01/17 09:00 10/07/17 07:51 Enalaprilat (Vasotec Inj) 1.25 mg Q6H PRN IV PUSH SBP>160, DBP>90 09/30/17 15:15 10/03/17 12:03 Methylprednisolone Sodium Succinate (SoluMEDROL INJ) 30 mg Q12H IV PUSH 09/30/17 20:00 10/07/17 07:51 Acetaminophen (Tylenol) 650 mg Q4H PRN PO TEMP > 100.4 / HEADACHE/BONE P 09/30/17 21:15 10/07/17 07:51 Insulin Human Regular (NovoLIN R SUPPLEMENTAL SCALE) 1 Q6H SQ 10/01/17 10:00 10/07/17 08:00 Voriconazole (Vfend) 200 mg Q24H PO 10/03/17 09:00 10/07/17 07:51 Azithromycin (Zithromax) 500 mg DAILY PO 10/03/17 09:00 10/07/17 07:51 Diltiazem HCl (Cardizem) 60 mg Q6HR PO 10/03/17 07:45 10/07/17 06:40 Silver Sulfadiazine (Silvadene 1% Cream (50 Gm)) 1 applic Q12HR TOPICAL 10/03/17 21:00 10/04/17 20:32 Mupirocin (Bactroban 2% Oint) 1 applic DAILY TOPICAL 10/04/17 19:30 10/07/17 00:54 Enoxaparin Sodium (Lovenox Inj) 80 mg Q12H SQ 10/05/17 10:00 10/07/17 07:58 Objective Remarks GENERAL: Pleasant male, upright in bed, on 3L O2 via NC SKIN: Warm and dry. HEAD: Normocephalic. EYES: No injection or drainage. NECK: trachea midline. CARDIOVASCULAR: Regular rate and rhythm RESPIRATORY: crackles, right base, anterior flores clear. on 3L O2 via NC GASTROINTESTINAL: Abdomen soft, non-tender, nondistended. EXTREMITIES: No cyanosis. left arm wrapped in gauze, c/d/i. NEUROLOGICAL: awake, alert. normal speech. moving all extremities. no focal deficit Assessment/Plan Problem List: (1) DVT of upper extremity (deep vein thrombosis) ICD Codes: I82.629 - Acute embolism and thrombosis of deep veins of unspecified upper extremity Status: Acute Plan: --On therapeutic Lovenox --received tpa on 10/01 -- CT chest shows no SVC syndrome. (2) T-cell lymphoma ICD Codes: C85.90 - Non-Hodgkin lymphoma, unspecified, unspecified site Status: Chronic Plan: -- Status post CHOP chemotherapy in clinic. --In remission --Recent biopsy of lung showed no lymphoma involvement (3) Subcutaneous crepitus ICD Codes: R23.9 - Unspecified skin changes Status: Resolved (4) Lung consolidation ICD Codes: J18.1 - Lobar pneumonia, unspecified organism Status: Acute Plan: --on Zithromax + Vfend Assessment 42-year-old male with T-cell lymphoma admitted with new left upper extremity extensive DVT Plan 1. oncology clear for discharge if cleared by other specialties. 2. follow up in clinic 1-2 weeks post-discharge Problem Qualifiers (1) DVT of upper extremity (deep vein thrombosis): Qualified Codes: I82.622 - Acute embolism and thrombosis of deep veins of left upper extremity Doris Liu October 07, 2017 10:10
[2017-10-07] MEDS: RESP: ALBUTEROL 0.63 MG/3 ML NEB (PRN) NEB (10:34)
--- NOTE | 2017-10-07 13:32 | HHI.IDPN ---
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 This is his 3rd admission at the hospital for recurrent pneumonias. He has undergone a bronchoscopy twice with all culture no growth so far. He also had an open lung biopsy last admission as infiltrates worsened despite IV antibiotics and antifungals. Lung biopsy c/w acute lung injury possibly chemoinduced injury. No fungal elements identified and PCP stain was negative. He has had extensive workup and results of most serology are now available. Legionella serovar 6 positive IgG. Mycoplasma IgG positive. He has however responded to some extent to Vfend and since serology in an Immune compromised person may not be reliable a decision was made to stop antibiotics as he did not respond to antibacterials including for atypical pneumonia and he was discharged home on Voriconazole (Vfend trade name). He reports compliance with meds. He reports being home except 1 day he stepped out for dinner with family. No sick contacts Risk factor: multiple hospitalizations, Immune compromised Port in place left chest wall. No recent travel. History of significant mold exposure in prior home. No recent change in AC at home or any other significant exposures. Kids and pets are doing well with no illnesses. 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 He developed change in voice in last 1 week with nasal squeakiness. He reports no episodes of apnea or choking sensation but does experience shortness of breath off and on. Denies any difficulty swallowing. He denies pooling of saliva. He reports since a day prior to admission his noticed left side face, left chest wall, left UE swelling. She initially noted air like bubbles under skin. He underwent imaging at [place] with extensive DVT involving veins of LUE and neck left side. He reports cough with occ expectoration. Denies any chest pain. CT showed consolidation increased since last admission. He also reports serous discharge from Rt chest wall at prior chest tube site. ID consulted for evaluation and Mment of possible HCAP in an IC patient. Overnight events reviewed Feels better wishes to go home. No shortness of breath No fevers No rash No diarrhea Facial swelling remarkably better. LUE swelling reduced remarkably. s/p IR intervention with tPA followed by heparin gtt. Antibiotics Azithro IV Voriconazole. Lines Port site ok PIV sites ok. Past Medical History reviewed Allergies: Coded Allergies: No Known Allergies (Unverified , 09/29/17) Objective . Vital Signs Date Time Temp Pulse Resp B/P (MAP) Pulse Ox O2 Delivery O2 Flow Rate FiO2 10/07/17 12:45 97.8 95 18 137/85 (102) 95 10/07/17 09:03 93 Nasal Cannula 3.00 10/07/17 08:15 96 Nasal Cannula 3.00 10/07/17 08:11 98.1 82 18 130/82 (98) 96 10/07/17 07:31 82 10/07/17 04:00 96 10/07/17 04:00 98.5 89 16 132/94 (107) 92 10/07/17 00:00 98.0 98 17 143/94 (110) 90 10/07/17 00:00 73 10/06/17 20:00 101 10/06/17 20:00 Nasal Cannula 3.00 10/06/17 20:00 97.6 92 16 116/76 (89) 100 10/06/17 19:11 Nasal Cannula 3.00 10/06/17 16:00 81 10/06/17 15:52 97.9 88 20 138/77 (97) 93 . Laboratory Tests Test 10/06/17 07:38 10/07/17 06:09 White Blood Count 8.3 TH/MM3 7.8 TH/MM3 Red Blood Count 3.97 MIL/MM3 3.92 MIL/MM3 Hemoglobin 11.2 GM/DL 11.2 GM/DL Hematocrit 34.2 % 34.0 % Mean Corpuscular Volume 86.1 FL 86.6 FL Mean Corpuscular Hemoglobin 28.2 PG 28.5 PG Mean Corpuscular Hemoglobin Concent 32.8 % 33.0 % Red Cell Distribution Width 18.3 % 18.8 % Platelet Count 156 TH/MM3 148 TH/MM3 Mean Platelet Volume 7.4 FL 7.5 FL Neutrophils (%) (Auto) 90.8 % 91.7 % Lymphocytes (%) (Auto) 1.5 % 1.7 % Monocytes (%) (Auto) 7.5 % 6.5 % Eosinophils (%) (Auto) 0.0 % 0.0 % Basophils (%) (Auto) 0.2 % 0.1 % Neutrophils # (Auto) 7.5 TH/MM3 7.1 TH/MM3 Lymphocytes # (Auto) 0.1 TH/MM3 0.1 TH/MM3 Monocytes # (Auto) 0.6 TH/MM3 0.5 TH/MM3 Eosinophils # (Auto) 0.0 TH/MM3 0.0 TH/MM3 Basophils # (Auto) 0.0 TH/MM3 0.0 TH/MM3 CBC Comment AUTO DIFF AUTO DIFF Differential Total Cells Counted 100 100 Neutrophils % (Manual) 78 % 82 % Band Neutrophils % 4 % 6 % Lymphocytes % 7 % 4 % Monocytes % 7 % 5 % Neutrophils # (Manual) 7.1 TH/MM3 7.1 TH/MM3 Metamyelocytes 2 % 2 % Myelocytes 2 % 1 % Differential Comment FINAL DIFF MANUAL FINAL DIFF MANUAL Platelet Estimate NORMAL LOW Platelet Morphology Comment NORMAL NORMAL Polychromasia 2.3 % Basophilic Stippling MOD Tear Drop Cells 1+ 1+ Nucleated Red Blood Cells 3 /100 WBC Ovalocytes Laboratory Tests Test 10/06/17 07:38 Blood Urea Nitrogen 24 MG/DL Creatinine 0.97 MG/DL Random Glucose 149 MG/DL Calcium Level 9.1 MG/DL Sodium Level 139 MEQ/L Potassium Level 4.1 MEQ/L Chloride Level 99 MEQ/L Carbon Dioxide Level 29.6 MEQ/L Anion Gap 10 MEQ/L Estimat Glomerular Filtration Rate 85 ML/MIN Imaging Last Impressions Chest X-Ray 09/30/17 0000 Signed Impressions: Service Date/Time: Saturday, September 30, 2017 18:27 - CONCLUSION: No significant change Bienvenido Bear MD Chest CT 09/29/17 1509 Signed Impressions: Service Date/Time: Friday, September 29, 2017 15:20 - CONCLUSION: Dense consolidation changes right lung lung with mild volume loss. New significant subcutaneous emphysema extending into the mediastinum, right chest wall left neck There is no evidence of superior vena cava occlusion I cannot tell the status of the left subclavian or axillary vein because of the [id number]-[id number]-[id number] placement. . Román Howard MD FACR Upper Extremity Ultrasound 09/29/17 0000 Signed Impressions: Service Date/Time: Friday, September 29, 2017 17:06 - CONCLUSION: 1. Extensive occlusive thrombus left neck and left arm. Db Alcantara MD Physical Exam GENERAL: This is a well-nourished, well-developed patient, in no apparent distress. SKIN: No rashes, ecchymoses or lesions. Cool and dry. HEAD: Atraumatic. Normocephalic. No temporal or scalp tenderness. EYES: Left eyelid swelling reduced. Pupils equal round and reactive. Extraocular motions intact. No scleral icterus. No injection or drainage. ENT: Nose without bleeding, purulent drainage or septal hematoma. Throat without erythema, tonsillar hypertrophy or exudate. Uvula midline. Airway patent. Face and Neck: Trachea midline. Supple, nontender, no meningeal signs. Facial swelling much reduced. LUE swelling reduced as well. CARDIOVASCULAR: Regular rate and rhythm without murmurs, gallops, or rubs. RESPIRATORY: AE decreased R > L. Creps R>L. GASTROINTESTINAL: Abdomen soft, non-tender, nondistended. Obese abdomen. MUSCULOSKELETAL: Extremities without clubbing, cyanosis, or edema. No joint tenderness, effusion, or edema noted. No calf tenderness. Negative Homans sign bilaterally. NEUROLOGICAL: Awake and alert. Cranial nerves II through XII intact. Motor and sensory grossly within normal limits. Five out of 5 muscle strength in all muscle groups. Normal speech. Port site deep non tender no erythema or induration. Psych cooperative, pleasant. Assessment & Plan Remarks Sepsis Recurrent pneumonia Possible Health care associated pneumonia (multiple recent hospitalizations) New left eyelid swelling and drooping of eyelid ? ptosis vs due to eyelid swelling. Blisters on left forearm and arm: unlikely antibiotic related. ? due to extensive LUE swelling. No other rash or oral lesions. 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 Abnormal LFTs: Sepsis, Vfend. Left neck and LUE extensive DVT Subcut emphysema and in mediastinum T cell lymphoma s/p chemo and radiation Immunocompromised Recs DC Ceftriaxone IV Continue Azithro change to oral (for atypical PNA) for 5 more days. Continue Voriconazole oral for aspergillosis empiric pending BMT evaluation. Patient has a significant mold exposure history. Follow cultures Follow clinically dw plan for DC as above. Will sign off please call back if any change in clinical condition or questions. Sarah Dwyer MD October 07, 2017 13:32
[2017-10-07] MEDS ORDERED: AZIT250T3 PO (16:39)
[2017-10-07] MEDS ORDERED: CARD240C6 PO (16:39)
[2017-10-07] MEDS ORDERED: NOVORP2 SQ (16:39)
--- NOTE | 2017-10-07 16:41 | HHI.PR ---
Subjective Remarks Patient seen and examined earlier today Sitting in bed stated he feels slightly better in general Afebrile I discussed with oncology EP SPECIALIST they recommended patient to be seen by Dr. Leigh and then decide on discharge, also recommend Zithromax for 5 days and then continue on Vfend Objective Vitals Vital Signs Date Time Temp Pulse Resp B/P (MAP) Pulse Ox O2 Delivery O2 Flow Rate FiO2 10/07/17 15:59 98.4 85 20 142/86 (104) 93 10/07/17 12:45 97.8 95 18 137/85 (102) 95 10/07/17 12:00 99 10/07/17 09:03 93 Nasal Cannula 3.00 10/07/17 08:15 96 Nasal Cannula 3.00 10/07/17 08:11 98.1 82 18 130/82 (98) 96 10/07/17 07:31 82 10/07/17 04:00 96 10/07/17 04:00 98.5 89 16 132/94 (107) 92 10/07/17 00:00 98.0 98 17 143/94 (110) 90 10/07/17 00:00 73 10/06/17 20:00 101 10/06/17 20:00 Nasal Cannula 3.00 10/06/17 20:00 97.6 92 16 116/76 (89) 100 10/06/17 19:11 Nasal Cannula 3.00 I/O 10/06/17 10/06/17 10/06/17 10/07/17 10/07/17 10/07/17 07:00 15:00 23:00 07:00 15:00 23:00 Intake Total 960 ml 110 ml 750 ml 1080 ml 800 ml Output Total 400 ml Balance 960 ml 110 ml 750 ml 680 ml 800 ml Intake Oral 960 ml 750 ml 1080 ml 800 ml IV Total 110 ml Output Urine Total 400 ml # Voids 10 5 7 5 # Bowel Movements 1 Result Diagram: 10/07/17 0609 10/06/17 0738 Objective Remarks GENERAL: This is a well-nourished, well-developed patient, in no apparent distress. CARDIOVASCULAR: RRR, no gallops, or rubs. RESPIRATORY: Less wheezing bilaterally GASTROINTESTINAL: Abdomen soft, non-tender, nondistended. Positive bowel sounds MUSCULOSKELETAL: Left upper extremity and gauze NEUROLOGICAL: Awake and alert. Moves all extremity. Normal speech.no focal neurological deficit A/P Problem List: (1) T-cell lymphoma ICD Code: C85.90 - Non-Hodgkin lymphoma, unspecified, unspecified site Status: Chronic (2) Sepsis ICD Code: A41.9 - Sepsis, unspecified organism Status: Resolved Assessment and Plan 10/07: The vfend, monitor CK, QT and renal function, continue dressing changes, continue Lovenox anticoagulation, I discussed with oncology EP SPECIALIST they recommended patient to be seen by Dr. Leigh and then decide on discharge, also recommend Zithromax for 5 days and then continue on Vfend A/P 1)Resp Insuff 2)Lactic acidemia- resolved 3)Extensive DVT LUE, left neck 4)Pneumonia/empyema s/p recent right VTAS 5)T-cell lymphoma s/p XTR and Chemo 6)Hx Bronchial asthma 7) Hypertension 8)Sub Q emphysema 9)Elevated LFT Plan Awake and alert MRV brain negative for cavernous sinus thrombosis MRI brain unremarkable Continue with oxygen keep sats >92% Bronchodilators, solumederol 30mg Q12 CT chest: Dense consolidation changes right lung lung with mild volume loss. subcutaneous emphysema extending into the mediastinum, right chest wall left neck There is no evidence of SVC occlusion I cannot tell the status of the left subclavian or axillary vein because of the [id number]-x-[id number] placement per radiology. CXR 10/01 showed clear left lung, opacification right hemithorax ( unchanged) CTS is following- Dr. Frey Monitor HR and BP keep MAP>65mmHg Lactic acid resolved 1.[address] on Cardizem 60mg Q6 for BP control Monitor renal function, electrolytes replacement per protocol. Will need Phos replacement today s/p Lasix 40mg x1 yesterday with good response in UOP. On PO diet Monitor LFT's, US liver: Echogenic liver with mildly prominent spleen. Check Hepatitis profile. Continue with abx per ID (Cefepime, Azithromycin, Voriconazole) sputum cx-normal resp edgard, Legionella urinary Ag negative, Legionella culture pending. Heme: Monitor CBC, coags- on Heparin drip, Onc is following- Dr. Leigh s/p venogram with thrombolysis 10/01 showed extensive thrombus. 10/02: s/p Angioplasty (left brachiocephalic and left IJ), Venogram yesterday showed stenosis in central left brachiocephalic FRONT END ASSISTANT to 10 mm. Mild stenosis central left IJ FRONT END ASSISTANT to 7mm. Minimal residual thrombus in left IJ. Deep venous system patent Off TPA , On Heparin drip- monitor PTT SSI for glycemic control DVT GI prophylaxis -Bayron's and SCDs -Heparin drip -Pepcid Problem Qualifiers (1) Sepsis: Qualified Codes: A41.9 - Sepsis, unspecified organism Rani Blunt MD October 07, 2017 16:41
[2017-10-07] MEDS ORDERED: APIX5TAB PO (18:02)
[2017-10-07] MEDS ORDERED: XARE15TA PO (18:09)
[2017-10-07] MEDS ORDERED: predniSONE 20 MG TAB PO SCH (21:00)
== END 2017-10-07 18:55 | disposition home or self-care (01) | DRG 853 ==
LOC: NEPC 14:07 → NEDA 17:01 → HCIN 20:10 → HIME 09-30 23:25 → HCIN 10-03 11:04
PROVIDERS: ADMIT Internal Medicine; ATTEND Internal Medicine
PROC: 3E03317 Introduction of Other Thrombolytic into Peripheral Vein, Percutaneous Approach (ICD-10-PCS; principal; 2017-10-01)
PROC: 05783DZ Dilation of Left Axillary Vein with Intraluminal Device, Percutaneous Approach (ICD-10-PCS; 2017-10-02)
PROC: 057A3DZ Dilation of Left Brachial Vein with Intraluminal Device, Percutaneous Approach (ICD-10-PCS; 2017-10-02)
PROC: 057F3DZ Dilation of Left Cephalic Vein with Intraluminal Device, Percutaneous Approach (ICD-10-PCS; 2017-10-02)
PROC: 057Y3DZ Dilation of Upper Vein with Intraluminal Device, Percutaneous Approach (ICD-10-PCS; 2017-10-02)
PROC: 057 Upper Veins, Dilation (ICD-10-PCS; 2017-10-02)
PROC: 05PY03Z Removal of Infusion Device from Upper Vein, Open Approach (ICD-10-PCS; 2017-10-03)
PROC: 0JPT0WZ Removal of Totally Implantable Vascular Access Device from Trunk Subcutaneous Tissue and Fascia, Open Approach (ICD-10-PCS; 2017-10-03)
DX: A41.9 Sepsis, unspecified organism (principal); J18.1 Lobar pneumonia, unspecified organism; J86.9 Pyothorax without fistula; E87.2 Acidosis; I82.622 Acute embolism and thrombosis of deep veins of left upper extremity; C83.50 Lymphoblastic (diffuse) lymphoma, unspecified site; J98.2 Interstitial emphysema; T82.868A Thrombosis due to vascular prosthetic devices, implants and grafts, initial encounter; I82.B12 Acute embolism and thrombosis of left subclavian vein; I82.A12 Acute embolism and thrombosis of left axillary vein; I82.C12 Acute embolism and thrombosis of left internal jugular vein; I10 Essential (primary) hypertension; Z92.21 Personal history of antineoplastic chemotherapy; E78.00 Pure hypercholesterolemia, unspecified; M19.90 Unspecified osteoarthritis, unspecified site; J45.909 Unspecified asthma, uncomplicated; Y95 Nosocomial condition; R00.0 Tachycardia, unspecified; Z82.49 Family history of ischemic heart disease and other diseases of the circulatory system; Z87.01 Personal history of pneumonia (recurrent); Z77.120 Contact with and (suspected) exposure to mold (toxic); R65.20 Severe sepsis without septic shock; Z79.52 Long term (current) use of systemic steroids; I25.10 Atherosclerotic heart disease of native coronary artery without angina pectoris; Y82.8 Other medical devices associated with adverse incidents; R23.8 Other skin changes
CPT/HCPCS: 36010; 36011; 36600; 37212; 37213; 37214; 37248; 37249; 70546; 70553; 71045; 71260; 75820; 75827; 75860; 76705; 76937; 80048; 80053; 80074; 80202; 81001; 82805; 82948; 83605; 83735; 84100; 84145; 85007; 85027; 85384; 85610; 85730; 86713; 86738; 87040; 87070; 87071; 87081; 87205; 87449; 87641; 93005; 93971; 94150; 94640; 94664; 96374; 99152; 99153; A9579; C1725; C1757; C1769; C1887; C1894; J0456; J0692; J0696; J1170; J1644; J1650; J1940; J2060; J2250; J2270; J2543; J2920; J2997; J3010; J3370; J7030; J7040; J7050; J7613; Q9967

== ENCOUNTER 2017-12-13 05:35 | Inpatient (IN) ==
[2017-12-13] MEDS ORDERED: Morphine Sulfate Inj 8 MG/ML Vial IV.PUSH ONE ×2 (06:05→20:00)
--- NOTE | 2017-12-13 06:21 | ED ---
HPI General Chief Complaint: Shortness of Breath/Dyspnea Stated Complaint: Diff Breathing Time Seen by Provider: 12/13/17 06:05 History of Present Illness HPI narrative: 42-year-old male presents the emergency department with chest pain and shortness of breath. He was receiving chemotherapy for non-Hodgkin's T-cell lymphoma but was in remission Over the for 4 days he has gotten progressive worsening of his symptoms after being diagnosed with recurrence. Patient extremely uncomfortable and feels as if he has an effusion. Complete Quality Measures for STEMI Alert Patients Related Data Home Medications Medication Instructions Recorded Confirmed Xarelto 15 mg PO DAILY 12/13/17 12/13/17 albuterol sulfate 2 puff INHALATION Q4-6H PRN 12/13/17 12/13/17 morphine 30 mg PO BID PRN 12/13/17 12/13/17 prednisone 20 mg PO DAILY 12/13/17 12/13/17 Allergies Allergy/AdvReac Type Severity Reaction Status Date / Time No Known Allergies Allergy Verified 12/13/17 05:45 Review of Systems Except as stated in HPI: all other systems reviewed are negative [facility] Medical History Medical History Hx of blood clots (Acute) Lymphoma (Acute) Social History Social History Substance History: No History of Abuse Smoking Status: Never smoker How Often Do You Have a Drink Containing Alcohol: Never Recent Travel in [facility] within the Last 8 Weeks: No Recent Out of Country Travel within the Last 8 Weeks: No Immunization History Tetanus Immunization: <5 Years Exam Narrative Exam Narrative: GENERAL: 42-year-old male in acute distress. SKIN: Focused skin assessment warm/dry. HEAD: Atraumatic. Normocephalic. EYES: Pupils equal and round. No scleral icterus. No injection or drainage. ENT: No nasal bleeding or discharge. Mucous membranes pink and moist. NECK: Trachea midline. No JVD. CARDIOVASCULAR: Regular rate and rhythm. No murmur appreciated. RESPIRATORY: Coarse breath sounds and scattered rhonchi bilaterally. GASTROINTESTINAL: Abdomen soft, non-tender, nondistended. Hepatic and splenic margins not palpable. MUSCULOSKELETAL: No obvious deformities. No clubbing. No cyanosis. No edema. Course Initial Documented Vital Signs Temperature 98.2 F 12/13/17 05:43 Pulse Rate 115 H 12/13/17 05:43 Respiratory Rate 30 H 12/13/17 05:43 Blood Pressure 133/89 12/13/17 05:43 Pulse Oximetry 91 L 12/13/17 05:43 Last Documented Vital Signs Temperature 98.2 F 12/13/17 05:43 Pulse Rate 104 H 12/13/17 06:45 Respiratory Rate 18 12/13/17 06:51 Blood Pressure 130/88 12/13/17 06:45 Pulse Oximetry 93 L 12/13/17 06:45 Sign Out Sign Out Data: Patient Sign Out occurred on 12/13/17 at 07:22. Patient's care was discussed, and care was transferred from Laura Holbrook to Matteo Reed DO. Sign Out Comment: Patient with recurrent Non-Hodgkin T-cell lymphoma pending laboratory studies Dr Maria Last updated by Laura Holbrook at 12/13/17 07:18 Medical Decision Making MDM Narrative Medical decision making narrative: Patient with large pleural effusion and no hypoxemia or hypercapnia on ABGs. No leukocytosis. He does have Hodgkin's lymphoma and appears that his effusion has been persistent. He is O2 saturation improve on 4 L. 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 Patient does not appear septic. Lab Data Lab results reviewed: Yes I reviewed the patient's lab results. Result diagrams: 12/13/17 06:10 12/13/17 06:10 Lab Results 12/13/17 12/13/17 12/13/17 Range/Units 06:10 06:10 06:10 WBC 7.8 (4.0-11.0) th/mm3 RBC 5.27 (4.50-5.90) mil/mm3 Hgb 14.5 (13.0-17.0) gm/dL Hct 43.6 (39.0-51.0) % MCV 82.7 (80.0-100.0) fL MCH 27.4 (27.0-34.0) pg MCHC 33.2 (32.0-36.0) % RDW 16.7 (11.6-17.2) % Plt Count 279 (150-450) th/mm3 MPV 7.2 (7.0-11.0) fL Neut % (Auto) 77.9 H (16.0-70.0) % Lymph % (Auto) 6.9 L (9.0-44.0) % Broome % (Auto) 13.5 H (0.0-8.0) % Eos % (Auto) 1.2 (0.0-4.0) % Baso % (Auto) 0.5 (0.0-2.0) % Neut # (Auto) 6.1 (1.8-7.7) th/mm3 Lymph # (Auto) 0.5 L (1.0-4.8) th/mm3 Broome # (Auto) 1.1 H (0.0-0.9) th/mm3 Eos # (Auto) 0.1 (0.0-0.4) th/mm3 Baso # (Auto) 0.0 (0.0-0.2) th/mm3 WBC Differential . Differential Comment Auto diff final PT 10.6 (9.8-11.6) sec INR 1.0 Ratio APTT 25.5 (24.3-30.1) sec Puncture Site Patient Temperature O2 Saturation (90-100) % ABG pH (7.380-7.420) ABG pCO2 (38-42) mmHg ABG pO2 (61-120) mmHg ABG HCO3 (22-26) mmol/L ABG O2 Content (12.0-20.0) Vol % ABG Base Excess (-2-2) mmol/L ABG Methemoglobin (0-2) % Albert Test Hemoglobin (12.0-16.0) G/DL Carboxyhemoglobin (0-4) % O2 Delivery Device Liter Flow L/M Inspired O2 % Critical Value Sodium 139 (136-145) meq/L Potassium 3.3 L (3.5-5.1) meq/L Chloride 99 (98-107) meq/L Carbon Dioxide 29.2 (21.0-32.0) meq/L Anion Gap 11 (5-15) meq/L BUN 14 (7-18) mg/dL Creatinine 1.08 (0.60-1.30) mg/dL Estimated GFR 75 L (>89) mL/min Random Glucose 107 H (74-106) mg/dL Calcium 9.5 (8.5-10.1) mg/dL Total Bilirubin 0.3 (0.2-1.0) mg/dL AST 27 (15-37) U/L ALT 39 (12-78) U/L Alkaline Phosphatase 81 (45-117) U/L Total Protein 6.9 (6.4-8.2) g/dL Albumin 3.3 L (3.4-5.0) g/dL 12/13/17 Range/Units 08:20 WBC (4.0-11.0) th/mm3 RBC (4.50-5.90) mil/mm3 Hgb (13.0-17.0) gm/dL Hct (39.0-51.0) % MCV (80.0-100.0) fL MCH (27.0-34.0) pg MCHC (32.0-36.0) % RDW (11.6-17.2) % Plt Count (150-450) th/mm3 MPV (7.0-11.0) fL Neut % (Auto) (16.0-70.0) % Lymph % (Auto) (9.0-44.0) % Broome % (Auto) (0.0-8.0) % Eos % (Auto) (0.0-4.0) % Baso % (Auto) (0.0-2.0) % Neut # (Auto) (1.8-7.7) th/mm3 Lymph # (Auto) (1.0-4.8) th/mm3 [place]ome # (Auto) (0.0-0.9) th/mm3 Eos # (Auto) (0.0-0.4) th/mm3 Baso # (Auto) (0.0-0.2) th/mm3 WBC Differential Differential Comment PT (9.8-11.6) sec INR Ratio APTT (24.3-30.1) sec Puncture Site Right radial Patient Temperature 98.6 O2 Saturation 95 (90-100) % ABG pH 7.47 H (7.380-7.420) ABG pCO2 42 (38-42) mmHg ABG pO2 90 (61-120) mmHg ABG HCO3 30 H (22-26) mmol/L ABG O2 Content 18.7 (12.0-20.0) Vol % ABG Base Excess 6.3 H (-2-2) mmol/L ABG Methemoglobin 0.7 (0-2) % Albert Test Present Hemoglobin 13.9 (12.0-16.0) G/DL Carboxyhemoglobin 1.3 (0-4) % O2 Delivery Device Nasal cannula Liter Flow 4.00 L/M Inspired O2 21 % Critical Value No Sodium (136-145) meq/L Potassium (3.5-5.1) meq/L Chloride (98-107) meq/L Carbon Dioxide (21.0-32.0) meq/L Anion Gap (5-15) meq/L BUN (7-18) mg/dL Creatinine (0.60-1.30) mg/dL Estimated GFR (>89) mL/min Random Glucose (74-106) mg/dL Calcium (8.5-10.1) mg/dL Total Bilirubin (0.2-1.0) mg/dL AST (15-37) U/L ALT (12-78) U/L Alkaline Phosphatase (45-117) U/L Total Protein (6.4-8.2) g/dL Albumin (3.4-5.0) g/dL Imaging Data Attestation: I personally reviewed and interpreted this imaging study as follows : My impression: Complete opacification of the right hemithorax. No signs of pneumothorax Radiologist's impression: Chest X-Ray 12/13/17 06:05 CONCLUSION: Discharge Plan Discharge Disposition Patient Disposition: 30 Still Patient Discharge Condition Condition: Stable Discharge Details Diagnosis: Respiratory failure, [id number], Pleural effusion, Non-Hodgkin's lymphoma in adult Physicians Team ED Provider: Matteo Reed Primary Care Provider: Bienvenido Guzman Rxs /Orders / Referrals /Forms Prescriptions: No Action prednisone 20 mg Tablet 20 mg PO DAILY RF: 0 Xarelto tablet 15 mg PO DAILY RF: 0 morphine 30 mg Tablet 30 mg PO BID PRN (Reason: Pain) RF: 0 albuterol sulfate 90 mcg/actuation Hfa Aerosol Inhaler 2 puff Inhalation Q4-6H PRN (Reason: Shortness Of Breath Or Wheezing) RF: 0 Discharge Interventions Interventions: Vital Signs Last Done: 12/13/17 06:45 Status ED Status: With Doctor
--- NOTE | 2017-12-13 06:27 | XR ---
EXAM DATE: 12/13/2017 6:24 AM EDT AGE/SEX: 42 years / Male INDICATIONS: Chest pain. CLINICAL DATA: This is the patient's initial encounter. Patient reports that signs and symptoms have been present for 4 - 6 days and indicates a pain score of 10/10. MEDICAL/SURGICAL HISTORY: . Lymphoma. None. COMPARISON: PCI, XR CHEST PA AND LAT, 12/12/2017. . FINDINGS: Persistent complete opacification of the right hemithorax. No significant mediastinal shift. Left miguel g is clear. Cardiomegaly mediastinal contours are stable. Remainder of the exam is unchanged. CONCLUSION: 1. No significant interval change with persistent complete opacification of the right hemithorax. Electronically signed by: Ash Stover MD 12/13/2017 6:26 AM EDT
[2017-12-13] MEDS ORDERED: Morphine Inj 4 MG/ML Vial IV.PUSH ONE ×4 (06:30→17:00)
[2017-12-13 06:41] LABS: Baso % (Auto) 0.5 % (0.0-2.0); Eos # (Auto) 0.1 th/mm3 (0.0-0.4); Eos % (Auto) 1.2 % (0.0-4.0); Hematocrit 43.6 % (39.0-51.0); Hemoglobin 14.5 gm/dL (13.0-17.0); Lymph # (Auto) 0.5 th/mm3 (1.0-4.8); Lymph % (Auto) 6.9 % (9.0-44.0); Mean Corpuscular HGB Conc 33.2 % (32.0-36.0); Mean Corpuscular Hemoglobin 27.4 pg (27.0-34.0); Mean Corpuscular Volume 82.7 fL (80.0-100.0); Mean Platelet Volume 7.2 fL (7.0-11.0); Mono # (Auto) 1.1 th/mm3 (0.0-0.9); Mono % (Auto) 13.5 % (0.0-8.0); Neut # (Auto) 6.1 th/mm3 (1.8-7.7); Neut % (Auto) 77.9 % (16.0-70.0); Platelet Count 279 th/mm3 (150-450); Red Blood Count 5.27 mil/mm3 (4.50-5.90); Red Cell Distribution Width 16.7 % (11.6-17.2); White Blood Count 7.8 th/mm3 (4.0-11.0)
[2017-12-13 06:45] LABS: Activated Partial Thrombo Time 25.5 sec (24.3-30.1); Prothrombin Time 10.6 sec (9.8-11.6)
[2017-12-13 06:55] LABS: Alanine Aminotransferase 39 U/L (12-78); Alkaline Phosphatase 81 U/L (45-117); Total Protein 6.9 g/dL (6.4-8.2)
[2017-12-13 07:00] LABS: Albumin 3.3 g/dL (3.4-5.0); Anion Gap 11 meq/L (5-15); Aspartate Aminotransferase 27 U/L (15-37); Blood Urea Nitrogen 14 mg/dL (7-18); Calcium 9.5 mg/dL (8.5-10.1); Carbon Dioxide 29.2 meq/L (21.0-32.0); Chloride 99 meq/L (98-107); Glomerular Filtration Rate 75 mL/min (>89); Glucose,Random 107 mg/dL (74-106); Potassium 3.3 meq/L (3.5-5.1); Sodium 139 meq/L (136-145)
[2017-12-13 08:33] LABS: ABG Base Excess 6.3 mmol/L (-2-2); ABG PCO2 42 mmHg (38-42); ABG PO2 90 mmHg (61-120)
[2017-12-13] MEDS ORDERED: Morphine Sulfate 30 MG IR Tablet PO PRN (10:20)
[2017-12-13] MEDS ORDERED: Bisacodyl 10 MG Supp RECTAL PRN (10:20)
[2017-12-13] MEDS ORDERED: Potassium Chloride 10 MEQ ER Capsule PO ONE (10:23)
--- NOTE | 2017-12-13 12:18 | ECG ---
Date Performed: 12/13/2017 Time Performed: 05:57:18 PTAGE: 42 years EKG: SINUS TACHYCARDIA POSSIBLE RIGHT VENTRICULAR CONDUCTION DELAY NONSPECIFIC ST & T-WAVE ABNOR MALITY ABNORMAL RHYTHM ECG PREVIOUS TRACING 10/05/17 13.34 Since the previous tracing, no significant change noted DOCTOR: Marty Faustin Interpretating Date/Time 12/13/2017 12:16:15
[2017-12-13] MEDS ORDERED: MethylPREDNISolone Sod Succinate Inj 40 MG/ML Vial IV.PUSH SCH ×2 (13:00→16:00)
[2017-12-13] MEDS ORDERED: Enoxaparin Inj 40 MG/0.4 ML Syringe SQ SCH (13:00)
[2017-12-13 13:09] LABS: Prothrombin Time 10.5 sec (9.8-11.6)
--- NOTE | 2017-12-13 14:13 | P.HPFP ---
History of Present Illness Primary Care Physician: Bienvenido Guzman MD <ArnaudAdele - 12/14/17 00:09> Bienvenido Guzman MD <GentryjustinWilliamsmell 12/13/17 14:13> Chief Complaint: Shortness of breath <GentrynickazulWilliamsmell 12/13/17 14:13> History of Present Illness: Pt is a pleasant 42-year-old male with a hx of non- hodgkin lymphoma who presents the emergency department with chest pain and shortness of breath. He states that 2 days ago he started having tightness in his chest that would worsen with positioning himself on the R side, along with SOB that worsens with laying on his R side, and with taking deep breaths. Pt states that these sxs are very similar to the other times he has had pleural effusion that required Thoracocentesis. He state that his last thoracocentesis was 2 weeks ago and 1000 cc fluid was removed. Pt was diagnosed with non-Hodgkin 's T cell lymphoma April last year, had been in remission following chemotherapy until several weeks ago. He is a patient of Dr. Leigh, and states that he will soon have a port place for new round of chemo. Denies, diaphoresis, Fever, chills, nausea, vomiting, abdominal pain, melena, hematochezia. <GentryjustinWilliamsmell 12/13/17 14:13> Inpatient Certification: I certify that the inpatient services were ordered in accordance with Medicare regulations governing the order. This includes certification that hospital inpatient services are reasonable and necessary and in the case of services not specified as inpatient-only under 42 CFR 419.22(n), that they are appropriately provided as inpatient services in accordance to with the 2-midnight benchmark under 43 CFR 412.3(e) <RandinateAdele - 12/14/17 00:09> I certify that the inpatient services were ordered in accordance with Medicare regulations governing the order. This includes certification that hospital inpatient services are reasonable and necessary and in the case of services not specified as inpatient-only under 42 CFR 419.22(n), that they are appropriately provided as inpatient services in accordance to with the 2-midnight benchmark under 43 CFR 412.3(e) <ElenitaWilliamsmell 12/13/17 14:13> Estimated Total Length of Stay (Days): 4 <Daron Kwong 12/13/17 14:13> Plans for Post Hospital Care: Not yet determined <Daron Kwong 14:13> Review of Systems All other systems reviewed negative except as stated in HPI <Daron Kwong 12/13/17 14:13> PMFSH - History History Provided By: Patient <Daron Kwong 12/13/17 14:13> - Medical History Medical History: Medical History (Last Reviewed 12/13/17 @ 08:05 by Matteo Reed DO) Hx of blood clots Lymphoma <Adele Lares - 12/14/17 00:04> Medical History (Last Reviewed 12/13/17 @ 08:05 by Matteo Reed DO) Hx of blood clots Lymphoma <GentryjustinWilliamsmell 12/13/17 14:13> - Tobacco History Smoking Status: Never smoker <GentrynickDaron liang 12/13/17 14:13> - Alcohol History How Often Do You Have a Drink Containing Alcohol: Never <Daron Kwong 12/13/17 14:13> - Substance Use History Substance History: No History of Abuse <GentrynickWilliams liangalferdcatrachita 12/13/17 14:13> - Travel History Recent Travel in the [facility] Within the Last 8 Weeks: No <Daron Kwong 14:13> Recent Travel Out of the Country Within the Last 8 Weeks: No <GentrynickDaron liang 12/13/17 14:13> - Immunization History Tetanus Immunization: <5 Years <GentrynickDaron liang 12/13/17 14:13> Medications and Allergies Allergies Allergy/AdvReac Type Severity Reaction Status Date / Time No Known Allergies Allergy Verified 12/13/17 05:45 <Adele Lares - 12/14/17 00:09> Home Medications Medication Instructions Recorded Confirmed Type Xarelto 15 mg PO DAILY 12/13/17 12/13/17 History albuterol sulfate 2 puff INHALATION Q4-6H PRN 12/13/17 12/13/17 History morphine 30 mg PO BID PRN 12/13/17 12/13/17 History prednisone 20 mg PO DAILY 12/13/17 12/13/17 History <Cosma,Adele - 12/14/17 00:09> Active Medications: Active Medications Al Hydroxide/Mg Hydroxide (Milk Of Magnesia Liq) 30 ml PO Q12H PRN PRN Reason: Mild Constipation Albuterol (Duoneb Neb (Suzan)) 1 ampul NEB Q6HR WHILE AWAKE NEB [facility] Last Admin: 12/13/17 20:41 Dose: 1 ampul Albuterol (Duoneb Neb (Prn)) 1 ampul NEB Q2HR NEB PRN PRN Reason: sob/wheezing Bisacodyl (Dulcolax Supp) 10 mg RECTAL DAILY PRN PRN Reason: SEVERE CONSITIPATION Furosemide (Lasix) 20 mg PO DAILY SUZAN Lactulose (Lactulose Liq) 30 ml PO DAILY PRN PRN Reason: SEVERE CONSITIPATION Lorazepam (Ativan) 0.5 mg PO Q6H PRN PRN Reason: ANXIETY Methylprednisolone Sodium Succinate (Solumedrol Inj) 40 mg IV.PUSH Q12HR [facility] Metoclopramide HCl (Reglan Inj) 5 mg IV.PUSH Q6H PRN; Protocol PRN Reason: NAUSEA OR VOMITING Morphine Sulfate (Morphine Inj) 8 mg IV.PUSH Q3HR [facility] Stop: 12/14/17 22:59 Rivaroxaban (Xarelto) 15 mg PO DAILY@1200 [facility] Senna/Docusate Sodium (Naa-Colace) 2 tab PO BID [facility] Sennosides (Senokot) 17.2 mg PO Q12H PRN PRN Reason: Moderate Constipation Temazepam (Restoril) 15 mg PO HS PRN PRN Reason: INSOMNIA Voriconazole (Vfend) 200 mg PO DAILY SUZAN <Cosma,Adele - 12/14/17 00:09> Active Medications Al Hydroxide/Mg Hydroxide (Milk Of Magnesia Liq) 30 ml PO Q12H PRN PRN Reason: Mild Constipation Albuterol (Duoneb Neb (Suzan)) 1 ampul NEB Q6HR WHILE AWAKE NEB [facility] Last Admin: 12/13/17 13:04 Dose: 1 ampul Albuterol (Duoneb Neb (Prn)) 1 ampul NEB Q2HR NEB PRN PRN Reason: sob/wheezing Bisacodyl (Dulcolax Supp) 10 mg RECTAL DAILY PRN PRN Reason: SEVERE CONSITIPATION Lactulose (Lactulose Liq) 30 ml PO DAILY PRN PRN Reason: SEVERE CONSITIPATION Methylprednisolone Sodium Succinate (Solumedrol Inj) 40 mg IV.PUSH Q6H SUZAN Metoclopramide HCl (Reglan Inj) 5 mg IV.PUSH Q6HR PRN; Protocol PRN Reason: NAUSEA OR VOMITING Morphine Sulfate (Msir) 30 mg PO BID PRN PRN Reason: Pain 1-10 Rivaroxaban (Xarelto) 15 mg PO DAILY SUZAN Senna/Docusate Sodium (Naa-Colace) 1 tab PO BID SUZAN Sennosides (Senokot) 17.2 mg PO Q12H PRN PRN Reason: Moderate Constipation Temazepam (Restoril) 15 mg PO HS PRN PRN Reason: INSOMNIA <Daron Kwong - 12/13/17 14:13> Exam Vital signs: Vital Signs 12/13/17 05:43 12/13/17 05:54 12/13/17 06:45 Temperature 98.2 F Pulse Rate 115 H 114 H 104 H Respiratory Rate 30 H 20 24 Blood Pressure 133/89 130/88 130/88 Pulse Oximetry 91 L 93 L 93 L 12/13/17 06:51 12/13/17 10:20 12/13/17 13:00 Temperature Pulse Rate 102 H 104 H Respiratory Rate 18 26 H 20 Blood Pressure 137/81 137/88 Pulse Oximetry 12/13/17 13:06 12/13/17 13:40 12/13/17 14:20 Temperature 98.6 F Pulse Rate 115 H 112 H Respiratory Rate 17 7 L 20 Blood Pressure 127/82 Pulse Oximetry 96 94 L 12/13/17 15:00 12/13/17 17:15 12/13/17 20:41 Temperature 97.8 F Pulse Rate 107 H 104 H Respiratory Rate 20 18 16 Blood Pressure 129/89 Pulse Oximetry 92 L 91 L Intake & Output 12/13/17 12/13/17 12/14/17 06:59 18:59 06:59 Intake Total 480 / 480 Balance 480 / 480 Weight 93.894 kg Intake: Oral 480 / 480 <CosmnateAdele - 12/14/17 00:09> Vital Signs 12/13/17 05:43 12/13/17 05:54 12/13/17 06:45 Temperature 98.2 F Pulse Rate 115 H 114 H 104 H Respiratory Rate 30 H 20 24 Blood Pressure 133/89 130/88 130/88 Pulse Oximetry 91 L 93 L 93 L 12/13/17 06:51 12/13/17 10:20 12/13/17 13:00 Temperature Pulse Rate 102 H 104 H Respiratory Rate 18 26 H 20 Blood Pressure 137/81 137/88 Pulse Oximetry 12/13/17 13:06 Temperature Pulse Rate 115 H Respiratory Rate 17 Blood Pressure Pulse Oximetry 96 Intake & Output 12/12/17 12/13/17 12/13/17 18:59 06:59 18:59 Weight 93.894 kg <Daron Kwong - 12/13/17 14:13> Narrative: GENERAL: well developed, well nourished, in mild distress secondary to pain. SKIN: Warm and dry. HEAD: Atraumatic. Normocephalic. EYES: Pupils equal and round. No scleral icterus. No injection or drainage. ENT: No nasal bleeding or discharge. Mucous membranes pink and moist. NECK: Trachea midline. No JVD. CARDIOVASCULAR: Regular rate and rhythm. RESPIRATORY: No accessory muscle use.Decrease breath sound on the R upper , mid , and lower lobe with scattered rales GASTROINTESTINAL: Abdomen soft, non-tender, nondistended. Hepatic and splenic margins not palpable. MUSCULOSKELETAL: Extremities without clubbing, cyanosis, or edema. No obvious deformities. NEUROLOGICAL: Awake and alert. No obvious cranial nerve deficits. Motor grossly within normal limits. Five out of 5 muscle strength in the arms and legs. Normal speech. PSYCHIATRIC: Appropriate mood and affect; insight and judgment normal. <Daron Kwong - 12/13/17 14:13> - Constitutional no acute distress <Daron Kwong - 12/13/17 14:13> Results - Labs Result diagrams: 12/13/17 06:10 12/13/17 06:10 <Adele Lares - 12/14/17 00:09> Abnormal lab results 12/13/17 12/13/17 12/13/17 Range/Units 06:10 06:10 08:20 Neut % (Auto) 77.9 H (16.0-70.0) % Lymph % (Auto) 6.9 L (9.0-44.0) % Jack % (Auto) 13.5 H (0.0-8.0) % Lymph # (Auto) 0.5 L (1.0-4.8) th/mm3 Jack # (Auto) 1.1 H (0.0-0.9) th/mm3 ABG pH 7.47 H (7.380-7.420) ABG HCO3 30 H (22-26) mmol/L ABG Base Excess 6.3 H (-2-2) mmol/L Potassium 3.3 L (3.5-5.1) meq/L Estimated GFR 75 L (>89) mL/min Random Glucose 107 H (74-106) mg/dL Albumin 3.3 L (3.4-5.0) g/dL Pleural RBC (0-0) /mm3 Pleural Nuc Cells (0-10) /mm3 12/13/17 Range/Units 14:41 Neut % (Auto) (16.0-70.0) % Lymph % (Auto) (9.0-44.0) % Jack % (Auto) (0.0-8.0) % Lymph # (Auto) (1.0-4.8) th/mm3 Jack # (Auto) (0.0-0.9) th/mm3 ABG pH (7.380-7.420) ABG HCO3 (22-26) mmol/L ABG Base Excess (-2-2) mmol/L Potassium (3.5-5.1) meq/L Estimated GFR (>89) mL/min Random Glucose (74-106) mg/dL Albumin (3.4-5.0) g/dL Pleural RBC 9944 H (0-0) /mm3 Pleural Nuc Cells 4983 H (0-10) /mm3 Short CBC 12/13/17 Range/Units 06:10 WBC 7.8 (4.0-11.0) th/mm3 Hgb 14.5 (13.0-17.0) gm/dL Hct 43.6 (39.0-51.0) % Plt Count 279 (150-450) th/mm3 BMP 12/13/17 06:10 Sodium 139 Potassium 3.3 L Chloride 99 Carbon Dioxide 29.2 BUN 14 Creatinine 1.08 Calcium 9.5 Liver Function 12/13/17 Range/Units 06:10 Total Bilirubin 0.3 (0.2-1.0) mg/dL AST 27 (15-37) U/L ALT 39 (12-78) U/L Alkaline Phosphatase 81 (45-117) U/L Albumin 3.3 L (3.4-5.0) g/dL <RandiAdele sullivan - 12/14/17 00:09> Abnormal lab results 12/13/17 12/13/17 12/13/17 Range/Units 06:10 06:10 08:20 Neut % (Auto) 77.9 H (16.0-70.0) % Lymph % (Auto) 6.9 L (9.0-44.0) % Jack % (Auto) 13.5 H (0.0-8.0) % Lymph # (Auto) 0.5 L (1.0-4.8) th/mm3 Jack # (Auto) 1.1 H (0.0-0.9) th/mm3 ABG pH 7.47 H (7.380-7.420) ABG HCO3 30 H (22-26) mmol/L ABG Base Excess 6.3 H (-2-2) mmol/L Potassium 3.3 L (3.5-5.1) meq/L Estimated GFR 75 L (>89) mL/min Random Glucose 107 H (74-106) mg/dL Albumin 3.3 L (3.4-5.0) g/dL Short CBC 12/13/17 Range/Units 06:10 WBC 7.8 (4.0-11.0) th/mm3 Hgb 14.5 (13.0-17.0) gm/dL Hct 43.6 (39.0-51.0) % Plt Count 279 (150-450) th/mm3 BMP 12/13/17 06:10 Sodium 139 Potassium 3.3 L Chloride 99 Carbon Dioxide 29.2 BUN 14 Creatinine 1.08 Calcium 9.5 Liver Function 12/13/17 Range/Units 06:10 Total Bilirubin 0.3 (0.2-1.0) mg/dL AST 27 (15-37) U/L ALT 39 (12-78) U/L Alkaline Phosphatase 81 (45-117) U/L Albumin 3.3 L (3.4-5.0) g/dL <Daron Kwong - 12/13/17 14:13> - Imaging Impressions Chest X-Ray 12/13/17 00:00 CONCLUSION: 1. No pneumothorax status post thoracentesis. 2. The right lung remains completely opacified. Thoracentesis Ultrasound 12/13/17 00:00 CONCLUSION: 1. Successful ultrasound-guided right thoracentesis. Chest X-Ray 12/13/17 06:05 CONCLUSION: 1. No significant interval change with persistent complete opacification of the right hemithorax. <Adele Lares - 12/14/17 00:09> Impressions Chest X-Ray 12/13/17 06:05 CONCLUSION: 1. No significant interval change with persistent complete opacification of the right hemithorax. <Daron Kwong - 12/13/17 14:13> Caprinazul VTE Risk Assessment Cappee VTE Risk Assessment: Moderate/High Risk (score >= 2) <Adele aLres - 12/14/17 00:09> Cappee Risk Assessment Model: Point Value = 1 Point Value = 2 Point Value = 3 Point Value = 5 Age 41-60 Minor surgery BMI > 25 kg/m2 Swollen legs Varicose veins or History of unexplained or recurrent spontaneous Oral contraceptives or hormone replacement Sepsis (< 1 month) Serious lung disease, including pneumonia (< 1 month) Abnormal pulmonary function Acute myocardial infarction Congestive heart failure (< 1 month) History of inflammatory bowel disease Medical patient at bed rest Age 61-74 Arthroscopic surgery Major open surgery (> 45 min) Laparoscopic surgery (> 45 min) Malignancy Confined to bed (> 72 hours) Immobilizing plaster cast Central venous access Age >= 75 History of VTE Family history of VTE Factor V Leiden Prothrombin [id number] Lupus anticoagulant Anticardiolipin antibodies Elevated serum homocysteine Heparin-induced thrombocytopenia Other congenital or acquired thrombophilia Stroke (< 1 month) Elective arthroplasty Hip, pelvis, or leg fracture Acute spinal cord injury (< 1 month) <CosmnateAdele - 12/14/17 00:09> Point Value = 1 Point Value = 2 Point Value = 3 Point Value = 5 Age 41-60 Minor surgery BMI > 25 kg/m2 Swollen legs Varicose veins or History of unexplained or recurrent spontaneous Oral contraceptives or hormone replacement Sepsis (< 1 month) Serious lung disease, including pneumonia (< 1 month) Abnormal pulmonary function Acute myocardial infarction Congestive heart failure (< 1 month) History of inflammatory bowel disease Medical patient at bed rest Age 61-74 Arthroscopic surgery Major open surgery (> 45 min) Laparoscopic surgery (> 45 min) Malignancy Confined to bed (> 72 hours) Immobilizing plaster cast Central venous access Age >= 75 History of VTE Family history of VTE Factor V Leiden Prothrombin [id number] Lupus anticoagulant Anticardiolipin antibodies Elevated serum homocysteine Heparin-induced thrombocytopenia Other congenital or acquired thrombophilia Stroke (< 1 month) Elective arthroplasty Hip, pelvis, or leg fracture Acute spinal cord injury (< 1 month) <Daron Kwong - 12/13/17 14:13> Prophylaxis Regimen: Total Risk Factor Score Risk Level Prophylaxis Regimen 0-1 Low Early ambulation 2 Moderate Order ONE of the following: *Sequential Compression Device (SCD) *Heparin 5000 units SQ BID 3-4 Higher Order ONE of the following medications: *Heparin 5000 units SQ TID *Enoxaparin/Lovenox 40 mg SQ daily (WT < 150 kg, CrCl > 30 mL/min) *Enoxaparin/Lovenox 30 mg SQ daily (WT < 150 kg, CrCl > 10-29 mL/min) *Enoxaparin/Lovenox 30 mg SQ BID (WT < 150 kg, CrCl > 30 mL/min) AND/OR *Sequential Compression Device (SCD) 5 or more Highest Order ONE of the following medications: *Heparin 5000 units SQ TID (Preferred with Epidurals) *Enoxaparin/Lovenox 40 mg SQ daily (WT < 150 kg, CrCl > 30 mL/min) *Enoxaparin/Lovenox 30 mg SQ daily (WT < 150 kg, CrCl > 10-29 mL/min) *Enoxaparin/Lovenox 30 mg SQ BID (WT < 150 kg, CrCl > 30 mL/min) AND *Sequential Compression Device (SCD) <Tai Laresela - 12/14/17 00:09> Total Risk Factor Score Risk Level Prophylaxis Regimen 0-1 Low Early ambulation 2 Moderate Order ONE of the following: *Sequential Compression Device (SCD) *Heparin 5000 units SQ BID 3-4 Higher Order ONE of the following medications: *Heparin 5000 units SQ TID *Enoxaparin/Lovenox 40 mg SQ daily (WT < 150 kg, CrCl > 30 mL/min) *Enoxaparin/Lovenox 30 mg SQ daily (WT < 150 kg, CrCl > 10-29 mL/min) *Enoxaparin/Lovenox 30 mg SQ BID (WT < 150 kg, CrCl > 30 mL/min) AND/OR *Sequential Compression Device (SCD) 5 or more Highest Order ONE of the following medications: *Heparin 5000 units SQ TID (Preferred with Epidurals) *Enoxaparin/Lovenox 40 mg SQ daily (WT < 150 kg, CrCl > 30 mL/min) *Enoxaparin/Lovenox 30 mg SQ daily (WT < 150 kg, CrCl > 10-29 mL/min) *Enoxaparin/Lovenox 30 mg SQ BID (WT < 150 kg, CrCl > 30 mL/min) AND *Sequential Compression Device (SCD) <Daron Kwong - 12/13/17 14:13> Assessment and Plan - Assessment and Plan Patiet was seen and examined. Case discussed at length with MS IV , Miss Daron Rinaldinickazul Note above reviewed and agree <Adele Lares - 12/14/17 00:09> Respiratory Distress secondary to Pleural Effusion: CXR reveals significant pleural effusion of R lung. will be put on DuoNeb, salmeterol, steroids and Lasix will be initiated and Thoracocentesis will be done. Non-Hodgkin T cell lymphoma: pt was in remission until recently. Is under the care of Dr Leigh, which per pt, will initiate chemotherapy after port placement soon next week. <Daron Kwong - 12/13/17 14:13>
[2017-12-13] MEDS ORDERED: Lidocaine PF 1% Inj 10 ML Amp ONE (14:51)
--- NOTE | 2017-12-13 15:03 | XR ---
EXAM DATE: 12/13/2017 2:56 PM EDT AGE/SEX: 42 years / Male INDICATIONS: Right side thoracentesis. CLINICAL DATA: This is the patient's initial encounter. Patient reports that signs and symptoms have been present for 1 day and indicates a pain score of 0/10. MEDICAL/SURGICAL HISTORY: None. None. COMPARISON: PCI, XR CHEST PA AND LAT, 12/12/2017. . FINDINGS: A single AP erect portable expiratory view the chest was obtained and demonstrates no evidence of a p neumothorax. The right hemithorax remains completely opacified. The left lung is clear. There is no d efinite midline shift. The bony thorax is intact. There are overlying electrocardiogram leads. CONCLUSION: 1. No pneumothorax status post thoracentesis. 2. The right lung remains completely opacified. Electronically signed by: Terence Dominguez MD 12/13/2017 3:02 PM EDT
[2017-12-13] MEDS ORDERED: Morphine Inj 4 MG/ML Vial IV.PUSH PRN ×2 (15:15→19:53)
--- NOTE | 2017-12-13 15:19 | P.HP ---
History of Present Illness Primary Care Physician: Bienvenido Guzman MD Chief Complaint: Shortness of breath History of Present Illness: Pt is a pleasant 42-year-old male with a hx of non-hodgkin lymphoma who presents the emergency department with chest pain and shortness of breath. He states that 2 days ago he started having tightness in his chest that would worsen with positioning himself on the R side, along with SOB that worsens with laying on his R side, and with taking deep breaths. Pt states that these sxs are very similar to the other times he has had pleural effusion that required Thoracocentesis. He state that his last thoracocentesis was 2 weeks ago and 1000 cc fluid was removed. Pt was diagnosed with non-Hodgkin's T cell lymphoma April last year, had been in remission following chemotherapy until several weeks ago. He is a patient of Dr. Leigh, and states that he will soon have a port place for new round of chemo. Denies, diaphoresis, Fever, chills, nausea, vomiting, abdominal pain, melena, hematochezia. Inpatient Certification: I certify that the inpatient services were ordered in accordance with Medicare regulations governing the order. This includes certification that hospital inpatient services are reasonable and necessary and in the case of services not specified as inpatient-only under 42 CFR 419.22(n), that they are appropriately provided as inpatient services in accordance to with the 2-midnight benchmark under 43 CFR 412.3(e) Estimated Total Length of Stay (Days): 4 Plans for Post Hospital Care: Not yet determined PMFSH - History History Provided By: Patient - Medical History Medical History: Medical History (Last Reviewed 12/13/17 @ 08:05 by Matteo Reed DO) Hx of blood clots Lymphoma - Tobacco History Smoking Status: Never smoker - Alcohol History How Often Do You Have a Drink Containing Alcohol: Never - Substance Use History Substance History: No History of Abuse - Travel History Recent Travel in the [place] Within the Last 8 Weeks: No Recent Travel Out of the Country Within the Last 8 Weeks: No - Immunization History Tetanus Immunization: <5 Years Medications and Allergies Active Medications: Active Medications Al Hydroxide/Mg Hydroxide (Milk Of Magnaleks Liq) 30 ml PO Q12H PRN PRN Reason: Mild Constipation Albuterol (Duoneb Neb (Suzan)) 1 ampul NEB Q6HR WHILE AWAKE NEB SUZAN Last Admin: 12/13/17 13:04 Dose: 1 ampul Albuterol (Duoneb Neb (Prn)) 1 ampul NEB Q2HR NEB PRN PRN Reason: sob/wheezing Bisacodyl (Dulcolax Supp) 10 mg RECTAL DAILY PRN PRN Reason: SEVERE CONSITIPATION Lactulose (Lactulose Liq) 30 ml PO DAILY PRN PRN Reason: SEVERE CONSITIPATION Methylprednisolone Sodium Succinate (Solumedrol Inj) 40 mg IV.PUSH Q8H SUZAN Metoclopramide HCl (Reglan Inj) 5 mg IV.PUSH Q6HR PRN; Protocol PRN Reason: NAUSEA OR VOMITING Morphine Sulfate (Msir) 30 mg PO BID PRN PRN Reason: Pain 1-10 Morphine Sulfate (Morphine Inj) 2 mg IV.PUSH Q4H PRN PRN Reason: breakthrpugh pain Rivaroxaban (Xarelto) 15 mg PO DAILY [facility] Senna/Docusate Sodium (Naa-Colace) 2 tab PO BID [facility] Sennosides (Senokot) 17.2 mg PO Q12H PRN PRN Reason: Moderate Constipation Temazepam (Restoril) 15 mg PO HS PRN PRN Reason: INSOMNIA Allergies Allergy/AdvReac Type Severity Reaction Status Date / Time No Known Allergies Allergy Verified 12/13/17 05:45 Home Medications Medication Instructions Recorded Confirmed Type Xarelto 15 mg PO DAILY 12/13/17 12/13/17 History albuterol sulfate 2 puff INHALATION Q4-6H PRN 12/13/17 12/13/17 History morphine 30 mg PO BID PRN 12/13/17 12/13/17 History prednisone 20 mg PO DAILY 12/13/17 12/13/17 History Exam Vital signs: Vital Signs 12/13/17 05:43 12/13/17 05:54 12/13/17 06:45 Temperature 98.2 F Pulse Rate 115 H 114 H 104 H Respiratory Rate 30 H 20 24 Blood Pressure 133/89 130/88 130/88 Pulse Oximetry 91 L 93 L 93 L 12/13/17 06:51 12/13/17 10:20 12/13/17 13:00 Temperature Pulse Rate 102 H 104 H Respiratory Rate 18 26 H 20 Blood Pressure 137/81 137/88 Pulse Oximetry 12/13/17 13:06 12/13/17 13:40 07/27/18 14:20 Temperature 98.6 F Pulse Rate 115 H 112 H Respiratory Rate 17 7 L 20 Blood Pressure 127/82 Pulse Oximetry 96 94 L Intake & Output 12/12/17 12/13/17 12/13/17 18:59 06:59 18:59 Weight 93.894 kg Results - Labs CBC & Chem 7: 12/13/17 06:10 12/13/17 06:10 Labs: Laboratory Results - last 24 hr 12/13/17 12/13/17 12/13/17 06:10 06:10 06:10 WBC 7.8 RBC 5.27 Hgb 14.5 Hct 43.6 MCV 82.7 MCH 27.4 MCHC 33.2 RDW 16.7 Plt Count 279 MPV 7.2 Neut % (Auto) 77.9 H Lymph % (Auto) 6.9 L Richardson % (Auto) 13.5 H Eos % (Auto) 1.2 Baso % (Auto) 0.5 Neut # (Auto) 6.1 Lymph # (Auto) 0.5 L Richardson # (Auto) 1.1 H Eos # (Auto) 0.1 Baso # (Auto) 0.0 WBC Differential . Differential Comment Auto diff final PT 10.6 INR 1.0 APTT 25.5 Puncture Site Patient Temperature O2 Saturation ABG pH ABG pCO2 ABG pO2 ABG HCO3 ABG O2 Content ABG Base Excess ABG Methemoglobin Albert Test Hemoglobin Carboxyhemoglobin O2 Delivery Device Liter Flow Inspired O2 Critical Value Sodium 139 Potassium 3.3 L Chloride 99 Carbon Dioxide 29.2 Anion Gap 11 BUN 14 Creatinine 1.08 Estimated GFR 75 L Random Glucose 107 H Calcium 9.5 Total Bilirubin 0.3 AST 27 ALT 39 Alkaline Phosphatase 81 Total Protein 6.9 Albumin 3.3 L 12/13/17 12/13/17 08:20 12:25 WBC RBC Hgb Hct MCV MCH MCHC RDW Plt Count MPV Neut % (Auto) Lymph % (Auto) Richardson % (Auto) Eos % (Auto) Baso % (Auto) Neut # (Auto) Lymph # (Auto) Richardson # (Auto) Eos # (Auto) Baso # (Auto) WBC Differential Differential Comment PT 10.5 INR 1.0 APTT Puncture Site Right radial Patient Temperature 98.6 O2 Saturation 95 ABG pH 7.47 H ABG pCO2 42 ABG pO2 90 ABG HCO3 30 H ABG O2 Content 18.7 ABG Base Excess 6.3 H ABG Methemoglobin 0.7 Albert Test Present Hemoglobin 13.9 Carboxyhemoglobin 1.3 O2 Delivery Device Nasal cannula Liter Flow 4.00 Inspired O2 21 Critical Value No Sodium Potassium Chloride Carbon Dioxide Anion Gap BUN Creatinine Estimated GFR Random Glucose Calcium Total Bilirubin AST ALT Alkaline Phosphatase Total Protein Albumin - Imaging Impressions Chest X-Ray 12/13/17 00:00 CONCLUSION: 1. No pneumothorax status post thoracentesis. 2. The right lung remains completely opacified. Chest X-Ray 12/13/17 06:05 CONCLUSION: 1. No significant interval change with persistent complete opacification of the right hemithorax. Caprini VTE Risk Assessment Caprini VTE Risk Assessment: Moderate/High Risk (score >= 2) Caprini Risk Assessment Model: Point Value = 1 Point Value = 2 Point Value = 3 Point Value = 5 Age 41-60 Minor surgery BMI > 25 kg/m2 Swollen legs Varicose veins or History of unexplained or recurrent spontaneous Oral contraceptives or hormone replacement Sepsis (< 1 month) Serious lung disease, including pneumonia (< 1 month) Abnormal pulmonary function Acute myocardial infarction Congestive heart failure (< 1 month) History of inflammatory bowel disease Medical patient at bed rest Age 61-74 Arthroscopic surgery Major open surgery (> 45 min) Laparoscopic surgery (> 45 min) Malignancy Confined to bed (> 72 hours) Immobilizing plaster cast Central venous access Age >= 75 History of VTE Family history of VTE Factor V Leiden Prothrombin [id number] Lupus anticoagulant Anticardiolipin antibodies Elevated serum homocysteine Heparin-induced thrombocytopenia Other congenital or acquired thrombophilia Stroke (< 1 month) Elective arthroplasty Hip, pelvis, or leg fracture Acute spinal cord injury (< 1 month) Prophylaxis Regimen: Total Risk Factor Score Risk Level Prophylaxis Regimen 0-1 Low Early ambulation 2 Moderate Order ONE of the following: *Sequential Compression Device (SCD) *Heparin 5000 units SQ BID 3-4 Higher Order ONE of the following medications: *Heparin 5000 units SQ TID *Enoxaparin/Lovenox 40 mg SQ daily (WT < 150 kg, CrCl > 30 mL/min) *Enoxaparin/Lovenox 30 mg SQ daily (WT < 150 kg, CrCl > 10-29 mL/min) *Enoxaparin/Lovenox 30 mg SQ BID (WT < 150 kg, CrCl > 30 mL/min) AND/OR *Sequential Compression Device (SCD) 5 or more Highest Order ONE of the following medications: *Heparin 5000 units SQ TID (Preferred with Epidurals) *Enoxaparin/Lovenox 40 mg SQ daily (WT < 150 kg, CrCl > 30 mL/min) *Enoxaparin/Lovenox 30 mg SQ daily (WT < 150 kg, CrCl > 10-29 mL/min) *Enoxaparin/Lovenox 30 mg SQ BID (WT < 150 kg, CrCl > 30 mL/min) AND *Sequential Compression Device (SCD) Assessment and Plan - Plan Pt is a pleasant 42-year-old male with a hx of non-hodgkin lymphoma who presents the emergency department with chest pain and shortness of breath. He states that 2 days ago he started having tightness in his chest that would worsen with positioning himself on the R side, along with SOB that worsens with laying on his R side, and with taking deep breaths. Pt states that these sxs are very similar to the other times he has had pleural effusion that required Thoracocentesis. He state that his last thoracocentesis was 2 weeks ago and 1000 cc fluid was removed. Pt was diagnosed with non-Hodgkin's T cell lymphoma April last year, had been in remission following chemotherapy until several weeks ago. He is a patient of Dr. Leigh, and states that he will soon have a port place for new round of chemo. Denies, diaphoresis, Fever, chills, nausea, vomiting, abdominal pain, melena, hematochezia. Inpatient Certification: I certify that the inpatient services were ordered in accordance with Medicare regulations governing the order. This includes certification that hospital inpatient services are reasonable and necessary and in the case of services not specified as inpatient-only under 42 CFR 419.22(n), that they are appropriately provided as inpatient services in accordance to with the 2-midnight benchmark under 43 CFR 412.3(e) Estimated Total Length of Stay (Days): 4 Plans for Post Hospital Care: Not yet determined Review of Systems All other systems reviewed negative except as stated in HPI PMFSH - History History Provided By: Patient - Medical History Medical History: Medical History (Last Reviewed 12/13/17 @ 08:05 by Matteo Reed DO) Hx of blood clots Lymphoma - Tobacco History Smoking Status: Never smoker - Alcohol History How Often Do You Have a Drink Containing Alcohol: Never - Substance Use History Substance History: No History of Abuse - Travel History Recent Travel in the [place] Within the Last 8 Weeks: No Recent Travel Out of the Country Within the Last 8 Weeks: No - Immunization History Tetanus Immunization: <5 Years Medications and Allergies Active Medications: Active Medications Al Hydroxide/Mg Hydroxide (Milk Of Magnesia Liq) 30 ml PO Q12H PRN PRN Reason: Mild Constipation Albuterol (Duoneb Neb (Suzan)) 1 ampul NEB Q6HR WHILE AWAKE NEB SUZAN Last Admin: 12/13/17 13:04 Dose: 1 ampul Albuterol (Duoneb Neb (Prn)) 1 ampul NEB Q2HR NEB PRN PRN Reason: sob/wheezing Bisacodyl (Dulcolax Supp) 10 mg RECTAL DAILY PRN PRN Reason: SEVERE CONSITIPATION Lactulose (Lactulose Liq) 30 ml PO DAILY PRN PRN Reason: SEVERE CONSITIPATION Methylprednisolone Sodium Succinate (Solumedrol Inj) 40 mg IV.PUSH Q6H [facility] Metoclopramide HCl (Reglan Inj) 5 mg IV.PUSH Q6HR PRN; Protocol PRN Reason: NAUSEA OR VOMITING Morphine Sulfate (Msir) 30 mg PO BID PRN PRN Reason: Pain 1-10 Rivaroxaban (Xarelto) 15 mg PO DAILY [facility] Senna/Docusate Sodium (Naa-Colace) 1 tab PO BID [facility] Sennosides (Senokot) 17.2 mg PO Q12H PRN PRN Reason: Moderate Constipation Temazepam (Restoril) 15 mg PO HS PRN PRN Reason: INSOMNIA Allergies Allergy/AdvReac Type Severity Reaction Status Date / Time No Known Allergies Allergy Verified 12/13/17 05:45 Home Medications Medication Instructions Recorded Confirmed Type Xarelto 15 mg PO DAILY 12/13/17 12/13/17 History albuterol sulfate 2 puff INHALATION Q4-6H PRN 12/13/17 12/13/17 History morphine 30 mg PO BID PRN 12/13/17 12/13/17 History prednisone 20 mg PO DAILY 12/13/17 12/13/17 History Exam Vital signs: Vital Signs 12/13/17 05:43 12/13/17 05:54 12/13/17 06:45 Temperature 98.2 F Pulse Rate 115 H 114 H 104 H Respiratory Rate 30 H 20 24 Blood Pressure 133/89 130/88 130/88 Pulse Oximetry 91 L 93 L 93 L 12/13/17 06:51 12/13/17 10:20 12/13/17 13:00 Temperature Pulse Rate 102 H 104 H Respiratory Rate 18 26 H 20 Blood Pressure 137/81 137/88 Pulse Oximetry 12/13/17 13:06 Temperature Pulse Rate 115 H Respiratory Rate 17 Blood Pressure Pulse Oximetry 96 Intake & Output 12/12/17 12/13/17 12/13/17 18:59 06:59 18:59 Weight 93.894 kg Narrative: GENERAL: well developed, well nourished, in mild distress secondary to pain. SKIN: Warm and dry. HEAD: Atraumatic. Normocephalic. EYES: Pupils equal and round. No scleral icterus. No injection or drainage. ENT: No nasal bleeding or discharge. Mucous membranes pink and moist. NECK: Trachea midline. No JVD. CARDIOVASCULAR: Regular rate and rhythm. RESPIRATORY: No accessory muscle use.Decrease breath sound on the R upper , mid , and lower lobe with scattered rales GASTROINTESTINAL: Abdomen soft, non-tender, nondistended. Hepatic and splenic margins not palpable. MUSCULOSKELETAL: Extremities without clubbing, cyanosis, or edema. No obvious deformities. NEUROLOGICAL: Awake and alert. No obvious cranial nerve deficits. Motor grossly within normal limits. Five out of 5 muscle strength in the arms and legs. Normal speech. PSYCHIATRIC: Appropriate mood and affect; insight and judgment normal. - Constitutional no acute distress Results - Labs Result diagrams: 12/13/17 06:10 12/13/17 06:10 Abnormal lab results 12/13/17 12/13/17 12/13/17 Range/Units 06:10 06:10 08:20 Neut % (Auto) 77.9 H (16.0-70.0) % Lymph % (Auto) 6.9 L (9.0-44.0) % Richardson % (Auto) 13.5 H (0.0-8.0) % Lymph # (Auto) 0.5 L (1.0-4.8) th/mm3 Richardson # (Auto) 1.1 H (0.0-0.9) th/mm3 ABG pH 7.47 H (7.380-7.420) ABG HCO3 30 H (22-26) mmol/L ABG Base Excess 6.3 H (-2-2) mmol/L Potassium 3.3 L (3.5-5.1) meq/L Estimated GFR 75 L (>89) mL/min Random Glucose 107 H (74-106) mg/dL Albumin 3.3 L (3.4-5.0) g/dL Short CBC 12/13/17 Range/Units 06:10 WBC 7.8 (4.0-11.0) th/mm3 Hgb 14.5 (13.0-17.0) gm/dL Hct 43.6 (39.0-51.0) % Plt Count 279 (150-450) th/mm3 BMP 12/13/17 06:10 Sodium 139 Potassium 3.3 L Chloride 99 Carbon Dioxide 29.2 BUN 14 Creatinine 1.08 Calcium 9.5 Liver Function 12/13/17 Range/Units 06:10 Total Bilirubin 0.3 (0.2-1.0) mg/dL AST 27 (15-37) U/L ALT 39 (12-78) U/L Alkaline Phosphatase 81 (45-117) U/L Albumin 3.3 L (3.4-5.0) g/dL - Imaging Impressions Chest X-Ray 12/13/17 06:05 CONCLUSION: 1. No significant interval change with persistent complete opacification of the right hemithorax. Caprini VTE Risk Assessment Caprini Risk Assessment Model: Point Value = 1 Point Value = 2 Point Value = 3 Point Value = 5 Age 41-60 Minor surgery BMI > 25 kg/m2 Swollen legs Varicose veins or History of unexplained or recurrent spontaneous Oral contraceptives or hormone replacement Sepsis (< 1 month) Serious lung disease, including pneumonia (< 1 month) Abnormal pulmonary function Acute myocardial infarction Congestive heart failure (< 1 month) History of inflammatory bowel disease Medical patient at bed rest Age 61-74 Arthroscopic surgery Major open surgery (> 45 min) Laparoscopic surgery (> 45 min) Malignancy Confined to bed (> 72 hours) Immobilizing plaster cast Central venous access Age >= 75 History of VTE Family history of VTE Factor V Leiden Prothrombin [id number] Lupus anticoagulant Anticardiolipin antibodies Elevated serum homocysteine Heparin-induced thrombocytopenia Other congenital or acquired thrombophilia Stroke (< 1 month) Elective arthroplasty Hip, pelvis, or leg fracture Acute spinal cord injury (< 1 month) Prophylaxis Regimen: Total Risk Factor Score Risk Level Prophylaxis Regimen 0-1 Low Early ambulation 2 Moderate Order ONE of the following: *Sequential Compression Device (SCD) *Heparin 5000 units SQ BID 3-4 Higher Order ONE of the following medications: *Heparin 5000 units SQ TID *Enoxaparin/Lovenox 40 mg SQ daily (WT < 150 kg, CrCl > 30 mL/min) *Enoxaparin/Lovenox 30 mg SQ daily (WT < 150 kg, CrCl > 10-29 mL/min) *Enoxaparin/Lovenox 30 mg SQ BID (WT < 150 kg, CrCl > 30 mL/min) AND/OR *Sequential Compression Device (SCD) 5 or more Highest Order ONE of the following medications: *Heparin 5000 units SQ TID (Preferred with Epidurals) *Enoxaparin/Lovenox 40 mg SQ daily (WT < 150 kg, CrCl > 30 mL/min) *Enoxaparin/Lovenox 30 mg SQ daily (WT < 150 kg, CrCl > 10-29 mL/min) *Enoxaparin/Lovenox 30 mg SQ BID (WT < 150 kg, CrCl > 30 mL/min) AND *Sequential Compression Device (SCD) Assessment and Plan - Assessment and Plan Respiratory Distress secondary to Pleural Effusion: CXR reveals significant pleural effusion of R lung. will be put on DuoNeb, salmeterol, steroids and Lasix will be initiated and Thoracocentesis will be done. Patiet had thoracenteis nd feels much improved thereafter Non-Hodgkin T cell lymphoma: pt was in remission until recently. Is under the care of Dr Leigh, which per pt, will initiate chemotherapy after port placement soon next week. DVT ppx continue Pradaxa
--- NOTE | 2017-12-13 15:22 | US ---
EXAM DATE: 12/13/2017 3:06 PM EDT AGE/SEX: 42 years / Male INDICATIONS: Right pleural effusion with dyspnea. CLINICAL DATA: This is the patient's subsequent encounter. Patient reports that signs and symptoms h ave been present for 7 - 11 months and indicates a pain score of 10/10. MEDICAL/SURGICAL HISTORY: . Non-Hodgkin's T-cell Lymphoma. Blood clots. . Thoracentesis. Chemo therapy. COMPARISON: [facility] – [place], [place] GUIDED THORACENTESIS RIGHT, 05/08/2017. . FLUID: Total volume of 1,000cc clear, yellowish brown cc of . fluid was removed. Fluid was sent to lab for ordered studies. . . TECHNIQUE: Ultrasound guidance for thoracentesis. Thoracentesis. The risks, benefits, and alternatives to ultrasound guided thoracentesis were explained to the patien t in lay simple terms, including the risk of bleeding and infection. Written and verbal informed con sent was obtained. Appropriate area for right thoracentesis was marked under ultrasound guidance with the patient in the upright position. Overlying skin was prepped and draped in the usual sterile fashion and with local anesthetic, a dermatotomy was made with an 11 blade scalpel. A 6 [place] thoracentesis catheter was placed in the pleural space and fluid was removed. Catheter was then removed and a sterile dressing applied. There were no immediate complications. The patient tolerated the procedure well and the lef t the ultrasound suite in stable condition. Chest radiograph is to be obtained. FINDINGS: After obtaining consent, an ultrasound-guided right thoracentesis was performed as described above. P atient tolerated the procedure well without complications. CONCLUSION: 1. Successful ultrasound-guided right thoracentesis. Electronically signed by: Anthony Brewer MD 12/13/2017 3:21 PM EDT
[2017-12-13 15:52] LABS: Total Protein,Pleural Fluid 3.9 gm/dL
[2017-12-13 16:32] LABS: Lymphocytes,Pleural Fluid 94 %; Monocytes,Pleural Fluid 2 %; Neutrophils,Pleural Fluid 2 %; RBC,Pleural Fluid 9944 /mm3 (0-0)
[2017-12-13] MEDS ORDERED: Morphine Sulfate Inj 2 MG/ML Vial IV.PUSH ONE (19:15)
--- NOTE | 2017-12-13 20:55 | MB ---
cc: Aysha Leigh MD, Ruby Anne E MD Cosma,Adele MACIAS DATE: 12/13/2017 REFERRING PHYSICIAN: Dr. Adele Lares. CHIEF COMPLAINT: Dr. Lares requests a consultation for Yue regarding T-cell lymphoblastic lymphoma. HISTORY OF PRESENT ILLNESS: Mr. Turner is a 42-year-old man with a history of T-cell lymphoblastic lymphoma. He has quite aggressive disease. He presented with enlarging right lung mass. He was finally diagnosed and started on CHOP chemotherapy. He completed 5 cycles of CHOP chemotherapy when he developed right lung infiltrate. He had extensive evaluation for the right lung infiltrate, which in the end was felt to be secondary to radiation. He went in so far to have an open lung biopsy. Infectious etiology was explored. He remains on antifungal prophylaxis with Vfend. The diagnosis points to right lung pneumonitis post-radiation. The chemotherapy suspected to have created radiation recall. He continued on steroids. He was improving. His performance status has improved. He was evaluated at [facility] for autologous stem cell transplant. His transplant was delayed a month because of his poor performance status and lung function from his right lung pneumonitis. He was last seen in clinic on 11/08/2017 with presumptive plan for transplantation in November. He was admitted to [facility] in the first part of November with increasing shortness of breath, recurrent pleural effusion. He had a bronchoscopic evaluation and cytology sent from the pleural fluid, which showed recurrence of his T-cell lymphoblastic lymphoma. At that his plans for transplant was deferred. He was seen in clinic recently. He was referred to lymphoma specialist, Dr. Adis Garcia at [facility] who recommended ICE chemotherapy. Mr. Turner was being scheduled for inpatient second line, bone marrow preparatory regimen with ifosfamide, etoposide and carboplatin when he presented to the emergency room at [facility] with increasing shortness of breath. He is found to have a significant recurrence of his right-sided pleural effusion. He underwent a thoracentesis. He felt immediately better. He was placed on respiratory treatment. He was given pain medication. He was subsequently admitted. Hematology oncology was consulted. REVIEW OF SYSTEMS: He denies any fevers, chills or night sweats. Denies any bleeding from his anticoagulant therapy. 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 He had thrombolytic therapy from past hospitalizations. He remains on steroids. He was switched to Solu-Medrol during this admission. He has pain relief with morphine breakthrough. His last dose of pain medication was more than 4 hours ago and his pain symptoms are beginning to recur. He denies any fevers, chills or night sweats. His appetite is quite good. PAST MEDICAL HISTORY: 1. T-cell lymphoblastic lymphoma recurrence. 2. Malignant right-sided pleural effusion. 3. Asthma. 4. Herniated disk. 5. Radiation pneumonitis. 6. Upper extremity deep vein thrombosis. 7. Port placement and removal. 8. Unintentional weight gain. PAST SURGICAL HISTORY: 1. CT-guided biopsy mediastinal mass 2. Thoracentesis 3. Port placement and removal. 4. Local thrombolytic therapy for left upper extremity deep vein thrombosis and superior vena cava syndrome. 5. Right-sided thoracotomy and open lung biopsy. ALLERGIES: NO KNOWN DRUG ALLERGIES. CURRENT MEDICATIONS: 1. Albuterol nebulizer 2. Dulcolax. 3. Lasix p.r.n. 4. Lactulose. 5. Lorazepam. 6. Solu-Medrol. 7. Reglan p.r.n. 8. Morphine 9. Xarelto 10. Temazepam p.r.n. FAMILY HISTORY: Father is . Mother is alive. No significant family history of cancer. SOCIAL HISTORY: He is , lives with his and 2 daughters. He is a never smoker. He denies any alcohol or illicit drug use. PHYSICAL EXAMINATION: VITAL SIGNS: Temperature 97.8, heart rate 107, respiratory rate 20, blood pressure 129/89, saturation 92%. . GENERAL: Mr. Turner is a well-developed, well-nourished man who has slight steroid wound facies. HEENT: His pupils are round, reactive to light and accommodation. Oropharynx is clear. NECK: Supple. LUNGS: Diminished breath sounds throughout the right lung field. CARDIOVASCULAR: Reveals a tachycardia. ABDOMEN: Benign. LOWER EXTREMITIES: No edema. Good pulses. NEUROLOGIC: Nonfocal. Emotional. He becomes teary at times. LABORATORY DATA: CBC is normal. PT, PTT is normal. Potassium slightly decreased. Renal function with BUN of 14, creatinine 1.08. IMAGING STUDIES: Chest x-ray shows persistent opacity of the right hemithorax. ASSESSMENT AND PLAN: Mr. Turner is a 42-year-old man, well known patient, with history of asthma and diagnosis of T-cell lymphoblastic lymphoma. He had initial short-lived response to 5 cycles of CHOP chemotherapy. His course is complicated by right lung radiation pneumonitis and left upper extremity deep vein thrombosis associated with superior vena cava involvement. He continues on chronic anticoagulant therapy with Xarelto. His course is complicated by recurrence of right-sided pleural effusion secondary to recurrence and relapse of his T-cell lymphoblastic lymphoma. After a lengthy discussion with Mr. Turner and previously with his consulting lymphoma specialist, we decided to proceed with ICE chemotherapy. We discussed the risk and benefit of ifosfamide, carboplatin and etoposide. Chemotherapy is ordered. The treatment will be coordinated during this admission. Supportive treatment, control of his pain, alleviation of his shortness of breath, continued steroids for his pneumonitis. Risk and benefit of his chemotherapy regimen was discussed. Our goal ultimately is to induce a response and possibly allow him to proceed with autologous stem cell transplant after all. We discussed continuing his Vfend as fungal prophylaxis. His pain regimen is optimized to continue his morphine, MSIR immediate release 30 mg every 6 hours. IV morphine is used for breakthrough. He manages his pain medication at home with short-acting pain medications. He declined a long-acting pain medication. He has a lot of shortness of breath and respiratory symptoms from his right lung pneumonitis and pleural effusion. The morphine alleviates some of the air hunger. Bowel regimen has been in place. Steroids will continue. Lorazepam is ordered p.r.n. for his anxiety. His questions were answered to his satisfaction. MD ANURAG Viera/ , 08:15 PM , 08:31 PM
[2017-12-13] MEDS ORDERED: Senna/Docusate Sodium 8.6/50 MG Tablet PO SCH (21:00)
[2017-12-13] MEDS ORDERED: Temazepam 15 MG Capsule PO PRN (21:00)
[2017-12-13] MEDS ORDERED: Morphine Sulfate Inj 8 MG/ML Vial IV.PUSH SCH (23:00)
[2017-12-13] MEDS: Senna/Docusate Sodium 8.6/50 MG Tablet PO SCH (23:33)
[2017-12-13] MEDS: Morphine Inj 4 MG/ML Vial IV.PUSH SCH (23:34)
[2017-12-13] MEDS: MethylPREDNISolone Sod Succinate Inj 40 MG/ML Vial IV.PUSH SCH (23:34)
[2017-12-14] MEDS ORDERED: Morphine Sulfate 30 MG IR Tablet PO SCH
[2017-12-14] MEDS: Morphine Inj 4 MG/ML Vial IV.PUSH SCH ×7 (02:02→20:16)
[2017-12-14 05:03] LABS: Baso % (Auto) 0.3 % (0.0-2.0); Hematocrit 40.6 % (39.0-51.0); Hemoglobin 13.7 gm/dL (13.0-17.0); Lymph # (Auto) 0.3 th/mm3 (1.0-4.8); Lymph % (Auto) 3.9 % (9.0-44.0); Mean Corpuscular HGB Conc 33.7 % (32.0-36.0); Mean Corpuscular Hemoglobin 27.7 pg (27.0-34.0); Mean Corpuscular Volume 82.2 fL (80.0-100.0); Mean Platelet Volume 7.2 fL (7.0-11.0); Mono # (Auto) 0.2 th/mm3 (0.0-0.9); Neut # (Auto) 7.1 th/mm3 (1.8-7.7); Neut % (Auto) 92.8 % (16.0-70.0); Platelet Count 268 th/mm3 (150-450); Red Blood Count 4.95 mil/mm3 (4.50-5.90); White Blood Count 7.6 th/mm3 (4.0-11.0)
[2017-12-14 05:32] LABS: Calcium 9.4 mg/dL (8.5-10.1); Carbon Dioxide 27.1 meq/L (21.0-32.0); Potassium 4.3 meq/L (3.5-5.1)
[2017-12-14] MEDS: Furosemide 20 MG Tablet PO SCH (08:12)
[2017-12-14] MEDS: Senna/Docusate Sodium 8.6/50 MG Tablet PO SCH ×2 (08:12→20:12)
[2017-12-14] MEDS: Voriconazole 200 MG Tablet PO SCH (08:12)
[2017-12-14] MEDS: MethylPREDNISolone Sod Succinate Inj 40 MG/ML Vial IV.PUSH SCH ×2 (08:12→20:12)
[2017-12-14] MEDS ORDERED: Rivaroxaban 15 MG Tablet PO SCH (09:00)
--- NOTE | 2017-12-14 09:35 | P.PN ---
Physical Exam Vital signs: Vital Signs 12/13/17 10:20 12/13/17 13:00 12/13/17 13:06 Temperature Pulse Rate 102 H 104 H 115 H Respiratory Rate 26 H 20 17 Blood Pressure 137/81 137/88 Pulse Oximetry 96 12/13/17 13:40 12/13/17 14:20 12/13/17 15:00 Temperature 98.6 F 97.8 F Pulse Rate 112 H 107 H Respiratory Rate 7 L 20 20 Blood Pressure 127/82 129/89 Pulse Oximetry 94 L 92 L 12/13/17 17:15 12/13/17 20:00 12/13/17 20:41 Temperature 97.6 F Pulse Rate 101 H 104 H Respiratory Rate 18 20 16 Blood Pressure 132/74 Pulse Oximetry 95 91 L 12/14/17 00:00 12/14/17 04:00 12/14/17 04:03 Temperature 97.9 F 97.2 F L Pulse Rate 102 H 90 89 Respiratory Rate 20 18 20 Blood Pressure 138/94 H 113/74 Pulse Oximetry 93 L 97 12/14/17 07:34 Temperature Pulse Rate 98 H Respiratory Rate 20 Blood Pressure Pulse Oximetry Intake & Output 12/13/17 12/14/17 12/14/17 18:59 06:59 18:59 Intake Total 480 / 480 Balance 480 / 480 Weight 95.1 kg Intake: Oral 480 / 480 Other: # Voids 4 Narrative: Subjective: Patient is in bed he says pain is fairly controlled by medications. No nausea vomiting. Has chest pain with inspiration. No fever or chills. No cough. Physical exam: GENERAL: well developed, well nourished, in mild distress secondary to pain. CARDIOVASCULAR: Regular rate and rhythm. RESPIRATORY: No accessory muscle use.Decrease breath sound on the R upper , mid , and lower lobe with scattered rales GASTROINTESTINAL: Abdomen soft, non-tender, nondistended. Hepatic and splenic margins not palpable. MUSCULOSKELETAL: Extremities without clubbing, cyanosis, or edema. No obvious deformities. NEUROLOGICAL: Awake and alert. No obvious cranial nerve deficits. Motor grossly within normal limits. Five out of 5 muscle strength in the arms and legs. Normal speech. PSYCHIATRIC: Appropriate mood and affect; insight and judgment normal. Assessment and Plan Acute on chronic respiratory failure requiring O2 and thoracentesis on admission Respiratory Distress secondary to increased in size Pleural Effusion: CXR reveals significant pleural effusion of R lung. Continue DuoNeb, salmeterol, steroids and Lasix S/p Thoracocentesis with significant improvement Non-Hodgkin T cell lymphoma: pt was in remission until recently. hem onc consulted Dr Leigh, which per pt, will initiate chemotherapy after port placement soon next week. initiation of ICE chemotherapy per hem/onc DVT ppx continue Pradaxa Results - Labs CBC & Chem 7: 12/14/17 04:38 12/14/17 04:38 Laboratory Results - last 24 hr 12/13/17 12/13/17 12/13/17 12:25 14:41 14:41 WBC RBC Hgb Hct MCV MCH MCHC RDW Plt Count MPV Neut % (Auto) Lymph % (Auto) Bosque % (Auto) Eos % (Auto) Baso % (Auto) Neut # (Auto) Lymph # (Auto) Bosque # (Auto) Eos # (Auto) Baso # (Auto) WBC Differential Differential Comment PT 10.5 INR 1.0 Sodium Potassium Chloride Carbon Dioxide Anion Gap BUN Creatinine Estimated GFR Random Glucose Calcium Pleural pH 8.0 Pleural RBC 9944 H Pleural Nuc Cells 4983 H Pleural Neutrophils 2 Pleural Lymphocytes 94 Pleural Monocytes 2 Pleural Histocytes 2 Pleural Fluid Comment Pleural Total Protein 3.9 Pleural LDH 969 Pleural Glucose 41 Pleural Amylase 21 12/14/17 12/14/17 04:38 04:38 WBC 7.6 RBC 4.95 Hgb 13.7 Hct 40.6 MCV 82.2 MCH 27.7 MCHC 33.7 RDW 17.0 Plt Count 268 MPV 7.2 Neut % (Auto) 92.8 H Lymph % (Auto) 3.9 L Bosque % (Auto) 3.0 Eos % (Auto) 0.0 Baso % (Auto) 0.3 Neut # (Auto) 7.1 Lymph # (Auto) 0.3 L Bosque # (Auto) 0.2 Eos # (Auto) 0.0 Baso # (Auto) 0.0 WBC Differential . Differential Comment Auto diff final PT INR Sodium 136 Potassium 4.3 D Chloride 99 Carbon Dioxide 27.1 Anion Gap 10 BUN 14 Creatinine 1.02 Estimated GFR 80 L Random Glucose 186 H Calcium 9.4 Pleural pH Pleural RBC Pleural Nuc Cells Pleural Neutrophils Pleural Lymphocytes Pleural Monocytes Pleural Histocytes Pleural Fluid Comment Pleural Total Protein Pleural LDH Pleural Glucose Pleural Amylase Microbiology 12/13/17 14:41 Fluid - Pleural fluid Fungal Smear - Final No fungal elements seen 12/13/17 14:41 Fluid - Pleural fluid Gram Stain - Final - Imaging Impressions Chest X-Ray 12/13/17 00:00 CONCLUSION: 1. No pneumothorax status post thoracentesis. 2. The right lung remains completely opacified. Thoracentesis Ultrasound 12/13/17 00:00 CONCLUSION: 1. Successful ultrasound-guided right thoracentesis. Chest X-Ray 12/13/17 06:05 CONCLUSION: 1. No significant interval change with persistent complete opacification of the right hemithorax. Assessment and Plan - Plan Pt is a pleasant 42-year-old male with a hx of non-hodgkin lymphoma who presents the emergency department with chest pain and shortness of breath. He states that 2 days ago he started having tightness in his chest that would worsen with positioning himself on the R side, along with SOB that worsens with laying on his R side, and with taking deep breaths. Pt states that these sxs are very similar to the other times he has had pleural effusion that required Thoracocentesis. He state that his last thoracocentesis was 2 weeks ago and 1000 cc fluid was removed. Pt was diagnosed with non-Hodgkin's T cell lymphoma April last year, had been in remission following chemotherapy until several weeks ago. He is a patient of Dr. Leigh, and states that he will soon have a port place for new round of chemo. Denies, diaphoresis, Fever, chills, nausea, vomiting, abdominal pain, melena, hematochezia. Inpatient Certification: I certify that the inpatient services were ordered in accordance with Medicare regulations governing the order. This includes certification that hospital inpatient services are reasonable and necessary and in the case of services not specified as inpatient-only under 42 CFR 419.22(n), that they are appropriately provided as inpatient services in accordance to with the 2-midnight benchmark under 43 CFR 412.3(e) Estimated Total Length of Stay (Days): 4 Plans for Post Hospital Care: Not yet determined Review of Systems All other systems reviewed negative except as stated in HPI PMFSH - History History Provided By: Patient - Medical History Medical History: Medical History (Last Reviewed 12/13/17 @ 08:05 by Matteo Reed DO) Hx of blood clots Lymphoma - Tobacco History Smoking Status: Never smoker - Alcohol History How Often Do You Have a Drink Containing Alcohol: Never - Substance Use History Substance History: No History of Abuse - Travel History Recent Travel in the [place] Within the Last 8 Weeks: No Recent Travel Out of the Country Within the Last 8 Weeks: No - Immunization History Tetanus Immunization: <5 Years Medications and Allergies Active Medications: Active Medications Al Hydroxide/Mg Hydroxide (Milk Of Magnesia Liq) 30 ml PO Q12H PRN PRN Reason: Mild Constipation Albuterol (Duoneb Neb (Bandar)) 1 ampul NEB Q6HR WHILE AWAKE NEB BANDAR Last Admin: 12/13/17 13:04 Dose: 1 ampul Albuterol (Duoneb Neb (Prn)) 1 ampul NEB Q2HR NEB PRN PRN Reason: sob/wheezing Bisacodyl (Dulcolax Supp) 10 mg RECTAL DAILY PRN PRN Reason: SEVERE CONSITIPATION Lactulose (Lactulose Liq) 30 ml PO DAILY PRN PRN Reason: SEVERE CONSITIPATION Methylprednisolone Sodium Succinate (Solumedrol Inj) 40 mg IV.PUSH Q6H BANDAR Metoclopramide HCl (Reglan Inj) 5 mg IV.PUSH Q6HR PRN; Protocol PRN Reason: NAUSEA OR VOMITING Morphine Sulfate (Msir) 30 mg PO BID PRN PRN Reason: Pain 1-10 Rivaroxaban (Xarelto) 15 mg PO DAILY [facility] Senna/Docusate Sodium (Naa-Colace) 1 tab PO BID [facility] Sennosides (Senokot) 17.2 mg PO Q12H PRN PRN Reason: Moderate Constipation Temazepam (Restoril) 15 mg PO HS PRN PRN Reason: INSOMNIA Allergies Allergy/AdvReac Type Severity Reaction Status Date / Time No Known Allergies Allergy Verified 12/13/17 05:45 Home Medications Medication Instructions Recorded Confirmed Type Xarelto 15 mg PO DAILY 12/13/17 12/13/17 History albuterol sulfate 2 puff INHALATION Q4-6H PRN 12/13/17 12/13/17 History morphine 30 mg PO BID PRN 12/13/17 12/13/17 History prednisone 20 mg PO DAILY 12/13/17 12/13/17 History Exam Vital signs: Vital Signs 12/13/17 05:43 12/13/17 05:54 12/13/17 06:45 Temperature 98.2 F Pulse Rate 115 H 114 H 104 H Respiratory Rate 30 H 20 24 Blood Pressure 133/89 130/88 130/88 Pulse Oximetry 91 L 93 L 93 L 12/13/17 06:51 12/13/17 10:20 12/13/17 13:00 Temperature Pulse Rate 102 H 104 H Respiratory Rate 18 26 H 20 Blood Pressure 137/81 137/88 Pulse Oximetry 12/13/17 13:06 Temperature Pulse Rate 115 H Respiratory Rate 17 Blood Pressure Pulse Oximetry 96 Intake & Output 12/12/17 12/13/17 12/13/17 18:59 06:59 18:59 Weight 93.894 kg Narrative: GENERAL: well developed, well nourished, in mild distress secondary to pain. SKIN: Warm and dry. HEAD: Atraumatic. Normocephalic. EYES: Pupils equal and round. No scleral icterus. No injection or drainage. ENT: No nasal bleeding or discharge. Mucous membranes pink and moist. NECK: Trachea midline. No JVD. CARDIOVASCULAR: Regular rate and rhythm. RESPIRATORY: No accessory muscle use.Decrease breath sound on the R upper , mid , and lower lobe with scattered rales GASTROINTESTINAL: Abdomen soft, non-tender, nondistended. Hepatic and splenic margins not palpable. MUSCULOSKELETAL: Extremities without clubbing, cyanosis, or edema. No obvious deformities. NEUROLOGICAL: Awake and alert. No obvious cranial nerve deficits. Motor grossly within normal limits. Five out of 5 muscle strength in the arms and legs. Normal speech. PSYCHIATRIC: Appropriate mood and affect; insight and judgment normal. - Constitutional no acute distress Results - Labs Result diagrams: 12/13/17 06:10 12/13/17 06:10 Abnormal lab results 12/13/17 12/13/17 12/13/17 Range/Units 06:10 06:10 08:20 Neut % (Auto) 77.9 H (16.0-70.0) % Lymph % (Auto) 6.9 L (9.0-44.0) % Bosque % (Auto) 13.5 H (0.0-8.0) % Lymph # (Auto) 0.5 L (1.0-4.8) th/mm3 Bosque # (Auto) 1.1 H (0.0-0.9) th/mm3 ABG pH 7.47 H (7.380-7.420) ABG HCO3 30 H (22-26) mmol/L ABG Base Excess 6.3 H (-2-2) mmol/L Potassium 3.3 L (3.5-5.1) meq/L Estimated GFR 75 L (>89) mL/min Random Glucose 107 H (74-106) mg/dL Albumin 3.3 L (3.4-5.0) g/dL Short CBC 12/13/17 Range/Units 06:10 WBC 7.8 (4.0-11.0) th/mm3 Hgb 14.5 (13.0-17.0) gm/dL Hct 43.6 (39.0-51.0) % Plt Count 279 (150-450) th/mm3 BMP 12/13/17 06:10 Sodium 139 Potassium 3.3 L Chloride 99 Carbon Dioxide 29.2 BUN 14 Creatinine 1.08 Calcium 9.5 Liver Function 12/13/17 Range/Units 06:10 Total Bilirubin 0.3 (0.2-1.0) mg/dL AST 27 (15-37) U/L ALT 39 (12-78) U/L Alkaline Phosphatase 81 (45-117) U/L Albumin 3.3 L (3.4-5.0) g/dL - Imaging Impressions Chest X-Ray 12/13/17 06:05 CONCLUSION: 1. No significant interval change with persistent complete opacification of the right hemithorax. Caprini VTE Risk Assessment Caprini Risk Assessment Model: Point Value = 1 Point Value = 2 Point Value = 3 Point Value = 5 Age 41-60 Minor surgery BMI > 25 kg/m2 Swollen legs Varicose veins or History of unexplained or recurrent spontaneous Oral contraceptives or hormone replacement Sepsis (< 1 month) Serious lung disease, including pneumonia (< 1 month) Abnormal pulmonary function Acute myocardial infarction Congestive heart failure (< 1 month) History of inflammatory bowel disease Medical patient at bed rest Age 61-74 Arthroscopic surgery Major open surgery (> 45 min) Laparoscopic surgery (> 45 min) Malignancy Confined to bed (> 72 hours) Immobilizing plaster cast Central venous access Age >= 75 History of VTE Family history of VTE Factor V Leiden Prothrombin [id number] Lupus anticoagulant Anticardiolipin antibodies Elevated serum homocysteine Heparin-induced thrombocytopenia Other congenital or acquired thrombophilia Stroke (< 1 month) Elective arthroplasty Hip, pelvis, or leg fracture Acute spinal cord injury (< 1 month) Prophylaxis Regimen: Total Risk Factor Score Risk Level Prophylaxis Regimen 0-1 Low Early ambulation 2 Moderate Order ONE of the following: *Sequential Compression Device (SCD) *Heparin 5000 units SQ BID 3-4 Higher Order ONE of the following medications: *Heparin 5000 units SQ TID *Enoxaparin/Lovenox 40 mg SQ daily (WT < 150 kg, CrCl > 30 mL/min) *Enoxaparin/Lovenox 30 mg SQ daily (WT < 150 kg, CrCl > 10-29 mL/min) *Enoxaparin/Lovenox 30 mg SQ BID (WT < 150 kg, CrCl > 30 mL/min) AND/OR *Sequential Compression Device (SCD) 5 or more Highest Order ONE of the following medications: *Heparin 5000 units SQ TID (Preferred with Epidurals) *Enoxaparin/Lovenox 40 mg SQ daily (WT < 150 kg, CrCl > 30 mL/min) *Enoxaparin/Lovenox 30 mg SQ daily (WT < 150 kg, CrCl > 10-29 mL/min) *Enoxaparin/Lovenox 30 mg SQ BID (WT < 150 kg, CrCl > 30 mL/min) AND *Sequential Compression Device (SCD) Assessment and Plan - Assessment and Plan Respiratory Distress secondary to Pleural Effusion: CXR reveals significant pleural effusion of R lung. will be put on DuoNeb, salmeterol, steroids and Lasix will be initiated and Thoracocentesis will be done. Patiet had thoracenteis nd feels much improved thereafter Non-Hodgkin T cell lymphoma: pt was in remission until recently. Is under the care of Dr Leigh, which per pt, will initiate chemotherapy after port placement soon next week. DVT ppx continue Pradaxa
[2017-12-14] MEDS: Rivaroxaban 15 MG Tablet PO SCH (11:16)
[2017-12-14] MEDS ORDERED: Dexamethasone Inj 20 MG in Sodium Chlor 0.9% Inj 50 ML IV.SIG SCH (12:30)
--- NOTE | 2017-12-14 12:43 | P.PNONC ---
Subjective Interval history: Afebrile. Patient sitting in chair at sink shaving. He has no new complaints at this time. He states his breathing is "same." He states that his pain is controlled. He reports that his right posterior lung pain is positional, and he just has to change positions frequently for comfort. Objective Vital Signs/Intake & Output: Vital Signs 12/13/17 13:00 12/13/17 13:06 12/13/17 13:40 Temperature Pulse Rate 104 H 115 H Respiratory Rate 20 17 7 L Blood Pressure 137/88 Pulse Oximetry 96 12/13/17 14:20 12/13/17 15:00 12/13/17 17:15 Temperature 98.6 F 97.8 F Pulse Rate 112 H 107 H Respiratory Rate 20 20 18 Blood Pressure 127/82 129/89 Pulse Oximetry 94 L 92 L 12/13/17 20:00 12/13/17 20:41 12/14/17 00:00 Temperature 97.6 F 97.9 F Pulse Rate 101 H 104 H 102 H Respiratory Rate 20 16 20 Blood Pressure 132/74 138/94 H Pulse Oximetry 95 91 L 93 L 12/14/17 04:00 12/14/17 04:03 12/14/17 07:34 Temperature 97.2 F L Pulse Rate 90 89 98 H Respiratory Rate 18 20 20 Blood Pressure 113/74 Pulse Oximetry 97 12/14/17 11:00 Temperature 97.6 F Pulse Rate 112 H Respiratory Rate 22 Blood Pressure 155/88 H Pulse Oximetry 99 Intake & Output 12/13/17 12/14/17 12/14/17 18:59 06:59 18:59 Intake Total 480 / 480 Balance 480 / 480 Weight 95.1 kg Intake: Oral 480 / 480 Other: # Voids 4 Result Diagrams: 12/14/17 04:38 12/14/17 04:38 Laboratory Results: Laboratory Results - last 24 hr 12/13/17 12/13/17 12/13/17 12:25 14:41 14:41 WBC RBC Hgb Hct MCV MCH MCHC RDW Plt Count MPV Neut % (Auto) Lymph % (Auto) Christian % (Auto) Eos % (Auto) Baso % (Auto) Neut # (Auto) Lymph # (Auto) Christian # (Auto) Eos # (Auto) Baso # (Auto) WBC Differential Differential Comment PT 10.5 INR 1.0 Sodium Potassium Chloride Carbon Dioxide Anion Gap BUN Creatinine Estimated GFR Random Glucose Calcium Pleural pH 8.0 Pleural RBC 9944 H Pleural Nuc Cells 4983 H Pleural Neutrophils 2 Pleural Lymphocytes 94 Pleural Monocytes 2 Pleural Histocytes 2 Pleural Fluid Comment Pleural Total Protein 3.9 Pleural LDH 969 Pleural Glucose 41 Pleural Amylase 21 12/14/17 12/14/17 04:38 04:38 WBC 7.6 RBC 4.95 Hgb 13.7 Hct 40.6 MCV 82.2 MCH 27.7 MCHC 33.7 RDW 17.0 Plt Count 268 MPV 7.2 Neut % (Auto) 92.8 H Lymph % (Auto) 3.9 L [place] % (Auto) 3.0 Eos % (Auto) 0.0 Baso % (Auto) 0.3 Neut # (Auto) 7.1 Lymph # (Auto) 0.3 L [place] # (Auto) 0.2 Eos # (Auto) 0.0 Baso # (Auto) 0.0 WBC Differential . Differential Comment Auto diff final PT INR Sodium 136 Potassium 4.3 D Chloride 99 Carbon Dioxide 27.1 Anion Gap 10 BUN 14 Creatinine 1.02 Estimated GFR 80 L Random Glucose 186 H Calcium 9.4 Pleural pH Pleural RBC Pleural Nuc Cells Pleural Neutrophils Pleural Lymphocytes Pleural Monocytes Pleural Histocytes Pleural Fluid Comment Pleural Total Protein Pleural LDH Pleural Glucose Pleural Amylase Culture Results: Microbiology 12/13/17 14:41 Fungal Smear - Final Fluid - Pleural fluid No fungal elements seen 12/13/17 14:41 Gram Stain - Final Fluid - Pleural fluid Imaging Studies: Impressions Chest X-Ray 12/13/17 00:00 CONCLUSION: 1. No pneumothorax status post thoracentesis. 2. The right lung remains completely opacified. Thoracentesis Ultrasound 12/13/17 00:00 CONCLUSION: 1. Successful ultrasound-guided right thoracentesis. Medications: Active Medications Generic Name Dose Route Start Last Admin Trade Name Freq PRN Reason Stop Dose Admin Albuterol 1 ampul 12/13/17 14:00 12/14/17 07:32 Duoneb Neb (Suzan) NEB 1 ampul Q6HR WHILE AWAKE NEB SUZAN Administration Albuterol 1 ampul 12/13/17 11:52 12/14/17 04:03 Duoneb Neb (Prn) NEB 1 ampul Q2HR NEB PRN Administration sob/wheezing Furosemide 20 mg 12/14/17 09:00 12/14/17 08:12 Lasix PO 20 mg DAILY SUZAN Administration Methylprednisolone Sodium Succinate 40 mg 12/13/17 21:00 12/14/17 08:12 Solumedrol Inj IV.PUSH 40 mg Q12HR SUZAN Administration Morphine Sulfate 8 mg 12/13/17 23:00 12/14/17 11:10 Morphine Inj IV.PUSH 12/14/17 22:59 8 mg Q3HR SUZAN Administration Rivaroxaban 15 mg 12/14/17 12:00 12/14/17 11:16 Xarelto PO 15 mg DAILY@1200 SUZAN Administration Senna/Docusate Sodium 2 tab 12/13/17 21:00 12/14/17 08:12 Naa-Colace PO 2 tab BID SUZAN Administration Temazepam 15 mg 12/13/17 21:00 12/14/17 00:15 Restoril PO 15 mg HS PRN Administration INSOMNIA Voriconazole 200 mg 12/14/17 09:00 12/14/17 08:12 Vfend PO 200 mg DAILY SUZAN Administration Objective Remarks: GENERAL: Well-nourished, well-developed male patient. In no acute distress. SKIN: Warm and dry. Midline to right upper extremity, Dressing dry and intact. Bandage to right mid-back region dry/intact. HEAD: Normocephalic. EYES: No scleral icterus. No injection or drainage. NECK: Supple, trachea midline. CARDIOVASCULAR: Regular rate and rhythm without murmurs. RESPIRATORY: Posterior right breath sounds harsh. breath sounds equal bilaterally. No accessory muscle use. GASTROINTESTINAL: Abdomen round, firm, non-tender. EXTREMITIES: No cyanosis, or edema. MUSCULOSKELETAL: Adequate muscle tone. NEUROLOGICAL: No obvious focal deficit. Awake, alert, and oriented x3. PSYCHIATRIC: Appropriate mood and affect; insight and judgment normal. Assessment/Plan - Plan This is a pleasant 42-year-old male patient with a history of T-cell lymphoblastic lymphoma. He is status post 5 cycles of CHOP chemotherapy and radiation. He was admitted to [facility] in the first part of November with increasing shortness of breath, recurrent pleural effusion. He had a bronchoscopic evaluation and cytology sent from the pleural fluid, which showed recurrence of his T-cell lymphoblastic lymphoma. He is currently under the care of the lymphoma specialist, Dr. Adis Garcia at [facility] who recommended ICE chemotherapy. He was being scheduled for inpatient second line, bone marrow preparatory regimen with ifosfamide, etoposide and carboplatin when he presented to the emergency room at [facility] with increasing shortness of breath. He is found to have a significant recurrence of his right-sided pleural effusion. He underwent a thoracentesis on 12/13/17. Plan: 1. We will start his ICE chemotherapy today. 2. Continue to monitor labs accordingly. 3. History of DVT. Remains on eliquis for anticoagulation. 4. Right-sided pleural effusion, s/p thoracentesis on 12/13/17 with 1,000ml clear , yellowish brown fluid removed. Continue to monitor respiratory status. 5. Continue supportive care. - Attending Statement The exam, history, and the medical decision-making described in the above note were completed with the assistance of the mid-level provider. I reviewed and agree with the findings presented. I attest that I had a [id number] encounter with the patient on the same day, and personally performed and documented my assessment and findings in the medical record. Patient seen and examined, vital signs, labs, medications previous pathology and oncology notes reviewed. Patient with relapsed peripheral T-cell lymphoma. Status post thoracentesis yesterday with aspiration of fluid from the right hemithorax. He was admitted for initiation of ICE chemotherapy. Orders are in, plan to start later today. Patient expresses some frustration at not being able to start treatment up until this afternoon as this will hold up his eventual discharge from the hospital. I did try to explain to him that chemotherapy administration has been delayed because we have had to call in an extra chemo certified nurse given the late addition. Additionally chemotherapy has to be dosed and measured and prepared by a pharmacist. Otherwise he reports feeling reasonably well, he tells me he feels comfortable other than having some tenderness at the site of thoracentesis performed yesterday.
[2017-12-14] MEDS: Granisetron 1 MG/ML Vial IV.PUSH SCH (13:47)
[2017-12-14] MEDS: Dexamethasone Inj 20 MG in Sodium Chlor 0.9% Inj 50 ML IV.SIG SCH (13:49)
[2017-12-14] MEDS: Etoposide Inj 200 MG in Sodium Chlor 0.9% Inj 500 ML IV.SIG SCH (14:56)
[2017-12-15] MEDS ORDERED: Morphine Sulfate Inj 8 MG/ML Vial IV.PUSH PRN (00:04)
[2017-12-15] MEDS: Morphine Inj 4 MG/ML Vial IV.PUSH PRN ×8 (00:42→23:08)
[2017-12-15] MEDS: LORazepam 0.5 MG Tablet PO PRN ×4 (00:43→19:43)
[2017-12-15 04:32] LABS: Baso % (Auto) 0.2 % (0.0-2.0); Hematocrit 38.5 % (39.0-51.0); Hemoglobin 12.8 gm/dL (13.0-17.0); Lymph # (Auto) 0.2 th/mm3 (1.0-4.8); Lymph % (Auto) 1.5 % (9.0-44.0); Mean Corpuscular HGB Conc 33.3 % (32.0-36.0); Mean Corpuscular Hemoglobin 27.6 pg (27.0-34.0); Mean Platelet Volume 7.1 fL (7.0-11.0); Mono # (Auto) 0.5 th/mm3 (0.0-0.9); Mono % (Auto) 4.3 % (0.0-8.0); Neut # (Auto) 10.6 th/mm3 (1.8-7.7); Platelet Count 272 th/mm3 (150-450); Red Blood Count 4.64 mil/mm3 (4.50-5.90); White Blood Count 11.3 th/mm3 (4.0-11.0)
[2017-12-15 04:56] LABS: Alanine Aminotransferase 50 U/L (12-78); Albumin 3.2 g/dL (3.4-5.0); Anion Gap 10 meq/L (5-15); Aspartate Aminotransferase 31 U/L (15-37); Blood Urea Nitrogen 21 mg/dL (7-18); Calcium 9.3 mg/dL (8.5-10.1); Carbon Dioxide 27.5 meq/L (21.0-32.0); Chloride 100 meq/L (98-107); Glomerular Filtration Rate 76 mL/min (>89); Glucose,Random 184 mg/dL (74-106); Magnesium 2.5 mg/dL (1.5-2.5); Potassium 4.6 meq/L (3.5-5.1); Sodium 137 meq/L (136-145)
[2017-12-15 05:04] LABS: Alkaline Phosphatase 76 U/L (45-117); Total Protein 6.7 g/dL (6.4-8.2)
[2017-12-15] MEDS: Voriconazole 200 MG Tablet PO SCH (08:32)
[2017-12-15] MEDS: Furosemide 20 MG Tablet PO SCH (08:32)
[2017-12-15] MEDS: Senna/Docusate Sodium 8.6/50 MG Tablet PO SCH ×2 (08:32→22:13)
[2017-12-15] MEDS: MethylPREDNISolone Sod Succinate Inj 40 MG/ML Vial IV.PUSH SCH ×2 (08:32→22:13)
[2017-12-15] MEDS ORDERED: Rivaroxaban 15 MG Tablet PO SCH (09:00)
--- NOTE | 2017-12-15 11:48 | P.PNONC ---
Subjective Interval history: Afebrile. Patient states that he is very agitated at the timeline for his chemotherapy administration. The process has been explained to him in great detail and his questions have been answered. He has no other complaints at this time. Objective Vital Signs/Intake & Output: Vital Signs 12/14/17 13:09 12/14/17 15:00 12/14/17 20:00 Temperature 97.6 F Pulse Rate 112 H 108 H 112 H Respiratory Rate 20 16 Blood Pressure 147/104 H Pulse Oximetry 91 L 12/14/17 20:18 12/14/17 21:14 12/15/17 00:00 Temperature Pulse Rate 94 H 106 H Respiratory Rate 18 12 Blood Pressure Pulse Oximetry 12/15/17 00:49 12/15/17 01:12 12/15/17 03:00 Temperature 98.1 F Pulse Rate 104 H Respiratory Rate 17 16 16 Blood Pressure 151/99 H Pulse Oximetry 93 L 12/15/17 03:38 12/15/17 04:00 12/15/17 06:34 Temperature 97.9 F Pulse Rate 102 H 107 H Respiratory Rate 16 18 Blood Pressure 151/102 H Pulse Oximetry 90 L 12/15/17 07:50 12/15/17 08:41 Temperature 98.4 F Pulse Rate 98 H 111 H Respiratory Rate 14 18 Blood Pressure 139/105 H Pulse Oximetry 97 Intake & Output 12/14/17 12/15/17 12/15/17 18:59 06:59 18:59 Intake Total 1295 / 1295 1470 / 1470 Output Total 1000 / 1000 950 / 950 Balance 1295 / 1295 470 / 470 -950 / -950 Weight 95.1 kg Intake: IV 55 / 55 510 / 510 Decadron Inj 20 MG In NS Inj 50 55 / 55 ML @ 330 mls/hr IV.SIG Q24H SUZAN Rx#:[id number] Vepesid Inj 200 MG In NS Inj 510 / 510 500 ML @ 510 mls/hr IV.SIG Q24H SUZAN Rx#:[id number] Oral 1240 / 1240 960 / 960 Output: Urine 1000 / 1000 950 / 950 Other: # Voids 7 Date of Last Bowel Movement 12/13/17 12/13/17 12/13/17 Result Diagrams: 12/15/17 03:57 12/15/17 03:57 Laboratory Results: Laboratory Results - last 24 hr 12/15/17 12/15/17 03:57 03:57 WBC 11.3 H RBC 4.64 Hgb 12.8 L Hct 38.5 L MCV 83.0 MCH 27.6 MCHC 33.3 RDW 17.0 Plt Count 272 MPV 7.1 Neut % (Auto) 94.0 H Lymph % (Auto) 1.5 L [place] % (Auto) 4.3 Eos % (Auto) 0.0 Baso % (Auto) 0.2 Neut # (Auto) 10.6 H Lymph # (Auto) 0.2 L [place] # (Auto) 0.5 Eos # (Auto) 0.0 Baso # (Auto) 0.0 WBC Differential . Differential Comment Auto diff final Sodium 137 Potassium 4.6 Chloride 100 Carbon Dioxide 27.5 Anion Gap 10 BUN 21 H Creatinine 1.07 Estimated GFR 76 L Random Glucose 184 H Calcium 9.3 Magnesium 2.5 Total Bilirubin 0.3 AST 31 ALT 50 Alkaline Phosphatase 76 Total Protein 6.7 Albumin 3.2 L Culture Results: Microbiology 12/13/17 14:41 Gram Stain - Final Fluid - Pleural fluid Body Fluid Culture - Preliminary No growth in 48 hours 12/13/17 14:41 Fungal Smear - Final Fluid - Pleural fluid No fungal elements seen Medications: Active Medications Generic Name Dose Route Start Last Admin Trade Name Freq PRN Reason Stop Dose Admin Albuterol 1 ampul 12/13/17 14:00 12/15/17 07:50 Duoneb Neb (Suzan) NEB 1 ampul Q6HR WHILE AWAKE NEB SUZAN Administration Albuterol 1 ampul 12/13/17 11:52 12/14/17 04:03 Duoneb Neb (Prn) NEB 1 ampul Q2HR NEB PRN Administration sob/wheezing Furosemide 20 mg 12/14/17 09:00 12/15/17 08:32 Lasix PO 20 mg DAILY SUZAN Administration Granisetron HCl 1 mg 12/14/17 12:30 12/14/17 13:47 Kytril Inj IV.PUSH 12/16/17 12:31 1 mg Q24H SUZAN Administration Etoposide 200 mg/ Sodium 510 mls @ 510 mls/hr 12/14/17 13:00 12/14/17 19:30 Chloride IV.SIG 12/15/17 13:59 Infused Q24H SUZAN Infusion Dexamethasone Sodium Phosphate 55 mls @ 330 mls/hr 12/14/17 12:30 12/14/17 14 :55 20 mg/ Sodium Chloride IV.SIG 12/16/17 12:39 Infused Q24H SUZAN Infusion Lorazepam 0.5 mg 12/13/17 20:01 12/15/17 06:43 Ativan PO 0.5 mg Q6H PRN Administration ANXIETY Methylprednisolone Sodium Succinate 40 mg 12/13/17 21:00 12/15/17 08:32 Solumedrol Inj IV.PUSH 40 mg Q12HR SUZAN Administration Morphine Sulfate 8 mg 12/15/17 00:45 12/15/17 09:54 Morphine Inj IV.PUSH 12/16/17 08:30 8 mg Q3H PRN Administration PAIN > 5 Rivaroxaban 15 mg 12/14/17 12:00 12/14/17 11:16 Xarelto PO 15 mg DAILY@1200 SUZAN Administration Senna/Docusate Sodium 2 tab 12/13/17 21:00 12/15/17 08:32 Naa-Colace PO 2 tab BID SUZAN Administration Temazepam 15 mg 12/13/17 21:00 12/14/17 00:15 Restoril PO 15 mg HS PRN Administration INSOMNIA Voriconazole 200 mg 12/14/17 09:00 12/15/17 08:32 Vfend PO 200 mg DAILY SUZAN Administration Objective Remarks: GENERAL: Well-nourished, well-developed male patient. In no acute distress. SKIN: Warm and dry. Midline to right upper extremity, Dressing dry and intact. HEAD: Normocephalic. EYES: No scleral icterus. No injection or drainage. NECK: Supple, trachea midline. CARDIOVASCULAR: Regular rate and rhythm without murmurs. RESPIRATORY: Posterior right breath sounds coarse, breath sounds equal bilaterally. No accessory muscle use. GASTROINTESTINAL: Abdomen round, firm, non-tender. EXTREMITIES: No cyanosis, or edema. MUSCULOSKELETAL: Adequate muscle tone. NEUROLOGICAL: No obvious focal deficit. Awake, alert, and oriented x3. PSYCHIATRIC: Agitated; normal insight and judgment normal. Assessment/Plan - Plan This is a pleasant 42-year-old male patient with a history of T-cell lymphoblastic lymphoma. He is status post 5 cycles of CHOP chemotherapy and radiation. He was admitted to [facility] in the first part of November with increasing shortness of breath, recurrent pleural effusion. He had a bronchoscopic evaluation and cytology sent from the pleural fluid, which showed recurrence of his T-cell lymphoblastic lymphoma. He is currently under the care of the lymphoma specialist, Dr. Adis Garcia at [facility] who recommended ICE chemotherapy. He was being scheduled for inpatient second line, bone marrow preparatory regimen with ifosfamide, etoposide and carboplatin when he presented to the emergency room at [facility] with increasing shortness of breath. He is found to have a significant recurrence of his right-sided pleural effusion. He underwent a thoracentesis on 12/13/17. Plan: 1. We will continue his ice chemotherapy today. 2. Continue to monitor labs accordingly. 3. History of DVT. Remains on eliquis for anticoagulation. 4. Right-sided pleural effusion, s/p thoracentesis on 12/13/17 with 1,000ml clear , yellowish brown fluid removed. Continue to monitor respiratory status. 5. Continue supportive care.
--- NOTE | 2017-12-15 12:41 | P.PNIM ---
Subjective Interval history: Pt is a pleasant 42-year-old male with a hx of non-hodgkin lymphoma who presents the emergency department with chest pain and shortness of breath. He states that 2 days ago he started having tightness in his chest that would worsen with positioning himself on the R side, along with SOB that worsens with laying on his R side, and with taking deep breaths. Pt states that these sxs are very similar to the other times he has had pleural effusion that required Thoracocentesis. He state that his last thoracocentesis was 2 weeks ago and 1000 cc fluid was removed. Pt was diagnosed with non-Hodgkin's T cell lymphoma April last year, had been in remission following chemotherapy until several weeks ago. He is a patient of Dr. Leigh, and states that he will soon have a port place for new round of chemo. Denies, diaphoresis, Fever, chills, nausea, vomiting, abdominal pain, melena, hematochezia. 12-14 Patient is in bed he says pain is fairly controlled by medications. No nausea vomiting. Has chest pain with inspiration. No fever or chills. No cough. 12-15 no new complaints WANTS TO GO HOME SOON POSSIBLE DW RN AND PT AND CM AND ONCOLOGY HAD THORACENTESIS ON 12-13 STATES BREATHING BETTER AWAIT PATHOLOGY Physical Exam Vital signs: Vital Signs 12/14/17 13:09 12/14/17 15:00 12/14/17 20:00 Temperature 97.6 F Pulse Rate 112 H 108 H 112 H Respiratory Rate 20 16 Blood Pressure 147/104 H Pulse Oximetry 91 L 12/14/17 20:18 12/14/17 21:14 12/15/17 00:00 Temperature Pulse Rate 94 H 106 H Respiratory Rate 18 12 Blood Pressure Pulse Oximetry 12/15/17 00:49 12/15/17 01:12 12/15/17 03:00 Temperature 98.1 F Pulse Rate 104 H Respiratory Rate 17 16 16 Blood Pressure 151/99 H Pulse Oximetry 93 L 12/15/17 03:38 12/15/17 04:00 12/15/17 06:34 Temperature 97.9 F Pulse Rate 102 H 107 H Respiratory Rate 16 18 Blood Pressure 151/102 H Pulse Oximetry 90 L 12/15/17 07:50 12/15/17 08:00 12/15/17 08:41 Temperature 98.4 F Pulse Rate 98 H 112 H 111 H Respiratory Rate 14 18 Blood Pressure 139/105 H Pulse Oximetry 97 12/15/17 12:00 Temperature Pulse Rate 107 H Respiratory Rate Blood Pressure Pulse Oximetry Intake & Output 12/14/17 12/15/17 12/15/17 18:59 06:59 18:59 Intake Total 1295 / 1295 1470 / 1470 Output Total 1000 / 1000 950 / 950 Balance 1295 / 1295 470 / 470 -950 / -950 Weight 95.1 kg Intake: IV 55 / 55 510 / 510 Decadron Inj 20 MG In NS Inj 50 55 / 55 ML @ 330 mls/hr IV.SIG Q24H BANDAR Rx#:[id number] Vepesid Inj 200 MG In NS Inj 510 / 510 500 ML @ 510 mls/hr IV.SIG Q24H BANDAR Rx#:[id number] Oral 1240 / 1240 960 / 960 Output: Urine 1000 / 1000 950 / 950 Other: # Voids 7 Date of Last Bowel Movement 12/13/17 12/13/17 12/13/17 Narrative: Physical exam: GENERAL: SKIN: Warm and dry. HEAD: Atraumatic. Normocephalic. EYES: Pupils equal and round. No scleral icterus. No injection or drainage. ENT: No nasal bleeding or discharge. Mucous membranes pink and moist. NECK: Trachea midline. No JVD. CARDIOVASCULAR: Regular rate and rhythm. RESPIRATORY: No accessory muscle use. Breath sounds equal bilaterally. Decrease breath sound on the R upper , mid, and lower lobe with scattered rales GASTROINTESTINAL: Abdomen soft, non-tender, nondistended. Hepatic and splenic margins not palpable. MUSCULOSKELETAL: Extremities without clubbing, cyanosis, or edema. No obvious deformities. NEUROLOGICAL: Awake and alert. No obvious cranial nerve deficits. Motor grossly within normal limits. Five out of 5 muscle strength in the arms and legs. Normal speech. PSYCHIATRIC: Appropriate mood and affect; insight and judgment normal. Results - Labs CBC & Chem 7: 12/15/17 03:57 12/15/17 03:57 Laboratory Results - last 24 hr 12/15/17 12/15/17 03:57 03:57 WBC 11.3 H RBC 4.64 Hgb 12.8 L Hct 38.5 L MCV 83.0 MCH 27.6 MCHC 33.3 RDW 17.0 Plt Count 272 MPV 7.1 Neut % (Auto) 94.0 H Lymph % (Auto) 1.5 L [place] % (Auto) 4.3 Eos % (Auto) 0.0 Baso % (Auto) 0.2 Neut # (Auto) 10.6 H Lymph # (Auto) 0.2 L [place] # (Auto) 0.5 Eos # (Auto) 0.0 Baso # (Auto) 0.0 WBC Differential . Differential Comment Auto diff final Sodium 137 Potassium 4.6 Chloride 100 Carbon Dioxide 27.5 Anion Gap 10 BUN 21 H Creatinine 1.07 Estimated GFR 76 L Random Glucose 184 H Calcium 9.3 Magnesium 2.5 Total Bilirubin 0.3 AST 31 ALT 50 Alkaline Phosphatase 76 Total Protein 6.7 Albumin 3.2 L Microbiology 12/13/17 14:41 Fluid - Pleural fluid Gram Stain - Final 12/13/17 14:41 Fluid - Pleural fluid Body Fluid Culture - Preliminary No growth in 48 hours - Procedures INDICATIONS: Right pleural effusion with dyspnea. CLINICAL DATA: This is the patient's subsequent encounter. Patient reports that signs and symptoms have been present for 7 - 11 months and indicates a pain score of 10/10. MEDICAL/SURGICAL HISTORY: . Non-Hodgkin's T-cell Lymphoma. Blood clots. . Thoracentesis. Chemotherapy. COMPARISON: [facility] [place] GUIDED THORACENTESIS RIGHT, 05/08/2017. . FLUID: Total volume of 1,000cc clear, yellowish brown cc of . fluid was removed. Fluid was sent to lab for ordered studies. . . TECHNIQUE: Ultrasound guidance for thoracentesis. Thoracentesis. The risks, benefits, and alternatives to ultrasound guided thoracentesis were explained to the patient in lay simple terms, including the risk of bleeding and infection. Written and verbal informed consent was obtained. Appropriate area for right thoracentesis was marked under ultrasound guidance with the patient in the upright position. Overlying skin was prepped and draped in the usual sterile fashion and with local anesthetic, a dermatotomy was made with an 11 blade scalpel. A 6 [place] thoracentesis catheter was placed in the pleural space and fluid was removed. Catheter was then removed and a sterile dressing applied. There were no immediate complications. The patient tolerated the procedure well and the left the ultrasound suite in stable condition. Chest radiograph is to be obtained. FINDINGS: After obtaining consent, an ultrasound-guided right thoracentesis was performed as described above. Patient tolerated the procedure well without complications. CONCLUSION: 1. Successful ultrasound-guided right thoracentesis Assessment and Plan - Plan Acute on chronic respiratory failure requiring O2 and thoracentesis on admission Respiratory Distress secondary to increased in size Pleural Effusion: CXR reveals significant pleural effusion of R lung. Continue DuoNeb, salmeterol, steroids and Lasix S/p Thoracocentesis with significant improvement Non-Hodgkin T cell lymphoma: pt was in remission until recently. hem onc consulted Dr Leigh, which per pt, will initiate chemotherapy after port placement soon next week. initiation of ICE chemotherapy per hem/onc AWAIT PATHOLOGY FROM THE THORACENTESIS DVT ppx continue Pradaxa Code Status: FULL CODE Discussed Condition With: ONCOLOGY AND RN AND PT AND CM Discharge Planning: PENDING ONCOLOGY CLEARANCE
[2017-12-15] MEDS: Granisetron 1 MG/ML Vial IV.PUSH SCH (12:54)
[2017-12-15] MEDS: Dexamethasone Inj 20 MG in Sodium Chlor 0.9% Inj 50 ML IV.SIG SCH (12:55)
[2017-12-15] MEDS: Rivaroxaban 15 MG Tablet PO SCH (12:57)
[2017-12-15] MEDS: Etoposide Inj 200 MG in Sodium Chlor 0.9% Inj 500 ML IV.SIG SCH (13:43)
[2017-12-15] MEDS ORDERED: CARBOplatin Inj 750 MG in Sodium Chlor 0.9% Inj 250 ML IV.SIG SCH (14:30)
[2017-12-15] MEDS ORDERED: MESNA IV.SIG SCH (15:00)
[2017-12-15] MEDS ORDERED: IFOSFAMIDE IV.SIG SCH (15:00)
[2017-12-15] MEDS ORDERED: SOD CHLORIDE 0.9% IV.SIG SCH (15:00)
[2017-12-15] MEDS: Sod Chloride 0.9% Inj 1,000 ML IV.SIG SCH ×4 (16:10→22:57)
[2017-12-16] MEDS: Sod Chloride 0.9% Inj 1,000 ML IV.SIG SCH ×3 (00:23→20:56)
[2017-12-16] MEDS: Morphine Inj 4 MG/ML Vial IV.PUSH PRN ×2 (02:45→07:12)
[2017-12-16] MEDS: LORazepam 0.5 MG Tablet PO PRN ×2 (02:56→10:58)
[2017-12-16] MEDS: MethylPREDNISolone Sod Succinate Inj 40 MG/ML Vial IV.PUSH SCH ×2 (08:42→20:55)
[2017-12-16] MEDS: Senna/Docusate Sodium 8.6/50 MG Tablet PO SCH ×2 (08:42→20:56)
[2017-12-16] MEDS: Voriconazole 200 MG Tablet PO SCH (08:42)
[2017-12-16] MEDS: Furosemide 20 MG Tablet PO SCH (08:49)
--- NOTE | 2017-12-16 09:05 | P.PNONC ---
Subjective Interval history: Afebrile Pt sitting up in bed in no obvious distress Has some mild erythema around IV site that he reports is from tape that was on the site previously No pain with chemo infusion or flushing Mid-line IV site has excellent blood return Breathing is "ok" Anxious to go home Objective Vital Signs/Intake & Output: Vital Signs 12/15/17 12:00 12/15/17 14:31 12/15/17 17:00 Temperature 98.4 F 97.4 F L Pulse Rate 110 H 107 H 107 H Respiratory Rate 20 15 18 Blood Pressure 159/82 H 137/93 H Pulse Oximetry 96 94 L 12/15/17 17:21 12/15/17 19:00 12/15/17 19:51 Temperature 98 F Pulse Rate 113 H 112 H 109 H Respiratory Rate 14 Blood Pressure 149/99 H Pulse Oximetry 93 L 95 12/15/17 20:01 12/15/17 23:00 12/16/17 00:00 Temperature 97.6 F Pulse Rate 117 H 108 H 102 H Respiratory Rate 20 Blood Pressure 148/99 H Pulse Oximetry 93 L 12/16/17 01:56 12/16/17 03:00 12/16/17 05:14 Temperature 97.9 F Pulse Rate 99 H 101 H Respiratory Rate 16 18 Blood Pressure 139/89 Pulse Oximetry 94 L 12/16/17 07:11 12/16/17 07:41 12/16/17 08:14 Temperature 97.7 F Pulse Rate 97 H 98 H 99 H Respiratory Rate 18 16 Blood Pressure 154/85 H Pulse Oximetry 95 Intake & Output 12/15/17 12/16/17 12/16/17 18:59 06:59 18:59 Intake Total 2024 / 2024 1480 / 1480 Output Total 2350 / 2350 700 / 700 Balance -325 / -325 780 / 780 Weight 218 lb 4.122 oz 223 lb 8.78 oz Intake: IV 325 / 325 1000 / 1000 Paraplatin Inj 750 MG In NS Inj 325 / 325 250 ML @ 650 mls/hr IV.SIG Q24H SUZAN Rx#:[id number] NS Inj 1,000 ML @ 250 mls/hr IV 1000 / 1000 .SIG .Q4H SUZAN Rx#:[id number] Oral 1700 / 1700 480 / 480 Output: Urine 2350 / 2350 700 / 700 Other: Date of Last Bowel Movement 12/13/17 12/13/17 12/15/17 Result Diagrams: 12/16/17 16:00 12/16/17 16:00 Laboratory Results: Laboratory Results - last 24 hr 12/15/17 15:05 Urine Occult Blood Negative Culture Results: Microbiology 12/13/17 14:41 Acid Fast Bacilli Smear - Final Fluid - Pleural fluid No acid fast bacilli seen 12/13/17 14:41 Gram Stain - Final Fluid - Pleural fluid Body Fluid Culture - Preliminary No growth in 48 hours 12/13/17 14:41 Fungal Smear - Final Fluid - Pleural fluid No fungal elements seen Medications: Active Medications Generic Name Dose Route Start Last Admin Trade Name Freq PRN Reason Stop Dose Admin Albuterol 1 ampul 12/13/17 14:00 12/16/17 08:12 Duoneb Neb (Suzan) NEB 1 ampul Q6HR WHILE AWAKE NEB SUZAN Administration Albuterol 1 ampul 12/13/17 11:52 12/14/17 04:03 Duoneb Neb (Prn) NEB 1 ampul Q2HR NEB PRN Administration sob/wheezing Bisacodyl 10 mg 12/13/17 10:20 12/15/17 19:47 Dulcolax Supp RECTAL 10 mg DAILY PRN Administration SEVERE CONSITIPATION Furosemide 20 mg 12/14/17 09:00 12/16/17 08:49 Lasix PO 20 mg DAILY SUZAN Administration Granisetron HCl 1 mg 12/14/17 12:30 12/15/17 12:54 Kytril Inj IV.PUSH 12/16/17 12:31 1 mg Q24H SUZAN Administration Ifosfamide 10,000 mg/ [place] 10 1,100 mls @ 45.833 mls/hr 12/15/17 15:00 12/15 20:32 ,000 mg/ Sodium Chloride IV.SIG 12/16/17 14:59 45.83 mls/hr Q24H SUZAN Administration Dexamethasone Sodium Phosphate 55 mls @ 330 mls/hr 12/14/17 12:30 12/15/17 12 :55 20 mg/ Sodium Chloride IV.SIG 12/16/17 12:39 330 mls/hr Q24H SUZAN Administration Sodium Chloride 1,000 mls @ 100 mls/hr 12/15/17 15:00 12/16/17 02:44 Ns Inj IV.SIG 12/16/17 14:59 100 mls/hr .Q10H SUZAN Administration Lorazepam 0.5 mg 12/13/17 20:01 12/16/17 02:56 Ativan PO 0.5 mg Q6H PRN Administration ANXIETY Methylprednisolone Sodium Succinate 40 mg 12/13/17 21:00 12/16/17 08:42 Solumedrol Inj IV.PUSH 40 mg Q12HR SUZAN Administration Rivaroxaban 15 mg 12/14/17 12:00 12/15/17 12:57 Xarelto PO 15 mg DAILY@1200 SUZAN Administration Senna/Docusate Sodium 2 tab 12/13/17 21:00 12/16/17 08:42 Naa-Colace PO 2 tab BID SUZAN Administration Temazepam 15 mg 12/13/17 21:00 12/14/17 00:15 Restoril PO 15 mg HS PRN Administration INSOMNIA Voriconazole 200 mg 12/14/17 09:00 12/16/17 08:42 Vfend PO 200 mg DAILY SUZAN Administration Objective Remarks: GENERAL: Younger male sitting up in bed in no obvious distress SKIN: Warm and dry. HEAD: Normocephalic. EYES: No scleral icterus. No injection or drainage. NECK: Supple, trachea midline. No JVD or lymphadenopathy. CARDIOVASCULAR: Regular rate and rhythm without murmurs. RESPIRATORY: Breath sounds equal bilaterally. No accessory muscle use. GASTROINTESTINAL: Abdomen soft, non-tender, nondistended. EXTREMITIES: No cyanosis, or edema. Minimal erythema to right medial elbow. MUSCULOSKELETAL: Adequate muscle tone. NEUROLOGICAL: No obvious focal deficit. Awake, alert, and oriented x3. Assessment/Plan - Plan This is a pleasant 42-year-old male patient with a history of T-cell lymphoblastic lymphoma. He is status post 5 cycles of CHOP chemotherapy and radiation. He was admitted to [facility] in the first part of November with increasing shortness of breath, recurrent pleural effusion. He had a bronchoscopic evaluation and cytology sent from the pleural fluid, which showed recurrence of his T-cell lymphoblastic lymphoma. He is currently under the care of the lymphoma specialist, Dr. Adis Garcia at [facility] who recommended ICE chemotherapy. He was being scheduled for inpatient second line, bone marrow preparatory regimen with ifosfamide, etoposide and carboplatin when he presented to the emergency room at [facility] with increasing shortness of breath. He is found to have a significant recurrence of his right-sided pleural effusion. He underwent a thoracentesis on 12/13/17. Plan: 1. Continue chemotherapy. Chemo will end at approximately 8 PM this evening. He will need monitored for 6 hours for urine output once chemo complete. 2. Continue Xarelto for history of DVT. 3. Supportive care. 4. Patient will be clear for discharge once chemo complete, remains with good urine output. 5. Follow-up in clinic once discharged. Addendum: RN asked that I go back and see patient. He appears sleepy. Eyes closing occasionally during conversation. He reports that he feels increasingly weak; this started this morning. He denies shortness of breath. Reports that it feels somewhat difficult to take a deep breath due to "big belly". Complains of some left neck soreness. He is able to completely turn his neck from side to side. He denies chest pain. He denies dizziness. O2 sats 93% on room air. I have ordered a repeat chest x-ray as well as repeat labs as well as a d- dimer. I have decreased the frequency and amount of his IV morphine. Further recommendations based off response to therapy and lab results. - Attending Statement The exam, history, and the medical decision-making described in the above note were completed with the assistance of the mid-level provider. I reviewed and agree with the findings presented. I attest that I had a [id number] encounter with the patient on the same day, and personally performed and documented my assessment and findings in the medical record. Report of patient being too sleepy or altered noted this afternoon. He attributes it to a combination of lorazepam and his pain medication. He was quite animated in the evening. He had no shortness of breath. He is good lungs to discuss his case. He denies any abdominal pain. The chest x-ray and x -ray of the abdomen will be discontinued. His symptoms if there were ileus has resolved. He managed to eat his dinner without any event. Treatment for his constipation is encouraged. We discussed that there was no change in plan or any alteration in the goal of therapy. Our goal is to administer his chemotherapy per protocol, given the unforeseen delays that resulted in his completing his chemotherapy this evening rather than this morning. Therefore he will be planned for discharge in the morning. Neulasta support has been ordered in clinic. We discussed his pain regimen at home. He has been taking short acting MSIR 30 mg on a as needed basis. He averages about 4 doses per day. He has average more doses of pain medication presumably from the increased pain post his procedure. He states his pain is a 10 which goes down to 2 after dose of morphine 8 mg IV. His pain medication will start to increase up to a 6 at which time he will request his next dose. We discussed transitioning him over to his oral regimen. He has been 3 days since his procedure. He has other musculoskeletal pain that probably does not require his morphine. He has MSIR 30 mg will be scheduled every 6 hours. He will be allowed his breakthrough medication of morphine 8 mg IV as needed every 4 hours. He was advised that no pain medication will be given to him if he appears altered or if respiratory depression occurs. Labs for tomorrow was DC'd. His hemoglobin is stable. Cytopenias are not anticipated until later. His chemistry is normal. Plan to discharge tomorrow. Midline pending removal tomorrow.
[2017-12-16] MEDS ORDERED: Morphine Sulfate Inj 8 MG/ML Vial IV.PUSH PRN ×2 (10:00→17:51)
[2017-12-16] MEDS ORDERED: Morphine Inj 4 MG/ML Vial IV.PUSH PRN ×3 (10:57→22:30)
[2017-12-16] MEDS: Rivaroxaban 15 MG Tablet PO SCH (11:03)
[2017-12-16 11:24] LABS: INR 1.1 Ratio; Prothrombin Time 10.7 sec (9.8-11.6)
[2017-12-16 11:26] LABS: Baso % (Auto) 0.1 % (0.0-2.0); Hematocrit 34.6 % (39.0-51.0); Hemoglobin 11.4 gm/dL (13.0-17.0); Lymph % (Auto) 0.7 % (9.0-44.0); Mean Corpuscular HGB Conc 32.8 % (32.0-36.0); Mean Corpuscular Hemoglobin 27.5 pg (27.0-34.0); Mean Corpuscular Volume 83.7 fL (80.0-100.0); Mean Platelet Volume 7.2 fL (7.0-11.0); Mono # (Auto) 0.3 th/mm3 (0.0-0.9); Mono % (Auto) 4.4 % (0.0-8.0); Neut % (Auto) 94.8 % (16.0-70.0); Platelet Count 213 th/mm3 (150-450); Red Blood Count 4.13 mil/mm3 (4.50-5.90); Red Cell Distribution Width 16.9 % (11.6-17.2); White Blood Count 7.4 th/mm3 (4.0-11.0)
[2017-12-16 11:49] LABS: Alanine Aminotransferase 45 U/L (12-78); Albumin 2.7 g/dL (3.4-5.0); Anion Gap 8 meq/L (5-15); Aspartate Aminotransferase 21 U/L (15-37); Blood Urea Nitrogen 18 mg/dL (7-18); Calcium 8.8 mg/dL (8.5-10.1); Chloride 105 meq/L (98-107); Glomerular Filtration Rate Greater Than 89 mL/min (>89); Glucose,Random 206 mg/dL (74-106); Magnesium 2.4 mg/dL (1.5-2.5); Potassium 4.4 meq/L (3.5-5.1); Sodium 139 meq/L (136-145)
[2017-12-16 11:58] LABS: Alkaline Phosphatase 65 U/L (45-117); Free T4 (Free Thyroxine) 0.99 ng/dL (0.76-1.46); Phosphorus 2.4 mg/dL (2.5-4.9); Thyroid Stimulating Hormone 0.111 uIU/mL (0.358-3.740); Total Protein 5.9 g/dL (6.4-8.2)
[2017-12-16] MEDS: Granisetron 1 MG/ML Vial IV.PUSH SCH (12:52)
[2017-12-16] MEDS: Dexamethasone Inj 20 MG in Sodium Chlor 0.9% Inj 50 ML IV.SIG SCH (12:52)
--- NOTE | 2017-12-16 15:24 | P.PNIM ---
Subjective Interval history: Pt is a pleasant 42-year-old male with a hx of non-hodgkin lymphoma who presents the emergency department with chest pain and shortness of breath. He states that 2 days ago he started having tightness in his chest that would worsen with positioning himself on the R side, along with SOB that worsens with laying on his R side, and with taking deep breaths. Pt states that these sxs are very similar to the other times he has had pleural effusion that required Thoracocentesis. He state that his last thoracocentesis was 2 weeks ago and 1000 cc fluid was removed. Pt was diagnosed with non-Hodgkin's T cell lymphoma April last year, had been in remission following chemotherapy until several weeks ago. He is a patient of Dr. Leigh, and states that he will soon have a port place for new round of chemo. Denies, diaphoresis, Fever, chills, nausea, vomiting, abdominal pain, melena, hematochezia. 12-14 Patient is in bed he says pain is fairly controlled by medications. No nausea vomiting. Has chest pain with inspiration. No fever or chills. No cough. 12-15 no new complaints WANTS TO GO HOME SOON POSSIBLE TIM RN AND PT AND CM AND ONCOLOGY HAD THORACENTESIS ON 12-13 STATES BREATHING BETTER AWAIT PATHOLOGY 12-16 HOPEFULLY HOME TOMORROW AM LABS TIM RN AND PT FINISHING UP CHEMO LATER TONIGHT CONTINUE SAME Physical Exam Vital signs: Vital Signs 12/15/17 17:00 12/15/17 17:21 12/15/17 19:00 Temperature 97.4 F L 98 F Pulse Rate 107 H 113 H 112 H Respiratory Rate 18 Blood Pressure 137/93 H 149/99 H Pulse Oximetry 94 L 93 L 12/15/17 19:51 12/15/17 20:01 12/15/17 23:00 Temperature 97.6 F Pulse Rate 109 H 117 H 108 H Respiratory Rate 14 20 Blood Pressure 148/99 H Pulse Oximetry 95 93 L 12/16/17 00:00 12/16/17 01:56 12/16/17 03:00 Temperature 97.9 F Pulse Rate 102 H 99 H Respiratory Rate 16 18 Blood Pressure 139/89 Pulse Oximetry 94 L 12/16/17 05:14 12/16/17 07:11 12/16/17 07:41 Temperature 97.7 F Pulse Rate 101 H 97 H 98 H Respiratory Rate 18 Blood Pressure 154/85 H Pulse Oximetry 95 12/16/17 08:14 12/16/17 11:10 12/16/17 12:00 Temperature 97.9 F Pulse Rate 99 H 101 H 105 H Respiratory Rate 16 18 Blood Pressure 148/93 H Pulse Oximetry 94 L 12/16/17 12:08 Temperature Pulse Rate 101 H Respiratory Rate Blood Pressure Pulse Oximetry Intake & Output 12/15/17 12/16/17 12/16/17 18:59 06:59 18:59 Intake Total 2080 / 2080 1480 / 1480 Output Total 2350 / 2350 700 / 700 Balance -270 / -270 780 / 780 Weight 99 kg 101.4 kg Intake: IV 380 / 380 1000 / 1000 Paraplatin Inj 750 MG In NS Inj 325 / 325 250 ML @ 650 mls/hr IV.SIG Q24H BANDAR Rx#:[id number] Decadron Inj 20 MG In NS Inj 50 55 / 55 ML @ 330 mls/hr IV.SIG Q24H BANDAR Rx#:[id number] NS Inj 1,000 ML @ 250 mls/hr IV 1000 / 1000 .SIG .Q4H BANDAR Rx#:[id number] Oral 1700 / 1700 480 / 480 Output: Urine 2350 / 2350 700 / 700 Other: Date of Last Bowel Movement 12/13/17 12/13/17 12/15/17 Narrative: Physical exam: GENERAL: Awake alert and oriented 3 talkative and cooperative SKIN: Warm and dry. HEAD: Atraumatic. Normocephalic. EYES: Pupils equal and round. No scleral icterus. No injection or drainage. ENT: No nasal bleeding or discharge. Mucous membranes pink and moist. NECK: Trachea midline. No JVD. CARDIOVASCULAR: Regular rate and rhythm. RESPIRATORY: No accessory muscle use. Breath sounds equal bilaterally. Decrease breath sound on the R upper , mid, and lower lobe with scattered rales GASTROINTESTINAL: Abdomen soft, non-tender, nondistended. Hepatic and splenic margins not palpable. MUSCULOSKELETAL: Extremities without clubbing, cyanosis, or edema. No obvious deformities. NEUROLOGICAL: Awake and alert. No obvious cranial nerve deficits. Motor grossly within normal limits. Five out of 5 muscle strength in the arms and legs. Normal speech. PSYCHIATRIC: Appropriate mood and affect; insight and judgment normal. Results - Labs CBC & Chem 7: 12/16/17 10:40 12/16/17 10:40 Laboratory Results - last 24 hr 12/15/17 12/16/17 12/16/17 15:05 10:40 10:40 WBC 7.4 RBC 4.13 L Hgb 11.4 L Hct 34.6 L MCV 83.7 MCH 27.5 MCHC 32.8 RDW 16.9 Plt Count 213 MPV 7.2 Neut % (Auto) 94.8 H Lymph % (Auto) 0.7 L Brooke % (Auto) 4.4 Eos % (Auto) 0.0 Baso % (Auto) 0.1 Neut # (Auto) 7.0 Lymph # (Auto) 0.0 L Brooke # (Auto) 0.3 Eos # (Auto) 0.0 Baso # (Auto) 0.0 WBC Differential . Differential Comment Auto diff final PT INR Sodium 139 Potassium 4.4 Chloride 105 Carbon Dioxide 26.0 Anion Gap 8 BUN 18 Creatinine 0.88 Estimated GFR Greater than 89 Random Glucose 206 H Calcium 8.8 Phosphorus 2.4 L Magnesium 2.4 Total Bilirubin 0.2 AST 21 ALT 45 Alkaline Phosphatase 65 Total Protein 5.9 L D Albumin 2.7 L TSH 0.111 L Free T4 0.99 Urine Occult Blood Negative 12/16/17 10:40 WBC RBC Hgb Hct MCV MCH MCHC RDW Plt Count MPV Neut % (Auto) Lymph % (Auto) Brooke % (Auto) Eos % (Auto) Baso % (Auto) Neut # (Auto) Lymph # (Auto) Brooke # (Auto) Eos # (Auto) Baso # (Auto) WBC Differential Differential Comment PT 10.7 INR 1.1 Sodium Potassium Chloride Carbon Dioxide Anion Gap BUN Creatinine Estimated GFR Random Glucose Calcium Phosphorus Magnesium Total Bilirubin AST ALT Alkaline Phosphatase Total Protein Albumin TSH Free T4 Urine Occult Blood Microbiology 12/13/17 14:41 Fluid - Pleural fluid Gram Stain - Final 12/13/17 14:41 Fluid - Pleural fluid Body Fluid Culture - Final No growth in 72 hours (aerobically and anaerobically ) 12/13/17 14:41 Fluid - Pleural fluid Acid Fast Bacilli Smear - Final No acid fast bacilli seen - Imaging Chest X-Ray 12/13/17 00:00 CONCLUSION: 1. No pneumothorax status post thoracentesis. 2. The right lung remains completely opacified. Thoracentesis Ultrasound 12/13/17 00:00 CONCLUSION: 1. Successful ultrasound-guided right thoracentesis. Chest X-Ray 12/13/17 06:05 CONCLUSION: 1. No significant interval change with persistent complete opacification of the right hemithorax. - Procedures INDICATIONS: Right pleural effusion with dyspnea. CLINICAL DATA: This is the patient's subsequent encounter. Patient reports that signs and symptoms have been present for 7 - 11 months and indicates a pain score of 10/10. MEDICAL/SURGICAL HISTORY: . Non-Hodgkin's T-cell Lymphoma. Blood clots. . Thoracentesis. Chemotherapy. COMPARISON: [facility] [place], [place] GUIDED THORACENTESIS RIGHT, 05/08/2017. . FLUID: Total volume of 1,000cc clear, yellowish brown cc of . fluid was removed. Fluid was sent to lab for ordered studies. . . TECHNIQUE: Ultrasound guidance for thoracentesis. Thoracentesis. The risks, benefits, and alternatives to ultrasound guided thoracentesis were explained to the patient in lay simple terms, including the risk of bleeding and infection. Written and verbal informed consent was obtained. Appropriate area for right thoracentesis was marked under ultrasound guidance with the patient in the upright position. Overlying skin was prepped and draped in the usual sterile fashion and with local anesthetic, a dermatotomy was made with an 11 blade scalpel. A 6 English thoracentesis catheter was placed in the pleural space and fluid was removed. Catheter was then removed and a sterile dressing applied. There were no immediate complications. The patient tolerated the procedure well and the left the ultrasound suite in stable condition. Chest radiograph is to be obtained. FINDINGS: After obtaining consent, an ultrasound-guided right thoracentesis was performed as described above. Patient tolerated the procedure well without complications. CONCLUSION: 1. Successful ultrasound-guided right thoracentesis Assessment and Plan - Plan Acute on chronic respiratory failure requiring O2 and thoracentesis on admission Respiratory Distress secondary to increased in size Pleural Effusion: CXR reveals significant pleural effusion of R lung. Continue DuoNeb, salmeterol, steroids and Lasix S/p Thoracocentesis with significant improvement Non-Hodgkin T cell lymphoma: pt was in remission until recently. hem onc consulted Dr Leigh, which per pt, will initiate chemotherapy after port placement soon next week. initiation of ICE chemotherapy per hem/onc AWAIT PATHOLOGY FROM THE THORACENTESIS Having chemo Decreased TSH mild hyperthyroidism we will continue to monitor-we will not start on medications-can follow with primary care regarding this A.m. labs Hopefully home tomorrow unless issues pop up DVT ppx continue Pradaxa Code Status: Full code Discussed Condition With: RN and patient and case picker and oncology Discharge Planning: PENDING ONCOLOGY CLEARANCE
[2017-12-16] MEDS ORDERED: Etoposide Inj 200 MG in Sodium Chlor 0.9% Inj 500 ML IV.SIG SCH (15:30)
[2017-12-16 16:53] LABS: Baso % (Auto) 0.1 % (0.0-2.0); Hemoglobin 11.8 gm/dL (13.0-17.0); Lymph % (Auto) 0.6 % (9.0-44.0); Mean Corpuscular HGB Conc 32.7 % (32.0-36.0); Mean Corpuscular Hemoglobin 27.6 pg (27.0-34.0); Mean Corpuscular Volume 84.5 fL (80.0-100.0); Mean Platelet Volume 7.2 fL (7.0-11.0); Mono # (Auto) 0.2 th/mm3 (0.0-0.9); Mono % (Auto) 3.6 % (0.0-8.0); Neut # (Auto) 6.5 th/mm3 (1.8-7.7); Neut % (Auto) 95.7 % (16.0-70.0); Platelet Count 201 th/mm3 (150-450); Red Blood Count 4.26 mil/mm3 (4.50-5.90); Red Cell Distribution Width 16.8 % (11.6-17.2); White Blood Count 6.8 th/mm3 (4.0-11.0)
[2017-12-16 17:08] LABS: Calcium 8.9 mg/dL (8.5-10.1); Carbon Dioxide 23.8 meq/L (21.0-32.0); Magnesium 2.3 mg/dL (1.5-2.5); Potassium 4.3 meq/L (3.5-5.1)
[2017-12-16] MEDS: Morphine Sulfate 30 MG IR Tablet PO SCH (19:15)
[2017-12-17] MEDS: Morphine Sulfate 30 MG IR Tablet PO SCH ×2 (02:11→06:53)
[2017-12-17 04:03] VITALS: TEMP 97.5; O2SAT 93
[2017-12-17 07:42] VITALS: RESP 18
[2017-12-17 07:50] VITALS: PULSE 92
--- NOTE | 2017-12-17 08:54 | P.PNONC ---
Subjective Interval history: Afebrile Patient sitting up in bed eating breakfast Reports he did not sleep well last night Anxious to go home Objective Vital Signs/Intake & Output: Vital Signs 12/16/17 11:10 12/16/17 12:00 12/16/17 12:08 Temperature 97.9 F Pulse Rate 101 H 105 H 101 H Respiratory Rate 18 Blood Pressure 148/93 H Pulse Oximetry 94 L 12/16/17 16:39 12/16/17 18:11 12/16/17 19:06 Temperature 98.0 F Pulse Rate 112 H 91 H Respiratory Rate 20 20 20 Blood Pressure 151/87 H Pulse Oximetry 96 93 L 12/16/17 20:20 12/16/17 20:42 12/16/17 23:00 Temperature 98.1 F 98.3 F Pulse Rate 101 H 100 H 104 H Respiratory Rate 16 18 Blood Pressure 145/92 H 152/95 H Pulse Oximetry 93 L 95 12/17/17 00:05 12/17/17 03:00 12/17/17 04:02 Temperature 97.5 F L Pulse Rate 99 H 84 92 H Respiratory Rate 20 Blood Pressure 153/103 H Pulse Oximetry 93 L 12/17/17 06:58 12/17/17 07:41 12/17/17 07:42 Temperature Pulse Rate 90 Respiratory Rate 18 Blood Pressure 155/99 H Pulse Oximetry 93 L 12/17/17 07:49 Temperature Pulse Rate 92 H Respiratory Rate Blood Pressure Pulse Oximetry Intake & Output 12/16/17 12/17/17 12/17/17 18:59 06:59 18:59 Intake Total 1999 / 1999 3485 / 3485 Output Total 1100 / 1100 2900 / 2900 Balance 900 / 900 585 / 585 Intake: IV 1000 / 1000 3005 / 3005 Vepesid Inj 200 MG In NS Inj 705 / 705 500 ML @ 510 mls/hr IV.SIG Q24H SUZAN Rx#:[id number] Ifex Inj 10,000 MG Mesnex Inj 1300 / 1300 10,000 MG In NS Inj 1,000 ML @ 45.833 mls/hr IV.SIG Q24H SUZAN Rx#:[id number] NS Inj 1,000 ML @ 100 mls/hr IV 1000 / 1000 .SIG .Q10H SUZAN Rx#:[id number] Oral 1000 / 1000 480 / 480 Output: Urine 1100 / 1100 2900 / 2900 Other: Date of Last Bowel Movement 12/15/17 12/15/17 Result Diagrams: 12/16/17 16:00 12/16/17 16:00 Laboratory Results: Laboratory Results - last 24 hr 12/16/17 12/16/17 12/16/17 10:40 10:40 10:40 WBC 7.4 RBC 4.13 L Hgb 11.4 L Hct 34.6 L MCV 83.7 MCH 27.5 MCHC 32.8 RDW 16.9 Plt Count 213 MPV 7.2 Neut % (Auto) 94.8 H Lymph % (Auto) 0.7 L [place] % (Auto) 4.4 Eos % (Auto) 0.0 Baso % (Auto) 0.1 Neut # (Auto) 7.0 Lymph # (Auto) 0.0 L [place] # (Auto) 0.3 Eos # (Auto) 0.0 Baso # (Auto) 0.0 WBC Differential . Differential Comment Auto diff final PT 10.7 INR 1.1 D-Dimer Quant (PE/DVT) Sodium 139 Potassium 4.4 Chloride 105 Carbon Dioxide 26.0 Anion Gap 8 BUN 18 Creatinine 0.88 Estimated GFR Greater than 89 Random Glucose 206 H Hemoglobin A1c Calcium 8.8 Phosphorus 2.4 L Magnesium 2.4 Total Bilirubin 0.2 AST 21 ALT 45 Alkaline Phosphatase 65 Total Protein 5.9 L D Albumin 2.7 L TSH 0.111 L Free T4 0.99 Urine Occult Blood 12/16/17 12/16/17 12/16/17 10:40 16:00 16:00 WBC 6.8 RBC 4.26 L Hgb 11.8 L Hct 36.0 L MCV 84.5 MCH 27.6 MCHC 32.7 RDW 16.8 Plt Count 201 MPV 7.2 Neut % (Auto) 95.7 H Lymph % (Auto) 0.6 L [place] % (Auto) 3.6 Eos % (Auto) 0.0 Baso % (Auto) 0.1 Neut # (Auto) 6.5 Lymph # (Auto) 0.0 L [place] # (Auto) 0.2 Eos # (Auto) 0.0 Baso # (Auto) 0.0 WBC Differential . Differential Comment Auto diff final PT INR D-Dimer Quant (PE/DVT) 1.85 H Sodium Potassium Chloride Carbon Dioxide Anion Gap BUN Creatinine Estimated GFR Random Glucose Hemoglobin A1c 6.0 Calcium Phosphorus Magnesium Total Bilirubin AST ALT Alkaline Phosphatase Total Protein Albumin TSH Free T4 Urine Occult Blood 12/16/17 12/17/17 16:00 05:10 WBC RBC Hgb Hct MCV MCH MCHC RDW Plt Count MPV Neut % (Auto) Lymph % (Auto) [place] % (Auto) Eos % (Auto) Baso % (Auto) Neut # (Auto) Lymph # (Auto) [place] # (Auto) Eos # (Auto) Baso # (Auto) WBC Differential Differential Comment PT INR D-Dimer Quant (PE/DVT) Sodium 137 Potassium 4.3 Chloride 105 Carbon Dioxide 23.8 Anion Gap 8 BUN 18 Creatinine 1.00 Estimated GFR 82 L Random Glucose 246 H Hemoglobin A1c Calcium 8.9 Phosphorus Magnesium 2.3 Total Bilirubin AST ALT Alkaline Phosphatase Total Protein Albumin TSH Free T4 Urine Occult Blood Small H Culture Results: Microbiology 12/13/17 14:41 Gram Stain - Final Fluid - Pleural fluid Body Fluid Culture - Final No growth in 72 hours (aerobically and anaerobically) 12/13/17 14:41 Acid Fast Bacilli Smear - Final Fluid - Pleural fluid No acid fast bacilli seen 12/13/17 14:41 Fungal Smear - Final Fluid - Pleural fluid No fungal elements seen Medications: Active Medications Generic Name Dose Route Start Last Admin Trade Name Freq PRN Reason Stop Dose Admin Al Hydroxide/Mg Hydroxide 30 ml 12/13/17 10:20 12/16/17 16:55 Milk Of Magnesia Liq PO 30 ml Q12H PRN Administration Mild Constipation Albuterol 1 ampul 12/13/17 14:00 12/17/17 07:40 Duoneb Neb (Suzan) NEB 1 ampul Q6HR WHILE AWAKE NEB SUZAN Administration Albuterol 1 ampul 12/13/17 11:52 12/14/17 04:03 Duoneb Neb (Prn) NEB 1 ampul Q2HR NEB PRN Administration sob/wheezing Artificial Tears 1 applicatio 12/16/17 21:00 12/16/17 23:25 Eucerin Cream TOPICAL 1 applicatio DAILY PRN Administration FOR IRRITATED SKIN Bisacodyl 10 mg 12/13/17 10:20 12/15/17 19:47 Dulcolax Supp RECTAL 10 mg DAILY PRN Administration SEVERE CONSITIPATION Furosemide 20 mg 12/14/17 09:00 12/16/17 08:49 Lasix PO 20 mg DAILY SUZAN Administration Lorazepam 0.5 mg 12/13/17 20:01 12/16/17 10:58 Ativan PO 0.5 mg Q6H PRN Administration ANXIETY Methylprednisolone Sodium Succinate 40 mg 12/13/17 21:00 12/16/17 20:55 Solumedrol Inj IV.PUSH 40 mg Q12HR SUZAN Administration Morphine Sulfate 30 mg 12/16/17 18:00 12/17/17 06:53 Msir PO 30 mg Q6HR SUZAN Administration Morphine Sulfate 8 mg 12/16/17 22:30 12/16/17 22:50 Morphine Inj IV.PUSH 8 mg Q4H PRN Administration BREAKTHROUGH PAIN Rivaroxaban 15 mg 12/14/17 12:00 12/16/17 11:03 Xarelto PO 15 mg DAILY@1200 SUZAN Administration Senna/Docusate Sodium 2 tab 12/13/17 21:00 12/16/17 20:56 Naa-Colace PO 2 tab BID SUZAN Administration Temazepam 15 mg 12/13/17 21:00 12/14/17 00:15 Restoril PO 15 mg HS PRN Administration INSOMNIA Voriconazole 200 mg 12/14/17 09:00 12/16/17 08:42 Vfend PO 200 mg DAILY SUZAN Administration Objective Remarks: GENERAL: Younger male sitting up in bed eating breakfast in no obvious distress SKIN: Warm and dry. HEAD: Normocephalic. EYES: No scleral icterus. No injection or drainage. NECK: Supple, trachea midline. No JVD or lymphadenopathy. CARDIOVASCULAR: Regular rate and rhythm without murmurs. RESPIRATORY: Breath sounds equal bilaterally. No accessory muscle use. GASTROINTESTINAL: Abdomen soft, non-tender, nondistended. EXTREMITIES: No cyanosis, or edema. Bruising, redness to right medial elbow MUSCULOSKELETAL: Adequate muscle tone. NEUROLOGICAL: No obvious focal deficit. Awake, alert, and oriented x3. Assessment/Plan - Plan This is a pleasant 42-year-old male patient with a history of T-cell lymphoblastic lymphoma. He is status post 5 cycles of CHOP chemotherapy and radiation. He was admitted to [facility] in the first part of November with increasing shortness of breath, recurrent pleural effusion. He had a bronchoscopic evaluation and cytology sent from the pleural fluid, which showed recurrence of his T-cell lymphoblastic lymphoma. He is currently under the care of the lymphoma specialist, Dr. Adis Garcia at [facility] who recommended ICE chemotherapy. He was being scheduled for inpatient second line, bone marrow preparatory regimen with ifosfamide, etoposide and carboplatin when he presented to the emergency room at [facility] with increasing shortness of breath. He is found to have a significant recurrence of his right-sided pleural effusion. He underwent a thoracentesis on 12/13/17. Plan: 1. Chemotherapy completed last night patient has remained with good urine output. 2. Clear for discharge from oncology standpoint. He will follow-up in the clinic once he leaves to receive Neulasta on body injector. 3. Follow-up with Dr. Leigh in clinic next week.
[2017-12-17] MEDS: Senna/Docusate Sodium 8.6/50 MG Tablet PO SCH (09:30)
[2017-12-17] MEDS: Voriconazole 200 MG Tablet PO SCH (09:30)
[2017-12-17] MEDS: MethylPREDNISolone Sod Succinate Inj 40 MG/ML Vial IV.PUSH SCH (09:31)
[2017-12-17] MEDS: Furosemide 20 MG Tablet PO SCH (09:31)
[2017-12-17 09:35] VITALS: BP 161/99
--- NOTE | 2017-12-17 12:01 | P.PNIM ---
Subjective Interval history: Pt is a pleasant 42-year-old male with a hx of non-hodgkin lymphoma who presents the emergency department with chest pain and shortness of breath. He states that 2 days ago he started having tightness in his chest that would worsen with positioning himself on the R side, along with SOB that worsens with laying on his R side, and with taking deep breaths. Pt states that these sxs are very similar to the other times he has had pleural effusion that required Thoracocentesis. He state that his last thoracocentesis was 2 weeks ago and 1000 cc fluid was removed. Pt was diagnosed with non-Hodgkin's T cell lymphoma April last year, had been in remission following chemotherapy until several weeks ago. He is a patient of Dr. Leigh, and states that he will soon have a port place for new round of chemo. Denies, diaphoresis, Fever, chills, nausea, vomiting, abdominal pain, melena, hematochezia. 12-14 Patient is in bed he says pain is fairly controlled by medications. No nausea vomiting. Has chest pain with inspiration. No fever or chills. No cough. 12-15 no new complaints WANTS TO GO HOME SOON POSSIBLE TIM RN AND PT AND CM AND ONCOLOGY HAD THORACENTESIS ON 12-13 STATES BREATHING BETTER AWAIT PATHOLOGY 12-16 HOPEFULLY HOME TOMORROW AM LABS TIM RN AND PT FINISHING UP CHEMO LATER TONIGHT CONTINUE SAME 12-17 cleared by oncology dc to home today and go to oncology for Neulasta WANTS TO GO HOME TODAY DW RN AND PT Physical Exam Vital signs: Vital Signs 12/16/17 12:00 12/16/17 12:08 12/16/17 16:39 Temperature 98.0 F Pulse Rate 105 H 101 H 112 H Respiratory Rate 20 Blood Pressure 151/87 H Pulse Oximetry 96 12/16/17 18:11 12/16/17 19:06 12/16/17 20:20 Temperature Pulse Rate 91 H 101 H Respiratory Rate 20 20 Blood Pressure Pulse Oximetry 93 L 12/16/17 20:42 12/16/17 23:00 12/17/17 00:05 Temperature 98.1 F 98.3 F Pulse Rate 100 H 104 H 99 H Respiratory Rate 16 18 Blood Pressure 145/92 H 152/95 H Pulse Oximetry 93 L 95 12/17/17 03:00 12/17/17 04:02 12/17/17 06:58 Temperature 97.5 F L Pulse Rate 84 92 H Respiratory Rate 20 Blood Pressure 153/103 H 155/99 H Pulse Oximetry 93 L 12/17/17 07:00 12/17/17 07:41 12/17/17 07:42 Temperature 97.5 F L Pulse Rate 96 H 90 Respiratory Rate 18 Blood Pressure 161/99 H Pulse Oximetry 94 L 93 L 12/17/17 07:49 Temperature Pulse Rate 92 H Respiratory Rate Blood Pressure Pulse Oximetry Intake & Output 12/16/17 12/17/17 12/17/17 18:59 06:59 18:59 Intake Total 1999 / 1999 3485 / 3485 Output Total 1100 / 1100 2900 / 2900 Balance 900 / 900 585 / 585 Intake: IV 1000 / 1000 3005 / 3005 Vepesid Inj 200 MG In NS Inj 705 / 705 500 ML @ 510 mls/hr IV.SIG Q24H BANDAR Rx#:[id number] Ifex Inj 10,000 MG Mesnex Inj 1300 / 1300 10,000 MG In NS Inj 1,000 ML @ 45.833 mls/hr IV.SIG Q24H BANDAR Rx#:[id number] NS Inj 1,000 ML @ 100 mls/hr IV 1000 / 1000 .SIG .Q10H BANDAR Rx#:[id number] Oral 1000 / 1000 480 / 480 Output: Urine 1100 / 1100 2900 / 2900 Other: Date of Last Bowel Movement 12/15/17 12/15/17 12/15/17 Narrative: Physical exam: GENERAL: Awake alert and oriented 3 talkative and cooperative SKIN: Warm and dry. HEAD: Atraumatic. Normocephalic. EYES: Pupils equal and round. No scleral icterus. No injection or drainage. ENT: No nasal bleeding or discharge. Mucous membranes pink and moist. NECK: Trachea midline. No JVD. CARDIOVASCULAR: Regular rate and rhythm. RESPIRATORY: No accessory muscle use. Breath sounds equal bilaterally. Decrease breath sound on the R upper , mid, and lower lobe with scattered rales GASTROINTESTINAL: Abdomen soft, non-tender, nondistended. Hepatic and splenic margins not palpable. MUSCULOSKELETAL: Extremities without clubbing, cyanosis, or edema. No obvious deformities. NEUROLOGICAL: Awake and alert. No obvious cranial nerve deficits. Motor grossly within normal limits. Five out of 5 muscle strength in the arms and legs. Normal speech. PSYCHIATRIC: Appropriate mood and affect; insight and judgment normal. Results - Labs CBC & Chem 7: 12/16/17 16:00 12/16/17 16:00 Laboratory Results - last 24 hr 12/16/17 12/16/17 12/16/17 10:40 10:40 16:00 WBC RBC Hgb Hct MCV MCH MCHC RDW Plt Count MPV Neut % (Auto) Lymph % (Auto) [place] % (Auto) Eos % (Auto) Baso % (Auto) Neut # (Auto) Lymph # (Auto) [place] # (Auto) Eos # (Auto) Baso # (Auto) WBC Differential Differential Comment D-Dimer Quant (PE/DVT) 1.85 H Sodium Potassium Chloride Carbon Dioxide Anion Gap BUN Creatinine Estimated GFR Random Glucose Hemoglobin A1c 6.0 Calcium Phosphorus 2.4 L Magnesium Total Bilirubin 0.2 Alkaline Phosphatase 65 Total Protein 5.9 L D TSH 0.111 L Free T4 0.99 Urine Occult Blood 12/16/17 12/16/17 12/17/17 16:00 16:00 05:10 WBC 6.8 RBC 4.26 L Hgb 11.8 L Hct 36.0 L MCV 84.5 MCH 27.6 MCHC 32.7 RDW 16.8 Plt Count 201 MPV 7.2 Neut % (Auto) 95.7 H Lymph % (Auto) 0.6 L [place] % (Auto) 3.6 Eos % (Auto) 0.0 Baso % (Auto) 0.1 Neut # (Auto) 6.5 Lymph # (Auto) 0.0 L [place] # (Auto) 0.2 Eos # (Auto) 0.0 Baso # (Auto) 0.0 WBC Differential . Differential Comment Auto diff final D-Dimer Quant (PE/DVT) Sodium 137 Potassium 4.3 Chloride 105 Carbon Dioxide 23.8 Anion Gap 8 BUN 18 Creatinine 1.00 Estimated GFR 82 L Random Glucose 246 H Hemoglobin A1c Calcium 8.9 Phosphorus Magnesium 2.3 Total Bilirubin Alkaline Phosphatase Total Protein TSH Free T4 Urine Occult Blood Small H Microbiology 12/13/17 14:41 Fluid - Pleural fluid Gram Stain - Final 12/13/17 14:41 Fluid - Pleural fluid Body Fluid Culture - Final No growth in 72 hours (aerobically and anaerobically ) - Imaging Chest X-Ray 12/13/17 00:00 CONCLUSION: 1. No pneumothorax status post thoracentesis. 2. The right lung remains completely opacified. Thoracentesis Ultrasound 12/13/17 00:00 CONCLUSION: 1. Successful ultrasound-guided right thoracentesis. Chest X-Ray 12/13/17 06:05 CONCLUSION: 1. No significant interval change with persistent complete opacification of the right hemithorax. - Procedures INDICATIONS: Right pleural effusion with dyspnea. CLINICAL DATA: This is the patient's subsequent encounter. Patient reports that signs and symptoms have been present for 7 - 11 months and indicates a pain score of 10/10. MEDICAL/SURGICAL HISTORY: . Non-Hodgkin's T-cell Lymphoma. Blood clots. . Thoracentesis. Chemotherapy. COMPARISON: [facility] – [place], [place] GUIDED THORACENTESIS RIGHT, 05/08/2017. . FLUID: Total volume of 1,000cc clear, yellowish brown cc of . fluid was removed. Fluid was sent to lab for ordered studies. . . TECHNIQUE: Ultrasound guidance for thoracentesis. Thoracentesis. The risks, benefits, and alternatives to ultrasound guided thoracentesis were explained to the patient in lay simple terms, including the risk of bleeding and infection. Written and verbal informed consent was obtained. Appropriate area for right thoracentesis was marked under ultrasound guidance with the patient in the upright position. Overlying skin was prepped and draped in the usual sterile fashion and with local anesthetic, a dermatotomy was made with an 11 blade scalpel. A 6 Thai thoracentesis catheter was placed in the pleural space and fluid was removed. Catheter was then removed and a sterile dressing applied. There were no immediate complications. The patient tolerated the procedure well and the left the ultrasound suite in stable condition. Chest radiograph is to be obtained. FINDINGS: After obtaining consent, an ultrasound-guided right thoracentesis was performed as described above. Patient tolerated the procedure well without complications. CONCLUSION: 1. Successful ultrasound-guided right thoracentesis Assessment and Plan - Plan Acute on chronic respiratory failure requiring O2 and thoracentesis on admission Respiratory Distress secondary to increased in size Pleural Effusion: CXR reveals significant pleural effusion of R lung. Continue DuoNeb, salmeterol, steroids and Lasix S/p Thoracocentesis with significant improvement Non-Hodgkin T cell lymphoma: pt was in remission until recently. hem onc consulted Dr Leigh, which per pt, will initiate chemotherapy after port placement soon next week. initiation of ICE chemotherapy per hem/onc AWAIT PATHOLOGY FROM THE THORACENTESIS Having chemo Decreased TSH mild hyperthyroidism we will continue to monitor-we will not start on medications-can follow with primary care regarding this A.m. labs Hopefully home tomorrow unless issues pop up DVT ppx continue Pradaxa DC TO HOME TODAY TIM RN AND PT AND FAMILY Code Status: FULL CODE Discussed Condition With: TIM RN AND PT AND ONCOLOGY AND FAMILY Discharge Planning: DC TO HOME
--- NOTE | 2017-12-17 12:15 | P.DS ---
Date of admission: 12/13/17 09:15 Primary care physician: Bienvenido Guzman MD Attending physician on discharge: Román Frausto Anticipated date of discharge: 12/17/17 Brief History from admission: Pt is a pleasant 42-year-old male with a hx of non-hodgkin lymphoma who presents the emergency department with chest pain and shortness of breath. He states that 2 days ago he started having tightness in his chest that would worsen with positioning himself on the R side, along with SOB that worsens with laying on his R side, and with taking deep breaths. Pt states that these sxs are very similar to the other times he has had pleural effusion that required Thoracocentesis. He state that his last thoracocentesis was 2 weeks ago and 1000 cc fluid was removed. Pt was diagnosed with non-Hodgkin's T cell lymphoma April last year, had been in remission following chemotherapy until several weeks ago. He is a patient of Dr. Leigh, and states that he will soon have a port place for new round of chemo. Denies, diaphoresis, Fever, chills, nausea, vomiting, abdominal pain, melena, hematochezia. DS: Diagnosis - Discharge Diagnosis (1) Non-Hodgkin's lymphoma in adult Status: Chronic (2) Pleural effusion Status: Acute (3) Respiratory failure, [id number] Status: Acute DS: Medications - Discharge Medications Prescriptions: furosemide 20 mg PO DAILY #30 tab methyl salicylate-menthol [Analgesic GRX [place]] 1 applicatio TOPICAL UNSCH PRN # 60 g PRN Reason: muscle pain prednisone 20 mg PO DAILY #30 tab sennosides-docusate sodium [Senna Plus] 2 tab PO BID #120 tab voriconazole [Vfend] 200 mg PO DAILY #30 tab white petrolatum-mineral oil [Eucerin] 1 applicatio TOPICAL DAILY PRN #1 bottle PRN Reason: FOR IRRITATED SKIN Xarelto 15 mg PO DAILY #30 tab DS: Summary Hospital Course: Pt is a pleasant 42-year-old male with a hx of non-hodgkin lymphoma who presents the emergency department with chest pain and shortness of breath. He states that 2 days ago he started having tightness in his chest that would worsen with positioning himself on the R side, along with SOB that worsens with laying on his R side, and with taking deep breaths. Pt states that these sxs are very similar to the other times he has had pleural effusion that required Thoracocentesis. He state that his last thoracocentesis was 2 weeks ago and 1000 cc fluid was removed. Pt was diagnosed with non-Hodgkin's T cell lymphoma April last year, had been in remission following chemotherapy until several weeks ago. He is a patient of Dr. Leigh, and states that he will soon have a port place for new round of chemo. Denies, diaphoresis, Fever, chills, nausea, vomiting, abdominal pain, melena, hematochezia. 12-14 Patient is in bed he says pain is fairly controlled by medications. No nausea vomiting. Has chest pain with inspiration. No fever or chills. No cough. 12-15 no new complaints WANTS TO GO HOME SOON POSSIBLE TIM RN AND PT AND CM AND ONCOLOGY HAD THORACENTESIS ON 12-13 STATES BREATHING BETTER AWAIT PATHOLOGY 12-16 HOPEFULLY HOME TOMORROW AM LABS DW RN AND PT FINISHING UP CHEMO LATER TONIGHT CONTINUE SAME 12-17 cleared by oncology dc to home today and go to oncology for Neulasta WANTS TO GO HOME TODAY DW RN AND PT - Time Spent with Patient Total time spent providing and/or coordinating discharge services: Greater than 30 minutes Exam Vital signs: Vital Signs 12/16/17 12:08 12/16/17 16:39 12/16/17 18:11 Temperature 98.0 F Pulse Rate 101 H 112 H Respiratory Rate 20 20 Blood Pressure 151/87 H Pulse Oximetry 96 12/16/17 19:06 12/16/17 20:20 12/16/17 20:42 Temperature 98.1 F Pulse Rate 91 H 101 H 100 H Respiratory Rate 20 16 Blood Pressure 145/92 H Pulse Oximetry 93 L 93 L 12/16/17 23:00 12/17/17 00:05 12/17/17 03:00 Temperature 98.3 F 97.5 F L Pulse Rate 104 H 99 H 84 Respiratory Rate 18 20 Blood Pressure 152/95 H 153/103 H Pulse Oximetry 95 93 L 12/17/17 04:02 12/17/17 06:58 12/17/17 07:00 Temperature 97.5 F L Pulse Rate 92 H 96 H Respiratory Rate Blood Pressure 155/99 H 161/99 H Pulse Oximetry 94 L 12/17/17 07:41 12/17/17 07:42 12/17/17 07:49 Temperature Pulse Rate 90 92 H Respiratory Rate 18 Blood Pressure Pulse Oximetry 93 L Intake & Output 12/16/17 12/17/17 12/17/17 18:59 06:59 18:59 Intake Total 1999 / 1999 3485 / 3485 Output Total 1100 / 1100 2900 / 2900 Balance 900 / 900 585 / 585 Intake: IV 1000 / 1000 3005 / 3005 Vepesid Inj 200 MG In NS Inj 705 / 705 500 ML @ 510 mls/hr IV.SIG Q24H BANDAR Rx#:[id number] Ifex Inj 10,000 MG Mesnex Inj 1300 / 1300 10,000 MG In NS Inj 1,000 ML @ 45.833 mls/hr IV.SIG Q24H BANDAR Rx#:[id number] NS Inj 1,000 ML @ 100 mls/hr IV 1000 / 1000 .SIG .Q10H BANDAR Rx#:[id number] Oral 1000 / 1000 480 / 480 Output: Urine 1100 / 1100 2900 / 2900 Other: Date of Last Bowel Movement 12/15/17 12/15/17 12/15/17 Narrative: GENERAL: Awake alert and oriented 3 talkative and cooperative SKIN: Warm and dry. HEAD: Atraumatic. Normocephalic. EYES: Pupils equal and round. No scleral icterus. No injection or drainage. ENT: No nasal bleeding or discharge. Mucous membranes pink and moist. NECK: Trachea midline. No JVD. CARDIOVASCULAR: Regular rate and rhythm. RESPIRATORY: No accessory muscle use. Breath sounds equal bilaterally. Decrease breath sound on the R upper , mid, and lower lobe with scattered rales GASTROINTESTINAL: Abdomen soft, non-tender, nondistended. Hepatic and splenic margins not palpable. MUSCULOSKELETAL: Extremities without clubbing, cyanosis, or edema. No obvious deformities. NEUROLOGICAL: Awake and alert. No obvious cranial nerve deficits. Motor grossly within normal limits. Five out of 5 muscle strength in the arms and legs. Normal speech. PSYCHIATRIC: Appropriate mood and affect; insight and judgment normal. Results Procedures completed during hospitalization: INDICATIONS: Right pleural effusion with dyspnea. CLINICAL DATA: This is the patient's subsequent encounter. Patient reports that signs and symptoms have been present for 7 - 11 months and indicates a pain score of 10/10. MEDICAL/SURGICAL HISTORY: . Non-Hodgkin's T-cell Lymphoma. Blood clots. . Thoracentesis. Chemotherapy. COMPARISON: [facility] – [place], [place] GUIDED THORACENTESIS RIGHT, 05/08/2017. . FLUID: Total volume of 1,000cc clear, yellowish brown cc of . fluid was removed. Fluid was sent to lab for ordered studies. . . TECHNIQUE: Ultrasound guidance for thoracentesis. Thoracentesis. The risks, benefits, and alternatives to ultrasound guided thoracentesis were explained to the patient in lay simple terms, including the risk of bleeding and infection. Written and verbal informed consent was obtained. Appropriate area for right thoracentesis was marked under ultrasound guidance with the patient in the upright position. Overlying skin was prepped and draped in the usual sterile fashion and with local anesthetic, a dermatotomy was made with an 11 blade scalpel. A 6 [place] thoracentesis catheter was placed in the pleural space and fluid was removed. Catheter was then removed and a sterile dressing applied. There were no immediate complications. The patient tolerated the procedure well and the left the ultrasound suite in stable condition. Chest radiograph is to be obtained. FINDINGS: After obtaining consent, an ultrasound-guided right thoracentesis was performed as described above. Patient tolerated the procedure well without complications. CONCLUSION: 1. Successful ultrasound-guided right thoracentesis Completed studies during hospitalization: Laboratory Results WBC 6.8 th/mm3 (4.0-11.0) 12/16/17 16:00 RBC 4.26 mil/mm3 (4.50-5.90) L 12/16/17 16:00 Hgb 11.8 gm/dL (13.0-17.0) L 12/16/17 16:00 Hct 36.0 % (39.0-51.0) L 12/16/17 16:00 MCV 84.5 fL (80.0-100.0) 12/16/17 16:00 MCH 27.6 pg (27.0-34.0) 12/16/17 16:00 MCHC 32.7 % (32.0-36.0) 12/16/17 16:00 RDW 16.8 % (11.6-17.2) 12/16/17 16:00 Plt Count 201 th/mm3 (150-450) 12/16/17 16:00 MPV 7.2 fL (7.0-11.0) 12/16/17 16:00 Neut % (Auto) 95.7 % (16.0-70.0) H 12/16/17 16:00 Lymph % (Auto) 0.6 % (9.0-44.0) L 12/16/17 16:00 [place] % (Auto) 3.6 % (0.0-8.0) 12/16/17 16:00 Eos % (Auto) 0.0 % (0.0-4.0) 12/16/17 16:00 Baso % (Auto) 0.1 % (0.0-2.0) 12/16/17 16:00 Neut # (Auto) 6.5 th/mm3 (1.8-7.7) 12/16/17 16:00 Lymph # (Auto) 0.0 th/mm3 (1.0-4.8) L 12/16/17 16:00 [place] # (Auto) 0.2 th/mm3 (0.0-0.9) 12/16/17 16:00 Eos # (Auto) 0.0 th/mm3 (0.0-0.4) 12/16/17 16:00 Baso # (Auto) 0.0 th/mm3 (0.0-0.2) 12/16/17 16:00 WBC Differential . 12/16/17 16:00 Differential Comment Auto diff final 12/16/17 16:00 PT 10.7 sec (9.8-11.6) 12/16/17 10:40 INR 1.1 Ratio 12/16/17 10:40 APTT 25.5 sec (24.3-30.1) 12/13/17 06:10 D-Dimer Quant (PE/DVT) 1.85 mg/L FEU (0.00-0.50) H 12/16/17 16:00 Puncture Site Right radial 12/13/17 08:20 Patient Temperature 98.6 12/13/17 08:20 O2 Saturation 95 % (90-100) 12/13/17 08:20 ABG pH 7.47 (7.380-7.420) H 12/13/17 08:20 ABG pCO2 42 mmHg (38-42) 12/13/17 08:20 ABG pO2 90 mmHg (61-120) 12/13/17 08:20 ABG HCO3 30 mmol/L (22-26) H 12/13/17 08:20 ABG O2 Content 18.7 Vol % (12.0-20.0) 12/13/17 08:20 ABG Base Excess 6.3 mmol/L (-2-2) H 12/13/17 08:20 ABG Methemoglobin 0.7 % (0-2) 12/13/17 08:20 Albert Test Present 12/13/17 08:20 Hemoglobin 13.9 G/DL (12.0-16.0) 12/13/17 08:20 Carboxyhemoglobin 1.3 % (0-4) 12/13/17 08:20 O2 Delivery Device Nasal cannula 12/13/17 08:20 Liter Flow 4.00 L/M 12/13/17 08:20 Inspired O2 21 % 12/13/17 08:20 Critical Value No 12/13/17 08:20 Sodium 137 meq/L (136-145) 12/16/17 16:00 Potassium 4.3 meq/L (3.5-5.1) 12/16/17 16:00 Chloride 105 meq/L (98-107) 12/16/17 16:00 Carbon Dioxide 23.8 meq/L (21.0-32.0) 12/16/17 16:00 Anion Gap 8 meq/L (5-15) 12/16/17 16:00 BUN 18 mg/dL (7-18) 12/16/17 16:00 Creatinine 1.00 mg/dL (0.60-1.30) 12/16/17 16:00 Estimated GFR 82 mL/min (>89) L 12/16/17 16:00 Random Glucose 246 mg/dL (74-106) H 12/16/17 16:00 Hemoglobin A1c 6.0 % (4.3-6.0) 12/16/17 10:40 Calcium 8.9 mg/dL (8.5-10.1) 12/16/17 16:00 Phosphorus 2.4 mg/dL (2.5-4.9) L 12/16/17 10:40 Magnesium 2.3 mg/dL (1.5-2.5) 12/16/17 16:00 Total Bilirubin 0.2 mg/dL (0.2-1.0) 12/16/17 10:40 AST 21 U/L (15-37) 12/16/17 10:40 ALT 45 U/L (12-78) 12/16/17 10:40 Alkaline Phosphatase 65 U/L (45-117) 12/16/17 10:40 Total Protein 5.9 g/dL (6.4-8.2) L D 12/16/17 10:40 Albumin 2.7 g/dL (3.4-5.0) L 12/16/17 10:40 TSH 0.111 uIU/mL (0.358-3.740) L 12/16/17 10:40 Free T4 0.99 ng/dL (0.76-1.46) 12/16/17 10:40 Urine Occult Blood Small (Negative) H 12/17/17 05:10 Pleural pH 8.0 12/13/17 14:41 Pleural RBC 9944 /mm3 (0-0) H 12/13/17 14:41 Pleural Nuc Cells 4983 /mm3 (0-10) H 12/13/17 14:41 Pleural Neutrophils 2 % 12/13/17 14:41 Pleural Lymphocytes 94 % 12/13/17 14:41 Pleural Monocytes 2 % 12/13/17 14:41 Pleural Histocytes 2 % 12/13/17 14:41 Pleural Fluid Comment 12/13/17 14:41 Pleural Total Protein 3.9 gm/dL 12/13/17 14:41 Pleural LDH 969 U/L 12/13/17 14:41 Pleural Glucose 41 mg/dL 12/13/17 14:41 Pleural Amylase 21 U/L 12/13/17 14:41 Impressions Thoracentesis Ultrasound 12/13/17 00:00 CONCLUSION: 1. Successful ultrasound-guided right thoracentesis. Chest X-Ray 12/13/17 06:05 CONCLUSION: 1. No significant interval change with persistent complete opacification of the right hemithorax. Labs on day of discharge: Labs from last 24 hours 12/17/17 12/16/17 12/16/17 05:10 16:00 16:00 WBC 6.8 RBC 4.26 L Hgb 11.8 L Hct 36.0 L MCV 84.5 MCH 27.6 MCHC 32.7 RDW 16.8 Plt Count 201 MPV 7.2 Neut % (Auto) 95.7 H Lymph % (Auto) 0.6 L [place] % (Auto) 3.6 Eos % (Auto) 0.0 Baso % (Auto) 0.1 Neut # (Auto) 6.5 Lymph # (Auto) 0.0 L [place] # (Auto) 0.2 Eos # (Auto) 0.0 Baso # (Auto) 0.0 WBC Differential . Differential Comment Auto diff final D-Dimer Quant (PE/DVT) Sodium 137 Potassium 4.3 Chloride 105 Carbon Dioxide 23.8 Anion Gap 8 BUN 18 Creatinine 1.00 Estimated GFR 82 L Random Glucose 246 H Hemoglobin A1c Calcium 8.9 Magnesium 2.3 Urine Occult Blood Small H 12/16/17 12/16/17 16:00 10:40 WBC RBC Hgb Hct MCV MCH MCHC RDW Plt Count MPV Neut % (Auto) Lymph % (Auto) [place] % (Auto) Eos % (Auto) Baso % (Auto) Neut # (Auto) Lymph # (Auto) [place] # (Auto) Eos # (Auto) Baso # (Auto) WBC Differential Differential Comment D-Dimer Quant (PE/DVT) 1.85 H Sodium Potassium Chloride Carbon Dioxide Anion Gap BUN Creatinine Estimated GFR Random Glucose Hemoglobin A1c 6.0 Calcium Magnesium Urine Occult Blood - Impressions ITS Impressions Thoracentesis Ultrasound 12/13/17 00:00 CONCLUSION: 1. Successful ultrasound-guided right thoracentesis. Chest X-Ray 12/13/17 06:05 CONCLUSION: 1. No significant interval change with persistent complete opacification of the right hemithorax. Discharge Plan - Discharge Disposition Patient Disposition: 01 Discharge Home - Discharge Condition Condition: Stable - Discharge Order Discharge Orders: Discharge Order (Routine); Ordered 12/17/17 Ordered By: Román Frausto Oncology Clear for Discharge (Routine); Ordered 12/17/17 Ordered By: Karyn Julien - Discharge Details Anticipated Discharge Date: 12/17/17 Discharge Comment: DC TO HOME TODAY - Physicians Team Primary Care Provider: Bienvenido Guzman Attending Provider: Román Frausto Other Providers: Aysha Leigh MD
== END 2017-12-17 13:36 | disposition home or self-care (01) ==
LOC: NEPC 05:35 → NEDA 09:15 → HCIN 15:50
PROVIDERS: ADMIT Hospitalist; ATTEND Hospitalist

== ENCOUNTER 2018-01-03 11:26 | Inpatient (IN) ==
[2018-01-08] MEDS ORDERED: LORazepam 0.5 MG Tablet PO PRN (08:53)
[2018-01-08] MEDS ORDERED: Aluminum/Magnesium/Simethacone Susp 30 ML UDC PO PRN (08:53)
--- NOTE | 2018-01-08 09:34 | MH ---
cc: Aysha Leigh MD DATE OF ADMISSION: 01/08/2018 ADMISSION DIAGNOSES: 1. Relapsed T-cell acute lymphoblastic lymphoma. 2. Right lung radiation pneumonitis. 3. Chronic pain. 4. Thrombocytopenia, mild. 5. Chemotherapy-induced anemia. 6. History of left upper extremity deep vein thromboses. 7. History of superior vena cava syndrome. CHIEF COMPLAINT: Here for chemo. HISTORY OF PRESENT ILLNESS: Mr. Turner is a 42-year-old man, well-known patient, with history of T-cell acute lymphoblastic lymphoma. He was treated with R-CHOP chemotherapy with good response. His course is complicated by a right lung radiation pneumonitis and left upper extremity deep vein thromboses associated with superior vena cava syndrome. He was being evaluated for transplant at [facility]. During hospitalization there, he was found to have recurrence. A T-cell lymphoblastic lymphoma recurrence was confirmed at [place] as well. Thoracentesis from his last admission showed presence of T-cell lymphoblastic lymphoma cells. He was treated with ICE chemotherapy 12/09/2017. He tolerated treatment well. He is doing better from a pulmonary standpoint. He continues on 20 mg of prednisone. He did not decrease to 15 mg as instructed on an outpatient basis. He held his Xarelto pending his midline placement. He also had episodes of epistaxis. Denies any fevers, chills, night sweats. He has bone pain persisting on and off. He takes p.r.n. pain medication. He denies any other bleeding. No melena or bright red blood per rectum. Denies any urinary complaints. The rest of his review of systems is negative. PAST MEDICAL HISTORY: 1. 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 2. Asthma. 3. Herniated disk. 4. History of pneumonia. PAST SURGICAL HISTORY: Port placement and removal, CT-guided biopsy, thoracentesis, midline placement, local thrombolytic therapy for left upper extremity deep vein thromboses. ALLERGIES: NO KNOWN DRUG ALLERGIES. FAMILY HISTORY: Father is . No significant family history of cancer. SOCIAL HISTORY: He is , lives with his and 2 daughters. He is a never smoker. Denies any alcohol or illicit drug use at present. HOME MEDICATIONS: Include albuterol, morphine, Lasix p.r.n., prednisone 20 mg once a day, voriconazole, Xarelto. PHYSICAL EXAMINATION: GENERAL: Well-developed well-nourished man who looks his stated age. He has mild [place]'s appearance. HEENT: His pupils are round, reactive to light and accommodation. Oropharynx is clear. NECK: Supple. LUNGS: With improved breath sounds in the right lung field. CARDIOVASCULAR: Reveals a normal rate and rhythm. ABDOMEN: Benign. EXTREMITIES: Lower extremities with no edema. Left upper extremity swelling and postphlebitic syndrome have improved significantly. ASSESSMENT AND PLAN: Mr. Turner he is a 42-year-old man with a recurrent T-cell lymphoblastic lymphoma. He is admitted for cycle #2 of ICE chemotherapy. We discussed the risk and benefit of his chemotherapy. A midline will be placed for the infusional chemotherapy. We will initiate chemo as soon as it is available. Labs were performed on outpatient basis. We should be able to start his treatment today as planned. We will continue his pain regimen. His prednisone will be reduced to 15 mg in attempt to try to taper it. His Vfend continues until his transplant. He needs a refill on his albuterol an outpatient basis. He will continue respiratory treatments in the hospital. His pain medication continues with oral morphine and breakthrough. His questions were answered to his satisfaction. Anticipate discharge in 3 days' time. On-body injector can be placed at the clinic. MD ANURAG Viera/codi , 09:09 AM , 09:23 AM
[2018-01-08] MEDS ORDERED: Granisetron Inj 1 MG in Sodium Chlor 0.9% Inj 50 ML IV.SIG ONE (12:30)
[2018-01-08] MEDS: Morphine Inj 4 MG/ML Vial IV.PUSH PRN ×4 (12:34→21:30)
[2018-01-08] MEDS: Etoposide Inj 200 MG in Sodium Chlor 0.9% Inj 500 ML IV.SIG SCH (13:06)
[2018-01-08] MEDS ORDERED: Etoposide Inj 200 MG in Sodium Chlor 0.9% Inj 500 ML IV.SIG ONE (13:06)
[2018-01-08 13:15] LABS: Baso # (Auto) 0.1 th/mm3 (0.0-0.2); Baso % (Auto) 0.9 % (0.0-2.0); Eos % (Auto) 0.2 % (0.0-4.0); Hematocrit 32.7 % (39.0-51.0); Hemoglobin 10.8 gm/dL (13.0-17.0); Lymph # (Auto) 0.5 th/mm3 (1.0-4.8); Lymph % (Auto) 5.5 % (9.0-44.0); Mean Corpuscular HGB Conc 33.1 % (32.0-36.0); Mean Corpuscular Hemoglobin 27.3 pg (27.0-34.0); Mean Corpuscular Volume 82.6 fL (80.0-100.0); Mean Platelet Volume 7.1 fL (7.0-11.0); Mono # (Auto) 1.3 th/mm3 (0.0-0.9); Mono % (Auto) 14.1 % (0.0-8.0); Neut # (Auto) 7.4 th/mm3 (1.8-7.7); Neut % (Auto) 79.3 % (16.0-70.0); Platelet Count 302 th/mm3 (150-450); Red Blood Count 3.95 mil/mm3 (4.50-5.90); Red Cell Distribution Width 16.7 % (11.6-17.2); White Blood Count 9.3 th/mm3 (4.0-11.0)
[2018-01-08 13:24] LABS: Activated Partial Thrombo Time 21.9 sec (24.3-30.1); Prothrombin Time 10.3 sec (9.8-11.6)
[2018-01-08 13:49] LABS: Alanine Aminotransferase 55 U/L (12-78); Albumin 3.4 g/dL (3.4-5.0); Anion Gap 8 meq/L (5-15); Aspartate Aminotransferase 23 U/L (15-37); Blood Urea Nitrogen 9 mg/dL (7-18); Calcium 8.6 mg/dL (8.5-10.1); Carbon Dioxide 27.4 meq/L (21.0-32.0); Chloride 105 meq/L (98-107); Glomerular Filtration Rate Greater Than 89 mL/min (>89); Glucose,Random 105 mg/dL (74-106); Lactate Dehydrogenase 358 U/L (87-241); Potassium 3.7 meq/L (3.5-5.1); Sodium 140 meq/L (136-145)
[2018-01-08 13:51] LABS: Alkaline Phosphatase 74 U/L (45-117); Eosinophils 1 % (0-4); Lymphocytes 3 % (9-44); Metamyelocytes 2 % (0-1); Monocytes 6 % (0-8); Myelocytes 2 % (0-0); Tallied Nucleated RBC 1 (0-0); Total Protein 6.7 g/dL (6.4-8.2)
[2018-01-08 13:53] LABS: Ovalocytes 1+; Platelet Estimate Normal (Normal); Platelet Morphology Normal (Normal); Tear Drop Cells 1+
[2018-01-08] MEDS: RESP: Albuterol Concentrated 2.5 MG/0.5 ML Neb NEB PRN (20:03)
[2018-01-08] MEDS ORDERED: Temazepam 15 MG Capsule PO PRN (21:00)
[2018-01-09] MEDS: Morphine Inj 4 MG/ML Vial IV.PUSH PRN ×7 (00:31→22:55)
[2018-01-09 05:42] LABS: Baso # (Auto) 0.1 th/mm3 (0.0-0.2); Baso % (Auto) 1.4 % (0.0-2.0); Eos % (Auto) 0.4 % (0.0-4.0); Hematocrit 31.8 % (39.0-51.0); Hemoglobin 10.7 gm/dL (13.0-17.0); Lymph # (Auto) 0.4 th/mm3 (1.0-4.8); Lymph % (Auto) 5.6 % (9.0-44.0); Mean Corpuscular HGB Conc 33.7 % (32.0-36.0); Mean Corpuscular Hemoglobin 27.4 pg (27.0-34.0); Mean Corpuscular Volume 81.4 fL (80.0-100.0); Mean Platelet Volume 6.7 fL (7.0-11.0); Mono # (Auto) 1.3 th/mm3 (0.0-0.9); Mono % (Auto) 16.5 % (0.0-8.0); Neut # (Auto) 5.8 th/mm3 (1.8-7.7); Neut % (Auto) 76.1 % (16.0-70.0); Platelet Count 296 th/mm3 (150-450); Red Blood Count 3.91 mil/mm3 (4.50-5.90); Red Cell Distribution Width 16.8 % (11.6-17.2); White Blood Count 7.6 th/mm3 (4.0-11.0)
[2018-01-09 06:16] LABS: Anion Gap 7 meq/L (5-15); Blood Urea Nitrogen 11 mg/dL (7-18); Calcium 9.2 mg/dL (8.5-10.1); Chloride 104 meq/L (98-107); Glomerular Filtration Rate Greater Than 89 mL/min (>89); Glucose,Random 90 mg/dL (74-106); Potassium 4.4 meq/L (3.5-5.1); Sodium 140 meq/L (136-145)
[2018-01-09] MEDS: RESP: Albuterol Concentrated 2.5 MG/0.5 ML Neb NEB PRN ×4 (07:34→22:11)
[2018-01-09 08:48] LABS: Lymphocytes 7 % (9-44); Metamyelocytes 2 % (0-1); Monocytes 13 % (0-8); Myelocytes 1 % (0-0)
[2018-01-09 08:49] LABS: Platelet Estimate Normal (Normal); Platelet Morphology Normal (Normal); Tear Drop Cells 1+
[2018-01-09] MEDS ORDERED: Enoxaparin Inj 40 MG/0.4 ML Syringe SQ SCH (09:00)
[2018-01-09] MEDS ORDERED: Acetaminophen 325 MG Tablet PO PRN (10:07)
[2018-01-09] MEDS ORDERED: Granisetron Inj 1 MG, Dexamethasone Inj 20 MG in Sodium Chlor 0.9% Inj 50 ML IV.SIG ONE ×2 (12:30)
[2018-01-09] MEDS ORDERED: Etoposide Inj 200 MG in Sodium Chlor 0.9% Inj 500 ML IV.SIG ONE (12:44)
[2018-01-09] MEDS: Etoposide Inj 200 MG in Sodium Chlor 0.9% Inj 500 ML IV.SIG SCH (12:44)
--- NOTE | 2018-01-09 13:34 | P.PNONC ---
Subjective Interval history: Afebrile Patient reports he has had a bad migraine for the last few hours Feels it is due to not having had his prednisone in 2 days Anxious to begin chemo as he desperately wants to go home by Saturday night Tolerated chemo well yesterday Objective Vital Signs/Intake & Output: Vital Signs 01/08/18 16:00 01/08/18 20:00 01/08/18 20:03 Temperature 98.3 F Pulse Rate 104 H 94 H 92 H Respiratory Rate 20 18 22 Blood Pressure 128/74 136/83 Pulse Oximetry 93 L 93 L 01/09/18 00:00 01/09/18 04:00 01/09/18 07:00 Temperature 98.2 F 98 F Pulse Rate 83 91 H 82 Respiratory Rate 16 18 Blood Pressure 125/82 119/90 Pulse Oximetry 93 L 92 L 01/09/18 07:35 01/09/18 08:40 01/09/18 10:43 Temperature 98.6 F Pulse Rate 110 H 110 H Respiratory Rate 15 18 18 Blood Pressure 110/80 Pulse Oximetry 93 L 01/09/18 10:53 01/09/18 11:00 01/09/18 11:48 Temperature 98.7 F Pulse Rate 98 H 85 110 H Respiratory Rate 18 17 Blood Pressure 113/78 Pulse Oximetry 92 L 01/09/18 12:07 Temperature Pulse Rate Respiratory Rate 18 Blood Pressure Pulse Oximetry Intake & Output 01/08/18 01/09/18 01/09/18 18:59 06:59 18:59 Intake Total 1541 / 1541 480 / 480 56 / 56 Balance 1541 / 1541 480 / 480 56 / 56 Weight 205 lb 4.006 oz 207 lb 14.334 oz Intake: IV 561 / 561 56 / 56 Vepesid Inj 200 MG In NS Inj 510 / 510 500 ML @ 510 mls/hr IV.SIG Q24H BANDAR Rx#:[id number] Kytril Inj 1 MG Decadron Inj 20 56 / 56 MG In NS Inj 50 ML @ 336 mls/ hr IV.SIG ONCE ONE Rx#:[id number] Kytril Inj 1 MG In NS Inj 50 ML 51 / 51 @ 306 mls/hr IV.SIG ONCE ONE Rx#:[id number] Oral 980 / 980 480 / 480 Other: # Voids 3 3 Date of Last Bowel Movement 01/08/18 01/07/18 Weight On Admission 205 lb 4.006 oz Result Diagrams: 01/09/18 05:20 01/09/18 05:20 Laboratory Results: Laboratory Results - last 24 hr 01/08/18 01/08/18 01/09/18 12:45 12:45 05:20 WBC 7.6 RBC 3.91 L Hgb 10.7 L Hct 31.8 L MCV 81.4 MCH 27.4 MCHC 33.7 RDW 16.8 Plt Count 296 MPV 6.7 L Prelim Diff (Auto) Slide review pending Neut % (Auto) 76.1 H Lymph % (Auto) 5.6 L [place] % (Auto) 16.5 H Eos % (Auto) 0.4 Baso % (Auto) 1.4 Neut # (Auto) 5.8 Lymph # (Auto) 0.4 L [place] # (Auto) 1.3 H Eos # (Auto) 0.0 Baso # (Auto) 0.1 WBC Differential Manual diff final Manual diff final Seg Neuts % (Manual) 80 H 70 Band Neuts % (Manual) 6 6 Lymphocytes % (Manual) 3 L 7 L Monocytes % (Manual) 6 13 H Eosinophils % (Manual) 1 Basophils % (Manual) 1 Metamyelocytes % (Man) 2 H 2 H Myelocytes % (Man) 2 H 1 H Abs Neuts (Manual) 8.4 H 6.0 Nucleated RBCs/100 WBC 1 H Differential Comment . Platelet Estimate Normal Normal Platelet Morphology Normal Normal Basophilic Stippling Faint H Tear Drop Cells 1+ H 1+ H Ovalocytes 1+ H Sodium 140 Potassium 3.7 Chloride 105 Carbon Dioxide 27.4 Anion Gap 8 BUN 9 Creatinine 0.86 Estimated GFR Greater than 89 Random Glucose 105 Calcium 8.6 Total Bilirubin 0.3 AST 23 ALT 55 Alkaline Phosphatase 74 Lactate Dehydrogenase 358 H Total Protein 6.7 Albumin 3.4 01/09/18 05:20 WBC RBC Hgb Hct MCV MCH MCHC RDW Plt Count MPV Prelim Diff (Auto) Neut % (Auto) Lymph % (Auto) [place] % (Auto) Eos % (Auto) Baso % (Auto) Neut # (Auto) Lymph # (Auto) [place] # (Auto) Eos # (Auto) Baso # (Auto) WBC Differential Seg Neuts % (Manual) Band Neuts % (Manual) Lymphocytes % (Manual) Monocytes % (Manual) Eosinophils % (Manual) Basophils % (Manual) Metamyelocytes % (Man) Myelocytes % (Man) Abs Neuts (Manual) Nucleated RBCs/100 WBC Differential Comment Platelet Estimate Platelet Morphology Basophilic Stippling Tear Drop Cells Ovalocytes Sodium 140 Potassium 4.4 Chloride 104 Carbon Dioxide 29.0 Anion Gap 7 BUN 11 Creatinine 0.83 Estimated GFR Greater than 89 Random Glucose 90 Calcium 9.2 Total Bilirubin AST ALT Alkaline Phosphatase Lactate Dehydrogenase Total Protein Albumin Medications: Active Medications Generic Name Dose Route Start Last Admin Trade Name Freq PRN Reason Stop Dose Admin Acetaminophen 325 mg 01/09/18 10:07 01/09/18 10:55 Tylenol PO 325 mg Q6H PRN Administration PAIN 1-10 AND/OR FEVER >101F Al Hydroxide/Mg Hydroxide 15 ml 01/08/18 08:53 01/09/18 08:48 Milk Of Magnesia Liq PO 15 ml DAILY PRN Administration CONSTIPATION Albuterol 2.5 mg 01/08/18 18:34 01/09/18 11:45 Albuterol Concentrated Neb NEB 2.5 mg Q4HR NEB PRN Administration SHORTNESS OF BREATH/WHEEZING Etoposide 200 mg/ Sodium 510 mls @ 510 mls/hr 01/08/18 13:00 01/09/18 12:44 Chloride IV.SIG 01/09/18 13:59 510 mls/hr Q24H BANDAR Administration Morphine Sulfate 4 mg 01/08/18 08:53 01/09/18 06:31 Morphine Inj IV.PUSH 4 mg Q2H PRN Administration Pain Scale 8 to 10 Oxycodone HCl 10 mg 01/08/18 08:53 01/09/18 12:06 Roxicodone PO 10 mg Q3H PRN Administration Pain Scale 8 to 10 Objective Remarks: GENERAL: Younger male sitting up in bed in no obvious distress SKIN: Warm and dry. No oozing from lines HEAD: Normocephalic. EYES: No scleral icterus. No injection or drainage. NECK: Supple, trachea midline. No JVD or lymphadenopathy. CARDIOVASCULAR: Regular rate and rhythm without murmurs. Mildly tachycardic RESPIRATORY: Clear posteriorly. Few minimal Rales to right lower lung field GASTROINTESTINAL: Abdomen soft, non-tender, nondistended. EXTREMITIES: No cyanosis, or edema. MUSCULOSKELETAL: Adequate muscle tone. NEUROLOGICAL: No obvious focal deficit. Awake, alert, and oriented x3. Assessment/Plan - Plan 42-year-old male with history of T-cell acute lymphoblastic lymphoma. He was treated with R CHOP with good response. 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 During evaluation for transplant at [facility] he was unfortunately found to have recurrence. Patient had ICE chemotherapy on November. He comes in the hospital for cycle #2. 1. Continue chemotherapy. Patient tolerating well. 2. Change prophylactic Lovenox dosing to therapeutic rivaroxaban for history of DVT/SVC syndrome. 3. Resume prednisone at 20 mg daily. Patient can be decreased to 15 mg daily upon discharge. 4. Anticipate discharge tomorrow evening after evaluating urine output status post chemotherapy. - Attending Statement The exam, history, and the medical decision-making described in the above note were completed with the assistance of the mid-level provider. I reviewed and agree with the findings presented. I attest that I had a [id number] encounter with the patient on the same day, and personally performed and documented my assessment and findings in the medical record. Complain of some headache and back pain. Discussed possibility rebound headache from narcotic use. We reviewed his pain regimen. He has available to him oral pain medication depending on his level of pain. Breakthrough morphine is available. We discussed the nature of breakthrough medication. Tylenol can be used as needed for his headaches. He denies any nausea or vomiting. We will continue to monitor the headaches. This may in part be due to the Kytril or Zofran as well. Respiratory treatment have been ordered. He has better lung excursion on the right side. This is looking optimistic as a responsive. Chemotherapy as ordered. His right arm midline is functioning well. Additional labs during this hospitalization will be avoided, unless clinically necessary.
[2018-01-09] MEDS: predniSONE 20 MG Tablet PO SCH (13:38)
[2018-01-09] MEDS ORDERED: CARBOplatin Inj 750 MG in Sodium Chlor 0.9% Inj 250 ML IV.SIG ONE (14:00)
[2018-01-09] MEDS ORDERED: SOD CHLORIDE 0.9% IV.SIG ONE (14:30)
[2018-01-09] MEDS ORDERED: IFOSFAMIDE IV.SIG ONE (14:30)
[2018-01-09] MEDS ORDERED: MESNA IV.SIG ONE (14:30)
[2018-01-09] MEDS: Sod Chloride 0.9% Inj 1,000 ML IV.SIG SCH (19:57)
[2018-01-10] MEDS: Morphine Inj 4 MG/ML Vial IV.PUSH PRN ×5 (01:32→16:28)
[2018-01-10] MEDS: Sod Chloride 0.9% Inj 1,000 ML IV.SIG SCH ×3 (04:13→15:11)
[2018-01-10 08:43] VITALS: RESP 18
[2018-01-10] MEDS: predniSONE 20 MG Tablet PO SCH (08:46)
[2018-01-10] MEDS ORDERED: Methylene Blue Inj 100 MG/10 ML Vial IV.PUSH PRN (08:51)
[2018-01-10] MEDS ORDERED: Rivaroxaban 15 MG Tablet PO SCH (09:00)
--- NOTE | 2018-01-10 10:18 | P.PNONC ---
Subjective Interval history: Afebrile. Tolerating chemotherapy well. Patient expresses gratitude to the nursing staff. He hopes to be discharged today after chemotherapy. He reports after his last cycle of chemotherapy, he had generalized edema. We will plan to give him diuretic today. Discussed with patient's nurse he should be completing his chemotherapy soon and we estimate his 6 hours post chemo urine surveillance will ended approximately 8 PM. Objective Vital Signs/Intake & Output: Vital Signs 01/09/18 10:43 01/09/18 10:53 01/09/18 11:00 Temperature 98.7 F Pulse Rate 98 H 85 Respiratory Rate 18 18 Blood Pressure 113/78 Pulse Oximetry 92 L 01/09/18 11:48 01/09/18 12:07 01/09/18 13:38 Temperature Pulse Rate 110 H Respiratory Rate 17 18 18 Blood Pressure Pulse Oximetry 01/09/18 14:16 01/09/18 15:12 01/09/18 15:56 Temperature 98.7 F Pulse Rate 101 H 95 H Respiratory Rate 18 18 Blood Pressure 129/81 Pulse Oximetry 91 L 01/09/18 16:23 01/09/18 18:07 01/09/18 18:29 Temperature Pulse Rate 107 H Respiratory Rate 18 16 18 Blood Pressure Pulse Oximetry 01/09/18 20:00 01/09/18 22:13 01/10/18 00:00 Temperature 97.9 F 98 F Pulse Rate 103 H 110 H 110 H Respiratory Rate 16 18 16 Blood Pressure 125/83 133/82 Pulse Oximetry 94 L 94 L 01/10/18 04:00 01/10/18 07:00 01/10/18 08:00 Temperature 98 F 98.5 F Pulse Rate 106 H 99 H 105 H Respiratory Rate 17 18 Blood Pressure 129/83 141/92 H Pulse Oximetry 94 L 96 01/10/18 08:46 Temperature Pulse Rate Respiratory Rate 18 Blood Pressure Pulse Oximetry Intake & Output 01/09/18 01/10/18 01/10/18 18:59 06:59 18:59 Intake Total 3251 / 3251 2440 / 2440 Output Total 300 / 300 1600 / 1600 250 / 250 Balance 2951 / 2951 840 / 840 -250 / -250 Intake: IV 891 / 891 1000 / 1000 Paraplatin Inj 750 MG In NS Inj 325 / 325 250 ML @ 650 mls/hr IV.SIG ONCE ONE Rx#:[id number] Vepesid Inj 200 MG In NS Inj 510 / 510 500 ML @ 510 mls/hr IV.SIG Q24H [facility] Rx#:[id number] Kytril Inj 1 MG Decadron Inj 20 56 / 56 MG In NS Inj 50 ML @ 336 mls/ hr IV.SIG ONCE ONE Rx#:[id number] NS Inj 1,000 ML @ 200 mls/hr IV 1000 / 1000 .SIG .Q5H [facility] Rx#:[id number] Oral 2360 / 2360 1440 / 1440 Output: Urine 300 / 300 1600 / 1600 250 / 250 Other: Date of Last Bowel Movement 01/07/18 01/07/18 01/06/18 Result Diagrams: 01/09/18 05:20 01/09/18 05:20 Medications: Active Medications Generic Name Dose Route Start Last Admin Trade Name Freq PRN Reason Stop Dose Admin Acetaminophen 325 mg 01/09/18 10:07 01/09/18 10:55 Tylenol PO 325 mg Q6H PRN Administration PAIN 1-10 AND/OR FEVER >101F Al Hydroxide/Mg Hydroxide 15 ml 01/08/18 08:53 01/10/18 08:45 Milk Of Magnesia Liq PO 15 ml DAILY PRN Administration CONSTIPATION Albuterol 2.5 mg 01/08/18 18:34 01/09/18 22:11 Albuterol Concentrated Neb NEB 2.5 mg Q4HR NEB PRN Administration SHORTNESS OF BREATH/WHEEZING Ifosfamide 10,000 mg/ [place] 10 1,100 mls @ 45.833 mls/hr 01/09/18 14:30 01/09 15:07 ,000 mg/ Sodium Chloride IV.SIG 01/10/18 14:29 45.83 mls/hr ONCE ONE Administration Sodium Chloride 1,000 mls @ 150 mls/hr 01/09/18 19:45 01/10/18 04:13 Ns Inj IV.SIG 150 mls/hr .Q6H40M BANDAR Administration Morphine Sulfate 4 mg 01/08/18 08:53 01/10/18 08:46 Morphine Inj IV.PUSH 4 mg Q2H PRN Administration Pain Scale 8 to 10 Oxycodone HCl 10 mg 01/08/18 08:53 01/10/18 07:14 Roxicodone PO 10 mg Q3H PRN Administration Pain Scale 8 to 10 Prednisone 20 mg 01/09/18 13:30 01/10/18 08:46 Deltasone PO 20 mg DAILY BANDAR Administration Rivaroxaban 15 mg 01/10/18 09:00 01/10/18 08:46 Xarelto PO 15 mg DAILY BANDAR Administration Objective Remarks: GENERAL: Well-nourished, well-developed male patient, sitting in bed, in no acute distress. SKIN: Warm and dry. Midline to RUE, drsg dry/intact, no erythema, swelling or discharge noted. HEAD: Normocephalic. EYES: No scleral icterus. No injection or drainage. NECK: Supple, trachea midline. CARDIOVASCULAR: Regular rate and rhythm without murmurs. RESPIRATORY: Posterior breath sounds clear, equal bilaterally. No accessory muscle use. GASTROINTESTINAL: Abdomen soft, non-tender, nondistended. EXTREMITIES: No cyanosis, or edema. MUSCULOSKELETAL: Adequate muscle tone. NEUROLOGICAL: No obvious focal deficit. Awake, alert, and oriented x3. PSYCHIATRIC: Appropriate mood and affect; insight and judgment normal. Assessment/Plan - Plan 42-year-old male with history of T-cell acute lymphoblastic lymphoma. He was treated with R CHOP with good response. 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 During evaluation for transplant at [facility] he was unfortunately found to have recurrence. Patient had ICE chemotherapy on November. He comes in the hospital for cycle #2. 1. Continue chemotherapy. Patient tolerating well. 2. Continue rivaroxaban for history of DVT/SVC syndrome. 3. Resume prednisone at 20 mg daily. Patient can be decreased to 15 mg daily upon discharge. 4. Anticipate discharge this evening after evaluating urine output for 6 hours post chemotherapy. 5. Patient to report to the transfusion center on Saturday for his G-CSF support. 6. He will follow-up as scheduled with Dr. Leigh in the outpatient clinic. - Attending Statement The exam, history, and the medical decision-making described in the above note were completed with the assistance of the mid-level provider. I reviewed and agree with the findings presented. I attest that I had a [id number] encounter with the patient on the same day, and personally performed and documented my assessment and findings in the medical record. No headache today. Tolerating chemo well. Good urine output. Denies any urinary complaints. Eager to finish with his chemotherapy and go home. Anticipate Neulasta support on at our infusion center over the weekend. We discussed the baum follow-up appointment in [address] PET scan evaluation after 2 cycles of salvage chemotherapy with ICE. Ultimately I transplant at [facility] will be consulted pending his response to above. Clinically he is doing well. Albuterol will be prescribed for his respiratory treatments at home. Pain medication requirement is decreased. Vfend continue. Chronic anticoagulant therapy continue. Midline will be discontinued prior to discharge as well as the IV site. Prednisone will be decreased to 15 mg daily.
[2018-01-10] MEDS ORDERED: Granisetron Inj 1 MG in Sodium Chlor 0.9% Inj 50 ML IV.SIG ONE (14:30)
[2018-01-10] MEDS ORDERED: Etoposide Inj 200 MG in Sodium Chlor 0.9% Inj 500 ML IV.SIG ONE ×2 (15:00→15:11)
[2018-01-10 15:22] VITALS: BP 149/83; TEMP 96.5; O2SAT 97
[2018-01-10] MEDS: RESP: Albuterol Concentrated 2.5 MG/0.5 ML Neb NEB PRN (17:43)
[2018-01-10 17:45] VITALS: PULSE 100
--- NOTE | 2018-01-13 09:48 | P.DS ---
Date of admission: 01/08/18 06:54 Primary care physician: UNKNOWN Brief History from admission: 42-year-old male with history of T-cell acute lymphoblastic lymphoma. He was treated with R CHOP with good response. 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 During evaluation for transplant at [facility] he was unfortunately found to have recurrence. Patient had ICE chemotherapy on November. He comes in the hospital for cycle #2. DS: Diagnosis - Discharge Diagnosis (1) Non-Hodgkin's lymphoma in adult Status: Chronic DS: Medications - Discharge Medications Prescriptions: prednisone 15 mg PO DAILY #30 tab DS: Summary Hospital Course: Patient received cycle #2 of RICE chemotherapy for T-cell acute lymphoblastic lymphoma. He tolerated chemotherapy well, no adverse reactions were noted. Patients urine outpt was monitored for 6 hours post Ifostamide. - Time Spent with Patient Total time spent providing and/or coordinating discharge services: Greater than 30 minutes - Quality: VTE Deep Vein Thrombosis/Pulmonary Embolism Present on Admission: No Exam Narrative: See physical exam on progress note dated 01/10/18 Results Procedures completed during hospitalization: Mid-line access for chemotherapy. Discharge Plan - Discharge Disposition Patient Disposition: 01 Discharge Home - Discharge Condition Condition: Good - Discharge Order Discharge Orders: Discharge Order (Routine); Ordered 01/10/18 Ordered By: Jen Karimi - Discharge Details Anticipated Discharge Date: 01/10/18 Discharge Comment: Anticipate discharge after urine output surveilance for 6 hours post chemo. - Physicians Team Primary Care Provider: UNKNOWN, Attending Provider: Aysha Leigh - Rxs /Orders / Referrals /Forms Prescriptions: Continue albuterol sulfate 90 mcg/actuation Hfa Aerosol Inhaler 2 puff Inhalation Q4-6H PRN (Reason: Shortness Of Breath Or Wheezing) morphine 30 mg Tablet 30 mg PO BID PRN (Reason: Pain) sennosides-docusate sodium [Senna Plus] 8.6-50 mg Tablet 2 tab PO BID Qty: 120 RF: 0 voriconazole [Vfend] 200 mg Tablet 200 mg PO DAILY Qty: 30 RF: 0 Xarelto tablet 15 mg PO DAILY Qty: 30 Changed prednisone 20 mg Tablet 15 mg PO DAILY Qty: 30 Changed from: 20 mg oral daily Referrals: Aysha Leigh MD [Physician] - See Instructions (Please report to the infusion center on Saturday for your [place], between the hours of 7:30-9:00 a.m. [address] Follow-up as scheduled. ) UNKNOWN, [Primary Care Provider] - See Instructions - Discharge Instructions Patient Printed Instructions: Prednisone (By mouth) Additional Instructions: Your Health Problems: Goals to Promote Your Health: * To prevent worsening of your condition * To maintain your health at the optimal level Directions to Meet Your Goals: * Take your medications as prescribed * Follow your dietary instruction * Follow activity as directed * Keep your appointments as scheduled * Take your immunizations and boosters as scheduled * If your symptoms worsen call your PCP * If no PCP go to Urgent Care or Emergency Room Smoking is dangerous to your health. Avoid second hand smoke. You may reach the 24-hour crisis hotline for domestic abuse at . - Post Discharge Care Plan Care Plan Goals: Your Health Problems: Goals to Promote Your Health: * To prevent worsening of your condition * To maintain your health at the optimal level Directions to Meet Your Goals: * Take your medications as prescribed * Follow your dietary instruction * Follow activity as directed * Keep your appointments as scheduled * Take your immunizations and boosters as scheduled * If your symptoms worsen call your PCP * If no PCP go to Urgent Care or Emergency Room Smoking is dangerous to your health. Avoid second hand smoke. You may reach the 24-hour crisis hotline for domestic abuse at .
== END 2018-01-10 20:30 | disposition home or self-care (01) ==
LOC: HCIN 01-08 06:54
PROVIDERS: ADMIT Internal Medicine Hematology & Oncology; ATTEND Internal Medicine Hematology & Oncology

== ENCOUNTER 2018-02-07 07:15 | Inpatient (IN) ==
[2018-02-07] MEDS ORDERED: Aluminum/Magnesium/Simethacone Susp 30 ML UDC PO PRN (09:07)
[2018-02-07] MEDS ORDERED: Cathflo Activase Inj 2 MG Vial I-CATHETER PRN (09:07)
[2018-02-07] MEDS ORDERED: LORazepam 0.5 MG Tablet PO PRN (09:07)
[2018-02-07] MEDS: Morphine Inj 4 MG/ML Vial IV.PUSH PRN ×5 (10:01→22:14)
[2018-02-07] MEDS ORDERED: Senna/Docusate Sodium 8.6/50 MG Tablet PO PRN (10:40)
[2018-02-07 10:58] LABS: Baso # (Auto) 0.1 th/mm3 (0.0-0.2); Baso % (Auto) 0.9 % (0.0-2.0); Eos # (Auto) 0.1 th/mm3 (0.0-0.4); Eos % (Auto) 1.4 % (0.0-4.0); Hematocrit 31.1 % (39.0-51.0); Hemoglobin 10.3 gm/dL (13.0-17.0); Lymph # (Auto) 0.4 th/mm3 (1.0-4.8); Lymph % (Auto) 5.3 % (9.0-44.0); Mean Corpuscular Hemoglobin 27.3 pg (27.0-34.0); Mean Corpuscular Volume 82.8 fL (80.0-100.0); Mean Platelet Volume 7.2 fL (7.0-11.0); Mono % (Auto) 13.2 % (0.0-8.0); Neut % (Auto) 79.2 % (16.0-70.0); Platelet Count 339 th/mm3 (150-450); Red Blood Count 3.76 mil/mm3 (4.50-5.90); Red Cell Distribution Width 21.1 % (11.6-17.2); White Blood Count 7.6 th/mm3 (4.0-11.0)
[2018-02-07 11:19] LABS: Albumin 3.5 g/dL (3.4-5.0); Anion Gap 9 meq/L (5-15); Aspartate Aminotransferase 25 U/L (15-37); Blood Urea Nitrogen 14 mg/dL (7-18); Calcium 8.9 mg/dL (8.5-10.1); Carbon Dioxide 26.3 meq/L (21.0-32.0); Chloride 105 meq/L (98-107); Glomerular Filtration Rate Greater Than 89 mL/min (>89); Glucose,Random 100 mg/dL (74-106); Sodium 140 meq/L (136-145)
[2018-02-07 11:20] LABS: Alanine Aminotransferase 55 U/L (12-78); Phosphorus 3.5 mg/dL (2.5-4.9)
[2018-02-07 11:22] LABS: Alkaline Phosphatase 93 U/L (45-117); Total Protein 7.2 g/dL (6.4-8.2)
[2018-02-07] MEDS: Granisetron Inj 1 MG, Dexamethasone Inj 20 MG in Sodium Chlor 0.9% Inj 50 ML IV.SIG SCH ×2 (11:48)
[2018-02-07] MEDS: Etoposide Inj 200 MG in Sodium Chlor 0.9% Inj 500 ML IV.SIG SCH (12:36)
[2018-02-07] MEDS: predniSONE 10 MG Tablet PO SCH (12:45)
[2018-02-07] MEDS: Voriconazole 200 MG Tablet PO SCH (12:45)
[2018-02-07] MEDS ORDERED: Methylene Blue Inj 100 MG/10 ML Vial IV.PUSH PRN (20:27)
[2018-02-07 20:44] LABS: Bilirubin,Urine Negative (Negative); Clarity,Urine Clear (Clear); Color,Urine Yellow (Yellw/Straw); Glucose,Urine (UA) Negative (Negative); Leukocyte Esterase,Urine Negative (Negative); Mucus,Urine Few /lpf (Occasional); Nitrite,Urine Negative (Negative); Specific Gravity,Urine 1.024 (1.002-1.035)
[2018-02-07] MEDS ORDERED: Temazepam 15 MG Capsule PO PRN (21:00)
[2018-02-08] MEDS: Morphine Sulfate 30 MG IR Tablet PO PRN ×3 (00:01→23:59)
[2018-02-08] MEDS: Morphine Inj 4 MG/ML Vial IV.PUSH PRN ×7 (01:18→22:57)
[2018-02-08 05:04] LABS: Baso % (Auto) 0.3 % (0.0-2.0); Hemoglobin 10.5 gm/dL (13.0-17.0); Lymph # (Auto) 0.1 th/mm3 (1.0-4.8); Lymph % (Auto) 1.6 % (9.0-44.0); Mean Corpuscular HGB Conc 32.7 % (32.0-36.0); Mean Corpuscular Hemoglobin 27.3 pg (27.0-34.0); Mean Corpuscular Volume 83.7 fL (80.0-100.0); Mean Platelet Volume 6.9 fL (7.0-11.0); Mono # (Auto) 0.2 th/mm3 (0.0-0.9); Neut # (Auto) 7.3 th/mm3 (1.8-7.7); Neut % (Auto) 96.1 % (16.0-70.0); Platelet Count 382 th/mm3 (150-450); Red Blood Count 3.82 mil/mm3 (4.50-5.90); Red Cell Distribution Width 20.7 % (11.6-17.2); White Blood Count 7.6 th/mm3 (4.0-11.0)
[2018-02-08 05:36] LABS: Anion Gap 10 meq/L (5-15); Blood Urea Nitrogen 16 mg/dL (7-18); Carbon Dioxide 25.9 meq/L (21.0-32.0); Chloride 103 meq/L (98-107); Glomerular Filtration Rate Greater Than 89 mL/min (>89); Glucose,Random 138 mg/dL (74-106); Potassium 4.5 meq/L (3.5-5.1); Sodium 139 meq/L (136-145)
[2018-02-08] MEDS: predniSONE 10 MG Tablet PO SCH (10:29)
[2018-02-08] MEDS: Voriconazole 200 MG Tablet PO SCH (10:29)
[2018-02-08] MEDS: Rivaroxaban 15 MG Tablet PO SCH (10:29)
[2018-02-08] MEDS: Senna/Docusate Sodium 8.6/50 MG Tablet PO SCH ×2 (10:30→20:02)
[2018-02-08] MEDS: Granisetron Inj 1 MG, Dexamethasone Inj 20 MG in Sodium Chlor 0.9% Inj 50 ML IV.SIG SCH ×2 (10:31)
[2018-02-08] MEDS ORDERED: CARBOplatin Inj 750 MG in Sodium Chlor 0.9% Inj 250 ML IV.SIG ONE (12:00)
[2018-02-08] MEDS ORDERED: MESNA IV.SIG ONE (12:30)
[2018-02-08] MEDS ORDERED: SOD CHLORIDE 0.9% IV.SIG ONE (12:30)
[2018-02-08] MEDS ORDERED: IFOSFAMIDE IV.SIG ONE (12:30)
[2018-02-08] MEDS: Etoposide Inj 200 MG in Sodium Chlor 0.9% Inj 500 ML IV.SIG SCH (12:51)
[2018-02-08] MEDS: LORazepam 0.5 MG Tablet PO PRN ×2 (15:13→23:58)
[2018-02-09] MEDS: Morphine Inj 4 MG/ML Vial IV.PUSH PRN ×7 (01:56→20:39)
[2018-02-09 06:17] LABS: Baso % (Auto) 0.2 % (0.0-2.0); Hematocrit 28.6 % (39.0-51.0); Hemoglobin 9.5 gm/dL (13.0-17.0); Lymph # (Auto) 0.1 th/mm3 (1.0-4.8); Mean Corpuscular HGB Conc 33.2 % (32.0-36.0); Mean Corpuscular Hemoglobin 27.6 pg (27.0-34.0); Mean Corpuscular Volume 83.2 fL (80.0-100.0); Mean Platelet Volume 7.2 fL (7.0-11.0); Mono # (Auto) 0.4 th/mm3 (0.0-0.9); Mono % (Auto) 6.5 % (0.0-8.0); Neut % (Auto) 92.3 % (16.0-70.0); Platelet Count 322 th/mm3 (150-450); Red Blood Count 3.44 mil/mm3 (4.50-5.90); White Blood Count 6.5 th/mm3 (4.0-11.0)
[2018-02-09 06:24] LABS: Anion Gap 10 meq/L (5-15); Blood Urea Nitrogen 14 mg/dL (7-18); Calcium 8.3 mg/dL (8.5-10.1); Carbon Dioxide 24.3 meq/L (21.0-32.0); Chloride 108 meq/L (98-107); Glomerular Filtration Rate Greater Than 89 mL/min (>89); Glucose,Random 173 mg/dL (74-106); Potassium 4.1 meq/L (3.5-5.1); Sodium 142 meq/L (136-145)
[2018-02-09] MEDS: Voriconazole 200 MG Tablet PO SCH (08:05)
[2018-02-09] MEDS: predniSONE 10 MG Tablet PO SCH (08:06)
[2018-02-09] MEDS: Senna/Docusate Sodium 8.6/50 MG Tablet PO SCH ×2 (08:06→20:39)
[2018-02-09] MEDS: Rivaroxaban 15 MG Tablet PO SCH (08:06)
[2018-02-09] MEDS ORDERED: Granisetron Inj 1 MG, Dexamethasone Inj 20 MG in Sodium Chlor 0.9% Inj 50 ML IV.SIG ONE ×2 (12:30)
[2018-02-09] MEDS ORDERED: Etoposide Inj 200 MG in Sodium Chlor 0.9% Inj 500 ML IV.SIG ONE (13:00)
[2018-02-09] MEDS: Morphine Sulfate 30 MG IR Tablet PO PRN ×2 (13:33→21:13)
[2018-02-09] MEDS ORDERED: Furosemide 40 MG Tablet PO ONE (18:00)
== END 2018-02-09 23:40 | disposition home or self-care (01) ==
LOC: HCIN 07:15
PROVIDERS: ADMIT Internal Medicine Hematology & Oncology; ATTEND Internal Medicine Hematology & Oncology

== ENCOUNTER 2018-04-12 03:55 | Observation (INO) ==
[2018-04-12] MEDS ORDERED: Morphine Inj 4 MG/ML Vial IV.PUSH ONE (04:19)
[2018-04-12 04:37] LABS: Baso % (Auto) 0.2 % (0.0-2.0); Eos % (Auto) 0.2 % (0.0-4.0); Hematocrit 31.2 % (39.0-51.0); Hemoglobin 9.9 gm/dL (13.0-17.0); Lymph # (Auto) 0.1 th/mm3 (1.0-4.8); Lymph % (Auto) 2.2 % (9.0-44.0); Mean Corpuscular HGB Conc 31.9 % (32.0-36.0); Mean Corpuscular Hemoglobin 25.1 pg (27.0-34.0); Mean Corpuscular Volume 78.8 fL (80.0-100.0); Mean Platelet Volume 7.4 fL (7.0-11.0); Mono # (Auto) 0.7 th/mm3 (0.0-0.9); Mono % (Auto) 10.9 % (0.0-8.0); Neut # (Auto) 5.2 th/mm3 (1.8-7.7); Neut % (Auto) 86.5 % (16.0-70.0); Platelet Count 123 th/mm3 (150-450); Red Blood Count 3.95 mil/mm3 (4.50-5.90); Red Cell Distribution Width 19.4 % (11.6-17.2); White Blood Count 6.1 th/mm3 (4.0-11.0)
--- NOTE | 2018-04-12 04:43 | ED ---
HPI General Chief complaint: Respiratory Symptoms Stated complaint: Medical Time Seen by Provider: 04/12/18 04:19 Source: patient, RN notes reviewed and old records reviewed Mode of arrival: ambulatory Limitations: no limitations History of Present Illness HPI narrative: 42-year-old male with history of T for cell lymphoblastic lymphoma, with recurrent malignant pleural effusions. Followed by Dr. Leigh, as well as with Amy Landa. Last had thoracentesis several days ago, 2- 3 L taken off, and again 5 days before that. Comes back today complaining of increased shortness of breath, worse with lying flat, as well as subjective fevers and chills. Feels like when he has had pleural effusions in the past. No other complaints. No pain. No aggravating or alleviating factors besides laying flat. Symptoms been constant since onset, gradual onset over the past 24 -48 hours. Related Data Home Medications Medication Instructions Recorded Confirmed albuterol sulfate 2 puff INHALATION Q4-6H PRN 12/13/17 04/12/18 morphine 30 mg PO BID PRN 12/13/17 04/12/18 prednisone 5 mg PO DAILY 04/08/18 04/12/18 voriconazole [Vfend] 100 mg PO DAILY 04/08/18 04/12/18 rivaroxaban [Xarelto] 15 mg PO QPM 04/12/18 04/12/18 Previous Rx's Medication Instructions Recorded sennosides-docusate sodium [Senna 2 tab PO BID #120 tab 12/17/17 Plus] ipratropium-albuterol 1 amp NEB Q2HR NEB PRN ml 02/09/18 Allergies Allergy/AdvReac Type Severity Reaction Status Date / Time adhesive tape AdvReac Blister Verified 04/12/18 03:58 Review of Systems ROS: all other systems reviewed are negative [facility] Medical History Medical History Hx of blood clots (Acute) Lymphoma (Acute) History of chemotherapy (Acute) Surgical History Surgical History History of thoracentesis (Acute) Social History Social History Substance History: No History of Abuse Second Hand Smoke Exposure: No Smoking Status: Never smoker How Often Do You Have a Drink Containing Alcohol: Never Recent [facility] within the Last 8 Weeks: No Recent Out of Country Travel within the Last 8 Weeks: No Immunization History Tetanus Immunization: <5 Years Exam Narrative Exam Narrative: GENERAL: 43-year-old man, generally well-appearing, nontoxic. SKIN: Focused skin assessment warm/dry. HEAD: Atraumatic. Normocephalic. EYES: Pupils equal and round. No scleral icterus. No injection or drainage. ENT: No nasal bleeding or discharge. Mucous membranes pink and moist. NECK: Trachea midline. No JVD. CARDIOVASCULAR: Heart rate rapid. No murmurs. RESPIRATORY: Absent breath sounds on the right hemithorax. Mild respiratory distress with tachypnea. GASTROINTESTINAL: Abdomen soft, non-tender, nondistended. Hepatic and splenic margins not palpable. MUSCULOSKELETAL: No obvious deformities. No clubbing. No cyanosis. No edema. NEUROLOGICAL: Awake and alert. No obvious cranial nerve deficits. Motor grossly within normal limits. Normal speech. PSYCHIATRIC: Appropriate mood and affect; insight and judgment normal. Course Initial Documented Vital Signs Temperature 98 F 04/12/18 03:58 Pulse Rate 127 H 04/12/18 03:58 Respiratory Rate 24 04/12/18 03:58 Blood Pressure 153/83 H 04/12/18 03:58 Pulse Oximetry 93 L 04/12/18 03:58 Last Documented Vital Signs Temperature 98 F 04/12/18 03:58 Pulse Rate 124 H 04/12/18 05:00 Respiratory Rate 31 H 04/12/18 05:00 Blood Pressure 139/74 04/12/18 05:00 Pulse Oximetry 93 L 04/12/18 05:00 Medical Decision Making [facility] Narrative Medical decision making narrative: Is a 43-year-old male presents to the emergency department with worsening shortness of breath, likely recurrent right- sided pleural effusion apparently related to right lung radiation pneumonitis. Will check labs, x-ray. Concerning that he has had subjective fevers. No fever here. Medical Screen Exam Complete: Yes Emergency Medical Condition: Yes Lab Data Lab results reviewed: Yes I reviewed the patient's lab results. Result diagrams: 04/12/18 04:23 04/12/18 04:23 Lab Results 04/12/18 04/12/18 04/12/18 Range/Units 04:23 04:23 04:23 WBC 6.1 (4.0-11.0) th/mm3 RBC 3.95 L (4.50-5.90) mil/mm3 Hgb 9.9 L (13.0-17.0) gm/dL Hct 31.2 L (39.0-51.0) % MCV 78.8 L (80.0-100.0) fL MCH 25.1 L (27.0-34.0) pg MCHC 31.9 L (32.0-36.0) % RDW 19.4 H (11.6-17.2) % Plt Count 123 L D (150-450) th/mm3 MPV 7.4 (7.0-11.0) fL Neut % (Auto) 86.5 H (16.0-70.0) % Lymph % (Auto) 2.2 L (9.0-44.0) % [place] % (Auto) 10.9 H (0.0-8.0) % Eos % (Auto) 0.2 (0.0-4.0) % Baso % (Auto) 0.2 (0.0-2.0) % Neut # (Auto) 5.2 (1.8-7.7) th/mm3 Lymph # (Auto) 0.1 L (1.0-4.8) th/mm3 [place] # (Auto) 0.7 (0.0-0.9) th/mm3 Eos # (Auto) 0.0 (0.0-0.4) th/mm3 Baso # (Auto) 0.0 (0.0-0.2) th/mm3 WBC Differential . Differential Comment Auto diff final PT 10.7 (9.8-11.6) sec INR 1.1 Ratio APTT 34.1 H (23.4-31.7) sec Sodium 132 L (136-145) meq/L Potassium 3.3 L (3.5-5.1) meq/L Chloride 95 L (98-107) meq/L Carbon Dioxide 27.7 (21.0-32.0) meq/L Anion Gap 9 (5-15) meq/L BUN 15 (7-18) mg/dL Creatinine 1.32 H (0.60-1.30) mg/dL Estimated GFR 59 L (>89) mL/min Random Glucose 167 H (74-106) mg/dL Calcium 8.3 L (8.5-10.1) mg/dL Total Bilirubin 0.4 (0.2-1.0) mg/dL AST 39 H (15-37) U/L ALT 27 (12-78) U/L Alkaline Phosphatase 112 (45-117) U/L Total Protein 6.1 L D (6.4-8.2) g/dL Albumin 2.1 L (3.4-5.0) g/dL Imaging Data Radiologist's impression: Chest X-Ray 04/12/18 04:19 CONCLUSION: Stable exam with opacified right hemithorax. Right-sided catheter unchanged. White out of the right chest Discharge Plan Discharge Disposition Patient Disposition: 30 Still Patient Physicians Team ED Provider: Nathan Steel Primary Care Provider: UNKNOWN, Attending Provider: Sarah Urias Discharge Interventions Interventions: Vital Signs Last Done: 04/12/18 05:00 Status ED Status: Admitted Patient
[2018-04-12 04:50] LABS: Activated Partial Thrombo Time 34.1 sec (23.4-31.7); INR 1.1 Ratio; Prothrombin Time 10.7 sec (9.8-11.6)
[2018-04-12 04:54] LABS: Alanine Aminotransferase 27 U/L (12-78); Albumin 2.1 g/dL (3.4-5.0); Anion Gap 9 meq/L (5-15); Aspartate Aminotransferase 39 U/L (15-37); Blood Urea Nitrogen 15 mg/dL (7-18); Calcium 8.3 mg/dL (8.5-10.1); Carbon Dioxide 27.7 meq/L (21.0-32.0); Chloride 95 meq/L (98-107); Glomerular Filtration Rate 59 mL/min (>89); Glucose,Random 167 mg/dL (74-106); Potassium 3.3 meq/L (3.5-5.1); Sodium 132 meq/L (136-145)
[2018-04-12 04:58] LABS: Alkaline Phosphatase 112 U/L (45-117); Total Protein 6.1 g/dL (6.4-8.2)
--- NOTE | 2018-04-12 05:00 | XR ---
EXAM DATE: 04/12/2018 4:38 AM EST AGE/SEX: 43 years / Male INDICATIONS: Fever. CLINICAL DATA: This is the patient's initial encounter. Patient reports that signs and symptoms have been present for 1 day and indicates a pain score of 0/10. MEDICAL/SURGICAL HISTORY: Lymphoma. . [id number]. COMPARISON: C, CHEST 1V SINGLE AP, 04/08/2018. . FINDINGS: Right central line dialysis catheter tip in superior vena cava. Stable opacification of the right hem ithorax and left lung remains clear. No pneumothorax. CONCLUSION: Stable exam with opacified right hemithorax. Right-sided catheter unchanged. Electronically signed by: Kavon Green MD 04/12/2018 4:59 AM EST
[2018-04-12] MEDS ORDERED: Morphine Sulfate 30 MG IR Tablet PO PRN (05:32)
[2018-04-12] MEDS ORDERED: Acetaminophen 325 MG Tablet PO PRN (05:32)
[2018-04-12] MEDS ORDERED: Bisacodyl 10 MG Supp RECTAL PRN (05:32)
[2018-04-12] MEDS: Senna/Docusate Sodium 8.6/50 MG Tablet PO SCH ×2 (09:35→20:13)
[2018-04-12] MEDS: predniSONE 5 MG Tablet PO SCH (09:35)
[2018-04-12] MEDS ORDERED: Naloxone Inj 0.4 MG/ML Vial IV.PUSH PRN (09:57)
[2018-04-12] MEDS ORDERED: Morphine Sulfate Inj 2 MG/ML Vial IV.PUSH PRN (09:57)
--- NOTE | 2018-04-12 10:10 | P.HP ---
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 Finding on x-ray shows total opacification of the right lung Inpatient Certification: I certify that the inpatient services were ordered in accordance with Medicare regulations governing the order. 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 History of chemotherapy - Surgical History Surgical History: Surgical History (Last Updated 04/12/18 @ 04:42 by Nathan Steel MD) History of thoracentesis - Family History Family History: Family History (Last Updated 04/12/18 @ 10:11 by Db Caraballo MD) Other Coronary artery disease - Tobacco History Second Hand Smoke Exposure: No Smoking Status: Never smoker - Alcohol History How Often Do You Have a Drink Containing Alcohol: Never - Substance Use History Substance History: No History of Abuse - Travel History Recent Travel in the [place] Within the Last 8 Weeks: No Recent Travel Out of the Country Within the Last 8 Weeks: No - Immunization History Tetanus Immunization: <5 Years Hx Influenza Vaccine This Season: No Medications and Allergies Active Medications: Active Medications Acetaminophen (Tylenol) 650 mg PO Q4H PRN PRN Reason: Temp > 100.4 Al Hydroxide/Mg Hydroxide (Milk Of Alberto Liq) 30 ml PO Q12H PRN PRN Reason: Mild Constipation Albuterol (Duoneb Neb (Prn)) 1 ampul NEB Q2HR NEB PRN PRN Reason: wheezing/SOB Bisacodyl (Dulcolax Supp) 10 mg RECTAL DAILY PRN PRN Reason: SEVERE CONSITIPATION Ibuprofen (Motrin) 400 mg PO Q6HR PRN PRN Reason: PAIN SCALE 1 TO 2 Lactulose (Lactulose Liq) 30 ml PO DAILY PRN PRN Reason: SEVERE CONSITIPATION Morphine Sulfate (Msir) 30 mg PO BID PRN PRN Reason: PAIN SCALE 1 TO 10 Last Admin: 04/12/18 08:15 Dose: 30 mg Morphine Sulfate (Morphine Inj) 2 mg IV.PUSH Q4H PRN PRN Reason: PAIN 3-5; IF UABLE TO TAKE PO Morphine Sulfate (Morphine Inj) 4 mg IV.PUSH Q4H PRN PRN Reason: PAIN 6-10;IF UNABLE TO TAKE PO Naloxone HCl (Narcan Inj) 0.4 mg IV.PUSH UNSCH PRN PRN Reason: SEE LABEL COMMENTS Ondansetron HCl (Zofran Inj) 4 mg IV.PUSH Q6H PRN PRN Reason: NAUSEA OR VOMITING Pantoprazole Sodium (Protonix) 40 mg PO DAILY [facility] Potassium Chloride (K-Dur) 60 meq PO ONCE ONE Stop: 04/12/18 10:01 Prednisone (Deltasone) 5 mg PO DAILY [facility] Last Admin: 04/12/18 09:35 Dose: 5 mg Senna/Docusate Sodium (Naa-Colace) 1 tab PO BID [facility] Last Admin: 04/12/18 09:35 Dose: 1 tab Sennosides (Senokot) 17.2 mg PO Q12H PRN PRN Reason: Moderate Constipation Voriconazole (Vfend) 100 mg PO DAILY [facility] Allergies Allergy/AdvReac Type Severity Reaction Status Date / Time adhesive tape AdvReac Blister Verified 04/12/18 03:58 Home Medications Medication Instructions Recorded Confirmed Type albuterol sulfate 2 puff INHALATION Q4-6H PRN 12/13/17 04/12/18 History morphine 30 mg PO BID PRN 12/13/17 04/12/18 History prednisone 5 mg PO DAILY 04/08/18 04/12/18 History voriconazole [Vfend] 100 mg PO DAILY 04/08/18 04/12/18 History rivaroxaban [Xarelto] 15 mg PO QPM 04/12/18 04/12/18 History Exam Vital signs: Vital Signs 04/12/18 03:58 04/12/18 04:01 04/12/18 05:00 Temperature 98 F Pulse Rate 127 H 130 H 124 H Respiratory Rate 24 32 H 31 H Blood Pressure 153/83 H 143/87 H 139/74 Pulse Oximetry 93 L 95 93 L 04/12/18 06:19 04/12/18 07:10 04/12/18 07:49 Temperature Pulse Rate 115 H 115 H Respiratory Rate 30 H 24 19 Blood Pressure 120/77 130/82 Pulse Oximetry 94 L 93 L 04/12/18 08:16 04/12/18 09:07 Temperature 98.1 F 99.4 F Pulse Rate 121 H Respiratory Rate 26 H Blood Pressure 110/86 Pulse Oximetry 96 Intake & Output 04/11/18 04/12/18 04/12/18 18:59 06:59 18:59 Weight 92.079 kg Other: Date of Last Bowel Movement 04/11/18 Narrative: GENERAL: NAD SKIN: Warm and dry. HEAD: Atraumatic. Normocephalic. EYES: Pupils equal and round. No scleral icterus. No injection or drainage. ENT: No nasal bleeding or discharge. Mucous membranes pink and moist. NECK: Trachea midline. No JVD. CARDIOVASCULAR: Regular rate and rhythm. RESPIRATORY: No accessory muscle use. Decrease breath sounds in R>L GASTROINTESTINAL: Abdomen soft, non-tender, nondistended. Hepatic and splenic margins not palpable. MUSCULOSKELETAL: Extremities without clubbing, cyanosis, or edema. No obvious deformities. NEUROLOGICAL: Awake and alert. No obvious cranial nerve deficits. Motor grossly within normal limits. Five out of 5 muscle strength in the arms and legs. Normal speech. PSYCHIATRIC: Appropriate mood and affect; insight and judgment normal. Results - Labs CBC & Chem 7: 04/12/18 04:23 04/12/18 04:23 Labs: Laboratory Results - last 24 hr 04/12/18 04/12/18 04/12/18 04:23 04:23 04:23 WBC 6.1 RBC 3.95 L Hgb 9.9 L Hct 31.2 L MCV 78.8 L MCH 25.1 L MCHC 31.9 L RDW 19.4 H Plt Count 123 L D MPV 7.4 Neut % (Auto) 86.5 H Lymph % (Auto) 2.2 L Newberry % (Auto) 10.9 H Eos % (Auto) 0.2 Baso % (Auto) 0.2 Neut # (Auto) 5.2 Lymph # (Auto) 0.1 L [place]berry # (Auto) 0.7 Eos # (Auto) 0.0 Baso # (Auto) 0.0 WBC Differential . Differential Comment Auto diff final PT 10.7 INR 1.1 APTT 34.1 H Sodium 132 L Potassium 3.3 L Chloride 95 L Carbon Dioxide 27.7 Anion Gap 9 BUN 15 Creatinine 1.32 H Estimated GFR 59 L Random Glucose 167 H Calcium 8.3 L Total Bilirubin 0.4 AST 39 H ALT 27 Alkaline Phosphatase 112 Total Protein 6.1 L D Albumin 2.1 L - Imaging Impressions Chest X-Ray 04/12/18 04:19 CONCLUSION: Stable exam with opacified right hemithorax. Right-sided catheter unchanged. Caprini VTE Risk Assessment Caprini VTE Risk Assessment: No/Low Risk (score <= 1) Caprini Risk Assessment Model: Point Value = 1 Point Value = 2 Point Value = 3 Point Value = 5 Age 41-60 Minor surgery BMI > 25 kg/m2 Swollen legs Varicose veins or History of unexplained or recurrent spontaneous Oral contraceptives or hormone replacement Sepsis (< 1 month) Serious lung disease, including pneumonia (< 1 month) Abnormal pulmonary function Acute myocardial infarction Congestive heart failure (< 1 month) History of inflammatory bowel disease Medical patient at bed rest Age 61-74 Arthroscopic surgery Major open surgery (> 45 min) Laparoscopic surgery (> 45 min) Malignancy Confined to bed (> 72 hours) Immobilizing plaster cast Central venous access Age >= 75 History of VTE Family history of VTE Factor V Leiden Prothrombin [id number] Lupus anticoagulant Anticardiolipin antibodies Elevated serum homocysteine Heparin-induced thrombocytopenia Other congenital or acquired thrombophilia Stroke (< 1 month) Elective arthroplasty Hip, pelvis, or leg fracture Acute spinal cord injury (< 1 month) Prophylaxis Regimen: Total Risk Factor Score Risk Level Prophylaxis Regimen 0-1 Low Early ambulation 2 Moderate Order ONE of the following: *Sequential Compression Device (SCD) *Heparin 5000 units SQ BID 3-4 Higher Order ONE of the following medications: *Heparin 5000 units SQ TID *Enoxaparin/Lovenox 40 mg SQ daily (WT < 150 kg, CrCl > 30 mL/min) *Enoxaparin/Lovenox 30 mg SQ daily (WT < 150 kg, CrCl > 10-29 mL/min) *Enoxaparin/Lovenox 30 mg SQ BID (WT < 150 kg, CrCl > 30 mL/min) AND/OR *Sequential Compression Device (SCD) 5 or more Highest Order ONE of the following medications: *Heparin 5000 units SQ TID (Preferred with Epidurals) *Enoxaparin/Lovenox 40 mg SQ daily (WT < 150 kg, CrCl > 30 mL/min) *Enoxaparin/Lovenox 30 mg SQ daily (WT < 150 kg, CrCl > 10-29 mL/min) *Enoxaparin/Lovenox 30 mg SQ BID (WT < 150 kg, CrCl > 30 mL/min) AND *Sequential Compression Device (SCD) Assessment and Plan - Plan 43-year-old man with History of T-cell lymphoma status post radiation and chemotherapy Management per oncology, pending consultation Recurrent malignant pleural effusion Chest x-ray noted and reviewed by me with finding of Stable exam with opacified right hemithorax Interventional radiology consulted for ultrasound-guided therapeutic thoracentesis Hypokalemia Replace electrolytes and monitor Other chronic medical conditions Resume outpatient medications
[2018-04-12] MEDS: Morphine Inj 4 MG/ML Vial IV.PUSH PRN ×4 (10:16→20:05)
--- NOTE | 2018-04-12 15:54 | XR ---
EXAM DATE: 04/12/2018 3:51 PM EST AGE/SEX: 43 years / Male INDICATIONS: Post right thoracentesis. CLINICAL DATA: This is the patient's initial encounter. Patient reports that signs and symptoms have been present for 1 day and indicates a pain score of 0/10. MEDICAL/SURGICAL HISTORY: . Lymphoma. . [id number]. [place] [facility] [place]. . FINDINGS: Persistent significant opacification of the right hemithorax following thoracentesis. No significant pneumothorax. Cardiomegaly mediastinal contours are within normal limits. Remainder of exam is unchan ged. CONCLUSION: 1. Persistent opacification of the right hemithorax following thoracentesis without pneumothorax. Electronically signed by: Ash Stover MD 04/12/2018 3:52 PM EST
[2018-04-12] MEDS: Voriconazole 200 MG Tablet PO SCH (16:05)
[2018-04-12] MEDS: Ibuprofen 400 MG Tablet PO PRN (16:05)
--- NOTE | 2018-04-12 16:10 | US ---
EXAM DATE: 04/12/2018 4:05 PM EST AGE/SEX: 43 years / Male INDICATIONS: Right pleural effusion. CLINICAL DATA: This is the patient's subsequent encounter. Patient reports that signs and symptoms h ave been present for 7 - 11 months and indicates a pain score of 0/10. MEDICAL/SURGICAL HISTORY: . Chemotherapy. Blood clots. T-cell lymphoblastic lymphoma. Recurre nt malignant pleural effusions. . Thoracentesis. COMPARISON: [facility] – [place] GUIDED THORACENTESIS RIGHT, 04/08/2018. . FLUID: Total volume of 900 cc of clear, yellow fluid was removed. Fluid was discarded. Thoracentesis was therapeutic only. . . TECHNIQUE: Ultrasound guidance for thoracentesis. Thoracentesis. The risks, benefits, and alternatives to ultrasound guided thoracentesis were explained to the patien t in lay simple terms, including the risk of bleeding and infection. Written and verbal informed con sent was obtained. Appropriate area for right thoracentesis was marked under ultrasound guidance with the patient in the upright position. Overlying skin was prepped and draped in the usual sterile fashion and with local anesthetic, a dermatotomy was made with an 11 blade scalpel. A 6 Sammarinese thoracentesis catheter was placed in the pleural space and fluid was removed. Catheter was then removed and a sterile dressing applied. There were no immediate complications. The patient tolerated the procedure well and the lef t the ultrasound suite in stable condition. Chest radiograph is to be obtained. FINDINGS: Adequate fluid for thoracentesis. CONCLUSION: 1. Uncomplicated thoracentesis. Electronically signed by: Ash Stover MD 04/12/2018 4:08 PM EST
[2018-04-12] MEDS ORDERED: LORazepam 0.5 MG Tablet PO PRN (16:55)
--- NOTE | 2018-04-12 20:45 | MB ---
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 PATIENT PROFILE: The patient is a 43-year-old white male. He is . He has 3 children. He was born in [place]. He has not worked for 1 year due to his current illness. 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 He does not smoke and does not drink. HISTORY OF PRESENT ILLNESS: The patient is a 43-year-old male whose history dates back to April 2017 when he presented with a large mediastinal mass. He was found to have T-cell lymphoblastic lymphoma. He received CHOP chemotherapy for I believe a total of 5 cycles as well as radiation. He was being evaluated for a transplant and unfortunately relapsed before the transplant could take place. He then received ICE chemotherapy and after 3 cycles, appeared to have a response and was going to go on to transplant. He saw his physician at [facility], Dr. Serrano. Unfortunately, before the transplant could take place, he relapsed again with a right pleural effusion. He underwent a thoracentesis and was found to have recurrent T-cell lymphoblastic lymphoma. It was recommended that he receive oxaliplatin and gemcitabine and approximately 10 days ago, he received treatment. The treatment was only at half doses, according to the . During the past month, he has required 5 thoracenteses. These are occurring with greater and greater frequency. He came to the emergency room because of increasing shortness of breath and was found to have complete opacification of the right hemithorax. On 04/12/2018, today, he underwent a thoracentesis and had 900 mL of fluid removed. His breathing is a little better. He is still short of breath. PAST SURGICAL HISTORY: 1. CT-guided biopsy of mediastinal mass 2016. 2. Multiple thoracenteses. 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 MEDICATIONS PRIOR TO ADMISSION: 1. Morphine 30 mg p.o. b.i.d. p.r.n. 2. Albuterol. 3. Prednisone 5 mg a day. 4. Voriconazole. 5. Rivaroxaban 15 mg p.o. q.p.m. The reason for the Xarelto was a previous history of venous thrombosis involving the upper extremity, probably related to a port. He had stopped the Xarelto shortly after his last thoracentesis. ALLERGIES: NO KNOWN ALLERGIES. FAMILY HISTORY: Noncontributory. REVIEW OF SYSTEMS: Weakness, fatigue, poor appetite. No visual or hearing problems. Denies adenopathy. No breast masses. He has shortness of breath. No chest pain. No abdominal pain. Occasional nausea. No dysuria, frequency, hematuria. No bone pain. No skin problems. No neurologic problems. He is depressed and anxious. He also has lower back pain. LABORATORY STUDIES: Hemoglobin 9.9, white count 6000, platelets 123,000, MCV 78. CMP is notable for a glucose of 167, creatinine 1.32, albumin 2.1. Most recent chest x-ray shows opacification of the right hemithorax and an [id number]. Left lung appears clear. PHYSICAL EXAMINATION: GENERAL: Reveals an anxious gentleman. He is mildly short of breath at rest. VITAL SIGNS: Respiratory rate 24, pulse 110, temperature currently 101.6, O2 saturation 92%. HEENT: Head is normocephalic. Sclerae and conjunctivae are normal. Oropharynx is unremarkable. LYMPHATIC: There is a right supraclavicular lymph node about a centimeter in size and a smaller one in the right posterior cervical area. HEART: Regular rhythm. LUNGS: Left lung is clear. Right breath sounds are absent. ABDOMEN: Soft. No hepatosplenomegaly. EXTREMITIES: Trace edema. MUSCULOSKELETAL: No bone pain. NEUROLOGIC: No weakness. PSYCHIATRIC: The patient is anxious. ASSESSMENT: The patient is a 43-year-old male with recurrent T-cell lymphoblastic lymphoma. He has failed CHOP. He has failed ICE. He does not appear to have responded to his first cycle of oxaliplatin and gemcitabine, although the dose was reduced. This is a highly aggressive disease and the likelihood of response to a third line regimen is not great. At this point, it is unclear to me as to how much fluid he has in the right lung and how much is mass. Only 900 mL was removed. PLAN: 1. Check a CT of the thorax without contrast. 2. He is taking voriconazole. It will be continued. 3. He has a fever this evening, probably related to the lymphoma, but I am going to begin him on an antibiotic. Blood cultures have been drawn. Unfortunately, the fluid that was removed from the lung was discarded as at the time it was therapeutic and not a diagnostic thoracentesis. MD CHARLOTTE Escobar/sheridan , 08:13 PM , 08:27 PM [email or web address]
[2018-04-12] MEDS: levoFLOXacin 500 MG Tablet PO SCH (21:06)
[2018-04-12 22:41] LABS: Amorphous Sediment,Urine Rare /hpf; Bacteria,Urine Rare /hpf; Bilirubin,Urine Negative (Negative); Clarity,Urine Cloudy (Clear); Color,Urine Amber (Yellw/Straw); Glucose,Urine (UA) Negative (Negative); Hyaline Casts,Urine 9 /lpf (0-3); Leukocyte Esterase,Urine Negative (Negative); Mucus,Urine Few /lpf (Occasional); Nitrite,Urine Negative (Negative); Specific Gravity,Urine 1.027 (1.002-1.035); Squamous Epithelial Cell,Urine 1 /hpf (0-5)
[2018-04-13] MEDS: Morphine Inj 4 MG/ML Vial IV.PUSH PRN ×4 (02:17→12:06)
[2018-04-13] MEDS: Ibuprofen 400 MG Tablet PO PRN (02:25)
[2018-04-13 05:39] LABS: Baso % (Auto) 0.1 % (0.0-2.0); Eos % (Auto) 0.2 % (0.0-4.0); Hematocrit 29.7 % (39.0-51.0); Hemoglobin 9.5 gm/dL (13.0-17.0); Lymph # (Auto) 0.1 th/mm3 (1.0-4.8); Lymph % (Auto) 1.2 % (9.0-44.0); Mean Corpuscular HGB Conc 32.1 % (32.0-36.0); Mean Corpuscular Hemoglobin 25.2 pg (27.0-34.0); Mean Corpuscular Volume 78.4 fL (80.0-100.0); Mono # (Auto) 0.6 th/mm3 (0.0-0.9); Mono % (Auto) 10.9 % (0.0-8.0); Neut # (Auto) 5.1 th/mm3 (1.8-7.7); Neut % (Auto) 87.6 % (16.0-70.0); Platelet Count 122 th/mm3 (150-450); Red Blood Count 3.79 mil/mm3 (4.50-5.90); Red Cell Distribution Width 19.6 % (11.6-17.2); White Blood Count 5.8 th/mm3 (4.0-11.0)
[2018-04-13 06:11] LABS: Anion Gap 10 meq/L (5-15); Aspartate Aminotransferase 50 U/L (15-37); Blood Urea Nitrogen 10 mg/dL (7-18); Calcium 8.6 mg/dL (8.5-10.1); Carbon Dioxide 29.3 meq/L (21.0-32.0); Chloride 92 meq/L (98-107); Glomerular Filtration Rate 89 mL/min (>89); Glucose,Random 103 mg/dL (74-106); Potassium 3.7 meq/L (3.5-5.1); Sodium 131 meq/L (136-145)
[2018-04-13 06:13] LABS: Alanine Aminotransferase 37 U/L (12-78)
[2018-04-13 06:16] LABS: Alkaline Phosphatase 197 U/L (45-117); Total Protein 6.1 g/dL (6.4-8.2)
[2018-04-13] MEDS: Voriconazole 200 MG Tablet PO SCH (08:42)
[2018-04-13] MEDS: levoFLOXacin 500 MG Tablet PO SCH (08:42)
[2018-04-13] MEDS: Senna/Docusate Sodium 8.6/50 MG Tablet PO SCH (08:42)
[2018-04-13] MEDS: predniSONE 5 MG Tablet PO SCH (08:49)
--- NOTE | 2018-04-13 10:55 | CT ---
EXAM DATE: 04/13/2018 10:37 AM EST AGE/SEX: 43 years / Male INDICATIONS: Shortness of breath. CLINICAL DATA: This is the patient's initial encounter. Patient reports that signs and symptoms have been present for 1 day and indicates a pain score of 0/10. MEDICAL/SURGICAL HISTORY: Lymphoma. . thoracentesis RADIATION DOSE: 16.44 CTDI (mGy) COMPARISON: [facility], CT CHEST W/O CONTRAST, 10/23/2017. . TECHNIQUE: Multiple contiguous axial images were obtained through the chest without contrast. Image s were obtained in suspended respiration using multiple row detector helical technique. Using automa edmund exposure control and adjustment of the mA and/or kV according to patient size, radiation dose was kept as low as reasonably achievable to obtain optimal diagnostic quality images. DICOM format imag e data is available electronically for review and comparison. FINDINGS: Lungs: There is total collapse and increased density seen throughout the right lung. On the prior ex am there was chronic appearing parenchymal disease but some aeration with still present. Significant aeration in the right lung is no longer seen. There is a lungs suture line seen in the anterior right midlung. There is a large right pleural effusion. There is thickening of the pleura posteriorly. The re is some increased density at the medial left upper lung. Mediastinum: There is moderate pericardial effusion measuring up to 1.6 cm. There is adenopathy seen throughout the mediastinum including in the superior mediastinum, in the left upper mediastinum betw een the left subclavian and left carotid artery, right paratracheal, precarinal, subcarinal regions. Pleurae: Again noted is the large right pleural effusion with some thickening of the right pleura po steriorly measuring up to 1.3 cm. Axillae: Unremarkable. Bony Structures: Unremarkable. Miscellaneous: The examination was extended to include the upper abdomen, and both adrenal glands ar e normal in size and configuration. There appear to be enlarged lymph nodes in the superior aspect of the retroperitoneum. CONCLUSION: 1. Progression of right lung disease with total opacification of the right lung. The patient had alysia e right lung surgery. 2. Large right pleural effusion with some pleural thickening on the right side. 3. Significant adenopathy seen throughout the mediastinum and the upper retroperitoneum. This findin g is new. 4. Moderate pericardial effusion. This appears new. Electronically signed by: Bienvenido Lockett MD 04/13/2018 10:54 AM EST
--- NOTE | 2018-04-13 12:15 | P.PNONC ---
Subjective Interval history: T-max 102.8 F. Patient awake and alert, in no acute distress. He is angry and states that he wants to go home. He does not feel that he needs to stay in the hospital for a fever, and blames the nurse for his fever. He reports improved breathing after thoracentesis. Discussed CT scan and will further discuss with Dr. Sánchez. He denies any other symptoms, no N/V/D. No abdominal pain. Objective Vital Signs/Intake & Output: Vital Signs 04/12/18 13:56 04/12/18 14:57 04/12/18 15:33 Temperature 98.5 F 98.3 F 99.9 F H Pulse Rate 129 H 124 H Respiratory Rate 18 18 Blood Pressure 151/91 H 162/91 H Pulse Oximetry 96 96 04/12/18 16:00 04/12/18 16:01 04/12/18 17:11 Temperature 100.8 F H 101.6 F H Pulse Rate 130 H 131 H Respiratory Rate 24 Blood Pressure 137/96 H Pulse Oximetry 92 L 04/12/18 17:51 04/12/18 20:00 04/12/18 23:00 Temperature 99.5 F Pulse Rate 118 H 124 H 118 H Respiratory Rate 22 20 Blood Pressure 137/100 H Pulse Oximetry 92 L 04/12/18 23:43 04/13/18 01:15 04/13/18 02:30 Temperature 99.4 F 102.8 F H Pulse Rate 122 H 123 H 128 H Respiratory Rate 20 28 H 20 Blood Pressure 127/83 125/87 Pulse Oximetry 93 L 97 04/13/18 03:00 04/13/18 03:33 04/13/18 05:24 Temperature 99.8 F H 98.7 F Pulse Rate 130 H Respiratory Rate Blood Pressure Pulse Oximetry 04/13/18 07:29 04/13/18 09:37 04/13/18 11:00 Temperature 98.5 F Pulse Rate 120 H 120 H 128 H Respiratory Rate 18 22 Blood Pressure 130/86 Pulse Oximetry 93 L Intake & Output 04/12/18 04/13/18 04/13/18 18:59 06:59 18:59 Intake Total 2500 / 2500 480 / 480 Output Total 200 / 200 300 / 300 Balance 2300 / 2300 180 / 180 Weight 90.5 kg Intake: Oral 2500 / 2500 480 / 480 Output: Urine 200 / 200 300 / 300 Other: # Voids 2 1 Date of Last Bowel Movement 04/11/18 04/11/18 04/13/18 Result Diagrams: 04/13/18 05:24 04/13/18 05:24 Laboratory Results: Laboratory Results - last 24 hr 04/12/18 04/13/18 04/13/18 21:10 05:24 05:24 WBC 5.8 RBC 3.79 L Hgb 9.5 L Hct 29.7 L MCV 78.4 L MCH 25.2 L MCHC 32.1 RDW 19.6 H Plt Count 122 L MPV 8.0 Neut % (Auto) 87.6 H Lymph % (Auto) 1.2 L [place] % (Auto) 10.9 H Eos % (Auto) 0.2 Baso % (Auto) 0.1 Neut # (Auto) 5.1 Lymph # (Auto) 0.1 L [place] # (Auto) 0.6 Eos # (Auto) 0.0 Baso # (Auto) 0.0 WBC Differential . Differential Comment Auto diff final Sodium 131 L Potassium 3.7 Chloride 92 L Carbon Dioxide 29.3 Anion Gap 10 BUN 10 Creatinine 0.93 Estimated GFR 89 Random Glucose 103 Calcium 8.6 Total Bilirubin 0.5 AST 50 H ALT 37 Alkaline Phosphatase 197 H Total Protein 6.1 L Albumin 2.0 L Urine Color [place] Urine Clarity Cloudy H Urine pH 5.0 Ur Specific [place] 1.027 Urine Protein 100 H Urine Glucose (UA) Negative Urine Ketones Negative Urine Occult Blood Negative Urine Nitrate Negative Urine Bilirubin Negative Urine Urobilinogen 2.0 H Ur Leukocyte Esterase Negative Urine RBC 2 Urine WBC 13 H Ur Squamous Epith Cells 1 Amorphous Sediment Rare H Urine Bacteria Rare H Hyaline Casts 9 Urine Mucus Few H Ur Microscopic Review Not Reportable Culture Results: Microbiology 04/12/18 19:25 Aerobic Blood Culture - Preliminary Blood - Other No growth in 1 day Anaerobic Blood Culture - Preliminary No growth in 1 day 04/12/18 19:25 Aerobic Blood Culture - Preliminary Blood - Other No growth in 1 day Anaerobic Blood Culture - Preliminary No growth in 1 day Imaging Studies: Impressions Chest X-Ray 04/12/18 00:00 CONCLUSION: 1. Persistent opacification of the right hemithorax following thoracentesis without pneumothorax. Thoracentesis Ultrasound 04/12/18 00:00 CONCLUSION: 1. Uncomplicated thoracentesis. Chest CT 04/13/18 07:00 CONCLUSION: 1. Progression of right lung disease with total opacification of the right lung. The patient had some right lung surgery. 2. Large right pleural effusion with some pleural thickening on the right side. 3. Significant adenopathy seen throughout the mediastinum and the upper retroperitoneum. This finding is new. 4. Moderate pericardial effusion. This appears new. Medications: Active Medications Generic Name Dose Route Start Last Admin Trade Name Freq PRN Reason Stop Dose Admin Acetaminophen 650 mg 04/12/18 05:32 04/12/18 17:18 Tylenol PO 650 mg Q4H PRN Administration Temp > 100.4 Albuterol 1 ampul 04/12/18 05:32 04/13/18 09:37 Duoneb Neb (Prn) NEB 1 ampul Q2HR NEB PRN Administration wheezing/SOB Ibuprofen 400 mg 04/12/18 09:57 04/13/18 02:25 Motrin PO 400 mg Q6HR PRN Administration PAIN SCALE 1 TO 2 Levofloxacin 500 mg 04/12/18 20:15 04/13/18 08:42 Levaquin PO 500 mg DAILY BANDAR Administration Lorazepam 0.5 mg 04/12/18 16:55 04/12/18 17:13 Ativan PO 0.5 mg Q6H PRN Administration ANXIETY Morphine Sulfate 30 mg 04/12/18 05:32 04/12/18 08:15 Msir PO 30 mg BID PRN Administration PAIN SCALE 1 TO 10 Morphine Sulfate 6 mg 04/12/18 16:53 04/13/18 08:42 Morphine Inj IV.PUSH 6 mg Q3H PRN Administration PAIN 6-10,IF UNABLE TO TAKE PO Pantoprazole Sodium 40 mg 04/13/18 09:00 04/13/18 08:42 Protonix PO 40 mg DAILY BANDAR Administration Prednisone 5 mg 04/12/18 09:00 04/13/18 08:49 Deltasone PO 5 mg DAILY BANDAR Administration Senna/Docusate Sodium 1 tab 04/12/18 09:00 04/13/18 08:42 Naa-Colace PO 1 tab BID BANDAR Administration Voriconazole 100 mg 04/12/18 09:00 04/13/18 08:42 Vfend PO 100 mg DAILY BANDAR Administration Objective Remarks: GENERAL: Chronically ill-appearing male patient, in no acute distress SKIN: Warm and dry. HEAD: Normocephalic. EYES: No scleral icterus. No injection or drainage. NECK: Supple, trachea midline. CARDIOVASCULAR: Regular rate and rhythm without murmurs. RESPIRATORY: Absent breath sounds on right. + accessory muscle use. GASTROINTESTINAL: Abdomen soft, non-tender, nondistended. EXTREMITIES: No cyanosis, or edema. MUSCULOSKELETAL: Adequate muscle tone. NEUROLOGICAL: No obvious focal deficit. Awake, alert, and oriented x3. PSYCHIATRIC: Angry. 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 Recommendations: 1. Recurrent T-cell lymphoblastic lymphoma with progressive disease. Failed CHOP and ICE and received gemcitabine and oxaliplatin 10 days ago. 2. Large right pleural effusion, status post thoracentesis with 900 mL removed on 04/12/2018. CT chest today shows total collapse and increased density seen throughout the right lung. --Progression of right lung disease with total opacification of the right lung. The patient had some right lung surgery.-- Large right pleural effusion with some pleural thickening on the right side.-- Significant adenopathy seen throughout the mediastinum and the upper retroperitoneum. This finding is new.--- Moderate pericardial effusion. This appears new. 3. Fever, T-max 102.8. Blood cultures no growth times 1 day, currently on p.o. Levaquin. 4. Patient angry and eager to be discharged today. Will discuss further with Dr. Sánchez. - Attending Statement The exam, history, and the medical decision-making described in the above note were completed with the assistance of the mid-level provider. I reviewed and agree with the findings presented. I attest that I had a [id number] encounter with the patient on the same day, and personally performed and documented my assessment and findings in the medical record. CT of thorax reviewed and discussed with the patient, , sister, brother-in- law and at the request of the patient the children were in the room. He has a huge right pleural effusion. The right lung is compressed. He has adenopathy and a pericardial effusion. The right lung is essentially nonfunctioning. I advised him to stay in the hospital and have an evaluation by the cardiothoracic surgeons to see if there is any possibility of draining the fluid and expanding the lung. He does not want to do this. He indicates that he will go home. He does not want to anger the doctors, nurses or staff but he needs to go home. We discussed his elevated temperature. I suspect this is due to the lymphoma but I cannot rule out a fever from an infection. Cultures to date are negative. He tells me if he is home he would not have a fever. I told him that this is not the case. He broke down and cried. He knows that he is unlikely to survive for any length of time. Unfortunately he is probably correct and that the likelihood of a meaningful response to third line regimen is small. He did have an excellent response to ICE but relapsed after about 10 weeks. One could consider revisiting ICE but this decision will not rest with me and unfortunately there may be little that can be done to effectively treat his disease. I will send him home with Angel. I will contact Dr. Leigh his oncologist this evening and appraise her of the situation as if he undergoes treatment it will need to be initiated quickly. Again the patient is very clear about not wanting to stay and see a cardiothoracic surgeon. He does not want to stay for treatment of the elevated fever. He does not want to stay for evaluation of the pericardial effusion. He understandably wants to be home with his family even if there is an increased risk of .
--- NOTE | 2018-04-13 12:48 | P.PN ---
Subjective Interval history: Follow-up T-cell lymphoma/right large pleural effusion/now febrile episode April 13, 2018-patient seen and examined, T-max 102.8. Patient would like to be discharged and very upset if he had to stay here 1 more day. Denies any significant shortness of breath. Physical Exam Vital signs: Vital Signs 04/12/18 13:56 04/12/18 14:57 04/12/18 15:33 Temperature 98.5 F 98.3 F 99.9 F H Pulse Rate 129 H 124 H Respiratory Rate 18 18 Blood Pressure 151/91 H 162/91 H Pulse Oximetry 96 96 04/12/18 16:00 04/12/18 16:01 04/12/18 17:11 Temperature 100.8 F H 101.6 F H Pulse Rate 130 H 131 H Respiratory Rate 24 Blood Pressure 137/96 H Pulse Oximetry 92 L 04/12/18 17:51 04/12/18 20:00 04/12/18 23:00 Temperature 99.5 F Pulse Rate 118 H 124 H 118 H Respiratory Rate 22 20 Blood Pressure 137/100 H Pulse Oximetry 92 L 04/12/18 23:43 04/13/18 01:15 04/13/18 02:30 Temperature 99.4 F 102.8 F H Pulse Rate 122 H 123 H 128 H Respiratory Rate 20 28 H 20 Blood Pressure 127/83 125/87 Pulse Oximetry 93 L 97 04/13/18 03:00 04/13/18 03:33 04/13/18 05:24 Temperature 99.8 F H 98.7 F Pulse Rate 130 H Respiratory Rate Blood Pressure Pulse Oximetry 04/13/18 07:29 04/13/18 09:37 04/13/18 11:00 Temperature 98.5 F Pulse Rate 120 H 120 H 128 H Respiratory Rate 18 22 Blood Pressure 130/86 Pulse Oximetry 93 L 04/13/18 12:03 Temperature 99.3 F Pulse Rate 121 H Respiratory Rate 20 Blood Pressure 121/87 Pulse Oximetry 95 Intake & Output 04/12/18 04/13/18 04/13/18 18:59 06:59 18:59 Intake Total 2500 / 2500 480 / 480 Output Total 200 / 200 300 / 300 Balance 2300 / 2300 180 / 180 Weight 90.5 kg Intake: Oral 2500 / 2500 480 / 480 Output: Urine 200 / 200 300 / 300 Other: # Voids 2 1 Date of Last Bowel Movement 04/11/18 04/11/18 04/13/18 Narrative: GENERAL: NAD and upset this AM SKIN: Warm and dry. HEAD: Atraumatic. Normocephalic. EYES: Pupils equal and round. No scleral icterus. No injection or drainage. ENT: No nasal bleeding or discharge. Mucous membranes pink and moist. NECK: Trachea midline. No JVD. CARDIOVASCULAR: Regular rate and rhythm. RESPIRATORY: No accessory muscle use. Decrease breath sounds in R>L GASTROINTESTINAL: Abdomen soft, non-tender, nondistended. Hepatic and splenic margins not palpable. MUSCULOSKELETAL: Extremities without clubbing, cyanosis, or edema. No obvious deformities. NEUROLOGICAL: Awake and alert. No obvious cranial nerve deficits. Motor grossly within normal limits. Five out of 5 muscle strength in the arms and legs. Normal speech. PSYCHIATRIC: Appropriate mood and affect; insight and judgment normal. Results - Labs CBC & Chem 7: 04/13/18 05:24 04/13/18 05:24 Laboratory Results - last 24 hr 04/12/18 04/13/18 04/13/18 21:10 05:24 05:24 WBC 5.8 RBC 3.79 L Hgb 9.5 L Hct 29.7 L MCV 78.4 L MCH 25.2 L MCHC 32.1 RDW 19.6 H Plt Count 122 L MPV 8.0 Neut % (Auto) 87.6 H Lymph % (Auto) 1.2 L [place] % (Auto) 10.9 H Eos % (Auto) 0.2 Baso % (Auto) 0.1 Neut # (Auto) 5.1 Lymph # (Auto) 0.1 L [place] # (Auto) 0.6 Eos # (Auto) 0.0 Baso # (Auto) 0.0 WBC Differential . Differential Comment Auto diff final Sodium 131 L Potassium 3.7 Chloride 92 L Carbon Dioxide 29.3 Anion Gap 10 BUN 10 Creatinine 0.93 Estimated GFR 89 Random Glucose 103 Calcium 8.6 Total Bilirubin 0.5 AST 50 H ALT 37 Alkaline Phosphatase 197 H Total Protein 6.1 L Albumin 2.0 L Urine Color [place] Urine Clarity Cloudy H Urine pH 5.0 Ur Specific [place] 1.027 Urine Protein 100 H Urine Glucose (UA) Negative Urine Ketones Negative Urine Occult Blood Negative Urine Nitrate Negative Urine Bilirubin Negative Urine Urobilinogen 2.0 H Ur Leukocyte Esterase Negative Urine RBC 2 Urine WBC 13 H Ur Squamous Epith Cells 1 Amorphous Sediment Rare H Urine Bacteria Rare H Hyaline Casts 9 Urine Mucus Few H Ur Microscopic Review Not Reportable Microbiology 04/12/18 19:25 Blood - Other Aerobic Blood Culture - Preliminary No growth in 1 day 04/12/18 19:25 Blood - Other Anaerobic Blood Culture - Preliminary No growth in 1 day 04/12/18 19:25 Blood - Other Aerobic Blood Culture - Preliminary No growth in 1 day 04/12/18 19:25 Blood - Other Anaerobic Blood Culture - Preliminary No growth in 1 day - Imaging Impressions Chest X-Ray 04/12/18 00:00 CONCLUSION: 1. Persistent opacification of the right hemithorax following thoracentesis without pneumothorax. Thoracentesis Ultrasound 04/12/18 00:00 CONCLUSION: 1. Uncomplicated thoracentesis. Chest CT 04/13/18 07:00 CONCLUSION: 1. Progression of right lung disease with total opacification of the right lung. The patient had some right lung surgery. 2. Large right pleural effusion with some pleural thickening on the right side. 3. Significant adenopathy seen throughout the mediastinum and the upper retroperitoneum. This finding is new. 4. Moderate pericardial effusion. This appears new. Assessment and Plan - Plan 43-year-old man with History of T-cell lymphoma status post radiation and chemotherapy Management per oncology Febrile episode Currently on Levaquin pending culture report. Patient may need IV antibiotic therapy I discussed with patient regarding his febrile episodes and stated that he may need further therapy prior to discharge Recurrent malignant pleural effusion s/p right-sided ultrasound-guided thoracentesis-therapeutic 04/12/18... 900 cc fluid removed Moderate pericardial effusion CTA chest finding May need evaluation from CTS vs Cardiology Hypokalemia Replace electrolytes and monitor Other chronic medical conditions Continue outpatient medications
--- NOTE | 2018-04-13 15:14 | P.PNADD ---
Addendum to Inpatient Note Reason for Addendum: Additional Documentation Additional information: Patient has been cleared from Oncology for discharged Discharge patient to home Condition on discharge: Fair Regular Diet as tolerated Ad Darby activity Rx written: see EMR Follow-up with primary care physician in 1 week
== END 2018-04-13 15:35 | disposition home or self-care (01) ==
LOC: NEPE 03:55 → INTOOBSV 05:32 → NEDA 05:44 → HCIN 09:01 → NEDA 09:15
PROVIDERS: ADMIT Hospitalist; ATTEND Hospitalist

== ENCOUNTER 2018-04-15 07:00 | Inpatient (IN) ==
--- NOTE | 2018-04-15 09:50 | US ---
EXAM DATE: 04/15/2018 9:31 AM EST AGE/SEX: 43 years / Male INDICATIONS: Short of breath. CLINICAL DATA: This is the patient's subsequent encounter. Patient reports that signs and symptoms h ave been present for 1 month and indicates a pain score of 2/10. MEDICAL/SURGICAL HISTORY: . Compression of intervertebral disc. Chemotherapy. Blood clots. 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 . Thoracentesis. COMPARISON: [facility] – [place], CT CHEST W/O CONTRAST, 04/13/2018. . MEASUREMENTS: Skin To Parietal Pleura:__- cm Skin To Max Safe Depth:__- cm Estimated Fluid Volume:__415.7 cc Fluid Composition:__complex FINDINGS: Pleural effusion as above. CONCLUSION: Moderate volume of markedly complex fluid/debris in the right chest pleural space. This collection is not appropriate for simple thoracentesis Electronically signed by: Bienvenido Bear MD 04/15/2018 9:49 AM EST
[2018-04-15] MEDS: LORazepam 0.5 MG Tablet PO PRN (10:02)
[2018-04-15] MEDS: Morphine Sulfate Inj 8 MG/ML Vial IV.PUSH PRN ×3 (10:02→16:56)
[2018-04-15 10:15] LABS: Baso % (Auto) 0.3 % (0.0-2.0); Eos % (Auto) 0.3 % (0.0-4.0); Hematocrit 33.1 % (39.0-51.0); Hemoglobin 10.5 gm/dL (13.0-17.0); Lymph # (Auto) 0.2 th/mm3 (1.0-4.8); Mean Corpuscular HGB Conc 31.8 % (32.0-36.0); Mean Corpuscular Hemoglobin 25.3 pg (27.0-34.0); Mean Corpuscular Volume 79.7 fL (80.0-100.0); Mean Platelet Volume 8.1 fL (7.0-11.0); Mono # (Auto) 1.4 th/mm3 (0.0-0.9); Neut # (Auto) 7.8 th/mm3 (1.8-7.7); Neut % (Auto) 82.4 % (16.0-70.0); Platelet Count 202 th/mm3 (150-450); Red Blood Count 4.15 mil/mm3 (4.50-5.90); Red Cell Distribution Width 19.7 % (11.6-17.2); White Blood Count 9.5 th/mm3 (4.0-11.0)
[2018-04-15 10:37] LABS: Alanine Aminotransferase 46 U/L (12-78); Anion Gap 10 meq/L (5-15); Aspartate Aminotransferase 54 U/L (15-37); Blood Urea Nitrogen 21 mg/dL (7-18); Calcium 9.3 mg/dL (8.5-10.1); Carbon Dioxide 25.4 meq/L (21.0-32.0); Chloride 96 meq/L (98-107); Glomerular Filtration Rate 67 mL/min (>89); Glucose,Random 97 mg/dL (74-106); Potassium 4.2 meq/L (3.5-5.1); Sodium 131 meq/L (136-145)
[2018-04-15 10:44] LABS: Alkaline Phosphatase 229 U/L (45-117); Total Protein 6.5 g/dL (6.4-8.2)
[2018-04-15] MEDS ORDERED: Ibuprofen 600 MG Tablet PO PRN (10:53)
[2018-04-15] MEDS: predniSONE 5 MG Tablet PO SCH (12:16)
[2018-04-15] MEDS: levoFLOXacin 500 MG Tablet PO SCH (12:16)
[2018-04-15] MEDS: Dexamethasone Inj 20 MG, Granisetron Inj 1 MG in Sodium Chlor 0.9% Inj 50 ML IV.SIG SCH ×2 (13:35)
[2018-04-15] MEDS ORDERED: Methylene Blue Inj 100 MG/10 ML Vial IV.PUSH PRN (13:52)
[2018-04-15] MEDS: ETOPOSIDE IV.SIG SCH (14:09)
[2018-04-15] MEDS: SODIUM CHLOR 0.9% IV.SIG SCH (14:09)
[2018-04-15] MEDS: Sod Chloride 0.9% Inj 1,000 ML IV.SIG SCH (15:57)
[2018-04-15] MEDS ORDERED: Chlorhexidine 4% Topical 120 APPLIC/120 ML Bottle TOPICAL SCH (17:15)
[2018-04-15] MEDS ORDERED: Sodium Chloride 0.9% Irr Bot 500 ML, ceFAZolin Inj 500 MG IRRIGATION SCH ×2 (17:15)
--- NOTE | 2018-04-15 17:30 | MB ---
cc: Rin Farah APRN DATE: 04/15/2018 HISTORY OF PRESENT ILLNESS: A 43-year-old male known to our service in the past, who underwent right video-assisted thoracoscopy, right upper lobe biopsy 09/16/2017. Diagnosis with T-cell lymphoblastic lymphoma progressive disease, recurrent pleural effusions. Since the right VATS, he has had approximately 5 thoracenteses. His last was a couple days ago. He was able to go home after he came into the emergency department. He was readmitted this morning with severe shortness of breath, also, pleuritic pain. When he leans forward and lies back. He has paroxysmal nocturnal dyspnea. He also has some orthopnea. We were consulted to reevaluate for repeat thoracic surgery regarding the right large pleural effusion. He underwent ultrasound of the chest which showed estimated fluid about 400, fluid being very complex fluid and with debris. PAST MEDICAL HISTORY: Recent diagnosis of T-cell lymphoblastic lymphoma. He has been to [facility] and has been worked up for possible bone marrow transplant. He is currently on ICE chemotherapy, but unfortunately, he did relapse with the right large pleural effusion. He is being followed closely by Dr. Leigh for chemotherapy and treatment. The patient did recently have the thoracentesis on 04/12/2018 three days ago where they drained 900 mL of fluid, which helped improve his breathing. PAST SURGICAL HISTORY: CT-guided biopsy mediastinal mass, right video-assisted thoracoscopy multiple thoracenteses. The patient also has failed CHOP in the past, currently receiving ICE. ALLERGIES: NO KNOWN ALLERGIES. HOME MEDICATIONS: Include: 1. Morphine. 2. Albuterol. 3. Prednisone. 4. Vfend. 5. Xarelto. FAMILY HISTORY: Noncontributory. SOCIAL HISTORY: The patient is . No tobacco or alcohol. REVIEW OF SYSTEMS: Positive for weakness, fatigue, shortness of breath, pleuritic chest discomfort. PHYSICAL EXAMINATION: GENERAL: This is a somewhat ill-appearing male, very anxious, short of breath. Talks in short sentences. VITAL SIGNS: Respiratory rate is approximately 28, heart rate of 110, blood pressure currently stable. Also, presented with low-grade temperature. GENERAL: Awake, alert. HEENT: Head is normocephalic, atraumatic. Pupils equal and reactive. Oral mucosa pink, moist. NECK: Supple. Mild JVD. HEART: Heart sounds S1, S2. Positive for tachycardia. LUNGS: Very diminished in the right lower lobe and mid lobe. He has got inspiratory and expiratory wheezing, some use of his accessory muscles. ABDOMEN: Soft, nontender. No masses or organomegaly. EXTREMITIES: No cyanosis, clubbing or edema. He does have an [id number] in the right upper chest wall. IMPRESSION: Unfortunate gentleman with T-cell lymphoblastic lymphoma, on chemotherapy. He is currently being worked up for bone marrow transplant at [facility]. In the meantime, he has had recurrent pleural effusions, has been drained 5 times since the right VATS, right upper lobe biopsy 09/16/2017. At this time, the films will be evaluated by Dr. Yong Frey, and evaluated for possible redo right video-assisted thoracoscopy, drainage of pleural fluid, possible decortication and a possible placement of PleurX catheter. KELSEY Byrd MD JRT/ct , 04:48 PM , 04:57 PM
[2018-04-15] MEDS ORDERED: ceFAZolin 2 GM Premix Inj 2 GM/50 ML PIGGYBACK IV.SIG SCH (17:54)
[2018-04-15] MEDS ORDERED: Aluminum/Magnesium/Simethacone Susp 30 ML UDC PO PRN (18:00)
[2018-04-15] MEDS ORDERED: Cathflo Activase Inj 2 MG Vial I-CATHETER PRN (18:00)
[2018-04-15] MEDS ORDERED: Ibuprofen 400 MG Tablet PO PRN (18:02)
--- NOTE | 2018-04-15 18:38 | MH ---
cc: Aysha Leigh MD DATE OF ADMISSION: 04/15/2018 ADMISSION DIAGNOSIS: Recurrent T-cell lymphoblastic lymphoma. SECONDARY DIAGNOSES: 1. Recurrent pleural effusion. 2. Chemotherapy-induced anemia. 3. Chronic pain. 4. Anxiety. 5. Asthma. 6. Malignant pleural effusion. HISTORY OF PRESENT ILLNESS: Mr. Turner is a 43-year-old man with history of T-cell lymphoblastic lymphoma, who was treated with five cycles of R-CHOP chemotherapy complicated by right lung infiltrate and right lung pneumonitis. He was referred to [facility] for bone marrow transplant after first remission. He developed progressive disease while waiting for transplant evaluation. He was treated with salvage chemotherapy with ICE for 3 cycles. He was again referred to [facility] to initiate transplant. He was able to have stem cell collection. However, the delay of 10 weeks after his last chemotherapy to the start of his bone marrow transplant lead to progression. He had cytology from the pleural fluid confirm recurrence of his T-cell lymphoblastic lymphoma, which was CD30 negative. He was treated with third line chemotherapy with oxaliplatin and gemcitabine. On his last consultation 04/02/2018, we discussed the risks and benefit of his chemotherapy regimen. This was confirmed with his consulting lymphoma specialist, Dr. Garcia at [facility]. He tolerated his treatment well. He had another thoracentesis for symptomatic relief on the day of his chemotherapy. His course has worsened to have recurrent shortness of breath and pleural effusion. He was admitted to the hospital on 04/12/2018 and discharged on 04/13/2018 with malignant pleural effusion, respiratory distress. He is readmitted today, 04/15/2018, with plans to initiate salvage chemotherapy with ICE. Mr. Turner is accompanied by a family member at bedside. He describes gurgling in his chest. His previous CT scan from 04/13/2018 showed progression of the lung disease with total opacification of the right lung. There is right-sided pleural effusion, which was large. There is significant adenopathy throughout the mediastinum in the upper retroperitoneum, which is new. There is moderate right pericardial effusion, which is new. Furthermore, he develops fevers. His microbiology labs from 04/12/2018 were negative. He feels that his fevers are associated with his lymphoma again. He is ready to start his ICE chemotherapy to alleviate his symptoms. PAST MEDICAL HISTORY: Recurrent T-cell lymphoma, asthma, malignant pleural effusion, pericardial effusion, chronic anemia, chronic pain. 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 PAST SURGICAL HISTORY: Mediastinal mass biopsy, thoracentesis, pleurodesis, port placement. 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 ALLERGIES: NO KNOWN DRUG ALLERGIES. MEDICATIONS: 1. Vfend. 2. Xarelto 3. Prednisone. 4. Morphine sulfate. 5. Duoneb. FAMILY HISTORY: No significant family history of cancer. SOCIAL HISTORY: He is , lives with his and 2 daughters. He denies any tobacco, alcohol or illicit drug use. ALLERGIES: NO KNOWN DRUG ALLERGIES. PHYSICAL EXAMINATION: VITAL SIGNS: Temperature 98.7, heart rate 119, respiratory rate 24, blood pressure 129/86, saturation 97%. GENERAL: Mr. Turner is a well-developed, well-nourished man who looks his stated age. HEENT: His pupils are round, reactive to light and accommodation. He has hanley facies. His oropharynx is clear, no thrush. NECK: Supple. Right chest wall triple lumen is in place. LUNGS: Diminished breath sounds throughout the right lung field with dullness to percussion. CARDIOVASCULAR: Reveals a tachycardia. ABDOMEN: Large and benign. Mildly distended. LOWER EXTREMITIES: No edema. NEUROLOGIC: Nonfocal. LABORATORY DATA: Significant for microcytic anemia with hemoglobin of 10.5, MCV 79.7, platelet count of 202, white blood cell count of 9.5, ANC 7800. PTT mildly prolonged. Chemistry with BUN 21, creatinine 1.19, sodium 131, alkaline phosphatase is elevated at 29. ASSESSMENT AND PLAN: Mr. Turner is a 43-year-old man with recurrent T-cell lymphoblastic lymphoma. His course is complicated by left upper extremity deep vein thromboses, superior vena cava syndrome. He has had recurrent right-sided malignant pleural effusion as well as a severe right lung pneumonitis. He is admitted for his next cycle of palliative chemotherapy with ICE. He has had this chemotherapy before. We discussed the risks and benefit of palliative therapy with ice to alleviate his symptoms. He has had progressive disease and clearly no response to oxaliplatin and gemcitabine. He has had fevers which may be associated with the gemcitabine. However, he has known response to ICE before and is optimistic that he will feel better. Blood cultures will be obtained. Initial blood cultures from 04/12/2018 are still negative. We will monitor for fevers. We suspect the fever is related to his lymphoma. This was his previous presentation. We will defer to cardiothoracic surgery if there is any intervention that may be possible to alleviate the symptoms related to the right lung. Cytology from the right lung will be sent. Cultures will be sent. No transfusion is needed at present. He has a microcytic anemia. His Xarelto will be placed on hold pending procedures. We will limit the use at present of ibuprofen. His steroid maintenance continues. His pain medication is addressed. We will monitor his renal function. No specific therapy is required for the mild hyponatremia. He appears to be euvolemic. His questions were answered to his satisfaction. Anticipate discharge after his completion of chemotherapy. MD ANURAG Viera/adithya , 05:59 PM , 06:16 PM
[2018-04-15 19:24] LABS: INR 1.2 Ratio; Prothrombin Time 11.8 sec (9.8-11.6)
[2018-04-15] MEDS: Pantoprazole Sodium 20 MG DR Tablet PO SCH (20:00)
[2018-04-15] MEDS: Morphine Inj 4 MG/ML Vial IV.PUSH PRN (20:00)
[2018-04-15] MEDS ORDERED: Temazepam 15 MG Capsule PO PRN (21:00)
[2018-04-15 23:34] LABS: Amorphous Sediment,Urine Few /hpf; Bilirubin,Urine Negative (Negative); Clarity,Urine Turbid (Clear); Color,Urine Yellow (Yellw/Straw); Glucose,Urine (UA) Negative (Negative); Hyaline Casts,Urine 13 /lpf (0-3); Leukocyte Esterase,Urine Negative (Negative); Nitrite,Urine Negative (Negative); Specific Gravity,Urine 1.015 (1.002-1.035)
[2018-04-16] MEDS: Morphine Inj 4 MG/ML Vial IV.PUSH PRN ×6 (00:07→23:41)
[2018-04-16] MEDS: LORazepam 0.5 MG Tablet PO PRN ×2 (00:26→08:04)
[2018-04-16] MEDS ORDERED: Chlorhexidine Gluconate 2% 1 Pack (2 Cloths) TOPICAL PRN (04:00)
[2018-04-16] MEDS: Chlorhexidine Gluconate 2% 1 Pack (2 Cloths) TOPICAL SCH (04:09)
[2018-04-16] MEDS: levoFLOXacin 500 MG Tablet PO SCH (08:04)
[2018-04-16] MEDS: Pantoprazole Sodium 20 MG DR Tablet PO SCH (08:04)
[2018-04-16] MEDS: predniSONE 5 MG Tablet PO SCH (08:04)
--- NOTE | 2018-04-16 12:31 | ECG ---
Date Performed: 04/16/2018 Time Performed: 10:35:37 PTAGE: 43 years EKG: SINUS TACHYCARDIA WITH SHORT NH INTERVAL POSSIBLE RIGHT VENTRICULAR CONDUCTION DELAY ABNORM AL RHYTHM ECG PREVIOUS TRACING : 04/08/2018 11.30 DOCTOR: Nathan Vegas Interpretating Date/Time 04/16/2018 12:30:10
[2018-04-16] MEDS ORDERED: SODIUM CHLOR 0.9% IV.SIG ONE (14:30)
[2018-04-16] MEDS ORDERED: CARBOPLATIN IV.SIG ONE (14:30)
[2018-04-16] MEDS ORDERED: Bupivacaine PF 0.5% Inj 10 ML Vial ONE (14:44)
[2018-04-16] MEDS ORDERED: IFOSFAMIDE IV.SIG SCH (15:00)
[2018-04-16] MEDS ORDERED: MESNA IV.SIG SCH (15:00)
[2018-04-16] MEDS ORDERED: SOD CHLORIDE 0.9% IV.SIG SCH (15:00)
--- NOTE | 2018-04-16 15:13 | P.PNONC ---
Subjective Interval history: Patient sitting up in bed, awake but lethargic. Patient was transferred to the unit last night for increasing stridor and the need for racemic epi. He reports continued difficulty breathing, awaiting possible redo right video- assisted thoracoscopy, drainage of pleural fluid and possible decortication and possible placement of Pleurx catheter today with Dr. Frey. His breathing seems calmer today than yesterday, no stridor and decreased wheezing. He reports he just received a breathing treatment. His is at the bedside. Planning for day 2 chemo after procedure today. Objective Vital Signs/Intake & Output: Vital Signs 04/15/18 15:27 04/15/18 19:58 04/15/18 20:00 Temperature 98.7 F 98.4 F Pulse Rate 119 H 111 H 116 H Respiratory Rate 24 20 Blood Pressure 129/86 143/94 H Pulse Oximetry 97 99 04/15/18 20:33 04/15/18 20:52 04/15/18 23:00 Temperature 97.9 F Pulse Rate 113 H 116 H 120 H Respiratory Rate 28 H 20 32 H Blood Pressure 129/94 H 136/81 Pulse Oximetry 96 98 95 04/16/18 00:00 04/16/18 00:08 04/16/18 00:25 Temperature 98.0 F Pulse Rate 113 H Respiratory Rate 28 H 22 25 H Blood Pressure 137/89 Pulse Oximetry 97 04/16/18 01:00 04/16/18 02:00 04/16/18 02:13 Temperature Pulse Rate 112 H 107 H 111 H Respiratory Rate 24 26 H 47 H Blood Pressure 148/97 H 140/80 Pulse Oximetry 97 96 95 04/16/18 03:00 04/16/18 03:01 04/16/18 04:00 Temperature 97.9 F Pulse Rate 109 H 108 H 101 H Respiratory Rate 25 H 21 14 Blood Pressure 158/83 H 143/85 H Pulse Oximetry 93 L 95 97 04/16/18 05:00 04/16/18 06:00 04/16/18 06:01 Temperature Pulse Rate 105 H 110 H 109 H Respiratory Rate 31 H 22 25 H Blood Pressure 121/84 134/95 H Pulse Oximetry 97 94 L 96 04/16/18 06:37 04/16/18 06:42 04/16/18 08:00 Temperature 97.7 F Pulse Rate 105 H 108 H Respiratory Rate 20 35 H Blood Pressure 145/88 H Pulse Oximetry 96 96 04/16/18 09:59 04/16/18 11:26 04/16/18 12:00 Temperature 97.5 F L Pulse Rate 107 H 113 H Respiratory Rate 22 20 20 Blood Pressure 145/97 H Pulse Oximetry 97 04/16/18 13:46 Temperature Pulse Rate Respiratory Rate 18 Blood Pressure Pulse Oximetry Intake & Output 04/15/18 04/16/18 04/16/18 18:59 06:59 18:59 Intake Total 3064 / 3064 Output Total 200 / 200 700 / 700 Balance 2864 / 2864 -700 / -700 Weight 90.7 kg 92.2 kg Intake: IV 564 / 564 Decadron Inj 20 MG Kytril Inj 1 56 / 56 MG In NS Inj 50 ML @ 330 mls/ hr IV.SIG DAILY@1300 [facility] Rx#: [id number] Vepesid Inj 160 MG In NS Inj 508 / 508 500 ML @ 508 mls/hr IV.SIG DAILY@1330 [facility] Rx#:[id number] Oral 2500 / 2500 Output: Urine 200 / 200 700 / 700 Other: # Voids 2 # Incontinent Voids 0 Weight On Admission 90.7 kg Result Diagrams: 04/15/18 09:42 04/15/18 09:54 Laboratory Results: Laboratory Results - last 24 hr 04/15/18 04/15/18 04/15/18 18:26 18:26 20:00 PT 11.8 H INR 1.2 Urine Color Urine Clarity Urine pH Ur Specific [place] Urine Protein Urine Glucose (UA) Urine Ketones Urine Occult Blood Urine Nitrate Urine Bilirubin Urine Urobilinogen Ur Leukocyte Esterase Urine RBC Urine WBC Amorphous Sediment Hyaline Casts Micro UA Comment Ur Microscopic Review Urine Culture Comments Nasal Screen MRSA (PCR) Not detected Blood Type A Positive Antibody Screen Negative MTS Gel Crossmatch See Detail 04/15/18 20:55 PT INR Urine Color Yellow Urine Clarity Turbid H Urine pH 5.0 Ur Specific [place] 1.015 Urine Protein 30 H Urine Glucose (UA) Negative Urine Ketones Negative Urine Occult Blood Small H Urine Nitrate Negative Urine Bilirubin Negative Urine Urobilinogen Less than 2 Ur Leukocyte Esterase Negative Urine RBC 2 Urine WBC 6 H Amorphous Sediment Few H Hyaline Casts 13 Micro UA Comment Culture not ind Ur Microscopic Review Not Reportable Urine Culture Comments Culture not ind Nasal Screen MRSA (PCR) Blood Type Antibody Screen MTS Gel Crossmatch Culture Results: Microbiology 04/15/18 09:55 Aerobic Blood Culture - Preliminary Blood - Peripheral No growth in 1 day Anaerobic Blood Culture - Preliminary No growth in 1 day 04/15/18 09:44 Aerobic Blood Culture - Preliminary Blood - Line No growth in 1 day Anaerobic Blood Culture - Preliminary No growth in 1 day Medications: Active Medications Generic Name Dose Route Start Last Admin Trade Name Freq PRN Reason Stop Dose Admin Albuterol 1 ampul 04/15/18 11:16 04/16/18 06:37 Duoneb Neb (Prn) NEB 1 ampul Q2HR NEB PRN Administration wheezing/SOB Chlorhexidine Gluconate 3 pack 04/16/18 04:00 04/16/18 04:09 Chlorhexidine 2% Cloth TOPICAL 04/21/18 03:59 3 pack DAILY@0400 BANDAR Administration Sodium Chloride 1,000 mls @ 100 mls/hr 04/15/18 12:00 04/15/18 15:57 Ns Inj IV.SIG 100 mls/hr .Q10H BANDAR Administration Dexamethasone Sodium Phosphate 56 mls @ 330 mls/hr 04/15/18 13:00 04/15/18 13 :50 20 mg/ Granisetron HCl 1 mg/ IV.SIG 04/17/18 13:11 Infused Sodium Chloride DAILY@1300 [facility] Infusion Etoposide 160 mg/ Sodium 508 mls @ 508 mls/hr 04/15/18 13:30 04/15/18 15:57 Chloride IV.SIG 04/17/18 14:29 Infused DAILY@1330 [facility] Infusion Levofloxacin 500 mg 04/15/18 11:30 04/16/18 08:04 Levaquin PO 500 mg DAILY BANDAR Administration Lorazepam 0.5 mg 04/15/18 09:38 04/16/18 08:04 Ativan PO 0.5 mg Q6H PRN Administration anxiety or sleep Morphine Sulfate 8 mg 04/15/18 19:30 04/16/18 12:24 Morphine Inj IV.PUSH 8 mg Q4H PRN Administration PAIN 1-10 Pantoprazole Sodium 20 mg 04/15/18 18:15 04/16/18 08:04 Protonix PO 20 mg DAILY BANDAR Administration Prednisone 5 mg 04/15/18 11:30 04/16/18 08:04 Deltasone PO 5 mg DAILY BANDAR Administration Voriconazole 100 mg 04/15/18 11:21 04/16/18 09:59 Vfend PO 100 mg DAILY BANDAR Administration Objective Remarks: GENERAL: Chronically ill-appearing male patient, in no acute distress.+ Lethargic. SKIN: Warm and dry. HEAD: Normocephalic. EYES: No scleral icterus. No injection or drainage. NECK: Supple, trachea midline. CARDIOVASCULAR: Regular rate and rhythm without murmurs. RESPIRATORY: Absent right breath sounds, left breath sounds harsh, mild wheeze, no stridor. Minimal accessory muscle use. GASTROINTESTINAL: Abdomen soft, non-tender, nondistended. EXTREMITIES: No cyanosis, or edema. MUSCULOSKELETAL: Adequate muscle tone. NEUROLOGICAL: No obvious focal deficit. + Lethargic oriented x3. PSYCHIATRIC: Appropriate mood and affect; insight and judgment normal. Assessment/Plan - Plan Mr Turner is a 43-year-old gentleman with recurrent T-cell lymphoblastic lymphoma. Currently admitted for his next cycle of palliative chemotherapy with ICE. Recommendations: 1. Recurrent T-cell lymphoblastic lymphoma, day 2 chemotherapy with ICE. 2. Recurrent right pleural effusion, thoracic surgeon has been consulted. Patient scheduled to go to the OR today. 3. After his procedure, his nurse is aware to call oncology nurse as the patient will proceed with day#2 chemotherapy. Oncology nurse is aware as well. 4. Fevers, likely secondary to lymphoma, however we will continue to monitor closely, blood cultures with no growth times 1 day. 5. History of DVT, Xarelto on hold pending procedures. - Attending Statement The exam, history, and the medical decision-making described in the above note were completed with the assistance of the mid-level provider. I reviewed and agree with the findings presented. I attest that I had a [id number] encounter with the patient on the same day, and personally performed and documented my assessment and findings in the medical record. Tolerated thoracentesis/pleural decortication procedure well, breathing better, CT draining serosangenous fluid. Anticipate proceed with Day 2 chemo tonight. HOLD day 3 Etoposide. Tolerating PO fluids well. Continue hydration, noted excess output from chest tube. Pt will need GCSF support 24 hours after completion of infusional chemo. Pain controlled. DVT prophylaxis with LMWH.
[2018-04-16] MEDS ORDERED: Bisacodyl 10 MG Supp RECTAL PRN (15:53)
[2018-04-16] MEDS ORDERED: Acetaminophen 325 MG Tablet PO PRN (15:53)
[2018-04-16] MEDS ORDERED: Post-op Orders (for Pharmacy) OTHER STA (15:53)
--- NOTE | 2018-04-16 16:18 | P.OP ---
Date of procedure: 04/16/18 Anesthesia: KAYCEEA Surgeon: Yong Frey MD Operation and Findings: PREOPERATIVE DIAGNOSES 1. Right Recurrent Pleural Effusion. 2. Leukemia 3. S/P Multiple Thoracenteses POSTOPERATIVE DIAGNOSES Same SURGICAL PROCEDURE 1. Right Video-Assisted Thoracoscopic Surgery (VATS). 2. Evacuation of Loculated Pleural Effusion. 3. Decortication 4. PleurX catheter placement. 5. Intercostal Nerve Block 6. Fiberoptic Bronchoscopy with Lavage SURGEON Yong Frey MD RN FIELD LESLI Carter ANESTHESIA General double lumen endotracheal. TRANSPORT MEDIC Arminda Meeks, OIL WELL SERVICE OPERATOR Wang Baca MD PREPARATION ChloraPrep. COUNTS Needle, sponge, and instrument counts are correct. DRAINS One PleurX catheter and 32 Fr Chest Tube. COMPLICATIONS None. INDICATIONS The patient is a 43 yo gentleman status post previous R VATS with lung biopsy and subsequent multiple thoracentesis for recurrent pleural effusion. The patient is being brought to the operating room for drainage and pleurodesis. DESCRIPTION OF PROCEDURE The patient was brought to the operating room and placed supine on the OR table. Following the induction of adequate general endotracheal anesthesia and placement of appropriate monitoring devices, fiberoptic bronchoscopy was performed. There were copious mucoid secretions in the right tracheobronchial tree which were evacuated. No endobronchial lesions were identified. The patient was placed in the left lateral decubitus position. The right chest and surrounding areas were then prepped and draped in a standard sterile fashion. A 5 mm camera port was introduced into the 9th intercostal space in posterior axillary line, and the camera introduced. A second 5 mm port was then placed anteriorly under direct visual guidance. Multiple loculated fluid collections were identified. These were broken up in all fluid collections evacuated. Through the port, the suction device was advanced, and approximately 1900 mls of serous fluid evacuated. Circumferential decortication was performed and the fibrinous peel sent for cytologic and microbiologic analysis. Complete evacuation of all fluid was confirmed under visual guidance. The anterior port was removed and a PleurX catheter was introduced and tunneled for about 5 cm and exited through the anterolateral chest wall. This was maintained in place with a nonabsorbable suture. Through a separate mid axillary incision, a 32 Armenian chest tube was placed and advanced into the apex of the right hemithorax under direct vision. This was maintained in place with nonabsorbable suture. Both of the entry sites were injected with 0.5% Marcaine as was the port site. Following confirmation of the catheter in the proper place, the incision was closed in 2 layers. A sterile dressing was applied. Intercostal nerve block was performed using Marcaine solution. The patient tolerated the procedure well and was transferred to the recovery room in stable condition.
[2018-04-16] MEDS ORDERED: fentaNYL Citrate Inj 100 MCG/2 ML Ampul ONE ×2 (16:35)
[2018-04-16] MEDS ORDERED: *morphine SULFATE 4 MG/ML PERIprocedure ONLY ONE ×3 (16:39→16:57)
--- NOTE | 2018-04-16 17:17 | XR ---
EXAM DATE: 04/16/2018 5:13 PM EST AGE/SEX: 43 years / Male INDICATIONS: Post op thoracotomy CLINICAL DATA: This is the patient's initial encounter. Patient reports that signs and symptoms have been present for 1 day and indicates a pain score of Nonresponsive. MEDICAL/SURGICAL HISTORY: . Chemotherapy. Blood clots. Lymphoma. Meniscus degeneration. Superio r vena cava syndrome. . Thoracentesis COMPARISON: [facility] [place], [place]/12/2018. . FINDINGS: Right chest dialysis catheter is stable. There has been interval insertion of a right base thoracosto my tube with some evacuation of pleural fluid from the right chest. There is persistent extensive con solidation. Left lung is stable and clear. CONCLUSION: Interval right chest surgery with slight improvement in aeration Electronically signed by: Bienvenido Bear MD 04/16/2018 5:15 PM EST
[2018-04-16] MEDS: Ketorolac Inj 30 MG/ML (IVP) Vial IV.PUSH SCH (18:38)
[2018-04-16] MEDS: Senna/Docusate Sodium 8.6/50 MG Tablet PO SCH (20:02)
[2018-04-16] MEDS ORDERED: ceFAZolin 1 GM Premix Inj 1 GM/50 ML FROZ.PIGGY IV.SIG ONE (22:11)
[2018-04-16] MEDS: ceFAZolin 1 GM Premix Inj 1 GM/50 ML FROZ.PIGGY IV.SIG SCH (22:21)
[2018-04-17] MEDS: Ketorolac Inj 30 MG/ML (IVP) Vial IV.PUSH SCH ×3 (00:15→12:07)
[2018-04-17] MEDS: Chlorhexidine Gluconate 2% 1 Pack (2 Cloths) TOPICAL SCH (03:24)
[2018-04-17] MEDS ORDERED: ceFAZolin 1 GM Premix Inj 1 GM/50 ML FROZ.PIGGY IV.SIG ONE ×2 (04:53→13:59)
[2018-04-17] MEDS: Morphine Inj 4 MG/ML Vial IV.PUSH PRN ×5 (04:59→22:22)
[2018-04-17] MEDS: ceFAZolin 1 GM Premix Inj 1 GM/50 ML FROZ.PIGGY IV.SIG SCH ×2 (05:03→14:04)
--- NOTE | 2018-04-17 05:28 | XR ---
EXAM DATE: 04/17/2018 4:34 AM EST AGE/SEX: 43 years / Male INDICATIONS: Shortness of breath, possible pulmonary disease. CLINICAL DATA: This is the patient's subsequent encounter. Patient reports that signs and symptoms h ave been present for 4 - 6 days and indicates a pain score of 7/10. MEDICAL/SURGICAL HISTORY: Lymphoma. Chest tube, right. Thoracentesis. Thoracotomy. COMPARISON: [facility] – [place], CHEST 1V SINGLE AP, 04/16/2018. . FINDINGS: Right-sided central line in superior vena cava. Right chest tubes without significant pneumothorax. D ense consolidation in the right lung with some residual fluid similar to April 16. Left lung remai ns clear. CONCLUSION: Dense consolidation in the right lung with some residual fluid similar to prior exam. 2 right chest t ubes remain in place without significant pneumothorax. Electronically signed by: Kavon Green MD 04/17/2018 5:27 AM EST
[2018-04-17 05:44] LABS: Baso % (Auto) 0.3 % (0.0-2.0); Hematocrit 28.5 % (39.0-51.0); Hemoglobin 9.1 gm/dL (13.0-17.0); Lymph # (Auto) 0.1 th/mm3 (1.0-4.8); Lymph % (Auto) 0.8 % (9.0-44.0); Mean Corpuscular Volume 78.1 fL (80.0-100.0); Mono # (Auto) 0.3 th/mm3 (0.0-0.9); Mono % (Auto) 4.1 % (0.0-8.0); Neut % (Auto) 94.8 % (16.0-70.0); Platelet Count 183 th/mm3 (150-450); Red Blood Count 3.65 mil/mm3 (4.50-5.90); Red Cell Distribution Width 19.8 % (11.6-17.2); White Blood Count 6.3 th/mm3 (4.0-11.0)
[2018-04-17 05:46] LABS: Activated Partial Thrombo Time 33.1 sec (23.4-31.7); INR 1.1 Ratio; Prothrombin Time 10.7 sec (9.8-11.6)
[2018-04-17 06:18] LABS: Alanine Aminotransferase 26 U/L (12-78); Albumin 1.9 g/dL (3.4-5.0); Alkaline Phosphatase 131 U/L (45-117); Anion Gap 10 meq/L (5-15); Aspartate Aminotransferase 42 U/L (15-37); Blood Urea Nitrogen 55 mg/dL (7-18); Calcium 7.9 mg/dL (8.5-10.1); Carbon Dioxide 25.7 meq/L (21.0-32.0); Chloride 95 meq/L (98-107); Glomerular Filtration Rate 43 mL/min (>89); Glucose,Random 157 mg/dL (74-106); Potassium 4.8 meq/L (3.5-5.1); Sodium 131 meq/L (136-145); Total Protein 5.9 g/dL (6.4-8.2)
[2018-04-17] MEDS: levoFLOXacin 500 MG Tablet PO SCH (08:13)
[2018-04-17] MEDS: predniSONE 5 MG Tablet PO SCH (08:13)
[2018-04-17] MEDS: Senna/Docusate Sodium 8.6/50 MG Tablet PO SCH ×2 (08:13→20:22)
[2018-04-17] MEDS: Dexamethasone Inj 20 MG, Granisetron Inj 1 MG in Sodium Chlor 0.9% Inj 50 ML IV.SIG SCH ×2 (08:45)
[2018-04-17] MEDS: ETOPOSIDE IV.SIG SCH (09:56)
[2018-04-17] MEDS: SODIUM CHLOR 0.9% IV.SIG SCH (09:56)
[2018-04-17] MEDS ORDERED: Sod Chloride 0.9% Inj 1,000 ML IV.SIG SCH (10:00)
--- NOTE | 2018-04-17 10:08 | P.PNONC ---
Subjective Interval history: Afebrile. Patient sitting up in bed, he is status post right chest tube and Pleurx catheter placed yesterday. He reports his breathing has improved. He continues to have a productive cough. He is no longer using accessory muscles to breathe. Currently on O2 via nasal cannula at 3 L. Ice chemotherapy delayed, patient will receive day 2 today. Discussed with Maura Russo Yolanda, chemo nurse and Helen C nurse. Patient cleared for transfer to oncology floor from otolaryngology teacher and surgeon. Order placed. Objective Vital Signs/Intake & Output: Vital Signs 04/16/18 09:59 04/16/18 10:00 04/16/18 11:00 Temperature Pulse Rate 108 H 109 H Respiratory Rate 22 20 17 Blood Pressure 121/87 Pulse Oximetry 95 95 04/16/18 11:01 04/16/18 11:26 04/16/18 12:00 Temperature 97.5 F L Pulse Rate 109 H 107 H 111 H Respiratory Rate 19 20 31 H Blood Pressure 143/93 H 145/97 H Pulse Oximetry 96 97 04/16/18 13:00 04/16/18 13:46 04/16/18 16:20 Temperature 97.4 F L Pulse Rate 111 H 95 H Respiratory Rate 16 18 22 Blood Pressure 150/92 H 115/69 Pulse Oximetry 96 97 04/16/18 16:35 04/16/18 16:55 04/16/18 17:05 Temperature 98.0 F Pulse Rate 98 H 97 H 97 H Respiratory Rate 20 22 18 Blood Pressure 128/80 130/84 Pulse Oximetry 96 97 98 04/16/18 17:21 04/16/18 17:25 04/16/18 18:00 Temperature Pulse Rate 102 H 101 H 90 Respiratory Rate 22 22 19 Blood Pressure 135/82 113/73 Pulse Oximetry 96 97 97 04/16/18 19:00 04/16/18 20:00 04/16/18 21:00 Temperature 97 F L Pulse Rate 104 H 100 H 100 H Respiratory Rate 20 21 19 Blood Pressure Pulse Oximetry 97 98 97 04/16/18 22:00 04/16/18 23:00 04/17/18 00:00 Temperature 97.5 F L Pulse Rate 98 H 103 H 109 H Respiratory Rate 30 H 36 H 26 H Blood Pressure Pulse Oximetry 96 95 95 04/17/18 00:26 04/17/18 01:00 04/17/18 02:00 Temperature Pulse Rate 109 H 115 H 107 H Respiratory Rate 22 33 H 11 L Blood Pressure Pulse Oximetry 96 97 04/17/18 03:00 04/17/18 04:00 04/17/18 05:00 Temperature 97.5 F L Pulse Rate 100 H 96 H 104 H Respiratory Rate 10 L 9 L 24 Blood Pressure Pulse Oximetry 97 97 97 04/17/18 06:00 04/17/18 08:00 Temperature 97.8 F Pulse Rate 97 H 100 H Respiratory Rate 15 19 Blood Pressure Pulse Oximetry 98 97 Intake & Output 04/16/18 04/17/18 04/17/18 18:59 06:59 18:59 Intake Total 1250 / 1250 850 / 850 56 / 56 Output Total 1790 / 1790 1800 / 1800 Balance -540 / -540 -950 / -950 56 / 56 Weight 89.5 kg Intake: IV 50 / 50 100 / 100 56 / 56 Decadron Inj 20 MG Kytril Inj 1 56 / 56 MG In NS Inj 50 ML @ 330 mls/ hr IV.SIG DAILY@1300 [facility] Rx#: [id number] Ancef 1 GM Premix Inj 1 gm In 100 / 100 50 ml @ 200 mls/hr IV.SIG Q8H [facility] Rx#:[id number] Ancef 2 GM Premix Inj 2 gm In 50 / 50 50 ml @ 200 mls/hr IV.SIG MASTIC MAN [facility] Rx#:[id number] Oral 750 / 750 Anesthesia Amount 1200 / 1200 Output: Urine 1000 / 1000 500 / 500 Estimated Blood Loss 100 / 100 Chest Tube Drainage 690 / 690 1300 / 1300 #2 Right Pleural 690 / 690 1300 / 1300 Other: # Bowel Movements 0 Result Diagrams: 04/17/18 04:45 04/17/18 04:45 Laboratory Results: Laboratory Results - last 24 hr 04/15/18 04/17/18 04/17/18 18:26 04:45 04:45 WBC 6.3 RBC 3.65 L Hgb 9.1 L Hct 28.5 L MCV 78.1 L MCH 25.0 L MCHC 32.0 RDW 19.8 H Plt Count 183 MPV 8.0 Neut % (Auto) 94.8 H Lymph % (Auto) 0.8 L [place] % (Auto) 4.1 Eos % (Auto) 0.0 Baso % (Auto) 0.3 Neut # (Auto) 6.0 Lymph # (Auto) 0.1 L [place] # (Auto) 0.3 Eos # (Auto) 0.0 Baso # (Auto) 0.0 WBC Differential . Differential Comment Auto diff final PT 10.7 INR 1.1 APTT 33.1 H Sodium Potassium Chloride Carbon Dioxide Anion Gap BUN Creatinine Estimated GFR Random Glucose Calcium Total Bilirubin AST ALT Alkaline Phosphatase Total Protein Albumin Blood Type A Positive Antibody Screen Negative MTS Gel Crossmatch See Detail 04/17/18 04:45 WBC RBC Hgb Hct MCV MCH MCHC RDW Plt Count MPV Neut % (Auto) Lymph % (Auto) [place] % (Auto) Eos % (Auto) Baso % (Auto) Neut # (Auto) Lymph # (Auto) [place] # (Auto) Eos # (Auto) Baso # (Auto) WBC Differential Differential Comment PT INR APTT Sodium 131 L Potassium 4.8 Chloride 95 L Carbon Dioxide 25.7 Anion Gap 10 BUN 55 H Creatinine 1.74 H Estimated GFR 43 L Random Glucose 157 H Calcium 7.9 L D Total Bilirubin 0.3 AST 42 H ALT 26 Alkaline Phosphatase 131 H Total Protein 5.9 L D Albumin 1.9 L Blood Type Antibody Screen MTS Gel Crossmatch Culture Results: Microbiology 04/15/18 09:55 Aerobic Blood Culture - Preliminary Blood - Peripheral No growth in 1 day Anaerobic Blood Culture - Preliminary No growth in 1 day 04/15/18 09:44 Aerobic Blood Culture - Preliminary Blood - Line No growth in 1 day Anaerobic Blood Culture - Preliminary No growth in 1 day Imaging Studies: Impressions Chest X-Ray 04/16/18 15:54 CONCLUSION: Interval right chest surgery with slight improvement in aeration Chest X-Ray 04/17/18 15:54 CONCLUSION: Dense consolidation in the right lung with some residual fluid similar to prior exam. 2 right chest tubes remain in place without significant pneumothorax. Medications: Active Medications Generic Name Dose Route Start Last Admin Trade Name Freq PRN Reason Stop Dose Admin Albuterol 1 ampul 04/15/18 11:16 04/17/18 00:26 Duoneb Neb (Prn) NEB 1 ampul Q2HR NEB PRN Administration wheezing/SOB Chlorhexidine Gluconate 3 pack 04/16/18 04:00 04/17/18 03:24 Chlorhexidine 2% Cloth TOPICAL 04/21/18 03:59 3 pack DAILY@0400 [facility] Administration Sodium Chloride 500 ml/ 0 ml 04/15/18 17:15 04/16/18 16:10 Cefazolin Sodium 500 mg IRRIGATION 04/21/18 17:06 Not Given MASTIC MAN [facility] Sodium Chloride 1,000 mls @ 100 mls/hr 04/15/18 12:00 04/15/18 15:57 Ns Inj IV.SIG 100 mls/hr .Q10H [facility] Administration Dexamethasone Sodium Phosphate 56 mls @ 330 mls/hr 04/15/18 13:00 04/17/18 08 :56 20 mg/ Granisetron HCl 1 mg/ IV.SIG 04/17/18 13:11 Infused Sodium Chloride DAILY@1300 [facility] Infusion Etoposide 160 mg/ Sodium 508 mls @ 508 mls/hr 04/15/18 13:30 04/15/18 15:57 Chloride IV.SIG 04/17/18 14:29 Infused DAILY@1330 [facility] Infusion Cefazolin Sodium/Dextrose 2 gm in 50 mls @ 200 mls/hr 04/15/18 17:54 15:00 Ancef 2 Gm Premix Inj IV.SIG 04/21/18 17:53 Infused MASTIC MAN [facility] Infusion Cefazolin Sodium/Dextrose 1 gm in 50 mls @ 200 mls/hr 04/16/18 22:00 05:30 Ancef 1 Gm Premix Inj IV.SIG 04/17/18 14:14 Infused Q8H [facility] In[facility] Ketorolac Tromethamine 15 mg 04/16/18 18:00 04/17/18 05:03 Toradol Inj IV.PUSH 04/17/18 12:01 15 mg Q6H [facility] Administration Levofloxacin 500 mg 04/15/18 11:30 04/17/18 08:13 Levaquin PO 04/21/18 09:01 500 mg DAILY [facility] Administration Lorazepam 0.5 mg 04/15/18 09:38 04/16/18 08:04 Ativan PO 0.5 mg Q6H PRN Administration anxiety or sleep Morphine Sulfate 8 mg 04/15/18 19:30 04/17/18 04:59 Morphine Inj IV.PUSH 8 mg Q4H PRN Administration PAIN 1-10 Pantoprazole Sodium 40 mg 04/16/18 21:00 04/16/18 20:02 Protonix PO 40 mg HS [facility] Administration Prednisone 5 mg 04/15/18 11:30 04/17/18 08:13 Deltasone PO 5 mg DAILY [facility] Administration Senna/Docusate Sodium 1 tab 04/16/18 21:00 04/17/18 08:13 Naa-Colace PO 1 tab BID [facility] Administration Sodium Chloride 2 ml 04/16/18 21:00 04/17/18 08:13 Ns Flush IV.FLUSH 2 ml BID [facility] Administration Voriconazole 100 mg 04/15/18 11:21 04/17/18 08:13 Vfend PO 100 mg DAILY [facility] Administration Objective Remarks: GENERAL: Chronically ill-appearing male patient, in no acute distress. SKIN: Warm and dry. HEAD: Normocephalic. EYES: No scleral icterus. No injection or drainage. NECK: Supple, trachea midline. CARDIOVASCULAR: Regular rate and rhythm without murmurs. RESPIRATORY: Right breath sounds inspiratory gurgles, left with rhochi throughout. No wheezes or stridor. Right chest tube draining serosanguineous fluid, Pleurx catheter bandage dry/intact. O2 via nasal cannula 3 L. GASTROINTESTINAL: Abdomen soft, non-tender, nondistended. EXTREMITIES: No cyanosis, or edema. MUSCULOSKELETAL: Adequate muscle tone. NEUROLOGICAL: No obvious focal deficit. Awake, alert and oriented x3. PSYCHIATRIC: Appropriate mood and affect; insight and judgment normal. Assessment/Plan - Plan Mr Turner is a 43-year-old gentleman with recurrent T-cell lymphoblastic lymphoma. Currently admitted for his next cycle of palliative chemotherapy with ICE. Recommendations: 1. Recurrent T-cell lymphoblastic lymphoma, day 2 chemotherapy with ICE was delayed, pt will receive day #2 chemo today. Discussed with Karan, executive community planning, Maura, charge nurse and Selena chemo RN and pt's nurse Kathia. 2. Recurrent right pleural effusion, Status post right VATS, evacuation of loculated pleural effusion, decortication, Pleurx catheter placement and fiberoptic bronchoscopy with lavage. Patient currently with right chest tube draining to [place], serosanguineous fluid. Also has Pleurx catheter, surgeon has orders on chart to drain Pleurx catheter daily until less than 100 cc of drainage from the chest tube. Then drain catheter every other day. Start daily draining on 04/17/2018. 3. Fevers, resolved, likely secondary to lymphoma, however we will continue to monitor closely, blood cultures with no growth times 1 day. 4. History of DVT, Xarelto on hold for VATS yesterday, chest tube with serosanguineous fluid draining. Will restart Xarelto once cleared by surgeon to do so. We will need to monitor labs closely as the patient is receiving chemotherapy and his blood counts will start decreasing. 5. Patient cleared by otolaryngology teacher and surgeon to be transferred to oncology floor. Orders placed. - Attending Statement The exam, history, and the medical decision-making described in the above note were completed with the assistance of the mid-level provider. I reviewed and agree with the findings presented. I attest that I had a [id number] encounter with the patient on the same day, and personally performed and documented my assessment and findings in the medical record. Patient seen and examined. Labs revealed anemia and mild prerenal azotemia. He was behind on his fluids although he was taking p.o. fluids well he has a significant amount of drainage from the chest tube. IV fluid pre-medication and hydration prior to infusional chemotherapy was initiated. Hydration during the chemotherapy will continue. We will maintain good urine output. He will continue to be managed in the ICU. His chest tube drainage is still significant. Pleurx is in place. His pain appears to be well controlled. We will transfer back to oncology when stable.
[2018-04-17] MEDS ORDERED: CARBOPLATIN IV.SIG ONE (12:00)
[2018-04-17] MEDS ORDERED: SODIUM CHLOR 0.9% IV.SIG ONE (12:00)
--- NOTE | 2018-04-17 18:36 | P.PNCV ---
- Note Subjective/Hospital Course: A 43-year-old male known to our service in the past, who underwent right video- assisted thoracoscopy, right upper lobe biopsy 09/16/2017. Diagnosis with T- cell lymphoblastic lymphoma progressive disease, recurrent pleural effusions. Since the right VATS, he has had approximately 5 thoracenteses. His last was a couple days ago. He was able to go home after he came into the emergency department. He was readmitted this morning with severe shortness of breath, also, pleuritic pain. When he leans forward and lies back. He has paroxysmal nocturnal dyspnea. He also has some orthopnea. We were consulted to reevaluate for repeat thoracic surgery regarding the right large pleural effusion. He underwent ultrasound of the chest which showed estimated fluid about 400, fluid being very complex fluid and with debris. PAST MEDICAL HISTORY: Recent diagnosis of T-cell lymphoblastic lymphoma. He has been to [facility] and has been worked up for possible bone marrow transplant. He is currently on ICE chemotherapy, but unfortunately, he did relapse with the right large pleural effusion. He is being followed closely by Dr. Leigh for chemotherapy and treatment. The patient did recently have the thoracentesis on 04/12/2018 three days ago where they drained 900 mL of fluid, which helped improve his breathing. 04/16/18 SURGICAL PROCEDURE 1. Right Video-Assisted Thoracoscopic Surgery (VATS). 2. Evacuation of Loculated Pleural Effusion. 3. Decortication 4. PleurX catheter placement. 5. Intercostal Nerve Block 6. Fiberoptic Bronchoscopy with Lavage 04/17 pt feels better, on nasal cannula chest tube to wall suction Objective: Vital Signs - 24 hr 04/16/18 19:00 04/16/18 20:00 04/16/18 21:00 Temperature 97 F L Pulse Rate 104 H 100 H 100 H Respiratory Rate 20 21 19 Blood Pressure Pulse Oximetry 97 98 97 04/16/18 22:00 04/16/18 23:00 04/17/18 00:00 Temperature 97.5 F L Pulse Rate 98 H 103 H 109 H Respiratory Rate 30 H 36 H 26 H Blood Pressure Pulse Oximetry 96 95 95 04/17/18 00:26 04/17/18 01:00 04/17/18 02:00 Temperature Pulse Rate 109 H 115 H 107 H Respiratory Rate 22 33 H 11 L Blood Pressure Pulse Oximetry 96 97 04/17/18 03:00 04/17/18 04:00 04/17/18 05:00 Temperature 97.5 F L Pulse Rate 100 H 96 H 104 H Respiratory Rate 10 L 9 L 24 Blood Pressure Pulse Oximetry 97 97 97 04/17/18 06:00 04/17/18 08:00 04/17/18 10:45 Temperature 97.8 F Pulse Rate 97 H 100 H Respiratory Rate 15 19 16 Blood Pressure Pulse Oximetry 98 97 04/17/18 11:48 04/17/18 12:00 04/17/18 12:48 Temperature 97.7 F 98.4 F Pulse Rate 97 H 109 H Respiratory Rate 18 25 H 18 Blood Pressure 133/83 128/78 Pulse Oximetry 97 97 04/17/18 14:31 04/17/18 15:42 04/17/18 16:00 Temperature 97.6 F Pulse Rate 117 H 111 H Respiratory Rate 18 17 22 Blood Pressure 109/70 Pulse Oximetry 98 GENERAL: A&O x 3 SKIN: Warm and dry. HEAD: Normocephalic. EYES: No scleral icterus. No injection or drainage. NECK: Supple, trachea midline. No JVD or lymphadenopathy. CARDIOVASCULAR: Regular rate and rhythm without murmurs, gallops, or rubs. RESPIRATORY: right lung sound very diminished but improved chest tube tow all suction, no air leak Breath sounds equal bilaterally. No accessory muscle use. GASTROINTESTINAL: Abdomen soft, non-tender, nondistended. MUSCULOSKELETAL: No cyanosis, or edema. BACK: Nontender without obvious deformity. No CVA tenderness. Result Diagrams: 04/17/18 04:45 04/17/18 04:45 Telemetry: sinus tach - Plan (1) Pleural effusion Plan: s/p right VATS pleurx cath keep chest tube to suction
[2018-04-17] MEDS: LORazepam 0.5 MG Tablet PO PRN (20:28)
[2018-04-18] MEDS: Sod Chloride 0.9% Inj 1,000 ML IV.SIG SCH ×4 (00:01→18:19)
[2018-04-18] MEDS: SODIUM CHLOR 0.9% IV.SIG SCH (00:10)
[2018-04-18] MEDS: ETOPOSIDE IV.SIG SCH (00:10)
[2018-04-18] MEDS: Morphine Inj 4 MG/ML Vial IV.PUSH PRN ×5 (02:38→20:23)
[2018-04-18] MEDS: Chlorhexidine Gluconate 2% 1 Pack (2 Cloths) TOPICAL SCH (03:11)
[2018-04-18 04:37] LABS: Baso % (Auto) 0.1 % (0.0-2.0); Hematocrit 24.8 % (39.0-51.0); Hemoglobin 7.9 gm/dL (13.0-17.0); Lymph % (Auto) 0.8 % (9.0-44.0); Mean Corpuscular Hemoglobin 25.1 pg (27.0-34.0); Mean Corpuscular Volume 78.6 fL (80.0-100.0); Mean Platelet Volume 7.9 fL (7.0-11.0); Mono % (Auto) 1.3 % (0.0-8.0); Neut # (Auto) 3.4 th/mm3 (1.8-7.7); Neut % (Auto) 97.8 % (16.0-70.0); Platelet Count 179 th/mm3 (150-450); Red Blood Count 3.16 mil/mm3 (4.50-5.90); Red Cell Distribution Width 19.4 % (11.6-17.2); White Blood Count 3.5 th/mm3 (4.0-11.0)
[2018-04-18 05:02] LABS: Albumin 1.6 g/dL (3.4-5.0); Calcium 7.3 mg/dL (8.5-10.1); Potassium 4.8 meq/L (3.5-5.1); Total Protein 5.2 g/dL (6.4-8.2)
[2018-04-18] MEDS: Senna/Docusate Sodium 8.6/50 MG Tablet PO SCH ×2 (09:21→20:38)
[2018-04-18] MEDS: levoFLOXacin 500 MG Tablet PO SCH (09:21)
[2018-04-18] MEDS: predniSONE 5 MG Tablet PO SCH (09:21)
[2018-04-18] MEDS: Metoprolol Tartrate 25 MG Tablet PO SCH ×2 (11:15→20:38)
[2018-04-18] MEDS ORDERED: Dexamethasone Inj 20 MG, Granisetron Inj 1 MG in Sodium Chlor 0.9% Inj 50 ML IV.SIG SCH ×2 (13:00)
--- NOTE | 2018-04-18 13:04 | P.PNCV ---
- Note Subjective/Hospital Course: A 43-year-old male known to our service in the past, who underwent right video- assisted thoracoscopy, right upper lobe biopsy 09/16/2017. Diagnosis with T- cell lymphoblastic lymphoma progressive disease, recurrent pleural effusions. Since the right VATS, he has had approximately 5 thoracenteses. His last was a couple days ago. He was able to go home after he came into the emergency department. He was readmitted this morning with severe shortness of breath, also, pleuritic pain. When he leans forward and lies back. He has paroxysmal nocturnal dyspnea. He also has some orthopnea. We were consulted to reevaluate for repeat thoracic surgery regarding the right large pleural effusion. He underwent ultrasound of the chest which showed estimated fluid about 400, fluid being very complex fluid and with debris. PAST MEDICAL HISTORY: Recent diagnosis of T-cell lymphoblastic lymphoma. He has been to [facility] and has been worked up for possible bone marrow transplant. He is currently on ICE chemotherapy, but unfortunately, he did relapse with the right large pleural effusion. He is being followed closely by Dr. Leigh for chemotherapy and treatment. The patient did recently have the thoracentesis on 04/12/2018 three days ago where they drained 900 mL of fluid, which helped improve his breathing. 04/16/18 SURGICAL PROCEDURE 1. Right Video-Assisted Thoracoscopic Surgery (VATS). 2. Evacuation of Loculated Pleural Effusion. 3. Decortication 4. PleurX catheter placement. 5. Intercostal Nerve Block 6. Fiberoptic Bronchoscopy with Lavage 04/17 pt feels better, on nasal cannula chest tube to wall suction 04/18 pt drained 995 cc 24hrs no air leak will fax pleurx cath drainage kit form so pt can have refills at home on nasal cannula BP and HR up , will add low dose BB Objective: Vital Signs - 24 hr 04/17/18 14:31 04/17/18 15:42 04/17/18 16:00 Temperature 97.6 F Pulse Rate 117 H 111 H Respiratory Rate 18 17 22 Blood Pressure 109/70 Pulse Oximetry 98 04/17/18 20:14 04/17/18 21:21 04/17/18 23:20 Temperature 97.9 F 97.9 F Pulse Rate 114 H 103 H Respiratory Rate 20 20 Blood Pressure 146/83 H 128/88 Pulse Oximetry 98 94 L 99 04/18/18 00:00 04/18/18 03:27 04/18/18 04:00 Temperature 97.8 F Pulse Rate 109 H 92 H 104 H Respiratory Rate 18 Blood Pressure 136/85 Pulse Oximetry 99 04/18/18 08:09 04/18/18 08:15 04/18/18 09:31 Temperature 97.6 F Pulse Rate 123 H 115 H Respiratory Rate 20 18 Blood Pressure 135/94 H Pulse Oximetry 98 97 GENERAL: A&O x 3 SKIN: Warm and dry. HEAD: Normocephalic. EYES: No scleral icterus. No injection or drainage. NECK: Supple, trachea midline. No JVD or lymphadenopathy. CARDIOVASCULAR: Regular rate and rhythm without murmurs, gallops, or rubs. RESPIRATORY: Breath sounds equal bilaterally. No accessory muscle use. diminished and coarse breath sounds on right / chest tube to wall suction/ no air leak GASTROINTESTINAL: Abdomen soft, non-tender, nondistended. MUSCULOSKELETAL: No cyanosis, or edema. BACK: Nontender without obvious deformity. No CVA tenderness. Labs: Laboratory Results - last 12 hr 04/15/18 04/18/18 04/18/18 18:26 03:30 03:30 WBC 3.5 L RBC 3.16 L Hgb 7.9 L Hct 24.8 L MCV 78.6 L MCH 25.1 L MCHC 32.0 RDW 19.4 H Plt Count 179 MPV 7.9 Neut % (Auto) 97.8 H Lymph % (Auto) 0.8 L [place] % (Auto) 1.3 Eos % (Auto) 0.0 Baso % (Auto) 0.1 Neut # (Auto) 3.4 Lymph # (Auto) 0.0 L [place] # (Auto) 0.0 Eos # (Auto) 0.0 Baso # (Auto) 0.0 WBC Differential . Differential Comment Auto diff final Sodium 136 Potassium 4.8 Chloride 105 D Carbon Dioxide 22.0 Anion Gap 9 BUN 49 H Creatinine 1.43 H Estimated GFR 54 L Random Glucose 211 H Calcium 7.3 L* Calcium Adj for Albumin 8.3 L Total Bilirubin 0.2 AST 99 H ALT 61 Alkaline Phosphatase 133 H Total Protein 5.2 L D Albumin 1.6 L MTS Gel Crossmatch See Detail Result Diagrams: 04/18/18 03:30 04/18/18 03:30 - Plan (1) Pleural effusion Plan: s/p right VATS pleurx cath keep chest tube to suction
[2018-04-18] MEDS ORDERED: SODIUM CHLOR 0.9% IV.SIG SCH (13:30)
[2018-04-18] MEDS ORDERED: ETOPOSIDE IV.SIG SCH (13:30)
--- NOTE | 2018-04-18 13:30 | P.DCO ---
- Diagnosis (1) Pleural effusion Status: Acute (2) Non-Hodgkin's lymphoma in adult Status: Chronic - Home Health Nursing Order: Medical education, Wound care and dressing changes Instructions: Incentive spirometry Q1 hr x 10, while awake, also use acapella device hourly whole Chest wall precautions: NO pushing or pulling, ( pt must use chest pillow support chest with all activities and with coughing Daily incision care: ok to shower ( 48hrs after chest tube removed) and then daily, no tub bath. Wash all incisions with liquid dial soap, clean wash cloth to each site, rinse and pat dry. Observe for any signs of infection, such as drainage which is dark yellow, amezcua, green or foul smelling. Immediately report to the surgeon any drainage from the chest incision, or legs, and for any abnormal drainage from the chest tube sites. Notify surgeon if any temp > 101.5 degrees F. When specialty dressing removed/ or if you do not have one, continue to shower daily as above, then rinse and pat incision dry and paint with betadine daily x 5 days. Allow steri strips to fall off if you have any. Avoid lotions, creams, salves, oils, etc. for the first month For Dr. Tinsley patients , please obtain PA & Lat CXR in 2 weeks, results to Dr. Tinsley ( prescription will be given) ( ) (Tele: [phone]) , F/U appointment: as per [place] instructions: PCP in 2 weeks, CV surgeon 2 weeks, Manager Cafe 3-4 weeks For any questions regarding incisions/ dressing / meds / post op care or above Symptoms, Saturday 8am-5pm Heart & Vascular Surgery Office ( Dr. Frey & Dr. Tinsley), After Hours / Nights (5pm -8am) Weekends and Holidays Please call [facility] ([facility]) Charge Nurse pt has pleurx cath / use pleurx cath drainage kit drain daily , then every other day for <100cc please have pt keep diary of output - Case Management Consult Case Management Consult-Home Health: Yes - Certification I have seen patient Ronnell Turner on 04/18/18. My clinical findings support the need for the requested home health care services because: Deconditioned with increased weakness I certify that my clinical findings support that this patient is homebound because: Post-op weakness, Hx COPD - exertion dyspnea/weakness (pleurx cath )
--- NOTE | 2018-04-18 14:58 | P.PNONC ---
Subjective Interval history: Afebrile Multiple family members at bedside Patient asleep on approach but is easily awakened Reports his pain medicine is not lasting for the full 4 hours Breathing somewhat improved Chest tube continues to put out significant amount of drainage Objective Vital Signs/Intake & Output: Vital Signs 04/17/18 15:42 04/17/18 16:00 04/17/18 20:14 Temperature 97.6 F 97.9 F Pulse Rate 117 H 111 H 114 H Respiratory Rate 17 22 20 Blood Pressure 109/70 146/83 H Pulse Oximetry 98 98 04/17/18 21:21 04/17/18 23:20 04/18/18 00:00 Temperature 97.9 F Pulse Rate 103 H 109 H Respiratory Rate 20 Blood Pressure 128/88 Pulse Oximetry 94 L 99 04/18/18 03:27 04/18/18 04:00 04/18/18 08:09 Temperature 97.8 F Pulse Rate 92 H 104 H Respiratory Rate 18 Blood Pressure 136/85 Pulse Oximetry 99 98 04/18/18 08:15 04/18/18 09:31 04/18/18 11:30 Temperature 97.6 F 98.5 F Pulse Rate 123 H 115 H 123 H Respiratory Rate 20 18 18 Blood Pressure 135/94 H 130/83 Pulse Oximetry 97 97 Intake & Output 04/17/18 04/18/18 04/18/18 18:59 06:59 18:59 Intake Total 3927.8 / 3927.8 3000 / 3000 Output Total 2120 / 2120 2225 / 2225 Balance 1807.8 / 1807.8 775 / 775 Weight 197 lb 1.492 oz Intake: IV 2927.8 / 2927.8 1000 / 1000 Decadron Inj 20 MG Kytril Inj 1 56 / 56 MG In NS Inj 50 ML @ 330 mls/ hr IV.SIG DAILY@1300 [facility] Rx#: [id number] Vepesid Inj 160 MG In NS Inj 508 / 508 500 ML @ 508 mls/hr IV.SIG DAILY@1330 [facility] Rx#:[id number] NS Inj 1,000 ML @ 150 mls/hr IV 2000 / 1999 1000 / 1000 .SIG .Q6H40M [facility] Rx#:[id number] Ancef 1 GM Premix Inj 1 gm In 50 / 50 50 ml @ 200 mls/hr IV.SIG Q8H [facility] Rx#:[id number] Oral 1000 / 1000 1999 / 1999 Output: Urine 800 / 800 1300 / 1300 Chest Tube Drainage 1320 / 1320 925 / 925 #1 Right Pleural 1320 / 1320 #2 Right Pleural 925 / 925 Other: # Voids 3 Date of Last Bowel Movement 04/15/18 04/15/18 Result Diagrams: 04/18/18 03:30 04/18/18 03:30 Laboratory Results: Laboratory Results - last 24 hr 04/15/18 04/18/18 04/18/18 18:26 03:30 03:30 WBC 3.5 L RBC 3.16 L Hgb 7.9 L Hct 24.8 L MCV 78.6 L MCH 25.1 L MCHC 32.0 RDW 19.4 H Plt Count 179 MPV 7.9 Neut % (Auto) 97.8 H Lymph % (Auto) 0.8 L [place] % (Auto) 1.3 Eos % (Auto) 0.0 Baso % (Auto) 0.1 Neut # (Auto) 3.4 Lymph # (Auto) 0.0 L [place] # (Auto) 0.0 Eos # (Auto) 0.0 Baso # (Auto) 0.0 WBC Differential . Differential Comment Auto diff final Sodium 136 Potassium 4.8 Chloride 105 D Carbon Dioxide 22.0 Anion Gap 9 BUN 49 H Creatinine 1.43 H Estimated GFR 54 L Random Glucose 211 H Calcium 7.3 L* Calcium Adj for Albumin 8.3 L Total Bilirubin 0.2 AST 99 H ALT 61 Alkaline Phosphatase 133 H Total Protein 5.2 L D Albumin 1.6 L MTS Gel Crossmatch See Detail Culture Results: Microbiology 04/15/18 09:55 Aerobic Blood Culture - Preliminary Blood - Peripheral No growth in 3 days Anaerobic Blood Culture - Preliminary No growth in 3 days 04/15/18 09:44 Aerobic Blood Culture - Preliminary Blood - Line No growth in 3 days Anaerobic Blood Culture - Preliminary No growth in 3 days Medications: Active Medications Generic Name Dose Route Start Last Admin Trade Name Freq PRN Reason Stop Dose Admin Albuterol 1 ampul 04/15/18 11:16 04/18/18 08:13 Duoneb Neb (Prn) NEB 1 ampul Q2HR NEB PRN Administration wheezing/SOB Chlorhexidine Gluconate 3 pack 04/16/18 04:00 04/18/18 03:11 Chlorhexidine 2% Cloth TOPICAL 04/21/18 03:59 Not Given DAILY@0400 B[facility]AR Sodium Chloride 500 ml/ 0 ml 04/15/18 17:15 04/16/18 16:10 Cefazolin Sodium 500 mg IRRIGATION 04/21/18 17:06 Not Given SPRAY I PAINTER B[facility] Hydrophilic Ointment 1 applicatio 04/18/18 10:16 04/18/18 11:04 Aquaphor Oint TOPICAL 1 applicatio PRN PRN Administration SKIN IRRITATION Sodium Chloride 1,000 mls @ 150 mls/hr 04/15/18 12:00 04/18/18 11:16 Ns Inj IV.SIG 150 mls/hr .Q6H40M [facility] Administration [place] 10,000 mg/ Ifosfamide 10 1,100 mls @ 45.833 mls/hr 04/16/18 15:00 04/17 14:15 ,000 mg/ Sodium Chloride IV.SIG 45.83 mls/hr ONCE B[facility]AR Administration Cefazolin Sodium/Dextrose 2 gm in 50 mls @ 200 mls/hr 04/15/18 17:54 15:00 Ancef 2 Gm Premix Inj IV.SIG 04/21/18 17:53 Infused SPRAY I PAINTER B[facility]AR Infusion Levofloxacin 500 mg 04/15/18 11:30 04/18/18 09:21 Levaquin PO 04/21/18 09:01 500 mg DAILY BANDAR Administration Lorazepam 0.5 mg 04/15/18 09:38 04/17/18 20:28 Ativan PO 0.5 mg Q6H PRN Administration anxiety or sleep Metoprolol Tartrate 12.5 mg 04/18/18 10:30 04/18/18 11:15 Lopressor PO 12.5 mg BID B[facility]AR Administration Morphine Sulfate 8 mg 04/15/18 19:30 04/18/18 11:04 Morphine Inj IV.PUSH 8 mg Q4H PRN Administration PAIN 1-10 Pantoprazole Sodium 40 mg 04/16/18 21:00 04/17/18 20:22 Protonix PO 40 mg HS BANDAR Administration Prednisone 5 mg 04/15/18 11:30 04/18/18 09:21 Deltasone PO 5 mg DAILY B[facility]AR Administration Senna/Docusate Sodium 1 tab 04/16/18 21:00 04/18/18 09:21 Naa-Colace PO 1 tab BID B[facility]AR Administration Sodium Chloride 2 ml 04/16/18 21:00 04/18/18 11:05 Ns Flush IV.FLUSH 2 ml BID B[facility]AR Administration Voriconazole 100 mg 04/15/18 11:21 04/18/18 11:05 Vfend PO 100 mg DAILY BANDAR Administration Objective Remarks: GENERAL: Chronically ill-appearing male patient, in no acute distress. SKIN: Warm and dry. HEAD: Normocephalic. EYES: No scleral icterus. No injection or drainage. NECK: Supple, trachea midline. CARDIOVASCULAR: Regular rate and rhythm without murmurs. RESPIRATORY: Scattered rhonchi throughout. No wheezes or stridor. Right chest tube draining serosanguineous fluid, Pleurx catheter bandage dry/intact. O2 via nasal cannula 3 L. GASTROINTESTINAL: Abdomen soft, non-tender, nondistended. EXTREMITIES: No cyanosis, or edema. MUSCULOSKELETAL: Adequate muscle tone. NEUROLOGICAL: No obvious focal deficit. Awake, alert and oriented x3. Assessment/Plan - Plan Mr Turner is a 43-year-old gentleman with recurrent T-cell lymphoblastic lymphoma. Currently admitted for his next cycle of palliative chemotherapy with ICE. Recommendations: 1. Recurrent T-cell lymphoblastic lymphoma, patient received day #2 chemotherapy with ICE yesterday. Per nurse this is almost complete. His third day of treatment will be held due to concern for cytopenias. 2. Recurrent right pleural effusion, Status post right VATS, evacuation of loculated pleural effusion, decortication, Pleurx catheter placement and fiberoptic bronchoscopy with lavage. Patient currently with right chest tube draining to collection device. Large amt sero-sanguinous fluid noted. Pleurex catheter in place. 3. Fevers, resolved, likely secondary to lymphoma, blood cultures show no growth times 3 days and the patient has remained afebrile. 4. History of DVT, Xarelto on hold for recent VATS procedure. Noted hemoglobin is down to 7.9 today from 9.1 yesterday. We will empirically give 1 unit packed red blood cells. 5. Monitor CBC - Attending Statement The exam, history, and the medical decision-making described in the above note were completed with the assistance of the mid-level provider. I reviewed and agree with the findings presented. I attest that I had a kids-er-yotk encounter with the patient on the same day, and personally performed and documented my assessment and findings in the medical record. Patient seen and examined. Eager to go home. Frustrated the chest tube is still in place draining significant amount of clear fluid. The output has become clear no longer serosanguineous. Noted renal insufficiency improving. Noted hemoglobin is decreased in part due to dilution. Recommend continued IV fluid hydration in light of toxicity associated with ifosfamide. Furthermore to improve the renal function, which decline in part due to prerenal azotemia. There is a significant amount of output from the right chest tube that is accounted for. Anticipate starting G-CSF tomorrow. Anticipate discharge once chest tube is removed. Patient may follow-up on an outpatient basis.
[2018-04-18] MEDS ORDERED: Acetaminophen 325 MG Tablet PO PRN (15:18)
[2018-04-18] MEDS ORDERED: Sodium Chlor 0.9% Inj 250 ML IV.SIG SCH ×2 (16:00)
[2018-04-18] MEDS: Enoxaparin Inj 30 MG/0.3 ML Syringe SQ SCH (16:12)
[2018-04-19] MEDS: Morphine Inj 4 MG/ML Vial IV.PUSH PRN ×5 (00:17→16:43)
[2018-04-19] MEDS: Sod Chloride 0.9% Inj 1,000 ML IV.SIG SCH ×2 (01:50→05:00)
[2018-04-19] MEDS: Chlorhexidine Gluconate 2% 1 Pack (2 Cloths) TOPICAL SCH (03:07)
[2018-04-19 05:58] LABS: Baso % (Auto) 0.1 % (0.0-2.0); Hematocrit 25.5 % (39.0-51.0); Hemoglobin 8.3 gm/dL (13.0-17.0); Mean Corpuscular HGB Conc 32.5 % (32.0-36.0); Mean Corpuscular Hemoglobin 25.7 pg (27.0-34.0); Mean Corpuscular Volume 79.2 fL (80.0-100.0); Mean Platelet Volume 7.3 fL (7.0-11.0); Mono % (Auto) 0.6 % (0.0-8.0); Neut # (Auto) 2.3 th/mm3 (1.8-7.7); Neut % (Auto) 98.3 % (16.0-70.0); Platelet Count 163 th/mm3 (150-450); Red Blood Count 3.22 mil/mm3 (4.50-5.90); Red Cell Distribution Width 19.3 % (11.6-17.2); White Blood Count 2.3 th/mm3 (4.0-11.0)
[2018-04-19 06:26] LABS: Alanine Aminotransferase 48 U/L (12-78); Albumin 1.6 g/dL (3.4-5.0); Alkaline Phosphatase 105 U/L (45-117); Anion Gap 6 meq/L (5-15); Aspartate Aminotransferase 39 U/L (15-37); Blood Urea Nitrogen 29 mg/dL (7-18); Calcium 8.3 mg/dL (8.5-10.1); Carbon Dioxide 23.6 meq/L (21.0-32.0); Chloride 110 meq/L (98-107); Glomerular Filtration Rate Greater Than 89 mL/min (>89); Glucose,Random 116 mg/dL (74-106); Potassium 4.8 meq/L (3.5-5.1); Sodium 140 meq/L (136-145); Total Protein 4.8 g/dL (6.4-8.2)
[2018-04-19] MEDS: levoFLOXacin 500 MG Tablet PO SCH (08:42)
[2018-04-19] MEDS: Metoprolol Tartrate 25 MG Tablet PO SCH (08:43)
[2018-04-19] MEDS: Enoxaparin Inj 30 MG/0.3 ML Syringe SQ SCH (08:43)
[2018-04-19] MEDS: predniSONE 5 MG Tablet PO SCH (08:43)
[2018-04-19] MEDS: Senna/Docusate Sodium 8.6/50 MG Tablet PO SCH (08:46)
--- NOTE | 2018-04-19 09:26 | P.PNONC ---
Subjective Interval history: Afebrile Patient sitting up in bed tearful He reports he has had all night to think about how grateful he is to be alive Feels somewhat better after the blood transfusion Desperately wants to go home today Objective Vital Signs/Intake & Output: Vital Signs 04/18/18 09:31 04/18/18 11:30 04/18/18 16:40 Temperature 97.6 F 98.5 F 97.9 F Pulse Rate 115 H 123 H 104 H Respiratory Rate 18 18 18 Blood Pressure 135/94 H 130/83 130/90 Pulse Oximetry 97 97 99 04/18/18 17:32 04/18/18 20:00 04/18/18 20:01 Temperature Pulse Rate 102 H 103 H Respiratory Rate 20 Blood Pressure Pulse Oximetry 96 04/18/18 23:09 04/18/18 23:30 04/19/18 00:00 Temperature 98.3 F 98.3 F Pulse Rate 100 H 89 90 Respiratory Rate 18 18 Blood Pressure 122/79 121/78 Pulse Oximetry 98 99 04/19/18 02:46 04/19/18 04:00 04/19/18 08:00 Temperature 98.0 F 97.8 F Pulse Rate 79 83 114 H Respiratory Rate 18 16 18 Blood Pressure 138/90 125/78 Pulse Oximetry 100 100 04/19/18 09:04 Temperature Pulse Rate Respiratory Rate Blood Pressure Pulse Oximetry 99 Intake & Output 04/18/18 04/19/18 04/19/18 18:59 06:59 18:59 Intake Total 2156 / 2156 2130 / 2130 Output Total 2200 / 2200 1340 / 1340 Balance -44 / -44 790 / 790 Intake: IV 2156 / 2156 1250 / 1250 Decadron Inj 20 MG Kytril Inj 1 56 / 56 MG In NS Inj 50 ML @ 330 mls/ hr IV.SIG DAILY@1300 B[facility] Rx#: [id number] Mesnex Inj 10,000 MG Ifex Inj 1100 / 1100 10,000 MG In NS Inj 1,000 ML @ 45.833 mls/hr IV.SIG ONCE [facility] Rx#:[id number] NS Inj 1,000 ML @ 150 mls/hr IV 1000 / 1000 1250 / 1250 .SIG .Q6H40M [facility] Rx#:[id number] Oral 480 / 480 Intake (Blood Product) Amt 400 / 400 Rbc As-3 Leukoreduced Unit 400 / 400 [id number] Output: Urine 1700 / 1700 630 / 630 Chest Tube Drainage 500 / 500 710 / 710 #1 Right Pleural 500 / 500 #2 Right Pleural 710 / 710 Other: # Voids 1 Date of Last Bowel Movement 04/15/18 04/15/18 Result Diagrams: 04/19/18 04:20 04/19/18 04:20 Laboratory Results: Laboratory Results - last 24 hr 04/18/18 04/19/18 04/19/18 17:00 04:20 04:20 WBC 2.3 L RBC 3.22 L Hgb 8.3 L Hct 25.5 L MCV 79.2 L MCH 25.7 L MCHC 32.5 RDW 19.3 H Plt Count 163 MPV 7.3 Neut % (Auto) 98.3 H Lymph % (Auto) 1.0 L [place] % (Auto) 0.6 Eos % (Auto) 0.0 Baso % (Auto) 0.1 Neut # (Auto) 2.3 Lymph # (Auto) 0.0 L [place] # (Auto) 0.0 Eos # (Auto) 0.0 Baso # (Auto) 0.0 WBC Differential . Differential Comment Auto diff final Sodium 140 Potassium 4.8 Chloride 110 H Carbon Dioxide 23.6 Anion Gap 6 BUN 29 H Creatinine 0.67 Estimated GFR Greater than 89 Random Glucose 116 H Calcium 8.3 L D Total Bilirubin 0.2 AST 39 H ALT 48 Alkaline Phosphatase 105 Total Protein 4.8 L Albumin 1.6 L Blood Type A Positive Antibody Screen Negative MTS Gel Crossmatch See Detail Culture Results: Microbiology 04/15/18 09:55 Aerobic Blood Culture - Preliminary Blood - Peripheral No growth in 3 days Anaerobic Blood Culture - Preliminary No growth in 3 days 04/15/18 09:44 Aerobic Blood Culture - Preliminary Blood - Line No growth in 3 days Anaerobic Blood Culture - Preliminary No growth in 3 days Medications: Active Medications Generic Name Dose Route Start Last Admin Trade Name Freq PRN Reason Stop Dose Admin Acetaminophen 650 mg 04/18/18 15:18 04/18/18 22:36 Tylenol PO 650 mg Q4H PRN Administration SEE LABEL COMMENTS Hydrocodone Bitart/Acetaminophen 1 tab 04/18/18 14:31 04/19/18 08:54 [place] 7.5/325 PO 1 tab Q4H PRN Administration BREAKTHROUGH PAIN Albuterol 1 ampul 04/15/18 11:16 04/18/18 17:32 Duoneb Neb (Prn) NEB 1 ampul Q2HR NEB PRN Administration wheezing/SOB Chlorhexidine Gluconate 3 pack 04/16/18 04:00 04/19/18 03:07 Chlorhexidine 2% Cloth TOPICAL 04/21/18 03:59 Not Given DAILY@0400 B[facility] Sodium Chloride 500 ml/ 0 ml 04/15/18 17:15 04/16/18 16:10 Cefazolin Sodium 500 mg IRRIGATION 04/21/18 17:06 Not Given PLASTER CASTER B[facility]AR Diphenhydramine HCl 25 mg 04/18/18 15:18 04/18/18 22:36 Benadryl PO 25 mg Q4H PRN Administration SEE LABEL COMMENTS Enoxaparin Sodium 30 mg 04/18/18 15:30 04/19/18 08:43 Lovenox Inj SQ 30 mg DAILY BANDAR Administration Hydrophilic Ointment 1 applicatio 04/18/18 10:16 04/18/18 11:04 Aquaphor Oint TOPICAL 1 applicatio PRN PRN Administration SKIN IRRITATION Sodium Chloride 1,000 mls @ 150 mls/hr 04/15/18 12:00 04/19/18 05:00 Ns Inj IV.SIG 150 mls/hr .Q6H40M B[facility] Administration [place] 10,000 mg/ Ifosfamide 10 1,100 mls @ 45.833 mls/hr 04/16/18 15:00 04/18 16:14 ,000 mg/ Sodium Chloride IV.SIG Infused ONCE BANDAR Infusion Cefazolin Sodium/Dextrose 2 gm in 50 mls @ 200 mls/hr 04/15/18 17:54 15:00 Ancef 2 Gm Premix Inj IV.SIG 04/21/18 17:53 Infused PLASTER CASTER B[facility]AR Infusion Levofloxacin 500 mg 04/15/18 11:30 04/19/18 08:42 Levaquin PO 04/21/18 09:01 500 mg DAILY BANDAR Administration Lorazepam 0.5 mg 04/15/18 09:38 04/17/18 20:28 Ativan PO 0.5 mg Q6H PRN Administration anxiety or sleep Metoprolol Tartrate 12.5 mg 04/18/18 10:30 04/19/18 08:43 Lopressor PO 12.5 mg BID BANDAR Administration Morphine Sulfate 8 mg 04/15/18 19:30 04/19/18 08:55 Morphine Inj IV.PUSH 8 mg Q4H PRN Administration PAIN 1-10 Pantoprazole Sodium 40 mg 04/16/18 21:00 04/18/18 20:38 Protonix PO 40 mg HS BANDAR Administration Prednisone 5 mg 04/15/18 11:30 04/19/18 08:43 Deltasone PO 5 mg DAILY BANDAR Administration Senna/Docusate Sodium 1 tab 04/16/18 21:00 04/19/18 08:46 Naa-Colace PO Not Given BID BANDAR Sodium Chloride 2 ml 04/16/18 21:00 04/19/18 09:00 Ns Flush IV.FLUSH 2 ml BID BANDAR Administration Voriconazole 100 mg 04/15/18 11:21 04/19/18 08:42 Vfend PO 100 mg DAILY BANDAR Administration Objective Remarks: GENERAL: Chronically ill-appearing male patient, in no acute distress. SKIN: Warm and dry. HEAD: Normocephalic. EYES: No scleral icterus. No injection or drainage. NECK: Supple, trachea midline. CARDIOVASCULAR: Regular rate and rhythm without murmurs. RESPIRATORY: Scattered rhonchi throughout. No wheezes or stridor. Right chest tube draining serous fluid, Pleurx catheter bandage dry/intact. O2 via nasal cannula 3 L. GASTROINTESTINAL: Abdomen soft, non-tender, nondistended. EXTREMITIES: No cyanosis, or edema. MUSCULOSKELETAL: Adequate muscle tone. NEUROLOGICAL: No obvious focal deficit. Awake, alert and oriented x3. Assessment/Plan - Plan Mr Turner is a 43-year-old gentleman with recurrent T-cell lymphoblastic lymphoma. Currently admitted for his next cycle of palliative chemotherapy with ICE. Recommendations: 1. Recurrent T-cell lymphoblastic lymphoma, patient received cycle of chemotherapy with ICE. Day 3 was held due to concern for cytopenias. 2. Recurrent right pleural effusion, Status post right VATS, evacuation of loculated pleural effusion, decortication, Pleurx catheter placement and fiberoptic bronchoscopy with lavage. Patient currently with right chest tube draining to collection device. Patient still with good amount of drainage. I have ordered a chest x-ray for today to evaluate. 3. Patient received 1 unit packed red blood cells yesterday for hemoglobin of 7.9. He reports he feels somewhat better after the transfusion. Hemoglobin improved today to 8.4. We will continue to monitor CBC. - Attending Statement The exam, history, and the medical decision-making described in the above note were completed with the assistance of the mid-level provider. I reviewed and agree with the findings presented. I attest that I had a hnuy-ic-cyaj encounter with the patient on the same day, and personally performed and documented my assessment and findings in the medical record. Patient feels better after transfusion. He is eager to go home. He denies chest pain or palpitation. He has no shortness of breath or cough. He was started on Neupogen. Chest tube has improved. Plan to discharge him today and consult home health. He will follow-up with Dr. Leigh.
--- NOTE | 2018-04-19 09:50 | XR ---
EXAM DATE: 04/19/2018 9:40 AM EST AGE/SEX: 43 years / Male INDICATIONS: Right side chest tube. CLINICAL DATA: This is the patient's subsequent encounter. Patient reports that signs and symptoms h ave been present for 1 week and indicates a pain score of 8/10. MEDICAL/SURGICAL HISTORY: . Chemotherapy. Blood clots. Lymphoma. . Thoracentesis . COMPARISON: C, CHEST 1V SINGLE AP, 04/17/2018. . FINDINGS: No change in the pleural parenchymal consolidation throughout the right hemithorax. The 2 right chest tubes remains in place. No significant pneumothorax. No significant change compared to the prior jyoti dy. The left lung is clear and well-aerated. No new or focal infiltrates are seen in the left lung. T he heart size is stable. The bony structures are stable. CONCLUSION: Stable examination compared to the prior study. No new or significant changes. Electronically signed by: Tonio Carrillo MD 04/19/2018 9:48 AM EST
--- NOTE | 2018-04-19 10:26 | P.PNCV ---
- Note Subjective/Hospital Course: A 43-year-old male known to our service in the past, who underwent right video- assisted thoracoscopy, right upper lobe biopsy 09/16/2017. Diagnosis with T- cell lymphoblastic lymphoma progressive disease, recurrent pleural effusions. Since the right VATS, he has had approximately 5 thoracenteses. His last was a couple days ago. He was able to go home after he came into the emergency department. He was readmitted this morning with severe shortness of breath, also, pleuritic pain. When he leans forward and lies back. He has paroxysmal nocturnal dyspnea. He also has some orthopnea. We were consulted to reevaluate for repeat thoracic surgery regarding the right large pleural effusion. He underwent ultrasound of the chest which showed estimated fluid about 400, fluid being very complex fluid and with debris. PAST MEDICAL HISTORY: Recent diagnosis of T-cell lymphoblastic lymphoma. He has been to [facility] and has been worked up for possible bone marrow transplant. He is currently on ICE chemotherapy, but unfortunately, he did relapse with the right large pleural effusion. He is being followed closely by Dr. Leigh for chemotherapy and treatment. The patient did recently have the thoracentesis on 04/12/2018 three days ago where they drained 900 mL of fluid, which helped improve his breathing. 04/16/18 SURGICAL PROCEDURE 1. Right Video-Assisted Thoracoscopic Surgery (VATS). 2. Evacuation of Loculated Pleural Effusion. 3. Decortication 4. PleurX catheter placement. 5. Intercostal Nerve Block 6. Fiberoptic Bronchoscopy with Lavage 04/17 pt feels better, on nasal cannula chest tube to wall suction 04/18 pt drained 995 cc 24hrs no air leak will fax pleurx cath drainage kit form so pt can have refills at home on nasal cannula BP and HR up , will add low dose BB 04/19 CT outputs slowly declining D/C CT today Will need daily PleurX catheter drainage by [facility] and recorded OK to D/C home from my standpoint if C arranged for Objective: Vital Signs - 24 hr 04/18/18 11:30 04/18/18 16:40 04/18/18 17:32 Temperature 98.5 F 97.9 F Pulse Rate 123 H 104 H 102 H Respiratory Rate 18 18 20 Blood Pressure 130/83 130/90 Pulse Oximetry 97 99 04/18/18 20:00 04/18/18 20:01 04/18/18 23:09 Temperature 98.3 F Pulse Rate 103 H 100 H Respiratory Rate 18 Blood Pressure 122/79 Pulse Oximetry 96 98 04/18/18 23:30 04/19/18 00:00 04/19/18 02:46 Temperature 98.3 F 98.0 F Pulse Rate 89 90 79 Respiratory Rate 18 18 Blood Pressure 121/78 138/90 Pulse Oximetry 99 100 04/19/18 04:00 04/19/18 08:00 04/19/18 09:04 Temperature 97.8 F Pulse Rate 83 114 H Respiratory Rate 16 18 Blood Pressure 125/78 Pulse Oximetry 100 99 Labs: Laboratory Results - last 12 hr 04/18/18 04/19/18 04/19/18 17:00 04:20 04:20 WBC 2.3 L RBC 3.22 L Hgb 8.3 L Hct 25.5 L MCV 79.2 L MCH 25.7 L MCHC 32.5 RDW 19.3 H Plt Count 163 MPV 7.3 Neut % (Auto) 98.3 H Lymph % (Auto) 1.0 L [place] % (Auto) 0.6 Eos % (Auto) 0.0 Baso % (Auto) 0.1 Neut # (Auto) 2.3 Lymph # (Auto) 0.0 L [place] # (Auto) 0.0 Eos # (Auto) 0.0 Baso # (Auto) 0.0 WBC Differential . Differential Comment Auto diff final Sodium 140 Potassium 4.8 Chloride 110 H Carbon Dioxide 23.6 Anion Gap 6 BUN 29 H Creatinine 0.67 Estimated GFR Greater than 89 Random Glucose 116 H Calcium 8.3 L D Total Bilirubin 0.2 AST 39 H ALT 48 Alkaline Phosphatase 105 Total Protein 4.8 L Albumin 1.6 L Blood Type A Positive Antibody Screen Negative MTS Gel Crossmatch See Detail Result Diagrams: 04/19/18 04:20 04/19/18 04:20 - Plan (1) Pleural effusion Plan: s/p right VATS pleurx cath keep chest tube to suction
--- NOTE | 2018-04-19 16:36 | P.DCO ---
- Diagnosis (1) Lymphoma Status: Chronic - Home Health Nursing Order: Medical education, Signs/symptoms of disease process, Oxygen administration education, Wound care and dressing changes - Certification I have seen patient Ronnell Turner on 04/19/18. My clinical findings support the need for the requested home health care services because: Limited mobility due to disease progression, Patient has SOB, Deconditioned with increased weakness, Limited ability to care for self, High risk of falls I certify that my clinical findings support that this patient is homebound because: Impaired cognitive ability/safety, Unsteady gait/balance, Unsafe to leave home unassisted Attestation/Additional Detail: Pt with recurrent pleural effusion due to T-cell lymphoma. He will need education and training on drainage of Pleur-X catheter.
== END 2018-04-19 18:24 | disposition home or self-care (01) ==
LOC: HCIN 07:00 → HIMC 21:25 → HCIN 04-17 19:55
PROVIDERS: ADMIT Internal Medicine Hematology & Oncology; ATTEND Internal Medicine Hematology & Oncology

== ENCOUNTER 2018-04-28 23:19 | Inpatient (IN) ==
[2018-04-28] MEDS ORDERED: Sod Chloride 0.9% Inj 1,000 ML IV.SIG ONE (23:37)
[2018-04-28] MEDS ORDERED: Acetaminophen 325 MG Tablet PO ONE (23:37)
[2018-04-28] MEDS ORDERED: Morphine Inj 4 MG, Morphine Inj 2 MG IV.PUSH ONE ×2 (23:39)
--- NOTE | 2018-04-28 23:51 | ED ---
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 Leigh. The patient reports that he had his last round of chemotherapy 1-1/2 weeks ago. The patient reports that he has not felt well since the last chemotherapy regimen. He reports that he has had body aches, congestion, rhinorrhea. He reports that 2 days ago he developed a fever with a T-max of 101.2. The patient also reports having a nosebleed 2 days ago and because of this stopping his Xarelto. He reports that he was on Xarelto related to having a blood clot in bilateral upper extremities. The patient reports that his rhinorrhea has improved. He reports that he continues to have a dry cough and sore throat. He reports that 1 hour prior to arrival he also began to have in the left posterior upper chest. The patient arrives with a temperature 101.6, heart rate of 147. He reports having body aches, however no specific calf pain, swelling, or erythema. He reports that he saw his oncologist earlier today and his platelets were noted to be low. He was set up to have a blood transfusion tomorrow as well as a platelet transfusion. He also reports that he was going to get Neupogen. The patient reports that the pain in his left posterior upper chest is sharp in character. He reports that it is 10 out of 10 in severity. He reports that the pain in his posterior upper left chest On review of systems otherwise, the patient denies having any neck pain, shortness of breath, abdominal pain, vomiting, diarrhea, urinary symptoms, or neurologic symptoms. Related Data Home Medications Medication Instructions Recorded Confirmed albuterol sulfate 2 puff INHALATION Q4-6H PRN 12/13/17 04/28/18 morphine 30 mg PO BID PRN 12/13/17 04/28/18 prednisone 5 mg PO DAILY 04/08/18 04/28/18 voriconazole [Vfend] 100 mg PO DAILY 04/08/18 04/28/18 ibuprofen [Motrin IB] 600 mg PO Q4-6H PRN 04/15/18 04/28/18 Previous Rx's Medication Instructions Recorded sennosides-docusate sodium [Senna 2 tab PO BID #120 tab 12/17/17 Plus] ipratropium-albuterol 1 amp NEB Q2HR NEB PRN ml 02/09/18 levofloxacin 500 mg PO DAILY #5 tab 04/13/18 Allergies Allergy/AdvReac Type Severity Reaction Status Date / Time adhesive tape AdvReac Blister Verified 04/12/18 03:58 Review of Systems ROS: all other systems reviewed are negative FORMERLY [facility], [facility] Medical History Medical History Hx of blood clots (Acute) Lymphoma (Chronic) Compression of intervertebral disc (Acute) History of chemotherapy (Acute) 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) Surgical History Surgical History History of thoracentesis (Acute) Family History Family History Other Coronary artery disease Social History Social History Substance History: No History of Abuse Second Hand Smoke Exposure: No Smoking Status: Never smoker How Often Do You Have a Drink Containing Alcohol: Never Exam Const General: cooperative, well developed and acute distress (Reportedly related to pain.) mild Nutritional Appearance: well nourished Orientation: alert, awake and oriented x3 HENMT Head: normocephalic and atraumatic Nose: no nasal discharge and no epistaxis Mouth: moist mucous membranes Throat: posterior oropharynx normal and uvula midline Eyes Sclera: normal sclerae Pupils: PERRL Neck Neck: no meningeal signs, trachea midline and no JVD Chest Chest: other (On examination of the patient's right upper chest, the patient has a central line in place that appears to be in good repair without any signs of infection.) Resp Effort & Inspection: no use of accessory muscles Auscultation: no rales, no rhonchi, no wheezes and other (Patient has decreased breath sounds on auscultation on the right compared to the left.) Cardio Rate: regular rate Rhythm: regular rhythm Heart Sounds: no murmurs GI Inspection: non-distended Palpation: soft, no hepatosplenomegaly, no guarding, not rigid and nontender Auscultation: normal bowel sounds Back/Spine/Pelvis Back: no CVA tenderness Skin General: dry skin (warm) Neuro General: alert, awake, oriented x3 and other (Grossly nonfocal.) Speech: speech normal Motor: no movement abnormalities noted Extrem General: normal to inspection (2+ pulses in all 4 extremities.), no calf tenderness, no clubbing, no cyanosis and no edema Psych Mood: congruent mood Affect: normal affect Judgment: judgment good Course Consultations Consultation #1: The patient's case including history, pertinent physical examination findings, and laboratory studies were discussed with Dr. Herron, the instructional interventionist. It was agreed that the patient would be admitted to the intensive care service. Initial Documented Vital Signs Temperature 101.6 F H 04/28/18 23:26 Pulse Rate 147 H 04/28/18 23:26 Respiratory Rate 20 04/28/18 23:26 Blood Pressure 111/76 04/28/18 23:26 Pulse Oximetry 95 04/28/18 23:26 Last Documented Vital Signs Temperature 98.9 F 04/29/18 16:00 Pulse Rate 113 H 04/29/18 18:00 Respiratory Rate 18 04/29/18 18:00 Blood Pressure 113/80 04/29/18 18:00 Pulse Oximetry 98 04/29/18 18:00 Critical Care Time Critical Care Time: Yes Total Critical Care Time: 42 Attestation: Aggregate critical care time was 42 minutes. Time to perform other separately billable procedures was not included in the critical care time. My time did not include minutes spent treating any other patients simultaneously or on activities that did not directly contribute to the patient's treatment. The services I provided to this patient were to treat and/or prevent clinically significant deterioration that could result in: Respiratory failure, versus cardiovascular collapse from sepsis, versus I provided critical care services requiring my management, as noted below: Chart data review, documentation time, medication orders and management, vital sign assessments/reviewing monitor data, ordering and reviewing lab tests, ordering and interpreting/reviewing x-rays and diagnostic studies, care of the patient and discussion of the patient with the admitting physicians. Medical Decision Making MDM Narrative Medical decision making narrative: During the course of the patient's emergency department visit, the patient's history, examination, and differential diagnosis were reviewed with the patient. The patient was placed on a rn cardiac with oximetry and frequent blood pressure monitoring. The patient had IV access obtained and blood work sent for analysis. A diagnostic evaluation was started regarding the patient's left posterior upper chest pain, fever on chemotherapy. A review of the patient's electronic medical record reveals that the patient earlier today was found to be neutropenic with a white count of 0.2, neutrophil number of 0.1. The patient was immediately started on normal saline IV fluid bolus due to suspected neutropenic sepsis, and broad-spectrum antibiotics to include cefepime 2 g IV. The patient was also noted in the blood work from earlier today to have hemoglobin of 8, platelets of 16. The patient was typed and screened in anticipation of blood product administration. The patient was given Tylenol for fever. The patient was placed on supplemental oxygen. The patient was maintaining his O2 saturation. The patient's heart rate began to come down. Diagnostic studies during this emergency department visit revealed a white count again of 0.2, hemoglobin 7.7, therefore 1 pack of red blood cells will be administered, platelets 6, therefore a platelet pheresis will be administered neutrophil number is 0.2. Neutropenic precautions will be provided. Chemistries remarkable for a glucose of 128, calcium 8.3, AST 40, alk phos 185, albumin 2.2. A chest x-ray revealed near complete opacification of the right hemithorax and slight increase when compared to the prior study of April 19, 2018, new pot new mildly patchy opacity at the left lung base. CTA to rule out PE shows no evidence of pulmonary embolism, moderate size right pleural effusion again seen along with scattered gas within the pleural effusion, extensive diffuse right lung consolidation again seen, moderate severity multifocal patchy consolidation in the left lung that is new. Moderate size pericardial effusion increased in size when compared to the prior study. The patient's case including history, pertinent physical examination findings, and laboratory studies were discussed with Dr. Herron, the instructional interventionist. It was agreed that the patient would be admitted to the the instructional interventionist's service. The patient's results were discussed with the patient, including the plan of care. I explained that further testing and/ or monitoring is indicated based on the patient's history, examination, and/ or laboratory findings. Therefore, I recommended admission for additional evaluation. The patient expressed understanding and was agreeable with this plan. The patient was admitted to the hospital in critical condition and sent to a bed under the care of the instructional interventionist's service. Medical Screen Exam Complete: Yes Emergency Medical Condition: Yes Differential Diagnosis Differential Diagnosis: PE, versus pneumonia, versus neutropenic fever Medical Records Medical records reviewed: Yes I reviewed the patient's medical records. Lab Data Lab results reviewed: Yes I reviewed the patient's lab results. Result diagrams: 04/29/18 15:05 04/28/18 23:45 Lab Results 04/28/18 04/28/18 04/28/18 Range/Units 23:40 23:45 23:45 WBC (4.0-11.0) th/mm3 RBC (4.50-5.90) mil/mm3 Hgb (13.0-17.0) gm/dL Hct (39.0-51.0) % MCV (80.0-100.0) fL MCH (27.0-34.0) pg MCHC (32.0-36.0) % RDW (11.6-17.2) % Plt Count (150-450) th/mm3 MPV (7.0-11.0) fL Prelim Diff (Auto) Neut % (Auto) (16.0-70.0) % Lymph % (Auto) (9.0-44.0) % Pettis % (Auto) (0.0-8.0) % Eos % (Auto) (0.0-4.0) % Baso % (Auto) (0.0-2.0) % Neut # (Auto) (1.8-7.7) th/mm3 Lymph # (Auto) (1.0-4.8) th/mm3 Pettis # (Auto) (0.0-0.9) th/mm3 Eos # (Auto) (0.0-0.4) th/mm3 Baso # (Auto) (0.0-0.2) th/mm3 WBC Differential Seg Neuts % (Manual) (16-70) % Band Neuts % (Manual) (0-6) % Lymphocytes % (Manual) (9-44) % Monocytes % (Manual) (0-8) % Metamyelocytes % (Man) (0-1) % Myelocytes % (Man) (0-0) % Promyelocytes % (Man) (0-0) % Abs Neuts (Manual) (1.8-7.7) th/mm3 Differential Comment Toxic Granulation (None) Platelet Estimate (Normal) Platelet Morphology (Normal) Spherocytes (None) Ovalocytes (None) PT 11.2 (9.8-11.6) sec INR 1.1 Ratio APTT 33.1 H (23.4-31.7) sec Sodium (136-145) meq/L Potassium (3.5-5.1) meq/L Chloride (98-107) meq/L Carbon Dioxide (21.0-32.0) meq/L Anion Gap (5-15) meq/L BUN (7-18) mg/dL Creatinine (0.60-1.30) mg/dL Estimated GFR (>89) mL/min POC Glucose (68-110) mg/dl Random Glucose (74-106) mg/dL Lactic Acid 1.1 (0.4-2.0) mmol/L Calcium (8.5-10.1) mg/dL Magnesium (1.5-2.5) mg/dL Total Bilirubin (0.2-1.0) mg/dL AST (15-37) U/L ALT (12-78) U/L Alkaline Phosphatase (45-117) U/L Total Creatine Kinase 78 (39-308) U/L Troponin I Less than 0.02 L (0.02-0.05) ng/mL Total Protein (6.4-8.2) g/dL Albumin (3.4-5.0) g/dL Prealbumin (20-40) mg/dL Lipase 103 (73-393) U/L Urine Color (Yellw/Straw) Urine Clarity (Clear) Urine pH (5.0-8.5) Ur Specific [place] (1.002-1.035) Urine Protein (Neg-Trace) mg/dL Urine Glucose (UA) (Negative) mg/dL Urine Ketones (Negative) mg/dL Urine Occult Blood (Negative) Urine Nitrate (Negative) Urine Bilirubin (Negative) Urine Ictotest (Negative) Urine Urobilinogen (Less than 2) mg/dL Ur Leukocyte Esterase (Negative) Urine RBC (0-3) /hpf Urine WBC (0-5) /hpf Ur Squamous Epith Cells (0-5) /hpf Urine Mucus (Occasional) /lpf Micro UA Comment Ur Microscopic Review Urine Culture Comments Nasal Screen MRSA (PCR) (Negative) MTS Gel Crossmatch Bld Prod Order Comment 04/28/18 04/28/18 04/28/18 Range/Units 23:45 23:45 23:45 WBC 0.2 L (4.0-11.0) th/mm3 RBC 3.09 L (4.50-5.90) mil/mm3 Hgb 7.7 L (13.0-17.0) gm/dL Hct 22.2 L (39.0-51.0) % MCV 71.8 L (80.0-100.0) fL MCH 24.9 L (27.0-34.0) pg MCHC 34.6 (32.0-36.0) % RDW 17.8 H (11.6-17.2) % Plt Count 6 L* D (150-450) th/mm3 MPV 8.7 (7.0-11.0) fL Prelim Diff (Auto) Manual diff required Neut % (Auto) (16.0-70.0) % Lymph % (Auto) (9.0-44.0) % Pettis % (Auto) (0.0-8.0) % Eos % (Auto) (0.0-4.0) % Baso % (Auto) (0.0-2.0) % Neut # (Auto) (1.8-7.7) th/mm3 Lymph # (Auto) (1.0-4.8) th/mm3 Pettis # (Auto) (0.0-0.9) th/mm3 Eos # (Auto) (0.0-0.4) th/mm3 Baso # (Auto) (0.0-0.2) th/mm3 WBC Differential Manual diff final Seg Neuts % (Manual) 50 (16-70) % Band Neuts % (Manual) 20 H (0-6) % Lymphocytes % (Manual) 10 (9-44) % Monocytes % (Manual) 10 H (0-8) % Metamyelocytes % (Man) 10 H (0-1) % Myelocytes % (Man) (0-0) % Promyelocytes % (Man) (0-0) % Abs Neuts (Manual) 0.2 L* (1.8-7.7) th/mm3 Differential Comment . Toxic Granulation (None) Platelet Estimate Low L (Normal) Platelet Morphology Normal (Normal) Spherocytes 1+ H (None) Ovalocytes 2+ H (None) PT (9.8-11.6) sec INR Ratio APTT (23.4-31.7) sec Sodium 136 (136-145) meq/L Potassium 3.9 (3.5-5.1) meq/L Chloride 99 (98-107) meq/L Carbon Dioxide 26.8 (21.0-32.0) meq/L Anion Gap 10 (5-15) meq/L BUN 12 (7-18) mg/dL Creatinine 0.83 (0.60-1.30) mg/dL Estimated GFR Greater than 89 (>89) mL/min POC Glucose (68-110) mg/dl Random Glucose 128 H (74-106) mg/dL Lactic Acid (0.4-2.0) mmol/L Calcium 8.3 L (8.5-10.1) mg/dL Magnesium 1.7 (1.5-2.5) mg/dL Total Bilirubin 1.0 (0.2-1.0) mg/dL AST 40 H (15-37) U/L ALT 44 (12-78) U/L Alkaline Phosphatase 185 H (45-117) U/L Total Creatine Kinase (39-308) U/L Troponin I (0.02-0.05) ng/mL Total Protein 7.0 (6.4-8.2) g/dL Albumin 2.2 L (3.4-5.0) g/dL Prealbumin 14 L (20-40) mg/dL Lipase (73-393) U/L Urine Color (Yellw/Straw) Urine Clarity (Clear) Urine pH (5.0-8.5) Ur Specific [place] (1.002-1.035) Urine Protein (Neg-Trace) mg/dL Urine Glucose (UA) (Negative) mg/dL Urine Ketones (Negative) mg/dL Urine Occult Blood (Negative) Urine Nitrate (Negative) Urine Bilirubin (Negative) Urine Ictotest (Negative) Urine Urobilinogen (Less than 2) mg/dL Ur Leukocyte Esterase (Negative) Urine RBC (0-3) /hpf Urine WBC (0-5) /hpf Ur Squamous Epith Cells (0-5) /hpf Urine Mucus (Occasional) /lpf Micro UA Comment Ur Microscopic Review Urine Culture Comments Nasal Screen MRSA (PCR) (Negative) MTS Gel Crossmatch Bld Prod Order Comment 04/29/18 04/29/18 04/29/18 Range/Units 00:14 00:15 04:55 WBC (4.0-11.0) th/mm3 RBC (4.50-5.90) mil/mm3 Hgb (13.0-17.0) gm/dL Hct (39.0-51.0) % MCV (80.0-100.0) fL MCH (27.0-34.0) pg MCHC (32.0-36.0) % RDW (11.6-17.2) % Plt Count (150-450) th/mm3 MPV (7.0-11.0) fL Prelim Diff (Auto) Neut % (Auto) (16.0-70.0) % Lymph % (Auto) (9.0-44.0) % Pettis % (Auto) (0.0-8.0) % Eos % (Auto) (0.0-4.0) % Baso % (Auto) (0.0-2.0) % Neut # (Auto) (1.8-7.7) th/mm3 Lymph # (Auto) (1.0-4.8) th/mm3 Pettis # (Auto) (0.0-0.9) th/mm3 Eos # (Auto) (0.0-0.4) th/mm3 Baso # (Auto) (0.0-0.2) th/mm3 WBC Differential Seg Neuts % (Manual) (16-70) % Band Neuts % (Manual) (0-6) % Lymphocytes % (Manual) (9-44) % Monocytes % (Manual) (0-8) % Metamyelocytes % (Man) (0-1) % Myelocytes % (Man) (0-0) % Promyelocytes % (Man) (0-0) % Abs Neuts (Manual) (1.8-7.7) th/mm3 Differential Comment Toxic Granulation (None) Platelet Estimate (Normal) Platelet Morphology (Normal) Spherocytes (None) Ovalocytes (None) PT (9.8-11.6) sec INR Ratio APTT (23.4-31.7) sec Sodium (136-145) meq/L Potassium (3.5-5.1) meq/L Chloride (98-107) meq/L Carbon Dioxide (21.0-32.0) meq/L Anion Gap (5-15) meq/L BUN (7-18) mg/dL Creatinine (0.60-1.30) mg/dL Estimated GFR (>89) mL/min POC Glucose (68-110) mg/dl Random Glucose (74-106) mg/dL Lactic Acid (0.4-2.0) mmol/L Calcium (8.5-10.1) mg/dL Magnesium (1.5-2.5) mg/dL Total Bilirubin (0.2-1.0) mg/dL AST (15-37) U/L ALT (12-78) U/L Alkaline Phosphatase (45-117) U/L Total Creatine Kinase (39-308) U/L Troponin I (0.02-0.05) ng/mL Total Protein (6.4-8.2) g/dL Albumin (3.4-5.0) g/dL Prealbumin (20-40) mg/dL Lipase (73-393) U/L Urine Color (Yellw/Straw) Urine Clarity (Clear) Urine pH (5.0-8.5) Ur Specific [place] (1.002-1.035) Urine Protein (Neg-Trace) mg/dL Urine Glucose (UA) (Negative) mg/dL Urine Ketones (Negative) mg/dL Urine Occult Blood (Negative) Urine Nitrate (Negative) Urine Bilirubin (Negative) Urine Ictotest (Negative) Urine Urobilinogen (Less than 2) mg/dL Ur Leukocyte Esterase (Negative) Urine RBC (0-3) /hpf Urine WBC (0-5) /hpf Ur Squamous Epith Cells (0-5) /hpf Urine Mucus (Occasional) /lpf Micro UA Comment Ur Microscopic Review Urine Culture Comments Nasal Screen MRSA (PCR) Not detected (Negative) MTS Gel Crossmatch See Detail Bld Prod Order Comment 04/29/18 04/29/18 04/29/18 Range/Units 05:01 05:22 09:29 WBC 0.1 L (4.0-11.0) th/mm3 RBC 2.66 L (4.50-5.90) mil/mm3 Hgb 6.9 L* (13.0-17.0) gm/dL Hct 20.1 L* (39.0-51.0) % MCV 75.4 L D (80.0-100.0) fL MCH 26.1 L (27.0-34.0) pg MCHC 34.6 (32.0-36.0) % RDW 17.3 H (11.6-17.2) % Plt Count 12 L* D (150-450) th/mm3 MPV 8.8 (7.0-11.0) fL Prelim Diff (Auto) Manual diff required Neut % (Auto) (16.0-70.0) % Lymph % (Auto) (9.0-44.0) % Pettis % (Auto) (0.0-8.0) % Eos % (Auto) (0.0-4.0) % Baso % (Auto) (0.0-2.0) % Neut # (Auto) (1.8-7.7) th/mm3 Lymph # (Auto) (1.0-4.8) th/mm3 Pettis # (Auto) (0.0-0.9) th/mm3 Eos # (Auto) (0.0-0.4) th/mm3 Baso # (Auto) (0.0-0.2) th/mm3 WBC Differential Manual diff final Seg Neuts % (Manual) 68 (16-70) % Band Neuts % (Manual) 22 H (0-6) % Lymphocytes % (Manual) 2 L (9-44) % Monocytes % (Manual) 4 (0-8) % Metamyelocytes % (Man) (0-1) % Myelocytes % (Man) 2 H (0-0) % Promyelocytes % (Man) 2 H (0-0) % Abs Neuts (Manual) 0.1 L* (1.8-7.7) th/mm3 Differential Comment . Toxic Granulation 2+ H (None) Platelet Estimate Rare L (Normal) Platelet Morphology Normal (Normal) Spherocytes 1+ H (None) Ovalocytes 1+ H (None) PT (9.8-11.6) sec INR Ratio APTT (23.4-31.7) sec Sodium (136-145) meq/L Potassium (3.5-5.1) meq/L Chloride (98-107) meq/L Carbon Dioxide (21.0-32.0) meq/L Anion Gap (5-15) meq/L BUN (7-18) mg/dL Creatinine (0.60-1.30) mg/dL Estimated GFR (>89) mL/min POC Glucose 118 H (68-110) mg/dl Random Glucose (74-106) mg/dL Lactic Acid (0.4-2.0) mmol/L Calcium (8.5-10.1) mg/dL Magnesium (1.5-2.5) mg/dL Total Bilirubin (0.2-1.0) mg/dL AST (15-37) U/L ALT (12-78) U/L Alkaline Phosphatase (45-117) U/L Total Creatine Kinase (39-308) U/L Troponin I (0.02-0.05) ng/mL Total Protein (6.4-8.2) g/dL Albumin (3.4-5.0) g/dL Prealbumin (20-40) mg/dL Lipase (73-393) U/L Urine Color (Yellw/Straw) Urine Clarity (Clear) Urine pH (5.0-8.5) Ur Specific [place] (1.002-1.035) Urine Protein (Neg-Trace) mg/dL Urine Glucose (UA) (Negative) mg/dL Urine Ketones (Negative) mg/dL Urine Occult Blood (Negative) Urine Nitrate (Negative) Urine Bilirubin (Negative) Urine Ictotest (Negative) Urine Urobilinogen (Less than 2) mg/dL Ur Leukocyte Esterase (Negative) Urine RBC (0-3) /hpf Urine WBC (0-5) /hpf Ur Squamous Epith Cells (0-5) /hpf Urine Mucus (Occasional) /lpf Micro UA Comment Ur Microscopic Review Urine Culture Comments Nasal Screen MRSA (PCR) (Negative) MTS Gel Crossmatch See Detail Bld Prod Order Comment 04/29/18 04/29/18 04/29/18 Range/Units 09:50 12:34 15:05 WBC 0.5 L D (4.0-11.0) th/mm3 RBC 2.72 L (4.50-5.90) mil/mm3 Hgb 7.4 L (13.0-17.0) gm/dL Hct 20.6 L* (39.0-51.0) % MCV 75.8 L (80.0-100.0) fL MCH 27.2 (27.0-34.0) pg MCHC 35.9 (32.0-36.0) % RDW 16.4 (11.6-17.2) % Plt Count 18 L* D (150-450) th/mm3 MPV 10.1 (7.0-11.0) fL Prelim Diff (Auto) Slide review pending Neut % (Auto) 91.2 H (16.0-70.0) % Lymph % (Auto) 1.5 L (9.0-44.0) % Pettis % (Auto) 7.1 (0.0-8.0) % Eos % (Auto) 0.2 (0.0-4.0) % Baso % (Auto) 0.0 (0.0-2.0) % Neut # (Auto) 0.4 L* (1.8-7.7) th/mm3 Lymph # (Auto) 0.0 L (1.0-4.8) th/mm3 Pettis # (Auto) 0.0 (0.0-0.9) th/mm3 Eos # (Auto) 0.0 (0.0-0.4) th/mm3 Baso # (Auto) 0.0 (0.0-0.2) th/mm3 WBC Differential Manual diff final Seg Neuts % (Manual) 60 (16-70) % Band Neuts % (Manual) 35 H (0-6) % Lymphocytes % (Manual) (9-44) % Monocytes % (Manual) (0-8) % Metamyelocytes % (Man) 5 H (0-1) % Myelocytes % (Man) (0-0) % Promyelocytes % (Man) (0-0) % Abs Neuts (Manual) 0.5 L* (1.8-7.7) th/mm3 Differential Comment . Toxic Granulation (None) Platelet Estimate Low L (Normal) Platelet Morphology Normal (Normal) Spherocytes (None) Ovalocytes 1+ H (None) PT (9.8-11.6) sec INR Ratio APTT (23.4-31.7) sec Sodium (136-145) meq/L Potassium (3.5-5.1) meq/L Chloride (98-107) meq/L Carbon Dioxide (21.0-32.0) meq/L Anion Gap (5-15) meq/L BUN (7-18) mg/dL Creatinine (0.60-1.30) mg/dL Estimated GFR (>89) mL/min POC Glucose 165 H (68-110) mg/dl Random Glucose (74-106) mg/dL Lactic Acid (0.4-2.0) mmol/L Calcium (8.5-10.1) mg/dL Magnesium (1.5-2.5) mg/dL Total Bilirubin (0.2-1.0) mg/dL AST (15-37) U/L ALT (12-78) U/L Alkaline Phosphatase (45-117) U/L Total Creatine Kinase (39-308) U/L Troponin I (0.02-0.05) ng/mL Total Protein (6.4-8.2) g/dL Albumin (3.4-5.0) g/dL Prealbumin (20-40) mg/dL Lipase (73-393) U/L Urine Color [place] (Yellw/Straw) Urine Clarity Hazy H (Clear) Urine pH 5.0 (5.0-8.5) Ur Specific [place] 1.059 H (1.002-1.035) Urine Protein 100 H (Neg-Trace) mg/dL Urine Glucose (UA) Negative (Negative) mg/dL Urine Ketones Trace H (Negative) mg/dL Urine Occult Blood Negative (Negative) Urine Nitrate Negative (Negative) Urine Bilirubin Negative (Negative) Urine Ictotest Negative (Negative) Urine Urobilinogen 0.2 (Less than 2) mg/dL Ur Leukocyte Esterase Negative (Negative) Urine RBC 6 H (0-3) /hpf Urine WBC 8 H (0-5) /hpf Ur Squamous Epith Cells <1 (0-5) /hpf Urine Mucus Few H (Occasional) /lpf Micro UA Comment Culture not ind Ur Microscopic Review Not Reportable Urine Culture Comments Culture not ind Nasal Screen MRSA (PCR) (Negative) MTS Gel Crossmatch Bld Prod Order Comment 04/29/18 Range/Units 18:25 WBC (4.0-11.0) th/mm3 RBC (4.50-5.90) mil/mm3 Hgb (13.0-17.0) gm/dL Hct (39.0-51.0) % MCV (80.0-100.0) fL MCH (27.0-34.0) pg MCHC (32.0-36.0) % RDW (11.6-17.2) % Plt Count (150-450) th/mm3 MPV (7.0-11.0) fL Prelim Diff (Auto) Neut % (Auto) (16.0-70.0) % Lymph % (Auto) (9.0-44.0) % Pettis % (Auto) (0.0-8.0) % Eos % (Auto) (0.0-4.0) % Baso % (Auto) (0.0-2.0) % Neut # (Auto) (1.8-7.7) th/mm3 Lymph # (Auto) (1.0-4.8) th/mm3 Pettis # (Auto) (0.0-0.9) th/mm3 Eos # (Auto) (0.0-0.4) th/mm3 Baso # (Auto) (0.0-0.2) th/mm3 WBC Differential Seg Neuts % (Manual) (16-70) % Band Neuts % (Manual) (0-6) % Lymphocytes % (Manual) (9-44) % Monocytes % (Manual) (0-8) % Metamyelocytes % (Man) (0-1) % Myelocytes % (Man) (0-0) % Promyelocytes % (Man) (0-0) % Abs Neuts (Manual) (1.8-7.7) th/mm3 Differential Comment Toxic Granulation (None) Platelet Estimate (Normal) Platelet Morphology (Normal) Spherocytes (None) Ovalocytes (None) PT (9.8-11.6) sec INR Ratio APTT (23.4-31.7) sec Sodium (136-145) meq/L Potassium (3.5-5.1) meq/L Chloride (98-107) meq/L Carbon Dioxide (21.0-32.0) meq/L Anion Gap (5-15) meq/L BUN (7-18) mg/dL Creatinine (0.60-1.30) mg/dL Estimated GFR (>89) mL/min POC Glucose 109 (68-110) mg/dl Random Glucose (74-106) mg/dL Lactic Acid (0.4-2.0) mmol/L Calcium (8.5-10.1) mg/dL Magnesium (1.5-2.5) mg/dL Total Bilirubin (0.2-1.0) mg/dL AST (15-37) U/L ALT (12-78) U/L Alkaline Phosphatase (45-117) U/L Total Creatine Kinase (39-308) U/L Troponin I (0.02-0.05) ng/mL Total Protein (6.4-8.2) g/dL Albumin (3.4-5.0) g/dL Prealbumin (20-40) mg/dL Lipase (73-393) U/L Urine Color (Yellw/Straw) Urine Clarity (Clear) Urine pH (5.0-8.5) Ur Specific [place] (1.002-1.035) Urine Protein (Neg-Trace) mg/dL Urine Glucose (UA) (Negative) mg/dL Urine Ketones (Negative) mg/dL Urine Occult Blood (Negative) Urine Nitrate (Negative) Urine Bilirubin (Negative) Urine Ictotest (Negative) Urine Urobilinogen (Less than 2) mg/dL Ur Leukocyte Esterase (Negative) Urine RBC (0-3) /hpf Urine WBC (0-5) /hpf Ur Squamous Epith Cells (0-5) /hpf Urine Mucus (Occasional) /lpf Micro UA Comment Ur Microscopic Review Urine Culture Comments Nasal Screen MRSA (PCR) (Negative) MTS Gel Crossmatch Bld Prod Order Comment Imaging Data Radiologist's impression: Chest X-Ray 04/28/18 23:38 CONCLUSION: 1. Near complete opacification of the right hemithorax with slight increase when compared to the prior study of 04/19/2018. 2. New mild patchy opacity at the left lung base. Chest CTA 04/29/18 00:00 CONCLUSION: 1. No evidence of pulmonary embolus. 2. Moderate-sized right pleural effusion again seen along with scattered gas within the pleural effusion. 3. Extensive diffuse right lung consolidation again seen. 4. Moderate severity multifocal patchy consolidation in the left lung is new. 5. Moderate-sized pericardial effusion, increased in size when compared to the prior study. ECG Data Attestation: I personally reviewed and interpreted this ECG as follows: Interpretation: The patient has an EKG done on arrival that shows sinus tachycardia rate of 153, QRS duration 91 ms, QTC [address] segment elevation. An incomplete right bundle branch block is noted. Discharge Plan Discharge Disposition Patient Disposition: ED Admit(ED Internal Use Only) Discharge Order Discharge Orders: ED Use Only Admit Order (Routine); Ordered 04/29/18 Ordered By: Johanna Heart Discharge Details Diagnosis: Neutropenic sepsis Physicians Team ED Provider: Johanna Heart Primary Care Provider: Bienvenido Guzman Attending Provider: Amanda Gallegos Other Providers: Amanda Gallegos ; Aysha Leigh Franklyn Status ED Status: Left Department Discharge Information Discharge Date/Time: 04/29/18 04:22
[2018-04-29 00:04] LABS: Hematocrit 22.2 % (39.0-51.0); Hemoglobin 7.7 gm/dL (13.0-17.0); Mean Corpuscular HGB Conc 34.6 % (32.0-36.0); Mean Corpuscular Hemoglobin 24.9 pg (27.0-34.0); Mean Corpuscular Volume 71.8 fL (80.0-100.0); Mean Platelet Volume 8.7 fL (7.0-11.0); Red Blood Count 3.09 mil/mm3 (4.50-5.90); Red Cell Distribution Width 17.8 % (11.6-17.2); White Blood Count 0.2 th/mm3 (4.0-11.0)
[2018-04-29 00:06] LABS: Activated Partial Thrombo Time 33.1 sec (23.4-31.7); INR 1.1 Ratio; Prothrombin Time 11.2 sec (9.8-11.6)
[2018-04-29 00:12] LABS: Alanine Aminotransferase 44 U/L (12-78); Albumin 2.2 g/dL (3.4-5.0); Anion Gap 10 meq/L (5-15); Aspartate Aminotransferase 40 U/L (15-37); Blood Urea Nitrogen 12 mg/dL (7-18); Calcium 8.3 mg/dL (8.5-10.1); Carbon Dioxide 26.8 meq/L (21.0-32.0); Chloride 99 meq/L (98-107); Glomerular Filtration Rate Greater Than 89 mL/min (>89); Glucose,Random 128 mg/dL (74-106); Lipase 103 U/L (73-393); Magnesium 1.7 mg/dL (1.5-2.5); Potassium 3.9 meq/L (3.5-5.1); Sodium 136 meq/L (136-145)
[2018-04-29 00:13] LABS: Platelet Count 6 th/mm3 (150-450)
[2018-04-29 00:14] LABS: Alkaline Phosphatase 185 U/L (45-117)
[2018-04-29 00:16] LABS: Creatine Kinase 78 U/L (39-308)
--- NOTE | 2018-04-29 00:19 | XR ---
EXAM DATE: 04/29/2018 12:02 AM EST AGE/SEX: 43 years / Male INDICATIONS: Short of breath. CLINICAL DATA: This is the patient's sequela encounter. Patient reports that signs and symptoms have been present for 1 week and indicates a pain score of 0/10. MEDICAL/SURGICAL HISTORY: . Chemotherapy. Blood clots. Lymphoma. . Thoracentesis . [place] [facility] [place]. . FINDINGS: Single AP view the chest. Right-sided dual-lumen IJ central venous catheter remains in place. There i s near complete opacification of the right hemithorax, increased from the prior study. Mild patchy op acity at the left lung base is new. Cardiomediastinal silhouette is unchanged. No evidence of pneumot horax. CONCLUSION: 1. Near complete opacification of the right hemithorax with slight increase when compared to the bjorn or study of 04/19/2018. 2. New mild patchy opacity at the left lung base. Electronically signed by: Miguel Sena MD 04/29/2018 12:18 AM EST
[2018-04-29] MEDS ORDERED: Sodium Chlor 0.9% Inj 250 ML IV.SIG SCH ×3 (01:00→20:00)
[2018-04-29 01:18] LABS: Lymphocytes 10 % (9-44); Metamyelocytes 10 % (0-1); Monocytes 10 % (0-8)
[2018-04-29 01:19] LABS: Ovalocytes 2+; Platelet Morphology Normal (Normal); Spherocytes 1+
--- NOTE | 2018-04-29 01:35 | CT ---
EXAM DATE: 04/29/2018 1:19 AM EST AGE/SEX: 43 years / Male INDICATIONS: Chest pain; rule out pulmonary embolus. CLINICAL DATA: This is the patient's initial encounter. Patient reports that signs and symptoms have been present for 1 day and indicates a pain score of 7/10. MEDICAL/SURGICAL HISTORY: Lymphoma. . prior chest tube RADIATION DOSE: 10.51 CTDI (mGy) [place] [facility] [place]. . TECHNIQUE: Volumetric scanning was performed using a multi-row detector CT scanner during bolus infu jovan of 76 ml Omnipaque 350 (iohexol) nonionic water-soluble contrast as a single exam dose. The tamera a was post processed with a variety of visualization algorithms including full volume maximum intensi ty projection and sliding thin slab reformation. Using automated exposure control and adjustment of the mA and/or kV according to patient size, radiation dose was kept as low as reasonably achievable t o obtain optimal diagnostic quality images. DICOM format image data is available electronically for review and comparison. FINDINGS: Right sided chest tube is in place with the tip abutting the diaphragmatic pleura inferiorly. There i s a moderate-sized right pleural effusion with scattered bubbles of gas seen within the effusion. Dif fuse volume loss of the right lung with extensive right lung consolidation and air bronchograms. When compared to the prior CT of 04/13/2018, there is increased aeration of the right lung. The size of t he pleural effusion is smaller than on the comparison study. New moderate severity scattered areas of pulmonary consolidation and adjacent groundglass opacity in the left lower lobe and several small patchy areas of opacity in the left upper lobe. No evidence of left pleural effusion. No filling defects in the pulmonary arteries to suggest pulmonary embolus. Moderate-sized pericardial effusion, increased from the prior study. No enlarged lymph nodes. The pre viously noted enlarged mediastinal lymph nodes have decreased in size. Aortic diameter within normal limits. CONCLUSION: 1. No evidence of pulmonary embolus. 2. Moderate-sized right pleural effusion again seen along with scattered gas within the pleural effu jovan. 3. Extensive diffuse right lung consolidation again seen. 4. Moderate severity multifocal patchy consolidation in the left lung is new. 5. Moderate-sized pericardial effusion, increased in size when compared to the prior study. Electronically signed by: Miguel Sena MD 04/29/2018 1:34 AM EST
[2018-04-29] MEDS ORDERED: Sod Chloride 0.9% Inj 1,000 ML IV.SIG ONE (01:46)
[2018-04-29] MEDS ORDERED: Azithromycin Inj 500 MG in Sodium Chlor 0.9% Inj 250 ML IV.SIG ONE (01:46)
[2018-04-29] MEDS ORDERED: Potassium Chloride 25 MEQ Effervescent Tablet PO PRN (01:51)
[2018-04-29] MEDS ORDERED: Magnesium Sulfate Inj 2 GM in Sodium Chlor 0.9% Inj 96 ML IV.SIG PRN (01:51)
[2018-04-29] MEDS ORDERED: Potassium Chlor 40 mEq Premix 40 MEQ/100 ML PIGGYBACK IV.SIG PRN ×2 (01:51)
[2018-04-29] MEDS ORDERED: HYDROmorphone PF Inj 1 MG/ML Ampul IV.PUSH PRN (01:51)
[2018-04-29] MEDS ORDERED: Dextrose 50% in Water 50 ML Vial IV.PUSH PRN (01:51)
[2018-04-29] MEDS ORDERED: Bisacodyl 10 MG Supp RECTAL PRN (01:51)
[2018-04-29] MEDS ORDERED: Potassium Phosphate Inj 30 MMOL in Sodium Chlor 0.9% Inj 250 ML IV.SIG PRN (01:51)
[2018-04-29] MEDS ORDERED: Potassium Chlor 20 mEq Premix 20 MEQ/100 ML PIGGYBACK IV.SIG PRN ×2 (01:51)
[2018-04-29] MEDS ORDERED: Sodium Phosphate Inj 30 MMOL in Sodium Chlor 0.9% Inj 250 ML IV.SIG PRN (01:51)
[2018-04-29] MEDS ORDERED: Magnesium Sulfate Inj 4 GM in Sodium Chlor 0.9% Inj 92 ML IV.SIG PRN (01:51)
[2018-04-29] MEDS ORDERED: Magnesium Oxide 400 MG Tablet PO PRN (01:51)
[2018-04-29] MEDS ORDERED: Potassium Phosphate 500 MG Soluble Tablet PO PRN ×2 (01:51)
--- NOTE | 2018-04-29 02:03 | P.HPCC ---
History of Present Illness Service: Critical care medicine Primary Care Physician: Bienvenido Guzman MD Chief Complaint: fever History of Present Illness: 43yM with history of non-Hodgkin's lymphoma presents with 1 day history of fever. seen in clinic yesterday. approximately 1 week s/p chemotherapy and pancytopenic. endorses cough, sob. denies n/v/c/d/abd pain. CT chest shows persistent known right-sided infiltrates related to prior pneumonitis from radiation. has pleurex catheter in place. febrile and hypotensive in ER which responded to ivf. received cefepime, azithromycin in the ER. remainder of ROS negative. Review of Systems All other systems reviewed negative except as stated in HPI PMFSH - History History Provided By: Patient, Medical Record - Medical History Medical History: Medical History (Last Reviewed 04/29/18 @ 01:58 by Yahir Herron MD) Hx of blood clots (Acute) Lymphoma (Chronic) Compression of intervertebral disc History of chemotherapy Meniscus degeneration Superior vena caval syndrome - Surgical History Surgical History: Surgical History (Last Reviewed 04/29/18 @ 01:58 by Yahir Herron MD) History of thoracentesis - Family History Family History: Family History (Last Reviewed 04/29/18 @ 01:58 by Yahir Herron MD) Other Coronary artery disease - Social History I have reviewed the patient's Social History: Yes - Tobacco History Second Hand Smoke Exposure: No Tobacco Use In Past 30 Days: No Smoking Status: Never smoker - Alcohol History How Often Do You Have a Drink Containing Alcohol: Never - Substance Use History Substance History: No History of Abuse - Travel History Recent Travel in the [place] Within the Last 8 Weeks: No Recent Travel Out of the Country Within the Last 8 Weeks: No - Immunization History Tetanus Immunization: <5 Years Medications and Allergies Active Medications: Active Medications Sodium Chloride (Ns Inj) 250 mls @ 15 mls/hr IV.SIG ONCE BANDAR Stop: 04/29/18 17:39 Last Infusion: 04/29/18 01:49 Dose: Infused Sodium Chloride (Ns Inj) 250 mls @ 15 mls/hr IV.SIG ONCE BANDAR Stop: 04/29/18 17:39 Azithromycin 500 mg/ Sodium (Chloride) 250 mls @ 250 mls/hr IV.SIG ONCE ONE Stop: 04/29/18 02:45 Allergies Allergy/AdvReac Type Severity Reaction Status Date / Time adhesive tape AdvReac Blister Verified 04/12/18 03:58 Home Medications Medication Instructions Recorded Confirmed Type albuterol sulfate 2 puff INHALATION Q4-6H PRN 12/13/17 04/28/18 History morphine 30 mg PO BID PRN 12/13/17 04/28/18 History prednisone 5 mg PO DAILY 04/08/18 04/28/18 History voriconazole [Vfend] 100 mg PO DAILY 04/08/18 04/28/18 History ibuprofen [Motrin IB] 600 mg PO Q4-6H PRN 04/15/18 04/28/18 History Results - Labs CBC & Chem 7: 04/28/18 23:45 04/28/18 23:45 Labs: Short CBC 04/28/18 Range/Units 23:45 WBC 0.2 L (4.0-11.0) th/mm3 Hgb 7.7 L (13.0-17.0) gm/dL Hct 22.2 L (39.0-51.0) % Plt Count 6 L* D (150-450) th/mm3 BMP 04/28/18 23:45 Sodium 136 Potassium 3.9 Chloride 99 Carbon Dioxide 26.8 BUN 12 Creatinine 0.83 Calcium 8.3 L Cardiac Enzymes 04/28/18 Range/Units 23:45 Total Creatine Kinase 78 (39-308) U/L Troponin I Less than 0.02 L (0.02-0.05) ng/mL Liver Function 04/28/18 Range/Units 23:45 Total Bilirubin 1.0 (0.2-1.0) mg/dL AST 40 H (15-37) U/L ALT 44 (12-78) U/L Alkaline Phosphatase 185 H (45-117) U/L Albumin 2.2 L (3.4-5.0) g/dL - Imaging Impressions Chest X-Ray 04/28/18 23:38 CONCLUSION: 1. Near complete opacification of the right hemithorax with slight increase when compared to the prior study of 04/19/2018. 2. New mild patchy opacity at the left lung base. Chest CTA 04/29/18 00:00 CONCLUSION: 1. No evidence of pulmonary embolus. 2. Moderate-sized right pleural effusion again seen along with scattered gas within the pleural effusion. 3. Extensive diffuse right lung consolidation again seen. 4. Moderate severity multifocal patchy consolidation in the left lung is new. 5. Moderate-sized pericardial effusion, increased in size when compared to the prior study. Exam Vital signs: Vital Signs 04/28/18 23:26 04/29/18 01:16 04/29/18 01:17 Temperature 38.7 C H 37.8 C H Pulse Rate 147 H 132 H 128 H Respiratory Rate 20 18 Blood Pressure 111/76 82/57 L Pulse Oximetry 95 93 L 04/29/18 01:30 04/29/18 01:33 04/29/18 01:42 Temperature Pulse Rate 130 H 127 H 13 L Respiratory Rate 18 18 18 Blood Pressure 83/57 L 83/57 L 91/60 L Pulse Oximetry 95 95 96 Intake & Output 04/28/18 04/28/18 04/29/18 06:59 18:59 06:59 Intake Total 1639 / 1639 Balance 1639 / 1639 Weight 90.718 kg Intake: IV 1350 / 1350 Maxipime Inj 2,000 MG In NS Inj 100 / 100 100 ML @ 200 mls/hr IV.SIG STAT STA Rx#:[id number] NS Inj 1,000 ML @ Wide Open IV. 1000 / 1000 SIG BOLUS ONE Rx#:[id number] NS Inj 250 ML @ 15 mls/hr IV. 250 / 250 SIG ONCE BANDAR Rx#:[id number] Intake (Blood Product) Amt 289 / 289 Plt Pheresis A Leukoreduced 289 / 289 Unit [id number] Narrative: GENERAL: Frail cachectic middle-aged male, lying in bed, in severe distress with rigors HEENT: Normocephalic. Atraumatic. Pupils equal, round, reactive, conjugate. Mucous membranes are dry NECK: Trachea is midline. There is no JVD. CHEST: Tachypneic. Labored. Coughing. Right lung with decreased breath sounds. CARDIOVASCULAR: Tachycardic rate in the 140s, regular rhythm. Sinus. ABDOMEN: Soft, nontender, nondistended. No guarding. MUSCULOSKELETAL: Pulses 2+. No peripheral edema. NEUROLOGICAL: RASS 0. CAM -. Follows commands in all 4 extremities. No focal deficits. Septic Shock Reassessment Septic shock perfusion: reassessment completed Caprini VTE Risk Assessment Caprini VTE Risk Assessment: Moderate/High Risk (score >= 2) VTE Pharmacological Exception Reason: Hemorrhage Caprini Risk Assessment Model: Point Value = 1 Point Value = 2 Point Value = 3 Point Value = 5 Age 41-60 Minor surgery BMI > 25 kg/m2 Swollen legs Varicose veins or History of unexplained or recurrent spontaneous Oral contraceptives or hormone replacement Sepsis (< 1 month) Serious lung disease, including pneumonia (< 1 month) Abnormal pulmonary function Acute myocardial infarction Congestive heart failure (< 1 month) History of inflammatory bowel disease Medical patient at bed rest Age 61-74 Arthroscopic surgery Major open surgery (> 45 min) Laparoscopic surgery (> 45 min) Malignancy Confined to bed (> 72 hours) Immobilizing plaster cast Central venous access Age >= 75 History of VTE Family history of VTE Factor V Leiden Prothrombin [id number] Lupus anticoagulant Anticardiolipin antibodies Elevated serum homocysteine Heparin-induced thrombocytopenia Other congenital or acquired thrombophilia Stroke (< 1 month) Elective arthroplasty Hip, pelvis, or leg fracture Acute spinal cord injury (< 1 month) Prophylaxis Regimen: Total Risk Factor Score Risk Level Prophylaxis Regimen 0-1 Low Early ambulation 2 Moderate Order ONE of the following: *Sequential Compression Device (SCD) *Heparin 5000 units SQ BID 3-4 Higher Order ONE of the following medications: *Heparin 5000 units SQ TID *Enoxaparin/Lovenox 40 mg SQ daily (WT < 150 kg, CrCl > 30 mL/min) *Enoxaparin/Lovenox 30 mg SQ daily (WT < 150 kg, CrCl > 10-29 mL/min) *Enoxaparin/Lovenox 30 mg SQ BID (WT < 150 kg, CrCl > 30 mL/min) AND/OR *Sequential Compression Device (SCD) 5 or more Highest Order ONE of the following medications: *Heparin 5000 units SQ TID (Preferred with Epidurals) *Enoxaparin/Lovenox 40 mg SQ daily (WT < 150 kg, CrCl > 30 mL/min) *Enoxaparin/Lovenox 30 mg SQ daily (WT < 150 kg, CrCl > 10-29 mL/min) *Enoxaparin/Lovenox 30 mg SQ BID (WT < 150 kg, CrCl > 30 mL/min) AND *Sequential Compression Device (SCD) Assessment and Plan - Assessment and Plan Plan: Assessment: 43yM with history of non-Hodgkin's lymphoma now with neutropenic severe sepsis. suspect pulmonary source given cough and SOB. admit to ICU. critically ill with high likelihood of secondary to neutropenic sepsis with organ dysfunction and hypotension. 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 low threshold to add vancomycin ivf resuscitation am cbc, bmp, mg, phos 1 unit platelets will hold off on transfusion of prbcs at this time: no active signs of bleeding oncology consultation: patient sees Dr. Leigh as an outpatient. neutropenic precautions trend lactates hold home Xarelto given thrombocytopenia. will need to restart once cell counts have improved and bleeding is less of a concern. protonix for GI ppx. [facility] [place]: 31 minutes, exclusive of separately billable procedures.
[2018-04-29] MEDS ORDERED: Chlorhexidine Gluconate 2% 1 Pack (2 Cloths) TOPICAL PRN (04:00)
[2018-04-29] MEDS: Pantoprazole Inj 40 MG Vial IV.PUSH SCH (05:14)
[2018-04-29] MEDS: Insulin NovoLIN Regular Correctional Sugar Inj SQ SCH ×4 (05:14→23:46)
[2018-04-29] MEDS: Chlorhexidine Gluconate 2% 1 Pack (2 Cloths) TOPICAL SCH (05:14)
[2018-04-29] MEDS: HYDROmorphone PF Inj 1 MG/ML Ampul IV.PUSH PRN ×4 (05:15→13:01)
[2018-04-29 06:28] LABS: Mean Corpuscular HGB Conc 34.6 % (32.0-36.0); Mean Corpuscular Hemoglobin 26.1 pg (27.0-34.0); Mean Corpuscular Volume 75.4 fL (80.0-100.0); Mean Platelet Volume 8.8 fL (7.0-11.0); Red Blood Count 2.66 mil/mm3 (4.50-5.90); Red Cell Distribution Width 17.3 % (11.6-17.2); White Blood Count 0.1 th/mm3 (4.0-11.0)
[2018-04-29 06:38] LABS: Hematocrit 20.1 % (39.0-51.0); Hemoglobin 6.9 gm/dL (13.0-17.0); Platelet Count 12 th/mm3 (150-450)
[2018-04-29 08:08] LABS: Lymphocytes 2 % (9-44); Monocytes 4 % (0-8); Myelocytes 2 % (0-0); Promyelocyte 2 % (0-0)
[2018-04-29 08:09] LABS: Ovalocytes 1+; Platelet Estimate Rare (Normal); Platelet Morphology Normal (Normal); Spherocytes 1+; Toxic Granulation 2+
[2018-04-29] MEDS: Senna/Docusate Sodium 8.6/50 MG Tablet PO SCH ×2 (08:12→20:03)
--- NOTE | 2018-04-29 08:25 | ECG ---
Date Performed: 04/28/2018 Time Performed: 23:28:07 PTAGE: 43 years EKG: SINUS TACHYCARDIA, POSSIBLE ATRIAL FLUTTER INCOMPLETE RIGHT BUNDLE BRANCH BLOCK NONSPECIFIC ST & T-WAVE ABNORMALITY ABNORMAL RHYTHM ECG INTERPRETATION BASED ON A DEFAULT AGE OF 40 YEARS PREVIOUS TRACING : 04/16/2018 10.35 DOCTOR: Nathan Vegas Interpretating Date/Time 04/29/2018 08:24:06
[2018-04-29] MEDS ORDERED: Vancomycin Consult Pharmacy OTHER PRN (09:26)
[2018-04-29] MEDS ORDERED: Vancomycin Inj 1,000 MG in Sodium Chlor 0.9% Inj 250 ML IV.SIG SCH (10:00)
[2018-04-29 11:44] LABS: Clarity,Urine Hazy (Clear); Color,Urine Amber (Yellw/Straw); Glucose,Urine (UA) Negative (Negative); Leukocyte Esterase,Urine Negative (Negative); Mucus,Urine Few /lpf (Occasional); Nitrite,Urine Negative (Negative); Specific Gravity,Urine 1.059 (1.002-1.035); Squamous Epithelial Cell,Urine <1 /hpf (0-5)
[2018-04-29 11:45] LABS: Bilirubin,Urine Negative (Negative); Ictotest,Urine Negative (Negative); Urobilinogen,Urine 0.2 mg/dL (Less than 2)
--- NOTE | 2018-04-29 11:51 | MB ---
cc: Tyrese Goodwin MD DATE: 04/29/2018 REQUESTING PHYSICIAN: Dr. Stockton. REASON: Neutropenic fever. 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 The patient has been undergoing chemotherapeutic treatments. He was noted to have recurrence of the T-cell lymphoma. He was admitted to the hospital on 04/28/2018. He last received chemotherapy approximately 10 days ago and he started to get fever and also developed chest pain and chills and presented to the emergency department for evaluation. The patient had a temperature of 101.6 in the emergency department and the heart rate was 147. His white blood cell count was low at 0.2. His platelet count was also low at 6. Chest x-ray shows near complete opacification of the right hemithorax with slight increase when compared to prior study of 04/19/2018. The patient has been known to have opacification of the right hemithorax and he has had multiple thoracenteses for pleural effusion. He reports to me that he coughs up slight yellow sputum occasionally and that he has been having chills over the last few nights and also has been feeling very tired. He saw his oncologist and was given a shot of Neupogen yesterday, and he said that he just felt so sick that he could not remain at home and presented to the emergency department for evaluation. He reports the pain is at the posterior aspect of the left chest. The patient also reports that he has had some nose bleeding over the past 2 days and that there was some blood-tinged sputum, which he feels is likely related to the nosebleed. He has had occasional dry cough and soreness of the throat and body aches. The patient has been started on antibiotics. His white count today is 0.1, and the platelet count is 12. His hemoglobin also dropped to 6.9. He is currently receiving blood transfusion. PAST MEDICAL HISTORY: T-cell lymphoblastic lymphoma. The patient has been receiving chemotherapy. Also, asthma, herniated disks, pleural effusion, pneumonia in 2017. ALLERGIES: NO KNOWN DRUG ALLERGIES. MEDICATIONS: 1. Cefepime. 2. Vancomycin. 3. Dilaudid. 4. Insulin. 5. Oxycodone. 6. Protonix. 7. Neupogen. SOCIAL HISTORY: Denies alcohol. Denies tobacco. Denies illicit drugs. FAMILY HISTORY: Noncontributory. REVIEW OF SYSTEMS: All systems have been reviewed. Pertinent features mentioned in history of present illness. PHYSICAL EXAMINATION: GENERAL: He is a well-developed male who appears somewhat lethargic. VITAL SIGNS: Temperature 99.1, BP 105/67, respirations 20, heart rate 123. HEENT: The head is atraumatic. Extraocular movements grossly intact. Pupils reactive to light. The pupils are constricted. No icterus. No conjunctival erythema. Oropharynx moist mucosa without visible lesions. There is a scabbed, dried lesion in the mid aspect of the lower lip. NECK: Supple without adenopathy. LUNGS: Rhonchi at the right lung. Left lung sounds appear clear. HEART: Regular S1 and S2, without audible murmurs. ABDOMEN: Bowel sounds present. Soft, mildly obese, nontender. RECTAL: Not performed. EXTREMITIES: No clubbing or cyanosis or edema. SKIN: No rash. The skin is warm and moist. NEUROLOGIC: No gross focal finding. PSYCHIATRIC: The patient is calm and cooperative. LABORATORY DATA: WBC is 0.1, platelet count is 12. BUN 12, creatinine 0.83. Estimated GFR greater than 89. AST 40, ALT 44. Lactic acid 1.1. CT of the chest showed no evidence of pulmonary embolism. Moderate right pleural effusion noted along with scattered gas within the pleural effusion and extensive diffuse right lung consolidation is noted. There is noted to be moderate severity multifocal patchy consolidation in the left lung. IMPRESSION: 1. Neutropenia and fever. 2. T-cell lymphoblastic lymphoma, status post chemotherapy. 3. Pneumonia of the left lung, along with consolidation/effusion of the right lung. RECOMMENDATIONS: 1. Continue cefepime. 2. Continue vancomycin. 3. Follow the sputum culture. 4. Monitor blood culture. 5. Monitor temperature and then going to the continuation. Influenza testing on this patient was negative. Thank you for this consultation. The patient's progress will be monitored and further recommendations will be given upon followup if necessary. MD TERRY Fulton/yo , 10:59 AM , 11:16 AM
[2018-04-29] MEDS: Vancomycin Inj 1,500 MG in Sodium Chlor 0.9% Inj 500 ML IV.SIG SCH (12:35)
[2018-04-29] MEDS: Polyethylene Glycol 3350 17 GM Packet PO SCH ×2 (13:04→20:03)
[2018-04-29 15:54] LABS: Eos % (Auto) 0.2 % (0.0-4.0); Hemoglobin 7.4 gm/dL (13.0-17.0); Lymph % (Auto) 1.5 % (9.0-44.0); Mean Corpuscular HGB Conc 35.9 % (32.0-36.0); Mean Corpuscular Hemoglobin 27.2 pg (27.0-34.0); Mean Corpuscular Volume 75.8 fL (80.0-100.0); Mean Platelet Volume 10.1 fL (7.0-11.0); Mono % (Auto) 7.1 % (0.0-8.0); Neut # (Auto) 0.4 th/mm3 (1.8-7.7); Neut % (Auto) 91.2 % (16.0-70.0); Red Blood Count 2.72 mil/mm3 (4.50-5.90); Red Cell Distribution Width 16.4 % (11.6-17.2); White Blood Count 0.5 th/mm3 (4.0-11.0)
[2018-04-29 15:58] LABS: Hematocrit 20.6 % (39.0-51.0)
[2018-04-29 15:59] LABS: Platelet Count 18 th/mm3 (150-450)
[2018-04-29 16:41] LABS: Metamyelocytes 5 % (0-1); Ovalocytes 1+; Platelet Morphology Normal (Normal)
[2018-04-29] MEDS ORDERED: Morphine Inj 4 MG/ML Vial IV.PUSH PRN (17:25)
[2018-04-29 19:53] LABS: Alanine Aminotransferase 35 U/L (12-78)
[2018-04-29 19:58] LABS: Albumin 1.8 g/dL (3.4-5.0); Alkaline Phosphatase 147 U/L (45-117); Anion Gap 5 meq/L (5-15); Aspartate Aminotransferase 28 U/L (15-37); Blood Urea Nitrogen 10 mg/dL (7-18); Carbon Dioxide 27.7 meq/L (21.0-32.0); Chloride 105 meq/L (98-107); Glomerular Filtration Rate Greater Than 89 mL/min (>89); Glucose,Random 112 mg/dL (74-106); Potassium 4.3 meq/L (3.5-5.1); Sodium 138 meq/L (136-145); Total Protein 5.7 g/dL (6.4-8.2)
[2018-04-29] MEDS ORDERED: Morphine Inj 4 MG/ML Vial IV.PUSH ONE (20:00)
--- NOTE | 2018-04-29 21:09 | ECHRPT ---
Indication: pericardial effusion CONCLUSIONS Normal left ventricular size. Wall thickness is normal. The left ventricular systolic function is low normal with an estimated ejection fraction in the rang e of 50- 55%. The estimated pulmonary arterial pressure is 38 mmHg. There is a small to moderate size pericardial effusion present. No evidence of hemodynamic compromise. BP: / HR: Rhythm: MEASUREMENTS (Male / Female) Normal Values Technical Quality: 2D ECHO LV Diastolic Diameter PLAX 5.2 cm 4.2 - 5.9 / 3.9 - 5.3 cm LV Systolic Diameter PLAX 4.2 cm IVS Diastolic Thickness 1.2 cm 0.6 - 1.0 / 0.6 - 0.9 cm LVPW Diastolic Thickness 0.8 cm 0.6 - 1.0 / 0.6 - 0.9 cm LV Relative Wall Thickness 0.4 RV Internal Dim ED PLAX 3.3 cm LVOT Diameter 1.8 cm Aortic Root Diameter 2.7 cm LA Systolic Diameter LX 3.7 cm 3.0 - 4.0 / 2.7 - 3.8 cm LV Ejection Fraction MOD BP 43.3 % >= 55 % LV Ejection Fraction MOD 4C 47.7 % LV Ejection Fraction 4C AL 49.3 % LV Ejection Fraction MOD 2C 36.4 % LV Ejection Fraction 2C AL 39.7 % M-MODE Aortic Root Diameter MM 3.5 cm LA Systolic Diameter MM 4.8 cm LA Ao Ratio MM 1.4 AV Cusp Separation MM 2.3 cm DOPPLER AV Peak Velocity 125.0 cm/s AV Peak Gradient 6.3 mmHg LVOT Peak Velocity 94.3 cm/s LVOT Peak Gradient 3.6 mmHg AV Area Cont Eq pk 1.9 cm Mitral E Point Velocity 86.9 cm/s Mitral A Point Velocity 89.3 cm/s Mitral E to A Ratio 1.0 TR Peak Velocity 263.0 cm/s TR Peak Gradient 27.7 mmHg Right Atrial Pressure 10.0 mmHg Pulmonary Artery Systolic Pressu 37.7 mmHg Right Ventricular Systolic Press 37.7 mmHg PV Peak Velocity 137.0 cm/s PV Peak Gradient 7.5 mmHg FINDINGS LEFT VENTRICLE Normal left ventricular size. Wall thickness is normal. The left ventricular systolic function is low normal with an estimated ejection fraction in the rang e of 50- 55%. RIGHT VENTRICLE Normal right ventricular size and systolic function. LEFT ATRIUM The left atrial size is normal. RIGHT ATRIUM The right atrial size is normal. ATRIAL SEPTUM Normal atrial septal thickness without atrial level shunting by limited color doppler interrogation. AORTA The aortic root and proximal ascending aorta are normal in size on limited imaging. MITRAL VALVE Structurally normal mitral valve. No mitral valve stenosis or regurgitation. AORTIC VALVE Trileaflet aortic valve. No aortic valve stenosis or regurgitation. TRICUSPID VALVE The estimated pulmonary arterial pressure is 38mmHg. PULMONARY VALVE No pulmonary valve regurgitation or stenosis. VESSELS The inferior vena cava is normal in size. PERICARDIUM There is a small to moderate size pericardial effusion present. No evidence of hemodynamic compromise. Nuria Salter MD, FACC (Electronically Signed) Final Date:29 April 2018 21:08
--- NOTE | 2018-04-29 21:46 | MB ---
cc: Aysha Leigh MD,Yahir Plascencia MD DATE: 04/29/2018 REFERRING PHYSICIAN: Yahir Herron MD CHIEF COMPLAINT: Dr. Herron request a consultation for Mr. Turner regarding recurrent peripheral T-cell lymphoma. HISTORY OF PRESENT ILLNESS: Mr. Turner is a 43-year-old man with no significant past history. 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 He was initially treated with CHOP chemotherapy with response. He recurred and was placed into remission again with ICE chemotherapy. He recurred prior to being able to proceed with autologous stem cell transplant. He had no response to third line chemotherapy of oxaliplatin and gemcitabine. He was promptly readmitted on 04/15/2018 after bone marrow recovery to proceed with salvage ICE chemotherapy. On the same admission, he had a surgical procedure of a right video-assisted thorascopic surgery, evacuation of a loculated pleural effusion, decortication, and PleurX catheter placement. His ICE chemotherapy administered at the same time. He was discharged home. In the outpatient setting, he was continued on Neupogen support, which he receives daily. He had his catheter dressing changed. On Saturday, he presented to the clinic with cytopenias. His white count was 0.2, hemoglobin was 8, and platelet count of 16,000. He was continued on Neupogen with plans to transfuse him red cells and platelets on 04/29/2018 at our [facility]; however, he felt unwell and came into the emergency room. He was seen in the emergency room by Dr. Johanna Heart. He had fever, back pain, body aches, congestion pains of the right side. He has had a chest tube placed. He also had some recurrent nose bleeds. He had been on Xarelto, which was stopped in light of his thrombocytopenia. He was febrile in the emergency room and a temperature 101.6, heart rate in the 140s. He was diagnosed with a sepsis picture. He was resuscitated and admitted to the ICU and came under the care Dr. Herron. Blood cultures were obtained. He was seen by Infectious Disease. Hematology Oncology is consulted. PHYSICAL EXAMINATION: HEENT: Mr. Turner complains of throat pain. He is requesting Magic Mouthwash. He has a blood blister on his lower lip. He has some small amount of petechiae in his lower lip. His pupils are round and reactive. LUNGS: With coarse breath sounds in the right lung field. CARDIOVASCULAR: Reveals tachycardia. ABDOMEN: Distended, but benign. EXTREMITIES: No edema. He moves all 4 extremities. He denies any problems associated with his triple lumen central line. He had PleurX catheter drainage of pleural fluid today without event. He has not had a bowel movement for some time. He feels the distention in his abdomen. He complains of pain and it is not relieved by his Dilaudid. He prefers the morphine, as it helps him with his shortness of breath as well. He has developed a significant amount of tolerance. He is requiring a higher dose to alleviate his symptoms. He denies any urinary complaints. He has had no additional bleeding. He has been transfused red cells and platelets. 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 PAST SURGICAL HISTORY: Mediastinal biopsy, thoracentesis, pleurodesis, port placement, triple lumen placement, right thoracotomy placement, right VATS thoracotomy. ALLERGIES: NO KNOWN DRUG ALLERGIES. FAMILY HISTORY: No significant family history of cancer. SOCIAL HISTORY: He is , lives with his and 2 daughters. Denies any alcohol, tobacco or illicit drug use. MEDICATIONS: 1. Tylenol p.r.n. 2. DuoNebs. 3. Dulcolax. 4. Cefepime. 5. Chlorhexidine. 6. Neupogen. 7. Dilaudid p.r.n. 8. Lactulose. 9. Vancomycin. PHYSICAL EXAMINATION: VITAL SIGNS: Temperature 98.9, heart rate 116, respiratory rate 18, blood pressure 111/79, saturation 98%. GENERAL: Mr. Turner is an anxious-appearing man, who looks his stated age. HEENT: His pupils are round and reactive. Sclerae are nonicteric. Oropharynx is dry, thickened mucus, blood blister on his lower lip, and some petechia in the lower lip. CHEST: Lungs are clear on the left side. There are rhonchi and coarse breath sounds on the right. Right chest wall triple lumen is in place. ABDOMEN: Abdomen is distended. EXTREMITIES: Lower extremity with no edema. NEUROLOGIC: Nonfocal. LABORATORY DATA: CBC: WBC 0.5, hemoglobin 7.4, platelet count 18,000, ANC is 500. Chemistry: BUN of 12, creatinine 0.83, glucose 128, AST 40, ALT 44, alkaline phosphatase 185. ASSESSMENT AND PLAN: Mr. Turner is a 43-year-old man with second recurrent aggressive T-cell lymphoblastic lymphoma. He is status post cycle 1 of ICE salvage chemotherapy at the same time as a right VATS thoracotomy for his recurrent pleural effusion. He has pancytopenia from his recent chemotherapy. He is admitted with fever, sepsis picture and pancytopenia. We discussed our continued supportive transfusion. We will check hemoglobin in the morning and transfuse if his hemoglobin less than 7.4. I recommend transfusing additional platelets in light of his recent use of the newer oral anticoagulant, a blood blister on his lower lip, and petechia. His platelet count is only 18,000. His GCSF support continues. I anticipate a prompt recovery of ANC; it is already 500. He has not had more fevers. He typically is on prednisone 5 mg at home. He was on prophylactic Vfend and a newer oral anticoagulant in light of his upper extremity deep vein thrombosis and superior vena cava syndrome. I agree with stopping his anticoagulant therapy in light of his thrombocytopenia. We will monitor closely. We will initiate deep venous thrombosis prophylaxis when he is clinically stable. Noted on his admission is the CT angiogram that shows moderate size pleural effusion and pericardial effusion. The pericardial effusion appeared to have increased in size compared to previous. We will monitor his heart rate for now and see if he defervesced with the antibiotic therapy. Blood cultures from the 10th were showing gram-positive cocci. These were blood cultures that were obtained, and infectious disease was consulted. Recommend continuing cefepime and vancomycin and monitoring the cultures. Sputum culture is pending. Influenza was negative. We anticipate recovery following this week from his cytopenias from chemotherapy. He will require support. He will need to continue treatment, which has become more difficult to tolerate, in light of his recurrent T-cell lymphoma. We will consider echocardiogram to evaluate his pericardial effusion, if he remains tachycardic. Concern about involvement of the pericardial fluid with his T-cell lymphoma as well. MD ANURAG Viera/adithya , 07:58 PM , 08:18 PM
[2018-04-29] MEDS: Nystatin/Diphenhydramine/Lidocaine Mouthwash (Adult) 120 ML Botttle SWISH-SWAL SCH (22:11)
[2018-04-30] MEDS: Morphine Inj 4 MG/ML Vial IV.PUSH PRN ×6 (00:20→20:09)
[2018-04-30] MEDS: Vancomycin Inj 1,500 MG in Sodium Chlor 0.9% Inj 500 ML IV.SIG SCH ×3 (00:25→20:07)
[2018-04-30] MEDS: Pantoprazole Inj 40 MG Vial IV.PUSH SCH (02:10)
[2018-04-30] MEDS: Chlorhexidine Gluconate 2% 1 Pack (2 Cloths) TOPICAL SCH (04:14)
[2018-04-30 04:47] LABS: Hematocrit 22.6 % (39.0-51.0); Hemoglobin 7.8 gm/dL (13.0-17.0); Mean Corpuscular HGB Conc 34.5 % (32.0-36.0); Mean Corpuscular Hemoglobin 26.5 pg (27.0-34.0); Mean Platelet Volume 10.1 fL (7.0-11.0); Red Blood Count 2.94 mil/mm3 (4.50-5.90); Red Cell Distribution Width 17.3 % (11.6-17.2); White Blood Count 0.5 th/mm3 (4.0-11.0)
[2018-04-30 05:03] LABS: Platelet Count 19 th/mm3 (150-450)
[2018-04-30 05:23] LABS: Alanine Aminotransferase 31 U/L (12-78); Albumin 1.8 g/dL (3.4-5.0); Alkaline Phosphatase 142 U/L (45-117); Anion Gap 9 meq/L (5-15); Aspartate Aminotransferase 22 U/L (15-37); Blood Urea Nitrogen 8 mg/dL (7-18); Calcium 7.6 mg/dL (8.5-10.1); Carbon Dioxide 26.4 meq/L (21.0-32.0); Chloride 104 meq/L (98-107); Glomerular Filtration Rate Greater Than 89 mL/min (>89); Glucose,Random 95 mg/dL (74-106); Magnesium 1.7 mg/dL (1.5-2.5); Phosphorus 2.4 mg/dL (2.5-4.9); Potassium 3.2 meq/L (3.5-5.1); Sodium 139 meq/L (136-145); Total Protein 5.6 g/dL (6.4-8.2)
[2018-04-30] MEDS: Insulin NovoLIN Regular Correctional Sugar Inj SQ SCH ×3 (05:44→18:22)
[2018-04-30] MEDS ORDERED: Sodium Chlor 0.9% Inj 250 ML IV.SIG SCH (06:00)
[2018-04-30 07:06] LABS: Lymphocytes 6 % (9-44); Metamyelocytes 4 % (0-1); Monocytes 4 % (0-8); Toxic Granulation 3+
[2018-04-30 07:07] LABS: Platelet Estimate Rare (Normal); Platelet Morphology Normal (Normal)
[2018-04-30 07:08] LABS: Ovalocytes 1+
[2018-04-30] MEDS: Nystatin/Diphenhydramine/Lidocaine Mouthwash (Adult) 120 ML Botttle SWISH-SWAL SCH ×4 (08:05→20:08)
[2018-04-30] MEDS: Senna/Docusate Sodium 8.6/50 MG Tablet PO SCH ×2 (08:05→20:09)
[2018-04-30] MEDS: Polyethylene Glycol 3350 17 GM Packet PO SCH ×2 (08:05→20:09)
--- NOTE | 2018-04-30 11:35 | P.PNID ---
Subjective Remarks: Patient is up in bedside recliner chair. He states that he feels better. Reports he had a lot of pain last night in the left chest area. Denies chills. Denies shortness of breath. Blood culture has gram-positive cocci in 4 bottles. Still has low-grade fever. White blood cell count remain low. 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 The patient has been undergoing chemotherapeutic treatments. He was noted to have recurrence of the T-cell lymphoma. He was admitted to the hospital on 04/28/2018. He last received chemotherapy approximately 10 days ago and he started to get fever and also developed chest pain and chills and presented to the emergency department for evaluation. The patient had a temperature of 101.6 in the emergency department and the heart rate was 147. His white blood cell count was low at 0.2. His platelet count was also low at 6. Chest x-ray shows near complete opacification of the right hemithorax with slight increase when compared to prior study of 04/19/2018. The patient has been known to have opacification of the right hemithorax and he has had multiple thoracenteses for pleural effusion. He reports to me that he coughs up slight yellow sputum occasionally and that he has been having chills over the last few nights and also has been feeling very tired. The patient also reports that he has had some nose bleeding over the past 2 days and that there was some blood-tinged sputum, which he feels is likely related to the nosebleed. He has had occasional dry cough and soreness of the throat and body aches. ID consulted for neutropenic fever. Past Medical History: PAST MEDICAL HISTORY: T-cell lymphoblastic lymphoma. The patient has been receiving chemotherapy. Also, asthma, herniated disks, pleural effusion, pneumonia in 2017. Allergies/Adverse Reactions: Allergies adhesive tape Adverse Reaction (Verified 04/12/18 03:58) Blister Objective Vital Signs 04/29/18 12:00 04/29/18 12:30 04/29/18 13:00 Temperature 99.0 F Pulse Rate 113 H 109 H 115 H Respiratory Rate 20 23 29 H Blood Pressure 108/69 105/73 105/77 Pulse Oximetry 97 98 98 04/29/18 13:30 04/29/18 14:00 04/29/18 14:36 Temperature Pulse Rate 113 H 107 H 111 H Respiratory Rate 22 19 24 Blood Pressure 111/73 111/76 Pulse Oximetry 97 97 04/29/18 15:00 04/29/18 15:16 04/29/18 16:00 Temperature 98.9 F Pulse Rate 114 H 113 H 111 H Respiratory Rate 27 H 29 H 25 H Blood Pressure 109/75 117/78 Pulse Oximetry 97 97 98 04/29/18 17:00 04/29/18 18:00 04/29/18 19:00 Temperature Pulse Rate 109 H 113 H 116 H Respiratory Rate 27 H 18 18 Blood Pressure 122/84 113/80 111/79 Pulse Oximetry 94 L 98 98 04/29/18 20:00 04/29/18 20:39 04/29/18 20:43 Temperature 99.4 F Pulse Rate 121 H 122 H Respiratory Rate 28 H 20 Blood Pressure 107/74 Pulse Oximetry 97 95 04/29/18 21:00 04/29/18 21:49 04/29/18 22:00 Temperature 100.2 F H 100.0 F H Pulse Rate 122 H 124 H 121 H Respiratory Rate 27 H 30 H 32 H Blood Pressure 133/80 133/80 123/79 Pulse Oximetry 97 96 97 04/29/18 23:00 04/30/18 00:00 04/30/18 00:18 Temperature 99.5 F Pulse Rate 117 H 115 H 120 H Respiratory Rate 22 28 H 36 H Blood Pressure 121/71 111/72 Pulse Oximetry 96 96 97 04/30/18 01:00 04/30/18 01:11 04/30/18 01:15 Temperature 100.2 F H Pulse Rate 110 H 110 H 115 H Respiratory Rate 22 22 30 H Blood Pressure 111/72 111/72 Pulse Oximetry 97 97 97 04/30/18 01:30 04/30/18 01:45 04/30/18 02:00 Temperature Pulse Rate 118 H 108 H 109 H Respiratory Rate 28 H 21 19 Blood Pressure Pulse Oximetry 96 97 96 04/30/18 02:07 04/30/18 02:15 04/30/18 02:30 Temperature Pulse Rate 108 H 117 H 111 H Respiratory Rate 22 25 H 29 H Blood Pressure 120/74 127/79 Pulse Oximetry 97 98 96 04/30/18 02:45 04/30/18 03:00 12/12/18 03:15 Temperature Pulse Rate 109 H 105 H 116 H Respiratory Rate 22 23 37 H Blood Pressure 126/74 Pulse Oximetry 96 97 96 04/30/18 03:30 04/30/18 03:45 04/30/18 04:00 Temperature 99.6 F Pulse Rate 108 H 108 H 109 H Respiratory Rate 24 26 H 31 H Blood Pressure 128/76 Pulse Oximetry 96 97 95 04/30/18 04:15 04/30/18 04:28 04/30/18 04:30 Temperature Pulse Rate 113 H 116 H 109 H Respiratory Rate 32 H 20 26 H Blood Pressure Pulse Oximetry 95 98 04/30/18 04:45 04/30/18 05:00 04/30/18 06:00 Temperature Pulse Rate 111 H 110 H 109 H Respiratory Rate 21 31 H 27 H Blood Pressure 124/80 125/80 Pulse Oximetry 96 95 04/30/18 07:00 04/30/18 08:00 04/30/18 08:57 Temperature 98.7 F Pulse Rate 103 H 112 H 112 H Respiratory Rate 20 20 18 Blood Pressure 134/79 125/84 Pulse Oximetry 96 95 04/30/18 09:00 04/30/18 10:00 Temperature Pulse Rate 113 H 121 H Respiratory Rate 24 26 H Blood Pressure 129/82 129/83 Pulse Oximetry 91 L 94 L Intake & Output 04/29/18 04/30/18 04/30/18 18:59 06:59 18:59 Intake Total 5015 / 5015 3438 / 3438 100 / 100 Output Total 1675 / 1675 1100 / 1100 Balance 3340 / 3340 2338 / 2338 100 / 100 Weight 86.5 kg Intake: IV 3015 / 3015 2615 / 2615 100 / 100 LR 1000 mL Inj 1,000 ML @ 125 1000 / 1000 2000 / 2000 mls/hr IV.CONT .Q8H BAND[facility] Rx#: [id number] Azithromycin Inj 500 MG In NS 250 / 250 Inj 250 ML @ 250 mls/hr IV.SIG ONCE ONE Rx#:[id number] Maxipime Inj 2,000 MG In NS Inj 200 / 200 100 / 100 100 / 100 100 ML @ 200 mls/hr IV.SIG Q8H [facility] Rx#:[id number] NS Inj 1,000 ML @ Wide Open IV. 1000 / 1000 SIG BOLUS ONE Rx#:[id number] NS Inj 250 ML @ 15 mls/hr IV. 50 / 50 SIG ONCE BANDAR Rx#:[id number] Vancomycin Inj 1,500 MG In NS 515 / 515 515 / 515 Inj 500 ML @ 257.5 mls/hr IV. SIG Q12H [facility] Rx#:[id number] Oral 1200 / 1200 240 / 240 Intake (Blood Product) Amt 800 / 800 583 / 583 Plt Pheresis C Leukored Pas 183 / 183 Unit [id number] Rbc As-3 Leukoreduced Unit 400 / 400 [id number] Rbc As-3 Leukoreduced Unit 400 / 400 [id number] Rbc As-3 Leukoreduced Irrad 400 / 400 Unit [id number] Output: Urine 1625 / 1625 1100 / 1100 Wound Drainage 50 / 50 Right Anterior Abdomen 50 / 50 Other: Date of Last Bowel Movement 04/29/18 04/30/18 # Bowel Movements 1 04/29/18 07:50 Sputum - Expectorated Sputum Gram Stain - Final 04/29/18 07:50 Sputum - Expectorated Sputum Sputum Culture - Pending 04/28/18 23:30 Blood - Peripheral Aerobic Blood Culture - Preliminary gram positive cocci 04/28/18 23:30 Blood - Peripheral Anaerobic Blood Culture - Preliminary gram positive cocci 04/28/18 23:45 Blood - Peripheral Aerobic Blood Culture - Preliminary gram positive cocci 04/28/18 23:45 Blood - Peripheral Anaerobic Blood Culture - Preliminary gram positive cocci 04/29/18 09:50 Urine - Clean Catch Urine Streptococcus pneumoniae Antigen ( M - Final Presumptive negative for streptococcus pneumoniae antigen, suggesting no current or recent infection. Infection due to Streptococcus pneumoniae cannot be ruled out since the antigen present in the sample may be below the detection limit of the test. 04/29/18 09:50 Urine - Clean Catch Urine Legionella Antigen - Final Presumptive negative for Legionella pneumophila serogroup 1 antigen in urine, suggesting no recent or recurrent infection. Infection due to Legionella cannot be ruled out since other serogroups and species may cause disease, antigen may not be present in urine in early infection, and the level of antigen present in the urine may be below the detection limit of the test. 04/29/18 08:20 Nasal Wash Influenza Types A,B Antigen - Final Negative for FLU A and B antigen Infection due to influenza A or B cannot be ruled out since the antigen present in the sample may be below the detection limit of the test. Lab - Hematology Results 04/28/18 04/29/18 04/29/18 23:45 05:22 15:05 WBC 0.2 L 0.1 L 0.5 L D RBC 3.09 L 2.66 L 2.72 L Hgb 7.7 L 6.9 L* 7.4 L Hct 22.2 L 20.1 L* 20.6 L* MCV 71.8 L 75.4 L D 75.8 L MCH 24.9 L 26.1 L 27.2 MCHC 34.6 34.6 35.9 RDW 17.8 H 17.3 H 16.4 Plt Count 6 L* D 12 L* D 18 L* D MPV 8.7 8.8 10.1 Prelim Diff (Auto) Manual diff required Manual diff required Slide review pending Neut % (Auto) 91.2 H Lymph % (Auto) 1.5 L [place] % (Auto) 7.1 Eos % (Auto) 0.2 Baso % (Auto) 0.0 Neut # (Auto) 0.4 L* Lymph # (Auto) 0.0 L [place] # (Auto) 0.0 Eos # (Auto) 0.0 Baso # (Auto) 0.0 WBC Differential Manual diff final Manual diff final Manual diff final Seg Neuts % (Manual) 50 68 60 Band Neuts % (Manual) 20 H 22 H 35 H Lymphocytes % (Manual) 10 2 L Monocytes % (Manual) 10 H 4 Metamyelocytes % (Man) 10 H 5 H Myelocytes % (Man) 2 H Promyelocytes % (Man) 2 H Abs Neuts (Manual) 0.2 L* 0.1 L* 0.5 L* Differential Comment . . . Toxic Granulation 2+ H Platelet Estimate Low L Rare L Low L Platelet Morphology Normal Normal Normal Spherocytes 1+ H 1+ H Ovalocytes 2+ H 1+ H 1+ H 04/30/18 04:07 WBC 0.5 L RBC 2.94 L Hgb 7.8 L Hct 22.6 L MCV 77.0 L MCH 26.5 L MCHC 34.5 RDW 17.3 H Plt Count 19 L* MPV 10.1 Prelim Diff (Auto) Manual diff required Neut % (Auto) Lymph % (Auto) [place] % (Auto) Eos % (Auto) Baso % (Auto) Neut # (Auto) Lymph # (Auto) [place] # (Auto) Eos # (Auto) Baso # (Auto) WBC Differential Manual diff final Seg Neuts % (Manual) 50 Band Neuts % (Manual) 36 H Lymphocytes % (Manual) 6 L Monocytes % (Manual) 4 Metamyelocytes % (Man) 4 H Myelocytes % (Man) Promyelocytes % (Man) Abs Neuts (Manual) 0.5 L* Differential Comment . Toxic Granulation 3+ H Platelet Estimate Rare L Platelet Morphology Normal Spherocytes Ovalocytes 1+ H Lab - Chemistry Results 04/28/18 04/28/18 04/28/18 23:40 23:45 23:45 Sodium 136 Potassium 3.9 Chloride 99 Carbon Dioxide 26.8 Anion Gap 10 BUN 12 Creatinine 0.83 Estimated GFR Greater than 89 POC Glucose Random Glucose 128 H Lactic Acid 1.1 Calcium 8.3 L Phosphorus Magnesium 1.7 Total Bilirubin 1.0 AST 40 H ALT 44 Alkaline Phosphatase 185 H Total Creatine Kinase 78 Troponin I Less than 0.02 L Total Protein 7.0 Albumin 2.2 L Prealbumin Lipase 103 04/28/18 04/29/18 04/29/18 23:45 05:01 12:34 Sodium Potassium Chloride Carbon Dioxide Anion Gap BUN Creatinine Estimated GFR POC Glucose 118 H 165 H Random Glucose Lactic Acid Calcium Phosphorus Magnesium Total Bilirubin AST ALT Alkaline Phosphatase Total Creatine Kinase Troponin I Total Protein Albumin Prealbumin 14 L Lipase 04/29/18 04/29/18 04/29/18 18:25 19:17 23:45 Sodium 138 Potassium 4.3 Chloride 105 Carbon Dioxide 27.7 Anion Gap 5 BUN 10 Creatinine 0.66 Estimated GFR Greater than 89 POC Glucose 109 125 H Random Glucose 112 H Lactic Acid Calcium 8.0 L Phosphorus Magnesium Total Bilirubin 3.6 H AST 28 ALT 35 Alkaline Phosphatase 147 H Total Creatine Kinase Troponin I Total Protein 5.7 L D Albumin 1.8 L Prealbumin Lipase 04/30/18 04:07 Sodium 139 Potassium 3.2 L D Chloride 104 Carbon Dioxide 26.4 Anion Gap 9 BUN 8 Creatinine 0.60 Estimated GFR Greater than 89 POC Glucose Random Glucose 95 Lactic Acid Calcium 7.6 L Phosphorus 2.4 L Magnesium 1.7 Total Bilirubin 2.2 H AST 22 ALT 31 Alkaline Phosphatase 142 H Total Creatine Kinase Troponin I Total Protein 5.6 L Albumin 1.8 L Prealbumin Lipase Imaging: ITS Impressions Chest X-Ray 04/28/18 23:38 CONCLUSION: 1. Near complete opacification of the right hemithorax with slight increase when compared to the prior study of 04/19/2018. 2. New mild patchy opacity at the left lung base. Chest CTA 04/29/18 00:00 CONCLUSION: 1. No evidence of pulmonary embolus. 2. Moderate-sized right pleural effusion again seen along with scattered gas within the pleural effusion. 3. Extensive diffuse right lung consolidation again seen. 4. Moderate severity multifocal patchy consolidation in the left lung is new. 5. Moderate-sized pericardial effusion, increased in size when compared to the prior study. Physical Exam: GENERAL: No acute distress. Awake and alert and oriented. HEENT: The head is atraumatic. Extraocular movements grossly intact. Pupils reactive to light. The pupils are constricted. No icterus. No conjunctival erythema. Oropharynx moist mucosa without visible lesions. There is a scabbed, dried lesion in the mid aspect of the lower lip. NECK: Supple without adenopathy. LUNGS: Creased breath sounds. HEART: Regular S1 and S2, without audible murmurs. ABDOMEN: Bowel sounds present. Soft, mildly obese, nontender. EXTREMITIES: No clubbing or cyanosis or edema. SKIN: No rash. The skin is warm and moist. NEUROLOGIC: No gross focal finding. PSYCHIATRIC: The patient is calm and cooperative. Assessment and Plan - Plan IMPRESSION: 1. Bacteremia due to gram-positive cocci. 2. Neutropenia and fever. White blood cell count remain low. 3. T-cell lymphoblastic lymphoma, status post chemotherapy. 4. Pneumonia of the left lung, along with consolidation/effusion of the right lung. RECOMMENDATIONS: 1. Continue cefepime. 2. Continue vancomycin. 3. Follow the sputum culture. 4. Monitor blood culture for identity and sensitivity of the gram-positive cocci.. 5. Monitor temperature. Discussed with RN and at bedside.
--- NOTE | 2018-04-30 11:56 | P.PNCC ---
Subjective Subjective Remarks/Hospital Course: 43yM with history of non-Hodgkin's lymphoma presents with 1 day history of fever. seen in clinic yesterday. approximately 1 week s/p chemotherapy and pancytopenic. endorses cough, sob. denies n/v/c/d/abd pain. CT chest shows persistent known right-sided infiltrates related to prior pneumonitis from radiation. has pleurex catheter in place. febrile and hypotensive in ER which responded to ivf. received cefepime, azithromycin in the ER. remainder of ROS negative. 04/30/18: Patient is subjectively improving. Hemodynamically stable. Leukopenia persist with increased bands. Platelet count 19,000. Blood cultures 4 out of 4 bottles growing gram-positive cocci Objective Vital Signs / I&O: Vital Signs 04/29/18 12:00 04/29/18 12:30 04/29/18 13:00 Temperature 99.0 F Pulse Rate 113 H 109 H 115 H Respiratory Rate 20 23 29 H Blood Pressure 108/69 105/73 105/77 Pulse Oximetry 97 98 98 04/29/18 13:30 04/29/18 14:00 04/29/18 14:36 Temperature Pulse Rate 113 H 107 H 111 H Respiratory Rate 22 19 24 Blood Pressure 111/73 111/76 Pulse Oximetry 97 97 04/29/18 15:00 04/29/18 15:16 04/29/18 16:00 Temperature 98.9 F Pulse Rate 114 H 113 H 111 H Respiratory Rate 27 H 29 H 25 H Blood Pressure 109/75 117/78 Pulse Oximetry 97 97 98 04/29/18 17:00 04/29/18 18:00 04/29/18 19:00 Temperature Pulse Rate 109 H 113 H 116 H Respiratory Rate 27 H 18 18 Blood Pressure 122/84 113/80 111/79 Pulse Oximetry 94 L 98 98 04/29/18 20:00 04/29/18 20:39 04/29/18 20:43 Temperature 99.4 F Pulse Rate 121 H 122 H Respiratory Rate 28 H 20 Blood Pressure 107/74 Pulse Oximetry 97 95 04/29/18 21:00 04/29/18 21:49 04/29/18 22:00 Temperature 100.2 F H 100.0 F H Pulse Rate 122 H 124 H 121 H Respiratory Rate 27 H 30 H 32 H Blood Pressure 133/80 133/80 123/79 Pulse Oximetry 97 96 97 04/29/18 23:00 04/30/18 00:00 04/30/18 00:18 Temperature 99.5 F Pulse Rate 117 H 115 H 120 H Respiratory Rate 22 28 H 36 H Blood Pressure 121/71 111/72 Pulse Oximetry 96 96 97 04/30/18 01:00 04/30/18 01:11 04/30/18 01:15 Temperature 100.2 F H Pulse Rate 110 H 110 H 115 H Respiratory Rate 22 22 30 H Blood Pressure 111/72 111/72 Pulse Oximetry 97 97 97 04/30/18 01:30 04/30/18 01:45 04/30/18 02:00 Temperature Pulse Rate 118 H 108 H 109 H Respiratory Rate 28 H 21 19 Blood Pressure Pulse Oximetry 96 97 96 04/30/18 02:07 04/30/18 02:15 04/30/18 02:30 Temperature Pulse Rate 108 H 117 H 111 H Respiratory Rate 22 25 H 29 H Blood Pressure 120/74 127/79 Pulse Oximetry 97 98 96 04/30/18 02:45 04/30/18 03:00 04/30/18 03:15 Temperature Pulse Rate 109 H 105 H 116 H Respiratory Rate 22 23 37 H Blood Pressure 126/74 Pulse Oximetry 96 97 96 04/30/18 03:30 04/30/18 03:45 04/30/18 04:00 Temperature 99.6 F Pulse Rate 108 H 108 H 109 H Respiratory Rate 24 26 H 31 H Blood Pressure 128/76 Pulse Oximetry 96 97 95 04/30/18 04:15 04/30/18 04:28 04/30/18 04:30 Temperature Pulse Rate 113 H 116 H 109 H Respiratory Rate 32 H 20 26 H Blood Pressure Pulse Oximetry 95 98 04/30/18 04:45 04/30/18 05:00 04/30/18 06:00 Temperature Pulse Rate 111 H 110 H 109 H Respiratory Rate 21 31 H 27 H Blood Pressure 124/80 125/80 Pulse Oximetry 96 95 04/30/18 07:00 04/30/18 08:00 04/30/18 08:57 Temperature 98.7 F Pulse Rate 103 H 112 H 112 H Respiratory Rate 20 20 18 Blood Pressure 134/79 125/84 Pulse Oximetry 96 95 04/30/18 09:00 04/30/18 10:00 Temperature Pulse Rate 113 H 121 H Respiratory Rate 24 26 H Blood Pressure 129/82 129/83 Pulse Oximetry 91 L 94 L Intake & Output 04/29/18 04/30/18 04/30/18 18:59 06:59 18:59 Intake Total 5015 / 5015 3438 / 3438 100 / 100 Output Total 1675 / 1675 1100 / 1100 Balance 3340 / 3340 2338 / 2338 100 / 100 Weight 86.5 kg Intake: IV 3015 / 3015 2615 / 2615 100 / 100 LR 1000 mL Inj 1,000 ML @ 125 1000 / 1000 2000 / 2000 mls/hr IV.CONT .Q8H [facility] Rx#: [id number] Azithromycin Inj 500 MG In NS 250 / 250 Inj 250 ML @ 250 mls/hr IV.SIG ONCE ONE Rx#:[id number] Maxipime Inj 2,000 MG In NS Inj 200 / 200 100 / 100 100 / 100 100 ML @ 200 mls/hr IV.SIG Q8H [facility] Rx#:[id number] NS Inj 1,000 ML @ Wide Open IV. 1000 / 1000 SIG BOLUS ONE Rx#:[id number] NS Inj 250 ML @ 15 mls/hr IV. 50 / 50 SIG ONCE [facility] Rx#:[id number] Vancomycin Inj 1,500 MG In NS 515 / 515 515 / 515 Inj 500 ML @ 257.5 mls/hr IV. SIG Q12H [facility] Rx#:[id number] Oral 1200 / 1200 240 / 240 Intake (Blood Product) Amt 800 / 800 583 / 583 Plt Pheresis C Leukored Pas 183 / 183 Unit [id number] Rbc As-3 Leukoreduced Unit 400 / 400 [id number] Rbc As-3 Leukoreduced Unit 400 / 400 [id number] Rbc As-3 Leukoreduced Irrad 400 / 400 Unit [id number] Output: Urine 1625 / 1625 1100 / 1100 Wound Drainage 50 / 50 Right Anterior Abdomen 50 / 50 Other: Date of Last Bowel Movement 04/29/18 04/30/18 # Bowel Movements 1 Result Diagrams: 04/30/18 04:07 04/30/18 04:07 Objective Remarks: GENERAL: 43 YO male, lying in bed, not in any acute distress HEENT: Normocephalic. Atraumatic. Pupils equal, round, reactive, conjugate. Mucous membranes are dry NECK: Trachea is midline. There is no JVD. CHEST: Breath sounds are diminished bilaterally with coarse rhonchi. Right lung with decreased breath sounds. CARDIOVASCULAR: Tachycardic rate in the 110s, regular rhythm. Sinus. Heart sounds are distant ABDOMEN: Soft, nontender, nondistended. No guarding. MUSCULOSKELETAL: Pulses 2+. No peripheral edema. NEUROLOGICAL: Follows commands in all 4 extremities. No focal deficits. Assessment and Plan - Assessment and Plan Plan: Assessment: 43yM with history of non-Hodgkin's lymphoma now with neutropenic severe sepsis. suspect pulmonary source given cough and SOB. admit to ICU. critically ill with high likelihood of secondary to neutropenic sepsis with organ dysfunction and hypotension. Active problems: Healthcare associated pneumonia Neutropenic severe sepsis Neutropenia Anemia secondary to chemotherapy Thrombocytopenia secondary to chemotherapy known DVTs Hypoxia requiring oxygen therapy Hypotension secondary to intravascular volume depletion Moderate pericardial effusion Plan: Continue ICU care for another 24 hours continue cefepime. Continue vancomycin. Blood cultures GPC 4 out of 4 bottles ivf resuscitation am cbc, bmp, mg, phos Patient has moderate pericardial effusion on CT chest, check 2D echo to evaluate for tamponade will hold off on transfusion of prbcs at this time: no active signs of bleeding oncology Dr. Leigh neutropenic precautions trend lactates hold home Xarelto given thrombocytopenia. will need to restart once cell counts have improved and bleeding is less of a concern. protonix for GI ppx. SCDs Level 3 Consult hospitalist to assume care 05/01/2018
--- NOTE | 2018-04-30 12:21 | P.PNONC ---
Subjective Interval history: T-max 100.2 F. Remains tachycardic. Currently on 3 L O2 via nasal cannula, O2 sat 98% Patient with wet washcloth on lower lip blood blister "trying to soften the scab ". He denies any bleeding. Denies epistaxis, hematuria or dark stools. Objective Vital Signs/Intake & Output: Vital Signs 04/29/18 12:00 04/29/18 12:30 04/29/18 13:00 Temperature 99.0 F Pulse Rate 113 H 109 H 115 H Respiratory Rate 20 23 29 H Blood Pressure 108/69 105/73 105/77 Pulse Oximetry 97 98 98 04/29/18 13:30 04/29/18 14:00 04/29/18 14:36 Temperature Pulse Rate 113 H 107 H 111 H Respiratory Rate 22 19 24 Blood Pressure 111/73 111/76 Pulse Oximetry 97 97 04/29/18 15:00 04/29/18 15:16 04/29/18 16:00 Temperature 98.9 F Pulse Rate 114 H 113 H 111 H Respiratory Rate 27 H 29 H 25 H Blood Pressure 109/75 117/78 Pulse Oximetry 97 97 98 04/29/18 17:00 04/29/18 18:00 04/29/18 19:00 Temperature Pulse Rate 109 H 113 H 116 H Respiratory Rate 27 H 18 18 Blood Pressure 122/84 113/80 111/79 Pulse Oximetry 94 L 98 98 04/29/18 20:00 04/29/18 20:39 04/29/18 20:43 Temperature 99.4 F Pulse Rate 121 H 122 H Respiratory Rate 28 H 20 Blood Pressure 107/74 Pulse Oximetry 97 95 04/29/18 21:00 04/29/18 21:49 04/29/18 22:00 Temperature 100.2 F H 100.0 F H Pulse Rate 122 H 124 H 121 H Respiratory Rate 27 H 30 H 32 H Blood Pressure 133/80 133/80 123/79 Pulse Oximetry 97 96 97 04/29/18 23:00 04/30/18 00:00 04/30/18 00:18 Temperature 99.5 F Pulse Rate 117 H 115 H 120 H Respiratory Rate 22 28 H 36 H Blood Pressure 121/71 111/72 Pulse Oximetry 96 96 97 04/30/18 01:00 04/30/18 01:11 04/30/18 01:15 Temperature 100.2 F H Pulse Rate 110 H 110 H 115 H Respiratory Rate 22 22 30 H Blood Pressure 111/72 111/72 Pulse Oximetry 97 97 97 04/30/18 01:30 04/30/18 01:45 04/30/18 02:00 Temperature Pulse Rate 118 H 108 H 109 H Respiratory Rate 28 H 21 19 Blood Pressure Pulse Oximetry 96 97 96 04/30/18 02:07 04/30/18 02:15 04/30/18 02:30 Temperature Pulse Rate 108 H 117 H 111 H Respiratory Rate 22 25 H 29 H Blood Pressure 120/74 127/79 Pulse Oximetry 97 98 96 04/30/18 02:45 04/30/18 03:00 04/30/18 03:15 Temperature Pulse Rate 109 H 105 H 116 H Respiratory Rate 22 23 37 H Blood Pressure 126/74 Pulse Oximetry 96 97 96 04/30/18 03:30 04/30/18 03:45 04/30/18 04:00 Temperature 99.6 F Pulse Rate 108 H 108 H 109 H Respiratory Rate 24 26 H 31 H Blood Pressure 128/76 Pulse Oximetry 96 97 95 04/30/18 04:15 04/30/18 04:28 04/30/18 04:30 Temperature Pulse Rate 113 H 116 H 109 H Respiratory Rate 32 H 20 26 H Blood Pressure Pulse Oximetry 95 98 04/30/18 04:45 04/30/18 05:00 04/30/18 06:00 Temperature Pulse Rate 111 H 110 H 109 H Respiratory Rate 21 31 H 27 H Blood Pressure 124/80 125/80 Pulse Oximetry 96 95 04/30/18 07:00 04/30/18 08:00 04/30/18 08:57 Temperature 98.7 F Pulse Rate 103 H 112 H 112 H Respiratory Rate 20 20 18 Blood Pressure 134/79 125/84 Pulse Oximetry 96 95 04/30/18 09:00 04/30/18 10:00 Temperature Pulse Rate 113 H 121 H Respiratory Rate 24 26 H Blood Pressure 129/82 129/83 Pulse Oximetry 91 L 94 L Intake & Output 04/29/18 04/30/18 04/30/18 18:59 06:59 18:59 Intake Total 5015 / 5015 3438 / 3438 100 / 100 Output Total 1675 / 1675 1100 / 1100 Balance 3340 / 3340 2338 / 2338 100 / 100 Weight 86.5 kg Intake: IV 3015 / 3015 2615 / 2615 100 / 100 LR 1000 mL Inj 1,000 ML @ 125 1000 / 1000 2000 / 2000 mls/hr IV.CONT .Q8H [facility] Rx#: [id number] Azithromycin Inj 500 MG In NS 250 / 250 Inj 250 ML @ 250 mls/hr IV.SIG ONCE ONE Rx#:[id number] Maxipime Inj 2,000 MG In NS Inj 200 / 200 100 / 100 100 / 100 100 ML @ 200 mls/hr IV.SIG Q8H [facility] Rx#:[id number] NS Inj 1,000 ML @ Wide Open IV. 1000 / 1000 SIG BOLUS ONE Rx#:[id number] NS Inj 250 ML @ 15 mls/hr IV. 50 / 50 SIG ONCE [facility] Rx#:[id number] Vancomycin Inj 1,500 MG In NS 515 / 515 515 / 515 Inj 500 ML @ 257.5 mls/hr IV. SIG Q12H [facility] Rx#:[id number] Oral 1200 / 1200 240 / 240 Intake (Blood Product) Amt 800 / 800 583 / 583 Plt Pheresis C Leukored Pas 183 / 183 Unit [id number] Rbc As-3 Leukoreduced Unit 400 / 400 [id number] Rbc As-3 Leukoreduced Unit 400 / 400 [id number] Rbc As-3 Leukoreduced Irrad 400 / 400 Unit [id number] Output: Urine 1625 / 1625 1100 / 1100 Wound Drainage 50 / 50 Right Anterior Abdomen 50 / 50 Other: Date of Last Bowel Movement 04/29/18 04/30/18 # Bowel Movements 1 Result Diagrams: 04/30/18 04:07 04/30/18 18:00 Laboratory Results: Laboratory Results - last 24 hr 04/29/18 04/29/18 04/29/18 09:29 12:34 15:05 WBC 0.5 L D RBC 2.72 L Hgb 7.4 L Hct 20.6 L* MCV 75.8 L MCH 27.2 MCHC 35.9 RDW 16.4 Plt Count 18 L* D MPV 10.1 Prelim Diff (Auto) Slide review pending Neut % (Auto) 91.2 H Lymph % (Auto) 1.5 L Ware % (Auto) 7.1 Eos % (Auto) 0.2 Baso % (Auto) 0.0 Neut # (Auto) 0.4 L* Lymph # (Auto) 0.0 L Ware # (Auto) 0.0 Eos # (Auto) 0.0 Baso # (Auto) 0.0 WBC Differential Manual diff final Seg Neuts % (Manual) 60 Band Neuts % (Manual) 35 H Lymphocytes % (Manual) Monocytes % (Manual) Metamyelocytes % (Man) 5 H Abs Neuts (Manual) 0.5 L* Differential Comment . Toxic Granulation Platelet Estimate Low L Platelet Morphology Normal Ovalocytes 1+ H Sodium Potassium Chloride Carbon Dioxide Anion Gap BUN Creatinine Estimated GFR POC Glucose 165 H Random Glucose Calcium Phosphorus Magnesium Total Bilirubin AST ALT Alkaline Phosphatase Total Protein Albumin MTS Gel Crossmatch See Detail Bld Prod Order Comment 04/29/18 04/29/18 04/29/18 18:25 19:17 19:37 WBC RBC Hgb Hct MCV MCH MCHC RDW Plt Count MPV Prelim Diff (Auto) Neut % (Auto) Lymph % (Auto) Ware % (Auto) Eos % (Auto) Baso % (Auto) Neut # (Auto) Lymph # (Auto) Ware # (Auto) Eos # (Auto) Baso # (Auto) WBC Differential Seg Neuts % (Manual) Band Neuts % (Manual) Lymphocytes % (Manual) Monocytes % (Manual) Metamyelocytes % (Man) Abs Neuts (Manual) Differential Comment Toxic Granulation Platelet Estimate Platelet Morphology Ovalocytes Sodium 138 Potassium 4.3 Chloride 105 Carbon Dioxide 27.7 Anion Gap 5 BUN 10 Creatinine 0.66 Estimated GFR Greater than 89 POC Glucose 109 Random Glucose 112 H Calcium 8.0 L Phosphorus Magnesium Total Bilirubin 3.6 H AST 28 ALT 35 Alkaline Phosphatase 147 H Total Protein 5.7 L D Albumin 1.8 L MTS Gel Crossmatch Bld Prod Order Comment 04/29/18 04/30/18 04/30/18 23:45 00:15 04:07 WBC 0.5 L RBC 2.94 L Hgb 7.8 L Hct 22.6 L MCV 77.0 L MCH 26.5 L MCHC 34.5 RDW 17.3 H Plt Count 19 L* MPV 10.1 Prelim Diff (Auto) Manual diff required Neut % (Auto) Lymph % (Auto) Ware % (Auto) Eos % (Auto) Baso % (Auto) Neut # (Auto) Lymph # (Auto) Ware # (Auto) Eos # (Auto) Baso # (Auto) WBC Differential Manual diff final Seg Neuts % (Manual) 50 Band Neuts % (Manual) 36 H Lymphocytes % (Manual) 6 L Monocytes % (Manual) 4 Metamyelocytes % (Man) 4 H Abs Neuts (Manual) 0.5 L* Differential Comment . Toxic Granulation 3+ H Platelet Estimate Rare L Platelet Morphology Normal Ovalocytes 1+ H Sodium Potassium Chloride Carbon Dioxide Anion Gap BUN Creatinine Estimated GFR POC Glucose 125 H Random Glucose Calcium Phosphorus Magnesium Total Bilirubin AST ALT Alkaline Phosphatase Total Protein Albumin MTS Gel Crossmatch See Detail Bld Prod Order Comment 04/30/18 04:07 WBC RBC Hgb Hct MCV MCH MCHC RDW Plt Count MPV Prelim Diff (Auto) Neut % (Auto) Lymph % (Auto) Ware % (Auto) Eos % (Auto) Baso % (Auto) Neut # (Auto) Lymph # (Auto) Ware # (Auto) Eos # (Auto) Baso # (Auto) WBC Differential Seg Neuts % (Manual) Band Neuts % (Manual) Lymphocytes % (Manual) Monocytes % (Manual) Metamyelocytes % (Man) Abs Neuts (Manual) Differential Comment Toxic Granulation Platelet Estimate Platelet Morphology Ovalocytes Sodium 139 Potassium 3.2 L D Chloride 104 Carbon Dioxide 26.4 Anion Gap 9 BUN 8 Creatinine 0.60 Estimated GFR Greater than 89 POC Glucose Random Glucose 95 Calcium 7.6 L Phosphorus 2.4 L Magnesium 1.7 Total Bilirubin 2.2 H AST 22 ALT 31 Alkaline Phosphatase 142 H Total Protein 5.6 L Albumin 1.8 L MTS Gel Crossmatch Bld Prod Order Comment Culture Results: Microbiology 04/29/18 07:50 Gram Stain - Final Sputum - Expectorated Sputum 04/28/18 23:30 Aerobic Blood Culture - Preliminary Blood - Peripheral gram positive cocci Anaerobic Blood Culture - Preliminary gram positive cocci 04/28/18 23:45 Aerobic Blood Culture - Preliminary Blood - Peripheral gram positive cocci Anaerobic Blood Culture - Preliminary gram positive cocci 04/29/18 09:50 Streptococcus pneumoniae Antigen (M - Final Urine - Clean Catch Urine Presumptive negative for streptococcus pneumoniae antigen, suggesting no current or recent infection. Infection due to Streptococcus pneumoniae cannot be ruled out since the antigen present in the sample may be below the detection limit of the test. 04/29/18 09:50 Legionella Antigen - Final Urine - Clean Catch Urine Presumptive negative for Legionella pneumophila serogroup 1 antigen in urine, suggesting no recent or recurrent infection. Infection due to Legionella cannot be ruled out since other serogroups and species may cause disease, antigen may not be present in urine in early infection, and the level of antigen present in the urine may be below the detection limit of the test. 04/29/18 08:20 Influenza Types A,B Antigen - Final Nasal Wash Negative for FLU A and B antigen Infection due to influenza A or B cannot be ruled out since the antigen present in the sample may be below the detection limit of the test. Medications: Active Medications Generic Name Dose Route Start Last Admin Trade Name Freq PRN Reason Stop Dose Admin Albuterol 1 ampul 04/29/18 04:00 04/30/18 08:54 Duoneb Neb ([facility]) NEB 1 ampul Q6HR NEB [facility] Administration Chlorhexidine Gluconate 3 pack 04/29/18 04:00 04/30/18 04:14 Chlorhexidine 2% Cloth TOPICAL 05/04/18 03:59 3 pack DAILY@0400 [facility] Administration Filgrastim 480 mcg 04/29/18 14:00 04/29/18 15:12 Neupogen Inj SQ 480 mcg DAILY@1400 [facility] Administration Hydromorphone HCl 0.5 mg 04/29/18 05:03 04/29/18 13:01 Dilaudid Pf Inj IV.PUSH 0.5 mg Q1H PRN Administration pain 8-10 or not taking po Cefepime HCl 2,000 mg/ Sodium 100 mls @ 200 mls/hr 04/29/18 08:00 04/30/18 08 :56 Chloride IV.SIG Infused Q8H [facility] Infusion Lactated Ringer's 1,000 mls @ 125 mls/hr 04/29/18 02:00 04/30/18 06:17 Lr 1000 Ml Inj IV.CONT 125 mls/hr .Q8H [facility] Administration Potassium Phosphate 30 mmol/ 260 mls @ 42 mls/hr 04/29/18 01:51 04/30/18 06: 12 Sodium Chloride IV.SIG 42 mls/hr UNSCH PRN Administration SEE LABEL COMMENTS Sodium Chloride 250 mls @ 15 mls/hr 04/29/18 20:00 04/29/18 22:04 Ns Inj IV.SIG 04/30/18 12:39 15 mls/hr ONCE [facility] Administration Sodium Chloride 250 mls @ 15 mls/hr 04/30/18 06:00 04/30/18 05:38 Ns Inj IV.SIG 04/30/18 22:39 Not Given ONCE [facility] Insulin Human Regular 0 units 04/29/18 06:00 04/30/18 05:44 Novolin R Correctional Sugar Inj SQ Not Given Q6HR [facility] Protocol Lactulose 30 ml 04/29/18 09:00 04/30/18 08:05 Lactulose Liq PO Not Given BID [facility] Morphine Sulfate 8 mg 04/29/18 19:39 04/30/18 08:04 Morphine Inj IV.PUSH 8 mg Q4H PRN Administration PAIN SCALE 6-10 OR SEVERE SOB Multi-Ingredient Mouthwash/Gargle 5 ml 04/29/18 21:00 04/30/18 08:05 Magic Mouthwash Adult Liq SWISH-SWAL 5 ml QID [facility] Administration Oxycodone HCl 5 mg 04/29/18 01:51 04/30/18 11:11 Roxicodone PO 5 mg Q4H PRN Administration Pain 1-5 Pantoprazole Sodium 40 mg 04/29/18 02:00 04/30/18 02:10 Protonix Inj IV.PUSH 40 mg Q24H [facility] Administration Polyethylene Glycol 17 gm 04/29/18 09:00 04/30/18 08:05 Miralax PO Not Given BID [facility] Senna/Docusate Sodium 1 tab 04/29/18 09:00 04/30/18 08:05 Naa-Colace PO Not Given BID [facility] Objective Remarks: GENERAL: Chronically ill-appearing male patient, in no acute distress. SKIN: Warm and dry. HEAD: Normocephalic. EYES: No scleral icterus. No injection or drainage. MOUTH: Lower lip lesion at midline, black with no epidermis covering. NECK: Supple. CARDIOVASCULAR: Tachycardic without murmurs. Heart rate 120 bpm. RESPIRATORY: Breath sounds on right her course and distant left clear.nonlabored at rest, O2 via nasal cannula at 3 L. GASTROINTESTINAL: Abdomen soft, non-tender, nondistended. EXTREMITIES: No cyanosis, or edema. MUSCULOSKELETAL: Adequate muscle tone. NEUROLOGICAL: No obvious focal deficit. Awake, alert, and oriented x3. PSYCHIATRIC: Flat affect; insight and judgment normal. Assessment/Plan - Plan Mr. Turner is a 43-year-old man with second recurrent aggressive T-cell lymphoblastic lymphoma. He is status post cycle 1 of ICE salvage chemotherapy at the same time as a right VATS thoracotomy for his recurrent pleural effusion. He has pancytopenia from his recent chemotherapy. He is admitted with fever, sepsis and pancytopenia. Plan: 1. Pancytopenia, continue supportive transfusions, no transfusions warranted today. Maintain hemoglobin greater than 7.4 and platelets greater than 15,000. 2. Neutropenic fever, T-max 100.2 F. Blood cultures on 04/28 growing gram- positive cocci. Currently on cefepime and vancomycin. Infectious disease is following. Continues on Neupogen 3. Right pleural effusion, moderate-sized. Patient has Pleurx catheter on right side. If he warrants thoracentesis, send specimen for cytology. Orders have been placed on the chart. 4. Pericardial effusion, CTA shows moderate sized with an increase in size when compared to prior study. 5. Continue to monitor for bleeding. - Attending Statement The exam, history, and the medical decision-making described in the above note were completed with the assistance of the mid-level provider. I reviewed and agree with the findings presented. I attest that I had a [id number] encounter with the patient on the same day, and personally performed and documented my assessment and findings in the medical record. Patient discussed with his nurse during change of shift. Plan for thoracentesis. The Pleurx catheter. Fluid will be sent for cytology. Minimal fluid of 50 mL is removed from the the other day. He has been afebrile for 24 hours. His blood pressure is stable. He continues to be pancytopenic. No transfusion is needed at this point. G-CSF continue. Anticipate transfusing for hemoglobin less than 7.5 her symptoms. Goal is to keep platelet count above 15,000. Noted antibiotic therapy continues per infectious disease for gram-positive laila bacteremia. Pain is well controlled. Bowel movement x3 thanks to MiraLAX and stool softener the night prior. Anticipate transferred to oncology floor. Potassium will be replaced orally.
[2018-04-30 18:56] LABS: Potassium 3.3 meq/L (3.5-5.1)
[2018-04-30 19:01] LABS: Phosphorus 2.1 mg/dL (2.5-4.9)
[2018-05-01] MEDS: Morphine Inj 4 MG/ML Vial IV.PUSH PRN ×3 (00:10→08:10)
[2018-05-01] MEDS: Insulin NovoLIN Regular Correctional Sugar Inj SQ SCH ×4 (00:15→17:21)
[2018-05-01] MEDS: Pantoprazole Inj 40 MG Vial IV.PUSH SCH (01:15)
[2018-05-01] MEDS: Vancomycin Inj 1,500 MG in Sodium Chlor 0.9% Inj 500 ML IV.SIG SCH ×2 (04:09→14:32)
[2018-05-01] MEDS: Chlorhexidine Gluconate 2% 1 Pack (2 Cloths) TOPICAL SCH (04:10)
[2018-05-01 05:46] LABS: Eos % (Auto) 0.3 % (0.0-4.0); Hematocrit 23.1 % (39.0-51.0); Hemoglobin 7.8 gm/dL (13.0-17.0); Lymph % (Auto) 4.8 % (9.0-44.0); Mean Corpuscular HGB Conc 33.8 % (32.0-36.0); Mean Platelet Volume 10.9 fL (7.0-11.0); Mono # (Auto) 0.1 th/mm3 (0.0-0.9); Mono % (Auto) 10.9 % (0.0-8.0); Neut # (Auto) 0.8 th/mm3 (1.8-7.7); Red Cell Distribution Width 17.1 % (11.6-17.2)
[2018-05-01 06:03] LABS: Platelet Count 18 th/mm3 (150-450)
[2018-05-01 06:19] LABS: Alanine Aminotransferase 26 U/L (12-78); Albumin 1.8 g/dL (3.4-5.0); Alkaline Phosphatase 125 U/L (45-117); Anion Gap 7 meq/L (5-15); Aspartate Aminotransferase 16 U/L (15-37); Blood Urea Nitrogen 5 mg/dL (7-18); Calcium 8.5 mg/dL (8.5-10.1); Carbon Dioxide 28.6 meq/L (21.0-32.0); Chloride 102 meq/L (98-107); Glomerular Filtration Rate Greater Than 89 mL/min (>89); Glucose,Random 101 mg/dL (74-106); Magnesium 1.6 mg/dL (1.5-2.5); Phosphorus 1.9 mg/dL (2.5-4.9); Potassium 3.5 meq/L (3.5-5.1); Sodium 138 meq/L (136-145); Total Protein 5.8 g/dL (6.4-8.2)
[2018-05-01 08:17] LABS: Dohle Bodies Present; Lymphocytes 3 % (9-44); Monocytes 8 % (0-8); Myelocytes 2 % (0-0); Platelet Estimate Rare (Normal); Platelet Morphology Normal (Normal); Toxic Granulation 1+
[2018-05-01] MEDS: Nystatin/Diphenhydramine/Lidocaine Mouthwash (Adult) 120 ML Botttle SWISH-SWAL SCH ×4 (08:36→20:37)
[2018-05-01] MEDS: Polyethylene Glycol 3350 17 GM Packet PO SCH ×2 (08:37→20:04)
[2018-05-01] MEDS: Senna/Docusate Sodium 8.6/50 MG Tablet PO SCH ×2 (08:38→20:04)
--- NOTE | 2018-05-01 08:40 | P.PNIM ---
Subjective Interval history: f/u; neutropenic fever in no acute distress. says that overall he's feeling better. no fever. had minimal nose bleed earlier. d/w the RN and no acute issues over night. Physical Exam Vital signs: Last Vital Signs Temp 98.9 F 05/01/18 04:00 Pulse 107 H 05/01/18 04:00 Resp 21 05/01/18 04:13 BP 130/80 05/01/18 04:00 Pulse Ox 93 L 05/01/18 04:00 Intake & Output 04/29/18 04/30/18 05/01/18 05/02/18 06:59 06:59 06:59 06:59 Intake Total 1639 / 1639 8453 / 8453 6845 / 6845 Output Total 2775 / 2775 3950 / 3950 Balance 1639 / 1639 5678 / 5678 2895 / 2895 Weight 85 kg 86.5 kg 93 kg Constitutional no acute distress Routine Respiratory Exam Present CTA bilaterally Routine Cardiovascular Exam Present tachycardia Routine Abdominal Exam Present soft Routine Extremities Exam Comments: no pedal edema. Routine Neurological Exam Present alert and oriented X3 Results Labs CBC & Chem 7: 05/01/18 05:30 05/01/18 05:30 Labs: Microbiology 04/28/18 23:30 Blood - Peripheral Aerobic Blood Culture - Preliminary Staphylococcus aureus 04/28/18 23:30 Blood - Peripheral Anaerobic Blood Culture - Preliminary Staphylococcus aureus 04/28/18 23:45 Blood - Peripheral Aerobic Blood Culture - Preliminary Staphylococcus aureus 04/28/18 23:45 Blood - Peripheral Anaerobic Blood Culture - Preliminary Staphylococcus aureus 04/29/18 07:50 Sputum - Expectorated Sputum Gram Stain - Final 04/29/18 07:50 Sputum - Expectorated Sputum Sputum Culture - Preliminary Heavy growth normal respiratory edgard at 24 hours Assessment and Plan Plan Assessment: 43yM with history of non-Hodgkin's lymphoma now with neutropenic severe sepsis. suspect pulmonary source given cough and SOB. -Healthcare associated pneumonia/Neutropenic severe sepsis staph aureus bacteremia continue with broad spectrum IV antibiotics-on Neupoegen- follow the cultures.ID and oncology following. -Right pleural effusion, moderate-sized. Patient has Pleurx catheter on right side. -Anemia /Thrombocytopenia secondary to chemotherapy PRBC/ Platetlet transfusion as needed- per Oncology -Hypotension secondary to intravascular volume depletion- now has resolved. -pericardial effusion; echo with mild to moderate pericardial effusion without tamponade. -history of DVT; hold Xarelto for now due to thrombocytopenia. protonix for GI ppx. SCDs transfer to Oncology. d/w the [facility].
[2018-05-01] MEDS ORDERED: Sodium Chloride 0.65% Nasal Spray 45 ML Bottle EACH NARE PRN (10:02)
[2018-05-01] MEDS: Sodium Glycerophosphate Inj 30 MMOL in Sodium Chlor 0.9% Inj 250 ML IV.SIG PRN ×2 (10:34→10:50)
[2018-05-01] MEDS ORDERED: Pharmacy Ordered Lab Info OTHER ONE (11:45)
[2018-05-01] MEDS: Morphine Inj 4 MG/ML Vial IV.PUSH SCH ×3 (13:11→20:03)
--- NOTE | 2018-05-01 14:56 | P.PNID ---
Subjective Remarks: Delayed entry. Patient seen around 1 PM. Patient felt okay Afebrile. Still has pain in the left chest. Denies chills. Denies shortness of breath. Blood culture has staph aureus. Methicillin sensitive. White blood cell count remain low. 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 The patient has been undergoing chemotherapeutic treatments. He was noted to have recurrence of the T-cell lymphoma. He was admitted to the hospital on 04/28/2018. He last received chemotherapy approximately 10 days ago and he started to get fever and also developed chest pain and chills and presented to the emergency department for evaluation. The patient had a temperature of 101.6 in the emergency department and the heart rate was 147. His white blood cell count was low at 0.2. His platelet count was also low at 6. Chest x-ray shows near complete opacification of the right hemithorax with slight increase when compared to prior study of 04/19/2018. The patient has been known to have opacification of the right hemithorax and he has had multiple thoracenteses for pleural effusion. He reports to me that he coughs up slight yellow sputum occasionally and that he has been having chills over the last few nights and also has been feeling very tired. The patient also reports that he has had some nose bleeding over the past 2 days and that there was some blood-tinged sputum, which he feels is likely related to the nosebleed. He has had occasional dry cough and soreness of the throat and body aches. ID consulted for neutropenic fever. Past Medical History: PAST MEDICAL HISTORY: T-cell lymphoblastic lymphoma. The patient has been receiving chemotherapy. Also, asthma, herniated disks, pleural effusion, pneumonia in 2017. Allergies/Adverse Reactions: Allergies adhesive tape Adverse Reaction (Verified 04/12/18 03:58) Blister Objective Vital Signs 04/30/18 15:00 04/30/18 15:33 04/30/18 16:00 Temperature 99.3 F Pulse Rate 105 H 107 H 115 H Respiratory Rate 26 H 20 26 H Blood Pressure 125/71 129/76 Pulse Oximetry 96 96 04/30/18 17:00 04/30/18 18:00 04/30/18 20:26 Temperature Pulse Rate 102 H 103 H Respiratory Rate 17 22 22 Blood Pressure Pulse Oximetry 95 98 04/30/18 21:03 05/01/18 00:00 05/01/18 00:17 Temperature 99.2 F Pulse Rate 117 H 110 H Respiratory Rate 20 30 H 19 Blood Pressure 142/85 H Pulse Oximetry 97 98 05/01/18 03:57 05/01/18 04:00 05/01/18 04:13 Temperature 98.9 F Pulse Rate 104 H 107 H Respiratory Rate 15 18 21 Blood Pressure 130/80 Pulse Oximetry 93 L 05/01/18 08:00 05/01/18 09:00 05/01/18 10:02 Temperature Pulse Rate 119 H 108 H Respiratory Rate 18 Blood Pressure Pulse Oximetry 97 95 Intake & Output 04/30/18 05/01/18 05/01/18 18:59 06:59 18:59 Intake Total 3275 / 3275 3570 / 3570 2099 / 2099 Output Total 1750 / 1750 2200 / 2200 Balance 1525 / 1525 1370 / 1370 2099 / 2100 Weight 93 kg Intake: IV 1974 / 1974 2130 / 2130 2100 / 2100 LR 1000 mL Inj 1,000 ML @ 100 1000 / 1000 1000 / 1000 2000 / 2000 mls/hr IV.CONT .Q10H BANDAR Rx#: [id number] Maxipime Inj 2,000 MG In NS Inj 200 / 200 100 / 100 100 / 100 100 ML @ 200 mls/hr IV.SIG Q8H BANDAR Rx#:[id number] Potassium Phosphate Inj 30 MMOL 260 / 260 In NS Inj 250 ML @ 42 mls/hr IV.SIG UNSCH PRN Rx#:[id number] NS Inj 250 ML @ 15 mls/hr IV. 0 / 0 SIG ONCE BANDAR Rx#:[id number] Vancomycin Inj 1,500 MG In NS 515 / 515 1030 / 1030 Inj 500 ML @ 257.5 mls/hr IV. SIG Q8H BANDAR Rx#:[id number] Oral 1300 / 1300 1440 / 1440 Output: Urine 1750 / 1750 2200 / 2200 Other: Date of Last Bowel Movement 04/30/18 04/30/18 04/30/18 # Bowel Movements 1 1 04/28/18 23:30 Blood - Peripheral Aerobic Blood Culture - Final Staphylococcus aureus 04/28/18 23:30 Blood - Peripheral Anaerobic Blood Culture - Final Staphylococcus aureus 04/28/18 23:45 Blood - Peripheral Aerobic Blood Culture - Final Staphylococcus aureus 04/28/18 23:45 Blood - Peripheral Anaerobic Blood Culture - Final Staphylococcus aureus 04/29/18 07:50 Sputum - Expectorated Sputum Gram Stain - Final 04/29/18 07:50 Sputum - Expectorated Sputum Sputum Culture - Final Heavy growth normal respiratory edgard 04/29/18 09:50 Urine - Clean Catch Urine Streptococcus pneumoniae Antigen ( M - Final Presumptive negative for streptococcus pneumoniae antigen, suggesting no current or recent infection. Infection due to Streptococcus pneumoniae cannot be ruled out since the antigen present in the sample may be below the detection limit of the test. 04/29/18 09:50 Urine - Clean Catch Urine Legionella Antigen - Final Presumptive negative for Legionella pneumophila serogroup 1 antigen in urine, suggesting no recent or recurrent infection. Infection due to Legionella cannot be ruled out since other serogroups and species may cause disease, antigen may not be present in urine in early infection, and the level of antigen present in the urine may be below the detection limit of the test. 04/29/18 08:20 Nasal Wash Influenza Types A,B Antigen - Final Negative for FLU A and B antigen Infection due to influenza A or B cannot be ruled out since the antigen present in the sample may be below the detection limit of the test. Lab - Hematology Results 04/29/18 04/30/18 05/01/18 15:05 04:07 05:30 WBC 0.5 L D 0.5 L 1.0 L RBC 2.72 L 2.94 L 3.00 L Hgb 7.4 L 7.8 L 7.8 L Hct 20.6 L* 22.6 L 23.1 L MCV 75.8 L 77.0 L 77.0 L MCH 27.2 26.5 L 26.0 L MCHC 35.9 34.5 33.8 RDW 16.4 17.3 H 17.1 Plt Count 18 L* D 19 L* 18 L* MPV 10.1 10.1 10.9 Prelim Diff (Auto) Slide review pending Manual diff required Slide review pending Neut % (Auto) 91.2 H 84.0 H Lymph % (Auto) 1.5 L 4.8 L [place] % (Auto) 7.1 10.9 H Eos % (Auto) 0.2 0.3 Baso % (Auto) 0.0 0.0 Neut # (Auto) 0.4 L* 0.8 L Lymph # (Auto) 0.0 L 0.0 L [place] # (Auto) 0.0 0.1 Eos # (Auto) 0.0 0.0 Baso # (Auto) 0.0 0.0 WBC Differential Manual diff final Manual diff final Manual diff final Seg Neuts % (Manual) 60 50 51 Band Neuts % (Manual) 35 H 36 H 35 H Lymphocytes % (Manual) 6 L 3 L Monocytes % (Manual) 4 8 Basophils % (Manual) 1 Metamyelocytes % (Man) 5 H 4 H Myelocytes % (Man) 2 H Abs Neuts (Manual) 0.5 L* 0.5 L* 0.9 L Differential Comment . . . Toxic Granulation 3+ H 1+ H Dohle Bodies Present H Platelet Estimate Low L Rare L Rare L Platelet Morphology Normal Normal Normal Ovalocytes 1+ H 1+ H Lab - Chemistry Results 04/29/18 04/29/18 04/29/18 18:25 19:17 23:45 Sodium 138 Potassium 4.3 Chloride 105 Carbon Dioxide 27.7 Anion Gap 5 BUN 10 Creatinine 0.66 Estimated GFR Greater than 89 POC Glucose 109 125 H Random Glucose 112 H Calcium 8.0 L Phosphorus Magnesium Total Bilirubin 3.6 H AST 28 ALT 35 Alkaline Phosphatase 147 H Total Protein 5.7 L D Albumin 1.8 L 04/30/18 04/30/18 04/30/18 04:07 11:56 18:00 Sodium 139 Potassium 3.2 L D 3.3 L Chloride 104 Carbon Dioxide 26.4 Anion Gap 9 BUN 8 Creatinine 0.60 Estimated GFR Greater than 89 POC Glucose 142 H Random Glucose 95 Calcium 7.6 L Phosphorus 2.4 L 2.1 L Magnesium 1.7 Total Bilirubin 2.2 H AST 22 ALT 31 Alkaline Phosphatase 142 H Total Protein 5.6 L Albumin 1.8 L 04/30/18 05/01/18 05/01/18 23:26 05:30 13:21 Sodium 138 Potassium 3.5 Chloride 102 Carbon Dioxide 28.6 Anion Gap 7 BUN 5 L Creatinine 0.50 L Estimated GFR Greater than 89 POC Glucose 106 101 Random Glucose 101 Calcium 8.5 D Phosphorus 1.9 L Magnesium 1.6 Total Bilirubin 1.0 AST 16 ALT 26 Alkaline Phosphatase 125 H Total Protein 5.8 L Albumin 1.8 L Imaging: ITS Impressions Chest X-Ray 04/28/18 23:38 CONCLUSION: 1. Near complete opacification of the right hemithorax with slight increase when compared to the prior study of 04/19/2018. 2. New mild patchy opacity at the left lung base. Chest CTA 04/29/18 00:00 CONCLUSION: 1. No evidence of pulmonary embolus. 2. Moderate-sized right pleural effusion again seen along with scattered gas within the pleural effusion. 3. Extensive diffuse right lung consolidation again seen. 4. Moderate severity multifocal patchy consolidation in the left lung is new. 5. Moderate-sized pericardial effusion, increased in size when compared to the prior study. Physical Exam: GENERAL: No acute distress. Awake and alert and oriented. HEENT: The head is atraumatic. Extraocular movements grossly intact. Pupils reactive to light. The pupils are constricted. No icterus. No conjunctival erythema. Oropharynx moist mucosa without visible lesions. There is a scabbed, dried lesion in the mid aspect of the lower lip. NECK: Supple without adenopathy. LUNGS: Decreased breath sounds. HEART: Regular S1 and S2, without audible murmurs. ABDOMEN: Bowel sounds present. Soft, mildly obese, nontender. EXTREMITIES: No clubbing or cyanosis or edema. SKIN: No rash. Warm and moist. NEUROLOGIC: No gross focal finding. PSYCHIATRIC: Calm and cooperative. Assessment and Plan - Plan IMPRESSION: 1. Bacteremia due to MSSA. 2. Neutropenia and fever. White blood cell count remain low. 3. T-cell lymphoblastic lymphoma, status post chemotherapy. 4. Pneumonia of the left lung, along with consolidation/effusion of the right lung. RECOMMENDATIONS: 1. Stop cefepime. 2. Stop vancomycin. 3. Start cefazolin IV. 4. Monitor temperature. 5. Monitor white blood cell count. Discussed with RN and at bedside.
[2018-05-01] MEDS ORDERED: ceFAZolin Inj 2,000 MG in Sodium Chlor 0.9% Inj 80 ML IV.SIG SCH (15:00)
--- NOTE | 2018-05-01 15:24 | P.PNONC ---
Subjective Interval history: Afebrile. Patient sitting up in bed watching a movie. He reports "a pulled muscle pain" in his left scapular area. He reports this is been going on for some time. Denies shortness of breath. Denies any bleeding. Awaiting transfer out of the ICU. Objective Vital Signs/Intake & Output: Vital Signs 04/30/18 15:33 04/30/18 16:00 04/30/18 17:00 Temperature 99.3 F Pulse Rate 107 H 115 H 102 H Respiratory Rate 20 26 H 17 Blood Pressure 129/76 Pulse Oximetry 96 95 04/30/18 18:00 04/30/18 20:26 04/30/18 21:03 Temperature Pulse Rate 103 H 117 H Respiratory Rate 22 22 20 Blood Pressure Pulse Oximetry 98 97 05/01/18 00:00 05/01/18 00:17 05/01/18 03:57 Temperature 99.2 F Pulse Rate 110 H 104 H Respiratory Rate 30 H 19 15 Blood Pressure 142/85 H Pulse Oximetry 98 05/01/18 04:00 05/01/18 04:13 05/01/18 08:00 Temperature 98.9 F 98.9 F Pulse Rate 107 H 105 H Respiratory Rate 18 21 20 Blood Pressure 130/80 134/82 Pulse Oximetry 93 L 93 L 05/01/18 09:00 05/01/18 10:02 05/01/18 12:00 Temperature 98.8 F Pulse Rate 119 H 108 H 102 H Respiratory Rate 18 21 Blood Pressure 134/76 Pulse Oximetry 95 93 L Intake & Output 04/30/18 05/01/18 05/01/18 18:59 06:59 18:59 Intake Total 3275 / 3275 3570 / 3570 2099 / 2099 Output Total 1750 / 1750 2200 / 2200 Balance 1525 / 1525 1370 / 1370 2099 / 2099 Weight 93 kg Intake: IV 1974 / 1974 2130 / 0 2099 / 2099 LR 1000 mL Inj 1,000 ML @ 100 1000 / 1000 1000 / 1000 2000 / 2000 mls/hr IV.CONT .Q10H SUZ[facility] Rx#: [id number] Maxipime Inj 2,000 MG In NS Inj 200 / 200 100 / 100 100 / 100 100 ML @ 200 mls/hr IV.SIG Q8H SUZAN Rx#:[id number] Potassium Phosphate Inj 30 MMOL 260 / 260 In NS Inj 250 ML @ 42 mls/hr IV.SIG UNSCH PRN Rx#:[id number] NS Inj 250 ML @ 15 mls/hr IV. 0 / 0 SIG ONCE SUZAN Rx#:[id number] Vancomycin Inj 1,500 MG In NS 515 / 515 1030 / 1030 Inj 500 ML @ 257.5 mls/hr IV. SIG Q8H SUZAN Rx#:[id number] Oral 1300 / 1300 1440 / 1440 Output: Urine 1750 / 1750 2200 / 2200 Other: Date of Last Bowel Movement 04/30/18 04/30/18 04/30/18 # Bowel Movements 1 1 Result Diagrams: 05/01/18 05:30 05/01/18 05:30 Laboratory Results: Laboratory Results - last 24 hr 04/30/18 04/30/18 05/01/18 18:00 23:26 05:30 WBC 1.0 L RBC 3.00 L Hgb 7.8 L Hct 23.1 L MCV 77.0 L MCH 26.0 L MCHC 33.8 RDW 17.1 Plt Count 18 L* MPV 10.9 Prelim Diff (Auto) Slide review pending Neut % (Auto) 84.0 H Lymph % (Auto) 4.8 L [place] % (Auto) 10.9 H Eos % (Auto) 0.3 Baso % (Auto) 0.0 Neut # (Auto) 0.8 L Lymph # (Auto) 0.0 L [place] # (Auto) 0.1 Eos # (Auto) 0.0 Baso # (Auto) 0.0 WBC Differential Manual diff final Seg Neuts % (Manual) 51 Band Neuts % (Manual) 35 H Lymphocytes % (Manual) 3 L Monocytes % (Manual) 8 Basophils % (Manual) 1 Myelocytes % (Man) 2 H Abs Neuts (Manual) 0.9 L Differential Comment . Toxic Granulation 1+ H Dohle Bodies Present H Platelet Estimate Rare L Platelet Morphology Normal Sodium Potassium 3.3 L Chloride Carbon Dioxide Anion Gap BUN Creatinine Estimated GFR POC Glucose 106 Random Glucose Calcium Phosphorus 2.1 L Magnesium Total Bilirubin AST ALT Alkaline Phosphatase Total Protein Albumin 05/01/18 05/01/18 05:30 13:21 WBC RBC Hgb Hct MCV MCH MCHC RDW Plt Count MPV Prelim Diff (Auto) Neut % (Auto) Lymph % (Auto) [place] % (Auto) Eos % (Auto) Baso % (Auto) Neut # (Auto) Lymph # (Auto) [place] # (Auto) Eos # (Auto) Baso # (Auto) WBC Differential Seg Neuts % (Manual) Band Neuts % (Manual) Lymphocytes % (Manual) Monocytes % (Manual) Basophils % (Manual) Myelocytes % (Man) Abs Neuts (Manual) Differential Comment Toxic Granulation Dohle Bodies Platelet Estimate Platelet Morphology Sodium 138 Potassium 3.5 Chloride 102 Carbon Dioxide 28.6 Anion Gap 7 BUN 5 L Creatinine 0.50 L Estimated GFR Greater than 89 POC Glucose 101 Random Glucose 101 Calcium 8.5 D Phosphorus 1.9 L Magnesium 1.6 Total Bilirubin 1.0 AST 16 ALT 26 Alkaline Phosphatase 125 H Total Protein 5.8 L Albumin 1.8 L Culture Results: Microbiology 04/28/18 23:30 Aerobic Blood Culture - Final Blood - Peripheral Staphylococcus aureus Anaerobic Blood Culture - Final Staphylococcus aureus 04/28/18 23:45 Aerobic Blood Culture - Final Blood - Peripheral Staphylococcus aureus Anaerobic Blood Culture - Final Staphylococcus aureus 04/29/18 07:50 Gram Stain - Final Sputum - Expectorated Sputum Sputum Culture - Final Heavy growth normal respiratory edgard 04/29/18 09:50 Streptococcus pneumoniae Antigen (M - Final Urine - Clean Catch Urine Presumptive negative for streptococcus pneumoniae antigen, suggesting no current or recent infection. Infection due to Streptococcus pneumoniae cannot be ruled out since the antigen present in the sample may be below the detection limit of the test. 04/29/18 09:50 Legionella Antigen - Final Urine - Clean Catch Urine Presumptive negative for Legionella pneumophila serogroup 1 antigen in urine, suggesting no recent or recurrent infection. Infection due to Legionella cannot be ruled out since other serogroups and species may cause disease, antigen may not be present in urine in early infection, and the level of antigen present in the urine may be below the detection limit of the test. 04/29/18 08:20 Influenza Types A,B Antigen - Final Nasal Wash Negative for FLU A and B antigen Infection due to influenza A or B cannot be ruled out since the antigen present in the sample may be below the detection limit of the test. Medications: Active Medications Generic Name Dose Route Start Last Admin Trade Name Freq PRN Reason Stop Dose Admin Albuterol 1 ampul 04/29/18 04:00 05/01/18 10:02 Duoneb Neb (Suzan) NEB 1 ampul Q6HR NEB SUZAN Administration Chlorhexidine Gluconate 3 pack 04/29/18 04:00 05/01/18 04:10 Chlorhexidine 2% Cloth TOPICAL 05/04/18 03:59 3 pack DAILY@0400 SUZAN Administration Filgrastim 480 mcg 04/29/18 14:00 05/01/18 13:23 Neupogen Inj SQ 480 mcg DAILY@1400 SUZAN Administration Lactated Ringer's 1,000 mls @ 100 mls/hr 04/29/18 02:00 05/01/18 10:45 Lr 1000 Ml Inj IV.CONT 125 mls/hr .Q10H SUZAN Administration Potassium Phosphate 30 mmol/ 260 mls @ 42 mls/hr 04/29/18 01:51 04/30/18 13: 00 Sodium Chloride IV.SIG Infused UNSCH PRN Infusion SEE LABEL COMMENTS Sodium Glycerophosphate 30 280 mls @ 42 mls/hr 05/01/18 07:18 05/01/18 10:50 mmol/ Sodium Chloride IV.SIG 42 mls/hr UNSCH PRN Administration For Phosphorus < 2.5 mg/dL Insulin Human Regular 0 units 04/29/18 06:00 05/01/18 13:24 Novolin R Correctional Sugar Inj SQ Not Given Q6HR REPLACED BY [facility] Protocol Lactulose 30 ml 04/29/18 09:00 05/01/18 08:37 Lactulose Liq PO Not Given BID REPLACED BY [facility] Morphine Sulfate 8 mg 05/01/18 13:00 05/01/18 13:11 Morphine Inj IV.PUSH 05/02/18 12:59 8 mg Q4H SUZAN Administration Multi-Ingredient Mouthwash/Gargle 5 ml 04/29/18 21:00 05/01/18 13:11 Magic Mouthwash Adult Liq SWISH-SWAL Not Given QID REPLACED BY [facility] Oxycodone HCl 5 mg 04/29/18 01:51 05/01/18 10:46 Roxicodone PO 5 mg Q4H PRN Administration Pain 1-5 Pantoprazole Sodium 40 mg 04/29/18 02:00 05/01/18 01:15 Protonix Inj IV.PUSH 40 mg Q24H SUZAN Administration Polyethylene Glycol 17 gm 04/29/18 09:00 05/01/18 08:37 Miralax PO Not Given BID REPLACED BY [facility] Potassium Phosphate 2,000 mg 04/29/18 01:51 05/01/18 01:14 K-Phos Original PO 2,000 mg UNSCH PRN Administration SEE LABEL COMMENTS Senna/Docusate Sodium 1 tab 04/29/18 09:00 05/01/18 08:38 Naa-Colace PO Not Given BID SUZAN Objective Remarks: GENERAL: Chronically ill-appearing male patient, in no acute distress. SKIN: Warm and dry. HEAD: Normocephalic. EYES: No scleral icterus. No injection or drainage. MOUTH: Lower lip lesion at midline, black with no epidermis covering. NECK: Supple. CARDIOVASCULAR: Normal rate and rhythm without murmurs. RESPIRATORY: Breath sounds on right her course and distant left clear.nonlabored at rest, O2 via nasal cannula at 4 L. GASTROINTESTINAL: Abdomen soft, non-tender, nondistended. EXTREMITIES: No cyanosis, or edema. MUSCULOSKELETAL: Adequate muscle tone. NEUROLOGICAL: No obvious focal deficit. Awake, alert, and oriented x3. PSYCHIATRIC: Flat affect; insight and judgment normal. Assessment/Plan - Plan Mr. Turner is a 43-year-old man with second recurrent aggressive T-cell lymphoblastic lymphoma. He is status post cycle 1 of ICE salvage chemotherapy at the same time as a right VATS thoracotomy for his recurrent pleural effusion. He has pancytopenia from his recent chemotherapy. He is admitted with fever, sepsis and pancytopenia. Plan: 1. Pancytopenia, continue supportive transfusions, no transfusions warranted today. Maintain hemoglobin greater than 7.4 and platelets greater than 15,000. 2. Neutropenic fever, afebrile times 24 hours. Blood cultures grew Staphylococcus aureus, sensitive to vancomycin. Currently on cefepime and vancomycin. Infectious disease is following. Continues on Neupogen 3. Right pleural effusion, moderate-sized. Patient has Pleurx catheter on right side. If he warrants thoracentesis, send specimen for cytology. Orders have been placed on the chart. I&O reports 50 mL drained from pleurX 4. Pericardial effusion, CTA shows moderate sized with an increase in size when compared to prior study. Echocardiogram shows small to moderate sized pericardial effusion with no evidence of hemodynamic compromise 5. Continue to monitor for bleeding.
[2018-05-01] MEDS: ceFAZolin 2 GM Premix Inj 2 GM/50 ML PIGGYBACK IV.SIG SCH (15:46)
[2018-05-02] MEDS: Morphine Inj 4 MG/ML Vial IV.PUSH SCH ×7 (00:04→23:59)
[2018-05-02] MEDS: ceFAZolin 2 GM Premix Inj 2 GM/50 ML PIGGYBACK IV.SIG SCH ×4 (00:04→23:59)
[2018-05-02] MEDS: Insulin NovoLIN Regular Correctional Sugar Inj SQ SCH ×2 (00:13→06:07)
[2018-05-02] MEDS: Acetaminophen 325 MG Tablet PO PRN ×2 (00:22→15:12)
[2018-05-02] MEDS: Pantoprazole Inj 40 MG Vial IV.PUSH SCH (02:31)
[2018-05-02] MEDS: Chlorhexidine Gluconate 2% 1 Pack (2 Cloths) TOPICAL SCH (04:04)
[2018-05-02 06:49] LABS: Baso % (Auto) 0.2 % (0.0-2.0); Eos % (Auto) 0.1 % (0.0-4.0); Hematocrit 22.3 % (39.0-51.0); Hemoglobin 7.6 gm/dL (13.0-17.0); Lymph # (Auto) 0.1 th/mm3 (1.0-4.8); Lymph % (Auto) 5.1 % (9.0-44.0); Mean Corpuscular Hemoglobin 26.5 pg (27.0-34.0); Mean Corpuscular Volume 77.8 fL (80.0-100.0); Mean Platelet Volume 11.2 fL (7.0-11.0); Mono # (Auto) 0.2 th/mm3 (0.0-0.9); Mono % (Auto) 13.1 % (0.0-8.0); Neut # (Auto) 1.2 th/mm3 (1.8-7.7); Neut % (Auto) 81.5 % (16.0-70.0); Red Blood Count 2.86 mil/mm3 (4.50-5.90); Red Cell Distribution Width 17.1 % (11.6-17.2); White Blood Count 1.5 th/mm3 (4.0-11.0)
[2018-05-02 07:24] LABS: Alanine Aminotransferase 28 U/L (12-78); Albumin 1.7 g/dL (3.4-5.0); Alkaline Phosphatase 110 U/L (45-117); Anion Gap 6 meq/L (5-15); Aspartate Aminotransferase 19 U/L (15-37); Blood Urea Nitrogen 5 mg/dL (7-18); Calcium 8.2 mg/dL (8.5-10.1); Carbon Dioxide 31.6 meq/L (21.0-32.0); Chloride 101 meq/L (98-107); Glomerular Filtration Rate Greater Than 89 mL/min (>89); Glucose,Random 92 mg/dL (74-106); Magnesium 1.7 mg/dL (1.5-2.5); Phosphorus 3.4 mg/dL (2.5-4.9); Potassium 3.3 meq/L (3.5-5.1); Sodium 139 meq/L (136-145); Total Protein 5.7 g/dL (6.4-8.2)
[2018-05-02 07:35] LABS: Platelet Count 15 th/mm3 (150-450)
[2018-05-02 08:42] LABS: Dohle Bodies Present; Lymphocytes 7 % (9-44); Metamyelocytes 2 % (0-1); Monocytes 7 % (0-8); Ovalocytes 1+; Platelet Morphology Normal (Normal); Tallied Nucleated RBC 2 (0-0); Toxic Granulation 3+; Toxic Vacuolation Present
[2018-05-02 08:43] LABS: Platelet Estimate Rare (Normal)
[2018-05-02] MEDS: Nystatin/Diphenhydramine/Lidocaine Mouthwash (Adult) 120 ML Botttle SWISH-SWAL SCH ×4 (08:43→20:23)
[2018-05-02] MEDS: Senna/Docusate Sodium 8.6/50 MG Tablet PO SCH ×2 (08:53→20:23)
[2018-05-02] MEDS ORDERED: Sodium Chlor 0.9% Inj 250 ML IV.SIG SCH (09:00)
[2018-05-02] MEDS: Polyethylene Glycol 3350 17 GM Packet PO SCH ×2 (09:15→20:23)
--- NOTE | 2018-05-02 11:41 | P.PNID ---
Subjective Remarks: Patient notes that he feels well. Afebrile. Still has pain in the left chest. No fever. No chills. No shortness of breath. Blood culture has staph aureus. Methicillin sensitive. White blood cell count improving. 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 The patient has been undergoing chemotherapeutic treatments. He was noted to have recurrence of the T-cell lymphoma. He was admitted to the hospital on 04/28/2018. He last received chemotherapy approximately 10 days ago and he started to get fever and also developed chest pain and chills and presented to the emergency department for evaluation. The patient had a temperature of 101.6 in the emergency department and the heart rate was 147. His white blood cell count was low at 0.2. His platelet count was also low at 6. Chest x-ray shows near complete opacification of the right hemithorax with slight increase when compared to prior study of 04/19/2018. The patient has been known to have opacification of the right hemithorax and he has had multiple thoracenteses for pleural effusion. He reports to me that he coughs up slight yellow sputum occasionally and that he has been having chills over the last few nights and also has been feeling very tired. The patient also reports that he has had some nose bleeding over the past 2 days and that there was some blood-tinged sputum, which he feels is likely related to the nosebleed. He has had occasional dry cough and soreness of the throat and body aches. ID consulted for neutropenic fever. Past Medical History: PAST MEDICAL HISTORY: T-cell lymphoblastic lymphoma. The patient has been receiving chemotherapy. Also, asthma, herniated disks, pleural effusion, pneumonia in 2017. Allergies/Adverse Reactions: Allergies adhesive tape Adverse Reaction (Verified 04/12/18 03:58) Blister Objective Vital Signs 05/01/18 12:00 05/01/18 16:00 05/01/18 17:35 Temperature 98.8 F 98.9 F Pulse Rate 102 H 108 H 102 H Respiratory Rate 21 17 20 Blood Pressure 134/76 129/80 Pulse Oximetry 93 L 96 05/01/18 20:00 05/01/18 22:14 05/02/18 00:00 Temperature 98 F 99.3 F Pulse Rate 114 H 105 H Respiratory Rate 18 15 18 Blood Pressure 135/82 139/83 Pulse Oximetry 95 95 05/02/18 04:00 05/02/18 06:33 05/02/18 08:00 Temperature 98.9 F Pulse Rate 96 H 104 H 109 H Respiratory Rate 18 16 Blood Pressure 144/81 H Pulse Oximetry 95 94 L 05/02/18 08:31 05/02/18 09:33 05/02/18 09:34 Temperature 98.9 F Pulse Rate 105 H 110 H Respiratory Rate 20 18 Blood Pressure 140/63 Pulse Oximetry 94 L 98 Intake & Output 05/01/18 05/02/18 05/02/18 18:59 06:59 18:59 Intake Total 4000 / 4000 290 / 290 Output Total 1550 / 1550 1900 / 1900 Balance 2450 / 2450 -1610 / -1610 Weight 91 kg Intake: IV 3280 / 3280 50 / 50 LR 1000 mL Inj 1,000 ML @ 100 2900 / 2900 mls/hr IV.CONT .Q10H BANDAR Rx#: [id number] Maxipime Inj 2,000 MG In NS Inj 100 / 100 100 ML @ 200 mls/hr IV.SIG Q8H BANDAR Rx#:[id number] Glycophos Inj 30 MMOL In NS Inj 280 / 280 250 ML @ 42 mls/hr IV.SIG UNSCH PRN Rx#:[id number] Ancef 2 GM Premix Inj 2 gm In 50 / 50 50 ml @ 100 mls/hr IV.SIG Q8H BANDAR Rx#:[id number] Oral 240 / 240 Tube Feeding 720 / 720 Output: Urine 1550 / 1550 1900 / 1900 Other: Date of Last Bowel Movement 04/30/18 04/30/18 04/30/18 05/02/18 10:43 Blood - Peripheral Aerobic Blood Culture - Pending 05/02/18 10:43 Blood - Peripheral Anaerobic Blood Culture - Pending 05/02/18 10:35 Blood - Peripheral Aerobic Blood Culture - Pending 05/02/18 10:35 Blood - Peripheral Anaerobic Blood Culture - Pending 04/28/18 23:30 Blood - Peripheral Aerobic Blood Culture - Final Staphylococcus aureus 04/28/18 23:30 Blood - Peripheral Anaerobic Blood Culture - Final Staphylococcus aureus 04/28/18 23:45 Blood - Peripheral Aerobic Blood Culture - Final Staphylococcus aureus 04/28/18 23:45 Blood - Peripheral Anaerobic Blood Culture - Final Staphylococcus aureus 04/29/18 07:50 Sputum - Expectorated Sputum Gram Stain - Final 04/29/18 07:50 Sputum - Expectorated Sputum Sputum Culture - Final Heavy growth normal respiratory edgard 04/29/18 09:50 Urine - Clean Catch Urine Streptococcus pneumoniae Antigen ( M - Final Presumptive negative for streptococcus pneumoniae antigen, suggesting no current or recent infection. Infection due to Streptococcus pneumoniae cannot be ruled out since the antigen present in the sample may be below the detection limit of the test. 04/29/18 09:50 Urine - Clean Catch Urine Legionella Antigen - Final Presumptive negative for Legionella pneumophila serogroup 1 antigen in urine, suggesting no recent or recurrent infection. Infection due to Legionella cannot be ruled out since other serogroups and species may cause disease, antigen may not be present in urine in early infection, and the level of antigen present in the urine may be below the detection limit of the test. 04/29/18 08:20 Nasal Wash Influenza Types A,B Antigen - Final Negative for FLU A and B antigen Infection due to influenza A or B cannot be ruled out since the antigen present in the sample may be below the detection limit of the test. Lab - Hematology Results 05/01/18 05/02/18 05:30 04:00 WBC 1.0 L 1.5 L RBC 3.00 L 2.86 L Hgb 7.8 L 7.6 L Hct 23.1 L 22.3 L MCV 77.0 L 77.8 L MCH 26.0 L 26.5 L MCHC 33.8 34.0 RDW 17.1 17.1 Plt Count 18 L* 15 L* MPV 10.9 11.2 H Prelim Diff (Auto) Slide review pending Slide review pending Neut % (Auto) 84.0 H 81.5 H Lymph % (Auto) 4.8 L 5.1 L [place] % (Auto) 10.9 H 13.1 H Eos % (Auto) 0.3 0.1 Baso % (Auto) 0.0 0.2 Neut # (Auto) 0.8 L 1.2 L Lymph # (Auto) 0.0 L 0.1 L [place] # (Auto) 0.1 0.2 Eos # (Auto) 0.0 0.0 Baso # (Auto) 0.0 0.0 WBC Differential Manual diff final Manual diff final Seg Neuts % (Manual) 51 57 Band Neuts % (Manual) 35 H 27 H Lymphocytes % (Manual) 3 L 7 L Monocytes % (Manual) 8 7 Basophils % (Manual) 1 Metamyelocytes % (Man) 2 H Myelocytes % (Man) 2 H Abs Neuts (Manual) 0.9 L 1.3 L Nucleated RBCs/100 WBC 2 H Differential Comment . . Toxic Granulation 1+ H 3+ H Toxic Vacuolation Present H Dohle Bodies Present H Present H Platelet Estimate Rare L Rare L Platelet Morphology Normal Normal Ovalocytes 1+ H Lab - Chemistry Results 04/30/18 04/30/18 04/30/18 11:56 18:00 23:26 Sodium Potassium 3.3 L Chloride Carbon Dioxide Anion Gap BUN Creatinine Estimated GFR POC Glucose 142 H 106 Random Glucose Calcium Phosphorus 2.1 L Magnesium Total Bilirubin AST ALT Alkaline Phosphatase Total Protein Albumin 05/01/18 05/01/18 05/01/18 05:30 13:21 17:16 Sodium 138 Potassium 3.5 Chloride 102 Carbon Dioxide 28.6 Anion Gap 7 BUN 5 L Creatinine 0.50 L Estimated GFR Greater than 89 POC Glucose 101 105 Random Glucose 101 Calcium 8.5 D Phosphorus 1.9 L Magnesium 1.6 Total Bilirubin 1.0 AST 16 ALT 26 Alkaline Phosphatase 125 H Total Protein 5.8 L Albumin 1.8 L 05/02/18 05/02/18 00:13 04:00 Sodium 139 Potassium 3.3 L Chloride 101 Carbon Dioxide 31.6 Anion Gap 6 BUN 5 L Creatinine 0.51 L Estimated GFR Greater than 89 POC Glucose 97 Random Glucose 92 Calcium 8.2 L Phosphorus 3.4 D Magnesium 1.7 Total Bilirubin 0.8 AST 19 ALT 28 Alkaline Phosphatase 110 Total Protein 5.7 L Albumin 1.7 L Imaging: ITS Impressions Chest X-Ray 04/28/18 23:38 CONCLUSION: 1. Near complete opacification of the right hemithorax with slight increase when compared to the prior study of 04/19/2018. 2. New mild patchy opacity at the left lung base. Chest CTA 04/29/18 00:00 CONCLUSION: 1. No evidence of pulmonary embolus. 2. Moderate-sized right pleural effusion again seen along with scattered gas within the pleural effusion. 3. Extensive diffuse right lung consolidation again seen. 4. Moderate severity multifocal patchy consolidation in the left lung is new. 5. Moderate-sized pericardial effusion, increased in size when compared to the prior study. Physical Exam: GENERAL: No acute distress. Awake and alert and oriented. HEENT: The head is atraumatic. Extraocular movements grossly intact. Pupils reactive to light. The pupils are constricted. No icterus. No conjunctival erythema. Oropharynx moist mucosa without visible lesions. There is a scabbed, dried lesion in the mid aspect of the lower lip. NECK: Supple without adenopathy. LUNGS: Decreased breath sounds. HEART: Regular S1 and S2, without audible murmurs. ABDOMEN: Bowel sounds present. Soft, mildly obese, nontender. EXTREMITIES: No clubbing or cyanosis or edema. SKIN: No rash. Warm and moist. NEUROLOGIC: No gross focal finding. PSYCHIATRIC: Calm and cooperative. Assessment and Plan - Plan IMPRESSION: 1. Bacteremia due to MSSA. 2. Neutropenia and fever. White blood cell count improving. 3. T-cell lymphoblastic lymphoma, status post chemotherapy. 4. Pneumonia of the left lung, along with consolidation/effusion of the right lung. RECOMMENDATIONS: 1. Continue cefazolin IV. 2. Repeat blood culture. 3. Monitor temperature. 4. Monitor white blood cell count. Plan on antibiotic treatment for 10 days from today if the new blood cultures remain negative. ID transmission tester MD available on weekend if needed.
--- NOTE | 2018-05-02 12:32 | P.PNONC ---
Subjective Interval history: Complaint of pain. There is a delay in his morphine. Discussed the infectious disease plan. He remains afebrile despite stopping cefepime and vancomycin. Objective Vital Signs/Intake & Output: Vital Signs 05/01/18 16:00 05/01/18 17:35 05/01/18 20:00 Temperature 98.9 F 98 F Pulse Rate 108 H 102 H 114 H Respiratory Rate 17 20 18 Blood Pressure 129/80 135/82 Pulse Oximetry 96 95 05/01/18 22:14 05/02/18 00:00 05/02/18 04:00 Temperature 99.3 F 98.9 F Pulse Rate 105 H 96 H Respiratory Rate 15 18 18 Blood Pressure 139/83 144/81 H Pulse Oximetry 95 95 05/02/18 06:33 05/02/18 08:00 05/02/18 08:31 Temperature 98.9 F Pulse Rate 104 H 109 H 105 H Respiratory Rate 16 20 Blood Pressure 140/63 Pulse Oximetry 94 L 94 L 05/02/18 09:33 05/02/18 09:34 05/02/18 12:11 Temperature 99.6 F Pulse Rate 110 H 97 H Respiratory Rate 18 20 Blood Pressure 133/76 Pulse Oximetry 98 94 L Intake & Output 05/01/18 05/02/18 05/02/18 18:59 06:59 18:59 Intake Total 4000 / 4000 290 / 290 Output Total 1550 / 1550 1900 / 1900 Balance 2450 / 2450 -1610 / -1610 Weight 91 kg Intake: IV 3280 / 3280 50 / 50 LR 1000 mL Inj 1,000 ML @ 100 2900 / 2900 mls/hr IV.CONT .Q10H SUZAN Rx#: [id number] Maxipime Inj 2,000 MG In NS Inj 100 / 100 100 ML @ 200 mls/hr IV.SIG Q8H SUZAN Rx#:[id number] Glycophos Inj 30 MMOL In NS Inj 280 / 280 250 ML @ 42 mls/hr IV.SIG UNSCH PRN Rx#:[id number] Ancef 2 GM Premix Inj 2 gm In 50 / 50 50 ml @ 100 mls/hr IV.SIG Q8H SUZAN Rx#:[id number] Oral 240 / 240 Tube Feeding 720 / 720 Output: Urine 1550 / 1550 1900 / 1900 Other: Date of Last Bowel Movement 04/30/18 04/30/18 04/30/18 Result Diagrams: 05/02/18 04:00 05/02/18 04:00 Laboratory Results: Laboratory Results - last 24 hr 05/01/18 05/01/18 05/02/18 13:21 17:16 00:13 WBC RBC Hgb Hct MCV MCH MCHC RDW Plt Count MPV Prelim Diff (Auto) Neut % (Auto) Lymph % (Auto) [place] % (Auto) Eos % (Auto) Baso % (Auto) Neut # (Auto) Lymph # (Auto) [place] # (Auto) Eos # (Auto) Baso # (Auto) WBC Differential Seg Neuts % (Manual) Band Neuts % (Manual) Lymphocytes % (Manual) Monocytes % (Manual) Metamyelocytes % (Man) Abs Neuts (Manual) Nucleated RBCs/100 WBC Differential Comment Toxic Granulation Toxic Vacuolation Dohle Bodies Platelet Estimate Platelet Morphology Ovalocytes Sodium Potassium Chloride Carbon Dioxide Anion Gap BUN Creatinine Estimated GFR POC Glucose 101 105 97 Random Glucose Calcium Phosphorus Magnesium Total Bilirubin AST ALT Alkaline Phosphatase Total Protein Albumin Blood Type MTS Gel Crossmatch 05/02/18 05/02/18 05/02/18 04:00 04:00 10:43 WBC 1.5 L RBC 2.86 L Hgb 7.6 L Hct 22.3 L MCV 77.8 L MCH 26.5 L MCHC 34.0 RDW 17.1 Plt Count 15 L* MPV 11.2 H Prelim Diff (Auto) Slide review pending Neut % (Auto) 81.5 H Lymph % (Auto) 5.1 L [place] % (Auto) 13.1 H Eos % (Auto) 0.1 Baso % (Auto) 0.2 Neut # (Auto) 1.2 L Lymph # (Auto) 0.1 L [place] # (Auto) 0.2 Eos # (Auto) 0.0 Baso # (Auto) 0.0 WBC Differential Manual diff final Seg Neuts % (Manual) 57 Band Neuts % (Manual) 27 H Lymphocytes % (Manual) 7 L Monocytes % (Manual) 7 Metamyelocytes % (Man) 2 H Abs Neuts (Manual) 1.3 L Nucleated RBCs/100 WBC 2 H Differential Comment . Toxic Granulation 3+ H Toxic Vacuolation Present H Dohle Bodies Present H Platelet Estimate Rare L Platelet Morphology Normal Ovalocytes 1+ H Sodium 139 Potassium 3.3 L Chloride 101 Carbon Dioxide 31.6 Anion Gap 6 BUN 5 L Creatinine 0.51 L Estimated GFR Greater than 89 POC Glucose Random Glucose 92 Calcium 8.2 L Phosphorus 3.4 D Magnesium 1.7 Total Bilirubin 0.8 AST 19 ALT 28 Alkaline Phosphatase 110 Total Protein 5.7 L Albumin 1.7 L Blood Type A Positive MTS Gel Crossmatch See Detail Culture Results: Microbiology 04/28/18 23:30 Aerobic Blood Culture - Final Blood - Peripheral Staphylococcus aureus Anaerobic Blood Culture - Final Staphylococcus aureus 04/28/18 23:45 Aerobic Blood Culture - Final Blood - Peripheral Staphylococcus aureus Anaerobic Blood Culture - Final Staphylococcus aureus 04/29/18 07:50 Gram Stain - Final Sputum - Expectorated Sputum Sputum Culture - Final Heavy growth normal respiratory edgard 04/29/18 09:50 Streptococcus pneumoniae Antigen (M - Final Urine - Clean Catch Urine Presumptive negative for streptococcus pneumoniae antigen, suggesting no current or recent infection. Infection due to Streptococcus pneumoniae cannot be ruled out since the antigen present in the sample may be below the detection limit of the test. 04/29/18 09:50 Legionella Antigen - Final Urine - Clean Catch Urine Presumptive negative for Legionella pneumophila serogroup 1 antigen in urine, suggesting no recent or recurrent infection. Infection due to Legionella cannot be ruled out since other serogroups and species may cause disease, antigen may not be present in urine in early infection, and the level of antigen present in the urine may be below the detection limit of the test. 04/29/18 08:20 Influenza Types A,B Antigen - Final Nasal Wash Negative for FLU A and B antigen Infection due to influenza A or B cannot be ruled out since the antigen present in the sample may be below the detection limit of the test. Medications: Active Medications Generic Name Dose Route Start Last Admin Trade Name Freq PRN Reason Stop Dose Admin Acetaminophen 650 mg 04/29/18 01:51 05/02/18 00:22 Tylenol PO 650 mg Q6H PRN Administration TEMPERATURE > 101 F Albuterol 1 ampul 04/29/18 04:00 05/02/18 09:33 Duoneb Neb (Suzan) NEB 1 ampul Q6HR NEB SUZAN Administration Albuterol 1 ampul 04/29/18 01:51 05/02/18 06:30 Duoneb Neb (Prn) NEB 1 ampul Q2HR NEB PRN Administration WHEEZING Chlorhexidine Gluconate 3 pack 04/29/18 04:00 05/02/18 04:04 Chlorhexidine 2% Cloth TOPICAL 05/04/18 03:59 3 pack DAILY@0400 SUZAN Administration Filgrastim 480 mcg 04/29/18 14:00 05/01/18 13:23 Neupogen Inj SQ 480 mcg DAILY@1400 SUZAN Administration Lactated Ringer's 1,000 mls @ 100 mls/hr 04/29/18 02:00 05/01/18 20:07 Lr 1000 Ml Inj IV.CONT 100 mls/hr .Q10H SUZAN Administration Cefazolin Sodium/Dextrose 2 gm in 50 mls @ 100 mls/hr 05/01/18 15:00 06:16 Ancef 2 Gm Premix Inj IV.SIG 100 mls/hr Q8H SUZAN Administration Lactulose 30 ml 04/29/18 09:00 05/02/18 09:14 Lactulose Liq PO Not Given BID SUZAN Morphine Sulfate 8 mg 05/01/18 13:00 05/02/18 12:16 Morphine Inj IV.PUSH 05/04/18 12:59 8 mg Q4H SUZAN Administration Multi-Ingredient Mouthwash/Gargle 5 ml 04/29/18 21:00 05/02/18 12:15 Magic Mouthwash Adult Liq SWISH-SWAL 5 ml QID SUZAN Administration Oxycodone HCl 5 mg 04/29/18 01:51 05/01/18 10:46 Roxicodone PO 5 mg Q4H PRN Administration Pain 1-5 Pantoprazole Sodium 40 mg 04/29/18 02:00 05/02/18 02:31 Protonix Inj IV.PUSH 40 mg Q24H SUZAN Administration Polyethylene Glycol 17 gm 04/29/18 09:00 05/02/18 09:15 Miralax PO Not Given BID SUZAN Senna/Docusate Sodium 1 tab 04/29/18 09:00 05/02/18 08:53 Naa-Colace PO 1 tab BID SUZAN Administration Sodium Chloride 2 ml 04/29/18 01:51 05/02/18 12:17 Ns Flush IV.FLUSH 2 ml UNSCH PRN Administration FLUSH AFTER USING IV ACCESS Sodium Chloride 2 spray 05/01/18 10:02 05/01/18 21:52 Alfalfa Nasal Wayne EACH NARE 2 spray Q4H PRN Administration NASAL CONGESTION Objective Remarks: GENERAL: Anxious appearing, well-developed patient. SKIN: Warm and dry. HEAD: Normocephalic. EYES: No scleral icterus. No injection or drainage. NECK: Supple, trachea midline. No JVD or lymphadenopathy. LYMPHATIC: No adenopathy. CARDIOVASCULAR: Regular rate and rhythm without murmurs. RESPIRATORY: Coarse breath sounds on right. No accessory muscle use. GASTROINTESTINAL: Abdomen soft, non-tender, nondistended. EXTREMITIES: No cyanosis, or edema. MUSCULOSKELETAL: Adequate muscle tone. NEUROLOGICAL: No obvious focal deficit. Awake, alert, and oriented x3. Assessment/Plan - Plan Mr. Turner is a 43-year-old man with second recurrent aggressive T-cell lymphoblastic lymphoma. He is status post cycle 1 of ICE salvage chemotherapy at the same time as a right VATS thoracotomy for his recurrent pleural effusion. He has pancytopenia from his recent chemotherapy. He is admitted with fever, sepsis and pancytopenia. 1.Pancytopenia. G-CSF continue. Her sense of recovery with WBC increasing. 2.Gram-positive cocci bacteremia. Sensitivities are back. Antibiotic per infectious disease. We hope to be able to preserve his line. Blood cultures have been drawn on 05/02/18. Right pleural effusion with Pleurx catheter draining minimal. Interpreted as a response to chemotherapy. Continue to monitor. 3.Pericardial effusion. Echo shows no Hickman nod. 4.Epistaxis resolved. Alfalfa Wayne at bedside. Try Afrin for nosebleeds. 5.Thrombocytopenia platelet count of 15,000. No acute bleeding. 6.Anemia hemoglobin less than 8.0. Transfuse 1 unit of packed red cells. 7.Upper extremity DVT/SVC syndrome. Anticoagulant therapy and hold in light of thrombocytopenia and some minor bleeding. 8. Chronic pain and respiratory distress. Continue morphine. Anticipate conversion to oral medication when discharged home. Patient has prescription at home. 9. Advance diet. DC fingerstick. Patient is not a diabetic and no longer is on steroids.
--- NOTE | 2018-05-02 16:04 | P.PNIM ---
Subjective Interval history: Follow for MSSA bacteremia, pneumonia Not short of breath, no cough, no fever. Had epistaxis which resolved. No chest pain. Physical Exam Vital signs: Last Vital Signs Temp 99.6 F 05/02/18 15:05 Pulse 101 H 05/02/18 15:05 Resp 20 05/02/18 15:05 BP 133/72 05/02/18 15:05 Pulse Ox 94 L 05/02/18 15:05 Intake & Output 04/30/18 05/01/18 05/02/18 05/03/18 06:59 06:59 06:59 06:59 Intake Total 8453 / 8453 6845 / 6845 5340 / 5340 Output Total 2775 / 2775 3950 / 3950 3450 / 3450 Balance 5678 / 5678 2895 / 2895 1890 / 1890 Weight 86.5 kg 93 kg 91 kg Narrative: GENERAL: Not in distress. CHEST: Clear breath sounds bilaterally, decreased breath sounds in the right. No wheezing. CARDIOVASCULAR: Regular rate and rhythm, no murmurs. ABDOMEN: Soft, nontender, nondistended. No guarding. MUSCULOSKELETAL: Pulses 2+. No peripheral edema. NEUROLOGICAL: Alert awake and oriented, no focal deficits. Results Labs CBC & Chem 7: 05/02/18 04:00 05/02/18 04:00 Labs: Microbiology 04/28/18 23:30 Blood - Peripheral Aerobic Blood Culture - Final Staphylococcus aureus 04/28/18 23:30 Blood - Peripheral Anaerobic Blood Culture - Final Staphylococcus aureus 04/28/18 23:45 Blood - Peripheral Aerobic Blood Culture - Final Staphylococcus aureus 04/28/18 23:45 Blood - Peripheral Anaerobic Blood Culture - Final Staphylococcus aureus Assessment and Plan Plan 43yM with history of non-Hodgkin's lymphoma now with neutropenic severe sepsis. suspect pulmonary source given cough and SOB. Severe sepsis secondary to Staphylococcus aureus bacteremia and healthcare associated pneumonia/Neutropenic in the background of neutropenia-antibiotics per infectious disease, stop cefepime and vancomycin, blood culture grew MSSA, cefazolin started. Monitor WBC. Repeat blood culture to monitor clearance. Plan antibiotic treatment for 10 days if new blood culture remains negative. Pancytopenia-Neupogen per oncology, supportive transfusion. Maintain hemoglobin greater than 7.4 and platelets greater than 15,000. T-cell lymphoblastic lymphoma, right pleural effusion, [id number] be secondary to response to chemotherapy patient has Pleurx catheter on right side. Output about 50 cc. Status post chemotherapy and right VATS thoracotomy , might not need any thoracentesis. Hypotension secondary to intravascular volume depletion- now has resolved. pericardial effusion- echo with mild to moderate pericardial effusion without tamponade. history of DVT/SVC syndrome- hold Xarelto for now due to thrombocytopenia. Hypokalemia-replace, check tomorrow. Protonix for GI ppx. SCDs, pharmacological prophylaxis contraindicated.
[2018-05-03] MEDS: Morphine Inj 4 MG/ML Vial IV.PUSH SCH ×5 (04:02→20:00)
[2018-05-03] MEDS: Pantoprazole Inj 40 MG Vial IV.PUSH SCH (04:02)
[2018-05-03] MEDS: Chlorhexidine Gluconate 2% 1 Pack (2 Cloths) TOPICAL SCH (05:21)
[2018-05-03 05:26] LABS: Baso % (Auto) 0.3 % (0.0-2.0); Eos % (Auto) 0.1 % (0.0-4.0); Hematocrit 23.5 % (39.0-51.0); Hemoglobin 8.3 gm/dL (13.0-17.0); Lymph # (Auto) 0.1 th/mm3 (1.0-4.8); Lymph % (Auto) 3.2 % (9.0-44.0); Mean Corpuscular HGB Conc 35.2 % (32.0-36.0); Mean Corpuscular Hemoglobin 25.9 pg (27.0-34.0); Mean Corpuscular Volume 73.7 fL (80.0-100.0); Mean Platelet Volume 11.3 fL (7.0-11.0); Mono # (Auto) 0.5 th/mm3 (0.0-0.9); Mono % (Auto) 11.6 % (0.0-8.0); Neut # (Auto) 3.7 th/mm3 (1.8-7.7); Neut % (Auto) 84.8 % (16.0-70.0); Platelet Count 20 th/mm3 (150-450); Red Cell Distribution Width 19.9 % (11.6-17.2); White Blood Count 4.3 th/mm3 (4.0-11.0)
[2018-05-03 05:57] LABS: Anion Gap 7 meq/L (5-15); Aspartate Aminotransferase 21 U/L (15-37); Blood Urea Nitrogen 5 mg/dL (7-18); Calcium 8.4 mg/dL (8.5-10.1); Carbon Dioxide 30.8 meq/L (21.0-32.0); Chloride 100 meq/L (98-107); Glomerular Filtration Rate Greater Than 89 mL/min (>89); Glucose,Random 101 mg/dL (74-106); Magnesium 1.7 mg/dL (1.5-2.5); Potassium 3.5 meq/L (3.5-5.1); Sodium 138 meq/L (136-145)
[2018-05-03 05:58] LABS: Alanine Aminotransferase 27 U/L (12-78); Phosphorus 2.4 mg/dL (2.5-4.9)
[2018-05-03 06:00] LABS: Alkaline Phosphatase 117 U/L (45-117)
[2018-05-03] MEDS: ceFAZolin 2 GM Premix Inj 2 GM/50 ML PIGGYBACK IV.SIG SCH ×2 (06:03→13:59)
[2018-05-03 07:15] LABS: Lymphocytes 3 % (9-44); Metamyelocytes 2 % (0-1); Monocytes 12 % (0-8)
[2018-05-03 07:16] LABS: Dohle Bodies Present; Toxic Granulation 2+
[2018-05-03 07:17] LABS: Platelet Estimate Rare (Normal); Platelet Morphology Normal (Normal)
--- NOTE | 2018-05-03 09:38 | P.PNONC ---
Subjective Interval history: Had some low-grade fevers overnight Desperately wants to go home Coughed up a big amount of phlegm this morning and now reports he is breathing much better No other acute complaints Objective Vital Signs/Intake & Output: Vital Signs 05/02/18 09:33 05/02/18 09:34 05/02/18 12:00 Temperature Pulse Rate 110 H 115 H Respiratory Rate 18 Blood Pressure Pulse Oximetry 98 05/02/18 12:11 05/02/18 15:05 05/02/18 16:00 Temperature 99.6 F 99.6 F Pulse Rate 97 H 101 H 109 H Respiratory Rate 20 20 Blood Pressure 133/76 133/72 Pulse Oximetry 94 L 94 L 05/02/18 16:16 05/02/18 16:44 05/02/18 17:29 Temperature 99.5 F 99.0 F Pulse Rate 101 H 107 H 106 H Respiratory Rate 18 18 18 Blood Pressure 130/87 128/81 Pulse Oximetry 97 94 L 05/02/18 20:00 05/02/18 20:56 05/02/18 23:52 Temperature 100.4 F H 100.0 F H Pulse Rate 107 H 120 H Respiratory Rate 18 18 Blood Pressure 137/92 H 142/87 H Pulse Oximetry 94 L 98 95 05/03/18 00:00 05/03/18 02:26 05/03/18 04:00 Temperature 99.8 F H Pulse Rate 110 H 107 H 105 H Respiratory Rate 42 H 18 Blood Pressure 136/85 Pulse Oximetry 97 94 L 05/03/18 08:00 05/03/18 08:39 Temperature Pulse Rate 111 H 112 H Respiratory Rate 22 16 Blood Pressure 134/92 H Pulse Oximetry 97 Intake & Output 05/02/18 05/03/18 05/03/18 18:59 06:59 18:59 Intake Total 2300 / 2300 530 / 530 1000 / 1000 Output Total 1750 / 1750 1200 / 1200 Balance 550 / 550 -670 / -670 1000 / 1000 Weight 202 lb 13.204 oz Intake: IV 1050 / 1050 50 / 50 1000 / 1000 LR 1000 mL Inj 1,000 ML @ 100 1000 / 1000 1000 / 1000 mls/hr IV.CONT .Q10H [facility] Rx#: [id number] Ancef 2 GM Premix Inj 2 gm In 50 / 50 50 / 50 50 ml @ 100 mls/hr IV.SIG Q8H [facility] Rx#:[id number] Oral 850 / 850 480 / 480 Intake (Blood Product) Amt 400 / 400 Rbc As-3 Leukoreduced Irrad 400 / 400 Unit [id number] Output: Urine 1750 / 1750 1200 / 1200 Other: Date of Last Bowel Movement 04/30/18 04/30/18 # Bowel Movements 0 Result Diagrams: 05/03/18 04:25 05/03/18 04:25 Laboratory Results: Laboratory Results - last 24 hr 04/30/18 05/02/18 05/03/18 00:15 10:43 04:25 WBC 4.3 RBC 3.20 L Hgb 8.3 L Hct 23.5 L MCV 73.7 L D MCH 25.9 L MCHC 35.2 RDW 19.9 H D Plt Count 20 L D MPV 11.3 H Prelim Diff (Auto) Slide review pending Neut % (Auto) 84.8 H Lymph % (Auto) 3.2 L [place] % (Auto) 11.6 H Eos % (Auto) 0.1 Baso % (Auto) 0.3 Neut # (Auto) 3.7 Lymph # (Auto) 0.1 L [place] # (Auto) 0.5 Eos # (Auto) 0.0 Baso # (Auto) 0.0 WBC Differential Manual diff final Seg Neuts % (Manual) 55 Band Neuts % (Manual) 28 H Lymphocytes % (Manual) 3 L Monocytes % (Manual) 12 H Metamyelocytes % (Man) 2 H Abs Neuts (Manual) 3.7 Differential Comment . Toxic Granulation 2+ H Dohle Bodies Present H Platelet Estimate Rare L Platelet Morphology Normal Sodium Potassium Chloride Carbon Dioxide Anion Gap BUN Creatinine Estimated GFR Random Glucose Calcium Phosphorus Magnesium Total Bilirubin AST ALT Alkaline Phosphatase Total Protein Albumin Blood Type A Positive Antibody Screen Negative MTS Gel Crossmatch See Detail See Detail 05/03/18 04:25 WBC RBC Hgb Hct MCV MCH MCHC RDW Plt Count MPV Prelim Diff (Auto) Neut % (Auto) Lymph % (Auto) [place] % (Auto) Eos % (Auto) Baso % (Auto) Neut # (Auto) Lymph # (Auto) [place] # (Auto) Eos # (Auto) Baso # (Auto) WBC Differential Seg Neuts % (Manual) Band Neuts % (Manual) Lymphocytes % (Manual) Monocytes % (Manual) Metamyelocytes % (Man) Abs Neuts (Manual) Differential Comment Toxic Granulation Dohle Bodies Platelet Estimate Platelet Morphology Sodium 138 Potassium 3.5 Chloride 100 Carbon Dioxide 30.8 Anion Gap 7 BUN 5 L Creatinine 0.54 L Estimated GFR Greater than 89 Random Glucose 101 Calcium 8.4 L Phosphorus 2.4 L D Magnesium 1.7 Total Bilirubin 0.8 AST 21 ALT 27 Alkaline Phosphatase 117 Total Protein 6.0 L Albumin 2.0 L Blood Type Antibody Screen MTS Gel Crossmatch Culture Results: Microbiology 04/28/18 23:30 Aerobic Blood Culture - Final Blood - Peripheral Staphylococcus aureus Anaerobic Blood Culture - Final Staphylococcus aureus 04/28/18 23:45 Aerobic Blood Culture - Final Blood - Peripheral Staphylococcus aureus Anaerobic Blood Culture - Final Staphylococcus aureus 04/29/18 07:50 Gram Stain - Final Sputum - Expectorated Sputum Sputum Culture - Final Heavy growth normal respiratory edgard Medications: Active Medications Generic Name Dose Route Start Last Admin Trade Name Freq PRN Reason Stop Dose Admin Acetaminophen 650 mg 04/29/18 01:51 05/02/18 15:12 Tylenol PO 650 mg Q6H PRN Administration TEMPERATURE > 101 F Albuterol 1 ampul 04/29/18 01:51 05/03/18 08:39 Duoneb Neb (Prn) NEB 1 ampul Q2HR NEB PRN Administration WHEEZING Chlorhexidine Gluconate 3 pack 04/29/18 04:00 05/03/18 05:21 Chlorhexidine 2% Cloth TOPICAL 05/04/18 03:59 3 pack DAILY@0400 [facility] Administration Filgrastim 480 mcg 04/29/18 14:00 05/02/18 15:11 Neupogen Inj SQ 480 mcg DAILY@1400 BANDAR Administration Lactated Ringer's 1,000 mls @ 100 mls/hr 04/29/18 02:00 05/03/18 07:28 Lr 1000 Ml Inj IV.CONT Infused .Q10H [facility] Infusion Cefazolin Sodium/Dextrose 2 gm in 50 mls @ 100 mls/hr 05/01/18 15:00 06:03 Ancef 2 Gm Premix Inj IV.SIG 100 mls/hr Q8H [facility] Administration Lactulose 30 ml 04/29/18 09:00 05/02/18 20:22 Lactulose Liq PO Not Given BID [facility] Morphine Sulfate 8 mg 05/01/18 13:00 05/03/18 08:06 Morphine Inj IV.PUSH 05/04/18 12:59 8 mg Q4H [facility] Administration Multi-Ingredient Mouthwash/Gargle 5 ml 04/29/18 21:00 05/02/18 20:23 Magic Mouthwash Adult Liq SWISH-SWAL 5 ml QID [facility] Administration Oxycodone HCl 5 mg 04/29/18 01:51 05/01/18 10:46 Roxicodone PO 5 mg Q4H PRN Administration Pain 1-5 Pantoprazole Sodium 40 mg 04/29/18 02:00 05/03/18 04:02 Protonix Inj IV.PUSH 40 mg Q24H [facility] Administration Polyethylene Glycol 17 gm 04/29/18 09:00 05/02/18 20:23 Miralax PO Not Given BID BANDAR Senna/Docusate Sodium 1 tab 04/29/18 09:00 05/02/18 20:23 Naa-Colace PO Not Given BID B[facility]AR Sodium Chloride 2 ml 04/29/18 01:51 05/02/18 15:12 Ns Flush IV.FLUSH 2 ml UNSCH PRN Administration FLUSH AFTER USING IV ACCESS Sodium Chloride 2 spray 05/01/18 10:02 05/01/18 21:52 [place] Nasal [place] EACH NARE 2 spray Q4H PRN Administration NASAL CONGESTION Objective Remarks: GENERAL: Smiling, in a joyful mood this morning. SKIN: Warm and dry. HEAD: Normocephalic. EYES: No scleral icterus. No injection or drainage. NECK: Supple, trachea midline. No JVD or lymphadenopathy. CARDIOVASCULAR: Regular rate and rhythm without murmurs. RESPIRATORY: Bilateral breath sounds. Mildly coarse on the right. GASTROINTESTINAL: Abdomen soft, non-tender, nondistended. EXTREMITIES: No cyanosis, or edema. MUSCULOSKELETAL: Adequate muscle tone. NEUROLOGICAL: No obvious focal deficit. Awake, alert, and oriented x3. Assessment/Plan - Plan Mr. Turner is a 43-year-old man with second recurrent aggressive T-cell lymphoblastic lymphoma. He is status post cycle 1 of ICE salvage chemotherapy at the same time as a right VATS thoracotomy for his recurrent pleural effusion. He has pancytopenia from his recent chemotherapy. He is admitted with fever, sepsis and pancytopenia. 1. Counts appear to be recovering. He did have 1 unit packed red blood cells yesterday. His neutrophil count today is 3700. Growth factor support will be given today. I anticipate today will be the last day he will need this as per the trend ANC will likely be greater than 5000 tomorrow. 2. Gram-positive cocci bacteremia. Sensitivities are back. Antibiotic per infectious disease. We hope to be able to preserve his line. Repeat blood cultures on 05/02 pending. 3. Patient with recurrent pleural effusion. Pleurx catheter in place with minimal output. 4. Continue to monitor CBC. Monitor for bleeding. 5. Supportive care - Attending Statement The exam, history, and the medical decision-making described in the above note were completed with the assistance of the mid-level provider. I reviewed and agree with the findings presented. I attest that I had a [id number] encounter with the patient on the same day, and personally performed and documented my assessment and findings in the medical record. Patient is very frustrated that he still in the hospital. He missed his daughter ninth birthday which they were going to celebrate in [place] Patient is still has low-grade fever He is on the antibiotics He has methicillin sensitive staph aureus bacteremia. He is on cefazolin According to the patient ID have cleared him to have IV antibiotic at home through home health I advised the patient to check with health care consultant in the morning to know the status of outpatient antibiotic Neutropenia has resolved Still having pain in the left side and been getting narcotic [id number]. He get upset when his pain medication is delayed Admitting service will make arrangement for outpatient antibiotic
[2018-05-03] MEDS: Nystatin/Diphenhydramine/Lidocaine Mouthwash (Adult) 120 ML Botttle SWISH-SWAL SCH ×4 (10:52→20:00)
[2018-05-03] MEDS: Polyethylene Glycol 3350 17 GM Packet PO SCH ×2 (10:52→20:00)
[2018-05-03] MEDS: Senna/Docusate Sodium 8.6/50 MG Tablet PO SCH ×2 (10:52→20:00)
--- NOTE | 2018-05-03 14:22 | P.PNIM ---
Subjective Interval history: Low-grade fever overnight, coughing up phlegm, not short of breath. Anxious, crying, wants to go home. Physical Exam Vital signs: Last Vital Signs Temp 99.2 F 05/03/18 12:00 Pulse 100 H 05/03/18 12:00 Resp 20 05/03/18 12:00 BP 126/82 05/03/18 12:00 Pulse Ox 100 05/03/18 12:00 Intake & Output 05/01/18 05/02/18 05/03/18 05/04/18 06:59 06:59 06:59 06:59 Intake Total 6845 / 6845 5340 / 5340 2880 / 2880 1000 / 1000 Output Total 3950 / 3950 3450 / 3450 2950 / 2950 50 / 50 Balance 2895 / 2895 1890 / 1890 -70 / -70 950 / 950 Weight 93 kg 91 kg 92 kg Narrative: GENERAL: Not in distress. CHEST: Clear breath sounds bilaterally, decreased breath sounds in the right. No wheezing. CARDIOVASCULAR: Regular rate and rhythm, no murmurs. ABDOMEN: Soft, nontender, nondistended. No guarding. MUSCULOSKELETAL: Pulses 1+. No peripheral edema. NEUROLOGICAL: Alert awake and oriented, no focal deficits. Results Labs CBC & Chem 7: 05/03/18 04:25 05/03/18 04:25 Labs: Microbiology 05/02/18 10:43 Blood - Peripheral Aerobic Blood Culture - Preliminary No growth in 1 day 05/02/18 10:43 Blood - Peripheral Anaerobic Blood Culture - Preliminary No growth in 1 day 05/02/18 10:35 Blood - Peripheral Aerobic Blood Culture - Preliminary No growth in 1 day 05/02/18 10:35 Blood - Peripheral Anaerobic Blood Culture - Preliminary No growth in 1 day Assessment and Plan Plan 43yM with history of non-Hodgkin's lymphoma now with neutropenic severe sepsis. suspect pulmonary source given cough and SOB. Severe sepsis secondary to Staphylococcus aureus bacteremia and healthcare associated pneumonia/Neutropenic in the background of neutropenia-antibiotics per infectious disease, stop cefepime and vancomycin, blood culture grew MSSA, cefazolin started. Monitor WBC. Repeat blood culture to monitor clearance, negative to date. Plan antibiotic treatment for 10 days if new blood culture remains negative. Pancytopenia-Neupogen per oncology, supportive transfusion. Maintain hemoglobin greater than 7.4 and platelets greater than 15,000. Check CBC tomorrow. T-cell lymphoblastic lymphoma, right pleural effusion, [id number] be secondary to response to chemotherapy patient has Pleurx catheter on right side. Output about 50 cc. Status post chemotherapy and right VATS thoracotomy , might not need any thoracentesis. Hypotension secondary to intravascular volume depletion- now has resolved. pericardial effusion- echo with mild to moderate pericardial effusion without tamponade. history of DVT/SVC syndrome- hold Xarelto for now due to thrombocytopenia. Hypokalemia-replaced, resolved. Protonix for GI ppx. SCDs, pharmacological prophylaxis contraindicated.
[2018-05-04] MEDS: Morphine Inj 4 MG/ML Vial IV.PUSH SCH ×6 (00:01→20:01)
[2018-05-04] MEDS: ceFAZolin 2 GM Premix Inj 2 GM/50 ML PIGGYBACK IV.SIG SCH ×4 (00:03→23:00)
[2018-05-04] MEDS: Pantoprazole Inj 40 MG Vial IV.PUSH SCH (01:09)
[2018-05-04 06:23] LABS: Baso % (Auto) 0.3 % (0.0-2.0); Hematocrit 25.1 % (39.0-51.0); Hemoglobin 8.6 gm/dL (13.0-17.0); Lymph # (Auto) 0.2 th/mm3 (1.0-4.8); Lymph % (Auto) 3.2 % (9.0-44.0); Mean Corpuscular HGB Conc 34.4 % (32.0-36.0); Mean Corpuscular Hemoglobin 26.2 pg (27.0-34.0); Mean Corpuscular Volume 76.2 fL (80.0-100.0); Mean Platelet Volume 10.7 fL (7.0-11.0); Mono # (Auto) 0.7 th/mm3 (0.0-0.9); Mono % (Auto) 12.3 % (0.0-8.0); Neut % (Auto) 84.2 % (16.0-70.0); Red Blood Count 3.29 mil/mm3 (4.50-5.90); Red Cell Distribution Width 19.9 % (11.6-17.2)
[2018-05-04 06:31] LABS: Alanine Aminotransferase 23 U/L (12-78); Anion Gap 6 meq/L (5-15); Aspartate Aminotransferase 20 U/L (15-37); Blood Urea Nitrogen 5 mg/dL (7-18); Calcium 8.4 mg/dL (8.5-10.1); Carbon Dioxide 30.1 meq/L (21.0-32.0); Chloride 100 meq/L (98-107); Glomerular Filtration Rate Greater Than 89 mL/min (>89); Glucose,Random 87 mg/dL (74-106); Magnesium 1.9 mg/dL (1.5-2.5); Phosphorus 2.9 mg/dL (2.5-4.9); Potassium 3.6 meq/L (3.5-5.1); Sodium 136 meq/L (136-145)
[2018-05-04 06:33] LABS: Alkaline Phosphatase 119 U/L (45-117); Total Protein 6.2 g/dL (6.4-8.2)
[2018-05-04 06:58] LABS: Platelet Count 10 th/mm3 (150-450)
[2018-05-04 08:01] LABS: Dohle Bodies Present; Metamyelocytes 1 % (0-1); Monocytes 1 % (0-8); Platelet Estimate Rare (Normal); Platelet Morphology Normal (Normal)
[2018-05-04 08:03] LABS: Toxic Granulation 2+
[2018-05-04] MEDS: Senna/Docusate Sodium 8.6/50 MG Tablet PO SCH ×2 (08:24→20:05)
[2018-05-04] MEDS: Nystatin/Diphenhydramine/Lidocaine Mouthwash (Adult) 120 ML Botttle SWISH-SWAL SCH ×4 (08:38→20:05)
[2018-05-04] MEDS: Polyethylene Glycol 3350 17 GM Packet PO SCH ×2 (08:39→20:04)
--- NOTE | 2018-05-04 09:12 | P.PNONC ---
Subjective Interval history: Afebrile Patient states he needs a breathing treatment Disappointed he could go home yesterday but understands No bleeding No other acute complaints Objective Vital Signs/Intake & Output: Vital Signs 05/03/18 12:00 05/03/18 15:40 05/03/18 16:00 Temperature 99.2 F 99.7 F H Pulse Rate 100 H 119 H 108 H Respiratory Rate 20 20 Blood Pressure 126/82 141/86 H Pulse Oximetry 100 95 05/03/18 17:44 05/03/18 20:00 05/03/18 21:09 Temperature 99.7 F H Pulse Rate 117 H 119 H Respiratory Rate 16 18 Blood Pressure 124/74 Pulse Oximetry 96 95 05/04/18 00:00 05/04/18 04:00 05/04/18 08:00 Temperature 99.6 F 99.4 F 98.3 F Pulse Rate 105 H 96 H 102 H Respiratory Rate 18 16 20 Blood Pressure 121/81 117/69 119/79 Pulse Oximetry 92 L 96 94 L Intake & Output 05/03/18 05/04/18 05/04/18 18:59 06:59 18:59 Intake Total 2850 / 2850 1010 / 1010 Output Total 2050 / 2050 2800 / 2800 Balance 800 / 800 -1790 / -1790 Weight 189 lb 9.561 oz Intake: IV 1050 / 1050 50 / 50 LR 1000 mL Inj 1,000 ML @ 100 1000 / 1000 mls/hr IV.CONT .Q10H [facility] Rx#: [id number] NS Inj 250 ML @ 15 mls/hr IV. 0 / 0 SIG ONCE [facility] Rx#:[id number] Ancef 2 GM Premix Inj 2 gm In 50 / 50 50 / 50 50 ml @ 100 mls/hr IV.SIG Q8H [facility] Rx#:[id number] Oral 1800 / 1800 960 / 960 Output: Urine 2000 / 1999 2800 / 2800 Wound Drainage 50 / 50 Right Anterior Abdomen 50 / 50 Other: Date of Last Bowel Movement 05/03/18 05/03/18 05/03/18 # Bowel Movements 1 Result Diagrams: 05/04/18 04:00 05/04/18 04:00 Laboratory Results: Laboratory Results - last 24 hr 05/04/18 05/04/18 04:00 04:00 WBC 6.0 RBC 3.29 L Hgb 8.6 L Hct 25.1 L MCV 76.2 L MCH 26.2 L MCHC 34.4 RDW 19.9 H Plt Count 10 L* D MPV 10.7 Prelim Diff (Auto) Slide review pending Neut % (Auto) 84.2 H Lymph % (Auto) 3.2 L [place] % (Auto) 12.3 H Eos % (Auto) 0.0 Baso % (Auto) 0.3 Neut # (Auto) 5.0 Lymph # (Auto) 0.2 L [place] # (Auto) 0.7 Eos # (Auto) 0.0 Baso # (Auto) 0.0 WBC Differential Manual diff final Seg Neuts % (Manual) 80 H Band Neuts % (Manual) 18 H Monocytes % (Manual) 1 Metamyelocytes % (Man) 1 Abs Neuts (Manual) 5.9 Differential Comment . Toxic Granulation 2+ H Dohle Bodies Present H Platelet Estimate Rare L Platelet Morphology Normal Sodium 136 Potassium 3.6 Chloride 100 Carbon Dioxide 30.1 Anion Gap 6 BUN 5 L Creatinine 0.56 L Estimated GFR Greater than 89 Random Glucose 87 Calcium 8.4 L Phosphorus 2.9 Magnesium 1.9 Total Bilirubin 0.7 AST 20 ALT 23 Alkaline Phosphatase 119 H Total Protein 6.2 L Albumin 2.0 L Culture Results: Microbiology 05/02/18 10:43 Aerobic Blood Culture - Preliminary Blood - Peripheral No growth in 1 day Anaerobic Blood Culture - Preliminary No growth in 1 day 05/02/18 10:35 Aerobic Blood Culture - Preliminary Blood - Peripheral No growth in 1 day Anaerobic Blood Culture - Preliminary No growth in 1 day 04/28/18 23:30 Aerobic Blood Culture - Final Blood - Peripheral Staphylococcus aureus Anaerobic Blood Culture - Final Staphylococcus aureus 04/28/18 23:45 Aerobic Blood Culture - Final Blood - Peripheral Staphylococcus aureus Anaerobic Blood Culture - Final Staphylococcus aureus 04/29/18 07:50 Gram Stain - Final Sputum - Expectorated Sputum Sputum Culture - Final Heavy growth normal respiratory edgard Medications: Active Medications Generic Name Dose Route Start Last Admin Trade Name Freq PRN Reason Stop Dose Admin Acetaminophen 650 mg 04/29/18 01:51 05/02/18 15:12 Tylenol PO 650 mg Q6H PRN Administration TEMPERATURE > 101 F Albuterol 1 ampul 04/29/18 01:51 05/03/18 17:44 Duoneb Neb (Prn) NEB 1 ampul Q2HR NEB PRN Administration WHEEZING Lactated Ringer's 1,000 mls @ 100 mls/hr 04/29/18 02:00 05/04/18 04:01 Lr 1000 Ml Inj IV.CONT Not Given .Q10H [facility] Cefazolin Sodium/Dextrose 2 gm in 50 mls @ 100 mls/hr 05/01/18 15:00 06:43 Ancef 2 Gm Premix Inj IV.SIG 100 mls/hr Q8H [facility] Administration Lactulose 30 ml 04/29/18 09:00 05/04/18 08:38 Lactulose Liq PO Not Given BID [facility] Morphine Sulfate 8 mg 05/01/18 13:00 05/04/18 08:21 Morphine Inj IV.PUSH 05/04/18 12:59 8 mg Q4H [facility] Administration Multi-Ingredient Mouthwash/Gargle 5 ml 04/29/18 21:00 05/04/18 08:38 Magic Mouthwash Adult Liq SWISH-SWAL Not Given QID [facility] Oxycodone HCl 5 mg 04/29/18 01:51 05/01/18 10:46 Roxicodone PO 5 mg Q4H PRN Administration Pain 1-5 Pantoprazole Sodium 40 mg 04/29/18 02:00 05/04/18 01:09 Protonix Inj IV.PUSH 40 mg Q24H [facility] Administration Polyethylene Glycol 17 gm 04/29/18 09:00 05/04/18 08:39 Miralax PO Not Given BID [facility] Senna/Docusate Sodium 1 tab 04/29/18 09:00 05/04/18 08:24 Naa-Colace PO 1 tab BID [facility] Administration Sodium Chloride 2 ml 04/29/18 01:51 05/02/18 15:12 Ns Flush IV.FLUSH 2 ml UNSCH PRN Administration FLUSH AFTER USING IV ACCESS Sodium Chloride 2 spray 05/01/18 10:02 05/01/18 21:52 [place] Nasal [place] EACH NARE 2 spray Q4H PRN Administration NASAL CONGESTION Objective Remarks: GENERAL: Tired appearing younger male sitting up in bed in no acute distress SKIN: Warm and dry. HEAD: Normocephalic. EYES: No scleral icterus. No injection or drainage. NECK: Supple, trachea midline. CARDIOVASCULAR: Regular rate and rhythm without murmurs. RESPIRATORY: Scattered wheezes, rhonchi bilaterally GASTROINTESTINAL: Abdomen soft, non-tender, nondistended. EXTREMITIES: No cyanosis, or edema. MUSCULOSKELETAL: Adequate muscle tone. NEUROLOGICAL: No obvious focal deficit. Awake, alert, and oriented x3. Assessment/Plan - Plan Mr. Turner is a 43-year-old man with second recurrent aggressive T-cell lymphoblastic lymphoma. He is status post cycle 1 of ICE salvage chemotherapy at the same time as a right VATS thoracotomy for his recurrent pleural effusion. He has pancytopenia from his recent chemotherapy. He is admitted with fever, sepsis and pancytopenia. 1. The patient is no longer neutropenic. I have stopped his growth factor support as his ANC is greater than 5000. Platelet count mildly decreased today to 10,000. We will give him 1 unit leuko-reduced and irradiated platelets 2. Patient continues on antimicrobial therapy with Ancef every 8 hours. 3. Pleurx catheter was drained yesterday with only 50 mL output. 4. Once antibiotic therapy can be arranged with home health care per infectious disease recommendations the patient can be discharged from oncology standpoint 5. Supportive care - Attending Statement The exam, history, and the medical decision-making described in the above note were completed with the assistance of the mid-level provider. I reviewed and agree with the findings presented. I attest that I had a [id number] encounter with the patient on the same day, and personally performed and documented my assessment and findings in the medical record. He is in better mood today. His and 2 daughters present at bedside He denies any fever Chest tube is draining very little He is on antibiotic Ancef every 8 hours Neutropenia has resolved, DC Neupogen Platelet transfusion 1 unit today ID needs to make arrangement for outpatient antibiotic Extensive discussion with the patient and his Dr. Leigh to resume care in the morning
[2018-05-04] MEDS ORDERED: Acetaminophen 325 MG Tablet PO PRN (10:53)
[2018-05-04] MEDS ORDERED: Sodium Chlor 0.9% Inj 250 ML IV.SIG SCH (11:00)
--- NOTE | 2018-05-04 15:31 | P.PNIM ---
Subjective Interval history: Follow-up for MSSA bacteremia No fever, no chills, feels good today. No shortness of breath. Physical Exam Vital signs: Last Vital Signs Temp 98.1 F 05/04/18 12:27 Pulse 109 H 05/04/18 13:26 Resp 20 05/04/18 13:26 BP 125/73 05/04/18 13:26 Pulse Ox 92 L 05/04/18 13:26 Intake & Output 05/02/18 05/03/18 05/04/18 05/05/18 06:59 06:59 06:59 06:59 Intake Total 5340 / 5340 2880 / 2880 3860 / 3860 50 / 50 Output Total 3450 / 3450 2950 / 2950 4850 / 4850 Balance 1890 / 1890 -70 / -70 -990 / -990 50 / 50 Weight 91 kg 92 kg 86 kg Narrative: GENERAL: Not in distress. CHEST: Clear breath sounds bilaterally, decreased breath sounds in the right. No wheezing. CARDIOVASCULAR: Regular rate and rhythm, no murmurs. ABDOMEN: Soft, nontender, nondistended. No guarding. MUSCULOSKELETAL: Pulses 1+. No peripheral edema. NEUROLOGICAL: Alert awake and oriented, no focal deficits. Results Labs CBC & Chem 7: 05/04/18 04:00 05/04/18 04:00 Labs: Microbiology 05/02/18 10:35 Blood - Peripheral Aerobic Blood Culture - Preliminary No growth in 2 days 05/02/18 10:35 Blood - Peripheral Anaerobic Blood Culture - Preliminary No growth in 2 days 05/02/18 10:43 Blood - Peripheral Aerobic Blood Culture - Preliminary No growth in 2 days 05/02/18 10:43 Blood - Peripheral Anaerobic Blood Culture - Preliminary No growth in 2 days Assessment and Plan Plan 43yM with history of non-Hodgkin's lymphoma now with neutropenic severe sepsis. suspect pulmonary source given cough and SOB. Severe sepsis secondary to Staphylococcus aureus bacteremia and healthcare associated pneumonia/Neutropenic in the background of neutropenia-antibiotics per infectious disease, blood culture grew MSSA, cefazolin started. Monitor WBC. Blood culture from 05/02/2018 still negative. Will need 10 days of cefazolin. Need to discuss with infectious disease tomorrow if can be changed to another antibiotic, otherwise, possible discharge on Ancef for 10 days. Pancytopenia-Neupogen per oncology, supportive transfusion. Maintain hemoglobin greater than 7.4 and platelets greater than 15,000. Neutropenia resolved, further management per oncology. Transfuse 1 unit of platelets today. T-cell lymphoblastic lymphoma, right pleural effusion, [id number] be secondary to response to chemotherapy patient has Pleurx catheter on right side. Output about 50 cc. Status post chemotherapy and right VATS thoracotomy , might not need any thoracentesis. Hypotension secondary to intravascular volume depletion- now has resolved. pericardial effusion- echo with mild to moderate pericardial effusion without tamponade. history of DVT/SVC syndrome- hold Xarelto for now due to thrombocytopenia. Hypokalemia-replaced, resolved. Protonix for GI ppx. SCDs, pharmacological prophylaxis contraindicated. Discharge once cleared by oncology to home health care for antibiotic needs.
--- NOTE | 2018-05-04 15:32 | P.DCO ---
Home Health Nursing Order: Medical education, Signs/symptoms of disease process, Nursing assessment with vital signs and IV medication administration Case Management Consult Case Management Consult-Home Health: Yes I have seen patient Ronnell Turner on 05/04/18. My clinical findings support the need for the requested home health care services because: Limited mobility due to disease progression and Deconditioned with increased weakness I certify that my clinical findings support that this patient is homebound because: Unsteady gait/balance
[2018-05-05] MEDS: Morphine Inj 4 MG/ML Vial IV.PUSH SCH ×5 (00:01→16:16)
[2018-05-05] MEDS: Pantoprazole Inj 40 MG Vial IV.PUSH SCH (02:25)
[2018-05-05 05:50] LABS: Baso % (Auto) 0.2 % (0.0-2.0); Hematocrit 23.5 % (39.0-51.0); Hemoglobin 8.2 gm/dL (13.0-17.0); Lymph # (Auto) 0.3 th/mm3 (1.0-4.8); Lymph % (Auto) 5.6 % (9.0-44.0); Mean Corpuscular HGB Conc 34.9 % (32.0-36.0); Mean Corpuscular Hemoglobin 25.9 pg (27.0-34.0); Mean Corpuscular Volume 74.3 fL (80.0-100.0); Mean Platelet Volume 9.5 fL (7.0-11.0); Mono # (Auto) 0.7 th/mm3 (0.0-0.9); Mono % (Auto) 15.3 % (0.0-8.0); Neut # (Auto) 3.6 th/mm3 (1.8-7.7); Neut % (Auto) 78.9 % (16.0-70.0); Platelet Count 43 th/mm3 (150-450); Red Blood Count 3.16 mil/mm3 (4.50-5.90); Red Cell Distribution Width 19.8 % (11.6-17.2); White Blood Count 4.5 th/mm3 (4.0-11.0)
[2018-05-05 06:02] LABS: Alanine Aminotransferase 24 U/L (12-78); Albumin 2.1 g/dL (3.4-5.0); Anion Gap 7 meq/L (5-15); Aspartate Aminotransferase 20 U/L (15-37); Blood Urea Nitrogen 5 mg/dL (7-18); Calcium 8.1 mg/dL (8.5-10.1); Chloride 100 meq/L (98-107); Glomerular Filtration Rate Greater Than 89 mL/min (>89); Glucose,Random 119 mg/dL (74-106); Magnesium 1.9 mg/dL (1.5-2.5); Phosphorus 3.4 mg/dL (2.5-4.9); Potassium 3.3 meq/L (3.5-5.1); Sodium 137 meq/L (136-145)
[2018-05-05 06:05] LABS: Alkaline Phosphatase 119 U/L (45-117); Total Protein 6.2 g/dL (6.4-8.2)
[2018-05-05] MEDS: ceFAZolin 2 GM Premix Inj 2 GM/50 ML PIGGYBACK IV.SIG SCH (06:47)
[2018-05-05] MEDS: Senna/Docusate Sodium 8.6/50 MG Tablet PO SCH (08:26)
[2018-05-05 08:28] LABS: Dohle Bodies Present; Lymphocytes 3 % (9-44); Monocytes 5 % (0-8); Platelet Morphology Normal (Normal); Promyelocyte 1 % (0-0); Toxic Granulation 2+
[2018-05-05 08:29] LABS: Spherocytes Occ
[2018-05-05] MEDS: Polyethylene Glycol 3350 17 GM Packet PO SCH (08:42)
[2018-05-05] MEDS: Nystatin/Diphenhydramine/Lidocaine Mouthwash (Adult) 120 ML Botttle SWISH-SWAL SCH ×2 (08:42→12:12)
--- NOTE | 2018-05-05 09:52 | P.PNONC ---
Subjective Interval history: Afebrile. Patient sitting up in bed. He is frustrated that he is still in the hospital. He states he really wants to go home today. It is his understanding he is awaiting infectious disease for recommendations on discharge antibiotics. He has no complaints at this time. Denies shortness of breath, denies bleeding. Objective Vital Signs/Intake & Output: Vital Signs 05/04/18 09:52 05/04/18 12:00 05/04/18 12:27 Temperature 98.1 F Pulse Rate 110 H 111 H Respiratory Rate 18 Blood Pressure 123/77 Pulse Oximetry 95 98 05/04/18 13:26 05/04/18 16:00 05/04/18 16:59 Temperature 98.1 F Pulse Rate 109 H 111 H 97 H Respiratory Rate 20 18 Blood Pressure 125/73 117/78 Pulse Oximetry 92 L 94 L 05/04/18 19:53 05/04/18 19:57 05/04/18 23:03 Temperature 99 F Pulse Rate 111 H 112 H 100 H Respiratory Rate 20 16 Blood Pressure 115/78 Pulse Oximetry 95 05/04/18 23:35 05/05/18 00:02 05/05/18 00:20 Temperature 99.3 F Pulse Rate 120 H 125 H 104 H Respiratory Rate 20 Blood Pressure 115/70 Pulse Oximetry 94 L 05/05/18 03:58 05/05/18 04:03 05/05/18 07:00 Temperature 98.5 F Pulse Rate 107 H 109 H 98 H Respiratory Rate 18 Blood Pressure 122/73 Pulse Oximetry 95 05/05/18 08:21 Temperature 99.2 F Pulse Rate 105 H Respiratory Rate 18 Blood Pressure 113/72 Pulse Oximetry 94 L Intake & Output 05/04/18 05/05/18 05/05/18 18:59 06:59 18:59 Intake Total 1240 / 1240 545 / 545 Output Total 1750 / 1750 1925 / 1925 Balance -510 / -510 -1380 / -1380 Weight 85.7 kg Intake: IV 100 / 100 55 / 55 Ancef 2 GM Premix Inj 2 gm In 100 / 100 55 / 55 50 ml @ 100 mls/hr IV.SIG Q8H [facility] Rx#:[id number] Oral 1140 / 1140 490 / 490 Intake (Blood Product) Amt 0 / 0 Plt Pheresis S Leukored/Irr 0 / 0 Unit [id number] Output: Urine 1750 / 1750 1925 / 1925 Other: Date of Last Bowel Movement 05/03/18 05/04/18 05/03/18 Result Diagrams: 05/05/18 04:05 05/05/18 04:05 Laboratory Results: Laboratory Results - last 24 hr 05/04/18 05/05/18 05/05/18 11:01 04:05 04:05 WBC 4.5 RBC 3.16 L Hgb 8.2 L Hct 23.5 L MCV 74.3 L MCH 25.9 L MCHC 34.9 RDW 19.8 H Plt Count 43 L D MPV 9.5 Prelim Diff (Auto) Slide review pending Neut % (Auto) 78.9 H Lymph % (Auto) 5.6 L [place] % (Auto) 15.3 H Eos % (Auto) 0.0 Baso % (Auto) 0.2 Neut # (Auto) 3.6 Lymph # (Auto) 0.3 L [place] # (Auto) 0.7 Eos # (Auto) 0.0 Baso # (Auto) 0.0 WBC Differential Manual diff final Seg Neuts % (Manual) 74 H Band Neuts % (Manual) 17 H Lymphocytes % (Manual) 3 L Monocytes % (Manual) 5 Promyelocytes % (Man) 1 H Abs Neuts (Manual) 4.1 Differential Comment . Toxic Granulation 2+ H Dohle Bodies Present H Platelet Estimate Low L Platelet Morphology Normal Spherocytes Occ H Sodium 137 Potassium 3.3 L Chloride 100 Carbon Dioxide 30.0 Anion Gap 7 BUN 5 L Creatinine 0.61 Estimated GFR Greater than 89 Random Glucose 119 H Calcium 8.1 L Phosphorus 3.4 Magnesium 1.9 Total Bilirubin 0.5 AST 20 ALT 24 Alkaline Phosphatase 119 H Total Protein 6.2 L Albumin 2.1 L Bld Prod Order Comment Culture Results: Microbiology 05/02/18 10:35 Aerobic Blood Culture - Preliminary Blood - Peripheral No growth in 2 days Anaerobic Blood Culture - Preliminary No growth in 2 days 05/02/18 10:43 Aerobic Blood Culture - Preliminary Blood - Peripheral No growth in 2 days Anaerobic Blood Culture - Preliminary No growth in 2 days Medications: Active Medications Generic Name Dose Route Start Last Admin Trade Name Freq PRN Reason Stop Dose Admin Acetaminophen 650 mg 04/29/18 01:51 05/02/18 15:12 Tylenol PO 650 mg Q6H PRN Administration TEMPERATURE > 101 F Acetaminophen 650 mg 05/04/18 10:53 05/04/18 12:05 Tylenol PO 650 mg Q4H PRN Administration SEE LABEL COMMENTS Albuterol 1 ampul 04/29/18 01:51 05/04/18 23:02 Duoneb Neb (Prn) NEB 1 ampul Q2HR NEB PRN Administration WHEEZING Diphenhydramine HCl 25 mg 05/04/18 10:53 05/04/18 12:06 Benadryl PO 25 mg Q4H PRN Administration SEE LABEL COMMENTS Cefazolin Sodium/Dextrose 2 gm in 50 mls @ 100 mls/hr 05/01/18 15:00 06:47 Ancef 2 Gm Premix Inj IV.SIG 100 mls/hr Q8H [facility] Administration Lactulose 30 ml 04/29/18 09:00 05/05/18 08:42 Lactulose Liq PO Not Given BID [facility] Morphine Sulfate 8 mg 05/01/18 13:00 05/05/18 08:25 Morphine Inj IV.PUSH 05/08/18 12:59 8 mg Q4H [facility] Administration Multi-Ingredient Mouthwash/Gargle 5 ml 04/29/18 21:00 05/05/18 08:42 Magic Mouthwash Adult Liq SWISH-SWAL Not Given QID [facility] Oxycodone HCl 5 mg 04/29/18 01:51 05/01/18 10:46 Roxicodone PO 5 mg Q4H PRN Administration Pain 1-5 Pantoprazole Sodium 40 mg 04/29/18 02:00 05/05/18 02:25 Protonix Inj IV.PUSH 40 mg Q24H [facility] Administration Polyethylene Glycol 17 gm 04/29/18 09:00 05/05/18 08:42 Miralax PO Not Given BID [facility] Senna/Docusate Sodium 1 tab 04/29/18 09:00 05/05/18 08:26 Naa-Colace PO 1 tab BID [facility] Administration Sodium Chloride 2 ml 04/29/18 01:51 05/02/18 15:12 Ns Flush IV.FLUSH 2 ml UNSCH PRN Administration FLUSH AFTER USING IV ACCESS Sodium Chloride 2 spray 05/01/18 10:02 05/01/18 21:52 [place] Nasal Combined [place] EACH NARE 2 spray Q4H PRN Administration NASAL CONGESTION Objective Remarks: GENERAL: Chronically ill-appearing male patient, no acute distress. SKIN: Pale, warm and dry. HEAD: Normocephalic. EYES: No scleral icterus. No injection or drainage. NECK: Supple, trachea midline. CARDIOVASCULAR: Regular rate and rhythm without murmurs. RESPIRATORY: Posterior breath sounds coarse, mild expiratory wheeze. No accessory muscle use. GASTROINTESTINAL: Abdomen soft, non-tender, nondistended. EXTREMITIES: No cyanosis, or edema. MUSCULOSKELETAL: Adequate muscle tone. NEUROLOGICAL: No obvious focal deficit. Awake, alert, and oriented x3. PSYCHIATRIC: Flat affect; insight and judgment normal. Assessment/Plan - Plan Mr. Turner is a 43-year-old man with second recurrent aggressive T-cell lymphoblastic lymphoma. He is status post cycle 1 of ICE salvage chemotherapy at the same time as a right VATS thoracotomy for his recurrent pleural effusion. He has pancytopenia from his recent chemotherapy. He is admitted with fever, sepsis and pancytopenia. 1. Neutropenia, resolved. ANC 4.1 today. 2. Patient continues on antimicrobial therapy with Ancef every 8 hours. 3. Pleurx catheter, drained 50 mL on 05/04/2018. 4. From an oncology standpoint the patient may be discharged home. Antibiotics per infectious disease. Patient should follow-up in the outpatient clinic for lab work on Saturday.
--- NOTE | 2018-05-05 12:16 | P.DCO ---
Post Hospital Infusion Therapy - Infusion Therapy Location of Infusion Therapy: Home Health Care IV Infusion Order - Patient Information Patient Weight: 85.7 kg - Diagnosis (1) Neutropenic sepsis Code(s): A41.9 - Sepsis, unspecified organism; D70.9 - Neutropenia, unspecified - Administer Medication Ceftriaxone Dose: 2 grams IV Directions: q 24 hours Stop Treatment: 05/12/18 - Additional Information Venous Access: Tunneled Catheter Additional Instructions: [x] Peripheral flush and dressing changes per protocol [x] Implanted port and central superintendent pipelines: * Implanted port: 10 ml Normal Saline followed by 5 ml Heparin 100 units/ml Heparin flush after each use and monthly to maintain. [] May leave port accessed during therapy. [] May leave peripheral site accessed for duration of therapy. [x] If patient has SOB or respiratory distress, check oxygen saturation. If less than 90% or clinical signs of respiratory distress, administer oxygen at 2 L/min. via nasal cannula and notify physician. [x] Anaphylaxis/Reaction orders: * Stop infusion. * Keep IV line open with saline flush. * Notify physician. * Monitor vital signs every 15 minutes until symptoms resolve. * Check Oxygen saturation; Oxygen at 2 L/min. via nasal cannula if less than 90% or clinical signs of respiratory distress. * Administer diphenhydramine (Benadryl) 25 mg IV STAT, (unless patient has received as pre-med). May repeat once, if necessary. * Solu-Cortef 250 mg IVP over 30-60 seconds, use 100 mg vials for each dissolution. * Epinephrine (1mg/1 ml) 0.3 mg subcutaneously or IVP now with any signs of respiratory distress. * Check with physician for new additional pre-med orders if patient is re- challenged or re-treated. [x] May remove PICC line when treatment complete, after confirming with Physician. [x] If the patient is admitted to the hospital, the ED, or transferred via [facility] , complete transfer form including medication reconciliation order sheet. Weekly Labs: BMP - Case Management Consult Case Management Consult-IVF: Yes - Patient Information Allergies adhesive tape Adverse Reaction (Verified 04/12/18 03:58) Blister
--- NOTE | 2018-05-05 12:21 | P.PNID ---
Subjective Remarks: Patient is without complaints. Afebrile. Still has pain in the left chest. No fever. Denies shortness of breath. WBC 4.5. Platelet count 43. Blood culture has staph aureus. Methicillin sensitive. 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 The patient has been undergoing chemotherapeutic treatments. He was noted to have recurrence of the T-cell lymphoma. He was admitted to the hospital on 04/28/2018. He last received chemotherapy approximately 10 days ago and he started to get fever and also developed chest pain and chills and presented to the emergency department for evaluation. The patient had a temperature of 101.6 in the emergency department and the heart rate was 147. His white blood cell count was low at 0.2. His platelet count was also low at 6. Chest x-ray shows near complete opacification of the right hemithorax with slight increase when compared to prior study of 04/19/2018. The patient has been known to have opacification of the right hemithorax and he has had multiple thoracenteses for pleural effusion. He reports to me that he coughs up slight yellow sputum occasionally and that he has been having chills over the last few nights and also has been feeling very tired. The patient also reports that he has had some nose bleeding over the past 2 days and that there was some blood-tinged sputum, which he feels is likely related to the nosebleed. He has had occasional dry cough and soreness of the throat and body aches. ID consulted for neutropenic fever. Past Medical History: PAST MEDICAL HISTORY: T-cell lymphoblastic lymphoma. The patient has been receiving chemotherapy. Also, asthma, herniated disks, pleural effusion, pneumonia in 2017. Allergies/Adverse Reactions: Allergies adhesive tape Adverse Reaction (Verified 04/12/18 03:58) Blister Objective Vital Signs 05/04/18 12:27 05/04/18 13:26 05/04/18 16:00 Temperature 98.1 F 98.1 F Pulse Rate 111 H 109 H 111 H Respiratory Rate 18 20 18 Blood Pressure 123/77 125/73 117/78 Pulse Oximetry 98 92 L 94 L 05/04/18 16:59 05/04/18 19:53 05/04/18 19:57 Temperature 99 F Pulse Rate 97 H 111 H 112 H Respiratory Rate 20 Blood Pressure 115/78 Pulse Oximetry 95 05/04/18 23:03 05/04/18 23:35 05/05/18 00:02 Temperature 99.3 F Pulse Rate 100 H 120 H 125 H Respiratory Rate 16 20 Blood Pressure 115/70 Pulse Oximetry 94 L 05/05/18 00:20 05/05/18 03:58 05/05/18 04:03 Temperature 98.5 F Pulse Rate 104 H 107 H 109 H Respiratory Rate 18 Blood Pressure 122/73 Pulse Oximetry 95 05/05/18 07:00 05/05/18 08:21 05/05/18 11:09 Temperature 99.2 F Pulse Rate 98 H 105 H 103 H Respiratory Rate 18 Blood Pressure 113/72 Pulse Oximetry 94 L 05/05/18 11:10 05/05/18 11:18 Temperature 98.9 F Pulse Rate 105 H 89 Respiratory Rate 18 22 Blood Pressure 112/77 Pulse Oximetry 95 95 Intake & Output 05/04/18 05/05/18 05/05/18 18:59 06:59 18:59 Intake Total 1240 / 1240 545 / 545 Output Total 1750 / 1750 1924 / 1924 Balance -510 / -510 -1380 / -1380 Weight 85.7 kg 85.7 kg Intake: IV 100 / 100 55 / 55 Ancef 2 GM Premix Inj 2 gm In 100 / 100 55 / 55 50 ml @ 100 mls/hr IV.SIG Q8H [facility] Rx#:[id number] Oral 1140 / 1140 490 / 490 Intake (Blood Product) Amt 0 / 0 Plt Pheresis S Leukored/Irr 0 / 0 Unit [id number] Output: Urine 1750 / 1750 1924 / 1924 Other: Date of Last Bowel Movement 05/03/18 05/04/18 05/03/18 05/02/18 10:43 Blood - Peripheral Aerobic Blood Culture - Preliminary No growth in 3 days 05/02/18 10:43 Blood - Peripheral Anaerobic Blood Culture - Preliminary No growth in 3 days 05/02/18 10:35 Blood - Peripheral Aerobic Blood Culture - Preliminary No growth in 3 days 05/02/18 10:35 Blood - Peripheral Anaerobic Blood Culture - Preliminary No growth in 3 days Lab - Hematology Results 05/04/18 05/05/18 04:00 04:05 WBC 6.0 4.5 RBC 3.29 L 3.16 L Hgb 8.6 L 8.2 L Hct 25.1 L 23.5 L MCV 76.2 L 74.3 L MCH 26.2 L 25.9 L MCHC 34.4 34.9 RDW 19.9 H 19.8 H Plt Count 10 L* D 43 L D MPV 10.7 9.5 Prelim Diff (Auto) Slide review pending Slide review pending Neut % (Auto) 84.2 H 78.9 H Lymph % (Auto) 3.2 L 5.6 L Todd % (Auto) 12.3 H 15.3 H Eos % (Auto) 0.0 0.0 Baso % (Auto) 0.3 0.2 Neut # (Auto) 5.0 3.6 Lymph # (Auto) 0.2 L 0.3 L Todd # (Auto) 0.7 0.7 Eos # (Auto) 0.0 0.0 Baso # (Auto) 0.0 0.0 WBC Differential Manual diff final Manual diff final Seg Neuts % (Manual) 80 H 74 H Band Neuts % (Manual) 18 H 17 H Lymphocytes % (Manual) 3 L Monocytes % (Manual) 1 5 Metamyelocytes % (Man) 1 Promyelocytes % (Man) 1 H Abs Neuts (Manual) 5.9 4.1 Differential Comment . . Toxic Granulation 2+ H 2+ H Dohle Bodies Present H Present H Platelet Estimate Rare L Low L Platelet Morphology Normal Normal Spherocytes Occ H Lab - Chemistry Results 05/04/18 05/05/18 04:00 04:05 Sodium 136 137 Potassium 3.6 3.3 L Chloride 100 100 Carbon Dioxide 30.1 30.0 Anion Gap 6 7 BUN 5 L 5 L Creatinine 0.56 L 0.61 Estimated GFR Greater than 89 Greater than 89 Random Glucose 87 119 H Calcium 8.4 L 8.1 L Phosphorus 2.9 3.4 Magnesium 1.9 1.9 Total Bilirubin 0.7 0.5 AST 20 20 ALT 23 24 Alkaline Phosphatase 119 H 119 H Total Protein 6.2 L 6.2 L Albumin 2.0 L 2.1 L Imaging: ITS Impressions Chest X-Ray 04/28/18 23:38 CONCLUSION: 1. Near complete opacification of the right hemithorax with slight increase when compared to the prior study of 04/19/2018. 2. New mild patchy opacity at the left lung base. Chest CTA 04/29/18 00:00 CONCLUSION: 1. No evidence of pulmonary embolus. 2. Moderate-sized right pleural effusion again seen along with scattered gas within the pleural effusion. 3. Extensive diffuse right lung consolidation again seen. 4. Moderate severity multifocal patchy consolidation in the left lung is new. 5. Moderate-sized pericardial effusion, increased in size when compared to the prior study. Physical Exam: GENERAL: No acute distress. Awake and alert and oriented. HEENT: The head is atraumatic. Extraocular movements grossly intact. Pupils reactive to light. The pupils are constricted. No icterus. No conjunctival erythema. Oropharynx moist mucosa without visible lesions. Dried lesion in the mid aspect of the lower lip. NECK: Supple without adenopathy. LUNGS: Decreased breath sounds. HEART: Regular S1 and S2, without audible murmurs. ABDOMEN: Bowel sounds present. Soft, mildly obese, nontender. EXTREMITIES: No clubbing or cyanosis or edema. SKIN: No rash. Warm and moist. NEUROLOGIC: No gross focal finding. PSYCHIATRIC: Calm and cooperative. Assessment and Plan (1) Neutropenic sepsis Status: Acute Code(s): A41.9 - Sepsis, unspecified organism; D70.9 - Neutropenia, unspecified - Plan IMPRESSION: 1. Bacteremia due to MSSA. Repeat blood culture negative. 2. Neutropenia and fever. White blood cell count improving. 3. T-cell lymphoblastic lymphoma, status post chemotherapy. 4. Pneumonia of the left lung, along with consolidation/effusion of the right lung. RECOMMENDATIONS: Continue antibiotic treatment with Rocephin 2 g IV every 24 hours until 2017. Case management consulted to make arrangements for outpatient antibiotic treatment. Antibiotic orders written on infusion form. Patient has tunneled catheter which can be used to administer antibiotics. He can be discharged when arrangements are made for antibiotics.
[2018-05-05 15:09] VITALS: BP 137/85; PULSE 110; RESP 18; TEMP 99; O2SAT 92
[2018-05-05] MEDS ORDERED: Heparin Central Flush 100 UNIT/ML 5 ML Vial IV.FLUSH ONE (16:11)
--- NOTE | 2018-05-05 17:12 | P.DS ---
Date of admission: 04/29/18 00:15 Primary care physician: Bienvenido Guzman MD Brief History from admission: 43yM with history of non-Hodgkin's lymphoma presents with 1 day history of fever. seen in clinic yesterday. approximately 1 week s/p chemotherapy and pancytopenic. endorses cough, sob. denies n/v/c/d/abd pain. CT chest shows persistent known right-sided infiltrates related to prior pneumonitis from radiation. has pleurex catheter in place. febrile and hypotensive in ER which responded to ivf. received cefepime, azithromycin in the ER. remainder of ROS negative. DS: Summary Hospital Course: Patient was treated for neutropenic sepsis with broad-spectrum antibiotics. Patient was treated for pneumonia. Please see imaging. Blood cultures grew out staph aureus. Infectious disease was consulted. Patient improved on IV antibiotics. Neutropenia resolves. Patient will continue on IV ceftriaxone until 05/12. For problem-based summary from most recent progress note, please see below. 43yM with history of non-Hodgkin's lymphoma now with neutropenic severe sepsis. suspect pulmonary source given cough and SOB. //Severe sepsis secondary to Staphylococcus aureus bacteremia and healthcare associated pneumonia/Neutropenic in the background of neutropenia-antibiotics per infectious disease, blood culture grew MSSA, cefazolin started. Monitor WBC. Blood culture from 05/02/2018 still negative. Will need 10 days of cefazolin. Need to discuss with infectious disease tomorrow if can be changed to another antibiotic, otherwise, possible discharge on Ancef for 10 days. = Discharge home with antibiotics as per infectious disease. //Pancytopenia-Neupogen per oncology, supportive transfusion. Maintain hemoglobin greater than 7.4 and platelets greater than 15,000. Neutropenia resolved, further management per oncology. Transfuse 1 unit of platelets today. //T-cell lymphoblastic lymphoma, right pleural effusion, [id number] be secondary to response to chemotherapy patient has Pleurx catheter on right side. Output about 50 cc. Status post chemotherapy and right VATS thoracotomy , might not need any thoracentesis. = Follow-up with oncology as outpatient. //Hypotension secondary to intravascular volume depletion- now has resolved. //pericardial effusion- echo with mild to moderate pericardial effusion without tamponade. //history of DVT/SVC syndrome- hold Xarelto for now due to thrombocytopenia. //Hypokalemia-replaced, resolved. = With oncology tomorrow. Protonix for GI ppx. SCDs, pharmacological prophylaxis contraindicated. Discharge Planning: Charge home on antibiotics to complete treatment course on 05/12. Appreciate ID assistance Follow-up with oncology as outpatient. - Time Spent with Patient Total time spent providing and/or coordinating discharge services: Greater than 30 minutes Exam Vital signs: Vital Signs 05/04/18 19:53 05/04/18 19:57 05/04/18 23:03 Temperature 99 F Pulse Rate 111 H 112 H 100 H Respiratory Rate 20 16 Blood Pressure 115/78 Pulse Oximetry 95 05/04/18 23:35 05/05/18 00:02 05/05/18 00:20 Temperature 99.3 F Pulse Rate 120 H 125 H 104 H Respiratory Rate 20 Blood Pressure 115/70 Pulse Oximetry 94 L 05/05/18 03:58 05/05/18 04:03 05/05/18 07:00 Temperature 98.5 F Pulse Rate 107 H 109 H 98 H Respiratory Rate 18 Blood Pressure 122/73 Pulse Oximetry 95 05/05/18 08:21 05/05/18 11:09 05/05/18 11:10 Temperature 99.2 F 98.9 F Pulse Rate 105 H 103 H 105 H Respiratory Rate 18 18 Blood Pressure 113/72 112/77 Pulse Oximetry 94 L 95 05/05/18 11:18 05/05/18 15:00 05/05/18 15:06 Temperature 99 F Pulse Rate 89 110 H 110 H Respiratory Rate 22 18 Blood Pressure 137/85 Pulse Oximetry 95 92 L Intake & Output 05/04/18 05/05/18 05/05/18 18:59 06:59 18:59 Intake Total 1240 / 1240 545 / 545 100 / 100 Output Total 1750 / 1750 1925 / 1925 1000 / 1000 Balance -510 / -510 -1380 / -1380 -900 / -900 Weight 85.7 kg 85.7 kg Intake: IV 100 / 100 55 / 55 100 / 100 Ancef 2 GM Premix Inj 2 gm In 100 / 100 55 / 55 50 ml @ 100 mls/hr IV.SIG Q8H [facility] Rx#:[id number] Rocephin Inj 2,000 MG In NS Inj 100 / 100 100 ML @ 200 mls/hr IV.SIG Q24H [facility] Rx#:[id number] Oral 1140 / 1140 490 / 490 Intake (Blood Product) Amt 0 / 0 Plt Pheresis S Leukored/Irr 0 / 0 Unit [id number] Output: Urine 1750 / 1750 1925 / 1925 1000 / 1000 Other: Date of Last Bowel Movement 05/03/18 05/04/18 05/03/18 Results Procedures completed during hospitalization: no invasive procedures. Labs on day of discharge: Labs from last 24 hours 05/05/18 05/05/18 04:05 04:05 WBC 4.5 RBC 3.16 L Hgb 8.2 L Hct 23.5 L MCV 74.3 L MCH 25.9 L MCHC 34.9 RDW 19.8 H Plt Count 43 L D MPV 9.5 Prelim Diff (Auto) Slide review pending Neut % (Auto) 78.9 H Lymph % (Auto) 5.6 L [place] % (Auto) 15.3 H Eos % (Auto) 0.0 Baso % (Auto) 0.2 Neut # (Auto) 3.6 Lymph # (Auto) 0.3 L [place] # (Auto) 0.7 Eos # (Auto) 0.0 Baso # (Auto) 0.0 WBC Differential Manual diff final Seg Neuts % (Manual) 74 H Band Neuts % (Manual) 17 H Lymphocytes % (Manual) 3 L Monocytes % (Manual) 5 Promyelocytes % (Man) 1 H Abs Neuts (Manual) 4.1 Differential Comment . Toxic Granulation 2+ H Dohle Bodies Present H Platelet Estimate Low L Platelet Morphology Normal Spherocytes Occ H Sodium 137 Potassium 3.3 L Chloride 100 Carbon Dioxide 30.0 Anion Gap 7 BUN 5 L Creatinine 0.61 Estimated GFR Greater than 89 Random Glucose 119 H Calcium 8.1 L Phosphorus 3.4 Magnesium 1.9 Total Bilirubin 0.5 AST 20 ALT 24 Alkaline Phosphatase 119 H Total Protein 6.2 L Albumin 2.1 L Preliminary micro results at discharge 05/02/18 10:43 Aerobic Blood Culture - Preliminary Blood - Peripheral No growth in 3 days Anaerobic Blood Culture - Preliminary No growth in 3 days 05/02/18 10:35 Aerobic Blood Culture - Preliminary Blood - Peripheral No growth in 3 days Anaerobic Blood Culture - Preliminary No growth in 3 days - Impressions ITS Impressions Chest X-Ray 04/28/18 23:38 CONCLUSION: 1. Near complete opacification of the right hemithorax with slight increase when compared to the prior study of 04/19/2018. 2. New mild patchy opacity at the left lung base. Chest CTA 04/29/18 00:00 CONCLUSION: 1. No evidence of pulmonary embolus. 2. Moderate-sized right pleural effusion again seen along with scattered gas within the pleural effusion. 3. Extensive diffuse right lung consolidation again seen. 4. Moderate severity multifocal patchy consolidation in the left lung is new. 5. Moderate-sized pericardial effusion, increased in size when compared to the prior study. Discharge Plan - Discharge Disposition Patient Disposition: /Home Health Service - Discharge Condition Condition: Good - Discharge Order Discharge Orders: Discharge Order (Routine); Ordered 05/05/18 Ordered By: Jose Garrett - Discharge Details Anticipated Discharge Date: 05/05/18 - Physicians Team Primary Care Provider: Bienvenido Guzman Attending Provider: Jose Garrett Other Providers: Tyrese Goodwin MD ; Taylor Mead MD ; Aysha Leigh MD ; [facility]
[2018-05-05] MEDS ORDERED: Potassium Chlor 10 mEq Premix 10 MEQ/100 ML PIGGYBACK IV.SIG SCH (19:00)
== END 2018-05-05 18:00 | disposition home health service (06) | DRG 871 ==
LOC: NEPC 23:19 → NEDA 04-29 00:15 → HIMC 04-29 04:05 → HCIN 05-01 18:48
PROVIDERS: ADMIT Internal Medicine; ATTEND Internal Medicine
CPT/HCPCS: 36430; 71010; 71045; 71275; 80053; 81001; 82550; 82948; 82962; 83605; 83690; 83735; 84100; 84132; 84134; 84484; 85025; 85610; 85730; 86403; 86850; 86900; 86901; 86923; 87040; 87070; 87147; 87186; 87205; 87275; 87276; 87449; 87641; 87804; 90761; 90765; 90775; 93005; 93308; 94640; 94650; 94664; 94665; 94667; 96361; 96365; 96372; 96374; 96375; 97110; 97162; 97167; 97530; 99291; C1014; C1018; C9113; J0456; J0690; J0692; J0696; J1170; J1441; J1442; J1642; J2270; J2405; J3370; J7030; J7040; J7050; J7120; P9016; P9035; P9037; P9040; Q9967

== ENCOUNTER 2018-05-21 08:11 | Inpatient (IN) ==
[2018-05-21] MEDS ORDERED: Aluminum/Magnesium/Simethacone Susp 30 ML UDC PO PRN (08:52)
[2018-05-21] MEDS ORDERED: Cathflo Activase Inj 2 MG Vial I-CATHETER PRN (08:52)
[2018-05-21] MEDS: Enoxaparin Inj 40 MG/0.4 ML Syringe SQ SCH (09:28)
--- NOTE | 2018-05-21 09:58 | MH ---
cc: Aysha Leigh MD DATE OF ADMISSION: 05/21/2018 ADMISSION DIAGNOSES: 1. T-cell lymphoblastic lymphoma relapse. 2. Chronic pain. 3. Fevers. 4. Pancytopenia. HISTORY OF PRESENT ILLNESS: Mr. Turner is a 43-year-old man with T-cell lymphoblastic lymphoma treated with CHOP chemotherapy, complicated by a right lung infiltrate and right lung pneumonitis. He developed relapse of his T-cell lymphoblastic lymphoma confirmed from cytology positive from his right pleural effusion. He has progressed on multiple lines of therapy including CHOP, oxaliplatin, gemcitabine, and most recently he has been placed on ICE pending consultation with transplant. He has a typical presentation of fevers associated with his lymphoma. His course was complicated by right-sided pleural effusion, for which thorascopic procedure was performed. A PleurX catheter was placed prior to his last chemotherapy. His course was complicated by admission to the hospital for neutropenic fever. Peripheral blood cultures from 04/28/2018 were positive for Staphylococcus aureus. After completion of his antibiotic therapy, repeat cultures on 05/02/2018 were negative. Present Yue is here for his next cycle of chemotherapy with ICE. He reports having fevers over the last several days. They are intermittent. They would break on their own. He did not take his temperature to see how high they are. In light of his fevers prior to his chemotherapy, his chemotherapy was placed on hold. Evaluation for the fever is initiated. 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 PAST SURGICAL HISTORY: Mediastinal mass biopsy, thoracentesis, pleurodesis, port placement, port removal, Perm-A-Cath triple lumen catheter placement, thrombolysis for left upper extremity deep venous thromboses, thorascopic procedure, PleurX catheter placement. ALLERGIES: NO KNOWN DRUG ALLERGIES. MEDICATIONS FROM HOME: Xarelto, prednisone has been discharged, Morphine sulfate, DuoNeb. FAMILY HISTORY: No family history of cancer. SOCIAL HISTORY: He is , lives with his and 2 daughters. Denies any tobacco, alcohol or illicit drug use. ALLERGIES: NO KNOWN DRUG ALLERGIES. PHYSICAL EXAMINATION: GENERAL: Mr. Turner is an anxious-appearing 43-year-old man. HEENT: Pupils are round, reactive to light and accommodation. Conjunctivae are pink. Oropharynx is clear. NECK: Supple. LUNGS: Diminished breath sounds in the right lung field. Some dullness to percussion at the right lung base. CARDIOVASCULAR: Reveals a normal rate and rhythm. ABDOMEN: Benign. EXTREMITIES: Upper extremities with no swelling. CHEST: Right chest wall triple lumen catheter in place without any erythema. Right chest PleurX catheter in place. LABORATORY DATA: Pending. ASSESSMENT AND PLAN: Mr. Turner is a 43-year-old man with a history of T-cell lymphoma. He is admitted directly for the next cycle of ICE chemotherapy. His last cycle of chemotherapy was complicated by a neutropenic fever. I discussed with Mr. Turner and his and family present at the consultation the need to evaluate his fevers further. He had an admission for neutropenic fever and bacteremia with Staphylococcus aureus. Staphylococcus aureus was treated. Followup blood cultures were negative. I am concerned about infectious etiology prior to starting his chemotherapy, which renders him quite immunosuppressed and pancytopenic for several days. He was previously heavily pretreated. Blood cultures will be obtained. Infectious disease will be consulted. He is having a great deal of pain from the PleurX catheter. We will attempt to drain the right chest wall catheter and send fluid for cytology. In the meantime, cardiothoracic surgery is consulted for the PleurX catheter to see if there is still appropriate placement or if it needs to be removed. Pending evaluation for the infectious etiologies for his fever, we will decide on the chemotherapy initiation. He has presented with fevers before associated with his T-cell lymphoma. His steroids have been discontinued altogether. Over the last 2 weeks, he has been off his Xarelto given bleeding/epistaxis associated with Xarelto use, along with severe thrombocytopenia. He also has been tapered off steroids completely. His Vfend was placed on hold during last admission. I defer to infectious disease appropriate antibiotic prophylaxis. Mr. Turner's pain regimen will continue with parenteral morphine. We will use oxycodone as breakthrough. We will monitor his response to treatment. MD ANURAG Viera/yo , 09:12 AM , 09:25 AM
[2018-05-21 10:34] LABS: Baso % (Auto) 0.2 % (0.0-2.0); Eos % (Auto) 0.3 % (0.0-4.0); Hematocrit 23.7 % (39.0-51.0); Hemoglobin 7.9 gm/dL (13.0-17.0); Lymph # (Auto) 0.1 th/mm3 (1.0-4.8); Lymph % (Auto) 2.3 % (9.0-44.0); Mean Corpuscular HGB Conc 33.2 % (32.0-36.0); Mean Corpuscular Hemoglobin 25.3 pg (27.0-34.0); Mean Corpuscular Volume 76.1 fL (80.0-100.0); Mean Platelet Volume 7.4 fL (7.0-11.0); Mono # (Auto) 0.8 th/mm3 (0.0-0.9); Mono % (Auto) 16.3 % (0.0-8.0); Neut # (Auto) 3.8 th/mm3 (1.8-7.7); Neut % (Auto) 80.9 % (16.0-70.0); Platelet Count 299 th/mm3 (150-450); Red Blood Count 3.11 mil/mm3 (4.50-5.90); Red Cell Distribution Width 20.1 % (11.6-17.2); Reticulocyte Percent 3.2 % (0.4-3.0); White Blood Count 4.7 th/mm3 (4.0-11.0)
[2018-05-21] MEDS: Morphine Sulfate Inj 8 MG/ML Vial IV.PUSH SCH ×5 (10:45→22:57)
[2018-05-21 10:48] LABS: Activated Partial Thrombo Time 36.2 sec (23.4-31.7); INR 1.2 Ratio; Prothrombin Time 12.3 sec (9.8-11.6)
[2018-05-21 10:52] LABS: Alanine Aminotransferase 28 U/L (12-78); Albumin 2.3 g/dL (3.4-5.0); Anion Gap 9 meq/L (5-15); Aspartate Aminotransferase 33 U/L (15-37); Blood Urea Nitrogen 8 mg/dL (7-18); Calcium 9.2 mg/dL (8.5-10.1); Carbon Dioxide 30.1 meq/L (21.0-32.0); Chloride 99 meq/L (98-107); Glomerular Filtration Rate 82 mL/min (>89); Glucose,Random 154 mg/dL (74-106); Lactate Dehydrogenase 772 U/L (87-241); Potassium 3.7 meq/L (3.5-5.1); Sodium 138 meq/L (136-145)
[2018-05-21 10:54] LABS: Alkaline Phosphatase 113 U/L (45-117); Total Protein 7.6 g/dL (6.4-8.2)
--- NOTE | 2018-05-21 12:42 | MB ---
cc: Tyrese Goodwin MD DATE: 05/21/2018 REQUESTING PHYSICIAN: Dr. Leigh. REASON: Fevers. Recent admission with neutropenic fever and bacteremia. HISTORY OF PRESENT ILLNESS: This is a 43-year-old white male who has T-cell lymphoblastic lymphoma. The patient was readmitted to continue with chemotherapy because of relapse of the lymphoma. He was noted to have fever over the past 2-3 days. He mentioned having sweats and also his temperature spiked to 102 degrees yesterday. He has been taking Tylenol. The patient is currently in bed and appears to be somewhat upset. His is at bedside. His temperature after being presented here this morning was 98.5. Blood pressure is 111/72. White blood cell count is 4.7 and platelet count is 299. He denies cough, sputum production, chest pain, headache, nausea, vomiting, dysuria, diarrhea. Blood cultures were drawn today. The patient has a chronic pleural effusion and a Pleur-evac drainage catheter. He reports that he has not had any drainage over the past 4 days. A sample for culture was taken by the nurse this morning and she reportedly had to squeeze on the drain to get some fluid out. She has about 3 mL of fluid in the container. She has about 3 mL of fluid in the specimen cup to be sent for culture. The patient completed IV ceftriaxone on 05/12/2018. PAST MEDICAL HISTORY: T-cell lymphoblastic lymphoma. Central line placed in February 2018. History of intervertebral disk compression. Left upper extremity DVT. Superior vena cava syndrome, malignant pleural effusion. ALLERGIES: NO KNOWN DRUG ALLERGIES. THE PATIENT IS ALLERGIC TO ADHESIVE TAPE. MEDICATIONS: 1. Lovenox. 2. Morphine sulfate p.r.n. 3. Oxycodone p.r.n. SOCIAL HISTORY: The patient is . He is a former smoker. No alcohol. No illicit drugs. FAMILY HISTORY: Noncontributory. REVIEW OF SYSTEMS: All systems have been reviewed and are negative, except for the features mentioned in history of present illness, particularly fever and sweats. PHYSICAL EXAMINATION: GENERAL: This is a slender, well-developed male who is in no acute distress. He is awake and alert and oriented. VITAL SIGNS: Temperature 98.5, BP 111/72, respirations 16, heart rate 102. HEENT: The head is atraumatic. Extraocular movements are grossly intact. Pupils reactive to light. No icterus. Oropharynx: Moist mucosa. NECK: Supple without adenopathy. LUNGS: Decreased breath sounds at the right lung field, upper and lower. Left lung is clear. HEART: Regular S1 and S2 without murmurs, rubs or gallops. ABDOMEN: Bowel sounds diminished. Soft, nontender. RECTAL: Not performed. EXTREMITIES: No clubbing, cyanosis or edema. SKIN: No rash. PSYCHIATRIC: The patient is calm and cooperative. His affect appears flat. LABORATORY DATA: WBC 4.7 80% neutrophils, 2.2% lymphocytes, 16% monocytes, hemoglobin 7.9, creatinine 1.0, BUN 8, sodium 138. LFTs normal. IMPRESSION: Fever in patient with T-cell lymphoblastic lymphoma. The patient admitted for chemotherapy, which is placed on hold because of the fever. Malignant pleural effusion. It is not clear whether the patient has infection as the cause of the fever. However, cultures will be monitored including blood cultures Chest x-ray will also be obtained. Monitor for signs which may indicate a source of the fever. It is also possible that the fever may be related to the underlying lymphoma. Thank you for this consultation. I will follow the patient's progress. Chest x-ray has been ordered. At this point, I would monitor the temperature to see if it continues before deciding on whether to start antibiotics. He does not appear toxic and his blood pressure is stable. If, however, he has high spiking temperature, antibiotics will need to be started up again. MD TERRY Fulton/britney , 11:47 AM , 12:04 PM SAMSON
--- NOTE | 2018-05-21 13:41 | XR ---
EXAM DATE: 05/21/2018 1:14 PM EST AGE/SEX: 43 years / Male INDICATIONS: . Short of breath. CLINICAL DATA: This is the patient's subsequent encounter. Patient reports that signs and symptoms h ave been present for 1 week and indicates a pain score of 2/10. MEDICAL/SURGICAL HISTORY: . Lymphoma. . [place] [facility] [place]. . FINDINGS: There is worsening opacification of the right lung the prior chest x-ray from 04/16/2018 an d the entire right hemithorax is opacified. Right IJ [id number] is seen. CONCLUSION: Worsening right hemithorax opacification completely opacified at this time probably due to worsening airspace consolidation and/or underlying pleural effusion. Electronically signed by: Beto Banks MD Board Certified Radiologist 05/21/2018 1:40 PM EST
[2018-05-21] MEDS: LORazepam 0.5 MG Tablet PO PRN (14:37)
--- NOTE | 2018-05-21 15:10 | MB ---
cc: Rin Farah APRN DATE: 05/21/2018 HISTORY OF PRESENT ILLNESS: This is a 43-year-old male known to our service, who recently underwent right video-assisted thoracoscopy, decortication, placement of a PleurX catheter on 04/16/2018; history of T-cell lymphoblastic lymphoma; readmitted to continue with chemo because a relapse of the lymphoma also with neutropenic fever for the past 2-3 days with temperatures spiking to 102, white cell count is 4.7. Denied having any cough, sputum production. He states that the PleurX catheter has not been draining at all for the past few days. The nurse was able to obtain some drainage, about 15 mL and was able to send fluid cultures. We were consulted to evaluate patency of the PleurX catheter. MEDICAL HEALTH HISTORY: Includes a T-cell lymphoblastic lymphoma, history of intervertebral disk compression, history of left upper extremity DVT, malignant pleural effusions. PAST SURGICAL HISTORY: Include the right VATS. He has also had the Infusaport, multiple thoracenteses. His last admission, he did have blood cultures, which were positive for Staph aureus; he completed antibiotic therapy. ALLERGIES: INCLUDE ADHESIVE TAPE. HOME MEDICATIONS: Include: 1. Tylenol. 2. Albuterol. 3. Morphine. 4. Prednisone. FAMILY HISTORY: Noncontributory. SOCIAL HISTORY: Patient is , lives with his . Nonsmoker. REVIEW OF SYSTEMS: As above in the HPI; other 12-systems unremarkable. PHYSICAL EXAMINATION: VITAL SIGNS: Blood pressure 120/80, heart rate of 102, temperature-max 99.5. GENERAL: Patient is awake, alert; no acute distress. HEENT: Head is normocephalic, atraumatic. Pupils equal and reactive. Oral mucosa pink, moist; color slightly pale. He does have a right-sided chest Infusaport, a PleurX catheter right anterior chest wall. The site appears without any erythema, swelling, induration. LUNGS: He is diminished in the right lower and mid lobe versus the left. No audible wheezing or rhonchi noted. ABDOMEN: Soft, nontender. No masses or organomegaly. EXTREMITIES: No cyanosis, clubbing, or edema. LABORATORY DATA: Lab work shows hemoglobin 7.9, hematocrit of 23, white cell count of 4.7, platelet count of 299. INR 1.2. Sodium 138, potassium 3.7, BUN of 8, creatinine 1.0. RADIOLOGICAL EXAMS: Chest x-ray: Worsening right hemothorax; opacification, completely opacified at this time due to airspace consolidations versus underlying pleural effusion. PLAN: At this time is to consult IR to evaluate for possibly flushing the right PleurX catheter. Studies have been sent for infectious effusion. If they are unable to flush, the patient may need to be evaluated for replacement of the PleurX catheter by interventional radiology. KELSEY Byrd MD JRT/lj , 02:36 PM , 02:44 PM
[2018-05-21] MEDS: Acetaminophen 325 MG Tablet PO PRN ×2 (16:42→23:05)
[2018-05-21] MEDS ORDERED: Temazepam 15 MG Capsule PO PRN (21:00)
[2018-05-21 21:30] LABS: Neutrophils,Pleural Fluid ND %; RBC,Pleural Fluid 342 /mm3 (0-0)
[2018-05-22] MEDS: Morphine Sulfate Inj 8 MG/ML Vial IV.PUSH SCH ×8 (02:00→23:18)
[2018-05-22 05:38] LABS: Baso % (Auto) 0.5 % (0.0-2.0); Eos % (Auto) 0.4 % (0.0-4.0); Hematocrit 24.6 % (39.0-51.0); Hemoglobin 8.2 gm/dL (13.0-17.0); Lymph # (Auto) 0.3 th/mm3 (1.0-4.8); Lymph % (Auto) 5.7 % (9.0-44.0); Mean Corpuscular HGB Conc 33.3 % (32.0-36.0); Mean Corpuscular Hemoglobin 25.6 pg (27.0-34.0); Mean Corpuscular Volume 76.8 fL (80.0-100.0); Mean Platelet Volume 7.3 fL (7.0-11.0); Mono # (Auto) 1.1 th/mm3 (0.0-0.9); Mono % (Auto) 25.8 % (0.0-8.0); Neut % (Auto) 67.6 % (16.0-70.0); Platelet Count 276 th/mm3 (150-450); Red Blood Count 3.21 mil/mm3 (4.50-5.90); Red Cell Distribution Width 19.6 % (11.6-17.2); Reticulocyte Percent 2.8 % (0.4-3.0); White Blood Count 4.4 th/mm3 (4.0-11.0)
[2018-05-22 08:04] LABS: Lymphocytes 7 % (9-44); Metamyelocytes 1 % (0-1); Monocytes 15 % (0-8)
[2018-05-22 08:05] LABS: Platelet Estimate Normal (Normal); Platelet Morphology Normal (Normal)
[2018-05-22] MEDS ORDERED: Morphine Inj 4 MG/ML Vial IV.PUSH STA (10:06)
--- NOTE | 2018-05-22 10:17 | ECHRPT ---
Indication: EFFUSION CONCLUSIONS Normal left ventricular size. Wall thickness is normal. The right ventricular systoilc function is mildly decreased. Trace aortic valve regurgitation. There is mild tricuspid valve regurgitation. The estimated pulmonary arterial pressure is 39 mmHg. There is a efowa-yq-ihogehko pericardial effusion present. No hemodynamically significant echocardiographic features for tamponade were observed. A moderate left sided pleural effusion is noted. BP: / HR: 127 Rhythm: MEASUREMENTS (Male / Female) Normal Values Technical Quality: 2D ECHO LV Diastolic Diameter PLAX 4.5 cm 4.2 - 5.9 / 3.9 - 5.3 cm LV Systolic Diameter PLAX 3.5 cm IVS Diastolic Thickness 1.1 cm 0.6 - 1.0 / 0.6 - 0.9 cm LVPW Diastolic Thickness 0.8 cm 0.6 - 1.0 / 0.6 - 0.9 cm LV Relative Wall Thickness 0.4 RV Internal Dim ED PLAX 2.0 cm LA Systolic Diameter LX 3.7 cm 3.0 - 4.0 / 2.7 - 3.8 cm M-MODE AV Cusp Separation MM 2.1 cm DOPPLER Mitral E Point Velocity 75.3 cm/s Mitral A Point Velocity 107.0 cm/s Mitral E to A Ratio 0.7 TR Peak Velocity 271.3 cm/s TR Peak Gradient 29.4 mmHg Right Atrial Pressure 10.0 mmHg Pulmonary Artery Systolic Pressu 39.4 mmHg Right Ventricular Systolic Press 39.4 mmHg FINDINGS LEFT VENTRICLE Normal left ventricular size. Wall thickness is normal. The left ventricular systolic function is normal with an estimated ejection fraction in the range of 60-65%. RIGHT VENTRICLE The right ventricular systoilc function is mildly decreased. LEFT ATRIUM The left atrial size is normal. RIGHT ATRIUM The right atrial size is normal. ATRIAL SEPTUM Normal atrial septal thickness without atrial level shunting by limited color doppler interrogation. AORTA The aortic root and proximal ascending aorta are normal in size on limited imaging. MITRAL VALVE Structurally normal mitral valve. No mitral valve stenosis or regurgitation. AORTIC VALVE Trace aortic valve regurgitation. TRICUSPID VALVE There is mild tricuspid valve regurgitation. The estimated pulmonary arterial pressure is 39 mmHg. PULMONARY VALVE No pulmonary valve regurgitation or stenosis. VESSELS The inferior vena cava is normal in size. PERICARDIUM There is a huhhv-dn-apnpvvca pericardial effusion present. No hemodynamically significant echocardiographic features for tamponade were observed. A moderate left sided pleural effusion is noted. Nathan Vegas MD, FACC (Electronically Signed) Final Date:22 May 2018 10:16
--- NOTE | 2018-05-22 10:24 | P.PNONC ---
Subjective Interval history: T-max 101 F. Patient sitting upright in bed, in no acute distress. Reports "I cannot get comfortable". Pain to back and thoracic area. Patient tearful at times. Objective Vital Signs/Intake & Output: Vital Signs 05/21/18 14:00 05/21/18 15:11 05/21/18 16:22 Temperature 99.5 F 101.0 F H Pulse Rate 121 H 115 H 125 H Respiratory Rate 18 18 24 Blood Pressure 127/85 135/77 Pulse Oximetry 91 L 93 L 05/21/18 19:53 05/21/18 19:57 05/21/18 20:54 Temperature 99.7 F H Pulse Rate 129 H 124 H Respiratory Rate 18 23 25 H Blood Pressure 116/76 Pulse Oximetry 94 L 05/21/18 22:59 05/21/18 23:01 05/22/18 00:29 Temperature 100.1 F H 99.5 F Pulse Rate 129 H 124 H Respiratory Rate 18 21 18 Blood Pressure 119/81 105/72 Pulse Oximetry 93 L 93 L 05/22/18 00:46 05/22/18 02:06 05/22/18 04:10 Temperature 99 F 98.8 F Pulse Rate 117 H 113 H Respiratory Rate 20 18 18 Blood Pressure 112/72 119/83 Pulse Oximetry 94 L 91 L 05/22/18 05:14 05/22/18 06:30 05/22/18 08:00 Temperature 98 F Pulse Rate 124 H 119 H Respiratory Rate 18 30 H 20 Blood Pressure 109/77 Pulse Oximetry 93 L 05/22/18 09:32 Temperature Pulse Rate Respiratory Rate Blood Pressure Pulse Oximetry 94 L Intake & Output 05/21/18 05/22/18 05/22/18 18:59 06:59 18:59 Intake Total 950 / 950 Balance 950 / 950 Weight 78.5 kg 78.2 kg Intake: Oral 550 / 550 Intake (Blood Product) Amt 400 / 400 Rbc As-3 Leukoreduced Irrad 400 / 400 Unit [id number] Other: # Voids 2 4 Weight On Admission 78.5 kg Result Diagrams: 05/22/18 05:00 05/21/18 09:55 Laboratory Results: Laboratory Results - last 24 hr 05/21/18 05/21/18 05/21/18 09:55 09:55 09:55 WBC 4.7 RBC 3.11 L Hgb 7.9 L Hct 23.7 L MCV 76.1 L MCH 25.3 L MCHC 33.2 RDW 20.1 H Plt Count 299 D MPV 7.4 Prelim Diff (Auto) Neut % (Auto) 80.9 H Lymph % (Auto) 2.3 L Harmon % (Auto) 16.3 H Eos % (Auto) 0.3 Baso % (Auto) 0.2 Neut # (Auto) 3.8 Lymph # (Auto) 0.1 L Harmon # (Auto) 0.8 Eos # (Auto) 0.0 Baso # (Auto) 0.0 WBC Differential . Seg Neuts % (Manual) Band Neuts % (Manual) Lymphocytes % (Manual) Monocytes % (Manual) Metamyelocytes % (Man) Abs Neuts (Manual) Differential Comment Auto diff final Platelet Estimate Platelet Morphology Keratocytes Retic Count 3.2 H Absolute Retic 98.5 PT 12.3 H INR 1.2 APTT 36.2 H Sodium 138 Potassium 3.7 Chloride 99 Carbon Dioxide 30.1 Anion Gap 9 BUN 8 Creatinine 1.00 Estimated GFR 82 L Random Glucose 154 H Calcium 9.2 Total Bilirubin 0.4 AST 33 ALT 28 Alkaline Phosphatase 113 Lactate Dehydrogenase 772 H Total Protein 7.6 Albumin 2.3 L Pleural RBC Pleural Nuc Cells Pleural Neutrophils Pleural Fluid Comment Blood Type Antibody Screen MTS Gel Crossmatch 05/21/18 05/21/18 05/22/18 10:45 21:03 05:00 WBC 4.4 RBC 3.21 L Hgb 8.2 L Hct 24.6 L MCV 76.8 L MCH 25.6 L MCHC 33.3 RDW 19.6 H Plt Count 276 MPV 7.3 Prelim Diff (Auto) Slide review pending Neut % (Auto) 67.6 Lymph % (Auto) 5.7 L Harmon % (Auto) 25.8 H Eos % (Auto) 0.4 Baso % (Auto) 0.5 Neut # (Auto) 3.0 Lymph # (Auto) 0.3 L Harmon # (Auto) 1.1 H Eos # (Auto) 0.0 Baso # (Auto) 0.0 WBC Differential Manual diff final Seg Neuts % (Manual) 75 H Band Neuts % (Manual) 2 Lymphocytes % (Manual) 7 L Monocytes % (Manual) 15 H Metamyelocytes % (Man) 1 Abs Neuts (Manual) 3.4 Differential Comment . Platelet Estimate Normal Platelet Morphology Normal Keratocytes Occ H Retic Count 2.8 Absolute Retic 88.3 PT INR APTT Sodium Potassium Chloride Carbon Dioxide Anion Gap BUN Creatinine Estimated GFR Random Glucose Calcium Total Bilirubin AST ALT Alkaline Phosphatase Lactate Dehydrogenase Total Protein Albumin Pleural RBC 342 H Pleural Nuc Cells 32 H Pleural Neutrophils ND Pleural Fluid Comment Blood Type A Positive Antibody Screen Negative MTS Gel Crossmatch See Detail Imaging Studies: Impressions Chest X-Ray 05/21/18 12:04 CONCLUSION: Worsening right hemithorax opacification completely opacified at this time probably due to worsening airspace consolidation and/or underlying pleural effusion. Medications: Active Medications Generic Name Dose Route Start Last Admin Trade Name Freq PRN Reason Stop Dose Admin Acetaminophen 650 mg 05/21/18 08:52 05/21/18 23:05 Tylenol PO 650 mg Q4H PRN Administration PAIN SCALE 0-3 OR TEMP> 100.5F Albuterol 1 ampul 05/21/18 14:11 05/22/18 06:28 Duoneb Neb (Prn) NEB 1 ampul Q2HR NEB PRN Administration shortness of breath or wheezin Enoxaparin Sodium 40 mg 05/21/18 09:00 05/21/18 09:28 Lovenox Inj SQ 40 mg Q24H BANDAR Administration Lorazepam 0.5 mg 05/21/18 08:52 05/21/18 14:37 Ativan PO 0.5 mg DAILY PRN Administration ANXIETY Morphine Sulfate 5 mg 05/21/18 11:00 05/22/18 07:58 Morphine Inj IV.PUSH 5 mg Q3HR BANDAR Administration Oxycodone HCl 10 mg 05/21/18 08:52 05/21/18 10:00 Roxicodone PO 10 mg Q3H PRN Administration BREAKTHROUGH PAIN Sodium Chloride 0 ml 05/21/18 09:00 05/21/18 16:46 Ns Flush IV.FLUSH 2 ml DAILY BANDAR Administration Objective Remarks: GENERAL: Chronically ill-appearing male patient, in no acute distress. SKIN: Pale, warm and dry. HEAD: Normocephalic. EYES: No scleral icterus. No injection or drainage. NECK: Supple, trachea midline. CARDIOVASCULAR: + Tachycardic. RESPIRATORY: Left breath sounds harsh with scattered rhonchi. Right breath sounds diminished. Nonlabored at rest. GASTROINTESTINAL: Abdomen soft, non-tender, nondistended. EXTREMITIES: No cyanosis, or edema. MUSCULOSKELETAL: Adequate muscle tone. NEUROLOGICAL: No obvious focal deficit. Awake, alert, and oriented x3. PSYCHIATRIC: Flat affect, tearful at times. Assessment/Plan - Plan Mr. Turner is a 43-year-old man with a history of T-cell lymphoma. He is admitted directly for the next cycle of ICE chemotherapy. His last cycle of chemotherapy was complicated by a neutropenic fever. Patient and reported fever since New Year's Mari. Infectious workup will be performed prior to the patient receiving his next cycle of ice chemotherapy. Plan: 1. T-cell lymphoma, admitted for next cycle of ice chemotherapy. Chemotherapy on hold while infectious workup is rendered. 2. Fevers, T-max 101 F. Blood cultures are pending. Pleural fluid from Pleurx drain was sent for culture. Will check urinalysis. Chest x-ray revealed worsening right hemithorax opacification completely opacified at this time probably due to worsening airspace consolidation and/or underlying pleural effusion. Infectious disease was consulted and following. 3. Shortness of breath, chest x-ray with the above findings. Dr. Leigh discussed Pleurx catheter with Dr. Rendon, IR will attempt procedure to get PleurX catheter draining. 4. Tachycardia, concerning for worsening pericardial effusion or PE. Echocardiogram ordered. Cardiothoracic was consulted, as patient is known to them, with history of pleurodesis. 5. Anxiety, patient appears anxious and emotional at times. Tearful during conversation. 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 He may benefit from psychiatric consult after acute condition is controlled. - Attending Statement The exam, history, and the medical decision-making described in the above note were completed with the assistance of the mid-level provider. I reviewed and agree with the findings presented. I attest that I had a joev-hz-[id number] encounter with the patient on the same day, and personally performed and documented my assessment and findings in the medical record. Observed last 36 hours. No fever source identified. Cultures are negative so far. Anticipate initiating next cycle of chemotherapy tomorrow. Concur with infectious disease. Fevers may be related to his lymphoma. Nevertheless in light of his history neutropenic fever and gram-positive bacteremia needed to rule out infectious etiology. Follow-up blood cultures after completion of his antibiotic therapy was negative. We discussed his Pleurx catheter. Reviewed options with Dr. Rendon interventional radiologist. Attempt to TPA the catheter. However if no output is obtained we will request interventional radiology to remove the catheter prior to starting his chemotherapy tomorrow. Noted the tachycardia. Reviewed the echo, no tamponade is seen. There is some mild increased pulmonary pressures. Discussed his pain. Requesting his pain medication dose to be optimized. Risk and benefit of morphine was discussed at length and from the patient and his . We reviewed the indication to control his back pain, pain in general. Morphine dose is optimized to 8 mg every 3 hours. Stool softener prescribed.
[2018-05-22] MEDS ORDERED: Sodium Chlor 0.9% Inj 500 ML IV.SIG SCH (10:30)
--- NOTE | 2018-05-22 11:01 | P.PNCV ---
- Note Subjective/Hospital Course: 43-year-old male known to our service, who recently underwent right video- assisted thoracoscopy, decortication, placement of a PleurX catheter on 2017; history of T-cell lymphoblastic lymphoma; readmitted to continue with chemo because a relapse of the lymphoma also with neutropenic fever for the past 2-3 days with temperatures spiking to 102, white cell count is 4.7. Denied having any cough, sputum production. He states that the PleurX catheter has not been draining at all for the past few days. The nurse was able to obtain some drainage, about 15 mL and was able to send fluid cultures. We were consulted to evaluate patency of the PleurX catheter. MEDICAL HEALTH HISTORY: Includes a T-cell lymphoblastic lymphoma, history of intervertebral disk compression, history of left upper extremity DVT, malignant pleural effusions. 1/3 pt to return to IR today to eval for flushing of pleurx cath, or placement clot buster pt also tachycardic / 2d echo pending / r/o pericardial effusion very anxious and painful Objective: Vital Signs - 24 hr 05/21/18 14:00 05/21/18 15:11 05/21/18 16:22 Temperature 99.5 F 101.0 F H Pulse Rate 121 H 115 H 125 H Respiratory Rate 18 18 24 Blood Pressure 127/85 135/77 Pulse Oximetry 91 L 93 L 05/21/18 19:53 05/21/18 19:57 05/21/18 20:54 Temperature 99.7 F H Pulse Rate 129 H 124 H Respiratory Rate 18 23 25 H Blood Pressure 116/76 Pulse Oximetry 94 L 05/21/18 22:59 05/21/18 23:01 05/22/18 00:29 Temperature 100.1 F H 99.5 F Pulse Rate 129 H 124 H Respiratory Rate 18 21 18 Blood Pressure 119/81 105/72 Pulse Oximetry 93 L 93 L 05/22/18 00:46 05/22/18 02:06 05/22/18 04:10 Temperature 99 F 98.8 F Pulse Rate 117 H 113 H Respiratory Rate 20 18 18 Blood Pressure 112/72 119/83 Pulse Oximetry 94 L 91 L 05/22/18 05:14 05/22/18 06:30 05/22/18 08:00 Temperature 98 F Pulse Rate 124 H 119 H Respiratory Rate 18 30 H 20 Blood Pressure 109/77 Pulse Oximetry 93 L 05/22/18 09:32 Temperature Pulse Rate Respiratory Rate Blood Pressure Pulse Oximetry 94 L GENERAL: A&O x 3 SKIN: Warm and dry. pleurx cath n place tight anterior chest wall, HEAD: Normocephalic. EYES: No scleral icterus. No injection or drainage. NECK: Supple, trachea midline. No JVD or lymphadenopathy. CARDIOVASCULAR: tachycardic Regular rhythm without murmurs, gallops, or rubs. RESPIRATORY: very diminished right lung field , minimal air exchange . No accessory muscle use. GASTROINTESTINAL: Abdomen soft, non-tender, nondistended. MUSCULOSKELETAL: No cyanosis, or edema. BACK: Nontender without obvious deformity. No CVA tenderness. Labs: Laboratory Results - last 12 hr 05/21/18 05/22/18 21:03 05:00 WBC 4.4 RBC 3.21 L Hgb 8.2 L Hct 24.6 L MCV 76.8 L MCH 25.6 L MCHC 33.3 RDW 19.6 H Plt Count 276 MPV 7.3 Prelim Diff (Auto) Slide review pending Neut % (Auto) 67.6 Lymph % (Auto) 5.7 L [place] % (Auto) 25.8 H Eos % (Auto) 0.4 Baso % (Auto) 0.5 Neut # (Auto) 3.0 Lymph # (Auto) 0.3 L [place] # (Auto) 1.1 H Eos # (Auto) 0.0 Baso # (Auto) 0.0 WBC Differential Manual diff final Seg Neuts % (Manual) 75 H Band Neuts % (Manual) 2 Lymphocytes % (Manual) 7 L Monocytes % (Manual) 15 H Metamyelocytes % (Man) 1 Abs Neuts (Manual) 3.4 Differential Comment . Platelet Estimate Normal Platelet Morphology Normal Keratocytes Occ H Retic Count 2.8 Absolute Retic 88.3 Blood Type A Positive Antibody Screen Negative MTS Gel Crossmatch See Detail Result Diagrams: 05/22/18 05:00 05/21/18 09:55 - Plan (1) Pleural effusion Plan: IR to facilitate improved drainage of pleurx cath f/u echo r/o pericardial effusion
--- NOTE | 2018-05-22 12:43 | P.PNID ---
Subjective Remarks: Patient is awake and alert. He has no new complaints. He feels well. The temperature is improved. He is currently afebrile. No fever since last night. Denies shortness of breath, chest pain, chills. Culture has no growth. Pleural culture pending. 43-year-old white male who has T-cell lymphoblastic lymphoma. The patient was readmitted to continue with chemotherapy because of relapse of the lymphoma. He was noted to have fever over The days before admission. He mentioned having sweats and also his temperature spiked to 102. He has been taking Tylenol before admission. Past Medical History: T-cell lymphoblastic lymphoma. Central permacath line placed in February 2018. History of intervertebral disk compression. Left upper extremity DVT. Superior vena cava syndrome, malignant pleural effusion. Allergies/Adverse Reactions: Allergies adhesive tape Adverse Reaction (Verified 04/12/18 03:58) Blister Objective Vital Signs 05/21/18 14:00 05/21/18 15:11 05/21/18 16:22 Temperature 99.5 F 101.0 F H Pulse Rate 121 H 115 H 125 H Respiratory Rate 18 18 24 Blood Pressure 127/85 135/77 Pulse Oximetry 91 L 93 L 05/21/18 19:53 05/21/18 19:57 05/21/18 20:54 Temperature 99.7 F H Pulse Rate 129 H 124 H Respiratory Rate 18 23 25 H Blood Pressure 116/76 Pulse Oximetry 94 L 05/21/18 22:59 05/21/18 23:01 05/22/18 00:29 Temperature 100.1 F H 99.5 F Pulse Rate 129 H 124 H Respiratory Rate 18 21 18 Blood Pressure 119/81 105/72 Pulse Oximetry 93 L 93 L 05/22/18 00:46 05/22/18 02:06 05/22/18 04:10 Temperature 99 F 98.8 F Pulse Rate 117 H 113 H Respiratory Rate 20 18 18 Blood Pressure 112/72 119/83 Pulse Oximetry 94 L 91 L 05/22/18 05:14 05/22/18 06:30 05/22/18 08:00 Temperature 98 F Pulse Rate 124 H 119 H Respiratory Rate 18 30 H 20 Blood Pressure 109/77 Pulse Oximetry 93 L 05/22/18 09:32 05/22/18 12:00 05/22/18 12:20 Temperature 98.7 F Pulse Rate 114 H 117 H Respiratory Rate 18 20 Blood Pressure 109/80 Pulse Oximetry 94 L 94 L 05/22/18 12:28 Temperature Pulse Rate Respiratory Rate 18 Blood Pressure Pulse Oximetry Intake & Output 05/21/18 05/22/18 05/22/18 18:59 06:59 18:59 Intake Total 950 / 950 Balance 950 / 950 Weight 78.5 kg 78.2 kg Intake: Oral 550 / 550 Intake (Blood Product) Amt 400 / 400 Rbc As-3 Leukoreduced Irrad 400 / 400 Unit [id number] Other: # Voids 2 4 Weight On Admission 78.5 kg 05/21/18 10:45 Fluid - Pleural fluid Gram Stain - Final 05/21/18 10:45 Fluid - Pleural fluid Body Fluid Culture - Pending 05/21/18 09:55 Blood - Line Aerobic Blood Culture - Preliminary No growth in 1 day 05/21/18 09:55 Blood - Line Anaerobic Blood Culture - Preliminary No growth in 1 day 05/21/18 10:09 Blood - Line Aerobic Blood Culture - Preliminary No growth in 1 day 05/21/18 10:09 Blood - Line Anaerobic Blood Culture - Preliminary No growth in 1 day Lab - Hematology Results 05/21/18 05/22/18 09:55 05:00 WBC 4.7 4.4 RBC 3.11 L 3.21 L Hgb 7.9 L 8.2 L Hct 23.7 L 24.6 L MCV 76.1 L 76.8 L MCH 25.3 L 25.6 L MCHC 33.2 33.3 RDW 20.1 H 19.6 H Plt Count 299 D 276 MPV 7.4 7.3 Prelim Diff (Auto) Slide review pending Neut % (Auto) 80.9 H 67.6 Lymph % (Auto) 2.3 L 5.7 L [place] % (Auto) 16.3 H 25.8 H Eos % (Auto) 0.3 0.4 Baso % (Auto) 0.2 0.5 Neut # (Auto) 3.8 3.0 Lymph # (Auto) 0.1 L 0.3 L [place] # (Auto) 0.8 1.1 H Eos # (Auto) 0.0 0.0 Baso # (Auto) 0.0 0.0 WBC Differential . Manual diff final Seg Neuts % (Manual) 75 H Band Neuts % (Manual) 2 Lymphocytes % (Manual) 7 L Monocytes % (Manual) 15 H Metamyelocytes % (Man) 1 Abs Neuts (Manual) 3.4 Differential Comment Auto diff final . Platelet Estimate Normal Platelet Morphology Normal Keratocytes Occ H Retic Count 3.2 H 2.8 Absolute Retic 98.5 88.3 Lab - Chemistry Results 05/21/18 09:55 Sodium 138 Potassium 3.7 Chloride 99 Carbon Dioxide 30.1 Anion Gap 9 BUN 8 Creatinine 1.00 Estimated GFR 82 L Random Glucose 154 H Calcium 9.2 Total Bilirubin 0.4 AST 33 ALT 28 Alkaline Phosphatase 113 Lactate Dehydrogenase 772 H Total Protein 7.6 Albumin 2.3 L Imaging: ITS Impressions Chest X-Ray 05/21/18 12:04 CONCLUSION: Worsening right hemithorax opacification completely opacified at this time probably due to worsening airspace consolidation and/or underlying pleural effusion. Physical Exam: GENERAL: Patient is in no acute distress. HEENT: The head is atraumatic. Extraocular movements are grossly intact. Pupils reactive to light. No icterus. Oropharynx: Moist mucosa. NECK: Supple without adenopathy. LUNGS: Decreased breath sounds at the right lung field, upper and lower. Left lung is clear. HEART: Regular S1 and S2 without murmurs, rubs or gallops. ABDOMEN: Bowel sounds diminished. Soft, nontender. EXTREMITIES: No clubbing, cyanosis or edema. SKIN: No rash. PSYCHIATRIC: The patient is calm and cooperative. His affect appears flat. Assessment and Plan - Plan IMPRESSION: Fever in patient with T-cell lymphoblastic lymphoma. The patient admitted for chemotherapy, which is placed on hold because of the fever. He does not appear toxic. Malignant pleural effusion. RECOMMENDATIONS: It is not clear whether the patient has infection as the cause of the fever. The temperature appears to be improved. However, continue to monitor cultures. Blood culture and pleural fluid culture is pending. Monitor for signs which may indicate a source of the fever. It is also possible that the fever may be related to the underlying lymphoma. Okay to hold off on antibiotics for now.
[2018-05-22] MEDS ORDERED: Cathflo Activase Inj 2 MG Vial I-PLEURAL ONE (13:04)
--- NOTE | 2018-05-22 16:14 | IR ---
EXAM DATE: 05/22/2018 1:38 PM EST AGE/SEX: 43 years / Male INDICATIONS: Patient presents with malfunctioning PleurX Catheter in need of evaluation with possibl e TPA injection. CLINICAL DATA: This is the patient's initial encounter. Patient reports that signs and symptoms have been present for 2 days and indicates a pain score of 10/10. MEDICAL/SURGICAL HISTORY: Asthma. T-cell lymphoma, Malignant pleural effusion, Pericardial effu jovan, PleurX catheter-associate pain, Upper extremity deep vein thrombosis associated with superior v socorro cava syndrome. . Mediastinal mass biopsy, Thoracentesis, pleurodesis, Port placement, Port remov al, Perm-A-Cath triple lumen placement, Thrombolysis, Thorascopic procedure, PleurX catheter placemen t. COMPARISON: [facility], CHEST 2V PA&LAT, 05/21/2018. . IMAGE SERIES: . . PROCEDURE: 1. TPA infusion through existing tunneled chest tube The risks, benefits, and alternatives to paracentesis were explained to the patient in detail, lay te dennis including the risk of bleeding and infection. Oral and written informed consent was obtained. The site was prepped in sterile fashion. Full sterile technique was used, including cap, mask, steri le gloves and gown and a large sterile sheet. Hand hygiene and 2% chlorhexidine and/or betadine/alco hol prep was utilized per protocol for cutaneous antisepsis. The skin and subcutaneous tissues were infiltrated with local anesthetic solution. Existing Pleurx chest tube was cut externally and exchanged for an Aspira catheter connection. Multip le aspiration and injection attempts with 10 cc syringe did demonstrate some initial resistance to in jection but despite clearance no significant fluid could be aspirated. Therefore, proceeded with infu jovan of TPA for attempted fibrinolysis. A 50 mL solution containing 6 mg TPA was slowly injected thro ugh the catheter and the catheter will be clamped for the next 4 hours. The prescribed dose of Talc with Lidocaine was instilled through the previously placed chest tube an d the chest tube was clamped. The patient was rotated into the anterior, posterior, right lateral an d left lateral at 30 minute increments for a total of 2 hours. Upon completion of this the chest tub e was unclamped and again placed to Pleur-evac suction. CONCLUSION: 1. Uncomplicated attempted TPA fibrinolysis through existing tunneled chest tube, as above. Electronically signed by: Ash Stover MD Board Certified Radiologist 05/22/2018 4:12 PM EST
[2018-05-22 21:59] LABS: Bacteria,Urine Many /hpf; Clarity,Urine Turbid (Clear); Color,Urine Amber (Yellw/Straw); Glucose,Urine (UA) Negative (Negative); Leukocyte Esterase,Urine Negative (Negative); Mucus,Urine Many /lpf (Occasional); Nitrite,Urine Negative (Negative); Specific Gravity,Urine 1.023 (1.002-1.035); Squamous Epithelial Cell,Urine 1 /hpf (0-5)
[2018-05-22 22:18] LABS: Bilirubin,Urine Negative (Negative); Ictotest,Urine Negative (Negative)
[2018-05-22] MEDS: Acetaminophen 325 MG Tablet PO PRN (23:18)
[2018-05-23] MEDS: Morphine Sulfate Inj 8 MG/ML Vial IV.PUSH SCH ×8 (02:08→23:15)
[2018-05-23 06:11] LABS: Alanine Aminotransferase 21 U/L (12-78); Albumin 2.3 g/dL (3.4-5.0); Anion Gap 8 meq/L (5-15); Aspartate Aminotransferase 34 U/L (15-37); Baso % (Auto) 0.5 % (0.0-2.0); Blood Urea Nitrogen 8 mg/dL (7-18); Calcium 9.3 mg/dL (8.5-10.1); Carbon Dioxide 29.8 meq/L (21.0-32.0); Chloride 99 meq/L (98-107); Eos % (Auto) 0.3 % (0.0-4.0); Glomerular Filtration Rate Greater Than 89 mL/min (>89); Glucose,Random 89 mg/dL (74-106); Hematocrit 25.4 % (39.0-51.0); Hemoglobin 8.4 gm/dL (13.0-17.0); Lactate Dehydrogenase 982 U/L (87-241); Lymph # (Auto) 0.2 th/mm3 (1.0-4.8); Lymph % (Auto) 5.4 % (9.0-44.0); Mean Corpuscular HGB Conc 33.2 % (32.0-36.0); Mean Corpuscular Hemoglobin 25.5 pg (27.0-34.0); Mean Corpuscular Volume 76.7 fL (80.0-100.0); Mean Platelet Volume 7.4 fL (7.0-11.0); Mono % (Auto) 24.6 % (0.0-8.0); Neut # (Auto) 2.8 th/mm3 (1.8-7.7); Neut % (Auto) 69.2 % (16.0-70.0); Platelet Count 297 th/mm3 (150-450); Potassium 3.8 meq/L (3.5-5.1); Red Blood Count 3.31 mil/mm3 (4.50-5.90); Red Cell Distribution Width 19.5 % (11.6-17.2); Reticulocyte Percent 2.5 % (0.4-3.0); Sodium 137 meq/L (136-145)
[2018-05-23 06:13] LABS: Alkaline Phosphatase 97 U/L (45-117); Haptoglobin 522 mg/dL (30-200); Total Protein 7.5 g/dL (6.4-8.2)
[2018-05-23 07:37] LABS: Dimorphic RBC Present; Lymphocytes 9 % (9-44); Monocytes 17 % (0-8); Myelocytes 1 % (0-0); Ovalocytes 1+; Platelet Estimate Normal (Normal); Platelet Morphology Normal (Normal)
[2018-05-23] MEDS: LORazepam 0.5 MG Tablet PO PRN (08:23)
[2018-05-23] MEDS ORDERED: Lidocaine 1%/Epinephrine 1:100,000 Inj 20 ML Vial ONE (08:34)
--- NOTE | 2018-05-23 10:26 | XR ---
EXAM DATE: 05/23/2018 10:12 AM EST AGE/SEX: 43 years / Male INDICATIONS: Pleural catheter removal, right. CLINICAL DATA: This is the patient's initial encounter. Patient reports that signs and symptoms have been present for 1 day and indicates a pain score of 3/10. MEDICAL/SURGICAL HISTORY: Lymphoma. . Chest tube. COMPARISON: [facility], XR CHEST UPRIGHT, SINGLE VIEW, 10/07/2017. [facility], CHEST 2V PA&LAT, 05/21/2018. . FINDINGS: The right hemithorax is completely opacified not significantly changed since 05/21/2018. FINDINGS: Right IJ [id number] CONCLUSION: No appreciable change. Electronically signed by: Beto Banks MD Board Certified Radiologist 05/23/2018 10:24 AM EST
[2018-05-23] MEDS: Enoxaparin Inj 40 MG/0.4 ML Syringe SQ SCH (11:25)
[2018-05-23] MEDS: Senna/Docusate Sodium 8.6/50 MG Tablet PO SCH ×2 (11:27→20:03)
--- NOTE | 2018-05-23 13:53 | IR ---
EXAM DATE: 05/23/2018 10:12 AM EST AGE/SEX: 43 years / Male INDICATIONS: Patient presents with right side clogged PleurX drainage catheter in need of catheter r emoval. CLINICAL DATA: This is the patient's subsequent encounter. Patient reports that signs and symptoms h ave been present for 3 days and indicates a pain score of 6/10. MEDICAL/SURGICAL HISTORY: Asthma. T-cell lymphoma, Malignant pleural effusion, Pericardial effu jovan, Upper extremity deep vein thrombosis associated vena cava syndrome. . Mediastinal mass biops y, Thoracentesis, Pleurodesis, Port placement, port removal, Perm-A-Cath triple lumen catheter placem ent, Thrombolysis for left upper extremity deep venous thrombosis, Thorascopic procedure, PleurX cath eter placement. COMPARISON: [facility], CHEST 2V PA&LAT, 05/21/2018. . IMAGE SERIES: RADIATION DOSE: ACCESS SITE: DEVICE(S): . . PROCEDURE : 1. Removal of tunneled Aspira chest tube. The risks, benefits and alternatives to the procedure were explained and verbal and written consent w as obtained. The site was prepped in sterile fashion. Full sterile technique was used, including ca p, mask, sterile gloves and gown and a large sterile sheet. Hand hygiene and 2% chlorhexidine prep w as utilized per protocol for cutaneous antisepsis with appropriate dry time for site. The skin and s ubcutaneous tissues were infiltrated with local anesthetic solution. Existing catheter cuff was bluntly dissected away and the catheter was removed from the tract. Conscious sedation was performed with the prescribed dosages and duration as above in the presence of an independent trained radiology nurse to assist in the monitoring of the patient. EKG and oximetry remained stable throughout the procedure. CONCLUSION: 1. Uncomplicated removal of tunneled right sided chest tube. Electronically signed by: Ash Stover MD Board Certified Radiologist 05/23/2018 1:52 PM EST
[2018-05-23] MEDS ORDERED: Etoposide Inj 200 MG in Sodium Chlor 0.9% Inj 500 ML IV.SIG SCH ×4 (14:00)
[2018-05-23] MEDS ORDERED: Methylene Blue Inj 100 MG/10 ML Vial IV.PUSH PRN (14:00)
--- NOTE | 2018-05-23 14:39 | P.PNCV ---
- Note Subjective/Hospital Course: 43-year-old male known to our service, who recently underwent right video- assisted thoracoscopy, decortication, placement of a PleurX catheter on 2017; history of T-cell lymphoblastic lymphoma; readmitted to continue with chemo because a relapse of the lymphoma also with neutropenic fever for the past 2-3 days with temperatures spiking to 102, white cell count is 4.7. Denied having any cough, sputum production. He states that the PleurX catheter has not been draining at all for the past few days. The nurse was able to obtain some drainage, about 15 mL and was able to send fluid cultures. We were consulted to evaluate patency of the PleurX catheter. MEDICAL HEALTH HISTORY: Includes a T-cell lymphoblastic lymphoma, history of intervertebral disk compression, history of left upper extremity DVT, malignant pleural effusions. 1/3 pt to return to IR today to eval for flushing of pleurx cath, or placement clot buster pt also tachycardic / 2d echo pending / r/o pericardial effusion very anxious and painful 1/ s/p IR eval / pleurx cath removed had large amount of drainage at site post removal per pt now has dry dressing in place IR to re-eval replacement of cath on Saturday will see pt prn Objective: Vital Signs - 24 hr 05/22/18 14:50 05/22/18 16:00 05/22/18 18:31 Temperature 99.3 F Pulse Rate 120 H 113 H Respiratory Rate 18 20 18 Blood Pressure 115/62 Pulse Oximetry 93 L 05/22/18 20:00 05/22/18 23:13 05/22/18 23:15 Temperature 100.5 F H Pulse Rate 114 H 126 H 125 H Respiratory Rate 18 20 22 Blood Pressure 114/77 120/78 Pulse Oximetry 94 L 94 L 93 L 05/23/18 00:00 05/23/18 02:25 05/23/18 04:00 Temperature 99.2 F Pulse Rate 120 H 102 H 114 H Respiratory Rate 20 18 Blood Pressure 118/82 Pulse Oximetry 95 05/23/18 04:02 05/23/18 07:35 05/23/18 08:00 Temperature 99.3 F Pulse Rate 108 H 123 H 130 H Respiratory Rate 17 18 Blood Pressure 114/83 Pulse Oximetry 92 L 94 L 05/23/18 12:00 05/23/18 13:17 Temperature 98.9 F Pulse Rate 129 H 131 H Respiratory Rate 18 18 Blood Pressure 106/89 Pulse Oximetry 97 GENERAL: A&O x 3 SKIN: Warm and dry. dressing to prior pleurx cath site auditor: Normocephalic. EYES: No scleral icterus. No injection or drainage. NECK: Supple, trachea midline. No JVD or lymphadenopathy. CARDIOVASCULAR: Regular rate and rhythm without murmurs, gallops, or rubs. RESPIRATORY: improved breath sounds to right lung field No accessory muscle use. GASTROINTESTINAL: Abdomen soft, non-tender, nondistended. MUSCULOSKELETAL: No cyanosis, or edema. BACK: Nontender without obvious deformity. No CVA tenderness. Labs: Laboratory Results - last 12 hr 05/23/18 05/23/18 05/23/18 05:10 05:10 05:10 WBC 4.0 RBC 3.31 L Hgb 8.4 L Hct 25.4 L MCV 76.7 L MCH 25.5 L MCHC 33.2 RDW 19.5 H Plt Count 297 MPV 7.4 Prelim Diff (Auto) Slide review pending Neut % (Auto) 69.2 Lymph % (Auto) 5.4 L [place] % (Auto) 24.6 H Eos % (Auto) 0.3 Baso % (Auto) 0.5 Neut # (Auto) 2.8 Lymph # (Auto) 0.2 L [place] # (Auto) 1.0 H Eos # (Auto) 0.0 Baso # (Auto) 0.0 WBC Differential Manual diff final Seg Neuts % (Manual) 73 H Lymphocytes % (Manual) 9 Monocytes % (Manual) 17 H Myelocytes % (Man) 1 H Abs Neuts (Manual) 3.0 Differential Comment . Platelet Estimate Normal Platelet Morphology Normal Dimorphic RBCs Present H Ovalocytes 1+ H Retic Count 2.5 Absolute Retic 83.4 Haptoglobin 522 H Sodium 137 Potassium 3.8 Chloride 99 Carbon Dioxide 29.8 Anion Gap 8 BUN 8 Creatinine 0.73 Estimated GFR Greater than 89 Random Glucose 89 Calcium 9.3 Total Bilirubin 0.6 AST 34 ALT 21 Alkaline Phosphatase 97 Lactate Dehydrogenase 982 H Total Protein 7.5 Albumin 2.3 L Direct Antiglob Test Negative Result Diagrams: 05/23/18 05:10 05/23/18 05:10 - Plan (1) Pleural effusion Plan: IR to re-eval replace of Aspira cath on Saturday will se prn f/u echo r/o pericardial effusion
[2018-05-23] MEDS ORDERED: Granisetron 1 MG/ML Vial IV.PUSH ONE (14:45)
[2018-05-23] MEDS: Acetaminophen 325 MG Tablet PO PRN (16:50)
--- NOTE | 2018-05-23 17:54 | P.PNID ---
Subjective Remarks: Patient is currently sleepy. He has received chemotherapy. Afebrile. Cultures as no growth. 43-year-old white male who has T-cell lymphoblastic lymphoma. The patient was readmitted to continue with chemotherapy because of relapse of the lymphoma. He was noted to have fever over The days before admission. He mentioned having sweats and also his temperature spiked to 102. He has been taking Tylenol before admission. Past Medical History: T-cell lymphoblastic lymphoma. Central permacath line placed in February 2018. History of intervertebral disk compression. Left upper extremity DVT. Superior vena cava syndrome, malignant pleural effusion. Allergies/Adverse Reactions: Allergies adhesive tape Adverse Reaction (Verified 04/12/18 03:58) Blister Objective Vital Signs 05/22/18 18:31 05/22/18 20:00 05/22/18 23:13 Temperature Pulse Rate 113 H 114 H 126 H Respiratory Rate 18 18 20 Blood Pressure 114/77 Pulse Oximetry 94 L 94 L 05/22/18 23:15 05/23/18 00:00 05/23/18 02:25 Temperature 100.5 F H Pulse Rate 125 H 120 H 102 H Respiratory Rate 22 20 Blood Pressure 120/78 Pulse Oximetry 93 L 05/23/18 04:00 05/23/18 04:02 05/23/18 07:35 Temperature 99.2 F Pulse Rate 114 H 108 H 123 H Respiratory Rate 18 17 Blood Pressure 118/82 Pulse Oximetry 95 92 L 05/23/18 08:00 05/23/18 12:00 05/23/18 13:17 Temperature 99.3 F 98.9 F Pulse Rate 134 H 128 H 131 H Respiratory Rate 18 18 18 Blood Pressure 114/83 106/89 Pulse Oximetry 94 L 97 05/23/18 15:27 05/23/18 16:00 Temperature 99.5 F Pulse Rate 122 H Respiratory Rate 18 18 Blood Pressure 118/73 Pulse Oximetry 93 L Intake & Output 05/22/18 05/23/18 05/23/18 18:59 06:59 18:59 Intake Total 600 / 600 510 / 510 Output Total 300 / 300 Balance 300 / 300 510 / 510 Weight 80.7 kg Intake: IV 510 / 510 Vepesid Inj 200 MG In NS Inj 510 / 510 500 ML @ 510 mls/hr IV.SIG Q24H BANDAR Rx#:[id number] Oral 600 / 600 Output: Urine 300 / 300 Other: # Voids 3 Date of Last Bowel Movement 05/20/18 05/20/18 05/22/18 19:24 Clean Catch Urine Urine Culture - Preliminary No growth. 05/21/18 09:55 Blood - Line Aerobic Blood Culture - Preliminary No growth in 2 days 05/21/18 09:55 Blood - Line Anaerobic Blood Culture - Preliminary No growth in 2 days 05/21/18 10:09 Blood - Line Aerobic Blood Culture - Preliminary No growth in 2 days 05/21/18 10:09 Blood - Line Anaerobic Blood Culture - Preliminary No growth in 2 days 05/21/18 10:45 Fluid - Pleural fluid Gram Stain - Final 05/21/18 10:45 Fluid - Pleural fluid Body Fluid Culture - Preliminary No growth in 48 hours Lab - Hematology Results 05/22/18 05/23/18 05/23/18 05:00 05:10 05:10 WBC 4.4 4.0 RBC 3.21 L 3.31 L Hgb 8.2 L 8.4 L Hct 24.6 L 25.4 L MCV 76.8 L 76.7 L MCH 25.6 L 25.5 L MCHC 33.3 33.2 RDW 19.6 H 19.5 H Plt Count 276 297 MPV 7.3 7.4 Prelim Diff (Auto) Slide review pending Slide review pending Neut % (Auto) 67.6 69.2 Lymph % (Auto) 5.7 L 5.4 L [place] % (Auto) 25.8 H 24.6 H Eos % (Auto) 0.4 0.3 Baso % (Auto) 0.5 0.5 Neut # (Auto) 3.0 2.8 Lymph # (Auto) 0.3 L 0.2 L [place] # (Auto) 1.1 H 1.0 H Eos # (Auto) 0.0 0.0 Baso # (Auto) 0.0 0.0 WBC Differential Manual diff final Manual diff final Seg Neuts % (Manual) 75 H 73 H Band Neuts % (Manual) 2 Lymphocytes % (Manual) 7 L 9 Monocytes % (Manual) 15 H 17 H Metamyelocytes % (Man) 1 Myelocytes % (Man) 1 H Abs Neuts (Manual) 3.4 3.0 Differential Comment . . Platelet Estimate Normal Normal Platelet Morphology Normal Normal Dimorphic RBCs Present H Ovalocytes 1+ H Keratocytes Occ H Retic Count 2.8 2.5 Absolute Retic 88.3 83.4 Haptoglobin 522 H Lab - Chemistry Results 05/23/18 05:10 Sodium 137 Potassium 3.8 Chloride 99 Carbon Dioxide 29.8 Anion Gap 8 BUN 8 Creatinine 0.73 Estimated GFR Greater than 89 Random Glucose 89 Calcium 9.3 Total Bilirubin 0.6 AST 34 ALT 21 Alkaline Phosphatase 97 Lactate Dehydrogenase 982 H Total Protein 7.5 Albumin 2.3 L Imaging: ITS Impressions Pleurodesis 05/22/18 09:00 CONCLUSION: 1. Uncomplicated attempted TPA fibrinolysis through existing tunneled chest tube, as above. Tunnelled Catheter Removal 05/23/18 08:00 CONCLUSION: 1. Uncomplicated removal of tunneled right sided chest tube. Chest X-Ray 05/23/18 09:49 CONCLUSION: No appreciable change. Physical Exam: GENERAL: Patient is in no acute distress. HEENT: The head is atraumatic. Extraocular movements are grossly intact. Pupils reactive to light. No icterus. Oropharynx: Moist mucosa. NECK: Supple without adenopathy. LUNGS: Decreased breath sounds at the right lung field, upper and lower. Left lung is clear. HEART: Regular S1 and S2 without murmurs, rubs or gallops. ABDOMEN: Bowel sounds diminished. Soft, nontender. EXTREMITIES: No clubbing, cyanosis or edema. SKIN: No rash. NEURO: Nonfocal. Assessment and Plan - Plan IMPRESSION: Fever in patient with T-cell lymphoblastic lymphoma. The patient admitted for chemotherapy, which is placed on hold because of the fever. He does not appear toxic. Malignant pleural effusion. RECOMMENDATIONS: It is not clear whether the patient has infection as the cause of the fever. The temperature is improved. However, continue to monitor cultures. Monitor for signs of infection post chemotherapy.
--- NOTE | 2018-05-23 18:13 | P.PNONC ---
Subjective Interval history: Patient still tachycardic. Complaint of pain associated with the chest tube. Noted no output post TPA attempt yesterday. Objective Vital Signs/Intake & Output: Vital Signs 05/22/18 18:31 05/22/18 20:00 05/22/18 23:13 Temperature Pulse Rate 113 H 114 H 126 H Respiratory Rate 18 18 20 Blood Pressure 114/77 Pulse Oximetry 94 L 94 L 05/22/18 23:15 05/23/18 00:00 05/23/18 02:25 Temperature 100.5 F H Pulse Rate 125 H 120 H 102 H Respiratory Rate 22 20 Blood Pressure 120/78 Pulse Oximetry 93 L 05/23/18 04:00 05/23/18 04:02 05/23/18 07:35 Temperature 99.2 F Pulse Rate 114 H 108 H 123 H Respiratory Rate 18 17 Blood Pressure 118/82 Pulse Oximetry 95 92 L 05/23/18 08:00 05/23/18 12:00 05/23/18 13:17 Temperature 99.3 F 98.9 F Pulse Rate 134 H 128 H 131 H Respiratory Rate 18 18 18 Blood Pressure 114/83 106/89 Pulse Oximetry 94 L 97 05/23/18 15:27 05/23/18 16:00 Temperature 99.5 F Pulse Rate 122 H Respiratory Rate 18 18 Blood Pressure 118/73 Pulse Oximetry 93 L Intake & Output 05/22/18 05/23/18 05/23/18 18:59 06:59 18:59 Intake Total 600 / 600 510 / 510 Output Total 300 / 300 Balance 300 / 300 510 / 510 Weight 80.7 kg Intake: IV 510 / 510 Vepesid Inj 200 MG In NS Inj 510 / 510 500 ML @ 510 mls/hr IV.SIG Q24H BANDAR Rx#:[id number] Oral 600 / 600 Output: Urine 300 / 300 Other: # Voids 3 Date of Last Bowel Movement 05/20/18 05/20/18 Result Diagrams: 05/23/18 05:10 05/23/18 05:10 Laboratory Results: Laboratory Results - last 24 hr 05/22/18 05/23/18 05/23/18 19:24 05:10 05:10 WBC 4.0 RBC 3.31 L Hgb 8.4 L Hct 25.4 L MCV 76.7 L MCH 25.5 L MCHC 33.2 RDW 19.5 H Plt Count 297 MPV 7.4 Prelim Diff (Auto) Slide review pending Neut % (Auto) 69.2 Lymph % (Auto) 5.4 L [place] % (Auto) 24.6 H Eos % (Auto) 0.3 Baso % (Auto) 0.5 Neut # (Auto) 2.8 Lymph # (Auto) 0.2 L [place] # (Auto) 1.0 H Eos # (Auto) 0.0 Baso # (Auto) 0.0 WBC Differential Manual diff final Seg Neuts % (Manual) 73 H Lymphocytes % (Manual) 9 Monocytes % (Manual) 17 H Myelocytes % (Man) 1 H Abs Neuts (Manual) 3.0 Differential Comment . Platelet Estimate Normal Platelet Morphology Normal Dimorphic RBCs Present H Ovalocytes 1+ H Retic Count 2.5 Absolute Retic 83.4 Haptoglobin 522 H Sodium 137 Potassium 3.8 Chloride 99 Carbon Dioxide 29.8 Anion Gap 8 BUN 8 Creatinine 0.73 Estimated GFR Greater than 89 Random Glucose 89 Calcium 9.3 Total Bilirubin 0.6 AST 34 ALT 21 Alkaline Phosphatase 97 Lactate Dehydrogenase 982 H Total Protein 7.5 Albumin 2.3 L Urine Color [place] Urine Clarity Turbid H Urine pH 5.0 Ur Specific [place] 1.023 Urine Protein 30 H Urine Glucose (UA) Negative Urine Ketones Negative Urine Occult Blood Negative Urine Nitrate Negative Urine Bilirubin Negative Urine Ictotest Negative Urine Urobilinogen Less than 2 Ur Leukocyte Esterase Negative Urine RBC 3 Urine WBC 8 H Ur Squamous Epith Cells 1 Urine Bacteria Many H Urine Mucus Many H Micro UA Comment Culture indicated Ur Microscopic Review Not Reportable Urine Culture Comments Culture indicated Direct Antiglob Test 05/23/18 05:10 WBC RBC Hgb Hct MCV MCH MCHC RDW Plt Count MPV Prelim Diff (Auto) Neut % (Auto) Lymph % (Auto) [place] % (Auto) Eos % (Auto) Baso % (Auto) Neut # (Auto) Lymph # (Auto) [place] # (Auto) Eos # (Auto) Baso # (Auto) WBC Differential Seg Neuts % (Manual) Lymphocytes % (Manual) Monocytes % (Manual) Myelocytes % (Man) Abs Neuts (Manual) Differential Comment Platelet Estimate Platelet Morphology Dimorphic RBCs Ovalocytes Retic Count Absolute Retic Haptoglobin Sodium Potassium Chloride Carbon Dioxide Anion Gap BUN Creatinine Estimated GFR Random Glucose Calcium Total Bilirubin AST ALT Alkaline Phosphatase Lactate Dehydrogenase Total Protein Albumin Urine Color Urine Clarity Urine pH Ur Specific [place] Urine Protein Urine Glucose (UA) Urine Ketones Urine Occult Blood Urine Nitrate Urine Bilirubin Urine Ictotest Urine Urobilinogen Ur Leukocyte Esterase Urine RBC Urine WBC Ur Squamous Epith Cells Urine Bacteria Urine Mucus Micro UA Comment Ur Microscopic Review Urine Culture Comments Direct Antiglob Test Negative Culture Results: Microbiology 05/22/18 19:24 Urine Culture - Preliminary Clean Catch Urine No growth. 05/21/18 09:55 Aerobic Blood Culture - Preliminary Blood - Line No growth in 2 days Anaerobic Blood Culture - Preliminary No growth in 2 days 05/21/18 10:09 Aerobic Blood Culture - Preliminary Blood - Line No growth in 2 days Anaerobic Blood Culture - Preliminary No growth in 2 days 05/21/18 10:45 Gram Stain - Final Fluid - Pleural fluid Body Fluid Culture - Preliminary No growth in 48 hours Imaging Studies: Impressions Tunnelled Catheter Removal 05/23/18 08:00 CONCLUSION: 1. Uncomplicated removal of tunneled right sided chest tube. Chest X-Ray 05/23/18 09:49 CONCLUSION: No appreciable change. Medications: Active Medications Generic Name Dose Route Start Last Admin Trade Name Freq PRN Reason Stop Dose Admin Acetaminophen 650 mg 05/21/18 08:52 05/23/18 16:50 Tylenol PO 650 mg Q4H PRN Administration PAIN SCALE 0-3 OR TEMP> 100.5F Albuterol 1 ampul 05/21/18 14:11 05/23/18 13:16 Duoneb Neb (Prn) NEB 1 ampul Q2HR NEB PRN Administration shortness of breath or wheezin Enoxaparin Sodium 40 mg 05/21/18 09:00 05/23/18 11:25 Lovenox Inj SQ 40 mg Q24H BANDAR Administration Etoposide 200 mg/ Sodium 510 mls @ 510 mls/hr 05/23/18 14:00 05/23/18 16:48 Chloride IV.SIG 05/25/18 14:59 Infused Q24H BANDAR Infusion Lorazepam 0.5 mg 05/21/18 08:52 05/23/18 08:23 Ativan PO 0.5 mg DAILY PRN Administration ANXIETY Morphine Sulfate 8 mg 05/22/18 16:52 05/23/18 16:51 Morphine Inj IV.PUSH 8 mg Q3HR BANDAR Administration Oxycodone HCl 10 mg 05/21/18 08:52 05/21/18 10:00 Roxicodone PO 10 mg Q3H PRN Administration BREAKTHROUGH PAIN Senna/Docusate Sodium 1 tab 05/23/18 10:00 05/23/18 11:27 Naa-Colace PO 1 tab BID BANDAR Administration Sodium Chloride 0 ml 05/21/18 09:00 05/23/18 11:18 Ns Flush IV.FLUSH 10 ml DAILY BANDAR Administration Objective Remarks: GENERAL: Well-nourished, well-developed patient. SKIN: Warm and dry. Multiple tattoos. HEAD: Normocephalic. Alopecia. EYES: No scleral icterus. No injection or drainage. NECK: Supple, trachea midline. No JVD or lymphadenopathy. LYMPHATIC: No adenopathy. Right chest wall triple lumen catheter. CARDIOVASCULAR: Tachycardia. RESPIRATORY: Decreased breath sounds in right lung field. Left lung clear. GASTROINTESTINAL: Abdomen soft, non-tender, nondistended. EXTREMITIES: No cyanosis, or edema. MUSCULOSKELETAL: Adequate muscle tone. NEUROLOGICAL: No obvious focal deficit. Awake, alert, and oriented x3. PSYCHIATRIC: Appropriate mood and affect; insight and judgment normal. Assessment/Plan - Plan Mr. Turner is a 43-year-old man with a history of T-cell lymphoma. He is admitted directly for the next cycle of ICE chemotherapy. His last cycle of chemotherapy was complicated by a neutropenic fever. Plan: 1. T-cell lymphoma, admitted for next cycle of ice chemotherapy. Blood cultures remain negative. An infectious source for fever identified. Chemotherapy to start today. Noted in light of his previous history of neutropenic fever, 20% dose reduction is recommended. 2. Fevers. Suspect related to his T-cell lymphoma. 3. Shortness of breath, chest x-ray opacification of the right lung. Noted some output in response post TPA right Pleurx catheter. The right chest wall Pleurx catheter was removed. The case was discussed with TREY Canela who is encouraged by the output. The patient received therapeutic benefit and alleviate some symptoms. 4. Tachycardia, echocardiogram was negative for tamponade. Pleural effusion is small. 5. Anxiety, patient appears anxious and emotional at times. Tearful during conversation. Likely twofold, related to [facility] cancer diagnosis/treatment and physical debility from disease process. He may benefit from psychiatric consult after acute condition is controlled.
[2018-05-23] MEDS ORDERED: Influenza (Quadrivalent) Vaccine 0.5 ML Syringe IM ONE (19:30)
[2018-05-24] MEDS: Morphine Sulfate Inj 8 MG/ML Vial IV.PUSH SCH ×8 (02:04→23:00)
[2018-05-24 07:18] LABS: Hematocrit 23.5 % (39.0-51.0); Mean Corpuscular HGB Conc 33.8 % (32.0-36.0); Mean Corpuscular Hemoglobin 25.8 pg (27.0-34.0); Mean Corpuscular Volume 76.3 fL (80.0-100.0); Mean Platelet Volume 7.2 fL (7.0-11.0); Platelet Count 232 th/mm3 (150-450); Red Blood Count 3.08 mil/mm3 (4.50-5.90); Red Cell Distribution Width 20.2 % (11.6-17.2); White Blood Count 5.1 th/mm3 (4.0-11.0)
[2018-05-24 07:38] LABS: Alanine Aminotransferase 17 U/L (12-78); Albumin 1.9 g/dL (3.4-5.0); Anion Gap 9 meq/L (5-15); Aspartate Aminotransferase 92 U/L (15-37); Blood Urea Nitrogen 15 mg/dL (7-18); Calcium 8.1 mg/dL (8.5-10.1); Carbon Dioxide 26.3 meq/L (21.0-32.0); Chloride 97 meq/L (98-107); Glomerular Filtration Rate Greater Than 89 mL/min (>89); Glucose,Random 160 mg/dL (74-106); Potassium 4.2 meq/L (3.5-5.1); Sodium 132 meq/L (136-145)
[2018-05-24 07:48] LABS: Alkaline Phosphatase 81 U/L (45-117)
[2018-05-24 07:49] LABS: Lactate Dehydrogenase 2912 U/L (87-241)
[2018-05-24] MEDS: Senna/Docusate Sodium 8.6/50 MG Tablet PO SCH ×2 (08:00→20:26)
[2018-05-24] MEDS: Enoxaparin Inj 40 MG/0.4 ML Syringe SQ SCH (08:00)
--- NOTE | 2018-05-24 10:06 | P.PNONC ---
Subjective Interval history: Day #2 chemo ICE. Afebrile T-max 100.0 F. Patient lying in bed, no acute distress. He states "I am unable to get this stuff up" he feels like he should be able to cough up phlegm and is unable. He denies any dyspnea at this time. Tenderness to RUQ from PleurX procedure. Denies any reactions to Day #1 chemo yesterday. Objective Vital Signs/Intake & Output: Vital Signs 05/23/18 12:00 05/23/18 13:17 05/23/18 15:27 Temperature 98.9 F Pulse Rate 128 H 131 H Respiratory Rate 18 18 18 Blood Pressure 106/89 Pulse Oximetry 97 05/23/18 16:00 05/23/18 17:00 05/23/18 19:11 Temperature 99.5 F Pulse Rate 122 H 101 H Respiratory Rate 18 20 24 Blood Pressure 118/73 Pulse Oximetry 93 L 92 L 05/23/18 20:00 05/23/18 23:31 05/24/18 00:00 Temperature 98.6 F 98.5 F Pulse Rate 120 H 105 H 121 H Respiratory Rate 16 20 17 Blood Pressure 120/74 111/69 Pulse Oximetry 94 L 98 05/24/18 03:46 05/24/18 04:00 05/24/18 08:06 Temperature 100 F H Pulse Rate 99 H 128 H 120 H Respiratory Rate 20 17 18 Blood Pressure 120/77 Pulse Oximetry 96 95 Intake & Output 05/23/18 05/24/18 05/24/18 18:59 06:59 18:59 Intake Total 1110 / 1110 960 / 960 Output Total 900 / 900 925 / 925 Balance 210 / 210 35 / 35 Intake: IV 510 / 510 Vepesid Inj 200 MG In NS Inj 510 / 510 500 ML @ 510 mls/hr IV.SIG Q24H BANDAR Rx#:[id number] Oral 600 / 600 960 / 960 Output: Urine 900 / 900 925 / 925 Other: Date of Last Bowel Movement 05/20/18 Result Diagrams: 05/24/18 05:00 05/24/18 05:00 Laboratory Results: Laboratory Results - last 24 hr 05/24/18 05/24/18 05:00 05:00 WBC 5.1 RBC 3.08 L Hgb 8.0 L Hct 23.5 L MCV 76.3 L MCH 25.8 L MCHC 33.8 RDW 20.2 H Plt Count 232 MPV 7.2 Prelim Diff (Auto) Manual diff required Differential Comment . Sodium 132 L Potassium 4.2 Chloride 97 L Carbon Dioxide 26.3 Anion Gap 9 BUN 15 Creatinine 0.67 Estimated GFR Greater than 89 Random Glucose 160 H Calcium 8.1 L D Total Bilirubin 0.5 AST 92 H ALT 17 Alkaline Phosphatase 81 Lactate Dehydrogenase 2912 H Total Protein 7.0 Albumin 1.9 L Culture Results: Microbiology 05/21/18 10:45 Gram Stain - Final Fluid - Pleural fluid Body Fluid Culture - Final No growth in 72 hours (aerobically and anaerobically) 05/22/18 19:24 Urine Culture - Preliminary Clean Catch Urine No growth. 05/21/18 09:55 Aerobic Blood Culture - Preliminary Blood - Line No growth in 2 days Anaerobic Blood Culture - Preliminary No growth in 2 days 05/21/18 10:09 Aerobic Blood Culture - Preliminary Blood - Line No growth in 2 days Anaerobic Blood Culture - Preliminary No growth in 2 days Imaging Studies: Impressions Tunnelled Catheter Removal 05/23/18 08:00 CONCLUSION: 1. Uncomplicated removal of tunneled right sided chest tube. Chest X-Ray 05/23/18 09:49 CONCLUSION: No appreciable change. Medications: Active Medications Generic Name Dose Route Start Last Admin Trade Name Freq PRN Reason Stop Dose Admin Acetaminophen 650 mg 05/21/18 08:52 05/23/18 16:50 Tylenol PO 650 mg Q4H PRN Administration PAIN SCALE 0-3 OR TEMP> 100.5F Albuterol 1 ampul 05/21/18 14:11 05/24/18 08:05 Duoneb Neb (Prn) NEB 1 ampul Q2HR NEB PRN Administration shortness of breath or wheezin Enoxaparin Sodium 40 mg 05/21/18 09:00 05/24/18 08:00 Lovenox Inj SQ 40 mg Q24H BANDAR Administration Lorazepam 0.5 mg 05/21/18 08:52 05/23/18 08:23 Ativan PO 0.5 mg DAILY PRN Administration ANXIETY Morphine Sulfate 8 mg 05/22/18 16:52 05/24/18 07:47 Morphine Inj IV.PUSH 8 mg Q3HR BANDAR Administration Oxycodone HCl 10 mg 05/21/18 08:52 05/21/18 10:00 Roxicodone PO 10 mg Q3H PRN Administration BREAKTHROUGH PAIN Senna/Docusate Sodium 1 tab 05/23/18 10:00 05/24/18 08:00 Naa-Colace PO 1 tab BID BANDAR Administration Sodium Chloride 0 ml 05/21/18 09:00 05/24/18 08:00 Ns Flush IV.FLUSH 10 ml DAILY BANDAR Administration Objective Remarks: GENERAL: Chronically ill-appearing male patient, in no acute distress. SKIN: Pale, warm and dry. HEAD: Normocephalic. EYES: No scleral icterus. No injection or drainage. NECK: Supple, trachea midline. CARDIOVASCULAR: + Tachycardic. RESPIRATORY: Left breath sounds harsh. Right upper breath sounds present, remainder of right absent. Nonlabored at rest. Guaze drsg minimal drainage. GASTROINTESTINAL: Abdomen soft, nondistended, tender RUQ to palpation. EXTREMITIES: No cyanosis, or edema. MUSCULOSKELETAL: Adequate muscle tone. NEUROLOGICAL: No obvious focal deficit. Awake, alert, and oriented x3. PSYCHIATRIC: Flat affect. Assessment/Plan - Plan Mr. Turner is a 43-year-old man with a history of T-cell lymphoma. He is admitted directly for the next cycle of ICE chemotherapy. His last cycle of chemotherapy was complicated by a neutropenic fever. Plan: 1. T-cell lymphoma, admitted for next cycle of ice chemotherapy, presented with neutropenic fevers. Blood cultures remain negative. An infectious source for fever has not been identified. ICE Chemotherapy started on 05/23/18. 20% dose reduction is recommended. 20% dose reduction ordered for days 2 & 3. RN aware. 2. Fevers, resolved at this time. Likely secondary to his T-cell lymphoma. 3. Shortness of breath, chest x-ray opacification of the right lung. Status post TPA right Pleurx catheter and then removal. Dressing with minimal yellow drainage. 4. Tachycardia, echocardiogram was negative for tamponade. Pleural effusion is small. 5. Continue day #2 chemotherapy with 20% dose reduction. Discussed with RN and charger tester, Awilda, that chemotherapy will be running tonight and a chemo certified nurse will be needed. - Attending Statement The exam, history, and the medical decision-making described in the above note were completed with the assistance of the mid-level provider. I reviewed and agree with the findings presented. I attest that I had a [id number] encounter with the patient on the same day, and personally performed and documented my assessment and findings in the medical record. The right lung has no sounds. Clinically he is stable. His chemotherapy orders have been adjusted to allow for a 20% decrease in the dose of carboplatin , ifosfamide, and SURVEY RESEARCH PROFESSOR-16.
[2018-05-24 11:16] LABS: Dimorphic RBC Present; Lymphocytes 1 % (9-44); Monocytes 7 % (0-8); Myelocytes 1 % (0-0); Ovalocytes 1+; Platelet Estimate Normal (Normal); Platelet Morphology Normal (Normal)
[2018-05-24] MEDS: Sod Chloride 0.9% Inj 1,000 ML IV.SIG SCH ×3 (11:16→22:19)
[2018-05-24] MEDS ORDERED: Granisetron Inj 1 MG, Dexamethasone Inj 20 MG in Sodium Chlor 0.9% Inj 50 ML IV.SIG SCH ×4 (13:30)
[2018-05-24] MEDS ORDERED: CARBOPLATIN IV.SIG ONE (15:00)
[2018-05-24] MEDS ORDERED: SODIUM CHLOR 0.9% IV.SIG ONE (15:00)
[2018-05-24] MEDS: ETOPOSIDE IV.SIG SCH (15:09)
[2018-05-24] MEDS: SODIUM CHLOR 0.9% IV.SIG SCH (15:09)
[2018-05-24] MEDS ORDERED: SOD CHLORIDE 0.9% IV.SIG ONE (16:00)
[2018-05-24] MEDS ORDERED: MESNA IV.SIG ONE (16:00)
[2018-05-24] MEDS ORDERED: IFOSFAMIDE IV.SIG ONE (16:00)
[2018-05-25] MEDS: Morphine Sulfate Inj 8 MG/ML Vial IV.PUSH SCH ×7 (01:57→20:07)
[2018-05-25 04:58] LABS: Baso % (Auto) 0.1 % (0.0-2.0); Hematocrit 19.5 % (39.0-51.0); Hemoglobin 6.6 gm/dL (13.0-17.0); Lymph % (Auto) 1.5 % (9.0-44.0); Mean Corpuscular HGB Conc 33.9 % (32.0-36.0); Mean Corpuscular Volume 76.7 fL (80.0-100.0); Mean Platelet Volume 7.2 fL (7.0-11.0); Mono # (Auto) 0.1 th/mm3 (0.0-0.9); Mono % (Auto) 4.4 % (0.0-8.0); Neut # (Auto) 3.1 th/mm3 (1.8-7.7); Platelet Count 161 th/mm3 (150-450); Red Blood Count 2.55 mil/mm3 (4.50-5.90); Red Cell Distribution Width 19.9 % (11.6-17.2); White Blood Count 3.3 th/mm3 (4.0-11.0)
[2018-05-25] MEDS: Sod Chloride 0.9% Inj 1,000 ML IV.SIG SCH ×2 (05:01→12:46)
[2018-05-25 05:41] LABS: Alanine Aminotransferase 16 U/L (12-78); Albumin 1.7 g/dL (3.4-5.0); Alkaline Phosphatase 80 U/L (45-117); Anion Gap 6 meq/L (5-15); Aspartate Aminotransferase 56 U/L (15-37); Blood Urea Nitrogen 14 mg/dL (7-18); Calcium 7.9 mg/dL (8.5-10.1); Carbon Dioxide 25.9 meq/L (21.0-32.0); Chloride 105 meq/L (98-107); Glomerular Filtration Rate Greater Than 89 mL/min (>89); Glucose,Random 206 mg/dL (74-106); Lactate Dehydrogenase 2853 U/L (87-241); Potassium 3.9 meq/L (3.5-5.1); Sodium 137 meq/L (136-145); Total Protein 6.5 g/dL (6.4-8.2)
[2018-05-25] MEDS: Senna/Docusate Sodium 8.6/50 MG Tablet PO SCH ×2 (08:06→20:15)
[2018-05-25] MEDS: Enoxaparin Inj 40 MG/0.4 ML Syringe SQ SCH (08:07)
[2018-05-25] MEDS ORDERED: Acetaminophen 325 MG Tablet PO PRN (08:12)
[2018-05-25] MEDS ORDERED: Sodium Chlor 0.9% Inj 250 ML IV.SIG SCH (09:00)
--- NOTE | 2018-05-25 09:17 | P.PNONC ---
Subjective Interval history: Patient in good spirits today. He states he is feeling great. Denies any shortness of breath. He feels his breathing is the best it has been in a long time. Day 3 ice chemotherapy, no adverse reactions. Tolerating well. Patient eager to go home once chemotherapy is complete, even if it is late this evening. He is aware that I do not know what time his chemotherapy will complete, however we will do our best to accommodate his wishes. Objective Vital Signs/Intake & Output: Vital Signs 05/24/18 11:15 05/24/18 12:01 05/24/18 12:41 Temperature 99.5 F Pulse Rate 129 H 126 H 133 H Respiratory Rate 24 20 18 Blood Pressure 117/88 120/75 Pulse Oximetry 94 L 93 L 05/24/18 16:00 05/24/18 16:14 05/24/18 20:00 Temperature 99.0 F 98.3 F Pulse Rate 114 H 114 H 105 H Respiratory Rate 30 H 18 16 Blood Pressure 110/72 119/81 Pulse Oximetry 95 97 05/24/18 23:16 05/24/18 23:32 05/25/18 00:00 Temperature 97.8 F Pulse Rate 92 H 100 H Respiratory Rate 16 15 Blood Pressure 117/77 Pulse Oximetry 96 97 05/25/18 04:00 05/25/18 07:58 Temperature 97.8 F Pulse Rate 96 H 103 H Respiratory Rate 15 18 Blood Pressure 109/64 Pulse Oximetry 94 L Intake & Output 05/24/18 05/25/18 05/25/18 18:59 06:59 18:59 Intake Total 1602 / 1602 2490 / 2490 Output Total 850 / 850 1900 / 1900 Balance 752 / 752 590 / 590 Weight 85.2 kg Intake: IV 1366 / 1366 1790 / 1790 Paraplatin Inj 600 MG In NS Inj 310 / 310 250 ML @ 620 mls/hr IV.SIG ONCE ONE Rx#:[id number] Kytril Inj 1 MG Decadron Inj 20 56 / 56 MG In NS Inj 50 ML @ 336 mls/ hr IV.SIG Q24H BANDAR Rx#:[id number] Ifex Inj 8,000 MG Mesnex Inj 8, 540 / 540 000 MG In NS Inj 1,000 ML @ 45 mls/hr IV.SIG ONCE ONE Rx#: [id number] NS Inj 1,000 ML @ 150 mls/hr IV 1000 / 1000 1250 / 1250 .SIG .Q6H40M BANDAR Rx#:[id number] Oral 236 / 236 700 / 700 Output: Urine 850 / 850 1900 / 1900 Other: Date of Last Bowel Movement 05/23/18 Result Diagrams: 05/25/18 04:30 05/25/18 04:30 Laboratory Results: Laboratory Results - last 24 hr 05/24/18 05/24/18 05/25/18 05:00 12:40 04:30 WBC 3.3 L RBC 2.55 L Hgb 6.6 L* Hct 19.5 L* MCV 76.7 L MCH 26.0 L MCHC 33.9 RDW 19.9 H Plt Count 161 D MPV 7.2 Prelim Diff (Auto) Slide review pending Neut % (Auto) 94.0 H Lymph % (Auto) 1.5 L [place] % (Auto) 4.4 Eos % (Auto) 0.0 Baso % (Auto) 0.1 Neut # (Auto) 3.1 Lymph # (Auto) 0.0 L [place] # (Auto) 0.1 Eos # (Auto) 0.0 Baso # (Auto) 0.0 WBC Differential Manual diff final Seg Neuts % (Manual) 89 H Band Neuts % (Manual) 2 Lymphocytes % (Manual) 1 L Monocytes % (Manual) 7 Myelocytes % (Man) 1 H Abs Neuts (Manual) 4.7 Differential Comment . Platelet Estimate Normal Platelet Morphology Normal Dimorphic RBCs Present H Basophilic Stippling Faint H Ovalocytes 1+ H Sodium Potassium Chloride Carbon Dioxide Anion Gap BUN Creatinine Estimated GFR POC Glucose 191 H Random Glucose Calcium Total Bilirubin AST ALT Alkaline Phosphatase Lactate Dehydrogenase Total Protein Albumin 05/25/18 04:30 WBC RBC Hgb Hct MCV MCH MCHC RDW Plt Count MPV Prelim Diff (Auto) Neut % (Auto) Lymph % (Auto) [place] % (Auto) Eos % (Auto) Baso % (Auto) Neut # (Auto) Lymph # (Auto) [place] # (Auto) Eos # (Auto) Baso # (Auto) WBC Differential Seg Neuts % (Manual) Band Neuts % (Manual) Lymphocytes % (Manual) Monocytes % (Manual) Myelocytes % (Man) Abs Neuts (Manual) Differential Comment Platelet Estimate Platelet Morphology Dimorphic RBCs Basophilic Stippling Ovalocytes Sodium 137 Potassium 3.9 Chloride 105 D Carbon Dioxide 25.9 Anion Gap 6 BUN 14 Creatinine 0.53 L Estimated GFR Greater than 89 POC Glucose Random Glucose 206 H Calcium 7.9 L Total Bilirubin 0.3 AST 56 H ALT 16 Alkaline Phosphatase 80 Lactate Dehydrogenase 2853 H Total Protein 6.5 Albumin 1.7 L Culture Results: Microbiology 05/22/18 19:24 Urine Culture - Final Clean Catch Urine No growth in 48 hours 05/21/18 09:55 Aerobic Blood Culture - Preliminary Blood - Line No growth in 3 days Anaerobic Blood Culture - Preliminary No growth in 3 days 05/21/18 10:09 Aerobic Blood Culture - Preliminary Blood - Line No growth in 3 days Anaerobic Blood Culture - Preliminary No growth in 3 days 05/21/18 10:45 Gram Stain - Final Fluid - Pleural fluid Body Fluid Culture - Final No growth in 72 hours (aerobically and anaerobically) Medications: Active Medications Generic Name Dose Route Start Last Admin Trade Name Freq PRN Reason Stop Dose Admin Acetaminophen 650 mg 05/21/18 08:52 05/23/18 16:50 Tylenol PO 650 mg Q4H PRN Administration PAIN SCALE 0-3 OR TEMP> 100.5F Albuterol 1 ampul 05/21/18 14:11 05/25/18 07:56 Duoneb Neb (Prn) NEB 1 ampul Q2HR NEB PRN Administration shortness of breath or wheezin Enoxaparin Sodium 40 mg 05/21/18 09:00 05/25/18 08:07 Lovenox Inj SQ 40 mg Q24H BANDAR Administration Ifosfamide 8,000 mg/ [place] 8, 1,080 mls @ 45 mls/hr 05/24/18 16:00 05/25/18 05:34 000 mg/ Sodium Chloride IV.SIG 05/25/18 15:59 45 mls/hr ONCE ONE Infusion Etoposide 160 mg/ Sodium 508 mls @ 508 mls/hr 05/24/18 14:00 05/24/18 15:09 Chloride IV.SIG 05/25/18 14:59 508 mls/hr Q24H BANDAR Administration Sodium Chloride 1,000 mls @ 150 mls/hr 05/24/18 19:00 05/25/18 05:01 Ns Inj IV.SIG 150 mls/hr .Q6H40M BANDAR Administration Lorazepam 0.5 mg 05/21/18 08:52 05/23/18 08:23 Ativan PO 0.5 mg DAILY PRN Administration ANXIETY Morphine Sulfate 8 mg 05/22/18 16:52 05/25/18 08:07 Morphine Inj IV.PUSH 8 mg Q3HR BANDAR Administration Oxycodone HCl 10 mg 05/21/18 08:52 05/21/18 10:00 Roxicodone PO 10 mg Q3H PRN Administration BREAKTHROUGH PAIN Prochlorperazine Edisylate 10 mg 05/21/18 08:52 05/24/18 11:15 Compazine Inj IV.PUSH 10 mg Q4H PRN Administration NAUSEA OR VOMITING Senna/Docusate Sodium 1 tab 05/23/18 10:00 05/25/18 08:06 Naa-Colace PO 1 tab BID BANDAR Administration Sodium Chloride 0 ml 05/21/18 09:00 05/24/18 08:00 Ns Flush IV.FLUSH 10 ml DAILY BANDAR Administration Objective Remarks: GENERAL: Chronically ill-appearing male patient, in no acute distress. SKIN: Pale, warm and dry. HEAD: Normocephalic. EYES: No scleral icterus. No injection or drainage. NECK: Supple, trachea midline. CARDIOVASCULAR: Regular rate and rhythm. RESPIRATORY: Posterior left breath sounds harsh, clear. Posterior right absent , Anterior right upper present in clear. Nonlabored at rest. GASTROINTESTINAL: Abdomen soft, nondistended, nontender. EXTREMITIES: No cyanosis, or edema. MUSCULOSKELETAL: Adequate muscle tone. NEUROLOGICAL: No obvious focal deficit. Awake, alert, and oriented x3. Assessment/Plan - Plan Mr. Turner is a 43-year-old man with a history of T-cell lymphoma. He is admitted directly for the next cycle of ICE chemotherapy. His last cycle of chemotherapy was complicated by a neutropenic fever. Plan: 1. T-cell lymphoma, admitted for next cycle of ice chemotherapy, presented with neutropenic fevers. Blood cultures remain negative. An infectious source for fever has not been identified. ICE Chemotherapy started on 05/23/18, with 20 % dose reduction ordered for days 2 & 3. 2. Fevers, resolved at this time. Likely secondary to his T-cell lymphoma. 3. Shortness of breath, currently resolved.S/P Pleurx drain removal this hospitalization. 4. Tachycardia, currently resolved. 5. Hemoglobin 6.6 g/dL today. Will transfuse 1 unit irradiated PRBCs. 6. Continue day #3 chemotherapy with 20% dose reduction. Patient is eager to discharge home once chemotherapy is complete. He has been afebrile, no source of infection was found for fevers, thought to be likely secondary to T-cell lymphoma. His Pleurx catheter was removed during this hospitalization. Subjectively the patient feels great today, he is tolerating chemotherapy well. He denies any shortness of breath, stating that his breathing is the best it has been in quite some time. Discussed chemo with his RN, unsure what time it will complete and it may be late. The patient is aware that we will try to accommodate his wishes for discharge home, however this may be late or in the a.m. - Attending Statement The exam, history, and the medical decision-making described in the above note were completed with the assistance of the mid-level provider. I reviewed and agree with the findings presented. I attest that I had a [id number] encounter with the patient on the same day, and personally performed and documented my assessment and findings in the medical record. He tolerated the chemotherapy well. He feels better today than yesterday. He will complete the DIRECTOR OF NATIONAL SALES-16 this evening and following this would like to go home. He received 1 unit of packed cells. He will be discharged home this evening and follow-up with Dr. Leigh. He will be due for a Neulasta shot on Saturday. I gave him a prescription for morphine sulfate 30 mg p.o. twice daily 14 tablets. Lorna avila.
[2018-05-25 11:16] LABS: Ovalocytes 1+
--- NOTE | 2018-05-25 14:08 | P.DS ---
Date of admission: 05/21/18 08:11 Primary care physician: Bienvenido Guzman MD Brief History from admission: Mr. Turner is a 43-year-old man with a history of T-cell lymphoma. He is admitted directly for the next cycle of ICE chemotherapy. His last cycle of chemotherapy was complicated by a neutropenic fever. Upon admission the patient was with complaints of fevers times 2 days. No infectious source was found, fevers likely secondary to lymphoma. Patient received ice chemotherapy. He tolerated well and had no adverse reactions. His breathing has improved. Overall subjectively stating he feels much better. DS: Diagnosis - Discharge Diagnosis (1) Pleural effusion Status: Acute (2) Lymphoma Status: Chronic DS: Medications - Discharge Medications Prescriptions: morphine 30 mg PO BID PRN #14 mg PRN Reason: Pain DS: Summary Hospital Course: Mr. Turner is a 43-year-old man with a history of T-cell lymphoma. He is admitted directly for the next cycle of ICE chemotherapy. His last cycle of chemotherapy was complicated by a neutropenic fever. Upon admission the patient was with complaints of fevers times 2 days. No infectious source was found, fevers likely secondary to lymphoma. Fevers resolved. His Pleurx catheter was removed. Patient received ice chemotherapy. He tolerated well and had no adverse reactions. His breathing has improved. Overall subjectively stating he feels much better. He received 1 unit PRBCs today for hemoglobin of 6.6. Plan to discharge after completion of chemotherapy and hydration this evening. He will call the clinic in the a.m. to set up his appointment for [facility] on Saturday. He will also follow-up in the clinic for blood work and will see Dr. Leigh within 1 week. - Time Spent with Patient Total time spent providing and/or coordinating discharge services: Greater than 30 minutes - Quality: VTE Deep Vein Thrombosis/Pulmonary Embolism Present on Admission: No Exam Vital signs: Vital Signs 05/24/18 16:00 05/24/18 16:14 05/24/18 20:00 Temperature 99.0 F 98.3 F Pulse Rate 114 H 114 H 105 H Respiratory Rate 30 H 18 16 Blood Pressure 110/72 119/81 Pulse Oximetry 95 97 05/24/18 23:16 05/24/18 23:32 05/25/18 00:00 Temperature 97.8 F Pulse Rate 92 H 100 H Respiratory Rate 16 15 Blood Pressure 117/77 Pulse Oximetry 96 97 05/25/18 04:00 05/25/18 07:58 05/25/18 08:00 Temperature 97.8 F 97.6 F Pulse Rate 96 H 103 H 102 H Respiratory Rate 15 18 18 Blood Pressure 109/64 113/70 Pulse Oximetry 94 L 99 05/25/18 12:02 05/25/18 12:48 05/25/18 13:45 Temperature 97.9 F 98.1 F Pulse Rate 112 H 115 H 107 H Respiratory Rate 18 20 20 Blood Pressure 117/68 114/64 Pulse Oximetry 96 95 Intake & Output 05/24/18 05/25/18 05/25/18 18:59 06:59 18:59 Intake Total 2142 / 2142 2490 / 2490 1000 / 1000 Output Total 850 / 850 1900 / 1900 Balance 1292 / 1292 590 / 590 1000 / 1000 Weight 85.2 kg Intake: IV 1906 / 1906 1790 / 1790 1000 / 1000 Paraplatin Inj 600 MG In NS Inj 310 / 310 250 ML @ 620 mls/hr IV.SIG ONCE ONE Rx#:[id number] Vepesid Inj 160 MG In NS Inj 540 / 540 500 ML @ 508 mls/hr IV.SIG Q24H [facility] Rx#:[id number] Kytril Inj 1 MG Decadron Inj 20 56 / 56 MG In NS Inj 50 ML @ 336 mls/ hr IV.SIG Q24H [facility] Rx#:[id number] Ifex Inj 8,000 MG Mesnex Inj 8, 540 / 540 000 MG In NS Inj 1,000 ML @ 45 mls/hr IV.SIG ONCE ONE Rx#: [id number] NS Inj 1,000 ML @ 150 mls/hr IV 1000 / 1000 1250 / 1250 1000 / 1000 .SIG .Q6H40M [facility] Rx#:[id number] Oral 236 / 236 700 / 700 Intake (Blood Product) Amt 0 / 0 Rbc As-3 Leukoreduced Irrad 0 / 0 Unit [id number] Output: Urine 850 / 850 1900 / 1900 Other: Date of Last Bowel Movement 05/23/18 05/23/18 Narrative: See progress note dated 05/25/2018 Results Procedures completed during hospitalization: Pleurx catheter removed. Labs on day of discharge: Labs from last 24 hours 05/25/18 05/25/18 05/25/18 10:40 04:30 04:30 WBC 3.3 L RBC 2.55 L Hgb 6.6 L* Hct 19.5 L* MCV 76.7 L MCH 26.0 L MCHC 33.9 RDW 19.9 H Plt Count 161 D MPV 7.2 Prelim Diff (Auto) Slide review pending Neut % (Auto) 94.0 H Lymph % (Auto) 1.5 L [place] % (Auto) 4.4 Eos % (Auto) 0.0 Baso % (Auto) 0.1 Neut # (Auto) 3.1 Lymph # (Auto) 0.0 L [place] # (Auto) 0.1 Eos # (Auto) 0.0 Baso # (Auto) 0.0 WBC Differential . Diff Scan Auto diff confirmed Differential Comment . Ovalocytes 1+ H Keratocytes Occ H Sodium 137 Potassium 3.9 Chloride 105 D Carbon Dioxide 25.9 Anion Gap 6 BUN 14 Creatinine 0.53 L Estimated GFR Greater than 89 Random Glucose 206 H Calcium 7.9 L Total Bilirubin 0.3 AST 56 H ALT 16 Alkaline Phosphatase 80 Lactate Dehydrogenase 2853 H Total Protein 6.5 Albumin 1.7 L Blood Type A Positive Antibody Screen Negative MTS Gel Crossmatch See Detail Preliminary micro results at discharge 05/21/18 09:55 Aerobic Blood Culture - Preliminary Blood - Line No growth in 4 days Anaerobic Blood Culture - Preliminary No growth in 4 days 05/21/18 10:09 Aerobic Blood Culture - Preliminary Blood - Line No growth in 4 days Anaerobic Blood Culture - Preliminary No growth in 4 days - Impressions ITS Impressions Pleurodesis 05/22/18 09:00 CONCLUSION: 1. Uncomplicated attempted TPA fibrinolysis through existing tunneled chest tube, as above. Tunnelled Catheter Removal 05/23/18 08:00 CONCLUSION: 1. Uncomplicated removal of tunneled right sided chest tube. Chest X-Ray 05/23/18 09:49 CONCLUSION: No appreciable change. Discharge Plan - Discharge Disposition Patient Disposition: Discharge Home - Discharge Condition Condition: Stable - Discharge Order Discharge Orders: Discharge Order (Routine); Ordered 05/25/18 Ordered By: Jen Karimi - Discharge Details Anticipated Discharge Date: 05/25/18 Discharge Comment: Discharge after chemotherapy and hydration is completed - Physicians Team Primary Care Provider: Bienvenido Guzman Attending Provider: Aysha Leigh Other Providers: Bienvenido Tinsley MD ; Sofia Macias MD ; Tyrese Goodwin MD - Rxs /Orders / Referrals /Forms Prescriptions: New morphine 30 mg Tablet 30 mg PO BID PRN (Reason: Pain) Qty: 14 Continue acetaminophen 325 mg Tablet 650 mg PO Q6H PRN (Reason: Temperature > 101 F) RF: 0 albuterol sulfate 90 mcg/actuation Hfa Aerosol Inhaler 2 puff Inhalation Q4-6H PRN (Reason: Shortness Of Breath Or Wheezing) ipratropium-albuterol 0.5 mg-3 mg(2.5 mg base)/3 mL Solution For Nebulization 1 amp NEB Q2HR NEB PRN (Reason: wheezing/SOB) RF: 0 sennosides-docusate sodium [Senna Plus] 8.6-50 mg Tablet 2 tab PO BID Qty: 120 RF: 0 Discontinued ceftriaxone 2 gram Recon Soln 2,000 mg IV Q24H RF: 0 prednisone 10 mg tablet 5 mg PO DAILY Referrals: Bienvenido Guzman MD [Primary Care Provider] - See Instructions - Discharge Instructions Additional Instructions: Call oncology center on 05/26/18 to get appointment for neupogen injection on , lab f/u and arrange appointment to see Dr Leigh. Call immediately for temperature greater than 100.4 F.
[2018-05-25] MEDS ORDERED: Granisetron 1 MG/ML Vial IV.PUSH ONE (14:30)
[2018-05-25 16:31] VITALS: RESP 20
[2018-05-25] MEDS: ETOPOSIDE IV.SIG SCH (19:42)
[2018-05-25] MEDS: SODIUM CHLOR 0.9% IV.SIG SCH (19:42)
[2018-05-25 20:19] VITALS: O2SAT 95
[2018-05-25 21:41] VITALS: BP 126/84; TEMP 97.9
[2018-05-25 22:53] VITALS: PULSE 117
== END 2018-05-25 21:29 | disposition home or self-care (01) | DRG 840 ==
LOC: HCIN 08:11
PROVIDERS: ADMIT Internal Medicine Hematology & Oncology; ATTEND Internal Medicine Hematology & Oncology
CPT/HCPCS: 32005; 32552; 32560; 32561; 32999; 36430; 71010; 71020; 71045; 71046; 80053; 81001; 82948; 82962; 83010; 83615; 85025; 85044; 85610; 85730; 86850; 86880; 86900; 86901; 86923; 87040; 87070; 87086; 87205; 88112; 88305; 89051; 93306; 94150; 94640; 94664; 94665; C1018; C1769; J0780; J1100; J1626; J1650; J2060; J2270; J2997; J7030; J7040; J7050; J9045; J9181; J9208; J9209; P9040